=== PATIENT | female | born 1955 | race Caucasian/White ===

== ENCOUNTER 2016-12-16 11:57 | Inpatient (IN) | payer OTHER ==
[~2016-12-16] VITALS: Ht 162.6 cm; Wt 94.8 kg
[~2016-12-16 11:57] MED LIST: ACET-1256 PO; ADVIN50050 INH; ALBU1AER9 INH; ASPI81TA28 PO; Metformin Hcl PO; PRD10 PO; SIMV20TA5 PO; SPRIN INH; TRIA37.5 PO
[2016-12-16] MEDS ORDERED: METHYLPREDNISOLONE 125 MG VIAL IV STA (12:35)
--- NOTE | 2016-12-16 12:39 | EMERGENCY ROOM VISIT NOTE ---
History Report prepared by Nandini: Ray Cleaning Under the Supervision of: Dr. John Nam M.D. First contact with patient: 12:25 Chief Complaint: RESPIRATORY PROBLEMS Stated Complaint: CAN'T BREATHE Nursing Triage Summary: pt presents for eval of SOB, cough...URI symptoms x2 week. History of Present Illness The patient is a 61 year old female with a history of COPD who presents to the Emergency Room with complaints of persistent shortness of breath for the past two weeks. The shortness of breath became much worse today and is exacerbated with exertion. The patient uses a nebulizer at home, which helps briefly. The patient also complains of a cough that produces thick green mucous. She also has a sore throat that started yesterday. The patient and her both caught a cold about two weeks ago. The patient saw an Urgent Care center 10 days ago, where she was started on Zithromax and Prednisone , both of which she finished. The patient was initially feeling better after starting those medications but has since worsened. The patient did not get a flu shot this year. She does not wear oxygen at home for her COPD. She was admitted to the hospital in 2013 for similar symptoms. The patient still smokes. She denies any recent trauma or injury. The patient denies any history of heart disease. The patient denies any fevers, nausea, vomiting, or increased leg pain or swelling. Source of History: patient, spouse/significant other Onset: two weeks ago Position: other (respiratory) Quality: other (short of breath) Timing: other (persistent) Modifying Factors (Relieving): other (nebulizer) Associated Symptoms: + cough, + sorethroat, No fevers, No nausea, No vomiting Review of Systems See HPI for pertinent positives & negatives. A total of 10 systems reviewed and were otherwise negative. Past Medical & Surgical Medical Problems: (1) Asthma (2) COPD (chronic obstructive pulmonary disease) (3) Pneumonia Surgical Problems: (1) History of (2) History of cholecystectomy Old medical records were reviewed. Nurse's notes were reviewed and I agree with. Family History FHx: cancer FHx: heart disease FHx: lung disease Social History Smoking Status: Current Every Day Smoker Alcohol Use: none Marital Status: Occupation Status: unemployed Current/Historical Medications Scheduled Albuterol Hfa (Ventolin Hfa), 2-4 PUFFS INH Q6H Aspirin (Aspirin Ec), 81 MG PO DAILY Fluticasone Prop/Salmeterol (Advair Diskus 500-50 Mcg/Dose), 1 PUFF INH BID Omeprazole (Prilosec), 20 MG PO QAM Allergies Coded Allergies: No Known Allergies (Verified , 08/12/12) Physical Exam Vital Signs Date Time Temp Pulse Resp B/P Pulse Ox O2 Delivery O2 Flow Rate FiO2 12/16/16 14:10 86 20 113/63 94 Nasal Cannula 4.0 12/16/16 13:18 77 22 96/55 97 Nebulizer 12/16/16 13:03 74 20 96 Nasal Cannula 2.0 12/16/16 12:22 94 Nasal Cannula 4.0 12/16/16 12:22 95 Room Air 4.0 12/16/16 12:09 90 12/16/16 11:58 37.0 84 26 105/60 96 Room Air Physical Exam General: Mildly ill appearing older female, wearing supplemental oxygen and coughing on exam. HEENT: Normal cephalic atraumatic. Pupils are equal round and reactive to light. Extraocular movements are intact. Oropharynx is pink with moist mucous membranes. No swelling of the mouth lips or tongue. Neck: Supple with a midline trachea. No meningeal signs or stiffness, no JVD or bruits. No Stridor. Chest: Course breath sounds in the bases bilaterally. No wheezes or rhonchi. No increased work of breathing. Heart: regular rate and rhythm. Abdomen: Soft nontender, nondistended without rebound guarding or rigidity. Extremities: No cyanosis clubbing or edema. No calf tenderness or assymetry Spine/Back. Non tender to palpation. No CVA tenderness Skin: Good turgor without rashes. Neurologic exam: Cranial nerves two through 12 are intact. Motor and sensation are intact and symmetrical throughout. Medical Decision & Procedures ER Provider Diagnostic Interpretation: X-ray results as stated below per interpretation by me and the radiologist: SINGLE VIEW CHEST CLINICAL HISTORY: Atypical chest pain. Dyspnea. FINDINGS: 2 AP, portable, upright chest radiographs are compared to study dated 01/06/2014 and correlated with chest CT dated 01/10/2014. The examination is degraded by portable technique and patient rotation. The heart is enlarged and there is mild atherosclerotic calcification of the thoracic aorta. The pulmonary vasculature is noncongested. Chronic interstitial thickening and emphysema is similar to previous. No airspace consolidation or pleural effusion is identified. No pneumothorax is seen. The skeletal structures are osteopenic. The bony thorax is grossly intact. IMPRESSION: Cardiomegaly and emphysema with no acute cardiopulmonary abnormality. Electronically signed by: Jp Luna M.D. 12/16/2016 1:26 PM Dictated Date/Time: 12/16/2016 1:25 PM Laboratory Results 12/16/16 13:15 Red Blood Count 3.88, Mean Corpuscular Volume 94.1, Mean Corpuscular Hemoglobin 31.7, Mean Corpuscular Hemoglobin Concent 33.7, Mean Platelet Volume 9.8 12/16/16 13:15 Test 12/16/16 12:50 12/16/16 13:15 12/16/16 13:32 Influenza Type A (RT-PCR) Neg for Influ A (NEG) Influenza Type B (RT-PCR) Neg for Influ B (NEG) White Blood Count 17.35 K/uL (4.8-10.8) Red Blood Count 3.88 M/uL (4.2-5.4) Hemoglobin 12.3 g/dL (12.0-16.0) Hematocrit 36.5 % (37-47) Mean Corpuscular Volume 94.1 fL (80-100) Mean Corpuscular Hemoglobin 31.7 pg (25-34) Mean Corpuscular Hemoglobin Concent 33.7 g/dl (32-36) Platelet Count 283 K/uL (130-400) Mean Platelet Volume 9.8 fL (7.4-10.4) RDW Standard Deviation 46.7 fL (36.4-46.3) RDW Coefficient of Variation 13.8 % (11.5-14.5) Neutrophils % (Manual) 70.8 % Lymphocytes % (Manual) 26.5 % Monocytes % (Manual) 2.7 % Neutrophils # (Manual) 12.28 K/uL (1.4-6.5) Total Absolute Neutrophils 12.28 K/uL (1.4-6.5) Lymphocytes # (Manual) 4.60 K/uL (1.2-3.4) Total Absolute Lymphocytes 4.60 K/uL (1.2-3.4) Monocytes # (Manual) 0.47 K/uL (0.11-0.59) Red Blood Cell Morphology Unremarkable Prothrombin Time 10.2 SECONDS (9.0-12.0) Prothromb Time International Ratio 1.0 (0.9-1.1) Activated Partial Thromboplast Time 19.8 SECONDS (21.0-31.0) Partial Thromboplastin Ratio 0.8 Anion Gap 10.0 mmol/L (3-11) Estimated GFR () 56.1 Estimated GFR (Non- 48.4 BUN/Creatinine Ratio 21.3 (10-20) Calcium Level 8.7 mg/dl (8.5-10.1) Total Bilirubin 0.5 mg/dl (0.2-1) Direct Bilirubin 0.1 mg/dl (0-0.2) Aspartate Amino Transf (AST/SGOT) 12 U/L (15-37) Alanine Aminotransferase (ALT/SGPT) 28 U/L (12-78) Alkaline Phosphatase 70 U/L (45-117) Total Creatine Kinase 180 U/L (26-192) Creatine Kinase MB 2.3 ng/ml (0.5-3.6) Creatine Kinase MB Ratio 1.3 (0-3.0) Total Protein 6.9 gm/dl (6.4-8.2) Albumin 3.1 gm/dl (3.4-5.0) Lipase 129 U/L (73-393) Bedside Troponin I 0.000 ng/ml (0-0.045) JX-Amu-Z-Type Natriuretic Peptide 377 pg/ml (0-900) Laboratory studies as stated above per my review. Medications Administered Medications (Trade) Dose Ordered Sig/Karri Route Start Time Stop Time Status Last Admin Dose Admin Methylprednisolone Sodium Succinate (Solu-Medrol IV) 125 mg NOW STAT IV 12/16/16 12:35 12/16/16 12:40 DC 12/16/16 13:17 125 MG Albuterol/ Ipratropium (Duoneb) 12 ml ONE ONCE INH 12/16/16 12:45 12/16/16 12:46 DC 12/16/16 13:03 12 ML ECG Indication: SOB/dyspnea Rate (beats per minute): 75 Rhythm: normal sinus Findings: no acute ischemic change, other (unusual P wave axis, question ectopic atrial rhythm) Change: P wave axis has changed compared to previous EKG dated 06 January 2015 ED Course 1228: Past medical records reviewed. The patient was evaluated in room C11b, and a complete history and physical examination were performed. 1235: Solu-Medrol 125 mg IV, DuoNeb 12 ml INH. 1400: The patient is feeling better but I still recommend that she comes in to the hospital. 1425: Spoke with Dr. Altamirano [facility]. The patient will be evaluated. Medical Decision Differential diagnosis includes COPD exacerbation, bronchitis, pneumonia, CHF, ACS, electrolyte or metabolic abnormality. This patient comes in as described above. She was placed in room C11. She has a history of COPD and has had a cough for a week or so she did get better when she was on antibiotics and steroids but now is worse. She does have some rhonchorous breath sounds is coughing frequently. was sick but recovered. She has no chest pain or pain in her legs. IV access established and she was given albuterol/Atrovent neb over 1 hour she was also given Solu- Medrol 125 mg IV blood work and blood cultures were obtained also order a flu PCR. She was reassessed frequently. He does look and feel better after these measures but I do think at this point she's failed outpatient therapy. Her chest x-ray does not suggest congestive heart failure, pneumonia, or pneumothorax. She's had no acute electrolyte or metabolic abnormalities. I do think she needs to be admitted for exacerbation of her COPD and bronchitis. I have consulted the hospitalist team. Consults Time Called: 1420 Consulting Physician: Dr. Altam[facility]ano [facility] Returned Call: [phone]: Spoke with Dr. Altamirano [facility]. The patient will be evaluated. Impression Primary Impression: COPD exacerbation Additional Impression: Acute bronchitis Scribe Attestation The scribe's documentation has been prepared under my direction and personally reviewed by me in its entirety. I confirm that the note above accurately reflects all work, treatment, procedures, and medical decision making performed by me. Departure Information Dispostion Being Evaluated By Hospitalist Referrals Edwin Valdez M.D. (PCP) Patient Instructions My [facility] Problem Qualifiers
[2016-12-16] MEDS ORDERED: ALBUT/IPRATROP 3MG/0.5MG NEB 3 ML VIAL INH ONE (12:45)
[2016-12-16] MEDS ORDERED: PRLSR20 PO (12:47)
[2016-12-16] MEDS ORDERED: ADVIN50050 INH (12:47)
[2016-12-16] MEDS ORDERED: VNTHFA/IN INH (12:47)
[2016-12-16 13:03] VITALS: PULSE 74; O2SAT 96
--- NOTE | 2016-12-16 13:27 | DIAGNOSTIC IMAGING REPORT ---
SINGLE VIEW CHEST CLINICAL HISTORY: Atypical chest pain. Dyspnea. FINDINGS: 2 AP, portable, upright chest radiographs are compared to study dated 01/06/2014 and correlated with chest CT dated 01/10/2014. The examination is degraded by portable technique and patient rotation. The heart is enlarged and there is mild atherosclerotic calcification of the thoracic aorta. The pulmonary vasculature is noncongested. Chronic interstitial thickening and emphysema is similar to previous. No airspace consolidation or pleural effusion is identified. No pneumothorax is seen. The skeletal structures are osteopenic. The bony thorax is grossly intact. IMPRESSION: Cardiomegaly and emphysema with no acute cardiopulmonary abnormality. Electronically signed by: Jp Luna M.D. 12/16/2016 1:26 PM Dictated Date/Time: 12/16/2016 1:25 PM
[2016-12-16 13:33] LABS: HEMATOCRIT 36.5 % (37-47); MEAN CELL VOLUME 94.1 fL (80-100); MEAN CORPUSCULAR HEMOGLOBIN 31.7 pg (25-34); MEAN CORPUSCULAR HGB CONC 33.7 g/dl (32-36); MEAN PLATELET VOLUME 9.8 fL (7.4-10.4); PLATELET COUNT 283 K/uL (130-400); RED BLOOD COUNT 3.88 M/uL (4.2-5.4); WHITE BLOOD COUNT 17.35 K/uL (4.8-10.8)
[2016-12-16 13:43] LABS: PARTIAL THROMBOPLASTIN RATIO 0.8; PROTHROMBIN TIME (PATIENT) 10.2 SECONDS (9.0-12.0)
[2016-12-16 13:52] LABS: ALT/SGPT 28 U/L (12-78); BLOOD UREA NITROGEN 26 mg/dl (7-18); BUN/CREATININE RATIO 21.3 (10-20); CALCIUM 8.7 mg/dl (8.5-10.1); CARBON DIOXIDE 27 mmol/L (21-32); CHLORIDE 104 mmol/L (98-107); COMPLETE YES; GLUCOSE 117 mg/dl (70-99); LYMPHOCYTE % 26.5 %; NEUTROPHILS % 70.8 %; SODIUM 141 mmol/L (136-145)
[2016-12-16 13:56] LABS: ALKALINE PHOSPHATASE 70 U/L (45-117); AST/SGOT 12 U/L (15-37); CKMB/CK RATIO 1.3 (0-3.0)
[2016-12-16 14:48] LABS: INFLUENZA A PCR Neg for Influ A (NEG); INFLUENZA B PCR Neg for Influ B (NEG)
[2016-12-16] MEDS ORDERED: ALBUT/IPRATROP 3MG/0.5MG NEB 3 ML VIAL INH PRN (15:30)
[2016-12-16] MEDS ORDERED: PNEUMOCOCCAL POLYSACCHARIDES 25 MCG/0.5 ML VIAL/SYR IM. ONE (15:30)
[2016-12-16] MEDS ORDERED: ACETAMINOPHEN 325 MG TAB PO PRN (15:30)
[2016-12-16] MEDS ORDERED: ALUMINUM/MAGNESIUM/SIMETH (MAALOX MAX) 30 ML UDC PO PRN (15:30)
[2016-12-16] MEDS ORDERED: MAGNESIUM HYDROXIDE SUSP 30 ML UDC PO PRN (15:30)
[2016-12-16] MEDS ORDERED: ZOLPIDEM TARTRATE 5 MG TAB PO PRN (15:30)
[2016-12-16] MEDS ORDERED: ONDANSETRON INJ 2 MG/ML 2 ML VIAL IV PRN (15:30)
[2016-12-16] MEDS ORDERED: INFLUENZA VIRUS QUAD VACCINE 0.5 ML SYR IM. ONE (15:30)
[2016-12-16] MEDS ORDERED: POLYETHYLENE (MIRALAX) 17 GM PACK PO PRN (16:00)
[2016-12-16] MEDS: ALBUT/IPRATROP 3MG/0.5MG NEB 3 ML VIAL INH SCH ×2 (16:00→20:03)
[2016-12-16] MEDS ORDERED: PATIENT'S HEIGHT AND/OR WEIGHT NEEDED SCH (16:00)
[2016-12-16 16:15] VITALS: BP 103/71; PULSE 85; TEMP 36.3; O2SAT 94; Ht 162.6 cm; Wt 94.8 kg
[2016-12-16] MEDS ORDERED: INFLUENZA ADMINISTRATION CHARGE ONE (16:45)
[2016-12-16] MEDS ORDERED: PNEUMOCOCCAL ADMINISTRATION CHARGE ONE (16:45)
[2016-12-16 16:55] VITALS: PULSE 83; O2SAT 97
[2016-12-16] MEDS: LEVOFLOXACIN / D5W 750 MG in PREMIXED IN D5W 150 ML IV SCH (17:54)
[2016-12-16] MEDS ORDERED: NURSING VERBAL MED ORDER ONE (19:30)
[2016-12-16 20:03] VITALS: PULSE 88; O2SAT 95
[2016-12-16] MEDS: NICOTINE 21 MG/24 HR TDSY TD SCH (20:23)
[2016-12-16] MEDS: FLUTICASONE/SALMETEROL (ADVAIR) 500/50 INH 14 PUFF INH SCH (20:30)
[2016-12-16] MEDS: ENOXAPARIN 40 MG/0.4 ML SYR SQ SCH (20:30)
[2016-12-16] MEDS: METHYLPREDNISOLONE IV 60 MG in SYRINGE 0 ML IV SCH (21:28)
[2016-12-16 22:58] VITALS: BP 105/66; PULSE 77; TEMP 36.8; O2SAT 97
--- NOTE | 2016-12-16 23:56 | History and Physical ---
History & Physical Date & Time of Service: Dec 16, 2016 at 15:00 Chief Complaint: Copd Exacerbation Primary Care Physician: Edwin Valdez M.D. History of Present Illness Source: patient, spouse Pt is a 61 yo female with a h/o COPD, current tobacco use/smoking, obesity, GERD , and FRANCISCA, who presents to the ER with progressively worsening SOB and productive cough. SHe and her both started having respiratory symptoms about 2 weeks ago. Her got better but she went to Urgent Care and was Rxd Z-pack and a 10 day course of prednisone which she completed 5 days ago. She only felt marginally better in the beginning of that course and then continued to worsen. She could only walk about 10 feet without having to stop to catch her breath. She did continue to smoke cigarettes until the day prior to admission. In the ER she was given continuous 1 hour nebulizer treatment and IV Solu Medrol. She did have a leukocytosis of 17k, CXR showed emphysematous changes but no PNA. She was not significantly hypoxic but because she was wheezing and working hard to breathe requiring continuous nebs, she was admitted for her AECOPD. Past Medical/Surgical History Medical Problems: COPD GERD Carotid artery stenosis Current smoker Obesity Surgical Problems: History of History of cholecystectomy Tonsillectomy Family History FHx: cancer FHx: heart disease FHx: lung disease Mom in her early 70s from [place] Dad from cardiac issues in his early 60s Brother from hepatitis Sister from complications from DMII 2 Sons are healthy Social History Smoking Status: Current Every Day Smoker (1 PPD) Alcohol Use: none Drug Use: marijuana (daily smokes marijuana) Marital Status: Housing status: lives with family Occupational Status: unemployed Immunizations History of Influenza Vaccine: Yes Influenza Vaccine Date: Jul 20, 2009 History of Tetanus Vaccine?: No History of Pneumococcal: Yes Pneumococcal Date: Jan 18, 2005 History of Hepatitis B Vaccine: No Multi-Drug Resistant Organisms History of MDRO: No Allergies Coded Allergies: No Known Allergies (Verified , 08/12/12) Home Medications Scheduled Albuterol Hfa (Ventolin Hfa), 2-4 PUFFS INH Q6H Aspirin (Aspirin Ec), 81 MG PO DAILY Fluticasone Prop/Salmeterol (Advair Diskus 500-50 Mcg/Dose), 1 PUFF INH BID Omeprazole (Prilosec), 20 MG PO QAM Review of Systems Constitutional: No fever Eyes: No problem reported ENT: + sore throat Respiratory: + cough, + dyspnea on exertion, + sputum, + wheezing Cardiovascular: No chest pain, No orthopnea Abdomen: + nausea, + pain, + vomiting Musculoskeletal: No problem reported Genitourinary - Female: No dysuria Neurologic: No problem reported Psychiatric: No problem reported Endocrine: No problem reported Hematologic / Lymphatic: No problem reported Integumentary: No problem reported Allergic / Immunologic: No problem reported Physical Exam Vital Signs Date Time Temp Pulse Resp B/P Pulse Ox O2 Delivery O2 Flow Rate FiO2 12/16/16 22:58 36.8 77 16 105/66 97 Nasal Cannula 2.0 12/16/16 20:03 88 20 95 Nasal Cannula 2.0 12/16/16 18:51 Nasal Cannula 2.0 12/16/16 16:55 83 20 97 Nasal Cannula 2.0 12/16/16 16:15 36.3 85 16 103/71 94 Nasal Cannula 4.0 12/16/16 14:10 86 20 113/63 94 Nasal Cannula 4.0 12/16/16 13:18 77 22 96/55 97 Nebulizer 12/16/16 13:03 74 20 96 Nasal Cannula 2.0 12/16/16 12:22 94 Nasal Cannula 4.0 12/16/16 12:22 95 Room Air 4.0 12/16/16 12:09 90 12/16/16 11:58 37.0 84 26 105/60 96 Room Air General Appearance: WD/WN, no apparent distress, + obese Head: normocephalic, atraumatic Eyes: normal inspection, EOMI, sclerae normal ENT: hearing grossly normal, pharynx normal Neck: supple, no adenopathy, trachea midline Respiratory/Chest: chest non-tender, no accessory muscle use, + decreased breath sounds (throughout with diffuse faint wheezes) Cardiovascular: regular rate, rhythm, no edema, no murmur Abdomen/GI: normal bowel sounds, non tender, soft Back: normal inspection, no CVA tenderness, no muscle spasm Extremities/Musculoskelatal: no calf tenderness, no pedal edema Neurologic/Psych: alert, normal mood/affect, normal reflexes, oriented x 3 Skin: normal color, warm/dry, no rash Diagnostics Laboratory Results Results Past 24 Hours Test 12/16/16 12:35 12/16/16 12:50 12/16/16 13:15 12/16/16 13:32 Range/Units Creatine Kinase MB Ratio 1.3 0-3.0 Influenza Type A (RT-PCR) Neg for Influ A NEG Influenza Type B (RT-PCR) Neg for Influ B NEG White Blood Count 17.35 4.8-10.8 K/uL Red Blood Count 3.88 4.2-5.4 M/uL Hemoglobin 12.3 12.0-16.0 g/dL Hematocrit 36.5 37-47 % Mean Corpuscular Volume 94.1 80-100 fL Mean Corpuscular Hemoglobin 31.7 25-34 pg Mean Corpuscular Hemoglobin Concent 33.7 32-36 g/dl Platelet Count 283 130-400 K/uL Mean Platelet Volume 9.8 7.4-10.4 fL RDW Standard Deviation 46.7 36.4-46.3 fL RDW Coefficient of Variation 13.8 11.5-14.5 % Neutrophils % (Manual) 70.8 % Lymphocytes % (Manual) 26.5 % Monocytes % (Manual) 2.7 % Neutrophils # (Manual) 12.28 1.4-6.5 K/uL Total Absolute Neutrophils 12.28 1.4-6.5 K/uL Lymphocytes # (Manual) 4.60 1.2-3.4 K/uL Total Absolute Lymphocytes 4.60 1.2-3.4 K/uL Monocytes # (Manual) 0.47 0.11-0.59 K/uL Red Blood Cell Morphology Unremarkable Prothrombin Time 10.2 9.0-12.0 SECONDS Prothromb Time International Ratio 1.0 0.9-1.1 Activated Partial Thromboplast Time 19.8 21.0-31.0 SECONDS Partial Thromboplastin Ratio 0.8 Sodium Level 141 136-145 mmol/L Potassium Level 4.0 3.5-5.1 mmol/L Chloride Level 104 98-107 mmol/L Carbon Dioxide Level 27 21-32 mmol/L Anion Gap 10.0 3-11 mmol/L Blood Urea Nitrogen 26 7-18 mg/dl Creatinine 1.20 0.60-1.20 mg/dl Estimated GFR () 56.1 Estimated GFR (Non- 48.4 BUN/Creatinine Ratio 21.3 10-20 Random Glucose 117 70-99 mg/dl Calcium Level 8.7 8.5-10.1 mg/dl Total Bilirubin 0.5 0.2-1 mg/dl Direct Bilirubin 0.1 0-0.2 mg/dl Aspartate Amino Transf (AST/SGOT) 12 15-37 U/L Alanine Aminotransferase (ALT/SGPT) 28 12-78 U/L Alkaline Phosphatase 70 45-117 U/L Total Creatine Kinase 180 26-192 U/L Creatine Kinase MB 2.3 0.5-3.6 ng/ml Total Protein 6.9 6.4-8.2 gm/dl Albumin 3.1 3.4-5.0 gm/dl Lipase 129 73-393 U/L Bedside Troponin I 0.000 0-0.045 ng/ml UC-Vmm-L-Type Natriuretic Peptide 377 0-900 pg/ml Microbiology Results 12/16/16 Blood Culture, Received Pending 12/16/16 Blood Culture, Received Pending 12/16/16 Gram Stain - Final, Resulted 12/16/16 Sputum Culture, Resulted Pending Diagnostic Radiology CXR: Cardiomegaly and emphysema with no acute cardiopulmonary abnormality. EKG NSR, low voltage, short MI, no ischemia Impression Assessment and Plan Pt is a 61 yo female with a h/o COPD, current tobacco use/smoking, obesity, GERD , and FRANCISCA, who presents to the ER with progressively worsening SOB and productive cough, admitted for AECOPD. Tachypneic, with leukocytosis with SIRS. -continue supplemental O2 and wean as able to -nebs for bronchodilators, continue home Advair -give Levaquin 750mg daily x 7 day course -continue IV SOlu Medrol and taper back to po prednisone when improving -collect Sputum cx and follow BCxs -follow CBC, PRP -consult Pulmonology to get established -counseled extensively on smoking cessation from cigarettes as well as marijuana FRANCISCA-on ASA, should be on statin -start statin tomorrow after discussion with her about it GERD-stable -continue PPI Proph-Lovenox, PPI Dispo-FULL CODE Level of Care Med/Surg Advanced Directives Existing Living Will: No Existing Power of [employer] Pol[employer] Operator: No VTE Prophylaxis VTE Risk Assessment Done? Y/N: Yes Risk Level: Low Additional Copies To Edwin Valdez M.D.
[2016-12-17] VITALS (8 sets, daily range): BP systolic 103–150; BP diastolic 64–84; PULSE 85–98; TEMP 36.4–36.7; O2SAT 93–98
[2016-12-17] MEDS: METHYLPREDNISOLONE IV 60 MG in SYRINGE 0 ML IV SCH ×3 (05:43→20:26)
[2016-12-17 06:34] LABS: BASO % 0.1 %; BASO ABS # 0.02 K/uL (0-0.2); COMPLETE YES; HEMATOCRIT 35.5 % (37-47); IG% 0.8 %; LYMPH ABS # 1.25 K/uL (1.2-3.4); MEAN CELL VOLUME 93.4 fL (80-100); MEAN CORPUSCULAR HEMOGLOBIN 31.1 pg (25-34); MEAN CORPUSCULAR HGB CONC 33.2 g/dl (32-36); MEAN PLATELET VOLUME 9.9 fL (7.4-10.4); MONO % 1.2 %; NEUT % 89.9 %; PLATELET COUNT 267 K/uL (130-400); WHITE BLOOD COUNT 15.65 K/uL (4.8-10.8)
[2016-12-17 07:03] LABS: BUN/CREATININE RATIO 26.4 (10-20); CALCIUM 8.9 mg/dl (8.5-10.1); CREATININE 1.1 mg/dl (0.60-1.20); MAGNESIUM 2.2 mg/dl (1.8-2.4); POTASSIUM 4.4 mmol/L (3.5-5.1)
[2016-12-17] MEDS: ALBUT/IPRATROP 3MG/0.5MG NEB 3 ML VIAL INH SCH ×4 (07:48→19:16)
[2016-12-17] MEDS: FLUTICASONE/SALMETEROL (ADVAIR) 500/50 INH 14 PUFF INH SCH ×2 (08:29→20:24)
[2016-12-17] MEDS: ASPIRIN 81 MG ECTAB PO SCH (08:30)
[2016-12-17] MEDS: PANTOprazole SOD 40 MG TAB PO SCH (08:30)
[2016-12-17] MEDS: NICOTINE 21 MG/24 HR TDSY TD SCH (08:31)
--- NOTE | 2016-12-17 10:45 | Hospitalist Progress Note ---
Hospitalist Progress Note Date of Service Dec 17, 2016. Subjective Pt evaluation today including: conversation w/ patient, physical exam, lab review, review of inpatient medication list Voiding: no voiding problems Feeling a bit better, still with dyspnea with ambulating to BR but slightly improved. Still coughing a lot and had trouble sleeping Constitutional: No fever Respiratory: + cough, + dyspnea on exertion Cardiovascular: No chest pain Abdomen: No diarrhea, No nausea, No pain Skin: No rash Objective Vital Signs Date Time Temp Pulse Resp B/P Pulse Ox O2 Delivery O2 Flow Rate FiO2 12/17/16 07:48 90 20 98 Nasal Cannula 2.0 12/17/16 07:45 93 Nasal Cannula 1.0 12/17/16 07:07 36.7 85 20 150/84 94 Nasal Cannula 2.0 12/16/16 23:30 Nasal Cannula 2.0 12/16/16 22:58 36.8 77 16 105/66 97 Nasal Cannula 2.0 12/16/16 20:03 88 20 95 Nasal Cannula 2.0 12/16/16 18:51 Nasal Cannula 2.0 12/16/16 16:55 83 20 97 Nasal Cannula 2.0 12/16/16 16:15 36.3 85 16 103/71 94 Nasal Cannula 4.0 12/16/16 14:10 86 20 113/63 94 Nasal Cannula 4.0 12/16/16 13:18 77 22 96/55 97 Nebulizer 12/16/16 13:03 74 20 96 Nasal Cannula 2.0 12/16/16 12:22 94 Nasal Cannula 4.0 12/16/16 12:22 95 Room Air 4.0 12/16/16 12:09 90 12/16/16 11:58 37.0 84 26 105/60 96 Room Air Physical Exam General Appearance: WD/WN, no apparent distress, + obese Eyes: normal inspection, sclerae normal ENT: pharynx normal (no thrush) Neck: trachea midline Respiratory/Chest: no respiratory distress, no accessory muscle use, + decreased breath sounds (throughout but improved from yesterday, no wheezes) Cardiovascular: regular rate, rhythm, no edema, no gallop, no murmur Abdomen: normal bowel sounds, non tender, soft (and obese) Extremities: non-tender, normal inspection, no pedal edema, no calf tenderness Neurologic/Psychiatric: alert, normal mood/affect, oriented x 3 Skin: normal color, warm/dry, no rash Lymphatic: no adenopathy Laboratory Results Last 24 Hours Test 12/16/16 12:35 12/16/16 12:50 12/16/16 13:15 12/16/16 13:32 Creatine Kinase MB Ratio 1.3 Influenza Type A (RT-PCR) Neg for Influ A Influenza Type B (RT-PCR) Neg for Influ B White Blood Count 17.35 K/uL Red Blood Count 3.88 M/uL Hemoglobin 12.3 g/dL Hematocrit 36.5 % Mean Corpuscular Volume 94.1 fL Mean Corpuscular Hemoglobin 31.7 pg Mean Corpuscular Hemoglobin Concent 33.7 g/dl Platelet Count 283 K/uL Mean Platelet Volume 9.8 fL RDW Standard Deviation 46.7 fL RDW Coefficient of Variation 13.8 % Neutrophils % (Manual) 70.8 % Lymphocytes % (Manual) 26.5 % Monocytes % (Manual) 2.7 % Neutrophils # (Manual) 12.28 K/uL Total Absolute Neutrophils 12.28 K/uL Lymphocytes # (Manual) 4.60 K/uL Total Absolute Lymphocytes 4.60 K/uL Monocytes # (Manual) 0.47 K/uL Red Blood Cell Morphology Unremarkable Prothrombin Time 10.2 SECONDS Prothromb Time International Ratio 1.0 Activated Partial Thromboplast Time 19.8 SECONDS Partial Thromboplastin Ratio 0.8 Sodium Level 141 mmol/L Potassium Level 4.0 mmol/L Chloride Level 104 mmol/L Carbon Dioxide Level 27 mmol/L Anion Gap 10.0 mmol/L Blood Urea Nitrogen 26 mg/dl Creatinine 1.20 mg/dl Estimated GFR () 56.1 Estimated GFR (Non- 48.4 BUN/Creatinine Ratio 21.3 Random Glucose 117 mg/dl Calcium Level 8.7 mg/dl Total Bilirubin 0.5 mg/dl Direct Bilirubin 0.1 mg/dl Aspartate Amino Transf (AST/SGOT) 12 U/L Alanine Aminotransferase (ALT/SGPT) 28 U/L Alkaline Phosphatase 70 U/L Total Creatine Kinase 180 U/L Creatine Kinase MB 2.3 ng/ml Total Protein 6.9 gm/dl Albumin 3.1 gm/dl Lipase 129 U/L Bedside Troponin I 0.000 ng/ml ZC-Qbm-C-Type Natriuretic Peptide 377 pg/ml Test 12/17/16 06:20 White Blood Count 15.65 K/uL Red Blood Count 3.80 M/uL Hemoglobin 11.8 g/dL Hematocrit 35.5 % Mean Corpuscular Volume 93.4 fL Mean Corpuscular Hemoglobin 31.1 pg Mean Corpuscular Hemoglobin Concent 33.2 g/dl Platelet Count 267 K/uL Mean Platelet Volume 9.9 fL Neutrophils (%) (Auto) 89.9 % Lymphocytes (%) (Auto) 8.0 % Monocytes (%) (Auto) 1.2 % Eosinophils (%) (Auto) 0.0 % Basophils (%) (Auto) 0.1 % Neutrophils # (Auto) 14.07 K/uL Lymphocytes # (Auto) 1.25 K/uL Monocytes # (Auto) 0.19 K/uL Eosinophils # (Auto) 0.00 K/uL Basophils # (Auto) 0.02 K/uL RDW Standard Deviation 45.9 fL RDW Coefficient of Variation 13.5 % Immature Granulocyte % (Auto) 0.8 % Immature Granulocyte # (Auto) 0.12 K/uL Sodium Level 139 mmol/L Potassium Level 4.4 mmol/L Chloride Level 104 mmol/L Carbon Dioxide Level 25 mmol/L Anion Gap 10.0 mmol/L Blood Urea Nitrogen 29 mg/dl Creatinine 1.10 mg/dl Est Creatinine Clear Calc Drug Dose 59.2 ml/min Estimated GFR () 62.3 Estimated GFR (Non- 53.8 BUN/Creatinine Ratio 26.4 Random Glucose 192 mg/dl Calcium Level 8.9 mg/dl Magnesium Level 2.2 mg/dl Assessment and Plan Pt is a 61 yo female with a h/o COPD, current tobacco use/smoking, obesity, GERD , and FRANCISCA, who presents to the ER with progressively worsening SOB and productive cough, admitted for AECOPD. Tachypneic, with leukocytosis with SIRS. -continue supplemental O2 and wean as able to -nebs for bronchodilators, continue home Advair -start Mucinex -give Levaquin 750mg daily x 7 day course -continue IV SOlu Medrol and taper back to po prednisone when improving -collect Sputum cx and follow BCxs -follow CBC, PRP -consult Pulmonology to get established-appreciate recommendations -counseled extensively on smoking cessation from cigarettes as well as marijuana -continue Nicotine patch FRANCISCA-on ASA, should be on statin -check fasting lipid panel tomorrow -start statin tomorrow after results of lipid panel return-pt agreeable GERD-stable -continue PPI Proph-Lovenox, PPI Dispo-FULL CODE
--- NOTE | 2016-12-17 10:53 | PULMONARY CONSULTATION ---
DATE OF CONSULTATION: 12/17/2016 DATE OF CONSULTATION: 12/17/2016. HISTORY OF PRESENT ILLNESS: The patient is a very pleasant 61-year-old female followed by Dr. Valdez for mild chronic obstructive lung disease. She has actually been fairly stable, able do her chores at home without difficulty. She is able to go shopping with no significant complaints. She is still smoking a pack of cigarettes on a daily basis and has been smoking for almost 50 years. Nonetheless, her son's girlfriend had a respiratory tract infection about 2 weeks ago characterized by a cough, rhinitis and mild sore throat. Several days after visiting with that individual the patient's became ill with the same symptoms. A week ago last Sunday, which was about 8 days ago the patient developed the same symptoms of cough associated with shortness of breath, rhinitis and mild sore throat. She was seen at urgent care center 11 days ago, was given Zithromax and prednisone taper. She states it really did not help very much. She did feel slightly better but then developed worsening shortness of breath associated with cough producing some thick sputum. She was then seen in the hospital Emergency Room by Dr. John Nam. Oxygen saturation at the time of admission through the ER was 96% on room air with no evidence of hypoxemia. She did have significant cough with no wheezing noted. She had leukocytosis but just finished prednisone. She was admitted to the hospital now and states she feels considerably improved. I have been asked to evaluate the patient from a pulmonary standpoint. The patient is very comfortable now and states she is just about back to baseline already. She continues to have cough producing some thick sputum which is purulent appearing. She denies aspiration. Travel history and environmental history is unremarkable. She does have a dog at home, but it has not been ill. Review of systems is unremarkable. She had a similar illness back in 2013 in December which when she was hospitalized here. She had a CAT scan of the chest done at that time that showed multifocal interstitial infiltrates. Subsequently, a CT scan in 2014 revealed significant bilateral carotid artery stenosis with left external carotid artery stenosis and vertebral artery stenosis. It also showed a 4 mm nodule in the left apex. I do not see that that has been repeated at this point. She had a blood gas at that time that revealed a pH 7.47, pCO2 of 40, pO2 of 151. REVIEW OF SYSTEMS: Otherwise, unremarkable. FAMILY HISTORY: Travel history and environmental histories have been unremarkable. PAST MEDICAL HISTORY: Significant for chronic obstructive lung disease, GERD, carotid artery stenosis, left apical pulmonary nodule, obesity, carotid artery obstruction, Meniere's disease. PAST SURGICAL HISTORY: , cholecystectomy and tonsillectomy. FAMILY HISTORY: Father from coronary artery disease at age 63. Mother at age 72 from an [place]. One brother from hepatitis. She has 2 sons who are healthy although they smoke. Sister is from diabetes mellitus. She does have 1 sister who has had amputations lower extremities and sister's boyfriend is blind. SOCIAL HISTORY: She has been smoking a pack a day since age 16. She smokes marijuana every day. She is , lives with her . 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 She walks just 2 doors down from her home about 1 block and cares for her sisters boyfriend who is blind. ALLERGIES: None. She has not been in the service. She does use Advair 500/50 one inhalation b.i.d. at home twice daily, Prilosec, uses Ventolin 2 puffs 4 times a day just p.r.n. She has been using Ventolin over the last 4 days, almost every hour. PHYSICAL EXAMINATION: VITAL SIGNS: Stable. Blood pressure 150/84, oxygen saturation 94% on 2 liters and she is afebrile. Her weight is 94.8 kilograms. She was 89.2 kilograms on 01/12/2014. HEAD, EYES, EARS, NOSE, AND THROAT: Unremarkable. No thrush is noted. No adenopathy is noted anywhere. Carotid upstroke is decreased. Thyroid not palpable. Expansion of the thorax is actually fairly good with deep inspiration. No axillary or supraclavicular adenopathy noted. HEART: Regular rate and rhythm. No murmurs are heard. LUNGS: Clear with decreased breath sounds bilaterally. No fremitus is noted. There is no dullness to percussion. ABDOMEN: Soft, nontender. She has no cyanosis, clubbing or edema. EKG shows normal sinus rhythm with right atrial enlargement, low voltage. Chest x-ray reveals some thickening of the interstitium with mild cardiomegaly. I do not detect any nodules. She is rotated as well. Changes consistent with hyperinflation are noted. There is osteopenia but no gross lesions in particular of the left apex are noted. White count 15.6, hemoglobin 11.8, hematocrit 35.5% with platelet count 267,000. PRP looks good and glucose 192. BNP was normal. Troponin is unremarkable. Lipase was normal as is the coagulation profile. PCR for influenza A and B is negative. Sputum gram stain from yesterday revealed some epithelial cells, moderate number of inflammatory cells with gram positive coccus and gram negative bacilli, but is probably a contaminated specimen. IMPRESSION: 1. Chronic obstructive pulmonary disease with exacerbation. 2. Pulmonary nodule left upper lobe noted by CT of the carotids in 2015 was about 4 mm in the left apex. 3. Emphysema with continued tobacco use. I believe the chronic obstructive pulmonary disease exacerbation at this point was probably set off from a viral infection. RECOMMENDATION: 1. Continue with her present medications. I would taper the steroids fairly rapidly since she has a nice response to that. 2. Continue on the Advair. I think the Levaquin could be changed to 500 mg p.o. daily, but I would continue on the DuoNeb 4 times a day. I discussed the proper use of inhalers with her at length and she understands. When she is discharged she could be sent home on Combivent Respimat 1 inhalation b.i.d. along with the Advair. 3. In the next 24 to 48 hour I would suggest obtaining a low dose CT of the chest particularly to assess the 4 mm left upper lobe nodule noted in 2015. 4. Good thrombosis prophylaxis, SCDs and continue on the Lovenox. Overall she is stable.
[2016-12-17] MEDS ORDERED: GUAIFENESIN 600 MG TABCR PO ONE (12:00)
[2016-12-17] MEDS: LEVOFLOXACIN / D5W 750 MG in PREMIXED IN D5W 150 ML IV SCH (17:31)
[2016-12-17] MEDS: GUAIFENESIN 600 MG TABCR PO SCH (20:25)
[2016-12-17] MEDS: ENOXAPARIN 40 MG/0.4 ML SYR SQ SCH (20:26)
[2016-12-18] MEDS: METHYLPREDNISOLONE IV 60 MG in SYRINGE 0 ML IV SCH ×2 (05:38→20:50)
[2016-12-18 07:23] LABS: BASO % 0.1 %; BASO ABS # 0.02 K/uL (0-0.2); COMPLETE YES; HEMATOCRIT 35.7 % (37-47); IG% 1.3 %; LYMPH % 6.3 %; LYMPH ABS # 1.36 K/uL (1.2-3.4); MEAN CELL VOLUME 93.7 fL (80-100); MEAN CORPUSCULAR HEMOGLOBIN 31.2 pg (25-34); MEAN CORPUSCULAR HGB CONC 33.3 g/dl (32-36); MEAN PLATELET VOLUME 10.1 fL (7.4-10.4); MONO % 3.5 %; NEUT % 88.8 %; PLATELET COUNT 279 K/uL (130-400); RED BLOOD COUNT 3.81 M/uL (4.2-5.4); WHITE BLOOD COUNT 21.49 K/uL (4.8-10.8)
[2016-12-18 07:47] VITALS: PULSE 93; O2SAT 93
[2016-12-18] MEDS: ALBUT/IPRATROP 3MG/0.5MG NEB 3 ML VIAL INH SCH ×2 (07:47→11:50)
[2016-12-18 07:50] LABS: ALT/SGPT 25 U/L (12-78); AST/SGOT 8 U/L (15-37); BLOOD UREA NITROGEN 31 mg/dl (7-18); BUN/CREATININE RATIO 24.1 (10-20); CALCIUM 8.8 mg/dl (8.5-10.1); CARBON DIOXIDE 24 mmol/L (21-32); CHLORIDE 107 mmol/L (98-107); GLUCOSE 241 mg/dl (70-99); MAGNESIUM 2.5 mg/dl (1.8-2.4); SODIUM 142 mmol/L (136-145)
[2016-12-18 07:54] LABS: ALKALINE PHOSPHATASE 67 U/L (45-117); CHOLESTEROL 208 mg/dl (0-200); CHOLESTEROL/HDL RATIO 3.8; HDL CHOLESTEROL 55 mg/dl; LDL CHOLESTEROL CALCULATED 130 mg/dl; TRIGLYCERIDES 117 mg/dl (0-150); VERY LOW DENSITY LIPOPROT CALC 23 mg/dl
[2016-12-18 08:22] VITALS: BP 103/68; PULSE 65; TEMP 36.8; O2SAT 96
[2016-12-18 08:32] VITALS: O2SAT 96
[2016-12-18] MEDS: PANTOprazole SOD 40 MG TAB PO SCH (08:40)
[2016-12-18] MEDS: GUAIFENESIN 600 MG TABCR PO SCH ×2 (08:40→20:51)
[2016-12-18] MEDS: ASPIRIN 81 MG ECTAB PO SCH (08:40)
[2016-12-18] MEDS: NICOTINE 21 MG/24 HR TDSY TD SCH (08:41)
[2016-12-18] MEDS: FLUTICASONE/SALMETEROL (ADVAIR) 500/50 INH 14 PUFF INH SCH ×2 (08:41→20:50)
[2016-12-18 11:50] VITALS: PULSE 88; O2SAT 97
--- NOTE | 2016-12-18 12:11 | Progress Note ---
Subjective Date of Service: Dec 18, 2016. Subjective Pt evaluation today including: conversation w/ patient, physical exam, chart review, lab review, review of studies, review of inpatient medication list Problem List Medical Problems: (1) Acute bronchitis Status: Acute (2) COPD exacerbation Status: Acute Review of Systems Constitutional: No chills, No fever Respiratory: + dyspnea on exertion, No cough, No shortness of breath, No sputum , No wheezing Cardiac: No chest pain Abdomen: No constipation, No diarrhea, No nausea, No pain, No vomiting Musculoskeletal: No joint pain, No muscle pain Female : No dysuria, No urinary frequency Objective Vital Signs Date Time Temp Pulse Resp B/P Pulse Ox O2 Delivery O2 Flow Rate FiO2 12/18/16 11:50 88 12 97 Room Air 12/18/16 08:32 96 Room Air 12/18/16 08:22 36.8 65 20 103/68 96 Room Air 12/18/16 08:01 Room Air 12/18/16 07:47 93 12 93 Nasal Cannula 0.5 12/17/16 23:20 Room Air 12/17/16 22:52 36.7 85 18 104/64 93 Room Air 12/17/16 19:16 92 16 96 Nasal Cannula 0.5 12/17/16 15:45 Nasal Cannula 1.0 12/17/16 15:40 36.4 98 18 103/71 94 Nasal Cannula 1.0 12/17/16 15:19 86 20 96 Nasal Cannula 1.0 Physical Exam General Appearance: WD/WN, no apparent distress Neck: supple, no adenopathy Respiratory/Chest: chest non-tender, lungs clear, + decreased breath sounds Cardiovascular: no edema, no gallop Abdomen: non tender, soft Neurologic/Psychiatric: alert, oriented x 3 Laboratory Results Last 24 Hours Test 12/18/16 07:03 White Blood Count 21.49 K/uL Red Blood Count 3.81 M/uL Hemoglobin 11.9 g/dL Hematocrit 35.7 % Mean Corpuscular Volume 93.7 fL Mean Corpuscular Hemoglobin 31.2 pg Mean Corpuscular Hemoglobin Concent 33.3 g/dl Platelet Count 279 K/uL Mean Platelet Volume 10.1 fL Neutrophils (%) (Auto) 88.8 % Lymphocytes (%) (Auto) 6.3 % Monocytes (%) (Auto) 3.5 % Eosinophils (%) (Auto) 0.0 % Basophils (%) (Auto) 0.1 % Neutrophils # (Auto) 19.07 K/uL Lymphocytes # (Auto) 1.36 K/uL Monocytes # (Auto) 0.76 K/uL Eosinophils # (Auto) 0.00 K/uL Basophils # (Auto) 0.02 K/uL RDW Standard Deviation 47.2 fL RDW Coefficient of Variation 13.9 % Immature Granulocyte % (Auto) 1.3 % Immature Granulocyte # (Auto) 0.28 K/uL Sodium Level 142 mmol/L Potassium Level 4.0 mmol/L Chloride Level 107 mmol/L Carbon Dioxide Level 24 mmol/L Anion Gap 11.0 mmol/L Blood Urea Nitrogen 31 mg/dl Creatinine 1.30 mg/dl Est Creatinine Clear Calc Drug Dose 50.1 ml/min Estimated GFR () 50.9 Estimated GFR (Non- 43.9 BUN/Creatinine Ratio 24.1 Random Glucose 241 mg/dl Calcium Level 8.8 mg/dl Magnesium Level 2.5 mg/dl Total Bilirubin 0.2 mg/dl Direct Bilirubin < 0.1 mg/dl Aspartate Amino Transf (AST/SGOT) 8 U/L Alanine Aminotransferase (ALT/SGPT) 25 U/L Alkaline Phosphatase 67 U/L Total Protein 6.8 gm/dl Albumin 3.0 gm/dl Triglycerides Level 117 mg/dl Cholesterol Level 208 mg/dl HDL Cholesterol 55 mg/dl LDL Cholesterol, Calculated 130 mg/dl VLDL Cholesterol, Calculated 23 mg/dl Cholesterol/HDL Ratio 3.8 Assessment and Plan Pt is a 61 yo female with a h/o COPD, current tobacco use/smoking, obesity, GERD , and FRANCISCA, who presents to the ER with progressively worsening SOB and productive cough, admitted for AECOPD. Tachypneic, with leukocytosis with SIRS. -continue supplemental O2 and wean as able to -nebs for bronchodilators, continue home Advair -start Mucinex -give Levaquin 750mg daily x 7 day course -continue IV SOlu Medrol and taper back to po prednisone when improving -collect Sputum cx and follow BCxs -follow CBC, PRP -consult Pulmonology to get established-appreciate recommendations -counseled extensively on smoking cessation from cigarettes as well as marijuana -continue Nicotine patch FRANCISCA-on ASA mildly elev total chol GERD-stable -continue PPI Proph-Lovenox, PPI Dispo-FULL CODE
[2016-12-18] MEDS: IPRATROPIUM BROMIDE/ALBUTEROL respimat INH INH SCH ×3 (12:56→20:50)
--- NOTE | 2016-12-18 13:27 | PULMONARY PROGRESS NOTE ---
DATE: 12/18/2016 TIME: 12:55 p.m. SUBJECTIVE: The patient's breathing is generally improved. She is still more short of breath than normal. She is still coughing. Her mucus is still green, but it is not quite as dark as it had been previously. She has been up walking to the bathroom without too much difficulty. In general, she feels much better. OBJECTIVE: GENERAL: The patient appears comfortable at rest. She looks flushed. She states this is from the steroids. It happened to her when she was on steroids a few years ago. Temperature is 36.8. HEENT: Pupils were reactive. ENT was otherwise unremarkable. HEART: Heart rate is 88 per minute. Rhythm is regular. Blood pressure 103/68. LUNGS: The breath sounds were diffusely diminished. There was prolongation to the expiratory phase of respiration. No active wheezing was heard. Respiratory rate was 16 breaths per minute at rest. Saturation was 97% on room air. EXTREMITIES: Showed no cyanosis, clubbing or edema. Multiple tattoos were present. LABORATORY DATA: White count today is 21.49, which is increased. I suspect this is from steroids. Hemoglobin is 11.9. Platelets are 279,000. Electrolytes show sodium 142, potassium 4.0, chloride 107, and bicarbonate 24. The BUN is 31 with a creatinine of 1.3. Magnesium was slightly elevated at 2.5. AST was low at 8. ALT and alkaline phosphatase were normal. Cholesterol was 208. IMPRESSIONS: 1. Chronic obstructive pulmonary disease with exacerbation. 2. A 4-mm nodule, left lung apex, seen in 2014. 3. Nicotine addiction. COMMENTS AND RECOMMENDATIONS: The patient is clinically improved. I spoke with her at length about the need to totally abstain from smoking. I discussed with her and tess some grafts explaining how lung function declines with time in a much faster pace and smokers than nonsmokers. She relates that about 3 years ago she did quit smoking for 1 month or so. Her did quit smoking himself in the past. Her sputum culture is growing Haemophilus influenza, which is beta lactamase positive. I believe it is reasonable to further decrease her methylprednisolone. It appears this was decreased down to b.i.d. rather than q. 8 hours. She is on levofloxacin. She is also now on Combivent Respimat. As recommended by Dr. Forde, the patient should have a followup on the CAT scan of the chest. Ideally, a low dose CT of the chest should be done. The patient indicates she does not drive and ideally, she would prefer to have this while hospitalized, but for insurance issues, it may be necessary to do this after she is discharged. I believe when she is back to baseline, she should have pulmonary function testing to evaluate her lung function. She states Dr. Valdez is her regular doctor. I suggested she discuss that with him when she sees him following discharge. She believes that she had a pulmonary function study done perhaps 19 or 20 years ago.
[2016-12-18 15:00] VITALS: BP 136/78; PULSE 83; TEMP 36.3; O2SAT 95
[2016-12-18] MEDS ORDERED: LEVOFLOXACIN 750 MG TAB PO SCH (19:00)
[2016-12-18] MEDS: ENOXAPARIN 40 MG/0.4 ML SYR SQ SCH (20:52)
[2016-12-18 22:50] VITALS: BP 102/63; PULSE 86; TEMP 36.5; O2SAT 96
[2016-12-19 05:48] LABS: HEMATOCRIT 36.1 % (37-47); MEAN CELL VOLUME 95.3 fL (80-100); MEAN CORPUSCULAR HEMOGLOBIN 31.1 pg (25-34); MEAN CORPUSCULAR HGB CONC 32.7 g/dl (32-36); MEAN PLATELET VOLUME 10.5 fL (7.4-10.4); PLATELET COUNT 255 K/uL (130-400); RED BLOOD COUNT 3.79 M/uL (4.2-5.4); WHITE BLOOD COUNT 17.24 K/uL (4.8-10.8)
[2016-12-19 06:18] LABS: CREATININE 1.2 mg/dl (0.60-1.20)
[2016-12-19 06:55] VITALS: BP 139/73; PULSE 59; TEMP 36.8; O2SAT 97
[2016-12-19] MEDS: IPRATROPIUM BROMIDE/ALBUTEROL respimat INH INH SCH ×2 (08:30→13:30)
[2016-12-19] MEDS: FLUTICASONE/SALMETEROL (ADVAIR) 500/50 INH 14 PUFF INH SCH (08:30)
[2016-12-19] MEDS: METHYLPREDNISOLONE IV 60 MG in SYRINGE 0 ML IV SCH (08:31)
[2016-12-19] MEDS: GUAIFENESIN 600 MG TABCR PO SCH (08:31)
[2016-12-19] MEDS: PANTOprazole SOD 40 MG TAB PO SCH (08:31)
[2016-12-19] MEDS: ASPIRIN 81 MG ECTAB PO SCH (08:31)
[2016-12-19] MEDS: NICOTINE 21 MG/24 HR TDSY TD SCH (08:31)
[2016-12-19] MEDS ORDERED: IPRA1AER2 INH (10:02)
[2016-12-19] MEDS ORDERED: LVQ750 PO (10:02)
[2016-12-19] MEDS ORDERED: METH4PAK PO (10:02)
--- NOTE | 2016-12-19 10:06 | Discharge Instructions ---
Discharge Instructions Date of Service Dec 19, 2016. Admission Reason for Admission: Copd Exacerbation Discharge Discharge Diagnosis / Problem: COPD exacerbation Discharge Goals Goal(s): Decrease discomfort, Improve function, Increase independence, Improve disease control, Learn about illness, Diagnostic testing, Prevent Disease Progression Activity Recommendations Activity Limitations: resume your previous activity Exercise/Sports Limitations: none Shower/Bathe: no limitations . Instructions / Follow-Up Instructions / Follow-Up Patient to be discharged home Please continue to take antibiotic levaquin once a day for 4 more days Please take steroid taper as directed Please continue to use combivent inhaler as instructed in the hospital Will need to follow up with Dr. Valdez in 1-2 weeks Current Hospital Diet Patient's current hospital diet: Regular Diet Discharge Diet Recommended Diet: Regular Diet Pending Studies Studies pending at discharge: no Laboratory Results Lipid Panel Test 12/18/16 07:03 Range/Units Triglycerides Level 117 0-150 mg/dl Cholesterol Level 208 H 0-200 mg/dl HDL Cholesterol 55 mg/dl Cholesterol/HDL Ratio 3.8 LDL Cholesterol, Calculated 130 mg/dl Medical Emergencies . Who to Call and When: Medical Emergencies: If at any time you feel your situation is an emergency, please call 911 immediately. . Non-Emergent Contact Non-Emergency issues call your: Primary Care Provider Call Non-Emergent contact if: you have a fever, your pain is worsening . . "Provider Documentation" section prepared by Flaquito Higgins. VTE Core Measure Inpt VTE Proph given/why not?: Enoxaparin (Lovenox)SQ
[2016-12-19 10:10] VITALS: BP 139/73; PULSE 59; TEMP 36.8; O2SAT 97
--- NOTE | 2016-12-19 10:47 | Pulmonology Progress Note ---
Pulmonary Progress Note Date of Service Dec 19, 2016. Attending Dr. uDron Subjective Feeling markedly improved today. Cough continues less severe in nature - sputum thinner and account resolution expert in nature. Has been ambulating throughout the hallways with mild dyspnea but tolerating well. Appetite in-tact. Eagerly anticipating discharge. Objective 61-yo female admitted 12/16/16 with 2-week h/o dyspnea, pharyngitis and cough productive of green sputum. Symptoms progressed despite outpatient [employer]PUT[employer] course of azithromycin and prednisone. On initial evaluation: WBC: 17.35, ProBNP: 377, Influenza negative. CXR consistent with cardiomegaly and emphysematous changes. She has received IV steroid, levofloxacin (750mg day #2), guaifenesin, Advair 500/50 BID (COMPUT[employer]APH[employer]IST) and new Rx Combivent QID. She has been steadily improving clinically. PMHx includes: COPD (clinically diagnosed), DM, carotid artery stenosis, HTN, HLD, GERD, Meniers disease, obesity, 4mm left apical pulmonary nodule. She is a current smoker: 1-ppd (45-pack year). Today: - O2: 95-97% RA - Afebrile, HD stable - WBC/Hgb/Hct/Plts: 17.24 (sep), 11.8/36.1/255 - Sputum 12/16/16: haemo influenza (sensitive to ceftriaxone, clarithromycin, ciprofloxacin, and Bactrim) - Discharge anticipated today Physical Exam: Constitutional: WDWN obese female lying quietly in bed. No acute distress Head: + facial symmetry Eyes: EOMi, PERRLA, no injection Mouth: moist mucous membranes. Several missing teeth. No lesions or erythema Respiratory: non-labored respirations. Reduced BS throughout with slight extension of expiratory phase. No wheeze, rales or rhonchi. CV: Regular rate. Extra beat every 3rd. Soft I/ systolic murmur. Warm and perfused peripherally. MSk/Extremities: Moving and developed symmetrically. No peripheral edema. Integumentary: No erythema or lesions. Tattoos UE/LEs Neurologic: A&O. Good data recall. Able to follow complex commands. Assessment & Plan 61-yo female admitted 12/16/16 with dyspnea and productive cough. Improved significantly clinically. Sputum: + haemophilus influenza. 1. H/O tobacco with emphysema on imaging - Will need outpatient pulmonary follow-up for full PFTs - Discharge on BID Advair 250/50 and QID Combivent with PRN albuterol HFA - Smoking cessation education 2. 4mm left apical pulmonary nodule in high-risk patient: - CT Chest without contrast as an outpatient 3. Sputum + haemophilus: - Discharge on ciprofloxacin - Wean Steroid: current dose is methylprednisolone 120mg daily: Discharge on tapered Prednisone: 60mg x 2 days then decrease by 10mg Q2 days then off. Data Medications: Current Inpatient Medications Medications (Trade) Dose Ordered Sig/Karri Route Start Time Stop Time Status Last Admin Dose Admin Albuterol/ Ipratropium (Duoneb) 3 ml Q2R PRN INH 12/16/16 15:30 01/15/17 15:29 Enoxaparin Sodium (Lovenox Inj) 40 mg Q24H SQ 12/16/16 21:00 01/15/17 20:59 12/18/16 20:52 40 MG Acetaminophen (Tylenol Tab) 650 mg Q4H PRN PO 12/16/16 15:30 01/15/17 15:29 Al Hydrox/Mg Hydrox/Simethicone (Maalox Max Susp) 15 ml Q4H PRN PO 12/16/16 15:30 01/15/17 15:29 Magnesium Hydroxide (Milk Of Magnesia Susp) 30 ml Q6H PRN PO 12/16/16 15:30 01/15/17 15:29 Polyethylene (Miralax Powder Packet) 17 gm DAILY PRN PO 12/16/16 16:00 01/15/17 15:59 Ondansetron HCl (Zofran Inj) 4 mg Q6H PRN IV 12/16/16 15:30 01/15/17 15:29 Zolpidem Tartrate (Ambien Tab) 5 mg HSZ PRN PO 12/16/16 15:30 01/15/17 15:29 Aspirin (Ecotrin Tab) 81 mg DAILY PO 12/17/16 09:00 01/16/17 08:59 12/19/16 08:31 81 MG Salmeterol Xinafoate/ Fluticasone (Advair Diskus 500/50 Inh) 1 puff BID INH 12/16/16 21:00 01/15/17 20:59 12/19/16 08:30 1 PUFF Pantoprazole Sodium (Protonix Tab) 40 mg QAM PO 12/17/16 09:00 01/16/17 08:59 12/19/16 08:31 40 MG Nicotine (Nicoderm Cq 21MG Patch) 1 patch QAM TD 12/17/16 09:00 01/16/17 08:59 12/19/16 08:31 1 PATCH Miscellaneous (Remove Nicoderm Patch) 1 ea HS N/A 12/17/16 21:00 01/16/17 20:59 12/18/16 20:51 1 EA Guaifenesin (Mucinex Contr Rel Tab) 1,200 mg Q12 PO 12/17/16 21:00 01/16/17 20:59 12/19/16 08:31 1,200 MG Levofloxacin (Levaquin Tab) 750 mg DAILY@1900 PO 12/18/16 19:00 12/22/16 19:01 12/18/16 18:28 750 MG Albuterol/ Ipratropium 1 puffs 1 puffs QID INH 12/18/16 13:00 01/17/17 12:59 12/19/16 08:30 1 PUFFS Methylprednisolone Sodium Succinate/ Syringe (Solu-Medrol IV/ Syringe) 0.96 ml @ 1.5 mls/min BID IV 12/18/16 21:00 01/17/17 20:59 12/19/16 08:31 1.5 MLS/MIN I & O: 24-Hour Column 12/19/16 07:59 Intake Total 1740 ml Balance 1740 ml Vital Signs: Date Time Temp Pulse Resp B/P Pulse Ox O2 Delivery O2 Flow Rate FiO2 12/19/16 10:10 36.8 59 16 97 Room Air 12/19/16 07:55 Room Air 12/19/16 06:55 36.8 59 16 139/73 97 Room Air 12/18/16 23:50 Room Air 12/18/16 22:50 36.5 86 16 102/63 96 Room Air 12/18/16 15:00 36.3 83 18 136/78 95 Room Air 12/18/16 14:49 Room Air 12/18/16 11:50 88 12 97 Room Air Laboratory Results: Last 24 Hours Test 12/19/16 05:27 White Blood Count 17.24 K/uL Red Blood Count 3.79 M/uL Hemoglobin 11.8 g/dL Hematocrit 36.1 % Mean Corpuscular Volume 95.3 fL Mean Corpuscular Hemoglobin 31.1 pg Mean Corpuscular Hemoglobin Concent 32.7 g/dl RDW Standard Deviation 47.7 fL RDW Coefficient of Variation 13.9 % Platelet Count 255 K/uL Mean Platelet Volume 10.5 fL Creatinine 1.20 mg/dl Est Creatinine Clear Calc Drug Dose 54.3 ml/min Estimated GFR () 56.1 Estimated GFR (Non- 48.4
--- NOTE | 2016-12-19 12:32 | Discharge Summary ---
Discharge Summary Date of Service Dec 19, 2016. Discharge Summary Admission Date: Dec 16, 2016 at 15:37 Discharge Date: Dec 19, 2016 Discharge Disposition: Home Principal Diagnosis: COPD exacerbation Immunizations: Have You Had Influenza Vaccine: Yes Influenza Vaccine Date: Jul 20, 2009 History of Tetanus Vaccine?: No History of Pneumococcal: Yes Pneumococcal Date: Jan 18, 2005 History of Hepatitis B Vaccine: No Consultations: Pulmonary Medication Reconciliation New Medications: Methylprednisolone (Medrol Dosepak) 4 Mg David 0 PO DAILY, #1 PKT Ipratropium-Albuterol (Combivent Respimat) 1 Aer Aer 1 PUFFS INH QID, #1 INHALER Levofloxacin (Levofloxacin) 750 Mg Tab 750 MG PO DAILY@1900 for 4 Days, #4 TAB Continued Medications: Albuterol Hfa (Ventolin Hfa) 200 Puffs/16088 Mcg Aers 2-4 PUFFS INH Q6H Aspirin (Aspirin Ec) 81 Mg Tab 81 MG PO DAILY Fluticasone Prop/Salmeterol (Advair Diskus 500-50 Mcg/Dose) 14 Puff/1 Inhaler Aerp 1 PUFF INH BID Omeprazole (Prilosec) 20 Mg Capcr 20 MG PO QAM, CAP Discharge Exam Review of Systems: Constitutional: No chills, No fever Respiratory: No cough, No sputum Cardiovascular: No chest pain, No orthopnea Abdomen: No diarrhea, No nausea, No pain, No vomiting Musculoskeletal: No joint pain, No muscle pain Genitourinary - Female: No dysuria, No urinary frequency Neurologic: No paralysis, No weakness Physical Exam: General Appearance: WD/WN, no apparent distress Neck: supple, no adenopathy Respiratory/Chest: lungs clear, normal breath sounds Cardiovascular: no edema, no gallop Abdomen / GI: non tender, soft Neurologic/Psychiatric: alert, oriented x 3 Hospital Course Pt is a 61 yo female with a h/o COPD, current tobacco use/smoking, obesity, GERD , and FRANCISCA, who presents to the ER with progressively worsening SOB and productive cough, admitted for AECOPD. Tachypneic, with leukocytosis with SIRS. -pt successfully weaned off O2 -nebs for bronchodilators, continue home Advair -started on Mucinex -give Levaquin 750mg daily x 7 day course as sputum cx pos for h influenza -continue IV Solu Medrol and taper back to po prednisone on discharge -consulted Pulmonology - started on combivent, CT chest without contrast to further evaluate 4mm left apical pulmonary nodule in high-risk patient, will also need repeat PFTs -counseled extensively on smoking cessation from cigarettes as well as marijuana -continue Nicotine patch FRANCISCA-on ASA mildly elev total chol GERD-stable -continue PPI Proph-Lovenox, PPI Dispo-FULL CODE Total Time Spent: Greater than 30 minutes This includes examination of the patient, discharge planning, medication reconciliation, and communication with other providers. Discharge Instructions Please refer to the electronic Patient Visit Report (Discharge Instructions) for additional information. Additional Copies To Edwin Valdez M.D.
[2016-12-19] MEDS ORDERED: NCDT21 TD (14:24)
[2016-12-19 15:36] VITALS: BP 121/78; PULSE 83; TEMP 36.7; O2SAT 96
--- NOTE | 2016-12-20 08:37 | EDITING REQUIRED CODING QUERY ---
SEPSIS Dear Dr. Higgins, To promote full compliance with coding requirements relating to patient care, physician participation is requested in all cases of emergency room clinician uncertainty. Please assist us with the question(s) below: In responding to this query, please exercise your independent professional judgement. The fact that a question is asked does not imply that any particular answer is desired or expected. We appreciate your clarification on this issue. Please clarify SIRS below by placing an X in the parentheses that apply. (X) Medical documentation: pt is a 61 yo female with a h/o COPD, current tobacco use/smoking, obesity, GERD, and FRANCISCA, who presents to the ER with progressively worsening SOB and productive cough, admitted for AECOPD. Tachypneic, with leukocytosis with SIRS. ( )Bacteremia (Nonspecific laboratory finding of bacteria in the blood) Specify Organism ( ) Present on Admission () Not present on admission () Unable to clinically determine ( ) Septicemia (Systemic disease associated with the presence of pathogenic microorganisms in the blood): Specify Organism () Present on Admission () Not present on admission () Unable to clinically determine (X ) Sepsis Specify Organism Specify Associated Condition/Diagnosis (X) Present on Admission () Not present on admission () Unable to clinically determine () Severe Sepsis (Sepsis associated with acute organ dysfunction) Specify Organism Specify Associated Condition/Diagnosis () Present on Admission () Not present on admission () Unable to clinically determine ( ) Septic Shock (Severe sepsis with acute circulatory failure, unexplained by other causes) () Present on Admission () Not present on admission () Unable to clinically determine ( ) SIRS - Noninfectious origin (without organ dysfunction) ( ) Other, patient has: ( ) Sepsis was ruled out Thank you for your time, Bella De Guzman, SCREEN MAKING TECHNICIAN
== END 2016-12-19 17:00 | disposition home or self-care (01) | DRG 872 ==
LOC: ENRESERVDT → ENRESERVTM → C.EDB 11:58 → C.MSN 15:37
PROVIDERS: ADMIT Family Medicine; ATTEND Hospitalist
DX: A41.9 Sepsis, unspecified organism (principal); J44.1 Chronic obstructive pulmonary disease with (acute) exacerbation; J44.0 Chronic obstructive pulmonary disease with (acute) lower respiratory infection; K21.9 Gastro-esophageal reflux disease without esophagitis; D72.829 Elevated white blood cell count, unspecified; E66.9 Obesity, unspecified; F17.210 Nicotine dependence, cigarettes, uncomplicated; R91.1 Solitary pulmonary nodule; E11.9 Type 2 diabetes mellitus without complications; E78.5 Hyperlipidemia, unspecified; I10 Essential (primary) hypertension; J20.9 Acute bronchitis, unspecified; R06.82 Tachypnea, not elsewhere classified; I65.29 Occlusion and stenosis of unspecified carotid artery; R09.3 Abnormal sputum; B96.3 Hemophilus influenzae [H. influenzae] as the cause of diseases classified elsewhere; H81.09 Meniere's disease, unspecified ear; F12.90 Cannabis use, unspecified, uncomplicated; B97.89 Other viral agents as the cause of diseases classified elsewhere; Z79.82 Long term (current) use of aspirin; Z68.35 Body mass index [BMI] 35.0-35.9, adult; Z79.51 Long term (current) use of inhaled steroids; Z79.899 Other long term (current) drug therapy

== ENCOUNTER → 2017-01-05 | Outpatient (CLI) | payer OTHER ==
[~2017-01-05] MED LIST changes: -ACET-1256 PO; -ALBU1AER9 INH; +IPRA1AER2 INH; +LVQ750 PO; -Metformin Hcl PO; +NCDT21 TD; -PRD10 PO; +PRLSR20 PO; -SIMV20TA5 PO; -SPRIN INH; -TRIA37.5 PO; +VNTHFA/IN INH
--- NOTE | 2017-01-05 13:37 | DIAGNOSTIC IMAGING REPORT ---
CT OF THE CHEST WITHOUT IV CONTRAST CLINICAL HISTORY: Pulmonary nodule follow-up. COPD. COMPARISON STUDY: 01/10/2014, CT scan of the neck dated November 24, 2014 CT DOSE: 564.17 mGycm TECHNIQUE: CT of the thorax was performed from the thoracic inlet to the lung bases. Images are reviewed in the axial, sagittal, and coronal planes. IV contrast was not administered for this examination. FINDINGS: Thyroid: Imaged portions of the thyroid gland are normal in appearance. Thoracic aorta: The thoracic aorta is normal in course and caliber, noting standard 3 vessel arch anatomy. Heart: The heart is normal in size and configuration, without pericardial effusion. Lungs and pleural spaces: There are no pleural effusions. There is no focal pulmonary consolidation. The previously identified 3.8 mm left apical pulmonary nodule has resolved. There is a very low suspicion 2.5 mm right upper lobe perifissural nodule. This remains unchanged from December 2013. No follow-up is indicated. Mediastinum: There is no mediastinal lymphadenopathy. [place]: Clear. Axilla: Clear. Upper abdomen: The gallbladder surgically absent. Skeletal structures: There are no lytic or blastic osseous lesions. IMPRESSION: No acute intrathoracic findings. The previously described 3.8 mm left apical pulmonary nodule has resolved. Electronically signed by: Zhen Yañez M.D. 01/05/2017 1:35 PM Dictated Date/Time: 01/05/2017 1:28 PM
== END | disposition home or self-care (01) ==
LOC: C.CTS 13:08
PROVIDERS: ATTEND Internal Medicine
DX: J44.9 Chronic obstructive pulmonary disease, unspecified (principal)

== ENCOUNTER → 2017-05-09 | Outpatient (CLI) | payer OTHER ==
[2017-05-09 12:35] LABS: BASO % 0.4 %; BASO ABS # 0.03 K/uL (0-0.2); COMPLETE YES; EOS % 1.6 %; HEMATOCRIT 40.2 % (37-47); IG% 0.4 %; LYMPH % 36.6 %; LYMPH ABS # 3.01 K/uL (1.2-3.4); MEAN CELL VOLUME 95.9 fL (80-100); MEAN CORPUSCULAR HEMOGLOBIN 31.7 pg (25-34); MEAN CORPUSCULAR HGB CONC 33.1 g/dl (32-36); MEAN PLATELET VOLUME 10.6 fL (7.4-10.4); MONO % 7.7 %; NEUT % 53.3 %; PLATELET COUNT 300 K/uL (130-400); RED BLOOD COUNT 4.19 M/uL (4.2-5.4); WHITE BLOOD COUNT 8.22 K/uL (4.8-10.8)
[2017-05-09 12:38] LABS: URINE APPEARANCE CLEAR (CLEAR); URINE BILIRUBIN NEG (NEG); URINE COLOR YELLOW; URINE EPITHELIAL CELL AUTO >30 /lpf (0-5); URINE NITRITE NEG (NEG); URINE SPECIFIC GRAVITY 1.019 (1.000-1.030); UROBILINOGEN NEG (NEG); ZZUR CULT IF INDIC CLEAN CATCH YES
[2017-05-09 12:45] LABS: MANUAL MICROSCOPIC REQUIRED? NO; REVIEW REQ? YES
[2017-05-09 12:55] LABS: ALT/SGPT 26 U/L (12-78); BLOOD UREA NITROGEN 18 mg/dl (7-18); BUN/CREATININE RATIO 16.1 (10-20); CALCIUM 9.5 mg/dl (8.5-10.1); CARBON DIOXIDE 28 mmol/L (21-32); CHLORIDE 110 mmol/L (98-107); CHOLESTEROL 225 mg/dl (0-200); GLUCOSE 110 mg/dl (70-99); POTASSIUM 4.5 mmol/L (3.5-5.1); SODIUM 144 mmol/L (136-145); TRIGLYCERIDES 185 mg/dl (0-150); VERY LOW DENSITY LIPOPROT CALC 37 mg/dl
[2017-05-09 12:57] LABS: ALB/GLOB RATIO 0.9 (0.9-2); ALKALINE PHOSPHATASE 80 U/L (45-117); AST/SGOT 14 U/L (15-37); CHOLESTEROL/HDL RATIO 5.6; HDL CHOLESTEROL 40 mg/dl; LDL CHOLESTEROL CALCULATED 148 mg/dl
[2017-05-09 13:33] LABS: ESTIMATED AVERAGE GLUCOSE 134 mg/dl; HA1C FLAG Normal (Normal)
== END | disposition home or self-care (01) ==
LOC: C.LABBFT 09:41
PROVIDERS: ATTEND Internal Medicine
DX: E11.9 Type 2 diabetes mellitus without complications (principal); I10 Essential (primary) hypertension; E78.5 Hyperlipidemia, unspecified; R73.03 Prediabetes

== ENCOUNTER → 2017-10-03 | Outpatient (CLI) | payer OTHER ==
[2017-10-03 17:56] LABS: CHOLESTEROL/HDL RATIO 3.8
== END | disposition home or self-care (01) ==
LOC: C.LABBFT 11:55
PROVIDERS: ATTEND Internal Medicine
DX: E78.5 Hyperlipidemia, unspecified (principal)

== ENCOUNTER 2020-02-11 16:04 | Inpatient (IN) ==
--- NOTE | 2020-02-11 16:21 | Emergency Department Note ---
Impression & Plan Numbness of right hand, Blurred vision, CVA (cerebral vascular accident), CKD (chronic kidney disease) ED Provider Note NAME: DEEPAK CORTEZ AGE: 64 SEX: F ARRIVES VIA: Walk-In INFORMANT: Patient, ED PROVIDER(S): Kaden Garza MD CHIEF COMPLAINT: Right hand weakness and blurred vision x 3 days PLAN: Disposition: Admit MEDICAL DECISION MAKING: The patient is a pleasant 64-year-old woman with a past medical history of anxiety, depression, COPD, hypertension, hyperlipidemia, carotid artery stenosis, history of MCA aneurysm (seen incidentally on CTA to evaluate the patient's carotid artery stenosis, history of remotely of what the patient describes as a "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 She reports her symptoms began on Sunday and have persisted. She reports associated blurred vision in her right eye. She denies any problems with balance or ambulation. She reports mild intermittent nausea over the past several days. She denies any fevers, chills, cough, congestion, vomiting, diarrhea, urinary symptoms. Denies any travel to high risk areas or contact with individuals known to be diagnosed with COVID-19. Given the patient's symptoms have been ongoing for several days stroke alert or TPA was not indicated. On arrival patient is no acute distress, afebrile with stable vital signs. She exhibits no overt ataxia or dysmetria though she seems to subjectively report difficulty with ibnmld-we-lpyl on the right side. 5/5 strength and SILT x 4 extremities. EOMI. No nystamgus. PEARRL. EKG unremarkable without evidence of acute ischemia. CXR negative. WBC, H/H and platelets within normal limits. Chemistry without acidosis. Running 1.3 approximate 2 prior range of values. Electrolytes and LFTs unremarkable. Troponin negative/undetectable. UA is suspicious for infection with 10-30 WBCs and 4+ bacteria albeit with epithelial cells>30. She denies any urinary symptoms. Previous cultures have grown pansensitive Pseudomonas, E. coli resistant to ampicillin and amp/sulbactam. CTA of the head and neck was performed and demonstrates multiple hypodense foci predominantly within the left cerebral hemisphere measure up to 2.2 cm that favors subacute infarcts that are possibly embolic. There is also evidence of small vessel disease. The patient is agreeable with admission for further stroke evaluation including likely MRI. Case was discussed with Dr. Drew, and [facility] admitting resident with Dr. Johnson [facility] hospitalist, who will evaluate the patient for admission. Triage Nursing notes reviewed and agree them. Prior medical records reviewed Vital Signs: reviewed and remarkable for HTN. Differential diagnosis: Infection, dehydration, metabolic abnormality, hypo/hyperglycemia, electrolyte disturbance, anemia, hypoxia, cardiac sources, intracerebral event, toxicologic, neurologic, as well as other pathologies. ER treatment provided: See below. Diagnostics interpreted by me: ECG: Normal sinus rhythm, 78 bpm occasional PVCs, normal axis, no overt ST elevation or depression, QTC 453, QRS 78. Cardiac Monitoring: An order for continuous cardiac monitoring was placed and demonstrated Normal sinus rhythm, 78 bpm, occasional PVCs. Laboratory studies: See below Imaging studies: See below Consultation(s): Dr. Drew, and [facility] admitting resident with Dr. Johnson [facility] hospitalist HPI: The patient is a pleasant 64-year-old woman with a past medical history of anxiety, depression, COPD, hypertension, hyperlipidemia, carotid artery stenosis, history of MCA aneurysm (seen incidentally on CTA to evaluate the patient's carotid artery stenosis, history of remotely of what the patient describes as a "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 She reports her symptoms began on Sunday and have persisted. She reports associated blurred vision in her right eye. She denies any problems with balance or ambulation. She reports mild intermittent nausea over the past several days. She denies any fevers, chills, cough, congestion, vomiting, diarrhea, urinary symptoms. Denies any travel to high risk areas or contact with individuals known to be diagnosed with COVID-19. ROS: See above HPI for pertinent positives & negatives. A total of 10 systems reviewed and were otherwise negative. PAST MEDICAL HISTORY:See Below PAST SURGICAL HISTORY:See Below FAMILY HISTORY:See Below SOCIAL HISTORY:See Below HOME MEDICATIONS:See Below ALLERGIES:See Below VITALS:See Below PHYSICAL EXAMINATION: GENERAL: Awake, alert, well-appearing, in no distress HENT: Normocephalic, atraumatic. Oropharynx unremarkable. EYES: Normal conjunctiva. Sclera non-icteric. EOMI. No nystamgus. PEARRL. NECK: Supple. No nuchal rigidity. FROM. No JVD. RESPIRATORY: Clear to auscultation. CARDIAC: Regular rate, normal rhythm. Extremities warm and well perfused. Pulses equal. ABDOMEN: Soft, non-distended. No tenderness to palpation. No rebound or guarding. No masses. RECTAL: Deferred. MUSCULOSKELETAL: Chest examination reveals no tenderness. The back is symmetrical on inspection without obvious abnormality. There is no CVA tenderness to palpation. No joint edema. LOWER EXTREMITIES: Calves are equal size bilaterally and non-tender. No edema. No discoloration. NEURO: No overt ataxia or dysmetria though she seems to subjectively report difficulty with ljiwev-fe-nnmi on the right side. 5/5 strength and SILT x 4 extremities. SKIN: No rash or jaundice noted. Kaden Garza MD Past Med/Surg History Medical History Asthma (Chronic) COPD (chronic obstructive pulmonary disease) (Chronic) Pneumonia (Chronic) Surgical History History of brain surgery History of section Family History Other Diabetes Heart disease Social History Preferred Language: Afghan Feels Safe at Home: Yes Smoking Status: Current every day smoker Allergies Allergies Allergy/AdvReac Type Severity Reaction Status Date / Time No Known Allergies Allergy Verified 02/11/20 16:50 Home Meds Home Medications Medication Instructions Recorded Confirmed aspirin [Aspirin Low Dose] 81 mg PO DAILY 11/29/18 02/11/20 ipratropium-albuterol [Combivent 1 puffs INH QID 02/11/20 02/11/20 Respimat] Previous Rx's Medication Instructions Recorded omeprazole 20 mg capsule,delayed 20 mg PO DAILY #30 cap 12/01/19 release albuterol sulfate 90 mcg/actuation 2 puffs INHALATION Q6H PRN #18 gm 01/30/20 aerosol inhaler bupropion HCl 150 mg tablet,12 hr 150 mg PO DAILY #90 ea 01/30/20 sustained-release Results & Data (ED) Vital Signs Vital Signs - 24 hr 02/11/20 16:08 02/11/20 16:25 02/11/20 16:30 Temperature 36.7 C Temperature Source Oral Pulse Rate 41 L 85 80 Pulse Rate from SpO2 Sensor Respiratory Rate 19 19 22 Blood Pressure 132/84 Blood Pressure Mean 100 Blood Pressure Position Sitting Pulse Oximetry 96 Sepsis Recent Fever Within 48 Hours No Sepsis Action Taken by Nursing No Action Required 02/11/20 16:50 02/11/20 17:00 02/11/20 17:11 Temperature Temperature Source Pulse Rate 81 74 71 Pulse Rate from SpO2 Sensor 59 L 70 70 Respiratory Rate 18 22 26 H Blood Pressure 128/100 140/73 Blood Pressure Mean 112 85 Blood Pressure Position Pulse Oximetry 95 96 97 Sepsis Recent Fever Within 48 Hours Sepsis Action Taken by Nursing 02/11/20 17:45 02/11/20 17:50 02/11/20 18:00 Temperature Temperature Source Pulse Rate 86 81 81 Pulse Rate from SpO2 Sensor Respiratory Rate 21 21 21 Blood Pressure 138/70 Blood Pressure Mean 117 Blood Pressure Position Pulse Oximetry Sepsis Recent Fever Within 48 Hours Sepsis Action Taken by Nursing 02/11/20 18:01 Temperature Temperature Source Pulse Rate 74 Pulse Rate from SpO2 Sensor Respiratory Rate 17 Blood Pressure 158/86 H Blood Pressure Mean 109 Blood Pressure Position Pulse Oximetry Sepsis Recent Fever Within 48 Hours Sepsis Action Taken by Nursing Laboratory Data Attestation: I reviewed the patient's lab results. Result diagrams: 02/11/20 16:35 02/11/20 16:35 Lab Results 02/11/20 02/11/20 02/11/20 Range/Units 16:35 16:35 16:35 WBC 8.50 (4.8-10.8) K/uL RBC 4.16 L (4.2-5.4) M/uL Hgb 13.1 (12.0-16.0) g/dL POC Hgb (12.0-16.0) g/dl Hct 39.5 (37-47) % POC Hct (37-47) % MCV 95.0 (80-100) fL MCH 31.5 (25-34) pg MCHC 33.2 (32-36) g/dL RDW Std Deviation 44.7 (36.4-46.3) fL RDW Coeff of Crow 12.9 (11.5-14.5) % Plt Count 248 (130-400) K/uL MPV 11.4 H (7.4-10.4) fL Immature Gran % (Auto) 0.4 % Neut % (Auto) 57.0 % Lymph % (Auto) 32.5 % Frontier % (Auto) 8.7 % Eos % (Auto) 1.2 % Baso % (Auto) 0.2 % Immature Gran # (Auto) 0.03 H (0.00-0.02) K/uL Neut # (Auto) 4.85 (1.4-6.5) K/uL Lymph # (Auto) 2.76 (1.2-3.4) K/uL Frontier # (Auto) 0.74 H (0.11-0.59) K/uL Eos # (Auto) 0.10 (0-0.5) K/uL Baso # (Auto) 0.02 (0-0.2) K/uL PT Cancelled INR Cancelled APTT Cancelled PTT Ratio Cancelled POC Sodium (135-144) mmol/L Sodium 137 (136-145) mmol/L POC Potassium (3.3-5.0) mmol/L Potassium 4.6 (3.5-5.1) mmol/L POC Chloride (101-112) mmol/L Chloride 107 (98-107) mmol/L Carbon Dioxide 23 (21-32) mmol/L POC Total CO2 (24-31) mEq/l Anion Gap 8.0 (3-11) POC Anion Gap (16-25) mmol/L POC BUN (7-18) mg/dl BUN 18 (7-18) mg/dl Creatinine 1.30 H (0.6-1.2) mg/dl POC Creatinine (0.6-1.3) mg/dl Est Cr Clr Drug Dosing Not Reportable Est GFR ( Amer) 49.9 Est GFR (Non-Af Amer) 43.0 BUN/Creatinine Ratio 13.8 (10-20) Glucose 85 (70-99) mg/dl POC Glucose (70-99) mg/dl POC Glucose (other) (70-99) mg/dl Calcium 9.1 (8.5-10.1) mg/dl POC Ioniz Calcium Juan (1.12-1.32) mmol/l Phosphorus 2.7 (2.5-4.9) mg/dl Magnesium 2.1 (1.8-2.4) mg/dl Total Bilirubin 0.4 (0.2-1) mg/dl AST 21 (15-37) U/L ALT 26 (12-78) U/L Alkaline Phosphatase 95 (45-117) U/L Troponin I < 0.015 (0-0.045) ng/ml Total Protein 7.8 (6.4-8.2) gm/dl Albumin 3.8 (3.4-5.0) gm/dl Globulin 4.0 (2.5-4.0) gm/dl Albumin/Globulin Ratio 0.9 (0.9-2) TSH 1.300 (0.300-4.500) uIu/ml Urine Color Urine Appearance (Clear) Urine pH (4.5-7.5) Ur Specific [place] (1.000-1.030) Urine Protein (Negative) Urine Glucose (UA) (Negative) Urine Ketones (Negative) Urine Blood (Negative) Urine Nitrite (Negative) Urine Bilirubin (Negative) Urine Urobilinogen (Negative) Ur Leukocyte Esterase (Negative) Urine WBC (Auto) (0-5) /hpf Urine RBC (Auto) (0-4) /hpf U Hyaline Cast (Auto) (0-5) /lpf U Epithel Cells (Auto) (0-5) /lpf Urine Bacteria (Auto) (Negative) 02/11/20 02/11/20 02/11/20 Range/Units 16:45 16:46 17:46 WBC (4.8-10.8) K/uL RBC (4.2-5.4) M/uL Hgb (12.0-16.0) g/dL POC Hgb 12.9 (12.0-16.0) g/dl Hct (37-47) % POC Hct 38 (37-47) % MCV (80-100) fL MCH (25-34) pg MCHC (32-36) g/dL RDW Std Deviation (36.4-46.3) fL RDW Coeff of Crow (11.5-14.5) % Plt Count (130-400) K/uL MPV (7.4-10.4) fL Immature Gran % (Auto) % Neut % (Auto) % Lymph % (Auto) % Frontier % (Auto) % Eos % (Auto) % Baso % (Auto) % Immature Gran # (Auto) (0.00-0.02) K/uL Neut # (Auto) (1.4-6.5) K/uL Lymph # (Auto) (1.2-3.4) K/uL Frontier # (Auto) (0.11-0.59) K/uL Eos # (Auto) (0-0.5) K/uL Baso # (Auto) (0-0.2) K/uL PT INR APTT PTT Ratio POC Sodium 137 (135-144) mmol/L Sodium (136-145) mmol/L POC Potassium 5.0 (3.3-5.0) mmol/L Potassium (3.5-5.1) mmol/L POC Chloride 107 (101-112) mmol/L Chloride (98-107) mmol/L Carbon Dioxide (21-32) mmol/L POC Total CO2 23 L (24-31) mEq/l Anion Gap (3-11) POC Anion Gap 13.0 L (16-25) mmol/L POC BUN 23 H (7-18) mg/dl BUN (7-18) mg/dl Creatinine (0.6-1.2) mg/dl POC Creatinine 1.3 (0.6-1.3) mg/dl Est Cr Clr Drug Dosing Est GFR ( Amer) Est GFR (Non-Af Amer) BUN/Creatinine Ratio (10-20) Glucose (70-99) mg/dl POC Glucose 89 (70-99) mg/dl POC Glucose (other) 89 (70-99) mg/dl Calcium (8.5-10.1) mg/dl POC Ioniz Calcium Juan 1.07 L (1.12-1.32) mmol/l Phosphorus (2.5-4.9) mg/dl Magnesium (1.8-2.4) mg/dl Total Bilirubin (0.2-1) mg/dl AST (15-37) U/L ALT (12-78) U/L Alkaline Phosphatase (45-117) U/L Troponin I (0-0.045) ng/ml Total Protein (6.4-8.2) gm/dl Albumin (3.4-5.0) gm/dl Globulin (2.5-4.0) gm/dl Albumin/Globulin Ratio (0.9-2) TSH (0.300-4.500) uIu/ml Urine Color Yellow Urine Appearance Cloudy A (Clear) Urine pH 6.5 (4.5-7.5) Ur Specific [place] 1.015 (1.000-1.030) Urine Protein Negative (Negative) Urine Glucose (UA) Negative (Negative) Urine Ketones Negative (Negative) Urine Blood Negative (Negative) Urine Nitrite Positive A (Negative) Urine Bilirubin Negative (Negative) Urine Urobilinogen Negative (Negative) Ur Leukocyte Esterase 2+ H (Negative) Urine WBC (Auto) 10-30 H (0-5) /hpf Urine RBC (Auto) 0-4 (0-4) /hpf U Hyaline Cast (Auto) 1-5 (0-5) /lpf U Epithel Cells (Auto) >30 H (0-5) /lpf Urine Bacteria (Auto) 4+ H (Negative) 02/11/20 Range/Units 17:52 WBC (4.8-10.8) K/uL RBC (4.2-5.4) M/uL Hgb (12.0-16.0) g/dL POC Hgb (12.0-16.0) g/dl Hct (37-47) % POC Hct (37-47) % MCV (80-100) fL MCH (25-34) pg MCHC (32-36) g/dL RDW Std Deviation (36.4-46.3) fL RDW Coeff of Crow (11.5-14.5) % Plt Count (130-400) K/uL MPV (7.4-10.4) fL Immature Gran % (Auto) % Neut % (Auto) % Lymph % (Auto) % Frontier % (Auto) % Eos % (Auto) % Baso % (Auto) % Immature Gran # (Auto) (0.00-0.02) K/uL Neut # (Auto) (1.4-6.5) K/uL Lymph # (Auto) (1.2-3.4) K/uL Frontier # (Auto) (0.11-0.59) K/uL Eos # (Auto) (0-0.5) K/uL Baso # (Auto) (0-0.2) K/uL PT 10.9 INR 1.0 APTT 25.9 PTT Ratio 0.9 POC Sodium (135-144) mmol/L Sodium (136-145) mmol/L POC Potassium (3.3-5.0) mmol/L Potassium (3.5-5.1) mmol/L POC Chloride (101-112) mmol/L Chloride (98-107) mmol/L Carbon Dioxide (21-32) mmol/L POC Total CO2 (24-31) mEq/l Anion Gap (3-11) POC Anion Gap (16-25) mmol/L POC BUN (7-18) mg/dl BUN (7-18) mg/dl Creatinine (0.6-1.2) mg/dl POC Creatinine (0.6-1.3) mg/dl Est Cr Clr Drug Dosing Est GFR ( Amer) Est GFR (Non-Af Amer) BUN/Creatinine Ratio (10-20) Glucose (70-99) mg/dl POC Glucose (70-99) mg/dl POC Glucose (other) (70-99) mg/dl Calcium (8.5-10.1) mg/dl POC Ioniz Calcium Juan (1.12-1.32) mmol/l Phosphorus (2.5-4.9) mg/dl Magnesium (1.8-2.4) mg/dl Total Bilirubin (0.2-1) mg/dl AST (15-37) U/L ALT (12-78) U/L Alkaline Phosphatase (45-117) U/L Troponin I (0-0.045) ng/ml Total Protein (6.4-8.2) gm/dl Albumin (3.4-5.0) gm/dl Globulin (2.5-4.0) gm/dl Albumin/Globulin Ratio (0.9-2) TSH (0.300-4.500) uIu/ml Urine Color Urine Appearance (Clear) Urine pH (4.5-7.5) Ur Specific [place] (1.000-1.030) Urine Protein (Negative) Urine Glucose (UA) (Negative) Urine Ketones (Negative) Urine Blood (Negative) Urine Nitrite (Negative) Urine Bilirubin (Negative) Urine Urobilinogen (Negative) Ur Leukocyte Esterase (Negative) Urine WBC (Auto) (0-5) /hpf Urine RBC (Auto) (0-4) /hpf U Hyaline Cast (Auto) (0-5) /lpf U Epithel Cells (Auto) (0-5) /lpf Urine Bacteria (Auto) (Negative) Administered Medications Ioversol (Optiray 320 125ml) 118 ml IV ONCE PRN PRN Reason: Interaction Checking Stop: 02/15/20 17:20 Last Admin: 02/11/20 17:21 Dose: 118 ml Documented by: [id number] Discontinued Medications Aspirin (Aspirin Chew) 324 mg PO NOW STA Stop: 02/11/20 20:06 Last Admin: 02/11/20 20:17 Dose: 324 mg Documented by: [id number] Sodium Chloride (Nss 1000ml) 1,000 mls @ 999 mls/hr IV .Q1H1M ONE Stop: 02/11/20 17:28 Last Infusion: 02/11/20 18:26 Dose: 0 mls/hr Documented by: [id number] Admin: 02/11/20 17:13 Dose: 999 mls/hr Documented by: [id number] Imaging Data Radiologist's Impression: XR chest 1V portable CLINICAL HISTORY: stroke sx COMPARISON STUDY: Chest radiograph November 29, 2018. FINDINGS: Lung volumes are normal. Lungs are clear. There is no pneumothorax or pleural effusion. Cardiac size is normal. Mediastinal contours are normal. There is no evidence for pulmonary edema. IMPRESSION: No acute cardiopulmonary findings. -- CT OF THE HEAD WITHOUT CONTRAST CLINICAL HISTORY: Stroke evaluation COMPARISON STUDY: No previous studies for comparison. TECHNIQUE: Helical axial images of the head were obtained without IV contrast. Automated exposure control was utilized for the study. A dose lowering technique was utilized adhering to the principles of ALARA. FINDINGS: No acute intracranial hemorrhage, midline shift or mass effect is present. Ventricular system is normal. The basilar cisterns are patent. There are no extra-axial collections. Multiple hypodense foci are noted, including a 1.7 cm left parieto-occipital focus, a 1.9 cm left frontal lobe focus and a 2.2 cm left occipital lobe focus. Smaller foci are also noted. The majority of these involve the cortex and subcortical white matter. A few white matter foci are present. There is no significant mass effect. No significant calvarial abnormalities are present. IMPRESSION: 1. No acute intracranial hemorrhage or mass effect. 2. Multiple hypodense foci, predominantly within the left cerebral hemisphere, measuring up to 2.2 cm. These favor acute to subacute infarcts, possibly embolic. Several white matter foci are also present which favor small vessel disease. Demyelinating disease is within the differential but considered less likely. Infarcts are favored. An MRI of the brain could be obtained for further evaluation. -- CTA ANGIOGRAPHY OF THE HEAD CLINICAL HISTORY: Stroke evaluation - RUE weakness/blurred vision COMPARISON STUDY: CTA of the neck June 24, 2015. TECHNIQUE: Helical axial images of the head were obtained following uneventful intravenous administration of 118 cc of Optiray 320. Sagittal and coronal reconstructions were viewed as well as maximal intensity projections on an independent 3-D workstation. Automated exposure control was utilized for the study. A dose lowering technique was utilized adhering to the principles of ALARA. CT DOSE: 1085.27 mGy.cm FINDINGS: No acute intracranial hemorrhage, midline shift or mass effect is present. Ventricular system is normal. The basilar cisterns are patent. There ar e no extra axial collections. No intracranial aneurysm, abrupt vessel cut off or intraluminal thrombus is noted. There is no mild to moderate plaque within the bilateral cavernous carotids without stenosis. Bilateral M1, M2, A1 and A2 segments are patent. The posterior circulation is intact. There is persistence of the left posterior cerebral artery. IMPRESSION: No intraluminal thrombus, abrupt vessel cut off or severe stenosis within the intracranial vessels. -- CT ANGIOGRAPHY OF THE NECK WITH CONTRAST CLINICAL HISTORY: Stroke evaluation - RUE weakness/blurred vision COMPARISON STUDY: CTA of the neck November 24, 2014. Technique: CT angiography of the carotid and vertebral arteries was obtained using Optiray 320 IV and 3D reconstruction on an independent workstation. NASCET criteria was utilized. Automated exposure control was utilized for the study. A dose lowering technique was utilized adhering to the principles of ALARA. Findings: Moderate plaque of the aortic arch is noted. There is emphysema with lung apices. There is moderate stenosis at the origin of the right vertebral artery. No additional stenoses within the right vertebral artery are present. There is severe stenosis at the origin of the left vertebral artery. There is no dissection within the major vessels of the neck. There is moderate plaque within the proximal right internal carotid artery with 30% stenosis. There is extensive plaque within the proximal left internal carotid artery which results in significant stenosis. The vessel measures 1.3 mm in caliber at level stenosis and 4.4 mm distally. There is mild to moderate stenosis at origin of the left common carotid artery as well as the left subclavian artery which is suboptimally assessed given motion artifact. Chronic occlusion of the left external carotid arteries noted. IMPRESSION: 1. Extensive plaque with 80% stenosis of the proximal left internal carotid artery. Chronic occlusion of the left external carotid artery with distal reconstitution. 2. Less than 50% stenosis of the proximal right internal carotid artery. 3. Mild to moderate stenosis at the origin of the left common carotid and left subclavian arteries, suboptimally assessed on this exam. Severe stenosis at the origin of the left vertebral artery and moderate stenosis at the origin of the right vertebral artery. -- Blood Pressure Blood Pressure Findings: Elevated blood pressure Blood Pressure Disposition: further management by hospitalist Discharge Plan Visit Data Chief Complaint: Stroke/CVA Symptoms Stated Complaint: DR REF - STROKE SYMPTOMS ED Provider: Kaden Garza Discharge Problem: Numbness of right hand, Blurred vision, CVA (cerebral vascular accident), CKD (chronic kidney disease) Forms Stand Alone Forms: [facility] [employer] Prescriptions Prescriptions: No Action omeprazole 20 mg capsule,delayed release(DR/EC) 20 mg PO DAILY Qty: 30 RF: 5 albuterol sulfate 90 mcg/actuation HFA aerosol inhaler 2 puffs INHALATION Q6H PRN (Reason: Wheezing) Qty: 18 RF: 5 bupropion HCl 150 mg tablet sustained-release 12 hr 150 mg PO DAILY Qty: 90 RF: 0 aspirin [Aspirin Low Dose] 81 mg Tablet,Delayed Release (Dr/Ec) 81 mg PO DAILY RF: 0 Combivent Respimat 20-100 mcg/actuation mist 1 puffs INH QID RF: 0 Discharge Problem: CVA (cerebral vascular accident) Qualifiers: CVA mechanism: unspecified Qualified Code(s): I63.9 - Cerebral infarction, unspecified CKD (chronic kidney disease) Qualifiers: Chronic kidney disease stage: unspecified stage Qualified Code(s): N18.9 - Chronic kidney disease, unspecified
[2020-02-11] MEDS ORDERED: SODIUM CHLORIDE 0.9% 1000ML 1,000 ML IV ONE (16:28)
[2020-02-11 16:49] LABS: Basophils # (auto) 0.02 K/uL (0-0.2); Basophils % (auto) 0.2 %; Eosinophils % (auto) 1.2 %; Hematocrit (blood only) 39.5 % (37-47); Hemoglobin 13.1 g/dL (12.0-16.0); Immature Granulocytes # (auto) 0.03 K/uL (0.00-0.02); Immature Granulocytes % (auto) 0.4 %; Lymphocytes # (auto) 2.76 K/uL (1.2-3.4); Lymphocytes % (auto) 32.5 %; Mean Corpuscular Hemoglobin 31.5 pg (25-34); Mean Corpuscular Hgb Conc 33.2 g/dL (32-36); Mean Platelet Volume 11.4 fL (7.4-10.4); Monocytes # (auto) 0.74 K/uL (0.11-0.59); Monocytes % (auto) 8.7 %; Neutrophils # (auto) 4.85 K/uL (1.4-6.5); Platelet Count 248 K/uL (130-400); RDW Coefficient of Variation 12.9 % (11.5-14.5); RDW Standard Deviation 44.7 fL (36.4-46.3); Red Blood Count 4.16 M/uL (4.2-5.4)
[2020-02-11 17:04] LABS: iSTAT Creatinine 1.3 mg/dl (0.6-1.3); iSTAT Hemoglobin 12.9 g/dl (12.0-16.0); iSTAT Ionized Calcium 1.07 mmol/l (1.12-1.32)
--- NOTE | 2020-02-11 17:08 | XRay Report ---
XR chest 1V portable CLINICAL HISTORY: stroke sx COMPARISON STUDY: Chest radiograph November 29, 2018. FINDINGS: Lung volumes are normal. Lungs are clear. There is no pneumothorax or pleural effusion. Car diac size is normal. Mediastinal contours are normal. There is no evidence for pulmonary edema. IMPRESSION: No acute cardiopulmonary findings. ACT 112: Negative or not required by law. Electronically signed by: Marquez Coronel M.D. 02/11/2020 5:07 PM
[2020-02-11 17:12] LABS: Albumin Level 3.8 gm/dl (3.4-5.0); BUN Creatinine Ratio 13.8 (10-20); Blood Urea Nitrogen 18 mg/dl (7-18); Calcium 9.1 mg/dl (8.5-10.1); Carbon Dioxide 23 mmol/L (21-32); Chloride 107 mmol/L (98-107); Est GFR (African American) 49.9; Glucose 85 mg/dl (70-99); Sodium 137 mmol/L (136-145)
[2020-02-11] MEDS ORDERED: OPTIRAY 320 125ml IV PRN (17:21)
[2020-02-11 17:24] LABS: Alanine Aminotransferase 26 U/L (12-78); Albumin Globulin Ratio 0.9 (0.9-2); Alkaline Phosphatase 95 U/L (45-117); Aspartate Aminotransferase 21 U/L (15-37); Bilirubin,Total 0.4 mg/dl (0.2-1); Magnesium 2.1 mg/dl (1.8-2.4); Phosphorus 2.7 mg/dl (2.5-4.9); Potassium 4.6 mmol/L (3.5-5.1); Total Protein 7.8 gm/dl (6.4-8.2); Troponin I < 0.015 ng/ml (0-0.045)
--- NOTE | 2020-02-11 17:45 | CT Scan Report ---
CT OF THE HEAD WITHOUT CONTRAST CLINICAL HISTORY: Stroke evaluation COMPARISON STUDY: No previous studies for comparison. TECHNIQUE: Helical axial images of the head were obtained without IV contrast. Automated exposure con trol was utilized for the study. A dose lowering technique was utilized adhering to the principles o f ALARA. FINDINGS: No acute intracranial hemorrhage, midline shift or mass effect is present. Ventricular syst em is normal. The basilar cisterns are patent. There are no extra-axial collections. Multiple hypoden se foci are noted, including a 1.7 cm left parieto-occipital focus, a 1.9 cm left frontal lobe focus and a 2.2 cm left occipital lobe focus. Smaller foci are also noted. The majority of these involve th e cortex and subcortical white matter. A few white matter foci are present. There is no significant m ass effect. No significant calvarial abnormalities are present. IMPRESSION: 1. No acute intracranial hemorrhage or mass effect. 2. Multiple hypodense foci, predominantly within the left cerebral hemisphere, measuring up to 2.2 cm . These favor acute to subacute infarcts, possibly embolic. Several white matter foci are also presen t which favor small vessel disease. Demyelinating disease is within the differential but considered l ess likely. Infarcts are favored. An MRI of the brain could be obtained for further evaluation. ACT 112: Negative or not required by law. Electronically signed by: Marquez Coronel M.D. 02/11/2020 5:44 PM
--- NOTE | 2020-02-11 17:54 | CT Scan Report ---
CT ANGIOGRAPHY OF THE NECK WITH CONTRAST CLINICAL HISTORY: Stroke evaluation - RUE weakness/blurred vision COMPARISON STUDY: CTA of the neck November 24, 2014. Technique: CT angiography of the carotid and vertebral arteries was obtained using aroundthewayraKaizena 320 IV and 3D reconstruction on an independent workstation. NASCET criteria was utilized. Automated exposure c ontrol was utilized for the study. A dose lowering technique was utilized adhering to the principles of ALARA. Findings: Moderate plaque of the aortic arch is noted. There is emphysema with lung apices. There is moderate stenosis at the origin of the right vertebral artery. No additional stenoses within the righ t vertebral artery are present. There is severe stenosis at the origin of the left vertebral artery. There is no dissection within the major vessels of the neck. There is moderate plaque within the prox imal right internal carotid artery with 30% stenosis. There is extensive plaque within the proximal l eft internal carotid artery which results in significant stenosis. The vessel measures 1.3 mm in francisco deann at level stenosis and 4.4 mm distally. There is mild to moderate stenosis at origin of the left c ommon carotid artery as well as the left subclavian artery which is suboptimally assessed given motio n artifact. Chronic occlusion of the left external carotid arteries noted. IMPRESSION: 1. Extensive plaque with 80% stenosis of the proximal left internal carotid artery. Chronic occlusion of the left external carotid artery with distal reconstitution. 2. Less than 50% stenosis of the proximal right internal carotid artery. 3. Mild to moderate stenosis at the origin of the left common carotid and left subclavian arteries, s uboptimally assessed on this exam. Severe stenosis at the origin of the left vertebral artery and mod erate stenosis at the origin of the right vertebral artery. ACT 112: Negative or not required by law. Electronically signed by: Marquez Coronel M.D. 02/11/2020 5:52 PM
[2020-02-11 17:56] LABS: Appearance Urine Cloudy (Clear); Bacteria Urine Automated 4+ (Negative); Bilirubin Urine Negative (Negative); Blood Urine Negative (Negative); Color Urine Yellow; Epithelial Cell Urine Auto >30 /lpf (0-5); Glucose Urine UA Negative (Negative); Ketones Urine Negative (Negative); Leukocyte Esterase Urine 2+ (Negative); Nitrite Urine Positive (Negative); Protein Urine Negative (Negative); RBC Urine Automated 0-4 /hpf (0-4); Specific Gravity Urine 1.015 (1.000-1.030); Urobilinogen Urine Negative (Negative); pH Urine 6.5 (4.5-7.5)
--- NOTE | 2020-02-11 18:00 | CT Scan Report ---
CTA ANGIOGRAPHY OF THE HEAD CLINICAL HISTORY: Stroke evaluation - RUE weakness/blurred vision COMPARISON STUDY: CTA of the neck June 24, 2015. TECHNIQUE: Helical axial images of the head were obtained following uneventful intravenous administr ation of 118 cc of Optiray 320. Sagittal and coronal reconstructions were viewed as well as maximal i ntensity projections on an independent 3-D workstation. Automated exposure control was utilized for the study. A dose lowering technique was utilized adhering to the principles of ALARA. CT DOSE: 1085.27 mGy.cm FINDINGS: No acute intracranial hemorrhage, midline shift or mass effect is present. Ventricular syst em is normal. The basilar cisterns are patent. There are no extra axial collections. No intracranial aneurysm, abrupt vessel cut off or intraluminal thrombus is noted. There is no mild to moderate plaqu e within the bilateral cavernous carotids without stenosis. Bilateral M1, M2, A1 and A2 segments are patent. The posterior circulation is intact. There is persistence of the left posterior cerebra l artery. IMPRESSION: No intraluminal thrombus, abrupt vessel cut off or severe stenosis within the intracrani al vessels. ACT 112: Negative or not required by law. Electronically signed by: Marquez Coronel M.D. 02/11/2020 5:59 PM
[2020-02-11 18:19] LABS: Partial Thromboplastin Ratio 0.9; Partial Thromboplastin Time 25.9 Seconds (21.0-31.0); Prothrombin Time 10.9 Seconds (9.0-12.0)
[2020-02-11] MEDS ORDERED: ASPIRIN 81 MG CHEW PO STA (20:05)
--- NOTE | 2020-02-11 21:06 | History & Physical Report ---
Date of Service February 11, 2020 Assessment & Plan (1) CVA (cerebral vascular accident): Mrs. 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 Right-sided weakness 2/2 subacute stroke Symptom onset > 72 hours prior to presentation CThead shows left cerebral multiple foci concerning for embolic subacute infarcts with differential including demyelinating disease Patient with known bilateral carotid disease, CTA neck shows 80% proximal left stenosis, 30-50% proximal right stenosis with severe vertebral stenosis MR brain pending No induction of symptoms on neck hyperextension -No history of A. fib or PFO A1c pending Lipid panel pending, recommend initiation of moderate to high-dose statin depending on patient's LDL levels Full dose aspirin given TTE with bubble pending Patient reports a history of blood clots in both her sister and niece, but does not know the details. No prior history of blood clots or strokes inpatient. Increased risk given carotid disease and active smoking. Consider factor V Leiden, homocysteine, protein C testing with follow-up lupus, cardiolipin, B2 glycoprotein, anti-thrombin, factor to follow-up if etiology of above remains unclear If patient develops new symptoms overnight call stroke alert and Plavix load Neurology consulted Bilateral carotid stenosis, vertebral artery stenosis CTA neck shows 80% proximal left stenosis, 30-50% proximal right stenosis with severe vertebral stenosis -Pending statin therapy as above Neurology consulted -No clinical signs of retrograde flow or steal syndrome on exam COPD/asthma Continue Combivent Albuterol PRN No signs of acute exacerbation Chest x-ray with no acute findings on admission History of prediabetes Adequate glycemic control on admission History of prediabetes, no recent A1c A1c pending Glucose checks AC/at bedtime, SSI pending above Anxiety/depression Continue Wellbutrin GERD 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 Surrogate decision maker would be her Lino from whom she is currently . (2) Blurred vision: (3) Numbness of right hand: (4) Vision changes: (5) Aneurysm, cerebral: (6) Carotid artery stenosis: (7) Chronic cerebral ischemia: (8) Hyperlipidemia: (9) GERD (gastroesophageal reflux disease): (10) History of prediabetes: (11) COPD (chronic obstructive pulmonary disease): History of Present Illness Chief Complaint: Right-sided weakness, headache Primary Care Provider: Edwin Valdez MD Mrs. 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 Patient reports her symptoms began on Sunday, 3 days prior to admission, when she noticed sudden numbness/tingling, slight weakness, and poor coordination in her right arm and hand. She notes that the right hand "felt funny, and I could not even hit the ashtray ". She continued to have difficulty throughout that afternoon and found herself frequently dropping things throughout the day. She had a mild headache with mild blurry vision, and some nausea without vomiting. She did not experience any balance problems or weakness in her legs she did not have any chest pain, chest pressure, palpitations, syncope/presyncope, increased shortness of breath, dizziness, or visual field cuts. Her symptoms persisted until the day of admission when her niece convinced her that she needed to go to the emergency department for evaluation. She reports that she takes albuterol, Combivent, Wellbutrin, aspirin, and omeprazole every day and rarely misses her medications. She reports that she has prediabetes and carotid stenosis, but has never been on a cholesterol medicine although she notes she has not had a follow-up for her diabetes or cholesterol in many years. At bedside she feels there is been minimal change in her symptoms, she feels like her arm has approximately 50% of its normal strength although coordination has somewhat improved. She denies any dysarthria or speech deficits. Her headache is currently a 3/10 and mild, does not throb. Family history: She denies family history of stroke, her mother had an WY at age 74 and her father had an WY at age 64. She reports she thinks her sister and niece had blood clots but she does not know the details of this. Medical history: Reviewed, as above Medications: Reviewed, as above Surgical history: History of cranial surgery for Mnire's disease without complication, section Allergies: No known drug allergies Social: She reports she lives alone, and is able to do all of her activities of daily living independently. She reports she does not drink alcohol but smokes about 1 pack of cigarettes per day and smokes marijuana daily when able. No other recreational drug or cocaine use. She reports that her medical decision maker would be her Lino who lives in [facility] but from whom she is currently . CODE STATUS: Full code Allergies Allergy/AdvReac Type Severity Reaction Status Date / Time No Known Allergies Allergy Verified 02/13/20 15:16 Home Medications Home Medications Medication Instructions Recorded Confirmed Type aspirin [Aspirin Low Dose] 81 mg PO QAM 11/29/18 02/13/20 History albuterol sulfate 90 mcg/actuation 2 puffs INHALATION Q6H PRN #18 gm 01/30/20 02/13/20 Rx aerosol inhaler Combivent Respimat 1 puffs INH QID 02/11/20 02/13/20 History atorvastatin 40 mg PO QAM #30 tab 02/12/20 02/13/20 Rx clopidogrel 75 mg PO DAILY #30 tab 02/12/20 02/13/20 Rx nicotine 1 patch TD DAILY #14 ea 02/12/20 02/13/20 Rx bupropion HCl 150 mg PO QAM 02/13/20 02/13/20 History omeprazole 20 mg PO QAM 02/13/20 02/13/20 History Past Med/Surg History Medical History (Updated 02/13/20 @ 16:35 by Shelbie Freeman PA-C) Asthma Carotid stenosis, left CKD (chronic kidney disease) EARLY STAGE III COPD (chronic obstructive pulmonary disease) CVA (cerebral vascular accident) RECENT HOSPITALIZATION- DX'ED WITH CVA ON 02/11/20- STARTED ON PLAVIX GERD (gastroesophageal reflux disease) History of Meniere's disease History of prediabetes HGB A1C 6.3 ON 02/12/20 Hyperlipidemia Osteoarthritis Surgical History (Updated 02/13/20 @ 16:34 by Shelbie Freeman PA-C) History of appendectomy History of bilateral tubal ligation History of brain surgery 5 YEARS AGO ([facility])>TX MENIERE'S/"SUCCESSFUL" History of cataract surgery RT/LEFT History of section History of cholecystectomy History of colonoscopy History of esophagogastroduodenoscopy (EGD) History of tonsillectomy History of tooth extraction Family History Other Diabetes Heart disease Social History Preferred Language: Czech Communication Ability: Effective 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 Required: No Beliefs That Will Affect Care: None Current Living Situation: Alone Feels Safe at Home: Yes Safety Concerns: Feels Safe At This Time Smoking Status: Current every day smoker Tobacco Type: cigarettes ; Cigarettes Per Day: 20 CIG DAILY (WILL START NICOTINE PATCH AND STOP SMOKING WHEN GETS RX) ; Do You Dip or Chew Tobacco: No ; Second Hand Exposure: No ; Tobacco Cessation Education Requested by Patient: No Hx Alcohol Use: No Hx Substance Use: Yes substance use type: marijuana Last Used Substance: Days (ago) Last Used Substance Other:: LAST USED LAST NIGHT (ADVISED BY NURSING) Review of Systems Review of Systems: Constitutional: Denies fever, chills, weight change. Endorses fatigue Eyes: Denies as noted in HPI ENT: Denies ear pain, sore throat, sinus pain Cardiovascular: Denies Chest pain, chest pressure, palpitations, extremity swelling Respiratory: Dorsal is chronic shortness of breath with exertion due to COPD, denies acute change. Denies cough, sputum production, difficulty breathing Gastrointestinal: Denies abdominal pain,vomiting, constipation, diarrhea. Endorses nausea. Genitourinary: Denies pain with urination, urinary urgency, urinary frequency Musculoskeletal: As noted in HPI Integumentary:Denies rash, lesions, bruising Neurological: As noted in HPI Physical Exam Physical Exam: General: A&Ox3. NAD. Cooperative. HEENT: Atraumatic, normocephalic. No facial asymmetry. Pulm: Mild end expiratory wheeze, moderate air movement. Symmetrical chest rise. No increased work of breathing. No respiratory distress. Cardiac: RRR, -mrg. Radial pulses intact and symmetrical. No carotid bruits. Abdominal: Nontender, nondistended, soft. BS present. CN II: Visual nina are full to confrontation. Pupils are equal and react to light and accomidation. Patient endorses mild blurriness in both eyes. CN III, IV, : At primary gaze, there is no eye deviation. EoM intact without nystagmus. No visual field cuts. CN V: Facial sensation is intact to soft touch in all 3 divisions bilaterally. CN VII: No facial asymmetry, full strength to eyebrow raise, smile, eye close, and cheek puff. CN VII: Hearing is grossly intact. CN IX, X: Palate elevates symmetrically. Phonation is normal without dysarthria. CN XI: Head turning and shoulder shrug are intact CN XII: Tongue protrudes midline. No induction of symptoms on sustained neck extension. No loss of radial pulse on arm/shoulder flexion bilaterally. Sensory: Light touch, pinprick intact in upper and low extremities without deficit or asymmetry. Strength: RUE: Shoulder flexion/extension/internal rotation/external rotation, elbow flexion/extension, finger flexion/extension, director of solutions architecture strength, interosseous 5/5 but qualitatively very slightly weaker compared to the left. LUE: Shoulder flexion/extension/internal rotation/external rotation, elbow flexion/extension, finger flexion/extension, director of solutions architecture strength, interosseous 5/5 RLE: Hip flexion, knee flexion/extension, ankle plantar flexion/dorsiflexion 5/5 LLE: Hip flexion, knee flexion/extension, ankle plantar flexion/dorsiflexion 5/5 Coordination: Rapid alternating movements and fine finger movements are intact. There is no dysmetria on [id number] and [id number]. Results & Data Results & Data ([facility]) Vital Signs (Past 12 Hours) Vital Signs Temp Pulse Resp BP Pulse Ox 02/11/20 18:01 74 17 158/86 H 02/11/20 18:00 81 21 02/11/20 17:50 81 21 138/70 02/11/20 17:45 86 21 02/11/20 17:11 71 26 H 140/73 97 02/11/20 17:00 74 22 96 02/11/20 16:50 81 18 128/100 95 02/11/20 16:30 80 22 02/11/20 16:25 85 19 02/11/20 16:08 36.7 C 41 L 19 132/84 96 Supervising Physician Co-Signing Physician Notes Attending addendum: I have physically seen this patient, have supervised the medical residents activities, and agree with the H&P unless as otherwise noted. Assessment and Plan: Subacute CVA/residual right-sided weakness- CT without contrast shows left cerebral embolic subacute infarcts. The patient will be admitted to telemetry for serial cardiac enzymes, serial EKG's, cardiac rhythm monitoring and a 2-D echocardiogram with Dopplers. MRI brain pending. Hypercoagulable work-up Ischemic stroke without TPA protocol order set. Noted LICA stenosis of 80%, 30 to 50% JACY stenosis, and moderate to severe vertebral artery stenosis. Consult PT/OT/elementary school social worker/neuro Aggressive risk factor modification including tobacco cessation and weight loss counseling. Check hemoglobin A1c and fasting lipid panel High-dose statin On aspirin 81 mg daily, give additional 3 baby aspirin now. Neurology to decide on addition of Plavix Remainder of orders and notations as noted. Resident Activity Tracking Resident Involvement: Resident Care Provided Care Provided: Adult Hospital Medicine (1) COPD (chronic obstructive pulmonary disease) COPD type: chronic bronchitis Chronic bronchitis type: unspecified Qualified Code(s): J42 - Unspecified chronic bronchitis (2) CVA (cerebral vascular accident) CVA mechanism: unspecified Qualified Code(s): I63.9 - Cerebral infarction, unspecified
[2020-02-11] MEDS ORDERED: POLYETHYLENE (MIRALAX) 17 GM PACK PO PRN (22:12)
[2020-02-11] MEDS ORDERED: PHARMACIST DISCHARGE MED REC CONSULT PRN (22:12)
[2020-02-11] MEDS ORDERED: ACETAMINOPHEN 325 MG TAB PO PRN (22:12)
[2020-02-11] MEDS ORDERED: GLUCOSE 10 TABS/TUBE PO PRN (22:43)
[2020-02-11] MEDS ORDERED: GLUCAGON FOR INJ 1 MG VIAL SQ PRN (22:43)
[2020-02-11] MEDS ORDERED: GLUCOSE 40% GEL 15 GM TUBE PO PRN (22:43)
[2020-02-11] MEDS ORDERED: CARBOHYDRATES FOR HYPOGLYCEMIA PO PRN (22:43)
[2020-02-11] MEDS ORDERED: DEXTROSE 50% 50 ML SYRINGE IV PRN (22:43)
[2020-02-11] MEDS: IPRATROPIUM BROMIDE/ALBUTEROL respimat INH INH SCH (23:31)
[2020-02-12 05:56] LABS: Estimated Average Glucose 134 mg/dl; Hemoglobin A1C 6.3 % (4.5-5.6)
[2020-02-12 06:03] LABS: Basophils # (auto) 0.04 K/uL (0-0.2); Basophils % (auto) 0.5 %; Eosinophils % (auto) 1.3 %; Hematocrit (blood only) 36.7 % (37-47); Hemoglobin 12.2 g/dL (12.0-16.0); Immature Granulocytes # (auto) 0.03 K/uL (0.00-0.02); Immature Granulocytes % (auto) 0.4 %; Lymphocytes % (auto) 38.9 %; Mean Corpuscular Hemoglobin 31.5 pg (25-34); Mean Corpuscular Hgb Conc 33.2 g/dL (32-36); Mean Corpuscular Volume 94.8 fL (80-100); Mean Platelet Volume 10.9 fL (7.4-10.4); Monocytes % (auto) 11.7 %; Neutrophils # (auto) 3.65 K/uL (1.4-6.5); Neutrophils % (auto) 47.2 %; Platelet Count 235 K/uL (130-400); RDW Coefficient of Variation 13.1 % (11.5-14.5); RDW Standard Deviation 44.6 fL (36.4-46.3); Red Blood Count 3.87 M/uL (4.2-5.4); White Blood Count 7.72 K/uL (4.8-10.8)
[2020-02-12 06:17] LABS: BUN Creatinine Ratio 13.2 (10-20); Calcium 8.7 mg/dl (8.5-10.1); Creatinine Clr Calc Pharmacy 54.6 ml/min; Est GFR (African American) 56.6; Est GFR (Non-African American) 48.9
--- NOTE | 2020-02-12 06:38 | Magnetic Resonance Report ---
MRI OF THE BRAIN WITHOUT CONTRAST CLINICAL HISTORY: Headache, blurred vision, right hand weakness. Possible acute stroke. COMPARISON STUDY: CT scan dated 02/11/2020 FINDINGS: Sagittal T1, axial diffusion, proton density and T2 weighted axial, coronal FLAIR, and axial T1-weigh jeri images were acquired. No intra or extra-axial mass lesions are visualized There are foci of restricted water diffusion involving the left frontal lobe, left parietal lobe, and left occipital lobe. The findings are consistent with acute/subacute infarcts. No right hemispheric infarcts are visualized. There is no evidence of ventricular dilatation. Proton density T2-weighted and FLAIR images reveal scattered foci of increased T2 signal within the w sophy matter, likely on a small vessel basis. In addition there are foci of increased T2 and FLAIR sig nal corresponding to the infarcts described above. There are no abnormal flow voids. IMPRESSION: 1. Multiple scattered foci of restricted water diffusion within the left hemisphere with involvement of the left frontal parietal and occipital lobes. The findings are indicative of acute/subacute infar cts ACT 112: Negative or not required by law. Electronically signed by: Zhen Yañez M.D. 02/12/2020 6:37 AM
[2020-02-12] MEDS: IPRATROPIUM BROMIDE/ALBUTEROL respimat INH INH SCH ×3 (08:36→17:46)
[2020-02-12] MEDS: INSULIN ASPART 100 UNITS/ML 3 ML PEN SC SCH ×3 (08:48→18:08)
[2020-02-12] MEDS ORDERED: PANTOprazole 40 MG TAB PO SCH (09:00)
[2020-02-12] MEDS ORDERED: BuPROPion SR 150 MG TABCR PO SCH (09:00)
[2020-02-12] MEDS ORDERED: ASPIRIN 81 MG ECTAB PO SCH (09:00)
[2020-02-12] MEDS ORDERED: ATORVASTATIN 40 MG TAB PO SCH (09:00)
[2020-02-12] MEDS ORDERED: NICOTINE 7 MG/24 HR TDSY TD SCH (09:00)
--- NOTE | 2020-02-12 10:03 | Neurology Consultation ---
Date of Consultation February 12, 2020 Assessment & Plan (1) CVA (cerebral vascular accident): Multifocal left hemispheric stroke likely related to a symptomatic stenosis of the proximal left internal carotid artery. Fortunately, patient does not have any residual neurological deficits at this time. Tobacco abuse, prediabetes, and a history of hyperlipidemia are risk factors for this patient. Agree with vascular surgery consultation. Patient would be an appropriate candidate for carotid endarterectomy. Follow-up with transthoracic echocardiogram results. Would consider adding clopidogrel 75 mg/day to patient's medication regimen depending on timing of potential carotid endarterectomy to be determined by vascular surgery. Agree with atorvastatin as ordered. Smoking cessation. (2) Carotid artery stenosis: Symptomatic, 80% stenosis of the proximal left internal carotid artery. Agree with vascular surgery consultation as above. Statin and antiplatelet therapy as above. History of Present Illness Reason for Consultation: stroke Requesting Physician: Eric Polo MD Attending Physician: John De Oliveira DO History of Present Illness The patient is a 64-year-old right-handed female with a chief complaint of right hand weakness and associated vision loss to the right side that began acutely 3 days prior to her assessment in the emergency department yesterday. The patient indicates that her symptoms had significantly improved by the time she was evaluated in the emergency department and currently are resolved. She does complain of a mild left frontal headache at this time. She denies experiencing any change in speech or swallowing. She denies any associated weakness of the legs. Past medical history notable for cigarette smoking, carotid stenosis, and COPD. She has been taking a daily baby aspirin and recalls being prescribed a statin in the past but is not on any lipid-lowering medication at this time. Allergies Allergy/AdvReac Type Severity Reaction Status Date / Time No Known Allergies Allergy Verified 02/11/20 16:50 Home Medications Home Medications Medication Instructions Recorded Confirmed Type aspirin [Aspirin Low Dose] 81 mg PO DAILY 11/29/18 02/11/20 History omeprazole 20 mg capsule,delayed 20 mg PO DAILY #30 cap 12/01/19 02/11/20 Rx release albuterol sulfate 90 mcg/actuation 2 puffs INHALATION Q6H PRN #18 gm 01/30/20 02/11/20 Rx aerosol inhaler bupropion HCl 150 mg tablet,12 hr 150 mg PO DAILY #90 ea 01/30/20 02/11/20 Rx sustained-release ipratropium-albuterol [Combivent 1 puffs INH QID 02/11/20 02/11/20 History Respimat] Patient History Medical History Asthma (Chronic) COPD (chronic obstructive pulmonary disease) (Chronic) Pneumonia (Chronic) Surgical History History of brain surgery History of section Family History Other Diabetes Heart disease Social History Preferred Language: Kittitian Communication Ability: Effective Wireless Sales Manager Required: No Beliefs That Will Affect Care: None Current Living Situation: Alone Other Information That Helps Us Care for You: No Feels Safe at Home: Yes Safety Concerns: Feels Safe At This Time Smoking Status: Current every day smoker Second Hand Exposure: No ; Tobacco Cessation Education Requested by Patient: No Hx Alcohol Use: No Hx Substance Use: Yes substance use type: marijuana Last Used Substance: Days (ago) Review of Systems Constitutional: no fever, no chills and no fatigue Eyes: as per Subjective / HPI; no diplopia and no eye pain Ear, Nose, Mouth, Throat: no ear pain and no hearing loss Respiratory: no cough and no dyspnea Cardiovascular: no chest pain and no palpitations Gastrointestinal: no nausea and no vomiting Genitourinary: no dysuria and no urinary incontinence Musculoskeletal: no neck pain and no myalgia Integumentary: no rash and no lesions Neurologic: as per Subjective / HPI, + localized weakness and + headache(s); no syncope, no confusion and no memory loss Psychiatric: no depression and no anxiety Hematologic / Lymphatic: no easy bleeding and no easy bruising Exam (Neuro) Constitutional: well developed and well nourished; no acute distress Eyes: normal visual nina by confrontation, PERRL, normal accommodation and EOM intact bilaterally; no nystagmus Direct ophthalmoscopic examination deferred due to requirement to wear face shield in the context of the COVID-19 pandemic. Cardiovascular: Vessels: normal carotid upstroke; no carotid bruit Neurologic: Oriented to:: Person, Place and Time Memory: Short Term Intact and Remote Intact Attention: Span Intact and Concentration Intact Language: Naming Objects and Repeating Phrases Speech Fluency: negative Dysarthria Speech Aphasia: negative Aphasia Fund of Knowledge: Current Events, Past History and Vocabulary Cranial Nerves: Normal II (Visual nina full to confrontation, visual acuity normal), III, IV, (Pupils equal round reactive to light and accommodation, eye movements normal), V (Facial sensation intact), VII (There is no facial droop or weakness), VIII (Hearing intact), IX, X (Palate elevates to midline), XI (Shoulder shrug intact) and XII (Tongue protrudes to midline) Motor Strength: Normal Lower Extremities and Normal Upper Extremities; negative Pronator Drift Motor Tone: Normal Lower Extremities and Normal Upper Extremities Muscle Bulk/Involuntary Movements: No Involuntary Movements; negative Muscle Atrophy Sensation: Light Touch Intact, Pain/Temperature Intact, Vibration Intact and Proprioception Intact Coordination: Normal; negative Limited Balance, Dysdiadochokinesia, Finger-Nose Abnormal and Heel-Mariscal Abnormal Deep Tendon Reflexes: Rt Triceps: 2+, Lt Triceps: 2+, Rt Biceps: 2+, Lt Biceps: 2+, Rt Brachioradialis: 2+, Lt Brachioradialis: 2+, Rt Patellar: 2+, Lt Patellar: 2+, Rt Ankle: 2+ and Lt Ankle: 2+ Special Tests: negative Babinski Present Gait: Normal Station and Gait Results & Data ([facility]) Vital Signs (Past 12 Hours) Vital Signs Temp Pulse Pulse Resp BP BP Pulse Ox 02/12/20 07:00 36.4 C L 76 16 112/74 97 02/12/20 03:57 36.4 C L 69 20 99/64 L 98 02/11/20 22:59 36.7 C 71 16 147/80 H 96 02/11/20 22:14 36.8 C 82 17 152/83 H 17 L 02/11/20 21:39 36.7 C 18 133/100 93 Laboratory Results WBC 7.72, hemoglobin 12.2, hematocrit 36.7, platelet count 235, sodium 141, potassium 4.0, BUN 16, creatinine 1.17, glucose 86, hemoglobin A1c 6.3, triglycerides 143, cholesterol 186, LDL 124, VLDL 29, HDL [address] of the head was negative for hemorrhage but did suggest multifocal subacute infarcts within the left cerebral hemisphere. I reviewed the images as well as the radiologist's interpretation of this test. A CT angiogram of the head is negative for thrombus, occlusion, or aneurysm. I reviewed the images as well as the radiologist interpretation of this test. A CT angiogram of the neck reveals an 80% stenosis at the proximal left internal carotid artery and chronic occlusion of the left external carotid artery with distal reconstitution. There is a less than 50% stenosis of the proximal right internal carotid artery. There is severe stenosis at the origin of the left vertebral artery and moderate stenosis at the origin of the right vertebral artery. There is mild to moderate stenosis at the origin of the left common carotid and left subclavian arteries. I reviewed the images as well as the radiologist's interpretation of this test. MRI of the brain reveals multifocal, scattered, acute/subacute infarcts within the left cerebral hemisphere involving the left frontal, parietal, and occipital lobes. I reviewed the images as well as the radiologist interpretation of this test. An electrocardiogram reveals a sinus rhythm with occasional PVCs, 78 bpm. Coding Level of Care Code 44267 Initial In Care Lvl 3 Diagnoses CVA (cerebral vascular accident) I63.9 CVA mechanism: unspecified Carotid artery stenosis I65.29 (1) CVA (cerebral vascular accident) CVA mechanism: unspecified Qualified Code(s): I63.9 - Cerebral infarction, unspecified
--- NOTE | 2020-02-12 13:23 | XCELERA ---
[id number]
--- NOTE | 2020-02-12 13:44 | Consultation ---
Date of Consultation February 12, 2020 Assessment & Plan (1) Carotid artery stenosis: Pt with approx 80% stenosis of L ICA and noted L hemispheric CVA. Her sx have resolved. Pt discussed with Dr Orozco, he recommends pt undergo L CEA. Procedure discussed at length with pt, she expresses understanding. Planning on next week in OR. Can be done as outpt, recommend plavix continued til surgery. Present on Admission?: Yes History of Present Illness Reason for Consultation: L ICA stenosis, CVA Attending Physician: John De Oliveira DO History of Present Illness 64 yo f with hx of HTN, hyperlipidemia, Meniere's disease, depression, GERD, COPD, pulmonary nodules, admitted with acute CVA and noted to have L ICA stenosis of 80%, seen in consultation today for same. Pt states she was at home and noted her R fingers were numb approx 3 days ago. States also having difficulty with accuracy when only using her R eye for vision. Denies amaurosis, lower extremity problems, facial droop, speech problems, confusion, prior similar sx, VELEZ, fever, chest pain, SOb, abd pain, N/V, rest pain, claudication, other complaitns. Pt states her R finger numbness has resolved, but still thinks her R eye vision isn't completely resolved. CTA neck demonstrates approx 80% stenosis of L ICA. Allergies Allergy/AdvReac Type Severity Reaction Status Date / Time No Known Allergies Allergy Verified 02/11/20 16:50 Home Medications Home Medications Medication Instructions Recorded Confirmed Type aspirin [Aspirin Low Dose] 81 mg PO DAILY 11/29/18 02/11/20 History omeprazole 20 mg capsule,delayed 20 mg PO DAILY #30 cap 12/01/19 02/11/20 Rx release albuterol sulfate 90 mcg/actuation 2 puffs INHALATION Q6H PRN #18 gm 01/30/20 02/11/20 Rx aerosol inhaler bupropion HCl 150 mg tablet,12 hr 150 mg PO DAILY #90 ea 01/30/20 02/11/20 Rx sustained-release ipratropium-albuterol [Combivent 1 puffs INH QID 02/11/20 02/11/20 History Respimat] Patient History Medical History Asthma (Chronic) COPD (chronic obstructive pulmonary disease) (Chronic) Pneumonia (Chronic) Surgical History History of brain surgery History of section Family History Other Diabetes Heart disease Social History Preferred Language: Georgian Communication Ability: Effective Video Games Mechanic Required: No Beliefs That Will Affect Care: None Current Living Situation: Alone Other Information That Helps Us Care for You: No Feels Safe at Home: Yes Safety Concerns: Feels Safe At This Time Smoking Status: Current every day smoker Second Hand Exposure: No ; Tobacco Cessation Education Requested by Patient: No Hx Alcohol Use: No Hx Substance Use: Yes substance use type: marijuana Last Used Substance: Days (ago) Review of Systems Review of Systems: All systems reviewed & are unremarkable except as noted in HPI & below Physical Exam Constitutional: WD/WN, vitals as above + obese, healthy appearing, cooperative and comfortable; not in distress and not combative Eyes: PERRL, conjunctivae normal, anicteric sclerae ENMT: external ear and nose normal, oropharynx normal Ears: no hearing impairment Neck: trachea midline, no thyromegaly Respiratory: normal respiratory effort; no respiratory distress Auscultation: + diminished lung sounds Cardiovascular: RRR, no murmur, no edema Vessels: posterior tibial pulses present, dorsalis pedis pulses present, brachial pulses present and radial pulses present; + abnormal peripheral pulses Gastrointestinal (Abdomen): normal bowel sounds, soft, nontender, no hepatosplenomegaly Musculoskeletal: no cyanosis or clubbing, extremities motor strength 5/5 Extremities: extremities normal to inspection and strength 5/5 throughout Skin: no rashes, warm and dry Neurologic: moves all extremities and awake; no focal motor deficits and not confused Psychiatric: A+Ox3, euthymic affect Results & Data Vital Signs (Past 12 Hours) Vital Signs Temp Pulse Resp BP Pulse Ox 02/12/20 11:44 36.6 C 89 22 112/75 94 02/12/20 07:00 36.4 C L 76 16 112/74 97 02/12/20 03:57 36.4 C L 69 20 99/64 L 98
--- NOTE | 2020-02-12 13:59 | Electrocardiogram Report ---
Test Reason : Blood Pressure : / mmHG Vent. Rate : 078 BPM Atrial Rate : 078 BPM P-R Int : 142 ms QRS Dur : 078 ms QT Int : 398 ms P-R-T Axes : 013 068 052 degrees QTc Int : 453 ms Sinus rhythm with occasional Premature ventricular complexes Otherwise normal ECG When compared with ECG of 29-NOV-2018 17:31, Premature ventricular complexes are now Present Confirmed by Bassem Jenkins ([id number]) on 02/12/2020 1:58:45 PM Referred By: Jose Elias Valdez Confirmed By:Bassem Jenkins
[2020-02-12] MEDS ORDERED: STROKE PATIENT DISCHARGE STA (15:44)
--- NOTE | 2020-02-12 16:36 | Pharmacy Report ---
Pharmacist Stroke Counseling - Date of Service February 12, 2020 - Scope: Pharmacy has been consulted to provide medication discharge counseling for this patient admitted with [ischemic stroke] [hemorrhagic stroke] [transient ischemic attack] as per the Pharmacist Discharge Counseling for Stroke Patients Protoc . - Medications on Discharge: Home Medications Medication Instructions Recorded Confirmed aspirin [Aspirin Low Dose] 81 mg PO DAILY 11/29/18 02/11/20 ipratropium-albuterol [Combivent 1 puffs INH QID 02/11/20 02/11/20 Respimat] New Rx's Medication Instructions Recorded omeprazole 20 mg capsule,delayed 20 mg PO DAILY #30 cap 12/01/19 release albuterol sulfate 90 mcg/actuation 2 puffs INHALATION Q6H PRN #18 gm 01/30/20 aerosol inhaler bupropion HCl 150 mg tablet,12 hr 150 mg PO DAILY #90 ea 01/30/20 sustained-release atorvastatin 40 mg PO QAM #30 tab 02/12/20 clopidogrel 75 mg PO DAILY #30 tab 02/12/20 nicotine 1 patch TD DAILY #14 ea 02/12/20 - Action: The above medications, specifically ones for stroke treatment/prophylaxis, have been reviewed in detail with the patient and/or patient novelties sales representative(s) prior to discharge. This includes indication, common adverse reactions, drug interactions, and medication administration. Medication counseling has been employed using the teach-back method to ensure understanding. - Outcome: The patient and/or patient novelties sales representative(s) have demonstrated understanding of the medications. Please note, they are aware that the pharmacist will call them within 72 hours post-discharge to confirm that the appropriate medications are being taken and answer any further medication related questions the patient might have at that time. Contact information Individual to be contacted: Radha Phone number: [phone] Best time to call: after 10 AM Additional comments: * Counseled patient on two new medicines: plavix 75 mg PO daily and atorvastatin 40 mg PO daily * Explained to Radha that she will need to take both ASA + plavix daily until directed otherwise - advised her to verify with Dr. Orozco after surgery * Reviewed signs and symptoms of bleeding extensively * During conversation with patient, she expressed that she will be unable to go to a pharmacy tonight. I advised her that she received a dose of atorvastatin this morning at 0900 and will not require another dose for 24 hours from that time. She has not received Plavix this admission. I notified RN who stated they will check with provider to see if dose should be given prior to discharge. Thank you for allowing pharmacy to be involved in the care of this patient. Please call [phone] or [phone] with any additional questions
[2020-02-12] MEDS ORDERED: CLOPIDOGREL BISULFATE 75 MG TAB PO SCH ×2 (17:30→18:00)
--- NOTE | 2020-02-12 18:10 | Discharge Summary ---
Date of Service February 12, 2020 Admission HPI Per Admitting Provider Mrs. 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 Patient reports her symptoms began on Sunday, 3 days prior to admission, when she noticed sudden numbness/tingling, slight weakness, and poor coordination in her right arm and hand. She notes that the right hand "felt funny, and I could not even hit the ashtray ". She continued to have difficulty throughout that afternoon and found herself frequently dropping things throughout the day. She had a mild headache with mild blurry vision, and some nausea without vomiting. She did not experience any balance problems or weakness in her legs she did not have any chest pain, chest pressure, palpitations, syncope/presyncope, increased shortness of breath, dizziness, or visual field cuts. Her symptoms persisted until the day of admission when her niece convinced her that she needed to go to the emergency department for evaluation. She reports that she takes albuterol, Combivent, Wellbutrin, aspirin, and omeprazole every day and rarely misses her medications. She reports that she has prediabetes and carotid stenosis, but has never been on a cholesterol medicine although she notes she has not had a follow-up for her diabetes or cholesterol in many years. At bedside she feels there is been minimal change in her symptoms, she feels like her arm has approximately 50% of its normal strength although coordination has somewhat improved. She denies any dysarthria or speech deficits. Her headache is currently a 3/10 and mild, does not throb. Family history: She denies family history of stroke, her mother had an IA at age 74 and her father had an IA at age 64. She reports she thinks her sister and niece had blood clots but she does not know the details of this. Medical history: Reviewed, as above Medications: Reviewed, as above Surgical history: History of cranial surgery for Mnire's disease without complication, section Allergies: No known drug allergies Social: She reports she lives alone, and is able to do all of her activities of daily living independently. She reports she does not drink alcohol but smokes about 1 pack of cigarettes per day and smokes marijuana daily when able. No other recreational drug or cocaine use. She reports that her medical decision maker would be her Lino who lives in [facility] but from whom she is currently . CODE STATUS: Full code Principal Diagnosis CVA - due to carotid artery stenosis (which was due primarily to cigarette smoking and also hyperlipidemia) Discharge Exam gen aao pleasant nad heent nc at mmm breathing unlabored no accessory muscles good effort skin no rashes no pallor or icterus neuro shows surprisingly no notable deficits mental status good recent and remote recall normal mood and affect good judgement and insight. Discharge Data Allergies Allergy/AdvReac Type Severity Reaction Status Date / Time No Known Allergies Allergy Verified 02/11/20 16:50 Consultations 02/11/20 18:28 ED Decision to Admit Stat 02/11/20 22:12 Consult Case Management - Discharge Planning Routine Consult Neurology Routine 02/12/20 08:27 Consult Vascular Surgery Routine Ordered Studies 02/11/20 16:28 CT angio head w con Stat CT angio neck with con Stat CT head/brain wo con Stat 02/11/20 20:42 MR brain wo con Stat Hospital Course (1) CVA (cerebral vascular accident): -sadly noticed because she was having trouble getting ashes into ashtray when smoking; fortunately deficits appear to have improved -stable for home -secondary risk reduction: -appears to have been carotid stenosis mediated stroke - for CEA -atorvastatin 40mg for plaque stabilization/lipid reduction -dual antiplatelet for now, anticipate over time and follow up reducing from asa/plavix to simply plavix - timeline to be determined based on her clinical progress -smoke cessation critical - discussed in detail and at length (see instructions given to pt for summary of this) -lifestyle change (see instructions as well) -BP surprisingly OK despite CVAs (2) Carotid artery stenosis: vascular evaluated -for CEA in near future (3) COPD (chronic obstructive pulmonary disease): no breathing complaints during her stay -smoke cessation as above (4) History of prediabetes: A1c 6.3 - so doubt this was strong contributor to stroke, but is certainly a burdgeoning risk for future vascular disease - lifestyle change (5) Hyperlipidemia: -atorvastatin 40mg for now - will affect plaque stabilization and should get lipid numbers to framingham type goals -- but if not at those goals in ~12wks would increase to 80mg -lifestyle change (6) CKD (chronic kidney disease): appears probably stage 2 and stable (7) DVT prophylaxis: ambulation Total Time Total Time Spent Total Time Spent (In Minutes): >30 Discharge Plan Discharge Items Patient Disposition: Home - Self-Care Reason For Visit: R WEAKNESS, ? STROKE Discharge Diagnosis: stroke caused by blockage in left carotid artery Activity: Resume your previous activity Non-emergency contact: Primary Care Provider, Surgeon and Neurologist Call non-emergency contact if: you have any medication questions and your symptoms worsen Follow-up/Referrals: Jose Elias Valdez MD [Primary Care Provider] - Diet: Heart Healthy Addtl Attending Provider Instructions: stroke -a stroke is when there is a blockage of blood flow that kills off a section of brain tissue. your MRI actually shows that there were several areas affected. fortunately though, what matters far more than what shows up on the images is that you are not showing much of what we call "neurologic deficits" - meaning that you don't have much of any ongoing numbness/weakness from the strokes. because of this, the main work to be done is in doing everything we can to protect your brain from having another one -your stroke appears to have been caused by a blockage specifically in the left carotid artery - in addition to medications and lifestyle measures to reduce blocking arteries in the future, it's also very much to your benefit to get that blockage cleaned out medications -as is the case with any vascular disease, getting you on a good medical regimen goes a long way to protecting your brain from having another stroke. to that end, we've added plavix (clopidogrel) and lipitor (atorvastatin) to your prior medical regimen -plavix (clopidogrel) - this is an "antiplatelet" blood thinner - kind of a "stronger" cousin to aspirin. it acts to keep the first stage of clots from forming in blood vessels. usually after a stroke like you had, we'll have people on both for a period of time (which does vary from person to person - sometimes as little as a week or so on both, sometimes as much as a few months on both) - but then we'll be able to drop the aspirin and have you on the plavix (clopidogrel) alone. as is the case with aspirin, the main side effects are bleeding related - nosebleeds/if you cut yourself it can be a bigger deal/and (to a lesser degree than aspirin usually) bleeding stomach ulcers/GI bleeding. most people tolerate being on both fine; Dr Orozco, Dr Golden, and Dr Valdez will be able to guide you on how long to be on both, and when to drop the aspirin to just the plavix alone -lipitor (atorvastatin) - "good" statin medicines (basically just lipitor and crestor - and even then usually only at medium to high doses) act as more than just something to lower your cholesterol numbers. they do that, but in addition to lowering your cholesterol numbers they also stabilize the plaque that is already in arteries, making it less likely that they'll break loose. additionally, 40mg of atorvastatin should get your actual cholesterol numbers either at-goal or at least very close (and then depending on how much lifestyle changes have taken place, the lifestyle changes may do the rest, or they may need to bump you up to 80mg). as far as goals - we'd want to see your LDL (currently 124) at less than 70; and we'd want to see your "non-HDL" (subtract your good (HDL) from your total and you essentially get the number of artery clogging particles) to be less than 100 (your total is 186 with a good of 33, giving you a non-HDL of 155). lipitor is usually really well tolerated. the main thing to watch for would be muscle aches (NOTE, THIS IS NOT AN ACCENTUATION OF REGULAR ACHES AND PAINS It would be a totally unique new muscle ache/cramp feeling almost like you have the flu but you don't have the flu -- this is actually pretty rare, and there are even some articles in the medical literature noting that most of the time when a patient thinks the statin is making them ache it probably is something else....but since it does happen, if you were to feel achy all over it would be worth discussions with Dr Valdez). we also follow liver enzymes although serious statin related liver issues are exceedingly rare. lifestyle measures -the single biggest thing you can do to protect yourself from future strokes is to quit smoking. as we discussed, if you keep smoking, then everything else we're doing would be analagous to giving you a towel while you're still in the swimming pool....it just won't do nearly what we need it to for protecting your brain. quitting smoking is tough but now that quitting is a "have to" hopefully that can help a lot -as we discussed, there is a physiologic component to smoking as well as the (usually much bigger) psychological component -physiological --> everyone's brain cells have nicotine receptors. when you smoke the nicotine gets into your brain and stimulates those receptors, creating the pleasure/relax sensation most people get when they smoke. stimulating those receptors over and over leads to more of them, and then more and more receptors leads to the physical side of addiction, as well as withdrawal when you're not filling those receptors with nicotine. when you don't stimulate a receptor at all, the receptors off at about 50% per month -- so usually it takes a few months (about 3 on average) to totally get over the physical addiction IF you're not putting any nicotine in your system. since the patches have helped before they are well worth your while - but remember that eventually you'll want to get rid of them as well, because almost everyone will eventually find their way back to cigarettes if the nicotine addiction is still alive. -psychological --> because of the relaxation feeling that people get when they smoke, people often do smoke as a bit of a "short acting anxiety medicine" -- in fact it hits similar chemicals to what your buproprion hits as well. to try to combat this part of the psychological addiction to smoking, try to come up with other means of stress management (music, taking a walk, prayer, reading, playing a game, etc) -- that way if you have other tools to manage stress and a nxiety, you'll be less likely to find your way back to cigarettes. in addition to the anxiety/psychological, there is also the habit of smoking -- for years if your habits are the same thing, it can be really difficult to be in the same place/situation that is usually "cigarette time" and not smoke -- like we talked - after eating is a frequent hard one for people. so instead of your usual after-meal habits and just trying to get by without a cigarette, leave the dishes and take a walk, or change rooms and listen to some music - do something totally different from what your prior habits were so that you're not sitting there at "cigarette time" with your brain asking where the cigarette is! if you're able to change habits AND combine it with doing something that helps with stress and anxiety management, even better. -exercise is HUGE in protecting people from future vascular events. in a perfect world, work towards a goal of 30 minutes of light cardiovascular exercise a day (something as simple as taking a walk). even if you can't get in a full 30 minutes, more is better than less, and something is better than nothing -eating changes are also huge for vascular disease --> while the "absolutely ideal" diet is likely different from person to person, we know from good research that the overall theme of "lots of fruits and vegetables, not much as far as "bad" (saturated) fats and not much as far as "bad" (simple, starchy, bready, potato-based) carbs, lean sources of protein (chicken without the skin, pork with the fat cut off, fish) does quite well for people. ----> furthering this, while your numbers don't put you into a truly diabetic range, your A1c (a marker of how sugar covered your red blood cells are, that does a nice job in gauging sugar levels for about the last 3 months) suggests that you're heading towards type 2 diabetes. this is something that for most people is almost entirely lifestyle. while quitting smoking is WAY more important, working to back down on simple carbs, starchy carbs, breads, and potatoes should go a long way to preventing you from ever being diabetic carotid surgery -while it sounds scary, carotid "clean out" surgeries are one of the most successful medical interventions we do. 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 Pending Studies at Discharge: No Stand-Alone Forms: Medications to Prevent Stroke, My [facility] [place], Smoking Cessation Medications and DC Order Prescriptions: New atorvastatin 40 mg Tablet 40 mg PO QAM Qty: 30 RF: 0 clopidogrel 75 mg tablet 75 mg PO DAILY Qty: 30 RF: 0 nicotine 21 mg/24 hr patch 24 hour 1 patch TD DAILY Qty: 14 RF: 0 Continued omeprazole 20 mg capsule,delayed release(DR/EC) 20 mg PO DAILY Qty: 30 RF: 5 albuterol sulfate 90 mcg/actuation HFA aerosol inhaler 2 puffs INHALATION Q6H PRN (Reason: Wheezing) Qty: 18 RF: 5 bupropion HCl 150 mg tablet sustained-release 12 hr 150 mg PO DAILY Qty: 90 RF: 0 aspirin [Aspirin Low Dose] 81 mg Tablet,Delayed Release (Dr/Ec) 81 mg PO DAILY RF: 0 Combivent Respimat 20-100 mcg/actuation mist 1 puffs INH QID RF: 0 Discharge Orders: Discharge Order (Routine); Ordered 02/12/20 Ordered By: John Contreras/Other Patient Handouts: A1C Admission Data Admit Date/Time: 02/11/20 20:42 Attending Provider: John De Oliveira Admit Provider: Eric Polo Primary Care Provider: Jose Elias Valdez Other Providers: Konstantin Johnson ; John Golden ; Chad Orozco Other Interventions: Discharge Summary Assessment (RN) Last Done: 02/12/20 16:39 Coding Level of Care Code D/C Day Management >30 mins Diagnoses CVA (cerebral vascular accident) I63.9 CVA mechanism: unspecified Carotid artery stenosis I65.29 COPD (chronic obstructive pulmonary disease) J42 COPD type: chronic bronchitis Chronic bronchitis type: unspecified History of prediabetes Z87.898 Hyperlipidemia E78.5 CKD (chronic kidney disease) N18.9 Chronic kidney disease stage: unspecified stage DVT prophylaxis Z29.9
--- NOTE | 2020-02-14 03:20 | Billing Data ---
Date of Service February 14, 2020 Coding Level of Care Code 35825 Initial Inpt Care Lvl 3
== END 2020-02-12 16:39 | disposition home or self-care (01) | DRG 65 ==
LOC: ED 16:04 → 2S 20:42 → SUATTDRO 20:42 → 2S 21:39

== ENCOUNTER 2020-02-18 05:09 | Inpatient (IN) ==
--- NOTE | 2020-02-13 16:20 | Anesthesiology Consultation ---
Date of Service February 13, 2020 Assessment & Plan (1) Encounter for pre-operative examination: Chart Review Chart Review: Acceptable Risk for Surgery (pending she understands risks AM of surgery ) and Patient NOT seen in Pre Admission Testing Pt admitted to [facility] from 02/11/20-02/12/20= Presented to PCP with right UE numbness/tingling, slight weakness and poor coordination x three days. PCP sent patient to ER- admitted for CVA. Stable for home on 02/12/20. CVA felt secondary to carotid artery disease. Started on statin and dual antiplatelet. Evaluated by vascular - CEA scheduled. COPD- stable- recommended smoking cessation. History of preDM- encouraged lifestyle change. Hyperlipidemia- statin started. CKD- appear probably stage 2 and stable. Seen by neuro while admitted 02/12/20= Multifocal left hemispheric stroke likely related to a symptomatic stenosis of the proximal left internal carotid artery. Fortunately, patient does not have any residual neurological deficits at this time. Agree with vascular surgery consultation. Patient would be an appropriate candidate for carotid endarterectomy. Would consider adding clopidogrel 75 mg/day to patient's medication regimen depending on timing of potential carotid endarterectomy to be determined by vascular surgery. Consults Requested none History Surgery Operation Date: 02/18/20 07:30 Proposed Procedures p Left Carotid Endarterectomy - Chad Orozco MD Height/Weight Height: 5 ft 5 in Weight: 99.79 kg Allergies Allergy/AdvReac Type Severity Reaction Status Date / Time No Known Allergies Allergy Verified 02/18/20 05:40 Medications Home Medications Medication Instructions Recorded Confirmed Last Taken aspirin [Aspirin Low Dose] 81 mg PO QAM 11/29/18 02/18/20 02/18/20 04:30 albuterol sulfate 90 mcg/actuation 2 puffs INHALATION Q6H PRN #18 gm 01/30/20 02/18/20 02/18/20 04:30 aerosol inhaler Combivent Respimat 1 puffs INH QID 02/11/20 02/18/20 02/18/20 04:30 atorvastatin 40 mg PO QAM #30 tab 02/12/20 02/18/20 02/18/20 04:30 clopidogrel 75 mg PO DAILY #30 tab 02/12/20 02/18/20 02/16/20 21:00 nicotine 1 patch TD DAILY #14 ea 0402/18/20 02/17/20 08:00 bupropion HCl 150 mg PO QAM 02/13/20 02/18/20 02/18/20 04:30 omeprazole 20 mg PO QAM 02/13/20 02/18/20 02/18/20 04:30 Active Medications Generic Name Dose Route Start Last Admin Trade Name Dangeloq PRN Reason Stop Dose Admin Lactated Ringer's 1,000 mls @ 15 mls/hr 02/18/20 06:00 02/18/20 06:03 Lr IV 02/19/20 05:59 15 mls/hr .Q24H JOHANNA Administration Past Medical History Medical History Asthma Carotid stenosis, left CKD (chronic kidney disease) EARLY STAGE III COPD (chronic obstructive pulmonary disease) CVA (cerebral vascular accident) RECENT HOSPITALIZATION- 'ED WITH CVA ON 02/11/20- STARTED ON PLAVIX GERD (gastroesophageal reflux disease) History of Meniere's disease History of prediabetes HGB A1C 6.3 ON 02/12/20 Hyperlipidemia Osteoarthritis Past Family History Family History Mother Diabetes Sister Diabetes Other Heart disease Past Surgical History Surgical History History of appendectomy History of bilateral tubal ligation History of brain surgery 5 YEARS AGO ([facility]/"SUCCESSFUL" History of cataract surgery RT/LEFT History of section History of cholecystectomy History of colonoscopy History of esophagogastroduodenoscopy (EGD) History of tonsillectomy History of tooth extraction Social History Smoking Status: Current every day smoker tobacco type: cigarettes Smoking cigarettes per day: 20 CIG DAILY (WILL START NICOTINE PATCH AND STOP SMOKING WHEN GETS RX) Do You Dip or Chew Tobacco: No Hx Alcohol Use: No Hx Substance Use: Yes substance use type: marijuana Last Used Substance: Days (ago) Last Used Substance Other:: LAST USED LAST NIGHT (ADVISED BY NURSING) Physical Exam Vital Signs Last Vital Signs Temp 37 C 02/18/20 05:44 Pulse 82 02/18/20 05:44 Resp 20 02/18/20 05:44 BP 119/80 02/18/20 05:44 Pulse Ox 96 02/18/20 05:44 Testing Laboratory Results Blood Type A Positive 02/18/20 05:50 Antibody Screen NEGATIVE 02/18/20 05:50 Laboratory Tests 02/11/20 02/11/20 02/12/20 16:35 17:52 05:29 WBC Hgb Hct Plt Count PT 10.9 INR 1.0 APTT 25.9 Sodium Potassium Chloride Carbon Dioxide BUN Creatinine Glucose Hemoglobin A1c 6.3 H TSH 1.300 02/12/20 02/12/20 05:29 05:29 WBC 7.72 Hgb 12.2 Hct 36.7 L Plt Count 235 PT INR APTT Sodium 141 Potassium 4.0 Chloride 110 H Carbon Dioxide 25 BUN 16 Creatinine 1.17 Glucose 86 Hemoglobin A1c TSH Electrocardiogram Date: 02/11/20 SR with occ PVCs at 78bpm. Compared to EKG from Nov 29, 2018, PVCs are now present Chest X-Ray Date: 02/11/20 Findings: + NAD Echocardiogram Date: 02/12/20 EF: 60-65% LV Function: normal RWMA: + none Other Findings: + LVH (Borderline/concentric ) Valvular Disease: + no significant valvular disease Other Testing Brain MRI 02/11/20= Multiple scattered foci of restricted water diffusion within the left hemisphere with involvement of the left frontal parietal and occipital lobes. The findings are indicative of acute/subacute infarcts Neck CTA 02/11/20= Extensive plaque with 80% stenosis of the proximal left internal carotid artery. Chronic occlusion of the left external carotid artery with distal reconstitution. Less than 50% stenosis of the proximal right internal carotid artery. Mild to moderate stenosis at the origin of the left common carotid and left subclavian arteries, suboptimally assessed on this exam. Severe stenosis at the origin of the left vertebral artery and moderate stenosis at the origin of the right vertebral artery.
[2020-02-18] MEDS ORDERED: LR 15ML/HR IV SCH (06:00)
--- NOTE | 2020-02-18 06:11 | History & Physical Report ---
Date of Service February 18, 2020 History of Present Illness Primary Care Provider: Edwin Valdez MD Patient: DEEPAK CORTEZ Date: 02/11/20 MR#: [id number] Phy: John De Oliveira D.O. Acct ID:[id number] Phy: Edwin Valdez MD Date: 1955Fam Phy: Age: 64Location: 2S Sex: F Room/Bed: [facility] cc: ~ *NOTICE TO RECEIVING [employer]/AGENCY This information is strictly Confidential and protected under [place] law. [place] law prohibits you from making any further disclosure of this information unless further disclosure is expressly permitted by the written consent of the person to whom it pertains or is authorized by law. A general authorization for the release of medical or other information is not sufficient for this purpose. Hospital accepts no responsibility if the information is made available to any other person, INCLUDING THE PATIENT. Date of Consultation February 12, 2020 Assessment & Plan (1) Carotid artery stenosis: Pt with approx 80% stenosis of L ICA and noted L hemispheric CVA. Her sx have resolved. Pt discussed with Dr Orozco, he recommends pt undergo L CEA. Procedure discussed at length with pt, she expresses understanding. Planning on next week in OR. Can be done as outpt, recommend plavix continued til surgery. Present on Admission?: Yes History of Present Illness Reason for Consultation: L ICA stenosis, CVA Attending Physician: John De Oliveira, DO History of Present Illness 64 yo f with hx of HTN, hyperlipidemia, Meniere's disease, depression, GERD, COPD, pulmonary nodules, admitted with acute CVA and noted to have L ICA stenosis of 80%, seen in consultation today for same. Pt states she was at home and noted her R fingers were numb approx 3 days ago. States also having difficulty with accuracy when only using her R eye for vision. Denies amauros is, lower extremity problems, facial droop, speech problems, confusion, prior similar sx, VELEZ, fever, chest pain, SOb, abd pain, N/V, rest pain, claudication, other complaitns. Pt states her R finger numbness has resolved, but still thinks her R eye vision isn't completely resolved. CTA neck demonstrates approx 80% stenosis of L ICA. Allergies Allergy/AdvReac Type Severity Reaction Status Date / Time No Known Allergies Allergy Verified 02/11/20 16:50 Home Medications Home Medications Medication Instructions Recorded Confirmed Type aspirin [Aspirin Low Dose] 81 mg PO DAILY 11/29/18 02/11/20 History omeprazole 20 mg capsule,delayed 20 mg PO DAILY #30 cap 12/01/19 02/11/20 Rx release albuterol sulfate 90 mcg/actuation 2 puffs INHALATION Q6H PRN #18 gm 01/30/20 02/11/20 Rx aerosol inhaler bupropion HCl 150 mg tablet,12 hr 150 mg PO DAILY #90 ea 01/30/20 02/11/20 Rx sustained-release ipratropium-albuterol [Combivent 1 puffs INH QID 02/11/20 02/11/20 History Respimat] Patient History Medical History Asthma (Chronic) COPD (chronic obstructive pulmonary disease) (Chronic) Pneumonia (Chronic) Surgical History History of brain surgery History of section Family History Other Diabetes Heart disease Social History Preferred Language: Algerian Communication Ability: Effective Production Generalist Required: No Beliefs That Will Affect Care: None Current Living Situation: Alone Other Information That Helps Us Care for You: No Feels Safe at Home: Yes Safety Concerns: Feels Safe At This Time Smoking Status: Current every day smoker Second Hand Exposure: No ; Tobacco Cessation Education Requested by Patient: No Hx Alcohol Use: No Hx Substance Use: Yes substance use type: marijuana Last Used Substance: Days (ago) Review of Systems Review of Systems: All systems reviewed & are unremarkable except as noted in HPI & below Physical Exam Constitutional: WD/WN, vitals as above + obese, healthy appearing, cooperative and comfortable; not in distress and not combative Eyes: PERRL, conjunctivae normal, anicteric sclerae ENMT: external ear and nose normal, oropharynx normal Ears: no hearing impairment Neck: trachea midline, no thyromegaly Respiratory: normal respiratory effort; no respiratory distress Auscultation: + diminished lung sounds Cardiovascular: RRR, no murmur, no edema Vessels: posterior tibial pulses present, dorsalis pedis pulses present, brachial pulses present and radial pulses present; + abnormal peripheral pulses Gastrointestinal (Abdomen): normal bowel sounds, soft, nontender, no hepatosplenomegaly Musculoskeletal: no cyanosis or clubbing, extremities motor strength 5/5 Extremities: extremities normal to inspection and strength 5/5 throughout Skin: no rashes, warm and dry Neurologic: moves all extremities and awake; no focal motor deficits and not confused Psychiatric: A+Ox3, euthymic affect Results & Data Vital Signs (Past 12 Hours) Vital Signs Temp Pulse Resp BP Pulse Ox 02/12/20 11:44 36.6 C 89 22 112/75 94 02/12/20 07:00 36.4 C L 76 16 112/74 97 02/12/20 03:57 36.4 C L 69 20 99/64 L 98 Signed By:<Electronically signed by Neha Kam PA-C>02/12/20 1344 <Electronically signed by Chad Orozco MD>02/16/20 1052 Created: 02/12/20 1332 The status of this report is Signed. Draft = Not yet reviewed or approved by Medical Physician. Signed = Reviewed and approved by Medical Physician. Allergies Allergy/AdvReac Type Severity Reaction Status Date / Time No Known Allergies Allergy Verified 02/18/20 05:40 Home Medications Home Medications Medication Instructions Recorded Confirmed Type aspirin [Aspirin Low Dose] 81 mg PO QAM 11/29/18 02/18/20 History albuterol sulfate 90 mcg/actuation 2 puffs INHALATION Q6H PRN #18 gm 01/30/20 02/18/20 Rx aerosol inhaler Combivent Respimat 1 puffs INH QID 02/11/20 02/18/20 History atorvastatin 40 mg PO QAM #30 tab 02/12/20 02/18/20 Rx clopidogrel 75 mg PO DAILY #30 tab 02/12/20 02/18/20 Rx nicotine 1 patch TD DAILY #14 ea 02/12/20 02/18/20 Rx bupropion HCl 150 mg PO QAM 02/13/20 02/18/20 History omeprazole 20 mg PO QAM 02/13/20 02/18/20 History Past Med/Surg History Family History Mother Diabetes Sister Diabetes Other Heart disease Social History Preferred Language: Algerian Communication Ability: Effective Production Generalist Required: No Beliefs That Will Affect Care: None Current Living Situation: Alone Feels Safe at Home: Yes Safety Concerns: Feels Safe At This Time Smoking Status: Current every day smoker Tobacco Type: cigarettes ; Cigarettes Per Day: 20 CIG DAILY (WILL START NICOTINE PATCH AND STOP SMOKING WHEN GETS RX) ; Do You Dip or Chew Tobacco: No ; Second Hand Exposure: No ; Tobacco Cessation Education Requested by Patient: No Hx Alcohol Use: No Hx Substance Use: Yes substance use type: marijuana Last Used Substance: Days (ago) Last Used Substance Other:: LAST USED LAST NIGHT (ADVISED BY NURSING) Results & Data Vital Signs (Past 12 Hours) Vital Signs Temp Pulse Resp BP Pulse Ox 02/18/20 05:44 37 C 82 20 119/94 96
--- NOTE | 2020-02-18 06:14 | History & Physical Bridge Note ---
Date of Service February 18, 2020 History & Physical Bridge Note Patient with severe stenosis of her left internal carotid artery with right upper extremity weakness which resolved. In view of her symptomatic carotid stenosis, a left carotid endarterectomy is recommended as an urgent procedure. The risk of stroke is higher than the risk of acquiring Covid 19. I have examined the patient, reviewed the History & Physical and in the interval since the performance of the History & Physical I have noted the following changes of clinical significance: no changes noted
[2020-02-18] MEDS ORDERED: CEFAZOLIN 2000MG 2,000 MG/15 ML SYR IV ONE (06:33)
[2020-02-18] MEDS ORDERED: CEFAZOLIN 2,000 MG/15 ML IV PUSH IV ONE (06:35)
[2020-02-18] MEDS ORDERED: fentaNYL citrate 100 MCG/2 ML VIAL ONE ×2 (06:55→08:28)
[2020-02-18] MEDS ORDERED: PROPOFOL IV EMULSION 10 MG/ML 20 ML VIAL IV ONE (06:55)
[2020-02-18] MEDS ORDERED: DEXAMETHASONE SOD INJ 4 MG/ML VIAL ONE (06:55)
[2020-02-18] MEDS ORDERED: NEOSTIGMINE METHYLSULFATE 5 MG/5 ML SYR ONE (06:55)
[2020-02-18] MEDS ORDERED: LIDOCAINE HCL 2% 2 ML VIAL/AMP(20MG/ML) INFIL ONE (06:55)
[2020-02-18] MEDS ORDERED: GLYCOPYRROLATE 0.2 MG/ML VIAL ONE ×2 (06:55→09:17)
[2020-02-18] MEDS ORDERED: ONDANSETRON INJ 2 MG/ML 2 ML VIAL ONE ×2 (06:55→08:50)
[2020-02-18] MEDS ORDERED: ROCURONIUM BROMIDE 10 MG/ML 5 ML VIAL ONE (06:56)
[2020-02-18] MEDS ORDERED: PHENYLEPHRINE HCL 10 MG/ML VIAL ONE (06:56)
[2020-02-18] MEDS ORDERED: NITROGLYCERIN/D5W 100 MCG/ML BTL ONE (06:56)
[2020-02-18] MEDS ORDERED: LARYING-O-JET KIT (LTA) ONE (06:56)
[2020-02-18] MEDS ORDERED: LIDOCAINE HCL 1% 20 ML VIAL ONE (07:00)
[2020-02-18] MEDS ORDERED: HEPARIN (PORCINE) 1000 UNIT/ML 10 ML (CATH LAB USE ONLY) ONE (07:00)
[2020-02-18] MEDS ORDERED: BUPIVACAINE/EPINEPHRINE 0.5% MPF 1:200,000 10 ML VIAL ONE (07:01)
[2020-02-18] MEDS ORDERED: THROMBIN FOR SOLN 20000 UNIT KIT ONE (07:01)
[2020-02-18] MEDS ORDERED: CEFAZOLIN 250 MG/ML 1 GM VIAL ONE (07:01)
[2020-02-18] MEDS ORDERED: GELATIN SPONGE SZ 100 ONE (07:01)
[2020-02-18] MEDS ORDERED: fentaNYL citrate 100 MCG/2 ML VIAL IV PRN (07:07)
[2020-02-18] MEDS ORDERED: ATROPINE SULFATE 0.1 MG/ML 10ML SYR IV PRN (07:07)
[2020-02-18] MEDS ORDERED: METOCLOPRAMIDE HCL INJ 5 MG/ML 2 ML VIAL IV PRN (07:07)
[2020-02-18] MEDS ORDERED: ONDANSETRON INJ 2 MG/ML 2 ML VIAL IV PRN ×2 (07:07→09:49)
[2020-02-18] MEDS ORDERED: HYDROmorphone INJ 2 MG/ML SYR/VIAL IV PRN (07:07)
[2020-02-18] MEDS ORDERED: PROMETHAZINE HCL 12.5 MG in SODIUM CHLORIDE 0.9% 50 ML IV PRN (07:07)
[2020-02-18] MEDS ORDERED: ePHEDrine sulfate 50 MG/ML AMP IV PRN (07:07)
[2020-02-18] MEDS ORDERED: ePHEDrine sulfate 50 MG/ML SYR ONE (08:48)
--- NOTE | 2020-02-18 09:47 | Operative Report ---
Post Operative Report Pre & Post Diagnosis Operation Date: 02/18/20 07:30 Pre-Op Diagnosis: Symptomatic Carotid Stenosis Post-Op Diagnosis: Symptomatic Carotid Stenosis I identified the patient and participated in the time-out.: Yes Procedure Operation Date: 02/18/20 07:30 Actual Procedures p Left Carotid Endarterectomy(Left) - Chad Orozco MD Surgeon Chad Orozco MD Script Writer Ortiz,PAC Estimated Blood Loss 50 Findings Consistent with Post-Op Diagnosis Specimens left carotid plaque Anesthesia Type General Complications none Disposition Accompanied Patient To Recovery: No Disposition: Recovery Room Indications Patient is a 64 year old female who suffered a stroke one week ago with good recovery. She was found to have an 80% left carotid stenosis. Left carotid endarterectomy was recommeneded. I have discussed the risks options and benefits of the procedure with the patient. The patient understands the risks options and benefits and agrees to the procedure. Description of Procedure The patient was taken to the operating room and placed in supine position. After general anesthesia was accomplished the left side of the neck was prepped and draped in a sterile manner. The patient was identified and a timeout performed. A longitudinal neck incision was then made coursing along the medial border of the sternocleidomastoid muscle. The incision was taken down through the platysmal layer. The facial vein was identified, ligated, and divided. The common carotid artery was then seen. It was dissected free down to the omohyoid muscle. The dissection was carried upward until the external carotid artery and superior thyroid artery was seen. The superior thyroid artery was slung with a 2-0 silk suture. The external carotid was slung with a red rubber vessel loop. Next the dissection was carried up along the internal carotid artery. This was carried upward to beyond the area of narrowing. The hypoglossal nerve was seen and preserved. The patient was heparinized. After adequate heparinization was accomplished, the internal, external, and common carotid arteries were clamped. A longitudinal arteriotomy was started on the common carotid artery and extended upward along the internal carotid artery to a point beyond the area of narrowing. There was calcified plaque of the internal carotid artery origin causing approximately 85-90% narrowing. A Doppler shunt was then placed in the internal, followed by the common carotid artery and held in place with Casimiro clamps. There was good back bleeding seen from the internal carotid artery. The endarterectomy was then started in the appropriate plane on the common carotid artery. This was carried upward and the external carotid was everted and endarterectomized. The endarterectomy was then carried up along the internal carotid artery till a nice feathering breakoff point was accomplished beyond the end of the plaque. The endarterectomy was then carried down further on the common carotid artery. At end of the arteriotomy, the plaque was then transected. Under loop magnification, all loose debris and flaps werer removed. There is no distal flap seen at the end of the endarterectomy site. The arteriotomy then closed using an Accuseal patch and a running CV 6 [place] suture. This was done in the usual vascular fashion. Prior to completing the closure, the doppler shunt was removed and the internal and common carotid arteries were reclamped. Backbleeding and forward bleeding was allowed to occur. The flow surface was irrigated with heparinized saline. The final few sutures were then placed and securely tied. Clamps were then removed off the external and common carotid arteries. The clamp was then removed the internal carotid artery. Good distal flow was seen. Adequate hemostasis was seen of the patch. The wound was inspected and adequate hemostasis was obtained. The wound was irrigated with antibiotic solution. It was then closed with a running 3-0 Vicryl suture for the platysmal layer and a 4-0 subcuticular Vicryl suture for the skin edges. Dermabond was used for dressing. The patient left the operation room in satisfactory condition and tolerated the procedure well. All needle and sponge counts were correct at the end of the procedure. Neha Kam Pac assisted due to lack of resident availability and was necessary for prepping, draping, retraction, wound closure defects, subQ and skin closure and was necessary for the case. I attest to the content of the Intraoperative Record and any orders documented therein. Any exceptions are noted below.
[2020-02-18] MEDS ORDERED: OXYCODONE/ACETAMINOPHEN 5mg/325mg TAB PO PRN (09:49)
[2020-02-18] MEDS ORDERED: ALBUTEROL HFA 8 GM INHALER INH PRN ×2 (09:53→12:15)
--- NOTE | 2020-02-18 11:23 | Anesthesiology Progress Note ---
Date of Service February 18, 2020 Anesthesia Post Procedure Vital Signs Vital Signs: Temp Pulse Pulse Resp BP BP BP 02/18/20 11:15 77 16 129/70 125/54 L 02/18/20 11:05 36.2 C L 72 14 127/56 L 120/65 02/18/20 10:55 74 16 120/64 121/54 L 02/18/20 10:45 81 20 125/66 137/73 02/18/20 10:35 36 C L 98 H 20 130/71 140/88 02/18/20 05:44 37 C 82 20 119/80 118/65 Pulse Ox 02/18/20 11:15 97 02/18/20 11:05 96 02/18/20 10:55 97 02/18/20 10:45 98 02/18/20 10:35 98 02/18/20 05:44 96 Transfer of Care Handoff Completed per policy Notes Mental Status: alert / awake / arousable and participated in evaluation Patient Amnestic to Procedure: Yes Nausea / Vomiting: adequately controlled Pain: adequately controlled Airway Patency, RR, SpO2: stable & adequate BP & HR: stable & adequate Hydration State: stable & adequate Anesthetic Complications: no major complications apparent
[2020-02-18] MEDS ORDERED: IPRATROPIUM BROMIDE HFA INHALER INH PRN (12:00)
--- NOTE | 2020-02-18 12:15 | Critical Care Consultation ---
Date of Consultation February 18, 2020 Assessment & Plan (1) CVA (cerebral vascular accident): Impression: 64-year-old female with recent admission for stroke found to have carotid stenosis and taken to the OR for carotid endarterectomy today. She is back in the ICU without sequelae. Recommendation: 1. Post carotid endarterectomy: Continue management per vascular surgery. Blood pressure goals per surgeon. Antiplatelet agents deferred to vascular surgery. 2. Hyperlipidemia: Restarting atorvastatin and aspirin. 3. COPD: Would continue inhalers on an as-needed basis. She does not appear bronchospastic currently and is on room air. 4. Await follow-up laboratory studies. Will make additional interventions to the patient's medical regimen as needed. DVT and GI prophylaxis per surgical service. We will continue to follow this patient during her ICU course. Feel free to contact us if we can be of additional assistance. Will sign off when she leaves the ICU (2) CKD (chronic kidney disease): History of Present Illness Attending Physician: Chad Orozco MD History of Present Illness Asked by vascular surgery to assist with critical care management in this patient status post carotid endarterectomy. History is obtained from discussion with the patient as well as review the electronic medical record. Patient is a 64-year-old female with a history of obstructive lung disease admitted with acute CVA last week noted to have left internal carotid artery stenosis 80%. She initially presented with right finger numbness which is now resolved but still has some changes in her right eye. She was taken to the OR today for a left carotid endarterectomy. Procedure was uneventful and the patient returned to the ICU for monitoring. Her blood pressure is acceptable. She is having no neurological complaints currently. Allergies Allergy/AdvReac Type Severity Reaction Status Date / Time No Known Allergies Allergy Verified 02/18/20 05:40 Home Medications Home Medications Medication Instructions Recorded Confirmed Type aspirin [Aspirin Low Dose] 81 mg PO QAM 11/29/18 02/18/20 History albuterol sulfate 90 mcg/actuation 2 puffs INHALATION Q6H PRN #18 gm 01/30/20 02/18/20 Rx aerosol inhaler Combivent Respimat 1 puffs INH QID 02/11/20 02/18/20 History atorvastatin 40 mg PO QAM #30 tab 02/12/20 02/18/20 Rx clopidogrel 75 mg PO DAILY #30 tab 02/12/20 02/18/20 Rx nicotine 1 patch TD DAILY #14 ea 02/12/20 02/18/20 Rx bupropion HCl 150 mg PO QAM 02/13/20 02/18/20 History omeprazole 20 mg PO QAM 02/13/20 02/18/20 History Patient History Medical History Asthma Carotid stenosis, left CKD (chronic kidney disease) EARLY STAGE III COPD (chronic obstructive pulmonary disease) CVA (cerebral vascular accident) RECENT HOSPITALIZATION- DX'ED WITH CVA ON 02/11/20- STARTED ON PLAVIX GERD (gastroesophageal reflux disease) History of Meniere's disease History of prediabetes HGB A1C 6.3 ON 02/12/20 Hyperlipidemia Osteoarthritis Surgical History History of appendectomy History of bilateral tubal ligation History of brain surgery 5 YEARS AGO ([facility] MENIERE'S/"SUCCESSFUL" History of cataract surgery RT/LEFT History of section History of cholecystectomy History of colonoscopy History of esophagogastroduodenoscopy (EGD) History of tonsillectomy History of tooth extraction Family History Mother Diabetes Sister Diabetes Other Heart disease Social History Preferred Language: Solomon Islander Communication Ability: Effective Pastry Baker Required: No Beliefs That Will Affect Care: None Current Living Situation: Alone Feels Safe at Home: Yes Safety Concerns: Feels Safe At This Time Smoking Status: Current every day smoker Tobacco Type: cigarettes ; Cigarettes Per Day: 20 CIG DAILY (WILL START NICOTINE PATCH AND STOP SMOKING WHEN GETS RX) ; Do You Dip or Chew Tobacco: No ; Second Hand Exposure: No ; Tobacco Cessation Education Requested by Patient: No Hx Alcohol Use: No Hx Substance Use: Yes substance use type: marijuana Last Used Substance: Days (ago) Last Used Substance Other:: LAST USED LAST NIGHT (ADVISED BY NURSING) Review of Systems Review of Systems: Please refer to admission H&P. No changes Physical Exam Constitutional: WD/WN, vitals as above Neck: trachea midline, no thyromegaly Respiratory: normal respiratory effort, lungs clear to auscultation Cardiovascular: RRR, no murmur, no edema Gastrointestinal (Abdomen): normal bowel sounds, soft, nontender, no h epatosplenomegaly Musculoskeletal: Extremities: extremities normal to inspection Skin: no rashes, warm and dry Neurologic: Nonfocal exam Lymphatic: no cervical lymphadenopathy Results & Data Results & Data ([facility]) Vital Signs (Past 12 Hours) Vital Signs Temp Pulse Pulse Resp BP BP BP 02/18/20 11:15 77 16 129/70 125/54 L 02/18/20 11:05 36.2 C L 72 14 127/56 L 120/65 02/18/20 10:55 74 16 120/64 121/54 L 02/18/20 10:45 81 20 125/66 137/73 02/18/20 10:35 36 C L 98 H 20 130/71 140/88 02/18/20 05:44 37 C 82 20 119/80 118/65 Pulse Ox 02/18/20 11:15 97 02/18/20 11:05 96 02/18/20 10:55 97 02/18/20 10:45 98 02/18/20 10:35 98 02/18/20 05:44 96 Laboratory Results Laboratory studies from the last week of January were reviewed. CBC was normal. Chemistry panel unremarkable specifically with a creatinine of 1.17 at that time. Hemoglobin A1c was mildly elevated at 6.3. Diagnostic Findings Imaging studies were independently reviewed. Chest x-ray from 02/11/2020 demonstrated no obvious abnormality. There was some blunting of the bilateral costophrenic angles. Spinal spondylolisthesis was noted as well. ACCOUNTANT SUPERVISOR imaging as noted in Dr. Orozco's note Coding Level of Care Code 86029 Inpt Consult Level 3 Diagnoses CVA (cerebral vascular accident) I63.9 CVA mechanism: unspecified CKD (chronic kidney disease) N18.9 Chronic kidney disease stage: unspecified stage (1) CVA (cerebral vascular accident) CVA mechanism: unspecified Qualified Code(s): I63.9 - Cerebral infarction, unspecified (2) CKD (chronic kidney disease) Chronic kidney disease stage: unspecified stage Qualified Code(s): N18.9 - Chronic kidney disease, unspecified
[2020-02-18] MEDS: LACTATED RINGER'S 1,000 ML IV SCH ×2 (13:19→19:31)
[2020-02-18] MEDS ORDERED: ICU PROTOCOL FOR HYPERGLYCEMIA SCH (16:45)
[2020-02-18] MEDS: IPRATROPIUM BROMIDE HFA INHALER INH SCH ×2 (17:01→19:24)
[2020-02-18] MEDS: ALBUTEROL HFA 8 GM INHALER INH SCH ×2 (17:02→19:23)
[2020-02-18] MEDS ORDERED: PHARMACY GLYCEMIC MGMT CONSULT PRN (17:29)
[2020-02-18] MEDS ORDERED: GLUCAGON FOR INJ 1 MG VIAL IM PRN (17:30)
[2020-02-18] MEDS ORDERED: CARBOHYDRATES FOR HYPOGLYCEMIA PO PRN (17:30)
[2020-02-18] MEDS ORDERED: DEXTROSE 50% 50 ML SYRINGE IV PRN (17:30)
[2020-02-18] MEDS ORDERED: GLUCOSE 40% GEL 15 GM TUBE PO PRN (17:30)
[2020-02-18] MEDS ORDERED: GLUCOSE 10 TABS/TUBE PO PRN (17:30)
[2020-02-18] MEDS: INSULIN ASPART 100 UNITS/ML 3 ML PEN SC SCH ×2 (17:58→20:31)
[2020-02-18] MEDS: MoRPHine SULFATE 4 MG/ML 1 ML CARP\\VIAL IV PRN ×2 (18:05→23:56)
[2020-02-18] MEDS: CEFAZOLIN 2000MG 2,000 MG/15 ML SYR IV SCH (19:02)
--- NOTE | 2020-02-18 20:57 | Pharmacy Report ---
Glycemic Control Consultation - Date of Service February 18, 2020 - Scope Scope: Glycemic Pharmacist consulted for glycemic control and to write orders per [facility] inpatient glycemic control protocol. - Objective Weight: 100.1 kg Accuchecks BSG (last 24hrs): 02/18/20 02/18/20 16:30 20:27 POC Glucose 195 H 171 H - Recent Pertinent Medications Outpatient Anti-diabetic Regimen: * n/a * A1c = 6.3 % 02/11 Risk Factors for Insulin Resistance: diet steroids - Assessment & Plan Assessment & Plan: ASSESSMENT: * 64 year old post carotid endarterectomy. Pharmacy consulted for glycemic management. A1C on previous admission indicating pre-diabetes. * Patient did receive steroids this AM in OR therefore anticipate steroid induced hyperglycemia. BSG 195 mg/dL this evening at time of consult * SSI added and BSGs trending down to 171 mg/dL at HS, will hold basal insulin for now as BSGs trending down PLAN FOR INPATIENT GLYCEMIC CONTROL: * Basal insulin * Lantus - hold * Bolus insulin * NovoLog per scale ACHS or Q6hrs while NPO * Goal Range: Low 110 mg/dL - High 140 mg/dL * Correction Factor: 20 mg/dL/unit * Nutritional / Prandial insulin per carb ratio of 1 unit per 7 grams CHO consumed * Please note that the plan above was derived based on current level of insulin resistance and hospital stress. These recommendations are appropriate for inpatient admission only. Plan of care upon discharge will need to be reassessed to avoid potential outpatient hypo/hyperglycemia. Thank you.
[2020-02-19] MEDS: INSULIN ASPART 100 UNITS/ML 3 ML PEN SC SCH ×5 (00:03→12:03)
[2020-02-19] MEDS: LACTATED RINGER'S 1,000 ML IV SCH ×2 (04:03→11:06)
[2020-02-19] MEDS: CEFAZOLIN 2000MG 2,000 MG/15 ML SYR IV SCH (04:03)
[2020-02-19 04:56] LABS: Hematocrit (blood only) 33.8 % (37-47); Hemoglobin 11.2 g/dL (12.0-16.0); Immature Granulocytes # (auto) 0.03 K/uL (0.00-0.02); Immature Granulocytes % (auto) 0.2 %; Lymphocytes # (auto) 1.37 K/uL (1.2-3.4); Lymphocytes % (auto) 11.1 %; Mean Corpuscular Hemoglobin 31.7 pg (25-34); Mean Corpuscular Hgb Conc 33.1 g/dL (32-36); Mean Corpuscular Volume 95.8 fL (80-100); Mean Platelet Volume 10.4 fL (7.4-10.4); Monocytes # (auto) 0.47 K/uL (0.11-0.59); Monocytes % (auto) 3.8 %; Neutrophils # (auto) 10.45 K/uL (1.4-6.5); Neutrophils % (auto) 84.9 %; Platelet Count 268 K/uL (130-400); RDW Coefficient of Variation 12.9 % (11.5-14.5); RDW Standard Deviation 45.1 fL (36.4-46.3); Red Blood Count 3.53 M/uL (4.2-5.4); White Blood Count 12.32 K/uL (4.8-10.8)
[2020-02-19 05:13] LABS: BUN Creatinine Ratio 16.4 (10-20); Calcium 8.6 mg/dl (8.5-10.1); Creatinine Clr Calc Pharmacy 50.2 ml/min; Est GFR (African American) 49.4; Est GFR (Non-African American) 42.6; Magnesium 2.1 mg/dl (1.8-2.4); Phosphorus 2.9 mg/dl (2.5-4.9); Potassium 4.5 mmol/L (3.5-5.1)
[2020-02-19] MEDS: IPRATROPIUM BROMIDE HFA INHALER INH SCH (07:12)
[2020-02-19] MEDS: ALBUTEROL HFA 8 GM INHALER INH SCH (07:13)
[2020-02-19] MEDS: MoRPHine SULFATE 4 MG/ML 1 ML CARP\\VIAL IV PRN (07:27)
--- NOTE | 2020-02-19 07:39 | Critical Care Progress Note ---
Date of Service February 19, 2020 Assessment & Plan (1) CVA (cerebral vascular accident): Impression: 64-year-old female with recent admission for stroke found to have carotid stenosis and taken to the OR for carotid endarterectomy today. She is back in the ICU without sequelae. Recommendation: 1. Post carotid endarterectomy: Continue management per vascular surgery. Antiplatelets per vascular surgery. Okay to discontinue arterial line, she has been hemodynamically stable. She is out of bed and ambulatory. Tolerating a diet. 2. Hyperlipidemia: Continue atorvastatin and aspirin. 3. COPD: Would continue inhalers on an as-needed basis. She does not appear bronchospastic currently and is on room air. 4. Hyperglycemia: Continue sliding scale insulin. The patient carries a histo ry of prediabetes and will need outpatient follow-up with their primary care provider to determine whether long-term oral hypoglycemics are warranted. 5. Mild leukocytosis this morning, suspect reactive due to surgery. No fevers. Continue to follow clinically. 6. Renal insufficiency: Mild increase in serum creatinine compared to 1 weeks ago. Electrolytes and acid-base status okay. Continue to trend. 7. Headache: Possibly related to nicotine withdrawal. Nicotine patch being started. Would avoid narcotics. As needed acetaminophen Disposition per vascular surgery. Okay to transfer out of ICU from my perspective. (2) CKD (chronic kidney disease): Admission and Anticipated Discharge Date Admission Date: February 18, 2020 Subjective Patient seen and examined. She is doing well. She complains of some mild neck discomfort as well as a headache. She occasionally gets headaches at home. She is not had a cigarette in several days and believes this may be related to nicotine withdrawal. She did require institution of sliding scale insulin for hyperglycemia. She carries a diagnosis of prediabetes Review of Systems Review of Systems: Please refer to admission H&P. No changes Physical Exam Constitutional: WD/WN, vitals as above Neck: trachea midline, no thyromegaly Dressing intact. Some old blood but no fresh bleeding. Respiratory: normal respiratory effort, lungs clear to auscultation Cardiovascular: RRR, no murmur, no edema Gastrointestinal (Abdomen): normal bowel sounds, soft, nontender, no hepatosplenomegaly Musculoskeletal: Extremities: extremities normal to inspection Skin: no rashes, warm and dry Lymphatic: no cervical lymphadenopathy Results & Data Results & Data ([facility]) Vital Signs (Past 12 Hours) Vital Signs Temp Pulse Pulse Pulse Resp BP BP 02/19/20 07:14 75 16 02/19/20 06:03 68 18 153/92 H 02/19/20 05:34 77 14 169/98 H 02/19/20 04:33 70 19 155/87 H 02/19/20 04:03 64 16 129/72 02/19/20 04:00 129/72 02/19/20 03:33 78 19 134/68 02/19/20 03:03 69 12 132/83 02/19/20 02:03 71 12 02/19/20 01:33 75 15 148/90 H 02/19/20 01:03 64 12 149/85 H 02/19/20 01:00 62 22 02/19/20 00:33 67 12 130/96 02/19/20 00:03 74 19 151/88 H 02/19/20 00:00 79 20 101/58 L 02/18/20 23:33 66 13 127/71 02/18/20 23:03 75 20 129/103 H 02/18/20 23:00 73 15 02/18/20 22:00 72 18 02/18/20 21:33 62 14 123/67 02/18/20 21:03 69 12 123/66 02/18/20 21:00 36.9 C 82 17 02/18/20 20:35 71 16 158/85 H 02/18/20 20:04 82 13 208/86 H 02/18/20 20:00 36.9 C 72 71 71 15 129/71 129/71 Pulse Ox 02/19/20 07:14 96 02/19/20 06:03 93 02/19/20 05:34 96 02/19/20 04:33 96 02/19/20 04:03 94 02/19/20 04:00 02/19/20 03:33 90 02/19/20 03:03 93 02/19/20 02:03 92 02/19/20 01:33 95 02/19/20 01:03 92 02/19/20 01:00 94 02/19/20 00:33 92 02/19/20 00:03 95 02/19/20 00:00 95 02/18/20 23:33 94 02/18/20 23:03 95 02/18/20 23:00 93 02/18/20 22:00 96 02/18/20 21:33 95 02/18/20 21:03 94 02/18/20 21:00 93 02/18/20 20:35 94 02/18/20 20:04 97 02/18/20 20:00 96 Laboratory Results 02/19/20 04:27 02/19/20 04:27 Diagnostic Findings No new imaging Coding Level of Care Code 10724 Subseq Hosp Care Lvl 2 Diagnoses CVA (cerebral vascular accident) I63.9 CVA mechanism: unspecified CKD (chronic kidney disease) N18.9 Chronic kidney disease stage: unspecified stage (1) CVA (cerebral vascular accident) CVA mechanism: unspecified Qualified Code(s): I63.9 - Cerebral infarction, unspecified (2) CKD (chronic kidney disease) Chronic kidney disease stage: unspecified stage Qualified Code(s): N18.9 - Chronic kidney disease, unspecified
[2020-02-19] MEDS ORDERED: ACETAMINOPHEN 325 MG TAB PO PRN (07:40)
[2020-02-19] MEDS ORDERED: NICOTINE 21 MG/24 HR TDSY TD SCH (09:00)
[2020-02-19] MEDS ORDERED: CLOPIDOGREL BISULFATE 75 MG TAB PO SCH (09:00)
[2020-02-19] MEDS ORDERED: ATORVASTATIN 40 MG TAB PO SCH (09:00)
[2020-02-19] MEDS ORDERED: PANTOprazole 40 MG TAB PO SCH (09:00)
[2020-02-19] MEDS ORDERED: BuPROPion SR 150 MG TABCR PO SCH (09:00)
[2020-02-19] MEDS ORDERED: ASPIRIN 81 MG ECTAB PO SCH (09:00)
[2020-02-19] MEDS ORDERED: IPRATROPIUM BROMIDE HFA INHALER INH PRN (09:45)
[2020-02-19] MEDS ORDERED: ALBUTEROL HFA 8 GM INHALER INH PRN (09:45)
--- NOTE | 2020-02-19 11:23 | Surgery Progress Note ---
Date of Service February 19, 2020 Assessment & Plan (1) S/P carotid endarterectomy: Doing extremely well post op. D/C today Subjective Patient is awake and alert without complaints. She denies any swallowing difficulty or hoarseness. Physical Exam Constitutional: WD/WN, vitals as above Neck: trachea midline minimal edema Skin: + wound (Incision is dry and clean) Neurologic: CN's II-XI intact bilaterally Motor/Sensory: normal movement and no sensory deficit Results & Data Vital Signs (Past 12 Hours) Vital Signs Temp Pulse Pulse Resp BP Pulse Ox 02/19/20 08:28 37.1 C 68 15 151/80 H 95 02/19/20 08:00 65 02/19/20 07:14 75 16 96 02/19/20 07:00 72 16 143/85 H 92 02/19/20 06:03 68 18 153/92 H 93 02/19/20 05:34 77 14 169/98 H 96 02/19/20 04:33 70 19 155/87 H 96 02/19/20 04:03 64 16 129/72 94 02/19/20 04:00 129/72 02/19/20 03:33 78 19 134/68 90 02/19/20 03:03 69 12 132/83 93 02/19/20 02:03 71 12 92 02/19/20 01:33 75 15 148/90 H 95 02/19/20 01:03 64 12 149/85 H 92 02/19/20 01:00 62 22 94 02/19/20 00:33 67 12 130/96 92 02/19/20 00:03 74 19 151/88 H 95 02/19/20 00:00 79 20 101/58 L 95 02/18/20 23:33 66 13 127/71 94
--- NOTE | 2020-02-20 13:52 | Discharge Summary ---
Date of Service February 20, 2020 Admission HPI Per Admitting Provider Date of Consultation February 12, 2020 Assessment & Plan (1) Carotid artery stenosis: Pt with approx 80% stenosis of L ICA and noted L hemispheric CVA. Her sx have resolved. Pt discussed with Dr Orozco, he recommends pt undergo L CEA. Procedure discussed at length with pt, she expresses understanding. Planning on next week in OR. Can be done as outpt, recommend plavix continued til surgery. Present on Admission?: Yes History of Present Illness Reason for Consultation: L ICA stenosis, CVA Attending Physician: John De Oliveira, History of Present Illness 64 yo f with hx of HTN, hyperlipidemia, Meniere's disease, depression, GERD, COPD, pulmonary nodules, admitted with acute CVA and noted to have L ICA stenosis of 80%, seen in consultation today for same. Pt states she was at home and noted her R fingers were numb approx 3 days ago. States also having difficulty with accuracy when only using her R eye for vision. Denies amaurosis, lower extremity problems, facial droop, speech problems, confusion, prior similar sx, VELEZ, fever, chest pain, SOb, abd pain, N/V, rest pain, claudication, other complaitns. Pt states her R finger numbness has resolved, but still thinks her R eye vision isn't completely resolved. CTA neck demonstrates approx 80% stenosis of L ICA. Admission Exam Per Admitting Provider Physical Exam Constitutional: WD/WN, vitals as above + obese, healthy appearing, cooperative and comfortable; not in distress and not combative Eyes: PERRL, conjunctivae normal, anicteric sclerae ENMT: external ear and nose normal, oropharynx normal Ears: no hearing impairment Neck: trachea midline, no thyromegaly Respiratory: normal respiratory effort; no respiratory distress Auscultation: + diminished lung sounds Cardiovascular: RRR, no murmur, no edema Vessels: posterior tibial pulses present, dorsalis pedis pulses present, brachial pulses present and radial pulses present; + abnormal peripheral pulses Gastrointestinal (Abdomen): normal bowel sounds, soft, nontender, no hepatosplenomegaly Musculoskeletal: no cyanosis or clubbing, extremities motor strength 5/5 Extremities: extremities normal to inspection and strength 5/5 throughout Skin: no rashes, warm and dry Neurologic: moves all extremities and awake; no focal motor deficits and not confused Psychiatric: A+Ox3, euthymic affect Principal Diagnosis 1. s/p Left CEA 2. Severe L ICA stenosis with CVA Discharge Exam Constitutional WD/WN, vitals as above Neck trachea midline Skin + wound (Incision is dry and clean) Neurologic CN's II-XI intact bilaterally Motor/Sensory: normal movement and no sensory deficit Discharge Data Allergies Allergy/AdvReac Type Severity Reaction Status Date / Time No Known Allergies Allergy Verified 02/18/20 05:40 Consultations 02/18/20 09:50 Consult [employer] Routine Procedures Performed Operation Date: 02/18/20 07:30 Actual Procedures p Left Carotid Endarterectomy(Left) - Chad Orozco MD Hospital Course (1) S/P carotid endarterectomy: Doing extremely well post op day 1. D/C home today Total Time Total Time Spent Total Time Spent (In Minutes): 0 Discharge Plan Discharge Items Patient Disposition: Home - Self-Care Reason For Visit: Symptomatic Carotid Stenosis Discharge Diagnosis: Left carotid stenosis with carotid endarterectomy Activity: Per Instructions section Bathing Comment: May shower in 2 days Non-emergency contact: Surgeon Call non-emergency contact if: you have any medication questions, your symptoms worsen, your pain is not controlled, your pain is worsening, your pain is unusual for you, your pain is concerning for you, your temperature is above 101.5, your wound has increased redness, your wound has increased drainage and your wound pain has increased Follow-up/Referrals: Jose Elias Valdez MD [Primary Care Provider] - Diet: Heart Healthy Addtl Attending Provider Instructions: SPECIAL CARE INSTRUCTIONS: Medications: * Continue to take Aspirin as directed. Incision Care: * You may shower, but do not rub incision. You may let the warm soapy water run over it. Be sure to dry the incision well after bathing. * Do not shave directly over the incision until it is healed. * DO NOT IMMERSE THE INCISION IN A TUB/POOL/etc. UNTIL HEALED. Restrictions: * Do not drive for at least one week or if you are still taking any narcotic pain medication. * Do not lift anything heavier than a gallon of milk for one week after going home. Possible Complications: * Numbness - It is normal to have some numbness around the incision. Numbness can extend beyond the incision to areas of the neck, ear and face. The numbness is due to bruising of nerves during the surgery and will gradually improve over a period of months. * Hoarseness/Difficulty Speaking and Swallowing - The bruising of nerves in the neck can also cause a hoarse voice, difficulty speaking or swallowing. This may improve over time, HOWEVER, if it continues for more than a few days please contact our office ([phone]). * Excessive Swelling - There will be some swelling immediately after surgery which usually resolves within one week. If you notice that the swelling is getting worse, notify your surgeon ([phone]). * Drainage/Bleeding - If there is any drainage or bleeding, it should be a very small amount (less than a teaspoon per day). If you have excessive bleeding or drainage from the incision, call your surgeon ([phone]) right away. ACTIVATION OF EMERGENCY MEDICAL SYSTEM: Call 911, immediately, if you experience any of the following: Warning Signs and Symptoms of Stroke: * Sudden numbness or weakness of the face, arm or leg, especially on one side of the body * Sudden confusion, trouble speaking or understanding * Sudden trouble seeing in one or both eyes * Sudden trouble walking, dizziness, loss of balance or coordination * Sudden severe headache with no cause Do not delay calling 911 if you experience any warning signs or symptoms of a stroke. Delay in seeking medical attention may affect what treatments can be given to you. Risk Factors for Stroke: You can reduce your chances of stroke by working with your medical provider to adopt a healthy lifestyle. Some specific ways to lower your chance of stroke are: * If you are a smoker, now is the time to stop smoking cigarettes * If you are diabetic, improve the control of your blood sugars * Avoid excessive amounts of alcohol * Control high blood pressure * Lose weight if you are overweight * Be sure to lead an active lifestyle * Eat a healthy diet low in salt, cholesterol and fat You should know about other risk factors for stroke that you are unable to control. These include: * Age 55 years or older * Male gender * Certain racial groups: , or / * Family History of Stroke, Mini stroke or Heart Attack * Sickle Cell Disease You will be receiving a call from the Vascular Surgery Nurse after you are discharged. FOLLOW UP VISIT: It is important for you to keep your follow up appointments with your medical provider. Keep any scheduled doctor appointments. Pending Studies at Discharge: No Stand-Alone Forms: [facility], Smoking Cessation Medications and DC Order Prescriptions: New hydrocodone-acetaminophen [[place]] 5-325 mg tablet 1 tab PO TID PRN (Reason: pain) Qty: 12 RF: 0 Continued albuterol sulfate 90 mcg/actuation HFA aerosol inhaler 2 puffs INHALATION Q6H PRN (Reason: Wheezing) Qty: 18 RF: 5 aspirin [Aspirin Low Dose] 81 mg Tablet,Delayed Release (Dr/Ec) 81 mg PO QAM RF: 0 Combivent Respimat 20-100 mcg/actuation mist 1 puffs INH QID RF: 0 atorvastatin 40 mg Tablet 40 mg PO QAM Qty: 30 RF: 0 clopidogrel 75 mg tablet 75 mg PO DAILY Qty: 30 RF: 0 nicotine 21 mg/24 hr patch 24 hour 1 patch TD DAILY Qty: 14 RF: 0 bupropion HCl 150 mg tablet sustained-release 12 hr 150 mg PO QAM RF: 0 omeprazole 20 mg capsule,delayed release(DR/EC) 20 mg PO QAM RF: 0 Discharge Orders: Discharge Order (Routine); Ordered 02/19/20 Ordered By: Chad Orozco Admission Data Admit Date/Time: 02/18/20 09:49 Attending Provider: Chad Orozco Admit Provider: Chad Orozco Primary Care Provider: Jose Elias Valdez Other Providers: Jp Lamb ; John Traore ; Ruben Landrum ; Simone Muro Chase B. ; Demetris Ortiz ; Faiza Carranza Other Interventions: Discharge Summary Assessment (RN) Last Done: 02/19/20 11:30 DC Date/Time DO NOT enter until pt leaves facility: 02/19/20 12:34
== END 2020-02-19 12:34 | disposition home or self-care (01) | DRG 38 ==
LOC: ASU 05:09 → 1E 09:49

== ENCOUNTER 2020-12-07 06:26 | Observation (INO) ==
--- NOTE | 2020-12-02 08:43 | Anesthesiology Consultation ---
Date of Service December 02, 2020 Assessment & Plan (1) Encounter for pre-operative examination: Chart Review Chart Review: Acceptable Risk for Surgery and Patient NOT seen in Pre Admission Testing -Will leave to anesthesiologist discretion if repeat coags needed DOS Per nursing assessment 11/16/20, patient denies any recent travel. No known Covid positive contacts or Covid related symptoms. No known Covid infection in the past 90 days. Covid testing 12/01/20= negative Left CEA 02/18/20= Done under [place] with Grade 1 view with head lift with MAC #3. ETT #7.0. DL x 1, atraumatic. History Surgery Operation Date: 12/07/20 11:10 Proposed Procedures p Total Anterior Hip Arthroplasty - John Live DO Height/Weight Height: 5 ft 5 in Weight: 99.79 kg Allergies Allergy/AdvReac Type Severity Reaction Status Date / Time No Known Allergies Allergy Verified 11/16/20 11:40 Medications Home Medications Medication Instructions Recorded Confirmed Last Taken aspirin [Aspirin Low Dose] 81 mg PO QAM 11/29/18 11/16/20 02/18/20 04:30 bupropion HCl 150 mg tablet,12 hr 150 mg PO QAM #90 ea 05/03/20 11/16/20 Unknown sustained-release triamcinolone acetonide 0.1 % 1 applic TOPICAL BID #30 g 06/01/20 11/16/20 Unknown topical cream albuterol sulfate 90 mcg/actuation 2 inh INHALATION Q6H PRN #18 g 08/03/20 11/16/20 Unknown aerosol inhaler albuterol sulfate [Ventolin HFA] 2 puff INHALATION QID 09/20/20 11/16/20 Unknown hydrocodone 5 mg-acetaminophen 325 1 tab PO Q8H PRN #60 tab 09/29/20 11/16/20 Unknown mg tablet hydrocodone 5 mg-acetaminophen 325 1 tab PO Q6H PRN #30 tab 11/11/20 11/16/20 Unknown mg tablet fluticasone 250 mcg-salmeterol 50 1 inh INHALATION BID #60 ea 11/24/20 11/24/20 Unknown mcg/dose blistr powdr for inhalation atorvastatin 40 mg tablet 40 mg PO QAM #30 tab 11/30/20 Unknown ipratropium 20 mcg-albuterol 100 1 puff INH QID #4 g 11/30/20 Unknown mcg/actuation mist for inhalation omeprazole 20 mg capsule,delayed 20 mg PO QAM #30 cap 11/30/20 Unknown release Past Medical History Medical History (Updated 12/02/20 @ 09:07 by Shelbie Freeman PA-C) Asthma stable Carotid stenosis, left S/P L CEA (02/18/20) (Prior to CEA patient had 80% LICA stenosis ) Cerebral aneurysm Per records, pt unaware No significant aneurysm noted with head CTA and brain MRI from 01/2020 CKD (chronic kidney disease) stage III COPD (chronic obstructive pulmonary disease) well controlled per pt CVA (cerebral vascular accident) CVA 02/11/20- no residual effects, follows with [facility] neurology, patient was on plavix until ~1 month after left CEA surgery, now on ASA 81mg Depression with anxiety GERD (gastroesophageal reflux disease) controlled History of Meniere's disease History of prediabetes HGBA1C 6.3% on 02/12/20 Hyperlipidemia Hypertension Osteoarthritis Past Family History Family History Mother Diabetes Sister Diabetes Other Heart disease Denies family history of Ovarian cancer Prostate cancer Myocardial infarction Breast cancer Colorectal cancer Past Surgical History Surgical History H/O carotid endarterectomy Left CEA: 02/18/20: Grade view 1 with head lift, MAC#3, ETT 7.0 at [facility] History of appendectomy History of bilateral tubal ligation History of brain surgery 5 years ago (Meniere's treatment/[facility]) History of cataract surgery R/L History of section x1 History of cholecystectomy History of colonoscopy History of esophagogastroduodenoscopy (EGD) History of tonsillectomy History of tooth extraction Social History Smoking Status: Current every day smoker tobacco type: cigarettes Smoking cigarettes per day: 20 cigs per day Do You Dip or Chew Tobacco: No Hx Alcohol Use: No Hx Substance Use: Yes substance use type: marijuana Substance Use Type Other:: marijuana > smokes BID or less Testing Laboratory Results Laboratory Tests 12/01/20 12/01/20 10:53 10:53 WBC 9.40 Hgb 12.3 Hct 38.0 Plt Count 299 Sodium 144 Potassium 4.4 Chloride 111 H Carbon Dioxide 26 BUN 26 H Creatinine 1.13 Glucose 112 H 10/01/20 (>60 days old)= PT: 10.3 PTT: 25.4 INR: 1.0 TYPE AND SCREEN: A positive, antibody negative Electrocardiogram Date: 02/11/20 Sinus rhythm with occasional PVCs at 78 bpm. Otherwise normal ECG. Chest X-Ray Date: 02/11/20 Findings: + NAD Echocardiogram Date: 02/12/20 LV Function: normal EF 60 to 65%. No regional wall motion abnormalities. Borderline concentric LVH. No significant valvular disease. Other Testing Left carotid duplex 04/20/20= patent left carotid endarterectomy with no evidence of restenosis. Antegrade flow in the left vertebral artery. Normal flow in the left subclavian artery. Brain MRI: 02/11/20: Multiple scattered foci of restricted water diffusion within the left hemisphere with involvement of the left frontal parietal and occipital lobes. The findings are indicative of acute/subacute infarcts Neck CTA: 02/11/20= Extensive plaque with 80% stenosis of the proximal left internal carotid artery. Chronic occlusion of the left external carotid artery with distal reconstitution. Less than 50% stenosis of the proximal right internal carotid artery. Mild to moderate stenosis at the origin of the left common carotid and left subclavian arteries, suboptimally assessed on this exam. Severe stenosis at the origin of the left vertebral artery and moderate stenosis at the origin of the right vertebral artery. Subsequent left CEA 02/2020*
--- NOTE | 2020-12-06 16:44 | History & Physical Report ---
Date of Service December 06, 2020 Assessment & Plan (1) Degenerative joint disease of right hip: We will proceed with a right anterior total of arthroplasty. Postoperatively she will be started on aspirin for DVT prophylaxis and kept overnight in the hospital for postop medical management. She plans to use [facility] upon discharge. History of Present Illness Chief Complaint: Osteoarthritis of the right hip. Primary Care Provider: Edwin Valdez MD Radha is a pleasant six 5-year-old female who is been ill with chronic increasing right hip and groin pain. X-rays and clinical examination have been diagnostic for advanced osteoarthritis of the right hip. She has tried an intra-articular hip injection without much relief. She is using a cane because of her pain. After failing conservative treatment, she elected proceed with a right total hip arthroplasty. Allergies Allergy/AdvReac Type Severity Reaction Status Date / Time No Known Allergies Allergy Verified 11/16/20 11:40 Home Medications Medication Instructions Recorded Confirmed Type aspirin [Aspirin Low Dose] 81 mg PO QAM 11/29/18 11/16/20 History bupropion HCl 150 mg tablet,12 hr 150 mg PO QAM #90 ea 05/03/20 11/16/20 Rx sustained-release triamcinolone acetonide 0.1 % 1 applic TOPICAL BID #30 g 06/01/20 11/16/20 Rx topical cream albuterol sulfate 90 mcg/actuation 2 inh INHALATION Q6H PRN #18 g 08/03/20 11/16/20 Rx aerosol inhaler albuterol sulfate [Ventolin HFA] 2 puff INHALATION QID 09/20/20 11/16/20 History hydrocodone 5 mg-acetaminophen 325 1 tab PO Q8H PRN #60 tab 09/29/20 11/16/20 Rx mg tablet hydrocodone 5 mg-acetaminophen 325 1 tab PO Q6H PRN #30 tab 11/11/20 11/16/20 Rx mg tablet atorvastatin 40 mg tablet 40 mg PO QAM #30 tab 11/30/20 Rx ipratropium 20 mcg-albuterol 100 1 puff INH QID #4 g 11/30/20 Rx mcg/actuation mist for inhalation omeprazole 20 mg capsule,delayed 20 mg PO QAM #30 cap 11/30/20 Rx release Advair Diskus 250 mcg-50 mcg/dose 1 inh INHALATION BID #60 ea NS 12/02/20 Rx powder for inhalation Past Med/Surg History Medical History Asthma stable Carotid stenosis, left S/P L CEA (02/18/20) (Prior to CEA patient had 80% LICA stenosis ) Cerebral aneurysm Per records, pt unaware No significant aneurysm noted with head CTA and brain MRI from 01/2020 CKD (chronic kidney disease) stage III COPD (chronic obstructive pulmonary disease) well controlled per pt CVA (cerebral vascular accident) CVA 02/11/20- no residual effects, follows with [place] neurology, patient was on plavix until ~1 month after left CEA surgery, now on ASA 81mg Depression with anxiety GERD (gastroesophageal reflux disease) controlled History of Meniere's disease History of prediabetes HGBA1C 6.3% on 02/12/20 Hyperlipidemia Hypertension Osteoarthritis Surgical History H/O carotid endarterectomy Left CEA: 02/18/20: Grade view 1 with head lift, MAC#3, ETT 7.0 at [facility] History of appendectomy History of bilateral tubal ligation History of brain surgery 5 years ago (Meniere's treatment/[facility]) History of cataract surgery R/L History of section x1 History of cholecystectomy History of colonoscopy History of esophagogastroduodenoscopy (EGD) History of tonsillectomy History of tooth extraction Family History Mother Diabetes Sister Diabetes Other Heart disease Denies family history of Ovarian cancer Prostate cancer Myocardial infarction Breast cancer Colorectal cancer Social History Smoking Status: Current every day smoker Tobacco Type: Cigarettes Age Started Using Tobacco: 17; Cigarettes Per Day: 20 cigs per day; Second Hand Exposure: Yes; Hx Alcohol Use: No Hx Substance Use: Yes Substance Use Type Other:: marijuana > smokes BID or less Preferred Language: Malay Communication Ability: Effective Visual Impairment: No Limitations Hearing Ability: Normal Marketing Co Op Required: No Beliefs That Will Affect Care: None marital status: Current Living Situation: Alone current occupational status: retired 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 Physical Exam On physical examination of the right hip, she ambulates with a cane. She has severe pain with forced internal and external rotation of her hip. Her leg lengths are equal.. Constitutional WD/WN, vitals as above Eyes PERRL, conjunctivae normal, anicteric sclerae ENMT external ear and nose normal, oropharynx normal Neck trachea midline, no thyromegaly Respiratory normal respiratory effort Cardiovascular RRR, no murmur, no edema Gastrointestinal (Abdomen) normal bowel sounds, soft, nontender, no hepatosplenomegaly Psychiatric A+Ox3, euthymic affect Results & Data Results & Data Laboratory Results . Diagnostic Findings X-rays of the right hip do show advanced osteoarthritis with joint space narrowing osteophyte formation and [id number] reticulation. PG Care Time/CCT Total # of Minutes Spent Total Time Spent with Patient: Total time spent is greater than 50% in coordinat ion of care (as documented) at patient's floor/unit and/or counseling patient: Coding Level of Care Code None Diagnoses Degenerative joint disease of right hip M16.11
[~2020-12-07 06:26] MED LIST changes: +ACETAMINOPHEN 500 MG TAB PO SCH; -ADVIN50050 INH; -ASPI81TA28 PO; +FAMOTIDINE 20 MG TAB PO SCH; +GABAPENTIN 300 MG CAP PO SCH; -IPRA1AER2 INH; +LR 500ML BOLUS, THEN 15ML/HR IV SCH; +LR 60ML/HR IV SCH; -LVQ750 PO; -NCDT21 TD; -PRLSR20 PO; +ROPIVACAINE 0.5% HCL/PF 150 MG, BUPIVACAINE 0.75% MPF 20 ML, EPINEPHrine 30MG/30ML (OR ... INSTIL SCH; +TRANEXAMIC ACID 1,000 MG **IV Intra-op IV SCH; +TRANEXAMIC ACID 1,000 MG **IV Pre-op IV SCH; -VNTHFA/IN INH; +ceFAZolin 2000MG 2,000 MG/15 ML SYR IV SCH; +dexAMETHasone 4 MG TAB PO SCH
[2020-12-07] MEDS ORDERED: BUPIVACAINE 0.5 % 5 MG/1 ML PF 10ML VIAL ONE (06:31)
--- NOTE | 2020-12-07 06:33 | History & Physical Bridge Note ---
Date of Service December 07, 2020 History & Physical Bridge Note I have examined the patient, reviewed the History & Physical and in the interval since the performance of the History & Physical I have noted the following changes of clinical significance: no changes noted
[2020-12-07] MEDS ORDERED: MIDAZOLAM HCL 1 MG/ML 2ML VIAL ONE (08:13)
[2020-12-07] MEDS ORDERED: ePHEDrine sulfate 50 MG/ML AMP IV PRN (08:53)
[2020-12-07] MEDS ORDERED: ONDANSETRON INJ 2 MG/ML 2 ML VIAL IV PRN ×2 (08:53→12:28)
[2020-12-07] MEDS ORDERED: fentaNYL citrate 100 MCG/2 ML VIAL IV PRN (08:53)
[2020-12-07] MEDS ORDERED: ATROPINE SULFATE 0.1 MG/ML 10ML SYR IV PRN (08:53)
[2020-12-07] MEDS ORDERED: ORTHO JOINT ANESTHETIC ONE (08:59)
[2020-12-07] MEDS ORDERED: PHENYLEPHRINE 100MCG/ML 5ML SYR ONE (09:43)
[2020-12-07] MEDS ORDERED: ePHEDrine sulfate 50 MG/ML SYR ONE (09:43)
[2020-12-07] MEDS ORDERED: PROPOFOL IV EMULSION 10 MG/ML 20 ML VIAL IV ONE (09:43)
[2020-12-07] MEDS ORDERED: LIDOCAINE HCL 2% 2 ML VIAL/AMP(20MG/ML) INFIL ONE (09:43)
--- NOTE | 2020-12-07 10:44 | Operative Report ---
PG Post Operative Report Pre & Post Diagnosis Operation Date: 12/07/20 09:05 Pre-Op Diagnosis: Degenerative Joint Disease Right Hip Post-Op Diagnosis: Degenerative Joint Disease Right Hip I identified the patient and participated in the time-out.: Yes Procedure Operation Date: 12/07/20 09:05 Actual Procedures p Right Anterior Total Hip Arthroplasty(Right) - John Live DO Surgeon John Live DO Rotary Pump Operator John Powell PAC Estimated Blood Loss 300 Findings Consistent with Post-Op Diagnosis Specimens Right femoral head Complications none Disposition Disposition: Recovery Room Indications Radha is a pleasant six 5-year-old female who is been doing with chronic increasing right hip pain. X-rays and clinical examination have been diagnostic for advanced osteoarthritis of the right hip. After failing conservative treatment, she has elected to proceed with a right anterior total hip arthroplasty. Description of Procedure Implants used I used a Biomet Taperloc total hip arthroplasty system with a size 10 standard offset Taperloc stem, a 50 mm G7 cup with a 25mm screw, an E1 polyethylene liner, a 36 mm ceramic head with a 0 neck. Radha arrived at the hospital for the above procedure. She was seen in the preoperative holding area and the operative extremity was identified and signed. She was given a spinal anesthetic, a preoperative antibiotic, and TXA. She was then taken back to the operating room and laid on the table in the supine position. She was given basic sedation. The operative leg was secured to a Puristst leg positioner. The hip was then prepped and draped in sterile fashion. A timeout was done and the patient and the operative extremity was properly identified. An anterior approach was used. Dissection was taken down through the fascia and the tensor muscle belly was retracted laterally and the rectus was retracted medially. The circumflex vessels were identified and ligated. The capsule was then incised and tagged for later repair. The femoral neck was then cut and the femoral head was removed. The acetabulum was exposed. Time was spent doing a complete circumferential labral release. Sequential reaming of the acetabulum up to a size 49 reamer was done. Final reamings were done under fluoroscopy to ensure appropriate version. A Biomet 50 mm G7 cup was then impacted into place. A single 25 mm screw was placed. The E1 polyethylene liner was then snapped into place. Surrounding soft tissues were then injected with 100 cc of an orthopedic pain control cocktail. The proximal femur was then exposed. Sequential broaching up to a size 10 standard offset broach was done. Off that broach a size 36 head with a 0 neck was trialed. The hip was reduced and fluoroscopic images showed anatomic alignment of the implants in acceptable length. The broach was removed. The final size 10 standard offset Taperloc stem was then impacted into place. A ceramic 36 mm head with a 0 neck was then impacted onto the stem and the hip was reduced. Final fluoroscopic images showed anatomic alignment of the hip. The capsule was then closed with #1 Vicryl suture. A dilute betadyne lavage was then done for 3 minutes. The joint was then irrigated with normal saline solution. The fascia was closed with #1 PDS suture. Skin was closed with 2-0 Vicryl, melanie, and a Silverlon dressing. She was then transferred to a hospital bed and taken to the post anesthesia care unit in stable condition. She tolerated the procedure well. John Powell PA-C, was present for the entire procedure. He was critical for patient positioning, prepping, draping, retraction exposure, wound closure and application of sterile dressing. I attest to the content of the Intraoperative Record and any orders documented therein. Any exceptions are noted below.
[2020-12-07] MEDS ORDERED: PHENYLEPHRINE HCL 10 MG/ML VIAL ONE (10:49)
--- NOTE | 2020-12-07 11:29 | Fluoroscopy Report ---
FL hip RT 1V CLINICAL HISTORY: RIGHT ANTERIOR HIP COMPARISON STUDY: None. FLUOROSCOPY TIME: 24 seconds. FINDINGS: 2 fluoroscopic spot images of the right hip demonstrate a right total arthroplasty. The shirin dware is intact. No fracture or dislocation. IMPRESSION: Fluoroscopy provided for right total hip arthroplasty. ACT 112: Negative or not required by law. Electronically signed by: Brandon Duggan M.D. 12/07/2020 11:28 AM
--- NOTE | 2020-12-07 11:30 | XRay Report ---
XR hip 1V RT w pelvis HISTORY: 65 years-old Female IN PACU - A/P PELVIS and LATERAL HIP right hip total joint arthroplast y COMPARISON: Pelvis radiograph 08/06/2019 TECHNIQUE: AP view the pelvis with crosstable lateral view of the right hip FINDINGS: Right hip total joint arthroplasty. Expected postoperative soft tissue swelling with deep tissue air. No acute fracture or unexpected opaque foreign body. Moderate left hip osteoarthritis. Demineralized appearance of the bones. No acute fracture, dislocation or avascular necrosis. IMPRESSION: Right hip total joint arthroplasty with expected postoperative changes. ACT 112: Negative or not required by law. The above report was generated using voice recognition software. It may contain grammatical, syntax o r spelling errors. Electronically signed by: Patrick Zapata M.D. 12/07/2020 11:29 AM
[2020-12-07] MEDS ORDERED: METOCLOPRAMIDE HCL INJ 5 MG/ML 2 ML VIAL IV PRN (12:28)
[2020-12-07] MEDS ORDERED: MAGNESIUM HYDROXIDE SUSP 30 ML UDC PO PRN (12:28)
[2020-12-07] MEDS ORDERED: HYDROmorphone INJ 0.5 MG/0.5 ML SYR IV PRN (12:28)
[2020-12-07] MEDS ORDERED: NALOXONE HCL 0.4 MG/1 ML VIAL/CARP IV PRN (12:28)
[2020-12-07] MEDS ORDERED: bisacodyL 10 MG SUPP PR PRN (12:28)
[2020-12-07] MEDS ORDERED: ALBUTEROL HFA 8 GM INHALER INH PRN (12:28)
--- NOTE | 2020-12-07 12:46 | Anesthesiology Progress Note ---
Date of Service December 07, 2020 Anesthesia Post Procedure Vital Signs Vital Signs: Temp Pulse Pulse Pulse Resp BP BP 12/07/20 12:15 36.6 C 79 16 96/63 L 12/07/20 11:55 36.4 C L 76 14 109/69 12/07/20 11:45 81 20 112/64 12/07/20 11:35 84 18 123/65 12/07/20 11:25 79 22 124/67 12/07/20 11:15 62 18 121/60 12/07/20 11:05 36.8 C 75 10 L 164/85 H 12/07/20 07:56 82 20 152/90 H 12/07/20 07:08 36.6 C 91 H 18 142/99 H Pulse Ox 12/07/20 12:15 94 12/07/20 11:55 94 12/07/20 11:45 95 12/07/20 11:35 95 12/07/20 11:25 94 12/07/20 11:15 98 12/07/20 11:05 100 12/07/20 07:56 99 12/07/20 07:08 96 Pain Intensity Right Hip: Pain Intensity: 0 Transfer of Care Handoff Completed per policy Notes Mental Status: alert / awake / arousable and participated in evaluation Patient Amnestic to Procedure: Yes Nausea / Vomiting: adequately controlled Pain: adequately controlled Airway Patency, RR, SpO2: stable & adequate BP & HR: stable & adequate Hydration State: stable & adequate Neuraxial Anesthesia: was administered and sensory block is resolving Anesthetic Complications: no major complications apparent and Pt Satisfied with anesthetic care
[2020-12-07] MEDS ORDERED: IPRATROPIUM BROMIDE/ALBUTEROL respimat INH INH SCH (13:00)
[2020-12-07] MEDS ORDERED: ALBUTEROL HFA 8 GM INHALER INH SCH (13:00)
[2020-12-07] MEDS: SODIUM CHLORIDE 0.9% 1000ML 1,000 ML IV SCH (13:58)
[2020-12-07] MEDS: ACETAMINOPHEN 500 MG TAB PO SCH ×2 (13:58→21:18)
[2020-12-07] MEDS: KETOROLAC TROMETHAMINE 15 MG/ML VIAL IV SCH ×2 (13:59→17:44)
[2020-12-07] MEDS: Ipratropium HFA Inhaler (Combivent Respimat P&T Subs) INH SCH ×3 (15:16→19:34)
[2020-12-07] MEDS: Albuterol HFA 8 GM Inhaler (Combivent Respimat P&T Subs) INH SCH ×3 (15:17→19:35)
[2020-12-07] MEDS: NICOTINE 21 MG/24 HR TDSY TD SCH ×2 (16:12→16:13)
[2020-12-07] MEDS: oxyCODONE HCL IR 5 MG TAB (IMMEDIATE RELEASE) PO PRN (16:17)
[2020-12-07] MEDS: ceFAZolin 2000MG 2,000 MG/15 ML SYR IV SCH (17:44)
[2020-12-07] MEDS ORDERED: COUGH DROP (SUGAR FREE) LOZ 24 LOZ/1 BOX BUCCAL PRN (20:08)
[2020-12-07] MEDS ORDERED: SENNA 8.6 MG TAB PO SCH (21:00)
[2020-12-07] MEDS: ASPIRIN 81 MG ECTAB PO SCH (21:18)
[2020-12-07] MEDS: DOCUSATE SODIUM 100 MG CAP PO SCH (21:18)
[2020-12-08] MEDS: SODIUM CHLORIDE 0.9% 1000ML 1,000 ML IV SCH
[2020-12-08] MEDS: ceFAZolin 2000MG 2,000 MG/15 ML SYR IV SCH (02:30)
[2020-12-08] MEDS: KETOROLAC TROMETHAMINE 15 MG/ML VIAL IV SCH ×3 (05:31→11:09)
[2020-12-08] MEDS: ACETAMINOPHEN 500 MG TAB PO SCH (05:31)
--- NOTE | 2020-12-08 06:50 | Orthopedic Progress Note ---
Date of Service December 08, 2020 Assessment & Plan (1) Status post right hip replacement: Overall she is doing very well. She is having much pain in the right hip. She will be seen by physical therapy today for ambulation and range of motion exercises. She is on aspirin for DVT prophylaxis. She can be discharged home later today. She will follow-up with orthopedics in 2 weeks. Layton Garcia was seen and examined at bedside this morning. Overall she is doing very well. She is not having much pain in her right hip. She has been up and ambulating to the bathroom. She has no complaints.. Review of Systems All systems reviewed & are unremarkable except as noted in HPI & below. Physical Exam On physical examination of the right hip, the dressing is clean and dry. Her leg lengths are equal. She has active dorsiflexion and plantarflexion of her right ankle.. Results & Data Results & Data Laboratory Results . Diagnostic Findings Postoperative x-rays of the right hip show the prosthesis to be in anatomic alignment without any evidence of fracture, dislocation, or loosening.. PG Care Time/CCT Total # of Minutes Spent Total Time Spent with Patient: Total time spent is greater than 50% in coordination of care (as documented) at patient's floor/unit and/or counseling patient: Coding Level of Care Code 85969 Post Operative Follow-Up Diagnoses Status post right hip replacement Z96.641
--- NOTE | 2020-12-08 06:52 | Discharge Summary ---
Date of Service December 08, 2020 Admission HPI (Per Admitting) Radha is a pleasant six 5-year-old female who is been ill with chronic increasing right hip and groin pain. X-rays and clinical examination have been diagnostic for advanced osteoarthritis of the right hip. She has tried an intra-articular hip injection without much relief. She is using a cane because of her pain. After failing conservative treatment, she elected proceed with a right total hip arthroplasty. Admission Exam (Per Admitting) On physical examination of the right hip, she ambulates with a cane. She has severe pain with forced internal and external rotation of her hip. Her leg lengths are equal.. Principal Diagnosis Same as "Discharge Diagnosis" noted below under Discharge Instructions. Discharge Exam On physical examination of the right hip, the dressing is clean and dry. Her leg lengths are equal. She has active dorsiflexion and plantarflexion of her right ankle.. Discharge Data Consultations 12/08/20 08:00 Consult Case Management - Discharge Planning Routine Procedures Performed Operation Date: 12/07/20 09:05 Actual Procedures p Right Anterior Total Hip Arthroplasty(Right) - John Live DO Ordered Studies 12/07/20 09:05 FL fluoroscopy <1hr Routine FL hip RT 1V Routine Hospital Course (1) Status post right hip replacement: On December 07, 2020 Radha arrived at [facility] and underwent a right anterior total hip arthroplasty without complication. She had a spinal anesthetic. Postoperatively she was placed on aspirin for DVT prophylaxis and transferred to the general orthopedic floors. Her hospital course was uneventful. On postop day #1 her vital signs were all stable. She was able to participate well with physical therapy doing ambulation and range of motion exercises. She was then discharged home. She will follow-up with orthopedics in 2 weeks. PG Care Time/CCT Total # of Minutes Spent Total Time Spent with Patient: Total time spent is greater than 50% in coordination of care (as documented) at patient's floor/unit and/or counseling patient: Discharge Plan Discharge Items Patient Disposition: Home - Home Health Services Reason For Visit: Degenerative Joint Disease Right Hip Discharge Diagnosis: Right hip replacement Activity: As commented below Non-emergency contact: Surgeon Call non-emergency contact if: your wound has increased redness and your wound has increased drainage Follow-up/Referrals: Jose Elias Valdez MD [Primary Care Provider] - Diet: Regular Addtl Attending Provider Instructions: Activity and Therapy Recommendations: * If you are using [facility] then therapy will be provided at your home until they feel you have accomplished all of your goals. * If you are using [facility] then Physical Therapy will be provided until they feel you are ready to start Outpatient Physical Therapy. * If you are not using home therapy then Outpatient Physical Therapy should start about 3-5 days from your day of surgery. Therapy will last about 6-10 weeks * You were shown a series of exercises in the hospital. Do these exercises three times each day including the exercises you were shown in physical therapy. * Get up and walk several times each day.~ For the first four weeks, try not to stand or walk for more than one hour at a time. If you do stand or walk for more than one hour, you will not hurt anything, but your leg will likely swell.~~ * As you feel comfortable, you may change from the walker or crutches to a cane and~then to independent walking. Medications: * Narcotic You will likely be sent home from the hospital with a prescription for the narcotic pain medication that worked best throughout your stay. * Aspirin Most patients will be required to take Aspirin 81mg twice a day for 6 weeks after surgery. This is obtained [id number] and a prescription is not necessary. * Other medications may be prescribed for specific circumstances. If you have any questions, please call the office at . * Resume previous home medications unless otherwise instructed TEDs/Elastic Stockings: The white elastic stockings help limit swelling and prevent blood clots from forming in your legs. The more you wear them, the more they work. Wear them for six weeks. Dressing Care: Leave the Silverlon dressing in place for 7 days. After 7 days you may remove the dressing. If the incision is not draining then you may leave the melanie open to air. If there is a little bit of drainage or if the melanie are getting stuck on your clothing then cover the incision with a dry dressing. The melanie will be removed at your 2 week follow-up appointment. Showering: You may shower with the Silverlon dressing in place. Do not let the shower sp ray hit the dressing directly. Pat the Silverlon dressing dry. If the dressing becomes wet underneath, then simply remove the dressing. Keep the incision dry until you are 7 days out from the day of surgery. After 7 days you may remove the Silverlon dressing and shower with the melanie exposed. Let soapy water run over the melanie and pat them dry. Do not scrub or soak the incision. Things To Watch For: * Drainage from the incision site that occurs more than one week after your surgery. * Increased redness at the incision site. * Fever above 102 degrees Fahrenheit. * Unusual chest pain or shortness of breath. * Call [facility] at with any of the above problems Follow-Up Visit: Follow-up with Dr. Live's PA (John Powell) 2-3 weeks after your day of surgery. He will remove your melanie and answer any questions. If you have any additional questions or concerns, Dr Live is usually in the office at the same time and will be available An appointment was probably scheduled when you signed-up for surgery in the office. If you have any questions call Office Instructions: More detailed instructions as well as Frequently Asked Questions were provided in a folder by our office when you signed-up for surgery. Please review these instructions when you get home. If you have any further questions or concerns, please feel free to call the office at [phone] Pending Studies at Discharge: No Stand-Alone Forms: My [facility], Smoking Cessation Medications and DC Order Prescriptions: New hydrocodone-acetaminophen 5-325 mg tablet 1 tab PO Q6H PRN (Reason: pain) Qty: 60 RF: 0 aspirin 81 mg Tablet,Delayed Release (Dr/Ec) 81 mg PO BID 42 Days Qty: 0 RF: 0 Continued bupropion HCl 150 mg tablet sustained-release 12 hr 150 mg PO QAM Qty: 90 RF: 3 albuterol sulfate 90 mcg/actuation HFA aerosol inhaler 2 inh INHALATION Q6H PRN (Reason: Wheezing) Qty: 18 RF: 5 atorvastatin 40 mg tablet 40 mg PO QAM Qty: 30 RF: 5 Combivent Respimat 20-100 mcg/actuation mist 1 puff INH QID Qty: 4 RF: 3 omeprazole 20 mg capsule,delayed release(DR/EC) 20 mg PO QAM Qty: 30 RF: 5 fluticasone propion-salmeterol [Advair Diskus] 250-50 mcg/dose blister with device 1 inh inhalation BID Qty: 60 RF: 3 multivitamin Tablet 1 tab PO DAILY RF: 0 aspirin [Aspirin Low Dose] 81 mg Tablet,Delayed Release (Dr/Ec) 81 mg PO QAM RF: 0 albuterol sulfate [Ventolin HFA] 90 mcg/actuation Hfa Aerosol Inhaler 2 puff INHALATION QID RF: 0 Discharge Orders: Discharge Order (Routine); Ordered 12/08/20 Ordered By: John Live Admission Data Admit Date/Time: 12/07/20 11:09 Attending Provider: John Live Admit Provider: John Live Primary Care Provider: Jose Elias Vladez
[2020-12-08] MEDS: Ipratropium HFA Inhaler (Combivent Respimat P&T Subs) INH SCH ×2 (07:06→10:39)
[2020-12-08] MEDS: Albuterol HFA 8 GM Inhaler (Combivent Respimat P&T Subs) INH SCH ×2 (07:07→10:39)
[2020-12-08 07:14] LABS: Hematocrit (blood only) 29.9 % (37-47); Hemoglobin 10.1 g/dL (12.0-16.0); Immature Granulocytes # (auto) 0.09 K/uL (0.00-0.02); Immature Granulocytes % (auto) 0.4 %; Lymphocytes # (auto) 1.13 K/uL (1.2-3.4); Lymphocytes % (auto) 5.3 %; Mean Corpuscular Hemoglobin 32.8 pg (25-34); Mean Corpuscular Hgb Conc 33.8 g/dL (32-36); Mean Corpuscular Volume 97.1 fL (80-100); Mean Platelet Volume 10.5 fL (7.4-10.4); Neutrophils # (auto) 18.32 K/uL (1.4-6.5); Neutrophils % (auto) 86.3 %; Platelet Count 217 K/uL (130-400); RDW Standard Deviation 45.7 fL (36.4-46.3); Red Blood Count 3.08 M/uL (4.2-5.4); White Blood Count 21.24 K/uL (4.8-10.8)
[2020-12-08] MEDS: ASPIRIN 81 MG ECTAB PO SCH (07:27)
[2020-12-08] MEDS: DOCUSATE SODIUM 100 MG CAP PO SCH (07:28)
[2020-12-08] MEDS: NICOTINE 21 MG/24 HR TDSY TD SCH (07:30)
[2020-12-08] MEDS: oxyCODONE HCL IR 5 MG TAB (IMMEDIATE RELEASE) PO PRN (07:42)
[2020-12-08 07:44] LABS: BUN Creatinine Ratio 18.3 (10-20); Calcium 8.6 mg/dl (8.5-10.1); Creatinine Clr Calc Pharmacy 53.1 ml/min; Est GFR (African American) 52.9; Est GFR (Non-African American) 45.7; Potassium 4.1 mmol/L (3.5-5.1)
[2020-12-08] MEDS ORDERED: dexAMETHasone 4 MG TAB PO SCH (08:00)
[2020-12-08] MEDS ORDERED: PANTOprazole 40 MG TAB PO SCH (09:00)
[2020-12-08] MEDS ORDERED: MULTIVITAMIN TAB PO SCH (09:00)
[2020-12-08] MEDS ORDERED: FLUTICASONE/VILANTEROL 200/25MCG 14 PUFFS/INHALER INH SCH (09:00)
[2020-12-08] MEDS ORDERED: buPROPion SR 150 MG TABCR PO SCH (09:00)
[2020-12-08] MEDS ORDERED: ATORVASTATIN 40 MG TAB PO SCH (09:00)
== END 2020-12-08 12:03 | disposition home health service (06) ==
LOC: 3E 06:26 → ASU 06:26

== ENCOUNTER 2021-01-27 11:25 | Observation (INO) ==
--- NOTE | 2021-01-26 08:34 | Anesthesiology Consultation ---
Date of Service January 26, 2021 Assessment & Plan (1) Encounter for pre-operative examination: COVID Status: As of 01/26 PAT assessment coordinator, patient denies travel to endemic area, known exposure/sick contacts, or symptoms of COVID19. Preoperative COVID19 testing completed on 01/26 via [place], results pending now but should be resulted by OR time. Per Olga Lidia at Dr. Live's office, case was approved by Dr. Vera, as patient will need to be admitted post-op and bed capacity is currently limited due to burden of COVID hospitalizations. Chart Review Chart Review: Acceptable Risk for Surgery and Patient NOT seen in Pre Admission Testing History Surgery Operation Date: 01/27/21 13:30 Proposed Procedures p Right Revision Anterior Total Hip Arthroplasty - John Live DO Height/Weight Height: 5 ft 5 in Weight: 99.79 kg Allergies Allergy/AdvReac Type Severity Reaction Status Date / Time No Known Allergies Allergy Verified 01/26/21 08:27 Medications Home Medications Medication Instructions Recorded Confirmed Last Taken aspirin [Aspirin Low Dose] 81 mg PO QAM 11/29/18 01/26/21 12/06/20 10:00 albuterol sulfate [Ventolin HFA] 2 puff INHALATION QID 09/20/20 01/26/21 12/06/20 04:30 atorvastatin 40 mg tablet 40 mg PO QAM #30 tab 11/30/20 01/26/21 12/06/20 10:00 ipratropium 20 mcg-albuterol 100 1 puff INH QID #4 g 11/30/20 01/26/21 12/06/20 22:00 mcg/actuation mist for inhalation omeprazole 20 mg capsule,delayed 20 mg PO QAM #30 cap 11/30/20 01/26/21 12/06/20 10:00 release Advair Diskus 250 mcg-50 mcg/dose 1 inh INHALATION BID #60 ea NS 12/02/20 01/26/21 12/07/20 04:30 powder for inhalation multivitamin 1 tab PO QAM 12/07/20 01/26/21 12/06/20 10:00 albuterol sulfate 90 mcg/actuation 2 inh INHALATION Q6H PRN #18 g 01/25/21 01/26/21 Unknown aerosol inhaler Past Medical History Medical History Asthma PT STATES TAKES RESCUE INHALER DAILY Carotid stenosis, left S/P L CEA (02/18/20) (Prior to CEA patient had 80% LICA stenosis ) Cerebral aneurysm Per records, pt unaware No significant aneurysm noted with head CTA and brain MRI from 01/2020 CKD (chronic kidney disease) stage III COPD (chronic obstructive pulmonary disease) CVA (cerebral vascular accident) CVA 02/11/20- no residual effects, follows with [place] neurology, patient was on plavix until ~1 month after left CEA surgery, now on ASA 81mg Depression with anxiety GERD (gastroesophageal reflux disease) History of Meniere's disease History of prediabetes HGBA1C 6.3% on 02/12/20 Hyperlipidemia Hypertension Osteoarthritis Past Family History Family History Mother Diabetes Family history of diabetes mellitus Sister Diabetes Family history of diabetes mellitus Other Heart disease No family history of adverse response to anesthesia Denies family history of Ovarian cancer Prostate cancer Myocardial infarction Breast cancer Colorectal cancer Past Surgical History Surgical History H/O carotid endarterectomy Left CEA: 02/18/20: Grade view 1 with head lift, MAC#3, ETT 7.0 at [facility] History of appendectomy History of bilateral tubal ligation History of brain surgery 5 years ago (Meniere's treatment/[facility]) History of cataract surgery R/L History of section x1 History of cholecystectomy History of colonoscopy History of esophagogastroduodenoscopy (EGD) History of tonsillectomy History of tooth extraction History of total hip arthroplasty RT Social History Smoking Status: Current every day smoker tobacco type: cigarettes Smoking cigarettes per day: 20 CIG DAILY (WILL START NICOTINE PATCH AND STOP SMOKING WHEN GETS RX) Hx Alcohol Use: No Hx Substance Use: Yes substance use type: marijuana Substance Use Type Other:: DAILY MARIJUANA Lab Results Anesthesia Preop Results Results Anesthesia Widget: WBC 21.24 K/uL (4.8-10.8) H 12/08/20 Hgb 10.1 g/dL (12.0-16.0) L 12/08/20 Hct 29.9 % (37-47) L 12/08/20 Plt 217 K/uL (130-400) 12/08/20 Na 141 mmol/L (136-145) 12/08/20 K 4.1 mmol/L (3.5-5.1) 12/08/20 Cl 110 mmol/L (98-107) H 12/08/20 CO2 25 mmol/L (21-32) 12/08/20 BUN 23 mg/dl (7-18) H 12/08/20 Creat 1.23 mg/dl (0.6-1.2) H 12/08/20 Glucose Level 143 mg/dl (70-99) H 12/08/20 Blood Type A Positive 12/07/20 Antibody Screen NEGATIVE 12/07/20 Lab Comments: Labs were post-op from [facility]. Will update AM DOS. Testing Electrocardiogram Date: 02/11/20 Sinus rhythm at 78 bpm with occasional PVCs. Otherwise normal EKG. Chest X-Ray Date: 02/11/20 Findings: + NAD Other Testing Echocardiogram Date: 02/12/20 LV Function: normal EF 60 to 65%. No regional wall motion abnormalities. Borderline concentric LVH. No significant valvular disease. Left carotid duplex 04/20/20 Patent left carotid endarterectomy with no evidence of restenosis. Antegrade flow in the left vertebral artery. Normal flow in the left subclavian artery. Brain MRI 02/11/20 Multiple scattered foci of restricted water diffusion within the left hemisphere with involvement of the left frontal parietal and occipital lobes. The findings are indicative of acute/subacute infarcts Neck CTA 02/11/20 Extensive plaque with 80% stenosis of the proximal left internal carotid artery. Chronic occlusion of the left external carotid artery with distal reconstitution. Less than 50% stenosis of the proximal right internal carotid artery. Mild to moderate stenosis at the origin of the left common carotid and left subclavian arteries, suboptimally assessed on this exam. Severe stenosis at the origin of the left vertebral artery and moderate stenosis at the origin of the right vertebral artery. Subsequent left CEA 02/2020*
--- NOTE | 2021-01-27 06:56 | History & Physical Report ---
Date of Service January 27, 2021 Assessment & Plan (1) Periprosthetic hip fracture: We will proceed with a removal of the stent and conversion to a longstem prosthesis with an ORIF of the lesser trochanter. Postoperatively she will be started back on aspirin for DVT prophylaxis and kept overnight in the hospital for postoperative medical management. History of Present Illness Chief Complaint: Right periprosthetic hip fracture . Primary Care Provider: Edwin Valdez MD Radha is a pleasant six 5-year-old female who underwent a standard right anterior total hip arthroplasty 6 weeks ago. She was initially doing well postoperatively. She came to her 6-week follow-up visit 3 days ago. She walked into the clinic at the end of visit and says she was really having no pain in her hip and was very happy with her outcome. I obtained my standard 6-week postop x-rays and it showed a periprosthetic right proximal femur fracture. The patient and I were both surprised by the fracture. She denies any falls or traumas. She says she has been having a nice recovery for her hip and she is happy with her outcome. I had discussions with her at bedside and I really recommended revising this to a long stem prosthesis. After discussions in the office, she elected to proceed with a revision right hip replacement. . Allergies Allergy/AdvReac Type Severity Reaction Status Date / Time No Known Allergies Allergy Verified 01/26/21 08:27 Home Medications Medication Instructions Recorded Confirmed Type aspirin [Aspirin Low Dose] 81 mg PO QAM 11/29/18 01/26/21 History albuterol sulfate [Ventolin HFA] 2 puff INHALATION QID 09/20/20 01/26/21 History atorvastatin 40 mg tablet 40 mg PO QAM #30 tab 11/30/20 01/26/21 Rx ipratropium 20 mcg-albuterol 100 1 puff INH QID #4 g 11/30/20 01/26/21 Rx mcg/actuation mist for inhalation omeprazole 20 mg capsule,delayed 20 mg PO QAM #30 cap 11/30/20 01/26/21 Rx release Advair Diskus 250 mcg-50 mcg/dose 1 inh INHALATION BID #60 ea NS 12/02/20 01/26/21 Rx powder for inhalation multivitamin 1 tab PO QAM 12/07/20 01/26/21 History albuterol sulfate 90 mcg/actuation 2 inh INHALATION Q6H PRN #18 g 01/25/21 01/26/21 Rx aerosol inhaler Past Med/Surg History Medical History Asthma PT STATES TAKES RESCUE INHALER DAILY Carotid stenosis, left S/P L CEA (02/18/20) (Prior to CEA patient had 80% LICA stenosis ) Cerebral aneurysm Per records, pt unaware No significant aneurysm noted with head CTA and brain MRI from 01/2020 CKD (chronic kidney disease) stage III COPD (chronic obstructive pulmonary disease) CVA (cerebral vascular accident) CVA 02/11/20- no residual effects, follows with [place] neurology, patient was on plavix until ~1 month after left CEA surgery, now on ASA 81mg Depression with anxiety GERD (gastroesophageal reflux disease) History of Meniere's disease History of prediabetes HGBA1C 6.3% on 02/12/20 Hyperlipidemia Hypertension Osteoarthritis Surgical History H/O carotid endarterectomy Left CEA: 02/18/20: Grade view 1 with head lift, MAC#3, ETT 7.0 at [facility] History of appendectomy History of bilateral tubal ligation History of brain surgery 5 years ago (Meniere's treatment/[facility]) History of cataract surgery R/L History of section x1 History of cholecystectomy History of colonoscopy History of esophagogastroduodenoscopy (EGD) History of tonsillectomy History of tooth extraction History of total hip arthroplasty RT Family History Mother Diabetes Family history of diabetes mellitus Sister Diabetes Family history of diabetes mellitus Other Heart disease No family history of adverse response to anesthesia Denies family history of Ovarian cancer Prostate cancer Myocardial infarction Breast cancer Colorectal cancer Social History Smoking Status: Current every day smoker Tobacco Type: Cigarettes Age Started Using Tobacco: 17; Cigarettes Per Day: 20 CIG DAILY (WILL START NICOTINE PATCH AND STOP SMOKING WHEN GETS RX); Second Hand Exposure: Yes; Hx Alcohol Use: No Hx Substance Use: Yes Last Used Substance Other:: LAST USED (LAST NIGHT BEFORE BED) ADVISED Substance Use Type Other:: DAILY MARIJUANA Preferred Language: Italian Communication Ability: Effective Visual Impairment: No Limitations Hearing Ability: Normal [employer] Tool Operator Required: No Beliefs That Will Affect Care: None marital status: Current Living Situation: Alone Current Living Situation Comment: DOES NOT LIVE WITH current occupational status: retired 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 Physical Exam On physical examination of the right hip, she walks into the office with a cane. Her right leg is shorter than her left. She is neurovascular intact. She actually has very good range of motion of her hip and no pain with range of motion. . Constitutional WD/WN, vitals as above Eyes PERRL, conjunctivae normal, anicteric sclerae ENMT external ear and nose normal, oropharynx normal Neck trachea midline, no thyromegaly Respiratory normal respiratory effort Cardiovascular RRR, no murmur, no edema Gastrointestinal (Abdomen) normal bowel sounds, soft, nontender, no hepatosplenomegaly Psychiatric A+Ox3, euthymic affect Results & Data Results & Data Laboratory Results . Diagnostic Findings X-rays of the right hip and pelvis do show a displaced periprosthetic fracture of the lesser trochanter of the right femur.. PG Care Time/CCT Total # of Minutes Spent Total Time Spent with Patient: Total time spent is greater than 50% in coordination of care (as documented) at patient's floor/unit and/or counseling patient: Coding Level of Care Code None Diagnoses Periprosthetic hip fracture M97.8XXA; Z96.649
[~2021-01-27 11:25] MED LIST changes: +BUPIVACAINE 0.5 % 5 MG/1 ML PF 10ML VIAL ONE; -TRANEXAMIC ACID 1,000 MG **IV Pre-op IV SCH
[2021-01-27 11:59] LABS: Hematocrit (blood only) 36.8 % (37-47); Hemoglobin 11.9 g/dL (12.0-16.0); Mean Corpuscular Hemoglobin 32.1 pg (25-34); Mean Corpuscular Volume 99.2 fL (80-100); Mean Platelet Volume 10.6 fL (7.4-10.4); Platelet Count 358 K/uL (130-400); RDW Coefficient of Variation 13.8 % (11.5-14.5); RDW Standard Deviation 49.8 fL (36.4-46.3); Red Blood Count 3.71 M/uL (4.2-5.4)
[2021-01-27] MEDS ORDERED: PROPOFOL IV EMULSION 10 MG/ML 20 ML VIAL IV ONE ×2 (12:05→18:31)
[2021-01-27] MEDS ORDERED: fentaNYL citrate 100 MCG/2 ML VIAL ONE ×3 (12:06→18:09)
[2021-01-27] MEDS ORDERED: MIDAZOLAM HCL 1 MG/ML 2ML VIAL ONE ×2 (12:06→16:08)
[2021-01-27 12:14] LABS: Calcium 9.8 mg/dl (8.5-10.1); Creatinine Clr Calc Pharmacy 64.1 ml/min; Est GFR (African American) 67.2; Potassium 3.9 mmol/L (3.5-5.1)
[2021-01-27 12:23] LABS: Mean Corpuscular Hgb Conc 32.3 g/dL (32-36)
--- NOTE | 2021-01-27 13:51 | XRay Report ---
XR chest 1V portable CLINICAL HISTORY: increased cough COMPARISON STUDY: Chest radiograph February 11, 2020. FINDINGS: Lung volumes are normal. Lungs are clear. There is no pneumothorax or pleural effusion. Car diac size is at the upper limits of normal. Mediastinal contours are normal. There is no evidence for pulmonary edema. IMPRESSION: No acute cardiopulmonary findings. ACT 112: Negative or not required by law. Electronically signed by: Marquez Coronel M.D. 01/27/2021 1:50 PM
[2021-01-27] MEDS ORDERED: ALBUT/IPRATROP 3MG/0.5MG NEB 3 ML VIAL NEB STA (14:03)
[2021-01-27] MEDS ORDERED: ALBUT/IPRATROP 3MG/0.5MG NEB 3 ML VIAL ONE (14:05)
[2021-01-27] MEDS ORDERED: BUPIVACAINE 0.5 % 5 MG/1 ML PF 10ML VIAL ONE (14:18)
[2021-01-27] MEDS ORDERED: ATROPINE SULFATE 0.1 MG/ML 10ML SYR IV PRN (14:29)
[2021-01-27] MEDS ORDERED: ONDANSETRON INJ 2 MG/ML 2 ML VIAL IV PRN ×2 (14:29→19:43)
[2021-01-27] MEDS ORDERED: ePHEDrine sulfate 50 MG/ML AMP IV PRN (14:29)
[2021-01-27] MEDS ORDERED: PHENYLEPHRINE 100MCG/ML 5ML SYR ONE ×2 (15:06→15:33)
[2021-01-27] MEDS ORDERED: ceFAZolin 1000MG 1,000 MG/7.5 ML SYR IV ONE (17:36)
--- NOTE | 2021-01-27 18:14 | Fluoroscopy Report ---
[place] hip RT 1V HISTORY: 65 years-old Female RT REVISION ANTERIOR TOTAL right hip total joint arthroplasty COMPARISON: Right hip radiographs 01/25/2021 TECHNIQUE: 2 spot fluoroscopic images of the right hip were obtained utilizing 36.3 seconds fluorosco py time FINDINGS: Revision of the right hip total joint arthroplasty with elongated femoral stem. Satisfactory alignmen t. Acute fracture of the subtrochanteric femur demonstrates improved alignment. No unexpected opaque foreign body. Expected postsurgical soft tissue swelling and deep tissue air. IMPRESSION: Right hip total joint arthroplasty with expected postoperative changes. ACT 112: Negative or not required by law. The above report was generated using voice recognition software. It may contain grammatical, syntax o r spelling errors. Electronically signed by: Patrick Zapata M.D. 01/27/2021 6:13 PM
--- NOTE | 2021-01-27 18:20 | Operative Report ---
PG Post Operative Report Pre & Post Diagnosis Operation Date: 01/27/21 13:30 Pre-Op Diagnosis: Right Hip Periprosthetic Fracture Post-Op Diagnosis: Right Hip Periprosthetic Fracture I identified the patient and participated in the time-out.: Yes Procedure Operation Date: 01/27/21 13:30 Actual Procedures p Right Revision Anterior Total Hip Arthroplasty(Right) with open reduction and internal fixation of the proximal femur- John Live DO Surgeon John Live DO Wireless Development Manager John Powell PAC Estimated Blood Loss 300 Findings Consistent with Post-Op Diagnosis Specimens None Complications none Disposition Disposition: Recovery Room Indications Radha is a pleasant 65-year-old female who presented my office 2 days ago with a periprosthetic hip fracture. She had her hip replaced 6 weeks ago. She denies any trauma. She did not know her hip was fractured. After discussions in the office, we elected to proceed with a revision right hip replacement. Description of Procedure Implants used: I used a [employer]att modular hip revision system with a size 13 STS stem, a size A 70 mm cone, and a 36 mm ceramic head with a -3 neck. On January 27, 2021 Radha arrived at [facility] for the above procedure. She was seen in the preoperative holding area and the operative extremity was identified and signed. She was given a preoperative antibiotic. She was taken back to the operating room and given a spinal anesthetic. She was then given basic sedation. The right hip was brought out through a Purist leg positioner. The right hip was then prepped and draped in sterile fashion. A timeout was done. The patient and the operative extremity was properly identified. An extended anterior approach was used. Dissection was taken down to the fascia. The fascia was incised. Time was spent doing a meticulous dissection down to the proximal femur and to the midshaft of the femur through the IT band. 2 fiber tape cerclage cables were placed distal to the fracture site. The vastus lateralis was retracted anteriorly. A fiber tape cerclage was placed just distal to the fracture and then tightened. An additional fiber tape cerclage was passed distal to that. Attention was then turned to the proximal femur. The hip was then dislocated and the femoral stem was removed. Sequential reaming of the canal was done up to a size 13 reamer. A size 13 STS stem was then impacted into place. The cone for the metaphyseal component was then reamed. Measured to be a size a. A size 70 metaphyseal segment was then trialed. A -3 head was trialed. The hip was then reduced. I was happy with the overall alignment. The hip was then dislocated. The trials were removed. The final size a 70 mm metaphyseal segment was then impacted into place. A set screw was placed. A 36 mm ceramic head with a -3 neck was then impacted into place. The hip was then reduced. Fluoroscopic images showed near anatomic alignment of the right hip. I was happy with the overall length. The lesser trochanteric segment was then repaired back to the proximal femur with 3 fiber tape cerclage sutures. These were each tensioned separately. I was able to get a nice overall reduction of the lesser trochanteric fragment. Final fluoroscopic images were taken. We then did a 3-minute Betadine lavage. Surrounding soft tissues were injected with 100 cc an orthopedic pain control cocktail. The wound was then irrigated. The fascia was closed with #1 PDS suture. Skin was closed with a deep 2-0 Vicryl layer followed by a subcutaneous 2-0 Vicryl layer followed by melanie. A large soft dressing was placed. She was then transferred to a hospital bed and taken to the postanesthesia care unit in stable condition. She tolerated the procedure well. John Powell PA-C, was present for the entire procedure. He was critical for patient positioning, prepping, draping, retraction exposure, wound closure and application of sterile dressing. I attest to the content of the Intraoperative Record and any orders documented therein. Any exceptions are noted below.
[2021-01-27] MEDS ORDERED: ONDANSETRON INJ 2 MG/ML 2 ML VIAL ONE (18:30)
[2021-01-27] MEDS ORDERED: ePHEDrine sulfate 50 MG/ML SYR ONE (18:31)
--- NOTE | 2021-01-27 19:05 | XRay Report ---
XR hip 1V RT w pelvis HISTORY: 65 years-old Female IN PACU - A/P PELVIS and LATERAL HIP right hip total joint arthroplast y COMPARISON: Right hip radiographs 01/25/2021 TECHNIQUE: AP view of the pelvis with crosstable lateral view of the right hip FINDINGS: Revision of the right hip total joint arthroplasty with elongated femoral stem. Improved alignment of the acute subtrochanteric fracture of the right femur. Expected postoperative soft tissue swelling w ith deep tissue air. Lateral overlying skin melanie. Moderate left hip osteoarthritis. No retained fo reign body identified. IMPRESSION: Right hip total joint arthroplasty with expected postoperative changes. ACT 112: Negative or not required by law. The above report was generated using voice recognition software. It may contain grammatical, syntax o r spelling errors. Electronically signed by: Patrick Zapata M.D. 01/27/2021 7:04 PM
[2021-01-27] MEDS: fentaNYL citrate 100 MCG/2 ML VIAL IV PRN ×2 (19:06→19:11)
[2021-01-27] MEDS ORDERED: NALOXONE HCL 0.4 MG/1 ML VIAL/CARP IV PRN (19:43)
[2021-01-27] MEDS ORDERED: MAGNESIUM HYDROXIDE SUSP 30 ML UDC PO PRN (19:43)
[2021-01-27] MEDS ORDERED: bisacodyL 10 MG SUPP PR PRN (19:43)
[2021-01-27] MEDS ORDERED: ALBUTEROL HFA 8 GM INHALER INH PRN (19:43)
[2021-01-27] MEDS ORDERED: HYDROmorphone INJ 0.5 MG/0.5 ML SYR IV PRN (19:43)
[2021-01-27] MEDS ORDERED: METOCLOPRAMIDE HCL INJ 5 MG/ML 2 ML VIAL IV PRN (19:43)
--- NOTE | 2021-01-27 19:47 | Anesthesiology Progress Note ---
Date of Service January 27, 2021 Anesthesia Post Procedure Vital Signs Vital Signs: Temp Pulse Pulse Resp BP Pulse Ox 01/27/21 19:20 36.2 C L 66 14 123/60 100 01/27/21 19:10 56 L 15 114/77 98 01/27/21 19:00 36.2 C L 79 21 115/66 99 01/27/21 18:50 81 17 120/61 99 01/27/21 18:40 84 16 104/75 98 01/27/21 18:30 78 12 112/82 99 01/27/21 18:24 36.0 C L 75 12 89/61 L 96 01/27/21 14:11 88 18 95 01/27/21 12:40 36.8 C 87 18 143/75 H 98 01/27/21 11:30 36.8 C 52 L 18 152/82 H 96 Pain Intensity Right Anterior Hip: Pain Intensity: 3 Transfer of Care Handoff Completed per policy Notes Mental Status: alert / awake / arousable Patient Amnestic to Procedure: Yes Nausea / Vomiting: adequately controlled Pain: adequately controlled Airway Patency, RR, SpO2: stable & adequate BP & HR: stable & adequate Hydration State: stable & adequate Anesthetic Complications: no major complications apparent
[2021-01-27] MEDS: SODIUM CHLORIDE 0.9% 1000ML 1,000 ML IV SCH (20:33)
[2021-01-27] MEDS: oxyCODONE HCL IR 5 MG TAB (IMMEDIATE RELEASE) PO PRN (20:33)
[2021-01-27] MEDS ORDERED: ALBUTEROL HFA 8 GM INHALER INH SCH (21:00)
[2021-01-27] MEDS ORDERED: IPRATROPIUM BROMIDE/ALBUTEROL respimat INH INH SCH (21:00)
[2021-01-27] MEDS ORDERED: CARBOHYDRATES FOR HYPOGLYCEMIA PO PRN (21:26)
[2021-01-27] MEDS ORDERED: GLUCAGON FOR INJ 1 MG VIAL SQ PRN (21:26)
[2021-01-27] MEDS ORDERED: GLUCOSE 10 TABS/TUBE PO PRN (21:26)
[2021-01-27] MEDS ORDERED: DEXTROSE 50% 50 ML SYRINGE IV PRN (21:26)
[2021-01-27] MEDS ORDERED: GLUCOSE 40% GEL 15 GM TUBE PO PRN (21:26)
[2021-01-27] MEDS: KETOROLAC 30 MG/ML VIAL IV SCH (21:47)
[2021-01-27] MEDS: ceFAZolin 2000MG 2,000 MG/15 ML SYR IV SCH (21:54)
[2021-01-27] MEDS: SENNA 8.6 MG TAB PO SCH (21:54)
[2021-01-27] MEDS: ASPIRIN 81 MG ECTAB PO SCH (21:54)
[2021-01-27] MEDS: ACETAMINOPHEN 500 MG TAB PO SCH (21:55)
[2021-01-27] MEDS: DOCUSATE SODIUM 100 MG CAP PO SCH (21:55)
[2021-01-27] MEDS: INSULIN ASPART 100 UNITS/ML 3 ML PEN SC SCH (22:58)
[2021-01-27] MEDS: NICOTINE 14 MG/24 HR PATCH TD SCH (22:59)
[2021-01-28] MEDS: KETOROLAC 30 MG/ML VIAL IV SCH ×4 (03:06→19:41)
[2021-01-28] MEDS: oxyCODONE HCL IR 5 MG TAB (IMMEDIATE RELEASE) PO PRN ×3 (03:28→18:14)
[2021-01-28] MEDS: ceFAZolin 2000MG 2,000 MG/15 ML SYR IV SCH (05:11)
[2021-01-28] MEDS: ACETAMINOPHEN 500 MG TAB PO SCH ×3 (05:11→21:01)
[2021-01-28] MEDS: SODIUM CHLORIDE 0.9% 1000ML 1,000 ML IV SCH (06:05)
--- NOTE | 2021-01-28 06:36 | Electrocardiogram Report ---
Test Reason : Blood Pressure : / mmHG Vent. Rate : 090 BPM Atrial Rate : 090 BPM P-R Int : 140 ms QRS Dur : 084 ms QT Int : 388 ms P-R-T Axes : 057 073 053 degrees QTc Int : 474 ms Sinus rhythm with frequent Premature ventricular complexes Otherwise normal ECG When compared with ECG of 11-FEB-2020 16:28, No significant change was found Confirmed by Homer Sinclair ([id number]) on 01/28/2021 6:35:53 AM Referred By: John Live Confirmed By:Homer Sinclair
[2021-01-28 06:46] LABS: Basophils # (auto) 0.01 K/uL (0-0.2); Basophils % (auto) 0.1 %; Hematocrit (blood only) 25.1 % (37-47); Hemoglobin 8.2 g/dL (12.0-16.0); Immature Granulocytes # (auto) 0.05 K/uL (0.00-0.02); Immature Granulocytes % (auto) 0.3 %; Lymphocytes # (auto) 0.95 K/uL (1.2-3.4); Lymphocytes % (auto) 5.6 %; Mean Corpuscular Hemoglobin 32.3 pg (25-34); Mean Corpuscular Hgb Conc 32.7 g/dL (32-36); Mean Corpuscular Volume 98.8 fL (80-100); Mean Platelet Volume 10.5 fL (7.4-10.4); Monocytes # (auto) 0.61 K/uL (0.11-0.59); Monocytes % (auto) 3.6 %; Neutrophils # (auto) 15.22 K/uL (1.4-6.5); Neutrophils % (auto) 90.4 %; Platelet Count 240 K/uL (130-400); RDW Coefficient of Variation 13.7 % (11.5-14.5); RDW Standard Deviation 49.8 fL (36.4-46.3); Red Blood Count 2.54 M/uL (4.2-5.4); White Blood Count 16.84 K/uL (4.8-10.8)
[2021-01-28] MEDS: Albuterol HFA 8 GM Inhaler (Combivent Respimat P&T Subs) INH SCH ×4 (07:18→19:11)
[2021-01-28] MEDS: Ipratropium HFA Inhaler (Combivent Respimat P&T Subs) INH SCH ×4 (07:18→19:11)
[2021-01-28 07:34] LABS: BUN Creatinine Ratio 25.6 (10-20); Calcium 8.1 mg/dl (8.5-10.1); Creatinine Clr Calc Pharmacy 28.3 ml/min; Est GFR (African American) 58.7; Est GFR (Non-African American) 50.6; Potassium 4.5 mmol/L (3.5-5.1)
[2021-01-28] MEDS ORDERED: dexAMETHasone 4 MG TAB PO SCH (08:00)
[2021-01-28] MEDS: ATORVASTATIN 40 MG TAB PO SCH (08:08)
[2021-01-28] MEDS: ASPIRIN 81 MG ECTAB PO SCH ×2 (08:08→21:00)
[2021-01-28] MEDS: MULTIVITAMIN TAB PO SCH (08:09)
[2021-01-28] MEDS: FLUTICASONE/VILANTEROL 100/25MCG 14 PUFFS/INHALER INH SCH (08:09)
[2021-01-28] MEDS: DOCUSATE SODIUM 100 MG CAP PO SCH ×2 (08:09→21:00)
[2021-01-28 08:42] LABS: Estimated Average Glucose 128 mg/dl; Hemoglobin A1C 6.1 % (4.5-5.6)
--- NOTE | 2021-01-28 08:51 | Hospitalist Consultation ---
Date of Consultation January 28, 2021 Assessment & Plan (1) Periprosthetic hip fracture: Management per primary orthopedic team (2) Postoperative anemia: Repeat H&H every 6 hourly to ensure stable. Monitor for orthostatic hypotension and dizziness when standing. (3) Tobacco use disorder: Nicotine patch 14 mg TD daily (4) Hyperlipidemia: History of CVA 2019. Continue aspirin and atorvastatin (5) GERD (gastroesophageal reflux disease): Switch omeprazole for pantoprazole per hospital formulary (6) COPD (chronic obstructive pulmonary disease): Patient Continue Advair Diskus twice daily or hospital formulary equivalent (7) DVT prophylaxis: Aspirin 81 mg p.o. twice daily per primary orthopedic team History of Present Illness Reason for Consultation: Medical management Attending Physician: John Live DO History of Present Illness Radha Tello is a 65-year-old female who presents for periprosthetic right hip fracture performed yesterday 01/27. Picked up on routine 4 month follow up. XR on Sunday. No complications but with estimated blood loss of 300 mL. No acute complaints at this time. She reports making smokes 1.5 packs/day. Tried wellbutrin in the past - interested in trying this again but for now just wishes the patch. COPD -well-controlled on current Advair Diskus Hx CVA -reports no residual symptoms from this No prior history of myocardial infarction Allergies Allergy/AdvReac Type Severity Reaction Status Date / Time No Known Allergies Allergy Verified 01/27/21 11:51 Home Medications Medication Instructions Recorded Confirmed Type aspirin [Aspirin Low Dose] 81 mg PO QAM 11/29/18 01/27/21 History albuterol sulfate [Ventolin HFA] 2 puff INHALATION QID 09/20/20 01/27/21 History atorvastatin 40 mg tablet 40 mg PO QAM #30 tab 11/30/20 01/27/21 Rx ipratropium 20 mcg-albuterol 100 1 puff INH QID #4 g 11/30/20 01/27/21 Rx mcg/actuation mist for inhalation omeprazole 20 mg capsule,delayed 20 mg PO QAM #30 cap 11/30/20 01/27/21 Rx release Advair Diskus 250 mcg-50 mcg/dose 1 inh INHALATION BID #60 ea NS 12/02/20 01/27/21 Rx powder for inhalation multivitamin 1 tab PO QAM 12/07/20 01/27/21 History albuterol sulfate 90 mcg/actuation 2 inh INHALATION Q6H PRN #18 g 01/25/21 01/27/21 Rx aerosol inhaler oxycodone 5 mg PO Q4H PRN #30 tab 01/29/21 Rx Patient History Medical History Asthma PT STATES TAKES RESCUE INHALER DAILY Carotid stenosis, left S/P L CEA (02/18/20) (Prior to CEA patient had 80% LICA stenosis ) Cerebral aneurysm Per records, pt unaware No significant aneurysm noted with head CTA and brain MRI from 01/2020 CKD (chronic kidney disease) stage III COPD (chronic obstructive pulmonary disease) CVA (cerebral vascular accident) CVA 02/11/20- no residual effects, follows with [facility], patient was on plavix until ~1 month after left CEA surgery, now on ASA 81mg Depression with anxiety GERD (gastroesophageal reflux disease) History of Meniere's disease History of prediabetes HGBA1C 6.3% on 02/12/20 Hyperlipidemia Hypertension Osteoarthritis Surgical History H/O carotid endarterectomy Left CEA: 02/18/20: Grade view 1 with head lift, MAC#3, ETT 7.0 at [facility] History of appendectomy History of bilateral tubal ligation History of brain surgery 5 years ago (Meniere's treatment/[facility]) History of cataract surgery R/L History of section x1 History of cholecystectomy History of colonoscopy History of esophagogastroduodenoscopy (EGD) History of tonsillectomy History of tooth extraction History of total hip arthroplasty RT Family History Mother Diabetes Family history of diabetes mellitus Sister Diabetes Family history of diabetes mellitus Other Heart disease No family history of adverse response to anesthesia Denies family history of Ovarian cancer Prostate cancer Myocardial infarction Breast cancer Colorectal cancer Social History Smoking Status: Current every day smoker Tobacco Type: Cigarettes Age Started Using Tobacco: 17; Cigarettes Per Day: 20 CIG DAILY (WILL START NICOTINE PATCH AND STOP SMOKING WHEN GETS RX); Second Hand Exposure: Yes; Do You Dip or Chew Tobacco: No; Tobacco Cessation Education Requested by Patient: No Hx Alcohol Use: No Hx Substance Use: Yes Last Used Substance: Days (ago) Last Used Substance Other:: LAST USED (LAST NIGHT BEFORE BED) ADVISED Substance Use Type Other:: DAILY MARIJUANA Preferred Language: Citizen Of [place] Communication Ability: Effective Visual Impairment: No Limitations Hearing Ability: Normal 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: No Beliefs That Will Affect Care: None marital status: Current Living Situation: Alone Current Living Situation Comment: DOES NOT LIVE WITH current occupational status: retired 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 Feels Safe at Home: Yes Safety Concerns: Feels Safe At This Time Childhood Exposure to Second-Hand Smoke: Yes Dental Care, Regularly: No Physical Activity Frequency: Does not Exercise Seatbelt Use: always Sunscreen Use: No Assistive Devices: Walker Review of Systems Review of Systems: All systems reviewed & are unremarkable except as noted in HPI & below Physical Exam Respiratory: normal respiratory effort, lungs clear to auscultation Cardiovascular: RRR, no murmur, no edema Gastrointestinal (Abdomen): normal bowel sounds, soft, nontender, no hepatosplenomegaly Musculoskeletal: Neurovascular intact distal to operation site Skin: Dressing on right leg not removed. Is not blood soaked and no hematoma appreciated. Psychiatric: A+Ox3, euthymic affect Results & Data Results & Data ([facility]) Vital Signs (Past 12 Hours) Vital Signs Temp Pulse Resp BP BP Pulse Ox 01/28/21 08:21 36.5 C 80 18 106/70 95 01/28/21 07:19 87 16 94 01/28/21 03:40 114 H 18 93 01/28/21 03:06 36.5 C 80 16 123/78 93 01/27/21 23:08 36.4 C L 75 20 110/66 92 01/27/21 21:40 36.4 C L 80 14 134/76 96 PG Care Time/CCT Total # of Minutes Spent Total Time Spent with Patient: Total time spent is greater than 50% in coordination of care (as documented) at patient's floor/unit and/or counseling patient: Coding Level of Care Code 39347 Inpt Consult Level 4 Diagnoses Periprosthetic hip fracture M97.8XXA; Z96.649 Postoperative anemia D64.9 Tobacco use disorder F17.200 Hyperlipidemia E78.5 GERD (gastroesophageal reflux disease) K21.9 COPD (chronic obstructive pulmonary disease) J42 COPD type: chronic bronchitis Chronic bronchitis type: unspecified DVT prophylaxis Z29.9 (1) COPD (chronic obstructive pulmonary disease) COPD type: chronic bronchitis Chronic bronchitis type: unspecified Qualified Code(s): J42 - Unspecified chronic bronchitis
[2021-01-28] MEDS: INSULIN ASPART 100 UNITS/ML 3 ML PEN SC SCH ×4 (08:58→21:02)
[2021-01-28 12:04] LABS: Hematocrit (blood only) 24.5 % (37-47)
--- NOTE | 2021-01-28 12:38 | Orthopedic Progress Note ---
Date of Service January 28, 2021 Assessment & Plan (1) Status post revision of total hip replacement: Overall she is doing fairly well. Her H&H is little bit low today. She is feeling a little bit fatigued. I think she would do well with 2 units of packed red blood cells. My experience the H&H continues to drop tomorrow. She will stay in the hospital today for the blood transfusion as well as therapy and pain control. I will see her tomorrow. If she is doing well tomorrow she would like to be discharged home. Layton Garcia was seen and examined at bedside this morning. Overall she is doing fairly well. She is a little bit fatigued. She did see therapy this morning and was able to be compliant with touchdown weightbearing restrictions. She has no other complaints. . Review of Systems All systems reviewed & are unremarkable except as noted in HPI & below. Physical Exam On physical examination of the right hip, the dressing has been changed. There is no signs of infection. Her leg lengths are equal. She has active dorsiflexion plantarflexion of her right ankle. . Results & Data Results & Data Laboratory Results . Diagnostic Findings Postoperative x-rays of the right hip show the prosthesis to be in anatomic alignment without any evidence of fracture, dislocation, or loosening . PG Care Time/CCT Total # of Minutes Spent Total Time Spent with Patient: Total time spent is greater than 50% in coordination of care (as documented) at patient's floor/unit and/or counseling patient: Coding Level of Care Code 29720 Post Operative Follow-Up Diagnoses Status post revision of total hip replacement Z96.649
[2021-01-28] MEDS ORDERED: SODIUM CHLORIDE 0.9% 250 ML IV PRN ×2 (12:39)
[2021-01-28] MEDS: SENNA 8.6 MG TAB PO SCH (21:00)
[2021-01-28 21:46] LABS: Hematocrit (blood only) 30.2 % (37-47); Hemoglobin 10.1 g/dL (12.0-16.0)
[2021-01-29] MEDS: KETOROLAC 30 MG/ML VIAL IV SCH ×2 (01:56→08:21)
[2021-01-29] MEDS: oxyCODONE HCL IR 5 MG TAB (IMMEDIATE RELEASE) PO PRN ×2 (04:15→12:29)
[2021-01-29 05:51] LABS: Hematocrit (blood only) 30.3 % (37-47); Hemoglobin 10.1 g/dL (12.0-16.0)
[2021-01-29] MEDS: ACETAMINOPHEN 500 MG TAB PO SCH (06:04)
--- NOTE | 2021-01-29 07:07 | Orthopedic Progress Note ---
Date of Service January 29, 2021 Assessment & Plan (1) Status post revision of total hip replacement: Overall she is doing well. She feels better after the transfusion. She is not having much pain in the right hip. She will be seen by physical therapy again today for ambulation and range of motion exercises. She is to be touch toe weightbearing on her right leg for 6 weeks. She is on aspirin for DVT prophylaxis. She can be discharged home later today. She can follow-up with orthopedics in 2 weeks. Layton Garcia was seen and examined at bedside this morning. Overall she is doing well. She feels better after the transfusion. She was able to participate well yesterday with physical therapy. She is not having too much pain in her hip. She has no complaints.. Review of Systems All systems reviewed & are unremarkable except as noted in HPI & below. Physical Exam On physical examination of her right hip, the dressing is clean and dry. Her leg lengths are equal. She has active dorsiflexion plantarflexion of her right ankle.. Results & Data Results & Data Laboratory Results . Diagnostic Findings . PG Care Time/CCT Total # of Minutes Spent Total Time Spent with Patient: Total time spent is greater than 50% in coordination of care (as documented) at patient's floor/unit and/or counseling patient: Coding Level of Care Code 47053 Post Operative Follow-Up Diagnoses Status post revision of total hip replacement Z96.649
--- NOTE | 2021-01-29 07:09 | Discharge Summary ---
Date of Service January 29, 2021 Admission HPI (Per Admitting) Radha is a pleasant six 5-year-old female who underwent a standard right anterior total hip arthroplasty 6 weeks ago. She was initially doing well postoperatively. She came to her 6-week follow-up visit 3 days ago. She walked into the clinic at the end of visit and says she was really having no pain in her hip and was very happy with her outcome. I obtained my standard 6-week postop x-rays and it showed a periprosthetic right proximal femur fracture. The patient and I were both surprised by the fracture. She denies any falls or traumas. She says she has been having a nice recovery for her hip and she is happy with her outcome. I had discussions with her at bedside and I really recommended revising this to a long stem prosthesis. After discussions in the office, she elected to proceed with a revision right hip replacement. . Admission Exam (Per Admitting) On physical examination of the right hip, she walks into the office with a cane. Her right leg is shorter than her left. She is neurovascular intact. She actually has very good range of motion of her hip and no pain with range of motion. . Principal Diagnosis Same as "Discharge Diagnosis" noted below under Discharge Instructions. Discharge Exam On physical examination of her right hip, the dressing is clean and dry. Her leg lengths are equal. She has active dorsiflexion plantarflexion of her right ankle.. Discharge Data Consultations 01/27/21 21:09 Consult Hospitalist Routine Procedures Performed Operation Date: 01/27/21 13:30 Actual Procedures p Right Revision Anterior Total Hip Arthroplasty with Open Reduction and Internal Fixation of the Right Proximal Femur(Right) - John Live DO Ordered Studies 01/27/21 13:30 FL fluoroscopy <1hr Routine FL hip RT 1V Routine Hospital Course (1) Status post revision of total hip replacement: On January 27, 2021 Radha arrived at [facility] and underwent a revision of her right hip without complication. She had a spinal anesthetic. Postoperatively she was transferred to the general orthopedic floors and started on aspirin for DVT prophylaxis. Her hospital course was relatively uneventful. On postop day #1 her H&H was a little bit low. She was able to participate well with physical therapy doing ambulation and range of motion exercises. She did receive 2 units of packed red blood cells. Her pain was well controlled. On postop day #2 she was feeling a little bit better. She was seen again by physical therapy for ambulation and range of motion exercises. She was not having much pain in her right hip. She was then discharged home. She will follow-up with orthopedics in 2 weeks. PG Care Time/CCT Total # of Minutes Spent Total Time Spent with Patient: Total time spent is greater than 50% in coordination of care (as documented) at patient's floor/unit and/or counseling patient: Discharge Plan Discharge Items Patient Disposition: Home - Home Health Services Reason For Visit: Right Hip Periprosthetic Fracture Discharge Diagnosis: Revision right hip replacement Activity: As commented below Non-emergency contact: Surgeon Call non-emergency contact if: your wound has increased redness and your wound has increased drainage Follow-up/Referrals: Jose Elias Valdez MD [Primary Care Provider] - Diet: Regular Addtl Attending Provider Instructions: ORTHOPEDIC INSTRUCTIONS Activity Recommendations: Touch toe weightbearing to the right leg Medications: Oxycodone as needed for pain Aspirin 81 mg twice a day for DVT prophylaxis Dressing Care: Daily dry dressing changes. Melanie can be open to air as long as the incisions are not draining. If the incisions are draining or if the melanie are getting caught on your clothes then please cover the melanie with dry gauze. Change the dressings as necessary to keep the incision as dry as possible Showering: You may shower 5 days from the day of surgery as long as the incisions are not draining. Do not soak the incision. Let soapy water run over the melanie and pat them dry. Things To Watch For: 1. Drainage from the incision site that occurs more than one week after your surgery. 2. Increased redness at the incision site. 3. Fever above 102 degrees Fahrenheit. 4. Unusual chest pain or shortness of breath. 5. Call [facility] at with any of the above problems Follow-Up Visit: Follow-up with Dr. Live's PA (John Powell) 2-3 weeks after your day of surgery. He will remove your melanie and answer any questions. If you have any additional questions or concerns, Dr Live is usually in the office at the same time and will be available An appointment was probably scheduled when you signed-up for surgery in the office. If you have any questions call Pending Studies at Discharge: No Stand-Alone Forms: [facility], Smoking Cessation Medications and DC Order Prescriptions: New oxycodone 5 mg Tablet 5 mg PO Q4H PRN (Reason: pain) Qty: 30 RF: 0 Continued atorvastatin 40 mg tablet 40 mg PO QAM Qty: 30 RF: 5 Combivent Respimat 20-100 mcg/actuation mist 1 puff INH QID Qty: 4 RF: 3 omeprazole 20 mg capsule,delayed release(DR/EC) 20 mg PO QAM Qty: 30 RF: 5 fluticasone propion-salmeterol [Advair Diskus] 250-50 mcg/dose blister with device 1 inh inhalation BID Qty: 60 RF: 3 albuterol sulfate 90 mcg/actuation HFA aerosol inhaler 2 inh INHALATION Q6H PRN (Reason: Wheezing) Qty: 18 RF: 5 multivitamin Tablet 1 tab PO QAM RF: 0 albuterol sulfate [Ventolin HFA] 90 mcg/actuation Hfa Aerosol Inhaler 2 puff INHALATION QID RF: 0 Changed aspirin [Aspirin Low Dose] 81 mg Tablet,Delayed Release (Dr/Ec) 81 mg PO BID 42 Days Qty: 0 RF: 0 Discharge Orders: Discharge Order (Routine); Ordered 01/29/21 Ordered By: John Contreras/Other Patient Handouts: Prediabetes, 5 Steps for Eating Healthier, A1C Admission Data Admit Date/Time: 01/27/21 18:26 Attending Provider: John Live Admit Provider: John Live Primary Care Provider: Jose Elias Valdez Other Providers: Brandon Donald
[2021-01-29] MEDS: Ipratropium HFA Inhaler (Combivent Respimat P&T Subs) INH SCH ×2 (07:59→11:15)
[2021-01-29] MEDS: Albuterol HFA 8 GM Inhaler (Combivent Respimat P&T Subs) INH SCH ×2 (08:00→11:15)
[2021-01-29] MEDS: FLUTICASONE/VILANTEROL 100/25MCG 14 PUFFS/INHALER INH SCH (08:24)
[2021-01-29] MEDS: ASPIRIN 81 MG ECTAB PO SCH (08:25)
[2021-01-29] MEDS: MULTIVITAMIN TAB PO SCH (08:25)
[2021-01-29] MEDS: DOCUSATE SODIUM 100 MG CAP PO SCH (08:25)
[2021-01-29] MEDS: ATORVASTATIN 40 MG TAB PO SCH (08:25)
[2021-01-29] MEDS: NICOTINE 14 MG/24 HR PATCH TD SCH (08:27)
[2021-01-29] MEDS: INSULIN ASPART 100 UNITS/ML 3 ML PEN SC SCH ×2 (08:57→12:54)
--- NOTE | 2021-01-29 13:32 | Hospitalist Progress Note ---
Date of Service January 29, 2021 Assessment & Plan (1) Periprosthetic hip fracture: Management per primary orthopedic team Planning on discharging today (2) Postoperative anemia: Stable overnight. Recommend patient follows up with PCP if having sympt oms of anemia after 4 weeks. Consider iron supplementation however patient has problems with constipation especially with pain medication therefore deferred this if her anemia is not improving. (3) Tobacco use disorder: Smoking cessation advised (4) Hyperlipidemia: Continue usual home medications. No adjustments needed on discharge. (5) GERD (gastroesophageal reflux disease): Continue usual home medications. No adjustments needed on discharge. (6) COPD (chronic obstructive pulmonary disease): Continue usual home medications. No adjustments needed on discharge. (7) DVT prophylaxis: Aspirin 81 mg p.o. twice daily per primary orthopedic team Admission and Anticipated Discharge Date Admission Date: January 27, 2021 Subjective No acute complaints. Patient feels well. Planning on discharging today. Review of Systems Review of Systems: All systems reviewed & are unremarkable except as noted in HPI & below Physical Exam Constitutional: WD/WN, vitals as above Respiratory: normal respiratory effort, lungs clear to auscultation Cardiovascular: RRR, no murmur, no edema Gastrointestinal (Abdomen): normal bowel sounds, soft, nontender, no hepatosplenomegaly Musculoskeletal: Neurovascular intact distal to operation site Psychiatric: A+Ox3, euthymic affect Results & Data Results & Data ([facility]) Vital Signs (Past 12 Hours) Vital Signs Temp Pulse Pulse Pulse Resp BP BP 01/29/21 11:48 36.5 C 77 72 67 20 97/64 L 107/68 01/29/21 11:15 77 20 01/29/21 09:37 01/29/21 07:23 36.5 C 72 16 107/68 01/29/21 02:06 37.0 C 76 16 97/64 L Pulse Ox 01/29/21 11:48 95 01/29/21 11:15 95 01/29/21 09:37 96 01/29/21 07:23 95 01/29/21 02:06 94 PG Care Time/CCT Total # of Minutes Spent Total Time Spent with Patient: Total time spent is greater than 50% in coordination of care (as documented) at patient's floor/unit and/or counseling patient: Coding Level of Care Code 09022 Inpt Consult Level 2 Diagnoses Periprosthetic hip fracture M97.8XXA; Z96.649 Postoperative anemia D64.9 Tobacco use disorder F17.200 Hyperlipidemia E78.5 GERD (gastroesophageal reflux disease) K21.9 COPD (chronic obstructive pulmonary disease) J42 COPD type: chronic bronchitis Chronic bronchitis type: unspecified DVT prophylaxis Z29.9 (1) COPD (chronic obstructive pulmonary disease) COPD type: chronic bronchitis Chronic bronchitis type: unspecified Qualified Code(s): J42 - Unspecified chronic bronchitis
== END 2021-01-29 14:20 | disposition home health service (06) ==
LOC: 3E 11:25 → ASU 11:25

== ENCOUNTER 2021-03-08 10:42 | Observation (INO) ==
--- NOTE | 2021-03-07 11:45 | Anesthesiology Consultation ---
Date of Service March 07, 2021 Assessment & Plan (1) Encounter for pre-operative examination: Chart Review Chart Review: Acceptable Risk for Surgery (pending anesthesia evaluation DOS and preop Covid testing ) and Patient NOT seen in Pre Admission Testing Pt requiring admission post operatively. COVID [place] AM DOS due to possibility that patient may have a roommate NOT necessary since patient had preop Covid testing done 24 hours prior to surgery. Pt admitted after 01/27/21 hip surgery- postop patient did have anemia- did receive 2 PRBCs. Per nursing assessment 03/07/2021, patient denies any recent travel. No known Covid infection in the past 90 days. No known Covid positive contacts or Covid related symptoms. Covid test 03/07/21= results pending. Right revision anterior MAXIMUS 01/27/2021 = done under SAB at L3/4 with 1 attempt. No anesthesia issues noted per anesthesia record. (Prior to surgery- per Dr. Whittaker on 01/26/21 anesthesia consultation= Pt with cough and wheezing on respiratory exam. "cxr done to rule out pneumonia. this is no change from last year's cxr in appearence. she has had increased cough and HAMPTON over the last few weeks and notes that she has significantly increased her smoking over that time. She is not conversationally dyspneic. She denies any fever or systemic signs of infection. Although the patient is high risk from a pulmonary standpoint, Dr Live feels that the patient is best served operating on her hip as soon as is possible. We will give a duoneb treatment and proceed under spinal with light sedation. If planned conversion to general would be necessary to proceed with surgery, I do not think she is a very good candidate. The patient is understanding of the risks and also wishes to proceed." (Did speak with patient via telephone 03/07/21- she said breathing and cough have improved from January 2021) History Surgery Operation Date: 03/08/21 13:05 Proposed Procedures p Right Hip Irrigation and Debridement Possible Polyethyline Exchange - John Live DO Height/Weight Height: 5 ft 5 in Weight: 90.718 kg Allergies Allergy/AdvReac Type Severity Reaction Status Date / Time No Known Allergies Allergy Verified 03/07/21 11:15 Medications Home Medications Medication Instructions Recorded Confirmed Last Taken albuterol sulfate [Ventolin HFA] 2 puff INHALATION QID 09/20/20 03/07/21 01/27/21 08:30 atorvastatin 40 mg tablet 40 mg PO QAM #30 tab 11/30/20 03/07/21 01/27/21 08:30 ipratropium 20 mcg-albuterol 100 1 puff INH QID #4 g 11/30/20 03/07/21 01/27/21 08:30 mcg/actuation mist for inhalation omeprazole 20 mg capsule,delayed 20 mg PO QAM #30 cap 11/30/20 03/07/21 01/27/21 08:30 release multivitamin 1 tab PO QAM 12/07/20 03/07/21 01/26/21 09:00 albuterol sulfate 90 mcg/actuation 2 inh INHALATION Q6H PRN #18 g 01/25/21 03/07/21 Unknown aerosol inhaler aspirin [Aspirin Low Dose] 81 mg PO BID 42 Days #0 tab 01/29/21 03/07/21 01/26/21 09:00 oxycodone 5 mg PO Q6H PRN #60 tab 01/29/21 03/07/21 Unknown Advair Diskus 250 mcg-50 mcg/dose 1 inh INHALATION BID #180 ea NS 02/02/21 03/07/21 Unknown powder for inhalation cephalexin 500 mg capsule 500 mg PO TID #42 cap 02/09/21 03/07/21 Unknown oxycodone 5 mg tablet 5 mg PO Q6 PRN #60 tab 02/09/21 03/07/21 Unknown oxycodone-acetaminophen 5 mg-325 1 tab PO Q6H PRN #30 tab 03/01/21 03/07/21 Unknown mg tablet ondansetron HCl 4 mg tablet 4 mg PO Q8H PRN #10 tab 03/07/21 03/07/21 Unknown Past Medical History Medical History (Updated 03/07/21 @ 15:10 by Shelbie Freeman PA-C) Asthma PT STATES TAKES RESCUE INHALER DAILY Carotid stenosis, left S/P L CEA (02/18/20) (Prior to CEA patient had 80% LICA stenosis ) Cerebral aneurysm Per records, pt unaware No significant aneurysm noted with head CTA and brain MRI from 01/2020 CKD (chronic kidney disease) stage III COPD (chronic obstructive pulmonary disease) CVA (cerebral vascular accident) CVA 02/11/20- no residual effects, follows with [facility], patient was on plavix until ~1 month after left CEA surgery, now on ASA 81mg Depression with anxiety GERD (gastroesophageal reflux disease) History of Meniere's disease History of prediabetes HGBA1C 6.1% on 01/28/21 Hyperlipidemia Hypertension Osteoarthritis Past Family History Family History Mother Diabetes Family history of diabetes mellitus Sister Diabetes Family history of diabetes mellitus Other Heart disease No family history of adverse response to anesthesia Denies family history of Ovarian cancer Prostate cancer Myocardial infarction Breast cancer Colorectal cancer Past Surgical History Surgical History H/O carotid endarterectomy Left CEA: 02/18/20: Grade view 1 with head lift, MAC#3, ETT 7.0 at [facility] History of appendectomy History of bilateral tubal ligation History of brain surgery 5 years ago (Meniere's treatment/[facility]) History of cataract surgery R/L History of section x1 History of cholecystectomy History of colonoscopy History of esophagogastroduodenoscopy (EGD) History of tonsillectomy History of tooth extraction History of total hip arthroplasty RT> with repair Social History Smoking Status: Current every day smoker tobacco type: cigarettes Smoking cigarettes per day: 10-12 per day Do You Dip or Chew Tobacco: No Hx Alcohol Use: No Hx Substance Use: Yes substance use type: marijuana Substance Use Type Other:: marijuana approx once per day Last Used Substance Other:: LAST USED (LAST NIGHT BEFORE BED) ADVISED Lab Results Anesthesia Preop Results Results Anesthesia Widget: WBC 14.64 K/uL (4.8-10.8) H 03/07/21 Hgb 11.3 g/dL (12.0-16.0) L 03/07/21 Hct 35.4 % (37-47) L 03/07/21 Plt 507 K/uL (130-400) H 03/07/21 Na 136 mmol/L (136-145) 03/07/21 K 3.9 mmol/L (3.5-5.1) 03/07/21 Cl 101 mmol/L (98-107) 03/07/21 CO2 28 mmol/L (21-32) 03/07/21 BUN 15 mg/dl (7-18) 03/07/21 Creat 0.97 mg/dl (0.6-1.2) 03/07/21 Glucose Level 128 mg/dl (70-99) H 03/07/21 PT 10.2 Seconds (9.0-12.0) 03/07/21 PTT 25.8 Seconds (21.0-31.0) 03/07/21 INR 1.0 (0.9-1.1) 03/07/21 HA1c 6.1 % (4.5-5.6) H 01/28/21 Blood Type A Positive 01/27/21 Antibody Screen NEGATIVE 01/27/21 Lab Comments: Anemia stable since Nov 2020 Surgeon's office informed of leukocytosis (pt next day add on for I&D so presumed infection) Testing Electrocardiogram Date: 01/27/21 Sinus rhythm with frequent PVCs at 90 bpm. Otherwise normal EKG per cardio. Chest X-Ray Date: 01/27/21 Findings: + NAD 1 view chest x-ray No acute cardiopulmonary findings. Echocardiogram Date: 02/12/20 LV Function: normal EF 60 to 65%. No regional wall motion abnormalities. Borderline concentric LVH. No significant valvular disease. Other Testing Left carotid duplex 04/20/20 Patent left carotid endarterectomy with no evidence of restenosis. Antegrade flow in the left vertebral artery. Normal flow in the left subclavian artery. Brain MRI 02/11/20 Multiple scattered foci of restricted water diffusion within the left hemisphere with involvement of the left frontal parietal and occipital lobes. The findings are indicative of acute/subacute infarcts Neck CTA 02/11/20 Extensive plaque with 80% stenosis of the proximal left internal carotid artery. Chronic occlusion of the left external carotid artery with distal reconstitution. Less than 50% stenosis of the proximal right internal carotid artery. Mild to moderate stenosis at the origin of the left common carotid and left subclavian arteries, suboptimally assessed on this exam. Severe stenosis at the origin of the left vertebral artery and moderate stenosis at the origin of the right vertebral artery. Subsequent left CEA 02/2020*
--- NOTE | 2021-03-07 17:45 | History & Physical Report ---
Date of Service March 07, 2021 Assessment & Plan (1) Status post revision of total hip replacement: Radha is dealing with some persistent drainage from the wound. She is now 5 weeks out. It is a small amount of drainage but is been persistent. I think it is reasonable to take her to the operating room and do an open I&D and possible poly exchange. I do not want to wait too long on this. I will likely keep her overnight in the hospital for IV antibiotics. We will get complete blood work as well as a sed rate and CRP preoperatively. History of Present Illness Chief Complaint: Incisional drainage right hip. Primary Care Provider: Edwin Valdez MD Radha is a pleasant six 5-year-old female who underwent a standard anterior hip r eplacement on December 07, 2019. She walked into my clinic 6 weeks postop with a periprosthetic fracture. I took her immediately to the operating room on January 27 and did a conversion to a longstem prosthesis. She has been nonweightbearing since. There is a small area of her wound that is continued to drain. It is always been purely clear serous drainage. She goes to half of a small pad a day. It does not drain that much but is been consistent. I tried on some oral antibiotics but it has not gone away completely. After discussions in the office, we elected to go to the operating room for an I&D and possible polyexchange of the right hip.. Allergies Allergy/AdvReac Type Severity Reaction Status Date / Time No Known Allergies Allergy Verified 03/07/21 11:15 Home Medications Medication Instructions Recorded Confirmed Type albuterol sulfate [Ventolin HFA] 2 puff INHALATION QID 09/20/20 03/07/21 History atorvastatin 40 mg tablet 40 mg PO QAM #30 tab 11/30/20 03/07/21 Rx ipratropium 20 mcg-albuterol 100 1 puff INH QID #4 g 11/30/20 03/07/21 Rx mcg/actuation mist for inhalation omeprazole 20 mg capsule,delayed 20 mg PO QAM #30 cap 11/30/20 03/07/21 Rx release multivitamin 1 tab PO QAM 12/07/20 03/07/21 History albuterol sulfate 90 mcg/actuation 2 inh INHALATION Q6H PRN #18 g 01/25/21 03/07/21 Rx aerosol inhaler aspirin [Aspirin Low Dose] 81 mg PO BID 42 Days #0 tab 01/29/21 03/07/21 Rx oxycodone 5 mg PO Q6H PRN #60 tab 01/29/21 03/07/21 Rx Advair Diskus 250 mcg-50 mcg/dose 1 inh INHALATION BID #180 ea NS 02/02/21 03/07/21 Rx powder for inhalation cephalexin 500 mg capsule 500 mg PO TID #42 cap 02/09/21 03/07/21 Rx oxycodone 5 mg tablet 5 mg PO Q6 PRN #60 tab 02/09/21 03/07/21 Rx oxycodone-acetaminophen 5 mg-325 1 tab PO Q6H PRN #30 tab 03/01/21 03/07/21 Rx mg tablet ondansetron HCl 4 mg tablet 4 mg PO Q8H PRN #10 tab 03/07/21 03/07/21 Rx Past Med/Surg History Medical History Asthma PT STATES TAKES RESCUE INHALER DAILY Carotid stenosis, left S/P L CEA (02/18/20) (Prior to CEA patient had 80% LICA stenosis ) Cerebral aneurysm Per records, pt unaware No significant aneurysm noted with head CTA and brain MRI from 01/2020 CKD (chronic kidney disease) stage III COPD (chronic obstructive pulmonary disease) CVA (cerebral vascular accident) CVA 02/11/20- no residual effects, follows with [facility], patient was on plavix until ~1 month after left CEA surgery, now on ASA 81mg Depression with anxiety GERD (gastroesophageal reflux disease) History of Meniere's disease History of prediabetes HGBA1C 6.1% on 01/28/21 Hyperlipidemia Hypertension Osteoarthritis Surgical History H/O carotid endarterectomy Left CEA: 02/18/20: Grade view 1 with head lift, MAC#3, ETT 7.0 at [facility] History of appendectomy History of bilateral tubal ligation History of brain surgery 5 years ago (Meniere's treatment/[facility]) History of cataract surgery R/L History of section x1 History of cholecystectomy History of colonoscopy History of esophagogastroduodenoscopy (EGD) History of tonsillectomy History of tooth extraction History of total hip arthroplasty RT> with repair Family History Mother Diabetes Family history of diabetes mellitus Sister Diabetes Family history of diabetes mellitus Other Heart disease No family history of adverse response to anesthesia Denies family history of Ovarian cancer Prostate cancer Myocardial infarction Breast cancer Colorectal cancer Social History Smoking Status: Current every day smoker Tobacco Type: Cigarettes Age Started Using Tobacco: 17; Cigarettes Per Day: 10-12 per day; Second Hand Exposure: No; Do You Dip or Chew Tobacco: No; Tobacco Cessation Education Requested by Patient: No Hx Alcohol Use: No Hx Substance Use: Yes Last Used Substance Other:: LAST USED (LAST NIGHT BEFORE BED) ADVISED Substance Use Type Other:: marijuana approx once per day Preferred Language: Bulgarian Communication Ability: Effective Visual Impairment: No Limitations Hearing Ability: Normal Fish Conservationist Required: No Beliefs That Will Affect Care: None marital status: Current Living Situation: Spouse Current Living Situation Comment: DOES NOT LIVE WITH current occupational status: retired 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 Physical Exam Examination of right hip, she is in a wheelchair. The incision is completely healed except for a very small aspect in the mid aspect of the incision. There is a little bit of purulent discharge. Is difficult to tell whether it serous or purulent discharge. Some minimal amount. There is no redness or any other signs of infection.. Constitutional WD/WN, vitals as above Eyes PERRL, conjunctivae normal, anicteric sclerae ENMT external ear and nose normal, oropharynx normal Neck trachea midline, no thyromegaly Respiratory normal respiratory effort Cardiovascular RRR, no murmur, no edema Gastrointestinal (Abdomen) normal bowel sounds, soft, nontender, no hepatosplenomegaly Psychiatric A+Ox3, euthymic affect Results & Data Results & Data Laboratory Results . Diagnostic Findings . PG Care Time/CCT Total # of Minutes Spent Total Time Spent with Patient: Total time spent is greater than 50% in coordination of care (as documented) at patient's floor/unit and/or counseling patient: Coding Level of Care Code None Diagnoses Status post revision of total hip replacement Z96.649
[~2021-03-08 10:42] MED LIST changes: -ROPIVACAINE 0.5% HCL/PF 150 MG, BUPIVACAINE 0.75% MPF 20 ML, EPINEPHrine 30MG/30ML (OR ... INSTIL SCH; +TRANEXAMIC ACID 1,000 MG **IV Pre-op IV SCH
--- NOTE | 2021-03-08 11:07 | History & Physical Bridge Note ---
Date of Service March 08, 2021 History & Physical Bridge Note I have examined the patient, reviewed the History & Physical and in the interval since the performance of the History & Physical I have noted the following changes of clinical significance: no changes noted
[2021-03-08] MEDS ORDERED: ePHEDrine sulfate 50 MG/ML AMP IV PRN (12:52)
[2021-03-08] MEDS ORDERED: ONDANSETRON INJ 2 MG/ML 2 ML VIAL IV PRN ×2 (12:52→16:46)
[2021-03-08] MEDS ORDERED: ALBUT/IPRATROP 3MG/0.5MG NEB 3 ML VIAL INH PRN (12:52)
[2021-03-08] MEDS ORDERED: ATROPINE SULFATE 0.1 MG/ML 10ML SYR IV PRN (12:52)
[2021-03-08] MEDS ORDERED: fentaNYL citrate 100 MCG/2 ML VIAL IV PRN (12:52)
[2021-03-08] MEDS ORDERED: ALBUT/IPRATROP 3MG/0.5MG NEB 3 ML VIAL NEB STA (12:54)
[2021-03-08] MEDS ORDERED: PROPOFOL IV EMULSION 10 MG/ML 20 ML VIAL IV ONE (13:23)
[2021-03-08] MEDS ORDERED: LIDOCAINE 2% 2 ML VIAL/AMP(20MG/ML) INFIL ONE (13:23)
[2021-03-08] MEDS ORDERED: fentaNYL citrate 100 MCG/2 ML VIAL ONE (13:23)
[2021-03-08] MEDS ORDERED: ONDANSETRON INJ 2 MG/ML 2 ML VIAL ONE (13:28)
[2021-03-08] MEDS ORDERED: PHENYLEPHRINE 100MCG/ML 5ML SYR ONE (13:56)
[2021-03-08] MEDS ORDERED: PHENYLEPHRINE HCL 10 MG/ML VIAL ONE (14:13)
--- NOTE | 2021-03-08 14:32 | Fluoroscopy Report ---
FL hip RT 1V CLINICAL HISTORY: Right hip incision and drainage. COMPARISON STUDY: Right hip 01/27/2021. FLUOROSCOPY TIME: 7 seconds. FINDINGS: 3 fluoroscopic spot images of the right hip were submitted. There is a right total arthropl asty. The hardware appears intact. IMPRESSION: Fluoroscopy provided for right hip incision and drainage. ACT 112: Negative or not required by law. Electronically signed by: Brandon Duggan M.D. 03/08/2021 2:30 PM
--- NOTE | 2021-03-08 14:55 | Operative Report ---
PG Post Operative Report Pre & Post Diagnosis Operation Date: 03/08/21 13:05 Pre-Op Diagnosis: Superficial surgical site infection of the right hip Post-Op Diagnosis: Superficial surgical site infection of the right hip I identified the patient and participated in the time-out.: Yes Procedure Operation Date: 03/08/21 13:05 Actual Procedures p Right Hip Irrigation and Debridement of superficial surgical site infection (Right) - John Live DO Surgeon John Live DO Computer Training Specialist John Powell PAC Estimated Blood Loss 30 Findings Consistent with Post-Op Diagnosis Specimens Cultures x2 Complications none Disposition Disposition: Recovery Room Indications Radha is a pleasant six 5-year-old female who underwent a revision right hip replacement 5 weeks ago. As she continued to heal her incision looked well except for a very small area of persistent serous drainage. It was not draining a lot but it was persistent for several weeks. We tried to oral antibiotics. There was now a little bit of purulent discharge. After 5 weeks of a draining wound we decided to proceed with open irrigation and debridement of the right hip. Description of Procedure On March 08, 2021 Radha arrived at [facility] for the above procedure. She was seen in the preoperative holding area and the operative extremity was identified and signed. She was taken back to the operating room and laid on the table in supine position. She was put under general anesthesia. The right hip was then prepped and draped in sterile fashion. A timeout was done. The patient and the operative extremity was properly identified. In the distal third of the wound there was a 4 cm area of minor drainage. A knife was used to open this area. Dissection was taken down through the fat layer and there was a small abscess that was released. Cultures were obtained. I inspected the abscess both proximally and distally. We also check to make sure that there was no fistulas or tunnels that went towards the hip joint. I did not see anything that connected with the hip joint. The castro of the abscess were then debrided. Once again I checked for any fistulas or connection to the hip joint. None of that was found. The whole abscess and infection was superficial to the fascia layer. The wound was irrigated with 6 L of normal saline solution by pulse lavage. A single drain was placed. The deep space was closed down with #1 PDS suture. Skin was closed with 3-0 nylon in a mattress fashion. She was then placed in a soft dressing. She was then extubated and transferred to a [facility]. She was taken to the postanesthesia care unit in stable condition. She tolerated the procedure well. John Powell PA-C, was present for the entire procedure. He was critical for patient positioning, prepping, draping, retraction exposure, wound closure and application of sterile dressing. I attest to the content of the Intraoperative Record and any orders documented therein. Any exceptions are noted below.
--- NOTE | 2021-03-08 15:33 | Anesthesiology Progress Note ---
Date of Service March 08, 2021 Anesthesia Post Procedure Vital Signs Vital Signs: Temp Pulse Resp BP Pulse Ox 03/08/21 15:30 36.3 C L 83 17 97/60 L 96 03/08/21 15:20 85 20 111/58 L 97 03/08/21 15:10 84 18 91/56 L 97 03/08/21 15:00 85 17 101/70 100 03/08/21 14:53 36.4 C L 83 14 93/61 L 100 03/08/21 13:05 89 20 98 03/08/21 11:12 37.9 C H 103 H 22 123/70 98 Pain Intensity Right Hip: Pain Intensity: 0 Transfer of Care Handoff Completed per policy Notes Mental Status: alert / awake / arousable Patient Amnestic to Procedure: Yes Nausea / Vomiting: adequately controlled Pain: adequately controlled Airway Patency, RR, SpO2: stable & adequate BP & HR: stable & adequate Hydration State: stable & adequate Anesthetic Complications: no major complications apparent and Pt Satisfied with anesthetic care
[2021-03-08] MEDS ORDERED: HYDROmorphone INJ 0.5 MG/0.5 ML SYR IV PRN (16:46)
[2021-03-08] MEDS ORDERED: ONDANSETRON 4 MG OD TAB PO PRN (16:46)
[2021-03-08] MEDS ORDERED: METOCLOPRAMIDE HCL INJ 5 MG/ML 2 ML VIAL IV PRN (16:46)
[2021-03-08] MEDS ORDERED: MAGNESIUM HYDROXIDE SUSP 30 ML UDC PO PRN (16:46)
[2021-03-08] MEDS ORDERED: NALOXONE HCL 0.4 MG/1 ML VIAL/CARP IV PRN (16:46)
[2021-03-08] MEDS ORDERED: bisacodyL 10 MG SUPP PR PRN (16:46)
[2021-03-08] MEDS ORDERED: ALBUTEROL HFA 8 GM INHALER INH PRN (16:46)
[2021-03-08] MEDS ORDERED: IPRATROPIUM BROMIDE/ALBUTEROL respimat INH INH SCH (17:00)
[2021-03-08] MEDS: SODIUM CHLORIDE 0.9% 1000ML 1,000 ML IV SCH (17:14)
[2021-03-08] MEDS: Ipratropium HFA Inhaler (Combivent Respimat P&T Subs) INH SCH ×2 (17:30→19:15)
[2021-03-08] MEDS: Albuterol HFA 8 GM Inhaler (Combivent Respimat P&T Subs) INH SCH ×2 (17:31→19:15)
[2021-03-08] MEDS: oxyCODONE HCL IR 5 MG TAB (IMMEDIATE RELEASE) PO PRN ×2 (17:52→23:02)
[2021-03-08] MEDS: KETOROLAC TROMETHAMINE 15 MG/ML VIAL IV SCH ×2 (17:54→22:59)
[2021-03-08] MEDS: ASPIRIN 81 MG ECTAB PO SCH (21:24)
[2021-03-08] MEDS: DOCUSATE SODIUM 100 MG CAP PO SCH (21:24)
[2021-03-08] MEDS: SENNA 8.6 MG TAB PO SCH (21:24)
[2021-03-08] MEDS: ceFAZolin 2000MG 2,000 MG/15 ML SYR IV SCH (21:25)
[2021-03-09] MEDS: SODIUM CHLORIDE 0.9% 1000ML 1,000 ML IV SCH (04:41)
[2021-03-09] MEDS: KETOROLAC TROMETHAMINE 15 MG/ML VIAL IV SCH ×4 (05:22→23:12)
[2021-03-09] MEDS: ceFAZolin 2000MG 2,000 MG/15 ML SYR IV SCH ×3 (05:23→22:02)
--- NOTE | 2021-03-09 06:51 | Orthopedic Progress Note ---
Date of Service March 09, 2021 Assessment & Plan (1) Status post hip surgery: Overall she is doing very well. She not having much pain in the right hip. I have her on Ancef 2 g every 8 hours. I will keep her on the IV antibiotics throughout the day today. Must given her some Toradol for pain control. We will keep her in the hospital today waiting for some cultures to come back. I will see her tomorrow morning. I will pull the drain tomorrow and possibly discharge her to home on oral antibiotics. She is to be nonweightbearing on her right leg for now. Layton Garcia was seen and examined at bedside this morning. Overall she is doing well. She is in good spirits. She says her hip already feels much better. She was able to get some sleep last night. She has no complaints.. Review of Systems All systems reviewed & are unremarkable except as noted in HPI & below. Physical Exam On physical examination of the right hip, the leg lengths are equal. The drain is to suction. The incision is clean and dry.. Results & Data Results & Data Laboratory Results . Diagnostic Findings Gram stain from the right hip showed few white blood cells and no organisms seen.. PG Care Time/CCT Total # of Minutes Spent Total Time Spent with Patient: Total time spent is greater than 50% in coordination of care (as documented) at patient's floor/unit and/or counseling patient: Coding Level of Care Code 64681 Post Operative Follow-Up Diagnoses Status post hip surgery Z98.890
[2021-03-09] MEDS: Albuterol HFA 8 GM Inhaler (Combivent Respimat P&T Subs) INH SCH ×4 (07:15→19:32)
[2021-03-09] MEDS: Ipratropium HFA Inhaler (Combivent Respimat P&T Subs) INH SCH ×4 (07:15→19:32)
[2021-03-09] MEDS: NICOTINE 21 MG/24 HR TDSY TD SCH (08:09)
[2021-03-09] MEDS: FLUTICASONE/VILANTEROL 100/25MCG 14 PUFFS/INHALER INH SCH (08:12)
[2021-03-09] MEDS: ASPIRIN 81 MG ECTAB PO SCH ×2 (08:12→20:24)
[2021-03-09] MEDS: PANTOprazole 40 MG TAB PO SCH (08:13)
[2021-03-09] MEDS: ATORVASTATIN 40 MG TAB PO SCH (08:13)
[2021-03-09] MEDS: MULTIVITAMIN TAB PO SCH (08:13)
[2021-03-09] MEDS: DOCUSATE SODIUM 100 MG CAP PO SCH ×2 (08:13→20:23)
[2021-03-09 08:28] LABS: Creatinine Clr Calc Pharmacy 63.8 ml/min; Est GFR (African American) 69.7 ml/min; Est GFR (Non-African American) 60.1 ml/min
[2021-03-09] MEDS ORDERED: MULTIVITAMIN TAB PO SCH (09:00)
--- NOTE | 2021-03-09 09:17 | Anesthesiology Progress Note ---
Date of Service March 09, 2021 Anesthesia Post Procedure Vital Signs Vital Signs: Temp Pulse Pulse Pulse Pulse Resp BP 03/09/21 07:16 85 18 03/09/21 07:11 36.7 C 84 16 03/09/21 05:35 77 18 03/09/21 03:39 36.6 C 64 16 03/09/21 02:46 36.7 C 76 16 111/69 03/08/21 22:49 37.3 C 70 16 03/08/21 19:16 87 16 03/08/21 19:10 37.0 C 70 16 03/08/21 18:15 37 C 72 16 96/58 L 03/08/21 17:31 85 18 03/08/21 17:12 83 16 117/85 03/08/21 16:51 37.1 C 77 16 106/71 03/08/21 16:10 37.3 C 76 18 113/70 03/08/21 16:00 76 20 98/59 L 03/08/21 15:45 82 15 108/57 L 03/08/21 15:30 36.3 C L 83 17 97/60 L 03/08/21 15:20 85 20 111/58 L 03/08/21 15:10 84 18 91/56 L 03/08/21 15:00 85 17 101/70 03/08/21 14:53 36.4 C L 83 14 93/61 L 03/08/21 13:05 89 20 03/08/21 11:12 37.9 C H 103 H 22 123/70 BP Pulse Ox 03/09/21 07:16 95 03/09/21 07:11 102/58 L 93 03/09/21 05:35 95 03/09/21 03:39 95/60 L 98 03/09/21 02:46 98 03/08/21 22:49 106/64 96 03/08/21 19:16 97 03/08/21 19:10 97/60 L 99 03/08/21 18:15 98 03/08/21 17:31 96 03/08/21 17:12 95 03/08/21 16:51 96 03/08/21 16:10 97 03/08/21 16:00 95 03/08/21 15:45 97 03/08/21 15:30 96 03/08/21 15:20 97 03/08/21 15:10 97 03/08/21 15:00 100 03/08/21 14:53 100 03/08/21 13:05 98 03/08/21 11:12 98 Pain Intensity Right Hip: Pain Intensity: 0 Notes Mental Status: alert / awake / arousable and participated in evaluation Patient Amnestic to Procedure: Yes Nausea / Vomiting: adequately controlled Pain: adequately controlled Airway Patency, RR, SpO2: stable & adequate BP & HR: stable & adequate Hydration State: stable & adequate Anesthetic Complications: no major complications apparent
[2021-03-09] MEDS: oxyCODONE HCL IR 5 MG TAB (IMMEDIATE RELEASE) PO PRN (15:47)
[2021-03-09] MEDS: SENNA 8.6 MG TAB PO SCH (20:23)
[2021-03-10] MEDS: oxyCODONE HCL IR 5 MG TAB (IMMEDIATE RELEASE) PO PRN ×2 (03:24→09:21)
[2021-03-10] MEDS: KETOROLAC TROMETHAMINE 15 MG/ML VIAL IV SCH ×2 (05:20→11:39)
[2021-03-10] MEDS: ceFAZolin 2000MG 2,000 MG/15 ML SYR IV SCH (05:20)
[2021-03-10 06:01] LABS: Creatinine Clr Calc Pharmacy 57.9 ml/min; Est GFR (African American) 61.9 ml/min; Est GFR (Non-African American) 53.5 ml/min
--- NOTE | 2021-03-10 06:39 | Orthopedic Progress Note ---
Date of Service March 10, 2021 Assessment & Plan (1) Status post hip surgery: Overall she is doing well. I think she is stable for discharge today on oral Keflex. A third generation cephalosporin should be able to cover gram- negative bacilli. She will do the Keflex 4 times a day for 10 days. I am going to give her some hydrocodone for pain control. I wanted to remain on the aspirin 81 mg twice a day for another 6 weeks. We are going to call [facility] and have them come back to her house starting next week. She can be 50% partial weightbearing when they start to come to her house. I will see her in my office in 2 weeks for suture removal. She is orthopedically stab le for discharge today. Layton Garcia was seen and examined at bedside this morning. Overall she is doing well. She is feeling much better with regards to her hip. She has been getting IV Ancef. She has no complaints.. Review of Systems All systems reviewed & are unremarkable except as noted in HPI & below. Physical Exam On physical examination the right hip, there is no redness or signs of infection. The drain was pulled. The dressing is clean and dry.. Results & Data Results & Data Laboratory Results . Diagnostic Findings Cultures have come back positive for gram negative bacilli. Sensitivities are to follow.. PG Care Time/CCT Total # of Minutes Spent Total Time Spent with Patient: Total time spent is greater than 50% in coordination of care (as documented) at patient's floor/unit and/or counseling patient: Coding Level of Care Code 01905 Post Operative Follow-Up Diagnoses Status post hip surgery Z98.890
--- NOTE | 2021-03-10 06:40 | Discharge Summary ---
Date of Service March 10, 2021 Admission HPI (Per Admitting) Radha is a pleasant six 5-year-old female who underwent a standard anterior hip replacement on December 07, 2019. She walked into my clinic 6 weeks postop with a periprosthetic fracture. I took her immediately to the operating room on January 27 and did a conversion to a longstem prosthesis. She has been nonweightbearing since. There is a small area of her wound that is continued to drain. It is always been purely clear serous drainage. She goes to half of a small pad a day. It does not drain that much but is been consistent. I tried on some oral antibiotics but it has not gone away completely. After discussions in the office, we elected to go to the operating room for an I&D and possible polyexchange of the right hip.. Admission Exam (Per Admitting) Examination of right hip, she is in a wheelchair. The incision is completely healed except for a very small aspect in the mid aspect of the incision. There is a little bit of purulent discharge. Is difficult to tell whether it serous or purulent discharge. Some minimal amount. There is no redness or any other signs of infection.. Principal Diagnosis Same as "Discharge Diagnosis" noted below under Discharge Instructions. Discharge Exam On physical examination the right hip, there is no redness or signs of infection. The drain was pulled. The dressing is clean and dry.. Discharge Data Procedures Performed Operation Date: 03/08/21 13:05 Actual Procedures p Right Hip Irrigation and Debridement (Right) - John Live DO Ordered Studies 03/08/21 13:48 FL hip RT 1V Routine Hospital Course (1) Status post hip surgery: On March 08, 2021 Radha arrived at [facility] and underwent an I&D of a superficial abscess of her right hip wound without complication. She had a general anesthetic. Postoperatively she was started on Ancef for any microbial prophylaxis and transferred to the general orthopedic floors. Her hospital course was uneventful. On postop day #1 her vital signs were stable and her pain was well controlled. We kept her in the hospital to continue the IV Ancef and await initial culture results. I also wanted to leave the drain in place. On postop day #2 she continued to do well. The initial culture results showed gram-negative bacilli. This should have good coverage with a third- generation cephalosporin. She was then started on oral Keflex. The drain was pulled. She was then discharged home. She will have physical therapy started her house next week to progress her weightbearing. We will see her in the office in 2 weeks for suture removal. PG Care Time/CCT Total # of Minutes Spent Total Time Spent with Patient: Total time spent is greater than 50% in coordination of care (as documented) at patient's floor/unit and/or counseling patient: Discharge Plan Discharge Items Patient Disposition: Home - Home Health Services Reason For Visit: Right Hip Infection S/P Right Total Hip Discharge Diagnosis: Irrigation and debridement of a superficial infection of the right hip Activity: As commented below Non-emergency contact: Surgeon Call non-emergency contact if: your wound has increased redness and your wound has increased drainage Follow-up/Referrals: Jose Elias Valdez MD [Primary Care Provider] - Diet: Regular Addtl Attending Provider Instructions: ORTHOPEDIC INSTRUCTIONS Activity Recommendations: Nonweightbearing on the right hip Start physical therapy with energy therapy next week. May be 50% partial weightbearing when you start seeing energy physical therapy next week. Medications: Take Joiner as needed for pain Take aspirin 81 mg twice a day until we are 3 months out from the procedure. Take Keflex 500 mg 4 times a day for 10 days. Dressing Care: Leave the Silverlon dressing in place for 7 days from the day of surgery. At 7 days you may remove the dressing. Sutures can be open to air as long as the incisions are not draining. If the incisions are draining or if the sutures are getting caught on your clothes then please cover the melanie with dry gauze. Change the dressings as necessary to keep the incision as dry as possible Showering: You may shower with the Silverlon dressing in place. After the Silverlon is removed you may shower with the melanie exposed. Do not soak the incision. Let soapy water run over the sutures and pat them dry. Things To Watch For: 1. Drainage from the incision site that occurs more than one week after your surgery. 2. Increased redness at the incision site. 3. Fever above 102 degrees Fahrenheit. 4. Unusual chest pain or shortness of breath. 5. Call [facility] at with any of the above problems Follow-Up Visit: Follow-up with Dr. Live's PA (John Powell) 2 weeks after your day of surgery. He will remove your sutures and answer any questions. If you have any additional questions or concerns, Dr Live is usually in the office at the same time and will be available Please call for an appointment. If you have any questions call Pending Studies at Discharge: No Stand-Alone Forms: My [facility] Medications and DC Order Prescriptions: New hydrocodone-acetaminophen 5-325 mg tablet 1 tab PO Q6H PRN (Reason: pain) Qty: 40 RF: 0 cephalexin 500 mg capsule 500 mg PO Q6H 10 Days Qty: 40 RF: 0 Continued atorvastatin 40 mg tablet 40 mg PO QAM Qty: 30 RF: 5 Combivent Respimat 20-100 mcg/actuation mist 1 puff INH QID Qty: 4 RF: 3 omeprazole 20 mg capsule,delayed release(DR/EC) 20 mg PO QAM Qty: 30 RF: 5 albuterol sulfate 90 mcg/actuation HFA aerosol inhaler 2 inh INHALATION Q6H PRN (Reason: Wheezing) Qty: 18 RF: 5 fluticasone propion-salmeterol [Advair Diskus] 250-50 mcg/dose blister with device 1 inh inhalation BID Qty: 180 RF: 3 ondansetron HCl [Zofran] 4 mg tablet 4 mg PO Q8H PRN (Reason: nausea and vomiting) Qty: 10 RF: 0 multivitamin Tablet 1 tab PO QAM RF: 0 aspirin [Aspirin Low Dose] 81 mg tablet,delayed release (DR/EC) 81 mg PO BID 42 Days Qty: 0 RF: 0 Discontinued oxycodone-acetaminophen [Percocet] 5-325 mg tablet 1 tab PO Q6H PRN (Reason: pain) Qty: 30 RF: 0 oxycodone 5 mg tablet 5 mg PO Q6H PRN (Reason: pain) Qty: 60 RF: 0 Discharge Orders: Discharge Order (Routine); Ordered 03/10/21 Ordered By: John Live Admission Data Admit Date/Time: 03/08/21 15:04 Attending Provider: John Live Admit Provider: John Live Primary Care Provider: Jose Elias Valdez
[2021-03-10] MEDS: Albuterol HFA 8 GM Inhaler (Combivent Respimat P&T Subs) INH SCH ×2 (07:56→11:32)
[2021-03-10] MEDS: Ipratropium HFA Inhaler (Combivent Respimat P&T Subs) INH SCH ×2 (07:58→11:32)
[2021-03-10] MEDS: ASPIRIN 81 MG ECTAB PO SCH (09:08)
[2021-03-10] MEDS: PANTOprazole 40 MG TAB PO SCH (09:09)
[2021-03-10] MEDS: NICOTINE 21 MG/24 HR TDSY TD SCH (09:09)
[2021-03-10] MEDS: MULTIVITAMIN TAB PO SCH (09:09)
[2021-03-10] MEDS: ATORVASTATIN 40 MG TAB PO SCH (09:09)
[2021-03-10] MEDS: DOCUSATE SODIUM 100 MG CAP PO SCH (09:09)
[2021-03-10] MEDS: FLUTICASONE/VILANTEROL 100/25MCG 14 PUFFS/INHALER INH SCH (09:10)
--- NOTE | 2021-03-15 14:25 | Coding Query ---
DEBRIDEMENT DOCUMENTATION To promote full compliance with coding requirements relating to patient care, physician participation is requested in all cases of wool spotter uncertainty. Please assist us with the question(s) below: Further clarification is needed for coding purposes regarding the debridement. Please place an X in the parenthesis (x). If other, please document the finding: Instrument Used: ( ) Scissors ( ) Scalpel ( ) Curette ( ) Other (please specify): Depth of Debridement: ( ) Skin ( ) Skin and Subcutaneous Tissue ( ) Skin, Subcutaneous Tissue and Muscle ( ) Skin, Subcutaneous Tissue, Muscle and Bone ( ) Other (please specify): Please Specify the Size of Debridement in cm2: CM2 Thank you for your assistance, Debora You - [employer] Consultant [employer]
== END 2021-03-10 12:16 | disposition home or self-care (01) ==
LOC: ASU 10:42 → 3E 15:04 → INTOOBSV 15:04
PROC: M.IDHIP (2021-03-08 13:05)

== ENCOUNTER 2021-05-20 10:43 | Inpatient (IN) ==
[2021-05-20] MEDS ORDERED: SODIUM CHLORIDE 0.9% 1000ML 1,000 ML IV SCH (11:43)
[2021-05-20 11:44] LABS: Basophils # (auto) 0.17 K/uL (0-0.2); Basophils % (auto) 1.5 %; Eosinophils # (auto) 0.22 K/uL (0-0.5); Hematocrit (blood only) 23.9 % (37-47); Hemoglobin 7.6 g/dL (12.0-16.0); Immature Granulocytes # (auto) 0.11 K/uL (0.00-0.02); Lymphocytes # (auto) 3.01 K/uL (1.2-3.4); Lymphocytes % (auto) 27.1 %; Mean Corpuscular Hemoglobin 29.6 pg (25-34); Mean Corpuscular Hgb Conc 31.8 g/dL (32-36); Mean Platelet Volume 10.2 fL (7.4-10.4); Monocytes # (auto) 1.51 K/uL (0.11-0.59); Monocytes % (auto) 13.6 %; Neutrophils # (auto) 6.08 K/uL (1.4-6.5); Neutrophils % (auto) 54.8 %; Platelet Count 511 K/uL (130-400); RDW Coefficient of Variation 17.7 % (11.5-14.5); RDW Standard Deviation 60.3 fL (36.4-46.3); Red Blood Count 2.57 M/uL (4.2-5.4)
[2021-05-20 12:04] LABS: Basophilic Stippling 1+; Polychromasia 1+
[2021-05-20 12:10] LABS: Albumin Level 1.7 gm/dl (3.4-5.0); Calcium 8.8 mg/dl (8.5-10.1); Creatinine Clr Calc Pharmacy 16.2 ml/min; Est GFR (Non-African American) 11.2 ml/min; Potassium 5.2 mmol/L (3.5-5.1)
[2021-05-20 12:14] LABS: Albumin Globulin Ratio 0.3 (0.9-2); Bilirubin,Total 0.3 mg/dl (0.2-1); Globulin 5.2 gm/dl (2.5-4.0); Total Protein 6.9 gm/dl (6.4-8.2); Troponin I 0.023 ng/ml (0-0.045)
[2021-05-20] MEDS ORDERED: SODIUM CHLORIDE 0.9% 250 ML IV PRN (12:18)
[2021-05-20 12:51] LABS: INR 1.1 (0.9-1.1); Partial Thromboplastin Ratio 1.1; Partial Thromboplastin Time 29.3 Seconds (21.0-31.0); Prothrombin Time 11.4 Seconds (9.0-12.0)
--- NOTE | 2021-05-20 12:51 | Emergency Department Note ---
History of Present Illness General Chief complaint: Shortness of Breath/Dyspnea Time Seen by Provider: 05/20/21 11:33 History of Present Illness 66-year-old female presents to the ED with a chief complaint of shortness of breath. She states that, " they told me I needed blood". She states that her breathing feels a little worse today than usual. The patient had a recent hip surgery at [facility] for a infection of the right hip. She is currently at [facility]. She had blood work yesterday that showed her hemoglobin was 6.8. Her BUN was 64 and her creatinine was 4.5. Exertion makes her symptoms worse. Home Medications Medication Instructions Recorded Confirmed Type atorvastatin 40 mg tablet 40 mg PO QAM #30 tab 11/30/20 04/28/21 Rx ipratropium 20 mcg-albuterol 100 1 puff INH QID #4 g 11/30/20 04/28/21 Rx mcg/actuation mist for inhalation (Combivent Respimat) omeprazole 20 mg capsule,delayed 20 mg PO QAM #30 cap 11/30/20 04/28/21 Rx release multivitamin 1 tab PO QAM 12/07/20 04/28/21 History albuterol sulfate 90 mcg/actuation 2 inh INHALATION Q6H PRN #18 g 01/25/21 04/28/21 Rx aerosol inhaler Advair Diskus 250 mcg-50 mcg/dose 1 inh INHALATION BID #180 ea NS 02/02/21 04/28/21 Rx powder for inhalation (fluticasone propion-salmeterol) ondansetron HCl 4 mg tablet 4 mg PO Q8H PRN #10 tab 03/07/21 04/28/21 Rx (Zofran) amoxicillin 875 mg-potassium 1 tab PO BID #28 tab 03/10/21 04/28/21 Rx clavulanate 125 mg tablet (Augmentin) aspirin 81 mg tablet,delayed 81 mg PO BID 42 Days #0 tab 03/10/21 04/28/21 Rx release (Aspirin Low Dose) hydrocodone 5 mg-acetaminophen 325 1 tab PO Q6H PRN #40 tab 03/10/21 04/28/21 Rx mg tablet fluconazole 200 mg tablet 200 mg PO DAILY 04/28/21 04/28/21 History midodrine 2.5 mg tablet 2.5 mg PO TID tab 04/28/21 04/28/21 History ondansetron 4 mg disintegrating 4 mg PO Q8H #30 tab 04/28/21 04/28/21 Rx tablet oxycodone 5 mg tablet 5 mg PO Q4H PRN 04/28/21 04/28/21 History Allergies Allergy/AdvReac Type Severity Reaction Status Date / Time No Known Allergies Allergy Verified 03/23/21 08:02 Past Med/Surg History Medical History Asthma PT STATES TAKES RESCUE INHALER DAILY Carotid stenosis, left S/P L CEA (02/18/20) (Prior to CEA patient had 80% LICA stenosis ) Cerebral aneurysm Per records, pt unaware No significant aneurysm noted with head CTA and brain MRI from 01/2020 CKD (chronic kidney disease) stage III COPD (chronic obstructive pulmonary disease) CVA (cerebral vascular accident) CVA 02/11/20- no residual effects, follows with [facility], patient was on plavix until ~1 month after left CEA surgery, now on ASA 81mg Depression with anxiety GERD (gastroesophageal reflux disease) History of Meniere's disease History of prediabetes HGBA1C 6.1% on 01/28/21 Hyperlipidemia Hypertension Osteoarthritis Surgical History H/O carotid endarterectomy Left CEA: 02/18/20: Grade view 1 with head lift, MAC#3, ETT 7.0 at [facility] History of appendectomy History of bilateral tubal ligation History of brain surgery 5 years ago (Meniere's treatment/[facility]) History of cataract surgery R/L History of section x1 History of cholecystectomy History of colonoscopy History of esophagogastroduodenoscopy (EGD) History of tonsillectomy History of tooth extraction History of total hip arthroplasty RT> with repair Family History (Updated 05/20/21 @ 13:38 by Brandon Collins) Mother Diabetes Family history of diabetes mellitus Sister Diabetes Family history of diabetes mellitus Arterial thrombosis Amputation of leg Father Heart disease Lung disease Other No family history of adverse response to anesthesia Denies family history of Ovarian cancer Prostate cancer Myocardial infarction Breast cancer Colorectal cancer Social History (Updated 05/20/21 @ 13:39 by Brandon Gonzalez Smoking Status: Former smoker Tobacco Type: Cigarettes Age Started Using Tobacco: 17; Age Quit Using Tobacco: 65; packs per day: 1; Years Smoked: 55; Second Hand Exposure: No; Hx Alcohol Use: No Hx Substance Use: Yes Last Used Substance: Days (ago) Last Used Substance Other:: LAST USED (LAST NIGHT BEFORE BED) ADVISED Substance Use Type Other:: marijuana approx once per day Preferred Language: Lithuanian Communication Ability: Effective Visual Impairment: No Limitations Hearing Ability: Normal Church Organist Required: No Beliefs That Will Affect Care: None marital status: Current Living Situation: Spouse Current Living Situation Comment: DOES NOT LIVE WITH current occupational status: retired 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 How many Children do You have: 2 How many Children do You have Comment: 1 child from suicide Feels Safe at Home: Yes Childhood Exposure to Second-Hand Smoke: Yes Dental Care, Regularly: No Physical Activity Frequency: Does not Exercise Seatbelt Use: always Sunscreen Use: No Assistive Devices: Walker Review of Systems A total of 10 systems reviewed and were otherwise negative Physical Exam Vital Signs Vital Signs - 24 hr 05/20/21 10:45 05/20/21 11:16 05/20/21 12:27 Temperature 37 C Temperature Source Oral Pulse Rate 98 H 84 Pulse Rate [Left] 84 Respiratory Rate 26 H 16 Respiratory Effort / Characteristics Short of Breath Respiratory Depth Shallow Respiratory Pattern Regular Blood Pressure 133/64 Blood Pressure [Left Arm] 133/64 Blood Pressure Mean 87 Blood Pressure Mean [Left Arm] 87 Blood Pressure Position Lying Pulse Oximetry 99 96 Oxygen Delivery Method Nasal Cannula Nasal Cannula Oxygen Flow Rate 3 2 Sepsis Recent Fever Within 48 Hours No Sepsis New/Unexplained Change in Mental Status N/A Sepsis Action Taken by Nursing No Action Required 05/20/21 13:44 Temperature 36.8 C Temperature Source Oral Pulse Rate 93 H Pulse Rate [Left] Respiratory Rate 24 Respiratory Effort / Characteristics Respiratory Depth Respiratory Pattern Blood Pressure 125/85 Blood Pressure [Left Arm] Blood Pressure Mean 98 Blood Pressure Mean [Left Arm] Blood Pressure Position Pulse Oximetry 97 Oxygen Delivery Method Oxygen Flow Rate Sepsis Recent Fever Within 48 Hours Sepsis New/Unexplained Change in Mental Status Sepsis Action Taken by Nursing CONSTITUTIONAL/VITAL SIGNS: Reviewed / noted above. GENERAL: Non-toxic in appearance. INTEGUMENTARY: Warm, dry, and [place]. HEAD: Normocephalic. EYES: without scleral icterus or trauma. ENT/OROPHARYNX: clear and moist. LYMPHADENOPATHY/NECK: Is supple without lymphadenopathy or meningismus. RESPIRATORY: Clear to auscultation bilaterally. No increased work of breathing. CARDIOVASCULAR: Regular rate and rhythm. GI/ABDOMEN: Soft and nontender. No organomegaly or pulsatile mass. EXTREMITIES: Warm and well perfused. BACK: No CVA tenderness. NEUROLOGICAL: Intact without focal deficits. PSYCHIATRIC: normal affect. MUSCULOSKELETAL: Normally developed with good muscle tone. TRIAGE NURSING DOCUMENTATION REVIEWED. Critical Care Time Critical Care Time: Yes Total Critical Care Time: 30 I have personally spent 30 minutes of critical care time in the direct management of this patient. This includes bedside care, interpretation of diagnostic studies, and testing, discussion with consultants, patient, and family members, and other required patient management activities. This 30 minutes is in excess of all separately billable procedures. Medical Decision Making Medical Records Attestation: I reviewed the patient's medical records. Home Medications Current Medication List: was personally reviewed by me Laboratory Data Attestation: I reviewed the patient's lab results. Result diagrams: 05/20/21 11:25 05/20/21 11:25 Lab Results 05/20/21 05/20/21 05/20/21 Range/Units 11:25 11:25 11:25 WBC 11.10 H (4.8-10.8) K/uL RBC 2.57 L (4.2-5.4) M/uL Hgb 7.6 L (12.0-16.0) g/dL Hct 23.9 L (37-47) % MCV 93.0 (80-100) fL MCH 29.6 (25-34) pg MCHC 31.8 L (32-36) g/dL RDW Std Deviation 60.3 H (36.4-46.3) fL RDW Coeff of Crow 17.7 H (11.5-14.5) % Plt Count 511 H (130-400) K/uL MPV 10.2 (7.4-10.4) fL Immature Gran % (Auto) 1.0 % Neut % (Auto) 54.8 % Lymph % (Auto) 27.1 % [place] % (Auto) 13.6 % Eos % (Auto) 2.0 % Baso % (Auto) 1.5 % Neut # (Auto) 6.08 (1.4-6.5) K/uL Lymph # (Auto) 3.01 (1.2-3.4) K/uL [place] # (Auto) 1.51 H (0.11-0.59) K/uL Eos # (Auto) 0.22 (0-0.5) K/uL Baso # (Auto) 0.17 (0-0.2) K/uL Immature Gran # (Auto) 0.11 H (0.00-0.02) K/uL Polychromasia 1+ Basophilic Stippling 1+ PT Cancelled INR Cancelled APTT Cancelled PTT Ratio Cancelled Sodium 142 (136-145) mmol/L Potassium 5.2 H (3.5-5.1) mmol/L Chloride 113 H (98-107) mmol/L Carbon Dioxide 21 (21-32) mmol/L Anion Gap 8.0 (3-11) BUN 55 H (7-18) mg/dl Creatinine 3.91 H (0.6-1.2) mg/dl Est Cr Clr Drug Dosing 16.2 ml/min Est GFR ( Amer) 13.0 ml/min Est GFR (Non-Af Amer) 11.2 ml/min BUN/Creatinine Ratio 14.0 (10-20) Glucose 82 (70-99) mg/dl Calcium 8.8 (8.5-10.1) mg/dl Total Bilirubin 0.3 (0.2-1) mg/dl AST 30 (15-37) U/L ALT 13 (12-78) U/L Alkaline Phosphatase 84 (45-117) U/L Troponin I 0.023 (0-0.045) ng/ml Total Protein 6.9 (6.4-8.2) gm/dl Albumin 1.7 L (3.4-5.0) gm/dl Globulin 5.2 H (2.5-4.0) gm/dl Albumin/Globulin Ratio 0.3 L (0.9-2) COVID-19 Eval Order Blood Type Antibody Screen Crossmatch 05/20/21 05/20/21 05/20/21 Range/Units 11:46 12:09 13:15 WBC (4.8-10.8) K/uL RBC (4.2-5.4) M/uL Hgb (12.0-16.0) g/dL Hct (37-47) % MCV (80-100) fL MCH (25-34) pg MCHC (32-36) g/dL RDW Std Deviation (36.4-46.3) fL RDW Coeff of Crow (11.5-14.5) % Plt Count (130-400) K/uL MPV (7.4-10.4) fL Immature Gran % (Auto) % Neut % (Auto) % Lymph % (Auto) % [place] % (Auto) % Eos % (Auto) % Baso % (Auto) % Neut # (Auto) (1.4-6.5) K/uL Lymph # (Auto) (1.2-3.4) K/uL [place] # (Auto) (0.11-0.59) K/uL Eos # (Auto) (0-0.5) K/uL Baso # (Auto) (0-0.2) K/uL Immature Gran # (Auto) (0.00-0.02) K/uL Polychromasia Basophilic Stippling PT 11.4 INR 1.1 APTT 29.3 PTT Ratio 1.1 Sodium (136-145) mmol/L Potassium (3.5-5.1) mmol/L Chloride (98-107) mmol/L Carbon Dioxide (21-32) mmol/L Anion Gap (3-11) BUN (7-18) mg/dl Creatinine (0.6-1.2) mg/dl Est Cr Clr Drug Dosing ml/min Est GFR ( Amer) ml/min Est GFR (Non-Af Amer) ml/min BUN/Creatinine Ratio (10-20) Glucose (70-99) mg/dl Calcium (8.5-10.1) mg/dl Total Bilirubin (0.2-1) mg/dl AST (15-37) U/L ALT (12-78) U/L Alkaline Phosphatase (45-117) U/L Troponin I (0-0.045) ng/ml Total Protein (6.4-8.2) gm/dl Albumin (3.4-5.0) gm/dl Globulin (2.5-4.0) gm/dl Albumin/Globulin Ratio (0.9-2) COVID-19 Eval Order Covid19 at [facility] Blood Type A Positive Antibody Screen NEGATIVE Crossmatch See Detail ECG Data Attestation: I personally reviewed and interpreted this ECG as follows: Additional Comments: Twelve-lead EKG: Per my interpretation there is a normal sinus rhythm at a rate of 89. No ST elevation. No ectopy. No PVCs. MDM Narrative Patient presents with some shortness of breath and anemia as well as some acute renal failure. Her hemoglobin today is 7.6. It was 6.8 yesterday. Her potassium is 5.2 today. BUN is 55 and creatinine is 3.9. This is slightly better than 4.5 yesterday. Previous creatinine here was normal. The patient has guaiac negative stools. She was typed and crossed for 1 unit of blood. Transfusion provided. She will require further inpatient evaluation of her symptoms. Impression & Plan Anemia, Acute renal failure Discharge Plan Visit Data Chief Complaint: Shortness of Breath/Dyspnea ED Provider: Scout Soriano Discharge Problem: Anemia, Acute renal failure Patient Disposition: Admitted As Inpatient Forms Stand Alone Forms: My [facility], Virtual Emergency Department, Important Visit Information Prescriptions Prescriptions: No Action atorvastatin 40 mg tablet 40 mg PO QAM Qty: 30 RF: 5 Combivent Respimat 20-100 mcg/actuation mist 1 puff INH QID Qty: 4 RF: 3 omeprazole 20 mg capsule,delayed release(DR/EC) 20 mg PO QAM Qty: 30 RF: 5 albuterol sulfate 90 mcg/actuation HFA aerosol inhaler 2 inh INHALATION Q6H PRN (Reason: Wheezing) Qty: 18 RF: 5 fluticasone propion-salmeterol [Advair Diskus] 250-50 mcg/dose blister with device 1 inh inhalation BID Qty: 180 RF: 3 ondansetron HCl [Zofran] 4 mg tablet 4 mg PO Q8H PRN (Reason: nausea and vomiting) Qty: 10 RF: 0 oxycodone 5 mg tablet 5 mg PO Q4H PRNRF: 0 fluconazole 200 mg tablet 200 mg PO DAILY RF: 0 midodrine 2.5 mg tablet 2.5 mg PO TID RF: 0 ondansetron 4 mg tablet,disintegrating 4 mg PO Q8H Qty: 30 RF: 5 multivitamin Tablet 1 tab PO QAM RF: 0 hydrocodone-acetaminophen 5-325 mg tablet 1 tab PO Q6H PRN (Reason: pain) Qty: 40 RF: 0 aspirin [Aspirin Low Dose] 81 mg tablet,delayed release (DR/EC) 81 mg PO BID 42 Days Qty: 0 RF: 0 amoxicillin-pot clavulanate [Augmentin] 875-125 mg tablet 1 tab PO BID Qty: 28 RF: 0 Referrals Referrals: Jose Elias Valdez MD [Primary Care Provider] -
--- NOTE | 2021-05-20 12:53 | History & Physical Report ---
Date of Service May 20, 2021 Assessment & Plan (1) Shortness of breath: Plan: Differential - volume overload from combination of recent ARF/BEV, acute CHF, hypoalbuminemia (albumin 1.7 today) VS PEs VS asthma (reported history of such) VS severe deconditioning VS anemia VS combo of factors. Plan - * I obtained chest x-ray - appears to show pulmonary edema; bumex 2mg IV x 1 now. Echo ordered for am to check LV function, etc. Suspect she will need additional diuresis. * Dopplers b/l legs - r/o DVT. Unable to obtain CTA chest due to BEV. * bronchodilators * Tx 1 unit PRBCs; again bumex now to avoid additional volume overload. * Could consider V/Q scan to assess probability of PE. * COVID testing negative. (2) Edema: Plan: Check dopplers, r/o DVT. Has had copious IVF over the last 6-8 weeks in the setting of multiple surgeries, septic shock (twice), etc. This, coupled with hypoalbuminemia, likely contributing. Diurese w/ bumex. Check echo. Check TSH in am - r/o hypothyroid state. Needs better nutrition. (3) Anemia: Plan: Tx 1 unit PRBC. Repeat CBC, iron studies, b12, folate 1-2 hours post Transfusion. Suspect, however, that her anemia is likely from anemia of chronic disease. Heme negative stool in ER today. (4) Acute renal failure: Plan: Patient developed ARF/BEV ~05/02/21. At the time of admission to [facility] in mid-April her creatinine was 5-6. Was 4.8 at time of discharge on 05/18/21. Baseline Cr 1. u/a today with granular casts - c/w ATN. Suspect her septic shock, hypotension, etc all played a role in her BEV development in April. Fortunately her Cr is <4 today. Supportive care. Avoid nephrotoxic agents. She has extreme weakness - will place leggett for accurate UOP. Prior CT at [facility] did not show obstruction. BMP in am. (5) Septic arthritis of hip: Plan: RIGHT. s/p multiple surgeries in March & April - [facility]. See HPI. Has finished lengthy course of IV cefepime which was followed by pramod. Abx stop date was today. (Pseudomonas, proteus). Previous cultures also grew oj albicans. Plan - cont once daily diflucan until 09/20/21 per [facility] ID recs. 100% NWB status to RLE. Patient requests a non-[facility] orthopedist group to follow the right hip locally. (6) Status post right hip replacement: Plan: Initial surgery 11/2020. revision 01/2021. explantation of old hardware 03/25/21. additional I & D's for septic hip -- see HPI. (7) Tobacco use disorder: Plan: has effectively quit in the midst of prolonged illness (8) GERD (gastroesophageal reflux disease): Plan: PPI daily (9) Hypertension: Plan: now with midodrine dependent HYPOtension. at risk of adrenal insufficiency given 6+ surgeries since 11/2020. check AM cortisol. cont midodrine in meantime. (10) History of prediabetes: Plan: a1c 6.1% in early January 2021. glucose <100 today. trend. likely can diet control this. (11) COPD (chronic obstructive pulmonary disease): Plan: h/o asthma/COPD. could be adding to dyspnea issues. see #1. (12) Hypotension: Plan: see #9 (13) VRE infection (vancomycin resistant Enterococcus): Plan: VRE UTI at [facility] in late April 2021. treated w/ zosyn. off abx for such. contact precautions. (14) C. difficile enteritis: Plan: question of. patient was sent home from [facility] on 05/18/21 with 9 additional days of QID oral vanco. I can't find mention of cdiff, but her CT scan during that admission showed left-sided colitis. will keep on contact, keep PO vanco going, and should try to obtain c diff testing from [facility] -- if done. she does report having had diarrhea during her most recent stay in [facility]. she also was treated for sigmoid diverticulitis per records. she does not have abd pain today on exam fortunately. (15) Depression with anxiety: Plan: strongly consider starting remeron or similar while here. patient tearful during much of my admission assessment. (16) Hyperkalemia: Plan: 2nd to BEV. if no improvement in K with diuretics then kayexalate 15gm x 1. serial labs. (17) Severe protein-calorie malnutrition: Plan: reported 20+ pounds weight loss of late. albumin <2. nutrition consult. (18) Candidal esophagitis: Plan: dx on 05/03/21 EGD. remains on diflucan which is also being used for oj albicans that grew from right hip in April. (19) Eosinophilic esophagitis: Plan: per the EGD report. no c/o odynophagia/dysphagia today. would try to get path report from [facility] substantiating this diagnosis. (20) DVT prophylaxis: Plan: asa 81mg BID consider heparin 5000 BID in mar of aspirin -- will defer to daytime team dopplers of legs -- r/o DVT Plan: very, very complicated patient requiring complex care coordination total time spent today 120 minutes including reviewing all records from [facility] dating to early March 2021, reviewing [facility] records, bedside visit, labs, etc History of Present Illness Chief Complaint: dyspnea/sob Primary Care Provider: Edwin Valdez MD Ms Tello is a very complicated 66yo female with h/o right hip replacement on 12/07/[address] John Live at [facility]. Despite no trauma the patient developed a periprosthetic femur fracture which required Revision of the Anterior Total Hip Arthroplasty with open reduction and internal fixation. This was performed on 01/27/21 at [facility] by Dr Live. Unfortunately she then developed a superficial abscess of the right hip wound in February 2021 and underwent right Hip Irrigation with Debridement on 03/08/21. This was also performed at [facility]. Cultures grew pseudomonas and proteus. She subsequently had multiple prolonged hospitalizations at [facility] in [place] due to septic right hip. Her first of several [facility] stays was from 03/23 to 03/31. Records indicate she had septic shock 2nd to right prosthetic hip infection. On 03/23 she underwent I & D of the right hip, and on 03/25 she underwent a revision of the right total hip arthroplasty (femur & acetabulum) with open reduction and internal fixation of the greater trochanter fracture and placement of incisional vac. Old hardware was explanted. PICC was placed post- op. She required pressors and was cared for in the ICU during this stay. She was discharged with IV cefepime via PICC line with stop date of 05/05/21 for the antibiotics. Went to rehab following the 03/23 to 03/31 admission at [facility]. Unfortunately required additional hospitalization from 04/15 to 04/24 at [facility] in [place]. Limited records suggest she underwent a repeat I & D of the right hip with wound vac placement on 04/15. Post-op had hypotension and needed pressors once again in the ICU. Cultures from the 04/15 operation grew pseudomonas & oj albicans. Antibiotic plan was changed to IV cefepime until 05/20/21 and dilfucan daily until 09/20/21. On 05/02 she followed up in the outpatient orthopedic clinic in [place]. During that clinic visit she was very weak and lethargic. She was readmitted to [facility] in [place] on 05/02, and stayed there again until 05/18. That stay was due to BEV with creatinine to >5, acute sigmoid diverticulitis, VRE UTI, ?c diff?, and esophagitis. BEV was thought 2nd to ATN from hypotension and/or antibiotics. EGD performed on 05/03 showed candidal esophagitis and possible eosinophilic esophagitis (performed because of patient complaint of chronic nausea, emesis, and abd pain). She was treated with zosyn for much of this stay. When she left [facility] on 05/18 her hemoglobin was 7.2 and her creatinine was 4.8. Upon discharge on 05/18 the antibiotic plan was - * oral vancomycin for 9 additional days (for c diff infection??) * oral once daily fluconazole until 09/20/2021 * cipro until 05/20/21 * no further IV cefepime Upon arrival to [facility] on 05/18/21 she reports feeling short of breath. She doesn't recall having dyspnea while at [facility] during the 05/02 to 05/18 hospitalization. She has had dyspnea at rest but it is much worse with exertion. No cough. Denies fevers. Reports chills, like her "skin is going to come out of her" (?). She has not been vaccinated against COVID-19 but prior COVID tests in [facility] [place] have been negative. Currently denies chest pain, pleuritic chest pain, abd pain, nausea, vomiting, or diarrhea. She does report ongoing anorexia. No obvious BRBPR. She has had poor appetite, depression, weakness, and fatigue. She remains on midodrine for low blood pressure which has been documented on several of the discharge summaries from her multiple stays at [facility]. She gets teary-eyed about her spring/summer and all the complications she has had. She is non-weightbearing status to the E. She is allowed to weight bear on th e LLE, but the leg is so weak that she can't really walk. Never made any progress at [facility] in the last 48 hours. Finally, she states that orthopedics in [place] has told her there is a distinct possibility she may never be able to walk again. Allergies Allergy/AdvReac Type Severity Reaction Status Date / Time No Known Allergies Allergy Verified 03/23/21 08:02 Home Medications Medication Instructions Recorded Confirmed Type ipratropium 20 mcg-albuterol 100 1 puff INH QID #4 g 11/30/20 05/20/21 Rx mcg/actuation mist for inhalation (Combivent Respimat) Advair Diskus 250 mcg-50 mcg/dose 1 inh INHALATION BID #180 ea NS 02/02/21 05/20/21 Rx powder for inhalation (fluticasone propion-salmeterol) fluconazole 200 mg tablet 200 mg PO QAM 04/28/21 05/20/21 History (Diflucan) midodrine 2.5 mg tablet 2.5 mg PO TID tab 04/28/21 05/20/21 History acetaminophen 325 mg tablet 650 mg PO Q4H 05/20/21 05/20/21 History (Tylenol) albuterol sulfate 90 mcg/actuation 2 inh INHALATION DAILY 05/20/21 05/20/21 History aerosol inhaler (ProAir HFA) aspirin 81 mg tablet,delayed 81 mg PO QAM 05/20/21 05/20/21 History release (Aspirin Low Dose) atorvastatin 40 mg tablet (Lipitor) 40 mg PO QDD 05/20/21 05/20/21 History bisacodyl 10 mg rectal suppository 10 mg MO DAILY 05/20/21 05/20/21 History (Dulcolax (bisacodyl)) ciprofloxacin HCl 500 mg tablet 500 mg PO QAM 05/20/21 05/20/21 History (Cipro) docusate sodium 100 mg capsule 100 mg PO BID 05/20/21 05/20/21 History (Colace) famotidine 20 mg tablet (Pepcid) 20 mg PO QAM 05/20/21 05/20/21 History fluticasone furoate 100 1 inh INHALATION QAM 05/20/21 05/20/21 History mcg-vilanterol 25 mcg/dose inhalation powder (Breo Ellipta) heparin (porcine) 5,000 unit/mL 5,000 unit SUBCUT Q8H 05/20/21 05/20/21 History injection syringe magnesium hydroxide 400 mg/5 mL 30 ml PO DAILY 05/20/21 05/20/21 History oral suspension (Milk of Magnesia) ondansetron 4 mg disintegrating 4 mg PO Q6H 05/20/21 05/20/21 History tablet oxycodone 5 mg tablet (Roxicodone) 5 mg PO Q6H 05/20/21 05/20/21 History pantoprazole 40 mg tablet,delayed 40 mg PO DAILYBB 05/20/21 05/20/21 History release (Protonix) polyethylene glycol 3350 17 gram 17 g PO QDL 05/20/21 05/20/21 History oral powder packet (Miralax) sennosides 8.6 mg-docusate sodium 1 tab-cap PO QDL 05/20/21 05/20/21 History 50 mg tablet (Senokot-S) sodium phosphates 19 gram-7 133 ml MO DAILY 05/20/21 05/20/21 History gram/118 mL enema (Fleet Enema) vancomycin 125 mg capsule 125 mg PO Q6H 05/20/21 05/20/21 History (Vancocin) Past Med/Surg History Medical History (Updated 05/21/21 @ 02:45 by Brandon Collins) Asthma PT STATES TAKES RESCUE INHALER DAILY Carotid stenosis, left S/P L CEA (02/18/20) (Prior to CEA patient had 80% LICA stenosis ) Cerebral aneurysm Per records, pt unaware No significant aneurysm noted with head CTA and brain MRI from 01/2020 CKD (chronic kidney disease) stage III COPD (chronic obstructive pulmonary disease) CVA (cerebral vascular accident) CVA 02/11/20- no residual effects, follows with [facility], patient was on plavix until ~1 month after left CEA surgery, now on ASA 81mg Depression with anxiety GERD (gastroesophageal reflux disease) History of Meniere's disease History of prediabetes HGBA1C 6.1% on 01/28/21 History of revision of total replacement of right hip joint 03/25/21 - [facility]; explantation old hardware, wound vac placement. Hyperlipidemia Hypertension Osteoarthritis Surgical History (Updated 05/21/21 @ 02:36 by Brandon Collins) H/O carotid endarterectomy Left CEA: 02/18/20: Grade view 1 with head lift, MAC#3, ETT 7.0 at [facility] History of appendectomy History of bilateral tubal ligation History of brain surgery 5 years ago ([facility]) History of cataract surgery R/L History of section x1 History of cholecystectomy History of colonoscopy History of esophagogastroduodenoscopy (EGD) History of incision and drainage right hip - multiple I/D's, 03/2021-04/2021; [facility]. History of tonsillectomy History of tooth extraction History of total hip arthroplasty RT> with repair Family History (Updated 05/20/21 @ 13:38 by Brandon Collins) Mother Diabetes Family history of diabetes mellitus Sister Diabetes Family history of diabetes mellitus Arterial thrombosis Amputation of leg Father Heart disease Lung disease Other No family history of adverse response to anesthesia Denies family history of Ovarian cancer Prostate cancer Myocardial infarction Breast cancer Colorectal cancer Social History (Updated 05/20/21 @ 13:39 by Brandon Collins) Smoking Status: Current every day smoker Tobacco Type: Cigarettes Age Started Using Tobacco: 17; Age Quit Using Tobacco: 65; packs per day: 1; Years Smoked: 55; Second Hand Exposure: No; Do You Dip or Chew Tobacco: No; Tobacco Cessation Education Requested by Patient: No Hx Alcohol Use: No Hx Substance Use: Yes Last Used Substance: Unknown Last Used Substance Other:: Quit months ago Substance Use Type Other:: marijuana approx once per day Preferred Language: Luxembourgish Communication Ability: Effective Visual Impairment: No Limitations Hearing Ability: Normal Machine Ii Cutter Required: No Beliefs That Will Affect Care: None marital status: Current Living Situation: Rehab Current Living Situation Comment: [facility] (normally with son and his fiance in her appt) current occupational status: retired 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 How many Children do You have: 2 How many Children do You have Comment: 1 child from suicide Other Information That Helps Us Care for You: No Feels Safe at Home: Yes Safety Concerns: Feels Safe At This Time Childhood Exposure to Second-Hand Smoke: Yes Dental Care, Regularly: No Physical Activity Frequency: Does not Exercise Seatbelt Use: always Sunscreen Use: No Assistive Devices: Walker Review of Systems Constitutional: + chills, + fatigue, + weakness, + anorexia and + weight loss (20 pounds last 6 weeks ); no fever Eyes: no worsening vision Ear, Nose, Mouth, Throat: no ear pain, no sore throat and no dysphagia Respiratory: + dyspnea, + dyspnea on exertion and + wheezing; no cough Cardiovascular: + orthopnea; no chest pain Gastrointestinal: no abdominal pain, no nausea, no vomiting, no diarrhea/loose stools and no blood in stools Genitourinary: no dysuria Musculoskeletal: + joint pain (right hip); no back pain Integumentary: no rash Neurologic: + generalized weakness (especially legs ) Psychiatric: + depression (severe) Endocrine: + cold intolerance Hematologic / Lymphatic: + easy bruising Physical Exam Constitutional: + ill appearing and + frail appearing; + not well developed, + not well nourished, no acute distress and no altered mental status Eyes: PERRL, conjunctivae normal, anicteric sclerae ENMT: external ear and nose normal, oropharynx normal Neck: trachea midline, no thyromegaly Respiratory: no respiratory distress Auscultation: + diminished lung sounds (bases), + crackles (bases ) and + wheezes Cardiovascular: Rate/Rhythm: regular rate and regular rhythm Heart Sounds: normal S1 and normal S2; no murmur Vessels: + JVD (mild), posterior tibial pulses present and dorsalis pedis pulses present Extremities: + edema (2-3+ b/l legs ) Gastrointestinal (Abdomen): normal bowel sounds, soft, nontender, no hepatosplenomegaly Musculoskeletal: right hip -- 2 large linear incisions; top-most incision has a small draining wound/ulceration (serous drainage only); no cellulitis; no purulence. Skin: no rashes, warm and dry + pallor Neurologic: deep tendon reflexes 2+ bilaterally and moves all extremities (surprisingly her strength b/l hips is 4-5/5 with flexion; arms 5/5 ) Psychiatric: Orientation: alert and oriented x 3 Mood: + depressed mood Lymphatic: no cervical lymphadenopathy Results & Data Results & Data ([facility]) Vital Signs (Past 12 Hours) Vital Signs Temp Pulse Pulse Resp BP BP Pulse Ox 05/20/21 12:27 84 84 16 133/64 96 05/20/21 10:45 37 C 98 H 26 H 133/64 99 Laboratory Results Laboratory Results - last 24 hr 05/20/21 05/20/21 05/20/21 11:25 11:25 11:25 WBC 11.10 H RBC 2.57 L Hgb 7.6 L Hct 23.9 L MCV 93.0 MCH 29.6 MCHC 31.8 L RDW Std Deviation 60.3 H RDW Coeff of Crow 17.7 H Plt Count 511 H MPV 10.2 Immature Gran % (Auto) 1.0 Neut % (Auto) 54.8 Lymph % (Auto) 27.1 [place] % (Auto) 13.6 Eos % (Auto) 2.0 Baso % (Auto) 1.5 Neut # (Auto) 6.08 Lymph # (Auto) 3.01 [place] # (Auto) 1.51 H Eos # (Auto) 0.22 Baso # (Auto) 0.17 Immature Gran # (Auto) 0.11 H Polychromasia 1+ Basophilic Stippling 1+ PT Cancelled INR Cancelled APTT Cancelled PTT Ratio Cancelled Sodium 142 Potassium 5.2 H Chloride 113 H Carbon Dioxide 21 Anion Gap 8.0 BUN 55 H Creatinine 3.91 H Est Cr Clr Drug Dosing 16.2 Est GFR ( Amer) 13.0 Est GFR (Non-Af Amer) 11.2 BUN/Creatinine Ratio 14.0 Glucose 82 Calcium 8.8 Iron Transferrin Transferrin % Sat Ferritin Total Bilirubin 0.3 AST 30 ALT 13 Alkaline Phosphatase 84 Troponin I 0.023 Total Protein 6.9 Albumin 1.7 L Globulin 5.2 H Albumin/Globulin Ratio 0.3 L Vitamin B12 Folate Urine Color Urine Appearance Urine pH Ur Specific [place] Urine Protein Urine Glucose (UA) Urine Ketones Urine Blood Urine Nitrite Urine Bilirubin Urine Urobilinogen Ur Leukocyte Esterase Urine WBC (Auto) Urine RBC (Auto) U Hyaline Cast (Auto) U Epithel Cells (Auto) Urine Bacteria (Auto) Ur Renal Epithelial Cell Granular Casts Urine Yeast Nasal Screen MRSA (PCR) COVID-19 Eval Order SARS-CoV-2 (PCR) Blood Type Antibody Screen Crossmatch 05/20/21 05/20/21 05/20/21 11:46 12:09 13:15 WBC RBC Hgb Hct MCV MCH MCHC RDW Std Deviation RDW Coeff of Crow Plt Count MPV Immature Gran % (Auto) Neut % (Auto) Lymph % (Auto) [place] % (Auto) Eos % (Auto) Baso % (Auto) Neut # (Auto) Lymph # (Auto) [place] # (Auto) Eos # (Auto) Baso # (Auto) Immature Gran # (Auto) Polychromasia Basophilic Stippling PT 11.4 INR 1.1 APTT 29.3 PTT Ratio 1.1 Sodium Potassium Chloride Carbon Dioxide Anion Gap BUN Creatinine Est Cr Clr Drug Dosing Est GFR ( Amer) Est GFR (Non-Af Amer) BUN/Creatinine Ratio Glucose Calcium Iron Transferrin Transferrin % Sat Ferritin Total Bilirubin AST ALT Alkaline Phosphatase Troponin I Total Protein Albumin Globulin Albumin/Globulin Ratio Vitamin B12 Folate Urine Color Urine Appearance Urine pH Ur Specific [place] Urine Protein Urine Glucose (UA) Urine Ketones Urine Blood Urine Nitrite Urine Bilirubin Urine Urobilinogen Ur Leukocyte Esterase Urine WBC (Auto) Urine RBC (Auto) U Hyaline Cast (Auto) U Epithel Cells (Auto) Urine Bacteria (Auto) Ur Renal Epithelial Cell Granular Casts Urine Yeast Nasal Screen MRSA (PCR) COVID-19 Eval Order Covid19 at [facility] SARS-CoV-2 (PCR) Blood Type A Positive Antibody Screen NEGATIVE Crossmatch See Detail 05/20/21 05/20/21 05/20/21 13:15 17:10 17:10 WBC RBC Hgb Hct MCV MCH MCHC RDW Std Deviation RDW Coeff of Crow Plt Count MPV Immature Gran % (Auto) Neut % (Auto) Lymph % (Auto) [place] % (Auto) Eos % (Auto) Baso % (Auto) Neut # (Auto) Lymph # (Auto) [place] # (Auto) Eos # (Auto) Baso # (Auto) Immature Gran # (Auto) Polychromasia Basophilic Stippling PT INR APTT PTT Ratio Sodium Potassium Chloride Carbon Dioxide Anion Gap BUN Creatinine Est Cr Clr Drug Dosing Est GFR ( Amer) Est GFR (Non-Af Amer) BUN/Creatinine Ratio Glucose Calcium Iron Transferrin Transferrin % Sat Ferritin Total Bilirubin AST ALT Alkaline Phosphatase Troponin I Total Protein Albumin Globulin Albumin/Globulin Ratio Vitamin B12 Folate Urine Color Yellow Urine Appearance Turbid A Urine pH 5.5 Ur Specific [place] 1.010 Urine Protein 1+ H Urine Glucose (UA) Negative Urine Ketones Negative Urine Blood 1+ H Urine Nitrite Negative Urine Bilirubin Negative Urine Urobilinogen Negative Ur Leukocyte Esterase 2+ H Urine WBC (Auto) >30 H Urine RBC (Auto) 0-4 U Hyaline Cast (Auto) 10-30 H U Epithel Cells (Auto) >30 H Urine Bacteria (Auto) Negative Ur Renal Epithelial Cell 0-5 Granular Casts 10-20 H Urine Yeast Not Reportable Nasal Screen MRSA (PCR) Negative COVID-19 Eval Order SARS-CoV-2 (PCR) NEGATIVE Blood Type Antibody Screen Crossmatch 05/20/21 05/20/21 05/20/21 17:57 17:57 17:57 WBC RBC Hgb 8.7 L Hct 27.4 L MCV MCH MCHC RDW Std Deviation RDW Coeff of Crow Plt Count MPV Immature Gran % (Auto) Neut % (Auto) Lymph % (Auto) [place] % (Auto) Eos % (Auto) Baso % (Auto) Neut # (Auto) Lymph # (Auto) [place] # (Auto) Eos # (Auto) Baso # (Auto) Immature Gran # (Auto) Polychromasia Basophilic Stippling PT INR APTT PTT Ratio Sodium 142 Potassium 5.4 H Chloride 114 H Carbon Dioxide 20 L Anion Gap 8.0 BUN 51 H Creatinine 3.71 H Est Cr Clr Drug Dosing 16.6 Est GFR ( Amer) 13.8 Est GFR (Non-Af Amer) 11.9 BUN/Creatinine Ratio 13.8 Glucose 86 Calcium 8.9 Iron 57 Transferrin 153 L Transferrin % Sat 26 Ferritin 278.5 Total Bilirubin AST ALT Alkaline Phosphatase Troponin I Total Protein Albumin Globulin Albumin/Globulin Ratio Vitamin B12 1225 H Folate 13.40 Urine Color Urine Appearance Urine pH Ur Specific [place] Urine Protein Urine Glucose (UA) Urine Ketones Urine Blood Urine Nitrite Urine Bilirubin Urine Urobilinogen Ur Leukocyte Esterase Urine WBC (Auto) Urine RBC (Auto) U Hyaline Cast (Auto) U Epithel Cells (Auto) Urine Bacteria (Auto) Ur Renal Epithelial Cell Granular Casts Urine Yeast Nasal Screen MRSA (PCR) COVID-19 Eval Order SARS-CoV-2 (PCR) Blood Type Antibody Screen Crossmatch Diagnostic Findings Chest X-Ray 05/20/21 11:34 XR chest 1V portable CLINICAL HISTORY: Shortness of breath. COMPARISON STUDY: Chest radiograph January 27, 2021. FINDINGS: Lung volumes are normal. There is no pneumothorax. There may be trace bilateral pleural effusions. Note is made of mild cardiomegaly. There is pulmonary vascular congestion with possible mild pulmonary edema. There is no consolidation. IMPRESSION: 1. Cardiomegaly. Pulmonary vascular congestion with suspected mild pulmonary edema. 2. Probable trace bilateral pleural effusions. ACT 112: Negative or not required by law. Electronically signed by: Marquez Coronel M.D. 05/20/2021 1:53 PM Venous Doppler Study 05/20/21 13:46 ULTRASOUND BILATERAL LOWER EXTREMITY VENOUS CLINICAL HISTORY: Lower extremity edema. COMPARISON STUDY: No priors. TECHNIQUE: Real-time, grayscale, and color Doppler sonography of the deep veins of the right and left lower extremity was performed from the inguinal crease to the calf. Compression and augmentation were utilized. FINDINGS: There is no sonographic evidence of deep venous thrombosis identified in the right or left lower extremity. The common femoral, superficial femoral, and popliteal veins are patent and normally compressible bilaterally. The greater saphenous vein and the profunda femoris vein at the junction with the common femoral vein are clear in both legs. The visualized calf veins are patent bilaterally. IMPRESSION: There is no sonographic evidence of deep venous thrombosis identified in the right or left lower extremity. ACT 112: Negative or not required by law. Electronically signed by: Jp Luna M.D. 05/20/2021 4:15 PM EKG , my reading - NSR, QTc modestly prolonged; relative low voltage; no ST changes Code Status & VTE Plan Code Status DNR/DNI Critical Care Time Prolonged Care Time Prolonged Care Time: Yes Total Prolonged Care Time: 120 PG Care Time/CCT Total # of Minutes Spent Total Time Spent with Patient: Total time spent is greater than 50% in coordination of care (as documented) at patient's floor/unit and/or counseling patient: Prolonged Care Time Prolonged Care Time: Yes Total Prolonged Care Time: 120 120 Coding Level of Care Code 83161 Initial Inpt Care Lvl 3 (25 - SIGNIFICANT, SEPARATELY IDENTIFIABLE ) Diagnoses Anemia D64.9 Anemia type: unspecified type Acute renal failure N17.9 Acute renal failure type: unspecified Septic arthritis of hip M00.9 Tobacco use disorder F17.200 GERD (gastroesophageal reflux disease) K21.9 Status post right hip replacement Z96.641 Hypertension I10 History of prediabetes Z87.898 COPD (chronic obstructive pulmonary disease) J42 COPD type: chronic bronchitis Chronic bronchitis type: unspecified Shortness of breath R06.02 Edema R60.9 Hypotension I95.9 VRE infection (vancomycin resistant Enterococcus) A49.1; Z16.21 C. difficile enteritis A04.72 Depression with anxiety F41.8 Hyperkalemia E87.5 Severe protein-calorie malnutrition E43 Candidal esophagitis B37.81 Eosinophilic esophagitis K20.0 DVT prophylaxis Z29.9 Additional Codes Prolonged Care Time - Prolonged Care Time: Yes ([id number]) Time Spent (min) 120 (1) Acute renal failure Acute renal failure type: unspecified Qualified Code(s): N17.9 - Acute kidney failure, unspecified (2) Anemia Anemia type: unspecified type Qualified Code(s): D64.9 - Anemia, unspecified (3) COPD (chronic obstructive pulmonary disease) COPD type: chronic bronchitis Chronic bronchitis type: unspecified Qualified Code(s): J42 - Unspecified chronic bronchitis
--- NOTE | 2021-05-20 13:54 | XRay Report ---
XR chest 1V portable CLINICAL HISTORY: Shortness of breath. COMPARISON STUDY: Chest radiograph January 27, 2021. FINDINGS: Lung volumes are normal. There is no pneumothorax. There may be trace bilateral pleural eff usions. Note is made of mild cardiomegaly. There is pulmonary vascular congestion with possible mild pulmonary edema. There is no consolidation. IMPRESSION: 1. Cardiomegaly. Pulmonary vascular congestion with suspected mild pulmonary edema. 2. Probable trace bilateral pleural effusions. ACT 112: Negative or not required by law. Electronically signed by: Marquez Coronel M.D. 05/20/2021 1:53 PM
[2021-05-20] MEDS ORDERED: BUMETANIDE 2 MG in SYRINGE 0 ML IV ONE (14:20)
--- NOTE | 2021-05-20 16:17 | Ultrasound Report ---
ULTRASOUND BILATERAL LOWER EXTREMITY VENOUS CLINICAL HISTORY: Lower extremity edema. COMPARISON STUDY: No priors. TECHNIQUE: Real-time, grayscale, and color Doppler sonography of the deep veins of the right and left lower extremity was performed from the inguinal crease to the calf. Compression and augmentation wer e utilized. FINDINGS: There is no sonographic evidence of deep venous thrombosis identified in the right or left lower extremity. The common femoral, superficial femoral, and popliteal veins are patent and normally compressible bilaterally. The greater saphenous vein and the profunda femoris vein at the junction w ith the common femoral vein are clear in both legs. The visualized calf veins are patent bilaterally. IMPRESSION: There is no sonographic evidence of deep venous thrombosis identified in the right or lef t lower extremity. ACT 112: Negative or not required by law. Electronically signed by: Jp Luna M.D. 05/20/2021 4:15 PM
[2021-05-20] MEDS ORDERED: ALBUTEROL HFA 8 GM INHALER INH PRN (16:24)
[2021-05-20] MEDS ORDERED: ONDANSETRON INJ 2 MG/ML 2 ML VIAL IV PRN (16:24)
[2021-05-20] MEDS: FLUTICASONE/VILANTEROL 100/25MCG 14 PUFFS/INHALER INH SCH (16:58)
[2021-05-20] MEDS: MIDODRINE HCL 2.5 MG TAB PO SCH ×2 (16:59→21:08)
[2021-05-20] MEDS ORDERED: IPRATROPIUM BROMIDE/ALBUTEROL respimat INH INH SCH (17:00)
[2021-05-20] MEDS: Albuterol HFA 8 GM Inhaler (Combivent Respimat P&T Subs) INH SCH ×2 (17:12→21:11)
[2021-05-20] MEDS: Ipratropium HFA Inhaler (Combivent Respimat P&T Subs) INH SCH ×2 (17:13→21:11)
[2021-05-20 17:57] LABS: Appearance Urine Turbid (Clear); Bacteria Urine Automated Negative (Negative); Bilirubin Urine Negative (Negative); Blood Urine 1+ (Negative); Color Urine Yellow; Epithelial Cell Urine Auto >30 /lpf (0-5); Glucose Urine UA Negative (Negative); Ketones Urine Negative (Negative); Leukocyte Esterase Urine 2+ (Negative); Nitrite Urine Negative (Negative); Protein Urine 1+ (Negative); Urobilinogen Urine Negative (Negative); WBC Urine Automated >30 /hpf (0-5); pH Urine 5.5 (4.5-7.5)
[2021-05-20 18:29] LABS: Hematocrit (blood only) 27.4 % (37-47); Hemoglobin 8.7 g/dL (12.0-16.0)
[2021-05-20 18:46] LABS: BUN Creatinine Ratio 13.8 (10-20); Calcium 8.9 mg/dl (8.5-10.1); Creatinine Clr Calc Pharmacy 16.6 ml/min; Est GFR (African American) 13.8 ml/min; Est GFR (Non-African American) 11.9 ml/min; Potassium 5.4 mmol/L (3.5-5.1)
[2021-05-20 18:47] LABS: RBC Urine Automated 0-4 /hpf (0-4)
[2021-05-20 18:50] LABS: Renal Epithelial Cells Urine 0-5 /lpf (0-5)
[2021-05-20 18:50] LABS: Ferritin 278.5 ng/ml (8-388)
[2021-05-20] MEDS ORDERED: Albuterol HFA 8 GM Inhaler (Combivent Respimat P&T Subs) INH SCH (19:00)
[2021-05-20] MEDS ORDERED: Ipratropium HFA Inhaler (Combivent Respimat P&T Subs) INH SCH (19:00)
[2021-05-20] MEDS ORDERED: SODIUM POLYSTYRENE SULFONATE 15G/60ML SUSP PO STA (19:54)
[2021-05-20 20:11] LABS: Folate (Folic Acid) 13.4 ng/ml (>5.38)
[2021-05-20] MEDS ORDERED: AMOXICILLIN/CLAVULANATE 875MG HOME PACK PO SCH (21:00)
[2021-05-20] MEDS: ASPIRIN 81 MG ECTAB PO SCH (21:08)
[2021-05-21] MEDS: RASPBERRY SYRUP 5 ML UDP PO SCH ×4 (06:06→23:41)
[2021-05-21] MEDS: VANCOMYCIN HCL 125 MG/2.5ML SOLN PO SCH ×4 (06:06→23:41)
--- NOTE | 2021-05-21 06:58 | Electrocardiogram Report ---
Test Reason : Blood Pressure : / mmHG Vent. Rate : 089 BPM Atrial Rate : 089 BPM P-R Int : 140 ms QRS Dur : 080 ms QT Int : 398 ms P-R-T Axes : 072 053 046 degrees QTc Int : 484 ms Normal sinus rhythm Low voltage QRS Borderline ECG When compared with ECG of 27-JAN-2021 12:40, Premature ventricular complexes are no longer Present Confirmed by Homer Sinclair ([id number]) on 05/21/2021 6:58:36 AM Referred By: [facility] Confirmed By:Homer Sinclair
[2021-05-21] MEDS: Albuterol HFA 8 GM Inhaler (Combivent Respimat P&T Subs) INH SCH ×2 (07:15→11:29)
[2021-05-21] MEDS: Ipratropium HFA Inhaler (Combivent Respimat P&T Subs) INH SCH ×2 (07:15→11:29)
[2021-05-21 07:52] LABS: Hematocrit (blood only) 27.6 % (37-47); Hemoglobin 8.8 g/dL (12.0-16.0); Mean Corpuscular Hemoglobin 29.5 pg (25-34); Mean Corpuscular Hgb Conc 31.9 g/dL (32-36); Mean Corpuscular Volume 92.6 fL (80-100); Mean Platelet Volume 9.9 fL (7.4-10.4); Platelet Count 467 K/uL (130-400); RDW Coefficient of Variation 17.5 % (11.5-14.5); RDW Standard Deviation 59.5 fL (36.4-46.3); Red Blood Count 2.98 M/uL (4.2-5.4); White Blood Count 10.12 K/uL (4.8-10.8)
[2021-05-21 08:21] LABS: BUN Creatinine Ratio 13.8 (10-20); Calcium 8.7 mg/dl (8.5-10.1); Est GFR (African American) 15.3 ml/min; Est GFR (Non-African American) 13.2 ml/min; Magnesium 1.3 mg/dl (1.8-2.4); Potassium 4.7 mmol/L (3.5-5.1)
[2021-05-21 08:31] LABS: Thyroid Stimulating Hormone 3.86 uIu/ml (0.300-4.500)
[2021-05-21] MEDS: PANTOprazole 40 MG TAB PO SCH (10:08)
[2021-05-21] MEDS: ASPIRIN 81 MG ECTAB PO SCH (10:08)
[2021-05-21] MEDS: MULTIVITAMIN TAB PO SCH (10:08)
[2021-05-21] MEDS: FLUCONAZOLE 100 MG TAB PO SCH (10:09)
[2021-05-21] MEDS: FLUTICASONE/VILANTEROL 100/25MCG 14 PUFFS/INHALER INH SCH (10:09)
[2021-05-21] MEDS: ATORVASTATIN 40 MG TAB PO SCH (10:09)
[2021-05-21] MEDS: MIDODRINE HCL 2.5 MG TAB PO SCH ×3 (10:10→20:34)
[2021-05-21] MEDS: HYDROCODONE/ACETAMOPHEN 5/325MG TAB PO PRN ×2 (10:16→20:44)
[2021-05-21] MEDS ORDERED: BUMETANIDE 2 MG in SYRINGE 0 ML IV ONE (12:00)
[2021-05-21] MEDS: MAGNESIUM SULFATE / D5W 1 GM/100 ML BAG IV SCH ×2 (13:04→14:46)
[2021-05-21] MEDS: BUMETANIDE 2 MG in SYRINGE 0 ML IV SCH ×2 (13:05→20:34)
--- NOTE | 2021-05-21 13:23 | XRay Report ---
XR chest 1V portable CLINICAL HISTORY: persistent SOB, wheezing COMPARISON STUDY: May 20, 2021 FINDINGS: No pneumothorax. No pleural effusion. Reticular opacities are again seen within bilateral lower lungs which is unchanged since prior. Cardiomediastinal silhouette is mildly enlarged and stable since prior. Azygos is prominent. Mild pulmonary vascular congestion.. Osseous structures: Degenerative changes of the spine. IMPRESSION: 1. CHF pattern with possible pulmonary edema, not significantly changed since prior. ACT 112: Negative or not required by law. The above report was generated using voice recognition software. It may contain grammatical, syntax o r spelling errors. Electronically signed by: Mellisa Villatoro DO 05/21/2021 1:22 PM
--- NOTE | 2021-05-21 14:12 | XCELERA ---
[id number] \\[id number]
--- NOTE | 2021-05-21 15:01 | Hospitalist Progress Note ---
Date of Service May 21, 2021 Assessment & Plan (1) Shortness of breath: Plan: Differential - volume overload from combination of recent ARF/BEV, acute CHF, hypoalbuminemia (albumin 1.7 today) VS PEs VS asthma (reported history of such) VS severe deconditioning VS anemia VS combo of factors. Persistent SOB this morning. Normal O2 sats on room air. Bilateral wheezes on exam. Plan - * chest x-ray on admission showed pulmonary edema; bumex 2mg IV x 1 dose given. --- chest XR repeated this AM ---> CHF pattern with possible pulmonary edema, not significantly changed since prior. Increased Bumex to 2mg IV BID. * Echo ordered for am to check LV function, etc. ----> Right ventricular systolic pressure is elevated at 40-50mmHg. EF = 55-60% ---> Bumex 2mg IV BID * Dopplers b/l legs - negative for DVT. Unable to obtain CTA chest due to BEV. V/Q scan ordered to r/o PE. * bronchodilators----> will add Duonebs for persistent SOB with wheezing on exam. * Tx 1 unit PRBCs * COVID testing negative. (2) Edema: Plan: Dopplers negative for DVT. Has had copious IVF over the last 6-8 weeks in the setting of multiple surgeries, septic shock (twice), etc. This, coupled with hypoalbuminemia, likely contributing. Diurese w/ bumex 2mg IV BID. ECHO findings consistent with pulmonary hypertension. r/o hypothyroid state - TSH 3.860 Needs better nutrition. Consult nutrition. (3) Anemia: Plan: Tx 1 unit PRBC. H&H stable at 8.8 and 27.6 this AM. Vitamin b12 elevated at 1225. Folate normal at 13.40. Iron normal at 57. Transferrin low at 153. Suspect her anemia is likely from anemia of chronic disease. Heme negative stool in ER. Continue to monitor. (4) Acute renal failure: Plan: Patient developed ARF/BEV ~05/02/21. At the time of admission [place] [facility] [place] mid[place] her creatinine was 5-6. Was 4.8 at time of discharge on 05/18/21. Baseline Cr 1. u/a with granular casts - c/w ATN. Suspect her septic shock, hypotension, etc all played a role in her BEV development in April. Cr improved to 3.42 today. Supportive care. Avoid nephrotoxic agents. She has extreme weakness - leggett placed for accurate UOP. - UC&S pending. Prior CT at [facility] [address] did not show obstruction. Continue to monitor. (5) Septic arthritis of hip: Plan: RIGHT. s/p multiple surgeries in March & April - [facility]. Has finished lengthy course of IV cefepime which was followed by pramod. Abx stop date was yesterday. (Pseudomonas, proteus). Previous cultures also grew oj albicans. Plan - cont once daily diflucan until 09/20/21 per [facility] [address] [facility] ID recs. 100% NWB status to RLE. Patient requests a non-[facility] orthopedist group to follow the right hip locally. (6) Status post right hip replacement: Plan: Initial surgery 11/2020. revision 01/2021. explantation of old hardware 03/25/21. additional I & D's for septic hip -- see above. (7) Tobacco use disorder: Plan: has effectively quit in the midst of prolonged illness (8) GERD (gastroesophageal reflux disease): Plan: PPI daily (9) Hypertension: Plan: Now with midodrine dependent HYPOtension. at risk of adrenal insufficiency given 6+ surgeries since 11/2020. AM cortisol is pending. Cont midodrine in meantime. (10) History of prediabetes: Plan: a1c 6.1% in early January 2021. glucose <100 since admission. trend. likely can diet control this. (11) COPD (chronic obstructive pulmonary disease): Plan: h/o asthma/COPD. could be adding to dyspnea issues. see #1. Will add Duonebs for persistent SOB. (12) Hypotension: Plan: see #9 (13) VRE infection (vancomycin resistant Enterococcus): Plan: VRE UTI at [place] in late April 2021. treated w/ zosyn. off abx for such. contact precautions. (14) C. difficile enteritis: Plan: question of. patient was sent home from [place] on 05/18/21 with 9 additional days of QID oral vanco. I can't find mention of cdiff, but her CT scan during that admission showed left-sided colitis. will keep on contact, keep PO vanco going, and should try to obtain c diff testing from [facility] -- if done. she does report having had diarrhea during her most recent stay in [place]. she also was treated for sigmoid diverticulitis per records. No abdominal pain today, and she reports a formed BM this morning. (15) Depression with anxiety: Plan: Consider starting remeron or similar while here. Patient was tearful during admission assessment. Not tearful this morning. Continue to monitor. (16) Hyperkalemia: Plan: 2nd to BEV. Potassium improved to 4.7 this AM. Continue to monitor. (17) Severe protein-calorie malnutrition: Plan: reported 20+ pounds weight loss of late. albumin <2. nutrition consult. (18) Candidal esophagitis: Plan: dx on 05/03/21 EGD. remains on diflucan which is also being used for oj albicans that grew from right hip in April. (19) Eosinophilic esophagitis: Plan: per the EGD report. no c/o odynophagia/dysphagia. would try to get path report from [facility] [address] substantiating this diagnosis. (20) DVT prophylaxis: Plan: Asa 81mg BID discontinued. Start heparin 5000 BID in mar of aspirin. dopplers of legs negative for DVT. (21) Hypomagnesemia: Plan: Magnesium 1.3 today. Ordered 2gm IV today. - avoid further IVF d/t fluid overload--Bumex 2mg IV BID. Repeat in AM. Plan: Very, very complicated patient requiring complex care coordination on admission. Dispo- PCU Recommend PT/OT eval when medically stable. NWB right leg. Admission and Anticipated Discharge Date Admission Date: May 20, 2021 Supervising Physician Co-Signing Physician Notes Attending Attestation: I did not perform a personal bedside visit, however I reviewed Ms Tello's chart, and care plan d/w MELYSSA Law. I agree w/ the garcia components of her documentation. Pt with ongoing dyspnea. Imaging c/w pulm edema. Echo with dilated IVC c/w volume overload. Cont IV bumex - increase to BID dosing. Hyperkalemia - resolved. BEV - improving. Chronic anemia - improved s/p 1 unit PRBCs. To be complete I agree with plan for VQ scan to assess probability of PE given her dyspnea. Finally, will attempt to find out if patient truly had c diff at [facility]. Brandon Collins MD Subjective Patient continues to c/o SOB this morning. Mild improvement with Albuterol inhaler. Denies chest pain. C/o lower extremity swelling. RN reports she c/o overall pain this morning. Improved after administration of Vicodin as the patient is not c/o pain at this time. Patient reports formed BM this AM. Review of Systems Review of Systems: All systems reviewed & are unremarkable except as noted in Subjective Physical Exam Constitutional: + obese; no acute distress ENMT: Ears: no hearing impairment Neck: normal visual inspection Respiratory: + labored breathing Auscultation: + wheezes (bilateral ) Cardiovascular: Rate/Rhythm: regular rate and regular rhythm Vessels: no JVD Extremities: + edema (+1 pitting ) Gastrointestinal (Abdomen): Inspection/Auscultation: normal bowel sounds Percussion/Palpation: abdomen soft; abdomen nontender Musculoskeletal: Head/Neck/Chest: normocephalic Skin: no rashes, warm and dry Psychiatric: Orientation: alert and oriented x 3 Results & Data Results & Data ([facility]) Vital Signs (Past 12 Hours) Vital Signs Temp Pulse Pulse Resp BP Pulse Ox 05/21/21 13:15 94 H 115/76 05/21/21 11:30 97 H 18 92 05/21/21 11:00 37 C 96 H 19 116/75 93 05/21/21 08:00 96 H 05/21/21 07:45 36.8 C 93 H 18 115/80 95 05/21/21 03:42 37.0 C 99 H 18 130/82 95 PG Care Time/CCT Total # of Minutes Spent Total Time Spent with Patient: Total time spent is greater than 50% in coordination of care (as documented) at patient's floor/unit and/or counseling patient: Coding Level of Care Code 79617 Subseq Hosp Care Lvl 3 Medical Decision Making High Complexity Diagnoses Shortness of breath R06.02 Edema R60.9 Anemia D64.9 Anemia type: unspecified type Acute renal failure N17.9 Acute renal failure type: unspecified Septic arthritis of hip M00.9 Status post right hip replacement Z96.641 Tobacco use disorder F17.200 GERD (gastroesophageal reflux disease) K21.9 Hypertension I10 History of prediabetes Z87.898 COPD (chronic obstructive pulmonary disease) J42 COPD type: chronic bronchitis Chronic bronchitis type: unspecified Hypotension I95.9 VRE infection (vancomycin resistant Enterococcus) A49.1; Z16.21 C. difficile enteritis A04.72 Depression with anxiety F41.8 Hyperkalemia E87.5 Severe protein-calorie malnutrition E43 Candidal esophagitis B37.81 Eosinophilic esophagitis K20.0 DVT prophylaxis Z29.9 Hypomagnesemia E83.42 (1) Acute renal failure Acute renal failure type: unspecified Qualified Code(s): N17.9 - Acute kidney failure, unspecified (2) Anemia Anemia type: unspecified type Qualified Code(s): D64.9 - Anemia, unspecified (3) COPD (chronic obstructive pulmonary disease) COPD type: chronic bronchitis Chronic bronchitis type: unspecified Qualified Code(s): J42 - Unspecified chronic bronchitis
[2021-05-21] MEDS: ALBUT/IPRATROP 3MG/0.5MG NEB 3 ML VIAL NEB SCH ×3 (15:17→22:20)
[2021-05-21] MEDS: HEPARIN SOD 5,000 UNIT/0.5 ML VIAL SQ SCH (20:34)
[2021-05-22] MEDS: ALBUT/IPRATROP 3MG/0.5MG NEB 3 ML VIAL NEB SCH ×6 (03:11→22:08)
[2021-05-22] MEDS: HYDROCODONE/ACETAMOPHEN 5/325MG TAB PO PRN ×2 (04:03→15:39)
[2021-05-22] MEDS: RASPBERRY SYRUP 5 ML UDP PO SCH ×3 (06:06→18:04)
[2021-05-22] MEDS: VANCOMYCIN HCL 125 MG/2.5ML SOLN PO SCH ×3 (06:06→18:04)
[2021-05-22 06:54] LABS: Basophils # (auto) 0.12 K/uL (0-0.2); Basophils % (auto) 1.4 %; Eosinophils # (auto) 0.11 K/uL (0-0.5); Eosinophils % (auto) 1.3 %; Hematocrit (blood only) 25.2 % (37-47); Hemoglobin 8.3 g/dL (12.0-16.0); Immature Granulocytes # (auto) 0.04 K/uL (0.00-0.02); Immature Granulocytes % (auto) 0.5 %; Lymphocytes # (auto) 2.13 K/uL (1.2-3.4); Lymphocytes % (auto) 25.6 %; Mean Corpuscular Hemoglobin 29.7 pg (25-34); Mean Corpuscular Hgb Conc 32.9 g/dL (32-36); Mean Corpuscular Volume 90.3 fL (80-100); Mean Platelet Volume 9.7 fL (7.4-10.4); Monocytes # (auto) 1.43 K/uL (0.11-0.59); Monocytes % (auto) 17.2 %; Neutrophils # (auto) 4.49 K/uL (1.4-6.5); Platelet Count 430 K/uL (130-400); RDW Coefficient of Variation 17.1 % (11.5-14.5); RDW Standard Deviation 56.8 fL (36.4-46.3); Red Blood Count 2.79 M/uL (4.2-5.4); White Blood Count 8.32 K/uL (4.8-10.8)
[2021-05-22 07:33] LABS: Albumin Globulin Ratio 0.3 (0.9-2); Albumin Level 1.6 gm/dl (3.4-5.0); Bilirubin,Total 0.3 mg/dl (0.2-1); Calcium 8.2 mg/dl (8.5-10.1); Creatinine Clr Calc Pharmacy 20.7 ml/min; Est GFR (African American) 18.3 ml/min; Est GFR (Non-African American) 15.8 ml/min; Globulin 4.7 gm/dl (2.5-4.0); Magnesium 2.1 mg/dl (1.8-2.4); Potassium 3.4 mmol/L (3.5-5.1); Total Protein 6.3 gm/dl (6.4-8.2)
[2021-05-22] MEDS: PANTOprazole 40 MG TAB PO SCH (08:53)
[2021-05-22] MEDS: ATORVASTATIN 40 MG TAB PO SCH (08:53)
[2021-05-22] MEDS: FLUTICASONE/VILANTEROL 100/25MCG 14 PUFFS/INHALER INH SCH (08:54)
[2021-05-22] MEDS: FLUCONAZOLE 100 MG TAB PO SCH (08:54)
[2021-05-22] MEDS: HEPARIN SOD 5,000 UNIT/0.5 ML VIAL SQ SCH ×2 (08:54→19:57)
[2021-05-22] MEDS: MULTIVITAMIN TAB PO SCH (08:54)
[2021-05-22] MEDS: MIDODRINE HCL 2.5 MG TAB PO SCH ×3 (08:55→19:57)
[2021-05-22] MEDS: BUMETANIDE 2 MG in SYRINGE 0 ML IV SCH ×2 (09:38→19:57)
[2021-05-22] MEDS: POTASSIUM CHLORIDE CRTAB 20 MEQ TABCR PO SCH (10:47)
--- NOTE | 2021-05-22 13:15 | Hospitalist Progress Note ---
Date of Service May 22, 2021 Assessment & Plan (1) Shortness of breath: Plan: Differential - volume overload from combination of recent ARF/BEV, acute CHF, hypoalbuminemia (albumin 1.7 today) VS PEs VS asthma (reported history of such) VS severe deconditioning VS anemia VS combo of factors. SOB improved with diuresis and Duonebs. Wheezing has resolved. Remains on room air. Plan - * chest x-ray on admission showed pulmonary edema; bumex 2mg IV x 1 dose given. --- chest XR repeated yesterday---> CHF pattern with possible pulmonary edema, not significantly changed since prior. Increased Bumex to 2mg IV BID. * Echo ordered for am to check LV function, etc. ----> Right ventricular systolic pressure is elevated at 40-50mmHg. EF = 55-60% ---> Bumex 2mg IV BID * Dopplers b/l legs - negative for DVT. Unable to obtain CTA chest due to BEV. V/Q scan ordered to r/o PE. This is pending as V/Q scans are not performed on the weekends. PE felt to be less likely at this time though as symptoms are improving. * bronchodilators, continue Duonebs as patient feels treatments are helping with the SOB. * Tx 1 unit PRBCs on admission. * COVID testing negative. ? v-tach run on monitor last evening. Seemed more likely artifact. Troponin checked and was 0.038. EKG ordered. Continue to monitor. (2) Edema: Plan: Dopplers negative for DVT. Has had copious IVF over the last 6-8 weeks in the setting of multiple surgeries, septic shock (twice), etc. This, coupled with hypoalbuminemia, likely contributing. Edema persists on exam today, but is improved. SOB improved. Continue to diurese w/ bumex 2mg IV BID. ECHO findings consistent with pulmonary hypertension. r/o hypothyroid state - TSH 3.860 Needs better nutrition. Consult nutrition. (3) Anemia: Plan: Tx 1 unit PRBC. H&H 8.3 and 25.2 this AM. Vitamin b12 elevated at 1225. Folate normal at 13.40. Iron normal at 57. Transferrin low at 153. Suspect her anemia is likely from anemia of chronic disease. Heme negative stool in ER. Continue to trend H&H. (4) Acute renal failure: Plan: Patient developed ARF/BEV ~05/02/21. At the time of admission to [facility] in mid-April her creatinine was 5-6. Was 4.8 at time of discharge on 05/18/21. Baseline Cr 1. u/a with granular casts - c/w ATN. Suspect her septic shock, hypotension, etc all played a role in her BEV development in April. Cr continues to improve ---> 2.95 today. Supportive care. Avoid nephrotoxic agents. She has extreme weakness - leggett placed for accurate UOP. Prior CT at [facility] did not show obstruction. Continue to monitor. (5) Septic arthritis of hip: Plan: RIGHT. s/p multiple surgeries in March & April - [facility]. Has finished lengthy course of IV cefepime which was followed by pramod. Abx stop date was 2 days ago. (Pseudomonas, proteus). Previous cultures also grew oj albicans. Plan - cont once daily diflucan until 09/20/21 per [facility] ID recs. Will order PT/OT as the patient is improving medically. 100% NWB status to RLE. Patient requests a non-[facility] orthopedist group to follow the right hip locally. (6) Status post right hip replacement: Plan: Initial surgery 11/2020. revision 01/2021. explantation of old hardware 03/25/21. additional I & D's for septic hip -- see above. (7) Tobacco use disorder: Plan: has effectively quit in the midst of prolonged illness (8) GERD (gastroesophageal reflux disease): Plan: PPI daily (9) Hypertension: Plan: Now with midodrine dependent HYPOtension. at risk of adrenal insufficiency given 6+ surgeries since 11/2020. AM cortisol is pending. Cont midodrine in meantime. BP has been stable. (10) History of prediabetes: Plan: a1c 6.1% in early January 2021. glucose <100 since admission. trend. likely can diet control this. (11) COPD (chronic obstructive pulmonary disease): Plan: h/o asthma/COPD. could be adding to dyspnea issues. see #1. SOB improving with Duonebs and diuresis. (12) Hypotension: Plan: see #9 (13) VRE infection (vancomycin resistant Enterococcus): Plan: VRE UTI at [place] in late April 2021. treated w/ zosyn. off abx for such. contact precautions. UC&S pending ---- preliminarily growing gram positive cocci----hesitant for further abx as she has recently finished a lengthy course recently for her right and consequently developed c-diff and candidal esophagitis. (14) C. difficile enteritis: Plan: + sample 05/17 at [facility]. Continue Vancomycin 125mg daily. Patient denies any BM today, had formed BM yesterday. (15) Depression with anxiety: Plan: Consider starting remeron or similar while here. Patient was tearful during admission assessment. Mood seems to be improved today. Continue to monitor. (16) Hyperkalemia: Plan: 2nd to BEV. Now with hypokalemia today at 3.4. Potassium chloride 20meq daily initiated. Repeat in AM. (17) Severe protein-calorie malnutrition: Plan: reported 20+ pounds weight loss of late. albumin <2. nutrition consult. (18) Candidal esophagitis: Plan: dx on 05/03/21 EGD. remains on diflucan which is also being used for oj albicans that grew from right hip in April. (19) Eosinophilic esophagitis: Plan: per the EGD report. no c/o odynophagia/dysphagia. would try to get path report from [facility] substantiating this diagnosis. (20) DVT prophylaxis: Plan: Asa 81mg BID discontinued. Heparin 5000 BID started yesterday in mar of aspirin. dopplers of legs negative for DVT. (21) Hypomagnesemia: Plan: Magnesium 1.3 yesterday. Repleted, and improved to 2.1 this morning. Repeat in AM. (22) UTI (urinary tract infection): Plan: UC&S preliminarily growing gram positive cocci. Would await sensitivities to treat. Caution with abx use d/t c-diff and candidal esophagitis. Urine is clear, yellow in leggett bag. Patient is asymptomatic. Plan: Dispo- Continue PCU Admission and Anticipated Discharge Date Admission Date: May 20, 2021 Subjective Patient reports she is feeling better this morning. SOB has improved. Feels the Duonebs are helping with the SOB. Denies any BM this morning. Review of Systems Review of Systems: All systems reviewed & are unremarkable except as noted in Subjective Physical Exam Constitutional: + obese; no acute distress Eyes: + anicteric sclerae ENMT: Ears: no hearing impairment Neck: trachea midline, no thyromegaly Respiratory: normal respiratory effort, lungs clear to auscultation Cardiovascular: Rate/Rhythm: + irregularly irregular Vessels: no JVD Extremities: + edema (+1 pitting BLE ) Gastrointestinal (Abdomen): Inspection/Auscultation: normal bowel sounds Percussion/Palpation: abdomen soft; abdomen nontender Skin: no rashes, warm and dry Psychiatric: A+Ox3, euthymic affect Lymphatic: no cervical or axillary lymphadenopathy Results & Data Results & Data ([facility]) Vital Signs (Past 12 Hours) Vital Signs Temp Pulse Pulse Resp BP Pulse Ox 05/22/21 12:12 36.7 C 92 H 19 111/72 91 05/22/21 10:55 89 17 93 05/22/21 08:00 84 05/22/21 07:20 37.2 C 84 19 131/76 93 05/22/21 07:18 89 18 93 05/22/21 03:55 36.7 C 101 H 19 127/81 92 05/22/21 03:12 47 L 16 94 PG Care Time/CCT Total # of Minutes Spent Total Time Spent with Patient: Total time spent is greater than 50% in coordination of care (as documented) at patient's floor/unit and/or counseling patient: Coding Level of Care Code 36942 Subseq Hosp Care Lvl 3 History Detailed Exam Detailed Medical Decision Making Moderate Complexity Diagnoses Shortness of breath R06.02 Edema R60.9 Anemia D64.9 Anemia type: unspecified type Acute renal failure N17.9 Acute renal failure type: unspecified Septic arthritis of hip M00.9 Status post right hip replacement Z96.641 Tobacco use disorder F17.200 GERD (gastroesophageal reflux disease) K21.9 Hypertension I10 History of prediabetes Z87.898 COPD (chronic obstructive pulmonary disease) J42 COPD type: chronic bronchitis Chronic bronchitis type: unspecified Hypotension I95.9 VRE infection (vancomycin resistant Enterococcus) A49.1; Z16.21 C. difficile enteritis A04.72 Depression with anxiety F41.8 Hyperkalemia E87.5 Severe protein-calorie malnutrition E43 Candidal esophagitis B37.81 Eosinophilic esophagitis K20.0 DVT prophylaxis Z29.9 Hypomagnesemia E83.42 UTI (urinary tract infection) N39.0 (1) Acute renal failure Acute renal failure type: unspecified Qualified Code(s): N17.9 - Acute kidney failure, unspecified (2) Anemia Anemia type: unspecified type Qualified Code(s): D64.9 - Anemia, unspecified (3) COPD (chronic obstructive pulmonary disease) COPD type: chronic bronchitis Chronic bronchitis type: unspecified Qualified Code(s): J42 - Unspecified chronic bronchitis
[2021-05-22] MEDS ORDERED: ACETAMINOPHEN 325 MG TAB PO PRN (15:56)
[2021-05-22] MEDS: oxyCODONE HCL SOLN 5 MG/5 ML UDC PO PRN (19:56)
[2021-05-23] MEDS: VANCOMYCIN HCL 125 MG/2.5ML SOLN PO SCH ×5 (00:18→23:42)
[2021-05-23] MEDS: RASPBERRY SYRUP 5 ML UDP PO SCH ×5 (00:18→23:43)
[2021-05-23] MEDS: ALBUT/IPRATROP 3MG/0.5MG NEB 3 ML VIAL NEB SCH ×2 (03:19→07:24)
[2021-05-23] MEDS: oxyCODONE HCL SOLN 5 MG/5 ML UDC PO PRN ×2 (04:42→20:39)
[2021-05-23 07:44] LABS: Basophils # (auto) 0.12 K/uL (0-0.2); Basophils % (auto) 1.6 %; Eosinophils # (auto) 0.26 K/uL (0-0.5); Eosinophils % (auto) 3.5 %; Hematocrit (blood only) 27.9 % (37-47); Hemoglobin 8.9 g/dL (12.0-16.0); Immature Granulocytes # (auto) 0.03 K/uL (0.00-0.02); Immature Granulocytes % (auto) 0.4 %; Lymphocytes % (auto) 30.6 %; Mean Corpuscular Hemoglobin 29.2 pg (25-34); Mean Corpuscular Hgb Conc 31.9 g/dL (32-36); Mean Corpuscular Volume 91.5 fL (80-100); Mean Platelet Volume 9.9 fL (7.4-10.4); Monocytes # (auto) 1.43 K/uL (0.11-0.59); Neutrophils # (auto) 3.38 K/uL (1.4-6.5); Neutrophils % (auto) 44.9 %; Platelet Count 469 K/uL (130-400); RDW Coefficient of Variation 16.9 % (11.5-14.5); RDW Standard Deviation 56.3 fL (36.4-46.3); Red Blood Count 3.05 M/uL (4.2-5.4); White Blood Count 7.52 K/uL (4.8-10.8)
[2021-05-23] MEDS: HEPARIN SOD 5,000 UNIT/0.5 ML VIAL SQ SCH (07:50)
[2021-05-23] MEDS: MIDODRINE HCL 2.5 MG TAB PO SCH ×3 (07:51→22:00)
[2021-05-23] MEDS: FLUTICASONE/VILANTEROL 100/25MCG 14 PUFFS/INHALER INH SCH (07:51)
[2021-05-23] MEDS: PANTOprazole 40 MG TAB PO SCH (07:52)
[2021-05-23] MEDS: ATORVASTATIN 40 MG TAB PO SCH (07:52)
[2021-05-23] MEDS: MULTIVITAMIN TAB PO SCH (07:53)
[2021-05-23] MEDS: FLUCONAZOLE 100 MG TAB PO SCH (07:53)
[2021-05-23] MEDS: POTASSIUM CHLORIDE CRTAB 20 MEQ TABCR PO SCH ×2 (07:54→20:39)
[2021-05-23 08:03] LABS: Albumin Level 1.6 gm/dl (3.4-5.0); BUN Creatinine Ratio 12.7 (10-20); Calcium 8.7 mg/dl (8.5-10.1); Creatinine Clr Calc Pharmacy 24.4 ml/min; Est GFR (African American) 23.1 ml/min; Est GFR (Non-African American) 19.9 ml/min; Magnesium 1.2 mg/dl (1.8-2.4); Potassium 3.4 mmol/L (3.5-5.1)
[2021-05-23 08:05] LABS: Albumin Globulin Ratio 0.3 (0.9-2); Bilirubin,Total 0.3 mg/dl (0.2-1); Globulin 5.3 gm/dl (2.5-4.0); Total Protein 6.9 gm/dl (6.4-8.2)
[2021-05-23] MEDS ORDERED: ALBUT/IPRATROP 3MG/0.5MG NEB 3 ML VIAL NEB PRN (08:16)
[2021-05-23] MEDS ORDERED: POTASSIUM CHLORIDE CRTAB 20 MEQ TABCR PO STA (09:05)
[2021-05-23] MEDS: BUMETANIDE 2 MG in SYRINGE 0 ML IV SCH ×3 (09:14→20:39)
--- NOTE | 2021-05-23 11:14 | Nuclear Medicine Report ---
NUCLEAR PULMONARY PERFUSION SCAN CLINICAL HISTORY: Dyspnea and wheezing. COMPARISON STUDY: Chest x-ray dated 05/21/2021. Chest CT dated 01/05/2017. TECHNIQUE: Nuclear pulmonary perfusion scan is performed following the IV administration of 5.7 mCi o f technetium 99m MAA. Images were acquired in the anterior, posterior, and oblique projections. FINDINGS: A chest x-ray performed 05/21/2021 shows top normal cardiac silhouette. There is no airspace consolidat ion or pleural effusion There is a large segmental perfusion defect in the right lower lung. Additional smaller perfusion def ects identified within both lungs. IMPRESSION: Findings are considered high probability for pulmonary embolus. ACT 112: Negative or not required by law. Electronically signed by: Jp Luna M.D. 05/23/2021 11:13 AM
[2021-05-23] MEDS: MAGNESIUM SULFATE / D5W 1 GM/100 ML BAG IV SCH ×4 (11:55→19:02)
[2021-05-23] MEDS ORDERED: Heparin IV Adult Wt-Based Standard *NO* Bolus Protocol ONE (14:20)
[2021-05-23] MEDS: HEPARIN SODIUM/DEXTROSE 25,000 UNITS/500 ML BAG IV SCH (16:31)
--- NOTE | 2021-05-23 18:17 | Electrocardiogram Report ---
Test Reason : Blood Pressure : / mmHG Vent. Rate : 093 BPM Atrial Rate : 087 BPM P-R Int : 132 ms QRS Dur : 084 ms QT Int : 368 ms P-R-T Axes : 047 049 045 degrees QTc Int : 457 ms Sinus rhythm with PACs, some conducted aberrantly Nonspecific ST abnormality Abnormal ECG When compared with ECG of 22-MAY-2021 16:23, QT has shortened Confirmed by Edwin Miranda ([id number]) on 05/23/2021 6:16:48 PM Referred By: [facility] Confirmed By:Mickey Miranda
--- NOTE | 2021-05-23 18:28 | Hospitalist Progress Note ---
Date of Service May 23, 2021 Assessment & Plan (1) Acute diastolic CHF (congestive heart failure): Plan: much improved. significant UOP with weight loss. cont bumex 2mg IV BID. recent echo reviewed - preserved EF. (2) Shortness of breath: Plan: Likely combination of acute diastolic CHF with PEs. Treating both. symptoms improved. (3) Pulmonary emboli: Plan: high prob on VQ scan today. start heparin drip, standard dosing. recent dopplers neg. these PEs are provoked - numerous surgeries over the last 6 months, immobility, etc. once Cr gets closer to baseline consider DOAC. (4) Edema: Plan: 2nd to severe hypoalbuminemia and #1. improve her nutrition. cont diuresis. (5) Anemia: Plan: Tx 1 unit PRBC hospital day #1. heme neg stool. H/H stable since. Vitamin b12 elevated at 1225. Folate normal at 13.40. Iron normal at 57. Transferrin low at 153. Suspect her anemia is likely from anemia of chronic disease. Hb in am for stability purposes. (6) Acute renal failure: Plan: Patient developed ARF/BEV ~05/02/21. At the time of admission to [facility] in mid-April her creatinine was 5-6. Was 4.8 at time of discharge on 05/18/21. Baseline Cr 1. u/a with granular casts - c/w ATN. Suspect her septic shock, hypotension, etc all played a role in her BEV development in April. Cr improved to <3 today c/w diuretic phase of ATN. Supportive care. Avoid nephrotoxic agents. Continue to monitor with daily BMP. (7) Septic arthritis of hip: Plan: RIGHT. s/p multiple surgeries in March & April - [facility]. Has finished lengthy course of IV cefepime which was followed by pramod. Abx stop date was 05/20/21. (Pseudomonas, proteus). Previous cultures also grew oj albicans. Plan - cont once daily diflucan until 09/20/21 per [facility] ID recs. 100% NWB status to RLE. Patient requests a non-[facility] orthopedist group to follow the right hip locally. (8) Status post right hip replacement: Plan: Initial surgery 11/2020. revision 01/2021. explantation of old hardware 6/11/21. additional I & D's for septic hip -- see above. (9) Tobacco use disorder: Plan: has effectively quit in the midst of prolonged illness (10) GERD (gastroesophageal reflux disease): Plan: PPI daily (11) Hypertension: Plan: Now with midodrine dependent HYPOtension. at risk of adrenal insufficiency given 6+ surgeries since 11/2020. cortisol checked - 18, thus no adrenal insufficiency. cont midodrine in meantime and wean as tolerated. (12) History of prediabetes: Plan: a1c 6.1% in early January 2021. glucose <100 since admission. trend. (13) COPD (chronic obstructive pulmonary disease): Plan: h/o asthma/COPD. could be adding to dyspnea issues. see #1. wheezing now resolved. (14) Hypotension: Plan: see above (15) VRE infection (vancomycin resistant Enterococcus): Plan: VRE UTI at [place] in late April 2021. treated w/ zosyn. off abx for such. contact precautions. urine cx now growing GPC again - follow off abx for now. (16) C. difficile enteritis: Plan: received documentation from [place] she was indeed + for c. diff. cont vanco qid. (17) Depression with anxiety: Plan: consider SSRI or remeron (18) Hyperkalemia: Plan: 2nd to BEV. resolved (19) Severe protein-calorie malnutrition: Plan: reported 20+ pounds weight loss of late. albumin <2. nutrition consult. (20) Candidal esophagitis: Plan: dx on 05/03/21 EGD. remains on diflucan which is also being used for oj albicans that grew from right hip in April. (21) Eosinophilic esophagitis: Plan: path report obtained from recent EGD w/ biopsies path report from [facility] for this entity (22) Hypomagnesemia: Plan: 2nd diuresis replace IV mag and PO mag repeat mag in am replace low k (23) DVT prophylaxis: Plan: stop heparin SC IV heparin for PEs dopplers of legs negative for DVT. Plan: updated EXTENSIVELY by phone today (20 min phone call) he would like for her to return to [facility] at d/c I agred w/ rehab Admission and Anticipated Discharge Date Admission Date: May 20, 2021 Subjective patient feeling "much better" than when she got admitted. dyspnea much improved. wheezing resolved. no cough. appetite still fair-poor. no right hip pain. no chest pain. no abd pain. no diarrhea. tele stable overnight although did have 12-beat VT run (no symptoms). Review of Systems Constitutional: + fatigue and + anorexia; no fever and no chills Respiratory: no cough and no dyspnea Cardiovascular: + edema (but improving ); no chest pain Gastrointestinal: no abdominal pain, no nausea, no vomiting and no diarrhea/loose stools Physical Exam Physical Exam: gen - NAD, looks much better than previous visit mouth - MM dry, no thrush neck - mild JVD present heart - RRR, s1 s2 lungs - mild rales bases, no wheezing, no distress abd - soft NT ND BS+ ext - edema much improved, now about 1+ b/l; pulses 2+ b/l skin - mild pallor psych - mood improved, not as restricted; a/o x 3 Results & Data Results & Data ([facility]) Vital Signs (Past 12 Hours) Vital Signs Temp Pulse Resp BP BP Pulse Ox 05/23/21 16:27 37.3 C 81 18 100/60 93 05/23/21 11:02 36.6 C 91 H 19 117/73 94 05/23/21 07:56 36.7 C 101 H 20 123/79 94 05/23/21 07:24 91 H 18 96 Laboratory Results Laboratory Results - last 24 hr 05/21/21 05/21/21 05/23/21 07:24 07:24 07:26 WBC 7.52 RBC 3.05 L Hgb 8.9 L Hct 27.9 L MCV 91.5 MCH 29.2 MCHC 31.9 L RDW Std Deviation 56.3 H RDW Coeff of Crow 16.9 H Plt Count 469 H MPV 9.9 Immature Gran % (Auto) 0.4 Neut % (Auto) 44.9 Lymph % (Auto) 30.6 Towner % (Auto) 19.0 Eos % (Auto) 3.5 Baso % (Auto) 1.6 Neut # (Auto) 3.38 Lymph # (Auto) 2.30 Towner # (Auto) 1.43 H Eos # (Auto) 0.26 Baso # (Auto) 0.12 Immature Gran # (Auto) 0.03 H Sodium Potassium Chloride Carbon Dioxide Anion Gap BUN Creatinine Est Cr Clr Drug Dosing Est GFR ( Amer) Est GFR (Non-Af Amer) BUN/Creatinine Ratio Glucose Calcium Magnesium Total Bilirubin AST ALT Alkaline Phosphatase Total Protein Albumin Globulin Albumin/Globulin Ratio Cortisol AM Sample 18.57 Hepatitis C Ab Screen Neg 05/23/21 07:26 WBC RBC Hgb Hct MCV MCH MCHC RDW Std Deviation RDW Coeff of Crow Plt Count MPV Immature Gran % (Auto) Neut % (Auto) Lymph % (Auto) Towner % (Auto) Eos % (Auto) Baso % (Auto) Neut # (Auto) Lymph # (Auto) Towner # (Auto) Eos # (Auto) Baso # (Auto) Immature Gran # (Auto) Sodium 144 Potassium 3.4 L Chloride 110 H Carbon Dioxide 25 Anion Gap 9.0 BUN 31 H Creatinine 2.43 H D Est Cr Clr Drug Dosing 24.4 Est GFR ( Amer) 23.1 Est GFR (Non-Af Amer) 19.9 BUN/Creatinine Ratio 12.7 Glucose 96 Calcium 8.7 Magnesium 1.2 L Total Bilirubin 0.3 AST 47 H ALT 13 Alkaline Phosphatase 87 Total Protein 6.9 Albumin 1.6 L Globulin 5.3 H Albumin/Globulin Ratio 0.3 L Cortisol AM Sample Hepatitis C Ab Screen Diagnostic Findings Pulmonary Perfusion Imaging 05/23/21 10:15 NUCLEAR PULMONARY PERFUSION SCAN CLINICAL HISTORY: Dyspnea and wheezing. COMPARISON STUDY: Chest x-ray dated 05/21/2021. Chest CT dated 01/05/2017. TECHNIQUE: Nuclear pulmonary perfusion scan is performed following the IV administration of 5.7 mCi of technetium 99m MAA. Images were acquired in the anterior, posterior, and oblique projections. FINDINGS: A chest x-ray performed 05/21/2021 shows top normal cardiac silhouette. There is no airspace consolidation or pleural effusion There is a large segmental perfusion defect in the right lower lung. Additional smaller perfusion defects identified within both lungs. IMPRESSION: Findings are considered high probability for pulmonary embolus. ACT 112: Negative or not required by law. Electronically signed by: Jp Luna M.D. 05/23/2021 11:13 AM PG Care Time/CCT Total # of Minutes Spent Total Time Spent with Patient: Total time spent is greater than 50% in coordination of care (as documented) at patient's floor/unit and/or counseling patient: Coding Level of Care Code 64160 Subseq Hosp Care Lvl 3 Diagnoses Shortness of breath R06.02 Edema R60.9 Anemia D64.9 Anemia type: unspecified type Acute renal failure N17.9 Acute renal failure type: unspecified Septic arthritis of hip M00.9 Status post right hip replacement Z96.641 Tobacco use disorder F17.200 GERD (gastroesophageal reflux disease) K21.9 Hypertension I10 History of prediabetes Z87.898 COPD (chronic obstructive pulmonary disease) J42 COPD type: chronic bronchitis Chronic bronchitis type: unspecified Hypotension I95.9 VRE infection (vancomycin resistant Enterococcus) A49.1; Z16.21 C. difficile enteritis A04.72 Depression with anxiety F41.8 Hyperkalemia E87.5 Severe protein-calorie malnutrition E43 Candidal esophagitis B37.81 Eosinophilic esophagitis K20.0 DVT prophylaxis Z29.9 Hypomagnesemia E83.42 Pulmonary emboli I26.99 Acute diastolic CHF (congestive heart failure) I50.31 (1) Acute renal failure Acute renal failure type: unspecified Qualified Code(s): N17.9 - Acute kidney failure, unspecified (2) Anemia Anemia type: unspecified type Qualified Code(s): D64.9 - Anemia, unspecified (3) COPD (chronic obstructive pulmonary disease) COPD type: chronic bronchitis Chronic bronchitis type: unspecified Qualified Code(s): J42 - Unspecified chronic bronchitis
[2021-05-23] MEDS: MAGNESIUM OXIDE 400 MG TAB PO SCH (22:00)
[2021-05-23 22:59] LABS: Partial Thromboplastin Ratio 2.2
[2021-05-24] MEDS: VANCOMYCIN HCL 125 MG/2.5ML SOLN PO SCH ×3 (05:55→17:35)
[2021-05-24] MEDS: RASPBERRY SYRUP 5 ML UDP PO SCH ×3 (05:55→17:34)
[2021-05-24 06:22] LABS: Partial Thromboplastin Ratio 2.5
[2021-05-24 06:29] LABS: BUN Creatinine Ratio 10.6 (10-20); Calcium 8.4 mg/dl (8.5-10.1); Creatinine Clr Calc Pharmacy 30.8 ml/min; Est GFR (African American) 31.1 ml/min; Est GFR (Non-African American) 26.8 ml/min; Magnesium 2.3 mg/dl (1.8-2.4); Partial Thromboplastin Time 66.9 Seconds (21.0-31.0); Potassium 3.4 mmol/L (3.5-5.1)
[2021-05-24] MEDS: MIDODRINE HCL 2.5 MG TAB PO SCH ×3 (07:57→20:42)
[2021-05-24] MEDS: MAGNESIUM OXIDE 400 MG TAB PO SCH ×2 (07:57→20:41)
[2021-05-24] MEDS: oxyCODONE HCL SOLN 5 MG/5 ML UDC PO PRN ×2 (07:57→20:41)
[2021-05-24] MEDS: FLUTICASONE/VILANTEROL 100/25MCG 14 PUFFS/INHALER INH SCH (07:58)
[2021-05-24] MEDS: BUMETANIDE 2 MG in SYRINGE 0 ML IV SCH ×2 (08:06→20:41)
[2021-05-24] MEDS: ATORVASTATIN 40 MG TAB PO SCH (08:53)
[2021-05-24] MEDS: MULTIVITAMIN TAB PO SCH (08:53)
[2021-05-24] MEDS: POTASSIUM CHLORIDE CRTAB 20 MEQ TABCR PO SCH ×2 (08:54→20:42)
[2021-05-24] MEDS: PANTOprazole 40 MG TAB PO SCH (08:54)
[2021-05-24] MEDS: FLUCONAZOLE 100 MG TAB PO SCH (08:54)
[2021-05-24] MEDS: HEPARIN SODIUM/DEXTROSE 25,000 UNITS/500 ML BAG IV SCH (12:27)
[2021-05-24 13:01] LABS: Partial Thromboplastin Ratio 2.5
[2021-05-24 13:04] LABS: Partial Thromboplastin Time 64.9 Seconds (21.0-31.0)
[2021-05-24] MEDS: NYSTATIN SUSP 500,000 U/5 ML UDC PO SCH ×2 (17:34→20:42)
[2021-05-24] MEDS: buPROPion SR 100 MG TABCR PO SCH (20:43)
--- NOTE | 2021-05-24 21:45 | Hospitalist Progress Note ---
Date of Service May 24, 2021 Assessment & Plan (1) Acute diastolic CHF (congestive heart failure): Plan: cont to improve. significant UOP with daily weight loss. cont bumex 2mg IV BID. recent echo reviewed - preserved EF. (2) Shortness of breath: Plan: Likely combination of acute diastolic CHF with PEs. Treating both. Still orthopneic from decompensated CHF. (3) Pulmonary emboli: Plan: high prob on VQ scan. cont heparin drip. recent dopplers neg. these PEs are provoked - numerous surgeries over the last 6 months, immobility, etc. if Cr is improved tomorrow transition to Eliquis 10mg BID. (4) Edema: Plan: 2nd to severe hypoalbuminemia and #1. improve her nutrition. cont diuresis. improving nicely. (5) Anemia: Plan: Tx 1 unit PRBC hospital day #1. heme neg stool. H/H stable since. Vitamin b12 elevated at 1225. Folate normal at 13.40. Iron normal at 57. Transferrin low at 153. Suspect her anemia is likely from anemia of chronic disease. H/H's have been stable. (6) Acute renal failure: Plan: Patient developed ARF/BEV ~05/02/21. At the time of admission to [facility] in mid-April her creatinine was 5-6. Was 4.8 at time of discharge on 05/18/21. Baseline Cr 1. u/a with granular casts - c/w ATN. Suspect her septic shock, hypotension, etc all played a role in her BEV development in April. Creatinine continues to improve. Supportive care. Daily BMP. (7) Septic arthritis of hip: Plan: RIGHT. s/p multiple surgeries in March & April - [facility]. Has finished lengthy course of IV cefepime which was followed by pramod. Abx stop date was 05/20/21. (Pseudomonas, proteus). Previous cultures also grew oj albicans. Plan - cont once daily diflucan until 09/20/21 per [facility] ID recs. 100% NWB status to RLE. Patient requests a non-[facility] orthopedist group to follow the right hip locally. (8) Status post right hip replacement: Plan: Initial surgery 11/2020. revision 01/2021. explantation of old hardware 03/25/21. additional I & D's for septic hip -- see my admission H/P. (9) Tobacco use disorder: Plan: has effectively quit in the midst of prolonged illness (10) GERD (gastroesophageal reflux disease): Plan: PPI daily (11) Hypertension: Plan: Now with midodrine dependent HYPOtension. at risk of adrenal insufficiency given 6+ surgeries since 11/2020. cortisol checked - 18, thus no adrenal insufficiency. cont midodrine in meantime and wean as tolerated. (12) History of prediabetes: Plan: a1c 6.1% in early January 2021. glucose <100 since admission. trend. (13) COPD (chronic obstructive pulmonary disease): Plan: no exacerbation at this time. (14) Hypotension: Plan: resolved (15) VRE infection (vancomycin resistant Enterococcus): Plan: VRE UTI at [place] in late April 2021. treated w/ zosyn. off abx for such. contact precautions. urine cx again here with VRE. suspect she is colonized. no symptoms of UTI at this time thus no Rx. (16) C. difficile enteritis: Plan: received documentation from [place] she was indeed + for c. diff. cont vanco qid. day #04/23 vanco. stools have normalized. (17) Depression with anxiety: Plan: willing to start meds. start wellbutrin 100mg BID. start buspar 5mg tid prn anxiety. since she will be on diflucan until 09/2021 unfortunately an SSRI will interact with the diflucan thus going w/ wellbutrin. (18) Hyperkalemia: Plan: 2nd to BEV. resolved (19) Severe protein-calorie malnutrition: Plan: reported 20+ pounds weight loss of late. albumin <2. nutrition consult. (20) Candidal esophagitis: Plan: dx on 05/03/21 EGD. remains on diflucan which is also being used for oj albicans that grew from right hip in April. added nystatin solution today - pt complained of sore mouth/gums. could have yeast in mouth/thrush. (21) Eosinophilic esophagitis: Plan: path report obtained from recent EGD w/ biopsies path report from [facility] for this entity (22) Hypomagnesemia: Plan: repleted/resolved (23) DVT prophylaxis: Plan: IV heparin updated pt's extensively yesterday by phone cont [facility] post[facility] is pt's choice Admission and Anticipated Discharge Date Admission Date: May 20, 2021 Subjective normal tele overnight. upon my arrival patient was sleeping. easily awoken. c/o feeling dyspneic. she was lying flat so I raised the head of the bed. dyspnea improved. no wheezing or cough. admits to feeling depressed for 2 months. also very anxious. willing to take meds for both issues. she has had thoughts of dying but no suicidal ideation. eating a little better today. Review of Systems Review of Systems: gen - no fevers, no chills. fatigue ongoing. cv - no chest pain. abd/gi - no nausea, no diarrhea. pulm - no wheezing or hemoptysis. Physical Exam Constitutional: + ill appearing and + frail appearing; + not well developed, + not well nourished, no acute distress and no altered mental status ENMT: Mouth: + dry oral mucous membranes Neck: trachea midline, no thyromegaly Respiratory: no respiratory distress Auscultation: + diminished lung sounds (bases) and + crackles (bases ) Cardiovascular: Rate/Rhythm: regular rate and regular rhythm Heart Sounds: normal S1 and normal S2; no murmur Vessels: + JVD (mild), posterior tibial pulses present and dorsalis pedis pulses present Extremities: + edema (1+ b/l legs ) Gastrointestinal (Abdomen): normal bowel sounds, soft, nontender, no hepatosplenomegaly Skin: no rashes, warm and dry + pallor Psychiatric: Orientation: alert and oriented x 3 Mood: + depressed mood Results & Data Results & Data ([facility]) Vital Signs (Past 12 Hours) Vital Signs Temp Pulse Resp BP Pulse Ox 05/24/21 19:08 37.1 C 92 H 18 118/80 95 05/24/21 16:18 37.4 C 81 19 126/79 96 05/24/21 12:38 36.7 C 87 20 103/70 99 Laboratory Results Laboratory Results - last 24 hr 05/23/21 05/24/21 05/24/21 22:26 05:43 05:43 Hgb 9.4 L APTT 58.0 H* PTT Ratio 2.2 Sodium 141 Potassium 3.4 L Chloride 110 H Carbon Dioxide 25 Anion Gap 6.0 BUN 20 H Creatinine 1.90 H D Est Cr Clr Drug Dosing 30.8 Est GFR ( Amer) 31.1 Est GFR (Non-Af Amer) 26.8 BUN/Creatinine Ratio 10.6 Glucose 103 H Calcium 8.4 L Magnesium 2.3 05/24/21 05/24/21 05:43 12:17 Hgb APTT 66.9 H* 64.9 H* PTT Ratio 2.5 2.5 Sodium Potassium Chloride Carbon Dioxide Anion Gap BUN Creatinine Est Cr Clr Drug Dosing Est GFR ( Amer) Est GFR (Non-Af Amer) BUN/Creatinine Ratio Glucose Calcium Magnesium PG Care Time/CCT Total # of Minutes Spent Total Time Spent with Patient: Total time spent is greater than 50% in coordination of care (as documented) at patient's floor/unit and/or counseling patient: Coding Level of Care Code 83638 Subseq Hosp Care Lvl 3 Diagnoses Acute diastolic CHF (congestive heart failure) I50.31 Shortness of breath R06.02 Pulmonary emboli I26.99 Edema R60.9 Anemia D64.9 Anemia type: unspecified type Acute renal failure N17.9 Acute renal failure type: unspecified Septic arthritis of hip M00.9 Status post right hip replacement Z96.641 Tobacco use disorder F17.200 GERD (gastroesophageal reflux disease) K21.9 Hypertension I10 History of prediabetes Z87.898 COPD (chronic obstructive pulmonary disease) J42 COPD type: chronic bronchitis Chronic bronchitis type: unspecified Hypotension I95.9 VRE infection (vancomycin resistant Enterococcus) A49.1; Z16.21 C. difficile enteritis A04.72 Depression with anxiety F41.8 Hyperkalemia E87.5 Severe protein-calorie malnutrition E43 Candidal esophagitis B37.81 Eosinophilic esophagitis K20.0 Hypomagnesemia E83.42 DVT prophylaxis Z29.9 (1) Acute renal failure Acute renal failure type: unspecified Qualified Code(s): N17.9 - Acute kidney failure, unspecified (2) Anemia Anemia type: unspecified type Qualified Code(s): D64.9 - Anemia, unspecified (3) COPD (chronic obstructive pulmonary disease) COPD type: chronic bronchitis Chronic bronchitis type: unspecified Qualified Code(s): J42 - Unspecified chronic bronchitis
[2021-05-25] MEDS: RASPBERRY SYRUP 5 ML UDP PO SCH ×4 (00:15→17:05)
[2021-05-25] MEDS: VANCOMYCIN HCL 125 MG/2.5ML SOLN PO SCH ×4 (00:15→17:05)
[2021-05-25] MEDS: oxyCODONE HCL SOLN 5 MG/5 ML UDC PO PRN (05:32)
[2021-05-25] MEDS: FLUCONAZOLE 100 MG TAB PO SCH (07:44)
[2021-05-25] MEDS: buPROPion SR 100 MG TABCR PO SCH ×2 (07:44→19:57)
[2021-05-25] MEDS: PANTOprazole 40 MG TAB PO SCH (07:44)
[2021-05-25] MEDS: ATORVASTATIN 40 MG TAB PO SCH (07:45)
[2021-05-25] MEDS: MULTIVITAMIN TAB PO SCH (07:45)
[2021-05-25] MEDS: POTASSIUM CHLORIDE CRTAB 20 MEQ TABCR PO SCH ×2 (07:45→19:56)
[2021-05-25] MEDS: MIDODRINE HCL 2.5 MG TAB PO SCH ×3 (07:46→19:54)
[2021-05-25] MEDS: FLUTICASONE/VILANTEROL 100/25MCG 14 PUFFS/INHALER INH SCH (07:46)
[2021-05-25] MEDS: MAGNESIUM OXIDE 400 MG TAB PO SCH ×2 (07:46→19:57)
[2021-05-25] MEDS: NYSTATIN SUSP 500,000 U/5 ML UDC PO SCH ×4 (07:47→19:53)
[2021-05-25] MEDS: BUMETANIDE 2 MG in SYRINGE 0 ML IV SCH ×2 (08:28→19:58)
[2021-05-25] MEDS: HEPARIN SODIUM/DEXTROSE 25,000 UNITS/500 ML BAG IV SCH (08:51)
[2021-05-25 09:11] LABS: Partial Thromboplastin Ratio 1.9
[2021-05-25 09:14] LABS: Partial Thromboplastin Time 48.7 Seconds (21.0-31.0)
[2021-05-25 09:21] LABS: BUN Creatinine Ratio 8.9 (10-20); Calcium 8.7 mg/dl (8.5-10.1); Creatinine Clr Calc Pharmacy 35.4 ml/min; Est GFR (African American) 36.3 ml/min; Est GFR (Non-African American) 31.3 ml/min; Potassium 3.9 mmol/L (3.5-5.1)
[2021-05-25] MEDS: APIXABAN 5 MG TABLET PO SCH ×2 (10:33→19:55)
[2021-05-25] MEDS ORDERED: ONDANSETRON INJ 2 MG/ML 2 ML VIAL IV PRN (13:36)
--- NOTE | 2021-05-25 13:43 | Hospitalist Progress Note ---
Date of Service May 25, 2021 Assessment & Plan (1) Acute diastolic CHF (congestive heart failure): Plan: approaching euvolemia. stop BUMEX after tonight's dose. re-eval tomorrow with weight, BMP, etc. recent echo reviewed - preserved EF. (2) Shortness of breath: Plan: Likely combination of acute diastolic CHF with PEs. Treating both. MUCH improved. (3) Pulmonary emboli: Plan: high prob on VQ scan. start Eliquis 10mg BID. d/c heparin drip. plan 6 months of Rx. provoked - NUMEROUS surgeries since Nov 2020. (4) Edema: Plan: 2nd to severe hypoalbuminemia and #1. IMPROVED/nearly resolved. (5) Anemia: Plan: Tx 1 unit PRBC hospital day #1. heme neg stool. H/H stable since. Vitamin b12 elevated at 1225. Folate normal at 13.40. Iron normal at 57. Transferrin low at 153. Suspect her anemia is likely from anemia of chronic disease. H/H's have been stable. (6) Acute renal failure: Plan: Patient developed ARF/BEV ~05/02/21. At the time of admission to [facility] in mid-April her creatinine was 5-6. Was 4.8 at time of discharge on 05/18/21. Baseline Cr 1. u/a with granular casts - c/w ATN. Suspect her septic shock, hypotension, etc all played a role in her BEV development in April. Creatinine continues to improve. Now 1.6 today. STOP Bumex. good UOP. Daily BMP. (7) Septic arthritis of hip: Plan: RIGHT. s/p multiple surgeries in March & April - [facility]. Has finished lengthy course of IV cefepime which was followed by cipro. Hakan holman op date was 05/20/21. (Pseudomonas, proteus). Previous cultures also grew oj albicans. Plan - cont once daily diflucan until 09/20/21 per [facility] ID recs. 100% NWB status to RLE. Patient requests a non-[facility] orthopedist group to follow the right hip locally. (8) Status post right hip replacement: Plan: Initial surgery 11/2020. revision 01/2021. explantation of old hardware 03/25/21. additional I & D's for septic hip -- see my admission H/P. (9) Tobacco use disorder: Plan: has effectively quit in the midst of prolonged illness (10) GERD (gastroesophageal reflux disease): Plan: PPI daily N/V may be GERD - pepcid x 1 now add carafate (11) Hypertension: Plan: Now with midodrine dependent HYPOtension. no adrenal insufficiency however- cortisol level 18. cont midodrine in meantime and wean as tolerated. (12) History of prediabetes: Plan: a1c 6.1% in early January 2021. glucose <100 since admission. trend. (13) COPD (chronic obstructive pulmonary disease): Plan: no exacerbation at this time. (14) Hypotension: Plan: resolved (15) VRE infection (vancomycin resistant Enterococcus): Plan: VRE UTI at [place] in late April 2021. treated w/ zosyn. off abx for such. contact precautions. urine cx again here with VRE. suspect she is colonized. no symptoms of UTI at this time thus no Rx. (16) C. difficile enteritis: Plan: received documentation from [place] she was indeed + for c. diff. cont vanco qid. day #05/24 vanco. stools have normalized. (17) Depression with anxiety: Plan: willing to start meds. started wellbutrin 100mg BID 05/24. start buspar 5mg tid prn anxiety. since she will be on diflucan until 09/2021 unfortunately an SSRI will interact with the diflucan thus going w/ wellbutrin. (18) Hyperkalemia: Plan: 2nd to BEV. resolved (19) Severe protein-calorie malnutrition: Plan: reported 20+ pounds weight loss of late. albumin <2. nutrition consult appreciated. supplements, etc. (20) Candidal esophagitis: Plan: dx on 05/03/21 EGD. remains on diflucan which is also being used for oj albicans that grew from right hip in April. nystatin solution for any oral thrush. (21) Eosinophilic esophagitis: Plan: path report obtained from recent EGD w/ biopsies path report from [facility] renetta for this entity (22) Hypomagnesemia: Plan: repleted/resolved recheck mag in am for stability (23) DVT prophylaxis: Plan: eliquis BID updated pt's extensively 05/23 also gave update tonight 05/25 cont PT/OT [facility] post-discharge is pt's choice social work aware Plan: if creatinine settles out at 1.6/1.7 -- then CKD stage 3 Admission and Anticipated Discharge Date Admission Date: May 20, 2021 Subjective tele overnight wnl pt stated she had good breakfast then took all am pills since then she has had significant nausea and dry heaves able to eat a little lunch despite above, however no abd pain no bloating passing flatus last BM? no dyspnea or orthopnea otherwise feeling ok Review of Systems Review of Systems: gen - no fever, no chills CV - no chest pain pulm - no wheeze or cough GI - nausea with emesis; no diarrhea; last BM was formed Physical Exam Physical Exam: gen - dry heaving during the visit mouth - MMM, thrush looks better neck - JVD resolved heart - RRR, s1 s2 lungs - mild soft rales bases, no wheezing, no distress abd - soft NT ND BS+ ext - edema < 1+ b/l; pulses 2+ b/l skin - mild pallor psych - a/o x 3 Results & Data Results & Data ([facility]) Vital Signs (Past 12 Hours) Vital Signs Temp Pulse Resp BP Pulse Ox 05/25/21 11:36 36.8 C 81 18 108/70 94 05/25/21 08:02 36.8 C 81 18 119/81 91 05/25/21 04:00 37.1 C 86 18 132/78 91 Laboratory Results BMP today - Cr 1.6 PG Care Time/CCT Total # of Minutes Spent Total Time Spent with Patient: Total time spent is greater than 50% in coordination of care (as documented) at patient's floor/unit and/or counseling patient: Coding Level of Care Code 92841 Subseq Hosp Care Lvl 3 Diagnoses Acute diastolic CHF (congestive heart failure) I50.31 Shortness of breath R06.02 Pulmonary emboli I26.99 Edema R60.9 Anemia D64.9 Anemia type: unspecified type Acute renal failure N17.9 Acute renal failure type: unspecified Septic arthritis of hip M00.9 Status post right hip replacement Z96.641 Tobacco use disorder F17.200 GERD (gastroesophageal reflux disease) K21.9 Hypertension I10 History of prediabetes Z87.898 COPD (chronic obstructive pulmonary disease) J42 COPD type: chronic bronchitis Chronic bronchitis type: unspecified Hypotension I95.9 VRE infection (vancomycin resistant Enterococcus) A49.1; Z16.21 C. difficile enteritis A04.72 Depression with anxiety F41.8 Hyperkalemia E87.5 Severe protein-calorie malnutrition E43 Candidal esophagitis B37.81 Eosinophilic esophagitis K20.0 Hypomagnesemia E83.42 DVT prophylaxis Z29.9 (1) Acute renal failure Acute renal failure type: unspecified Qualified Code(s): N17.9 - Acute kidney failure, unspecified (2) Anemia Anemia type: unspecified type Qualified Code(s): D64.9 - Anemia, unspecified (3) COPD (chronic obstructive pulmonary disease) COPD type: chronic bronchitis Chronic bronchitis type: unspecified Qualified Code(s): J42 - Unspecified chronic bronchitis
[2021-05-25] MEDS ORDERED: FAMOTIDINE 20MG IV PUSH 20 MG/5 ML SYR IV ONE (13:45)
[2021-05-25] MEDS: SUCRALFATE 1 GM/10 ML UDC PO SCH ×2 (17:03→19:58)
[2021-05-26] MEDS: RASPBERRY SYRUP 5 ML UDP PO SCH ×5 (00:24→23:38)
[2021-05-26] MEDS: VANCOMYCIN HCL 125 MG/2.5ML SOLN PO SCH ×5 (00:25→23:38)
[2021-05-26] MEDS: oxyCODONE HCL SOLN 5 MG/5 ML UDC PO PRN ×2 (05:32→13:24)
[2021-05-26 07:59] LABS: Calcium 8.8 mg/dl (8.5-10.1); Creatinine Clr Calc Pharmacy 34.7 ml/min; Est GFR (African American) 35.3 ml/min; Est GFR (Non-African American) 30.5 ml/min; Magnesium 1.5 mg/dl (1.8-2.4); Potassium 4.2 mmol/L (3.5-5.1)
[2021-05-26] MEDS: MAGNESIUM OXIDE 400 MG TAB PO SCH ×2 (09:14→20:37)
[2021-05-26] MEDS: MULTIVITAMIN TAB PO SCH (09:14)
[2021-05-26] MEDS: buPROPion SR 100 MG TABCR PO SCH ×2 (09:14→20:37)
[2021-05-26] MEDS: POTASSIUM CHLORIDE CRTAB 20 MEQ TABCR PO SCH ×2 (09:15→20:38)
[2021-05-26] MEDS: busPIRone 5 MG TAB PO PRN (09:15)
[2021-05-26] MEDS: FLUCONAZOLE 100 MG TAB PO SCH (09:15)
[2021-05-26] MEDS: APIXABAN 5 MG TABLET PO SCH ×2 (09:16→20:36)
[2021-05-26] MEDS: ATORVASTATIN 40 MG TAB PO SCH (09:16)
[2021-05-26] MEDS: FLUTICASONE/VILANTEROL 100/25MCG 14 PUFFS/INHALER INH SCH (09:16)
[2021-05-26] MEDS: MIDODRINE HCL 2.5 MG TAB PO SCH ×3 (09:17→20:38)
[2021-05-26] MEDS: PANTOprazole 40 MG TAB PO SCH (09:18)
[2021-05-26] MEDS: SUCRALFATE 1 GM/10 ML UDC PO SCH ×4 (09:18→20:39)
[2021-05-26] MEDS: NYSTATIN SUSP 500,000 U/5 ML UDC PO SCH ×4 (09:18→20:38)
[2021-05-26] MEDS: MAGNESIUM SULFATE / D5W 1 GM/100 ML BAG IV SCH ×3 (11:12→15:17)
[2021-05-26] MEDS: NYSTATIN POWDER 15GM BTL EXT SCH ×2 (17:34→21:17)
--- NOTE | 2021-05-26 22:49 | Hospitalist Progress Note ---
Date of Service May 26, 2021 Assessment & Plan (1) Acute diastolic CHF (congestive heart failure): Plan: resolved. looks euvolemic. bumex IV stopped. follow BMPs. may need low-dose lasix or bumex orally on daily basis or prn. echo this admission with preserved EF. (2) Shortness of breath: Plan: Likely combination of acute diastolic CHF with PEs. Treating both. MUCH improved/resolved. (3) Pulmonary emboli: Plan: high prob on VQ scan. was not candidate for CTA chest due to high Creatinine. started Eliquis 10mg BID on 05/25/21. plan 10mg BID x 7 days, then 5mg BID thereafter. plan 6 months of Rx. provoked - NUMEROUS surgeries since Nov 2020 along with ICU stays, severe immobility, etc. (4) Edema: Plan: 2nd to severe hypoalbuminemia and #1. nearly resolved. (5) Anemia: Plan: Tx 1 unit PRBC on hospital day #1. heme neg stool. H/H stable since. Vitamin b12 elevated at 1225. Folate normal at 13.40. Iron normal at 57. Transferrin low at 153. Transferrin sat 26%. Suspect her anemia is mostly from anemia of chronic disease. (6) Acute renal failure: Plan: Patient developed ARF/BEV ~05/02/21. At the time of admission to [facility] in mid-April her creatinine was 6+. Was 4.8 at time of discharge from [facility] on 05/18/21. Baseline Cr 1 per our records. u/a with granular casts - c/w ATN. Suspect her septic shock, hypotension, etc all played a role in her BEV development in April. Creatinine improved very nicely during this stay here. Cr seems to have settled out at 1.6/1.7. diuretics stopped. good UOP. Daily BMP. (7) Septic arthritis of hip: Plan: RIGHT. s/p multiple surgeries in March & April - [facility]. Has finished lengthy course of IV cefepime which was followed by PO pramod. All Abx stopped on 05/20/21. (Pseudomonas, proteus were culprit pathogens). Previous cultures also grew oj albicans. Plan - cont once daily diflucan until 09/20/21 per [facility] ID recs. Before discharge would get an EKG to check QTc for stability. 100% NWB status to RLE. Patient requests a non-[facility] orthopedist group to follow the right hip locally following her discharge from [facility]. (8) Status post right hip replacement: Plan: Initial surgery 11/2020. revision 01/2021. explantation of old hardware 03/25/21. additional I & D's for septic hip -- see my admission H/P. (9) Tobacco use disorder: Plan: has effectively quit in the midst of prolonged illness (10) GERD (gastroesophageal reflux disease): Plan: PPI daily carafate added this admission as well (11) Hypertension: Plan: Now with midodrine dependent HYPOtension. no adrenal insufficiency however- cortisol level 18. cont midodrine in meantime. (12) History of prediabetes: Plan: a1c 6.1% in early January 2021. glucose <100 since admission. controlled. (13) COPD (chronic obstructive pulmonary disease): Plan: no exacerbation at this time. (14) Hypotension: Plan: resolved see #11 (15) VRE infection (vancomycin resistant Enterococcus): Plan: VRE UTI at [place] in late April 2021. treated w/ 7+ days of IV zosyn. off abx for such. contact precautions. urine cx again here with VRE. it is now resistant to zosyn; ONLY SENSITIVE to DAPTOMYCIN. suspect she is colonized. no symptoms of UTI at this time thus WOUND NOT TREAT (no fever, normal wbc count, no UTI symptoms). (16) C. difficile enteritis: Plan: received documentation from [place] she was indeed + for c. diff just prior to early May discharge. cont vanco qid. day #06/24 vanco. stools have normalized. contact precautions. (17) Depression with anxiety: Plan: willing to start meds. started wellbutrin 100mg BID 05/24. started buspar 5mg tid prn anxiety. since she will be on diflucan until 09/2021 unfortunately an SSRI will interact with the diflucan thus going w/ wellbutrin. (18) Hyperkalemia: Plan: 2nd to BEV. resolved (19) Severe protein-calorie malnutrition: Plan: reported 20+ pounds weight loss of late. albumin <2. nutrition consult appreciated. supplements, etc. I liberalized her diet from AHA to regular to entice appetite. (20) Candidal esophagitis: Plan: dx on 05/03/21 EGD. remains on diflucan which is also being used for oj albicans that grew from right hip in April. nystatin solution for any oral thrush. (21) Hypomagnesemia: Plan: repleted/resolved, then developed low level again in midst of IV bumex. mag sulfate IV x [address] on mag oxide BID. recheck mag in am for stability (22) DVT prophylaxis: Plan: eliquis BID updated pt's extensively 05/23 also gave update tonight 05/25 cont PT/OT [facility] post-discharge is pt's choice social work aware should be ready by 05/28 to d/c back to [facility] d/c tele move to med/surg (23) Chronic renal failure, stage 3b: Plan: if creatinine settles out at 1.6/1.7 -- then CKD stage 3 Admission and Anticipated Discharge Date Admission Date: May 20, 2021 Subjective "I feel very good today" she had nausea w/ dry heaves yesterday - this is all resolved no dyspepsia or stomach upset breathing is normal - no further dyspnea or orthopnea does mention she has a "sore spot" on her buttock area staff report a small sacral decub they also mention a groin rash tele overnight wnl Review of Systems Review of Systems: gen - no fevers or chills CV - no chest pain pulm - no cough or wheeze psych - feeling a bit better w/ mood today GI - no abd pain - no dysuria Physical Exam Physical Exam: gen - looks much better today, affect full, pleasant mouth - MMM, thrush resolved neck - JVD resolved heart - RRR, s1 s2, 1/6 SABRINA LSB lungs - scant basilar rales; no wheeze; good airation b/l abd - soft NT ND BS+ ext - edema trace; pulses 2+ b/l skin - mild pallor; mild candidal rash groin; stage 1 (maybe early 2) vertical linear ulceration in gluteal cleft; surgical scars x 2 right lateral thigh; tiny ulceration at one of the corners of 1 scar with no drainage psych - a/o x 3; affect more full today Results & Data Results & Data ([facility]) Vital Signs (Past 12 Hours) Vital Signs Temp Pulse Pulse Resp BP BP Pulse Ox 05/26/21 18:15 37.0 C 84 17 121/76 92 05/26/21 15:44 92 H 05/26/21 15:43 83 05/26/21 15:11 36.8 C 87 19 103/54 L 94 Laboratory Results Laboratory Results - last 24 hr 05/26/21 07:15 Sodium 141 Potassium 4.2 Chloride 107 Carbon Dioxide 26 Anion Gap 8.0 BUN 12 Creatinine 1.71 H Est Cr Clr Drug Dosing 34.7 Est GFR ( Amer) 35.3 Est GFR (Non-Af Amer) 30.5 BUN/Creatinine Ratio 7.0 L Glucose 99 Calcium 8.8 Magnesium 1.5 L PG Care Time/CCT Total # of Minutes Spent Total Time Spent with Patient: Total time spent is greater than 50% in coordination of care (as documented) at patient's floor/unit and/or counseling patient: Coding Level of Care Code 56827 Subseq Hosp Care Lvl 3 Diagnoses Acute diastolic CHF (congestive heart failure) I50.31 Shortness of breath R06.02 Pulmonary emboli I26.99 Edema R60.9 Anemia D64.9 Anemia type: unspecified type Acute renal failure N17.9 Acute renal failure type: unspecified Septic arthritis of hip M00.9 Status post right hip replacement Z96.641 Tobacco use disorder F17.200 GERD (gastroesophageal reflux disease) K21.9 Hypertension I10 History of prediabetes Z87.898 COPD (chronic obstructive pulmonary disease) J42 COPD type: chronic bronchitis Chronic bronchitis type: unspecified Hypotension I95.9 VRE infection (vancomycin resistant Enterococcus) A49.1; Z16.21 C. difficile enteritis A04.72 Depression with anxiety F41.8 Hyperkalemia E87.5 Severe protein-calorie malnutrition E43 Candidal esophagitis B37.81 Hypomagnesemia E83.42 DVT prophylaxis Z29.9 Chronic renal failure, stage 3b N18.32 (1) Acute renal failure Acute renal failure type: unspecified Qualified Code(s): N17.9 - Acute kidney failure, unspecified (2) Anemia Anemia type: unspecified type Qualified Code(s): D64.9 - Anemia, unspecified (3) COPD (chronic obstructive pulmonary disease) COPD type: chronic bronchitis Chronic bronchitis type: unspecified Qualified Code(s): J42 - Unspecified chronic bronchitis
[2021-05-27] MEDS: RASPBERRY SYRUP 5 ML UDP PO SCH ×4 (05:57→23:49)
[2021-05-27] MEDS: VANCOMYCIN HCL 125 MG/2.5ML SOLN PO SCH ×4 (05:57→23:49)
[2021-05-27 08:21] LABS: Calcium 8.9 mg/dl (8.5-10.1); Creatinine Clr Calc Pharmacy 35.7 ml/min; Est GFR (African American) 36.6 ml/min; Est GFR (Non-African American) 31.6 ml/min; Magnesium 2.5 mg/dl (1.8-2.4); Potassium 4.6 mmol/L (3.5-5.1)
[2021-05-27] MEDS: MAGNESIUM OXIDE 400 MG TAB PO SCH ×2 (09:18→20:54)
[2021-05-27] MEDS: PANTOprazole 40 MG TAB PO SCH (09:18)
[2021-05-27] MEDS: FLUCONAZOLE 100 MG TAB PO SCH (09:18)
[2021-05-27] MEDS: MIDODRINE HCL 2.5 MG TAB PO SCH ×3 (09:19→20:55)
[2021-05-27] MEDS: busPIRone 5 MG TAB PO PRN (09:19)
[2021-05-27] MEDS: ATORVASTATIN 40 MG TAB PO SCH (09:19)
[2021-05-27] MEDS: MULTIVITAMIN TAB PO SCH (09:20)
[2021-05-27] MEDS: FLUTICASONE/VILANTEROL 100/25MCG 14 PUFFS/INHALER INH SCH (09:20)
[2021-05-27] MEDS: SUCRALFATE 1 GM/10 ML UDC PO SCH ×4 (09:21→21:07)
[2021-05-27] MEDS: POTASSIUM CHLORIDE CRTAB 20 MEQ TABCR PO SCH ×2 (09:21→21:07)
[2021-05-27] MEDS: APIXABAN 5 MG TABLET PO SCH ×2 (09:21→20:53)
[2021-05-27] MEDS: NYSTATIN SUSP 500,000 U/5 ML UDC PO SCH ×4 (09:21→20:55)
[2021-05-27] MEDS: NYSTATIN POWDER 15GM BTL EXT SCH ×3 (09:22→20:55)
[2021-05-27] MEDS: buPROPion SR 100 MG TABCR PO SCH ×2 (09:23→20:54)
--- NOTE | 2021-05-27 17:44 | Electrocardiogram Report ---
Test Reason : Blood Pressure : / mmHG Vent. Rate : 082 BPM Atrial Rate : 082 BPM P-R Int : 146 ms QRS Dur : 068 ms QT Int : 410 ms P-R-T Axes : 034 055 042 degrees QTc Int : 479 ms Normal sinus rhythm Prolonged QT Abnormal ECG Confirmed by Edwin Miranda [id number] on 05/27/2021 5:43:30 PM Referred By: [facility] Confirmed By:Mickey Miranda
--- NOTE | 2021-05-27 20:28 | Hospitalist Progress Note ---
Date of Service May 27, 2021 Assessment & Plan (1) Acute diastolic CHF (congestive heart failure): Plan: Improved, continues to appear euvolemic BMP daily Reassess daily TTE: (2) Shortness of breath: Plan: -Likely combination of acute diastolic CHF with PEs. Treatment as noted in CHF/pulmonary emboli sections Patient improved with no symptoms today (3) Pulmonary emboli: Plan: High prob on VQ scan. -was not candidate for CTA chest due to high Creatinine. - started Eliquis 10mg BID on 05/25/21. Plan 10mg BID x 7 days, then 5mg BID thereafter. -plan 6 months of anticoagulation 2/2 provoked w/ NUMEROUS surgeries since Nov 2020 along with ICU stays, severe immobility, etc. (4) Edema: Plan: 2nd to severe hypoalbuminemia and #1. nearly resolved. (5) Anemia: Plan: -Tx 1 unit PRBC on hospital day #1. -heme neg stool. -H/H stable since. -Vitamin b12 elevated at 1225. Folate normal at 13.40. Iron normal at 57. Transferrin low at 153. -Transferrin sat 26%. -Suspect her anemia is mostly from anemia of chronic disease. -Benefit from some iron supplementation at discharge despite normal saturation/iron (6) Acute renal failure: Plan: -Patient developed ARF/BEV ~05/02/21. -At the time of admission to [facility] in mid-April her creatinine was 6+. -Was 4.8 at time of discharge from [facility] on 05/18/21. -Baseline Cr 1 per our records. -u/a with granular casts - c/w ATN. Suspect her septic shock, hypotension, etc all played a role in her BEV development in April. -Cr downtrended to ~ 1.6-1.7. - diuretics stopped. - good UOP. - Daily BMP. (7) Septic arthritis of hip: Plan: - RIGHT HIP - s/p multiple surgeries in March & April - [facility]. - Has finished lengthy course of IV cefepime which was followed by PO jerriro. All Abx stopped on 05/20/21. (Pseudomonas, proteus were culprit pathogens). - Previous cultures also grew oj albicans. Plan - cont once daily diflucan until 09/20/21 per [facility] ID recs. qTP variable, increased today. Repeat EKG prior to d/c. - 100% NWB status to RLE. - Patient requests a non-[facility] orthopedist group to follow the right hip locally following her discharge from [facility]. (8) Status post right hip replacement: Plan: -Initial surgery 11/2020. -revision 01/2021. -explantation of old hardware 03/25/21. -additional I & D's for septic hip -- see admission H/P. (9) Tobacco use disorder: Plan: - in remission while in prolonged illness (10) GERD (gastroesophageal reflux disease): Plan: -PPI daily -carafate added this admission as well (11) Hypertension: Plan: -Now with midodrine dependent HYPOtension. - cortisol level 18. -cont midodrine (12) History of prediabetes: Plan: -a1c 6.1% in early January 2021. -glucose <100 since admission. -controlled. (13) COPD (chronic obstructive pulmonary disease): Plan: -no exacerbation at this time. (14) Hypotension: Plan: resolved see #11 (15) VRE infection (vancomycin resistant Enterococcus): Plan: -VRE UTI at [place] in late April 2021. -treated w/ 7+ days of IV zosyn. -contact precautions. - urine cx again here with VRE. it is now resistant to zosyn; ONLY SENSITIVE to DAPTOMYCIN - LIkely colonized. - no symptoms of UTI at this time thus WOUND NOT TREAT (no fever, normal wbc count, no UTI symptoms). (16) C. difficile enteritis: Plan: -received documentation from [place] she was indeed + for c. diff just prior to early May discharge. -completing vanco QID today -stools have normalized. -contact precautions. (17) Depression with anxiety: Plan: Continue wellbutrin 100mg BID 05/24. Continue buspar 5mg tid prn anxiety. - Defer SSRI due to QT interaction with diflucan (18) Hyperkalemia: Plan: -2nd to BEV. -resolved (19) Severe protein-calorie malnutrition: Plan: -reported 20+ pounds weight loss of late. -albumin <2. -nutrition consult appreciated. - liberalized diet to encourage nutrition (20) Candidal esophagitis: Plan: -dx on 7/20/21 EGD. -remains on diflucan which is also being used for oj albicans that grew from right hip in April. -nystatin solution for any oral thrush. (21) Hypomagnesemia: Plan: repleted/resolved repeat MG check in AM (22) DVT prophylaxis: Plan: - eliquis BID - cont PT/OT - anticipate d/c to [facility] tomorrow (23) Chronic renal failure, stage 3b: Admission and Anticipated Discharge Date Admission Date: May 20, 2021 Subjective Rate is seen at bedside today. She reports she feels "great "and expresses appreciation of morning visit. Denies shortness of breath, chest pain, chest pressure. She does not have any palpitations today. She reports that her leg is not painful today, and is not having any pain at her knee. No questions and concerns, other than when the plan is moving forward to get out of the hospital. Review of Systems Review of Systems: Constitutional: Denies fever, chills, malaise Eyes: Denies vision change ENT: Denies ear pain, sore throat, sinus pain Cardiovascular: Denies Chest pain, chest pressure, palpitations, extremity swelling Respiratory: Denies shortness of breath, cough, sputum production, difficulty breathing Gastrointestinal: Denies abdominal pain, nausea, vomiting, constipation, diarrhea Genitourinary: Denies dysuria, urinary frequency Musculoskeletal: Denies muscle aches today Physical Exam Physical Exam: General: A&Ox3. NAD. Cooperative. Skin: Gluteal cleft pressure ulcer present, dressing in place. Candidal groin rash present. HEENT: Atraumatic, normocephalic. Pulm: CTAB A&P. -wheezes, -rales, -rhonchi. Symmetrical chest rise. No increase work of breathing. No respiratory distress. Cardiac: RRR, -mrg. Radial pulses intact and symmetrical. Abdominal: Nontender, nondistended, soft. BS present. Extremities: No edema appreciated on exam, PG Care Time/CCT Total # of Minutes Spent Total Time Spent with Patient: Total time spent is greater than 50% in coordination of care (as documented) at patient's floor/unit and/or counseling patient: Coding Level of Care Code 40668 Subseq Hosp Care Lvl 2 Diagnoses Acute diastolic CHF (congestive heart failure) I50.31 Shortness of breath R06.02 Pulmonary emboli I26.99 Edema R60.9 Anemia D64.9 Anemia type: unspecified type Acute renal failure N17.9 Acute renal failure type: unspecified Septic arthritis of hip M00.9 Status post right hip replacement Z96.641 Tobacco use disorder F17.200 GERD (gastroesophageal reflux disease) K21.9 Hypertension I10 History of prediabetes Z87.898 COPD (chronic obstructive pulmonary disease) J42 COPD type: chronic bronchitis Chronic bronchitis type: unspecified Hypotension I95.9 VRE infection (vancomycin resistant Enterococcus) A49.1; Z16.21 C. difficile enteritis A04.72 Depression with anxiety F41.8 Hyperkalemia E87.5 Severe protein-calorie malnutrition E43 Candidal esophagitis B37.81 Hypomagnesemia E83.42 DVT prophylaxis Z29.9 Chronic renal failure, stage 3b N18.32 (1) Anemia Anemia type: unspecified type Qualified Code(s): D64.9 - Anemia, unspecified (2) Acute renal failure Acute renal failure type: unspecified Qualified Code(s): N17.9 - Acute kidney failure, unspecified (3) COPD (chronic obstructive pulmonary disease) COPD type: chronic bronchitis Chronic bronchitis type: unspecified Qualified Code(s): J42 - Unspecified chronic bronchitis
[2021-05-27] MEDS: oxyCODONE HCL SOLN 5 MG/5 ML UDC PO PRN (23:54)
[2021-05-28] MEDS: VANCOMYCIN HCL 125 MG/2.5ML SOLN PO SCH ×3 (06:00→17:13)
[2021-05-28] MEDS: RASPBERRY SYRUP 5 ML UDP PO SCH ×3 (06:00→17:13)
[2021-05-28 06:26] LABS: BUN Creatinine Ratio 5.5 (10-20); Calcium 9.1 mg/dl (8.5-10.1); Creatinine Clr Calc Pharmacy 41.7 ml/min; Est GFR (African American) 44.2 ml/min; Est GFR (Non-African American) 38.1 ml/min; Phosphorus 3.6 mg/dl (2.5-4.9)
[2021-05-28 07:35] LABS: Basophils # (auto) 0.08 K/uL (0-0.2); Basophils % (auto) 1.3 %; Eosinophils # (auto) 0.42 K/uL (0-0.5); Eosinophils % (auto) 6.8 %; Hematocrit (blood only) 30.8 % (37-47); Hemoglobin 9.5 g/dL (12.0-16.0); Immature Granulocytes # (auto) 0.04 K/uL (0.00-0.02); Immature Granulocytes % (auto) 0.6 %; Lymphocytes # (auto) 2.54 K/uL (1.2-3.4); Lymphocytes % (auto) 41.1 %; Mean Corpuscular Hemoglobin 28.9 pg (25-34); Mean Corpuscular Hgb Conc 30.8 g/dL (32-36); Mean Corpuscular Volume 93.6 fL (80-100); Mean Platelet Volume 9.9 fL (7.4-10.4); Monocytes # (auto) 1.09 K/uL (0.11-0.59); Monocytes % (auto) 17.6 %; Neutrophils # (auto) 2.01 K/uL (1.4-6.5); Neutrophils % (auto) 32.6 %; Platelet Count 426 K/uL (130-400); RDW Coefficient of Variation 16.3 % (11.5-14.5); Red Blood Count 3.29 M/uL (4.2-5.4); White Blood Count 6.18 K/uL (4.8-10.8)
[2021-05-28 07:53] LABS: Potassium 4.3 mmol/L (3.5-5.1)
[2021-05-28 07:54] LABS: Magnesium 2.1 mg/dl (1.8-2.4)
[2021-05-28] MEDS: MULTIVITAMIN TAB PO SCH (09:24)
[2021-05-28] MEDS: MIDODRINE HCL 2.5 MG TAB PO SCH ×3 (09:24→21:48)
[2021-05-28] MEDS: FLUCONAZOLE 100 MG TAB PO SCH (09:24)
[2021-05-28] MEDS: MAGNESIUM OXIDE 400 MG TAB PO SCH ×2 (09:24→21:50)
[2021-05-28] MEDS: ATORVASTATIN 40 MG TAB PO SCH (09:24)
[2021-05-28] MEDS: PANTOprazole 40 MG TAB PO SCH (09:24)
[2021-05-28] MEDS: APIXABAN 5 MG TABLET PO SCH ×2 (09:24→21:49)
[2021-05-28] MEDS: buPROPion SR 100 MG TABCR PO SCH ×2 (09:24→21:49)
[2021-05-28] MEDS: NYSTATIN POWDER 15GM BTL EXT SCH ×3 (09:25→21:50)
[2021-05-28] MEDS: FLUTICASONE/VILANTEROL 100/25MCG 14 PUFFS/INHALER INH SCH (09:25)
[2021-05-28] MEDS: SUCRALFATE 1 GM/10 ML UDC PO SCH ×4 (09:25→21:51)
[2021-05-28] MEDS: NYSTATIN SUSP 500,000 U/5 ML UDC PO SCH ×4 (09:25→21:50)
[2021-05-28] MEDS: POTASSIUM CHLORIDE CRTAB 20 MEQ TABCR PO SCH ×2 (09:32→21:51)
--- NOTE | 2021-05-28 12:18 | Electrocardiogram Report ---
Test Reason : Blood Pressure : / mmHG Vent. Rate : 087 BPM Atrial Rate : 087 BPM P-R Int : 138 ms QRS Dur : 080 ms QT Int : 402 ms P-R-T Axes : 047 060 039 degrees QTc Int : 483 ms Normal sinus rhythm Low voltage QRS Incomplete right bundle branch block Borderline ECG When compared with ECG of 27-MAY-2021 10:44, No significant change was found Confirmed by Tyler Pearl ([id number]) on 05/28/2021 12:17:47 PM Referred By: [facility] Confirmed By:Tyler Pearl
--- NOTE | 2021-05-28 14:40 | Hospitalist Progress Note ---
Date of Service May 28, 2021 Assessment & Plan (1) Septic arthritis of hip: Plan: - RIGHT HIP - s/p multiple surgeries in March & April - [facility]. - Has finished lengthy course of IV cefepime which was followed by [facility] benavidez. All Abx stopped on 05/20/21. (Pseudomonas, proteus were culprit pathogens). - Previous cultures also grew oj albicans. Plan - cont once daily diflucan until 09/20/21 per [facility] ID recs. qTP variable, increased today. Repeat EKG prior to d/c. - 100% NWB status to RLE. - Patient requests a non-[facility] orth[place]ist group to follow the right hip locally following her discharge from [facility]. (2) QT prolongation: Plan: Repeat EKG for stability shows QTc of 483, patient with borderline prolonged QT on admission with a low in 450s Zofran previously stopped, hold QT prolonging medications Suspect QT prolongation from her Diflucan treatment which was anticipated to be continued until September 20 per [facility] ID. Given variable and borderline increased QT consult placed to [facility] infectious disease who is familiar with her case on whether consideration/switch to another antifungal agent would be appropriate. Patient moved to medical telemetry for monitoring (3) Acute diastolic CHF (congestive heart failure): Plan: Improved, continues to appear euvolemic BMP daily Reassess daily TTE: EF 55-60%, normal LV function, mild increased pulmonary pressure (4) Shortness of breath: Plan: -Likely combination of acute diastolic CHF with PEs. Treatment as noted in CHF/pulmonary emboli sections Patient improved with no symptoms today (5) Pulmonary emboli: Plan: High prob on VQ scan. -was not candidate for CTA chest due to high Creatinine. - started Eliquis 10mg BID on 05/25/21. Plan 10mg BID x 7 days, then 5mg BID thereafter. -plan 6 months of anticoagulation 2/2 provoked w/ NUMEROUS surgeries since Nov 2020 along with ICU stays, severe immobility, etc. (6) Edema: Plan: 2nd to severe hypoalbuminemia and #1. nearly resolved. (7) Anemia: Plan: -Tx 1 unit PRBC on hospital day #1. -heme neg stool. -H/H stable since. -Vitamin b12 elevated at 1225. Folate normal at 13.40. Iron normal at 57. Transferrin low at 153. -Transferrin sat 26%. -Suspect her anemia is mostly from anemia of chronic disease. -Benefit from some iron supplementation at discharge despite normal saturation/iron (8) Acute renal failure: Plan: -Patient developed ARF/BEV ~05/02/21. -At the time of admission to [facility] in mid-April her creatinine was 6+. -Was 4.8 at time of discharge from [facility] on 05/18/21. -Baseline Cr 1 per our records. -u/a with granular casts - c/w ATN. Suspect her septic shock, hypotension, etc all played a role in her BEV development in April. -Cr continues to downtrend, 05/28 1.42 from 1.66 05/27 - diuretics stopped. - good UOP. - Daily BMP. (9) Status post right hip replacement: Plan: -Initial surgery 11/2020. -revision 01/2021. -explantation of old hardware 03/25/21. -additional I & D's for septic hip -- see admission H/P. (10) Tobacco use disorder: Plan: - in remission while in prolonged illness (11) GERD (gastroesophageal reflux disease): Plan: -PPI daily -carafate added this admission as well (12) Hypertension: Plan: -Now with midodrine dependent HYPOtension. - cortisol level 18. -cont midodrine (13) History of prediabetes: Plan: -a1c 6.1% in early January 2021. -glucose <100 since admission. -controlled. (14) COPD (chronic obstructive pulmonary disease): Plan: -no exacerbation at this time. (15) Hypotension: Plan: resolved see #11 (16) VRE infection (vancomycin resistant Enterococcus): Plan: -VRE UTI at [place] in late April 2021. -treated w/ 7+ days of IV zosyn. -contact precautions. - urine cx again here with VRE. it is now resistant to zosyn; ONLY SENSITIVE to DAPTOMYCIN - LIkely colonized. - no symptoms of UTI at this time thus WOUND NOT TREAT (no fever, normal wbc co unt, no UTI symptoms). (17) C. difficile enteritis: Plan: -received documentation from [place] she was indeed + for c. diff just prior to early May discharge. -10 day course of vanco QID complete 05/31 -stools have normalized. -contact precautions. (18) Depression with anxiety: Plan: Continue wellbutrin 100mg BID 05/24. Continue buspar 5mg tid prn anxiety. - Defer SSRI due to QT interaction with diflucan (19) Hyperkalemia: Plan: -2nd to BEV. -resolved (20) Severe protein-calorie malnutrition: Plan: -reported 20+ pounds weight loss of late. -albumin <2. -nutrition consult appreciated. - liberalized diet to encourage nutrition (21) Candidal esophagitis: Plan: -dx on 05/03/21 EGD. -remains on diflucan which is also being used for oj albicans that grew from right hip in April. -nystatin solution for any oral thrush. (22) Hypomagnesemia: Plan: repleted/resolved repeat MG check in AM (23) DVT prophylaxis: Plan: - eliquis BID - cont PT/OT - anticipate d/c to [facility] for rehab (24) Chronic renal failure, stage 3b: Admission and Anticipated Discharge Date Admission Date: May 20, 2021 Subjective Patient is seen at the bedside today. She feels about the same as yesterday, no pain in her right hip at rest but tearfully expresses concern about her overall course and fear of rehab and doing poorly. She expresses an understanding that her recovery will be a long process and that rehab will be the next step in getting stronger. She reports she agrees with this plan is excited to get better, but "has been through so much "that she worries about the change from the hospital to rehab. Support provided. Patient otherwise reports she feels okay, and is not having chest pain/chest pressure/fever/chills/difficulty breathing at time of assessment. Review of Systems Review of Systems: Constitutional: Denies fever, chills, malaise Eyes: Denies vision change ENT: Denies ear pain, sore throat, sinus pain Cardiovascular: Denies Chest pain, chest pressure, palpitations, extremity swelling Respiratory: Denies shortness of breath, cough, sputum production, difficulty breathing Gastrointestinal: Denies abdominal pain, nausea, vomiting, constipation, diarrhea Genitourinary: Denies dysuria, urinary frequency Musculoskeletal: Endorses intermittent right hip pain with movement but none at rest or at time of assessment. Physical Exam Physical Exam: General: A&Ox3. NAD. Cooperative. Skin: Gluteal cleft pressure ulcer present, dressing in place. Candidal groin rash present. HEENT: Atraumatic, normocephalic. Pulm: CTAB A&P. -wheezes, -rales, -rhonchi. Symmetrical chest rise. No increase work of breathing. No respiratory distress. Cardiac: RRR, -mrg. Radial pulses intact and symmetrical. Abdominal: Nontender, nondistended, soft. BS present. Extremities: No edema appreciated on exam, right hip with surgical incision intact without dehiscence or purulence. Overlying skin fold with some erythema, no plaques, nystatin powder present. Results & Data Results & Data ([facility]) Vital Signs (Past 12 Hours) Vital Signs Temp Pulse Resp BP BP Pulse Ox 05/28/21 14:09 37.1 C 85 18 121/76 94 05/28/21 09:19 82 93/65 L 05/28/21 06:16 36.7 C 81 18 113/71 95 PG Care Time/CCT Total # of Minutes Spent Total Time Spent with Patient: Total time spent is greater than 50% in coordination of care (as documented) at patient's floor/unit and/or counseling patient: Coding Level of Care Code 98062 Subseq Hosp Care Lvl 3 Diagnoses Acute diastolic CHF (congestive heart failure) I50.31 Shortness of breath R06.02 Pulmonary emboli I26.99 Edema R60.9 Anemia D64.9 Anemia type: unspecified type Acute renal failure N17.9 Acute renal failure type: unspecified Septic arthritis of hip M00.9 Status post right hip replacement Z96.641 Tobacco use disorder F17.200 GERD (gastroesophageal reflux disease) K21.9 Hypertension I10 History of prediabetes Z87.898 COPD (chronic obstructive pulmonary disease) J42 COPD type: chronic bronchitis Chronic bronchitis type: unspecified Hypotension I95.9 VRE infection (vancomycin resistant Enterococcus) A49.1; Z16.21 C. difficile enteritis A04.72 Depression with anxiety F41.8 Hyperkalemia E87.5 Severe protein-calorie malnutrition E43 Candidal esophagitis B37.81 Hypomagnesemia E83.42 DVT prophylaxis Z29.9 Chronic renal failure, stage 3b N18.32 QT prolongation R94.31 (1) Anemia Anemia type: unspecified type Qualified Code(s): D64.9 - Anemia, unspecified (2) Acute renal failure Acute renal failure type: unspecified Qualified Code(s): N17.9 - Acute kidney failure, unspecified (3) COPD (chronic obstructive pulmonary disease) COPD type: chronic bronchitis Chronic bronchitis type: unspecified Qualified Code(s): J42 - Unspecified chronic bronchitis
[2021-05-28] MEDS: oxyCODONE HCL SOLN 5 MG/5 ML UDC PO PRN (17:20)
[2021-05-29] MEDS: RASPBERRY SYRUP 5 ML UDP PO SCH ×3 (00:49→12:29)
[2021-05-29] MEDS: VANCOMYCIN HCL 125 MG/2.5ML SOLN PO SCH ×3 (00:49→12:29)
[2021-05-29] MEDS: oxyCODONE HCL SOLN 5 MG/5 ML UDC PO PRN (06:18)
[2021-05-29 07:09] LABS: Hematocrit (blood only) 32.8 % (37-47); Mean Corpuscular Hemoglobin 29.3 pg (25-34); Mean Corpuscular Hgb Conc 30.5 g/dL (32-36); Mean Corpuscular Volume 96.2 fL (80-100); Mean Platelet Volume 10.2 fL (7.4-10.4); Platelet Count 498 K/uL (130-400); RDW Coefficient of Variation 16.3 % (11.5-14.5); RDW Standard Deviation 57.7 fL (36.4-46.3); Red Blood Count 3.41 M/uL (4.2-5.4); White Blood Count 7.51 K/uL (4.8-10.8)
--- NOTE | 2021-05-29 07:10 | Hospitalist Progress Note ---
Date of Service May 29, 2021 Assessment & Plan (1) Septic arthritis of hip: Plan: - RIGHT HIP - s/p multiple surgeries in March & April - [facility]. - Has finished lengthy course of IV cefepime which was followed by [facility]. All Abx stopped on 05/20/21. (Pseudomonas, proteus were culprit pathogens). - Previous cultures also grew oj albicans. Plan - cont once daily diflucan until 09/20/21 per [facility] ID recs. qTP variable, increased today. Repeat EKG prior to d/c. - 100% NWB status to RLE. - Patient requests a non-[facility] orthopedist group to follow the right hip locally following her discharge from [facility]. (2) QT prolongation: Plan: Repeat EKG for stability shows QTc of 483, patient with borderline prolonged QT on admission with a low in 450s Zofran previously stopped, hold QT prolonging medications Suspect QT prolongation from her Diflucan treatment which was anticipated to be continued until September 20 per [facility] ID. Given variable and borderline increased QT consult placed to [facility] infectious disease who is familiar with her case on whether consideration/switch to another antifungal agent would be appropriate. Patient moved to medical telemetry for monitoring (3) Acute diastolic CHF (congestive heart failure): Plan: Improved, continues to appear euvolemic BMP daily Reassess daily TTE: EF 55-60%, normal LV function, mild increased pulmonary pressure (4) Shortness of breath: Plan: -Likely combination of acute diastolic CHF with PEs. Treatment as noted in CHF/pulmonary emboli sections Patient improved with no symptoms today (5) Pulmonary emboli: Plan: High prob on VQ scan. -was not candidate for CTA chest due to high Creatinine. - started Eliquis 10mg BID on 05/25/21. Plan 10mg BID x 7 days, then 5mg BID thereafter. -plan 6 months of anticoagulation 2/2 provoked w/ NUMEROUS surgeries since Nov 2020 along with ICU stays, severe immobility, etc. (6) Edema: Plan: 2nd to severe hypoalbuminemia and #1. nearly resolved. (7) Anemia: Plan: -Tx 1 unit PRBC on hospital day #1. -heme neg stool. -H/H stable since. -Vitamin b12 elevated at 1225. Folate normal at 13.40. Iron normal at 57. Transferrin low at 153. -Transferrin sat 26%. -Suspect her anemia is mostly from anemia of chronic disease. -Benefit from some iron supplementation at discharge despite normal saturation/iron (8) Acute renal failure: Plan: -Patient developed ARF/BEV ~05/02/21. -At the time of admission to [facility] in mid-April her creatinine was 6+. -Was 4.8 at time of discharge from [facility] on 05/18/21. -Baseline Cr 1 per our records. -u/a with granular casts - c/w ATN. Suspect her septic shock, hypotension, etc all played a role in her BEV development in April. -Cr continues to downtrend, 05/28 1.42 from 1.66 05/27 - diuretics stopped. - good UOP. - Daily BMP. (9) Status post right hip replacement: Plan: -Initial surgery 11/2020. -revision 01/2021. -explantation of old hardware 03/25/21. -additional I & D's for septic hip -- see admission H/P. (10) Tobacco use disorder: Plan: - in remission while in prolonged illness (11) GERD (gastroesophageal reflux disease): Plan: -PPI daily -carafate added this admission as well (12) Hypertension: Plan: -Now with midodrine dependent HYPOtension. - cortisol level 18. -cont midodrine (13) History of prediabetes: Plan: -a1c 6.1% in early January 2021. -glucose <100 since admission. -controlled. (14) COPD (chronic obstructive pulmonary disease): Plan: -no exacerbation at this time. (15) Hypotension: Plan: resolved see #11 (16) VRE infection (vancomycin resistant Enterococcus): Plan: -VRE UTI at [place] in late April 2021. -treated w/ 7+ days of IV zosyn. -contact precautions. - urine cx again here with VRE. it is now resistant to zosyn; ONLY SENSITIVE to DAPTOMYCIN - LIkely colonized. - no symptoms of UTI at this time thus WOUND NOT TREAT (no fever, normal wbc co unt, no UTI symptoms). (17) C. difficile enteritis: Plan: -received documentation from [place] she was indeed + for c. diff just prior to early May discharge. -10 day course of vanco QID complete 05/31 -stools have normalized. -contact precautions. (18) Depression with anxiety: Plan: Continue wellbutrin 100mg BID 05/24. Continue buspar 5mg tid prn anxiety. - Defer SSRI due to QT interaction with diflucan (19) Hyperkalemia: Plan: -2nd to BEV. -resolved (20) Severe protein-calorie malnutrition: Plan: -reported 20+ pounds weight loss of late. -albumin <2. -nutrition consult appreciated. - liberalized diet to encourage nutrition (21) Candidal esophagitis: Plan: -dx on 05/03/21 EGD. -remains on diflucan which is also being used for oj albicans that grew from right hip in April. -nystatin solution for any oral thrush. (22) Hypomagnesemia: Plan: repleted/resolved repeat MG check in AM (23) DVT prophylaxis: Plan: - eliquis BID - cont PT/OT - anticipate d/c to [facility] for rehab (24) Chronic renal failure, stage 3b: Admission and Anticipated Discharge Date Admission Date: May 20, 2021 Results & Data Results & Data ([facility]) Vital Signs (Past 12 Hours) Vital Signs Temp Pulse Resp BP Pulse Ox 05/29/21 03:11 36.7 C 85 18 107/69 95 05/28/21 22:40 36.7 C 88 18 90/52 L 94 05/28/21 19:16 36.7 C 75 18 108/69 94 PG Care Time/CCT Total # of Minutes Spent Total Time Spent with Patient: Total time spent is greater than 50% in coordination of care (as documented) at patient's floor/unit and/or counseling patient: Coding Diagnoses Septic arthritis of hip M00.9 QT prolongation R94.31 Acute diastolic CHF (congestive heart failure) I50.31 Shortness of breath R06.02 Pulmonary emboli I26.99 Edema R60.9 Anemia D64.9 Anemia type: unspecified type Acute renal failure N17.9 Acute renal failure type: unspecified Status post right hip replacement Z96.641 Tobacco use disorder F17.200 GERD (gastroesophageal reflux disease) K21.9 Hypertension I10 History of prediabetes Z87.898 COPD (chronic obstructive pulmonary disease) J42 COPD type: chronic bronchitis Chronic bronchitis type: unspecified Hypotension I95.9 VRE infection (vancomycin resistant Enterococcus) A49.1; Z16.21 C. difficile enteritis A04.72 Depression with anxiety F41.8 Hyperkalemia E87.5 Severe protein-calorie malnutrition E43 Candidal esophagitis B37.81 Hypomagnesemia E83.42 DVT prophylaxis Z29.9 Chronic renal failure, stage 3b N18.32 (1) Anemia Anemia type: unspecified type Qualified Code(s): D64.9 - Anemia, unspecified (2) Acute renal failure Acute renal failure type: unspecified Qualified Code(s): N17.9 - Acute kidney failure, unspecified (3) COPD (chronic obstructive pulmonary disease) COPD type: chronic bronchitis Chronic bronchitis type: unspecified Qualified Code(s): J42 - Unspecified chronic bronchitis
[2021-05-29 07:37] LABS: BUN Creatinine Ratio 4.2 (10-20); Calcium 9.5 mg/dl (8.5-10.1); Creatinine Clr Calc Pharmacy 43.3 ml/min; Est GFR (African American) 46.1 ml/min; Est GFR (Non-African American) 39.8 ml/min; Potassium 4.5 mmol/L (3.5-5.1)
[2021-05-29 07:38] LABS: Basophils # (auto) 0.08 K/uL (0-0.2); Basophils % (auto) 1.1 %; Eosinophils # (auto) 0.53 K/uL (0-0.5); Eosinophils % (auto) 7.1 %; Immature Granulocytes # (auto) 0.05 K/uL (0.00-0.02); Immature Granulocytes % (auto) 0.7 %; Lymphocytes # (auto) 3.48 K/uL (1.2-3.4); Lymphocytes % (auto) 46.3 %; Monocytes # (auto) 1.04 K/uL (0.11-0.59); Monocytes % (auto) 13.8 %; Neutrophils # (auto) 2.33 K/uL (1.4-6.5)
[2021-05-29] MEDS ORDERED: LORazepam 0.5 MG TAB PO STA (08:51)
[2021-05-29] MEDS: APIXABAN 5 MG TABLET PO SCH (08:52)
[2021-05-29] MEDS: FLUCONAZOLE 100 MG TAB PO SCH (08:53)
[2021-05-29] MEDS: ATORVASTATIN 40 MG TAB PO SCH (08:53)
[2021-05-29] MEDS: busPIRone 5 MG TAB PO PRN (08:53)
[2021-05-29] MEDS: MIDODRINE HCL 2.5 MG TAB PO SCH ×2 (08:54→12:29)
[2021-05-29] MEDS: MULTIVITAMIN TAB PO SCH (08:54)
[2021-05-29] MEDS: MAGNESIUM OXIDE 400 MG TAB PO SCH (08:54)
[2021-05-29] MEDS: FLUTICASONE/VILANTEROL 100/25MCG 14 PUFFS/INHALER INH SCH (08:54)
[2021-05-29] MEDS: NYSTATIN SUSP 500,000 U/5 ML UDC PO SCH ×2 (08:55→12:29)
[2021-05-29] MEDS: PANTOprazole 40 MG TAB PO SCH (08:55)
[2021-05-29] MEDS: NYSTATIN POWDER 15GM BTL EXT SCH (08:55)
[2021-05-29] MEDS: SUCRALFATE 1 GM/10 ML UDC PO SCH ×2 (08:56→12:29)
[2021-05-29] MEDS: buPROPion SR 100 MG TABCR PO SCH (08:57)
[2021-05-29] MEDS ORDERED: PYRIDOXINE HCL 50 MG TAB PO SCH (09:00)
[2021-05-29] MEDS: POTASSIUM CHLORIDE CRTAB 20 MEQ TABCR PO SCH (11:05)
--- NOTE | 2021-05-29 21:39 | Discharge Summary ---
Date of Service May 29, 2021 Admission HPI Per Admitting Provider Ms Tello is a very complicated 66yo female with h/o right hip replacement on 12/07/[address] John Live at [facility]. Despite no trauma the patient developed a periprosthetic femur fracture which required Revision of the Anterior Total Hip Arthroplasty with open reduction and internal fixation. This was performed on 01/27/21 at [facility] by Dr Live. Unfortunately she then developed a superficial abscess of the right hip wound in February 2021 and underwent right Hip Irrigation with Debridement on 03/08/21. This was also performed at [facility]. Cultures grew pseudomonas and proteus. She sub sequently had multiple prolonged hospitalizations at [facility] in [place] due to septic right hip. Her first of several [facility] stays was from 03/23 to 03/31. Records indicate she had septic shock 2nd to right prosthetic hip infection. On 03/23 she underwent I & D of the right hip, and on 03/25 she underwent a revision of the right total hip arthroplasty (femur & acetabulum) with open reduction and internal fixation of the greater trochanter fracture and placement of incisional vac. Old hardware was explanted. PICC was placed post- op. She required pressors and was cared for in the ICU during this stay. She was discharged with IV cefepime via PICC line with stop date of 05/05/21 for the antibiotics. Went to rehab following the 03/23 to 03/31 admission at [facility]. Unfortunately required additional hospitalization from 04/15 to 04/24 at [facility] in [place]. Limited records suggest she underwent a repeat I & D of the right hip with wound vac placement on 04/15. Post-op had hypotension and needed pressors once again in the ICU. Cultures from the 04/15 operation grew pseudomonas & oj albicans. Antibiotic plan was changed to IV cefepime until 05/20/21 and dilfucan daily until 09/20/21. On 05/02 she followed up in the outpatient orthopedic clinic in [place]. During that clinic visit she was very weak and lethargic. She was readmitted to [facility] in [place] on 05/02, and stayed there again until 05/18. That stay was due to BEV with creatinine to >5, acute sigmoid diverticulitis, VRE UTI, ?c diff?, and esophagitis. BEV was thought 2nd to ATN from hypotension and/or antibiotics. EGD performed on 05/03 showed candidal esophagitis and possible eosinophilic esophagitis (performed because of patient complaint of chronic nausea, emesis, and abd pain). She was treated with zosyn for much of this stay. When she left [facility] on 05/18 her hemoglobin was 7.2 and her creatinine was 4.8. Upon discharge on 05/18 the antibiotic plan was - * oral vancomycin for 9 additional days (for c diff infection??) * oral once daily fluconazole until 09/20/2021 * cipro until 05/20/21 * no further IV cefepime Upon arrival to [facility] on 05/18/21 she reports feeling short of breath. She doesn't recall having dyspnea while at [facility] during the 05/02 to 05/18 hospitalization. She has had dyspnea at rest but it is much worse with exertion. No cough. Denies fevers. Reports chills, like her "skin is going to come out of her" (?). She has not been vaccinated against COVID-19 but prior COVID tests in [place] have been negative. Currently denies chest pain, pleuritic chest pain, abd pain, nausea, vomiting, or diarrhea. She does report ongoing anorexia. No obvious BRBPR. She has had poor appetite, depression, weakness, and fatigue. She remains on midodrine for low blood pressure which has been documented on several of the discharge summaries from her multiple stays at [facility]. She gets teary-eyed about her spring/summer and all the complications she has had. She is non-weightbearing status to the E. She is allowed to weight bear on the LLE, but the leg is so weak that she can't really walk. Never made any progress at [facility] in the last 48 hours. Finally, she states that orthopedics in [place] has told her there is a distinct possibility she may never be able to walk again. Admission Exam Per Admitting Provider Constitutional: + ill appearing and + frail appearing; + not well developed, + not well nourished, no acute distress and no altered mental status Eyes: PERRL, conjunctivae normal, anicteric sclerae ENMT: external ear and nose normal, oropharynx normal Neck: trachea midline, no thyromegaly Respiratory: no respiratory distress Auscultation: + diminished lung sounds (bases), + crackles (bases ) and + wheezes Cardiovascular: Rate/Rhythm: regular rate and regular rhythm Heart Sounds: normal S1 and normal S2; no murmur Vessels: + JVD (mild), posterior tibial pulses present and dorsalis pedis pulses present Extremities: + edema (2-3+ b/l legs ) Gastrointestinal (Abdomen): normal bowel sounds, soft, nontender, no hepatosplenomegaly Musculoskeletal: right hip -- 2 large linear incisions; top-most incision has a small draining wound/ulceration (serous drainage only); no cellulitis; no purulence. Skin: no rashes, warm and dry + pallor Neurologic: deep tendon reflexes 2+ bilaterally and moves all extremities (surprisingly her strength b/l hips is 4-5/5 with flexion; arms 5/5 ) Psychiatric: Orientation: alert and oriented x 3 Mood: + depressed mood Lymphatic: no cervical lymphadenopathy Principal Diagnosis Pulmonary Emboli R Hip Septic Arthritis Discharge Exam General: A&Ox3. NAD. Cooperative. Skin: Gluteal cleft pressure ulcer present, dressing in place. Candidal groin rash present. HEENT: Atraumatic, normocephalic. Visual acuity intact. Hearing intact. Pulm: CTAB A&P. -wheezes, -rales, -rhonchi. Symmetrical chest rise. No increase work of breathing. No respiratory distress. Cardiac: RRR, -mrg. Radial pulses intact and symmetrical. Abdominal: Nontender, nondistended, soft. BS present. Extremities: No edema appreciated on exam, right hip with surgical incision intact without dehiscence or purulence, small amount of serous drainage from superior aspect. Overlying skin fold with mild erythema, no discharge. Discharge Data Allergies Allergy/AdvReac Type Severity Reaction Status Date / Time No Known Allergies Allergy Verified 03/23/21 08:02 Consultations 05/20/21 12:27 ED Decision to Admit Stat 05/21/21 15:07 Consult Nutrition Routine 05/28/21 10:58 Consult Infectious Diseases Routine Ordered Studies 05/20/21 13:46 US venous doppler [facility] Stat Hospital Course (1) Pulmonary emboli: Radha Tello is a 66-year-old female with a past medical history of chronic renal failure, acute diastolic CHF, right hip replacement placated by bacterial and fungal septic arthritis status post explantation with completed antibacterial treatment and ongoing antifungal treatment, COPD, GERD, and hyperlipidemia who presented to [facility] on 05/20 for the evaluation of dyspnea and who is been treated for pulmonary emboli. She is being discharged to rehab. To do as outpatient: 1. Continue treatment for pulmonary embolism with Eliquis anticoagulation. Decrease dose from Eliquis 10 mg twice daily to 5 mg twice daily on 06/02, anticipate 6 months of anticoagulation 2. Follow prolonged QT. Recommend weekly BMP plus magnesium serum checks, maintain potassium ~>=4.0 and magnesium of 2.0 and interval EKGs to ensure stability 3. Follow-up with [facility] infectious disease and orthopedic specialists 4. Continue to follow volume status, diuresis as clinically indicated 5. Complete 10-day treatment course with vancomycin 125 mg p.o. 4 times daily for C. difficile, clinically improved at discharge, 10-day treatment course complete 06/01/2021 Pulmonary embolism Admission patient admitted with shortness of breath/dyspnea and appeared clinically volume overloaded on admission. Initial chest x-ray showed pulmonary edema, she was treated with Bumex with steady clinical improvement. Echo showed elevated right ventricular systolic pressure. Lower extremity Dopplers were negative for DVT, CTA chest was not able to be obtained due to BEV. A VQ scan was ordered for pulmonary embolism. VQ scan returned high probability for pulmonary embolism and patient was subsequently treated with anticoagulation with Eliquis. Continue Eliquis twice daily until 06/01/2021, then decrease to 5 mg twice daily Patient with multiple provoking risk factors including ICU stays, immobility, and surgical procedures. Recommend 6 months of anticoagulation at this time. (2) Septic arthritis of hip: Patient has a history of septic arthritis of the right hip. She had multiple surgeries at [facility] in March and April, and ultimately had right hip explantation. Cultures showed Pseudomonas and Proteus infection, she was treated with IV cefepime and ciprofloxacin which was discontinued on 05/20/2021 prior to admission. Cultures also returned Oj albicans and per [facility] infectious disease this should be continued on Diflucan until 09/20/2021. EKG during admission showed QT prolongation to approximately 480, repeat EKG initially improved and then persisted at approximately 480. This was discussed as noted in QT prolongation suction, patient continued on Diflucan. Patient is 100% nonweightbearing to right lower extremity, and will continue to follow with [facility] orthopedics after discharge. (3) QT prolongation: Patient was noted to have QT prolongation with QTc of 483 during admission. Repeat EKG decreased to 450, and then returned to approximately 480. QT prolonging meds were avoided, this is likely due to her treatment with Diflucan. This was discussed with [facility] infectious disease, given the pat ient's stability for several weeks on Diflucan she was thought to be relatively low risk and that there was no reasonable alternative antifungal which did not affect QT. Furthermore her kidney function showed steady improvement, likely to further improve tolerance to the medication. She is continued on Diflucan, weekly BMP measurements to maintain magnesium of at least 2 and potassium of 4 and EKG checks to ensure QT stability are recommended. (4) Acute diastolic CHF (congestive heart failure): Patient was admitted with imaging and clinical picture consistent with volume overload and a chest x-ray which showed pulmonary edema. She was treated with diuresis, and had progressive clinical improvement. She was found to have comorbid pulmonary emboli which were treated as noted above. Her TTE showed an EF of 55 to 60%, normal LV function, increased pulmonary pressure. She continued to diurese adequately during admission and was clinically euvolemic at time of discharge. She was discharged to continue her [employer] medication regimen (5) Anemia: Patient was found to be anemic with a hemoglobin of 7.6 on admission. She received 1 unit of packed red blood cells with appropriate rise to 8.7. Her hemoglobin remained stable and gradually up trended to 10.0-day of discharge. She did not have clinical signs of bleeding during admission. Her anemia was most likely felt to be due to chronic disease. Vitamin B12 1225, folate 13.4 Iron normal at 57, transferrin low at 153, transferrin saturation 26% Stool was heme-negative during admission (6) Acute renal failure: -Patient developed ARF/BEV ~05/02/21. -At the time of admission to [facility] in mid-April her creatinine was 6+. -Was 4.8 at time of discharge from [facility] on 05/18/21. -Baseline Cr 1 per our records. -u/a with granular casts - c/w ATN. Suspected 2/2 her septic shock, hypotension, etc all played a role in her BEV development in April. -Creatinine continues to downtrend during admission, she tolerated diuresis for fluid overload well, creatinine was 1.37-day of discharge. - She maintained good urine output throughout admission. (7) Status post right hip replacement: -Initial surgery 11/2020. -revision 01/2021. -explantation of old hardware 03/25/21. -additional I & D's for septic hip -- see admission H/P. (8) Tobacco use disorder: - in remission while in prolonged illness (9) GERD (gastroesophageal reflux disease): -PPI daily -carafate added this admission as well (10) Hypertension: -Now with midodrine dependent HYPOtension. - cortisol level 18. -Per tensive with midodrine, continue 2.5 mg p.o. 3 times daily (11) History of prediabetes: -a1c 6.1% in early January 2021. -glucose <100 since admission. -To maintain adequate glycemic control throughout admission (12) COPD (chronic obstructive pulmonary disease): -no exacerbation at this time. (13) VRE infection (vancomycin resistant Enterococcus): -VRE UTI at [place] in late April 2021. -treated w/ 7+ days of IV zosyn. -contact precautions. - urine cx again here with VRE. it is now resistant to zosyn; ONLY SENSITIVE to DAPTOMYCIN - LIkely colonized. - no symptoms of UTI at this time thus was not treated (no fever, normal wbc count, no UTI symptoms) and would not treat unless clinical symptoms develop (14) C. difficile enteritis: -received documentation from [place] she was indeed + for c. diff just prior to early May discharge. -10 day course of vanco QID started, continue Vanco 125 mg p.o. 4 times daily with 10-day course complete 05/31 -stools normalized during admission -contact precautions. (15) Depression with anxiety: Continue wellbutrin 100mg BID 05/24. Continue buspar 5mg tid prn anxiety. - Defer SSRI due to QT interaction with diflucan (16) Hyperkalemia: -2nd to BEV. -resolved during admission (17) Severe protein-calorie malnutrition: -reported 20+ pounds weight loss with poor appetite and albumin less than 2 -nutrition consult appreciated. - liberalized diet to encourage nutrition (18) Candidal esophagitis: -dx on 05/03/21 EGD. -remains on diflucan which is also being used for oj albicans that grew from right hip in April. -nystatin solution for any oral thrush. (19) Hypomagnesemia: Repleted during admission, improved with repletion (20) DVT prophylaxis: Patient on Eliquis for pulmonary embolism as noted above Total Time Total Time Spent Total Time Spent (In Minutes): Total time spent preparing discharge approximately 60 minutes including patient discussion, facilitation of resources, lab review, and documentation Discharge Plan Discharge Items Patient Disposition: Transfer Inpatient Rehab Fac Reason For Visit: ACUTE/CHRONIC ANEMIA, BEV, DYSPNEA Discharge Diagnosis: Pulmonary embolism Activity: Per Instructions section Non-emergency contact: Primary Care Provider and Specialist Call non-emergency contact if: you have any medication questions, your symptoms worsen, your pain is worsening, you have a fever and your rectal temperature is above 100.4 Follow-up/Referrals: Jose Elias Valdez MD [Primary Care Provider] - Salvador Sylvester MD [Physician] - Diet: Regular Addtl Attending Provider Instructions: Your admit to the hospital for shortness of breath. You are found to have pulmonary emboli likely contributing to a CHF exacerbation. You have been treated with blood thinners and done well during your admission. You are being discharged to acute rehab and have had medications added as below. You have been started on a blood thinner, Eliquis. Please take Eliquis (apixaban) 10 mg twice daily. At this time anticipate 6 months of anticoagulation treatment, however this may change and will be reevaluated on follow-up with your outpatient providers. This medication is a blood thinner which will make you bleed easier. You experience any small cuts or nosebleeds apply direct firm pressure for 10 minutes without checking. If you experience any larger bleeds, bleeding that is unable to be stopped with 10 minutes of pres sure, concerning bleeds, lightheadedness, dizziness, or other new/concerning symptoms please contact your primary care physician or call 911 for evaluation in the emergency department. Please continue taking Wellbutrin 100 mg twice daily and BuSpar 5 mg 3 times daily as needed for anxiety. SSRI medications (another type of anxiety/depression medicine) should not be used due to a prolonged QT interval which was noted during your admission. If you experience any lightheadedness, chest pain, shortness of breath, dizziness, mood changes, thoughts of hurting yourself or others, or worsening anxiety/depression please contact your primary care provider or call 911 for evaluation in the emergency department. You are noted to have a prolonged QT interval during your admission. This is a measurement of a certain part of your heart rhythm, and various medications can cause this interval to be increased. Your fluconazole for your hip infection can cause an increased QT interval, this was rechecked during admission and remained stable. Your case was discussed with [facility] infectious disease, it is not recommended to change this medication at the time but you should avoid other QT prolonging meds including Zofran, Reglan, Phenergan, and certain other medications. Your electrolytes should be checked while this remains increased, you should have an electrolyte check within 1 week and repeat EKGs to make sure this interval does not continue to increase. You were diagnosed with C. difficile colitis. Your bowel movements normalized, you should complete a 10-day course of vancomycin antibiotics. Please take vancomycin 125 mg by mouth 4 times daily until 05/31. If your symptoms return, worsen, or you have concerns please discuss this with your follow-up physician. If you develop any new or worsening symptoms including fever, chills, sweats, chest pain, chest pressure, difficulty breathing, uncontrolled nausea/vomiting, rash, wheezing, passing out or nearly passing out, bleeding, black/bloody bowel movements, or other new or concerning symptoms please call your primary care physician at [phone], or call 911 for re-evaluation in the emergency department if you are very concerned. A followup appointment is being scheduled for you with [facility] in [place]. [facility] is assisting in setting up this appointment for you, if you do not recieve confirmation of the appointment from them within 1 week please have them call the [facility] office at . Addtl [employer] Provider Instructions: Please maintain 100% NWB (nonweight bearing) to RIGHT hip until advised otherwise by orthopaedics. Pending Studies at Discharge: No Stand-Alone Forms: My [employer] Skilled Items Patient informed of condition?: Yes DNR: Yes Discharge Level of Care: Acute rehab Communicable Disease: No Discharge Prognosis: Stable Lines: None Urinary Catheter: No Medications and DC Order Prescriptions: New bupropion HCl 100 mg Tablet Sustained-Release 12 Hr 100 mg PO BID 30 Days Qty: 60 RF: 0 buspirone 5 mg Tablet 5 mg PO TID PRN (Reason: anxiety) Qty: 90 RF: 0 Eliquis 5 mg Tablet 10 mg PO BID 30 Days Qty: 120 RF: 2 nystatin [Nystop] 100,000 unit/gram Powder 1 applic EXT TID PRN (Reason: oj) 30 Days Qty: 15 RF: 0 vancomycin 125 mg capsule 125 mg PO Q6H 3 Days Qty: 12 RF: 0 Continued Combivent Respimat 20-100 mcg/actuation mist 1 puff INH QID Qty: 4 RF: 3 fluticasone propion-salmeterol [Advair Diskus] 250-50 mcg/dose blister with device 1 inh inhalation BID Qty: 180 RF: 3 fluconazole [Diflucan] 200 mg tablet 200 mg PO QAM RF: 0 midodrine 2.5 mg tablet 2.5 mg PO TID RF: 0 acetaminophen [Tylenol] 325 mg Tablet 650 mg PO Q4H RF: 0 polyethylene glycol 3350 [Miralax] 17 gram Powder In Packet 17 g PO QDL RF: 0 sennosides-docusate sodium [Senokot-S] 8.6-50 mg Tablet 1 tab-cap PO QDL RF: 0 famotidine [Pepcid] 20 mg Tablet 20 mg PO QAM RF: 0 magnesium hydroxide [Milk of Magnesia] 400 mg/5 mL Suspension 30 ml PO DAILY RF: 0 bisacodyl [Dulcolax (bisacodyl)] 10 mg Suppository 10 mg AZ DAILY RF: 0 pantoprazole [Protonix] 40 mg Tablet,Delayed Release (Dr/Ec) 40 mg PO DAILYBB RF: 0 Fleet Enema 19-7 gram/118 mL Enema 133 ml AZ DAILY RF: 0 docusate sodium [Colace] 100 mg Capsule 100 mg PO BID RF: 0 ondansetron 4 mg Tablet,Disintegrating 4 mg PO Q6H RF: 0 oxycodone [Roxicodone] 5 mg tablet 5 mg PO Q6H RF: 0 Breo Ellipta 100-25 mcg/dose Blister With Device 1 inh INHALATION QAM RF: 0 atorvastatin [Lipitor] 40 mg tablet 40 mg PO QDD RF: 0 aspirin [Aspirin Low Dose] 81 mg tablet,delayed release (DR/EC) 81 mg PO QAM RF: 0 albuterol sulfate [ProAir HFA] 90 mcg/actuation HFA aerosol inhaler 2 inh INHALATION DAILY RF: 0 Discontinued ciprofloxacin HCl [Cipro] 500 mg Tablet 500 mg PO QAM RF: 0 vancomycin [Vancocin] 125 mg Capsule 125 mg PO Q6H RF: 0 heparin (porcine) 5,000 unit/mL Syringe 5,000 unit SUBCUT Q8H RF: 0 Discharge Orders: Discharge Order (Routine); Ordered 05/29/21 Ordered By: Eric Polo Admission Data Admit Date/Time: 05/20/21 13:30 Attending Provider: Eric Polo Admit Provider: Brandon Collins Primary Care Provider: Jose Elias Valdez Other [facility]iders: [facility] ; Brandon Collins ; [id number],CAPPT ; Salvador Sylvester ; Breann Velasco ; Nicko Duran I. ; Raj James II ; Yarelis Burk ; Tyler Graham Other Interventions: Discharge Summary Assessment (RN) Last Done: 05/29/21 11:27 Coding Level of Care Code D/C DAY MANAGEMENT >30 MINS Diagnoses Septic arthritis of hip M00.9 QT prolongation R94.31 Acute diastolic CHF (congestive heart failure) I50.31 Pulmonary emboli I26.99 Anemia D64.9 Anemia type: unspecified type Acute renal failure N17.9 Acute renal failure type: unspecified Status post right hip replacement Z96.641 Tobacco use disorder F17.200 GERD (gastroesophageal reflux disease) K21.9 Hypertension I10 History of prediabetes Z87.898 COPD (chronic obstructive pulmonary disease) J42 COPD type: chronic bronchitis Chronic bronchitis type: unspecified VRE infection (vancomycin resistant Enterococcus) A49.1; Z16.21 C. difficile enteritis A04.72 Depression with anxiety F41.8 Hyperkalemia E87.5 Severe protein-calorie malnutrition E43 Candidal esophagitis B37.81 Hypomagnesemia E83.42 DVT prophylaxis Z29.9
== END 2021-05-29 13:46 | DRG 175 ==
LOC: ED 10:43 → SUATTDRO 13:30 → 2S 13:30 → 3E 05-26 17:56 → 2W 05-28 15:34

== ENCOUNTER 2021-09-02 16:14 | Observation (INO) ==
[2021-09-02] MEDS ORDERED: ONDANSETRON INJ 2 MG/ML 2 ML VIAL IV STA (16:26)
[2021-09-02 16:59] LABS: Hematocrit (blood only) 43.3 % (37-47); Hemoglobin 13.9 g/dL (12.0-16.0); Mean Corpuscular Hemoglobin 30.3 pg (25-34); Mean Corpuscular Hgb Conc 32.1 g/dL (32-36); Mean Corpuscular Volume 94.3 fL (80-100); Mean Platelet Volume 10.7 fL (7.4-10.4); Platelet Count 559 K/uL (130-400); RDW Coefficient of Variation 18.5 % (11.5-14.5); RDW Standard Deviation 64.4 fL (36.4-46.3); Red Blood Count 4.59 M/uL (4.2-5.4); White Blood Count 11.23 K/uL (4.8-10.8)
[2021-09-02 17:17] LABS: Alanine Aminotransferase 24 U/L (12-78); Albumin Level 2.5 gm/dl (3.4-5.0); Aspartate Aminotransferase 48 U/L (15-37); BUN Creatinine Ratio 7.7 (10-20); Blood Urea Nitrogen 11 mg/dl (7-18); Calcium 9.8 mg/dl (8.5-10.1); Carbon Dioxide 20 mmol/L (21-32); Chloride 104 mmol/L (98-107); Est GFR (Non-African American) 36.3 ml/min; Glucose 208 mg/dl (70-99); Lipase 69 U/L (73-393); Potassium 4.1 mmol/L (3.5-5.1); Sodium 137 mmol/L (136-145)
[2021-09-02 17:20] LABS: Albumin Globulin Ratio 0.6 (0.9-2); Alkaline Phosphatase 94 U/L (45-117); Bilirubin,Total 0.3 mg/dl (0.2-1); Globulin 4.5 gm/dl (2.5-4.0)
[2021-09-02] MEDS ORDERED: PROMETHAZINE 12.5 MG/50.5 ML BAG IV STA ×2 (18:44→21:06)
--- NOTE | 2021-09-02 18:50 | Emergency Department Note ---
History of Present Illness General Chief complaint: GI Assessment Stated complaint: NAUSEA,DEHYDRATED,DIVERTICULITIS,KIDNEY PAIN,REF Time Seen by Provider: 09/02/21 18:36 Source: patient and family (Niece who is caregiver) History of Present Illness Provider complaint: Diarrhea Onset (ago): day(s) Location: abdomen Pain Consistency: + intermittent Maximum Pain Intensity: 10 Quality: + other (Loose and watery) Relieved By: + none Associated symptoms: + nausea/vomiting and + weakness; no chest pain, no cough, no fever/chills or no shortness of breath This is a 66-year-old female who presents with diarrhea for the past 10 days. The diarrhea is loose and watery. She was placed on Cipro and Flagyl for 10 days by her doctor for presumed diverticulitis as she has had diverticulitis in the past. She has been on no recent antibiotics prior to this. She does not drink alcohol. Her diarrhea improved for 2 days but then came back today. She denies any blood in her diarrhea. She has not had any abdominal pain other than in the emergency department she complained of some pain in the right lower abdomen. She has had no fevers but states that she started vomiting yesterday. She is unable to keep down her pills. She has not been urinating as much and so her niece was concerned that she might have some kidney problems or dehydration. She denies any cough or cold symptoms, chest pain or shortness of breath. She did have a history of diverticulitis earlier this year and was admitted to [facility]. She did develop C. difficile colitis after that. Home Medications Medication Instructions Recorded Confirmed Type fluconazole 200 mg tablet 400 mg PO QAM 04/28/21 09/02/21 History (Diflucan) albuterol sulfate 90 mcg/actuation 2 inh INHALATION DAILY 05/20/21 09/02/21 History aerosol inhaler (ProAir HFA) aspirin 81 mg tablet,delayed 81 mg PO QAM 05/20/21 09/02/21 History release (Aspirin Low Dose) atorvastatin 40 mg tablet (Lipitor) 40 mg PO QDD 05/20/21 09/02/21 History docusate sodium 100 mg capsule 100 mg PO BID PRN 05/20/21 09/02/21 History (Colace) fluticasone furoate 100 1 inh INHALATION QAM 05/20/21 09/02/21 History mcg-vilanterol 25 mcg/dose inhalation powder (Breo Ellipta) naloxone 4 mg/actuation nasal 4 mg INTRANASAL DIRECTED PRN ea 06/13/21 09/02/21 History spray (Narcan) apixaban 5 mg tablet (Eliquis) 5 mg PO BID 30 Days #60 tab 06/14/21 09/02/21 Rx clotrimazole-betamethasone 1 1 applic TOPICAL BID 14 Days #45 g 06/14/21 09/02/21 Rx %-0.05 % topical cream midodrine 2.5 mg tablet 2.5 mg PO BID #60 tab 06/14/21 09/02/21 Rx ipratropium 20 mcg-albuterol 100 1 puff INH QID #4 g 07/18/21 09/02/21 Rx mcg/actuation mist for inhalation (Combivent Respimat) pantoprazole 40 mg tablet,delayed 40 mg PO DAILYBB #90 tab 08/11/21 09/02/21 Rx release (Protonix) ciprofloxacin HCl 500 mg tablet 500 mg PO BID 10 Days #20 tab 08/23/21 09/02/21 Rx metronidazole 500 mg tablet 500 mg PO TID 10 Days #30 tab 08/23/21 09/02/21 Rx oxycodone 5 mg tablet (Roxicodone) See Rx Instructions PO .COMPLEX 09/01/21 09/02/21 Rx #210 tab ondansetron 4 mg disintegrating 4 mg PO Q6H PRN 09/02/21 09/02/21 History tablet Allergies Allergy/AdvReac Type Severity Reaction Status Date / Time No Known Allergies Allergy Verified 09/02/21 19:21 Past Med/Surg History Medical History Acute renal failure Asthma PT STATES TAKES RESCUE INHALER DAILY Carotid stenosis, left S/P L CEA (02/18/20) (Prior to CEA patient had 80% LICA stenosis ) Cerebral aneurysm Per records, pt unaware No significant aneurysm noted with head CTA and brain MRI from 01/2020 CKD (chronic kidney disease) stage III COPD (chronic obstructive pulmonary disease) CVA (cerebral vascular accident) CVA 02/11/20- no residual effects, follows with [facility], patient was on plavix until ~1 month after left CEA surgery, now on ASA 81mg Depression with anxiety GERD (gastroesophageal reflux disease) History of Meniere's disease History of prediabetes HGBA1C 6.1% on 01/28/21 History of revision of total replacement of right hip joint 03/25/21 - [facility]; explantation old hardware, wound vac placement. History of septic shock 03/2021 - due to septic R hip; 04/2021 - again due to septic R hip - hospitalized [facility] each admission. Pseudomonas, proteus, oj albicans. Hyperlipidemia Hypertension Osteoarthritis Surgical History H/O carotid endarterectomy Left CEA: 02/18/20: Grade view 1 with head lift, MAC#3, ETT 7.0 at [facility] History of appendectomy History of bilateral tubal ligation History of brain surgery 5 years ago (Meniere's treatment/[facility]) History of History of cataract surgery R/L History of section x1 History of cholecystectomy History of cholecystectomy History of colonoscopy History of esophagogastroduodenoscopy (EGD) History of incision and drainage right hip - multiple I/D's, 03/2021-04/2021; [facility]. History of tonsillectomy History of tooth extraction History of total hip arthroplasty RT> with repair S/P carotid endarterectomy Status post revision of total hip replacement (~01/2021) Family History Mother Diabetes Family history of diabetes mellitus Sister Diabetes Family history of diabetes mellitus Arterial thrombosis Amputation of leg Father Heart disease Lung disease Other No family history of adverse response to anesthesia Denies family history of Ovarian cancer Prostate cancer Myocardial infarction Breast cancer Colorectal cancer Social History Smoking Status: Current every day smoker Tobacco Type: Cigarettes Age Started Using Tobacco: 17; Age Quit Using Tobacco: 65; packs per day: 1; Years Smoked: 55; Second Hand Exposure: Yes; Do You Dip or Chew Tobacco: No; Tobacco Cessation Education Requested by Patient: No Hx Alcohol Use: No Hx Substance Use: Yes Last Used Substance: Days (ago) Last Used Substance Other:: 08/31/2021 Substance Use Type Other:: daily use Preferred Language: Mongolian Communication Ability: Effective Visual Impairment: No Limitations Hearing Ability: Normal Butt Presser Required: No Beliefs That Will Affect Care: None marital status: Current Living Situation: Family Current Living Situation Comment: [facility] (normally with son and his fiance in her appt) current occupational status: retired 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 and A total of 10 systems reviewed and were otherwise negative Physical Exam Vital Signs Vital Signs - 24 hr 09/02/21 16:21 09/02/21 18:52 09/02/21 19:00 Temperature 36.5 C Temperature Source Temporal Artery Scan Pulse Rate 138 H 118 H 110 H Pulse Rate from SpO2 Sensor 110 H Respiratory Rate 20 22 20 Respiratory Effort / Characteristics Non-Labored Spontaneous Respiratory Depth Normal Respiratory Pattern Regular Blood Pressure 138/96 122/70 Blood Pressure Mean 110 87 Blood Pressure Position Sitting Pulse Oximetry 96 96 Oxygen Delivery Method Room Air Room Air Sepsis Recent Fever Within 48 Hours No Sepsis New/Unexplained Change in Mental Status N/A Sepsis Action Taken by Nursing No Action Required 09/02/21 20:00 09/02/21 21:00 09/02/21 22:00 Temperature Temperature Source Pulse Rate 105 H 98 H 96 H Pulse Rate from SpO2 Sensor 109 H 100 H 97 H Respiratory Rate 23 24 21 Respiratory Effort / Characteristics Respiratory Depth Respiratory Pattern Blood Pressure Blood Pressure Mean Blood Pressure Position Pulse Oximetry 97 96 96 Oxygen Delivery Method Sepsis Recent Fever Within 48 Hours Sepsis New/Unexplained Change in Mental Status Sepsis Action Taken by Nursing Constitutional: Vital signs reviewed. Eyes: Pupils are equal round reactive to light. Conjunctiva are noninjected. ENT: Pharynx is clear without erythema or exudate. Mucous membranes are dry. Neck supple without meningeal signs. Respiratory: Clear to auscultation bilaterally. Breath sounds are equal bilat erally. Cardiovascular: Tachycardic. Regular rhythm. GI: Soft, nondistended with mild right lower quadrant tenderness. No guarding. Bowel sounds are present. Musculoskeletal: No lower extremity tenderness. Integumentary: No cyanosis. or jaundice. Neurological: The patient is awake and alert. No focal deficits. Psychiatric: Normal affect. Not anxious appearing. Course Administered Medications Sodium Chloride (Nss) 500 mls @ 125 mls/hr IV .Q4H JOHANNA Stop: 10/02/21 18:44 Last Admin: 09/03/21 00:38 Dose: 125 mls/hr Documented by: [id number] Infusion: 09/02/21 23:05 Dose: 0 mls/hr Documented by: [id number] Admin: 09/02/21 19:06 Dose: 125 mls/hr Documented by: [id number] Discontinued Medications Promethazine HCl (Phenergan) 12.5 mg in 50.5 mls @ 202 mls/hr IV NOW STA Stop: 09/02/21 18:58 Last Infusion: 09/02/21 19:25 Dose: 0 mls/hr Documented by: [id number] Admin: 09/02/21 19:06 Dose: 202 mls/hr Documented by: [id number] Promethazine HCl (Phenergan) 12.5 mg in 50.5 mls @ 202 mls/hr IV NOW STA Stop: 09/02/21 21:20 Last Infusion: 09/02/21 23:05 Dose: 0 mls/hr Documented by: [id number] Admin: 09/02/21 21:31 Dose: 202 mls/hr Documented by: [id number] Potassium Chloride (K Marco / Wtr) 10 meq in 100 mls @ 100 mls/hr IV Q1H STA Stop: 09/02/21 22:38 Last Admin: 09/02/21 21:44 Dose: Not Given Documented by: [id number] Ondansetron HCl (Ondansetron Inj 2 Mg/Ml 2 Ml Vial) 4 mg IV NOW STA Stop: 09/02/21 16:27 Last Admin: 09/02/21 16:48 Dose: 4 mg Documented by: [id number] Medical Decision Making Differential Diagnosis C. difficile infection, colitis, diverticulitis, dehydration, BEV, enteritis Medical Records Attestation: I reviewed the patient's medical records. I did perform a limited focused review of portions of the patient's old chart on the electronic medical record. The patient was evaluated by her primary care provider via telehealth August 23 for diarrhea. She was placed on a 10-day prescription for Cipro and Flagyl at that time for presumed diverticulitis. Of note she does have a prior history of C. difficile. She was not assessed for C. difficile infection as the patient did not want to go to the hospital. Home Medications Current Medication List: was personally reviewed by me Laboratory Data Attestation: I reviewed the patient's lab results. Result diagrams: 09/02/21 16:45 09/02/21 16:45 Lab Results 09/02/21 09/02/21 09/02/21 Range/Units 16:45 16:45 19:08 WBC 11.23 H (4.8-10.8) K/uL RBC 4.59 (4.2-5.4) M/uL Hgb 13.9 (12.0-16.0) g/dL Hct 43.3 (37-47) % MCV 94.3 (80-100) fL MCH 30.3 (25-34) pg MCHC 32.1 (32-36) g/dL RDW Std Deviation 64.4 H (36.4-46.3) fL RDW Coeff of Crow 18.5 H (11.5-14.5) % Plt Count 559 H (130-400) K/uL MPV 10.7 H (7.4-10.4) fL Neutrophils % (Manual) 33.0 % Lymphocytes % (Manual) 26.1 % Monocytes % (Manual) 6.1 % Neutrophils # (Manual) 3.71 (1.4-6.5) K/uL Total Absolute Neuts 3.71 (1.4-6.5) K/uL Lymphocytes # (Manual) 2.93 (1.2-3.4) K/uL Total Abs Lymphocytes 6.84 H (1.2-3.4) K/uL Monocytes # (Manual) 0.69 H (0.11-0.59) K/uL Large Granular Lymphs 34.8 % # Lrg Granular Lymphs 3.91 K/uL Echinocytes 1+ Sodium 137 (136-145) mmol/L Potassium 4.1 (3.5-5.1) mmol/L Chloride 104 (98-107) mmol/L Carbon Dioxide 20 L (21-32) mmol/L Anion Gap 12.0 H (3-11) BUN 11 (7-18) mg/dl Creatinine 1.48 H (0.6-1.2) mg/dl Est Cr Clr Drug Dosing Not Reportable Est GFR ( Amer) 42.0 ml/min Est GFR (Non-Af Amer) 36.3 ml/min BUN/Creatinine Ratio 7.7 L (10-20) Glucose 208 H (70-99) mg/dl Calcium 9.8 (8.5-10.1) mg/dl Total Bilirubin 0.3 (0.2-1) mg/dl AST 48 H (15-37) U/L ALT 24 (12-78) U/L Alkaline Phosphatase 94 (45-117) U/L Total Protein 7.0 (6.4-8.2) gm/dl Albumin 2.5 L (3.4-5.0) gm/dl Globulin 4.5 H (2.5-4.0) gm/dl Albumin/Globulin Ratio 0.6 L (0.9-2) Lipase 69 L (73-393) U/L SARS-CoV-2, RNA, NAAT NEGATIVE (NEGATIVE) Imaging Data Radiologist's Impression: Abdomen/Pelvis CT 09/02/21 18:[address] WITHOUT CONTRAST CT DOSE: 862.70 mGycm HISTORY: Acute generalized abdominal pain abd pain eval for divertic TECHNIQUE: Multiaxial CT images of the abdomen and pelvis were performed without contrast. A dose lowering technique was utilized adhering to the principles of ALARA. COMPARISON STUDY: Chest radiograph 05/21/2021 FINDINGS: Cardiac chambers are unremarkable. Clear lung bases. Emphysema. No pneumatosis or pneumoperitoneum. Unremarkable spleen with moderate to marked pancreatic atrophy. Degenerative glands are within normal limits. Cholecystect luis. Unremarkable liver. 2 mm nonobstructing calculus of the inferior pole right kidney with punctate calculus of the superior pole. No ureteral calculi or hydronephrosis. Unremarkable urinary bladder with unremarkable uterus and adnexa. The pelvic structures are suboptimally visualized secondary to streak artifact from right hip total joint arthroplasty. Atherosclerosis of the aorta without aneurysm. No adenopathy. Tiny hiatal hernia. Small to moderate duodenal diverticulum. Mild to moderate fecal retention. Colonic diverticulosis. No CT evidence of acute diverticulitis. Appendectomy. Unremarkable soft tissues. No acute fracture. Degenerative changes of the spine, pelvis and left hip. Demineralized appearance of the bones. Avascular necrosis of the left hip. No articular collapse. IMPRESSION: 1. No bowel obstruction or bowel wall thickening. 2. Colonic diverticulosis without acute diverticulitis. 3. Mild to moderate fecal retention. 4. Tiny hiatal hernia. 5. Small nonobstructing right renal calculi. 6. Avascular necrosis of the left femoral head. ACT 112: Negative or not required by law. The above report was generated using voice recognition software. It may contain grammatical, syntax or spelling errors. Electronically signed by: Mani Zapata M.D. 09/02/2021 8:57 PM ECG Data Attestation: I personally reviewed and interpreted this ECG as follows: Indication: + tachycardia Rate (beats per minute): 126 Rhythm: + sinus tachycardia ECG Intervals/blocks: + Prolonged QT ECG [place]: + Normal ECG Findings: no PVCs MDM Narrative I did evaluate the patient as noted above. IV access was established. I did place an order for continuous cardiac monitoring. The monitor showed sinus tachycardia at a rate of 112 bpm. I did order and personally review the patient's 12-lead EKG as described above. She has a prolonged QT interval and no acute ischemic changes. I did treat the patient with Phenergan IV and normal saline IV. I did order and personally reviewed the images of the patient's chest x-ray as described above. I did order a urine analysis. I did order and review the patient's blood work as noted in the electronic medical record. White blood cell count slightly elevated 11.23. Platelets are 559. She is not anemic with a hemoglobin of 13.9. Electrolytes demonstrate a CO2 of 20. Her creatinine is elevated at 1.48. Glucose is elevated 208. Lipase is negative. AST slightly elevated at 48. I did order a CT of the abdomen and pelvis. I did review the images myself as well as the radiology report as described above. There is no evidence of bowel obstruction or diverticulitis. She does have some mild to moderate fecal retention. I did reassess the patient. She still feels very nauseated and is dry heaving. She still feels very weak. She was unable to give us a stool sample for testing for C. difficile. I did discuss the test results with the patient and her niece. She will be hospitalized for further care and evaluation. I did discuss the case with the hospitalist and case hardener. She was given an additional dose of Phenergan IV. Impression & Plan Acute dehydration, Elevated serum creatinine, Intractable vomiting, Diarrhea Discharge Plan Visit Data Chief Complaint: GI Assessment Stated Complaint: NAUSEA,DEHYDRATED,DIVERTICULITIS,KIDNEY PAIN,REF ED Provider: Cole Bello Discharge Problem: Acute dehydration, Elevated serum creatinine, Intractable vomiting, Diarrhea Patient Disposition: Admitted As Inpatient Discharge Instructions Interventions: ED Discharge Assessment Last Done: 09/02/21 23:46
[2021-09-02 19:05] LABS: ALC (manual) 6.84 K/uL (1.2-3.4); ANC (manual) 3.71 K/uL (1.4-6.5); Echinocytes 1+; Large Granular Lymph # (manua 3.91 K/uL; Large Granular Lymph % (manual) 34.8 %; Lymphocytes # (manual) 2.93 K/uL (1.2-3.4); Lymphocytes % (manual) 26.1 %; Monocytes # (manual) 0.69 K/uL (0.11-0.59); Monocytes % (manual) 6.1 %; Neutrophils # (manual) 3.71 K/uL (1.4-6.5)
[2021-09-02] MEDS: SODIUM CHLORIDE 0.9% 500 ML IV SCH (19:06)
--- NOTE | 2021-09-02 20:59 | CT Scan Report ---
ABDOMEN AND PELVIS CT WITHOUT CONTRAST CT DOSE: 862.70 mGycm HISTORY: Acute generalized abdominal pain abd pain eval for divertic TECHNIQUE: Multiaxial CT images of the abdomen and pelvis were performed without contrast. A dose lo wering technique was utilized adhering to the principles of ALARA. COMPARISON STUDY: Chest radiograph 05/21/2021 FINDINGS: Cardiac chambers are unremarkable. Clear lung bases. Emphysema. No pneumatosis or pneumoper itoneum. Unremarkable spleen with moderate to marked pancreatic atrophy. Degenerative glands are with in normal limits. Cholecystectomy. Unremarkable liver. 2 mm nonobstructing calculus of the inferior p ole right kidney with punctate calculus of the superior pole. No ureteral calculi or hydronephrosis. Unremarkable urinary bladder with unremarkable uterus and adnexa. The pelvic structures are suboptima lly visualized secondary to streak artifact from right hip total joint arthroplasty. Atherosclerosis of the aorta without aneurysm. No adenopathy. Tiny hiatal hernia. Small to moderate duodenal diverticulum. Mild to moderate fecal retention. Coloni c diverticulosis. No CT evidence of acute diverticulitis. Appendectomy. Unremarkable soft tissues. No acute fracture. Degenerative changes of the spine, pelvis and left hip. Demineralized appearance of the bones. Avascular necrosis of the left hip. No articular collapse. IMPRESSION: 1. No bowel obstruction or bowel wall thickening. 2. Colonic diverticulosis without acute diverticulitis. 3. Mild to moderate fecal retention. 4. Tiny hiatal hernia. 5. Small nonobstructing right renal calculi. 6. Avascular necrosis of the left femoral head. ACT 112: Negative or not required by law. The above report was generated using voice recognition software. It may contain grammatical, syntax o r spelling errors. Electronically signed by: Mani Zapata M.D. 09/02/2021 8:57 PM
[2021-09-02] MEDS ORDERED: POTASSIUM CHLORIDE / WTR 10 MEQ/100 ML PLCT IV STA (21:39)
--- NOTE | 2021-09-02 22:37 | History & Physical Report ---
Date of Service September 02, 2021 Assessment & Plan (1) Intractable nausea and vomiting: Plan: Intractable nausea and vomiting/history of diverticulitis/history of C. difficile colitis- N.p.o. except essential medications NSS@125 mils per hour x1 L Stool studies pending No antibiotics needed Famotidine 20 mg IV every 12 hours Zofran 4 mg IV every 6 hours as needed Phenergan 12.5 mg IV every 6 hours as needed Suspect her symptoms are more likely related to taking high-dose metronidazole 5 mg p.o. 3 times daily, due to normal work-up, including normal CT scan other than for fecal retention (2) GERD (gastroesophageal reflux disease): Plan: Placed on famotidine 20 mg IV every 12 hours (3) Hyperlipidemia: Plan: Hold atorvastatin while n.p.o. (4) Depression with anxiety: Plan: On no specific treatment (5) COPD (chronic obstructive pulmonary disease): Plan: Continue Combivent 1 puff 4 times daily. DuoNebs every 2 hours as needed (6) Pulmonary emboli: Plan: Continue apixaban 5 mg p.o. twice daily (7) Acute kidney injury superimposed on chronic kidney disease: Plan: BEV on CKD stage III- Creatinine 1.48 upon admission, with baseline 0.93 IV fluids as noted above, repeat laboratories in a.m. (8) Chronic renal failure, stage 3b: Plan: See above (9) Acute dehydration: Plan: IV fluids as noted above Likely secondary to nausea and vomiting which is likely secondary to reaction to high-dose metronidazole History of Present Illness Chief Complaint: The patient presents to the emergency department with complaint of nausea, vomiting, abdominal discomfort, intermittent diarrhea and generalized weakness over the past 10 days Primary Care Provider: Edwin Valdez MD The patient is a 66-year-old female with a past medical history including prediabetes, CKD stage IIIb, diastolic CHF, pulmonary emboli, candidal esophagitis, severe protein calorie malnutrition, tobacco use disorder, Mnire's disease, hyperlipidemia, GERD, chronic cerebral ischemia, carotid artery stenosis, cerebral aneurysm, hypertension, depression with anxiety, and asthma/COPD. She had had a recent admission earlier in the year to [facility] for a case of severe diverticulitis, and secondary C. difficile colitis following the diverticulitis treatment. The C. difficile colitis did respond to oral vancomycin. She had not been having any issues until about 10 days ago when she started develop some abdominal discomfort and occasional loose stools, was concerned that this was recurrent diverticulitis, and was placed on Cipro 500 mg twice daily and Flagyl 500 mg p.o. 3 times daily. Over the past 48 hours she has developed worsening nausea and vomiting, and presents to the ED for assessment Allergies Allergy/AdvReac Type Severity Reaction Status Date / Time No Known Allergies Allergy Verified 09/02/21 19:21 Home Medications Medication Instructions Recorded Confirmed Type fluconazole 200 mg tablet 400 mg PO QAM 04/28/21 09/02/21 History (Diflucan) albuterol sulfate 90 mcg/actuation 2 inh INHALATION DAILY 05/20/21 09/02/21 History aerosol inhaler (ProAir HFA) aspirin 81 mg tablet,delayed 81 mg PO QAM 05/20/21 09/02/21 History release (Aspirin Low Dose) atorvastatin 40 mg tablet (Lipitor) 40 mg PO QDD 05/20/21 09/02/21 History docusate sodium 100 mg capsule 100 mg PO BID PRN 05/20/21 09/02/21 History (Colace) fluticasone furoate 100 1 inh INHALATION QAM 05/20/21 09/02/21 History mcg-vilanterol 25 mcg/dose inhalation powder (Breo Ellipta) naloxone 4 mg/actuation nasal 4 mg INTRANASAL DIRECTED PRN ea 06/13/21 09/02/21 History spray (Narcan) apixaban 5 mg tablet (Eliquis) 5 mg PO BID 30 Days #60 tab 06/14/21 09/02/21 Rx clotrimazole-betamethasone 1 1 applic TOPICAL BID 14 Days #45 g 06/14/21 09/02/21 Rx %-0.05 % topical cream midodrine 2.5 mg tablet 2.5 mg PO BID #60 tab 06/14/21 09/02/21 Rx ipratropium 20 mcg-albuterol 100 1 puff INH QID #4 g 07/18/21 09/02/21 Rx mcg/actuation mist for inhalation (Combivent Respimat) pantoprazole 40 mg tablet,delayed 40 mg PO DAILYBB #90 tab 08/11/21 09/02/21 Rx release (Protonix) ciprofloxacin HCl 500 mg tablet 500 mg PO BID 10 Days #20 tab 08/23/21 09/02/21 Rx metronidazole 500 mg tablet 500 mg PO TID 10 Days #30 tab 08/23/21 09/02/21 Rx oxycodone 5 mg tablet (Roxicodone) See Rx Instructions PO .COMPLEX 09/01/21 09/02/21 Rx #210 tab ondansetron 4 mg disintegrating 4 mg PO Q6H PRN 09/02/21 09/02/21 History tablet Past Med/Surg History Medical History Acute renal failure Asthma PT STATES TAKES RESCUE INHALER DAILY Carotid stenosis, left S/P L CEA (02/18/20) (Prior to CEA patient had 80% LICA stenosis ) Cerebral aneurysm Per records, pt unaware No significant aneurysm noted with head CTA and brain MRI from 01/2020 CKD (chronic kidney disease) stage III COPD (chronic obstructive pulmonary disease) CVA (cerebral vascular accident) CVA 02/11/20- no residual effects, follows with [place] [facility]y, patient was on plavix until ~1 month after left CEA surgery, now on ASA 81mg Depression with anxiety GERD (gastroesophageal reflux disease) History of Meniere's disease History of prediabetes HGBA1C 6.1% on 01/28/21 History of revision of total replacement of right hip joint 03/25/21 - [facility]; explantation old hardware, wound vac placement. History of septic shock 03/2021 - due to septic R hip; 04/2021 - again due to septic R hip - hospitalized [facility] each admission. Pseudomonas, proteus, oj albicans. Hyperlipidemia Hypertension Osteoarthritis Surgical History H/O carotid endarterectomy Left CEA: 02/18/20: Grade view 1 with head lift, MAC#3, ETT 7.0 at [facility] History of appendectomy History of bilateral tubal ligation History of brain surgery 5 years ago (Meniere's treatment/[facility]) History of History of cataract surgery R/L History of section x1 History of cholecystectomy History of cholecystectomy History of colonoscopy History of esophagogastroduodenoscopy (EGD) History of incision and drainage right hip - multiple I/D's, 03/2021-04/2021; [facility]. History of tonsillectomy History of tooth extraction History of total hip arthroplasty RT> with repair S/P carotid endarterectomy Status post revision of total hip replacement (~01/2021) Family History Mother Diabetes Family history of diabetes mellitus Sister Diabetes Family history of diabetes mellitus Arterial thrombosis Amputation of leg Father Heart disease Lung disease Other No family history of adverse response to anesthesia Denies family history of Ovarian cancer Prostate cancer Myocardial infarction Breast cancer Colorectal cancer Social History Smoking Status: Current every day smoker Tobacco Type: Cigarettes Age Started Using Tobacco: 17; Age Quit Using Tobacco: 65; packs per day: 1; Years Smoked: 55; Second Hand Exposure: Yes; Do You Dip or Chew Tobacco: No; Tobacco Cessation Education Requested by Patient: No Hx Alcohol Use: No Hx Substance Use: Yes Last Used Substance: Days (ago) Last Used Substance Other:: 08/31/2021 Substance Use Type Other:: daily use Preferred Language: Cook Islander Communication Ability: Effective Visual Impairment: No Limitations Hearing Ability: Normal Resident Intern Required: No Beliefs That Will Affect Care: None marital status: Current Living Situation: Family Current Living Situation Comment: [facility] (normally with son and his fiance in her appt) current occupational status: retired 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 How many Children do You have: 2 How many Children do You have Comment: 1 child from suicide Feels Safe at Home: Yes Safety Concerns: Feels Safe At This Time Childhood Exposure to Second-Hand Smoke: Yes Dental Care, Regularly: No Physical Activity Frequency: Does not Exercise Seatbelt Use: always Sunscreen Use: No Assistive Devices: None Review of Systems Review of Systems: The patient denies chest pain, palpitations, shortness of breath, dyspnea on exertion, cough, lower extremity swelling, sore throat, fevers, chills, sweats, blood in urine or stool, dysuria, urinary frequency or urgency, lightheadedness, dizziness, headache, memory loss, loss of consciousness, rash, abnormal bruising or bleeding, imbalance, focal weakness, numbness or tingling in arms or legs, generalized arthralgias or myalgias, back or neck pain, or night sweats. The review of systems is otherwise negative other than for that already noted above, and at least 10 systems have been reviewed. Physical Exam Physical Exam: The patient is awake, alert and oriented 3, well developed and well nourished, normocephalic and atraumatic, lying in bed and in no acute distress. HEENT--PERRL, EOMI, mucous membranes and oropharynx dry. Neck--supple. No JVD. No bruits. Thyroid normal, trachea midline, no adenopathy. Heart--normal S1 and S2. No murmurs, rubs or gallops. Lungs--clear bilaterally, no respiratory distress, no accessory muscle use. Abdomen--normal bowel sounds and soft. Mild generalized abdominal discomfort. Extremities--no cyanosis or clubbing. No edema. Dermatologic--normal skin turgor, normal color, no abnormal lymph nodes, no rash. Neurologic--cranial nerves II through XII grossly intact. Rheumatologic--normal range of motion. Psychiatric--normal affect. Results & Data Results & Data ([facility]) Vital Signs (Past 12 Hours) Vital Signs Temp Pulse Resp BP Pulse Ox 09/02/21 16:21 97.7 F 138 H 20 138/96 96 Laboratory Results Laboratory Results WBC 11.23 K/uL (4.8-10.8) H 09/02/21 16:45 RBC 4.59 M/uL (4.2-5.4) 09/02/21 16:45 Hgb 13.9 g/dL (12.0-16.0) 09/02/21 16:45 Hct 43.3 % (37-47) 09/02/21 16:45 MCV 94.3 fL (80-100) 09/02/21 16:45 MCH 30.3 pg (25-34) 09/02/21 16:45 MCHC 32.1 g/dL (32-36) 09/02/21 16:45 RDW Std Deviation 64.4 fL (36.4-46.3) H 09/02/21 16:45 RDW Coeff of Crow 18.5 % (11.5-14.5) H 09/02/21 16:45 Plt Count 559 K/uL (130-400) H 09/02/21 16:45 MPV 10.7 fL (7.4-10.4) H 09/02/21 16:45 Neutrophils % (Manual) 33.0 % 09/02/21 16:45 Lymphocytes % (Manual) 26.1 % 09/02/21 16:45 Monocytes % (Manual) 6.1 % 09/02/21 16:45 Neutrophils # (Manual) 3.71 K/uL (1.4-6.5) 09/02/21 16:45 Total Absolute Neuts 3.71 K/uL (1.4-6.5) 09/02/21 16:45 Lymphocytes # (Manual) 2.93 K/uL (1.2-3.4) 09/02/21 16:45 Total Abs Lymphocytes 6.84 K/uL (1.2-3.4) H 09/02/21 16:45 Monocytes # (Manual) 0.69 K/uL (0.11-0.59) H 09/02/21 16:45 Large Granular Lymphs 34.8 % 09/02/21 16:45 # Lrg Granular Lymphs 3.91 K/uL 09/02/21 16:45 Echinocytes 1+ 09/02/21 16:45 Sodium 137 mmol/L (136-145) 09/02/21 16:45 Potassium 4.1 mmol/L (3.5-5.1) 09/02/21 16:45 Chloride 104 mmol/L (98-107) 09/02/21 16:45 Carbon Dioxide 20 mmol/L (21-32) L 09/02/21 16:45 Anion Gap 12.0 (3-11) H 09/02/21 16:45 BUN 11 mg/dl (7-18) 09/02/21 16:45 Creatinine 1.48 mg/dl (0.6-1.2) H 09/02/21 16:45 Est Cr Clr Drug Dosing Not Reportable 09/02/21 16:45 Est GFR ( Amer) 42.0 ml/min 09/02/21 16:45 Est GFR (Non-Af Amer) 36.3 ml/min 09/02/21 16:45 BUN/Creatinine Ratio 7.7 (10-20) L 09/02/21 16:45 Glucose 208 mg/dl (70-99) H 09/02/21 16:45 Calcium 9.8 mg/dl (8.5-10.1) 09/02/21 16:45 Total Bilirubin 0.3 mg/dl (0.2-1) 09/02/21 16:45 AST 48 U/L (15-37) H 09/02/21 16:45 ALT 24 U/L (12-78) 09/02/21 16:45 Alkaline Phosphatase 94 U/L (45-117) 09/02/21 16:45 Total Protein 7.0 gm/dl (6.4-8.2) 09/02/21 16:45 Albumin 2.5 gm/dl (3.4-5.0) L 09/02/21 16:45 Globulin 4.5 gm/dl (2.5-4.0) H 09/02/21 16:45 Albumin/Globulin Ratio 0.6 (0.9-2) L 09/02/21 16:45 Lipase 69 U/L (73-393) L 09/02/21 16:45 SARS-CoV-2, RNA, NAAT NEGATIVE (NEGATIVE) 09/02/21 19:08 Impressions Abdomen/Pelvis CT 09/02/21 18:[address] WITHOUT CONTRAST CT DOSE: 862.70 mGycm HISTORY: Acute generalized abdominal pain abd pain eval for divertic TECHNIQUE: Multiaxial CT images of the abdomen and pelvis were performed without contrast. A dose lowering technique was utilized adhering to the principles of ALARA. COMPARISON STUDY: Chest radiograph 05/21/2021 FINDINGS: Cardiac chambers are unremarkable. Clear lung bases. Emphysema. No pneumatosis or pneumoperitoneum. Unremarkable spleen with moderate to marked pancreatic atrophy. Degenerative glands are within normal limits. Cholecystectomy. Unremarkable liver. 2 mm nonobstructing calculus of the inferior pole right kidney with punctate calculus of the superior pole. No ureteral calculi or hydronephrosis. Unremarkable urinary bladder with unremarkable uterus and adnexa. The pelvic structures are suboptimally visualized secondary to streak artifact from right hip total joint arthroplasty. Atherosclerosis of the aorta without aneurysm. No adenopathy. Tiny hiatal hernia. Small to moderate duodenal diverticulum. Mild to moderate fecal retention. Colonic diverticulosis. No CT evidence of acute diverticulitis. Appendectomy. Unremarkable soft tissues. No acute fracture. Degenerative changes of the spine, pelvis and left hip. Demineralized appearance of the bones. Avascular necrosis of the left hip. No articular collapse. IMPRESSION: 1. No bowel obstruction or bowel wall thickening. 2. Colonic diverticulosis without acute diverticulitis. 3. Mild to moderate fecal retention. 4. Tiny hiatal hernia. 5. Small nonobstructing right renal calculi. 6. Avascular necrosis of the left femoral head. ACT 112: Negative or not required by law. The above report was generated using voice recognition software. It may contain grammatical, syntax or spelling errors. Electronically signed by: Mani Zapata M.D. 09/02/2021 8:57 PM Code Status & VTE Plan Code Status Full code VTE Prophylaxis Plan VTE Prophylaxis will be ordered: Yes PG Care Time/CCT Total # of Minutes Spent Total Time Spent with Patient: Total time spent is greater than 50% in coordination of care (as documented) at patient's floor/unit and/or counseling patient: Coding Level of Care Code INT OBSERVATION CARE 70M LVL 3 Diagnoses Intractable nausea and vomiting R11.2 GERD (gastroesophageal reflux disease) K21.9 Hyperlipidemia E78.5 Depression with anxiety F41.8 COPD (chronic obstructive pulmonary disease) J42 COPD type: chronic bronchitis Chronic bronchitis type: unspecified Pulmonary emboli I26.99 Chronic renal failure, stage 3b N18.32 Acute dehydration E86.0 Acute kidney injury superimposed on chronic kidney disease N17.9; N18.9 (1) COPD (chronic obstructive pulmonary disease) COPD type: chronic bronchitis Chronic bronchitis type: unspecified Qualified Code(s): J42 - Unspecified chronic bronchitis
[2021-09-03] MEDS ORDERED: PROMETHAZINE HCL 12.5 MG in SODIUM CHLORIDE 0.9% 50 ML IV PRN (00:13)
[2021-09-03] MEDS ORDERED: ONDANSETRON INJ 2 MG/ML 2 ML VIAL IV PRN (00:13)
[2021-09-03] MEDS ORDERED: ACETAMINOPHEN 325 MG TAB PO PRN (00:13)
[2021-09-03] MEDS: SODIUM CHLORIDE 0.9% 500 ML IV SCH (00:38)
[2021-09-03 06:35] LABS: Basophils # (auto) 0.03 K/uL (0-0.2); Basophils % (auto) 0.4 %; Eosinophils # (auto) 0.04 K/uL (0-0.5); Eosinophils % (auto) 0.5 %; Hematocrit (blood only) 36.2 % (37-47); Hemoglobin 11.6 g/dL (12.0-16.0); Immature Granulocytes # (auto) 0.06 K/uL (0.00-0.02); Immature Granulocytes % (auto) 0.8 %; Lymphocytes # (auto) 3.56 K/uL (1.2-3.4); Lymphocytes % (auto) 47.5 %; Mean Corpuscular Hemoglobin 30.1 pg (25-34); Mean Corpuscular Volume 93.8 fL (80-100); Mean Platelet Volume 10.6 fL (7.4-10.4); Monocytes # (auto) 0.96 K/uL (0.11-0.59); Monocytes % (auto) 12.8 %; Neutrophils # (auto) 2.85 K/uL (1.4-6.5); Platelet Count 453 K/uL (130-400); RDW Coefficient of Variation 18.7 % (11.5-14.5); RDW Standard Deviation 63.5 fL (36.4-46.3); Red Blood Count 3.86 M/uL (4.2-5.4)
[2021-09-03 07:14] LABS: Albumin Level 1.9 gm/dl (3.4-5.0); BUN Creatinine Ratio 11.8 (10-20); Calcium 8.8 mg/dl (8.5-10.1); Creatinine Clr Calc Pharmacy 46.1 ml/min; Est GFR (African American) 55.8 ml/min; Est GFR (Non-African American) 48.2 ml/min; Potassium 4.1 mmol/L (3.5-5.1)
[2021-09-03 07:28] LABS: Albumin Globulin Ratio 0.5 (0.9-2); Bilirubin,Total 0.4 mg/dl (0.2-1); Globulin 3.9 gm/dl (2.5-4.0); Total Protein 5.8 gm/dl (6.4-8.2)
[2021-09-03] MEDS: SODIUM CHLORIDE 0.9% 1000ML 1,000 ML IV SCH ×2 (09:00→17:45)
[2021-09-03] MEDS ORDERED: IPRATROPIUM BROMIDE/ALBUTEROL respimat INH INH SCH (09:00)
[2021-09-03] MEDS: FLUTICASONE/VILANTEROL 100/25MCG 14 PUFFS/INHALER INH SCH (09:04)
[2021-09-03] MEDS: FAMOTIDINE 20 MG in SYRINGE 3 ML IV SCH ×2 (09:04→22:05)
[2021-09-03] MEDS: NICOTINE 14 MG/24 HR PATCH TD SCH (09:04)
[2021-09-03] MEDS: APIXABAN 5 MG TABLET PO SCH ×3 (09:04→21:58)
[2021-09-03] MEDS: Albuterol HFA 8 GM Inhaler (Combivent Respimat P&T Subs) INH SCH ×4 (10:48→18:44)
[2021-09-03] MEDS: Ipratropium HFA Inhaler (Combivent Respimat P&T Subs) INH SCH ×4 (10:48→18:44)
--- NOTE | 2021-09-03 17:23 | Hospitalist Progress Note ---
Date of Service September 03, 2021 Assessment & Plan (1) Intractable nausea and vomiting: Plan: Intractable nausea and vomiting/history of diverticulitis/history of C. d ifficile colitis--resolved - Possibly secondary to high dose Flagyl - Continue Pepcid, Zofran alternating with Phenergan as needed - Advanced diet to clear liquids, pt tolerated, thus will advance to low fiber (d/t recent diverticular flare) - D/C IVF (2) GERD (gastroesophageal reflux disease): Plan: Placed on famotidine 20 mg IV every 12 hours (3) Hyperlipidemia: Plan: Can resume Atorvastatin (4) Depression with anxiety: Plan: On no specific treatment (5) COPD (chronic obstructive pulmonary disease): Plan: Continue Combivent 1 puff 4 times daily. DuoNebs every 2 hours as needed (6) Pulmonary emboli: Plan: Continue apixaban 5 mg p.o. twice daily (7) Acute kidney injury superimposed on chronic kidney disease: Plan: BEV on CKD stage III- Creatinine 1.48 upon admission, with baseline 0.93 IVF given, creat this AM 1.17 (8) Chronic renal failure, stage 3b: Plan: See above (9) Acute dehydration: Plan: IV fluids as noted above Likely secondary to nausea and vomiting which is likely secondary to reaction to high-dose metronidazole Pt appears adequately hydrated at this time, IVF capped Plan: DVT ppx covered w/ Eliquis F/U labs in AM D/C planning -- anticipate home tomorrow Admission and Anticipated Discharge Date Admission Date: September 02, 2021 Supervising Physician Co-Signing Physician Notes Attending Attestation - Chart reviewed in detail, care plan d/w JIM Ye. I agree with the garcia components of her documentation. N/V at presentation - 2nd to flagyl side effects? other? CT abd/pelvis at admission negative for acute findings - including recent clinical dx of diverticulitis - but no contrast given. N/V resolved. Advance diet. Monitor overnight. Brandon Tello was seen on rounds this morning. Pt was placed in observation for intractable n/v which was presumed secondary to high dose Flagyl. Pt was being treated for diverticulitis by her PCP's office x 10 days. She just completed the course when symptoms of n/v started. Imaging in ED unremarkable except for fecal retention. Currently, pt is resting comfortably in bed and offers no new complaints. She has been kept NPO overnight and hydrated. She reports no n/v since admission. She denies abd pain, f/c, headache, or gu symptoms. Review of Systems Review of Systems: CONSTITUTIONAL: Denies weight loss/gain, fever and chills, fatigue, malaise, generalized weakness. HEENT: Denies changes in vision and hearing. RESPIRATORY: Denies SOB, cough, wheezing. CV: Denies palpitations, CP, lower extremity edema, orthopnea, PND. GI: Denies abdominal pain, nausea, vomiting and diarrhea. : Denies dysuria and urinary frequency, urgency, hesitancy. MUSCULOSKELETAL: Denies myalgia and joint pain. SKIN: Denies rash and pruritus. NEUROLOGICAL: Denies headache, syncope, focal weakness, numbness, tingling. PSYCHIATRIC: Denies recent changes in mood. Denies anxiety and depression. Physical Exam Physical Exam: GENERAL: 66 yo WF. Well-developed, well-nourished. NAD. LUNGS: Diminished but CTA. No W/R/R. CARDIOVASCULAR: Regular rate and rhythm. No M/G/R. No JVD. ABDOMEN: Soft, non-tender and non-distended. No palpable masses. Bowel sounds normoactive x 4 quad. EXTREMITIES: No edema. Non-tender. Peripheral pulses +2/4. PSYCHIATRIC: Cooperative. Appropriate mood and affect. SKIN: Warm, dry, intact. No rashes or lesions. Results & Data Results & Data ([facility]) Vital Signs (Past 12 Hours) Vital Signs Temp Pulse Resp BP Pulse Ox 09/03/21 15:24 81 16 98 09/03/21 14:40 36.8 C 84 16 100/69 98 09/03/21 10:57 81 14 98 09/03/21 07:28 36.6 C 85 16 121/80 97 Laboratory Results 09/03/21 06:09 09/03/21 06:09 PG Care Time/CCT Total # of Minutes Spent Total Time Spent with Patient: Total time spent is greater than 50% in coordination of care (as documented) at patient's floor/unit and/or counseling patient: Coding Level of Care Code 72399 Subseq Obs Care Lvl 2 Diagnoses Intractable nausea and vomiting R11.2 GERD (gastroesophageal reflux disease) K21.9 Hyperlipidemia E78.5 Depression with anxiety F41.8 COPD (chronic obstructive pulmonary disease) J42 COPD type: chronic bronchitis Chronic bronchitis type: unspecified Pulmonary emboli I26.99 Acute kidney injury superimposed on chronic kidney disease N17.9; N18.9 Chronic renal failure, stage 3b N18.32 Acute dehydration E86.0 (1) COPD (chronic obstructive pulmonary disease) COPD type: chronic bronchitis Chronic bronchitis type: unspecified Qualified Code(s): J42 - Unspecified chronic bronchitis
[2021-09-03 18:25] LABS: Cdiff Antigen Negative; Cdiff Toxin A+B Negative Cdiff Toxin (Negative)
[2021-09-03] MEDS: oxyCODONE HCL IR 5 MG TAB (IMMEDIATE RELEASE) PO PRN (21:57)
[2021-09-04 03:13] LABS: Appearance Urine Turbid (Clear); Bacteria Urine Automated Negative (Negative); Blood Urine 3+ (Negative); Color Urine Orange; Epithelial Cell Urine Auto >30 /lpf (0-5); Glucose Urine UA Negative (Negative); Ketones Urine Negative (Negative); Leukocyte Esterase Urine 2+ (Negative); Nitrite Urine Positive (Negative); Protein Urine 1+ (Negative); Specific Gravity Urine 1.022 (1.000-1.030); Urobilinogen Urine Negative (Negative); WBC Urine Automated >30 /hpf (0-5)
[2021-09-04 03:17] LABS: Bilirubin Urine 1+ (Negative)
[2021-09-04 03:31] LABS: RBC Urine Automated >30 /hpf (0-4)
[2021-09-04 03:34] LABS: Calcium Oxalate Crystals Urine Present (None Prsent)
[2021-09-04] MEDS: Ipratropium HFA Inhaler (Combivent Respimat P&T Subs) INH SCH ×3 (07:30→14:46)
[2021-09-04] MEDS: Albuterol HFA 8 GM Inhaler (Combivent Respimat P&T Subs) INH SCH ×3 (07:31→14:45)
[2021-09-04 07:51] VITALS: BP 106/69; TEMP 97.5
[2021-09-04 08:03] LABS: Hematocrit (blood only) 37.7 % (37-47); Mean Corpuscular Hemoglobin 29.8 pg (25-34); Mean Corpuscular Hgb Conc 31.8 g/dL (32-36); Mean Corpuscular Volume 93.5 fL (80-100); Mean Platelet Volume 11.1 fL (7.4-10.4); Platelet Count 476 K/uL (130-400); RDW Standard Deviation 65.1 fL (36.4-46.3); Red Blood Count 4.03 M/uL (4.2-5.4); White Blood Count 7.08 K/uL (4.8-10.8)
[2021-09-04] MEDS: NICOTINE 14 MG/24 HR PATCH TD SCH (08:08)
[2021-09-04] MEDS: MIDODRINE HCL 2.5 MG TAB PO SCH ×2 (08:08→11:55)
[2021-09-04] MEDS: FLUTICASONE/VILANTEROL 100/25MCG 14 PUFFS/INHALER INH SCH (08:09)
[2021-09-04 08:24] LABS: Albumin Level 2.1 gm/dl (3.4-5.0); BUN Creatinine Ratio 11.9 (10-20); Calcium 8.5 mg/dl (8.5-10.1); Est GFR (African American) 69.2 ml/min; Est GFR (Non-African American) 59.7 ml/min; Potassium 3.5 mmol/L (3.5-5.1)
[2021-09-04 08:27] LABS: Albumin Globulin Ratio 0.5 (0.9-2); Bilirubin,Total 0.4 mg/dl (0.2-1); Total Protein 6.1 gm/dl (6.4-8.2)
[2021-09-04 08:40] LABS: Basophils # (auto) 0.03 K/uL (0-0.2); Basophils % (auto) 0.4 %; Echinocytes 1+; Eosinophils # (auto) 0.13 K/uL (0-0.5); Eosinophils % (auto) 1.8 %; Immature Granulocytes # (auto) 0.06 K/uL (0.00-0.02); Immature Granulocytes % (auto) 0.8 %; Lymphocytes # (auto) 3.69 K/uL (1.2-3.4); Lymphocytes % (auto) 52.1 %; Monocytes # (auto) 0.66 K/uL (0.11-0.59); Monocytes % (auto) 9.3 %; Neutrophils # (auto) 2.51 K/uL (1.4-6.5); Neutrophils % (auto) 35.6 %
[2021-09-04] MEDS ORDERED: ASPIRIN 81 MG ECTAB PO SCH (09:00)
[2021-09-04] MEDS ORDERED: NICOTINE 14 MG/24 HR PATCH TD SCH (09:00)
--- NOTE | 2021-09-04 09:38 | Electrocardiogram Report ---
Test Reason : Blood Pressure : / mmHG Vent. Rate : 126 BPM Atrial Rate : 126 BPM P-R Int : 120 ms QRS Dur : 076 ms QT Int : 400 ms P-R-T Axes : 000 072 051 degrees QTc Int : 579 ms Sinus tachycardia with Premature atrial complexes and Premature ventricular complexes or Fusion compl exes Nonspecific ST abnormality Abnormal ECG When compared with ECG of 28-MAY-2021 10:38, Fusion complexes are now Present Premature ventricular complexes are now Present Premature atrial complexes are now Present Confirmed by Abbe Gauthier ([id number]) on 09/04/2021 9:37:56 AM Referred By: REFERRED SELF Confirmed By:Abbe Gauthier
[2021-09-04] MEDS: oxyCODONE HCL IR 5 MG TAB (IMMEDIATE RELEASE) PO PRN ×2 (09:55→14:55)
[2021-09-04] MEDS: FAMOTIDINE 20 MG in SYRINGE 3 ML IV SCH (09:56)
[2021-09-04] MEDS: APIXABAN 5 MG TABLET PO SCH (09:56)
[2021-09-04] MEDS ORDERED: cefTRIAXone SODIUM 1,000 MG in DEXTROSE 5% 50 ML IV STA (11:34)
--- NOTE | 2021-09-04 11:48 | Discharge Summary ---
Date of Service September 04, 2021 Admission HPI Per Admitting Provider The patient is a 66-year-old female with a past medical history including prediabetes, CKD stage IIIb, diastolic CHF, pulmonary emboli, candidal esophagitis, severe protein calorie malnutrition, tobacco use disorder, Mnire's disease, hyperlipidemia, GERD, chronic cerebral ischemia, carotid artery stenosis, cerebral aneurysm, hypertension, depression with anxiety, and asthma/COPD. She had had a recent admission earlier in the year to [facility] for a case of severe diverticulitis, and secondary C. difficile colitis following the diverticulitis treatment. The C. difficile colitis did respond to oral vancomycin. She had not been having any issues until about 10 days ago when she started develop some abdominal discomfort and occasional loose stools, was concerned that this was recurrent diverticulitis, and was placed on Cipro 500 mg twice daily and Flagyl 500 mg p.o. 3 times daily. Over the past 48 hours she has developed worsening nausea and vomiting, and presents to the ED for assessment Admission Exam Per Admitting Provider The patient is awake, alert and oriented 3, well developed and well nourished, normocephalic and atraumatic, lying in bed and in no acute distress. HEENT--PERRL, EOMI, mucous membranes and oropharynx dry. Neck--supple. No JVD. No bruits. Thyroid normal, trachea midline, no adenopathy. Heart--normal S1 and S2. No murmurs, rubs or gallops. Lungs--clear bilaterally, no respiratory distress, no accessory muscle use. Abdomen--normal bowel sounds and soft. Mild generalized abdominal discomfort. Extremities--no cyanosis or clubbing. No edema. Dermatologic--normal skin turgor, normal color, no abnormal lymph nodes, no rash. Neurologic--cranial nerves II through XII grossly intact. Rheumatologic--normal range of motion. Psychiatric--normal affect. Principal Diagnosis 1. Intractable N/V -- ?due to meds (Flagyl) 2. UTI Discharge Exam GENERAL: 66 yo WF. Well-developed, well-nourished. NAD. LUNGS: Diminished but CTA. No W/R/R. CARDIOVASCULAR: Regular rate and rhythm. No M/G/R. No JVD. ABDOMEN: Soft, non-tender and non-distended. No palpable masses. Bowel sounds normoactive x 4 quad. EXTREMITIES: No edema. Non-tender. Peripheral pulses +2/4. PSYCHIATRIC: Cooperative. Appropriate mood and affect. SKIN: Warm, dry, intact. No rashes or lesions. Discharge Data Allergies Allergy/AdvReac Type Severity Reaction Status Date / Time No Known Allergies Allergy Verified 09/02/21 19:21 Consultations None Procedures Performed Abdomen/Pelvis CT 09/02/21 18:[address] WITHOUT CONTRAST CT DOSE: 862.70 mGycm HISTORY: Acute generalized abdominal pain abd pain eval for divertic TECHNIQUE: Multiaxial CT images of the abdomen and pelvis were performed without contrast. A dose lowering technique was utilized adhering to the principles of ALARA. COMPARISON STUDY: Chest radiograph 05/21/2021 FINDINGS: Cardiac chambers are unremarkable. Clear lung bases. Emphysema. No pneumatosis or pneumoperitoneum. Unremarkable spleen with moderate to marked p ancreatic atrophy. Degenerative glands are within normal limits. Cholecystectomy. Unremarkable liver. 2 mm nonobstructing calculus of the inferior pole right kidney with punctate calculus of the superior pole. No ureteral calculi or hydronephrosis. Unremarkable urinary bladder with unremarkable uterus and adnexa. The pelvic structures are suboptimally visualized secondary to streak artifact from right hip total joint arthroplasty. Atherosclerosis of the aorta without aneurysm. No adenopathy. Tiny hiatal hernia. Small to moderate duodenal diverticulum. Mild to moderate fecal retention. Colonic diverticulosis. No CT evidence of acute diverticulitis. Appendectomy. Unremarkable soft tissues. No acute fracture. Degenerative changes of the spine, pelvis and left hip. Demineralized appearance of the bones. Avascular necrosis of the left hip. No articular collapse. IMPRESSION: 1. No bowel obstruction or bowel wall thickening. 2. Colonic diverticulosis without acute diverticulitis. 3. Mild to moderate fecal retention. 4. Tiny hiatal hernia. 5. Small nonobstructing right renal calculi. 6. Avascular necrosis of the left femoral head. ACT 112: Negative or not required by law. The above report was generated using voice recognition software. It may contain grammatical, syntax or spelling errors. Electronically signed by: Mani Zapata M.D. 09/02/2021 8:57 PM Ordered Studies Laboratory Results - last 24 hr 09/03/21 09/04/21 09/04/21 15:50 03:00 07:05 WBC 7.08 RBC 4.03 L Hgb 12.0 Hct 37.7 MCV 93.5 MCH 29.8 MCHC 31.8 L RDW Std Deviation 65.1 H RDW Coeff of Crow 19.0 H Plt Count 476 H MPV 11.1 H Immature Gran % (Auto) 0.8 Neut % (Auto) 35.6 Lymph % (Auto) 52.1 [place] % (Auto) 9.3 Eos % (Auto) 1.8 Baso % (Auto) 0.4 Neut # (Auto) 2.51 Lymph # (Auto) 3.69 H [place] # (Auto) 0.66 H Eos # (Auto) 0.13 Baso # (Auto) 0.03 Immature Gran # (Auto) 0.06 H Echinocytes 1+ Sodium Potassium Chloride Carbon Dioxide Anion Gap BUN Creatinine Est Cr Clr Drug Dosing Est GFR ( Amer) Est GFR (Non-Af Amer) BUN/Creatinine Ratio Glucose Calcium Total Bilirubin AST ALT Alkaline Phosphatase Total Protein Albumin Globulin Albumin/Globulin Ratio Urine Color Sunflower Urine Appearance Turbid A Urine pH 5.0 Ur Specific [place] 1.022 Urine Protein 1+ H Urine Glucose (UA) Negative Urine Ketones Negative Urine Blood 3+ H Urine Nitrite Positive A Urine Bilirubin 1+ H Urine Urobilinogen Negative Ur Leukocyte Esterase 2+ H Urine WBC (Auto) >30 H Urine RBC (Auto) >30 H U Hyaline Cast (Auto) 1-5 U Epithel Cells (Auto) >30 H Urine Bacteria (Auto) Negative Urine Crystals Not Reportable Calcium Oxalate Crystal Present A Stl C. diff Tox B Gene Positive Cdiff Gene H Stl C.difficile Tox A&B Negative Cdiff Toxin 09/04/21 07:05 WBC RBC Hgb Hct MCV MCH MCHC RDW Std Deviation RDW Coeff of [place] Plt Count MPV Immature Gran % (Auto) Neut % (Auto) Lymph % (Auto) [place] % (Auto) Eos % (Auto) Baso % (Auto) Neut # (Auto) Lymph # (Auto) [place] # (Auto) Eos # (Auto) Baso # (Auto) Immature Gran # (Auto) Echinocytes Sodium 141 Potassium 3.5 Chloride 113 H Carbon Dioxide 20 L Anion Gap 8.0 BUN 12 Creatinine 0.98 Est Cr Clr Drug Dosing 55.0 Est GFR ( Amer) 69.2 Est GFR (Non-Af Amer) 59.7 BUN/Creatinine Ratio 11.9 Glucose 76 Calcium 8.5 Total Bilirubin 0.4 AST 25 ALT 18 Alkaline Phosphatase 72 Total Protein 6.1 L Albumin 2.1 L Globulin 4.0 Albumin/Globulin Ratio 0.5 L Urine Color Urine Appearance Urine pH Ur Specific [place] Urine Protein Urine Glucose (UA) Urine Ketones Urine Blood Urine Nitrite Urine Bilirubin Urine Urobilinogen Ur Leukocyte Esterase Urine WBC (Auto) Urine RBC (Auto) U Hyaline Cast (Auto) U Epithel Cells (Auto) Urine Bacteria (Auto) Urine Crystals Calcium Oxalate Crystal Stl C. diff Tox B Gene positive Stl C.difficile Tox A&B negative Diabetes Follow up NA Hospital Course (1) Intractable nausea and vomiting: Intractable nausea and vomiting/history of diverticulitis/history of C. difficile colitis--resolved - Possibly secondary to high dose Flagyl - Ordered Pepcid, Zofran alternating with Phenergan as needed - Inititally made NPO and provided IVF hydration - Diet advanced on rounds on 09/03 to clears and fluids capped - Tolerating clears and diet advanced to low fiber (d/t recent clinical suspicion of acute diverticular flare) - Pt tolerating diet (2) Diarrhea: Presented to ED with diarrhea - H/o C. diff colitis, no evidence of colitis or acute diverticulitis noted on CT - stool studies sent - C. diff toxin a/b negative, c diff gene H positive c/w being a carrier - Diarrhea still not quite resolved, stools loose but not watery, no blood or mucus - Could still be residual from just completing course of abx - Supportive care (3) Urinary tract infection: UA collected around 0300 this AM and appears grossly infected - Nitrite and leukocyte esterase positive - Pt has a h/o recurrent UTIs, most recent was VRE treated w/ IV Zosyn in April 2021 - Suspect given + nitrites that this may be d/t E. coli - had an E. coli UTI in 01/2020 which was resistant to fluoroquinolones but sensitive to 2/3rd gen cep - Will give a dose of IV Rocephin 1g now prior to d/c and transition to oral Ceftin to complete as an outpatient - (4) Acute kidney injury superimposed on chronic kidney disease: BEV on CKD stage III- Creatinine 1.48 upon admission, with baseline 0.93 IVF given, creat this AM 0.98 (back to baseline) (5) Acute dehydration: IV fluids given as noted above Likely secondary to nausea and vomiting which is likely secondary to reaction to high-dose metronidazole Pt appears adequately hydrated at this time, IVF capped yesterday (09/03) (6) GERD (gastroesophageal reflux disease): Placed on famotidine 20 mg IV every 12 hours while in house - takes Protonix daily at home, this can be resumed (7) Hyperlipidemia: Continue Atorvastatin (8) Depression with anxiety: On no specific treatment (9) COPD (chronic obstructive pulmonary disease): Continue Combivent 1 puff 4 times daily. DuoNebs every 2 hours as needed (10) Pulmonary emboli: Continue apixaban 5 mg p.o. twice daily (11) Chronic renal failure, stage 3b: See above Patient is doing well at this time. Tolerating diet. Initiate treatment for UTI. She is medically stable for discharge home. Follow up with PCP as outpatient. Total Time Total Time Spent Total Time Spent (In Minutes): <30 minutes Discharge Plan Discharge Items Patient Disposition: Home - Self-Care Reason For Visit: INTRACTABLE NAUSEA/VOMITING, DEHYDRATION Discharge Diagnosis: Nausea and vomiting, likely due to medication UTI Activity: Resume your previous activity Non-emergency contact: Primary Care Provider Call non-emergency contact if: you have any medication questions and your symptoms worsen Follow-up/Referrals: Edwin Valdez MD [Primary Care Provider] - Diet: Low Fiber Addtl Attending Provider Instructions: 1. Take all medications as directed. 2. Complete course of antibiotics for urinary tract infection (start them tomorrow, 09/05/21). Primary care provider should repeat urine testing to be sure infection has resolved. 3. Follow up with PCP within 1 week of discharge. Pending Studies at Discharge: Yes Studies:: Urine culture to identify specific bacteria is pending Additional stool studies are currently pending, but your C. diff came back negative Stand-Alone Forms: My [facility] [employer], Smoking Cessation Medications and DC Order Prescriptions: New cefuroxime axetil 250 mg tablet 250 mg PO BID 6 Days Qty: 12 RF: 0 Continued Combivent Respimat 20-100 mcg/actuation mist 1 puff INH QID Qty: 4 RF: 3 oxycodone [Roxicodone] 5 mg tablet See Rx Instructions PO .COMPLEX Qty: 210 RF: 0 pantoprazole [Protonix] 40 mg tablet,delayed release (DR/EC) 40 mg PO DAILYBB Qty: 90 RF: 3 fluconazole [Diflucan] 200 mg tablet 400 mg PO QAM RF: 0 Narcan 4 mg/actuation spray,non-aerosol 4 mg intranasal DIRECTED PRN (Reason: OVERSEDATION) RF: 0 midodrine 2.5 mg tablet 2.5 mg PO BID Qty: 60 RF: 3 Eliquis 5 mg tablet 5 mg PO BID 30 Days Qty: 60 RF: 5 clotrimazole-betamethasone 1-0.05 % cream 1 applic topical BID 14 Days Qty: 45 RF: 1 Breo Ellipta 100-25 mcg/dose Blister With Device 1 inh INHALATION QAM RF: 0 atorvastatin [Lipitor] 40 mg tablet 40 mg PO QDD RF: 0 aspirin [Aspirin Low Dose] 81 mg tablet,delayed release (DR/EC) 81 mg PO QAM RF: 0 albuterol sulfate [ProAir HFA] 90 mcg/actuation HFA aerosol inhaler 2 inh INHALATION DAILY RF: 0 Discontinued metronidazole 500 mg tablet 500 mg PO TID 10 Days Qty: 30 RF: 0 ciprofloxacin HCl 500 mg tablet 500 mg PO BID 10 Days Qty: 20 RF: 0 docusate sodium [Colace] 100 mg Capsule 100 mg PO BID PRN (Reason: Constipation) RF: 0 ondansetron 4 mg tablet,disintegrating 4 mg PO Q6H PRN (Reason: NAUSEA/VOMITING) RF: 0 No Action ondansetron 4 mg tablet,disintegrating 4 mg PO Q6H PRN (Reason: NAUSEA/VOMITING) Qty: 20 RF: 0 Discharge Orders: Discharge Order (Routine); Ordered 09/04/21 Ordered By: Carline Contreras/Other Patient Handouts: Urinary Tract Infections in Women Admission Data Admit Date/Time: 09/02/21 22:36 Attending Provider: Brandon Collins Admit Provider: Konstantin Johnson Primary Care Provider: Edwin Valdez Other Providers: Konstantin Johnson Other Interventions: Discharge Summary Assessment (RN) Last Done: 09/04/21 13:43 Supervising Physician Co-Signing Physician Notes Attending Attestation and Discharge Note - Pt seen/examined, chart reviewed in detail, care plan d/w JIM Ye. I agree with the garcia components of her documentation. 66yo female - well known to me from an admission earlier in 2020 - presented with nausea/vomiting/abd upset in the setting of being treated for a clinical dx of diverticulitis. Her 10-day course of cipro/flagyl had just completed (started a 10-day course on 08/23/21). Prior to these recent GI issues she has had no difficulties with upper GI symptoms over the last few months. Of note - during her May 2021 hospitalization she had had significant N/V during that stay - presumed to be GERD, treated as such. She also had had an EGD 04/2021 at [facility] in [place] - dx with candidal esophagitis at that time. Pt now feeling better with resolved upper GI symptoms. Tolerating diet. There is a question of UTI, now back on antibiotics. CT abd/pelvis from this admission without acute pathology however no IV contrast given. Discharge exam - gen - NAD, pleasant mouth - MMM neck - no JVD heart - RRR, s1 s2 lungs - CTA b/l abd - soft, NT, ND, BS+, no HSM ext - no edema Cont PPI at discharge. d/c home on cephalosporin for possible UTI while awaiting final culture. Given her abnormal EGD in 04/2021 and GI intolerances (May, and now) - recommend GI referral to [facility]. Brandon Collins MD Coding Level of Care Code 27702 OBS Care - Discharge Diagnoses Intractable nausea and vomiting R11.2 GERD (gastroesophageal reflux disease) K21.9 Hyperlipidemia E78.5 Depression with anxiety F41.8 COPD (chronic obstructive pulmonary disease) J42 COPD type: chronic bronchitis Chronic bronchitis type: unspecified Pulmonary emboli I26.99 Acute kidney injury superimposed on chronic kidney disease N17.9; N18.9 Chronic renal failure, stage 3b N18.32 Acute dehydration E86.0 Urinary tract infection N39.0 Diarrhea R19.7 Diarrhea type: unspecified type
[2021-09-04 14:47] VITALS: PULSE 75; O2SAT 95
[2021-09-04] MEDS ORDERED: ATORVASTATIN 40 MG TAB PO SCH (16:30)
== END 2021-09-04 15:50 | disposition home or self-care (01) ==
LOC: ED 16:14 → 3E 16:14 → SUATTDRO 22:36 → 3E 23:46

== ENCOUNTER 2021-11-03 17:40 | Inpatient (IN) ==
[2021-11-03] MEDS ORDERED: SODIUM CHLORIDE 0.9% 1000ML 1,000 ML IV ONE (18:58)
--- NOTE | 2021-11-03 19:03 | Emergency Department Note ---
Impression & Plan Vomiting, Weakness, Pressure ulcer, Acute hyponatremia ED Provider Note NAME: DEEPAK CORTEZ AGE: 66 SEX: F : 1955 ARRIVES VIA: Ambulance INFORMANT: Patient ED PROVIDER(S): John Jamison DO CHIEF COMPLAINT: Weakness HPI: Patient is a 66-year-old female who presents to the ER for weakness. She was referred in by her PCP. She has been present for the past several months vomiting 2 to 3 hours after eating. She denies any belly pain. No dysuria, urgency, or frequency. Normal bowel movements. She has not been drinking as much. PCP referred her in for concern for dehydration. No headaches or change in vision. No other exacerbating remitting factors. Family wants to keep her at home. She has not been walking for over a year. She no longer transfer herself and can barely sit up anymore. Family is having a difficult time to care for her. ROS: See above HPI for pertinent positives & negatives. A total of 10 systems reviewed and were otherwise negative. PAST MEDICAL HISTORY:See Below PAST SURGICAL HISTORY:See Below FAMILY HISTORY:See Below SOCIAL HISTORY:See Below HOME MEDICATIONS:See Below ALLERGIES:See Below VITALS:See Below PHYSICAL EXAMINATION: GENERAL: Sitting up in bed, alert, well appearing, well nourished, no distress, non-toxic EYE EXAM: normal conjunctiva. OROPHARYNX: no exudate, no erythema, lips, buccal mucosa, and tongue normal and mucous membranes are moist NECK: supple, no nuchal rigidity, no adenopathy, non-tender LUNGS: Clear to auscultation. Normal chest wall mechanics HEART: no murmurs, S1 normal and S2 normal ABDOMEN: abdomen soft, non-tender, normo-active bowel sounds, no masses, no rebound or guarding. RECTAL: Skin breakdown on bilateral gluteus fold/sacrum UPPER EXTREMITIES: upper extremities are grossly normal. LOWER EXTREMITIES: No pitting edema. NEURO EXAM: Normal sensorium, cranial nerves II-XII grossly intact, normal speech MEDICAL DECISION MAKING: Patient is a 66-year-old female who presents to the ER for weakness brought in by family as they are having difficulty can care for her anymore. IV was established photos obtained. She is slightly tachycardic. She is given IV fluids. She does have worsening pressure ulcers. CBC with mild anemia 10. BMP with mild hyponatremia at 133. T bili slightly up at 1.1. LFTs bilirubin and lipase is unremarkable. She was straight cathed but no urine was obtained. CT abdomen pelvis with 8mm nodule with satellite nodules in the right lower lobe which was not seen on chest CT performed 01/05/2017. With additional groundglass and tree in bud nodularity in the left lung, this may represent infectious/in flammatory process. 3 month follow-up CT of the chest is recommended to exclude malignancy. Patient was updated bedside discussed with Dr. Davies admitted for further work-up Triage Nursing notes reviewed. Limited review of prior medical records performed Vital Signs: reviewed and remarkable for tachy and htn Differential diagnosis: Infection, dehydration, metabolic abnormality, hypo/hyperglycemia, electrolyte disturbance, anemia, hypoxia, cardiac sources, intracerebral event, toxicologic, neurologic, as well as other pathologies. ER treatment provided: See below Diagnostics interpreted by me: ECG: Sinus tachycardia rate of 101 Normal axis PVC present ST depressions in V3 through V6 as well as the inferior leads no significant change from previous Cardiac Monitoring: An order was placed for continuous cardiac monitoring. The monitor shows a rate of 95 with sinus rhythm. Laboratory studies: As stated above and show below. Imaging studies: CT abdomen pelvis as discussed above Consultation(s): Discussed with Konstantin Johnson for further evaluation Procedures: none Critical Care: None Past Med/Surg History Medical History Acute renal failure Asthma PT STATES TAKES RESCUE INHALER DAILY Carotid stenosis, left S/P L CEA (02/18/20) (Prior to CEA patient had 80% LICA stenosis ) Cerebral aneurysm Per records, pt unaware No significant aneurysm noted with head CTA and brain MRI from 01/2020 CKD (chronic kidney disease) stage III COPD (chronic obstructive pulmonary disease) CVA (cerebral vascular accident) CVA 02/11/20- no residual effects, follows with [facility], patient was on plavix until ~1 month after left CEA surgery, now on ASA 81mg Depression with anxiety GERD (gastroesophageal reflux disease) History of Meniere's disease History of prediabetes HGBA1C 6.1% on 01/28/21 History of revision of total replacement of right hip joint 03/25/21 - [facility]; explantation old hardware, wound vac placement. History of septic shock 03/2021 - due to septic R hip; 04/2021 - again due to septic R hip - hospitalized [facility] each admission. Pseudomonas, proteus, oj albicans. Hyperlipidemia Hypertension Osteoarthritis Surgical History H/O carotid endarterectomy Left CEA: 02/18/20: Grade view 1 with head lift, MAC#3, ETT 7.0 at [facility] History of appendectomy History of bilateral tubal ligation History of brain surgery 5 years ago ([facility]) History of History of cataract surgery R/L History of section x1 History of cholecystectomy History of cholecystectomy History of colonoscopy History of esophagogastroduodenoscopy (EGD) History of incision and drainage right hip - multiple I/D's, 03/2021-04/2021; [facility]. History of tonsillectomy History of tooth extraction History of total hip arthroplasty RT> with repair S/P carotid endarterectomy Status post revision of total hip replacement (~01/2021) Family History Mother Diabetes Family history of diabetes mellitus Sister Diabetes Family history of diabetes mellitus Arterial thrombosis Amputation of leg Father Heart disease Lung disease Other No family history of adverse response to anesthesia Denies family history of Ovarian cancer Prostate cancer Myocardial infarction Breast cancer Colorectal cancer Social History Smoking Status: Current every day smoker Tobacco Type: Cigarettes Age Started Using Tobacco: 17; Age Quit Using Tobacco: 65; packs per day: 1; Years Smoked: 55; Second Hand Exposure: Yes; Hx Alcohol Use: No Hx Substance Use: Yes Last Used Substance: Days (ago) Last Used Substance Other:: 08/31/2021 Substance Use Type Other:: daily use Preferred Language: Samoan Communication Ability: Effective Visual Impairment: No Limitations Hearing Ability: Normal Biological Plant Operator Required: No Beliefs That Will Affect Care: None marital status: Current Living Situation: Family Current Living Situation Comment: [facility] (normally with son and his fiance in her appt) current occupational status: retired 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 How many Children do You have: 2 How many Children do You have Comment: 1 child from suicide Feels Safe at Home: Yes Childhood Exposure to Second-Hand Smoke: Yes Dental Care, Regularly: No Physical Activity Frequency: Does not Exercise Seatbelt Use: always Sunscreen Use: No Assistive Devices: Denture - Upper and Wheelchair Allergies Allergies Allergy/AdvReac Type Severity Reaction Status Date / Time No Known Allergies Allergy Verified 11/03/21 18:24 Home Meds Home Medications Medication Instructions Recorded Confirmed albuterol sulfate 90 mcg/actuation 2 inh INHALATION DAILY 05/20/21 11/03/21 aerosol inhaler (ProAir HFA) aspirin 81 mg tablet,delayed 81 mg PO QAM 05/20/21 11/03/21 release (Aspirin Low Dose) atorvastatin 40 mg tablet (Lipitor) 40 mg PO QDD 05/20/21 11/03/21 naloxone 4 mg/actuation nasal 4 mg INTRANASAL DIRECTED PRN ea 06/13/21 11/03/21 spray (Narcan) Previous Rx's Medication Instructions Recorded apixaban 5 mg tablet (Eliquis) 5 mg PO BID 30 Days #60 tab 06/14/21 pantoprazole 40 mg tablet,delayed 40 mg PO DAILYBB #90 tab 08/11/21 release (Protonix) ondansetron 4 mg disintegrating 4 mg PO Q6H PRN #20 tab 10/17/21 tablet oxycodone 5 mg tablet (Roxicodone) See Rx Instructions PO .COMPLEX 10/26/21 #180 tab Results & Data (ED) Vital Signs Vital Signs - 24 hr 11/03/21 18:24 11/03/21 18:46 11/03/21 19:20 Temperature 37.1 C Temperature Source Oral Pulse Rate 108 H 105 H Pulse Rate [Right Radial] 117 H Pulse Rhythm Regular Regular Pulse Rhythm [Right Radial] Regular Pulse Strength Normal Pulse Strength [Right Radial] Normal Respiratory Rate 14 14 14 Respiratory Effort / Characteristics Non-Labored Non-Labored Respiratory Depth Normal Normal Respiratory Pattern Regular Regular Blood Pressure 139/101 H Blood Pressure [Left Arm] 139/101 H Blood Pressure Mean 113 Blood Pressure Mean [Left Arm] 113 Blood Pressure Position Lying Blood Pressure Position [Left Arm] Lying Pulse Oximetry 96 97 98 Oxygen Delivery Method Room Air Room Air Room Air Sepsis Recent Fever Within 48 Hours No Sepsis New/Unexplained Change in Mental Status No Sepsis Action Taken by Nursing No Action Required 11/03/21 20:00 11/03/21 22:00 Temperature Temperature Source Pulse Rate Pulse Rate [Right Radial] 99 H 103 H Pulse Rhythm Pulse Rhythm [Right Radial] Regular Regular Pulse Strength Pulse Strength [Right Radial] Normal Normal Respiratory Rate 14 14 Respiratory Effort / Characteristics Non-Labored Non-Labored Respiratory Depth Normal Normal Respiratory Pattern Regular Regular Blood Pressure Blood Pressure [Left Arm] 138/97 101/63 Blood Pressure Mean Blood Pressure Mean [Left Arm] 110 75 Blood Pressure Position Blood Pressure Position [Left Arm] Lying Lying Pulse Oximetry 95 95 Oxygen Delivery Method Room Air Room Air Sepsis Recent Fever Within 48 Hours Sepsis New/Unexplained Change in Mental Status Sepsis Action Taken by Nursing Laboratory Data Result diagrams: 11/03/21 20:40 11/03/21 20:40 Lab Results 11/03/21 11/03/21 11/03/21 Range/Units 20:40 20:40 21:23 WBC 10.28 (4.8-10.8) K/uL RBC 2.95 L (4.2-5.4) M/uL Hgb 10.0 L (12.0-16.0) g/dL Hct 27.7 L (37-47) % MCV 93.9 (80-100) fL MCH 33.9 (25-34) pg MCHC 36.1 H (32-36) g/dL RDW Std Deviation 49.6 H (36.4-46.3) fL RDW Coeff of Crow 14.9 H (11.5-14.5) % Plt Count 346 (130-400) K/uL MPV 10.7 H (7.4-10.4) fL Immature Gran % (Auto) 0.9 % Neut % (Auto) 69.9 % Lymph % (Auto) 19.5 % Gibson % (Auto) 9.5 % Eos % (Auto) 0.0 % Baso % (Auto) 0.2 % Neut # (Auto) 7.19 H (1.4-6.5) K/uL Lymph # (Auto) 2.00 (1.2-3.4) K/uL Gibson # (Auto) 0.98 H (0.11-0.59) K/uL Eos # (Auto) 0.00 (0-0.5) K/uL Baso # (Auto) 0.02 (0-0.2) K/uL Immature Gran # (Auto) 0.09 H (0.00-0.02) K/uL Sodium 133 L (136-145) mmol/L Potassium 3.9 (3.5-5.1) mmol/L Chloride 99 (98-107) mmol/L Carbon Dioxide 30 (21-32) mmol/L Anion Gap 4 (3-11) BUN 17 (6-23) mg/dl Creatinine 0.82 (0.6-1.2) mg/dl Est Cr Clr Drug Dosing 63.2 ml/min Est GFR ( Amer) 85.8 ml/min Est GFR (Non-Af Amer) 74.0 ml/min BUN/Creatinine Ratio 20.7 H (10-20) Glucose 81 (70-99(Fasting)) mg/dl Calcium 6.7 L (8.5-10.1) mg/dl Total Bilirubin 1.1 H (0.2-1.0) mg/dl AST 63 H (13-39) U/L ALT 40 (7-52) U/L Alkaline Phosphatase 146 H (34-104) U/L Total Protein 5.1 L (6.0-8.3) gm/dl Albumin 1.8 L (3.4-5.0) gm/dl Globulin 3.3 (2.5-4.0) gm/dl Albumin/Globulin Ratio 0.5 L (0.9-2) Lipase 7 L (11-82) U/L Urine Color Cancelled Urine Appearance Cancelled Urine pH Cancelled Ur Specific [place] Cancelled Urine Protein Cancelled Urine Glucose (UA) Cancelled Urine Ketones Cancelled Urine Blood Cancelled Urine Nitrite Cancelled Urine Bilirubin Cancelled Urine Urobilinogen Cancelled Ur Leukocyte Esterase Cancelled Urine WBC (Auto) Cancelled Urine RBC (Auto) Cancelled U Hyaline Cast (Auto) Cancelled U Epithel Cells (Auto) Cancelled Urine Bacteria (Auto) Cancelled Ur Renal Epithelial Cell Cancelled Urine Crystals Cancelled Calcium Oxalate Crystal Cancelled Uric Acid Crystals Cancelled Triple Phos Crystals Cancelled Other Crystals Cancelled Amorphous Sediment Cancelled Granular Casts Cancelled Waxy Casts Cancelled RBC Casts Cancelled WBC Casts Cancelled Other Casts Cancelled Urine Mucus Cancelled Urine Other Cancelled Urine Trichomonas Cancelled Urine Yeast Cancelled Urine Sperm Cancelled Ur Oval Fat Bodies Cancelled Administered Medications Discontinued Medications Sodium Chloride (Nss 1000ml) 1,000 mls @ 999 mls/hr IV .Q1H1M ONE Stop: 11/03/21 19:58 Last Infusion: 11/03/21 20:15 Dose: 0 mls/hr Documented by: [id number] Admin: 11/03/21 19:19 Dose: 999 mls/hr Documented by: [id number] Sodium Chloride (Nss) 500 mls @ 999 mls/hr IV .Q31M ONE Stop: 11/03/21 23:35 Last Admin: 11/03/21 23:05 Dose: 999 mls/hr Documented by: [id number] Ioversol (Optiray 320 100ml) 93 ml IV ONCE ONE Stop: 11/03/21 21:43 Last Admin: 11/03/21 21:43 Dose: 93 ml Documented by: [id number] Imaging Data Radiologist's Impression: Abdomen/Pelvis CT 11/03/21 18:58 CT abd pelvis IV con only CLINICAL HISTORY: vomiting after eating TECHNIQUE: Helical axial images of the abdomen and pelvis were obtained and displayed. Automated dose lowering techniques and/or adjustment according to patient size were utilized for this exam. This exam was performed with intravenous contrast. COMPARISON: Comparison is made to CT abdomen pelvis 09/02/2021 FINDINGS: Lower chest: Multiple wall thickening is seen which may be secondary to chronic inflammation. There is a 31 mm groundglass opacity in the lingula and an 8 mm nodule in the right lower lobe (series 3 image 19). Liver: Hepatic steatosis is noted. Gallbladder and biliary tree: Patient is status post cholecystectomy. Physiologic prominence of the biliary ducts is noted. Pancreas: Fatty replacement of the pancreas is seen. Spleen: Unremarkable. Adrenals: Unremarkable. Kidneys and ureters: A right nonobstructive stone is seen. Bladder: Limited evaluation due to underdistention. A tiny focus of air seen in the bladder. Reproductive organs: Patient is status post hysterectomy. Bowel: Diverticulosis is seen without evidence of diverticulitis. A hiatal hernia is seen. Lymph nodes Retroperitoneal: Subcentimeter lymph nodes are noted. Mesenteric: Unremarkable. Pelvic: Unremarkable. Peritoneum: Normal. Vessels: Atherosclerotic calcifications are seen. Abdominal wall: Unremarkable. Bones: Degenerative changes in the visualized spine. A right hip arthroplasty is seen. IMPRESSION: 1. No acute abnormalities. 2. 8mm nodule with satellite nodules in the right lower lobe which was not seen on chest CT performed 01/05/2017. With additional groundglass and tree in bud nodularity in the left lung, this may represent infectious/inflammatory process. 3 month follow-up CT of the chest is recommended to exclude malignancy. 3. Hepatic steatosis. 4. Additional findings as above. ACT 112: Negative or not required by law. Electronically signed by: Simba Mcclain M.D. 11/03/2021 9:57 PM Discharge Plan Visit Data Chief Complaint: Illness Stated Complaint: ILLNESS ED Provider: John Jamison Discharge Problem: Vomiting, Weakness, Pressure ulcer, Acute hyponatremia Forms Stand Alone Forms: [employer] Prescriptions Prescriptions: No Action ondansetron 4 mg tablet,disintegrating 4 mg PO Q6H PRN (Reason: NAUSEA/VOMITING) Qty: 20 RF: 0 oxycodone [Roxicodone] 5 mg tablet See Rx Instructions PO .COMPLEX Qty: 180 RF: 0 pantoprazole [Protonix] 40 mg tablet,delayed release (DR/EC) 40 mg PO DAILYBB Qty: 90 RF: 3 Narcan 4 mg/actuation spray,non-aerosol 4 mg intranasal DIRECTED PRN (Reason: OVERSEDATION) RF: 0 Eliquis 5 mg tablet 5 mg PO BID 30 Days Qty: 60 RF: 5 atorvastatin [Lipitor] 40 mg tablet 40 mg PO QDD RF: 0 aspirin [Aspirin Low Dose] 81 mg tablet,delayed release (DR/EC) 81 mg PO QAM RF: 0 albuterol sulfate [ProAir HFA] 90 mcg/actuation HFA aerosol inhaler 2 inh INHALATION DAILY RF: 0 Referrals Referrals: Edwin Valdez MD [Primary Care Provider] - Discharge Problem: Vomiting Qualifiers: Vomiting type: unspecified Nausea presence: unspecified Qualified Code(s): R11.10 - Vomiting, unspecified Pressure ulcer Qualifiers: Pressure injury location: unspecified location Pressure injury stage: unspecified pressure injury stage Qualified Code(s): L89.90 - Pressure ulcer of unspecified site, unspecified stage
[2021-11-03 20:55] LABS: Basophils # (auto) 0.02 K/uL (0-0.2); Basophils % (auto) 0.2 %; Hematocrit (blood only) 27.7 % (37-47); Immature Granulocytes # (auto) 0.09 K/uL (0.00-0.02); Immature Granulocytes % (auto) 0.9 %; Lymphocytes % (auto) 19.5 %; Mean Corpuscular Hemoglobin 33.9 pg (25-34); Mean Corpuscular Hgb Conc 36.1 g/dL (32-36); Mean Corpuscular Volume 93.9 fL (80-100); Mean Platelet Volume 10.7 fL (7.4-10.4); Monocytes # (auto) 0.98 K/uL (0.11-0.59); Monocytes % (auto) 9.5 %; Neutrophils # (auto) 7.19 K/uL (1.4-6.5); Neutrophils % (auto) 69.9 %; Platelet Count 346 K/uL (130-400); RDW Coefficient of Variation 14.9 % (11.5-14.5); RDW Standard Deviation 49.6 fL (36.4-46.3); Red Blood Count 2.95 M/uL (4.2-5.4); White Blood Count 10.28 K/uL (4.8-10.8)
[2021-11-03 21:14] LABS: Albumin Globulin Ratio 0.5 (0.9-2); Albumin Level 1.8 gm/dl (3.4-5.0); BUN Creatinine Ratio 20.7 (10-20); Bilirubin,Total 1.1 mg/dl (0.2-1.0); Calcium 6.7 mg/dl (8.5-10.1); Creatinine Clr Calc Pharmacy 63.2 ml/min; Est GFR (African American) 85.8 ml/min; Globulin 3.3 gm/dl (2.5-4.0); Potassium 3.9 mmol/L (3.5-5.1); Total Protein 5.1 gm/dl (6.0-8.3)
[2021-11-03] MEDS ORDERED: OPTIRAY 320 100ml IV ONE (21:42)
--- NOTE | 2021-11-03 21:58 | CT Scan Report ---
CT abd pelvis IV con only CLINICAL HISTORY: vomiting after eating TECHNIQUE: Helical axial images of the abdomen and pelvis were obtained and displayed. Automated dose lowering techniques and/or adjustment according to patient size were utilized for this exam. This e xam was performed with intravenous contrast. COMPARISON: Comparison is made to CT abdomen pelvis 09/02/2021 FINDINGS: Lower chest: Multiple wall thickening is seen which may be secondary to chronic inflammation. There is a 31 mm groundglass opacity in the lingula and an 8 mm nodule in the right lower lobe (series 3 im age 18). Liver: Hepatic steatosis is noted. Gallbladder and biliary tree: Patient is status post cholecystectomy. Physiologic prominence of the b iliary ducts is noted. Pancreas: Fatty replacement of the pancreas is seen. Spleen: Unremarkable. Adrenals: Unremarkable. Kidneys and ureters: A right nonobstructive stone is seen. Bladder: Limited evaluation due to underdistention. A tiny focus of air seen in the bladder. Reproductive organs: Patient is status post hysterectomy. Bowel: Diverticulosis is seen without evidence of diverticulitis. A hiatal hernia is seen. Lymph nodes Retroperitoneal: Subcentimeter lymph nodes are noted. Mesenteric: Unremarkable. Pelvic: Unremarkable. Peritoneum: Normal. Vessels: Atherosclerotic calcifications are seen. Abdominal wall: Unremarkable. Bones: Degenerative changes in the visualized spine. A right hip arthroplasty is seen. IMPRESSION: 1. No acute abnormalities. 2. 8mm nodule with satellite nodules in the right lower lobe which was not seen on chest CT performe d 01/05/2017. With additional groundglass and tree in bud nodularity in the left lung, this may repres ent infectious/inflammatory process. 3 month follow-up CT of the chest is recommended to exclude nanette gnancy. 3. Hepatic steatosis. 4. Additional findings as above. ACT 112: Negative or not required by law. Electronically signed by: Simba Mcclain M.D. 11/03/2021 9:57 PM
[2021-11-03] MEDS ORDERED: SODIUM CHLORIDE 0.9% 500 ML IV ONE (23:05)
[2021-11-04 01:08] LABS: Appearance Urine Cloudy (Clear); Bacteria Urine Automated 4+ (Negative); Blood Urine 3+ (Negative); Color Urine Dark Yellow; Epithelial Cell Urine Auto >30 /lpf (0-5); Glucose Urine UA Negative (Negative); Ketones Urine Trace (Negative); Leukocyte Esterase Urine Negative (Negative); Nitrite Urine Negative (Negative); Protein Urine Negative (Negative); Specific Gravity Urine > 1.045 (1.000-1.030); Urobilinogen Urine Negative (Negative)
--- NOTE | 2021-11-04 01:10 | History & Physical Report ---
Date of Service November 04, 2021 Assessment & Plan (1) Failure to thrive in adult: Plan: Would likely benefit from assessment for long-term facility (2) Weakness: Plan: Secondary to multiple medical issues Will need PT/OT assessment prior to discharge (3) Sacral decubitus ulcer: Plan: Consult wound care (4) Severe protein-calorie malnutrition: Plan: Albumin 1.8 upon admission Will be difficult for decubitus ulcers to heal without improving nutrition (5) Hyperlipidemia: Plan: Continue to lovastatin (6) GERD (gastroesophageal reflux disease): Plan: Continue pantoprazole (7) Chronic cerebral ischemia: Plan: Continue aspirin and apixaban (8) COPD (chronic obstructive pulmonary disease): Plan: Continue albuterol HFA History of Present Illness Chief Complaint: The patient is brought to the emergency department via ambulance due to progressive weakness, vomiting 2 to 3 hours after eating for the past several months, as referred by her PCP Primary Care Provider: Edwin Valdez MD The patient is a 66-year-old female with a past medical history including COPD, tobacco use disorder, hypertension, hyperlipidemia, GERD, depression with anxiety, chronic cerebral ischemia, carotid artery stenosis, history of brain surgery, anemia, septic arthritis of hip, history of revision of right MAXIMUS, pulm emboli, acute diastolic CHF, CKD stage IIIb, nausea and vomiting, and pressure ulcer. The patient was most recently admitted to [facility] from 09/02- 09/04/2021 for similar symptoms. At that time, symptoms were thought related to high-dose of Flagyl being used. Since that time, the patient has had persistent daily worsening generalized weakness and ability to ambulate Allergies Allergy/AdvReac Type Severity Reaction Status Date / Time No Known Allergies Allergy Verified 11/03/21 18:24 Home Medications Medication Instructions Recorded Confirmed Type albuterol sulfate 90 mcg/actuation 2 inh INHALATION DAILY 05/20/21 11/03/21 History aerosol inhaler (ProAir HFA) aspirin 81 mg tablet,delayed 81 mg PO QAM 05/20/21 11/03/21 History release (Aspirin Low Dose) atorvastatin 40 mg tablet (Lipitor) 40 mg PO QDD 05/20/21 11/03/21 History naloxone 4 mg/actuation nasal 4 mg INTRANASAL DIRECTED PRN ea 06/13/21 11/03/21 History spray (Narcan) apixaban 5 mg tablet (Eliquis) 5 mg PO BID 30 Days #60 tab 06/14/21 11/03/21 Rx pantoprazole 40 mg tablet,delayed 40 mg PO DAILYBB #90 tab 08/11/21 11/03/21 Rx release (Protonix) ondansetron 4 mg disintegrating 4 mg PO Q6H PRN #20 tab 10/17/21 11/03/21 Rx tablet oxycodone 5 mg tablet (Roxicodone) See Rx Instructions PO .COMPLEX 10/26/21 11/03/21 Rx #180 tab Past Med/Surg History Medical History Acute renal failure Asthma PT STATES TAKES RESCUE INHALER DAILY Carotid stenosis, left S/P L CEA (02/18/20) (Prior to CEA patient had 80% LICA stenosis ) Cerebral aneurysm Per records, pt unaware No significant aneurysm noted with head CTA and brain MRI from 01/2020 CKD (chronic kidney disease) stage III COPD (chronic obstructive pulmonary disease) CVA (cerebral vascular accident) CVA 02/11/20- no residual effects, follows with [facility], patient was on plavix until ~1 month after left CEA surgery, now on ASA 81mg Depression with anxiety GERD (gastroesophageal reflux disease) History of Meniere's disease History of prediabetes HGBA1C 6.1% on 01/28/21 History of revision of total replacement of right hip joint 03/25/[address] - [facility]; explantation old hardware, wound vac placement. History of septic shock 03/2021 - due to septic R hip; 04/2021 - again due to septic R hip - hospitalized [facility] each admission. Pseudomonas, proteus, oj albicans. Hyperlipidemia Hypertension Osteoarthritis Surgical History H/O carotid endarterectomy Left CEA: 02/18/20: Grade view 1 with head lift, MAC#3, ETT 7.0 at [facility] History of appendectomy History of bilateral tubal ligation History of brain surgery 5 years ago (Meniere's treatment/[facility]) History of History of cataract surgery R/L History of section x1 History of cholecystectomy History of cholecystectomy History of colonoscopy History of esophagogastroduodenoscopy (EGD) History of incision and drainage right hip - multiple I/D's, 03/2021-04/2021; [facility]. History of tonsillectomy History of tooth extraction History of total hip arthroplasty RT> with repair S/P carotid endarterectomy Status post revision of total hip replacement (~01/2021) Family History Mother Diabetes Family history of diabetes mellitus Sister Diabetes Family history of diabetes mellitus Arterial thrombosis Amputation of leg Father Heart disease Lung disease Other No family history of adverse response to anesthesia Denies family history of Ovarian cancer Prostate cancer Myocardial infarction Breast cancer Colorectal cancer Social History Smoking Status: Current every day smoker Tobacco Type: Cigarettes Age Started Using Tobacco: 17; Age Quit Using Tobacco: 65; packs per day: 1; Years Smoked: 55; Second Hand Exposure: Yes; Hx Alcohol Use: No Hx Substance Use: Yes Last Used Substance: Days (ago) Last Used Substance Other:: 08/31/2021 Substance Use Type Other:: daily use Preferred Language: Nicaraguan Communication Ability: Effective Visual Impairment: No Limitations Hearing Ability: Normal [employer] Required: No Beliefs That Will Affect Care: None marital status: Current Living Situation: Family Current Living Situation Comment: [facility] (normally with son and his fiance in her appt) current occupational status: retired 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 How many Children do You have: 2 How many Children do You have Comment: 1 child from suicide Feels Safe at Home: Yes Childhood Exposure to Second-Hand Smoke: Yes Dental Care, Regularly: No Physical Activity Frequency: Does not Exercise Seatbelt Use: always Sunscreen Use: No Assistive Devices: Denture - Upper and Wheelchair Review of Systems Review of Systems: The patient denies chest pain, palpitations, cough, lower extremity swelling, sore throat, fevers, chills, sweats, abdominal pain, pelvic pain, blood in urine or stool, dysuria, urinary frequency or urgency, lightheadedness, dizziness, headache, loss of consciousness, rash, abnormal bruising or bleeding, focal weakness, numbness or tingling in arms or legs, neck pain, or night sweats. The review of systems is otherwise negative other than for that already noted above, and at least 10 systems have been reviewed. Physical Exam Physical Exam: The patient is awake, alert and oriented 3, mildly lethargic, normocephalic and atraumatic, lying in bed and in no acute distress. HEENT--PERRL, EOMI, mucous membranes and oropharynx dry. Neck--supple. No JVD. No bruits. Thyroid normal, trachea midline, no adenopathy. Heart--normal S1 and S2. No murmurs, rubs or gallops. Lungs--clear bilaterally, no respiratory distress, no accessory muscle use. Abdomen--normal bowel sounds and soft. Nontender. Nondistended, no hernias or masses, no organomegaly. Extremities--no cyanosis or clubbing. No edema. Dermatologic--yeast in groin. Sacral decubiti stage I and stage II Neurologic--cranial nerves II through XII grossly intact. Rheumatologic--limited exam Psychiatric--normal affect. Results & Data Results & Data ([facility]) Vital Signs (Past 12 Hours) Vital Signs Temp Pulse Pulse Resp BP BP Pulse Ox 11/03/21 22:00 103 H 14 101/63 95 11/03/21 20:00 99 H 14 138/97 95 11/03/21 19:20 105 H 14 98 11/03/21 18:46 117 H 14 139/101 H 97 11/03/21 18:24 37.1 C 108 H 14 139/101 H 96 Laboratory Results Laboratory Results WBC 10.28 K/uL (4.8-10.8) 11/03/21 20:40 RBC 2.95 M/uL (4.2-5.4) L 11/03/21 20:40 Hgb 10.0 g/dL (12.0-16.0) L 11/03/21 20:40 Hct 27.7 % (37-47) L 11/03/21 20:40 MCV 93.9 fL (80-100) 11/03/21 20:40 MCH 33.9 pg (25-34) 11/03/21 20:40 MCHC 36.1 g/dL (32-36) H 11/03/21 20:40 RDW Std Deviation 49.6 fL (36.4-46.3) H 11/03/21 20:40 RDW Coeff of Crow 14.9 % (11.5-14.5) H 11/03/21 20:40 Plt Count 346 K/uL (130-400) 11/03/21 20:40 MPV 10.7 fL (7.4-10.4) H 11/03/21 20:40 Immature Gran % (Auto) 0.9 % 11/03/21 20:40 Neut % (Auto) 69.9 % 11/03/21 20:40 Lymph % (Auto) 19.5 % 11/03/21 20:40 [place] % (Auto) 9.5 % 11/03/21 20:40 Eos % (Auto) 0.0 % 11/03/21 20:40 Baso % (Auto) 0.2 % 11/03/21 20:40 Neut # (Auto) 7.19 K/uL (1.4-6.5) H 11/03/21 20:40 Lymph # (Auto) 2.00 K/uL (1.2-3.4) 11/03/21 20:40 [place] # (Auto) 0.98 K/uL (0.11-0.59) H 11/03/21 20:40 Eos # (Auto) 0.00 K/uL (0-0.5) 11/03/21 20:40 Baso # (Auto) 0.02 K/uL (0-0.2) 11/03/21 20:40 Immature Gran # (Auto) 0.09 K/uL (0.00-0.02) H 11/03/21 20:40 Sodium 133 mmol/L (136-145) L 11/03/21 20:40 Potassium 3.9 mmol/L (3.5-5.1) 11/03/21 20:40 Chloride 99 mmol/L (98-107) 11/03/21 20:40 Carbon Dioxide 30 mmol/L (21-32) 11/03/21 20:40 Anion Gap 4 (3-11) 11/03/21 20:40 BUN 17 mg/dl (6-23) 11/03/21 20:40 Creatinine 0.82 mg/dl (0.6-1.2) 11/03/21 20:40 Est Cr Clr Drug Dosing 63.2 ml/min 11/03/21 20:40 Est GFR ( Amer) 85.8 ml/min 11/03/21 20:40 Est GFR (Non-Af Amer) 74.0 ml/min 11/03/21 20:40 BUN/Creatinine Ratio 20.7 (10-20) H 11/03/21 20:40 Glucose 81 mg/dl (70-99(Fasting)) 11/03/21 20:40 Calcium 6.7 mg/dl (8.5-10.1) L 11/03/21 20:40 Total Bilirubin 1.1 mg/dl (0.2-1.0) H 11/03/21 20:40 AST 63 U/L (13-39) H 11/03/21 20:40 ALT 40 U/L (7-52) 11/03/21 20:40 Alkaline Phosphatase 146 U/L (34-104) H 11/03/21 20:40 Total Protein 5.1 gm/dl (6.0-8.3) L 11/03/21 20:40 Albumin 1.8 gm/dl (3.4-5.0) L 11/03/21 20:40 Globulin 3.3 gm/dl (2.5-4.0) 11/03/21 20:40 Albumin/Globulin Ratio 0.5 (0.9-2) L 11/03/21 20:40 Lipase 7 U/L (11-82) L 11/03/21 20:40 Urine Color Dark Yellow 11/04/21 00:56 Urine Appearance Cloudy (Clear) A 11/04/21 00:56 Urine pH 7.0 (4.5-7.5) 11/04/21 00:56 Ur Specific Kramer > 1.045 (1.000-1.030) H 11/04/21 00:56 Urine Protein Negative (Negative) 11/04/21 00:56 Urine Glucose (UA) Negative (Negative) 11/04/21 00:56 Urine Ketones Trace (Negative) H 11/04/21 00:56 Urine Blood 3+ (Negative) H 11/04/21 00:56 Urine Nitrite Negative (Negative) 11/04/21 00:56 Urine Bilirubin 1+ (Negative) H 11/04/21 00:56 Urine Urobilinogen Negative (Negative) 11/04/21 00:56 Ur Leukocyte Esterase Negative (Negative) 11/04/21 00:56 Urine WBC (Auto) 10-30 /hpf (0-5) H 11/04/21 00:56 Urine RBC (Auto) 10-30 /hpf (0-4) H 11/04/21 00:56 U Hyaline Cast (Auto) 1-5 /lpf (0-5) 11/04/21 00:56 U Epithel Cells (Auto) >30 /lpf (0-5) H 11/04/21 00:56 Urine Bacteria (Auto) 4+ (Negative) H 11/04/21 00:56 Ur Renal Epithelial Cell 5-10 /lpf (0-5) H 11/04/21 00:56 Urine Crystals Cancelled 11/03/21 21:23 Calcium Oxalate Crystal Present (None Prsent) A 11/04/21 00:56 Uric Acid Crystals Cancelled 11/03/21 21:23 Triple Phos Crystals Cancelled 11/03/21 21:23 Other Crystals Cancelled 11/03/21 21:23 Amorphous Sediment Cancelled 11/03/21 21:23 Granular Casts 5-10 /lpf (0) H 11/04/21 00:56 Waxy Casts Cancelled 11/03/21 21:23 RBC Casts Cancelled 11/03/21 21:23 WBC Casts Cancelled 11/03/21 21:23 Other Casts Cancelled 11/03/21 21:23 Urine Mucus Cancelled 11/03/21 21:23 Urine Other Cancelled 11/03/21 21:23 Urine Trichomonas Cancelled 11/03/21 21:23 Urine Yeast Cancelled 11/03/21 21:23 Urine Sperm Cancelled 11/03/21 21:23 Ur Oval Fat Bodies Cancelled 11/03/21 21:23 SARS-CoV-2, RNA, NAAT POSITIVE (NEGATIVE) A* 11/04/21 01:22 Impressions Abdomen/Pelvis CT 11/03/21 18:58 CT abd pelvis IV con only CLINICAL HISTORY: vomiting after eating TECHNIQUE: Helical axial images of the abdomen and pelvis were obtained and displayed. Automated dose lowering techniques and/or adjustment according to patient size were utilized for this exam. This exam was performed with intravenous contrast. COMPARISON: Comparison is made to CT abdomen pelvis 09/02/2021 FINDINGS: Lower chest: Multiple wall thickening is seen which may be secondary to chronic inflammation. There is a 31 mm groundglass opacity in the lingula and an 8 mm nodule in the right lower lobe (series 3 image 19). Liver: Hepatic steatosis is noted. Gallbladder and biliary tree: Patient is status post cholecystectomy. Physiologic prominence of the biliary ducts is noted. Pancreas: Fatty replacement of the pancreas is seen. Spleen: Unremarkable. Adrenals: Unremarkable. Kidneys and ureters: A right nonobstructive stone is seen. Bladder: Limited evaluation due to underdistention. A tiny focus of air seen in the bladder. Reproductive organs: Patient is status post hysterectomy. Bowel: Diverticulosis is seen without evidence of diverticulitis. A hiatal hernia is seen. Lymph nodes Retroperitoneal: Subcentimeter lymph nodes are noted. Mesenteric: Unremarkable. Pelvic: Unremarkable. Peritoneum: Normal. Vessels: Atherosclerotic calcifications are seen. Abdominal wall: Unremarkable. Bones: Degenerative changes in the visualized spine. A right hip arthroplasty is seen. IMPRESSION: 1. No acute abnormalities. 2. 8mm nodule with satellite nodules in the right lower lobe which was not seen on chest CT performed 01/05/2017. With additional groundglass and tree in bud nodularity in the left lung, this may represent infectious/inflammatory process. 3 month follow-up CT of the chest is recommended to exclude malignancy. 3. Hepatic steatosis. 4. Additional findings as above. ACT 112: Negative or not required by law. Electronically signed by: Simba Mcclain M.D. 11/03/2021 9:57 PM Code Status & VTE Plan Code Status Full code VTE Prophylaxis Plan VTE Prophylaxis will be ordered: Yes PG Care Time/CCT Total # of Minutes Spent Total Time Spent with Patient: Total time spent is greater than 50% in coordination of care (as documented) at patient's floor/unit and/or counseling patient: Coding Level of Care Code 74793 Initial Inpt Care Lvl 3 Diagnoses COPD (chronic obstructive pulmonary disease) J42 COPD type: chronic bronchitis Chronic bronchitis type: unspecified Hyperlipidemia E78.5 GERD (gastroesophageal reflux disease) K21.9 Chronic cerebral ischemia I67.82 Severe protein-calorie malnutrition E43 Sacral decubitus ulcer L89.159 Weakness R53.1 Failure to thrive in adult R62.7 (1) COPD (chronic obstructive pulmonary disease) COPD type: chronic bronchitis Chronic bronchitis type: unspecified Qualified Code(s): J42 - Unspecified chronic bronchitis
[2021-11-04 01:35] LABS: Bilirubin Urine 1+ (Negative)
[2021-11-04 01:37] LABS: Calcium Oxalate Crystals Urine Present (None Prsent)
[2021-11-04] MEDS ORDERED: ONDANSETRON INJ 2 MG/ML 2 ML VIAL IV PRN (03:45)
[2021-11-04] MEDS: LACTATED RINGER'S 1,000 ML IV SCH ×2 (05:20→19:53)
[2021-11-04 05:23] LABS: Hematocrit (blood only) 26.6 % (37-47); Mean Corpuscular Hemoglobin 35.7 pg (25-34); Mean Corpuscular Hgb Conc 37.6 g/dL (32-36); Mean Platelet Volume 11.1 fL (7.4-10.4); Platelet Count 362 K/uL (130-400); RDW Coefficient of Variation 14.9 % (11.5-14.5); RDW Standard Deviation 49.2 fL (36.4-46.3); White Blood Count 9.81 K/uL (4.8-10.8)
[2021-11-04 05:31] LABS: INR 1.5 (0.9-1.1); Prothrombin Time 15.1 Seconds (9.0-12.0)
[2021-11-04 06:01] LABS: Albumin Globulin Ratio 0.5 (0.9-2); Albumin Level 1.7 gm/dl (3.4-5.0); BUN Creatinine Ratio 21.3 (10-20); Calcium 6.4 mg/dl (8.5-10.1); Creatinine Clr Calc Pharmacy 69.1 ml/min; Est GFR (African American) 95.6 ml/min; Est GFR (Non-African American) 82.5 ml/min; Globulin 3.2 gm/dl (2.5-4.0); Potassium 3.2 mmol/L (3.5-5.1); Total Protein 4.9 gm/dl (6.0-8.3)
[2021-11-04 06:52] LABS: ALC (manual) 2.69 K/uL (1.2-3.4); ANC (manual) 5.91 K/uL (1.4-6.5); Agglutinated RBC 1+; Basophils # (manual) 0.09 K/uL (0-0.2); Basophils % (manual) 0.9 %; Lymphocytes # (manual) 2.69 K/uL (1.2-3.4); Lymphocytes % (manual) 27.4 %; Metamyelocytes # (manual) 0.09 K/uL (0-0); Metamyelocytes % (manual) 0.9 %; Monocytes # (manual) 0.86 K/uL (0.11-0.59); Monocytes % (manual) 8.8 %; Myelocytes # (manual) 0.18 K/uL (0-0); Myelocytes % (manual) 1.8 %; Neutrophils # (manual) 5.91 K/uL (1.4-6.5); Neutrophils % (manual) 60.2 %
[2021-11-04] MEDS: FAMOTIDINE 20 MG in SYRINGE 3 ML IV SCH ×2 (07:49→18:08)
--- NOTE | 2021-11-04 16:58 | History & Physical Bridge Note ---
Date of Service November 04, 2021 History & Physical Bridge Note I have examined the patient, reviewed the History & Physical and in the interval since the performance of the History & Physical I have noted the following changes of clinical significance: no changes noted Stable today. No nausea and actually has an appetite, so will advance diet. No indication of volume overload, so will continue IV fluids for now. Incidentally positive for Covid which might explain nausea, vomiting, fatigue, as well as mild transaminitis. Will replete K+. PT/OT; likely placement.
[2021-11-04] MEDS: POTASSIUM CHLORIDE 10 MEQ TABCR PO SCH ×2 (18:09→20:46)
--- NOTE | 2021-11-04 21:15 | Electrocardiogram Report ---
Test Reason : Blood Pressure : / mmHG Vent. Rate : 101 BPM Atrial Rate : 101 BPM P-R Int : 132 ms QRS Dur : 078 ms QT Int : 308 ms P-R-T Axes : 080 065 021 degrees QTc Int : 399 ms Poor data quality, interpretation may be adversely affected Sinus tachycardia with Premature ventricular complexes Low voltage QRS Nonspecific ST and T wave abnormality Abnormal ECG When compared with ECG of 02-SEP-2021 16:39, No significant change Confirmed by Homer Sinclair ([id number]) on 11/04/2021 9:14:38 PM Referred By: REFERRED SELF Confirmed By:Homer Sinclair
[2021-11-05] MEDS: FAMOTIDINE 20 MG in SYRINGE 3 ML IV SCH ×2 (05:49→19:30)
[2021-11-05] MEDS: LACTATED RINGER'S 1,000 ML IV SCH (05:49)
[2021-11-05 06:40] LABS: Hematocrit (blood only) 26.5 % (37-47); Hemoglobin 9.3 g/dL (12.0-16.0); Mean Corpuscular Hemoglobin 32.7 pg (25-34); Mean Corpuscular Hgb Conc 35.1 g/dL (32-36); Mean Corpuscular Volume 93.3 fL (80-100); Mean Platelet Volume 10.6 fL (7.4-10.4); Platelet Count 331 K/uL (130-400); RDW Standard Deviation 49.4 fL (36.4-46.3); Red Blood Count 2.84 M/uL (4.2-5.4); White Blood Count 10.53 K/uL (4.8-10.8)
[2021-11-05 07:25] LABS: INR 1.4 (0.9-1.1); Partial Thromboplastin Ratio 1.1; Partial Thromboplastin Time 28.3 Seconds (21.0-31.0); Prothrombin Time 13.6 Seconds (9.0-12.0)
[2021-11-05 07:32] LABS: Albumin Globulin Ratio 0.5 (0.9-2); Albumin Level 1.7 gm/dl (3.4-5.0); BUN Creatinine Ratio 21.8 (10-20); Calcium 6.6 mg/dl (8.5-10.1); Creatinine Clr Calc Pharmacy 94.2 ml/min; Est GFR (African American) 112.5 ml/min; Est GFR (Non-African American) 97.1 ml/min; Globulin 3.2 gm/dl (2.5-4.0); Potassium 4.6 mmol/L (3.5-5.1); Total Protein 4.9 gm/dl (6.0-8.3)
[2021-11-05 07:44] LABS: Basophils # (auto) 0.02 K/uL (0-0.2); Basophils % (auto) 0.2 %; Eosinophils # (auto) 0.02 K/uL (0-0.5); Eosinophils % (auto) 0.2 %; Immature Granulocytes # (auto) 0.06 K/uL (0.00-0.02); Immature Granulocytes % (auto) 0.6 %; Lymphocytes # (auto) 2.38 K/uL (1.2-3.4); Lymphocytes % (auto) 22.6 %; Monocytes # (auto) 1.14 K/uL (0.11-0.59); Monocytes % (auto) 10.8 %; Neutrophils # (auto) 6.91 K/uL (1.4-6.5); Neutrophils % (auto) 65.6 %; Rouleaux 1+
[2021-11-05] MEDS ORDERED: oxyCODONE HCL IR 5 MG TAB (IMMEDIATE RELEASE) PO PRN (08:12)
[2021-11-05] MEDS: D5W AND NSS 1,000 ML IV SCH ×2 (09:14→17:46)
[2021-11-05] MEDS: MIDODRINE HCL 2.5 MG TAB PO SCH ×3 (09:36→17:46)
--- NOTE | 2021-11-05 10:24 | XRay Report ---
SINGLE VIEW CHEST CLINICAL HISTORY: Covid. FINDINGS: An AP, portable, semierect chest radiograph is compared to study dated 05/21/2021. Correlatio n is made with chest CT dated 01/05/2017. The examination is degraded by portable technique and apical lordotic positioning. The cardiomediastinal silhouette is unremarkable. Chronic interstitial thicke raghu is similar to previous. There is bibasilar scarring/atelectasis. No airspace consolidation or la rge pleural effusion is identified. No pneumothorax is seen. The skeletal structures are osteopenic. The bony thorax is grossly intact. Arthritic change is noted in the shoulders. IMPRESSION: No acute cardiopulmonary abnormality. ACT 112: Negative or not required by law. Electronically signed by: Jp Luna M.D. 11/05/2021 10:22 AM
[2021-11-05] MEDS: DAPTOmycin 225 MG in SYRINGE 0 ML IV SCH (10:34)
--- NOTE | 2021-11-05 10:54 | XRay Report ---
KUB CLINICAL HISTORY: Postprandial vomiting. FINDINGS: 2 AP supine abdominal radiographs are correlated with abdominal CT dated 11/03/2021. Cholecy stectomy clips are seen in the right upper quadrant. There is no bowel obstruction. No evidence of in traperitoneal free air is seen on these supine images. There are no abnormal abdominal calcifications . Phleboliths are noted in the pelvis. The skeletal structures are osteopenic and appear intact. Ther e is lumbosacral spondylosis. A right hip arthroplasty is in place. IMPRESSION: Nonobstructed abdominal bowel gas pattern. Electronically signed by: Jp Luna M.D. 11/05/2021 10:53 AM
--- NOTE | 2021-11-05 21:09 | Hospitalist Progress Note ---
Date of Service November 05, 2021 Assessment & Plan (1) Lab test positive for detection of COVID-19 virus: (2) Urinary tract infection: (3) Depression: (4) Hypotension: (5) Failure to thrive in adult: Plan: Would likely benefit from assessment for group home facility (6) Weakness: Plan: Secondary to multiple medical issues Will need PT/OT assessment prior to discharge (7) Sacral decubitus ulcer: Plan: Consult wound care (8) Severe protein-calorie malnutrition: Plan: Albumin 1.8 upon admission Will be difficult for decubitus ulcers to heal without improving nutrition (9) Hyperlipidemia: Plan: Continue to lovastatin (10) GERD (gastroesophageal reflux disease): Plan: Continue pantoprazole (11) Chronic cerebral ischemia: Plan: Continue aspirin and apixaban (12) COPD (chronic obstructive pulmonary disease): Plan: Continue albuterol HFA (13) Anemia: (14) History of septic arthritis: (15) DVT prophylaxis: Plan: 1. hypotension - check cortisol level, resume midodrine - start 5mg TID. Suspect some volume depletion; can't rule out early sepsis. 2. hypoglycemia - poor appetite, poor reserve (low albumin, <2) - add glucose to fluids. 3. COVID positive test - thus far only symptom is fatigue/weakness? monitor for other symptoms. Thus far no evidence of pneumonia. Check cxr. 4. enterococcal UTI - has h/o VRE - start daptomycin IV daily. 5. depression - in light of FTT, low albumin, etc - start remeron 7.5mg HS. 6. post-prandial emesis - KUB xray to start. PPI, H2 idalia. Ideally she has EGD, but with #3 uncertain of timing of such. She had emesis during her hospital stay this past summer when I cared for her. Suspected to be severe GERD. 7. Resume asa, eliquis. 8. sacral decub - add MVI, add zinc, add vit C. Wound care consult. Need for advanced imaging to r/o deeper infection? she has declined considerably since my last visit with her in summer 2020 extensive weight loss, now bedbound, decubs, etc left message for family on voicemail this evening Admission and Anticipated Discharge Date Admission Date: November 04, 2021 Subjective patient with multiple complaints - dysphagia - points to throat/neck as location of the issue; was to have EGD this past fall - never went to get it post-prandial vomiting - chronic, intermittent depression - states only present for 1 week (?) - stopped her wellbutrin, was blaming her nausea/ emesis on the wellbutrin weakness - bedbound essentially for several months buttock pain - due to large sacral decubitus ulcer urinary incontinence - chronic, but recently worse extreme fatigue - present for several days COVID - uncertain how she was exposed, but she lives with her son who works outside the home; son's girlfriend helps with her care; there is another family member that comes into the home to help as well review of records - previously was on midodrine for relative hypotension but was not taking at time of this admission Review of Systems Review of Systems: gen - no fevers or chills HENT - no sore throat; no loss of taste or smell CV - no chest pain, no orthopnea pulm - no cough or dyspnea GI - no abd pain Physical Exam Physical Exam: gen - looks weak, laying flat in bed comfortably mouth - MM dry heart - RRR, s1 s2 lungs - decreased BS bases, CTA b/l otherwise abd - soft NT ND BS+ ext - pulses 2+ b/l psych - tearful, depressed skin - pallor; I did NOT examine his buttock wounds but staff report very large decubitus ulcer Results & Data Results & Data ([facility]) Vital Signs (Past 12 Hours) Vital Signs Temp Pulse Resp BP Pulse Ox 11/05/21 17:35 36.9 C 107 H 16 95/53 L 100 Laboratory Results cbc, bmp, lfts noted urine cx - enterococcus, >100,000 CFU hypoglycemia noted on AM bmp PG Care Time/CCT Total # of Minutes Spent Total Time Spent with Patient: Total time spent is greater than 50% in coordination of care (as documented) at patient's floor/unit and/or counseling patient: Coding Level of Care Code 80488 Subseq Hosp Care Lvl 3 Diagnoses Failure to thrive in adult R62.7 Weakness R53.1 Sacral decubitus ulcer L89.159 Severe protein-calorie malnutrition E43 Hyperlipidemia E78.5 GERD (gastroesophageal reflux disease) K21.9 Chronic cerebral ischemia I67.82 COPD (chronic obstructive pulmonary disease) J42 COPD type: chronic bronchitis Chronic bronchitis type: unspecified Lab test positive for detection of COVID-19 virus U07.1 Hypotension I95.9 Anemia D64.9 Anemia type: unspecified type Urinary tract infection N39.0 History of septic arthritis Z87.39 Depression F32.A DVT prophylaxis Z29.9 (1) COPD (chronic obstructive pulmonary disease) COPD type: chronic bronchitis Chronic bronchitis type: unspecified Qualified Code(s): J42 - Unspecified chronic bronchitis (2) Anemia Anemia type: unspecified type Qualified Code(s): D64.9 - Anemia, unspecified
[2021-11-05] MEDS: MIRTAZAPINE SOLTAB 15 MG PO SCH (21:36)
[2021-11-05] MEDS: oxyCODONE HCL IR 5 MG TAB (IMMEDIATE RELEASE) PO PRN (21:36)
[2021-11-06] MEDS: FAMOTIDINE 20 MG in SYRINGE 3 ML IV SCH ×2 (06:14→17:41)
[2021-11-06] MEDS: D5W AND NSS 1,000 ML IV SCH ×3 (07:49→21:27)
[2021-11-06 07:50] LABS: Hematocrit (blood only) 27.4 % (37-47); Hemoglobin 9.3 g/dL (12.0-16.0); Mean Corpuscular Hemoglobin 31.2 pg (25-34); Mean Corpuscular Hgb Conc 33.9 g/dL (32-36); Mean Corpuscular Volume 91.9 fL (80-100); Mean Platelet Volume 10.3 fL (7.4-10.4); Platelet Count 298 K/uL (130-400); RDW Coefficient of Variation 15.3 % (11.5-14.5); RDW Standard Deviation 49.9 fL (36.4-46.3); Red Blood Count 2.98 M/uL (4.2-5.4); White Blood Count 9.37 K/uL (4.8-10.8)
[2021-11-06] MEDS: MIDODRINE HCL 2.5 MG TAB PO SCH ×3 (07:55→17:40)
[2021-11-06 08:09] LABS: Albumin Globulin Ratio 0.6 (0.9-2); Albumin Level 1.6 gm/dl (3.4-5.0); BUN Creatinine Ratio 16.4 (10-20); Bilirubin,Total 0.8 mg/dl (0.2-1.0); Calcium 6.7 mg/dl (8.5-10.1); Creatinine Clr Calc Pharmacy 94.2 ml/min; Est GFR (African American) 112.5 ml/min; Est GFR (Non-African American) 97.1 ml/min; Globulin 2.9 gm/dl (2.5-4.0); Magnesium 1.3 mg/dl (1.7-2.4); Total Protein 4.5 gm/dl (6.0-8.3)
[2021-11-06 08:46] LABS: Basophils # (auto) 0.03 K/uL (0-0.2); Basophils % (auto) 0.3 %; Eosinophils # (auto) 0.04 K/uL (0-0.5); Eosinophils % (auto) 0.4 %; Immature Granulocytes # (auto) 0.07 K/uL (0.00-0.02); Immature Granulocytes % (auto) 0.7 %; Lymphocytes # (auto) 2.62 K/uL (1.2-3.4); Monocytes # (auto) 1.15 K/uL (0.11-0.59); Monocytes % (auto) 12.3 %; Neutrophils # (auto) 5.46 K/uL (1.4-6.5); Neutrophils % (auto) 58.3 %
[2021-11-06] MEDS: MAGNESIUM SULFATE / D5W 1 GM/100 ML BAG IV SCH ×3 (10:52→15:20)
[2021-11-06] MEDS: DAPTOmycin 225 MG in SYRINGE 0 ML IV SCH (10:55)
[2021-11-06] MEDS: ZINC SULFATE 220 MG CAPSULE PO SCH (11:05)
[2021-11-06] MEDS: ASCORBIC ACID 500 MG TAB PO SCH (11:05)
[2021-11-06] MEDS: ASPIRIN 81 MG ECTAB PO SCH (11:06)
[2021-11-06] MEDS: APIXABAN 5 MG TABLET PO SCH ×2 (11:06→21:28)
[2021-11-06] MEDS: CEROVITE ADV FORMULA TAB PO SCH (11:06)
[2021-11-06] MEDS: PANTOprazole 40 MG TAB PO SCH (11:06)
[2021-11-06] MEDS: oxyCODONE HCL IR 5 MG TAB (IMMEDIATE RELEASE) PO PRN (11:11)
[2021-11-06] MEDS ORDERED: DAPTOmycin 225 MG in SYRINGE 0 ML IV SCH (12:30)
[2021-11-06] MEDS: MIRTAZAPINE SOLTAB 15 MG PO SCH (21:28)
--- NOTE | 2021-11-06 22:18 | Hospitalist Progress Note ---
Date of Service November 06, 2021 Assessment & Plan (1) Lab test positive for detection of COVID-19 virus: Plan: Repeat COVID test - at her request - again positive. Keep in airborne isolation. She got very weak several days prior to admission - suspect COVID started then. Will recommend to family & caregivers that they get tested. Thus far o2 sats and pulmonary status are very stable. (2) Urinary tract infection: Plan: 2nd VRE - daptomycin x 7 days (3) Depression: Plan: remeron 7.5mg HS tolerated first dose last pm (4) Hypotension: (5) Failure to thrive in adult: Plan: Would likely benefit from assessment for retirement facility (6) Weakness: Plan: Secondary to multiple medical issues Will need PT/OT assessment prior to discharge (7) Sacral decubitus ulcer: Plan: Consult wound care (8) Severe protein-calorie malnutrition: Plan: Albumin 1.8 upon admission Will be difficult for decubitus ulcers to heal without improving nutrition thus far, however, her appetite has improved here and she is keeping food down (9) Hyperlipidemia: Plan: Continue lovastatin (10) GERD (gastroesophageal reflux disease): Plan: Continue pantoprazole (11) Chronic cerebral ischemia: Plan: Continue aspirin and apixaban (12) COPD (chronic obstructive pulmonary disease): Plan: Continue albuterol HFA (13) Anemia: (14) History of septic arthritis: Plan: RIGHT Hip - with resulting septic shock prolonged [place] [address] [facility] [place] 2nd to such finished abx and antifungals in late 2020 (15) DVT prophylaxis: Plan: eliquis (16) Hypomagnesemia: Plan: replace IV repeat level am Plan: 1. hypotension - cortisol level 16; resumed midodrine at 5mg TID. Can likely stop fluids in am tomorrow. Creatinine has been stable. 2. hypoglycemia - poor appetite, poor reserve (low albumin, <2) - added glucose to fluids with resolution. 3. COVID positive test - thus far only symptom is fatigue/weakness? monitor f or other symptoms. Thus far no evidence of pneumonia. CXR w/o obvious pneumonia. Repeat test also +. 4. VRE - daptomycin IV daily x 1 week. 5. depression - in light of FTT, low albumin, etc - started remeron 7.5mg HS. 6. post-prandial emesis - KUB xray unremarkable. PPI, H2 idalia. Ideally she has EGD, but with #3 uncertain of timing of such. She had emesis during her hospital stay this past summer when I cared for her. Suspected to be severe GERD. This is improved. 7. Resumed asa, eliquis. 8. sacral decub - added MVI, added zinc, added vit C. Wound care consult. Need for advanced imaging to r/o deeper infection? will await the consult she has declined considerably since my last visit with her in summer 2020 extensive weight loss, now bedbound, decubs, etc left message for family on voicemail yesterday evening Admission and Anticipated Discharge Date Admission Date: November 04, 2021 Subjective patient slept "really good" last night eating fine without any intolerance/vomiting doesn't mention any dysphagia no cp, no abd pain, no dyspnea patient had told nursing staff this am that she thought that perhaps her COVID test was falsely positive she requested a 2nd test -- this returned positive today I explained to her that her caregivers/family should get tested Review of Systems Review of Systems: gen - no fevers or chills; still VERY tired/fatigued CV - no orthopnea pulm - no cough/congestion HENT - no sore throat, sinus congestion, no loss of taste or smell GI - no diarrhea musculo - no myalgias Physical Exam Physical Exam: gen - looks modestly better today but still weak mouth - MMM heart - RRR, s1 s2 lungs - decreased BS bases, CTA b/l otherwise abd - soft NT ND BS+ ext - pulses 2+ b/l skin - pallor Results & Data Results & Data ([facility]) Vital Signs (Past 12 Hours) Vital Signs Temp Pulse Resp Pulse Ox 11/06/21 16:29 36.8 C 85 18 94 Laboratory Results Laboratory Results - last 24 hr 11/06/21 11/06/21 11/06/21 07:21 07:21 15:34 WBC 9.37 RBC 2.98 L Hgb 9.3 L Hct 27.4 L MCV 91.9 MCH 31.2 MCHC 33.9 RDW Std Deviation 49.9 H RDW Coeff of Crow 15.3 H Plt Count 298 MPV 10.3 Immature Gran % (Auto) 0.7 Neut % (Auto) 58.3 Lymph % (Auto) 28.0 [place] % (Auto) 12.3 Eos % (Auto) 0.4 Baso % (Auto) 0.3 Neut # (Auto) 5.46 Lymph # (Auto) 2.62 [place] # (Auto) 1.15 H Eos # (Auto) 0.04 Baso # (Auto) 0.03 Immature Gran # (Auto) 0.07 H Sodium 140 Potassium 4.0 Chloride 110 H Carbon Dioxide 27 Anion Gap 3 BUN 9 Creatinine 0.55 L Est Cr Clr Drug Dosing 94.2 Est GFR ( Amer) 112.5 Est GFR (Non-Af Amer) 97.1 BUN/Creatinine Ratio 16.4 Glucose 78 Calcium 6.7 L Magnesium 1.3 L Total Bilirubin 0.8 AST 53 H ALT 33 Alkaline Phosphatase 117 H Total Protein 4.5 L Albumin 1.6 L Globulin 2.9 Albumin/Globulin Ratio 0.6 L SARS-CoV-2, RNA, NAAT POSITIVE A* PG Care Time/CCT Total # of Minutes Spent Total Time Spent with Patient: Total time spent is greater than 50% in coordination of care (as documented) at patient's floor/unit and/or counseling patient: Coding Level of Care Code 73354 Subseq Hosp Care Lvl 3 Diagnoses Lab test positive for detection of COVID-19 virus U07.1 Urinary tract infection N39.0 Depression F32.A Hypotension I95.9 Failure to thrive in adult R62.7 Weakness R53.1 Sacral decubitus ulcer L89.159 Severe protein-calorie malnutrition E43 Hyperlipidemia E78.5 GERD (gastroesophageal reflux disease) K21.9 Chronic cerebral ischemia I67.82 COPD (chronic obstructive pulmonary disease) J42 COPD type: chronic bronchitis Chronic bronchitis type: unspecified Anemia D64.9 Anemia type: unspecified type History of septic arthritis Z87.39 DVT prophylaxis Z29.9 Hypomagnesemia E83.42 (1) Anemia Anemia type: unspecified type Qualified Code(s): D64.9 - Anemia, unspecified (2) COPD (chronic obstructive pulmonary disease) COPD type: chronic bronchitis Chronic bronchitis type: unspecified Qualified Code(s): J42 - Unspecified chronic bronchitis
[2021-11-07] MEDS: D5W AND NSS 1,000 ML IV SCH ×2 (05:44→10:52)
[2021-11-07] MEDS: FAMOTIDINE 20 MG in SYRINGE 3 ML IV SCH (05:45)
[2021-11-07] MEDS: PANTOprazole 40 MG TAB PO SCH (05:45)
[2021-11-07 07:07] LABS: Calcium 6.6 mg/dl (8.5-10.1); Creatinine Clr Calc Pharmacy 110.3 ml/min; Est GFR (African American) 118.5 ml/min; Est GFR (Non-African American) 102.2 ml/min; Potassium 3.6 mmol/L (3.5-5.1)
[2021-11-07] MEDS: ZINC SULFATE 220 MG CAPSULE PO SCH (08:26)
[2021-11-07] MEDS: APIXABAN 5 MG TABLET PO SCH ×2 (08:26→19:53)
[2021-11-07] MEDS: CEROVITE ADV FORMULA TAB PO SCH (08:26)
[2021-11-07] MEDS: ASCORBIC ACID 500 MG TAB PO SCH (08:27)
[2021-11-07] MEDS: MIDODRINE HCL 2.5 MG TAB PO SCH ×3 (08:27→17:39)
[2021-11-07] MEDS: ASPIRIN 81 MG ECTAB PO SCH (08:27)
[2021-11-07] MEDS ORDERED: ERGOCALCIFEROL 50,000 UNITS 1250 MCG CAP PO ONE (09:40)
[2021-11-07] MEDS: DAPTOmycin 450 MG in SYRINGE 0 ML IV SCH (10:52)
[2021-11-07] MEDS: oxyCODONE HCL IR 5 MG TAB (IMMEDIATE RELEASE) PO PRN ×2 (10:58→19:59)
[2021-11-07] MEDS: MIRTAZAPINE SOLTAB 15 MG PO SCH (19:53)
[2021-11-07] MEDS: FAMOTIDINE 20 MG TAB PO SCH (19:53)
--- NOTE | 2021-11-07 21:16 | Hospitalist Progress Note ---
Date of Service November 07, 2021 Assessment & Plan (1) Lab test positive for detection of COVID-19 virus: Plan: COVID test x 2 positive. Still is having severe fatigue, weakness, and myalgias but fortunately no significant pulmonary symptoms. She got very weak several days prior to admission - suspect COVID started then. Recommended to pt's daughter that any exposed family & caregivers get tested. Cont supportive care. (2) Urinary tract infection: Plan: 2nd VRE - daptomycin x 7 days day #2 today (3) Depression: Plan: remeron 7.5mg HS in 1-2 weeks increase to 15mg HS (4) Hypotension: Plan: consider cosyntropin stim test (cortisol level was 16 - would have expected more robust level given her COVID, VRE UTI, sacral decub, etc) (5) Failure to thrive in adult: Plan: Would likely benefit from assessment for [facility] facility (6) Weakness: Plan: Secondary to multiple medical issues PT, OT (7) Sacral decubitus ulcer: Plan: Consulted wound care and recs appreciated Consider appetite stimulant due to significant anorexia MVI, vit C, zinc (8) Severe protein-calorie malnutrition: Plan: Albumin 1.8 upon admission Will be difficult for decubitus ulcers to heal without improving nutrition see above (9) Hyperlipidemia: Plan: Continue lovastatin (10) GERD (gastroesophageal reflux disease): Plan: Continue pantoprazole (11) Chronic cerebral ischemia: Plan: Continue aspirin and apixaban (12) COPD (chronic obstructive pulmonary disease): Plan: Continue albuterol HFA (13) Anemia: Plan: check Fe studies and folate in am prior B12 level was wnl (14) History of septic arthritis: Plan: RIGHT Hip - with resulting septic shock prolonged hospitalization in [place] at [facility] [place]nd to such finished abx and antifungals in late 2020 (15) DVT prophylaxis: Plan: eliquis (16) Hypomagnesemia: Plan: replaced and resolved (17) Vitamin D deficiency: Plan: vit D level = 15 ergocalciferol 50,000 weekly x 8 weeks Plan: she has declined considerably since my last visit with her in summer 2020 extensive weight loss, now bedbound, decubs, etc daughter extensively updated by phone today; lengthy conversation, questions answered Admission and Anticipated Discharge Date Admission Date: November 04, 2021 Subjective updated pt's daughter extensively by phone this am discussed all current issues - UTI, COVID, sacral decub, immobility, etc during bedside rounds pt states she has nasal congestion no cough or dyspnea however no chest pain sleeping well appetite fair at best still no loss of taste/smell Review of Systems Review of Systems: gen - no fevers, no chills; fatigue, weak, "I just want to sleep" musculo - diffuse myalgias cv - no chest pain or orthopnea pulm - no wheezing Physical Exam Physical Exam: gen - NAD, mouth - MMM heart - RRR, s1 s2, no murmur lungs - decreased BS bases, CTA b/l otherwise abd - soft NT ND BS+ ext - pulses 2+ b/l, no edema musculo - right leg internally rotated skin - pallor, scars over lateral R leg/thigh psych - restricted affect Results & Data Results & Data ([facility]) Vital Signs (Past 12 Hours) Vital Signs Temp Pulse Resp BP Pulse Ox 11/07/21 15:31 36.7 C 88 16 96/61 L 97 Laboratory Results Laboratory Results - last 24 hr 11/07/21 11/07/21 11/07/21 06:29 06:29 12:18 Sodium 139 Potassium 3.6 Chloride 112 H Carbon Dioxide 24 Anion Gap 3 BUN 8 Creatinine 0.47 L Est Cr Clr Drug Dosing 110.3 Est GFR ( Amer) 118.5 Est GFR (Non-Af Amer) 102.2 BUN/Creatinine Ratio 17.0 Glucose 85 POC Glucose 121 H Calcium 6.6 L Magnesium 2.0 25-OH Vitamin D Total 15.5 L 11/07/21 17:32 Sodium Potassium Chloride Carbon Dioxide Anion Gap BUN Creatinine Est Cr Clr Drug Dosing Est GFR ( Amer) Est GFR (Non-Af Amer) BUN/Creatinine Ratio Glucose POC Glucose 108 H Calcium Magnesium 25-OH Vitamin D Total PG Care Time/CCT Total # of Minutes Spent Total Time Spent with Patient: Total time spent is greater than 50% in coordination of care (as documented) at patient's floor/unit and/or counseling patient: Coding Level of Care Code 48237 Subseq Hosp Care Lvl 3 Diagnoses Lab test positive for detection of COVID-19 virus U07.1 Urinary tract infection N39.0 Depression F32.A Hypotension I95.9 Failure to thrive in adult R62.7 Weakness R53.1 Sacral decubitus ulcer L89.159 Severe protein-calorie malnutrition E43 Hyperlipidemia E78.5 GERD (gastroesophageal reflux disease) K21.9 Chronic cerebral ischemia I67.82 COPD (chronic obstructive pulmonary disease) J42 COPD type: chronic bronchitis Chronic bronchitis type: unspecified Anemia D64.9 Anemia type: unspecified type History of septic arthritis Z87.39 DVT prophylaxis Z29.9 Hypomagnesemia E83.42 Vitamin D deficiency E55.9 (1) Anemia Anemia type: unspecified type Qualified Code(s): D64.9 - Anemia, unspecified (2) COPD (chronic obstructive pulmonary disease) COPD type: chronic bronchitis Chronic bronchitis type: unspecified Qualified Code(s): J42 - Unspecified chronic bronchitis
[2021-11-08] MEDS: PANTOprazole 40 MG TAB PO SCH (05:38)
[2021-11-08] MEDS: MIDODRINE HCL 2.5 MG TAB PO SCH ×3 (08:53→17:30)
[2021-11-08 08:54] LABS: Hematocrit (blood only) 26.5 % (37-47); Mean Corpuscular Hemoglobin 31.4 pg (25-34); Mean Corpuscular Volume 92.3 fL (80-100); Mean Platelet Volume 10.4 fL (7.4-10.4); Platelet Count 257 K/uL (130-400); RDW Coefficient of Variation 15.4 % (11.5-14.5); RDW Standard Deviation 51.2 fL (36.4-46.3); Red Blood Count 2.87 M/uL (4.2-5.4); White Blood Count 8.76 K/uL (4.8-10.8)
[2021-11-08] MEDS: APIXABAN 5 MG TABLET PO SCH ×2 (08:54→20:35)
[2021-11-08] MEDS: ASPIRIN 81 MG ECTAB PO SCH (08:54)
[2021-11-08] MEDS: ASCORBIC ACID 500 MG TAB PO SCH (08:54)
[2021-11-08] MEDS: CEROVITE ADV FORMULA TAB PO SCH (08:55)
[2021-11-08] MEDS: FAMOTIDINE 20 MG TAB PO SCH ×2 (08:55→20:35)
[2021-11-08] MEDS: ZINC SULFATE 220 MG CAPSULE PO SCH (08:55)
[2021-11-08] MEDS: DAPTOmycin 450 MG in SYRINGE 0 ML IV SCH (08:56)
[2021-11-08 09:35] LABS: Anion Gap 2 (3-11); BUN Creatinine Ratio 13.8 (10-20); Blood Urea Nitrogen 8 mg/dl (6-23); C Reactive Protein 3.17 mg/dl (0-0.5); Calcium 7.1 mg/dl (8.5-10.1); Carbon Dioxide 24 mmol/L (21-32); Chloride 115 mmol/L (98-107); Creatinine Clr Calc Pharmacy 89.4 ml/min; Est GFR (African American) 110.5 ml/min; Est GFR (Non-African American) 95.4 ml/min; Glucose 73 mg/dl (70-99(Fasting)); Potassium 4.2 mmol/L (3.5-5.1); Sodium 141 mmol/L (136-145)
[2021-11-08 09:45] LABS: Iron 60 mcg/dl (35-150)
[2021-11-08 09:46] LABS: Unsaturated Iron Binding Cap < 55 mcg/dl (155-355)
[2021-11-08] MEDS ORDERED: FOLIC ACID 1 MG in SYRINGE 9.8 ML IV STA (10:15)
[2021-11-08] MEDS: oxyCODONE HCL IR 5 MG TAB (IMMEDIATE RELEASE) PO PRN ×2 (10:41→21:13)
[2021-11-08] MEDS: MIRTAZAPINE SOLTAB 15 MG PO SCH (20:34)
--- NOTE | 2021-11-08 23:44 | Hospitalist Progress Note ---
Date of Service November 08, 2021 Assessment & Plan (1) Lab test positive for detection of COVID-19 virus: Plan: COVID test x 2 positive. Still is having fatigue, weakness, and myalgias but fortunately no pulmonary symptoms. She got very weak several days prior to admission - suspect COVID started then. Recommended to pt's daughter that any exposed family & caregivers get tested. Cont supportive care. Monitor for developing pulmonary symptoms. (2) Urinary tract infection: Plan: 2nd VRE - daptomycin x 7 days day #3 today (3) Depression: Plan: remeron 7.5mg HS in 1-2 weeks increase to 15mg HS (4) Hypotension: Plan: will obtain cosyntropin stim test (cortisol level was 16 - would have expected more robust level given her COVID, VRE UTI, sacral decub, etc) in AM NPO after MN tonight for such tomorrow am if she has adrenal insufficiency this might explain chronic weakness, fatigue, nausea, poor appetite, failure to thrive, etc. (5) Failure to thrive in adult: Plan: multifactorial - depression, inability to walk because of previous septic R hip, etc. (6) Weakness: Plan: Secondary to multiple medical issues PT, OT needs rehab post-discharge (7) Sacral decubitus ulcer: Plan: Consulted wound care and recs appreciated Consider appetite stimulant due to significant anorexia MVI, vit C, zinc supplementation (8) Severe protein-calorie malnutrition: Plan: Albumin 1.8 upon admission Will be difficult for decubitus ulcers to heal without improving nutrition see above (9) Hyperlipidemia: Plan: Continue lovastatin (10) GERD (gastroesophageal reflux disease): Plan: Continue pantoprazole (11) Chronic cerebral ischemia: Plan: Continue aspirin and apixaban (12) COPD (chronic obstructive pulmonary disease): Plan: Continue albuterol HFA Lungs clear at this time (13) Anemia: Plan: Fe studies c/w ACD folate level low-normal - replace folic acid 1mg IV daily prior B12 level was wnl (14) History of septic arthritis: Plan: RIGHT Hip - with resulting septic shock prolonged [place] [facility] [place] such finished abx and antifungals in late 2020 recent sed rate/crp largely wnl (15) DVT prophylaxis: Plan: eliquis (16) Hypomagnesemia: Plan: replaced and resolved (17) Vitamin D deficiency: Plan: vit D level = 15 ergocalciferol 50,000 weekly x 8 weeks first dose - 11/07/21 Plan: right knee pain - voltaren gel 4gm QID she has declined considerably since my last visit with her in summer 2020 extensive weight loss, now bedbound, decubs, etc daughter extensively updated by phone yesterday Admission and Anticipated Discharge Date Admission Date: November 04, 2021 Subjective patient without any new complaints sinus congestion is better still no cough/dyspnea/chest symptoms no abd pain eating is fair - largely unchanged no vomiting we talked about getting her from the bed to chair -- she got excited about that prospect Review of Systems Review of Systems: gen - fatigue, weakness, anorexia; no fevers HENT - no loss of taste or smell pulm - no cough/congestion cv - no orthopnea GI - no N/V/pain musculo - c/o chronic right knee pain Physical Exam Physical Exam: gen - NAD, looks good today, comfortable mouth - MMM heart - RRR, s1 s2, no murmur lungs - decreased BS bases, CTA b/l otherwise abd - soft NT ND BS+ ext - pulses 2+ b/l, no edema musculo - right leg internally rotated; right knee not warm, no effusion, any passive ROM leads to pain psych - restricted affect Results & Data Results & Data ([facility]) Vital Signs (Past 12 Hours) Vital Signs Temp Pulse Resp BP Pulse Ox 11/08/21 21:16 36.6 C 74 18 96/62 L 94 11/08/21 14:47 36.4 C L 84 16 122/77 95 Laboratory Results Laboratory Results - last 24 hr 11/08/21 11/08/21 11/08/21 08:17 08:17 08:17 WBC 8.76 RBC 2.87 L Hgb 9.0 L Hct 26.5 L MCV 92.3 MCH 31.4 MCHC 34.0 RDW Std Deviation 51.2 H RDW Coeff of Crow 15.4 H Plt Count 257 MPV 10.4 ESR 11 Sodium 141 Potassium 4.2 Chloride 115 H Carbon Dioxide 24 Anion Gap 2 L BUN 8 Creatinine 0.58 L Est Cr Clr Drug Dosing 89.4 Est GFR ( Amer) 110.5 Est GFR (Non-Af Amer) 95.4 BUN/Creatinine Ratio 13.8 Glucose 73 Calcium 7.1 L Iron 60 TIBC TNP Unsaturated IBC < 55 L Transferrin % Sat TNP C-Reactive Protein 3.17 H Folate 11/08/21 08:17 WBC RBC Hgb Hct MCV MCH MCHC RDW Std Deviation RDW Coeff of Crow Plt Count MPV ESR Sodium Potassium Chloride Carbon Dioxide Anion Gap BUN Creatinine Est Cr Clr Drug Dosing Est GFR ( Amer) Est GFR (Non-Af Amer) BUN/Creatinine Ratio Glucose Calcium Iron TIBC Unsaturated IBC Transferrin % Sat C-Reactive Protein Folate 6.34 PG Care Time/CCT Total # of Minutes Spent Total Time Spent with Patient: Total time spent is greater than 50% in coordination of care (as documented) at patient's floor/unit and/or counseling patient: Coding Level of Care Code 80478 Subseq Hosp Care Lvl 2 Diagnoses Lab test positive for detection of COVID-19 virus U07.1 Urinary tract infection N39.0 Depression F32.A Hypotension I95.9 Failure to thrive in adult R62.7 Weakness R53.1 Sacral decubitus ulcer L89.159 Severe protein-calorie malnutrition E43 Hyperlipidemia E78.5 GERD (gastroesophageal reflux disease) K21.9 Chronic cerebral ischemia I67.82 COPD (chronic obstructive pulmonary disease) J42 COPD type: chronic bronchitis Chronic bronchitis type: unspecified Anemia D64.9 Anemia type: unspecified type History of septic arthritis Z87.39 DVT prophylaxis Z29.9 Hypomagnesemia E83.42 Vitamin D deficiency E55.9 (1) Anemia Anemia type: unspecified type Qualified Code(s): D64.9 - Anemia, unspecified (2) COPD (chronic obstructive pulmonary disease) COPD type: chronic bronchitis Chronic bronchitis type: unspecified Qualified Code(s): J42 - Unspecified chronic bronchitis
[2021-11-09] MEDS: PANTOprazole 40 MG TAB PO SCH (05:16)
[2021-11-09] MEDS ORDERED: COSYNTROPIN 1 MCG in SYRINGE 0 ML IV SCH (08:00)
[2021-11-09] MEDS: DICLOFENAC SOD 1% GEL 100 GM TUBE EXT SCH ×4 (08:11→19:59)
[2021-11-09] MEDS: ZINC SULFATE 220 MG CAPSULE PO SCH (10:35)
[2021-11-09] MEDS: FOLIC ACID 1 MG in SYRINGE 9.8 ML IV SCH (10:35)
[2021-11-09] MEDS: ASPIRIN 81 MG ECTAB PO SCH (10:35)
[2021-11-09] MEDS: ASCORBIC ACID 500 MG TAB PO SCH (10:35)
[2021-11-09] MEDS: MIDODRINE HCL 2.5 MG TAB PO SCH ×3 (10:36→17:44)
[2021-11-09] MEDS: CEROVITE ADV FORMULA TAB PO SCH (10:36)
[2021-11-09] MEDS: DAPTOmycin 450 MG in SYRINGE 0 ML IV SCH (10:36)
[2021-11-09] MEDS: APIXABAN 5 MG TABLET PO SCH ×2 (10:36→20:07)
[2021-11-09] MEDS: FAMOTIDINE 20 MG TAB PO SCH ×2 (10:36→20:07)
[2021-11-09] MEDS: THIAMINE HCL 100 MG TAB PO SCH ×2 (10:37→20:09)
[2021-11-09] MEDS: dexAMETHasone 6 MG in SYRINGE 0 ML IV SCH (12:12)
[2021-11-09] MEDS: oxyCODONE HCL IR 5 MG TAB (IMMEDIATE RELEASE) PO PRN (19:58)
[2021-11-09] MEDS: MIRTAZAPINE SOLTAB 15 MG PO SCH (20:08)
--- NOTE | 2021-11-09 21:58 | Hospitalist Progress Note ---
Date of Service November 09, 2021 Assessment & Plan (1) Lab test positive for detection of COVID-19 virus: Plan: COVID test x 2 positive earlier this stay. Pt has had severe fatigue, weakness, and myalgias but fortunately no pulmonary symptoms and no hypoxia. She got very weak several days prior to admission - suspect COVID started then. Cont supportive care. Monitor for developing pulmonary symptoms. (2) Urinary tract infection: Plan: 2nd VRE - daptomycin x 7 days day #4 today (3) Depression: Plan: remeron 7.5mg HS in 1-2 weeks increase to 15mg HS pt sleeping well with this (4) Adrenal insufficiency: Plan: patient's cosyntropin stimulation test today was abnormal - she did not stim to >18; baseline was 6, and it peaked at 13 her chronic narcotic usage could have led to the secondary adrenal insufficiency, or chronic/recurrent illness, vs other send ACTH level in am I reviewed the pt's pharmacy record - she has NOT had steroids in the last few months will start dexamethasone 6mg daily IV (will use such due to COVID) wean every 2 days ultimately will switch to hydrocortisone - 15mg qam, 5mg qafternoon I am hopeful that her failure to thrive, anorexia, chronic nausea, hypotension, salt cravings, and other symptoms may be due to adrenal insufficiency as this condition is easily treatable re-eval tomorrow (5) Failure to thrive in adult: Plan: multifactorial - depression, inability to walk because of previous septic R hip, etc. adrenal insufficiency also likely contributing (6) Weakness: Plan: Secondary to multiple medical issues including #4, depression, etc PT, OT needs rehab post-discharge (7) Sacral decubitus ulcer: Plan: Consulted wound care and recs appreciated Treating #4 should help appetite MVI, vit C, zinc supplementation (8) Severe protein-calorie malnutrition: Plan: Albumin 1.8 upon admission Will be difficult for decubitus ulcers to heal without improving nutrition see above hopefully this will improve (9) Hyperlipidemia: Plan: Continue lovastatin (10) GERD (gastroesophageal reflux disease): Plan: Continue pantoprazole (11) Chronic cerebral ischemia: Plan: Continue aspirin and apixaban (12) COPD (chronic obstructive pulmonary disease): Plan: lungs clear, o2 sats wnl (13) Anemia: Plan: Fe studies c/w ACD folate level low-normal - replace folic acid 1mg IV daily prior B12 level was wnl (14) History of septic arthritis: Plan: RIGHT Hip - with resulting septic shock prolonged hospitalization in 2020 at [facility] [place] 2nd to such finished abx and antifungals in late 2020 recent sed rate/crp largely wnl (15) DVT prophylaxis: Plan: eliquis (16) Hypomagnesemia: Plan: replaced and resolved (17) Vitamin D deficiency: Plan: vit D level = 15 ergocalciferol 50,000 weekly x 8 weeks first dose - 11/07/21 Plan: right knee pain - voltaren gel 4gm QID she has declined considerably since my last visit with her in summer 2020 extensive weight loss, now bedbound, decubs, etc niece updated by phone this evening we are all hopeful that she will be agreeable to rehab post-d/c Admission and Anticipated Discharge Date Admission Date: November 04, 2021 Subjective patient had her cosyntropin stim test this am - did not stim to >18 we discussed the test results and what it means for her discussed that we will initiate steroids for such she has no new complaints states that the voltaren gel is helping right knee pain denies any new dyspnea or cough eating is improving; had a good lunch today Review of Systems Review of Systems: gen - no fevers/chills; still with fatigue cv - no cp, no orthopnea pulm - no cough, no dyspnea GI - no nausea or emesis, no abd pain Physical Exam Physical Exam: gen - NAD, gain looks good today, comfortable and in good spirits mouth - MMM heart - RRR, s1 s2, no murmur lungs - decreased BS bases, CTA b/l otherwise abd - soft NT ND BS+ ext - pulses 2+ b/l, no edema musculo - right leg internally rotated psych - affect modestly more full Results & Data Results & Data ([facility]) Vital Signs (Past 12 Hours) Vital Signs Temp Pulse Pulse Resp BP Pulse Ox 11/09/21 21:26 36.4 C L 100 H 16 129/83 98 11/09/21 15:04 36.6 C 85 16 115/80 97 11/09/21 10:40 36.6 C 95 H 20 122/76 93 PG Care Time/CCT Total # of Minutes Spent Total Time Spent with Patient: Total time spent is greater than 50% in coordination of care (as documented) at patient's floor/unit and/or counseling patient: Coding Level of Care Code 86179 Subseq Hosp Care Lvl 3 Diagnoses Lab test positive for detection of COVID-19 virus U07.1 Urinary tract infection N39.0 Depression F32.A Failure to thrive in adult R62.7 Weakness R53.1 Sacral decubitus ulcer L89.159 Severe protein-calorie malnutrition E43 Hyperlipidemia E78.5 GERD (gastroesophageal reflux disease) K21.9 Chronic cerebral ischemia I67.82 COPD (chronic obstructive pulmonary disease) J42 COPD type: chronic bronchitis Chronic bronchitis type: unspecified Anemia D64.9 Anemia type: unspecified type History of septic arthritis Z87.39 DVT prophylaxis Z29.9 Hypomagnesemia E83.42 Vitamin D deficiency E55.9 Adrenal insufficiency E27.40 (1) Anemia Anemia type: unspecified type Qualified Code(s): D64.9 - Anemia, unspecified (2) COPD (chronic obstructive pulmonary disease) COPD type: chronic bronchitis Chronic bronchitis type: unspecified Qualified Code(s): J42 - Unspecified chronic bronchitis
[2021-11-10] MEDS: PANTOprazole 40 MG TAB PO SCH (06:14)
[2021-11-10 08:03] LABS: Hematocrit (blood only) 24.9 % (37-47); Hemoglobin 8.3 g/dL (12.0-16.0); Mean Corpuscular Hemoglobin 30.7 pg (25-34); Mean Corpuscular Hgb Conc 33.3 g/dL (32-36); Mean Corpuscular Volume 92.2 fL (80-100); Mean Platelet Volume 10.9 fL (7.4-10.4); Nucleated RBC # (auto) 0.02 K/uL (0-0); Nucleated RBC % (auto) 0.4 %; Platelet Count 308 K/uL (130-400); RDW Coefficient of Variation 15.7 % (11.5-14.5); RDW Standard Deviation 50.5 fL (36.4-46.3)
[2021-11-10 08:32] LABS: BUN Creatinine Ratio 20.8 (10-20); Calcium 7.6 mg/dl (8.5-10.1); Creatinine Clr Calc Pharmacy 97.8 ml/min; Est GFR (African American) 113.9 ml/min; Est GFR (Non-African American) 98.2 ml/min; Potassium 4.8 mmol/L (3.5-5.1)
[2021-11-10] MEDS: APIXABAN 5 MG TABLET PO SCH ×2 (09:50→21:55)
[2021-11-10] MEDS: FAMOTIDINE 20 MG TAB PO SCH ×2 (09:51→21:55)
[2021-11-10] MEDS: ASPIRIN 81 MG ECTAB PO SCH (09:52)
[2021-11-10] MEDS: ASCORBIC ACID 500 MG TAB PO SCH (09:52)
[2021-11-10] MEDS: MIDODRINE HCL 2.5 MG TAB PO SCH ×3 (09:53→17:39)
[2021-11-10] MEDS: DICLOFENAC SOD 1% GEL 100 GM TUBE EXT SCH ×4 (09:54→21:55)
[2021-11-10] MEDS: dexAMETHasone 6 MG in SYRINGE 0 ML IV SCH (09:55)
[2021-11-10] MEDS: FOLIC ACID 1 MG in SYRINGE 9.8 ML IV SCH (09:56)
[2021-11-10] MEDS: DAPTOmycin 450 MG in SYRINGE 0 ML IV SCH (11:54)
[2021-11-10] MEDS: THIAMINE HCL 100 MG TAB PO SCH ×2 (11:56→21:55)
[2021-11-10] MEDS: ZINC SULFATE 220 MG CAPSULE PO SCH (11:56)
[2021-11-10] MEDS: CEROVITE ADV FORMULA TAB PO SCH (11:56)
--- NOTE | 2021-11-10 20:24 | Hospitalist Progress Note ---
Date of Service November 10, 2021 Assessment & Plan (1) Lab test positive for detection of COVID-19 virus: Plan: COVID test x 2 positive earlier this stay. Pt had had severe fatigue, weakness, and myalgias but fortunately no pulmonary symptoms and no hypoxia. She got very weak several days prior to admission - suspect COVID started then. I believe she is improving from her illness and has overall done very well from the COVID standpoint. Cont supportive care. Monitor for developing pulmonary symptoms. (2) Urinary tract infection: Plan: 2nd VRE - daptomycin x 7 days day #5 today (3) Depression: Plan: remeron 7.5mg HS in 1-2 weeks increase to 15mg HS pt sleeping well with this (4) Adrenal insufficiency: Plan: cosyntropin stimulation test results - she did not stim to >18; baseline was 6, and it peaked at 13 her chronic narcotic usage could have led to the secondary adrenal insufficiency, or chronic/recurrent illness, vs other ACTH level pending I reviewed the pt's pharmacy record - she has NOT had steroids in the last few months started dexamethasone 6mg daily IV on 11/09 wean every 2 days ultimately will switch to hydrocortisone - 15mg qam, 5mg qafternoon I am hopeful that her failure to thrive, anorexia, chronic nausea, hypotension, salt cravings, and other symptoms may be due to adrenal insufficiency as this condition is easily treatable clearly has had rapid and robust response to steroids (5) Failure to thrive in adult: Plan: multifactorial - depression, inability to walk because of previous septic R hip, etc. adrenal insufficiency also likely contributing (6) Weakness: Plan: Secondary to multiple medical issues including #4, depression, etc PT, OT needs rehab post-discharge patient agreeable to go (7) Sacral decubitus ulcer: Plan: Consulted wound care and recs appreciated Treating #4 should help appetite MVI, vit C, zinc supplementation (8) Severe protein-calorie malnutrition: Plan: Albumin 1.8 upon admission Will be difficult for decubitus ulcers to heal without improving nutrition see above hopefully this will improve with Rx of adrenal insufficiency (9) Hyperlipidemia: Plan: lovastatin on hold due to daptomycin recent CPK wnl (10) GERD (gastroesophageal reflux disease): Plan: Continue pantoprazole (11) Chronic cerebral ischemia: Plan: Continue aspirin and apixaban (12) COPD (chronic obstructive pulmonary disease): Plan: lungs clear, o2 sats wnl (13) Anemia: Plan: Fe studies c/w ACD folate level low-normal - replace folic acid 1mg IV daily prior B12 level was wnl (14) History of septic arthritis: Plan: RIGHT Hip - with resulting septic shock prolonged hospitalization in 2020 at [facility] [place] such finished abx and antifungals in late 2020 recent sed rate/crp largely wnl will obtain x-rays of right hip, pelvis, and right knee in am tomorrow (15) DVT prophylaxis: Plan: eliquis (16) Hypomagnesemia: Plan: replaced and resolved (17) Vitamin D deficiency: Plan: vit D level = 15 ergocalciferol 50,000 weekly x 8 weeks first dose - 11/07/21 Plan: for right knee pain cont voltaren gel 4gm QID niece updated by phone last evening referral to [facility] Admission and Anticipated Discharge Date Admission Date: November 04, 2021 Subjective pt very animated today - sprightly, talkative, smiling, stating "I feel really good today" eating well slept well last pm scant cough only no dyspnea c/o right knee pain for "months"; voltaren helping initially declined rehab, but her brother spoke with her along w/ other family encouraging her to go - she is willing Review of Systems Review of Systems: gen - no fevers/chills cv - no orthopnea pulm - no sputum or dyspnea Gi - no N/V/abd pain; nausea particularly is much better psych - spirits are better Physical Exam Physical Exam: gen - NAD, looks great today, smiling mouth - MMM heart - RRR, s1 s2, no murmur lungs - decreased BS bases, CTA b/l otherwise abd - soft NT ND BS+ ext - pulses 2+ b/l, no edema musculo - right leg internally rotated; right knee unchanged - no warmth, scant effusion?, mildly tender to palpation over medial joint line psych - affect quite full today Results & Data Results & Data ([facility]) Vital Signs (Past 12 Hours) Vital Signs Temp Pulse Resp BP Pulse Ox 11/10/21 17:37 135/76 11/10/21 14:36 36.7 C 93 H 16 117/75 99 11/10/21 12:58 125/76 01/27/22 09:48 117/74 Laboratory Results cbc, bmp wnl PG Care Time/CCT Total # of Minutes Spent Total Time Spent with Patient: Total time spent is greater than 50% in coordination of care (as documented) at patient's floor/unit and/or counseling patient: Coding Level of Care Code 80589 Subseq Hosp Care Lvl 2 Diagnoses Lab test positive for detection of COVID-19 virus U07.1 Urinary tract infection N39.0 Depression F32.A Adrenal insufficiency E27.40 Failure to thrive in adult R62.7 Weakness R53.1 Sacral decubitus ulcer L89.159 Severe protein-calorie malnutrition E43 Hyperlipidemia E78.5 GERD (gastroesophageal reflux disease) K21.9 Chronic cerebral ischemia I67.82 COPD (chronic obstructive pulmonary disease) J42 COPD type: chronic bronchitis Chronic bronchitis type: unspecified Anemia D64.9 Anemia type: unspecified type History of septic arthritis Z87.39 DVT prophylaxis Z29.9 Hypomagnesemia E83.42 Vitamin D deficiency E55.9 (1) Anemia Anemia type: unspecified type Qualified Code(s): D64.9 - Anemia, unspecified (2) COPD (chronic obstructive pulmonary disease) COPD type: chronic bronchitis Chronic bronchitis type: unspecified Qualified Code(s): J42 - Unspecified chronic bronchitis
[2021-11-10] MEDS: MIRTAZAPINE SOLTAB 15 MG PO SCH (21:53)
[2021-11-10] MEDS: oxyCODONE HCL IR 5 MG TAB (IMMEDIATE RELEASE) PO PRN (22:08)
[2021-11-11] MEDS: PANTOprazole 40 MG TAB PO SCH (06:27)
--- NOTE | 2021-11-11 07:43 | XRay Report ---
XR knee RT 1 or 2V routine HISTORY: 66 years-old Female right knee pain acute right-sided knee pain COMPARISON: None TECHNIQUE: 2 views of the right knee FINDINGS: Demineralized appearance of the bones. There is diffuse soft tissue swelling. Limited lateral view se condary to positioning. There is a suggested joint effusion. No acute fracture or dislocation. Modera te tricompartmental osteoarthritis. Mild cortical indistinctness involves the lateral aspect of the m edial femoral condyle and articular cortex of the mid patella. IMPRESSION: 1. Limited exam secondary to positioning. No acute fracture or dislocation. 2. Soft tissue swelling with suggested joint effusion. 3. Moderate tricompartmental osteoarthritis. 4. Cortical indistinctness of the patella and medial femoral condyle is likely projectional and relat ed to the patient's bone demineralization. Subtle osseous erosions considered less likely. ACT 112: Negative or not required by law. The above report was generated using voice recognition software. It may contain grammatical, syntax o r spelling errors. Electronically signed by: Mani Zapata M.D. 11/11/2021 7:42 AM
--- NOTE | 2021-11-11 07:50 | XRay Report ---
XR hip RT 2V w pelvis CLINICAL HISTORY: prior R MAXIMUS with subsequent septic hip COMPARISON: Right hip radiographs January 27, 2021. Fluoroscopic images of the right hip March 08, 2021. CT of the abdomen and pelvis November 03, 2021. FINDINGS: Right hip arthroplasty is noted with cerclage wires. Healing intertrochanteric fracture is noted with callus formation. No acute fracture is identified within the right hip. Acetabular cup bacon s been removed with probable placement of a polyethylene spacer. Appearance is unchanged since CT of November 03, 2021. No acute fracture within the pelvis or proximal left femur is noted. IMPRESSION: 1. Right hip arthroplasty with removal of acetabular cup and placement of a polyethylene spacer. No c hange in appearance since CT of November 03, 2021. 2. Healing intertrochanteric fracture with callus formation with [address] 3. No acute fracture within the right hip. ACT 112: Negative or not required by law. Electronically signed by: Marquez Coronel M.D. 11/11/2021 7:49 AM
[2021-11-11] MEDS: FAMOTIDINE 20 MG TAB PO SCH ×2 (08:27→20:56)
[2021-11-11] MEDS: ASPIRIN 81 MG ECTAB PO SCH (08:27)
[2021-11-11] MEDS: ASCORBIC ACID 500 MG TAB PO SCH (08:28)
[2021-11-11] MEDS: APIXABAN 5 MG TABLET PO SCH ×2 (08:28→20:58)
[2021-11-11] MEDS: ZINC SULFATE 220 MG CAPSULE PO SCH (08:29)
[2021-11-11] MEDS: THIAMINE HCL 100 MG TAB PO SCH ×2 (08:29→20:57)
[2021-11-11] MEDS: CEROVITE ADV FORMULA TAB PO SCH (08:29)
[2021-11-11] MEDS: dexAMETHasone 6 MG in SYRINGE 0 ML IV SCH (08:29)
[2021-11-11] MEDS: FOLIC ACID 1 MG in SYRINGE 9.8 ML IV SCH (08:30)
[2021-11-11] MEDS: DICLOFENAC SOD 1% GEL 100 GM TUBE EXT SCH ×4 (08:30→20:58)
[2021-11-11] MEDS: oxyCODONE HCL IR 5 MG TAB (IMMEDIATE RELEASE) PO PRN ×3 (08:45→22:19)
[2021-11-11] MEDS: DAPTOmycin 450 MG in SYRINGE 0 ML IV SCH (10:16)
[2021-11-11] MEDS: MIRTAZAPINE SOLTAB 15 MG PO SCH (20:56)
--- NOTE | 2021-11-11 20:56 | Hospitalist Progress Note ---
Date of Service November 11, 2021 Assessment & Plan (1) Lab test positive for detection of COVID-19 virus: Plan: COVID test x 2 positive earlier this stay. Pt had had severe fatigue, weakness, and myalgias but fortunately no pulmonary symptoms and no hypoxia. She got very weak several days prior to admission - suspect COVID started then. I believe she is improving from her illness and has overall done very well from the COVID standpoint. Symptoms seem fully resolved at this point. Cont supportive care. Monitor for developing pulmonary symptoms but suspect she will not have any. (2) Urinary tract infection: Plan: 2nd VRE - daptomycin x 7 days day #6 today stop after tomorrow's dose (3) Depression: Plan: remeron 7.5mg HS in 1-2 weeks increase to 15mg HS pt sleeping well with this (4) Adrenal insufficiency: Plan: cosyntropin stimulation test results - she did not stim to >18; baseline was 6, and it peaked at 13 her chronic narcotic usage could have led to the secondary adrenal insufficiency, or chronic/recurrent illness, vs other ACTH level pending I reviewed the pt's pharmacy record - she has NOT had steroids in the last few months started dexamethasone 6mg daily IV on 11/09 wean to 4mg daily starting tomorrow, then ultimately switch to hydrocortisone - 15mg qam, 5mg qafternoon clearly has had rapid and robust response to steroids c/w this diagnosis (5) Failure to thrive in adult: Plan: multifactorial - depression, inability to walk because of previous septic R hip, adrenal insufficiency, etc improving (6) Weakness: Plan: Secondary to multiple medical issues improving cont PT, OT needs rehab post-discharge - [facility] (7) Sacral decubitus ulcer: Plan: Consulted wound care and recs appreciated MVI, vit C, zinc supplementation cont to improve #8 below (8) Severe protein-calorie malnutrition: Plan: Albumin 1.8 upon admission Will be difficult for decubitus ulcers to heal without improving nutrition but fortunately she is turning the corner with this (9) Hyperlipidemia: Plan: lovastatin on hold due to daptomycin recent CPK wnl can resume lovastatin once off dapto (10) GERD (gastroesophageal reflux disease): Plan: Continue pantoprazole Continue pepcid (11) Chronic cerebral ischemia: Plan: Continue aspirin and apixaban (12) COPD (chronic obstructive pulmonary disease): Plan: lungs clear, o2 sats wnl (13) Anemia: Plan: Fe studies c/w ACD folate level low-normal - replace folic acid 1mg IV daily prior B12 level was wnl (14) History of septic arthritis: Plan: RIGHT Hip - with resulting septic shock prolonged hospitalization in 2020 at [facility] [place] to such finished abx and antifungals in late 2020 recent sed rate/crp largely wnl will obtain x-rays of right hip, pelvis, and right knee in am tomorrow will consult ortho this weekend to clarify weight-bearing status (15) DVT prophylaxis: Plan: eliquis (16) Hypomagnesemia: Plan: replaced and resolved (17) Vitamin D deficiency: Plan: vit D level = 15 ergocalciferol 50,000 weekly x 8 weeks first dose - 11/07/21 Plan: for right knee pain cont voltaren gel 4gm QID niece updated earlier this week very pleased w/ her progress Admission and Anticipated Discharge Date Admission Date: November 04, 2021 Subjective with exception of ongoing, mild dysphagia she "feels great" smiling, animated, good energy, "great" appetite no cough no dyspnea no loss of taste/smell still has not gotten to the chair but desires such no new complaints still agreeable for [facility] rehab Review of Systems Review of Systems: gen - no fevers/chills CV - no cp, no orthopnea GI - no abd pain, no N/V - completely resolved - leggett remains pulm - no dyspnea Physical Exam Physical Exam: gen - NAD, looks great once again, great spirits mouth - MMM heart - RRR, s1 s2, no murmur lungs - decreased BS bases, CTA b/l otherwise abd - soft NT ND BS+ ext - pulses 2+ b/l, no edema musculo - right leg internally rotated psych - a/o x 3, affect full Results & Data Results & Data ([facility]) Vital Signs (Past 12 Hours) Vital Signs Temp Pulse Resp BP Pulse Ox 11/11/21 15:23 36.6 C 88 16 124/74 97 PG Care Time/CCT Total # of Minutes Spent Total Time Spent with Patient: Total time spent is greater than 50% in coordination of care (as documented) at patient's floor/unit and/or counseling patient: Coding Level of Care Code 01681 Subseq Hosp Care Lvl 2 Diagnoses Lab test positive for detection of COVID-19 virus U07.1 Urinary tract infection N39.0 Depression F32.A Adrenal insufficiency E27.40 Failure to thrive in adult R62.7 Weakness R53.1 Sacral decubitus ulcer L89.159 Severe protein-calorie malnutrition E43 Hyperlipidemia E78.5 GERD (gastroesophageal reflux disease) K21.9 Chronic cerebral ischemia I67.82 COPD (chronic obstructive pulmonary disease) J42 COPD type: chronic bronchitis Chronic bronchitis type: unspecified Anemia D64.9 Anemia type: unspecified type History of septic arthritis Z87.39 DVT prophylaxis Z29.9 Hypomagnesemia E83.42 Vitamin D deficiency E55.9 (1) Anemia Anemia type: unspecified type Qualified Code(s): D64.9 - Anemia, unspecified (2) COPD (chronic obstructive pulmonary disease) COPD type: chronic bronchitis Chronic bronchitis type: unspecified Qualified Code(s): J42 - Unspecified chronic bronchitis
[2021-11-11] MEDS: NICOTINE 14 MG/24 HR PATCH TD SCH (22:15)
[2021-11-12] MEDS: PANTOprazole 40 MG TAB PO SCH (06:35)
[2021-11-12 08:24] LABS: Hematocrit (blood only) 22.6 % (37-47); Hemoglobin 7.6 g/dL (12.0-16.0); Mean Corpuscular Hemoglobin 31.1 pg (25-34); Mean Corpuscular Hgb Conc 33.6 g/dL (32-36); Mean Corpuscular Volume 92.6 fL (80-100); Mean Platelet Volume 10.6 fL (7.4-10.4); Platelet Count 385 K/uL (130-400); RDW Coefficient of Variation 16.3 % (11.5-14.5); RDW Standard Deviation 51.5 fL (36.4-46.3); Red Blood Count 2.44 M/uL (4.2-5.4); White Blood Count 9.01 K/uL (4.8-10.8)
[2021-11-12 08:52] LABS: BUN Creatinine Ratio 34.5 (10-20); Calcium 7.6 mg/dl (8.5-10.1); Creatinine Clr Calc Pharmacy 94.2 ml/min; Est GFR (African American) 112.5 ml/min; Est GFR (Non-African American) 97.1 ml/min; Magnesium 1.9 mg/dl (1.7-2.4); Potassium 3.9 mmol/L (3.5-5.1)
[2021-11-12] MEDS: ASPIRIN 81 MG ECTAB PO SCH (09:05)
[2021-11-12] MEDS: APIXABAN 5 MG TABLET PO SCH (09:05)
[2021-11-12] MEDS: FAMOTIDINE 20 MG TAB PO SCH ×2 (09:05→20:42)
[2021-11-12] MEDS: THIAMINE HCL 100 MG TAB PO SCH ×2 (09:05→20:42)
[2021-11-12] MEDS: CEROVITE ADV FORMULA TAB PO SCH (09:05)
[2021-11-12] MEDS: ZINC SULFATE 220 MG CAPSULE PO SCH (09:05)
[2021-11-12] MEDS: ASCORBIC ACID 500 MG TAB PO SCH (09:05)
[2021-11-12] MEDS: NICOTINE 14 MG/24 HR PATCH TD SCH (09:09)
[2021-11-12] MEDS: dexAMETHasone 4 MG in SYRINGE 0 ML IV SCH (09:11)
[2021-11-12] MEDS: FOLIC ACID 1 MG in SYRINGE 9.8 ML IV SCH (09:14)
[2021-11-12] MEDS: DICLOFENAC SOD 1% GEL 100 GM TUBE EXT SCH ×4 (09:16→20:41)
[2021-11-12] MEDS: PANTOprazole 40 MG in SYRINGE 0 ML IV SCH ×2 (11:24→20:42)
[2021-11-12] MEDS: SUCRALFATE 1 GM/10 ML UDC PO SCH ×3 (12:56→20:41)
[2021-11-12 14:59] LABS: Hematocrit (blood only) 25.2 % (37-47); Hemoglobin 8.3 g/dL (12.0-16.0)
--- NOTE | 2021-11-12 19:05 | Consultation Report ---
GASTROENTEROLOGY CONSULTATION DATE OF SERVICE: 11/12/2021. AGE: 66. SEX: Female. RACE: . ATTENDING PHYSICIAN: Brandon Collins MD. CONSULTING PHYSICIAN: Loy Bain DO. REASON FOR CONSULTATION: Dysphagia, suspected GI bleed. HISTORY OF PRESENT ILLNESS: The patient is a 66-year-old female with an extensive past med ical history that includes chronic kidney disease, COPD, history of CVA and a history of septic arthr itis in the right hip, who had a prolonged hospitalization at [facility] in 2020. She presented to the ER on 11/03/2021 with complaints of weakness due to adult failure to thrive. She wa s noted to have worsening pressure ulcers and her family was unable to care for her at home. She was subsequently admitted. At the time of her admission, her H and H was noted to be 10 and 27.7. Duri ng the course of her hospitalization, her blood count has progressively fallen to today's level of 7. 6 and 22.6. During the course of her hospitalization as well on 11/06/2021, she did test positive fo r the novel coronavirus. Overall, she has not had any overt GI bleeding documented and has had brown stools throughout her hospitalization. Dr. Collins her hospitalist did contact me as the family state s that she has had progressive dysphagia for solids greater than liquids during the course of her [facility] care. At the time that I saw the patient today, she remained in COVID isolation, though she states she is feeling much better. She states that currently she is having a bowel movement every 1-2 days . She denies any hematemesis or hematochezia. She does admit to intermittent solid food dysphagia, stating that it feels like it has gotten worse recently. She did have a single episode of choking du ring a meal during this hospitalization as well, prompting evaluation by speech and language patholog y, which occurred on 11/05/2021. At that time, Earlene Christy performed a bedside swallowing assessme nt and there was no evidence of any aspiration on a bedside swallow evaluation. The patient herself reports that she has not had any upper endoscopy in many years and states that she did use to take a PPI therapy at home, but is unsure if she had taken this in some time. She denied any odynophagia, m kellen, chronic NSAID use or history of esophageal dilation in the past. She had no further complaint s. PAST MEDICAL HISTORY: Extensive and includes acute renal failure, asthma, left carotid stenosis, cer ebral aneurysm, chronic kidney disease, COPD, history of CVA, depression, anxiety, GERD, Meniere's di sease, prediabetes, history of septic shock, hyperlipidemia, hypertension, osteoarthritis. PAST SURGICAL HISTORY: Includes a right hip replacement with revision, carotid endarterectomy, appen dectomy, bilateral tubal ligation, , cataract surgery, cholecystectomy, tonsillectomy, third molar extraction. ALLERGIES: None. MEDICATIONS: At present, vitamin C 500 mg p.o. q.a.m., Decadron 4 mg IV daily, famotidine 20 mg p.o. b.i.d., folic acid 1 mg IV q.a.m., Remeron 7.5 mg p.o. at bedtime, multivitamin 1 tablet p.o. q.a.m. , Nicoderm CQ 14 mg transdermally each morning, Zofran 4 mg IV q. 6 p.r.n., Protonix 40 mg IV b.i.d., Carafate 1 gram p.o. q.i.d. suspension meals and at bedtime, thiamine 200 mg p.o. b.i.d., zinc sulfa te 220 mg p.o. q.a.m. SOCIAL HISTORY: She was living at home with family, though they are unable to provide sufficient car e for her at present. She is . She smokes daily up to a pack a day, [id number] history of s moking. FAMILY HISTORY: Negative for GI malignancy or inflammatory bowel disease. REVIEW OF SYSTEMS: Negative x12 systems review other than pertinent positives as listed in HPI. PHYSICAL EXAMINATION: VITAL SIGNS: Temperature 36.5, pulse 87, respirations 16, blood pressure 108/73, pulse ox 96% on eddie m air. GENERAL: She is awake and cooperative, in no acute distress, though chronic ill-appearing. HEAD: Normocephalic, atraumatic. EYES: Pupils equal, and round. Extraocular muscles are intact. ENT: External evaluation of ears and nose are normal. Oropharynx is clear. NECK: Soft, supple. CHEST: Decreased breath sounds bilateral bases. CARDIOVASCULAR: Regular rate and rhythm. ABDOMEN: Soft, nontender, nondistended, positive bowel sounds. There is no hepatosplenomegaly or st igmata of chronic liver disease. EXTREMITIES: No clubbing, cyanosis or edema. Laboratory studies and radiographic studies are reviewed in the HPI. IMPRESSION: A 66-year-old female with COVID, adult failure to thrive and dysphagia with an emia of unknown etiology. PLAN: I would recommend the patient be continued on twice daily PPI and H2 receptor antagonist thera py at present. She will need an upper endoscopy, though I would like to wait until she clears isolati on protocols from [facility] as there is no urgent need for this as she has not had any overt GI bleeding and her dysphagia is intermittent. I would recommend that it be performed during this hospitalizatio n, however, and we are happy to do that in the near future. I would recommend continuing supportive care. I will make further recommendations following the above-noted testing. Once again, thank you for allowing me to participate in the care of this patient. If you have any fu rther questions, please do not hesitate in contacting me. Job ID: [id number]
[2021-11-12] MEDS: MIRTAZAPINE SOLTAB 15 MG PO SCH (20:42)
[2021-11-12] MEDS: oxyCODONE HCL IR 5 MG TAB (IMMEDIATE RELEASE) PO PRN (21:01)
--- NOTE | 2021-11-12 23:04 | Hospitalist Progress Note ---
Date of Service November 12, 2021 Assessment & Plan (1) Lab test positive for detection of COVID-19 virus: Plan: COVID test x 2 positive earlier this stay. First test was positive on 11/04/21 - thus, day #9 since then. She had been feeling unwell for a few days prior to presentation - probably had COVID at home for a few days. Pt had had severe fatigue, weakness, and myalgias early in her stay but fortunately no pulmonary symptoms and no hypoxia. At this point she is asymptomatic and feeling great. Cont supportive care. Monitor for developing pulmonary symptoms but suspect she will not have any. (2) Urinary tract infection: Plan: 2nd VRE - daptomycin x 7 days course complete leggett remains due to large sacral/buttocks decubitus (3) Depression: Plan: remeron 7.5mg HS started 11/05/21 tolerating such consider increasing to 15mg soon (4) Adrenal insufficiency: Plan: cosyntropin stimulation test results - she did not stim to >18; baseline was 6, and it peaked at 13 her chronic narcotic usage could have led to the secondary adrenal insufficiency, or chronic/recurrent illness, vs other ACTH level pending I reviewed the pt's pharmacy record - she has NOT had steroids in the last few months started dexamethasone 6mg daily IV on 11/09, then weaned to 4mg daily starting today ultimately switch to hydrocortisone - 15mg qam, 5mg qafternoon clearly has had rapid and robust response to steroids c/w this diagnosis adrenal insufficiency may explain her chronic nausea of several months duration and probably contributed to failure to thrive/anorexia (5) Failure to thrive in adult: Plan: multifactorial - depression, inability to walk because of previous septic R hip, adrenal insufficiency, etc improving nicely (6) Weakness: Plan: Secondary to multiple medical issues improving cont PT, OT needs rehab post-discharge - [facility] (7) Sacral decubitus ulcer: Plan: Consulted wound care and recs appreciated MVI, vit C, zinc supplementation cont to improve #8 below (8) Severe protein-calorie malnutrition: Plan: Albumin 1.8 upon admission This should improve now that adrenal insufficiency is being treated and appetite is improved (9) Hyperlipidemia: Plan: lovastatin on hold due to daptomycin recent CPK wnl can resume lovastatin once off dapto (10) GERD (gastroesophageal reflux disease): Plan: Continue pantoprazole Continue pepcid (11) Chronic cerebral ischemia: Plan: HOLD aspirin and apixaban - see below (12) COPD (chronic obstructive pulmonary disease): Plan: lungs clear, o2 sats wnl (13) Anemia: Plan: H/H worse this am repeat the H/H this afternoon was improved [id number] - her overall trend is that of decreasing hemoglobin concerning for GI bleeding GI consult placed to Dr Bain for consideration of EGD hold asa hold eliquis place on IV ppi twice daily place on carafate qid is also on pepcid most recent b12 level was wnl most recent folate was low-normal recent Fe studies were more c/w ACD check fecal occult blood (14) History of septic arthritis: Plan: RIGHT Hip - with resulting septic shock prolonged hospitalization in 2020 at [facility] [place] 2nd to such finished abx and antifungals in late 2020 recent sed rate/crp largely wnl obtained x-rays of right hip, pelvis, and right knee spoke with on-call orthopedics, [facility] - based on current films and healing likely can weigh-bear as tolerated for transfers/pivoting, etc (15) DVT prophylaxis: Plan: eliquis - but place on hold due to concern for occult GI bleeding (16) Hypomagnesemia: Plan: replaced and resolved (17) Vitamin D deficiency: Plan: vit D level = 15 ergocalciferol 50,000 weekly x 8 weeks first dose - 11/07/21 Plan: for right knee pain cont voltaren gel 4gm QID niece updated by phone this evening post-discharge -- hopefully [facility] Admission and Anticipated Discharge Date Admission Date: November 04, 2021 Subjective no issues overnight again she had a good night/good day today no overt GI bleeding - no melena or dark stool; no rectal bleeding slept fair overnight - awoke early then could not fall back to sleep no abd pain, N/V eating "too good!" continues with mild dysphagia - points to her throat consistently as the site of her issue Review of Systems Review of Systems: gen - still no fevers/chills HENT - still no loss of taste/smell pulm - no cough, congestion or dysphea CV - no orthopnea or chest pain Physical Exam Physical Exam: gen - NAD, looks good, sprightly mouth - MMM heart - RRR, s1 s2, no murmur lungs - decreased BS bases, CTA b/l otherwise abd - soft NT ND BS+ ext - pulses 2+ b/l, no edema musculo - right leg internally rotated - unchanged psych - a/o x 3, affect full, smiling Results & Data Results & [facility] ([facility]) Vital Signs (Past 12 Hours) Vital Signs Temp Pulse Pulse Resp BP Pulse Ox 11/12/21 21:00 36.8 C 81 18 143/82 H 97 11/12/21 14:40 36.6 C 94 H 16 112/71 98 Laboratory Results Laboratory Results - last 24 hr 11/12/21 11/12/21 11/12/21 07:53 07:53 14:52 WBC 9.01 RBC 2.44 L Hgb 7.6 L 8.3 L Hct 22.6 L 25.2 L MCV 92.6 MCH 31.1 MCHC 33.6 RDW Std Deviation 51.5 H RDW Coeff of Crow 16.3 H Plt Count 385 MPV 10.6 H Sodium 139 Potassium 3.9 Chloride 109 H Carbon Dioxide 27 Anion Gap 3 BUN 19 Creatinine 0.55 L Est Cr Clr Drug Dosing 94.2 Est GFR ( Amer) 112.5 Est GFR (Non-Af Amer) 97.1 BUN/Creatinine Ratio 34.5 H Glucose 74 Calcium 7.6 L Magnesium 1.9 PG Care Time/CCT Total # of Minutes Spent Total Time Spent with Patient: Total time spent is greater than 50% in coordination of care (as documented) at patient's floor/unit and/or counseling patient: Coding Level of Care Code 64252 Subseq Hosp Care Lvl 3 Diagnoses Lab test positive for detection of COVID-19 virus U07.1 Urinary tract infection N39.0 Depression F32.A Adrenal insufficiency E27.40 Failure to thrive in adult R62.7 Weakness R53.1 Sacral decubitus ulcer L89.159 Severe protein-calorie malnutrition E43 Hyperlipidemia E78.5 GERD (gastroesophageal reflux disease) K21.9 Chronic cerebral ischemia I67.82 COPD (chronic obstructive pulmonary disease) J42 COPD type: chronic bronchitis Chronic bronchitis type: unspecified Anemia D64.9 Anemia type: unspecified type History of septic arthritis Z87.39 DVT prophylaxis Z29.9 Hypomagnesemia E83.42 Vitamin D deficiency E55.9 (1) Anemia Anemia type: unspecified type Qualified Code(s): D64.9 - Anemia, unspecified (2) COPD (chronic obstructive pulmonary disease) COPD type: chronic bronchitis Chronic bronchitis type: unspecified Qualified Code(s): J42 - Unspecified chronic bronchitis
[2021-11-13 05:46] LABS: Hematocrit (blood only) 23.9 % (37-47); Hemoglobin 7.9 g/dL (12.0-16.0); Mean Corpuscular Hemoglobin 30.6 pg (25-34); Mean Corpuscular Hgb Conc 33.1 g/dL (32-36); Mean Corpuscular Volume 92.6 fL (80-100); Mean Platelet Volume 10.4 fL (7.4-10.4); Platelet Count 431 K/uL (130-400); RDW Coefficient of Variation 16.6 % (11.5-14.5); RDW Standard Deviation 51.2 fL (36.4-46.3); Red Blood Count 2.58 M/uL (4.2-5.4); White Blood Count 10.13 K/uL (4.8-10.8)
[2021-11-13 06:21] LABS: BUN Creatinine Ratio 27.7 (10-20); Calcium 7.6 mg/dl (8.5-10.1); Creatinine Clr Calc Pharmacy 79.7 ml/min; Est GFR (African American) 106.5 ml/min; Est GFR (Non-African American) 91.9 ml/min; Potassium 4.1 mmol/L (3.5-5.1)
[2021-11-13 06:35] LABS: Ferritin 244.6 ng/ml (8-388)
[2021-11-13] MEDS: FAMOTIDINE 20 MG TAB PO SCH ×2 (08:32→21:06)
[2021-11-13] MEDS: CEROVITE ADV FORMULA TAB PO SCH (08:32)
[2021-11-13] MEDS: THIAMINE HCL 100 MG TAB PO SCH ×2 (08:32→21:07)
[2021-11-13] MEDS: ASCORBIC ACID 500 MG TAB PO SCH (08:32)
[2021-11-13] MEDS: NICOTINE 14 MG/24 HR PATCH TD SCH (08:33)
[2021-11-13] MEDS: PANTOprazole 40 MG in SYRINGE 0 ML IV SCH (08:33)
[2021-11-13] MEDS: ZINC SULFATE 220 MG CAPSULE PO SCH (08:33)
[2021-11-13] MEDS: dexAMETHasone 4 MG in SYRINGE 0 ML IV SCH (08:33)
[2021-11-13] MEDS: FOLIC ACID 1 MG in SYRINGE 9.8 ML IV SCH (08:33)
[2021-11-13] MEDS: SUCRALFATE 1 GM/10 ML UDC PO SCH ×4 (08:33→21:05)
[2021-11-13] MEDS: DICLOFENAC SOD 1% GEL 100 GM TUBE EXT SCH ×4 (08:34→21:06)
--- NOTE | 2021-11-13 10:48 | Discharge Summary ---
Date of Service November 13, 2021 Admission HPI Per Admitting Provider The patient is a 66-year-old female with a past medical history including COPD, tobacco use disorder, hypertension, hyperlipidemia, GERD, depression with anxiety, chronic cerebral ischemia, carotid artery stenosis, history of brain surgery, anemia, septic arthritis of hip, history of revision of right MAXIMUS, pulm emboli, acute diastolic CHF, CKD stage IIIb, nausea and vomiting, and pressure ulcer. The patient was most recently admitted to [facility] from 09/02- 09/04/2021 for similar symptoms. At that time, symptoms were thought related to high-dose of Flagyl being used. Since that time, the patient has had persistent daily worsening generalized weakness and ability to ambulate Discharge Data Allergies Allergy/AdvReac Type Severity Reaction Status Date / Time No Known Allergies Allergy Verified 11/03/21 18:24 Consultations 11/04/21 00:12 ED Decision to Admit Stat 11/12/21 11:30 Consult Gastroenterology Routine Ordered Studies 11/03/21 18:58 CT abd pelvis IV con only Stat Hospital Course (1) Lab test positive for detection of COVID-19 virus: Radha Tello is a 66F who presented from home 11/03 with failure to thrive (progressive weakness, dysphagia/vomiting/malnutrition, inability to ambulate) found to be COVID positive on admission. Her past medical history is notable for COPD, tobacco use disorder, hype rtension, hyperlipidemia, GERD, depression with anxiety, chronic cerebral ischemia, carotid artery stenosis s/p CEA, history of brain surgery, anemia, septic arthritis of hip s/p R MAXIMUS revision, pulm emboli, acute diastolic CHF, CKD stage IIIb, nausea and vomiting, and pressure ulcer. [Unvaccinated] Symptom onset a few days prior to admission 11/03 COVID+ 11/04/21 Symptoms included severe fatigue, weakness, and myalgias early in her stay. No pulmonary symptoms and no hypoxia. CXR w/o pneumonia. Symptoms resolved with supportive care and dexamethasone (no antivirals) Asymptomatic. Continue supportive care (2) Urinary tract infection: VREfaecium 11/04/21 Completed 7d daptomycin (11/05-) leggett remains due to large sacral/buttocks decubitus (3) Depression: remeron 7.5mg HS started 11/05/21 tolerating such consider increasing to 15mg soon (4) Adrenal insufficiency: cosyntropin stimulation test results - she did not stim to >18; baseline was 6, and it peaked at 13 her chronic narcotic usage could have led to the secondary adrenal insufficiency, or chronic/recurrent illness, vs other ACTH level pending I reviewed the pt's pharmacy record - she has NOT had steroids in the last few months started dexamethasone 6mg daily IV on 11/09, then weaned to 4mg daily starting today ultimately switch to hydrocortisone - 15mg qam, 5mg qafternoon clearly has had rapid and robust response to steroids c/w this diagnosis adrenal insufficiency may explain her chronic nausea of several months duration and probably contributed to failure to thrive/anorexia (5) Failure to thrive in adult: multifactorial - depression, inability to walk because of previous septic R hip, adrenal insufficiency, etc improving nicely (6) Weakness: Secondary to multiple medical issues improving cont PT, OT needs rehab post-discharge - [facility] (7) Sacral decubitus ulcer: Consulted wound care and recs appreciated MVI, vit C, zinc supplementation cont to improve #8 below (8) Severe protein-calorie malnutrition: Albumin 1.8 upon admission This should improve now that adrenal insufficiency is being treated and appetite is improved (9) Hyperlipidemia: lovastatin on hold due to daptomycin recent CPK wnl can resume lovastatin once off dapto (10) GERD (gastroesophageal reflux disease): Continue pantoprazole Continue pepcid (11) Chronic cerebral ischemia: HOLD aspirin and apixaban - see below (12) COPD (chronic obstructive pulmonary disease): lungs clear, o2 sats wnl (13) Anemia: H/H worse this am repeat the H/H this afternoon was improved [id number] - her overall trend is that of decreasing hemoglobin concerning for GI bleeding GI consult placed to Dr Bain for consideration of EGD hold asa hold eliquis place on IV ppi twice daily place on carafate qid is also on pepcid most recent b12 level was wnl most recent folate was low-normal recent Fe studies were more c/w ACD check fecal occult blood (14) History of septic arthritis: RIGHT Hip - with resulting septic shock prolonged [place] [facility] [place] such finished abx and antifungals in late 2020 recent sed rate/crp largely wnl obtained x-rays of right hip, pelvis, and right knee spoke with on-call orthopedics, [facility] - based on current films and healing likely can weigh-bear as tolerated for transfers/pivoting, etc (15) DVT prophylaxis: eliquis - but place on hold due to concern for occult GI bleeding (16) Hypomagnesemia: replaced and resolved (17) Vitamin D deficiency: vit D level = 15 ergocalciferol 50,000 weekly x 8 weeks first dose - 11/07/21 for right knee pain cont voltaren gel 4gm QID Diet: DVT ppx: Dispo: Discharge Plan Discharge Items Reason For Visit: NAUSEA, VOMITING, DEHYDRATION, SACRAL DECUBITUS Follow-up/Referrals: Edwin Valdez MD [Primary Care Provider] - Medications and DC Order Prescriptions: No Action ondansetron 4 mg tablet,disintegrating 4 mg PO Q6H PRN (Reason: NAUSEA/VOMITING) Qty: 20 RF: 0 oxycodone [Roxicodone] 5 mg tablet See Rx Instructions PO .COMPLEX Qty: 180 RF: 0 pantoprazole [Protonix] 40 mg tablet,delayed release (DR/EC) 40 mg PO DAILYBB Qty: 90 RF: 3 Narcan 4 mg/actuation spray,non-aerosol 4 mg intranasal DIRECTED PRN (Reason: OVERSEDATION) RF: 0 Eliquis 5 mg tablet 5 mg PO BID 30 Days Qty: 60 RF: 5 atorvastatin [Lipitor] 40 mg tablet 40 mg PO QDD RF: 0 aspirin [Aspirin Low Dose] 81 mg tablet,delayed release (DR/EC) 81 mg PO QAM RF: 0 albuterol sulfate [ProAir HFA] 90 mcg/actuation HFA aerosol inhaler 2 inh INHALATION DAILY RF: 0 Admission Data Admit Date/Time: 11/04/21 01:09 Attending Provider: Heidy Kaeting Admit Provider: Konstantin Johnson Primary Care Provider: Edwin Valdez Other Providers: Dileep Pink ; [facility] ; Loy Bain ; Brandon Collins Coding Diagnoses Lab test positive for detection of COVID-19 virus U07.1 Urinary tract infection N39.0 Depression F32.A Adrenal insufficiency E27.40 Failure to thrive in adult R62.7 Weakness R53.1 Sacral decubitus ulcer L89.159 Severe protein-calorie malnutrition E43 Hyperlipidemia E78.5 GERD (gastroesophageal reflux disease) K21.9 Chronic cerebral ischemia I67.82 COPD (chronic obstructive pulmonary disease) J42 COPD type: chronic bronchitis Chronic bronchitis type: unspecified Anemia D64.9 Anemia type: unspecified type History of septic arthritis Z87.39 DVT prophylaxis Z29.9 Hypomagnesemia E83.42 Vitamin D deficiency E55.9
--- NOTE | 2021-11-13 11:08 | Hospitalist Progress Note ---
Date of Service November 13, 2021 Assessment & Plan (1) Lab test positive for detection of COVID-19 virus: (2) Urinary tract infection: (3) Depression: (4) Adrenal insufficiency: (5) Failure to thrive in adult: (6) Weakness: (7) Sacral decubitus ulcer: (8) Severe protein-calorie malnutrition: (9) Hyperlipidemia: (10) GERD (gastroesophageal reflux disease): (11) Chronic cerebral ischemia: (12) COPD (chronic obstructive pulmonary disease): (13) Anemia: (14) History of septic arthritis: (15) Vitamin D deficiency: Plan: Radha Tello is a 66F who presented from home 11/03 with failure to thrive (progressive weakness, dysphagia/vomiting/malnutrition, inability to ambulate) found to be COVID positive on admission. Her past medical history is notable for COPD, tobacco use disorder, HLD, GERD, anxiety/depression, chronic cerebral ischemia, carotid artery stenosis s/p CEA, septic arthritis of hip s/p R MAXIMUS revision, PE, nausea and vomiting, and pressure ulcer. Failure to Thrive, Weakness Multifactorial - depression, R hip problems/immobility, adrenal insufficiency, N/V Improving Management of underlying conditions as below PT/OT. [facility] on DC Severe Protein-Calorie Malnutrition Due to poor appetite & dysphagia/vomiting Albumin 1.8 upon admission Appetite improving now that adrenal insufficiency is being treated Adrenal Insufficiency Assessed for AI given hypotension & chronic nausea/FTT/anorexia Possibly secondary AI due to chronic narcotic usage or chronic/recurrent illness. No chronic/frequent outpatient steroids. Rapid and robust response to steroids AM cortisol 11/05 normal at 16 ACTH Stim 11/10: Baseline cortisol 6. Peak 13. Did not stim to >18 ACTH level pending - Dexamethasone 4mg daily (started 11/12) Previously 6mg daily 11/09- - Ultimately switch to hydrocortisone - 15mg qam, 5mg qafternoon - Will need ongoing PPI & VitD/Ca outpatient in s/o ongoing steroids. No PJP ppx required at hydrocort dose noted above. Normocytic anemia Baseline Hgb 10-12. 10 on admission 11/03. Downtrending gradually since. Oral 7.6 11/12/21. Up to 7.9 now (11/13) Suspect iatrogenic in s/o frequent blood draws as well as anemia of chronic disase/chronic inflammation Normal iron & tsat & ferritin. Low TIBC. Prior concerning for GI bleed, so GI consult placed - EGD planned for this admission. Low suspicion for significant bleed given lack of BM when blood is typically cathartic & no rising BUN. FOBT likely to be positive but not necessarily indicative that this is etiology of anemia. - Hold asa/eliquis until EGD - Await EGD planning (possibly 11/15 after out of isolation) - Switch PPI back to PO given low suspicion for acute UGIB Sacral Decubitus Ulcer Consulted wound care and recs appreciated MVI, vit C, zinc supplementation optimize nutrition GERD/Dysphagia Swallow study this admission w/o aspiration EGD this admission as above Continue pantoprazole 40mg PO BID Continue pepcid PO 20mg BID Carafate QID Aspiration precautions COVID-19 Infection Unvaccinated Symptom onset a few days prior to admission 11/03 COVID+ 11/04/21 Symptoms included severe fatigue, weakness, and myalgias early in her stay. No pulmonary symptoms and no hypoxia. CXR w/o pneumonia. Symptoms resolved with supportive care and dexamethasone (no antivirals) PLAN - Asymptomatic. Continue supportive care VREFaecium UTI- RESOLVED UA/Cx VREfaecium 11/04/10 Completed 7d daptomycin (11/05-) Depression Pt notes she was very depressed [employer]. Mood improved. No SI/HI. - Continue remeron 7.5mg HS (started 11/05/21) HLD, H/o carotid stenosis s/p CEA 2019, Chronic cerebral ischemia - Resume home statin - aspirin held given concern for occult GI bleed OA R Hip s/p MAXIMUS c/b septic arthritis s/p revision - [place] [facility] [place]ished abx and antifungals in late 2020 - Recent sed rate/crp largely wnl - XR R hip/pelvis/R knee obtained - Dr Collins previously spoke with on-call orthopedics, [facility] - based on current films and healing likely can weigh-bear as tolerated for transfers/pivoting, etc Chronic pain Home regimen: OxyIR 5mg two tabs TID PRN - Continue OxyIR 10mg q6h PRN - bowel regimen as below Opioid induced constipation Constipation, likely due to opioids & inactivity - Start senna BID + miralax qD PRN H/o PE Provoked postop hip surgery 05/2021. Home apixaban 5mg BID until at least 11/2021 - Apixaban held at present due to GI bleed concerns COPD/Tobacco smoking No active COPD symptoms Current smoker. - NRT patch inpatient. - Encouraged cessation R Knee pain 2/2 OA & strain from compensating for R hip - Voltaren gel 4gm QID VitD Deficiency VitD 15 - Ergocalciferol 50,000 weekly x 8 weeks (start 11/07/21) Diet: Regular (minced & moist) DVT ppx: Therapeutic AC (eliquis) - on hold currently d/t c/f occult GI bleed Dispo: [facility] when medically ready (awaiting inpatient EGD to r/o GI bleed) Admission and Anticipated Discharge Date Admission Date: November 04, 2021 Subjective vitals unremarkable feeling well eating ok no recent bm. some abdominal discomfort which she attributes to constipation R knee pain well controlled mood positive Review of Systems Review of Systems: No chest pain SOB No VELEZ dizziness/LH Some intermittent nausea, eating ok, +constipation No LE edema R knee pain well controlled Physical Exam Physical Exam: General: Well appearing, lying in bed comfortably CV: Normal rate, regular rhythm. No murmurs. Resp: Breathing comfortably on room air. Lungs clear to auscultation bilaterally. No wheezes, crackles, or rhonchi Abd: Soft, nontender, nondistended Ext: Warm, well perfused. No edema. Mild swelling of R knee w/o erythema. R leg internally rotated Neuro: Alert pleasant conversan Results & Data Results & Data ([facility]) Vital Signs (Past 12 Hours) Vital Signs Temp Pulse Resp BP Pulse Ox 11/13/21 07:46 98.1 F 71 16 117/75 97 PG Care Time/CCT Total # of Minutes Spent Total Time Spent with Patient: Total time spent is greater than 50% in coordination of care (as documented) at patient's floor/unit and/or counseling patient: Coding Level of Care Code 11580 Subseq Hosp Care Lvl 3 Diagnoses Lab test positive for detection of COVID-19 virus U07.1 Urinary tract infection N39.0 Depression F32.A Adrenal insufficiency E27.40 Failure to thrive in adult R62.7 Weakness R53.1 Sacral decubitus ulcer L89.159 Severe protein-calorie malnutrition E43 Hyperlipidemia E78.5 GERD (gastroesophageal reflux disease) K21.9 Chronic cerebral ischemia I67.82 COPD (chronic obstructive pulmonary disease) J42 COPD type: chronic bronchitis Chronic bronchitis type: unspecified Anemia D64.9 Anemia type: unspecified type History of septic arthritis Z87.39 Vitamin D deficiency E55.9 (1) Anemia Anemia type: unspecified type Qualified Code(s): D64.9 - Anemia, unspecified (2) COPD (chronic obstructive pulmonary disease) COPD type: chronic bronchitis Chronic bronchitis type: unspecified Qualified Code(s): J42 - Unspecified chronic bronchitis
[2021-11-13] MEDS ORDERED: POLYETHYLENE (MIRALAX) 17 GM PACK PO PRN (11:34)
[2021-11-13] MEDS ORDERED: POLYETHYLENE (MIRALAX) 17 GM PACK PO ONE (11:35)
[2021-11-13] MEDS: oxyCODONE HCL IR 5 MG TAB (IMMEDIATE RELEASE) PO PRN ×2 (13:00→21:27)
[2021-11-13] MEDS: SENNA 8.6 MG TAB PO SCH ×2 (14:17→21:07)
[2021-11-13] MEDS: PANTOprazole 40 MG TAB PO SCH (21:06)
[2021-11-13] MEDS: MIRTAZAPINE SOLTAB 15 MG PO SCH (21:27)
[2021-11-14 07:59] LABS: Hematocrit (blood only) 25.4 % (37-47); Hemoglobin 8.5 g/dL (12.0-16.0); Mean Corpuscular Hgb Conc 33.5 g/dL (32-36); Mean Corpuscular Volume 92.7 fL (80-100); Platelet Count 484 K/uL (130-400); RDW Coefficient of Variation 16.9 % (11.5-14.5); RDW Standard Deviation 52.8 fL (36.4-46.3); Red Blood Count 2.74 M/uL (4.2-5.4); White Blood Count 11.67 K/uL (4.8-10.8)
[2021-11-14 08:24] LABS: Albumin Level 2.2 gm/dl (3.4-5.0); Calcium 7.7 mg/dl (8.5-10.1); Est GFR (African American) 100.4 ml/min; Est GFR (Non-African American) 86.7 ml/min; Phosphorus 2.8 mg/dl (2.5-4.9); Potassium 4.3 mmol/L (3.5-5.1)
[2021-11-14] MEDS: SENNA 8.6 MG TAB PO SCH ×2 (08:42→20:55)
[2021-11-14] MEDS: ASCORBIC ACID 500 MG TAB PO SCH (08:42)
[2021-11-14] MEDS: FAMOTIDINE 20 MG TAB PO SCH ×2 (08:42→20:59)
[2021-11-14] MEDS: ZINC SULFATE 220 MG CAPSULE PO SCH (08:42)
[2021-11-14] MEDS: ATORVASTATIN 40 MG TAB PO SCH (08:42)
[2021-11-14] MEDS: CEROVITE ADV FORMULA TAB PO SCH (08:43)
[2021-11-14] MEDS: SUCRALFATE 1 GM/10 ML UDC PO SCH ×4 (08:43→20:56)
[2021-11-14] MEDS: THIAMINE HCL 100 MG TAB PO SCH ×2 (08:43→21:00)
[2021-11-14] MEDS: DICLOFENAC SOD 1% GEL 100 GM TUBE EXT SCH ×4 (08:43→21:00)
[2021-11-14] MEDS: NICOTINE 14 MG/24 HR PATCH TD SCH (08:43)
[2021-11-14] MEDS: dexAMETHasone 4 MG in SYRINGE 0 ML IV SCH (08:44)
[2021-11-14] MEDS: PANTOprazole 40 MG TAB PO SCH ×2 (09:39→20:58)
[2021-11-14] MEDS: FOLIC ACID 400 MCG TAB PO SCH (09:39)
--- NOTE | 2021-11-14 10:20 | Communication Note ---
Date of Service: November 14, 2021 66 yr old female admitted with COVID. GI consulted for dysphagia. Had recent EGD in [place] with white plaques suggestive of EOE or oj but path with non specific: parakeratotic changes. Has not been seen in the OP GI department. Currently maintained on Omeprazole 20BID. Please maintain on a soft/slippery diet. Will plan for OP EGD in 2-4 wks. Continue Omeprazole at time of discharge as previous. OP order entered in [facility]. Our office will call her to arrange. GI will sign off. Please let us know if new/worsening GI issues.
[2021-11-14] MEDS ORDERED: MINERAL OIL ENEMA 133 ML BTL PR ONE (15:16)
--- NOTE | 2021-11-14 19:22 | Hospitalist Progress Note ---
Date of Service November 14, 2021 Assessment & Plan (1) Lab test positive for detection of COVID-19 virus: (2) Urinary tract infection: (3) Depression: (4) Adrenal insufficiency: (5) Failure to thrive in adult: (6) Weakness: (7) Sacral decubitus ulcer: (8) Severe protein-calorie malnutrition: (9) Hyperlipidemia: (10) GERD (gastroesophageal reflux disease): (11) Chronic cerebral ischemia: (12) COPD (chronic obstructive pulmonary disease): (13) Anemia: (14) History of septic arthritis: (15) Vitamin D deficiency: Plan: Radha Tello is a 66F who presented from home 11/03 with failure to thrive (progressive weakness, dysphagia/vomiting/malnutrition, inability to ambulate) found to be COVID positive on admission. Her past medical history is notable for COPD, tobacco use disorder, HLD, GERD, anxiety/depression, chronic cerebral ischemia, carotid artery stenosis s/p CEA, septic arthritis of hip s/p R MAXIMUS revision, PE, nausea and vomiting, and pressure ulcer. Failure to Thrive, Weakness Multifactorial - depression, R hip problems/immobility, adrenal insufficiency, N/V Improving Management of underlying conditions as below PT/OT. [facility] on DC Severe Protein-Calorie Malnutrition Due to poor appetite & dysphagia/vomiting Albumin 1.8 upon admission Appetite improving now that adrenal insufficiency is being treated Adrenal Insufficiency Assessed for AI given hypotension & chronic nausea/FTT/anorexia Possibly secondary AI due to chronic narcotic usage or chronic/recurrent illness. No chronic/frequent outpatient steroids. Rapid and robust response to steroids AM cortisol 11/05 normal at 16 ACTH Stim 11/10: Baseline cortisol 6. Peak 13. Did not stim to >18 ACTH level pending - Dexamethasone 4mg daily (started 11/12) Previously 6mg daily 11/09- - switch to hydrocortisone - 15mg qam, 5mg qafternoon tomorrow - Will need ongoing PPI & VitD/Ca outpatient in s/o ongoing steroids. No PJP ppx required at hydrocort dose noted above. Normocytic anemia Baseline Hgb 10-12. 10 on admission 11/03. Downtrending gradually since. Oral 7.6 11/12/21. Up to 8.5 Suspect iatrogenic in s/o frequent blood draws as well as anemia of chronic disease/chronic inflammation Normal iron & tsat & ferritin. Low TIBC. Prior concerning for GI bleed, so GI consult placed - EGD planned for this admission. Low suspicion for significant bleed given lack of BM when blood is typically cathartic & no rising BUN. FOBT likely to be positive but not necessarily indicative that this is etiology of anemia. - Hold asa/eliquis until EGD - Await EGD planning (possibly 11/15 after out of isolation) - Switch PPI back to PO given low suspicion for acute UGIB Sacral Decubitus Ulcer Consulted wound care and recs appreciated MVI, vit C, zinc supplementation optimize nutrition GERD/Dysphagia Swallow study this admission w/o aspiration EGD this admission as above Continue pantoprazole 40mg PO BID Continue pepcid PO 20mg BID Carafate QID Aspiration precautions COVID-19 Infection Unvaccinated Symptom onset a few days prior to admission 11/03 COVID+ 11/04/21 Symptoms included severe fatigue, weakness, and myalgias early in her stay. No pulmonary symptoms and no hypoxia. CXR w/o pneumonia. Symptoms resolved with supportive care and dexamethasone (no antivirals) Can come off isolation VREFaecium UTI- RESOLVED UA/Cx VREfaecium 11/04/10 Completed 7d daptomycin (11/05-) Depression Pt notes she was very depressed [employer]. Mood improved. No SI/HI. - Continue remeron 7.5mg HS (started 11/05/21) HLD, H/o carotid stenosis s/p CEA 2019, Chronic cerebral ischemia - Resume home statin - aspirin held given concern for occult GI bleed OA R Hip s/p MAXIMUS c/b septic arthritis s/p revision - Required prolonged hospitalization in 2020 at [facility] [place]. Finished abx and antifungals in late 2020 - Recent sed rate/crp largely wnl - XR R hip/pelvis/R knee obtained - Dr Collins previously spoke with on-call orthopedics, [facility] - based on current films and healing likely can weigh-bear as tolerated for transfers/pivoting, etc Chronic pain Home regimen: OxyIR 5mg two tabs TID PRN - Continue OxyIR 10mg q6h PRN - bowel regimen as below Opioid induced constipation Constipation, likely due to opioids & inactivity - Start senna BID + miralax qD TID - mineral oil enema H/o PE Provoked postop hip surgery 05/2021. Home apixaban 5mg BID until at least 11/2021 - Apixaban held at present due to GI bleed concerns COPD/Tobacco smoking No active COPD symptoms Current smoker. - NRT patch inpatient. - Encouraged cessation R Knee pain 2/2 OA & strain from compensating for R hip - Voltaren gel 4gm QID VitD Deficiency VitD 15 - Ergocalciferol 50,000 weekly x 8 weeks (start 11/07/21) Diet: Regular (minced & moist) DVT ppx: Therapeutic AC (eliquis) - on hold currently d/t c/f occult GI bleed Dispo: [facility] when medically ready (awaiting inpatient EGD to r/o GI bleed) Admission and Anticipated Discharge Date Admission Date: November 04, 2021 Subjective Still no BM despite senna use. Only had one MiraLAX. She feels hard stool but not able to pass it. Passing gas. [place] catheter in place. Eating well without dysphagia. No shortness of breath or chest pain. Review of Systems Review of Systems: All systems reviewed & are unremarkable except as noted in Subjective Physical Exam Constitutional: well developed; + not well nourished and no acute distress Eyes: + anicteric sclerae; normal pupil size Respiratory: normal respiratory effort, lungs clear to auscultation Cardiovascular: Rate/Rhythm: regular rate and regular rhythm Extremities: normal capillary refill Gastrointestinal (Abdomen): Percussion/Palpation: + abdomen tender (generalized) and abdomen soft; no guarding and abdomen not rigid Neurologic: moves all extremities and awake; not confused Psychiatric: A+Ox3, euthymic affect Results & Data Results & Data ([facility]) Vital Signs (Past 12 Hours) Vital Signs Temp Pulse Resp BP Pulse Ox 11/14/21 16:37 36.6 C 94 H 16 127/83 98 11/14/21 07:57 36.7 C 81 16 124/80 96 PG Care Time/CCT Total # of Minutes Spent Total Time Spent with Patient: Total time spent is greater than 50% in coordination of care (as documented) at patient's floor/unit and/or counseling patient: Coding Level of Care Code 27006 Subseq Hosp Care Lvl 2 Diagnoses Lab test positive for detection of COVID-19 virus U07.1 Urinary tract infection N39.0 Depression F32.A Adrenal insufficiency E27.40 Failure to thrive in adult R62.7 Weakness R53.1 Sacral decubitus ulcer L89.159 Severe protein-calorie malnutrition E43 Hyperlipidemia E78.5 GERD (gastroesophageal reflux disease) K21.9 Chronic cerebral ischemia I67.82 COPD (chronic obstructive pulmonary disease) J42 COPD type: chronic bronchitis Chronic bronchitis type: unspecified Anemia D64.9 Anemia type: unspecified type History of septic arthritis Z87.39 Vitamin D deficiency E55.9 (1) Anemia Anemia type: unspecified type Qualified Code(s): D64.9 - Anemia, unspecified (2) COPD (chronic obstructive pulmonary disease) COPD type: chronic bronchitis Chronic bronchitis type: unspecified Qualified Code(s): J42 - Unspecified chronic bronchitis
[2021-11-14] MEDS ORDERED: GLYCERIN ADULT 12 SUPP/BOX SUPP PR ONE (20:50)
[2021-11-14] MEDS: POLYETHYLENE (MIRALAX) 17 GM PACK PO SCH (20:55)
[2021-11-14] MEDS: MIRTAZAPINE SOLTAB 15 MG PO SCH (20:57)
[2021-11-15] MEDS ORDERED: MINERAL OIL ENEMA 133 ML BTL PR STA (02:05)
[2021-11-15] MEDS: ZINC SULFATE 220 MG CAPSULE PO SCH (09:35)
[2021-11-15] MEDS: SUCRALFATE 1 GM/10 ML UDC PO SCH ×4 (09:35→20:20)
[2021-11-15] MEDS: HYDROCORTISONE 10 MG TAB PO SCH ×2 (09:36→13:59)
[2021-11-15] MEDS: PANTOprazole 40 MG TAB PO SCH ×2 (09:36→20:17)
[2021-11-15] MEDS: ATORVASTATIN 40 MG TAB PO SCH (09:37)
[2021-11-15] MEDS: FAMOTIDINE 20 MG TAB PO SCH ×2 (09:37→20:18)
[2021-11-15] MEDS: FOLIC ACID 400 MCG TAB PO SCH (09:37)
[2021-11-15] MEDS: NICOTINE 14 MG/24 HR PATCH TD SCH (09:38)
[2021-11-15] MEDS: DICLOFENAC SOD 1% GEL 100 GM TUBE EXT SCH ×4 (09:38→20:17)
[2021-11-15] MEDS: POLYETHYLENE (MIRALAX) 17 GM PACK PO SCH ×3 (09:38→20:21)
[2021-11-15] MEDS: SENNA 8.6 MG TAB PO SCH ×2 (09:38→20:22)
[2021-11-15] MEDS: ASCORBIC ACID 500 MG TAB PO SCH (09:41)
[2021-11-15] MEDS: THIAMINE HCL 100 MG TAB PO SCH ×2 (09:42→20:20)
[2021-11-15] MEDS: CEROVITE ADV FORMULA TAB PO SCH (09:42)
[2021-11-15 12:34] LABS: Hematocrit (blood only) 27.8 % (37-47); Hemoglobin 9.3 g/dL (12.0-16.0); Mean Corpuscular Hemoglobin 31.2 pg (25-34); Mean Corpuscular Hgb Conc 33.5 g/dL (32-36); Mean Corpuscular Volume 93.3 fL (80-100); Mean Platelet Volume 10.1 fL (7.4-10.4); Platelet Count 541 K/uL (130-400); RDW Coefficient of Variation 17.6 % (11.5-14.5); RDW Standard Deviation 53.8 fL (36.4-46.3); Red Blood Count 2.98 M/uL (4.2-5.4); White Blood Count 37.48 K/uL (4.8-10.8)
[2021-11-15 12:35] LABS: Basophils # (auto) 0.02 K/uL (0-0.2); Basophils % (auto) 0.1 %; Immature Granulocytes # (auto) 0.22 K/uL (0.00-0.02); Immature Granulocytes % (auto) 0.6 %; Lymphocytes # (auto) 2.26 K/uL (1.2-3.4); Monocytes # (auto) 2.05 K/uL (0.11-0.59); Monocytes % (auto) 5.5 %; Neutrophils # (auto) 32.93 K/uL (1.4-6.5); Neutrophils % (auto) 87.8 %
[2021-11-15 12:36] LABS: BUN Creatinine Ratio 33.3 (10-20); Calcium 7.9 mg/dl (8.5-10.1); Est GFR (African American) 87.1 ml/min; Est GFR (Non-African American) 75.2 ml/min
[2021-11-15] MEDS: MIDODRINE HCL 2.5 MG TAB PO SCH ×2 (12:36→16:51)
[2021-11-15] MEDS ORDERED: LACTATED RINGER'S 500 ML IV ONE (12:37)
[2021-11-15] MEDS ORDERED: ONDANSETRON INJ 2 MG/ML 2 ML VIAL IV PRN (12:39)
[2021-11-15] MEDS ORDERED: MEROPENEM CONSULT ACTIVE PRN (12:42)
[2021-11-15] MEDS ORDERED: MEROPENEM 1,000 MG in SYRINGE 0 ML IV SCH (12:45)
--- NOTE | 2021-11-15 12:49 | Hospitalist Progress Note ---
Date of Service November 15, 2021 Assessment & Plan (1) Lab test positive for detection of COVID-19 virus: (2) Urinary tract infection: (3) Depression: (4) Adrenal insufficiency: (5) Failure to thrive in adult: (6) Weakness: (7) Sacral decubitus ulcer: (8) Severe protein-calorie malnutrition: (9) Hyperlipidemia: (10) GERD (gastroesophageal reflux disease): (11) Chronic cerebral ischemia: (12) COPD (chronic obstructive pulmonary disease): (13) Anemia: (14) History of septic arthritis: (15) Vitamin D deficiency: (16) Sepsis: Plan: Radha Tello is a 66F who presented from home 11/03 with failure to thrive (progressive weakness, dysphagia/vomiting/malnutrition, inability to ambulate) found to be COVID positive on admission. Her past medical history is notable for COPD, tobacco use disorder, HLD, GERD, anxiety/depression, chronic cerebral ischemia, carotid artery stenosis s/p CEA, septic arthritis of hip s/p R MAXIMUS revision, PE, nausea and vomiting, and pressure ulcer. Possible Sepsis Concerning drop in BP this morning prior to dexamethasone changed to hydrocortisone. Improved spontaneously as I was informed of this only when rounding around 11:30am. Patient was on midodrine earlier in the week and will restart this. LR 500ml bolus now. Labs taken stat and WBC increased to 37 with neutrophilia. Restarted on daptomycin to cover VRE and meropenem. UA +culture. Blood cultures taken. Despite hypotension this morning lactate 1.2 therefore aggressive rehydration not done and will use occasional boluses to keep up BP. Given improvement in BP will defer repeating stress dose steroids at the current time as mentation has been normal despite hypotension. Despite FOB positive hemoglobin appears stable. Failure to Thrive, Weakness Multifactorial - depression, R hip problems/immobility, adrenal insufficiency, N/V Improving Management of underlying conditions as below PT/OT. [facility] on DC Severe Protein-Calorie Malnutrition Due to poor appetite & dysphagia/vomiting/constipation Albumin 1.8 upon admission Appetite improving now that adrenal insufficiency is being treated Adrenal Insufficiency Assessed for AI given hypotension & chronic nausea/FTT/anorexia Possibly secondary AI due to chronic narcotic usage or chronic/recurrent illness. No chronic/frequent outpatient steroids. Rapid and robust response to steroids AM cortisol 11/05 normal at 16 ACTH Stim 11/10: Baseline cortisol 6. Peak 13. Did not stim to >18 ACTH level pending - Dexamethasone 4mg daily (started 11/12) Previously 6mg daily 11/09- - switched to hydrocortisone - 15mg qam, 5mg qafternoon today - Will need ongoing PPI & VitD/Ca outpatient in s/o ongoing steroids. No PJP ppx required at hydrocort dose noted above. Normocytic anemia Baseline Hgb 10-12. 10 on admission 11/03. Downtrending gradually since. Oral 7.6 11/12/21. Up to 8.5 Suspect iatrogenic in s/o frequent blood draws as well as anemia of chronic disease/chronic inflammation Normal iron & tsat & ferritin. Low TIBC. Prior concerning for GI bleed, so GI consult placed - EGD planned for this admission. Low suspicion for significant bleed given lack of BM when blood is typically cathartic & no rising BUN. FOBT likely to be positive but not necessarily indicative that this is etiology of anemia. - Hold asa/eliquis until EGD - Await EGD planning (possibly 11/15 after out of isolation) - Switch PPI back to PO given low suspicion for acute UGIB Sacral Decubitus Ulcer Consulted wound care and recs appreciated MVI, vit C, zinc supplementation optimize nutrition GERD/Dysphagia Swallow study this admission w/o aspiration EGD this admission as above Continue pantoprazole 40mg PO BID Continue pepcid PO 20mg BID Carafate QID Aspiration precautions COVID-19 Infection Unvaccinated Symptom onset a few days prior to admission 11/03 COVID+ 11/04/21 Symptoms included severe fatigue, weakness, and myalgias early in her stay. No pulmonary symptoms and no hypoxia. CXR w/o pneumonia. Symptoms resolved with supportive care and dexamethasone (no antivirals) Can come off isolation VREFaecium UTI UA/Cx VREfaecium 11/04/10 Completed 7d daptomycin (11/05-) Depression Pt notes she was very depressed [employer]. Mood improved. No SI/HI. - Continue remeron 7.5mg HS (started 11/05/21) HLD, H/o carotid stenosis s/p CEA 2020, Chronic cerebral ischemia - Resume home statin - aspirin held given concern for occult GI bleed OA R Hip s/p MAXIMUS c/b septic arthritis s/p revision - [place] [facility] [place] Finished abx and antifungals in late 2020 - Recent sed rate/crp largely wnl - XR R hip/pelvis/R knee obtained - Dr Collins previously spoke with on-call orthopedics, [facility] - based on current films and healing likely can weigh-bear as tolerated for transfers/pivoting, etc Chronic pain Home regimen: OxyIR 5mg two tabs TID PRN - Continue OxyIR 10mg q6h PRN - bowel regimen as below Opioid induced constipation Constipation, likely due to opioids & inactivity - Continue senna BID + miralax qD TID - mineral oil enema H/o PE Provoked postop hip surgery 05/2021. Home apixaban 5mg BID until at least 11/2021 - Apixaban held at present due to GI bleed concerns COPD/Tobacco smoking No active COPD symptoms Current smoker. - NRT patch inpatient. - Encouraged cessation R Knee pain 2/2 OA & strain from compensating for R hip - Voltaren gel 4gm QID VitD Deficiency VitD 15 - Ergocalciferol 50,000 weekly x 8 weeks (start 11/07/21) Diet: Regular (minced & moist) DVT ppx: Therapeutic AC (eliquis) - on hold currently d/t c/f occult GI bleed Dispo: Transfer to PCU due to hypotension and possible sepsis. Admission and Anticipated Discharge Date Admission Date: November 04, 2021 Subjective Blood pressure decreased this morning however patient asymptomatic with this. No chest pain, abdominal pain, urinary catheter in place, no CVA tenderness, shortness of breath, cough. Had a large BM overnight. Did not eat breakfast this morning with mild nausea relieved by ondansetron but no dysphagia or odynophagia. Updated her niece over the phone. Review of Systems Review of Systems: All systems reviewed & are unremarkable except as noted in Subjective Physical Exam Constitutional: well developed; + not well nourished and no acute distress Eyes: + anicteric sclerae; normal pupil size Respiratory: normal respiratory effort, lungs clear to auscultation Cardiovascular: Rate/Rhythm: regular rate and regular rhythm Heart Sounds: no murmur Extremities: normal capillary refill Gastrointestinal (Abdomen): Percussion/Palpation: + abdomen tender (generalized) and abdomen soft; no guarding and abdomen not rigid Neurologic: moves all extremities and awake; not confused Psychiatric: A+Ox3, euthymic affect Results & Data Results & Data ([facility]) Vital Signs (Past 12 Hours) Vital Signs Temp Pulse Pulse Resp BP BP Pulse Ox 11/15/21 11:38 112 H 86/56 L 11/15/21 07:43 36.8 C 102 H 16 79/50 L 97 11/15/21 05:13 108 H 18 108/73 96 11/15/21 01:15 98 H 18 122/74 97 PG Care Time/CCT Total # of Minutes Spent Total Time Spent with Patient: Total time spent is greater than 50% in coordination of care (as documented) at patient's floor/unit and/or counseling patient: Coding Level of Care Code 79297 Subseq Hosp Care Lvl 3 Diagnoses Lab test positive for detection of COVID-19 virus U07.1 Urinary tract infection N39.0 Depression F32.A Adrenal insufficiency E27.40 Failure to thrive in adult R62.7 Weakness R53.1 Sacral decubitus ulcer L89.159 Severe protein-calorie malnutrition E43 Hyperlipidemia E78.5 GERD (gastroesophageal reflux disease) K21.9 Chronic cerebral ischemia I67.82 COPD (chronic obstructive pulmonary disease) J42 COPD type: chronic bronchitis Chronic bronchitis type: unspecified Anemia D64.9 Anemia type: unspecified type History of septic arthritis Z87.39 Vitamin D deficiency E55.9 Sepsis A41.9 (1) Anemia Anemia type: unspecified type Qualified Code(s): D64.9 - Anemia, unspecified (2) COPD (chronic obstructive pulmonary disease) COPD type: chronic bronchitis Chronic bronchitis type: unspecified Qualified Code(s): J42 - Unspecified chronic bronchitis
[2021-11-15] MEDS ORDERED: MEROPENEM 500 MG in SYRINGE 0 ML IV ONE (13:30)
[2021-11-15] MEDS ORDERED: DAPTOmycin 325 MG in SYRINGE 0 ML IV ONE (13:30)
[2021-11-15 13:31] LABS: Albumin Level 2.3 gm/dl (3.4-5.0); Bilirubin Direct 0.2 mg/dl (0-0.2); Bilirubin,Total 0.7 mg/dl (0.2-1.0); Total Protein 5.1 gm/dl (6.0-8.3)
--- NOTE | 2021-11-15 13:36 | XRay Report ---
SINGLE VIEW CHEST CLINICAL HISTORY: Sepsis. FINDINGS: 2 AP, portable, upright chest radiographs are compared to study dated 11/05/2021. Correlatio n is made with chest CT dated 01/05/2017. The examination is degraded by portable technique and apical lordotic positioning. The cardiomediastinal silhouette is unremarkable. Emphysema and chronic inters titial thickening is similar to previous. There is bibasilar scarring/atelectasis. No airspace consol idation or large pleural effusion is identified. No pneumothorax is seen. The skeletal structures are osteopenic. The bony thorax is grossly intact. Cholecystectomy clips are noted in the right upper qu adrant. IMPRESSION: Emphysematous change with no active disease in the chest. ACT 112: Negative or not required by law. Electronically signed by: Jp Luna M.D. 11/15/2021 1:35 PM
[2021-11-15] MEDS ORDERED: DAPTOmycin 125 MG in SYRINGE 0 ML IV ONE (14:45)
[2021-11-15 17:53] LABS: Hematocrit (blood only) 24.6 % (37-47); Hemoglobin 8.2 g/dL (12.0-16.0); Mean Corpuscular Hemoglobin 31.3 pg (25-34); Mean Corpuscular Hgb Conc 33.3 g/dL (32-36); Mean Corpuscular Volume 93.9 fL (80-100); Mean Platelet Volume 9.9 fL (7.4-10.4); Platelet Count 477 K/uL (130-400); RDW Standard Deviation 54.4 fL (36.4-46.3); Red Blood Count 2.62 M/uL (4.2-5.4); White Blood Count 27.74 K/uL (4.8-10.8)
[2021-11-15 17:54] LABS: Appearance Urine Turbid (Clear); Bacteria Urine Automated 1+ (Negative); Bilirubin Urine Negative (Negative); Blood Urine Negative (Negative); Color Urine Orange; Epithelial Cell Urine Auto >30 /lpf (0-5); Glucose Urine UA Negative (Negative); Ketones Urine Trace (Negative); Leukocyte Esterase Urine 3+ (Negative); Nitrite Urine Positive (Negative); RBC Urine Automated 0-4 /hpf (0-4); Specific Gravity Urine 1.031 (1.000-1.030); Urobilinogen Urine Negative (Negative); WBC Urine Automated >30 /hpf (0-5); pH Urine >= 9.0 (4.5-7.5)
[2021-11-15 18:22] LABS: Basophilic Stippling 1+; Basophils # (auto) 0.01 K/uL (0-0.2); Hypochromasia Present; Immature Granulocytes # (auto) 0.11 K/uL (0.00-0.02); Immature Granulocytes % (auto) 0.4 %; Lymphocytes % (auto) 7.2 %; Monocytes # (auto) 1.13 K/uL (0.11-0.59); Monocytes % (auto) 4.1 %; Neutrophils # (auto) 24.49 K/uL (1.4-6.5); Neutrophils % (auto) 88.3 %; Polychromasia 1+
[2021-11-15 18:28] LABS: Protein Urine 2+ (Negative)
[2021-11-15 18:36] LABS: Calcium Oxalate Crystals Urine Present (None Prsent)
[2021-11-15 18:37] LABS: Cast Urine Automated 0 /lpf (0-5)
[2021-11-15] MEDS: MEROPENEM 500 MG in SYRINGE 0 ML IV SCH (20:16)
[2021-11-15] MEDS: MIRTAZAPINE SOLTAB 15 MG PO SCH (20:18)
[2021-11-15] MEDS ORDERED: SODIUM CHLORIDE 0.9% 1000ML 500 ML IV ONE (23:40)
[2021-11-16] MEDS: SODIUM CHLORIDE 0.9% 500 ML IV SCH ×2 (00:29→08:00)
[2021-11-16] MEDS: MEROPENEM 500 MG in SYRINGE 0 ML IV SCH ×4 (01:39→19:54)
[2021-11-16 07:04] LABS: Anisocytosis Present; Basophils # (auto) 0.01 K/uL (0-0.2); Basophils % (auto) 0.1 %; Eosinophils # (auto) 0.01 K/uL (0-0.5); Eosinophils % (auto) 0.1 %; Hematocrit (blood only) 22.7 % (37-47); Hemoglobin 7.5 g/dL (12.0-16.0); Immature Granulocytes # (auto) 0.06 K/uL (0.00-0.02); Immature Granulocytes % (auto) 0.4 %; Lymphocytes # (auto) 2.96 K/uL (1.2-3.4); Lymphocytes % (auto) 17.5 %; Mean Corpuscular Hemoglobin 31.4 pg (25-34); Mean Platelet Volume 10.2 fL (7.4-10.4); Monocytes # (auto) 0.88 K/uL (0.11-0.59); Monocytes % (auto) 5.2 %; Neutrophils # (auto) 13.03 K/uL (1.4-6.5); Neutrophils % (auto) 76.7 %; Platelet Count 477 K/uL (130-400); Poikilocytosis Present; Polychromasia 1+; RDW Standard Deviation 55.3 fL (36.4-46.3); Red Blood Count 2.39 M/uL (4.2-5.4); Toxic Granulation 1+; White Blood Count 16.95 K/uL (4.8-10.8)
[2021-11-16 07:20] LABS: Albumin Globulin Ratio 0.8 (0.9-2); BUN Creatinine Ratio 37.3 (10-20); Bilirubin,Total 0.5 mg/dl (0.2-1.0); Calcium 7.1 mg/dl (8.5-10.1); Creatinine Clr Calc Pharmacy 77.4 ml/min; Est GFR (African American) 105.4 ml/min; Globulin 2.4 gm/dl (2.5-4.0); Potassium 3.1 mmol/L (3.5-5.1); Total Protein 4.4 gm/dl (6.0-8.3)
[2021-11-16] MEDS: MIDODRINE HCL 2.5 MG TAB PO SCH ×3 (08:12→17:18)
[2021-11-16] MEDS: FAMOTIDINE 20 MG TAB PO SCH ×2 (08:14→20:02)
[2021-11-16] MEDS: ASCORBIC ACID 500 MG TAB PO SCH (08:15)
[2021-11-16] MEDS: FOLIC ACID 400 MCG TAB PO SCH (08:16)
[2021-11-16] MEDS: HYDROCORTISONE 10 MG TAB PO SCH ×2 (08:18→13:39)
[2021-11-16] MEDS: CEROVITE ADV FORMULA TAB PO SCH (08:19)
[2021-11-16] MEDS: SENNA 8.6 MG TAB PO SCH ×2 (08:19→19:56)
[2021-11-16] MEDS: POLYETHYLENE (MIRALAX) 17 GM PACK PO SCH ×3 (08:19→19:59)
[2021-11-16] MEDS: PANTOprazole 40 MG TAB PO SCH ×2 (08:19→20:02)
[2021-11-16] MEDS: THIAMINE HCL 100 MG TAB PO SCH ×2 (08:19→20:04)
[2021-11-16] MEDS: ZINC SULFATE 220 MG CAPSULE PO SCH (08:20)
[2021-11-16] MEDS: NICOTINE 14 MG/24 HR PATCH TD SCH (08:22)
[2021-11-16] MEDS: DICLOFENAC SOD 1% GEL 100 GM TUBE EXT SCH ×5 (08:22→20:01)
[2021-11-16] MEDS: POTASSIUM CHLORIDE 40 MEQ in SODIUM CHLORIDE 0.9% 1000ML 1,000 ML IV SCH ×2 (08:42→21:37)
[2021-11-16 11:12] LABS: Poikilocytosis Present; Polychromasia 1+
--- NOTE | 2021-11-16 11:12 | Electrocardiogram Report ---
Test Reason : Blood Pressure : / mmHG Vent. Rate : 107 BPM Atrial Rate : 107 BPM P-R Int : 120 ms QRS Dur : 076 ms QT Int : 370 ms P-R-T Axes : -46 071 017 degrees QTc Int : 493 ms Unusual P axis, possible ectopic atrial tachycardia Nonspecific ST and T wave abnormality Abnormal ECG When compared with ECG of 03-NOV-2021 19:33, Ectopic atrial rhythm has replaced Sinus rhythm QT has lengthened Confirmed by Bassem Jenkins ([id number]) on 11/16/2021 11:11:42 AM Referred By: REFERRED SELF Confirmed By:Bassem Jenkins
[2021-11-16 11:13] LABS: Toxic Granulation 1+; Toxic Vacuolation 1+
[2021-11-16] MEDS ORDERED: DAPTOmycin 450 MG in SYRINGE 0 ML IV SCH (14:00)
[2021-11-16] MEDS: MIRTAZAPINE SOLTAB 15 MG PO SCH (20:03)
--- NOTE | 2021-11-16 20:04 | Hospitalist Progress Note ---
Date of Service November 16, 2021 Assessment & Plan (1) Lab test positive for detection of COVID-19 virus: (2) Urinary tract infection: (3) Depression: (4) Adrenal insufficiency: (5) Failure to thrive in adult: (6) Weakness: (7) Sacral decubitus ulcer: (8) Severe protein-calorie malnutrition: (9) Hyperlipidemia: (10) GERD (gastroesophageal reflux disease): (11) Chronic cerebral ischemia: (12) COPD (chronic obstructive pulmonary disease): (13) Anemia: (14) History of septic arthritis: (15) Vitamin D deficiency: (16) Sepsis: Plan: Radha Tello is a 66F who presented from home 11/03 with failure to thrive (progressive weakness, dysphagia/vomiting/malnutrition, inability to ambulate) found to be COVID positive on admission. Her past medical history is notable for COPD, tobacco use disorder, HLD, GERD, anxiety/depression, chronic cerebral ischemia, carotid artery stenosis s/p CEA, septic arthritis of hip s/p R MAXIMUS revision, PE, nausea and vomiting, and pressure ulcer. Possible Sepsis Concerning drop in BP 2/1 with increase in WBC. Lactate 1.2. This occurred prior to dexamethasone switch back to hydrocortisone but after having a large bowel movement the previous night. Continue daptomycin and meropenem empirically. Blood cultures negative 24 hours Urine culture growing GNB - presumably VRE - will need catheter change or more preferably will pass trial without catheter if this is the case Despite FOB positive hemoglobin appears stable. Started on NSS +40 meq KCL due to hypokalemia ?from loose stools and reduced urine output Failure to Thrive, Weakness Multifactorial - depression, R hip problems/immobility, adrenal insufficiency, N/V Improving Management of underlying conditions as below PT/OT. [facility] DC Severe Protein-Calorie Malnutrition Due to poor appetite & dysphagia/vomiting/constipation Albumin 1.8 upon admission Appetite improving now that adrenal insufficiency is being treated Adrenal Insufficiency Assessed for AI given hypotension & chronic nausea/FTT/anorexia Possibly secondary AI due to chronic narcotic usage or chronic/recurrent illness. No chronic/frequent outpatient steroids. Rapid and robust response to steroids AM cortisol 11/05 normal at 16 ACTH Stim 11/10: Baseline cortisol 6. Peak 13. Did not stim to >18 ACTH level pending - Dexamethasone 4mg daily (started 11/12) Previously 6mg daily 11/09- - switched to hydrocortisone - 15mg qam, 5mg qafternoon 11/16 - Will need ongoing PPI & VitD/Ca outpatient in s/o ongoing steroids. No PJP ppx required at hydrocort dose noted above. Normocytic anemia Baseline Hgb 10-12. 10 on admission 11/03. Downtrending gradually since. Oral 7.6 11/12/21. Up to 8.5 Suspect iatrogenic in s/o frequent blood draws as well as anemia of chronic disease/chronic inflammation Normal iron & tsat & ferritin. Low TIBC. Prior concerning for GI bleed, so GI consult placed - EGD planned for this admission. Low suspicion for significant bleed given lack of BM when blood is typically cathartic & no rising BUN. FOBT likely to be positive but not necessarily indicative that this is etiology of anemia. - Hold asa/eliquis until EGD - Await EGD (?outpatient however given we are holding her Eliquis ideally we would do this as an inpatient after sepsis ruled out above). - FOB positive - Switch PPI back to PO given low suspicion for acute UGIB Sacral Decubitus Ulcer Consulted wound care and recs appreciated MVI, vit C, zinc supplementation optimize nutrition GERD/Dysphagia Swallow study this admission w/o aspiration EGD this admission as above Continue pantoprazole 40mg PO BID Continue pepcid PO 20mg BID Carafate QID Aspiration precautions COVID-19 Infection Unvaccinated Symptom onset a few days prior to admission 11/03 COVID+ 11/04/21 Symptoms included severe fatigue, weakness, and myalgias early in her stay. No pulmonary symptoms and no hypoxia. CXR w/o pneumonia. Symptoms resolved with supportive care and dexamethasone (no antivirals) Can come off isolation VREFaecium UTI UA/Cx VREfaecium 11/04/10 Completed 7d daptomycin (11/05-) I am unclear whether catheter was exchanged or trial without catheter was performed at that time Depression Pt notes she was very depressed [employer] SAL[employer]. Mood improved. No SI/HI. - Continue remeron 7.5mg HS (started 11/05/21) HLD, H/o carotid stenosis s/p CEA 2020, Chronic cerebral ischemia - Resume home statin - aspirin held given concern for occult GI bleed OA R Hip s/p MAXIMUS c/b septic arthritis s/p revision - [place] [facility] [place] abx and antifungal s in late 2020 - Recent sed rate/crp largely wnl - XR R hip/pelvis/R knee obtained - Dr Collins previously spoke with on-call orthopedics, [facility] - based on current films and healing likely can weigh-bear as tolerated for transfers/pivoting, etc Chronic pain Home regimen: OxyIR 5mg two tabs TID PRN - Continue OxyIR 10mg q6h PRN - bowel regimen as below Opioid induced constipation Constipation, likely due to opioids & inactivity - large bowel movement 11/14 at night - Senna and Miralax continued if not having BM H/o PE Provoked postop hip surgery 05/2021. Home apixaban 5mg BID - Apixaban held at present due to GI bleed concerns COPD/Tobacco smoking No active COPD symptoms Current smoker. - NRT patch inpatient. - Encouraged cessation R Knee pain 2/2 OA & strain from compensating for R hip - Voltaren gel 4gm QID VitD Deficiency VitD 15 - Ergocalciferol 50,000 weekly x 8 weeks (start 11/07/21) Diet: Regular (minced & moist) DVT ppx: Therapeutic AC (eliquis) - on hold currently d/t c/f occult GI bleed Dispo: Continued management in PCU Admission and Anticipated Discharge Date Admission Date: November 04, 2021 Subjective Having loose stools. No chest pain, abdominal pain, respiratory symptoms, urinary symptoms (leggett catheter still in place). Reduced appetite yesterday (she reports due to moving her bowels she didn't want them to run any more). Hypotension overnight but patient reports she was not aware of this but on NSS this morning. Review of Systems Review of Systems: All systems reviewed & are unremarkable except as noted in Subjective Physical Exam Constitutional: well developed; + not well nourished and no acute distress Eyes: + anicteric sclerae; normal pupil size Respiratory: normal respiratory effort, lungs clear to auscultation Cardiovascular: Rate/Rhythm: regular rate and regular rhythm Heart Sounds: no murmur Extremities: normal capillary refill Gastrointestinal (Abdomen): Percussion/Palpation: abdomen soft; abdomen nontender, no guarding and abdomen not rigid Neurologic: moves all extremities and awake; not confused Psychiatric: A+Ox3, euthymic affect Results & Data Results & Data ([facility]) Vital Signs (Past 12 Hours) Vital Signs Temp Pulse Pulse Resp BP Pulse Ox 11/16/21 19:50 37 C 81 16 91/53 L 97 11/16/21 14:49 37 C 82 18 81/54 L 96 PG Care Time/CCT Total # of Minutes Spent Total Time Spent with Patient: Total time spent is greater than 50% in coordination of care (as documented) at patient's floor/unit and/or counseling patient: Coding Level of Care Code 97562 Subseq Hosp Care Lvl 2 Diagnoses Lab test positive for detection of COVID-19 virus U07.1 Urinary tract infection N39.0 Depression F32.A Adrenal insufficiency E27.40 Failure to thrive in adult R62.7 Weakness R53.1 Sacral decubitus ulcer L89.159 Severe protein-calorie malnutrition E43 Hyperlipidemia E78.5 GERD (gastroesophageal reflux disease) K21.9 Chronic cerebral ischemia I67.82 COPD (chronic obstructive pulmonary disease) J42 COPD type: chronic bronchitis Chronic bronchitis type: unspecified Anemia D64.9 Anemia type: unspecified type History of septic arthritis Z87.39 Vitamin D deficiency E55.9 Sepsis A41.9 (1) Anemia Anemia type: unspecified type Qualified Code(s): D64.9 - Anemia, unspecified (2) COPD (chronic obstructive pulmonary disease) COPD type: chronic bronchitis Chronic bronchitis type: unspecified Qualified Code(s): J42 - Unspecified chronic bronchitis
[2021-11-16] MEDS: oxyCODONE HCL IR 5 MG TAB (IMMEDIATE RELEASE) PO PRN (21:38)
[2021-11-17] MEDS: MEROPENEM 500 MG in SYRINGE 0 ML IV SCH ×4 (02:22→20:29)
[2021-11-17 07:16] LABS: Hematocrit (blood only) 21.5 % (37-47); Hemoglobin 7.2 g/dL (12.0-16.0); Mean Corpuscular Hemoglobin 31.9 pg (25-34); Mean Corpuscular Hgb Conc 33.5 g/dL (32-36); Mean Corpuscular Volume 95.1 fL (80-100); Mean Platelet Volume 9.8 fL (7.4-10.4); Platelet Count 415 K/uL (130-400); RDW Coefficient of Variation 18.8 % (11.5-14.5); RDW Standard Deviation 60.5 fL (36.4-46.3); Red Blood Count 2.26 M/uL (4.2-5.4); White Blood Count 9.66 K/uL (4.8-10.8)
[2021-11-17] MEDS: POLYETHYLENE (MIRALAX) 17 GM PACK PO SCH ×3 (07:16→20:31)
[2021-11-17] MEDS: SENNA 8.6 MG TAB PO SCH ×2 (07:16→20:31)
[2021-11-17 07:37] LABS: ALC (manual) 2.15 K/uL (1.2-3.4); ANC (manual) 7.33 K/uL (1.4-6.5); Acanthocytes 1+; Lymphocytes # (manual) 2.15 K/uL (1.2-3.4); Lymphocytes % (manual) 22.3 %; Monocytes # (manual) 0.17 K/uL (0.11-0.59); Monocytes % (manual) 1.8 %; Neutrophils # (manual) 7.33 K/uL (1.4-6.5); Neutrophils % (manual) 75.9 %
[2021-11-17 07:45] LABS: Albumin Globulin Ratio 0.8 (0.9-2); BUN Creatinine Ratio 34.5 (10-20); Bilirubin,Total 0.4 mg/dl (0.2-1.0); Creatinine Clr Calc Pharmacy 94.2 ml/min; Est GFR (African American) 112.5 ml/min; Est GFR (Non-African American) 97.1 ml/min; Globulin 2.5 gm/dl (2.5-4.0); Magnesium 1.7 mg/dl (1.7-2.4); Phosphorus 1.8 mg/dl (2.5-4.9); Total Protein 4.5 gm/dl (6.0-8.3)
[2021-11-17] MEDS: MIDODRINE HCL 2.5 MG TAB PO SCH ×3 (07:50→17:34)
[2021-11-17] MEDS: NICOTINE 14 MG/24 HR PATCH TD SCH (07:51)
[2021-11-17] MEDS: CEROVITE ADV FORMULA TAB PO SCH (07:52)
[2021-11-17] MEDS: FOLIC ACID 400 MCG TAB PO SCH (07:53)
[2021-11-17] MEDS: HYDROCORTISONE 10 MG TAB PO SCH ×2 (07:53→14:14)
[2021-11-17] MEDS: DICLOFENAC SOD 1% GEL 100 GM TUBE EXT SCH ×4 (07:54→20:30)
[2021-11-17] MEDS: ASCORBIC ACID 500 MG TAB PO SCH (07:54)
[2021-11-17] MEDS: FAMOTIDINE 20 MG TAB PO SCH ×2 (07:55→20:30)
[2021-11-17] MEDS: PANTOprazole 40 MG TAB PO SCH ×2 (07:55→20:31)
[2021-11-17] MEDS: ZINC SULFATE 220 MG CAPSULE PO SCH (07:56)
[2021-11-17] MEDS: THIAMINE HCL 100 MG TAB PO SCH ×2 (07:56→20:31)
[2021-11-17] MEDS: POTASSIUM CHLORIDE 40 MEQ in SODIUM CHLORIDE 0.9% 1000ML 1,000 ML IV SCH ×2 (10:42→23:44)
[2021-11-17] MEDS: oxyCODONE HCL IR 5 MG TAB (IMMEDIATE RELEASE) PO PRN ×2 (12:01→20:31)
[2021-11-17] MEDS: DAPTOmycin 450 MG in SYRINGE 0 ML IV SCH (14:14)
--- NOTE | 2021-11-17 16:39 | Hospitalist Progress Note ---
Date of Service November 17, 2021 Assessment & Plan (1) Lab test positive for detection of COVID-19 virus: Plan: Mrs. Garcia is a 66 year old female with a history of COPD, Cerebral Aneurysm, Anemia, Carotid Artery Stenosis, Chronic Cerebral Ischemia, Pulmonary Emboli, Prediabetes, QT Prolongation, Depression, Anxiety, and Adrenal Insufficiency who was admitted with possible sepsis on 11/04/21 and her symptoms included generalized weakness. failure to thrive, and diarrhea. Her urine culture grew out VRE and Proteus Mirabilis. Her initial WBC# was quite high, but has since normalized. Blood cultures are negative x 2. Additionally she tested positive for SARS CoV 2. Patient is feeling reasonably well today, and continues to improve. No respiratory symptoms or X-ray evidence suggestive of SARS CoV 2 pneumonia. She continues to have loose BM's but these are gradually improving. -- Continue supportive measures. (2) Urinary tract infection: Plan: Initial urine culture grew out Enterococcus faecalis (VRE) on 11/04/21, follow-up urine culture grew out Proteus Mirabilis. -- Continue IV Daptomycin. -- Continue IV Meropenem. (3) Hyperlipidemia: Plan: -- Continue Atorvastatin 40 mg daily. (4) Chronic cerebral ischemia: Plan: -- Continue Atorvastatin 40 mg daily. -- Continue Aspirin 81 mg daily. (5) Carotid artery stenosis: Plan: -- Continue Atorvastatin 40 mg daily. -- Continue Aspirin 81 mg daily. -- Surveillance with Carotid Dopplers. Admission and Anticipated Discharge Date Admission Date: November 04, 2021 Supervising Physician Co-Signing Physician Notes chart reviewed agree braeden gleason pa-c Subjective Mrs. Garcia is a 66 year old female with a history of COPD, Cerebral Aneurysm, Anemia, Carotid Artery Stenosis, Chronic Cerebral Ischemia, Pulmonary Emboli, Prediabetes, QT Prolongation, Depression, Anxiety, and Adrenal Insufficiency who was admitted with possible sepsis on 11/04/21 and her symptoms included generalized weakness. failure to thrive, and diarrhea. Her urine culture grew out VRE and Proteus Mirabilis. Her initial WBC# was quite high, but has since normalized. Blood cultures are negative x 2. Additionally she tested positive for SARS CoV 2. Patient is feeling reasonably well today, and continues to improve. She continues to have loose BM's but these are gradually improving. She specifically denies any fever, chills, abdominal pain, or dysuria. She denies any chest pain or heaviness. She denies any shortness of or significant cough. Appetite is good. Review of Systems Review of Systems: 10 point ROS completed and is negative with the exception of what is mentioned in the HPI. Physical Exam Physical Exam: GENERAL: Patient in no acute distress. HEENT: Head is atraumatic, normocephalic. EOM's intact. Facies symmetric. No perioral cyanosis. NECK: No JVD. JVP is at the level of the clavicle sitting upright. Carotid upstrokes are + 2 bilaterally. No bruits are noted. CHEST/LUNGS: Clear to auscultation throughout all lung nina. No wheezes, rales, or crackles. CVS: S1 and S2 are regular without murmurs, gallops, or rubs. PMI is nondisplaced. No lifts, heaves, or thrills. No abdominal aortic or renal bruits. ABDOMINAL EXAM: Bowel sounds are present. No masses, organomegaly, or tenderness. EXTREMITIES: No clubbing or cyanosis. No edema. Intact radial pulses bilaterally. NEUROLOGIC EXAM: Patient is awake, alert, and oriented. Pleasant and cooperative. Answers questions appropriately. Speech is clear. Normal movement in all 4 extremities. Gait pattern is not assessed. Results & Data Results & Data ([facility]) Vital Signs (Past 12 Hours) Vital Signs Temp Pulse Pulse Resp BP Pulse Ox 11/17/21 16:00 83 11/17/21 15:57 36.9 C 91 H 20 100/73 97 11/17/21 11:23 36.9 C 94 H 16 109/73 99 11/17/21 08:00 79 11/17/21 07:28 36.8 C 79 114/75 100 Laboratory Results Laboratory Results - last 24 hr 11/17/21 11/17/21 11/17/21 06:52 06:52 07:17 WBC 9.66 RBC 2.26 L Hgb 7.2 L Hct 21.5 L MCV 95.1 MCH 31.9 MCHC 33.5 RDW Std Deviation 60.5 H RDW Coeff of Crow 18.8 H Plt Count 415 H MPV 9.8 Neutrophils % (Manual) 75.9 Lymphocytes % (Manual) 22.3 Monocytes % (Manual) 1.8 Neutrophils # (Manual) 7.33 H Total Absolute Neuts 7.33 H Lymphocytes # (Manual) 2.15 Total Abs Lymphocytes 2.15 Monocytes # (Manual) 0.17 Acanthocytes (Spur) 1+ Sodium 138 Potassium 4.0 D Chloride 114 H Carbon Dioxide 21 Anion Gap 3 BUN 19 Creatinine 0.55 L Est Cr Clr Drug Dosing 94.2 Est GFR ( Amer) 112.5 Est GFR (Non-Af Amer) 97.1 BUN/Creatinine Ratio 34.5 H Glucose 75 POC Glucose 78 Calcium 7.0 L Phosphorus 1.8 L Magnesium 1.7 Total Bilirubin 0.4 AST 20 ALT 28 Alkaline Phosphatase 65 Total Protein 4.5 L Albumin 2.0 L Globulin 2.5 Albumin/Globulin Ratio 0.8 L Diagnostic Findings CTAP 11/03/21: 1. No acute abnormalities. 2. 8mm nodule with satellite nodules in the right lower lobe which was not seen on chest CT performed 01/05/2017. With additional groundglass and tree in bud nodularity in the left lung, this may represent infectious/inflammatory process. 3 month follow-up CT of the chest is recommended to exclude malignancy. 3. Hepatic steatosis. 4. Additional findings as above. CXR 11/15/21: 2 AP, portable, upright chest radiographs are compared to study dated 11/05/2021. Correlation is made with chest CT dated 01/05/2017. The examination is degraded by portable technique and apical lordotic positioning. The cardiomediastinal silhouette is unremarkable. Emphysema and chronic interstitial thickening is similar to previous. There is bibasilar scarring/atelectasis. No airspace consolidation or large pleural effusion is identified. No pneumothorax is seen. The skeletal structures are osteopenic. The bony thorax is grossly intact. Cholecystectomy clips are noted in the right upper quadrant. IMPRESSION: -- Emphysematous change with no active disease in the chest. Medications Administered Medications albuterol sulfate 90 mcg/actuation aerosol inhaler (ProAir HFA) 2 inh INHALATION DAILY 05/20/21 [History Confirmed 11/03/21] aspirin 81 mg tablet,delayed release (Aspirin Low Dose) 81 mg PO QAM 05/20/21 [History Confirmed 11/03/21] atorvastatin 40 mg tablet (Lipitor) 40 mg PO QDD 05/20/21 [History Confirmed 11/03/21] naloxone 4 mg/actuation nasal spray (Narcan) 4 mg INTRANASAL DIRECTED PRN ea 06/13/21 [History Confirmed 11/03/21] apixaban 5 mg tablet (Eliquis) 5 mg PO BID 30 Days #60 tab 06/14/21 [Rx Confirmed 11/03/21] pantoprazole 40 mg tablet,delayed release (Protonix) 40 mg PO DAILYBB #90 tab 08/11/21 [Rx Confirmed 11/03/21] ondansetron 4 mg disintegrating tablet 4 mg PO Q6H PRN #20 tab 10/17/21 [Rx Confirmed 11/03/21] oxycodone 5 mg tablet (Roxicodone) See Rx Instructions PO .COMPLEX #180 tab 10/26/21 [Rx Confirmed 11/03/21] Home Medications Apixaban (Apixaban 5 Mg Tablet) 5 mg PO BID [facility] Stop: 12/06/21 09:14 Last Admin: 11/12/21 09:05 Dose: 5 mg Documented by: Ascorbic Acid (Ascorbic Acid 500 Mg Tab) 500 mg PO [facility] Stop: 12/06/21 09:29 Last Admin: 11/17/21 07:54 Dose: Not Given Documented by: Aspirin (Aspirin 81 Mg Ectab) 81 mg PO [facility] Stop: 12/06/21 09:14 Last Admin: 11/12/21 09:05 Dose: 81 mg Documented by: Atorvastatin Calcium (Atorvastatin 40 Mg Tab) 40 mg PO QAM [facility] Stop: 12/14/21 08:59 Last Admin: 11/15/21 09:37 Dose: 40 mg Documented by: Diclofenac Sodium (Diclofenac Sod 1% Gel 100 Gm Tube) 4 gm EXT QID [facility] Stop: 12/09/21 08:59 Last Admin: 11/17/21 12:00 Dose: 4 gm Documented by: Famotidine (Famotidine 20 Mg Tab) 20 mg PO BID [facility] Stop: 12/07/21 20:59 Last Admin: 11/17/21 07:55 Dose: 20 mg Documented by: Folic Acid (Folic Acid 400 Mcg Tab) 400 mcg PO QAM [facility] Stop: 12/14/21 08:59 Last Admin: 11/17/21 07:53 Dose: 400 mcg Documented by: Hydrocortisone (Hydrocortisone 10 Mg Tab) 15 mg PO [facility] Stop: 12/15/21 08:59 Last Admin: 11/17/21 07:53 Dose: 15 mg Documented by: Hydrocortisone (Hydrocortisone 10 Mg Tab) 5 mg PO Q24H [facility] Stop: 12/15/21 13:59 Last Admin: 11/17/21 14:14 Dose: 5 mg Documented by: Meropenem 500 mg/ Syringe 10 mls @ 2 mls/min IV Q6H [facility]; Protocol Stop: 11/19/21 19:59 Last Admin: 11/17/21 14:15 Dose: 2 mls/min Documented by: Potassium Chloride 40 meq/ (Sodium Chloride) 1,020 mls @ 80 mls/hr IV .[id number] [facility] Stop: 12/16/21 07:59 Last Admin: 11/17/21 10:42 Dose: 80 mls/hr Documented by: Daptomycin 450 mg/ Syringe 9 mls @ 4.5 mls/min IV Q24H [facility]; Protocol Stop: 11/19/21 14:01 Last Admin: 11/17/21 14:14 Dose: 4.5 mls/min Documented by: Midodrine (Midodrine Hcl 2.5 Mg Tab) 5 mg PO TID@0800,1200,1700 [facility] Stop: 12/15/21 11:59 Last Admin: 11/17/21 12:00 Dose: 5 mg Documented by: Mirtazapine (Mirtazapine Soltab 15 Mg) 7.5 mg PO HS [facility] Stop: 12/05/21 21:29 Last Admin: 11/16/21 20:03 Dose: 7.5 mg Documented by: Miscellaneous (Remove Nicoderm Patch) 1 ea N/A DAILY@0859 [facility] Stop: 12/11/21 19:28 Last Admin: 11/17/21 07:58 Dose: 1 ea Documented by: Miscellaneous Information (Daptomycin Consult Active) 1 ea N/A UD PRN PRN Reason: Consult Stop: 12/15/21 12:39 Miscellaneous Information (Meropenem Consult Active) 1 ea N/A UD PRN PRN Reason: Consult Stop: 12/15/21 12:41 Multivitamins/Minerals (Cerovite Adv Formula Tab) 1 tab PO QAM [facility] Stop: 12/06/21 09:29 Last Admin: 11/17/21 07:52 Dose: Not Given Documented by: Nicotine (Nicotine 14 Mg/24 Hr Patch) 14 mg TD QAM [facility] Stop: 12/11/21 19:29 Last Admin: 11/17/21 07:51 Dose: 14 mg Documented by: Ondansetron HCl (Ondansetron Inj 2 Mg/Ml 2 Ml Vial) 4 mg IV Q4H PRN PRN Reason: Nausea Stop: 12/15/21 12:38 Last Admin: 11/15/21 12:49 Dose: 4 mg Documented by: Oxycodone HCl (Oxycodone Hcl Ir 5 Mg Tab (Immediate Release)) 10 mg PO Q6H PRN PRN Reason: Pain Stop: 11/19/21 08:11 Last Admin: 11/17/21 12:01 Dose: 10 mg Documented by: Pantoprazole Sodium (Pantoprazole 40 Mg Tab) 40 mg PO BID [facility] Stop: 12/13/21 20:59 Last Admin: 11/17/21 07:55 Dose: 40 mg Documented by: Polyethylene Glycol (Polyethylene (Miralax) 17 Gm Pack) 17 gm PO DAILY PRN PRN Reason: Constipation Stop: 12/13/21 11:33 Last Admin: 11/14/21 15:01 Dose: 17 gm Documented by: Polyethylene Glycol (Polyethylene (Miralax) 17 Gm Pack) 17 gm PO TID [facility] Stop: 12/14/21 20:59 Last Admin: 11/17/21 13:59 Dose: Not Given Documented by: Sennosides (Senna 8.6 Mg Tab) 17.2 mg PO BID [facility] Stop: 12/13/21 11:44 Last Admin: 11/17/21 07:16 Dose: Not Given Documented by: Sucralfate (Sucralfate 1 Gm/10 Ml Udc) 1 gm PO QID [facility] Stop: 12/12/21 12:59 Last Admin: 11/15/21 20:20 Dose: 1 gm Documented by: Thiamine HCl (Thiamine Hcl 100 Mg Tab) 200 mg PO BID [facility] Stop: 12/09/21 08:59 Last Admin: 11/17/21 07:56 Dose: Not Given Documented by: Zinc Sulfate (Zinc Sulfate 220 Mg Capsule) 220 mg PO QAM [facility] Stop: 12/06/21 09:29 Last Admin: 11/17/21 07:56 Dose: Not Given Documented by: PG Care Time/CCT Total # of Minutes Spent Total Time Spent with Patient: Total time spent is greater than 50% in coordination of care (as documented) at patient's floor/unit and/or counseling patient:42 Coding Level of Care Code 53206 Subseq Hosp Care Lvl 3 Diagnoses Lab test positive for detection of COVID-19 virus U07.1 Urinary tract infection N39.0 Hyperlipidemia E78.5 Chronic cerebral ischemia I67.82 Carotid artery stenosis I65.29 Time Spent (min) 62
[2021-11-17] MEDS: MIRTAZAPINE SOLTAB 15 MG PO SCH (20:31)
[2021-11-18] MEDS: MEROPENEM 500 MG in SYRINGE 0 ML IV SCH ×3 (03:41→13:59)
[2021-11-18] MEDS: MIDODRINE HCL 2.5 MG TAB PO SCH ×2 (08:18→12:42)
[2021-11-18] MEDS: ZINC SULFATE 220 MG CAPSULE PO SCH (08:18)
[2021-11-18] MEDS: PANTOprazole 40 MG TAB PO SCH (08:18)
[2021-11-18] MEDS: NICOTINE 14 MG/24 HR PATCH TD SCH (08:18)
[2021-11-18] MEDS: THIAMINE HCL 100 MG TAB PO SCH (08:19)
[2021-11-18] MEDS: ASCORBIC ACID 500 MG TAB PO SCH (08:20)
[2021-11-18] MEDS: HYDROCORTISONE 10 MG TAB PO SCH ×2 (08:20→13:58)
[2021-11-18] MEDS: FOLIC ACID 400 MCG TAB PO SCH (08:22)
[2021-11-18] MEDS: SENNA 8.6 MG TAB PO SCH (08:22)
[2021-11-18] MEDS: POLYETHYLENE (MIRALAX) 17 GM PACK PO SCH ×2 (08:22→13:59)
[2021-11-18] MEDS: FAMOTIDINE 20 MG TAB PO SCH (08:23)
[2021-11-18] MEDS: CEROVITE ADV FORMULA TAB PO SCH (08:23)
[2021-11-18] MEDS: DICLOFENAC SOD 1% GEL 100 GM TUBE EXT SCH ×2 (08:24→12:42)
[2021-11-18] MEDS: POTASSIUM CHLORIDE 40 MEQ in SODIUM CHLORIDE 0.9% 1000ML 1,000 ML IV SCH (12:41)
[2021-11-18] MEDS: oxyCODONE HCL IR 5 MG TAB (IMMEDIATE RELEASE) PO PRN (13:57)
[2021-11-18] MEDS: DAPTOmycin 450 MG in SYRINGE 0 ML IV SCH (13:58)
--- NOTE | 2021-11-18 15:02 | Discharge Summary ---
Date of Service November 18, 2021 Admission HPI Per Admitting Provider The patient is a 66-year-old female with a past medical history including COPD, tobacco use disorder, hypertension, hyperlipidemia, GERD, depression with anxiety, chronic cerebral ischemia, carotid artery stenosis, history of brain surgery, anemia, septic arthritis of hip, history of revision of right MAXIMUS, pulm emboli, acute diastolic CHF, CKD stage IIIb, nausea and vomiting, and pressure ulcer. The patient was most recently admitted to [facility] from 09/02- 09/04/2021 for similar symptoms. At that time, symptoms were thought related to high-dose of Flagyl being used. Since that time, the patient has had persistent daily worsening generalized weakness and ability to ambulate Admission Exam Per Admitting Provider The patient is awake, alert and oriented 3, mildly lethargic, normocephalic and atraumatic, lying in bed and in no acute distress. HEENT--PERRL, EOMI, mucous membranes and oropharynx dry. Neck--supple. No JVD. No bruits. Thyroid normal, trachea midline, no adenopathy. Heart--normal S1 and S2. No murmurs, rubs or gallops. Lungs--clear bilaterally, no respiratory distress, no accessory muscle use. Abdomen--normal bowel sounds and soft. Nontender. Nondistended, no hernias or masses, no organomegaly. Extremities--no cyanosis or clubbing. No edema. Dermatologic--yeast in groin. Sacral decubiti stage I and stage II Neurologic--cranial nerves II through XII grossly intact. Rheumatologic--limited exam Psychiatric--normal affect. Principal Diagnosis 1. Catheter associated UTI, urine culture grew out VRE and later specimen grew out Proteus Mirabilis. 2. COVID + as of 11/04/21, no evidence of pneumonia. Discharge Exam GENERAL: Patient in no acute distress. HEENT: Head is atraumatic, normocephalic. EOM's intact. Facies symmetric. No perioral cyanosis. NECK: No JVD. JVP is at the level of the clavicle sitting upright. Carotid upstrokes are + 2 bilaterally. No bruits are noted. CHEST/LUNGS: Clear to auscultation throughout all lung nina. No wheezes, rales, or crackles. CVS: S1 and S2 are regular without murmurs, gallops, or rubs. PMI is nondisplaced. No lifts, heaves, or thrills. No abdominal aortic or renal bruits. ABDOMINAL EXAM: Bowel sounds are present. No masses, organomegaly, or tenderness. EXTREMITIES: No clubbing or cyanosis. No edema. Intact radial pulses bilaterally. NEUROLOGIC EXAM: Patient is awake, alert, and oriented. Pleasant and cooperative. Answers questions appropriately. Speech is clear. Normal movement in all 4 extremities. Gait pattern is not assessed. Discharge Data Allergies Allergy/AdvReac Type Severity Reaction Status Date / Time No Known Allergies Allergy Verified 11/03/21 18:24 Consultations 11/04/21 00:12 ED Decision to Admit Stat 11/12/21 11:30 Consult Gastroenterology Routine Ordered Studies CXR 11/15/21: 2 AP, portable, upright chest radiographs are compared to study dated 11/05/2021. Correlation is made with chest CT dated 01/05/2017. The examination is degraded by portable technique and apical lordotic positioning. The cardiomediastinal silhouette is unremarkable. Emphysema and chronic interstitial thickening is similar to previous. There is bibasilar scarring/atelectasis. No airspace consolidation or large pleural effusion is identified. No pneumothorax is seen. The skeletal structures are osteopenic. The bony thorax is grossly intact. Cholecystectomy clips are noted in the right upper quadrant. IMPRESSION: -- Emphysematous change with no active disease in the chest. 11/03/21 18:58 CT abd pelvis IV con only Stat Lower chest: Multiple wall thickening is seen which may be secondary to chronic inflammation. There is a 31 mm groundglass opacity in the lingula and an 8 mm nodule in the right lower lobe (series 3 image 19). Liver: Hepatic steatosis is noted. Gallbladder and biliary tree: Patient is status post cholecystectomy. Physiologic prominence of the biliary ducts is noted. Pancreas: Fatty replacement of the pancreas is seen. Spleen: Unremarkable. Adrenals: Unremarkable. Kidneys and ureters: A right nonobstructive stone is seen. Bladder: Limited evaluation due to underdistention. A tiny focus of air seen in the bladder. Reproductive organs: Patient is status post hysterectomy. Bowel: Diverticulosis is seen without evidence of diverticulitis. A hiatal hernia is seen. Lymph nodes Retroperitoneal: Subcentimeter lymph nodes are noted. Mesenteric: Unremarkable. Pelvic: Unremarkable. Peritoneum: Normal. Vessels: Atherosclerotic calcifications are seen. Abdominal wall: Unremarkable. Bones: Degenerative changes in the visualized spine. A right hip arthroplasty is seen. IMPRESSION: 1. No acute abnormalities. 2. 8mm nodule with satellite nodules in the right lower lobe which was not seen on chest CT performed 01/05/2017. With additional ground glass and tree in bud nodularity in the left lung, this may represent infectious/inflammatory process. 3 month follow-up CT of the chest is recommended to exclude malignancy. 3. Hepatic steatosis. 4. Additional findings as above. Hospital Course (1) Lab test positive for detection of COVID-19 virus: Mrs. Garcia is a 66 year old female with a history of COPD, Cerebral Aneurysm, Anemia, Carotid Artery Stenosis, Chronic Cerebral Ischemia, Pulmonary Emboli, Prediabetes, QT Prolongation, Depression, Anxiety, and Adrenal Insufficiency who was admitted with possible sepsis on 11/04/21 and her symptoms included generalized weakness. failure to thrive, and diarrhea. Her urine culture grew out VRE and Proteus Mirabilis. Her initial WBC# was quite high, but has since normalized. Blood cultures are negative x 2. Additionally she tested positive for SARS CoV 2. Patient is feeling well today, and continues to improve. No respiratory symptoms or X-ray evidence suggestive of SARS CoV 2 pneumonia. -- Continue supportive measures. -- Continue inhalers. (2) Urinary tract infection: Initial urine culture grew out Enterococcus faecalis (VRE) on 11/04/21, follow-up urine culture grew out Proteus Mirabilis. -- D/C IV Daptomycin. -- D/C IV Meropenem. -- Convert to oral antibiotics on transfer. (3) Hyperlipidemia: -- Continue Atorvastatin 40 mg daily. (4) Chronic cerebral ischemia: -- Continue Atorvastatin 40 mg daily. -- Continue Aspirin 81 mg daily. (5) Carotid artery stenosis: -- Continue Atorvastatin 40 mg daily. -- Continue Aspirin 81 mg daily. -- Surveillance with Carotid Dopplers. 1. Transfer to [facility]. Total Time Total Time Spent Total Time Spent (In Minutes): 25 Discharge Plan Discharge Items Patient Disposition: Transfer Inpatient Rehab Fac Reason For Visit: NAUSEA, VOMITING, DEHYDRATION, SACRAL DECUBITUS Discharge Diagnosis: UTI, weakness Activity: Resume your previous activity Lifting: Gradually increase as tolerated Bathing: No limitations Sexual Activity: When tolerated Exercise/Sports: Gradually increase as tolerated Driving/Machine Use: No limitations Weightbearing: Full weightbearing Non-emergency contact: Primary Care Provider Call non-emergency contact if: you have any medication questions, your symptoms worsen and you have a fever Follow-up/Referrals: Edwin Valdez MD [Primary Care Provider] - Diet: Heart Healthy Addtl Attending Provider Instructions: please see discharge summary; otherwise per rehab anticipate another 5 days PO abx for UTI w cefdinir - but can extend if clinically warranted Pending Studies at Discharge: No Stand-Alone Forms: My [facility] [place] Skilled Items Patient informed of condition?: No DNR: No Discharge Level of Care: Acute rehab Communicable Disease: No Discharge Prognosis: Improving Lines: None Urinary Catheter: No Medications and DC Order Prescriptions: New midodrine 2.5 mg Tablet 5 mg PO TID@0800,1200,1700 Qty: 30 RF: 0 diclofenac sodium [Voltaren Arthritis Pain] 1 % Gel 4 g EXT QID Qty: 100 RF: 0 sennosides [Senokot] 8.6 mg Tablet 17.2 mg PO BID Qty: 30 RF: 0 polyethylene glycol 3350 [Miralax] 17 gram Powder In Packet 17 g PO TID Qty: 30 RF: 0 polyethylene glycol 3350 [Miralax] 17 gram Powder In Packet 17 g PO DAILY PRN (Reason: constipation) Qty: 10 RF: 0 famotidine 20 mg Tablet 20 mg PO BID Qty: 20 RF: 0 ascorbic acid (vitamin C) [Vitamin C] 500 mg Tablet 500 mg PO QAM Qty: 30 RF: 0 pantoprazole 40 mg Tablet,Delayed Release (Dr/Ec) 40 mg PO BID Qty: 30 RF: 0 hydrocortisone [Cortef] 10 mg Tablet 5 mg PO Q24H Qty: 30 RF: 0 hydrocortisone [Cortef] 10 mg Tablet 15 mg PO QAM Qty: 30 RF: 0 mirtazapine 15 mg Tablet,Disintegrating 7.5 mg PO HS Qty: 10 RF: 0 oxycodone 5 mg Tablet 10 mg PO Q6H PRN (Reason: delvis) Qty: 10 RF: 0 zinc sulfate [Orazinc] 50 mg zinc (220 mg) Capsule 220 mg PO QAM Qty: 30 RF: 0 thiamine HCl (vitamin B1) 100 mg Tablet 200 mg PO BID Qty: 60 RF: 0 folic acid 400 mcg Tablet 400 mcg PO QAM Qty: 30 RF: 0 nicotine 7 mg/24 hr Patch 24 Hour 14 mg transdermal QAM Qty: 30 RF: 0 Cerovite Senior Tablet 1 tab PO QAM Qty: 30 RF: 0 cefdinir 300 mg capsule 300 mg PO BID 5 Days Qty: 10 RF: 0 Continued ondansetron 4 mg tablet,disintegrating 4 mg PO Q6H PRN (Reason: NAUSEA/VOMITING) Qty: 20 RF: 0 Narcan 4 mg/actuation spray,non-aerosol 4 mg intranasal DIRECTED PRN (Reason: OVERSEDATION) RF: 0 Eliquis 5 mg tablet 5 mg PO BID 30 Days Qty: 60 RF: 5 atorvastatin [Lipitor] 40 mg tablet 40 mg PO QDD RF: 0 aspirin [Aspirin Low Dose] 81 mg tablet,delayed release (DR/EC) 81 mg PO QAM RF: 0 albuterol sulfate [ProAir HFA] 90 mcg/actuation HFA aerosol inhaler 2 inh INHALATION DAILY RF: 0 Discontinued oxycodone [Roxicodone] 5 mg tablet See Rx Instructions PO .COMPLEX Qty: 180 RF: 0 pantoprazole [Protonix] 40 mg tablet,delayed release (DR/EC) 40 mg PO DAILYBB Qty: 90 RF: 3 Discharge Orders: Discharge Order (Routine); Ordered 11/18/21 Ordered By: John De Oliveira Admission Data Admit Date/Time: 11/04/21 01:09 Attending Provider: John De Oliveira Admit Provider: Konstantin Johnson Primary Care Provider: Edwin Valdez Other Providers: Dileep Pink ; [facility] ; Brandon Collins ; Konstantin Johnson ; Loy Bain ; Brandon Donald Supervising Physician Co-Signing Physician Notes I personally examined the patient and verified all garcia points of history and exam, discussed case, and agree with decision making with Ten Krishnan PAC Going to rehab. No new complaints. Motivated. Vitals noted, in general she is awake and alert pleasant no distress. HEENT normocephalic atraumatic mucous membranes moist. Breathing unlabored no accessory muscle use good effort. Skin shows no rashes no pallor or icterus. Sepsis/UTIimproved. Stable for rehab. Finish course of antibiotics. Medications for adrenal insufficiency, etc. PT/OT eval and treat. Otherwise as above Coding Level of Care Code D/C DAY MANAGEMENT >30 MINS Diagnoses Lab test positive for detection of COVID-19 virus U07.1 Urinary tract infection N39.0 Hyperlipidemia E78.5 Chronic cerebral ischemia I67.82 Carotid artery stenosis I65.29 Time Spent (min) 38
== END 2021-11-18 15:40 | DRG 698 ==
LOC: ED 17:40 → SUATTDRO 11-04 01:09 → EDINP 11-04 01:09 → 3E 11-04 03:54 → 2S 11-15 12:47

== ENCOUNTER 2022-08-19 09:41 | Inpatient (IN) ==
[2022-08-19] MEDS ORDERED: HYDROCORTISONE SOD SUCCINATE 100 MG/2 ML VIAL IV STA (10:00)
[2022-08-19] MEDS ORDERED: ALBUT/IPRATROP 3MG/0.5MG NEB 3 ML VIAL NEB STA (10:00)
[2022-08-19 10:13] LABS: Basophils # (auto) 0.01 K/uL (0-0.2); Basophils % (auto) 0.1 %; Hematocrit (blood only) 35.8 % (34.1-44.9); Hemoglobin 11.7 g/dl (12.0-16.0); Immature Granulocytes # (auto) 0.08 K/uL (0.00-0.02); Immature Granulocytes % (auto) 0.7 %; Lymphocytes # (auto) 1.45 K/uL (1.2-3.4); Mean Corpuscular Hemoglobin 32.5 pg (25.0-34.0); Mean Corpuscular Hgb Conc 32.7 g/dL (32.0-36.0); Mean Corpuscular Volume 99.4 fL (80.0-100.0); Mean Platelet Volume 10.3 fL (9.4-12.3); Monocytes # (auto) 0.83 K/uL (0.24-0.82); Monocytes % (auto) 7.4 %; Neutrophils # (auto) 8.81 K/uL (1.4-6.5); Neutrophils % (auto) 78.8 %; Platelet Count 214 K/uL (130-400); RDW Coefficient of Variation 14.9 % (11.5-14.5); RDW Standard Deviation 54.6 fL (36.4-46.3); White Blood Count 11.18 K/ul (4.8-10.8)
--- NOTE | 2022-08-19 10:23 | XRay Report ---
XR chest 1V portable CLINICAL HISTORY: Sepsis TECHNIQUE: Single frontal radiograph of the chest was obtained. Comparison: Comparison is made to chest radiograph 11/15/2021 FINDINGS: No lines and tubes are seen. Cardiomegaly is noted. There is prominence and cephalization of the vasc ulature with Frantz B lines seen. No evidence of pleural effusion or pneumothorax. IMPRESSION: Moderate pulmonary edema. Stable cardiomegaly. ACT 112: Negative or not required by law. Electronically signed by: Simba Mcclain M.D. 08/19/2022 10:22 AM
[2022-08-19 10:46] LABS: Albumin Level 3.7 gm/dl (3.4-5.0); BUN Creatinine Ratio 23.5 (10-20); Bilirubin Direct 0.2 mg/dl (0-0.2); Bilirubin,Total 0.7 mg/dl (0.2-1.0); Calcium 9.1 mg/dl (8.5-10.1); Creatinine Clr Calc Pharmacy 45.3 ml/min; Est GFR (African American) 56.6 ml/min; Est GFR (Non-African American) 48.9 ml/min; Potassium 3.9 mmol/L (3.5-5.1)
[2022-08-19 10:57] LABS: Troponin I High Sensitivity 118.5 pg/ml (0-14)
[2022-08-19 11:02] LABS: Adenovirus PCR Not Detected (NotDetected); Bordetella parapertussis PCR Not Detected (NotDetected); Bordetella pertussis PCR Not Detected (NotDetected); Chlamydia pneumoniae PCR Not Detected (NotDetected); Coronavirus 229E PCR Not Detected (NotDetected); Coronavirus CoV-2 (COVID19)PCR Not Detected (NotDetected); Coronavirus HKU1 PCR Not Detected (NotDetected); Coronavirus NL63 PCR Not Detected (NotDetected); Coronavirus OC43PCR Not Detected (NotDetected); Human Metapneumovirus PCR Not Detected (NotDetected); Influenza A PCR Not Detected (NotDetected); Influenza B PCR Not Detected (NotDetected); Mycoplasma pneumoniae PCR Not Detected (NotDetected); Parainfluenza Virus 1 PCR Not Detected (NotDetected); Parainfluenza Virus 2 PCR Not Detected (NotDetected); Parainfluenza Virus 3 PCR Not Detected (NotDetected); Parainfluenza Virus 4 PCR Not Detected (NotDetected); Respiratory Syncytial VirusPCR Not Detected (NotDetected); Rhinovirus/Enterovirus PCR Not Detected (NotDetected)
--- NOTE | 2022-08-19 11:03 | Emergency Department Note ---
History of Present Illness General Chief complaint: Shortness of Breath/Dyspnea Time Seen by Provider: 08/19/22 09:54 Source: patient Mode of arrival: ambulatory Limitations: no limitations History of Present Illness This patient is a 67-year-old female who comes in after having shortness of breath. She has been sick for about 2 weeks she has had a cough. She does have a history of COPD and does continue to smoke. She also history of adrenal insufficiency and they have increased her steroids for stress dose. She was started on antibiotic and finished a week ago. No chest pain or palpitations although the nurse was concerned because her EKG showed what appeared to be atrial fibrillation. The patient denies nausea or vomiting. No definite fever. Her coughs are mostly dry. She did receive 2 albuterol Atrovent nebs on route and had to buy her inhaler prior to arrival. She has chronic lower extremity edema which is unchanged Home Medications Medication Instructions Recorded Confirmed Type naloxone 4 mg/actuation nasal 4 mg intranasal DIRECTED PRN 06/13/21 08/19/22 History spray (Narcan) OVERSEDATION diclofenac sodium 1 % topical gel 4 g EXT QID #100 grams 11/18/21 08/19/22 Rx (Voltaren Arthritis Pain) aspirin 81 mg tablet,delayed 81 mg PO QAM #90 tabs 02/06/22 08/19/22 Rx release (Rocio Low Dose Aspirin) ondansetron 4 mg disintegrating 4 mg PO Q6H PRN NAUSEA/VOMITING 02/06/22 08/19/22 Rx tablet #20 tabs furosemide 20 mg tablet 20 mg PO DAILY PRN edema #30 tabs 05/15/22 08/19/22 Rx albuterol sulfate 90 mcg/actuation 2 inh inhalation DAILY #18 grams 05/24/22 08/19/22 Rx aerosol inhaler (ProAir HFA) hydrocortisone 20 mg tablet 40 mg PO BID PRN see specific 05/24/22 08/19/22 Rx directions #90 tabs ipratropium 20 mcg-albuterol 100 1 puff inhalation QID #4 grams 05/24/22 08/19/22 Rx mcg/actuation mist for inhalation (Combivent Respimat) Advair Diskus 250 mcg-50 mcg/dose 1 inh inhalation BID #60 ea 05/25/22 08/19/22 Rx powder for inhalation (fluticasone propion-salmeterol) famotidine 20 mg tablet 20 mg PO BID #90 tabs 07/13/22 08/19/22 Rx oxycodone 10 mg tablet 10 mg PO Q6H PRN pain #180 tabs 07/13/22 08/19/22 Rx albuterol sulfate 2.5 mg/3 mL 2.5 mg (3 mL) inhalation Q6H #90 mL 08/02/22 08/19/22 Rx (0.083 %) solution for nebulization ipratropium 0.5 mg-albuterol 3 mg 3 ml inhalation Q6H PRN wheezing 08/02/22 08/19/22 Rx (2.5 mg base)/3 mL nebulization #90 mL soln pantoprazole 40 mg tablet,delayed 40 mg PO BID #90 tabs 08/10/22 08/19/22 Rx release hydrocortisone 20 mg tablet 20 mg PO DAILY 08/19/22 08/19/22 History sennosides 8.6 mg tablet (Senokot) 8.6 mg PO BID 08/19/22 08/19/22 History Allergies Allergy/AdvReac Type Severity Reaction Status Date / Time No Known Allergies Allergy Verified 08/02/22 13:08 Past Med/Surg History Medical History Acute renal failure Asthma PT STATES TAKES RESCUE INHALER DAILY Carotid stenosis, left S/P L CEA (02/18/20) (Prior to CEA patient had 80% LICA stenosis ) Cerebral aneurysm Per records, pt unaware No significant aneurysm noted with head CTA and brain MRI from 01/2020 CKD (chronic kidney disease) stage III COPD (chronic obstructive pulmonary disease) CVA (cerebral vascular accident) CVA 02/11/20- no residual effects, follows with [facility], patient was on plavix until ~1 month after left CEA surgery, now on ASA 81mg Depression with anxiety GERD (gastroesophageal reflux disease) History of Meniere's disease History of prediabetes HGBA1C 6.1% on 01/28/21 History of revision of total replacement of right hip joint 03/25/21 - [facility]; explantation old hardware, wound vac placement. History of septic shock 03/2021 - due to septic R hip; 04/2021 - again due to septic R hip - hospit alized [facility] each admission. Pseudomonas, proteus, oj albicans. Hyperlipidemia Hypertension Osteoarthritis Pulmonary emboli Surgical History H/O carotid endarterectomy Left CEA: 02/18/20: Grade view 1 with head lift, MAC#3, ETT 7.0 at [facility] History of appendectomy History of bilateral tubal ligation History of brain surgery 5 years ago ([facility]) History of History of cataract surgery R/L History of section x1 History of cholecystectomy History of cholecystectomy History of colonoscopy History of esophagogastroduodenoscopy (EGD) History of incision and drainage right hip - multiple I/D's, 03/2021-04/2021; [facility]. History of tonsillectomy History of tooth extraction History of total hip arthroplasty RT> with repair S/P carotid endarterectomy Status post revision of total hip replacement (~01/2021) Family History Mother Diabetes Family history of diabetes mellitus Sister Diabetes Family history of diabetes mellitus Arterial thrombosis Amputation of leg Father Heart disease Lung disease Other No family history of adverse response to anesthesia Denies family history of Ovarian cancer Prostate cancer Myocardial infarction Breast cancer Colorectal cancer Social History Smoking Status: Current some day smoker Tobacco Type: Cigarettes Age Started Using Tobacco: 17; Age Quit Using Tobacco: 65; packs per day: 1; Years Smoked: 55; Second Hand Exposure: Yes; Do You Dip or Chew Tobacco: No; Hx Alcohol Use: No Hx Substance Use: Yes Last Used Substance: Days (ago) Last Used Substance Other:: 08/31/2021 Substance Use Type Other:: daily use Preferred Language: Ugandan Communication Ability: Effective Visual Impairment: No Limitations Hearing Ability: Normal Meat Cooler Required: No Beliefs That Will Affect Care: None marital status: Current Living Situation: Alone Current Living Situation Comment: Son staying with mother current occupational status: retired 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 How many Children do You have: 2 How many Children do You have Comment: 1 child from suicide Other Information That Helps Us Care for You: No Feels Safe at Home: Yes Safety Concerns: Feels Safe At This Time Childhood Exposure to Second-Hand Smoke: Yes Dental Care, Regularly: No Physical Activity Frequency: Does not Exercise Seatbelt Use: always Sunscreen Use: No Assistive Devices: Glasses, Nebulizer, Walker and Wheelchair Review of Systems A total of 10 systems reviewed and were otherwise negative Physical Exam Vital Signs Vital Signs - 24 hr 08/19/22 09:45 08/19/22 09:45 08/19/22 09:45 Temperature 36.8 C Temperature Source Oral Pulse Rate 114 H 114 H Pulse Rate from SpO2 Sensor Pulse Rhythm Irregular Respiratory Rate 20 20 Respiratory Effort / Characteristics Spontaneous Labored Short of Breath SOB on Exertion Spontaneous Labored Short of Breath SOB on Exertion Respiratory Depth Shallow Shallow Respiratory Pattern Tachypnea Tachypnea Blood Pressure 120/104 H Blood Pressure Mean 109 Blood Pressure Position Semi-fowlers Pulse Oximetry 98 98 Oxygen Delivery Method Room Air Room Air Room Air Sepsis Recent Fever Within 48 Hours No Sepsis New/Unexplained Change in Mental Status N/A Sepsis Action Taken by Nursing No Action Required 08/19/22 09:45 08/19/22 09:52 08/19/22 09:52 Temperature Temperature Source Pulse Rate 109 H Pulse Rate from SpO2 Sensor Pulse Rhythm Respiratory Rate 18 Respiratory Effort / Characteristics Respiratory Depth Respiratory Pattern Blood Pressure 120/104 H Blood Pressure Mean 109 Blood Pressure Position Pulse Oximetry Oxygen Delivery Method Room Air Sepsis Recent Fever Within 48 Hours Sepsis New/Unexplained Change in Mental Status Sepsis Action Taken by Nursing 08/19/22 10:00 08/19/22 10:01 08/19/22 10:01 Temperature Temperature Source Pulse Rate 136 H 117 H Pulse Rate from SpO2 Sensor 109 H 109 H Pulse Rhythm Respiratory Rate 29 H 22 Respiratory Effort / Characteristics Respiratory Depth Respiratory Pattern Blood Pressure 163/106 H Blood Pressure Mean 125 Blood Pressure Position Pulse Oximetry 96 96 Oxygen Delivery Method Room Air Room Air Sepsis Recent Fever Within 48 Hours Sepsis New/Unexplained Change in Mental Status Sepsis Action Taken by Nursing 08/19/22 10:30 08/19/22 10:30 08/19/22 11:00 Temperature Temperature Source Pulse Rate 102 H Pulse Rate from SpO2 Sensor 108 H Pulse Rhythm Respiratory Rate 20 Respiratory Effort / Characteristics Respiratory Depth Respiratory Pattern Blood Pressure 160/102 H 143/87 H Blood Pressure Mean 121 105 Blood Pressure Position Pulse Oximetry 96 Oxygen Delivery Method Room Air Sepsis Recent Fever Within 48 Hours Sepsis New/Unexplained Change in Mental Status Sepsis Action Taken by Nursing 08/19/22 11:00 Temperature Temperature Source Pulse Rate 114 H Pulse Rate from SpO2 Sensor 113 H Pulse Rhythm Respiratory Rate 15 Respiratory Effort / Characteristics Respiratory Depth Respiratory Pattern Blood Pressure Blood Pressure Mean Blood Pressure Position Pulse Oximetry 100 Oxygen Delivery Method Room Air Sepsis Recent Fever Within 48 Hours Sepsis New/Unexplained Change in Mental Status Sepsis Action Taken by Nursing General: Well developed well nourished older female who has a dry hacking cough but in no acute distress, breathing comfortably on room air. Normal speech HEENT: Normal cephalic atraumatic. Pupils are equal round and reactive to light. Extraocular movements are intact. Oropharynx is pink with moist mucous membranes. No swelling of the mouth lips or tongue. Neck: Supple with a midline trachea. No meningeal signs or stiffness, no JVD or bruits. No Stridor. Chest: Clear to auscultation bilaterally. No wheezes or rhonchi. No increased work of breathing. Heart: Regular rate and rhythm without murmurs or gallops. Abdomen: Soft nontender, nondistended without rebound guarding or rigidity. Extremities: No cyanosis clubbing. Chronic bilateral lower extremity edema. No redness or warmth no calf tenderness or assymetry Spine/Back. Non tender to palpation. No CVA tenderness Skin: Good turgor without rashes. Neurologic exam: Cranial nerves two through 12 are intact. Motor and sensation are intact and symmetrical throughout. Course Administered Medications Furosemide (Furosemide Inj 20 Mg/2 Ml Vial) 20 mg IV [id number] [facility] Stop: 09/18/22 12:44 Last Admin: 08/19/22 14:30 Dose: 20 mg Documented By: LIZY Nicotine (Nicotine 21 Mg/24 Hr Tdsy) 21 mg TD QAM [facility] Stop: 09/18/22 13:14 Last Admin: 08/19/22 14:29 Dose: 21 mg Documented By: LIZY Discontinued Medications Albuterol (Albut/Ipratrop 3mg/0.5mg Neb 3 Ml Vial) 3 ml NEB NOW STA; Protocol Stop: 08/19/22 10:01 Last Admin: 08/19/22 10:43 Dose: 3 ml Documented By: NMS Heparin Sodium (Porcine) (Heparin Sod (Porcine) 1000 Unit/Ml) 5,000 units IV NOW ONE Stop: 08/19/22 14:16 Last Admin: 08/19/22 14:46 Dose: Not Given Documented By: LIZY Hydrocortisone Sodium Succinate (Hydrocortisone Sod Succinate 100 Mg/2 Ml Vial) 100 mg IV NOW STA Stop: 08/19/22 10:01 Last Admin: 08/19/22 10:43 Dose: 100 mg Documented By: MAYTE Heparin Sodium/Dextrose (Heparin Sodium/Dextrose) 25,000 units in 500 mls @ 22 mls/hr IV .[id number] [facility]; Protocol Stop: 09/18/22 13:14 Last Admin: 08/19/22 14:36 Dose: Not Given Documented By: LIZY Influenza Virus Vaccine (Influenza Vaccine High Dose Pf 65+ 0.7 Ml Syr) 0.7 ml IM .ONCE ONE Stop: 08/19/22 14:10 Last Admin: 08/19/22 14:36 Dose: Not Given Documented By: LIZY Medical Decision Making Differential Diagnosis COPD, pneumonia, sepsis, arrhythmia, acute coronary syndrome, CHF, PE Medical Records Attestation: I reviewed the patient's medical records. Home Medications Current Medication List: was personally reviewed by me Laboratory Data Attestation: I reviewed the patient's lab results. Result diagrams: 08/19/22 13:16 08/19/22 10:00 Lab Results 08/19/22 08/19/22 08/19/22 Range/Units 10:00 10:00 10:00 WBC 11.18 H (4.8-10.8) K/ul RBC 3.60 L (3.93-5.22) M/uL Hgb 11.7 L (12.0-16.0) g/dl Hct 35.8 (34.1-44.9) % MCV 99.4 (80.0-100.0) fL MCH 32.5 (25.0-34.0) pg MCHC 32.7 (32.0-36.0) g/dL RDW Std Deviation 54.6 H (36.4-46.3) fL RDW Coeff of Crow 14.9 H (11.5-14.5) % Plt Count 214 (130-400) K/uL MPV 10.3 (9.4-12.3) fL Immature Gran % (Auto) 0.7 % Neut % (Auto) 78.8 % Lymph % (Auto) 13.0 % Whitman % (Auto) 7.4 % Eos % (Auto) 0.0 % Baso % (Auto) 0.1 % Neut # (Auto) 8.81 H (1.4-6.5) K/uL Lymph # (Auto) 1.45 (1.2-3.4) K/uL Whitman # (Auto) 0.83 H (0.24-0.82) K/uL Eos # (Auto) 0.00 (0-0.50) K/uL Baso # (Auto) 0.01 (0-0.2) K/uL Immature Gran # (Auto) 0.08 H (0.00-0.02) K/uL Sodium 146 H (136-145) mmol/L Potassium 3.9 (3.5-5.1) mmol/L Chloride 107 (98-107) mmol/L Carbon Dioxide 32 (21-32) mmol/L Anion Gap 7 (3-11) BUN 27 H (6-23) mg/dl Creatinine 1.15 (0.6-1.2) mg/dl Est Cr Clr Drug Dosing 45.3 ml/min Est GFR ( Amer) 56.6 ml/min Est GFR (Non-Af Amer) 48.9 ml/min BUN/Creatinine Ratio 23.5 H (10-20) Glucose 151 H (70-99(Fasting)) mg/dl Lactate (0.4-2.0) mmol/L Calcium 9.1 (8.5-10.1) mg/dl Magnesium 2.0 (1.7-2.4) mg/dl Total Bilirubin 0.7 (0.2-1.0) mg/dl Direct Bilirubin 0.2 (0-0.2) mg/dl AST 24 (13-39) U/L ALT 51 (7-52) U/L Alkaline Phosphatase 71 (34-104) U/L Troponin I High Sens 118.5 H* (0-14) pg/ml B-Natriuretic Peptide (0-100) pg/ml Total Protein 6.0 (6.0-8.3) gm/dl Albumin 3.7 (3.4-5.0) gm/dl Procalcitonin 0.17 (0-0.5) ng/ml Adenovirus (PCR) (NotDetected) B. pertussis DNA (PCR) (NotDetected) B.parapertussis DNA PCR (NotDetected) C. pneumoniae DNA (PCR) (NotDetected) Coronavirus OC43 (PCR) (NotDetected) Coronavirus HKU1 (PCR) (NotDetected) Coronavirus 229E (PCR) (NotDetected) SARS-CoV-2 (PCR) (NotDetected) Coronavirus NL63 (PCR) (NotDetected) Human Metapneumovir PCR (NotDetected) Influenza Type A (PCR) (NotDetected) Influenza Type B (PCR) (NotDetected) M. pneumoniae (PCR) (NotDetected) Parainfluenza 1 (PCR) (NotDetected) Parainfluenza 2 (PCR) (NotDetected) Parainfluenza 3 (PCR) (NotDetected) Parainfluenza 4 (PCR) (NotDetected) RSV (PCR) (NotDetected) Entero/Rhino (PCR) (NotDetected) 08/19/22 08/19/22 08/19/22 Range/Units 10:00 10:24 10:29 WBC (4.8-10.8) K/ul RBC (3.93-5.22) M/uL Hgb (12.0-16.0) g/dl Hct (34.1-44.9) % MCV (80.0-100.0) fL MCH (25.0-34.0) pg MCHC (32.0-36.0) g/dL RDW Std Deviation (36.4-46.3) fL RDW Coeff of Crow (11.5-14.5) % Plt Count (130-400) K/uL MPV (9.4-12.3) fL Immature Gran % (Auto) % Neut % (Auto) % Lymph % (Auto) % Whitman % (Auto) % Eos % (Auto) % Baso % (Auto) % Neut # (Auto) (1.4-6.5) K/uL Lymph # (Auto) (1.2-3.4) K/uL Whitman # (Auto) (0.24-0.82) K/uL Eos # (Auto) (0-0.50) K/uL Baso # (Auto) (0-0.2) K/uL Immature Gran # (Auto) (0.00-0.02) K/uL Sodium (136-145) mmol/L Potassium (3.5-5.1) mmol/L Chloride (98-107) mmol/L Carbon Dioxide (21-32) mmol/L Anion Gap (3-11) BUN (6-23) mg/dl Creatinine (0.6-1.2) mg/dl Est Cr Clr Drug Dosing ml/min Est GFR ( Amer) ml/min Est GFR (Non-Af Amer) ml/min BUN/Creatinine Ratio (10-20) Glucose (70-99(Fasting)) mg/dl Lactate 1.7 (0.4-2.0) mmol/L Calcium (8.5-10.1) mg/dl Magnesium (1.7-2.4) mg/dl Total Bilirubin (0.2-1.0) mg/dl Direct Bilirubin (0-0.2) mg/dl AST (13-39) U/L ALT (7-52) U/L Alkaline Phosphatase (34-104) U/L Troponin I High Sens (0-14) pg/ml B-Natriuretic Peptide 2100 H (0-100) pg/ml Total Protein (6.0-8.3) gm/dl Albumin (3.4-5.0) gm/dl Procalcitonin (0-0.5) ng/ml Adenovirus (PCR) Not Detected (NotDetected) B. pertussis DNA (PCR) Not Detected (NotDetected) B.parapertussis DNA PCR Not Detected (NotDetected) C. pneumoniae DNA (PCR) Not Detected (NotDetected) Coronavirus OC43 (PCR) Not Detected (NotDetected) Coronavirus HKU1 (PCR) Not Detected (NotDetected) Coronavirus 229E (PCR) Not Detected (NotDetected) SARS-CoV-2 (PCR) Not Detected (NotDetected) Coronavirus NL63 (PCR) Not Detected (NotDetected) Human Metapneumovir PCR Not Detected (NotDetected) Influenza Type A (PCR) Not Detected (NotDetected) Influenza Type B (PCR) Not Detected (NotDetected) M. pneumoniae (PCR) Not Detected (NotDetected) Parainfluenza 1 (PCR) Not Detected (NotDetected) Parainfluenza 2 (PCR) Not Detected (NotDetected) Parainfluenza 3 (PCR) Not Detected (NotDetected) Parainfluenza 4 (PCR) Not Detected (NotDetected) RSV (PCR) Not Detected (NotDetected) Entero/Rhino (PCR) Not Detected (NotDetected) Imaging Data Attestation: I personally reviewed and interpreted this imaging study as follows: My Impression: Chest x-raythere is some increased interstitial markings and may have some pulmonary edema Radiologist's Impression: Chest X-Ray 08/19/22 10:00 XR chest 1V portable CLINICAL HISTORY: Sepsis TECHNIQUE: Single frontal radiograph of the chest was obtained. Comparison: Comparison is made to chest radiograph 11/15/2021 FINDINGS: No lines and tubes are seen. Cardiomegaly is noted. There is prominence and cephalization of the vasculature with Frantz B lines seen. No evidence of pleural effusion or pneumothorax. IMPRESSION: Moderate pulmonary edema. Stable cardiomegaly. ACT 112: Negative or not required by law. Electronically signed by: Sibma Mcclain M.D. 08/19/2022 10:22 AM ECG Data Attestation: I personally reviewed and interpreted this ECG as follows: Indication: + SOB/dyspnea Rate (beats per minute): 109 Rhythm: + atrial fibrillation ECG Intervals/blocks: + Right Bundle branch block and + Normal QT ECG [place]: + Normal ECG ST segments: + Nonspecific ST abnormalities ECG Findings: no PVCs Comparison ECG Date: from (11/15/2001) Change: the following changes noted (A. fib has replaced ectopic atrial rhythm) MDM Narrative This patient comes in with a chief complaint of shortness of breath. she has multiple medical problem. she has COPD she seem to getting better with nebs. she was little bit tachycardic and may have some A. fib some of this may be related to her inhaler use. She is adrenal insufficient as well. In light of this, I did give her Solu-Cortef 100 mg IV. Her lungs have scattered wheezes but mostly distant breath sounds. She was given additional albuterol Atrovent neb. Multiple blood testing was obtained. She was reassessed frequently. Her troponin is elevated at over 100. She has no chest pain. Chest x-ray suggests potentially some CHF. She was feeling much better after single albuterol neb. I do think she has a degree of fluid overload potentially as well. BNP is elevated. Her troponin was elevated. Her EKG does not show any ischemic changes but she does have A. fib. I do think she needs to be admitted for further cardiac work-up and evaluation. COVID testing was negative. I did consult the [facility] hospitalist to see in ER for these measures. Continuous cardiac monitoring: An order was placed in EMR for continuous cardiac monitoring. Upon my interpretation, the patient noted to be in rapid A. fib with a rate of 105. Impression & Plan SOB (shortness of breath), Elevated troponin, COPD exacerbation, Lab test negative for COVID-19 virus, Atrial fibrillation, CHF (congestive heart failure) Discharge Plan Visit Data Chief Complaint: Shortness of Breath/Dyspnea ED Provider: John Nam Discharge Problem: SOB (shortness of breath), Elevated troponin, COPD exacerbation, Lab test negative for COVID-19 virus, Atrial fibrillation, CHF (congestive heart failure) Patient Disposition: Admitted As Inpatient Discharge Instructions Interventions: ED Discharge Assessment Last Done: 08/19/22 14:16 : Atrial fibrillation Qualifiers: Atrial fibrillation type: unspecified Qualified Code(s): I48.91 - Unspecified atrial fibrillation CHF (congestive heart failure) Qualifiers: Heart failure type: unspecified Heart failure chronicity: acute on chronic Qualified Code(s): I50.9 - Heart failure, unspecified
--- NOTE | 2022-08-19 11:25 | History & Physical Report ---
Date of Service August 19, 2022 Assessment & Plan (1) Atrial fibrillation with RVR: Plan: -Admit to med/tele -Patient is currently afebrile, hemodynamically stable, stable on RA, and asymptomatic -Patient does not appear to have a previous history or afib per chart review, at this time it appears that she is volume overloaded and in heart failure exacerbation with elevated JVD, pulmonary edema, BL LE swelling, and BNP of 2100. -Has noticed increased LE swelling over the last week but was not using her prescribed lasix -Patient is still tachy in the 110's but is hemodynamically stable and stable on RA -First troponin elevated at 118, BNP elevated at 2100, repeat troponin in process -Spoke to Cardiology, appreciate their help, they will see her shortly and consult is placed -For now will start IV diuresis with 20 mg IV lasix BID with first dose now -TTE and TSH ordered for continued workup -Patient is currently hemodynamically stable and stable on RA, has a history of PE and is higher risk for another. Will hold of on CTA of the chest at this time due to current BEV -Patient is high risk for stroke without history of previous major bleed, patient would like to restart anticoagulation -Will start with heparin drip and can likely transition to eliquis as she tolerated it well before -Will order PRN IV Lopressor for HR sustaining above 120 -Repeat trop in process, will continue to trend until she reaches a peak (2) CHF exacerbation: Plan: -Starting diuresis with 20 mg IV lasix BID for now -Monitor intake and output closely -Will repeat BMP and mag tonight at 6 pm to monitor renal function and electrolytes (3) Elevated troponin: Plan: -See afib RVR (4) RBBB: Plan: -See afib RVR (5) Adrenal insufficiency: Plan: -Received 100 mg IV Hydrocortisone in the ED -Continue daily stress dose steroids while admitted, will double her PO dose for now (Baseline is 20 mg PO daily) with 40 mg PO daily starting tomorrow -Currently hemodynamically stable (6) BEV (acute kidney injury): Plan: -Cr today is 1.15, baseline appears to be around 0.8 -Looks more like cardiorenal syndrome at this time as she is volume overloaded -Continue to monitor renal function while getting diuresis -Avoid nephrotoxic agents (7) COPD (chronic obstructive pulmonary disease): Plan: -Stable on RA -Will continue home breathing treatments -Will order incentive spirometry, flutter therapy and PRN antitussive -Does not appear to be in COPD exacerbation but stress dose steroids will also cover -Prn O2 ordered for SpO2 less than 88% (8) Tobacco use disorder: Plan: -Continue to stress cessation -Will order nicotine patch (9) Hypertension: Plan: -Hemodynamically stable -Not on antihypertensives -Continue to monitor (10) Hyperlipidemia: Plan: -Continue statin (11) GERD (gastroesophageal reflux disease): Plan: -Continue famotidine and protonix (12) Carotid artery stenosis: Plan: -Continue aspirin (13) Chronic cerebral ischemia: Plan: -Continue aspirin Plan The patient was discussed with Dr. Steele at the time of the admission History of Present Illness Chief Complaint: SOB Primary Care Provider: Edwin Valdez MD Radha is a 67 year old female with a PMH significant for COPD, adrenal insufficiency on daily hydrocortisone, tobacco use disorder, hypertension, hyperlipidemia, GERD, depression with anxiety, chronic cerebral ischemia due to left internal carotid stenosis, carotid artery stenosis S/P left carotid endarterectomy in February of 2020, history of brain surgery, anemia, septic arthritis of hip, history of revision of right MAXIMUS, pulm emboli, acute diastolic CHF, CKD stage IIIb, nausea and vomiting, and pressure ulcer who presented to the [facility] ED on 08/19/22 with a chief complaint of SOB. In the ED the patient was found to be afebrile. hemodynamically stable, stable on RA, but tachycardic in the 110's. ECG was showing "Atrial fibrillation with rapid ventricular response Right bundle branch block Abnormal ECG When compared with ECG of 15-NOV-2021 13:02, Atrial fibrillation has replaced Ectopic atrial rhythm Right bundle branch block is now Present". Labs were significant for a leukocytosis of 11.18 with left shift of 8.81, stable Hgb, sodium of 146, potassium of 3.9, mag of 2.0, cr of 1.15 (baseline appears to be closer to 0.8), normal liver function, high sensitivity troponin of 118.5, BNP of 2100, procal of 0.17, and negative viral biofire. Chest xray was showing stable cardiomegaly with pulmonary edema. Prior to admission the patient was given DuoNebs and 100 mg IV hydrocortisone. At the time of the exam the patient was resting comfortably in bed in no acute distress. She states that she has experienced worsening chronic cough for the past 2-3 weeks. Per chart review, she was seen at her PCP's office on 08/02/22 for this complaint. At that time she was treated with a 10 day course of doxycycline, duonebs, and advised to use her stress dose of Hydrocortisone. She completed the doxycycline as prescribed but states that her cough has not improved. She states that the cough is non-productive with increased coughing frequency compared to her baseline smoker's cough. She is still smoking daily but has been unable to the past 2-3 days because her cough has been so bad. She states that this morning she woke up and felt more SOB due to her cough. She used her Nebulizer with DuoNebs and her rescue inhalers without relief. She called her Niece who then called 911. She denies recent fevers, chills, headache, changes in vision, hearing, taste, and smell, chest pain, abdominal pain, lightheadedness, dizziness, nausea, vomiting, dysuria, hematuria, diarrhea, and recent falls. She has noted increased swelling in her lower extremities over the past week. She currently has her CORINE stockings on to help with the swelling. She is wheelchair bound due to her previous septic arthritis of the right hip. She again denies chest pain or discomfort of any kind and states that her breathing and cough are improved after receiving the DuoNeb earlier in the ED. When asked if she has been using her lasix prescription for swelling she states she has not been. She states that she was told to only use it a few times a week if she has swelling but she had not taken it this week yet. I explained that she was found to be in afib RVR and it does not appear that she has a history of Afib. She confirmed that she has never been told she has afib. She confirmed that she was treated with eliquis last year for PE but was taken off of it after successful treatment. I reviewed prior PCP clinic notes over the past year. From the note on 02/13/22 it was explained that she was to co ntinue her Eliquis despite completing 6 months of therapy for PE as she has decreased mobility with her previous right hip issues. It was noted at that time that she has a family history of MTHFR mutation but she is unsure if she has it herself. It was also noted that she has a history of anemia and guiac + stool, was recommended to get a colonoscopy but it does not appear that she ever had one. As of her PCP visit on 05/15/22 it was noted that she was still on Eliquis. As of her PCP visit on 08/02/22 it was noted that she was no longer taking Eliquis, unfortunately it does not give a reason why she stopped. I spoke to her regarding the increased risk of stroke with afib, I explained that her [id number] VASc score was high at 7, giving her an 11.3% risk of stroke per year. I also explained that her HAS-BLED score is 4, giving her a high risk of major bleeding. She confirmed that she has never had major bleeding in the past such as hemorrhagic stroke or large GI bleed. We discussed the risks and benefits of holding and starting anticoagulation, the patient elected to start anticoagulation at this time. I discussed code status with the patient, at this time she is a conditional code. She does NOT want CPR but would want a trial of intubation and defibrillation if needed. Her son, Sekou Moon ([phone]) would make decisions for her if she could not make them herself. PLease refer to Dr. Steele's attestation for any changes to the treatment plan Allergies Allergy/AdvReac Type Severity Reaction Status Date / Time No Known Allergies Allergy Verified 08/02/22 13:08 Home Medications Medication Instructions Recorded Confirmed Type naloxone 4 mg/actuation nasal 4 mg intranasal DIRECTED PRN 06/13/21 08/22/22 History spray (Narcan) OVERSEDATION diclofenac sodium 1 % topical gel 4 g EXT QID #100 grams 11/18/21 08/22/22 Rx (Voltaren Arthritis Pain) aspirin 81 mg tablet,delayed 81 mg PO QAM #90 tabs 02/06/22 08/22/22 Rx release (Rocio Low Dose Aspirin) ondansetron 4 mg disintegrating 4 mg PO Q6H PRN NAUSEA/VOMITING 02/06/22 08/22/22 Rx tablet #20 tabs furosemide 20 mg tablet 20 mg PO DAILY PRN edema #30 tabs 05/15/22 08/22/22 Rx albuterol sulfate 90 mcg/actuation 2 inh inhalation DAILY #18 grams 05/24/22 08/22/22 Rx aerosol inhaler (ProAir HFA) hydrocortisone 20 mg tablet 40 mg PO BID PRN see specific 05/24/22 08/22/22 Rx directions #90 tabs ipratropium 20 mcg-albuterol 100 1 puff inhalation QID #4 grams 05/24/22 08/22/22 Rx mcg/actuation mist for inhalation (Combivent Respimat) Advair Diskus 250 mcg-50 mcg/dose 1 inh inhalation BID #60 ea 05/25/22 08/22/22 Rx powder for inhalation (fluticasone propion-salmeterol) famotidine 20 mg tablet 20 mg PO BID #90 tabs 07/13/22 08/22/22 Rx albuterol sulfate 2.5 mg/3 mL 2.5 mg (3 mL) inhalation Q6H #90 mL 08/02/22 08/22/22 Rx (0.083 %) solution for nebulization ipratropium 0.5 mg-albuterol 3 mg 3 ml inhalation Q6H PRN wheezing 08/02/22 08/22/22 Rx (2.5 mg base)/3 mL nebulization #90 mL soln pantoprazole 40 mg tablet,delayed 40 mg PO BID #90 tabs 08/10/22 08/22/22 Rx release hydrocortisone 20 mg tablet 20 mg PO DAILY 08/19/22 08/22/22 History sennosides 8.6 mg tablet (Senokot) 8.6 mg PO BID 08/19/22 08/22/22 History apixaban 5 mg tablet (Eliquis) 5 mg PO BID 30 days #60 tabs 08/21/22 08/22/22 Rx metoprolol succinate 25 mg 25 mg PO DAILY 30 days #30 tabs 08/21/22 08/22/22 Rx tablet,extended release 24 hr (Toprol XL) oxycodone 10 mg tablet 10 mg PO Q6H PRN pain #180 tabs 08/23/22 Rx Past Med/Surg History Medical History Acute renal failure Asthma PT STATES TAKES RESCUE INHALER DAILY Carotid stenosis, left S/P L CEA (02/18/20) (Prior to CEA patient had 80% LICA stenosis ) Cerebral aneurysm Per records, pt unaware No significant aneurysm noted with head CTA and brain MRI from 01/2020 CKD (chronic kidney disease) stage III COPD (chronic obstructive pulmonary disease) CVA (cerebral vascular accident) CVA 02/11/20- no residual effects, follows with [place] neurology, patient was on plavix until ~1 month after left CEA surgery, now on ASA 81mg Depression with anxiety GERD (gastroesophageal reflux disease) History of Meniere's disease History of prediabetes HGBA1C 6.1% on 01/28/21 History of revision of total replacement of right hip joint 03/25/21 - [facility]; explantation old hardware, wound vac placement. History of septic shock 03/2021 - due to septic R hip; 04/2021 - again due to septic R hip - hospitalized [facility] each admission. Pseudomonas, proteus, oj albicans. Hyperlipidemia Hypertension Osteoarthritis Pulmonary emboli Surgical History H/O carotid endarterectomy Left CEA: 02/18/20: Grade view 1 with head lift, MAC#3, ETT 7.0 at [facility] History of appendectomy History of bilateral tubal ligation History of brain surgery 5 years ago (Meniere's treatment/[facility]) History of History of cataract surgery R/L History of section x1 History of cholecystectomy History of cholecystectomy History of colonoscopy History of esophagogastroduodenoscopy (EGD) History of incision and drainage right hip - multiple I/D's, 03/2021-04/2021; [facility]. History of tonsillectomy History of tooth extraction History of total hip arthroplasty RT> with repair S/P carotid endarterectomy Status post revision of total hip replacement (~01/2021) Family History Mother Diabetes Family history of diabetes mellitus Sister Diabetes Family history of diabetes mellitus Arterial thrombosis Amputation of leg Father Heart disease Lung disease Other No family history of adverse response to anesthesia Denies family history of Ovarian cancer Prostate cancer Myocardial infarction Breast cancer Colorectal cancer Social History Smoking Status: Current some day smoker Tobacco Type: Cigarettes Age Started Using Tobacco: 17; Age Quit Using Tobacco: 65; packs per day: 1; Second Hand Exposure: Yes; Hx Alcohol Use: No Hx Substance Use: Yes Last Used Substance: Days (ago) Last Used Substance Other :: 08/31/2021 Substance Use Type Other:: daily use Preferred Language: Serbian Communication Ability: Effective Visual Impairment: No Limitations Hearing Ability: Normal Fitness Services Manager Required: No Beliefs That Will Affect Care: None marital status: Unknown Current Living Situation: Alone Current Living Situation Comment: Son staying with mother current occupational status: retired 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 All systems have been reviewed and are otherwise negative. Physical Exam Physical Exam: Physical Exam: General: In no acute distress, stated age, chronically ill-appearing, non- toxic appearing HEENT: Normocephalic, atraumatic, no scleral icterus, pupils around round, symmetrical, and reactive to light, dry mucus membranes, + JVD, trachea midline, no thyromegaly Chest/Pulm: No respiratory distress, symmetrical chest expansion, decreased breath sounds throughout Cardiac: Irregular rate and rhythm, no murmurs noted Abdomen: Negative for ascites and bruising, normoactive bowel sounds, soft, non-tender to palpation throughout Musculoskeletal: Symmetrical and without signs of acute trauma, upper and lower extremities with full ROM, no atrophy, spasticity, or flaccidity Extremities: Radial, dorsalis pedis, and posterior tibial pulses are intact and symmetrical, +1-2 edema noted in the BL LE's after inspecting with her CORINE's removed Skin: Warm, dry, no rashes , signs of old bruises noted on the BL UE's Neuro: Alert and oriented to person, place, month, year, and president, no focal defects, CN II-XII tested and intact, finger to nose test negative, no tremors noted Psych: No acute distress, calm and cooperative during the exam Results & Data Results & Data ([facility]) Vital Signs (Past 12 Hours) Vital Signs Temp Pulse Resp BP Pulse Ox O2 Del Method 08/19/22 09:45 Room Air 08/19/22 09:45 36.8 C 114 H 20 120/104 H 98 Room Air 08/19/22 09:45 Room Air 08/19/22 09:45 114 H 20 98 Room Air Laboratory Results Abnormal lab results 08/19/22 08/19/22 08/19/22 Range/Units 10:00 10:00 10:29 WBC 11.18 H (4.8-10.8) K/ul RBC 3.60 L (3.93-5.22) M/uL Hgb 11.7 L (12.0-16.0) g/dl RDW Std Deviation 54.6 H (36.4-46.3) fL RDW Coeff of Crow 14.9 H (11.5-14.5) % Neut # (Auto) 8.81 H (1.4-6.5) K/uL [place] # (Auto) 0.83 H (0.24-0.82) K/uL Immature Gran # (Auto) 0.08 H (0.00-0.02) K/uL Sodium 146 H (136-145) mmol/L BUN 27 H (6-23) mg/dl BUN/Creatinine Ratio 23.5 H (10-20) Glucose 151 H (70-99(Fasting)) mg/dl Troponin I High Sens 118.5 H* (0-14) pg/ml B-Natriuretic Peptide 2100 H (0-100) pg/ml Diagnostic Findings Chest X-Ray 08/19/22 10:00 XR chest 1V portable CLINICAL HISTORY: Sepsis TECHNIQUE: Single frontal radiograph of the chest was obtained. Comparison: Comparison is made to chest radiograph 11/15/2021 FINDINGS: No lines and tubes are seen. Cardiomegaly is noted. There is prominence and cephalization of the vasculature with Frantz B lines seen. No evidence of pleural effusion or pneumothorax. IMPRESSION: Moderate pulmonary edema. Stable cardiomegaly. ACT 112: Negative or not required by law. Electronically signed by: Simba Mcclain M.D. 08/19/2022 10:22 AM ECG Additional Comments: Atrial fibrillation with rapid ventricular response Right bundle branch block Abnormal ECG When compared with ECG of 15-NOV-2021 13:02, Atrial fibrillation bacon s replaced Ectopic atrial rhythm Right bundle branch block is now Present Code Status & VTE Plan Code Status Conditional code; would want all ACLS EXCEPT CARDIAC COMPRESSIONS. WOULD WANT A TRIAL OF CPR VTE Prophylaxis Plan VTE Prophylaxis will be ordered: Yes Supervising Physician Co-Signing Physician Notes Patient seen and examined at bedside. During face to face encounter, I obtained a history and physical examination. I reviewed above note and agree with it. I discussed plan of care with patient and APC Peno. Patient admitted for A. fib and RVR. will be on heparin drip and IV lopressor. PG Care Time/CCT Total # of Minutes Spent Total Time Spent with Patient: Total time spent is greater than 50% in coordination of care (as documented) at patient's floor/unit and/or counseling patient: Coding [place] [address] Initial Inpt Care Lvl 3 Patient Type Established Medical Decision Making High Complexity Diagnoses Atrial fibrillation with RVR I48.91 CHF exacerbation I50.9 Elevated troponin R77.8 RBBB I45.10 Adrenal insufficiency E27.40 BEV (acute kidney injury) N17.9 COPD (chronic obstructive pulmonary disease) J42 COPD type: chronic bronchitis Chronic bronchitis type: unspecified Tobacco use disorder F17.200 Hypertension I10 Hyperlipidemia E78.5 GERD (gastroesophageal reflux disease) K21.9 Carotid artery stenosis I65.29 Chronic cerebral ischemia I67.82 (1) COPD (chronic obstructive pulmonary disease) COPD type: chronic bronchitis Chronic bronchitis type: unspecified Qualified Code(s): J42 - Unspecified chronic bronchitis
[2022-08-19] MEDS ORDERED: Heparin IV Adult Wt-Based Standard WITH Bolus Protocol IV SCH (12:48)
[2022-08-19] MEDS ORDERED: METOPROLOL TARTRATE 1 MG/ML VIAL IV PRN (12:51)
[2022-08-19] MEDS ORDERED: guaiFENesin SUGAR FREE 200 MG/10 ML UDC PO PRN (13:07)
[2022-08-19] MEDS ORDERED: HEPARIN SODIUM/DEXTROSE 25,000 UNITS/500 ML BAG IV SCH (13:15)
[2022-08-19 13:28] LABS: Basophils # (auto) 0.01 K/uL (0-0.2); Basophils % (auto) 0.1 %; Hematocrit (blood only) 36.8 % (34.1-44.9); Hemoglobin 11.7 g/dl (12.0-16.0); Immature Granulocytes # (auto) 0.07 K/uL (0.00-0.02); Immature Granulocytes % (auto) 0.5 %; Lymphocytes # (auto) 0.94 K/uL (1.2-3.4); Lymphocytes % (auto) 6.8 %; Mean Corpuscular Hemoglobin 32.1 pg (25.0-34.0); Mean Corpuscular Hgb Conc 31.8 g/dL (32.0-36.0); Mean Corpuscular Volume 100.8 fL (80.0-100.0); Mean Platelet Volume 10.1 fL (9.4-12.3); Monocytes # (auto) 0.88 K/uL (0.24-0.82); Monocytes % (auto) 6.3 %; Neutrophils % (auto) 86.3 %; Platelet Count 210 K/uL (130-400); RDW Coefficient of Variation 14.9 % (11.5-14.5); RDW Standard Deviation 55.2 fL (36.4-46.3); Red Blood Count 3.65 M/uL (3.93-5.22)
--- NOTE | 2022-08-19 13:32 | Electrocardiogram Report ---
Test Reason : Blood Pressure : / mmHG Vent. Rate : 109 BPM Atrial Rate : 111 BPM P-R Int : 000 ms QRS Dur : 108 ms QT Int : 358 ms P-R-T Axes : 000 -09 035 degrees QTc Int : 482 ms Sinus Tachycardia with PAC's Right bundle branch block Abnormal ECG When compared with ECG of 15-NOV-2021 13:02, Sinus tachycardia has replaced Ectopic atrial rhythm Right bundle branch block is now Present Nonspecific ST and T wave abnormality has improved Confirmed by Connor Cartwright ([id number]) on 08/19/2022 1:32:09 PM Referred By: Confirmed By:Connor Cartwright
--- NOTE | 2022-08-19 13:34 | Electrocardiogram Report ---
Test Reason : Blood Pressure : / mmHG Vent. Rate : 121 BPM Atrial Rate : 121 BPM P-R Int : 000 ms QRS Dur : 106 ms QT Int : 354 ms P-R-T Axes : 000 000 032 degrees QTc Int : 502 ms Sinus Tach with PAC's vs MAT PVC's Incomplete right bundle branch block Abnormal ECG When compared with ECG of 19-AUG-2022 09:51, (unconfirmed) No significant change was found Confirmed by Connor Cartwright ([id number] on 08/19/2022 1:34:33 PM Referred By: REFERRED SELF Confirmed By:Connor Cartwright
[2022-08-19 13:57] LABS: INR 1.1 (0.9-1.1); Partial Thromboplastin Ratio 0.8; Partial Thromboplastin Time 21.8 Seconds (21.0-31.0); Prothrombin Time 11.2 Seconds (9.0-12.0)
[2022-08-19] MEDS ORDERED: INFLUENZA VACCINE HIGH DOSE PF 65+ 0.7 ML SYR IM ONE (14:09)
[2022-08-19] MEDS ORDERED: HEPARIN SOD (PORCINE) 1000 UNIT/ML IV ONE (14:15)
[2022-08-19] MEDS ORDERED: IPRATROPIUM BROMIDE/ALBUTEROL respimat INH INH SCH (14:28)
[2022-08-19] MEDS: NICOTINE 21 MG/24 HR TDSY TD SCH (14:29)
[2022-08-19] MEDS: FUROSEMIDE INJ 20 MG/2 ML VIAL IV SCH ×2 (14:30→17:21)
[2022-08-19] MEDS ORDERED: Albuterol HFA 8 GM Inhaler (Combivent Respimat P&T Subs) INH SCH (15:00)
[2022-08-19] MEDS ORDERED: Ipratropium HFA Inhaler (Combivent Respimat P&T Subs) INH SCH (15:00)
[2022-08-19 15:11] LABS: Appearance Urine Clear (Clear); Bacteria Urine Automated Negative (Negative); Bilirubin Urine Negative (Negative); Blood Urine Negative (Negative); Cast Urine Automated 0 /lpf (0-5); Color Urine Yellow; Epithelial Cell Urine Auto >30 /lpf (0-5); Glucose Urine UA Negative (Negative); Ketones Urine Negative (Negative); Leukocyte Esterase Urine Negative (Negative); Nitrite Urine Negative (Negative); Protein Urine 1+ (Negative); RBC Urine Automated 0-4 /hpf (0-4); Specific Gravity Urine 1.023 (1.000-1.030); Urobilinogen Urine Negative (Negative)
[2022-08-19 16:30] LABS: BUN Creatinine Ratio 21.7 (10-20); Calcium 9.4 mg/dl (8.5-10.1); Creatinine Clr Calc Pharmacy 49.7 ml/min; Est GFR (African American) 56.6 ml/min; Est GFR (Non-African American) 48.9 ml/min; Potassium 3.7 mmol/L (3.5-5.1)
[2022-08-19] MEDS: ALBUTEROL 0.083% NEBU SOLN 3 ML VIAL INH SCH ×2 (19:23→23:56)
[2022-08-19] MEDS: PANTOprazole 40 MG TAB PO SCH (20:37)
[2022-08-19] MEDS: FAMOTIDINE 20 MG TAB PO SCH (20:37)
[2022-08-19] MEDS: METOPROLOL TARTRATE 25 MG TAB PO SCH (20:37)
[2022-08-19] MEDS: ACETAMINOPHEN 325 MG TAB PO PRN (20:43)
[2022-08-20] MEDS: ALBUT/IPRATROP 3MG/0.5MG NEB 3 ML VIAL INH PRN ×2 (02:16→02:43)
[2022-08-20] MEDS ORDERED: ALBUT/IPRATROP 3MG/0.5MG NEB 3 ML VIAL NEB STA (02:40)
[2022-08-20] MEDS: ACETAMINOPHEN 325 MG TAB PO PRN (03:53)
[2022-08-20] MEDS: ALBUTEROL 0.083% NEBU SOLN 3 ML VIAL INH SCH ×4 (07:25→19:48)
[2022-08-20] MEDS: HYDROCORTISONE 10 MG TAB PO SCH (07:45)
[2022-08-20] MEDS: ASPIRIN 81 MG ECTAB PO SCH (07:45)
[2022-08-20] MEDS: NICOTINE 21 MG/24 HR TDSY TD SCH (07:46)
[2022-08-20] MEDS: FUROSEMIDE INJ 20 MG/2 ML VIAL IV SCH ×2 (07:46→16:55)
[2022-08-20] MEDS: DICLOFENAC SOD 1% GEL 100 GM TUBE EXT SCH ×4 (07:46→20:01)
[2022-08-20] MEDS: FLUTICASONE/VILANTEROL 100/25MCG 14 PUFFS/INHALER INH SCH (07:47)
[2022-08-20] MEDS: METOPROLOL TARTRATE 25 MG TAB PO SCH ×2 (07:48→20:00)
[2022-08-20] MEDS: PANTOprazole 40 MG TAB PO SCH ×2 (07:48→20:01)
[2022-08-20] MEDS: FAMOTIDINE 20 MG TAB PO SCH ×2 (07:48→20:00)
--- NOTE | 2022-08-20 07:50 | Hospitalist Progress Note ---
Date of Service August 20, 2022 Assessment & Plan (1) Atrial fibrillation with RVR: (2) CHF exacerbation: (3) Elevated troponin: (4) RBBB: (5) Adrenal insufficiency: (6) BEV (acute kidney injury): (7) COPD (chronic obstructive pulmonary disease): (8) Tobacco use disorder: (9) Hypertension: (10) Hyperlipidemia: (11) GERD (gastroesophageal reflux disease): (12) Carotid artery stenosis: (13) Chronic cerebral ischemia: Plan Radha is a 67 year old female with history of COPD, diastolic CHF, prior PE, depression, tobacco use, HTN, HLD, GERD, chronic cerebral ischemia/cerebral aneurysm, carotid artery stenosis, anemia, CKD3, and pre-diabetes who presented to the emergency department for shortness of breath. ED Course: ECG w/ AFib RVR, RBBB. CXR was showing stable cardiomegaly with pulmonary edema. DuoNeb and 100 mg IV hydrocortisone. COPD Exacerbation - Acute on chronic - Patient receiving Ventolin, Combivent, and Advair at home - Patient started on incentive spirometry and flutter valve - Continue supplemental O2 PRN - Added Albuterol q2h PRN DuoNeb PRN and QID scheduled inh - Continue Fluticasone-Vilanterol daily - Added Prednisone 40 mg daily - Added Azithromycin 500 mg PO daily - Continue to encourage smoking cessation, nicotine patch ordered CHF Exacerbation - Acute on Chronic - Volume overloaded on presentation w/ dyspnea, elevated JVD, pulmonary edema, LE edema, and BNP 2100 - Not using home Lasix prior to arrival, received 20 mg IV Lasix on admission, scheduled BID - Follow I/O, currently -2885 mL - Echo: EF 40-45%, global hypokinesis of left ventricle, LV systolic function mildly reduced, elevated R atrial pressure, mod mitral regurg - Continue diuresis A Fib with RVR (paroxysmal?) - Currently hemodynamically stable w/o CP, rate controlled - No known AFib history - Tele: Patient noted to transition between NSR and AFib, last noted at 0730 - Echo ordered: Result above - Transitioned to Eliquis 5 mg PO BID from Heparin on admission ([id number] = 3, high risk of stroke) - Started Metoprolol 25 mg PO BID Elevated Troponin - Peaked at 173.6, trending down - Considered likely a/w demand ischemia Adrenal insufficiency: - Chronic, daily Hydrocortisone 20 mg PO - Received 100 mg IV Hydrocortisone in the ED - Scheduled Hydrocortisone 40 mg PO on admission BEV +/- CKD - Patient is CKD3b - Cr on presentation 1.15, baseline ~ 0.8 in January - Will continue to monitor and avoid nephrotoxins Chronic Conditions: * Hypertension - no home antihypertensive * HLD - continue home statin * GERD - continue home famotidine and protonix * Carotid artery stenosis - continue Aspirin 81 * Cerebral ischemia (chronic) - continue Aspirin 81 * Hx of Pulmonary embolism - low threshold for CTA, provoked by hip surgery 05/2021 FEN: Diet/Electrolytes Code status: Full Code DVT ppx: Eliquis (therapeutic) Isolation: COVID -, None Dispo:Med/tele CM: Admission and Anticipated Discharge Date Admission Date: August 19, 2022 Supervising Physician Co-Signing Physician Notes Patient seen and examined independently of PGY-1 Dr. Portillo. Agree with history, exam findings, assessment and plan as outlined: In brief, Ms Tello is a 67 year old female with history of COPD, tobacco use, adrenal insufficiency, HFpEF, CKD, HTN, HLD and provoked PE (May 2021) admitted with shortness of breath. Found to have pulmonary edema and afib with RVR in the emergency room. Today, reports breathing is improved compared to last night. Also notes that the swelling in her legs that was previously there is improved. VS and nursing notes reviewed. Non-toxic appearing. Heart with regular rate and rhythm. Monitor is showing NSR. Trace edema to the knee in the bilateral lower extremities. Lungs with diminished breath sounds throughout. End expiratory wheezing best heard with force exhalation. No crackles appreciated this afternoon. Labs and imaging reviewed. 1. COPD exacerbation. Wean O2. Start prednisone 40mg (previous stress dose of hydrocortisone was inadequate for COPD exacerbation). Start azithromycin. Flutter valve and incentive spirometer. Duonebs QID + q2-4hr PRN. Mucinex. Continue Breo. Of note, tobacco use listed in the chart. 2. afib with RVR. Now NSR. Perhaps will be paroxysmal or merely because of CHF and COPD exacerbation. Continue metoprolol 25mg BID. AC with Eliquis. Can consider stopping Eliquis if she is not going back and forth between afib and NSR. 3. HFrEF (previously EF was normal). New. In exacerbation. Pulmonary edema, lower extremity edema on admission. Improved with IV Lasix diuresis. -3L. Continue with diuresis. Repeat Echo here showed decreased EF to 40-45%, mild global hypokinesis. 4. elevated troponin. Secondary to demand ischemia. Troponin has peaked. 5. adrenal insufficiency. Stress dosing hydrocortisone to 40mg (s/p 100mg hydrocortisone in the ED). 6. history of HTN. No on anti-hypertensives at home. Might benefit from ARB in the future. Dispo: pending clinical improvement. Layton Garcia is a 67 year old female with history of COPD, diastolic CHF, prior PE, depression, tobacco use, HTN, HLD, GERD, chronic cerebral ischemia/cerebral aneurysm, carotid artery stenosis, anemia, CKD3, and pre-diabetes who presented to the emergency department for shortness of breath. 08/20: Patient notes this morning that she continues to experience dyspnea, but it is improved since arrival. She notes that 1 month ago she went to her PCP for similar shortness of breath, she was given and received an antibiotic and nebulizers q6h. She notes that this helped for a short period of time but her symptoms ultimately returned. Since last Sunday she has been noticing an increased amount of lower extremity swelling bilaterally. She denies any chest pain or pleuritic pain. She is not experiencing any headaches or lightheadedness. She does not that her episodes of dyspnea are causing diaphoresis. Nursing notes that overnight patient was having increased difficulty breathing w/ associated desaturations, attempts were made to provide BiPAP w/o any benefit. Review of Systems Review of Systems: As per HPI Physical Exam Physical Exam: Gen: NAD, alert, pleasant, dyspnea with short sentences HEENT: Supple, no LAD, no JVD Resp:Labored, significant expiratory wheeze, coarse-tight lung sounds CV:irregular (0800), normal S1/S2, no M/R/G Abd: Soft, non-distended, no TTP, normoactive bowels, no masses Extr: 2+ dp bilaterally, 1+ lower extremity edema (to knee) bilaterally Skin: No rashes lesions or erythema Results & Data Results & Data ([facility]) Vital Signs (Past 12 Hours) Vital Signs Temp Pulse Pulse Resp BP Pulse Ox O2 Del Method 08/20/22 07:25 108 H 20 92 Room Air 08/20/22 07:16 98 H 08/20/22 06:29 36.5 C 88 18 180/96 H 92 Room Air 08/20/22 04:05 Room Air 08/20/22 03:14 105 H 22 97 08/20/22 02:44 101 H 26 H 94 Room Air 08/20/22 02:16 93 H 22 95 Room Air 08/20/22 02:12 36.8 C 96 H 20 164/105 H 93 08/19/22 23:56 94 H 16 95 Room Air 08/19/22 23:22 36.8 C 95 H 20 149/94 H 94 Room Air 08/19/22 22:43 93 H 08/19/22 21:41 Room Air 08/19/22 21:06 39.3 C H FiO2 08/20/22 07:25 08/20/22 07:16 08/20/22 06:29 08/20/22 04:05 08/20/22 03:14 21 08/20/22 02:44 08/20/22 02:16 08/20/22 02:12 08/19/22 23:56 08/19/22 23:22 08/19/22 22:43 08/19/22 21:41 08/19/22 21:06 Resident Activity Tracking Resident Involvement: Resident Care Provided Care Provided: Adult Hospital Medicine (1) COPD (chronic obstructive pulmonary disease) COPD type: chronic bronchitis Chronic bronchitis type: unspecified Qualified Code(s): J42 - Unspecified chronic bronchitis
[2022-08-20 08:24] LABS: Hemoglobin 11.8 g/dl (12.0-16.0); Mean Corpuscular Hemoglobin 31.7 pg (25.0-34.0); Mean Corpuscular Hgb Conc 32.8 g/dL (32.0-36.0); Mean Corpuscular Volume 96.8 fL (80.0-100.0); Mean Platelet Volume 10.6 fL (9.4-12.3); Platelet Count 201 K/uL (130-400); RDW Coefficient of Variation 14.9 % (11.5-14.5); RDW Standard Deviation 52.8 fL (36.4-46.3); Red Blood Count 3.72 M/uL (3.93-5.22)
[2022-08-20 08:45] LABS: Partial Thromboplastin Ratio 0.8; Partial Thromboplastin Time 22.8 Seconds (21.0-31.0)
[2022-08-20 08:49] LABS: Calcium 8.8 mg/dl (8.5-10.1); Creatinine Clr Calc Pharmacy 50.5 ml/min; Est GFR (African American) 57.8 ml/min; Est GFR (Non-African American) 49.9 ml/min; Potassium 3.1 mmol/L (3.5-5.1)
[2022-08-20] MEDS ORDERED: ALBUT/IPRATROP 3MG/0.5MG NEB 3 ML VIAL INH PRN (10:32)
[2022-08-20] MEDS: APIXABAN 5 MG TABLET PO SCH ×2 (11:08→20:00)
[2022-08-20] MEDS: predniSONE 20 MG TAB PO SCH (11:08)
[2022-08-20] MEDS: AZITHROMYCIN 250 MG TAB PO SCH (11:08)
[2022-08-20] MEDS: LOSARTAN POTASSIUM 25 MG TAB PO SCH (11:46)
[2022-08-20] MEDS: POTASSIUM CHLORIDE CRTAB 20 MEQ TABCR PO SCH ×2 (11:46→20:00)
--- NOTE | 2022-08-20 13:49 | Electrocardiogram Report ---
Test Reason : Blood Pressure : / mmHG Vent. Rate : 115 BPM Atrial Rate : 115 BPM P-R Int : 144 ms QRS Dur : 110 ms QT Int : 360 ms P-R-T Axes : 000 000 048 degrees QTc Int : 498 ms Sinus tachycardia with occasional Premature ventricular complexes Frequent PAC's Incomplete right bundle branch block Left anterior fascicular block Abnormal ECG When compared with ECG of 19-AUG-2022 12:11, No significant change was found Confirmed by Connor Cartwright ([id number]) on 08/20/2022 1:49:13 PM Referred By: REFERRED SELF Confirmed By:Connor Cartwright
[2022-08-21] MEDS: ALBUTEROL 0.083% NEBU SOLN 3 ML VIAL INH SCH ×3 (07:04→15:38)
--- NOTE | 2022-08-21 07:18 | Hospitalist Progress Note ---
Date of Service August 21, 2022 Assessment & Plan (1) Atrial fibrillation with RVR: (2) CHF exacerbation: (3) Elevated troponin: (4) RBBB: (5) Adrenal insufficiency: (6) BEV (acute kidney injury): (7) COPD (chronic obstructive pulmonary disease): (8) Tobacco use disorder: (9) Hypertension: (10) Hyperlipidemia: (11) GERD (gastroesophageal reflux disease): (12) Carotid artery stenosis: (13) Chronic cerebral ischemia: Plan Radha is a 67 year old female with history of COPD, diastolic CHF, prior PE, depression, tobacco use, HTN, HLD, GERD, chronic cerebral ischemia/cerebral aneurysm, carotid artery stenosis, anemia, CKD3, and pre-diabetes who presented to the emergency department for shortness of breath. ED Course: ECG w/ AFib RVR, RBBB. CXR was showing stable cardiomegaly with pulmonary edema. DuoNeb and 100 mg IV hydrocortisone. COPD Exacerbation - Acute on chronic - Patient receiving Ventolin, Combivent, and Advair at home - Patient started on incentive spirometry and flutter valve - Continue supplemental O2 PRN - Added Albuterol q2h PRN DuoNeb PRN and QID scheduled inh - Continue Fluticasone-Vilanterol daily - Added Prednisone 40 mg daily - Added Azithromycin 500 mg PO daily - Continue to encourage smoking cessation, nicotine patch ordered --- Continue incentive spirometry, flutter valve, DuoNeb, and supplemental O2 PRN --- Continue Breo, Prednisone 40 daily, and Azithromycin 500 mg --- Patient notes today that she 'will never smoke again', discussed support system in place and methods of assistance if needed, encouraged patient CHF Exacerbation/HFrEF - Acute on Chronic - Volume overloaded on presentation w/ dyspnea, elevated JVD, pulmonary edema, LE edema, and BNP 2100 - Not using home Lasix prior to arrival, received 20 mg IV Lasix on admission, scheduled BID - Follow I/O, currently -2885 mL - Echo: EF 40-45% (newly reduced), global hypokinesis of left ventricle, LV systolic function mildly reduced, elevated R atrial pressure, mod mitral regurg --- Continue diuresis, - 815 mL in last 24 hours --- Plan outpatient ischemic workup (stress testing, evaluate for ischemic causes) A Fib with RVR (paroxysmal?) - Currently hemodynamically stable w/o CP, rate controlled - No known AFib history - Tele: Patient noted to transition between NSR and AFib, last noted at 07 - Echo ordered: Result above - Transitioned to Eliquis 5 mg PO BID from Heparin on admission ([id number] = 3, high risk of stroke) --- Continue Metoprolol 25 mg PO BID and Eliquis 5 mg PO BID --- Patient has not been in AFib Elevated Troponin - Peaked at 173.6, trending down - Considered likely a/w demand ischemia Adrenal insufficiency: - Chronic, daily Hydrocortisone 20 mg PO - Received 100 mg IV Hydrocortisone in the ED - Scheduled Hydrocortisone 40 mg PO on admission BEV +/- CKD - Patient is CKD3b - Cr on presentation 1.15, baseline ~ 0.8 in January - Will continue to monitor and avoid nephrotoxins Chronic Conditions: * Hypertension - no home antihypertensive * HLD - continue home statin * GERD - continue home famotidine and protonix * Carotid artery stenosis - continue Aspirin 81 * Cerebral ischemia (chronic) - continue Aspirin 81 * Hx of Pulmonary embolism - low threshold for CTA, provoked by hip surgery 05/2021 FEN: Diet/Electrolytes Code status: Full Code DVT ppx: Eliquis (therapeutic) PT/OT: PT Consult placed d/t inactivity a/w hip surgery in 2020 Isolation: COVID -, None Dispo:Med/tele CM: Admission and Anticipated Discharge Date Admission Date: August 19, 2022 Layton Garcia is a 67 year old female with history of COPD, diastolic CHF, prior PE, depression, tobacco use, HTN, HLD, GERD, chronic cerebral ischemia/cerebral aneurysm, carotid artery stenosis, anemia, CKD3, and pre-diabetes who presented to the emergency department for shortness of breath. 08/21: Patient is feeling significantly improved today, she notes that she is breathing more easily and not having any chest pain. She had no additional medication or oxygenation requirements overnight and notes that she slept well. Amount of urination has diminished since starting diuresis, but is still ongoin g. Patient feels that her leg swelling is much improved. She denies any fevers or chills. No abdominal pain or dysuria, noting constipation. She currently feels well on room air. 08/20: Patient notes this morning that she continues to experience dyspnea, but it is improved since arrival. She notes that 1 month ago she went to her PCP for similar shortness of breath, she was given and received an antibiotic and nebulizers q6h. She notes that this helped for a short period of time but her symptoms ultimately returned. Since last Sunday she has been noticing an increased amount of lower extremity swelling bilaterally. She denies any chest pain or pleuritic pain. She is not experiencing any headaches or lightheadedness. She does not that her episodes of dyspnea are causing diaphoresis. Nursing notes that overnight patient was having increased difficulty breathing w/ associated desaturations, attempts were made to provide BiPAP w/o any benefit. Review of Systems Review of Systems: As per HPI Physical Exam Physical Exam: Gen: NAD, alert, pleasant, dyspnea with short sentences HEENT: Supple, no LAD, no JVD Resp:Non-labored, improved, expiratory wheeze scattered throughout (primarily bases), mildly diminished lung sounds CV:regular w/ ectopy, normal S1/S2, no M/R/G Abd: Soft, non-distended, no TTP, normoactive bowels, no masses Extr: 2+ dp bilaterally, trace lower extremity edema (to mid-calf) bilaterally Skin: No rashes lesions or erythema Results & Data Results & Data ([facility]) Vital Signs (Past 12 Hours) Vital Signs Temp Pulse Pulse Resp BP Pulse Ox O2 Del Method 08/21/22 07:04 80 18 98 Nasal Cannula 08/21/22 03:58 36.5 C 86 19 142/86 H 96 Nasal Cannula 08/20/22 23:00 36.9 C 88 18 160/101 H 96 Nasal Cannula 08/20/22 23:01 85 08/20/22 20:54 Nasal Cannula 08/20/22 19:48 92 H 18 98 Nasal Cannula O2 Flow Rate 08/21/22 07:04 1 08/21/22 03:58 1 08/20/22 23:00 1 08/20/22 23:01 08/20/22 20:54 1 08/20/22 19:48 1 Resident Activity Tracking Resident Involvement: Resident Care Provided Care Provided: Adult Hospital Medicine (1) COPD (chronic obstructive pulmonary disease) COPD type: chronic bronchitis Chronic bronchitis type: unspecified Qualified Code(s): J42 - Unspecified chronic bronchitis
--- NOTE | 2022-08-21 08:00 | Electrocardiogram Report ---
Test Reason : Blood Pressure : / mmHG Vent. Rate : 092 BPM Atrial Rate : 092 BPM P-R Int : 128 ms QRS Dur : 114 ms QT Int : 412 ms P-R-T Axes : 000 -06 058 degrees QTc Int : 509 ms Sinus rhythm with occasional Premature ventricular complexes Incomplete right bundle branch block Nondiagnostic inferior Q waves Abnormal ECG When compared with ECG of 19-AUG-2022 16:06, No significant change was found Confirmed by Tyler Pearl ([id number]) on 08/21/2022 7:59:51 AM Referred By: REFERRED SELF Confirmed By:Tyler Pearl
[2022-08-21 08:09] LABS: Hematocrit (blood only) 38.2 % (34.1-44.9); Hemoglobin 12.3 g/dl (12.0-16.0); Mean Corpuscular Hemoglobin 32.3 pg (25.0-34.0); Mean Corpuscular Hgb Conc 32.2 g/dL (32.0-36.0); Mean Corpuscular Volume 100.3 fL (80.0-100.0); Mean Platelet Volume 10.4 fL (9.4-12.3); Platelet Count 199 K/uL (130-400); RDW Coefficient of Variation 14.7 % (11.5-14.5); Red Blood Count 3.81 M/uL (3.93-5.22)
[2022-08-21] MEDS: NICOTINE 21 MG/24 HR TDSY TD SCH (08:23)
[2022-08-21] MEDS: ASPIRIN 81 MG ECTAB PO SCH (08:23)
[2022-08-21] MEDS: PANTOprazole 40 MG TAB PO SCH (08:23)
[2022-08-21] MEDS: DICLOFENAC SOD 1% GEL 100 GM TUBE EXT SCH ×3 (08:24→16:34)
[2022-08-21] MEDS: FUROSEMIDE INJ 20 MG/2 ML VIAL IV SCH (08:24)
[2022-08-21] MEDS: HYDROCORTISONE 10 MG TAB PO SCH (08:24)
[2022-08-21] MEDS: predniSONE 20 MG TAB PO SCH (08:25)
[2022-08-21] MEDS: FLUTICASONE/VILANTEROL 100/25MCG 14 PUFFS/INHALER INH SCH (08:25)
[2022-08-21] MEDS: METOPROLOL TARTRATE 25 MG TAB PO SCH (08:25)
[2022-08-21] MEDS: FAMOTIDINE 20 MG TAB PO SCH (08:25)
[2022-08-21] MEDS: AZITHROMYCIN 250 MG TAB PO SCH (08:25)
[2022-08-21] MEDS: POTASSIUM CHLORIDE CRTAB 20 MEQ TABCR PO SCH (08:25)
[2022-08-21] MEDS: APIXABAN 5 MG TABLET PO SCH (08:26)
[2022-08-21] MEDS: LOSARTAN POTASSIUM 25 MG TAB PO SCH (08:26)
[2022-08-21] MEDS ORDERED: POLYETHYLENE (MIRALAX) 17 GM PACK PO PRN ×2 (08:27→12:42)
[2022-08-21 08:37] LABS: Albumin Globulin Ratio 1.5 (0.9-2); Albumin Level 3.6 gm/dl (3.4-5.0); BUN Creatinine Ratio 24.4 (10-20); Calcium 9.1 mg/dl (8.5-10.1); Creatinine Clr Calc Pharmacy 46.4 ml/min; Est GFR (African American) 52.2 ml/min; Globulin 2.4 gm/dl (2.5-4.0); Potassium 3.5 mmol/L (3.5-5.1)
--- NOTE | 2022-08-21 18:29 | Discharge Summary ---
Date of Service August 21, 2022 Admission HPI Per Admitting Provider Radha is a 67 year old female with a PMH significant for COPD, adrenal insufficiency on daily hydrocortisone, tobacco use disorder, hypertension, hyperlipidemia, GERD, depression with anxiety, chronic cerebral ischemia due to left internal carotid stenosis, carotid artery stenosis S/P left carotid endarterectomy in February of 2020, history of brain surgery, anemia, septic arthritis of hip, history of revision of right MAXIMUS, pulm emboli, acute diastolic CHF, CKD stage IIIb, nausea and vomiting, and pressure ulcer who presented to the [facility] ED on 08/19/22 with a chief complaint of SOB. In the ED the patient was found to be afebrile. hemodynamically stable, stable on RA, but tachycardic in the 's. ECG was showing "Atrial fibrillation with rapid ventricular response Right bundle branch block Abnormal ECG When co mpared with ECG of 15-NOV-2021 13:02, Atrial fibrillation has replaced Ectopic atrial rhythm Right bundle branch block is now Present". Labs were significant for a leukocytosis of 11.18 with left shift of 8.81, stable Hgb, sodium of 146, potassium of 3.9, mag of 2.0, cr of 1.15 (baseline appears to be closer to 0.8), normal liver function, high sensitivity troponin of 118.5, BNP of 2100, procal of 0.17, and negative viral biofire. Chest xray was showing stable cardiomegaly with pulmonary edema. Prior to admission the patient was given DuoNebs and 100 mg IV hydrocortisone. At the time of the exam the patient was resting comfortably in bed in no acute distress. She states that she has experienced worsening chronic cough for the past 2-3 weeks. Per chart review, she was seen at her PCP's office on 08/02/22 for this complaint. At that time she was treated with a 10 day course of doxycycline, duonebs, and advised to use her stress dose of Hydrocortisone. She completed the doxycycline as prescribed but states that her cough has not improved. She states that the cough is non-productive with increased coughing frequency compared to her baseline smoker's cough. She is still smoking daily but has been unable to the past 2-3 days because her cough has been so bad. She states that this morning she woke up and felt more SOB due to her cough. She used her Nebulizer with DuoNebs and her rescue inhalers without relief. She called her Niece who then called 911. She denies recent fevers, chills, headache, changes in vision, hearing, taste, and smell, chest pain, abdominal pain, lightheadedness, dizziness, nausea, vomiting, dysuria, hematuria, diarrhea, and recent falls. She has noted increased swelling in her lower extremities over the past week. She currently has her CORINE stockings on to help with the swelling. She is wheelchair bound due to her previous septic arthritis of the right hip. She again denies chest pain or discomfort of any kind and states that her breathing and cough are improved after receiving the DuoNeb earlier in the ED. When asked if she has been using her lasix prescription for swelling she states she has not been. She states that she was told to only use it a few times a week if she has swelling but she had not taken it this week yet. I explained that she was found to be in afib RVR and it does not appear that she has a history of Afib. She confirmed that she has never been told she has afib. She confirmed that she was treated with eliquis last year for PE but was taken off of it after successful treatment. I reviewed prior PCP clinic notes over the past year. From the note on 02/13/22 it was explained that she was to continue her Eliquis despite completing 6 months of therapy for PE as she has decreased mobility with her previous right hip issues. It was noted at that time that she has a family history of MTHFR mutation but she is unsure if she has it herself. It was also noted that she has a history of anemia and guiac + stool, was recommended to get a colonoscopy but it does not appear that she ever had one. As of her PCP visit on 05/15/22 it was noted that she was still on Eliquis. As of her PCP visit on 08/02/22 it was noted that she was no longer taking Eliquis, unfortunately it does not give a reason why she stopped. I spoke to her regarding the increased risk of stroke with afib, I explained that her [id number] VASc score was high at 7, giving her an 11.3% risk of stroke per year. I also explained that her HAS-BLED score is 4, giving her a high risk of major bleeding. She confirmed that she has never had major bleeding in the past such as hemorrhagic stroke or large GI bleed. We discussed the risks and benefits of holding and starting anticoagulation, the patient elected to start anticoagulation at this time. I discussed code status with the patient, at this time she is a conditional code. She does NOT want CPR but would want a trial of intubation and defibrillation if needed. Her son, Sekou Moon ([phone]) would make decisions for her if she could not make them herself. PLease refer to Dr. Steele's attestation for any changes to the treatment plan Principal Diagnosis COPD exacerbation Discharge Exam In general she is awake and alert pleasant no distress. HEENT normocephalic atraumatic mucous membranes moist. Breathing unlabored no accessory muscle use lungs are clear but quiet no rales rhonchi or wheezes no conversational dyspnea no accessory muscle use good effort. Discharge Data Allergies Allergy/AdvReac Type Severity Reaction Status Date / Time No Known Allergies Allergy Verified 08/02/22 13:08 Consultations 08/19/22 11:15 ED Decision to Admit Stat Hospital Course (1) COPD exacerbation: COPD exacerbation -Now on room air, feels like she is back to her baseline, no conversational dyspnea, no exertional dyspneawould like to go home, this seems quite reaso nable -Home on home inhalers, finish out azithromycin and prednisone -Outpatient follow-up CHF Exacerbation - Acute on Chronic HFrEF - Volume overloaded on presentation w/ dyspnea, elevated JVD, pulmonary edema, LE edema, and BNP 2100 - Not using home Lasix prior to arrival, diuresed here, breathing improvedno clear need for ongoing outpatient Lasix, close outpatient follow-up and can resume/titrate if needed. Can also titrate afterload reduction as an outpatient A Fib with RVR (paroxysmal?) -Rate controlled, anticoagulated Elevated Troponin - Peaked at 173.6, trending down - Considered likely a/w demand ischemia related predominantly to COPD exacerbation, as well as RVR previously Adrenal insufficiency: -Prednisone taperback down to home hydrocortisone dosing BEV +/- CKD - Patient is CKD3b -Outpatient follow-up Chronic Conditions: * Hypertension-BP reasonableoutpatient follow-up * HLD- continue home statin * GERD- continue home famotidine and protonix * Carotid artery stenosis- continue Aspirin 81 * Cerebral ischemia (chronic)- continue Aspirin 81 * Hx of Pulmonary embolism-anticoagulation for A. fib safe/stable for home Total Time Total Time Spent Total Time Spent (In Minutes): <30 Discharge Plan Discharge Items Patient Disposition: Home - Self-Care Reason For Visit: SOB Discharge Diagnosis: COPD Exacerbation HF Exacerbation Activity: Resume your previous activity Non-emergency contact: Primary Care Provider Call non-emergency contact if: you have any medication questions and your symptoms worsen Follow-up/Referrals: Edwin Valdez MD [Primary Care Provider] - 08/30/22 11:00 am Diet: Heart Healthy Addtl Attending Provider Instructions: You were admitted to the hospital for a COPD Exacerbation and a HF exacerbation. You were given DuoNeb, Azithromycin, and steroids to help with your shortness of breath. You were given Lasix (a diuretic) to help remove the excess fluid from your lungs and legs. . A discharge summary will be sent to your primary care physician to ensure continuity of care. Please bring this discharge summary with you to your next office appointment so that your provider can review it at that time. Follow-up appointments: - Make a follow-up appointment with your PCP within the next week. It is very important that you follow up with them shortly after discharge from the hospital. We have requested a follow-up appointment with your primary care physician within one week of discharge. Please call their office if you do not hear from them. - We recommend making an appointment to establish with a Dietary Director, please discuss this with your primary care physician. Medications: - Your medication list has been reviewed and reconciled upon discharge to ensure accuracy and continuity of care. An updated list of all your medications is included with your hospital discharge paperwork. Please review this list closely, and make note of any changes. - We sent a new medication Prednisone. Please take 40 mg by mouth daily for the next 3 days (for a total of 5 days). - We sent a new medication Azithromycin. Please take 500 mg by mouth for an additional 1 day (for a total of 3 days) - Continue home diuretic as needed for lower extremity edema (swelling) - Continue Metoprolol succinate 25 mg PO daily - We sent a new medication Eliquis. Please take 500 mg by mouth twice daily. - If you have any issues filling these prescriptions, please call [phone] and ask to leave a message for Dr. Portillo. - Take your medications as instructed; do not skip a dose of your medicines. Make sure all of your doctors know every medicine you are taking (including [id number] medicines, vitamins, and supplements). - Call your primary care provider before taking any new medicines (including over- the-counter medicines, vitamins, and supplements), because some of these may interact with your current medications, or may make your symptoms worse. - Tell your primary care provider if you cannot afford your medications. Contact your Primary Care Provider if you experience: - Mild shortness of breath - Lower extremity swelling - Difficulty following your treatment plan or taking medications Call 911 or go to the emergency department if you experience: - Sudden, severe abdominal pain or nausea/vomiting - Severe chest pain, or chest pain that radiates (moves) to your jaw or arm - Sudden, severe shortness of breath or difficulty breathing It was a pleasure to be a part of your care, Dr. Justen Portillo Pending Studies at Discharge: No Stand-Alone Forms: My [facility] [employer], Smoking Cessation Medications and DC Order Prescriptions: New azithromycin 250 mg Tablet 500 mg PO QAM 1 Days Qty: 2 0RF Eliquis 5 mg Tablet 5 mg PO BID 30 Days Qty: 60 0RF metoprolol succinate [Toprol XL] 25 mg tablet extended release 24 hr 25 mg PO DAILY 30 Days Qty: 30 0RF prednisone 20 mg Tablet 40 mg PO DAILY 3 Days Qty: 6 0RF Continued aspirin [Rocio Low Dose Aspirin] 81 mg tablet,delayed release (DR/EC) 81 mg PO QAM Qty: 90 3RF ondansetron 4 mg tablet,disintegrating 4 mg PO Q6H PRN (Reason: NAUSEA/VOMITING) Qty: 20 1RF Combivent Respimat 20-100 mcg/actuation mist 1 puff inhalation QID Qty: 4 5RF Rx Instructions: space evenly during waking hours hydrocortisone 20 mg tablet 40 mg PO BID PRN (Reason: see specific directions) Qty: 90 2RF Rx Instructions: During times of stress only, take 40mg in the morning and then 20mg 8 hours later. albuterol sulfate [ProAir HFA] 90 mcg/actuation HFA aerosol inhaler 2 inh INHALATION DAILY Qty: 18 5RF fluticasone propion-salmeterol [Advair Diskus] 250-50 mcg/dose blister with device 1 inh inhalation BID Qty: 60 11RF oxycodone 10 mg tablet 10 mg PO Q6H PRN (Reason: pain) Qty: 180 0RF famotidine 20 mg tablet 20 mg PO BID Qty: 90 3RF pantoprazole 40 mg tablet,delayed release (DR/EC) 40 mg PO BID Qty: 90 3RF Narcan 4 mg/actuation spray,non-aerosol 4 mg intranasal DIRECTED PRN (Reason: OVERSEDATION) Rx Instructions: spray 1 dose into ONE nostril; alternate nostrils w each dose until help arrives furosemide 20 mg tablet 20 mg PO DAILY PRN (Reason: edema) Qty: 30 2RF ipratropium-albuterol 0.5 mg-3 mg(2.5 mg base)/3 mL solution for nebulization 3 ml inhalation Q6H PRN (Reason: wheezing) Qty: 90 3RF albuterol sulfate 2.5 mg /3 mL (0.083 %) solution for nebulization 2.5 mg inhalation Q6H Qty: 90 2RF sennosides [Senokot] 8.6 mg tablet 8.6 mg PO BID hydrocortisone 20 mg tablet 20 mg PO DAILY Rx Instructions: 20 mg PO see specfific directions; take 20mg tablet in am and then 8 hours later take 10mg (1/2 20mg tablet) diclofenac sodium [Voltaren Arthritis Pain] 1 % Gel 4 g EXT QID Qty: 100 0RF Discharge Orders: Discharge Order (Routine); Ordered 08/21/22 Ordered By: Justen Portillo Admission Data Admit Date/Time: 08/19/22 11:21 Attending Provider: John De Oliveira Admit Provider: Alfredo Steele Primary Care Provider: Edwin Valdez Other Providers: Alfredo Steele Other Interventions: Discharge Summary Assessment (RN) Last Done: 08/21/22 17:02 Coding Level of Care Code D/C DAY MANAGEMENT <30 MINS Diagnoses COPD exacerbation J44.1
--- NOTE | 2022-08-21 18:35 | Discharge Summary ---
Date of Service August 21, 2022 Admission HPI Per Admitting Provider Radha is a 67 year old female with a PMH significant for COPD, adrenal insufficiency on daily hydrocortisone, tobacco use disorder, hypertension, hyperlipidemia, GERD, depression with anxiety, chronic cerebral ischemia due to left internal carotid stenosis, carotid artery stenosis S/P left carotid endarterectomy in February of 2020, history of brain surgery, anemia, septic arthritis of hip, history of revision of right MAXIMUS, pulm emboli, acute diastolic CHF, CKD stage IIIb, nausea and vomiting, and pressure ulcer who presented to the [facility] ED on 08/19/22 with a chief complaint of SOB. In the ED the patient was found to be afebrile. hemodynamically stable, stable on RA, but tachycardic in the 's. ECG was showing "Atrial fibrillation with rapid ventricular response Right bundle branch block Abnormal ECG When co mpared with ECG of 15-NOV-2021 13:02, Atrial fibrillation has replaced Ectopic atrial rhythm Right bundle branch block is now Present". Labs were significant for a leukocytosis of 11.18 with left shift of 8.81, stable Hgb, sodium of 146, potassium of 3.9, mag of 2.0, cr of 1.15 (baseline appears to be closer to 0.8), normal liver function, high sensitivity troponin of 118.5, BNP of 2100, procal of 0.17, and negative viral biofire. Chest xray was showing stable cardiomegaly with pulmonary edema. Prior to admission the patient was given DuoNebs and 100 mg IV hydrocortisone. At the time of the exam the patient was resting comfortably in bed in no acute distress. She states that she has experienced worsening chronic cough for the past 2-3 weeks. Per chart review, she was seen at her PCP's office on 08/02/22 for this complaint. At that time she was treated with a 10 day course of doxycycline, duonebs, and advised to use her stress dose of Hydrocortisone. She completed the doxycycline as prescribed but states that her cough has not improved. She states that the cough is non-productive with increased coughing frequency compared to her baseline smoker's cough. She is still smoking daily but has been unable to the past 2-3 days because her cough has been so bad. She states that this morning she woke up and felt more SOB due to her cough. She used her Nebulizer with DuoNebs and her rescue inhalers without relief. She called her Niece who then called 911. She denies recent fevers, chills, headache, changes in vision, hearing, taste, and smell, chest pain, abdominal pain, lightheadedness, dizziness, nausea, vomiting, dysuria, hematuria, diarrhea, and recent falls. She has noted increased swelling in her lower extremities over the past week. She currently has her CORINE stockings on to help with the swelling. She is wheelchair bound due to her previous septic arthritis of the right hip. She again denies chest pain or discomfort of any kind and states that her breathing and cough are improved after receiving the DuoNeb earlier in the ED. When asked if she has been using her lasix prescription for swelling she states she has not been. She states that she was told to only use it a few times a week if she has swelling but she had not taken it this week yet. I explained that she was found to be in afib RVR and it does not appear that she has a history of Afib. She confirmed that she has never been told she has afib. She confirmed that she was treated with eliquis last year for PE but was taken off of it after successful treatment. I reviewed prior PCP clinic notes over the past year. From the note on 02/13/22 it was explained that she was to continue her Eliquis despite completing 6 months of therapy for PE as she has decreased mobility with her previous right hip issues. It was noted at that time that she has a family history of MTHFR mutation but she is unsure if she has it herself. It was also noted that she has a history of anemia and guiac + stool, was recommended to get a colonoscopy but it does not appear that she ever had one. As of her PCP visit on 05/15/22 it was noted that she was still on Eliquis. As of her PCP visit on 08/02/22 it was noted that she was no longer taking Eliquis, unfortunately it does not give a reason why she stopped. I spoke to her regarding the increased risk of stroke with afib, I explained that her [id number] VASc score was high at 7, giving her an 11.3% risk of stroke per year. I also explained that her HAS-BLED score is 4, giving her a high risk of major bleeding. She confirmed that she has never had major bleeding in the past such as hemorrhagic stroke or large GI bleed. We discussed the risks and benefits of holding and starting anticoagulation, the patient elected to start anticoagulation at this time. I discussed code status with the patient, at this time she is a conditional code. She does NOT want CPR but would want a trial of intubation and defibrillation if needed. Her son, Sekou Moon ([phone]) would make decisions for her if she could not make them herself. PLease refer to Dr. Steele's attestation for any changes to the treatment plan Admission Exam Per Admitting Provider Physical Exam: General:In no acute distress, stated age, chronically ill-appearing, non- toxic appearing HEENT:Normocephalic, atraumatic, no scleral icterus, pupils around round, symmetrical, and reactive to light, dry mucus membranes,+ JVD,trachea midline, no thyromegaly Chest/Pulm:No respiratory distress, symmetrical chest expansion, decreased breath sounds throughout Cardiac: Irregular rate and rhythm, no murmurs noted Abdomen:Negative for ascites and bruising, normoactive bowel sounds, soft, non-tender to palpation throughout Musculoskeletal:Symmetrical and without signs of acute trauma, upper and lower extremities with full ROM, no atrophy, spasticity, or flaccidity Extremities:Radial, dorsalis pedis, and posterior tibial pulses are intact and symmetrical, +1-2 edema noted in the BL LE's after inspecting with her CORINE's removed Skin:Warm, dry, no rashes , signs of old bruises noted on the BL UE's Neuro:Alert and oriented to person, place, month, year, and president, no focal defects, CN II-XII tested and intact, finger to nose test negative, no tremors noted Psych:No acute distress, calm and cooperative during the exam Principal Diagnosis CHF Exacerbation HF Exacerbation Discharge Exam Gen: NAD, alert, pleasant, no dyspnea in conversation HEENT: Supple, no LAD, no JVD Resp:Non-labored, improved, expiratory wheeze scattered throughout (primarily bases), mildly diminished lung sounds CV:regular w/ ectopy, normal S1/S2, no M/R/G Abd: Soft, non-distended, no TTP, normoactive bowels, no masses Extr: 2+ dp bilaterally, trace lower extremity edema (to mid-calf) bilaterally Skin: No rashes lesions or erythema Discharge Data Allergies Allergy/AdvReac Type Severity Reaction Status Date / Time No Known Allergies Allergy Verified 08/02/22 13:08 Consultations 08/19/22 11:15 ED Decision to Admit Stat Ordered Studies Laboratory Results WBC 10.00 K/ul (4.8-10.8) 08/21/22 07:46 RBC 3.81 M/uL (3.93-5.22) L 08/21/22 07:46 Hgb 12.3 g/dl (12.0-16.0) 08/21/22 07:46 Hct 38.2 % (34.1-44.9) 08/21/22 07:46 MCV 100.3 fL (80.0-100.0) H 08/21/22 07:46 MCH 32.3 pg (25.0-34.0) 08/21/22 07:46 MCHC 32.2 g/dL (32.0-36.0) 08/21/22 07:46 RDW Std Deviation 54.0 fL (36.4-46.3) H 08/21/22 07:46 RDW Coeff of Crow 14.7 % (11.5-14.5) H 08/21/22 07:46 Plt Count 199 K/uL (130-400) 08/21/22 07:46 MPV 10.4 fL (9.4-12.3) 08/21/22 07:46 Immature Gran % (Auto) 0.5 % 08/19/22 13:16 Neut % (Auto) 86.3 % 08/19/22 13:16 Lymph % (Auto) 6.8 % 08/19/22 13:16 [place] % (Auto) 6.3 % 08/19/22 13:16 Eos % (Auto) 0.0 % 08/19/22 13:16 Baso % (Auto) 0.1 % 08/19/22 13:16 Neut # (Auto) 12.00 K/uL (1.4-6.5) H 08/19/22 13:16 Lymph # (Auto) 0.94 K/uL (1.2-3.4) L 08/19/22 13:16 [place] # (Auto) 0.88 K/uL (0.24-0.82) H 08/19/22 13:16 Eos # (Auto) 0.00 K/uL (0-0.50) 08/19/22 13:16 Baso # (Auto) 0.01 K/uL (0-0.2) 08/19/22 13:16 Immature Gran # (Auto) 0.07 K/uL (0.00-0.02) H 08/19/22 13:16 PT 11.2 Seconds (9.0-12.0) 08/19/22 13:16 INR 1.1 (0.9-1.1) 08/19/22 13:16 APTT 22.8 Seconds (21.0-31.0) 08/20/22 07:27 PTT Ratio 0.8 08/20/22 07:27 Sodium 145 mmol/L (136-145) 08/21/22 07:46 Potassium 3.5 mmol/L (3.5-5.1) 08/21/22 07:46 Chloride 102 mmol/L (98-107) 08/21/22 07:46 Carbon Dioxide 38 mmol/L (21-32) H 08/21/22 07:46 Anion Gap 5 (3-11) 08/21/22 07:46 BUN 30 mg/dl (6-23) H 08/21/22 07:46 Creatinine 1.23 mg/dl (0.6-1.2) H 08/21/22 07:46 Est Cr Clr Drug Dosing 46.4 ml/min 08/21/22 07:46 Est GFR ( Amer) 52.2 ml/min 08/21/22 07:46 Est GFR (Non-Af Amer) 45.0 ml/min 08/21/22 07:46 BUN/Creatinine Ratio 24.4 (10-20) H 08/21/22 07:46 Glucose 109 mg/dl (70-99(Fasting)) H 08/21/22 07:46 Lactate 1.7 mmol/L (0.4-2.0) 08/19/22 10:24 Calcium 9.1 mg/dl (8.5-10.1) 08/21/22 07:46 Magnesium 2.0 mg/dl (1.7-2.4) 08/19/22 15:53 Total Bilirubin 1.0 mg/dl (0.2-1.0) 08/21/22 07:46 Direct Bilirubin 0.2 mg/dl (0-0.2) 08/19/22 10:00 AST 13 U/L (13-39) 08/21/22 07:46 ALT 32 U/L (7-52) 08/21/22 07:46 Alkaline Phosphatase 61 U/L (34-104) 08/21/22 07:46 Troponin I High Sens 169.3 pg/ml (0-14) H* 08/20/22 11:14 B-Natriuretic Peptide 2100 pg/ml (0-100) H 08/19/22 10:29 Total Protein 6.0 gm/dl (6.0-8.3) 08/21/22 07:46 Albumin 3.6 gm/dl (3.4-5.0) 08/21/22 07:46 Globulin 2.4 gm/dl (2.5-4.0) L 08/21/22 07:46 Albumin/Globulin Ratio 1.5 (0.9-2) 08/21/22 07:46 Procalcitonin 0.17 ng/ml (0-0.5) 08/19/22 10:00 TSH 0.493 uIu/ml (0.300-4.500) 08/19/22 12:14 Urine Color Yellow 08/19/22 14:43 Urine Appearance Clear (Clear) 08/19/22 14:43 Urine pH 7.0 (4.5-7.5) 08/19/22 14:43 Ur Specific [place] 1.023 (1.000-1.030) 08/19/22 14:43 Urine Protein 1+ (Negative) H 08/19/22 14:43 Urine Glucose (UA) Negative (Negative) 08/19/22 14:43 Urine Ketones Negative (Negative) 08/19/22 14:43 Urine Blood Negative (Negative) 08/19/22 14:43 Urine Nitrite Negative (Negative) 08/19/22 14:43 Urine Bilirubin Negative (Negative) 08/19/22 14:43 Urine Urobilinogen Negative (Negative) 08/19/22 14:43 Ur Leukocyte Esterase Negative (Negative) 08/19/22 14:43 Urine WBC (Auto) 1-5 /hpf (0-5) 08/19/22 14:43 Urine RBC (Auto) 0-4 /hpf (0-4) 08/19/22 14:43 U Hyaline Cast (Auto) 0 /lpf (0-5) 08/19/22 14:43 U Epithel Cells (Auto) >30 /lpf (0-5) H 08/19/22 14:43 Urine Bacteria (Auto) Negative (Negative) 08/19/22 14:43 Adenovirus (PCR) Not Detected (NotDetected) 08/19/22 10:00 B. pertussis DNA (PCR) Not Detected (NotDetected) 08/19/22 10:00 B.parapertussis DNA PCR Not Detected (NotDetected) 08/19/22 10:00 C. pneumoniae DNA (PCR) Not Detected (NotDetected) 08/19/22 10:00 Coronavirus OC43 (PCR) Not Detected (NotDetected) 08/19/22 10:00 Coronavirus HKU1 (PCR) Not Detected (NotDetected) 08/19/22 10:00 Coronavirus 229E (PCR) Not Detected (NotDetected) 08/19/22 10:00 SARS-CoV-2 (PCR) Not Detected (NotDetected) 08/19/22 10:00 Coronavirus NL63 (PCR) Not Detected (NotDetected) 08/19/22 10:00 Human Metapneumovir PCR Not Detected (NotDetected) 08/19/22 10:00 Influenza Type A (PCR) Not Detected (NotDetected) 08/19/22 10:00 Influenza Type B (PCR) Not Detected (NotDetected) 08/19/22 10:00 M. pneumoniae (PCR) Not Detected (NotDetected) 08/19/22 10:00 Parainfluenza 1 (PCR) Not Detected (NotDetected) 08/19/22 10:00 Parainfluenza 2 (PCR) Not Detected (NotDetected) 08/19/22 10:00 Parainfluenza 3 (PCR) Not Detected (NotDetected) 08/19/22 10:00 Parainfluenza 4 (PCR) Not Detected (NotDetected) 08/19/22 10:00 RSV (PCR) Not Detected (NotDetected) 08/19/22 10:00 Entero/Rhino (PCR) Not Detected (NotDetected) 08/19/22 10:00 Impressions Chest X-Ray 08/19/22 10:00 XR chest 1V portable CLINICAL HISTORY: Sepsis TECHNIQUE: Single frontal radiograph of the chest was obtained. Comparison: Comparison is made to chest radiograph 11/15/2021 FINDINGS: No lines and tubes are seen. Cardiomegaly is noted. There is prominence and cephalization of the vasculature with Frantz B lines seen. No evidence of pleural effusion or pneumothorax. IMPRESSION: Moderate pulmonary edema. Stable cardiomegaly. ACT 112: Negative or not required by law. Electronically signed by: Simba Mcclain M.D. 08/19/2022 10:22 AM Hospital Course (1) Atrial fibrillation with RVR: (2) CHF exacerbation: (3) Elevated troponin: (4) RBBB: (5) Adrenal insufficiency: (6) BEV (acute kidney injury): (7) COPD (chronic obstructive pulmonary disease): (8) Tobacco use disorder: (9) Hypertension: (10) Hyperlipidemia: (11) GERD (gastroesophageal reflux disease): (12) Carotid artery stenosis: (13) Chronic cerebral ischemia: Marco Garcia is a 67 year old female with history of COPD, diastolic CHF, prior PE, depression, tobacco use, HTN, HLD, GERD, chronic cerebral ischemia/cerebral aneurysm, carotid artery stenosis, anemia, CKD3, and pre-diabetes who presented to the emergency department for shortness of breath. ED Course: ECG w/ AFib RVR, RBBB. CXR was showing stable cardiomegaly with pulmonary edema. DuoNeb and 100 mg IV hydrocortisone. COPD Exacerbation - Acute on chronic - Patient receiving Ventolin, Combivent, and Advair at home - Patient started on incentive spirometry and flutter valve - Continue supplemental O2 PRN - Added Albuterol q2h PRN DuoNeb PRN and QID scheduled inh - Continue Fluticasone-Vilanterol daily - Added Prednisone 40 mg daily - Added Azithromycin 500 mg PO daily - Continue to encourage smoking cessation, nicotine patch ordered - Patient notes today that she 'will never smoke again', discussed support system in place and methods of assistance if needed, encouraged patient Discharged with Azithromycin 500 mg (x1 day) and Prednisone 40 mg (x3 days). Patient was advised to continue home COPD regimen with Ventolin and Combivent when she returns home. CHF Exacerbation/HFrEF - Acute on Chronic - Volume overloaded on presentation w/ dyspnea, elevated JVD, pulmonary edema, LE edema, and BNP 2100 - Not using home Lasix prior to arrival, received 20 mg IV Lasix on admission, scheduled BID - Follow I/O, currently -2885 mL - Echo: EF 40-45% (newly reduced), global hypokinesis of left ventricle, LV systolic function mildly reduced, elevated R atrial pressure, mod mitral regurg - 08/21 Continue diuresis, - 815 mL in last 24 hours Patient discharged on Metoprolol succinate 25 mg daily. Patient advised to take home furosemide 20 mg PRN for edema. Recommending outpatient ischemia workup (stress testing, etc.) Recommending patient follow with Cardiology as outpatient d/t newly reduced EF 40-45% A Fib with RVR - Currently hemodynamically stable w/o CP, rate controlled - No known AFib history - Tele: Patient noted to transition between NSR and AFib, last noted at 0730 - Echo ordered: Result above - Transitioned to Eliquis 5 mg PO BID from Heparin on admission ([id number] = 3, high risk of stroke) - 08/21 Continue Metoprolol 25 mg PO BID and Eliquis 5 mg PO BID Patient in normal sinus rhythm at discharge. Discharged with Metoprolol succinate 25 mg daily and Eliquis 5 mg PO BID. Elevated Troponin - Peaked at 173.6, trending down - Considered likely a/w demand ischemia Adrenal insufficiency: - Chronic, daily Hydrocortisone 20 mg PO - Received 100 mg IV Hydrocortisone in the ED - Scheduled Hydrocortisone 40 mg PO on admission Return to home dose of Hydrocortisone. BEV +/- CKD - Patient is CKD3b - Cr on presentation 1.15, baseline ~ 0.8 in January - Will continue to monitor and avoid nephrotoxins Chronic Conditions: * Hypertension- no home antihypertensive * HLD- continue home statin * GERD- continue home famotidine and protonix * Carotid artery stenosis- continue Aspirin 81 * Cerebral ischemia (chronic)- continue Aspirin 81 * Hx of Pulmonary embolism- low threshold for CTA, provoked by hip surgery 05/2021 FEN: Diet/Electrolytes Code status: Full Code DVT ppx: Magalie (therapeutic) PT/OT: PT Consult placed d/t inactivity a/w hip surgery in 2020 Isolation: COVID -, None Dispo:Med/tele Total Time Total Time Spent Total Time Spent (In Minutes): See attending attestation. Discharge Plan Discharge Items Patient Disposition: Home - Self-Care Reason For Visit: SOB Discharge Diagnosis: COPD Exacerbation HF Exacerbation Activity: Resume your previous activity Non-emergency contact: Primary Care Provider Call non-emergency contact if: you have any medication questions and your symptoms worsen Follow-up/Referrals: Edwin Valdez MD [Primary Care Provider] - 08/30/22 11:00 am Diet: Heart Healthy Addtl Attending Provider Instructions: You were admitted to the hospital for a COPD Exacerbation and a HF exacerbation. You were given DuoNeb, Azithromycin, and steroids to help with your shortness of breath. You were given Lasix (a diuretic) to help remove the excess fluid from your lungs and legs. . A discharge summary will be sent to your primary care physician to ensure continuity of care. Please bring this discharge summary with you to your next office appointment so that your provider can review it at that time. Follow-up appointments: - Make a follow-up appointment with your PCP within the next week. It is very important that you follow up with them shortly after discharge from the hospital. We have requested a follow-up appointment with your primary care physician within one week of discharge. Please call their office if you do not hear from them. - We recommend making an appointment to establish with a Licensed Loan Officer, please discuss this with your primary care physician. Medications: - Your medication list has been reviewed and reconciled upon discharge to ensure accuracy and continuity of care. An updated list of all your medications is included with your hospital discharge paperwork. Please review this list closely, and make note of any changes. - We sent a new medication Prednisone. Please take 40 mg by mouth daily for the next 3 days (for a total of 5 days). - We sent a new medication Azithromycin. Please take 500 mg by mouth for an additional 1 day (for a total of 3 days) - Continue home diuretic as needed for lower extremity edema (swelling) - Continue Metoprolol succinate 25 mg PO daily - We sent a new medication Eliquis. Please take 500 mg by mouth twice daily. - If you have any issues filling these prescriptions, please call [phone] and ask to leave a message for Dr. Portillo. - Take your medications as instructed; do not skip a dose of your medicines. Make sure all of your doctors know every medicine you are taking (including [id number] medicines, vitamins, and supplements). - Call your primary care provider before taking any new medicines (including over- the-counter medicines, vitamins, and supplements), because some of these may interact with your current medications, or may make your symptoms worse. - Tell your primary care provider if you cannot afford your medications. Contact your Primary Care Provider if you experience: - Mild shortness of breath - Lower extremity swelling - Difficulty following your treatment plan or taking medications Call 911 or go to the emergency department if you experience: - Sudden, severe abdominal pain or nausea/vomiting - Severe chest pain, or chest pain that radiates (moves) to your jaw or arm - Sudden, severe shortness of breath or difficulty breathing It was a pleasure to be a part of your care, Dr. Justen Portillo Pending Studies at Discharge: No Stand-Alone Forms: My [facility], Smoking Cessation Medications and DC Order Prescriptions: New azithromycin 250 mg Tablet 500 mg PO QAM 1 Days Qty: 2 0RF Eliquis 5 mg Tablet 5 mg PO BID 30 Days Qty: 60 0RF metoprolol succinate [Toprol XL] 25 mg tablet extended release 24 hr 25 mg PO DAILY 30 Days Qty: 30 0RF prednisone 20 mg Tablet 40 mg PO DAILY 3 Days Qty: 6 0RF Continued aspirin [Rocio Low Dose Aspirin] 81 mg tablet,delayed release (DR/EC) 81 mg PO QAM Qty: 90 3RF ondansetron 4 mg tablet,disintegrating 4 mg PO Q6H PRN (Reason: NAUSEA/VOMITING) Qty: 20 1RF Combivent Respimat 20-100 mcg/actuation mist 1 puff inhalation QID Qty: 4 5RF Rx Instructions: space evenly during waking hours hydrocortisone 20 mg tablet 40 mg PO BID PRN (Reason: see specific directions) Qty: 90 2RF Rx Instructions: During times of stress only, take 40mg in the morning and then 20mg 8 hours later. albuterol sulfate [ProAir HFA] 90 mcg/actuation HFA aerosol inhaler 2 inh INHALATION DAILY Qty: 18 5RF fluticasone propion-salmeterol [Advair Diskus] 250-50 mcg/dose blister with device 1 inh inhalation BID Qty: 60 11RF oxycodone 10 mg tablet 10 mg PO Q6H PRN (Reason: pain) Qty: 180 0RF famotidine 20 mg tablet 20 mg PO BID Qty: 90 3RF pantoprazole 40 mg tablet,delayed release (DR/EC) 40 mg PO BID Qty: 90 3RF Narcan 4 mg/actuation spray,non-aerosol 4 mg intranasal DIRECTED PRN (Reason: OVERSEDATION) Rx Instructions: spray 1 dose into ONE nostril; alternate nostrils w each dose until help arrives furosemide 20 mg tablet 20 mg PO DAILY PRN (Reason: edema) Qty: 30 2RF ipratropium-albuterol 0.5 mg-3 mg(2.5 mg base)/3 mL solution for nebulization 3 ml inhalation Q6H PRN (Reason: wheezing) Qty: 90 3RF albuterol sulfate 2.5 mg /3 mL (0.083 %) solution for nebulization 2.5 mg inhalation Q6H Qty: 90 2RF sennosides [Senokot] 8.6 mg tablet 8.6 mg PO BID hydrocortisone 20 mg tablet 20 mg PO DAILY Rx Instructions: 20 mg PO see specfific directions; take 20mg tablet in am and then 8 hours later take 10mg (1/2 20mg tablet) diclofenac sodium [Voltaren Arthritis Pain] 1 % Gel 4 g EXT QID Qty: 100 0RF Discharge Orders: Discharge Order (Routine); Ordered 08/21/22 Ordered By: Justen Portillo Admission Data Admit Date/Time: 08/19/22 11:21 Attending Provider: John De Oliveira Admit Provider: Alfredo Steele Primary Care Provider: Edwin Valdez Other Providers: Alfredo Steele Other Interventions: Discharge Summary Assessment (RN) Last Done: 08/21/22 17:02 Resident Activity Tracking Resident Involvement: Resident Care Provided Care Provided: Adult Hospital Medicine
== END 2022-08-21 18:05 | disposition home or self-care (01) | DRG 291 ==
LOC: ED 09:41 → SUATTDRO 11:21 → 2W 11:21

== ENCOUNTER 2022-09-03 13:32 | Inpatient (IN) ==
[2022-09-03] MEDS ORDERED: STAT IV Infusion **Titration per Protocol STA (13:39)
[2022-09-03] MEDS ORDERED: dilTIAZem HCL 125 MG in DEXTROSE 5% 100 ML IV SCH (13:45)
[2022-09-03] MEDS ORDERED: methylPREDNISolone 125 MG/2 ML VIAL IV STA (13:53)
--- NOTE | 2022-09-03 13:57 | XRay Report ---
SINGLE VIEW CHEST CLINICAL HISTORY: Atypical chest pain. FINDINGS: 2 AP, portable, upright chest radiographs are compared to study dated 08/19/2022. Correlatio n is made with chest CT dated 02/27/2022. The heart is enlarged noting atherosclerotic calcification o f the thoracic aorta. There is prominence of the pulmonary vasculature. Emphysema and chronic interst itial thickening is similar to previous. The lungs and pleural spaces are clear noting bibasilar scar ring/atelectasis. No pneumothorax is seen. The skeletal structures are osteopenic. The bony thorax is grossly intact. IMPRESSION: 1. Cardiomegaly and emphysema with prominence of the pulmonary vasculature. Correlate clinically for evidence of congestive failure. 2. No airspace consolidation or large pleural effusion is identified. ACT 112: Negative or not required by law. Electronically signed by: Jp Luna M.D. 09/03/2022 1:55 PM
--- NOTE | 2022-09-03 14:28 | Emergency Department Note ---
History of Present Illness General Chief Complaint: Shortness of Breath/Dyspnea Time Seen by Provider: 09/03/22 13:34 History of Present Illness Provider Complaint: shortness of breath Onset (ago): day(s) (1) Severity: severe Consistency/Duration: + progressively worsening Relieved By: + oxygen, + upright position and + other (Nitroglycerin and CPAP by EMS) Exacerbated By: + lying flat, + exertion and + coughing Context: no trauma/injury Known history of: COPD, asthma and congestive heart failure Associated symptoms: + cough, + orthopnea and + chest congestion; no chest pain, no fever, no polyuria or no palpitations Treatment prior to arrival: NIPPV (CPAP by EMS), nitroglycerin (0.4 mg of sublingual nitroglycerin x3) and other (Cardizem 15 mg IV push for A. fib RVR) HPI Narrative: Patient presents via EMS. Patient was hypertensive and hypoxic initially. There were rales bilaterally per EMS. EMS gave nitroglycerin sublingual nitro 0 .4 mg x 3. Patient's heart rate was between 140-170 in atrial fibrillation was given Cardizem 15 mg IV push ordered by me. Patient started on CPAP ordered by me. EMS reports that the patient's heart rate did improve with the Cardizem and her breathing did improve with the sublingual nitroglycerin and CPAP. Patient last took her metoprolol last night. Home Medications Medication Instructions Recorded Confirmed Type naloxone 4 mg/actuation nasal 4 mg intranasal DIRECTED PRN 06/13/21 09/03/22 History spray (Narcan) OVERSEDATION diclofenac sodium 1 % topical gel 4 g EXT QID #100 grams 11/18/21 09/03/22 Rx (Voltaren Arthritis Pain) aspirin 81 mg tablet,delayed 81 mg PO QAM #90 tabs 02/06/22 09/03/22 Rx release (Rocio Low Dose Aspirin) ondansetron 4 mg disintegrating 4 mg PO Q6H PRN NAUSEA/VOMITING 02/06/22 09/03/22 Rx tablet #20 tabs furosemide 20 mg tablet 20 mg PO DAILY PRN edema #30 tabs 05/15/22 09/03/22 Rx albuterol sulfate 90 mcg/actuation 2 inh inhalation DAILY #18 grams 05/24/22 09/03/22 Rx aerosol inhaler (ProAir HFA) hydrocortisone 20 mg tablet 40 mg PO BID PRN see specific 05/24/22 09/03/22 Rx directions #90 tabs Advair Diskus 250 mcg-50 mcg/dose 1 inh inhalation BID #60 ea 05/25/22 09/03/22 Rx powder for inhalation (fluticasone propion-salmeterol) famotidine 20 mg tablet 20 mg PO BID #90 tabs 07/13/22 09/03/22 Rx albuterol sulfate 2.5 mg/3 mL 2.5 mg (3 mL) inhalation Q6H #90 mL 08/02/22 09/03/22 Rx (0.083 %) solution for nebulization ipratropium 0.5 mg-albuterol 3 mg 3 ml inhalation Q6H PRN wheezing 08/02/22 09/03/22 Rx (2.5 mg base)/3 mL nebulization #90 mL soln pantoprazole 40 mg tablet,delayed 40 mg PO BID #90 tabs 08/10/22 09/03/22 Rx release hydrocortisone 20 mg tablet 20 mg PO DAILY 08/19/22 09/03/22 History sennosides 8.6 mg tablet (Senokot) 8.6 mg PO BID 08/19/22 09/03/22 History apixaban 5 mg tablet (Eliquis) 5 mg PO BID 30 days #60 tabs 08/21/22 09/03/22 Rx metoprolol succinate 25 mg 25 mg PO DAILY 30 days #30 tabs 08/21/22 09/03/22 Rx tablet,extended release 24 hr (Toprol XL) oxycodone 10 mg tablet 10 mg PO Q6H PRN pain #180 tabs 08/23/22 09/03/22 Rx atorvastatin 40 mg tablet 40 mg PO DAILY 08/29/22 09/03/22 History fludrocortisone 0.1 mg tablet 0.1 mg PO DAILY 08/29/22 09/03/22 History nicotine 14 mg/24 hr daily 1 patch transdermal Q24H 2 weeks 08/29/22 09/03/22 Rx transdermal patch (Nicoderm CQ) #14 ea sacubitril 24 mg-valsartan 26 mg 1 tab PO BID 30 days #60 tabs 08/29/22 09/03/22 Rx tablet (Entresto) Allergies Allergy/AdvReac Type Severity Reaction Status Date / Time No Known Allergies Allergy Verified 09/03/22 13:53 Past Med/Surg History Medical History Acute renal failure BEV (acute kidney injury) Asthma PT STATES TAKES RESCUE INHALER DAILY Carotid stenosis, left S/P L CEA (02/18/20) (Prior to CEA patient had 80% LICA stenosis ) Cerebral aneurysm Per records, pt unaware No significant aneurysm noted with head CTA and brain MRI from 01/2020 CKD (chronic kidney disease) stage III COPD (chronic obstructive pulmonary disease) CVA (cerebral vascular accident) CVA 02/11/20- no residual effects, follows with [place] neurology, patient was on plavix until ~1 month after left CEA surgery, now on ASA 81mg Depression with anxiety Elevated troponin Elevated troponin GERD (gastroesophageal reflux disease) History of Meniere's disease History of prediabetes HGBA1C 6.1% on 01/28/21 History of revision of total replacement of right hip joint 03/25/21 - [facility]; explantation old hardware, wound vac placement. History of septic shock 03/2021 - due to septic R hip; 04/2021 - again due to septic R hip - hospitalized [facility] each admission. Pseudomonas, proteus, oj albicans. Hyperlipidemia Hypertension Osteoarthritis Pulmonary emboli RBBB SOB (shortness of breath) Tobacco use disorder Surgical History H/O carotid endarterectomy Left CEA: 02/18/20: Grade view 1 with head lift, MAC#3, ETT 7.0 at [facility] History of appendectomy History of bilateral tubal ligation History of brain surgery 5 years ago (Meniere's treatment/[facility]) History of History of cataract surgery R/L History of section x1 History of cholecystectomy History of cholecystectomy History of colonoscopy History of esophagogastroduodenoscopy (EGD) History of incision and drainage right hip - multiple I/D's, 03/2021-04/2021; [facility]. History of tonsillectomy History of tooth extraction History of total hip arthroplasty RT> with repair S/P carotid endarterectomy Status post revision of total hip replacement (~01/2021) Family History Mother Diabetes Family history of diabetes mellitus Sister Diabetes Family history of diabetes mellitus Arterial thrombosis Amputation of leg Father Heart disease Lung disease Other No family history of adverse response to anesthesia Denies family history of Ovarian cancer Prostate cancer Myocardial infarction Breast cancer Colorectal cancer Social History Smoking Status: Former smoker Tobacco Type: Cigarettes Age Started Using Tobacco: 17; Age Quit Using Tobacco: 65; packs per day: 1; Second Hand Exposure: Yes; Hx Alcohol Use: No Hx Substance Use: Yes Last Used Substance: Days (ago) Last Used Substance Other:: 08/31/2021 Substance Use Type Other:: daily use Preferred Language: Mozambican Communication Ability: Effective Visual Impairment: No Limitations Hearing Ability: Normal Route [employer] Required: No Beliefs That Will Affect Care: None marital status: Unknown Current Living Situation: Alone Current Living Situation Comment: Son staying with mother current occupational status: retired 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 How many Children do You have: 2 How many Children do You have Comment: 1 child from suicide Feels Safe at Home: Yes Childhood Exposure to Second-Hand Smoke: Yes Dental Care, Regularly: No Physical Activity Frequency: Does not Exercise Seatbelt Use: always Sunscreen Use: No Assistive Devices: Hospital Bed, Nebulizer, Walker and Wheelchair Review of Systems A total of 10 systems reviewed and were otherwise negative Physical Exam Vital Signs: Vital Signs - 24 hr 09/03/22 13:57 09/03/22 14:11 09/03/22 14:11 Temperature Temperature Source Pulse Rate 150 H Pulse Rate [Right Finger] Pulse Rhythm Pulse Strength Respiratory Rate 27 H Respiratory Effort / Characteristics Spontaneous Labore d Spontaneous Short of Breath SOB on E xertion Respiratory Depth Normal Respiratory Patter n Rapid/Shallow Blood Pressure Blood Pressure [Ri ght Arm] Blood Pressure Maggi n Blood Pressure Maggi n [Right Arm] Blood Pressure Pos ition Pulse Oximetry 100 Oxygen Delivery Me thod CPAP BiPAP Fraction of Inspir ed Oxygen 35 60 Sepsis Recent Feve r Within 48 Hours Sepsis New/Unexpla ined Change in Men tracey Status Sepsis Action Take n by Nursing 09/03/22 14:11 09/03/22 13:30 09/03/22 15:04 Temperature 36.8 C Temperature Source Oral Pulse Rate 132 H 122 H Pulse Rate [Right Finger] 127 H Pulse Rhythm Irregular Regular Pulse Strength Normal Respiratory Rate 22 28 H 29 H Respiratory Effort / Characteristics Spontaneous Respiratory Depth Shallow Respiratory Patter n Blood Pressure 138/79 Blood Pressure [Ri ght Arm] 123/85 Blood Pressure Maggi n 98 Blood Pressure Maggi n [Right Arm] 97 Blood Pressure Pos ition Lying Pulse Oximetry 98 97 Oxygen Delivery Me thod BiPAP CPAP BiPAP Fraction of Inspir ed Oxygen Sepsis Recent Feve r Within 48 Hours No Sepsis New/Unexpla ined Change in Men tracey Status N/A Sepsis Action Take n by Nursing No Action Required Physical Exam: Physical Exam HENT: Exam performed. -Head: Normocephalic and atraumatic. -Right Ear: External ear normal. No mastoid tenderness. -Left Ear: External ear normal. No mastoid tenderness. -Mouth/Throat: The oropharynx is clear and moist. No trismus in the jaw. No dental abscesses or uvula swelling. No oropharyngeal exudate or tonsillar abscesses. EYES: Conjunctivae and EOM are normal. Pupils are equal, round, and reactive to light. Right eye exhibits no discharge. Left eye exhibits no discharge. No scleral icterus. NECK: Normal range of motion. Neck supple. No JVD present. CV: Tachycardic rate, irregular rhythm, normal heart sounds and intact distal pulses. Palpable radial pulses bue. PULM/CHEST: Rales bilaterally. ABD: The abdomen is soft. MUSC/SKEL: 2+ pitting edema of the bilateral lower extremities. NEURO: Motor and sensation grossly intact. Course Course 1334: The patient was evaluated in room A4. A complete history and physical exam was performed Cardiac monitoring: An order was placed for continuous cardiac monitoring. The monitor shows a rate of 120-130 with afib rhythm Patient transition from CPAP to BiPAP. Patient will be placed on Cardizem drip. 1628: Vital signs stable on Cardizem drip and BiPAP. Labs show a white blood cell count of 14. Potassium 2.8. Magnesium 1.6. BNP elevated at 4362. COVID test negative. Chest x-ray shows fluid overload. [facility] held at this time given the patient's hypokalemia. Discussed the case with [facility] hospitalist Dr. Mao who is aware of the patient. Administered Medications Diltiazem HCl 125 mg/ Dextrose 125 mls @ 5 mls/hr IV .Q24H COUNTS INCLUDE 234 BEDS AT THE [facility]; Protocol Stop: 10/03/22 13:44 Last Admin: 09/03/22 14:30 Dose: 5 mg/hr, 5 mls/hr Documented By: TRESSA Co-signed By: OAM Discontinued Medications Methylprednisolone (Methylprednisolone 125 Mg/2 Ml Vial) 125 mg IV NOW STA Stop: 09/03/22 13:54 Last Admin: 09/03/22 14:30 Dose: 125 mg Documented By: TRESSA Medical Decision Making Laboratory Data Result diagrams: 09/03/22 15:18 09/03/22 15:18 Lab Results 09/03/22 09/03/22 09/03/22 Range/Units 15:02 15:18 15:18 WBC 14.01 H (4.8-10.8) K/ul RBC 3.55 L (3.93-5.22) M/uL Hgb 11.4 L (12.0-16.0) g/dl Hct 35.5 (34.1-44.9) % MCV 100.0 (80.0-100.0) fL MCH 32.1 (25.0-34.0) pg MCHC 32.1 (32.0-36.0) g/dL RDW Std Deviation 56.1 H (36.4-46.3) fL RDW Coeff of Crow 15.2 H (11.5-14.5) % Plt Count 182 (130-400) K/uL MPV 10.4 (9.4-12.3) fL Immature Gran % (Auto) 0.9 % Neut % (Auto) 76.0 % Lymph % (Auto) 14.5 % [place] % (Auto) 8.2 % Eos % (Auto) 0.1 % Baso % (Auto) 0.3 % Neut # (Auto) 10.65 H (1.4-6.5) K/uL Lymph # (Auto) 2.03 (1.2-3.4) K/uL [place] # (Auto) 1.15 H (0.24-0.82) K/uL Eos # (Auto) 0.01 (0-0.50) K/uL Baso # (Auto) 0.04 (0-0.2) K/uL Immature Gran # (Auto) 0.13 H (0.00-0.02) K/uL PT (9.0-12.0) Seconds INR (0.9-1.1) APTT (21.0-31.0) Seconds PTT Ratio ABG pH (7.35-7.45) ABG pCO2 (35-46) mmHg ABG pO2 (80-95) mmHg ABG HCO3 (19-24) mmol/L ABG O2 Saturation (90-95) % ABG Base Excess (-9-1.8) mEq/L Theo Test (Pos) Oxygen Given Sodium (136-145) mmol/L Potassium (3.5-5.1) mmol/L Chloride (98-107) mmol/L Carbon Dioxide (21-32) mmol/L Anion Gap (3-11) BUN (6-23) mg/dl Creatinine (0.6-1.2) mg/dl Est Cr Clr Drug Dosing ml/min Est GFR ( Amer) ml/min Est GFR (Non-Af Amer) ml/min BUN/Creatinine Ratio (10-20) Glucose (70-99(Fasting)) mg/dl Calcium (8.5-10.1) mg/dl Magnesium (1.7-2.4) mg/dl B-Natriuretic Peptide 4362 H (0-100) pg/ml Lipase (11-82) U/L SARS-CoV-2, RNA, NAAT NEGATIVE (NEGATIVE) 09/03/22 09/03/22 09/03/22 Range/Units 15:18 15:18 15:18 WBC (4.8-10.8) K/ul RBC (3.93-5.22) M/uL Hgb (12.0-16.0) g/dl Hct (34.1-44.9) % MCV (80.0-100.0) fL MCH (25.0-34.0) pg MCHC (32.0-36.0) g/dL RDW Std Deviation (36.4-46.3) fL RDW Coeff of Crow (11.5-14.5) % Plt Count (130-400) K/uL MPV (9.4-12.3) fL Immature Gran % (Auto) % Neut % (Auto) % Lymph % (Auto) % [place] % (Auto) % Eos % (Auto) % Baso % (Auto) % Neut # (Auto) (1.4-6.5) K/uL Lymph # (Auto) (1.2-3.4) K/uL [place] # (Auto) (0.24-0.82) K/uL Eos # (Auto) (0-0.50) K/uL Baso # (Auto) (0-0.2) K/uL Immature Gran # (Auto) (0.00-0.02) K/uL PT 11.6 (9.0-12.0) Seconds INR 1.1 (0.9-1.1) APTT 28.2 (21.0-31.0) Seconds PTT Ratio 1.0 ABG pH (7.35-7.45) ABG pCO2 (35-46) mmHg ABG pO2 (80-95) mmHg ABG HCO3 (19-24) mmol/L ABG O2 Saturation (90-95) % ABG Base Excess (-9-1.8) mEq/L Theo Test (Pos) Oxygen Given Sodium 143 (136-145) mmol/L Potassium 2.8 L (3.5-5.1) mmol/L Chloride 101 (98-107) mmol/L Carbon Dioxide 35 H (21-32) mmol/L Anion Gap 7 (3-11) BUN 18 (6-23) mg/dl Creatinine 0.81 (0.6-1.2) mg/dl Est Cr Clr Drug Dosing 71.0 ml/min Est GFR ( Amer) 86.5 ml/min Est GFR (Non-Af Amer) 74.6 ml/min BUN/Creatinine Ratio 22.2 H (10-20) Glucose 160 H (70-99(Fasting)) mg/dl Calcium 7.9 L (8.5-10.1) mg/dl Magnesium 1.6 L Cancelled (1.7-2.4) mg/dl B-Natriuretic Peptide (0-100) pg/ml Lipase 6 L (11-82) U/L SARS-CoV-2, RNA, NAAT (NEGATIVE) 09/03/22 Range/Units 15:42 WBC (4.8-10.8) K/ul RBC (3.93-5.22) M/uL Hgb (12.0-16.0) g/dl Hct (34.1-44.9) % MCV (80.0-100.0) fL MCH (25.0-34.0) pg MCHC (32.0-36.0) g/dL RDW Std Deviation (36.4-46.3) fL RDW Coeff of Crow (11.5-14.5) % Plt Count (130-400) K/uL MPV (9.4-12.3) fL Immature Gran % (Auto) % Neut % (Auto) % Lymph % (Auto) % [place] % (Auto) % Eos % (Auto) % Baso % (Auto) % Neut # (Auto) (1.4-6.5) K/uL Lymph # (Auto) (1.2-3.4) K/uL [place] # (Auto) (0.24-0.82) K/uL Eos # (Auto) (0-0.50) K/uL Baso # (Auto) (0-0.2) K/uL Immature Gran # (Auto) (0.00-0.02) K/uL PT (9.0-12.0) Seconds INR (0.9-1.1) APTT (21.0-31.0) Seconds PTT Ratio ABG pH 7.51 H* (7.35-7.45) ABG pCO2 46 (35-46) mmHg ABG pO2 98 H (80-95) mmHg ABG HCO3 37 H (19-24) mmol/L ABG O2 Saturation 98.9 H (90-95) % ABG Base Excess 12.1 H (-9-1.8) mEq/L Theo Test Pos (Pos) Oxygen Given BIPAP FIO2 35 Sodium (136-145) mmol/L Potassium (3.5-5.1) mmol/L Chloride (98-107) mmol/L Carbon Dioxide (21-32) mmol/L Anion Gap (3-11) BUN (6-23) mg/dl Creatinine (0.6-1.2) mg/dl Est Cr Clr Drug Dosing ml/min Est GFR ( Amer) ml/min Est GFR (Non-Af Amer) ml/min BUN/Creatinine Ratio (10-20) Glucose (70-99(Fasting)) mg/dl Calcium (8.5-10.1) mg/dl Magnesium (1.7-2.4) mg/dl B-Natriuretic Peptide (0-100) pg/ml Lipase (11-82) U/L SARS-CoV-2, RNA, NAAT (NEGATIVE) Imaging Data Radiologist's Impression: Chest X-Ray 09/03/22 13:35 SINGLE VIEW CHEST CLINICAL HISTORY: Atypical chest pain. FINDINGS: 2 AP, portable, upright chest radiographs are compared to study dated 08/19/2022. Correlation is made with chest CT dated 02/27/2022. The heart is enlarged noting atherosclerotic calcification of the thoracic aorta. There is prominence of the pulmonary vasculature. Emphysema and chronic interstitial thickening is similar to previous. The lungs and pleural spaces are clear noting bibasilar scarring/atelectasis. No pneumothorax is seen. The skeletal structures are osteopenic. The bony thorax is grossly intact. IMPRESSION: 1. Cardiomegaly and emphysema with prominence of the pulmonary vasculature. Correlate clinically for evidence of congestive failure. 2. No airspace consolidation or large pleural effusion is identified. ACT 112: Negative or not required by law. Electronically signed by: Jp Luna M.D. 09/03/2022 1:55 PM ECG Data Interpretation: Atrial fibrillation with a rate of 120. QRS [address] elevation or ST depression. PVCs present. MDM Narrative Vital signs stable on Cardizem drip and BiPAP. Labs show a white blood cell count of 14. Potassium 2.8. Magnesium 1.6. BNP elevated at 4362. COVID test negative. Chest x-ray shows fluid overload. [facility] Las[facility] held at this time given the patient's hypokalemia. [facility] who is aware of the patient. Impression & Plan CHF (congestive heart failure), Atrial fibrillation with RVR, Hypokalemia Critical Care Time Critical Care Time: Yes Total Critical Care Time: 63 I have personally spent greater than 63 minutes of critical care time in the direct management of this patient. This includes bedside care, interpretation of diagnostic studies, and testing, discussion with consultants, patient, and family members, and other required patient management activities. This 63 minutes is in excess of all separately billable procedures. Discharge Plan Visit Data Chief Complaint: Shortness of Breath/Dyspnea ED Provider: Nomi Stroud Discharge Problem: CHF (congestive heart failure), Atrial fibrillation with RVR, Hypokalemia Patient Disposition: Admitted As Inpatient Forms Stand Alone Forms: [facility] Prescriptions Prescriptions: No Action aspirin [Rocio Low Dose Aspirin] 81 mg tablet,delayed release (DR/EC) 81 mg PO QAM Qty: 90 3RF ondansetron 4 mg tablet,disintegrating 4 mg PO Q6H PRN (Reason: NAUSEA/VOMITING) Qty: 20 1RF hydrocortisone 20 mg tablet 40 mg PO BID PRN (Reason: see specific directions) Qty: 90 2RF Rx Instructions: During times of stress only, take 40mg in the morning and then 20mg 8 hours later. albuterol sulfate [ProAir HFA] 90 mcg/actuation HFA aerosol inhaler 2 inh INHALATION DAILY Qty: 18 5RF fluticasone propion-salmeterol [Advair Diskus] 250-50 mcg/dose blister with device 1 inh inhalation BID Qty: 60 11RF famotidine 20 mg tablet 20 mg PO BID Qty: 90 3RF pantoprazole 40 mg tablet,delayed release (DR/EC) 40 mg PO BID Qty: 90 3RF oxycodone 10 mg tablet 10 mg PO Q6H PRN (Reason: pain) Qty: 180 0RF Narcan 4 mg/actuation spray,non-aerosol 4 mg intranasal DIRECTED PRN (Reason: OVERSEDATION) Rx Instructions: spray 1 dose into ONE nostril; alternate nostrils w each dose until help arrives furosemide 20 mg tablet 20 mg PO DAILY PRN (Reason: edema) Qty: 30 2RF ipratropium-albuterol 0.5 mg-3 mg(2.5 mg base)/3 mL solution for nebulization 3 ml inhalation Q6H PRN (Reason: wheezing) Qty: 90 3RF albuterol sulfate 2.5 mg /3 mL (0.083 %) solution for nebulization 2.5 mg inhalation Q6H Qty: 90 2RF atorvastatin 40 mg tablet 40 mg PO DAILY fludrocortisone 0.1 mg tablet 0.1 mg PO DAILY Entresto 24-26 mg tablet 1 tab PO BID 30 Days Qty: 60 2RF nicotine [Nicoderm CQ] 14 mg/24 hr patch 24 hour 1 patch transdermal Q24H 14 Days Qty: 14 0RF sennosides [Senokot] 8.6 mg tablet 8.6 mg PO BID hydrocortisone 20 mg tablet 20 mg PO DAILY Rx Instructions: 20 mg PO see specfific directions; take 20mg tablet in am and then 8 hours later take 10mg (1/2 20mg tablet) Eliquis 5 mg Tablet 5 mg PO BID 30 Days Qty: 60 0RF metoprolol succinate [Toprol XL] 25 mg tablet extended release 24 hr 25 mg PO DAILY 30 Days Qty: 30 0RF diclofenac sodium [Voltaren Arthritis Pain] 1 % Gel 4 g EXT QID Qty: 100 0RF Referrals Referrals: Edwin Valdez MD [Primary Care Provider] -
[2022-09-03 15:45] LABS: Basophils # (auto) 0.04 K/uL (0-0.2); Basophils % (auto) 0.3 %; Eosinophils # (auto) 0.01 K/uL (0-0.50); Eosinophils % (auto) 0.1 %; Hematocrit (blood only) 35.5 % (34.1-44.9); Hemoglobin 11.4 g/dl (12.0-16.0); Immature Granulocytes # (auto) 0.13 K/uL (0.00-0.02); Immature Granulocytes % (auto) 0.9 %; Lymphocytes # (auto) 2.03 K/uL (1.2-3.4); Lymphocytes % (auto) 14.5 %; Mean Corpuscular Hemoglobin 32.1 pg (25.0-34.0); Mean Corpuscular Hgb Conc 32.1 g/dL (32.0-36.0); Mean Platelet Volume 10.4 fL (9.4-12.3); Monocytes # (auto) 1.15 K/uL (0.24-0.82); Monocytes % (auto) 8.2 %; Neutrophils # (auto) 10.65 K/uL (1.4-6.5); Platelet Count 182 K/uL (130-400); RDW Coefficient of Variation 15.2 % (11.5-14.5); RDW Standard Deviation 56.1 fL (36.4-46.3); Red Blood Count 3.55 M/uL (3.93-5.22); White Blood Count 14.01 K/ul (4.8-10.8)
[2022-09-03 15:56] LABS: INR 1.1 (0.9-1.1); Partial Thromboplastin Time 28.2 Seconds (21.0-31.0); Prothrombin Time 11.6 Seconds (9.0-12.0)
--- NOTE | 2022-09-03 16:04 | History & Physical Report ---
Date of Service September 03, 2022 Assessment & Plan (1) Multifocal atrial tachycardia: Plan: MAT Initially reported as Franki rodriges with RVR, patient with history reported of Abelardo. zahira reviewed with cardiology. P waves are present but with variable morphology consistent with MAT. - Patient is clinically improved on Cardizem drip, however given reduced EF would prefer cardioselective BB. Patient has not taken her home metoprolol which he tolerates well today. We will give 2.5 metoprolol IV and attempt to down titrate diltiazem drip while treating acute on chronic CHF as noted Patient started on heparin drip then converted to Eliquis on discharge 08/19. Has only been anticoagulated for 15 days Rate was normal 08/29/2022 at transitional care follow-up EKG: Franki rodriges rate 130s on admission, decreased to 117 with Cardizem drip. Similar QRS morphology compared to 08/20/2022 -Would prefer metoprolol, given stability and other issues as noted will continue drip, once stable will give Lasix, and attempt to switch to metoprolol and down titrate Cardizem drip ABG: As below Metabolic alkalosis, secondary respiratory alkalosis Primary metabolic alkalosis with secondary underlying respiratory alkalosis. Suspect hypervent with BiPAP, underlying metabolic alkalosis 2/2 florinef treatment with concurrent hypokalemia. No prior bicarbonate treatment, patient is on low-dose loop diuretic without thiazide. Florinef held, patient switched to CPAP and following SPO2 greater than 90%. We will replete potassium prior to aggressive Lasix therapy Trend every 6 hours Acute on chronic CHF TTE 08/20/2022: EF 40-45%. Mild global hypokinesis of left ventricle. LV SF mildly reduced. LV normal in size. Grade 2 diastolic dysfunction. Adrenal insufficiency Patient on baseline 20 mg, doubled for stress dosing while admitted Started on Entresto as outpatient On Lasix 20 mg as needed for edema as outpatient, dose increase was deferred due to also starting Entresto are on the same side and relatively dry status 08/29/2022 Was pending dobutamine stress echo scheduling and cardiology follow-up as outpatient Troponin elevated to [address] without chest pain or ST segment changes. Suspect demand. Trended ABG obtained bedside. pH 7.51, patient pulling around 440 cc/breath at a rate of 24. [place] body weight approximately 55 kg 6 cc per = ~330ccs. suspect primary metabolic alkalosis due to Florinef treatment with prior respiratory compensation, acutely alkalotic in the setting of BiPAP use. Switch to CPAP. Trend ABG Baseline creatinine less than 1. Patient is hypokalemic, Florinef held, repletion ordered. Will repeat BMP in 2 hours, defer Lasix therapy until above 3.5. Optimize magnesium. Lasix 40 mg daily once potassium >3.5. Continue CPAP at this time COPD Completed a azithromycin/steroid taper this month COPD intensification deferred at transitional care due to suspicion for incompletely controlled underlying heart failure Continue Advair, nebs as needed With sputum change including switch to green/yellow sputum, increased sputum, leukocytosis, and shortness of breath in the last month consistent with COPD exacerbation although patient also recently quit smoking 2 weeks ago and? Increased cough due to ciliary regrowth and clearance. Given ill appearance and QT prolongation on admit will treat conservatively with doxycycline twice daily. Patient was loaded with Methylpred on admission, will stress dose hydrocortisone. Treat fluid exacerbation as above and continue to follow No PFTs available for review Adrenal insufficiency Received methylprednisolone 125 load in ER Previously on hydrocortisone 20 mg Was on fludrocortisone which was discontinued at a follow-up visit 08/02, then resumed at follow-up 08/29 visit but unclear if patient required this. BP was 1 30/80, although Entresto was started at the time. We will hold for now and if not clarify with PCP/endocrine. Patient reports she is pending a follow-up with endocrinology as outpatient. Does have concurrent hypokalemia and alkalosis, this is been held and hydrocortisone has been continued Tobacco use Emphasized cessation Nicotine patch Hypertension Continue Entresto Hyperlipidemia Continue statin GERD Continue PPI, H2 Carotid artery stenosis, chronic cerebral ischemia Continue aspirin DVT prophylaxis: Anticoagulated Diet: Heart healthy, low-sodium. Disposition: PCU CODE STATUS: Full code (2) Hypokalemia: (3) CHF exacerbation: (4) Peripheral edema: (5) History of pulmonary embolism: (6) Hypomagnesemia: (7) Asthma: (8) COPD (chronic obstructive pulmonary disease): (9) History of brain surgery: (10) Hypertension: (11) Hyperlipidemia: (12) GERD (gastroesophageal reflux disease): (13) Carotid artery stenosis: (14) Chronic cerebral ischemia: (15) History of revision of total replacement of right hip joint: (16) Chronic renal failure, stage 3b: History of Present Illness Primary Care Provider: Edwin Valdez MD Radha Tello is a 67-year-old female with a past medical history of CHF with EF 40- 45% at baseline, A. fib on anticoagulation with Eliquis, adrenal insufficiency, depression, asthma, COPD, pulmonary nodules, GERD, carotid stenosis, chronic cerebral ischemia, CKD 3B, impaired fasting glucose recently admitted 08/19- 08/21 for A. fib with RVR and CHF who read presents with A. fib RVR, acute on chronic CHF with clinical fluid overload and acute respiratory failure. Seen the bedside. She reports that about 4 days ago she began having progressively worsening shortness of breath with some wheezing. She also notes a increase in sputum production which has changed to a yellowish-greenish color which is unusual for her. She reports she still has leg swelling, but her leg swelling is actually better than baseline and has gradually improved with outpatient Lasix and treatment. She reports she is not sure if she has shortness of breath laying flat because she has not tried since getting out of the hospital, previously this made her very short of breath. She notes that she tries to have a low-salt diet and generally cooks without salt, but did have some deli meat and tomato soup yesterday. She denies chest pain at any point, and denies chest pressure at any point. Does not feel palpitations or heart racing. Denies syncope and presyncope. She endorses a past history of tobacco use which she stopped this month, last cigarette was 08/18. She denies fever, chills, sweats, abdominal pain, nausea, vomiting, diarrhea, constipation, bright red blood per rectum, and melena. Her surrogate decision maker would be her niece Natalia, and confirms full code. Would like it nicotine patch while here. Denies recent alcohol use. Medical History: Reviewed Medications: Reviewed Surgical History: Reviewed Allergies: Reviewed Social History: Recently quit smoking, no etoh Code Status: Full Allergies Allergy/AdvReac Type Severity Reaction Status Date / Time No Known Allergies Allergy Verified 09/03/22 13:53 Home Medications Medication Instructions Recorded Confirmed Type naloxone 4 mg/actuation nasal 4 mg intranasal DIRECTED PRN 06/13/21 09/03/22 History spray (Narcan) OVERSEDATION diclofenac sodium 1 % topical gel 4 g EXT QID #100 grams 11/18/21 09/03/22 Rx (Voltaren Arthritis Pain) aspirin 81 mg tablet,delayed 81 mg PO QAM #90 tabs 02/06/22 09/03/22 Rx release (Rocio Low Dose Aspirin) ondansetron 4 mg disintegrating 4 mg PO Q6H PRN NAUSEA/VOMITING 02/06/22 09/03/22 Rx tablet #20 tabs furosemide 20 mg tablet 20 mg PO DAILY PRN edema #30 tabs 05/15/22 09/03/22 Rx albuterol sulfate 90 mcg/actuation 2 inh inhalation DAILY #18 grams 05/24/22 09/03/22 Rx aerosol inhaler (ProAir HFA) hydrocortisone 20 mg tablet 40 mg PO BID PRN see specific 05/24/22 09/03/22 Rx directions #90 tabs Advair Diskus 250 mcg-50 mcg/dose 1 inh inhalation BID #60 ea 05/25/22 09/03/22 Rx powder for inhalation (fluticasone propion-salmeterol) famotidine 20 mg tablet 20 mg PO BID #90 tabs 07/13/22 09/03/22 Rx albuterol sulfate 2.5 mg/3 mL 2.5 mg (3 mL) inhalation Q6H #90 mL 08/02/22 09/03/22 Rx (0.083 %) solution for nebulization ipratropium 0.5 mg-albuterol 3 mg 3 ml inhalation Q6H PRN wheezing 08/02/22 09/03/22 Rx (2.5 mg base)/3 mL nebulization #90 mL soln pantoprazole 40 mg tablet,delayed 40 mg PO BID #90 tabs 08/10/22 09/03/22 Rx release hydrocortisone 20 mg tablet 20 mg PO DAILY 08/19/22 09/03/22 History sennosides 8.6 mg tablet (Senokot) 8.6 mg PO BID 08/19/22 09/03/22 History apixaban 5 mg tablet (Eliquis) 5 mg PO BID 30 days #60 tabs 08/21/22 09/03/22 Rx metoprolol succinate 25 mg 25 mg PO DAILY 30 days #30 tabs 08/21/22 09/03/22 Rx tablet,extended release 24 hr (Toprol XL) oxycodone 10 mg tablet 10 mg PO Q6H PRN pain #180 tabs 08/23/22 09/03/22 Rx atorvastatin 40 mg tablet 40 mg PO DAILY 08/29/22 09/03/22 History fludrocortisone 0.1 mg tablet 0.1 mg PO DAILY 08/29/22 09/03/22 History nicotine 14 mg/24 hr daily 1 patch transdermal Q24H 2 weeks 08/29/22 09/03/22 Rx transdermal patch (Nicoderm CQ) #14 ea sacubitril 24 mg-valsartan 26 mg 1 tab PO BID 30 days #60 tabs 08/29/22 09/03/22 Rx tablet (Entresto) Past Med/Surg History Medical History Acute renal failure BEV (acute kidney injury) Asthma PT STATES TAKES RESCUE INHALER DAILY Carotid stenosis, left S/P L CEA (02/18/20) (Prior to CEA patient had 80% LICA stenosis ) Cerebral aneurysm Per records, pt unaware No significant aneurysm noted with head CTA and brain MRI from 01/2020 CKD (chronic kidney disease) stage III COPD (chronic obstructive pulmonary disease) CVA (cerebral vascular accident) CVA 02/11/20- no residual effects, follows with [place] neurology, patient was on plavix until ~1 month after left CEA surgery, now on ASA 81mg Depression with anxiety Elevated troponin Elevated troponin GERD (gastroesophageal reflux disease) History of Meniere's disease History of prediabetes HGBA1C 6.1% on 01/28/21 History of revision of total replacement of right hip joint 03/25/21 - [facility]; explantation old hardware, wound vac placement. History of septic shock 03/2021 - due to septic R hip; 04/2021 - again due to septic R hip - hospitalized [facility] each admission. Pseudomonas, proteus, oj albicans. Hyperlipidemia Hypertension Osteoarthritis Pulmonary emboli RBBB SOB (shortness of breath) Tobacco use disorder Surgical History H/O carotid endarterectomy Left CEA: 02/18/20: Grade view 1 with head lift, MAC#3, ETT 7.0 at [facility] History of appendectomy History of bilateral tubal ligation History of brain surgery 5 years ago (Meniere's treatment/[facility]) History of History of cataract surgery R/L History of section x1 History of cholecystectomy History of cholecystectomy History of colonoscopy History of esophagogastroduodenoscopy (EGD) History of incision and drainage right hip - multiple I/D's, 03/2021-04/2021; [facility]. History of tonsillectomy History of tooth extraction History of total hip arthroplasty RT> with repair S/P carotid endarterectomy Status post revision of total hip replacement (~01/2021) Family History Mother Diabetes Family history of diabetes mellitus Sister Diabetes Family history of diabetes mellitus Arterial thrombosis Amputation of leg Father Heart disease Lung disease Other No family history of adverse response to anesthesia Denies family history of Ovarian cancer Prostate cancer Myocardial infarction Breast cancer Colorectal cancer Social History Smoking Status: Former smoker Tobacco Type: Cigarettes Age Started Using Tobacco: 17; Age Quit Using Tobacco: 65; packs per day: 1; Second Hand Exposure: Yes; Hx Alcohol Use: No Hx Substance Use: Yes Last Used Substance: Days (ago) Last Used Substance Other:: 08/31/2021 Substance Use Type Other:: daily use Preferred Language: Vietnamese Communication Ability: Effective Visual Impairment: No Limitations Hearing Ability: Normal Certified Pathology Assistant Required: No Beliefs That Will Affect Care: None marital status: Unknown Current Living Situation: Alone Current Living Situation Comment: Son staying with mother current occupational status: retired 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 NAD. Cooperative. HEENT: Atraumatic, normocephalic. Vision/hearing grossly intact. EOM intact. Pulm: Diffuse crackles greatest in the right middle lobe and right lower lobe, scattered wheezes without rales. No rhonchi. Symmetrical chest rise. No increased work of breathing. On BiPAP Cardiac: Irregularly irregular, [place] [address] at bedside. Radial pulses intact and symmetrical. Abdominal: Nontender, nondistended, soft. BS present. Extremities: Pitting edema to the knees bilaterally. Sensation intact in hands and feet without asymmetry. Results & Data Results & Data ([facility]) Vital Signs (Past 12 Hours) Vital Signs Temp Pulse Pulse Resp BP BP Pulse Ox 09/03/22 15:04 127 H 29 H 123/85 09/03/22 13:30 36.8 C 122 H 28 H 138/79 97 09/03/22 14:11 132 H 22 98 09/03/22 14:11 09/03/22 14:11 09/03/22 13:57 150 H 27 H 100 O2 Del Method FiO2 09/03/22 15:04 BiPAP 09/03/22 13:30 CPAP 09/03/22 14:11 BiPAP 09/03/22 14:11 BiPAP 60 09/03/22 14:11 CPAP 09/03/22 13:57 35 PG Care Time/CCT Total # of Minutes Spent Total Time Spent with Patient: Total time spent is greater than 50% in coordination of care (as documented) at patient's floor/unit and/or counseling patient: Coding Level of Care Code 03876 Initial Inpt Care Lvl 3 Diagnoses Multifocal atrial tachycardia I47.1 Hypokalemia E87.6 CHF exacerbation I50.9 Peripheral edema R60.9 History of pulmonary embolism Z86.711 Hypomagnesemia E83.42 Asthma J45.909 COPD (chronic obstructive pulmonary disease) J42 COPD type: chronic bronchitis Chronic bronchitis type: unspecified History of brain surgery Z98.890 Hypertension I10 Hyperlipidemia E78.5 GERD (gastroesophageal reflux disease) K21.9 Carotid artery stenosis I65.29 Chronic cerebral ischemia I67.82 History of revision of total replacement of right hip joint Z96.641 Chronic renal failure, stage 3b N18.32 (1) COPD (chronic obstructive pulmonary disease) COPD type: chronic bronchitis Chronic bronchitis type: unspecified Qualified Code(s): J42 - Unspecified chronic bronchitis
[2022-09-03 16:09] LABS: Base Excess ABG 12.1 mEq/L (-9-1.8); HCO3 ABG 37 mmol/L (19-24); Oxygen Saturation ABG 98.9 % (90-95); PCO2 ABG 46 mmHg (35-46); PO2 ABG 98 mmHg (80-95)
[2022-09-03 16:12] LABS: Allen Test Pos (Pos); pH ABG 7.51 (7.35-7.45)
[2022-09-03 16:22] LABS: BUN Creatinine Ratio 22.2 (10-20); Calcium 7.9 mg/dl (8.5-10.1); Est GFR (African American) 86.5 ml/min; Est GFR (Non-African American) 74.6 ml/min; Magnesium 1.6 mg/dl (1.7-2.4); Potassium 2.8 mmol/L (3.5-5.1)
[2022-09-03] MEDS ORDERED: POTASSIUM CHLORIDE 10 MEQ TABCR PO STA (16:25)
[2022-09-03 16:29] LABS: Troponin I High Sensitivity 498.2 pg/ml (0-14)
[2022-09-03] MEDS ORDERED: MAGNESIUM SULFATE / D5W 1 GM/100 ML BAG IV STA (16:29)
[2022-09-03] MEDS ORDERED: MAGNESIUM OXIDE 400 MG TAB PO STA (16:41)
[2022-09-03 17:13] LABS: Adenovirus PCR Not Detected (NotDetected); Bordetella parapertussis PCR Not Detected (NotDetected); Bordetella pertussis PCR Not Detected (NotDetected); Chlamydia pneumoniae PCR Not Detected (NotDetected); Coronavirus 229E PCR Not Detected (NotDetected); Coronavirus CoV-2 (COVID19)PCR Not Detected (NotDetected); Coronavirus HKU1 PCR Not Detected (NotDetected); Coronavirus NL63 PCR Not Detected (NotDetected); Coronavirus OC43PCR Not Detected (NotDetected); Human Metapneumovirus PCR Not Detected (NotDetected); Influenza A PCR Not Detected (NotDetected); Influenza B PCR Not Detected (NotDetected); Mycoplasma pneumoniae PCR Not Detected (NotDetected); Parainfluenza Virus 1 PCR Not Detected (NotDetected); Parainfluenza Virus 2 PCR Not Detected (NotDetected); Parainfluenza Virus 3 PCR Not Detected (NotDetected); Parainfluenza Virus 4 PCR Not Detected (NotDetected); Respiratory Syncytial VirusPCR Not Detected (NotDetected); Rhinovirus/Enterovirus PCR Not Detected (NotDetected)
[2022-09-03 18:31] LABS: BUN Creatinine Ratio 20.4 (10-20); Calcium 8.3 mg/dl (8.5-10.1); Creatinine Clr Calc Pharmacy 61.8 ml/min; Est GFR (African American) 73.2 ml/min; Est GFR (Non-African American) 63.1 ml/min; Potassium 3.2 mmol/L (3.5-5.1)
[2022-09-03] MEDS ORDERED: POLYETHYLENE (MIRALAX) 17 GM PACK PO PRN (19:33)
[2022-09-03] MEDS ORDERED: oxyCODONE HCL IR 5 MG TAB (IMMEDIATE RELEASE) PO PRN (19:33)
[2022-09-03] MEDS ORDERED: ONDANSETRON 4 MG OD TAB PO PRN (19:33)
[2022-09-03] MEDS ORDERED: ALBUT/IPRATROP 3MG/0.5MG NEB 3 ML VIAL INH PRN (19:33)
[2022-09-03] MEDS ORDERED: ACETAMINOPHEN 325 MG TAB PO PRN (19:33)
[2022-09-03] MEDS ORDERED: POTASSIUM CHLORIDE CRTAB 20 MEQ TABCR PO STA (19:38)
[2022-09-03] MEDS ORDERED: METOPROLOL TARTRATE 25 MG TAB PO STA (19:39)
[2022-09-03] MEDS ORDERED: FUROSEMIDE 40 MG/4 ML VIAL IV ONE (19:40)
[2022-09-03 20:09] LABS: Base Excess VBG 10.1 mEq/L; HCO3 VBG 34 mmol/L; PCO2 VBG 43 mmHg (38-50); PO2 VBG 57 mmHg; pH VBG 7.51 (7.36-7.41)
[2022-09-03] MEDS: NICOTINE 14 MG/24 HR PATCH TD SCH (20:13)
[2022-09-03] MEDS: ALBUTEROL 0.083% NEBU SOLN 3 ML VIAL INH SCH ×2 (20:31→23:55)
[2022-09-03] MEDS: FAMOTIDINE 20 MG TAB PO SCH (20:49)
[2022-09-03] MEDS: MAGNESIUM OXIDE 400 MG TAB PO SCH (20:49)
[2022-09-03] MEDS: APIXABAN 5 MG TABLET PO SCH (20:49)
[2022-09-03] MEDS: PANTOprazole 40 MG TAB PO SCH (20:49)
[2022-09-03] MEDS: HYDROCORTISONE 10 MG TAB PO SCH (20:49)
[2022-09-03] MEDS: VALSARTAN/SACUBITRIL 26/24MG TAB PO SCH (20:49)
[2022-09-03] MEDS: SENNA 8.6 MG TAB PO SCH (20:49)
[2022-09-03] MEDS: DOXYCYCLINE HYCLATE 100 MG in DEXTROSE 5% 100 ML IV SCH (20:50)
[2022-09-03] MEDS ORDERED: FUROSEMIDE 40 MG TAB PO PRN (21:00)
[2022-09-03] MEDS ORDERED: POTASSIUM CHLORIDE CRTAB 20 MEQ TABCR PO SCH (21:00)
[2022-09-03 22:45] LABS: Base Excess VBG 10.8 mEq/L; HCO3 VBG 37 mmol/L; Oxygen Saturation VBG 74.6 %; PCO2 VBG 53 mmHg (38-50); PO2 VBG 43 mmHg; pH VBG 7.45 (7.36-7.41)
[2022-09-03 23:09] LABS: BUN Creatinine Ratio 21.7 (10-20); Calcium 7.9 mg/dl (8.5-10.1); Creatinine Clr Calc Pharmacy 60.2 ml/min; Est GFR (African American) 74.2 ml/min; Potassium 3.5 mmol/L (3.5-5.1)
[2022-09-04 03:00] LABS: Basophils # (auto) 0.01 K/uL (0-0.2); Basophils % (auto) 0.1 %; Hematocrit (blood only) 33.7 % (34.1-44.9); Hemoglobin 11.1 g/dl (12.0-16.0); Immature Granulocytes # (auto) 0.06 K/uL (0.00-0.02); Immature Granulocytes % (auto) 0.7 %; Lymphocytes # (auto) 0.82 K/uL (1.2-3.4); Lymphocytes % (auto) 9.5 %; Mean Corpuscular Hemoglobin 32.5 pg (25.0-34.0); Mean Corpuscular Hgb Conc 32.9 g/dL (32.0-36.0); Mean Corpuscular Volume 98.5 fL (80.0-100.0); Mean Platelet Volume 10.6 fL (9.4-12.3); Monocytes % (auto) 2.3 %; Neutrophils # (auto) 7.55 K/uL (1.4-6.5); Neutrophils % (auto) 87.4 %; Platelet Count 183 K/uL (130-400); RDW Coefficient of Variation 14.7 % (11.5-14.5); RDW Standard Deviation 53.3 fL (36.4-46.3); Red Blood Count 3.42 M/uL (3.93-5.22); White Blood Count 8.64 K/ul (4.8-10.8)
[2022-09-04 03:05] LABS: Base Excess VBG 12.1 mEq/L; HCO3 VBG 37 mmol/L; Oxygen Saturation VBG 79.2 %; PCO2 VBG 49 mmHg (38-50); PO2 VBG 47 mmHg; pH VBG 7.49 (7.36-7.41)
[2022-09-04 03:22] LABS: Albumin Globulin Ratio 1.4 (0.9-2); Albumin Level 3.1 gm/dl (3.4-5.0); BUN Creatinine Ratio 24.2 (10-20); Bilirubin,Total 1.5 mg/dl (0.2-1.0); Creatinine Clr Calc Pharmacy 60.9 ml/min; Est GFR (African American) 75.1 ml/min; Est GFR (Non-African American) 64.8 ml/min; Globulin 2.2 gm/dl (2.5-4.0); Potassium 3.8 mmol/L (3.5-5.1); Total Protein 5.3 gm/dl (6.0-8.3)
[2022-09-04] MEDS: ALBUTEROL 0.083% NEBU SOLN 3 ML VIAL INH SCH ×3 (07:09→19:47)
[2022-09-04 07:17] LABS: Base Excess VBG 12.7 mEq/L; HCO3 VBG 38 mmol/L; Oxygen Saturation VBG 89.6 %; PCO2 VBG 50 mmHg (38-50); PO2 VBG 57 mmHg; pH VBG 7.49 (7.36-7.41)
[2022-09-04] MEDS: ASPIRIN 81 MG ECTAB PO SCH (08:39)
[2022-09-04] MEDS: PANTOprazole 40 MG TAB PO SCH ×2 (08:39→20:03)
[2022-09-04] MEDS: VALSARTAN/SACUBITRIL 26/24MG TAB PO SCH ×2 (08:39→20:03)
[2022-09-04] MEDS: MAGNESIUM OXIDE 400 MG TAB PO SCH (08:39)
[2022-09-04] MEDS: HYDROCORTISONE 10 MG TAB PO SCH ×2 (08:39→20:04)
[2022-09-04] MEDS: FUROSEMIDE 40 MG TAB PO SCH (08:39)
[2022-09-04] MEDS: POTASSIUM CHLORIDE CRTAB 20 MEQ TABCR PO SCH ×3 (08:40→20:04)
[2022-09-04] MEDS: ATORVASTATIN 40 MG TAB PO SCH (08:40)
[2022-09-04] MEDS: FAMOTIDINE 20 MG TAB PO SCH ×2 (08:40→20:04)
[2022-09-04] MEDS: APIXABAN 5 MG TABLET PO SCH (08:40)
[2022-09-04] MEDS: SENNA 8.6 MG TAB PO SCH ×2 (08:41→20:04)
[2022-09-04] MEDS: FLUTICASONE/VILANTEROL 100/25MCG 14 PUFFS/INHALER INH SCH (08:42)
[2022-09-04] MEDS: NICOTINE 14 MG/24 HR PATCH TD SCH (08:42)
[2022-09-04] MEDS: DOXYCYCLINE HYCLATE 100 MG in DEXTROSE 5% 100 ML IV SCH (08:51)
[2022-09-04] MEDS ORDERED: METOPROLOL SUCC 25MG EXT REL TAB PO SCH (09:00)
[2022-09-04] MEDS ORDERED: INFLUENZA VACCINE HIGH DOSE PF 65+ 0.7 ML SYR IM ONE (09:00)
[2022-09-04] MEDS ORDERED: PNEUMOCOCCAL POLYSACCHARIDES 25 MCG/0.5 ML VIAL/SYR IM ONE (09:00)
--- NOTE | 2022-09-04 11:30 | Cardiology Consultation ---
Date of Consultation September 04, 2022 Assessment & Plan (1) Multifocal atrial tachycardia: (2) Heart failure with mid-range ejection fraction: (3) Acute on chronic HFrEF (heart failure with reduced ejection fraction): (4) Pulmonary hypertension: (5) Cardiomyopathy: (6) Elevated troponin: Plan ASSESSMENT/PLAN: 1. Multifocal atrial tachycardia: We discussed the diagnosis. When reviewing rhythm strips from telemetry during last hospitalization and ECGs, there was no evidence of atrial fibrillation. She does not require anticoagulation therapy from a cardiology standpoint. Recommend increasing metoprolol succinate to 50 mg daily. 2. Acute on chronic heart failure with midrange EF: She appears hypervolemic. Give another dose of Lasix 40 mg IV x1 now. Increase metoprolol succinate as above. Continue Entresto, which can be titrated as an outpatient as necessary. If recurrent issues with hypokalemia, would recommend spironolactone. We discussed the importance of a low-sodium diet, less than 2000 mg daily and the importance of reading labels. Recommend daily weights. Recommend heart failure program. 3. Cardiomyopathy: May be tachycardia induced. Addressing heart rate and can repeat echo as an outpatient. Does not qualify for ICD for primary prevention. 4. Pulmonary hypertension: Likely multifactorial. She has known COPD after extensive smoking history. She has history of pulmonary embolism, and CHF. This can be reevaluated in the future when felt to be euvolemic, as an outpatient. 5. Elevated troponin: Peak troponin 498, which was on presentation. Likely due to demand ischemia in the setting of tachycardia, CHF, COPD. No angina. T reatment as above. 6. Disposition: Patient care discussed with Dr. Donald of the primary hospitalist service. Can discontinue Eliquis from a cardiology standpoint and if so, will defer DVT prophylaxis to primary hospitalist service. Cardiology will continue to follow. Thank you for allowing me to participate in the care of your patient. Please call for any other questions or concerns. Sincerely, Dwain Sinclair M.D. History of Present Illness Reason for Consultation: Multifocal atrial tachycardia Requesting Physician: Brandon Donald MD Attending Physician: Brandon Donald MD History of Present Illness Ms. Tello is a very pleasant 67-year-old female with a history significant for cardiomyopathy, COPD, adrenal insufficiency, carotid artery stenosis s/p left CEA (03/09/20), CVA (02/11/20), hypertension, dyslipidemia, pulmonary embolus (provoked postop hip surgery 05/2021), CKD, and CHF. She was recently hospitalized on 08/19/2022 and discharged on 08/21/2022 after presenting with shortness of breath. She was diagnosed with atrial fibrillation based on ECG per records, however ECGs demonstrated multifocal atrial tachycardia and at times sinus tachycardia with PACs. During that hospital stay, she was treated for COPD exacerbation and apparently had not been using Lasix prior to her arrival and therefore underwent diuresis. On discharge, she was placed on Eliquis for the concern of atrial fibrillation. She has had the following studies/procedures: 1. Echo 08/19/2022: Technically difficult study as patient was sitting in chair. Estimated EF 40 to 45%. Global hypokinesis. Severe pulmonary hypertension, with RVSP 62 moderate mitral regurgitation. She presented again on 09/03/2022 with shortness of breath and was once again found to be in multifocal atrial tachycardia. She had increasing shortness of breath and edema over the past few days. She states that her Lasix was reduced from 20 mg daily to 5 mg daily however when reviewing records, it appears as though she was then taking it on an as-needed basis. With the reduction in diuretic, she noted increased edema and shortness of breath. She has a scale at home but had not been weighing herself. She also admits that she had been consuming foods high in sodium content, including adding salt to food. She has had a cough and developed green sputum with a cough. She denies chest pain, syncope, near syncope, palpitations, orthopnea, or bleeding. Her breathing is better now after some diuresis, but not yet back to normal. Review of systems: As above. Review of systems otherwise negative/unremarkable. Family history: Mother and father had CAD. Social history: She quit smoking on 08/19/2022 after 1 to 2 packs/day for 55+ years. No alcohol. Lives alone. She is and refers to her spouse as her best friend. They do not live together. She has children. She was unaccompanied in her hospital room. She identifies her niece (Natalia) as her contact and would like her to be called. Allergies Allergy/AdvReac Type Severity Reaction Status Date / Time No Known Allergies Allergy Verified 09/03/22 13:53 Home Medications Medication Instructions Recorded Confirmed Type naloxone 4 mg/actuation nasal 4 mg intranasal DIRECTED PRN 06/13/21 09/03/22 History spray (Narcan) OVERSEDATION diclofenac sodium 1 % topical gel 4 g EXT QID #100 grams 11/18/21 09/03/22 Rx ([facility]) aspirin 81 mg tablet,delayed 81 mg PO QAM #90 tabs 02/06/22 09/03/22 Rx release ([facility] Low Dose Aspirin) ondansetron 4 mg disintegrating 4 mg PO Q6H PRN NAUSEA/VOMITING 02/06/22 09/03/22 Rx tablet #20 tabs furosemide 20 mg tablet 20 mg PO DAILY PRN edema #30 tabs 05/15/22 09/03/22 Rx albuterol sulfate 90 mcg/actuation 2 inh inhalation DAILY #18 grams 05/24/22 09/03/22 Rx aerosol inhaler (ProAir HFA) hydrocortisone 20 mg tablet 40 mg PO BID PRN see specific 05/24/22 09/03/22 Rx directions #90 tabs Advair Diskus 250 mcg-50 mcg/dose 1 inh inhalation BID #60 ea 05/25/22 09/03/22 Rx powder for inhalation (fluticasone propion-salmeterol) famotidine 20 mg tablet 20 mg PO BID #90 tabs 07/13/22 09/03/22 Rx albuterol sulfate 2.5 mg/3 mL 2.5 mg (3 mL) inhalation Q6H #90 mL 08/02/22 09/03/22 Rx (0.083 %) solution for nebulization ipratropium 0.5 mg-albuterol 3 mg 3 ml inhalation Q6H PRN wheezing 08/02/22 09/03/22 Rx (2.5 mg base)/3 mL nebulization #90 mL soln pantoprazole 40 mg tablet,delayed 40 mg PO BID #90 tabs 08/10/22 09/03/22 Rx release hydrocortisone 20 mg tablet 20 mg PO DAILY 08/19/22 09/03/22 History sennosides 8.6 mg tablet (Senokot) 8.6 mg PO BID 08/19/22 09/03/22 History apixaban 5 mg tablet (Eliquis) 5 mg PO BID 30 days #60 tabs 08/21/22 09/03/22 Rx metoprolol succinate 25 mg 25 mg PO DAILY 30 days #30 tabs 08/21/22 09/03/22 Rx tablet,extended release 24 hr (Toprol XL) oxycodone 10 mg tablet 10 mg PO Q6H PRN pain #180 tabs 08/23/22 09/03/22 Rx atorvastatin 40 mg tablet 40 mg PO DAILY 08/29/22 09/03/22 History fludrocortisone 0.1 mg tablet 0.1 mg PO DAILY 08/29/22 09/03/22 History nicotine 14 mg/24 hr daily 1 patch transdermal Q24H 2 weeks 08/29/22 09/03/22 Rx transdermal patch (Nicoderm CQ) #14 ea sacubitril 24 mg-valsartan 26 mg 1 tab PO BID 30 days #60 tabs 08/29/22 09/03/22 Rx tablet (Entresto) Patient History Medical History (Updated 09/04/22 @ 11:38 by Homer Sinclair MD) Acute renal failure BEV (acute kidney injury) Asthma PT STATES TAKES RESCUE INHALER DAILY Cardiomyopathy Carotid stenosis, left S/P L CEA (02/18/20) (Prior to CEA patient had 80% LICA stenosis ) Cerebral aneurysm Per records, pt unaware No significant aneurysm noted with head CTA and brain MRI from 01/2020 CKD (chronic kidney disease) stage III COPD (chronic obstructive pulmonary disease) CVA (cerebral vascular accident) CVA 02/11/20- no residual effects, follows with [facility], patient was on plavix until ~1 month after left CEA surgery, now on ASA 81mg Depression with anxiety GERD (gastroesophageal reflux disease) Heart failure with mid-range ejection fraction History of Meniere's disease History of prediabetes HGBA1C 6.1% on 01/28/21 History of revision of total replacement of right hip joint 03/25/21 - [facility]; explantation old hardware, wound vac placement. History of septic shock 03/2021 - due to septic R hip; 04/2021 - again due to septic R hip - hospitalized [facility] each admission. Pseudomonas, proteus, oj a lbicans. Hyperlipidemia Hypertension Multifocal atrial tachycardia Osteoarthritis Pulmonary emboli Pulmonary hypertension RBBB SOB (shortness of breath) Tobacco use disorder Surgical History H/O carotid endarterectomy Left CEA: 02/18/20: Grade view 1 with head lift, MAC#3, ETT 7.0 at [facility] History of appendectomy History of bilateral tubal ligation History of brain surgery 5 years ago ([facility]) History of History of cataract surgery R/L History of section x1 History of cholecystectomy History of cholecystectomy History of colonoscopy History of esophagogastroduodenoscopy (EGD) History of incision and drainage right hip - multiple I/D's, 03/2021-04/2021; [facility]. History of tonsillectomy History of tooth extraction History of total hip arthroplasty RT> with repair S/P carotid endarterectomy Status post revision of total hip replacement (~01/2021) Family History Mother Diabetes Family history of diabetes mellitus Sister Diabetes Family history of diabetes mellitus Arterial thrombosis Amputation of leg Father Heart disease Lung disease Other No family history of adverse response to anesthesia Denies family history of Ovarian cancer Prostate cancer Myocardial infarction Breast cancer Colorectal cancer Social History Smoking Status: Former smoker Tobacco Type: Cigarettes Age Started Using Tobacco: 17; Age Quit Using Tobacco: 65; packs per day: 1; Smoking End Date: 08-18-22; Second Hand Exposure: No; Do You Dip or Chew Tobacco: No; Tobacco Cessation Education Requested by Patient: No Hx Alcohol Use: No Hx Substance Use: Yes Last Used Substance: Unknown Last Used Substance Other:: 08/31/2021 Substance Use Type Other:: daily use Preferred Language: Yoruba Communication Ability: Effective Visual Impairment: No Limitations Hearing Ability: Normal Club Attendant Required: No Beliefs That Will Affect Care: None marital status: Unknown Current Living Situation: Alone Current Living Situation Comment: Son staying with mother current occupational status: retired 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 Alert and oriented. HEENT: Anicteric sclera. Neck: Mild JVD and hepatojugular reflux. No bruits. Normal carotid upstrokes bilaterally. Cardiac: PMI was nonpalpable. No ventricular heave. Regular with occasional irregularity. Normal S1-S2. No murmurs, rubs, or gallops. Pulmonary: Decreased breath sounds bilaterally with bibasilar crackles. Abdomen: Soft, nontender, nondistended, with normoactive bowel sounds. No bruits noted. Extremities: 2+ radial pulses bilaterally. 2+ posterior tibialis pulses bilaterally. 1+ bilateral lower extremity edema. No cyanosis. Psychiatric: Affect appears appropriate. Results & Data ([facility]) Vital Signs (Past 12 Hours) Vital Signs Temp Pulse Pulse Resp BP Pulse Ox O2 Del Method 09/04/22 10:05 88 09/04/22 08:00 Room Air 09/04/22 07:59 36.6 C 90 22 133/85 98 Room Air 09/04/22 07:54 85 20 99 CPAP 09/04/22 03:40 15 09/04/22 03:13 36.6 C 68 20 128/82 98 CPAP 09/03/22 23:26 36.5 C 74 20 123/84 100 CPAP 09/03/22 23:56 69 13 93 09/03/22 23:55 69 13 93 CPAP O2 Flow Rate 09/04/22 10:05 09/04/22 08:00 09/04/22 07:59 09/04/22 07:54 2 09/04/22 03:40 2 09/04/22 03:13 09/03/22 23:26 09/03/22 23:56 2 09/03/22 23:55 2 Intake & Output 09/02/22 09/03/22 09/04/22 09/05/22 06:59 06:59 06:59 06:59 Intake Total 487.083 / 487.083 310 / 310 Output Total 1974 150 / 150 Balance -1487.917 / -1487.917 160 / 160 Weight 178 lb 5.663 oz Laboratory Results Laboratory Results - last 24 hr 09/03/22 09/03/22 09/03/22 15:02 15:18 15:18 WBC 14.01 H RBC 3.55 L Hgb 11.4 L Hct 35.5 MCV 100.0 MCH 32.1 MCHC 32.1 RDW Std Deviation 56.1 H RDW Coeff of Crow 15.2 H Plt Count 182 MPV 10.4 Immature Gran % (Auto) 0.9 Neut % (Auto) 76.0 Lymph % (Auto) 14.5 Hendricks % (Auto) 8.2 Eos % (Auto) 0.1 Baso % (Auto) 0.3 Neut # (Auto) 10.65 H Lymph # (Auto) 2.03 Hendricks # (Auto) 1.15 H Eos # (Auto) 0.01 Baso # (Auto) 0.04 Immature Gran # (Auto) 0.13 H PT INR APTT PTT Ratio ABG pH ABG pCO2 ABG pO2 ABG HCO3 ABG O2 Saturation ABG Base Excess Theo Test VBG pH VBG pCO2 VBG pO2 VBG HCO3 VBG O2 Saturation VBG Base Excess Oxygen Given Sodium Potassium Chloride Carbon Dioxide Anion Gap BUN Creatinine Est Cr Clr Drug Dosing Est GFR ( Amer) Est GFR (Non-Af Amer) BUN/Creatinine Ratio Glucose Calcium Magnesium Total Bilirubin AST ALT Alkaline Phosphatase Troponin I High Sens B-Natriuretic Peptide 4362 H Total Protein Albumin Globulin Albumin/Globulin Ratio Lipase Adenovirus (PCR) B. pertussis DNA (PCR) B.parapertussis DNA PCR C. pneumoniae DNA (PCR) Coronavirus OC43 (PCR) Coronavirus HKU1 (PCR) Coronavirus 229E (PCR) SARS-CoV-2 (PCR) Coronavirus NL63 (PCR) Human Metapneumovir PCR Influenza Type A (PCR) Influenza Type B (PCR) M. pneumoniae (PCR) Parainfluenza 1 (PCR) Parainfluenza 2 (PCR) Parainfluenza 3 (PCR) Parainfluenza 4 (PCR) RSV (PCR) Entero/Rhino (PCR) SARS-CoV-2, RNA, NAAT NEGATIVE 09/03/22 09/03/22 09/03/22 15:18 15:18 15:18 WBC RBC Hgb Hct MCV MCH MCHC RDW Std Deviation RDW Coeff of Crow Plt Count MPV Immature Gran % (Auto) Neut % (Auto) Lymph % (Auto) Hendricks % (Auto) Eos % (Auto) Baso % (Auto) Neut # (Auto) Lymph # (Auto) Hendricks # (Auto) Eos # (Auto) Baso # (Auto) Immature Gran # (Auto) PT 11.6 INR 1.1 APTT 28.2 PTT Ratio 1.0 ABG pH ABG pCO2 ABG pO2 ABG HCO3 ABG O2 Saturation ABG Base Excess Theo Test VBG pH VBG pCO2 VBG pO2 VBG HCO3 VBG O2 Saturation VBG Base Excess Oxygen Given Sodium 143 Potassium 2.8 L Chloride 101 Carbon Dioxide 35 H Anion Gap 7 BUN 18 Creatinine 0.81 Est Cr Clr Drug Dosing 71.0 Est GFR ( Amer) 86.5 Est GFR (Non-Af Amer) 74.6 BUN/Creatinine Ratio 22.2 H Glucose 160 H Calcium 7.9 L Magnesium 1.6 L Cancelled Total Bilirubin AST ALT Alkaline Phosphatase Troponin I High Sens 498.2 H* D B-Natriuretic Peptide Total Protein Albumin Globulin Albumin/Globulin Ratio Lipase 6 L Adenovirus (PCR) B. pertussis DNA (PCR) B.parapertussis DNA PCR C. pneumoniae DNA (PCR) Coronavirus OC43 (PCR) Coronavirus HKU1 (PCR) Coronavirus 229E (PCR) SARS-CoV-2 (PCR) Coronavirus NL63 (PCR) Human Metapneumovir PCR Influenza Type A (PCR) Influenza Type B (PCR) M. pneumoniae (PCR) Parainfluenza 1 (PCR) Parainfluenza 2 (PCR) Parainfluenza 3 (PCR) Parainfluenza 4 (PCR) RSV (PCR) Entero/Rhino (PCR) SARS-CoV-2, RNA, NAAT 09/03/22 09/03/22 09/03/22 15:42 15:45 17:59 WBC RBC Hgb Hct MCV MCH MCHC RDW Std Deviation RDW Coeff of Crow Plt Count MPV Immature Gran % (Auto) Neut % (Auto) Lymph % (Auto) Hendricks % (Auto) Eos % (Auto) Baso % (Auto) Neut # (Auto) Lymph # (Auto) Hendricks # (Auto) Eos # (Auto) Baso # (Auto) Immature Gran # (Auto) PT INR APTT PTT Ratio ABG pH 7.51 H* ABG pCO2 46 ABG pO2 98 H ABG HCO3 37 H ABG O2 Saturation 98.9 H ABG Base Excess 12.1 H Theo Test Pos VBG pH VBG pCO2 VBG pO2 VBG HCO3 VBG O2 Saturation VBG Base Excess Oxygen Given BIPAP FIO2 35 Sodium 142 Potassium 3.2 L Chloride 99 Carbon Dioxide 34 H Anion Gap 9 BUN 19 Creatinine 0.93 Est Cr Clr Drug Dosing 61.8 Est GFR ( Amer) 73.2 Est GFR (Non-Af Amer) 63.1 BUN/Creatinine Ratio 20.4 H Glucose 231 H Calcium 8.3 L Magnesium Total Bilirubin AST ALT Alkaline Phosphatase Troponin I High Sens B-Natriuretic Peptide Total Protein Albumin Globulin Albumin/Globulin Ratio Lipase Adenovirus (PCR) Not Detected B. pertussis DNA (PCR) Not Detected B.parapertussis DNA PCR Not Detected C. pneumoniae DNA (PCR) Not Detected Coronavirus OC43 (PCR) Not Detected Coronavirus HKU1 (PCR) Not Detected Coronavirus 229E (PCR) Not Detected SARS-CoV-2 (PCR) Not Detected Coronavirus NL63 (PCR) Not Detected Human Metapneumovir PCR Not Detected Influenza Type A (PCR) Not Detected Influenza Type B (PCR) Not Detected M. pneumoniae (PCR) Not Detected Parainfluenza 1 (PCR) Not Detected Parainfluenza 2 (PCR) Not Detected Parainfluenza 3 (PCR) Not Detected Parainfluenza 4 (PCR) Not Detected RSV (PCR) Not Detected Entero/Rhino (PCR) Not Detected SARS-CoV-2, RNA, NAAT 09/03/22 09/03/22 09/03/22 19:49 22:30 22:30 WBC RBC Hgb Hct MCV MCH MCHC RDW Std Deviation RDW Coeff of Crow Plt Count MPV Immature Gran % (Auto) Neut % (Auto) Lymph % (Auto) Hendricks % (Auto) Eos % (Auto) Baso % (Auto) Neut # (Auto) Lymph # (Auto) Hendricks # (Auto) Eos # (Auto) Baso # (Auto) Immature Gran # (Auto) PT INR APTT PTT Ratio ABG pH ABG pCO2 ABG pO2 ABG HCO3 ABG O2 Saturation ABG Base Excess Theo Test VBG pH 7.51 H 7.45 H VBG pCO2 43 53 H VBG pO2 57 43 VBG HCO3 34 37 VBG O2 Saturation 92.0 74.6 VBG Base Excess 10.1 10.8 Oxygen Given Sodium 140 Potassium 3.5 Chloride 98 Carbon Dioxide 36 H Anion Gap 6 BUN 20 Creatinine 0.92 Est Cr Clr Drug Dosing 60.2 Est GFR ( Amer) 74.2 Est GFR (Non-Af Amer) 64.0 BUN/Creatinine Ratio 21.7 H Glucose 291 H Calcium 7.9 L Magnesium Total Bilirubin AST ALT Alkaline Phosphatase Troponin I High Sens B-Natriuretic Peptide Total Protein Albumin Globulin Albumin/Globulin Ratio Lipase Adenovirus (PCR) B. pertussis DNA (PCR) B.parapertussis DNA PCR C. pneumoniae DNA (PCR) Coronavirus OC43 (PCR) Coronavirus HKU1 (PCR) Coronavirus 229E (PCR) SARS-CoV-2 (PCR) Coronavirus NL63 (PCR) Human Metapneumovir PCR Influenza Type A (PCR) Influenza Type B (PCR) M. pneumoniae (PCR) Parainfluenza 1 (PCR) Parainfluenza 2 (PCR) Parainfluenza 3 (PCR) Parainfluenza 4 (PCR) RSV (PCR) Entero/Rhino (PCR) SARS-CoV-2, RNA, NAAT 09/04/22 09/04/22 09/04/22 00:14 02:42 02:42 WBC 8.64 RBC 3.42 L Hgb 11.1 L Hct 33.7 L MCV 98.5 MCH 32.5 MCHC 32.9 RDW Std Deviation 53.3 H RDW Coeff of Crow 14.7 H Plt Count 183 MPV 10.6 Immature Gran % (Auto) 0.7 Neut % (Auto) 87.4 Lymph % (Auto) 9.5 Hendricks % (Auto) 2.3 Eos % (Auto) 0.0 Baso % (Auto) 0.1 Neut # (Auto) 7.55 H Lymph # (Auto) 0.82 L Hendricks # (Auto) 0.20 L Eos # (Auto) 0.00 Baso # (Auto) 0.01 Immature Gran # (Auto) 0.06 H PT INR APTT PTT Ratio ABG pH ABG pCO2 ABG pO2 ABG HCO3 ABG O2 Saturation ABG Base Excess Theo Test VBG pH VBG pCO2 VBG pO2 VBG HCO3 VBG O2 Saturation VBG Base Excess Oxygen Given Sodium 142 Potassium 3.8 Chloride 100 Carbon Dioxide 36 H Anion Gap 6 BUN 22 Creatinine 0.91 Est Cr Clr Drug Dosing 60.9 Est GFR ( Amer) 75.1 Est GFR (Non-Af Amer) 64.8 BUN/Creatinine Ratio 24.2 H Glucose 279 H Calcium 8.0 L Magnesium 2.0 Total Bilirubin 1.5 H AST 15 ALT 15 Alkaline Phosphatase 58 Troponin I High Sens 273.9 H* D B-Natriuretic Peptide Total Protein 5.3 L Albumin 3.1 L Globulin 2.2 L Albumin/Globulin Ratio 1.4 Lipase Adenovirus (PCR) B. pertussis DNA (PCR) B.parapertussis DNA PCR C. pneumoniae DNA (PCR) Coronavirus OC43 (PCR) Coronavirus HKU1 (PCR) Coronavirus 229E (PCR) SARS-CoV-2 (PCR) Coronavirus NL63 (PCR) Human Metapneumovir PCR Influenza Type A (PCR) Influenza Type B (PCR) M. pneumoniae (PCR) Parainfluenza 1 (PCR) Parainfluenza 2 (PCR) Parainfluenza 3 (PCR) Parainfluenza 4 (PCR) RSV (PCR) Entero/Rhino (PCR) SARS-CoV-2, RNA, NAAT 09/04/22 09/04/22 09/04/22 02:42 06:56 06:56 WBC RBC Hgb Hct MCV MCH MCHC RDW Std Deviation RDW Coeff of Crow Plt Count MPV Immature Gran % (Auto) Neut % (Auto) Lymph % (Auto) Hendricks % (Auto) Eos % (Auto) Baso % (Auto) Neut # (Auto) Lymph # (Auto) Hendricks # (Auto) Eos # (Auto) Baso # (Auto) Immature Gran # (Auto) PT INR APTT PTT Ratio ABG pH ABG pCO2 ABG pO2 ABG HCO3 ABG O2 Saturation ABG Base Excess Theo Test VBG pH 7.49 H 7.49 H VBG pCO2 49 50 VBG pO2 47 57 VBG HCO3 37 38 VBG O2 Saturation 79.2 89.6 VBG Base Excess 12.1 12.7 Oxygen Given Sodium Potassium Chloride Carbon Dioxide Anion Gap BUN Creatinine Est Cr Clr Drug Dosing Est GFR ( Amer) Est GFR (Non-Af Amer) BUN/Creatinine Ratio Glucose Calcium Magnesium Total Bilirubin AST ALT Alkaline Phosphatase Troponin I High Sens 136.4 H* D B-Natriuretic Peptide Total Protein Albumin Globulin Albumin/Globulin Ratio Lipase Adenovirus (PCR) B. pertussis DNA (PCR) B.parapertussis DNA PCR C. pneumoniae DNA (PCR) Coronavirus OC43 (PCR) Coronavirus HKU1 (PCR) Coronavirus 229E (PCR) SARS-CoV-2 (PCR) Coronavirus NL63 (PCR) Human Metapneumovir PCR Influenza Type A (PCR) Influenza Type B (PCR) M. pneumoniae (PCR) Parainfluenza 1 (PCR) Parainfluenza 2 (PCR) Parainfluenza 3 (PCR) Parainfluenza 4 (PCR) RSV (PCR) Entero/Rhino (PCR) SARS-CoV-2, RNA, NAAT Diagnostic Findings ECGs personally reviewed: ECG 08/19/2022 at 9:51 AM: Sinus tachycardia with PACs versus multifocal atrial tachycardia 109 bpm. RBBB. ECG 08/19/2022 at 1211: Multifocal atrial tachycardia 121 bpm. In complete RBBB. PVC versus aberrantly conducted complex. ECG 08/19/2022 at 1606: Sinus tachycardia with PACs and PVC 115 bpm. Incomplete RBBB. ECG 08/20/2022 at 1114: Sinus rhythm with PACs versus wandering atrial pacemaker and PVCs 92 bpm. Incomplete RBBB. ECG 09/03/2022 at 1402: Sinus tachycardia with PACs versus multifocal atrial tachycardia 117 bpm. RBBB. ECG 09/03/2022 at 1535: Multifocal atrial tachycardia 125 bpm. Incomplete RBBB. Telemetry strips from last hospital stay on 08/19/2022 to 08/21/2022 personally reviewed: No atrial fibrillation noted. There was noted multifocal atrial tachycardia versus sinus tachycardia with PACs, otherwise sinus rhythm and 8 beat run of ventricular tachycardia on 08/19/2022. Chest x-ray 09/03/2022: Emphysema with prominence of pulmonary vasculature. Medications Administered Current Inpatient Medications Acetaminophen (Acetaminophen 325 Mg Tab) 650 mg PO Q4H PRN PRN Reason: Mild Pain or Fever Stop: 10/03/22 19:32 Albuterol (Albuterol 0.083% Nebu Soln 3 Ml Vial) 2.5 mg INH Q6H JOHANNA; Protocol Stop: 10/03/22 19:32 Last Admin: 09/04/22 07:09 Dose: 2.5 mg Albuterol (Albut/Ipratrop 3mg/0.5mg Neb 3 Ml Vial) 3 ml INH QIDR PRN; Protocol PRN Reason: wheezing Stop: 10/03/22 19:32 Apixaban (Apixaban 5 Mg Tablet) 5 mg PO BID JOHANNA Stop: 10/03/22 20:59 Last Admin: 09/04/22 08:40 Dose: 5 mg Aspirin (Aspirin 81 Mg Ectab) 81 mg PO QAM JOHANNA Stop: 10/04/22 08:59 Last Admin: 09/04/22 08:39 Dose: 81 mg Atorvastatin Calcium (Atorvastatin 40 Mg Tab) 40 mg PO DAILY JOHANNA Stop: 10/04/22 08:59 Last Admin: 09/04/22 08:40 Dose: 40 mg Famotidine (Famotidine 20 Mg Tab) 20 mg PO BID JOHANNA Stop: 10/03/22 20:59 Last Admin: 09/04/22 08:40 Dose: 20 mg Fluticasone/Vilanterol (Fluticasone/Vilanterol 100/25mcg 14 Puffs/Inhaler) 1 puffs INH DAILY JOHANNA Stop: 10/04/22 08:59 Last Admin: 09/04/22 08:42 Dose: 1 puffs Furosemide (Furosemide 40 Mg Tab) 40 mg PO DAILY JOHANNA Stop: 10/04/22 08:59 Last Admin: 09/04/22 08:39 Dose: 40 mg Hydrocortisone (Hydrocortisone 10 Mg Tab) 20 mg PO BID JOHANNA Stop: 10/03/22 20:59 Last Admin: 09/04/22 08:39 Dose: 20 mg Diltiazem HCl 125 mg/ Dextrose 125 mls @ 2.5 mls/hr IV .Q24H JOHANNA; Protocol Stop: 10/03/22 13:44 Last Titration: 09/03/22 22:15 Dose: Infused Doxycycline Hyclate 100 mg/ (Dextrose) 110 mls @ 50 mls/hr IV Q12H JOHANNA Stop: 09/10/22 19:59 Last Infusion: 09/04/22 10:43 Dose: Infused Magnesium Oxide (Magnesium Oxide 400 Mg Tab) 400 mg PO QAM JOHANNA Stop: 10/03/22 19:32 Last Admin: 09/04/22 08:39 Dose: 400 mg Metoprolol Succinate (Metoprolol Succ 25mg Ext Rel Tab) 25 mg PO DAILY ON LICENSE OF [facility] Stop: 10/04/22 08:59 Last Admin: 09/04/22 08:40 Dose: 25 mg Miscellaneous (Remove Nicoderm Patch) 1 each N/A DAILY@0859 ON LICENSE OF [facility] Stop: 10/04/22 08:58 Last Admin: 09/04/22 08:42 Dose: Not Given Nicotine (Nicotine 14 Mg/24 Hr Patch) 14 mg TD QAM ON LICENSE OF [facility] Stop: 10/03/22 19:32 Last Admin: 09/04/22 08:42 Dose: Not Given Ondansetron HCl (Ondansetron 4 Mg Od Tab) 4 mg PO Q6H PRN PRN Reason: NAUSEA/VOMITING Stop: 10/03/22 19:32 Oxycodone HCl (Oxycodone Hcl Ir 5 Mg Tab (Immediate Release)) 10 mg PO Q6H PRN PRN Reason: Moderate-Severe Pain Stop: 09/17/22 19:32 Pantoprazole Sodium (Pantoprazole 40 Mg Tab) 40 mg PO BID ON LICENSE OF [facility] Stop: 10/03/22 20:59 Last Admin: 09/04/22 08:39 Dose: 40 mg Polyethylene Glycol (Polyethylene (Miralax) 17 Gm Pack) 17 gm PO DAILY PRN PRN Reason: Constipation Stop: 10/03/22 19:32 Potassium Chloride (Potassium Chloride Crtab 20 Meq Tabcr) 20 meq PO TID ON LICENSE OF [facility] Stop: 09/04/22 21:01 Last Admin: 09/04/22 08:40 Dose: 20 meq Sacubitril/Valsartan (Valsartan/Sacubitril 26/24mg Tab) 1 tab PO BID ON LICENSE OF [facility] Stop: 10/03/22 20:59 Last Admin: 09/04/22 08:39 Dose: 1 tab Sennosides (Senna 8.6 Mg Tab) 8.6 mg PO BID ON LICENSE OF [facility] Stop: 10/03/22 20:59 Last Admin: 09/04/22 08:41 Dose: 8.6 mg PG Care Time/CCT Total # of Minutes Spent Total Time Spent with Patient: Total time spent is greater than 50% in coordination of care (as documented) at patient's floor/unit and/or counseling patient: Coding Level of Care Code 68892 Initial Inpt Care Lvl 3 Diagnoses Multifocal atrial tachycardia I47.1 Heart failure with mid-range ejection fraction I50.22 Acute on chronic HFrEF (heart failure with reduced ejection fraction) I50.23 Pulmonary hypertension I27.20 Cardiomyopathy I42.9 Elevated troponin R77.8
[2022-09-04] MEDS ORDERED: FUROSEMIDE 40 MG/4 ML VIAL IV ONE (17:01)
--- NOTE | 2022-09-04 18:08 | Hospitalist Progress Note ---
Date of Service September 04, 2022 Assessment & Plan (1) Multifocal atrial tachycardia: Plan: Previously diagnosed as atrial fibrillation but on review by admitting physician, myself and cardiology agree no evidence of atrial fibrillation and suspect this was a multifocal atrial tachycardia during last admission as well Discussed with cardiology and will discontinue Eliquis - she has no other reason to be on this. Discontinue diltiazem IV drip Increase metoprolol per cardiology recommendations -> 50mg PO daily, discussed care with Dr Sinclair at bedside (2) Metabolic alkalosis: Plan: suspect secondary to loop diuretics + apparent mineralocorticoid excess with fludrocortisone/hydrocortisone (3) Heart failure with mid-range ejection fraction: Plan: TTE 08/20/2022: EF 40-45%. Mild global hypokinesis of left ventricle. LV SF mildly reduced. LV normal in size. Grade 2 diastolic dysfunction. Started on Entresto as outpatient for cardiomyopathy Pending dobutamine stress echo scheduling and cardiology follow-up as outpatient High-sensitivity troponin peaked 498 on admission. Trending down. Suspect demand ischemia. Additional Lasix dose by cardiology prescribed for today. (4) COPD (chronic obstructive pulmonary disease): Plan: Completed a azithromycin/steroid taper this month COPD intensification deferred at transitional care due to suspicion for incompletely controlled underlying heart failure Continue Advair, nebs as needed No PFTs available for review Given rapid improvement and no wheezing on exam I have a low suspicion for COPD. No need for routine duonebs or steroids. (5) Adrenal insufficiency: Plan: Appears to be a relatively questionable diagnosis per last endocrinology note. Mainly continued this because she felt better on them. Received methylprednisolone 125 load in ER I'm unclear what she should be taking but I suspect her steroids are causing her metabolic alkalosis and contributing towards hypokalemia. Will transition back to last endocrinology note with hydrocortisone 15 + 5 tomorrow. (6) Hypokalemia: Plan: Resolved with supplementation Agree with holding Florinef (7) Peripheral edema: (8) Hypomagnesemia: Plan: Mg level back to 2.0 today Continue oral supplementation (9) Asthma: (10) Hypertension: Plan: Continue Entresto (11) Hyperlipidemia: Plan: Continue statin (12) GERD (gastroesophageal reflux disease): Plan: Continue PPI, H2 (13) Carotid artery stenosis: Plan: Continue aspirin and statin (14) Chronic cerebral ischemia: (15) History of revision of total replacement of right hip joint: (16) Chronic renal failure, stage 3b: (17) History of brain surgery: (18) Steroid-induced hyperglycemia: Plan: Novolog: correction factor 45, aim 110-140 (19) History of pulmonary embolism: Plan: Provoked in the setting of hip fracture Lovenox 40mg SQ daily starting tomorrow Plan DVT prophylaxis: We will switch to Lovenox in a.m. Diet: Heart healthy, low-sodium. Disposition: PCU CODE STATUS: Full code Admission and Anticipated Discharge Date Admission Date: September 03, 2022 Subjective Reports feeling much improved since admission. Not yet back to baseline. No chest pain, palpitations, orthopnea, PND, claudication. Extensive bruising on bilateral arms since starting on Eliquis last admission. Leg swelling improved since admission. Clear sputum cough improving. Review of Systems Review of Systems: All systems reviewed & are unremarkable except as noted in Subjective Physical Exam Constitutional: WD/WN, vitals as above Respiratory: normal respiratory effort; no respiratory distress Auscultation: + crackles (bibasal) Cardiovascular: Rate/Rhythm: regular rate and + irregularly irregular Heart Sounds: no murmur Extremities: + pedal edema (1+ b/l pretibial pitting) Gastrointestinal (Abdomen): normal bowel sounds, soft, nontender, no hepatosplenomegaly Musculoskeletal: no cyanosis or clubbing, extremities motor strength 5/5 Neurologic: moves all extremities and awake; not confused Psychiatric: A+Ox3, euthymic affect Results & Data Results & Data ([facility]) Vital Signs (Past 12 Hours) Vital Signs Temp Pulse Pulse Resp BP Pulse Ox Pulse Ox 09/04/22 15:55 36.8 C 90 19 110/67 94 09/04/22 13:06 90 18 93 09/04/22 11:42 36.9 C 89 19 111/76 97 09/04/22 11:30 94 09/04/22 10:05 88 09/04/22 08:00 09/04/22 07:59 36.6 C 90 22 133/85 98 09/04/22 07:54 85 20 99 Pulse Ox O2 Del Method O2 Flow Rate O2 Flow Rate O2 Flow Rate 09/04/22 15:55 Room Air 09/04/22 13:06 Room Air 09/04/22 11:42 Room Air 09/04/22 11:30 95 0 0 09/04/22 10:05 09/04/22 08:00 Room Air 09/04/22 07:59 Room Air 09/04/22 07:54 CPAP 2 PG Care Time/CCT Total # of Minutes Spent Total Time Spent with Patient: Total time spent is greater than 50% in coordination of care (as documented) at patient's floor/unit and/or counseling patient: Coding Level of Care Code 06690 Subseq Hosp Care Lvl 3 Diagnoses Multifocal atrial tachycardia I47.1 Metabolic alkalosis E87.3 Heart failure with mid-range ejection fraction I50.22 COPD (chronic obstructive pulmonary disease) J42 COPD type: chronic bronchitis Chronic bronchitis type: unspecified Adrenal insufficiency E27.40 Hypokalemia E87.6 Peripheral edema R60.9 Hypomagnesemia E83.42 Asthma J45.909 Hypertension I10 Hyperlipidemia E78.5 GERD (gastroesophageal reflux disease) K21.9 Carotid artery stenosis I65.29 Chronic cerebral ischemia I67.82 History of revision of total replacement of right hip joint Z96.641 Chronic renal failure, stage 3b N18.32 History of brain surgery Z98.890 Steroid-induced hyperglycemia R73.9; T38.0X5A History of pulmonary embolism Z86.711 (1) COPD (chronic obstructive pulmonary disease) COPD type: chronic bronchitis Chronic bronchitis type: unspecified Qualified Code(s): J42 - Unspecified chronic bronchitis
[2022-09-04] MEDS ORDERED: CARBOHYDRATES FOR HYPOGLYCEMIA PO PRN (22:22)
[2022-09-04] MEDS ORDERED: DEXTROSE 50% 50 ML SYRINGE IV PRN (22:22)
[2022-09-04] MEDS ORDERED: GLUCAGON FOR INJ 1 MG VIAL SQ PRN (22:22)
[2022-09-04] MEDS ORDERED: GLUCOSE 10 TAB/TUBE PO PRN (22:22)
[2022-09-04] MEDS ORDERED: GLUCOSE 40% GEL 15 GM TUBE PO PRN (22:22)
[2022-09-04] MEDS: INSULIN ASPART PER UNIT SC SCH (23:32)
[2022-09-05] MEDS: ALBUTEROL 0.083% NEBU SOLN 3 ML VIAL INH SCH ×4 (00:11→13:21)
[2022-09-05] MEDS ORDERED: MELATONIN 3 MG TAB PO PRN (02:08)
[2022-09-05 04:10] LABS: Basophils # (auto) 0.01 K/uL (0-0.2); Basophils % (auto) 0.1 %; Hematocrit (blood only) 33.1 % (34.1-44.9); Hemoglobin 10.8 g/dl (12.0-16.0); Immature Granulocytes # (auto) 0.05 K/uL (0.00-0.02); Immature Granulocytes % (auto) 0.4 %; Lymphocytes # (auto) 1.13 K/uL (1.2-3.4); Lymphocytes % (auto) 9.2 %; Mean Corpuscular Hemoglobin 32.1 pg (25.0-34.0); Mean Corpuscular Hgb Conc 32.6 g/dL (32.0-36.0); Mean Corpuscular Volume 98.5 fL (80.0-100.0); Mean Platelet Volume 10.8 fL (9.4-12.3); Monocytes % (auto) 6.5 %; Neutrophils # (auto) 10.28 K/uL (1.4-6.5); Neutrophils % (auto) 83.8 %; Platelet Count 188 K/uL (130-400); RDW Coefficient of Variation 15.2 % (11.5-14.5); RDW Standard Deviation 54.8 fL (36.4-46.3); Red Blood Count 3.36 M/uL (3.93-5.22); White Blood Count 12.27 K/ul (4.8-10.8)
[2022-09-05 04:33] LABS: BUN Creatinine Ratio 26.7 (10-20); Calcium 8.3 mg/dl (8.5-10.1); Creatinine Clr Calc Pharmacy 46.2 ml/min; Est GFR (African American) 53.8 ml/min; Est GFR (Non-African American) 46.4 ml/min; Magnesium 2.1 mg/dl (1.7-2.4); Potassium 3.7 mmol/L (3.5-5.1)
--- NOTE | 2022-09-05 06:08 | Electrocardiogram Report ---
Test Reason : Blood Pressure : / mmHG Vent. Rate : 117 BPM Atrial Rate : 117 BPM P-R Int : 112 ms QRS Dur : 110 ms QT Int : 340 ms P-R-T Axes : 000 -32 036 degrees QTc Int : 474 ms Poor data quality, interpretation may be adversely affected Sinus tachycardia with Premature atrial complexes Premature ventricular complexes Left axis deviation Incomplete right bundle branch block Abnormal ECG When compared with ECG of 20-AUG-2022 11:14, No significant change Confirmed by Homer Sinclair ([id number]) on 09/05/2022 6:08:02 AM Referred By: REFERRED SELF Confirmed By:Homer Sinclair
--- NOTE | 2022-09-05 06:15 | Electrocardiogram Report ---
Test Reason : Blood Pressure : / mmHG Vent. Rate : 125 BPM Atrial Rate : 100 BPM P-R Int : 000 ms QRS Dur : 112 ms QT Int : 362 ms P-R-T Axes : 000 026 028 degrees QTc Int : 522 ms Multifocal atrial tachycardia Indeterminate axis Incomplete right bundle branch block Abnormal ECG When compared with ECG of 03-SEP-2022 14:02, Premature ventricular complexes are no longer Present Confirmed by Homer Sinclair ([id number]) on 09/05/2022 6:15:38 AM Referred By: REFERRED SELF Confirmed By:Homer Sinclair
[2022-09-05 07:20] LABS: Estimated Average Glucose 163 mg/dl; Hemoglobin A1C 7.3 % (4.5-5.6)
[2022-09-05] MEDS: INSULIN ASPART PER UNIT SC SCH ×2 (08:03→11:36)
[2022-09-05] MEDS: SENNA 8.6 MG TAB PO SCH (08:10)
[2022-09-05] MEDS: NICOTINE 14 MG/24 HR PATCH TD SCH (08:10)
[2022-09-05] MEDS: ATORVASTATIN 40 MG TAB PO SCH (08:10)
[2022-09-05] MEDS: VALSARTAN/SACUBITRIL 26/24MG TAB PO SCH (08:11)
[2022-09-05] MEDS: FLUTICASONE/VILANTEROL 100/25MCG 14 PUFFS/INHALER INH SCH (08:11)
[2022-09-05] MEDS: ASPIRIN 81 MG ECTAB PO SCH (08:11)
[2022-09-05] MEDS: PANTOprazole 40 MG TAB PO SCH (08:11)
[2022-09-05] MEDS: FAMOTIDINE 20 MG TAB PO SCH (08:11)
[2022-09-05] MEDS: MAGNESIUM OXIDE 400 MG TAB PO SCH (08:12)
[2022-09-05] MEDS: FUROSEMIDE 40 MG TAB PO SCH (08:12)
[2022-09-05] MEDS ORDERED: HYDROCORTISONE 10 MG TAB PO SCH ×2 (09:00→17:00)
[2022-09-05] MEDS ORDERED: METOPROLOL SUCC 50MG EXT REL TAB PO SCH (09:00)
[2022-09-05] MEDS ORDERED: ENOXAPARIN INJ 40 MG/0.4 ML SYR SQ SCH (09:45)
--- NOTE | 2022-09-05 14:12 | Cardiology Progress Note ---
Date of Service September 05, 2022 Assessment & Plan (1) Multifocal atrial tachycardia: (2) Heart failure with mid-range ejection fraction: (3) Acute on chronic HFrEF (heart failure with reduced ejection fraction): (4) Pulmonary hypertension: (5) Cardiomyopathy: (6) Elevated troponin: Plan ASSESSMENT/PLAN: 1. Multifocal atrial tachycardia: Heart rate better controlled with increased beta-idalia. When reviewing rhythm strips from telemetry during last hospitalization and ECGs, there was no evidence of atrial fibrillation. She does not require anticoagulation therapy from a cardiology standpoint. First dose of metoprolol succinate 50 mg was today, increased from 25 mg. 2. Acute on chronic heart failure with midrange EF: Volume status improved. Metoprolol succinate has been titrated. Continue Entresto, which can be titrated as an outpatient as necessary. If recurrent issues with hypokalemia, would recommend spironolactone. We discussed the importance of a low-sodium diet, less than 2000 mg daily and the importance of reading labels. Recommend daily weights. Recommend heart failure program. Recommend daily Lasix on discharge at home. Close follow-up in the Heart failure program. 3. Cardiomyopathy: May be tachycardia induced. Heart rate improved. Repeat echo as an outpatient. Does not qualify for ICD for primary prevention. 4. Pulmonary hypertension: Likely multifactorial. She has known COPD after extensive smoking history. She has history of pulmonary embolism, and CHF. This can be reevaluated in the future when felt to be euvolemic, as an outpatient. 5. Elevated troponin: Peak troponin 498, which was on presentation. Likely due to demand ischemia in the setting of tachycardia, CHF, COPD. No angina. Treatment as above. 6. Disposition: Patient care discussed with Dr. Donald of the primary hospitalist service. Okay for discharge from a Cardiology perspective. Follow- up with Debora Saenz in the Heart failure program within 1 week. Admission and Anticipated Discharge Date Admission Date: September 03, 2022 Subjective She was seen earlier this afternoon, prior to discharge. She felt back to baseline. She denies shortness of breath, orthopnea, syncope, near-syncope, palpitations, or it bleeding. Edema has improved. She would like to be discharged. She was alone in her hospital room. Physical Exam Physical Exam: Gen.: No acute distress. Alert and oriented. HEENT: Anicteric sclera. Neck: No significant JVD. Cardiac: PMI was nonpalpable. No ventricular heave. Regular. Normal S1-S2. No murmurs, rubs, or gallops. Pulmonary: Decreased breath sounds bilaterally. Otherwise, clear to au scultation. Abdomen: Soft, nontender, nondistended, with normoactive bowel sounds. No bruits noted. Extremities: 2+ radial pulses bilaterally. 2+ posterior tibialis pulses bilaterally. 1+ bilateral lower extremity edema (improved). No cyanosis. Psychiatric: Affect appears appropriate. Results & Data ([facility]) Vital Signs (Past 12 Hours) Vital Signs Temp Pulse Pulse Resp BP Pulse Ox Pulse Ox 09/05/22 13:21 80 16 99 09/05/22 12:20 36.9 C 90 18 162/88 H 98 09/05/22 08:00 89 09/05/22 08:00 09/05/22 08:00 36.7 C 20 153/90 H 97 09/05/22 08:00 97 09/05/22 07:17 96 H 16 96 09/05/22 03:13 36.6 C 93 H 20 136/81 95 O2 Del Method O2 Del Method 09/05/22 13:21 Room Air 09/05/22 12:20 Room Air 09/05/22 08:00 09/05/22 08:00 Room Air 09/05/22 08:00 Room Air 09/05/22 08:00 Room Air 09/05/22 07:17 Room Air 09/05/22 03:13 Room Air Intake & Output 09/03/22 09/04/22 09/05/22 09/06/22 06:59 06:59 06:59 06:59 Intake Total 487.083 / 487.083 650 / 650 Output Total 1974 850 / 850 Balance -1487.917 / -1487.917 -200 / -200 Weight 178 lb 5.663 oz 178 lb 9.191 oz Laboratory Results Laboratory Results - last 24 hr 09/04/22 09/05/22 09/05/22 22:50 03:59 03:59 WBC 12.27 H RBC 3.36 L Hgb 10.8 L Hct 33.1 L MCV 98.5 MCH 32.1 MCHC 32.6 RDW Std Deviation 54.8 H RDW Coeff of Crow 15.2 H Plt Count 188 MPV 10.8 Immature Gran % (Auto) 0.4 Neut % (Auto) 83.8 Lymph % (Auto) 9.2 [place] % (Auto) 6.5 Eos % (Auto) 0.0 Baso % (Auto) 0.1 Neut # (Auto) 10.28 H Lymph # (Auto) 1.13 L [place] # (Auto) 0.80 Eos # (Auto) 0.00 Baso # (Auto) 0.01 Immature Gran # (Auto) 0.05 H Sodium 140 Potassium 3.7 Chloride 101 Carbon Dioxide 33 H Anion Gap 6 BUN 32 H Creatinine 1.20 Est Cr Clr Drug Dosing 46.2 Est GFR ( Amer) 53.8 Est GFR (Non-Af Amer) 46.4 BUN/Creatinine Ratio 26.7 H Glucose 207 H POC Glucose 290 H Estimat Average Glucose Hemoglobin A1c Calcium 8.3 L Magnesium 2.1 09/05/22 09/05/22 09/05/22 03:59 07:28 11:15 WBC RBC Hgb Hct MCV MCH MCHC RDW Std Deviation RDW Coeff of Crow Plt Count MPV Immature Gran % (Auto) Neut % (Auto) Lymph % (Auto) [place] % (Auto) Eos % (Auto) Baso % (Auto) Neut # (Auto) Lymph # (Auto) [place] # (Auto) Eos # (Auto) Baso # (Auto) Immature Gran # (Auto) Sodium Potassium Chloride Carbon Dioxide Anion Gap BUN Creatinine Est Cr Clr Drug Dosing Est GFR ( Amer) Est GFR (Non-Af Amer) BUN/Creatinine Ratio Glucose POC Glucose 207 H 153 H Estimat Average Glucose 163 Hemoglobin A1c 7.3 H Calcium Magnesium Diagnostic Findings Telemetry personally reviewed: Sinus rhythm with PACs and PVCs. Medications Administered Current Inpatient Medications Acetaminophen (Acetaminophen 325 Mg Tab) 650 mg PO Q4H PRN PRN Reason: Mild Pain or Fever Stop: 10/03/22 19:32 Albuterol (Albuterol 0.083% Nebu Soln 3 Ml Vial) 2.5 mg INH Q6H JOHANNA; Protocol Stop: 10/03/22 19:32 Last Admin: 09/05/22 13:21 Dose: 2.5 mg Albuterol (Albut/Ipratrop 3mg/0.5mg Neb 3 Ml Vial) 3 ml INH QIDR PRN; Protocol PRN Reason: wheezing Stop: 10/03/22 19:32 Aspirin (Aspirin 81 Mg Ectab) 81 mg PO QAM JOHANNA Stop: 10/04/22 08:59 Last Admin: 09/05/22 08:11 Dose: 81 mg Atorvastatin Calcium (Atorvastatin 40 Mg Tab) 40 mg PO DAILY JOHANNA Stop: 10/04/22 08:59 Last Admin: 09/05/22 08:10 Dose: 40 mg Dextrose (Dextrose 50% 50 Ml Syringe) 25 - 50 ml IV UD PRN; Protocol PRN Reason: Hypoglycemia Protocol Stop: 10/04/22 22:21 Enoxaparin Sodium (Enoxaparin Inj 40 Mg/0.4 Ml Syr) 40 mg SQ QAM JOHANNA Stop: 10/05/22 09:44 Last Admin: 09/05/22 09:57 Dose: 40 mg Famotidine (Famotidine 20 Mg Tab) 20 mg PO BID JOHANNA Stop: 10/03/22 20:59 Last Admin: 09/05/22 08:11 Dose: 20 mg Fluticasone/Vilanterol (Fluticasone/Vilanterol 100/25mcg 14 Puffs/Inhaler) 1 puffs INH DAILY JOHANNA Stop: 10/04/22 08:59 Last Admin: 09/05/22 08:11 Dose: 1 puffs Furosemide (Furosemide 40 Mg Tab) 40 mg PO DAILY JOHANNA Stop: 10/04/22 08:59 Last Admin: 09/05/22 08:12 Dose: 40 mg Glucagon (Glucagon For Inj 1 Mg Vial) 1 mg SQ UD PRN; Protocol PRN Reason: Hypoglycemia Protocol Stop: 10/04/22 22:21 Glucose (Glucose 40% Gel 15 Gm Tube) 15 - 30 gm PO UD PRN; Protocol PRN Reason: Hypoglycemia Protocol Stop: 10/04/22 22:21 Glucose (Glucose 10 Tab/Tube) 4 - 8 tab PO UD PRN; Protocol PRN Reason: Hypoglycemia Treatment Stop: 10/04/22 22:21 Hydrocortisone (Hydrocortisone 10 Mg Tab) 15 mg PO QAM JOHANNA Stop: 10/05/22 08:59 Last Admin: 09/05/22 09:57 Dose: 15 mg Hydrocortisone (Hydrocortisone 10 Mg Tab) 5 mg PO Q24H JOHANNA Stop: 10/05/22 16:59 Insulin Aspart (Insulin Aspart Per Unit) 0 units SC ACHS JOHANNA Stop: 10/04/22 22:44 Last Admin: 09/05/22 11:36 Dose: Not Given Magnesium Oxide (Magnesium Oxide 400 Mg Tab) 400 mg PO QAM [facility] Stop: 10/03/22 19:32 Last Admin: 09/05/22 08:12 Dose: 400 mg Melatonin (Melatonin 3 Mg Tab) 3 mg PO HS PRN PRN Reason: Sleep Stop: 10/05/22 02:07 Last Admin: 09/05/22 02:34 Dose: 3 mg Metoprolol Succinate (Metoprolol Succ 50mg Ext Rel Tab) 50 mg PO DAILY [facility] Stop: 10/05/22 08:59 Last Admin: 09/05/22 08:10 Dose: 50 mg Miscellaneous (Remove Nicoderm Patch) 1 each N/A DAILY@0859 [facility] Stop: 10/04/22 08:58 Last Admin: 09/05/22 08:09 Dose: Not Given Miscellaneous (Carbohydrates For Hypoglycemia ) 15 - 30 gm PO UD PRN PRN Reason: Hypoglycemia Protocol Stop: 10/04/22 22:21 Nicotine (Nicotine 14 Mg/24 Hr Patch) 14 mg TD QAM [facility] Stop: 10/03/22 19:32 Last Admin: 09/05/22 08:10 Dose: Not Given Ondansetron HCl (Ondansetron 4 Mg Od Tab) 4 mg PO Q6H PRN PRN Reason: NAUSEA/VOMITING Stop: 10/03/22 19:32 Oxycodone HCl (Oxycodone Hcl Ir 5 Mg Tab (Immediate Release)) 10 mg PO Q6H PRN PRN Reason: Moderate-Severe Pain Stop: 09/17/22 19:32 Last Admin: 09/05/22 05:27 Dose: 10 mg Pantoprazole Sodium (Pantoprazole 40 Mg Tab) 40 mg PO BID [facility] Stop: 10/03/22 20:59 Last Admin: 09/05/22 08:11 Dose: 40 mg Polyethylene Glycol (Polyethylene (Miralax) 17 Gm Pack) 17 gm PO DAILY PRN PRN Reason: Constipation Stop: 10/03/22 19:32 Sacubitril/Valsartan (Valsartan/Sacubitril 26/24mg Tab) 1 tab PO BID [facility] Stop: 10/03/22 20:59 Last Admin: 09/05/22 08:11 Dose: 1 tab Sennosides (Senna 8.6 Mg Tab) 8.6 mg PO BID JOHANNA Stop: 10/03/22 20:59 Last Admin: 09/05/22 08:10 Dose: Not Given PG Care Time/CCT Total # of Minutes Spent Total Time Spent with Patient: Total time spent is greater than 50% in coordination of care (as documented) at patient's floor/unit and/or counseling patient: Coding Level of Care Code 31144 Subseq Hosp Care Lvl 3 Diagnoses Multifocal atrial tachycardia I47.1 Heart failure with mid-range ejection fraction I50.22 Acute on chronic HFrEF (heart failure with reduced ejection fraction) I50.23 Pulmonary hypertension I27.20 Cardiomyopathy I42.9 Elevated troponin R77.8
--- NOTE | 2022-09-05 14:13 | Discharge Summary ---
Date of Service September 05, 2022 Admission HPI Per Admitting Provider Radha Tello is a 67-year-old female with a past medical history of CHF with EF 40- 45% at baseline, A. fib on anticoagulation with Eliquis, adrenal insufficiency, depression, asthma, COPD, pulmonary nodules, GERD, carotid stenosis, chronic cerebral ischemia, CKD 3B, impaired fasting glucose recently admitted 08/19- 08/21 for A. fib with RVR and CHF who read presents with A. fib RVR, acute on chronic CHF with clinical fluid overload and acute respiratory failure. Seen the bedside. She reports that about 4 days ago she began having progressively worsening shortness of breath with some wheezing. She also notes a increase in sputum production which has changed to a yellowish-greenish color which is unusual for her. She reports she still has leg swelling, but her leg swelling is actually better than baseline and has gradually improved with outpatient Lasix and treatment. She reports she is not sure if she has shortness of breath laying flat because she has not tried since getting out of the hospital, previously this made her very short of breath. She notes that she tries to have a low-salt diet and generally cooks without salt, but did have some deli meat and tomato soup yesterday. She denies chest pain at any point, and denies chest pressure at any point. Does not feel palpitations or heart racing. Denies syncope and presyncope. She endorses a past history of tobacco use which she stopped this month, last cigarette was 08/18. She denies fever, chills, sweats, abdominal pain, nausea, vomiting, diarrhea, constipation, bright red blood per rectum, and melena. Her surrogate decision maker would be her niece Natalia, and confirms full code. Would like it nicotine patch while here. Denies recent alcohol use. Medical History: Reviewed Medications: Reviewed Surgical History: Reviewed Allergies: Reviewed Social History: Recently quit smoking, no etoh Code Status: Full Discharge Data Allergies Allergy/AdvReac Type Severity Reaction Status Date / Time No Known Allergies Allergy Verified 09/03/22 13:53 Consultations 09/03/22 16:31 ED Decision to Admit Stat 09/04/22 08:26 Consult Cardiology Routine 09/04/22 17:01 [facility] [place] CHF Program Referral Routine Hospital Course (1) Multifocal atrial tachycardia: Previously diagnosed as atrial fibrillation but on review by admitting physician, myself and cardiology agree no evidence of atrial fibrillation and suspect this was a multifocal atrial tachycardia during last admission as well Discussed with cardiology and will discontinue Eliquis - she has no other reason to be on this. Discontinue diltiazem IV drip Increase metoprolol per cardiology recommendations -> 50mg PO daily, discussed care with Dr Sinclair at bedside (2) Metabolic alkalosis: suspect secondary to loop diuretics + apparent mineralocorticoid excess with fludrocortisone/hydrocortisone (3) Heart failure with mid-range ejection fraction: TTE 08/20/2022: EF 40-45%. Mild global hypokinesis of left ventricle. LV SF mildly reduced. LV normal in size. Grade 2 diastolic dysfunction. Started on Entresto as outpatient for cardiomyopathy Pending dobutamine stress echo scheduling and cardiology follow-up as outpatient High-sensitivity troponin peaked 498 on admission. Trending down. Suspect demand ischemia. Additional Lasix dose by cardiology prescribed for today. (4) COPD (chronic obstructive pulmonary disease): Completed a azithromycin/steroid taper this month COPD intensification deferred at transitional care due to suspicion for incompletely controlled underlying heart failure Continue Advair, nebs as needed No PFTs available for review Given rapid improvement and no wheezing on exam I have a low suspicion for COPD. No need for routine duonebs or steroids. (5) Adrenal insufficiency: Appears to be a relatively questionable diagnosis per last endocrinology note. Mainly continued this because she felt better on them. Received methylprednisolone 125 load in ER I'm unclear what she should be taking but I suspect her steroids are causing her metabolic alkalosis and contributing towards hypokalemia. Will transition back to last endocrinology note with hydrocortisone 15 + 5 tomorrow. (6) Hypokalemia: Resolved with supplementation Agree with holding Florinef (7) Peripheral edema: (8) Hypomagnesemia: Mg level back to 2.0 today Continue oral supplementation (9) Asthma: (10) Hypertension: Continue Entresto (11) Hyperlipidemia: Continue statin (12) GERD (gastroesophageal reflux disease): Continue PPI, H2 (13) Carotid artery stenosis: Continue aspirin and statin (14) Chronic cerebral ischemia: (15) History of revision of total replacement of right hip joint: (16) Chronic renal failure, stage 3b: (17) History of brain surgery: (18) Steroid-induced hyperglycemia: Novolog: correction factor 45, aim 110-140 (19) History of pulmonary embolism: Provoked in the setting of hip fracture Lovenox 40mg SQ daily starting tomorrow Plan DVT prophylaxis: We will switch to Lovenox in a.m. Diet: Heart healthy, low-sodium. Disposition: PCU CODE STATUS: Full code Discharge Plan Discharge Items Patient Disposition: Home - Self-Care Reason For Visit: AHRF, AOC CHF ?COPD Discharge Diagnosis: Acute congestive heart failure Multifocal atrial tachycardia Activity: Resume your previous activity Non-emergency contact: Primary Care Provider Call non-emergency contact if: your symptoms worsen Follow-up/Referrals: Edwin Valdez MD [Primary Care Provider] - Homer Sinclair MD [Physician] - (Follow up multifocal tachycardia, heart failure 4-6 weeks) Debora Saenz PA-C [Physician Pre K Lead Teacher] - 09/14/22 10:30 am (Follow up heart failure 1-2 weeks) Diet: Carb Consistent or DM2 and Low Sodium (2gm) Addtl Attending Provider Instructions: You were admitted to [facility] from September 03 - 2021 due to shortness of breath. You were diagnosed with acute congestive heart failure with multifocal atrial tachycardia. On review by cardiology of your previous admission found no evidence of atrial fibrillation therefore Eliquis was discontinued. You were treated with Lasix and fludrocortisone discontinued. Please continue on Lasix as prescribed below and follow up with the heart failure clinic. Please see separate heart failure instructions below. Regarding your diabetes your HbA1C was 7.3 therefore Jardiance was prescribed to help with this and reduce risk of hospitalization from heart failure. If this medication is expensive please discuss alternatives with your primary care provider. Addtl Commercial Truck Driver Provider Instructions: Call your Primary Care doctor if any of the following symptoms or problems start or get worse: * Shortness of breath or difficulty breathing * Wake up at night short of breath * Chest pain * Cough * Swelling of your hands, feet, or legs * More fatigued or tired with your normal activity * Palpitations - sudden fast heart beats WEIGHT * Weigh yourself every morning after using the bathroom. * Use the same scale. * Wear the same amount of clothing. * Write your weight down on a chart. * Call your Primary Care doctor if you gain more than 2-3 pounds in 1-2 days. MEDICATIONS * Use this discharge instruction sheet for medication instructions. * Take your medications at the time your doctor ordered. * Do not skip a dose of your medicines. * If you miss a dose of medicine, take it as soon as possible, but DO NOT DOUBLE A DOSE. * Read your medicine information when you get home. * Know all of the side effects of your medicine. If in doubt, ask your pharmacist * Call your Primary Care doctor's office if you have any side effects. * Be sure all of your doctors know what medicine and herbs you take (including cold, flu, and herbal medicine). Take the following with you to your follow-up doctor appointments: * Weight Chart * Medication List * List of questions Do not drink excessive alcohol, beer or wine. Pending Studies at Discharge: No Stand-Alone Forms: My [employer], Smoking Cessation Medications and DC Order Prescriptions: New hydrocortisone 10 mg tablet See Rx Instructions .ROUTE .COMPLEX Qty: 45 0RF Rx Instructions: 10 mg in the morning, 5mg 8 hours later Jardiance 10 mg tablet 10 mg PO DAILY Qty: 30 0RF Continued aspirin [Rocio Low Dose Aspirin] 81 mg tablet,delayed release (DR/EC) 81 mg PO QAM Qty: 90 3RF ondansetron 4 mg tablet,disintegrating 4 mg PO Q6H PRN (Reason: NAUSEA/VOMITING) Qty: 20 1RF hydrocortisone 20 mg tablet 40 mg PO BID PRN (Reason: see specific directions) Qty: 90 2RF Rx Instructions: During times of stress only, take 40mg in the morning and then 20mg 8 hours later. albuterol sulfate [ProAir HFA] 90 mcg/actuation HFA aerosol inhaler 2 inh INHALATION DAILY Qty: 18 5RF fluticasone propion-salmeterol [Advair Diskus] 250-50 mcg/dose blister with device 1 inh inhalation BID Qty: 60 11RF famotidine 20 mg tablet 20 mg PO BID Qty: 90 3RF pantoprazole 40 mg tablet,delayed release (DR/EC) 40 mg PO BID Qty: 90 3RF oxycodone 10 mg tablet 10 mg PO Q6H PRN (Reason: pain) Qty: 180 0RF Narcan 4 mg/actuation spray,non-aerosol 4 mg intranasal DIRECTED PRN (Reason: OVERSEDATION) Rx Instructions: spray 1 dose into ONE nostril; alternate nostrils w each dose until help arrives ipratropium-albuterol 0.5 mg-3 mg(2.5 mg base)/3 mL solution for nebulization 3 ml inhalation Q6H PRN (Reason: wheezing) Qty: 90 3RF albuterol sulfate 2.5 mg /3 mL (0.083 %) solution for nebulization 2.5 mg inhalation Q6H Qty: 90 2RF atorvastatin 40 mg tablet 40 mg PO DAILY Entresto 24-26 mg tablet 1 tab PO BID 30 Days Qty: 60 2RF nicotine [Nicoderm CQ] 14 mg/24 hr patch 24 hour 1 patch transdermal Q24H 14 Days Qty: 14 0RF sennosides [Senokot] 8.6 mg tablet 8.6 mg PO BID diclofenac sodium [Voltaren Arthritis Pain] 1 % Gel 4 g EXT QID Qty: 100 0RF Changed furosemide 20 mg tablet 20 mg PO DAILY Qty: 30 2RF metoprolol succinate [Toprol XL] 25 mg tablet extended release 24 hr 50 mg PO DAILY 30 Days Qty: 30 0RF Discontinued fludrocortisone 0.1 mg tablet 0.1 mg PO DAILY hydrocortisone 20 mg tablet 20 mg PO DAILY Rx Instructions: 20 mg PO see specfific directions; take 20mg tablet in am and then 8 hours l ater take 10mg (1/2 20mg tablet) Eliquis 5 mg Tablet 5 mg PO BID 30 Days Qty: 60 0RF Discharge Orders: Discharge Order (Routine); Ordered 09/05/22 Ordered By: Brandon Donald Admission Data Admit Date/Time: 09/03/22 16:40 Attending Provider: Brandon Donald Admit Provider: Eric Polo Primary Care Provider: Edwin Valdez Other Providers: Eric Polo ; Homer Sinclair ; Debora Saenz Coding Diagnoses Multifocal atrial tachycardia I47.1 Metabolic alkalosis E87.3 Heart failure with mid-range ejection fraction I50.22 COPD (chronic obstructive pulmonary disease) J42 COPD type: chronic bronchitis Chronic bronchitis type: unspecified Adrenal insufficiency E27.40 Hypokalemia E87.6 Peripheral edema R60.9 Hypomagnesemia E83.42 Asthma J45.909 Hypertension I10 Hyperlipidemia E78.5 GERD (gastroesophageal reflux disease) K21.9 Carotid artery stenosis I65.29 Chronic cerebral ischemia I67.82 History of revision of total replacement of right hip joint Z96.641 Chronic renal failure, stage 3b N18.32 History of brain surgery Z98.890 Steroid-induced hyperglycemia R73.9; T38.0X5A History of pulmonary embolism Z86.711
== END 2022-09-05 17:04 | disposition home or self-care (01) | DRG 291 ==
LOC: ED 13:32 → SUATTDRO 16:40 → 2S 16:40

== ENCOUNTER 2022-09-15 16:00 | Inpatient (IN) ==
[2022-09-15] MEDS ORDERED: ALBUT/IPRATROP 3MG/0.5MG NEB 3 ML VIAL NEB STA (16:36)
--- NOTE | 2022-09-15 16:39 | Emergency Department Note ---
Impression & Plan Acute alteration in mental status, Acute hypotension, Acute exacerbation of chronic obstructive pulmonary disease, Hypoxia ED Provider Note NAME: DEEPAK CORTEZ AGE: 67 SEX: F : 1955 ARRIVES VIA: Walk-In INFORMANT: Patient, the patient's niece who is her caregiver ED PROVIDER(S): Bassem Baker DO CHIEF COMPLAINT: Altered mental status HPI: The patient is a 67-year-old female who is a history of COPD as well as CHF who presented to the emergency department for an evaluation of difficulty breathing and altered mental status. The patient has a history of pulmonary embolism but currently does not take blood thinners. There is no reported trauma. The history was obtained from the patient's niece who is also her healthcare consultant. She states that throughout the day she has been very difficult to arouse. She has had lethargy. There is been no reported fever. She has had a productive cough. She denies having any orthopnea. She does have swelling in her legs but she states it is no worse than usual. She has had no hemoptysis. The patient is been compliant with her outpatient medications. ROS: See above HPI for pertinent positives & negatives. A total of 10 systems reviewed and were otherwise negative. PAST MEDICAL HISTORY: See Below PAST SURGICAL HISTORY: See Below FAMILY HISTORY: See Below SOCIAL HISTORY: See Below HOME MEDICATIONS: See Below ALLERGIES: See Below VITALS: See Below PHYSICAL EXAMINATION: GENERAL: The patient is awake to verbal commands. She does follow commands slowly but appropriately. EYES: The conjunctivae are clear. The pupils are round and reactive. EARS, NOSE, MOUTH AND THROAT: The nose is without any evidence of any deformity. Mucous membranes are dry. NECK: The neck is nontender and supple. RESPIRATORY: Diminished breath sounds are noted throughout. There is tachypnea with mild conversational dyspnea. CARDIOVASCULAR: Regular rate and rhythm noted there no murmurs rubs or gallops normal S1 normal S2. GASTROINTESTINAL: The abdomen is soft. Abdomen is nontender. MUSCULOSKELETAL/EXTREMITIES: There is no evidence of gross deformity full range of motion is noted in the hips and shoulders. SKIN: The skin was warm and dry. Pedal edema was noted bilaterally. NEUROLOGIC: Patient is awake to verbal commands. She is oriented to person and place. She does recognize her family member. Strength was symmetric but diminished bilaterally. MEDICAL DECISION MAKING: The patient is a 67-year-old female who presented to the emergency department with her niece who is her primary caregiver for an evaluation of altered mental status. The patient was found to have difficulty breathing as well as hypoxia. She was placed on supple oxygen. She was treated with DuoNeb IV fluids as well as IV steroids. She was also treated with IV antibiotics. I discussed the patient's laboratory and radiographic studies with her and her family member. Because of her ongoing symptoms I discussed her case also with the on-call [facility] hospitalist. They have agreed to evaluate the patient in the emergency department for further management and disposition. Triage Nursing notes reviewed. Prior medical records reviewed Vital Signs: reviewed and remarkable for hypotension. Differential diagnosis: Infection, hypoglycemia, electrolyte abnormalities, overdose, toxicologic, cardiac sources, intracerebral event, neurologic, trauma, as well as other pathologies. ER treatment provided: See below Diagnostics interpreted by me: ECG: EKG was obtained in the emergency department. My interpretation is sinus rhythm at 87 bpm. PVCs were noted. Right bundle branch block pattern was noted. This was compared to a tracing from September 06, 2022. The right bundle branch block pattern is not new compared to the previous tracing. Sinus rhythm has replaced atrial fibrillation compared to the previous rhythm. Cardiac Monitoring: An order was placed for continuous cardiac monitoring. The monitor shows a rate of 67 bpm with sinus rhythm. Laboratory studies: As stated above and show below. Imaging studies: See below Consultation(s): Discussed this case with Dr. Duran who is on-call for the [facility]ist group. Past Med/Surg History Medical History Acute renal failure BEV (acute kidney injury) Asthma PT STATES TAKES RESCUE INHALER DAILY Cardiomyopathy Carotid stenosis, left S/P L CEA (02/18/20) (Prior to CEA patient had 80% LICA stenosis ) Cerebral aneurysm Per records, pt unaware No significant aneurysm noted with head CTA and brain MRI from 01/2020 CKD (chronic kidney disease) stage III CVA (cerebral vascular accident) CVA 02/11/20- no residual effects, follows with [facility], patient was on plavix until ~1 month after left CEA surgery, now on ASA 81mg Depression with anxiety GERD (gastroesophageal reflux disease) Heart failure with mid-range ejection fraction History of Meniere's disease History of prediabetes HGBA1C 6.1% on 01/28/21 History of revision of total replacement of right hip joint 03/25/21 - [facility]; explantation old hardware, wound vac placement. History of septic shock 03/2021 - due to septic R hip; 04/2021 - again due to septic R hip - hospitalized [facility] each admission. Pseudomonas, proteus, oj albicans. Hyperlipidemia Hypertension Multifocal atrial tachycardia Osteoarthritis Pulmonary emboli Pulmonary hypertension RBBB SOB (shortness of breath) Tobacco use disorder Surgical History H/O carotid endarterectomy Left CEA: 02/18/20: Grade view 1 with head lift, MAC#3, ETT 7.0 at [facility] History of appendectomy History of bilateral tubal ligation History of brain surgery 5 years ago ([facility]) History of History of cataract surgery R/L History of section x1 History of cholecystectomy History of cholecystectomy History of colonoscopy History of esophagogastroduodenoscopy (EGD) History of incision and drainage right hip - multiple I/D's, 03/2021-04/2021; [facility]. History of tonsillectomy History of tooth extraction History of total hip arthroplasty RT> with repair S/P carotid endarterectomy Status post revision of total hip replacement (~01/2021) Family History Mother Diabetes Family history of diabetes mellitus Sister Diabetes Family history of diabetes mellitus Arterial thrombosis Amputation of leg Father Heart disease Lung disease Other No family history of adverse response to anesthesia Denies family history of Ovarian cancer Prostate cancer Myocardial infarction Breast cancer Colorectal cancer Social History Smoking Status: Never smoker Tobacco Type: Cigarettes Age Started Using Tobacco: 17; Age Quit Using Tobacco: 65; packs per day: 1; Second Hand Exposure: No; Hx Alcohol Use: No Hx Substance Use: Yes Last Used Substance: Unknown Last Used Substance Other:: 08/31/2021 Substance Use Type Other:: daily use Preferred Language: Czech Communication Ability: Effective Visual Impairment: No Limitations Hearing Ability: Normal Machine Sorter Required: No Beliefs That Will Affect Care: None marital status: Unknown Current Living Situation: Alone Current Living Situation Comment: Son staying with mother current occupational status: retired 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 How many Children do You have: 2 How many Children do You have Comment: 1 child from suicide Feels Safe at Home: Yes Childhood Exposure to Second-Hand Smoke: Yes Dental Care, Regularly: No Physical Activity Frequency: Does not Exercise Seatbelt Use: always Sunscreen Use: No Assistive Devices: Hospital Bed, Walker and Wheelchair Allergies Allergies Allergy/AdvReac Type Severity Reaction Status Date / Time No Known Allergies Allergy Verified 09/14/22 13:08 Home Meds Home Medications Medication Instructions Recorded Confirmed naloxone 4 mg/actuation nasal 4 mg intranasal DIRECTED PRN 06/13/21 09/15/22 spray (Narcan) OVERSEDATION sennosides 8.6 mg tablet (Senokot) 8.6 mg PO BID 08/19/22 09/15/22 atorvastatin 40 mg tablet 40 mg PO DAILY 08/29/22 09/15/22 diclofenac sodium 1 % topical gel 4 g EXT QID PRN Pain 09/14/22 09/15/22 (Voltaren Arthritis Pain) nicotine 21 mg/24 hr daily 1 patch transdermal Q24H 09/14/22 09/15/22 transdermal patch empagliflozin 10 mg tablet 10 mg PO .HAS NOT STARTED 09/15/22 09/15/22 (Jardiance) metoprolol succinate 25 mg 25 mg PO BID 09/15/22 09/15/22 tablet,extended release 24 hr Previous Rx's Medication Instructions Recorded aspirin 81 mg tablet,delayed 81 mg PO QAM #90 tabs 02/06/22 release (Rocio Low Dose Aspirin) ondansetron 4 mg disintegrating 4 mg PO Q6H PRN NAUSEA/VOMITING 02/06/22 tablet #20 tabs albuterol sulfate 90 mcg/actuation 2 inh inhalation DAILY #18 grams 05/24/22 aerosol inhaler (ProAir HFA) hydrocortisone 20 mg tablet 40 mg PO BID PRN see specific 05/24/22 directions #90 tabs Advair Diskus 250 mcg-50 mcg/dose 1 inh inhalation BID #60 ea 05/25/22 powder for inhalation (fluticasone propion-salmeterol) famotidine 20 mg tablet 20 mg PO BID #90 tabs 07/13/22 albuterol sulfate 2.5 mg/3 mL 2.5 mg (3 mL) inhalation Q6H #90 mL 08/02/22 (0.083 %) solution for nebulization ipratropium 0.5 mg-albuterol 3 mg 3 ml inhalation Q6H PRN wheezing 08/02/22 (2.5 mg base)/3 mL nebulization #90 mL soln pantoprazole 40 mg tablet,delayed 40 mg PO BID #90 tabs 08/10/22 release oxycodone 10 mg tablet 10 mg PO Q6H PRN pain #180 tabs 08/23/22 nicotine 14 mg/24 hr daily 1 patch transdermal Q24H 2 weeks 08/29/22 transdermal patch (Nicoderm CQ) #14 ea sacubitril 24 mg-valsartan 26 mg 1 tab PO BID 30 days #60 tabs 08/29/22 tablet (Entresto) hydrocortisone 10 mg tablet See Rx Instructions .Route 09/05/22 .COMPLEX #45 tabs furosemide 40 mg tablet 40 mg PO QAM #90 tabs 09/15/22 metoprolol succinate 50 mg 50 mg PO DAILY #90 tabs 09/15/22 tablet,extended release 24 hr Results & Data (ED) Vital Signs Vital Signs - 24 hr 09/15/22 16:03 09/15/22 16:50 09/15/22 16:50 Temperature 37 C Temperature Source Temporal Artery Scan Pulse Rate 99 H 87 Pulse Rate [Apical] Pulse Rate from SpO2 Sensor 93 H Respiratory Rate 18 30 H Respiratory Effort / Characteristics Non-Labored Respiratory Depth Normal Blood Pressure 103/60 Blood Pressure [Right Arm] Blood Pressure Mean 74 Blood Pressure Mean [Right Arm] Pulse Oximetry 94 88 L 89 L Oxygen Delivery Method Room Air Room Air Room Air Oxygen Flow Rate Sepsis Recent Fever Within 48 Hours No Sepsis New/Unexplained Change in Mental Status No Sepsis Action Taken by Nursing No Action Required Oxygen Flow Rate - Titration 2 Pulse Oximetry Post Tiitration 95 09/15/22 17:00 09/15/22 17:00 09/15/22 17:11 Temperature Temperature Source Pulse Rate 80 93 H Pulse Rate [Apical] Pulse Rate from SpO2 Sensor 80 84 Respiratory Rate 24 25 H Respiratory Effort / Characteristics Respiratory Depth Blood Pressure 85/51 L 85/51 L 82/46 L Blood Pressure [Right Arm] Blood Pressure Mean 62 62 58 Blood Pressure Mean [Right Arm] Pulse Oximetry 92 92 Oxygen Delivery Method Nasal Cannula Nasal Cannula Oxygen Flow Rate 2 2 Sepsis Recent Fever Within 48 Hours Sepsis New/Unexplained Change in Mental Status Sepsis Action Taken by Nursing Oxygen Flow Rate - Titration Pulse Oximetry Post Tiitration 09/15/22 17:16 09/15/22 17:20 09/15/22 16:50 Temperature Temperature Source Pulse Rate 79 78 Pulse Rate [Apical] Pulse Rate from SpO2 Sensor 82 78 Respiratory Rate 24 21 Respiratory Effort / Characteristics Respiratory Depth Blood Pressure 95/57 L Blood Pressure [Right Arm] Blood Pressure Mean 69 Blood Pressure Mean [Right Arm] Pulse Oximetry 100 94 94 Oxygen Delivery Method Nebulizer Nasal Cannula Nasal Cannula Oxygen Flow Rate 2 2 Sepsis Recent Fever Within 48 Hours Sepsis New/Unexplained Change in Mental Status Sepsis Action Taken by Nursing Oxygen Flow Rate - Titration Pulse Oximetry Post Tiitration 09/15/22 17:30 09/15/22 18:01 09/15/22 18:04 Temperature Temperature Source Pulse Rate 77 77 75 Pulse Rate [Apical] Pulse Rate from SpO2 Sensor 77 69 Respiratory Rate 23 20 22 Respiratory Effort / Characteristics Respiratory Depth Blood Pressure 82/46 L 82/46 L 90/57 L Blood Pressure [Right Arm] Blood Pressure Mean 58 58 68 Blood Pressure Mean [Right Arm] Pulse Oximetry 99 97 99 Oxygen Delivery Method Nasal Cannula Nasal Cannula Nasal Cannula Oxygen Flow Rate 2 2 2 Sepsis Recent Fever Within 48 Hours Sepsis New/Unexplained Change in Mental Status Sepsis Action Taken by Nursing Oxygen Flow Rate - Titration Pulse Oximetry Post Tiitration 09/15/22 18:28 09/15/22 18:30 09/15/22 19:00 Temperature Temperature Source Pulse Rate Pulse Rate [Apical] 72 Pulse Rate from SpO2 Sensor 97 H 82 Respiratory Rate 16 Respiratory Effort / Characteristics Respiratory Depth Blood Pressure 115/85 114/67 Blood Pressure [Right Arm] 83/45 L Blood Pressure Mean 95 82 Blood Pressure Mean [Right Arm] 57 Pulse Oximetry 100 100 100 Oxygen Delivery Method Nasal Cannula Nasal Cannula Nasal Cannula Oxygen Flow Rate 2 2 1 Sepsis Recent Fever Within 48 Hours Sepsis New/Unexplained Change in Mental Status Sepsis Action Taken by Nursing Oxygen Flow Rate - Titration Pulse Oximetry Post Tiitration 09/15/22 21:00 Temperature Temperature Source Pulse Rate Pulse Rate [Apical] 67 Pulse Rate from SpO2 Sensor Respiratory Rate 18 Respiratory Effort / Characteristics Respiratory Depth Blood Pressure Blood Pressure [Right Arm] 94/59 L Blood Pressure Mean Blood Pressure Mean [Right Arm] 70 Pulse Oximetry 93 Oxygen Delivery Method Nasal Cannula Oxygen Flow Rate 2 Sepsis Recent Fever Within 48 Hours Sepsis New/Unexplained Change in Mental Status Sepsis Action Taken by Nursing Oxygen Flow Rate - Titration Pulse Oximetry Post Tiitration Home Medications Current Medication List: was personally reviewed by me Laboratory Data Attestation: I reviewed the patient's lab results. Result diagrams: 09/15/22 16:30 09/15/22 16:30 Lab Results 09/15/22 09/15/22 09/15/22 Range/Units 16:09 16:30 16:30 WBC 11.71 H (4.8-10.8) K/ul RBC 3.77 L (3.93-5.22) M/uL Hgb 12.1 (12.0-16.0) g/dl Hct 38.4 (34.1-44.9) % MCV 101.9 H (80.0-100.0) fL MCH 32.1 (25.0-34.0) pg MCHC 31.5 L (32.0-36.0) g/dL RDW Std Deviation 55.8 H (36.4-46.3) fL RDW Coeff of Crow 14.7 H (11.5-14.5) % Plt Count 377 (130-400) K/uL MPV 9.7 (9.4-12.3) fL Immature Gran % (Auto) 1.6 % Neut % (Auto) 73.5 % Lymph % (Auto) 16.7 % [place] % (Auto) 7.6 % Eos % (Auto) 0.3 % Baso % (Auto) 0.3 % Neut # (Auto) 8.61 H (1.4-6.5) K/uL Lymph # (Auto) 1.95 (1.2-3.4) K/uL [place] # (Auto) 0.89 H (0.24-0.82) K/uL Eos # (Auto) 0.03 (0-0.50) K/uL Baso # (Auto) 0.04 (0-0.2) K/uL Immature Gran # (Auto) 0.19 H (0.00-0.02) K/uL ESR (0-30) mm/hr PT 10.5 (9.0-12.0) Seconds INR 1.0 (0.9-1.1) APTT 28.9 (21.0-31.0) Seconds PTT Ratio 1.1 VBG pH (7.36-7.41) VBG pCO2 (38-50) mmHg VBG pO2 mmHg VBG HCO3 mmol/L VBG O2 Saturation % VBG Base Excess mEq/L Sodium (136-145) mmol/L Potassium (3.5-5.1) mmol/L Chloride (98-107) mmol/L Carbon Dioxide (21-32) mmol/L Anion Gap (3-11) BUN (6-23) mg/dl Creatinine (0.6-1.2) mg/dl Est Cr Clr Drug Dosing Est GFR ( Amer) ml/min Est GFR (Non-Af Amer) ml/min BUN/Creatinine Ratio (10-20) Glucose (70-99(Fasting)) mg/dl POC Glucose 109 H (70-99) mg/dl Calcium (8.5-10.1) mg/dl Magnesium (1.7-2.4) mg/dl Total Bilirubin (0.2-1.0) mg/dl AST (13-39) U/L ALT (7-52) U/L Alkaline Phosphatase (34-104) U/L C-Reactive Protein (0-0.5) mg/dl Total Protein (6.0-8.3) gm/dl Albumin (3.4-5.0) gm/dl Globulin (2.5-4.0) gm/dl Albumin/Globulin Ratio (0.9-2) TSH (0.300-4.500) uIu/ml SARS-CoV-2 (PCR) (Negative) Influenza Type A (PCR) (Neg) Influenza Type B (PCR) (Neg) RSV (RT-PCR) (Neg) 09/15/22 09/15/22 09/15/22 Range/Units 16:30 16:30 16:30 WBC (4.8-10.8) K/ul RBC (3.93-5.22) M/uL Hgb (12.0-16.0) g/dl Hct (34.1-44.9) % MCV (80.0-100.0) fL MCH (25.0-34.0) pg MCHC (32.0-36.0) g/dL RDW Std Deviation (36.4-46.3) fL RDW Coeff of Crow (11.5-14.5) % Plt Count (130-400) K/uL MPV (9.4-12.3) fL Immature Gran % (Auto) % Neut % (Auto) % Lymph % (Auto) % [place] % (Auto) % Eos % (Auto) % Baso % (Auto) % Neut # (Auto) (1.4-6.5) K/uL Lymph # (Auto) (1.2-3.4) K/uL [place] # (Auto) (0.24-0.82) K/uL Eos # (Auto) (0-0.50) K/uL Baso # (Auto) (0-0.2) K/uL Immature Gran # (Auto) (0.00-0.02) K/uL ESR 46 H (0-30) mm/hr PT (9.0-12.0) Seconds INR (0.9-1.1) APTT (21.0-31.0) Seconds PTT Ratio VBG pH (7.36-7.41) VBG pCO2 (38-50) mmHg VBG pO2 mmHg VBG HCO3 mmol/L VBG O2 Saturation % VBG Base Excess mEq/L Sodium 144 (136-145) mmol/L Potassium 4.6 (3.5-5.1) mmol/L Chloride 109 H (98-107) mmol/L Carbon Dioxide 29 (21-32) mmol/L Anion Gap 6 (3-11) BUN 23 (6-23) mg/dl Creatinine 1.32 H (0.6-1.2) mg/dl Est Cr Clr Drug Dosing Not Reportable Est GFR ( Amer) 47.9 ml/min Est GFR (Non-Af Amer) 41.3 ml/min BUN/Creatinine Ratio 17.4 (10-20) Glucose 130 H (70-99(Fasting)) mg/dl POC Glucose (70-99) mg/dl Calcium 9.3 (8.5-10.1) mg/dl Magnesium 2.0 (1.7-2.4) mg/dl Total Bilirubin 0.7 (0.2-1.0) mg/dl AST 14 (13-39) U/L ALT 14 (7-52) U/L Alkaline Phosphatase 84 (34-104) U/L C-Reactive Protein (0-0.5) mg/dl Total Protein 6.9 (6.0-8.3) gm/dl Albumin 3.4 (3.4-5.0) gm/dl Globulin 3.5 (2.5-4.0) gm/dl Albumin/Globulin Ratio 1.0 (0.9-2) TSH 0.346 (0.300-4.500) uIu/ml SARS-CoV-2 (PCR) (Negative) Influenza Type A (PCR) (Neg) Influenza Type B (PCR) (Neg) RSV (RT-PCR) (Neg) 09/15/22 09/15/22 09/15/22 Range/Units 16:30 16:36 16:55 WBC (4.8-10.8) K/ul RBC (3.93-5.22) M/uL Hgb (12.0-16.0) g/dl Hct (34.1-44.9) % MCV (80.0-100.0) fL MCH (25.0-34.0) pg MCHC (32.0-36.0) g/dL RDW Std Deviation (36.4-46.3) fL RDW Coeff of Crow (11.5-14.5) % Plt Count (130-400) K/uL MPV (9.4-12.3) fL Immature Gran % (Auto) % Neut % (Auto) % Lymph % (Auto) % [place] % (Auto) % Eos % (Auto) % Baso % (Auto) % Neut # (Auto) (1.4-6.5) K/uL Lymph # (Auto) (1.2-3.4) K/uL [place] # (Auto) (0.24-0.82) K/uL Eos # (Auto) (0-0.50) K/uL Baso # (Auto) (0-0.2) K/uL Immature Gran # (Auto) (0.00-0.02) K/uL ESR (0-30) mm/hr PT (9.0-12.0) Seconds INR (0.9-1.1) APTT (21.0-31.0) Seconds PTT Ratio VBG pH 7.39 (7.36-7.41) VBG pCO2 54 H (38-50) mmHg VBG pO2 20 mmHg VBG HCO3 33 mmol/L VBG O2 Saturation < 60.0 % VBG Base Excess 6.2 mEq/L Sodium (136-145) mmol/L Potassium (3.5-5.1) mmol/L Chloride (98-107) mmol/L Carbon Dioxide (21-32) mmol/L Anion Gap (3-11) BUN (6-23) mg/dl Creatinine (0.6-1.2) mg/dl Est Cr Clr Drug Dosing Est GFR ( Amer) ml/min Est GFR (Non-Af Amer) ml/min BUN/Creatinine Ratio (10-20) Glucose (70-99(Fasting)) mg/dl POC Glucose (70-99) mg/dl Calcium (8.5-10.1) mg/dl Magnesium (1.7-2.4) mg/dl Total Bilirubin (0.2-1.0) mg/dl AST (13-39) U/L ALT (7-52) U/L Alkaline Phosphatase (34-104) U/L C-Reactive Protein 15.43 H (0-0.5) mg/dl Total Protein (6.0-8.3) gm/dl Albumin (3.4-5.0) gm/dl Globulin (2.5-4.0) gm/dl Albumin/Globulin Ratio (0.9-2) TSH (0.300-4.500) uIu/ml SARS-CoV-2 (PCR) NEGATIVE (Negative) Influenza Type A (PCR) Negative (Neg) Influenza Type B (PCR) Negative (Neg) RSV (RT-PCR) Negative (Neg) Administered Medications Albuterol (Albuterol 0.083% Nebu Soln 3 Ml Vial) 2.5 mg INH Q6R JOHANNA; Protocol Stop: 10/15/22 22:42 Last Admin: 09/15/22 23:24 Dose: 2.5 mg Documented By: EML Enoxaparin Sodium (Enoxaparin Inj 40 Mg/0.4 Ml Syr) 40 mg SQ Q12H JOHANNA Stop: 10/15/22 22:59 Last Admin: 12/02/22 23:37 Dose: 40 mg Documented By: GEORGE Famotidine (Famotidine 20 Mg Tab) 20 mg PO BID JOHANNA Stop: 10/15/22 22:42 Last Admin: 09/15/22 23:36 Dose: 20 mg Documented By: GEORGE Fluticasone/Vilanterol (Fluticasone/Vilanterol 200/25mcg 14 Puffs/Inhaler) 1 puffs INH DAILY JOHANNA Stop: 10/15/22 22:59 Last Admin: 09/15/22 23:37 Dose: 1 puffs Documented By: GEORGE Sodium Chloride (Nss 1000ml) 1,000 mls @ 125 mls/hr IV .Q8H JOHANNA Stop: 09/16/22 06:42 Last Admin: 09/15/22 23:18 Dose: 125 mls/hr Documented By: GEORGE Pantoprazole Sodium (Pantoprazole 40 Mg Tab) 40 mg PO BID JOHANNA Stop: 10/15/22 22:42 Last Admin: 09/15/22 23:36 Dose: 40 mg Documented By: GEORGE Discontinued Medications Albuterol (Albut/Ipratrop 3mg/0.5mg Neb 3 Ml Vial) 3 ml NEB NOW STA; Protocol Stop: 09/15/22 16:37 Last Admin: 09/15/22 17:14 Dose: 3 ml Documented By: MURIEL Hydrocortisone Sodium Succinate (Hydrocortisone Sod Succinate 100 Mg/2 Ml Vial) 100 mg IV NOW STA Stop: 09/15/22 19:56 Last Admin: 09/15/22 20:49 Dose: 100 mg Documented By: CANELO Sodium Chloride (Nss 1000ml) 500 mls @ 999 mls/hr IV .Q31M ONE Stop: 09/15/22 18:34 Last Infusion: 09/15/22 18:44 Dose: 0 mls/hr Documented By: Admin: 09/15/22 18:11 Dose: 999 mls/hr Documented By: MURIEL Piperacillin Sod/Tazobactam Sod (Zosyn) 4.5 gm in 120 mls @ 240 mls/hr IV NOW ONE Stop: 09/15/22 18:33 Last Infusion: 09/15/22 21:17 Dose: 0 mls/hr Documented By: Admin: 09/15/22 18:44 Dose: 240 mls/hr Documented By: MURIEL Sodium Chloride (Nss 1000ml) 500 mls @ 999 mls/hr IV .Q31M ONE Stop: 09/15/22 20:02 Last Infusion: 09/15/22 21:49 Dose: 0 mls/hr Documented By: Admin: 09/15/22 20:49 Dose: 999 mls/hr Documented By: CANELO Sodium Chloride (Nss 1000ml) 1,000 mls @ 999 mls/hr IV .Q1H1M ONE Stop: 09/15/22 20:57 Last Admin: 09/15/22 21:53 Dose: Not Given Documented By: CANELO Ioversol (Optiray 320 500ml) 116 ml IV ONCE ONE Stop: 09/15/22 18:25 Last Admin: 09/15/22 18:24 Dose: 116 ml Documented By: JEREMIAH Methylprednisolone (Methylprednisolone 125 Mg/2 Ml Vial) 125 mg IV NOW STA Stop: 09/15/22 19:33 Last Admin: 09/15/22 21:18 Dose: Not Given Documented By: CANELO Imaging Data Radiologist's Impression: Chest X-Ray 09/15/22 16:09 XR chest 1V portable CLINICAL HISTORY: confusion TECHNIQUE: Single frontal radiograph of the chest was obtained. Comparison: Comparison is made to chest radiograph 09/03/2022 FINDINGS: No lines and tubes are seen. Cardiomegaly is noted. The lungs are clear. No evidence of pleural effusion or pneumothorax. IMPRESSION: No acute chest disease. Cardiomegaly is noted. ACT 112: Negative or not required by law. Electronically signed by: Simba Mcclain M.D. 09/15/2022 5:10 PM Chest CTA 09/15/22 17:22 CT angio chest PE protocol CLINICAL HISTORY: PE TECHNIQUE: Multidetector row helical CT of the chest was performed with angiographic protocol. Coronal and sagittal reformations were obtained. Coronal and sagittal MIPS were obtained from the axial data set and were submitted for review. Automated dose lowering techniques and/or adjustment according to patient size were utilized for this exam. CT DOSE: 1058.11 mGy.cm Comparison: Comparison is made to chest 02/27/2022 FINDINGS: Lungs and pleura: Bronchial wall thickening is seen. Heart and pericardium: Heart size is normal. No pericardial effusion. Vessels: Evaluation for pulmonary embolism is limited due to patient motion. No evidence of central, lobar, or segmental embolus. Moderate atherosclerotic disease is seen. Mediastinum and lu: Unremarkable. Chest wall and lower neck: Unremarkable. Abdomen: Unremarkable. Bones: Degenerative changes in the thoracic spine. IMPRESSION: No evidence of pulmonary embolism. Additional findings as above. ACT 112: Negative or not required by law. Electronically signed by: Simba Mcclain M.D. 09/15/2022 7:[address] 09/15/22 17:22 CT head/brain wo con CLINICAL HISTORY: ams Technique: Contiguous axial CT images of the head were acquired from the base of the skull to the vertex without intravenous contrast administration. Images were viewed in brain, subdural and bone windows. Automated dose lowering techniques and/or adjustment according to patient size were utilized for this exam. Comparison: Comparison is made to CT head 02/11/2020 Findings: Areas of decreased attenuation are present in the periventricular and subcortical white matter bilaterally consistent with small vessel ischemic disease. Generalized cerebral atrophy with commensurate enlargement of the ventricles, sulci, and cisterns is also present. There is no acute intracranial hemorrhage or evidence of acute territorial infarction. No shift of the midline structures, mass effect, or extra-axial abnormalities are shown. Atherosclerot ic calcifications are present in the intracranial segments of the internal carotid arteries. Old encephalomalacia in the left occipital lobe is unchanged. Imaged portions of the paranasal sinuses and mastoid air cells are clear. The orbits appear normal. There are no acute fractures of the calvaria or scalp swelling. Impression: No acute intracranial hemorrhage, no evidence of acute territorial infarction or other acute intracranial disease process. ACT 112: Negative or not required by law. Electronically signed by: Simba Mcclain M.D. 09/15/2022 6:53 PM Discharge Plan Visit Data Chief Complaint: Confusion Stated Complaint: CONFUSION, CARDIAC ASSESSMENT ED Provider: Bassem Baker Discharge Problem: Acute alteration in mental status, Acute hypotension, Acute exacerbation of chronic obstructive pulmonary disease, Hypoxia Patient Disposition: Admitted As Inpatient Discharge Instructions Interventions: ED Discharge Assessment Last Done: 09/15/22 22:04
[2022-09-15 16:41] LABS: Basophils # (auto) 0.04 K/uL (0-0.2); Basophils % (auto) 0.3 %; Eosinophils # (auto) 0.03 K/uL (0-0.50); Eosinophils % (auto) 0.3 %; Hematocrit (blood only) 38.4 % (34.1-44.9); Hemoglobin 12.1 g/dl (12.0-16.0); Immature Granulocytes # (auto) 0.19 K/uL (0.00-0.02); Immature Granulocytes % (auto) 1.6 %; Lymphocytes # (auto) 1.95 K/uL (1.2-3.4); Lymphocytes % (auto) 16.7 %; Mean Corpuscular Hemoglobin 32.1 pg (25.0-34.0); Mean Corpuscular Hgb Conc 31.5 g/dL (32.0-36.0); Mean Corpuscular Volume 101.9 fL (80.0-100.0); Mean Platelet Volume 9.7 fL (9.4-12.3); Monocytes # (auto) 0.89 K/uL (0.24-0.82); Monocytes % (auto) 7.6 %; Neutrophils # (auto) 8.61 K/uL (1.4-6.5); Neutrophils % (auto) 73.5 %; Platelet Count 377 K/uL (130-400); RDW Coefficient of Variation 14.7 % (11.5-14.5); RDW Standard Deviation 55.8 fL (36.4-46.3); Red Blood Count 3.77 M/uL (3.93-5.22); White Blood Count 11.71 K/ul (4.8-10.8)
[2022-09-15 16:58] LABS: Partial Thromboplastin Ratio 1.1; Partial Thromboplastin Time 28.9 Seconds (21.0-31.0); Prothrombin Time 10.5 Seconds (9.0-12.0)
[2022-09-15 17:04] LABS: Base Excess VBG 6.2 mEq/L; HCO3 VBG 33 mmol/L; Oxygen Saturation VBG < 60.0 %; PCO2 VBG 54 mmHg (38-50); PO2 VBG 20 mmHg; pH VBG 7.39 (7.36-7.41)
[2022-09-15 17:09] LABS: Alanine Aminotransferase 14 U/L (7-52); Albumin Level 3.4 gm/dl (3.4-5.0); Alkaline Phosphatase 84 U/L (34-104); Anion Gap 6 (3-11); Aspartate Aminotransferase 14 U/L (13-39); BUN Creatinine Ratio 17.4 (10-20); Bilirubin,Total 0.7 mg/dl (0.2-1.0); Blood Urea Nitrogen 23 mg/dl (6-23); Calcium 9.3 mg/dl (8.5-10.1); Carbon Dioxide 29 mmol/L (21-32); Chloride 109 mmol/L (98-107); Est GFR (African American) 47.9 ml/min; Est GFR (Non-African American) 41.3 ml/min; Globulin 3.5 gm/dl (2.5-4.0); Glucose 130 mg/dl (70-99(Fasting)); Potassium 4.6 mmol/L (3.5-5.1); Sodium 144 mmol/L (136-145); Total Protein 6.9 gm/dl (6.0-8.3)
--- NOTE | 2022-09-15 17:11 | XRay Report ---
XR chest 1V portable CLINICAL HISTORY: confusion TECHNIQUE: Single frontal radiograph of the chest was obtained. Comparison: Comparison is made to chest radiograph 09/03/2022 FINDINGS: No lines and tubes are seen. Cardiomegaly is noted. The lungs are clear. No evidence of pleural effus ion or pneumothorax. IMPRESSION: No acute chest disease. Cardiomegaly is noted. ACT 112: Negative or not required by law. Electronically signed by: Simba Mcclain M.D. 09/15/2022 5:10 PM
[2022-09-15 17:17] LABS: Influenza A virus by PCR Negative (Neg); Influenza B virus by PCR Negative (Neg); RSV by PCR Negative (Neg); SARS CoV2 RNA(COVID-19) Ceph NEGATIVE (Negative)
[2022-09-15] MEDS ORDERED: SODIUM CHLORIDE 0.9% 1000ML 500 ML IV ONE ×2 (18:04→19:32)
[2022-09-15] MEDS ORDERED: PIPERACILLIN/TAZOBACTAM 4.5 GM/120 ML BAG IV ONE (18:04)
[2022-09-15] MEDS ORDERED: OPTIRAY 320 500ml IV ONE (18:24)
--- NOTE | 2022-09-15 18:55 | CT Scan Report ---
CT head/brain wo con CLINICAL HISTORY: ams Technique: Contiguous axial CT images of the head were acquired from the base of the skull to the die[place] without intravenous contrast administration. Images were viewed in brain, subdural and bone [facility]. Automated dose lowering techniques and/or adjustment according to patient size were utilized for this exam. Comparison: Comparison is made to CT head 02/11/2020 Findings: Areas of decreased attenuation are present in the periventricular and subcortical white matter bilate rally consistent with small vessel ischemic disease. Generalized cerebral atrophy with commensurate e nlargement of the ventricles, sulci, and cisterns is also present. There is no acute intracranial hem orrhage or evidence of acute territorial infarction. No shift of the midline structures, mass effect, or extra-axial abnormalities are shown. Atherosclerotic calcifications are present in the intracran ial segments of the internal carotid arteries. Old encephalomalacia in the left occipital lobe is unc hanged. Imaged portions of the paranasal sinuses and mastoid air cells are clear. The orbits appear normal. There are no acute fractures of the calvaria or scalp swelling. Impression: No acute intracranial hemorrhage, no evidence of acute territorial infarction or other acute intracra nial disease process. ACT 112: Negative or not required by law. Electronically signed by: Simba Mcclain M.D. 09/15/2022 6:53 PM
--- NOTE | 2022-09-15 19:05 | CT Scan Report ---
CT angio chest PE protocol CLINICAL HISTORY: PE TECHNIQUE: Multidetector row helical CT of the chest was performed with angiographic protocol. Mederos l and sagittal reformations were obtained. Coronal and sagittal MIPS were obtained from the axial lisa a set and were submitted for review. Automated dose lowering techniques and/or adjustment according to patient size were utilized for this exam. CT DOSE: 1058.11 mGy.cm Comparison: Comparison is made to chest 02/27/2022 FINDINGS: Lungs and pleura: Bronchial wall thickening is seen. Heart and pericardium: Heart size is normal. No pericardial effusion. Vessels: Evaluation for pulmonary embolism is limited due to patient motion. No evidence of central, lobar, or segmental embolus. Moderate atherosclerotic disease is seen. Mediastinum and lu: Unremarkable. Chest wall and lower neck: Unremarkable. Abdomen: Unremarkable. Bones: Degenerative changes in the thoracic spine. IMPRESSION: No evidence of pulmonary embolism. Additional findings as above. ACT 112: Negative or not required by law. Electronically signed by: Simba Mcclain M.D. 09/15/2022 7:03 PM
[2022-09-15] MEDS ORDERED: methylPREDNISolone 125 MG/2 ML VIAL IV STA (19:32)
[2022-09-15] MEDS ORDERED: HYDROCORTISONE SOD SUCCINATE 100 MG/2 ML VIAL IV STA (19:55)
[2022-09-15] MEDS ORDERED: SODIUM CHLORIDE 0.9% 1000ML 1,000 ML IV ONE (19:57)
--- NOTE | 2022-09-15 21:18 | History & Physical Report ---
Date of Service September 15, 2022 Assessment & Plan (1) Altered mental status: Plan: Patient is a 67-year-old female with past medical history of DM 2, COPD, heart failure with midrange ejection fraction, cardiomyopathy, pulmonary hypertension, history of pulmonary embolism, possible adrenal insufficiency, hypertension, hyperlipidemia, GERD, and CKD 3 who presents to the hospital for evaluation for confusion. Patient became hypotensive in the emergency department requiring administration of IV fluids as well as stress dosing of hydrocortisone, patient had appropriate response and is currently hemodynamically stable and is alert and oriented x3. Because of this, patient has been admitted to [facility] with telemetry under observation. -Unknown etiology of altered mental status at this time, no infectious causes noted as of yet suspect combination of dehydration with low pressures secondary to possible adrenal insufficiency -Based off of endocrinology's notes, they do not seem 100% convinced that she truly has adrenal insufficiency based off of lab results, but she reacts very well to doses of hydrocortisone, so has been continued -With a history of right hip pain and previous septic arthritis in that joint, ESR and CRP ordered to evaluate for septic arthritis, pending -We will hold off antibiotics for now, as no infectious source has been identified -Continue stress dosing of hydrocortisone, status post 100 mg given at 9 PM on 09/15, continue 50 mg every 6 hours for first 24 hours, then return back to home dosing which is 40 mg twice daily -Status post 1 L of normal saline, continue maintenance IV fluid 125 cc/h -PT and OT consulted, appreciate recommendations -Fall precautions ordered (2) Heart failure with mid-range ejection fraction: Plan: - Last echocardiogram done on 08/20/2022 showed ejection fraction of 40 to 45% with mildly reduced left ventricular systolic function and mild global hypokinesis of the left ventricle, moderate mitral regurg -Holding Entresto, beta-blockade in the setting of hypotension -Jardiance recently discontinued by PCP given confusion -Hold Lasix again in the setting of hypotension and dehydration -Continue ASA -Continue statin (3) Cardiomyopathy: Plan: See plan above (4) Pulmonary hypertension: Plan: -Noted on previous echocardiogram, hold antihypertensives as above (5) Adrenal insufficiency: Plan: -As mentioned previously, endocrinology does not feel that this is true adrenal insufficiency (see endocrinology note on 09/14/2022) -However, patient response so well to steroid therapy and previous admissions to the hospital that endocrinology feels that it is reasonable to continue. -Otherwise see plan above for administration of hydrocortisone. (6) History of septic arthritis: Plan: - Right hip pain for the past few months with a history of septic arthritis in that hip -ESR and CRP ordered, pending at time of writing this note, if really elevated, consider imaging of right hip -For now, patient is not showing any infectious etiology, no significant white count, no fever, good clinical presentation. -Hypotension is present, however, in the setting of dehydration and possible adrenal insufficiency, this makes clinical sense (7) Right hip pain: Plan: See plan above (8) Hypertension: Plan: - Withhold antihypertensives at this time given hypotension (9) Hyperlipidemia: Plan: - Continue atorvastatin (10) Chronic renal failure, stage 3b: Plan: - Stable, avoid nephrotoxic agents (11) Type 2 diabetes mellitus: Plan: - Recently stopped off of Jardiance by PCP -A1c 09/13 was 7.3. -Small basal bolus insulin with sliding scale -Hypoglycemia protocol (12) COPD (chronic obstructive pulmonary disease): Plan: - Stable, not on oxygen at home -Continue home inhalers Disposition: Admit to [facility] with telemetry given hypotension Diet: Carb consistent DVT prophylaxis: Lovenox CODE STATUS: Full code History of Present Illness Chief Complaint: Confusion Primary Care Provider: Edwin Valdez MD Patient is a 67-year-old female with past medical history of DM 2, COPD, heart failure with midrange ejection fraction, cardiomyopathy, pulmonary hypertension, history of pulmonary embolism, possible adrenal insufficiency, hypertension, hyperlipidemia, GERD, and CKD 3 who presents to the hospital for evaluation for confusion. Patient was seen and interviewed in her room but no family was present. Discussed with the patient why she is here, however, her knowledge is limited as to why she is here. She knows where she is, what year it is, as well as who the president is. Reports that she was confused today or at least that is what people are telling her. She does not remember the majority of the day. Reports that she has been able to eat and drink without difficulty. Not having any chest pain or shortness of breath. States that she does have swelling her lower extremities that is at baseline for her. Denies any new medication changes or increased opioid usage. Patient currently takes oxycodone up to 3 times a day for right hip pain. Of note, in terms of her right hip, she did have to have a revision of her prosthetic hip 9 months ago per her history. Since then she has had pain and ambulates via wheelchair at home. Denies any urinary symptoms such as pain with urination, increased frequency, or abdominal tenderness. No fevers, chills, nausea, vomiting, or headache. No other complaints at this time. ED course: Patient was brought to the emergency department via private vehicle with family. She was evaluated by one of her ED providers who ordered lab work and imaging. CT scan of head was unchanged and she had no new intracranial abnormalities. Lab work was significant for mildly elevated white count 11.7, elevated VBG PCO2 of 54, and creatinine 1.32. Patient unfortunately had a decrease in her blood pressure down into the 80s over 40s requiring a fluid bolus and due to her history of possible adrenal insufficiency, she was started on stress dosing of hydrocortisone with 100 mg injection. This did cause an increase in her pressures to a MAP of greater than 65. For this reason the hospitalist service was consulted for admission to the hospital. Allergies Allergy/AdvReac Type Severity Reaction Status Date / Time No Known Allergies Allergy Verified 09/14/22 13:08 Home Medications Medication Instructions Recorded Confirmed Type naloxone 4 mg/actuation nasal 4 mg intranasal DIRECTED PRN 06/13/21 09/15/22 History spray (Narcan) OVERSEDATION aspirin 81 mg tablet,delayed 81 mg PO QAM #90 tabs 02/06/22 09/15/22 Rx release (Rocio Low Dose Aspirin) ondansetron 4 mg disintegrating 4 mg PO Q6H PRN NAUSEA/VOMITING 02/06/22 09/15/22 Rx tablet #20 tabs albuterol sulfate 90 mcg/actuation 2 inh inhalation DAILY #18 grams 05/24/22 09/15/22 Rx aerosol inhaler (ProAir HFA) hydrocortisone 20 mg tablet 40 mg PO BID PRN see specific 05/24/22 09/15/22 Rx directions #90 tabs Advair Diskus 250 mcg-50 mcg/dose 1 inh inhalation BID #60 ea 05/25/22 09/15/22 Rx powder for inhalation (fluticasone propion-salmeterol) famotidine 20 mg tablet 20 mg PO BID #90 tabs 07/13/22 09/15/22 Rx albuterol sulfate 2.5 mg/3 mL 2.5 mg (3 mL) inhalation Q6H #90 mL 08/02/22 09/15/22 Rx (0.083 %) solution for nebulization ipratropium 0.5 mg-albuterol 3 mg 3 ml inhalation Q6H PRN wheezing 08/02/22 09/15/22 Rx (2.5 mg base)/3 mL nebulization #90 mL soln pantoprazole 40 mg tablet,delayed 40 mg PO BID #90 tabs 08/10/22 09/15/22 Rx release sennosides 8.6 mg tablet (Senokot) 8.6 mg PO BID 08/19/22 09/15/22 History oxycodone 10 mg tablet 10 mg PO Q6H PRN pain #180 tabs 08/23/22 09/15/22 Rx atorvastatin 40 mg tablet 40 mg PO DAILY 08/29/22 09/15/22 History nicotine 14 mg/24 hr daily 1 patch transdermal Q24H 2 weeks 08/29/22 09/15/22 Rx transdermal patch (Nicoderm CQ) #14 ea sacubitril 24 mg-valsartan 26 mg 1 tab PO BID 30 days #60 tabs 08/29/22 09/15/22 Rx tablet (Entresto) hydrocortisone 10 mg tablet See Rx Instructions .Route 09/05/22 09/15/22 Rx .COMPLEX #45 tabs diclofenac sodium 1 % topical gel 4 g EXT QID PRN Pain 09/14/22 09/15/22 History (Voltaren Arthritis Pain) nicotine 21 mg/24 hr daily 1 patch transdermal Q24H 09/14/22 09/15/22 History transdermal patch empagliflozin 10 mg tablet 10 mg PO .HAS NOT STARTED 09/15/22 09/15/22 History (Jardiance) furosemide 40 mg tablet 40 mg PO QAM #90 tabs 09/15/22 09/15/22 Rx metoprolol succinate 25 mg 25 mg PO BID 09/15/22 09/15/22 History tablet,extended release 24 hr metoprolol succinate 50 mg 50 mg PO DAILY #90 tabs 09/15/22 09/15/22 Rx tablet,extended release 24 hr Past Med/Surg History Medical History Acute renal failure BEV (acute kidney injury) Asthma PT STATES TAKES RESCUE INHALER DAILY Cardiomyopathy Carotid stenosis, left S/P L CEA (02/18/20) (Prior to CEA patient had 80% LICA stenosis ) Cerebral aneurysm Per records, pt unaware No significant aneurysm noted with head CTA and brain MRI from 01/2020 CKD (chronic kidney disease) stage III CVA (cerebral vascular accident) CVA 02/11/20- no residual effects, follows with [place] neurology, patient was on plavix until ~1 month after left CEA surgery, now on ASA 81mg Depression with anxiety GERD (gastroesophageal reflux disease) Heart failure with mid-range ejection fraction History of Meniere's disease History of prediabetes HGBA1C 6.1% on 01/28/21 History of revision of total replacement of right hip joint 03/25/21 - [facility]; explantation old hardware, wound vac placement. History of septic shock 03/2021 - due to septic R hip; 04/2021 - again due to septic R hip - hospitalized [facility] each admission. Pseudomonas, proteus, oj albicans. Hyperlipidemia Hypertension Multifocal atrial tachycardia Osteoarthritis Pulmonary emboli Pulmonary hypertension RBBB SOB (shortness of breath) Tobacco use disorder Surgical History H/O carotid endarterectomy Left CEA: 02/18/20: Grade view 1 with head lift, MAC#3, ETT 7.0 at [facility] History of appendectomy History of bilateral tubal ligation History of brain surgery 5 years ago (Meniere's treatment/[facility]) History of History of cataract surgery R/L History of section x1 History of cholecystectomy History of cholecystectomy History of colonoscopy History of esophagogastroduodenoscopy (EGD) History of incision and drainage right hip - multiple I/D's, 03/2021-04/2021; [facility]. History of tonsillectomy History of tooth extraction History of total hip arthroplasty RT> with repair S/P carotid endarterectomy Status post revision of total hip replacement (~01/2021) Family History Mother Diabetes Family history of diabetes mellitus Sister Diabetes Family history of diabetes mellitus Arterial thrombosis Amputation of leg Father Heart disease Lung disease Other No family history of adverse response to anesthesia Denies family history of Ovarian cancer Prostate cancer Myocardial infarction Breast cancer Colorectal cancer Social History Smoking Status: Current every day smoker Tobacco Type: Cigarettes Age Started Using Tobacco: 17; Age Quit Using Tobacco: 65; packs per day: 1; Second Hand Exposure: No; Hx Alcohol Use: No Hx Substance Use: Yes Last Used Substance: Unknown Last Used Substance Other:: 08/31/2021 Substance Use Type Other:: daily use Preferred Language: Croatian Communication Ability: Effective Visual Impairment: No Limitations Hearing Ability: Normal Electron Beam Operator Required: No Beliefs That Will Affect Care: None marital status: Unknown Current Living Situation: Alone Current Living Situation Comment: Pt. 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 How many Children do You have: 2 How many Children do You have Comment: 1 child from suicide Other Information That Helps Us Care for You: No Feels Safe at Home: Yes Safety Concerns: Feels Safe At This Time Childhood Exposure to Second-Hand Smoke: Yes Dental Care, Regularly: No Physical Activity Frequency: Does not Exercise Seatbelt Use: always Sunscreen Use: No Assistive Devices: Walker and Wheelchair Review of Systems Review of Systems: All systems reviewed & are unremarkable except as noted in HPI & below Physical Exam Constitutional: well developed, well nourished and + lethargic; no acute distress Eyes: + anicteric sclerae Neck: trachea midline, no thyromegaly Respiratory: normal respiratory effort, lungs clear to auscultation Cardiovascular: Rate/Rhythm: regular rate and regular rhythm Heart Sounds: no murmur Vessels: no JVD Extremities: + edema (1+ pitting edema bilaterally) Gastrointestinal (Abdomen): normal bowel sounds, soft, nontender, no hepatosplenomegaly Musculoskeletal: Head/Neck/Chest: normocephalic and head atraumatic Skin: no rashes, warm and dry Neurologic: moves all extremities Psychiatric: Orientation: oriented to person, oriented to place, oriented to time and cooperative Lymphatic: no cervical lymphadenopathy Results & Data Results & Data ([facility]) Vital Signs (Past 12 Hours) Vital Signs Temp Pulse Pulse Resp BP BP Pulse Ox 09/15/22 19:00 72 16 83/45 L 100 09/15/22 18:30 114/67 100 09/15/22 18:28 115/85 100 09/15/22 18:04 75 22 90/57 L 99 09/15/22 18:01 77 20 82/46 L 97 09/15/22 17:30 77 23 82/46 L 99 09/15/22 16:50 94 09/15/22 17:20 78 21 94 09/15/22 17:16 79 24 95/57 L 100 09/15/22 17:11 93 H 25 H 82/46 L 92 09/15/22 17:00 80 24 85/51 L 92 09/15/22 17:00 85/51 L 09/15/22 16:50 87 30 H 89 L 09/15/22 16:50 88 L 09/15/22 16:03 37 C 99 H 18 103/60 94 O2 Del Method O2 Flow Rate 09/15/22 19:00 Nasal Cannula 1 09/15/22 18:30 Nasal Cannula 2 09/15/22 18:28 Nasal Cannula 2 09/15/22 18:04 Nasal Cannula 2 09/15/22 18:01 Nasal Cannula 2 09/15/22 17:30 Nasal Cannula 2 09/15/22 16:50 Nasal Cannula 2 09/15/22 17:20 Nasal Cannula 2 09/15/22 17:16 Nebulizer 09/15/22 17:11 Nasal Cannula 2 09/15/22 17:00 Nasal Cannula 2 09/15/22 17:00 09/15/22 16:50 Room Air 09/15/22 16:50 Room Air 09/15/22 16:03 Room Air Code Status & VTE Plan VTE Prophylaxis Plan VTE Prophylaxis will be ordered: Yes Supervising Physician Co-Signing Physician Notes Patient seen and examined, chart reviewed, case discussed with Dr. Dooley and I agree with the assessment and plan as above. In brief, patient is a 67yo female with multiple medical comorbidities to include DM, Cardiomyopathy, COPD, CHF, HTN, HLP and possible adrenal insufficiency presenting with altered mental status - somnolence and confusion. Patient hypotensive in the ER which responded to IVF and Hydrocortisone 100mg IV x 1. On exam she is somnolent, arousable. Answering questions appropriately but falling back to sleep Skin - intact HEENT - NC/AT, PERRL, MMM, Neck supple, No JVD Heart - +S1/S2, regular Lungs - CTA anteriorly Abd - soft, NT/ND Ext - warm, well perfused, 1+ pitting edema of bilateral LE. No ecchymosis, redness or fluctuance of right hip, tender with palpation Labs and images reviewed Assessment/Plan -Continue steroids -Follow cultures -Monitor blood pressure - hold antihypertensives for now -Remainder as above
[2022-09-15] MEDS ORDERED: DEXTROSE 50% 50 ML SYRINGE IV PRN (22:43)
[2022-09-15] MEDS ORDERED: SODIUM CHLORIDE 0.9% 1000ML 1,000 ML IV SCH (22:43)
[2022-09-15] MEDS ORDERED: GLUCOSE 10 TAB/TUBE PO PRN (22:43)
[2022-09-15] MEDS ORDERED: GLUCOSE 40% GEL 15 GM TUBE PO PRN (22:43)
[2022-09-15] MEDS ORDERED: CARBOHYDRATES FOR HYPOGLYCEMIA PO PRN (22:43)
[2022-09-15] MEDS ORDERED: ONDANSETRON 4 MG OD TAB PO PRN (22:43)
[2022-09-15] MEDS ORDERED: NALOXONE NASAL SPRAY 4 MG ER HOMEPACK PRN (22:43)
[2022-09-15] MEDS ORDERED: ACETAMINOPHEN 325 MG TAB PO PRN (22:43)
[2022-09-15] MEDS ORDERED: FLUTICASONE/SALMETEROL 250/50 (ADVAIR) 14 PUFF/1 INHALER INH SCH (22:43)
[2022-09-15] MEDS ORDERED: POLYETHYLENE (MIRALAX) 17 GM PACK PO PRN (22:43)
[2022-09-15] MEDS ORDERED: GLUCAGON FOR INJ 1 MG VIAL SQ PRN (22:43)
[2022-09-15] MEDS: ALBUTEROL 0.083% NEBU SOLN 3 ML VIAL INH SCH (23:24)
[2022-09-15] MEDS ORDERED: NALOXONE HCL 0.4 MG/1 ML VIAL/CARP IV PRN (23:25)
[2022-09-15] MEDS: PANTOprazole 40 MG TAB PO SCH (23:36)
[2022-09-15] MEDS: FAMOTIDINE 20 MG TAB PO SCH (23:36)
[2022-09-15] MEDS: FLUTICASONE/VILANTEROL 200/25MCG 14 PUFFS/INHALER INH SCH (23:37)
[2022-09-15] MEDS: ENOXAPARIN INJ 40 MG/0.4 ML SYR SQ SCH (23:37)
[2022-09-16] MEDS: ALBUTEROL 0.083% NEBU SOLN 3 ML VIAL INH SCH ×4 (01:15→18:58)
[2022-09-16] MEDS: HYDROCORTISONE SOD 50 MG in SYRINGE 0 ML IV SCH ×4 (02:02→23:50)
[2022-09-16] MEDS ORDERED: HYDROCORTISONE SOD SUCCINATE 100 MG/2 ML VIAL IV SCH (03:00)
--- NOTE | 2022-09-16 03:23 | Billing Data ---
Date of Service September 15, 2022 Coding Level of Care Code INT OBSERVATION CARE 70M LVL 3
[2022-09-16 07:40] LABS: A calco-baum cmplx NotReported Not Detected (NotDetected); Bact fragilis Not Reported Not Detected (NotDetected); C auris Not Reported Not Detected (NotDetected); Calbicans Not Reported Not Detected (NotDetected); Candida glabrata Not Reported Not Detected (NotDetected); Candida krusei Not Reported Not Detected (NotDetected); Cneoformans/gatti Not Reported Not Detected (NotDetected); Cparapsilosis Not Reported Not Detected (NotDetected); Ctropicalis Not Reported Not Detected (NotDetected); E cloacae compx Not Reported Not Detected (NotDetected); Efaecalis Not Reported DETECTED (NotDetected); Efaecium Not Reported Not Detected (NotDetected); Enterobacterales Not Reported Not Detected (NotDetected); Escherichia coli Not Reported Not Detected (NotDetected); H influenzae Not Reported Not Detected (NotDetected); K aerogenes Not Reported Not Detected (NotDetected); Koxytoca Not Reported Not Detected (NotDetected); Kpneumoniae grp Not Reported Not Detected (NotDetected); Lmonocyt Not Reported Not Detected (NotDetected); N meningitidis Not Reported Not Detected (NotDetected); P aeruginosa Not Reported Not Detected (NotDetected); Proteus spp Not Reported Not Detected (NotDetected); Salmonella spp Not Reported Not Detected (NotDetected); Smarcescens Not Reported Not Detected (NotDetected); Staph lugdunensis Not Reported Not Detected (NotDetected); Staph spp. Not Reported Not Detected (NotDetected); Staphaureus Not Reported Not Detected (NotDetected); Staphepi Not Reported Not Detected (NotDetected); Stenmaltophilia Not Reported Not Detected (NotDetected); Strep agal(GrpB) Not Reported Not Detected (NotDetected); Strep pneum Not Reported Not Detected (NotDetected); Strep pyog (GrpA) Not Reported Not Detected (NotDetected); Strep spp Not Reported Not Detected (NotDetected); VanAB Resistant Gene VRE Not Detected (NotDetected)
[2022-09-16 07:40] LABS: Amphetamines+Metham, Urine Neg (Neg); Barbiturates, Urine Neg (Neg); Benzodiazepine, Urine Neg (Neg); Cocaine, Urine Neg (Neg); MDMA (Ecstacy), Urine Neg (Neg); Methadone, Urine Neg (Neg); Opiate, Urine Neg (Neg); Phencyclidine, Urine Neg (Neg)
[2022-09-16 07:45] LABS: Enterococcus faecalis DETECTED (NotDetected)
[2022-09-16] MEDS: ASPIRIN 81 MG ECTAB PO SCH (08:18)
[2022-09-16] MEDS: FAMOTIDINE 20 MG TAB PO SCH ×2 (08:18→20:03)
[2022-09-16] MEDS: ATORVASTATIN 40 MG TAB PO SCH (08:18)
[2022-09-16] MEDS: NICOTINE 7 MG/24 HR TDSY TD SCH (08:18)
[2022-09-16] MEDS: FLUTICASONE/VILANTEROL 200/25MCG 14 PUFFS/INHALER INH SCH (08:19)
[2022-09-16] MEDS: PANTOprazole 40 MG TAB PO SCH ×2 (08:19→20:03)
[2022-09-16] MEDS: FUROSEMIDE 40 MG TAB PO SCH (08:19)
[2022-09-16] MEDS: INSULIN ASPART PER UNIT SC SCH ×4 (08:27→20:37)
[2022-09-16] MEDS: LANTUS PER UNIT CHARGE SQ SCH ×2 (08:27→20:38)
[2022-09-16 08:44] LABS: Basophils # (auto) 0.03 K/uL (0-0.2); Basophils % (auto) 0.4 %; Hematocrit (blood only) 35.1 % (34.1-44.9); Hemoglobin 10.9 g/dl (12.0-16.0); Immature Granulocytes # (auto) 0.09 K/uL (0.00-0.02); Immature Granulocytes % (auto) 1.1 %; Lymphocytes # (auto) 1.37 K/uL (1.2-3.4); Lymphocytes % (auto) 16.3 %; Mean Corpuscular Hemoglobin 31.9 pg (25.0-34.0); Mean Corpuscular Hgb Conc 31.1 g/dL (32.0-36.0); Mean Corpuscular Volume 102.6 fL (80.0-100.0); Mean Platelet Volume 9.2 fL (9.4-12.3); Monocytes % (auto) 1.2 %; Platelet Count 340 K/uL (130-400); RDW Coefficient of Variation 14.6 % (11.5-14.5); RDW Standard Deviation 54.7 fL (36.4-46.3); Red Blood Count 3.42 M/uL (3.93-5.22); White Blood Count 8.39 K/ul (4.8-10.8)
[2022-09-16] MEDS ORDERED: ALBUTEROL HFA 8 GM INHALER INH SCH (09:00)
[2022-09-16 09:11] LABS: BUN Creatinine Ratio 23.1 (10-20); Calcium 8.5 mg/dl (8.5-10.1); Creatinine Clr Calc Pharmacy 50.4 ml/min; Est GFR (African American) 61.1 ml/min; Est GFR (Non-African American) 52.7 ml/min; Potassium 4.3 mmol/L (3.5-5.1)
[2022-09-16] MEDS: PIPERACILLIN/TAZOBACTAM 3.375 GM in DEXTROSE 5% 100 ML IV SCH ×2 (09:58→17:34)
[2022-09-16] MEDS: SODIUM CHLORIDE 0.9% 1000ML 1,000 ML IV SCH ×2 (09:58→22:02)
[2022-09-16] MEDS: ENOXAPARIN INJ 40 MG/0.4 ML SYR SQ SCH ×2 (12:18→22:02)
--- NOTE | 2022-09-16 14:30 | XCELERA ---
[id number] \\[id number]
--- NOTE | 2022-09-16 14:32 | Electrocardiogram Report ---
Test Reason : Blood Pressure : / mmHG Vent. Rate : 087 BPM Atrial Rate : 087 BPM P-R Int : 142 ms QRS Dur : 108 ms QT Int : 380 ms P-R-T Axes : 000 042 039 degrees QTc Int : 457 ms Poor data quality, interpretation may be adversely affected Sinus rhythm with occasional Premature ventricular complexes Right bundle branch block Abnormal ECG When compared with ECG of 03-SEP-2022 15:35, Previous ECG has undetermined rhythm, needs review Confirmed by Bassem Jenkins ([id number]) on 09/16/2022 2:31:48 PM Referred By: REFERRED SELF Confirmed By:Bassem Jenkins
--- NOTE | 2022-09-16 15:23 | Hospitalist Progress Note ---
Date of Service September 16, 2022 Assessment & Plan (1) Altered mental status: Plan: Appears to be due to metabolic encephalopathy. Now resolved. Supportive care. Treat underlying infectious process. (2) Heart failure with mid-range ejection fraction: Plan: Last echocardiogram done on 08/20/2022 showed ejection fraction of 40 to 45% with mildly reduced left ventricular systolic function and mild global hypokinesis of the left ventricle, moderate mitral regurg. Treated with Entresto and beta-blockers. Will monitor intake and output. Lasix held on admission. -Continue ASA -Continue statin (3) Cardiomyopathy: Plan: Known ejection fraction of 40%. Monitor intake and output. Continue current medication therapy (4) Pulmonary hypertension: Plan: Noted on previous echocardiogram. (5) Adrenal insufficiency: Plan: Chronic with steroid dependence. Currently on intravenous hydrocortisone. Will eventually switch back to oral prednisone dosing. (6) History of septic arthritis: Plan: Right hip pain for the past few months with a history of septic arthritis in that hip. May require further imaging. (7) Right hip pain: Plan: History of septic arthritis in the past. Hopefully this is not recurrent. Right hip may need repeat imaging studies. Will follow (8) Hypertension: Plan: Withhold antihypertensives at this time given hypotension present on admission (9) Hyperlipidemia: Plan: Treated with atorvastatin (10) Chronic renal failure, stage 3b: Plan: Stable. Monitor intake and output. Serial lab studies (11) Type 2 diabetes mellitus: Plan: Recently stopped Jardiance by PCP. A1c 09/13 was 7.3. ADA diet. Sliding scale coverage as needed. Hypoglycemia protocol if needed (12) COPD (chronic obstructive pulmonary disease): Plan: Stable, not on oxygen at home. Continue home inhalers (13) Bacteremia: Plan: Gram-positive cocci in chains seen on 4 out of 4 blood cultures. Probable strep pneumonia. Await urine culture results. May need further imaging of the right hip since she has a history of septic arthritis of the right hip. ID consult requested (14) Steroid dependence: Plan: Currently on intravenous hydrocortisone. Eventual switch back to oral prednisone Plan To be determined Admission and Anticipated Discharge Date Admission Date: September 15, 2022 Subjective Alert and oriented. No acute distress. Borderline blood pressure this morning responded to IV fluid bolus and continuous IV drip. Blood cultures are pending. She has evidence of pneumonia on chest x-ray and is currently on Rocephin and azithromycin. Potassium has been replaced. Heart rate controlled with diltiazem drip on admission. Review of Systems Review of Systems: Constitutional-no fever or chills ENT-no blurred vision, no double vision, no epistaxis, no sore throat Respiratory-occasionally productive cough. No hemoptysis. No wheezing, no shortness of breath Cardiac-no palpitations, no chest pain, no syncope GI-no nausea, vomiting, diarrhea, melena, hematochezia -no urinary retention, no urinary incontinence, no dysuria, no hematuria Musculoskeletal-no joint pain, no muscle tenderness Skin-no bruising, no rashes, no pruritus Neuro-no isolated weakness, no paresthesia, no weakness Psych-no depression, no anxiety Physical Exam Physical Exam: General-alert and oriented x3, no fevers, no chills HEENT-head atraumatic and normocephalic, pupils equal and reactive to light, extraocular muscles intact Neck-no lymphadenopathy or thyromegaly, trachea midline Chest-scattered bilateral rhonchi. No wheezing. No wheezing Cardiac-regular rate and rhythm, normal S1 and S2, Abdomen-normal bowel sounds, nontender, no hepatosplenomegaly Extremities-no cyanosis, clubbing, or edema Neuro-cranial nerves II through XII intact, motor and sensory function within normal limits, strength symmetrical , no focal deficits Psych-normal affect, normal mood Results & Data Results & Data ([facility]) Vital Signs (Past 12 Hours) Vital Signs Temp Pulse Pulse Resp BP BP Pulse Ox 09/16/22 12:44 83 16 92 09/16/22 12:00 36.9 C 76 18 125/75 96 09/16/22 10:53 09/16/22 09:13 09/16/22 07:00 70 09/16/22 08:00 36.6 C 74 20 145/76 H 96 09/16/22 07:20 65 16 98 09/16/22 03:51 36.5 C 69 16 133/84 100 Pulse Ox O2 Del Method O2 Del Method 09/16/22 12:44 Room Air 09/16/22 12:00 Room Air 09/16/22 10:53 Room Air 09/16/22 09:13 98 Room Air 09/16/22 07:00 09/16/22 08:00 Room Air 09/16/22 07:20 Room Air 09/16/22 03:51 Room Air Laboratory Results 09/16/22 08:35 09/16/22 08:35 PG Care Time/CCT Total # of Minutes Spent Total Time Spent with Patient: Total time spent is greater than 50% in coordination of care (as documented) at patient's floor/unit and/or counseling patient: Coding Level of Care Code 32785 Subseq Hosp Care Lvl 3 Diagnoses Altered mental status R41.82 Heart failure with mid-range ejection fraction I50.22 Cardiomyopathy I42.9 Pulmonary hypertension I27.20 Adrenal insufficiency E27.40 History of septic arthritis Z87.39 Right hip pain M25.551 Hypertension I10 Hyperlipidemia E78.5 Chronic renal failure, stage 3b N18.32 Type 2 diabetes mellitus E11.9 COPD (chronic obstructive pulmonary disease) J44.9 Bacteremia R78.81 Steroid dependence F19.20
[2022-09-16] MEDS: oxyCODONE/ACETAMINOPHEN 5mg/325mg TAB PO PRN (18:40)
[2022-09-16] MEDS: VALSARTAN/SACUBITRIL 26/24MG TAB PO SCH (20:03)
[2022-09-17] MEDS: PIPERACILLIN/TAZOBACTAM 3.375 GM in DEXTROSE 5% 100 ML IV SCH ×3 (00:40→17:00)
[2022-09-17] MEDS: ALBUTEROL 0.083% NEBU SOLN 3 ML VIAL INH SCH ×6 (01:43→19:14)
[2022-09-17] MEDS: ALBUT/IPRATROP 3MG/0.5MG NEB 3 ML VIAL INH PRN ×2 (01:43→13:05)
[2022-09-17] MEDS: HYDROCORTISONE SOD 50 MG in SYRINGE 0 ML IV SCH (08:15)
[2022-09-17] MEDS: ASPIRIN 81 MG ECTAB PO SCH (08:15)
[2022-09-17] MEDS: PANTOprazole 40 MG TAB PO SCH ×2 (08:15→21:16)
[2022-09-17] MEDS: INSULIN ASPART PER UNIT SC SCH ×4 (08:15→21:16)
[2022-09-17] MEDS: FAMOTIDINE 20 MG TAB PO SCH ×2 (08:16→21:16)
[2022-09-17] MEDS: VALSARTAN/SACUBITRIL 26/24MG TAB PO SCH ×2 (08:16→21:16)
[2022-09-17] MEDS: NICOTINE 7 MG/24 HR TDSY TD SCH (08:16)
[2022-09-17] MEDS: FUROSEMIDE 40 MG TAB PO SCH (08:16)
[2022-09-17] MEDS: FLUTICASONE/VILANTEROL 200/25MCG 14 PUFFS/INHALER INH SCH (08:16)
[2022-09-17] MEDS: ATORVASTATIN 40 MG TAB PO SCH (08:16)
[2022-09-17] MEDS: LANTUS PER UNIT CHARGE SQ SCH ×2 (08:20→21:16)
[2022-09-17] MEDS: SODIUM CHLORIDE 0.9% 1000ML 1,000 ML IV SCH (09:50)
[2022-09-17] MEDS: ENOXAPARIN INJ 40 MG/0.4 ML SYR SQ SCH ×2 (12:25→22:09)
--- NOTE | 2022-09-17 13:13 | CT Scan Report ---
RIGHT HIP CT CT DOSE: 722.98 mGy.cm HISTORY: Right hip pain. possible recurrent septic joint TECHNIQUE: Multiaxial CT images of the right hip were performed and reformatted in the sagittal and c oronal plane without the use of contrast. A dose lowering technique was utilized adhering to the ghada ncicurt of MARY LOU. COMPARISON: Abdomen and pelvis CT 11/03/2021. FINDINGS: There is a right total hip arthroplasty with multiple cerclage wires within the proximal ri ght femur. This results in significant metallic artifact and suboptimal evaluation of the right hip. However, there is no definite acute fracture or dislocation within the right hip. Some of the old pro ximal femoral fractures do not demonstrate complete union. This is likely chronic. No destructive karine nges to suggest an osteomyelitis. No significant hip effusion. Skin thickening and subcutaneous edema /fat stranding within the right lateral hip. This favors a cellulitis. No loculated fluid collections to suggest an abscess. More focal area of linear soft tissue thickening within the right lateral hip subcutaneous soft tissues favors prior incision site. No significant hip effusion. Subcutaneous gas within the right lower quadrant abdominal wall favors a medication injection. IMPRESSION: 1. Right total arthroplasty again noted. 2. No acute fracture or dislocation. 3. No significant hip effusion. 4. Skin thickening and subcutaneous edema/fat stranding within the lateral aspect of the right hip. T his favors a cellulitis. No definite loculated fluid collections to suggest an abscess ACT 112: Negative or not required by law. Electronically signed by: Brandon Duggan M.D. 09/17/2022 1:11 PM
[2022-09-17] MEDS: predniSONE 5 MG TAB PO SCH (13:53)
--- NOTE | 2022-09-17 14:07 | Hospitalist Progress Note ---
Date of Service September 17, 2022 Assessment & Plan (1) Altered mental status: Plan: Appeared to be due to metabolic encephalopathy. Now resolved. Supportive care. Treat underlying infectious process. (2) Heart failure with mid-range ejection fraction: Plan: Last echocardiogram done on 08/20/2022 showed ejection fraction of 40 to 45% with mildly reduced left ventricular systolic function and mild global hypokinesis of the left ventricle, moderate mitral regurg. Treated with Entresto and beta-blockers. Will monitor intake and output. Lasix held on admission. Continue ASA. Continue statin (3) Cardiomyopathy: Plan: Known ejection fraction of 40%. Monitor intake and output. Continue current medication therapy (4) Pulmonary hypertension: Plan: Noted on previous echocardiogram. (5) Adrenal insufficiency: Plan: Chronic with steroid dependence. Initially treated with intravenous hydrocortisone and subsequently switched back to her usual oral prednisone dosage today, September 17. (6) History of septic arthritis: Plan: Right hip pain for the past few months with a history of septic arthritis in that hip. She now has a spacer in place as they [employer] hardware has previously been removed. Will obtain CT scan today, September 17 . (7) Right hip pain: Plan: History of septic arthritis in the past. Hopefully this is not recurrent. Right hip CT scan pending. (8) Hypertension: Plan: BP meds on hold considering she was hypotensive on admission. Will follow and restart if needed (9) Hyperlipidemia: Plan: Treated with atorvastatin (10) Chronic renal failure, stage 3b: Plan: Stable. Monitor intake and output. Serial lab studies (11) Type 2 diabetes mellitus: Plan: Jardiance recently discontinued by PCP. A1c 09/13 was 7.3. ADA diet. Sliding scale coverage as needed. Hypoglycemia protocol if needed (12) COPD (chronic obstructive pulmonary disease): Plan: Stable, not on oxygen at home. Continue home inhalers (13) Bacteremia: Plan: Gram-positive cocci in chains seen on 4 out of 4 blood cultures. Probable Enter ococcus. ID consult requested. Currently on Zosyn, day 2 (14) Steroid dependence: Plan: Initially treated with intravenous hydrocortisone. Switched back to her usual oral prednisone dosage today, September 17. Plan To be determined Admission and Anticipated Discharge Date Admission Date: Anticipate eventual discharge back to her home possibly with intravenous antibiotic therapy Subjective Alert and oriented. No new complaints. She states she has a spacer in the right hip since the previous hemiarthroplasty instrumentation has been removed. All of this occurred 2 years ago due to infection. Will repeat right hip CT scan to reevaluate the possibility of infectious process involving the right hip. Repeat blood cultures again today. We will repeat every 2 days until negative. Oral intake is adequate, IV fluids discontinued. Intravenous h ydrocortisone switched back to her usual prednisone 5 mg daily Review of Systems Review of Systems: Constitutional-no fever or chills ENT-no blurred vision, no double vision, no epistaxis, no sore throat Respiratory-occasionally productive cough. No hemoptysis. No wheezing, no shortness of breath Cardiac-no palpitations, no chest pain, no syncope GI-no nausea, vomiting, diarrhea, melena, hematochezia -no urinary retention, no urinary incontinence, no dysuria, no hematuria Musculoskeletal-no joint pain, no muscle tenderness Skin-no bruising, no rashes, no pruritus Neuro-no isolated weakness, no paresthesia, no weakness Psych-no depression, no anxiety Physical Exam Physical Exam: General-alert and oriented x3, no fevers, no chills HEENT-head atraumatic and normocephalic, pupils equal and reactive to light, extraocular muscles intact Neck-no lymphadenopathy or thyromegaly, trachea midline Chest-scattered bilateral rhonchi. No wheezing. No wheezing Cardiac-regular rate and rhythm, normal S1 and S2, Abdomen-normal bowel sounds, nontender, no hepatosplenomegaly Extremities-no cyanosis, clubbing, or edema Neuro-cranial nerves II through XII intact, motor and sensory function within normal limits, strength symmetrical , no focal deficits Psych-normal affect, normal mood Results & Data Results & Data ([facility]) Vital Signs (Past 12 Hours) Vital Signs Temp Pulse Pulse Resp BP Pulse Ox Pulse Ox 09/17/22 13:05 74 20 97 09/17/22 12:46 94 09/17/22 12:12 37.1 C 80 16 149/83 H 96 09/17/22 11:06 09/17/22 09:13 97 09/17/22 10:38 09/17/22 07:42 36.6 C 94 H 16 163/88 H 97 09/17/22 07:34 94 H 16 97 09/17/22 07:24 81 09/17/22 03:16 36.6 C 64 16 129/72 100 Pulse Ox O2 Del Method O2 Del Method O2 Flow Rate 09/17/22 13:05 Room Air 09/17/22 12:46 09/17/22 12:12 Room Air 09/17/22 11:06 Room Air 09/17/22 09:13 Room Air 09/17/22 10:38 94 0 09/17/22 07:42 Room Air 09/17/22 07:34 Room Air 09/17/22 07:24 09/17/22 03:16 Room Air Laboratory Results 09/16/22 08:35 09/16/22 08:35 PG Care Time/CCT Total # of Minutes Spent Total Time Spent with Patient: Total time spent is greater than 50% in coordination of care (as documented) at patient's floor/unit and/or counseling patient: Coding Level of Care Code 86055 Subseq Hosp Care Lvl 3 Diagnoses Altered mental status R41.82 Heart failure with mid-range ejection fraction I50.22 Cardiomyopathy I42.9 Pulmonary hypertension I27.20 Adrenal insufficiency E27.40 History of septic arthritis Z87.39 Right hip pain M25.551 Hypertension I10 Hyperlipidemia E78.5 Chronic renal failure, stage 3b N18.32 Type 2 diabetes mellitus E11.9 COPD (chronic obstructive pulmonary disease) J44.9 Bacteremia R78.81 Steroid dependence F19.20
[2022-09-17] MEDS: oxyCODONE/ACETAMINOPHEN 5mg/325mg TAB PO PRN ×2 (16:59→23:11)
[2022-09-18] MEDS: ALBUTEROL 0.083% NEBU SOLN 3 ML VIAL INH SCH ×3 (00:27→12:37)
[2022-09-18] MEDS: PIPERACILLIN/TAZOBACTAM 3.375 GM in DEXTROSE 5% 100 ML IV SCH (00:47)
[2022-09-18 06:22] LABS: Marijuana Quant, GCMS Urine 1174 ng/mL (<5)
[2022-09-18 08:41] LABS: Basophils # (auto) 0.06 K/uL (0-0.2); Basophils % (auto) 0.6 %; Hematocrit (blood only) 34.6 % (34.1-44.9); Hemoglobin 11.1 g/dl (12.0-16.0); Immature Granulocytes # (auto) 0.42 K/uL (0.00-0.02); Immature Granulocytes % (auto) 4.1 %; Lymphocytes # (auto) 3.62 K/uL (1.2-3.4); Lymphocytes % (auto) 35.7 %; Mean Corpuscular Hemoglobin 31.9 pg (25.0-34.0); Mean Corpuscular Hgb Conc 32.1 g/dL (32.0-36.0); Mean Corpuscular Volume 99.4 fL (80.0-100.0); Monocytes # (auto) 0.83 K/uL (0.24-0.82); Monocytes % (auto) 8.2 %; Neutrophils % (auto) 51.4 %; Nucleated RBC # (auto) 0.02 K/uL (0-0); Nucleated RBC % (auto) 0.2 %; Platelet Count 381 K/uL (130-400); RDW Coefficient of Variation 14.3 % (11.5-14.5); RDW Standard Deviation 52.2 fL (36.4-46.3); Red Blood Count 3.48 M/uL (3.93-5.22); White Blood Count 10.13 K/ul (4.8-10.8)
[2022-09-18] MEDS: PANTOprazole 40 MG TAB PO SCH (08:46)
[2022-09-18] MEDS: FUROSEMIDE 40 MG TAB PO SCH (08:46)
[2022-09-18] MEDS: AMPICILLIN 2,000 MG in SODIUM CHLOR 0.9% AD-VAN 100 ML IV SCH ×3 (08:46→16:06)
[2022-09-18] MEDS: VALSARTAN/SACUBITRIL 26/24MG TAB PO SCH (08:46)
[2022-09-18] MEDS: predniSONE 5 MG TAB PO SCH (08:46)
[2022-09-18] MEDS: FAMOTIDINE 20 MG TAB PO SCH (08:46)
[2022-09-18] MEDS: ASPIRIN 81 MG ECTAB PO SCH (08:46)
[2022-09-18] MEDS: ATORVASTATIN 40 MG TAB PO SCH (08:47)
[2022-09-18] MEDS: INSULIN ASPART PER UNIT SC SCH ×3 (08:47→16:36)
[2022-09-18] MEDS: NICOTINE 7 MG/24 HR TDSY TD SCH (08:47)
[2022-09-18] MEDS: FLUTICASONE/VILANTEROL 200/25MCG 14 PUFFS/INHALER INH SCH (08:48)
[2022-09-18] MEDS: oxyCODONE/ACETAMINOPHEN 5mg/325mg TAB PO PRN (08:54)
[2022-09-18] MEDS: LANTUS PER UNIT CHARGE SQ SCH (08:55)
[2022-09-18 09:13] LABS: Anion Gap 7 (3-11); BUN Creatinine Ratio 20.4 (10-20); Blood Urea Nitrogen 20 mg/dl (6-23); Calcium 8.5 mg/dl (8.5-10.1); Carbon Dioxide 29 mmol/L (21-32); Chloride 108 mmol/L (98-107); Creatinine Clr Calc Pharmacy 57.1 ml/min; Est GFR (African American) 68.7 ml/min; Est GFR (Non-African American) 59.3 ml/min; Glucose 85 mg/dl (70-99(Fasting)); Sodium 144 mmol/L (136-145)
--- NOTE | 2022-09-18 11:57 | Infectious Disease Consult ---
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 Infectious diseases has been consulted for bacteremia (Ampicillin sensitive Enterococcus See HPI For further details. Patients presenting symptoms of dysuria and AMS. She also carries a history of R hip spacer (w/retained wire). Imaging showed cellulitis. Patient, exam and discussion with hospitalist, no overlying erythema or pain. Hip pain has been unchanged over several months. Therefore clinical picture not c/w imaging. She also grew multiple species in her urine not speciated. She also quickly improved on Zosyn.Repeat cultures from 09/17 are in lab. She has been on coverage for ASE since 09/15, currently day 4). Recommend narrowing to Ampicillin. I would plan to complete therapy x [address] A/P in 10/2020 did not show any structural disease or nephrolithiasis but has not had repeat imaging. Patient quickly improved on IV Zosyn. While this is likely from UTI cannot rule out entirely R hip given her CT imaging. Clinically and on exam there is no active sign of infection of R hip or overlying cellulitis. I discussed case in depth with Dr. Mckeon. Will plan to treat with IV Ampicillin while in patient and transition to Amoxicillin 1000mg po TID to complete 14 day therapy through 09/29. I am extending to 14 days given treatment with Beta lactam and documented failures in shorter courses with Beta lactams. I would recommend repeat blood cultures in 5-7 days, in addition to repeat CRP/ESR at that time. to ensure no recurrence of infection or alternate untreated source. Recommend -treat with IV Ampicillin while in patient and transition to Amoxicillin 1000mg po TID to complete 14 day therapy through 09/29. -repeat blood cultures in 5-7 days, in addition to repeat CRP/ESR at that time after completion of antibiotics -Close monitoring of R hip/leg/overlying skin -F/U 09/17 blood cultures likely to result tomorrow Discussed with Dr. Mckeon and patient. Thank you for allowing me to participate in the care of your patient. ID will follow with you. Ana Maria Webb MD [facility], [facility] Consultation Information Consultation was provided via telemedicine using two-way real-time interactive telecommunication between the patient and the telemedicine provider. For the duration of the visit, the provider was performing the assessment from a different facility than the patient. This includesuse of bluetooth stethoscope forauscultationperformed by the telepresenter that the telemedicine provider can hear if described in the physical exam. [employer] contact information: Please call [facility] Call Center . (Phone Number For Physician Use Only) After establishing a telemedicine visit, patient was: Patient was verified with two unique identifiers, Patient/authorized rep acknowledged consent and understanding and Gave permission to continue telehealth session History of Present Illness Reason for Consultation: Bacteremia, Gram positive Requesting Physician: Dr. 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 Infectious diseases has been consulted for bacteremia. Patient has a h/o multiple hospital admission. She was seen by [facility] in 2020 for R hip PJI. R MAXIMUS 12/05 complicated by PJI with multiple I+Ds, she was treated with Cefepime and fluconazole. THen changed to po Cipro through 05/20/2021 and continued on Fluconazole until 09/20/2021. Review of cultures shows she grew Pseudomonas and C. albicans. She currently has a spacer in place and there are possible future plans for hip prosthesis. Patient has not recently been on antibiotics. 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 The day of admission she became altered and brought to ED. She recalls having urinary burning and frequency the day before but doesnt recall any information on day of admit. Patient was brought to ED by family. CT scan of head was unchanged and she had no new intracranial abnormalities. Lab work was significant for mildly elevated white count 11.7 and creatinine 1.32.BP decreased to 80s/40s but responded to fluids due to her history of possible adrenal insufficiency, she was started on stress dosing of hydrocortisone with 100 mg injection. Patient was davis cultured, IV Zosyn, Vancomycin started. ID consulted when admission blood cultures grew Ampicillin sensitive enterococcus. CT R hip shows "1. Right total arthroplasty again noted. 2. No acute fracture or dislocation. 3. No significant hip effusion. 4. Skin thickening and subcutaneous edema/fat stranding within the lateral aspect of the right hip. This favors a cellulitis. No definite loculated fluid collections to suggest an abscess" On my interview today, patient denies any change to hip pain (chronic for past 2 years) No change in pain or movement. No overlying cellulitis or TTP noted. No CP/SOB. See ROS for further details. Patient on IV Zosyn. Allergies Allergy/AdvReac Type Severity Reaction Status Date / Time No Known Allergies Allergy Verified 09/14/22 13:08 Home Medications Medication Instructions Recorded Confirmed Type naloxone 4 mg/actuation nasal 4 mg intranasal DIRECTED PRN 06/13/21 09/15/22 History spray (Narcan) OVERSEDATION aspirin 81 mg tablet,delayed 81 mg PO QAM #90 tabs 02/06/22 09/15/22 Rx release (Rocio Low Dose Aspirin) ondansetron 4 mg disintegrating 4 mg PO Q6H PRN NAUSEA/VOMITING 02/06/22 09/15/22 Rx tablet #20 tabs albuterol sulfate 90 mcg/actuation 2 inh inhalation DAILY #18 grams 05/24/22 09/15/22 Rx aerosol inhaler (ProAir HFA) hydrocortisone 20 mg tablet 40 mg PO BID PRN see specific 05/24/22 09/15/22 Rx directions #90 tabs Advair Diskus 250 mcg-50 mcg/dose 1 inh inhalation BID #60 ea 05/25/22 09/15/22 Rx powder for inhalation (fluticasone propion-salmeterol) famotidine 20 mg tablet 20 mg PO BID #90 tabs 07/13/22 09/15/22 Rx albuterol sulfate 2.5 mg/3 mL 2.5 mg (3 mL) inhalation Q6H #90 mL 08/02/22 09/15/22 Rx (0.083 %) solution for nebulization ipratropium 0.5 mg-albuterol 3 mg 3 ml inhalation Q6H PRN wheezing 08/02/22 09/15/22 Rx (2.5 mg base)/3 mL nebulization #90 mL soln pantoprazole 40 mg tablet,delayed 40 mg PO BID #90 tabs 08/10/22 09/15/22 Rx release sennosides 8.6 mg tablet (Senokot) 8.6 mg PO BID 08/19/22 09/15/22 History oxycodone 10 mg tablet 10 mg PO Q6H PRN pain #180 tabs 08/23/22 09/15/22 Rx atorvastatin 40 mg tablet 40 mg PO DAILY 08/29/22 09/15/22 History nicotine 14 mg/24 hr daily 1 patch transdermal Q24H 2 weeks 08/29/22 09/15/22 Rx transdermal patch (Nicoderm CQ) #14 ea sacubitril 24 mg-valsartan 26 mg 1 tab PO BID 30 days #60 tabs 08/29/22 09/15/22 Rx tablet (Entresto) hydrocortisone 10 mg tablet See Rx Instructions .Route 09/05/22 09/15/22 Rx .COMPLEX #45 tabs diclofenac sodium 1 % topical gel 4 g EXT QID PRN Pain 09/14/22 09/15/22 History (Voltaren Arthritis Pain) nicotine 21 mg/24 hr daily 1 patch transdermal Q24H 09/14/22 09/15/22 History transdermal patch empagliflozin 10 mg tablet 10 mg PO .HAS NOT STARTED 09/15/22 09/15/22 History (Jardiance) furosemide 40 mg tablet 40 mg PO QAM #90 tabs 09/15/22 09/15/22 Rx metoprolol succinate 25 mg 25 mg PO BID 09/15/22 09/15/22 History tablet,extended release 24 hr metoprolol succinate 50 mg 50 mg PO DAILY #90 tabs 09/15/22 09/15/22 Rx tablet,extended release 24 hr amoxicillin 875 mg tablet 875 mg PO BID 14 days #28 tabs 09/18/22 Rx Patient History Medical History Acute renal failure BEV (acute kidney injury) Asthma PT STATES TAKES RESCUE INHALER DAILY Cardiomyopathy Carotid stenosis, left S/P L CEA (02/18/20) (Prior to CEA patient had 80% LICA stenosis ) Cerebral aneurysm Per records, pt unaware No significant aneurysm noted with head CTA and brain MRI from 01/2020 CKD (chronic kidney disease) stage III CVA (cerebral vascular accident) CVA 02/11/20- no residual effects, follows with [facility], patient was on plavix until ~1 month after left CEA surgery, now on ASA 81mg Depression with anxiety GERD (gastroesophageal reflux disease) Heart failure with mid-range ejection fraction History of Meniere's disease History of prediabetes HGBA1C 6.1% on 01/28/21 History of revision of total replacement of right hip joint 03/25/21 - [facility]; explantation old hardware, wound vac placement. History of septic shock 03/2021 - due to septic R hip; 04/2021 - again due to septic R hip - hospitalized [facility] each admission. Pseudomonas, proteus, oj albicans. Hyperlipidemia Hypertension Multifocal atrial tachycardia Osteoarthritis Pulmonary emboli Pulmonary hypertension RBBB SOB (shortness of breath) Tobacco use disorder Surgical History H/O carotid endarterectomy Left CEA: 02/18/20: Grade view 1 with head lift, MAC#3, ETT 7.0 at [facility] History of appendectomy History of bilateral tubal ligation History of brain surgery 5 years ago (Meniere's treatment/[facility]) History of History of cataract surgery R/L History of section x1 History of cholecystectomy History of cholecystectomy History of colonoscopy History of esophagogastroduodenoscopy (EGD) History of incision and drainage right hip - multiple I/D's, 03/2021-04/2021; [facility]. History of tonsillectomy History of tooth extraction History of total hip arthroplasty RT> with repair S/P carotid endarterectomy Status post revision of total hip replacement (~01/2021) Family History Mother Diabetes Family history of diabetes mellitus Sister Diabetes Family history of diabetes mellitus Arterial thrombosis Amputation of leg Father Heart disease Lung disease Other No family history of adverse response to anesthesia Denies family history of Ovarian cancer Prostate cancer Myocardial infarction Breast cancer Colorectal cancer Social History Smoking Status: Current every day smoker Tobacco Type: Cigarettes Age Started Using Tobacco: 17; Age Quit Using Tobacco: 65; packs per day: 1; Second Hand Exposure: No; Hx Alcohol Use: No Hx Substance Use: Yes Last Used Substance: Unknown Last Used Substance Other:: 08/31/2021 Substance Use Type Other:: daily use Preferred Language: Chinese Communication Ability: Effective Visual Impairment: No Limitations Hearing Ability: Normal Wildlife Conservation Officer Required: No Beliefs That Will Affect Care: None marital status: Unknown Current Living Situation: Alone Current Living Situation Comment: Pt. 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 How many Children do You have: 2 How many Children do You have Comment: 1 child from suicide Feels Safe at Home: Yes Childhood Exposure to Second-Hand Smoke: Yes Dental Care, Regularly: No Physical Activity Frequency: Does not Exercise Seatbelt Use: always Sunscreen Use: No Assistive Devices: Hospital Bed, Walker and Wheelchair Review of System Constitutional: as per Subjective / HPI Respiratory: as per Subjective / HPI; no cough, no chest congestion and no dyspnea Gastrointestinal: no bloating, no nausea, no vomiting, no cramping, no change in stools, no constipation and no fecal incontinence Genitourinary (Female): + dysuria, + urinary frequency, + urinary urgency and + vaginal itching Integumentary: no boil, no rash, no lesions, no non-healing lesions, no skin ulcer, no sores and no erythema Physical Exam Constitutional: WD/WN, vitals as above Respiratory: normal respiratory effort, lungs clear to auscultation Gastrointestinal (Abdomen): normal bowel sounds, soft, nontender, no hepatosplenomegaly Musculoskeletal: no cyanosis or clubbing, extremities motor strength 5/5 Skin: no rashes, warm and dry Results & Data ([facility]) Vital Signs (Past 12 Hours) Vital Signs Temp Pulse Pulse Resp BP Pulse Ox Pulse Ox 09/18/22 10:16 09/18/22 09:00 98 09/18/22 08:45 162/80 H 09/18/22 07:42 88 16 95 09/18/22 07:39 36.6 C 102 H 18 166/104 H 95 09/18/22 07:09 80 09/18/22 04:09 36.5 C 79 18 167/77 H 98 09/17/22 23:40 36.7 C 69 20 156/73 H 96 09/18/22 00:30 87 16 97 O2 Del Method O2 Del Method 09/18/22 10:16 Room Air 09/18/22 09:00 Room Air 09/18/22 08:45 09/18/22 07:42 Room Air 09/18/22 07:39 Room Air 09/18/22 07:09 09/18/22 04:09 Room Air 09/17/22 23:40 Room Air 09/18/22 00:30 Room Air Laboratory Results Laboratory Results - last 48 hr 09/16/22 09/16/22 09/16/22 06:10 16:59 20:11 WBC RBC Hgb Hct MCV MCH MCHC RDW Std Deviation RDW Coeff of Crow Plt Count MPV Immature Gran % (Auto) Neut % (Auto) Lymph % (Auto) Stafford % (Auto) Eos % (Auto) Baso % (Auto) Neut # (Auto) Lymph # (Auto) Stafford # (Auto) Eos # (Auto) Baso # (Auto) Immature Gran # (Auto) Absolute Nucleated RBC Nucleated RBC % (auto) Sodium Potassium Chloride Carbon Dioxide Anion Gap BUN Creatinine Est Cr Clr Drug Dosing Est GFR ( Amer) Est GFR (Non-Af Amer) BUN/Creatinine Ratio Glucose POC Glucose 173 H 202 H Calcium U Marijuana THC Carboxy 1174 H Drug Screen Comment SEE NOTE 09/17/22 09/17/22 09/17/22 07:55 11:53 16:24 WBC RBC Hgb Hct MCV MCH MCHC RDW Std Deviation RDW Coeff of Crow Plt Count MPV Immature Gran % (Auto) Neut % (Auto) Lymph % (Auto) Stafford % (Auto) Eos % (Auto) Baso % (Auto) Neut # (Auto) Lymph # (Auto) Stafford # (Auto) Eos # (Auto) Baso # (Auto) Immature Gran # (Auto) Absolute Nucleated RBC Nucleated RBC % (auto) Sodium Potassium Chloride Carbon Dioxide Anion Gap BUN Creatinine Est Cr Clr Drug Dosing Est GFR ( Amer) Est GFR (Non-Af Amer) BUN/Creatinine Ratio Glucose POC Glucose 152 H 165 H 193 H Calcium U Marijuana THC Carboxy Drug Screen Comment 09/17/22 09/18/22 09/18/22 20:50 07:26 07:57 WBC RBC Hgb Hct MCV MCH MCHC RDW Std Deviation RDW Coeff of Crow Plt Count MPV Immature Gran % (Auto) Neut % (Auto) Lymph % (Auto) Stafford % (Auto) Eos % (Auto) Baso % (Auto) Neut # (Auto) Lymph # (Auto) Stafford # (Auto) Eos # (Auto) Baso # (Auto) Immature Gran # (Auto) Absolute Nucleated RBC Nucleated RBC % (auto) Sodium 144 Potassium TNP Chloride 108 H Carbon Dioxide 29 Anion Gap 7 BUN 20 Creatinine 0.98 Est Cr Clr Drug Dosing 57.1 Est GFR ( Amer) 68.7 Est GFR (Non-Af Amer) 59.3 BUN/Creatinine Ratio 20.4 H Glucose 85 POC Glucose 209 H 77 Calcium 8.5 U Marijuana THC Carboxy Drug Screen Comment 09/18/22 09/18/22 09/18/22 07:57 09:59 11:12 WBC 10.13 RBC 3.48 L Hgb 11.1 L Hct 34.6 MCV 99.4 MCH 31.9 MCHC 32.1 RDW Std Deviation 52.2 H RDW Coeff of Crow 14.3 Plt Count 381 MPV 10.0 Immature Gran % (Auto) 4.1 Neut % (Auto) 51.4 Lymph % (Auto) 35.7 Stafford % (Auto) 8.2 Eos % (Auto) 0.0 Baso % (Auto) 0.6 Neut # (Auto) 5.20 Lymph # (Auto) 3.62 H Stafford # (Auto) 0.83 H Eos # (Auto) 0.00 Baso # (Auto) 0.06 Immature Gran # (Auto) 0.42 H Absolute Nucleated RBC 0.02 H Nucleated RBC % (auto) 0.2 Sodium Potassium 2.7 L Chloride Carbon Dioxide Anion Gap BUN Creatinine Est Cr Clr Drug Dosing Est GFR ( Amer) Est GFR (Non-Af Amer) BUN/Creatinine Ratio Glucose POC Glucose 151 H Calcium U Marijuana THC Carboxy Drug Screen Comment Microbiology 09/15/22 16:55 Blood Aerobic Blood Culture - Final Enterococcus faecalis 09/15/22 16:55 Blood Anaerobic Blood Culture - Final Enterococcus faecalis 09/15/22 16:30 Blood Aerobic Blood Culture - Final Enterococcus faecalis 09/15/22 16:30 Blood Anaerobic Blood Culture - Final Enterococcus faecalis 09/16/22 Unknown Urine,Straight Cath Urine Culture - Final Three types of organisms present, all high counts. Repeat collection recommended. No further identifications or sensitivities to follow. Diagnostic Findings Chest X-Ray 09/15/22 16:09 XR chest 1V portable CLINICAL HISTORY: confusion TECHNIQUE: Single frontal radiograph of the chest was obtained. Comparison: Comparison is made to chest radiograph 09/03/2022 FINDINGS: No lines and tubes are seen. Cardiomegaly is noted. The lungs are clear. No evidence of pleural effusion or pneumothorax. IMPRESSION: No acute chest disease. Cardiomegaly is noted. ACT 112: Negative or not required by law. Electronically signed by: Simba Mcclain M.D. 09/15/2022 5:10 PM Chest CTA 09/15/22 17:22 CT angio chest PE protocol CLINICAL HISTORY: PE TECHNIQUE: Multidetector row helical CT of the chest was performed with angiographic protocol. Coronal and sagittal reformations were obtained. Coronal and sagittal MIPS were obtained from the axial data set and were submitted for review. Automated dose lowering techniques and/or adjustment according to patient size were utilized for this exam. CT DOSE: 1058.11 mGy.cm Comparison: Comparison is made to chest 02/27/2022 FINDINGS: Lungs and pleura: Bronchial wall thickening is seen. Heart and pericardium: Heart size is normal. No pericardial effusion. Vessels: Evaluation for pulmonary embolism is limited due to patient motion. No evidence of central, lobar, or segmental embolus. Moderate atherosclerotic disease is seen. Mediastinum and lu: Unremarkable. Chest wall and lower neck: Unremarkable. Abdomen: Unremarkable. Bones: Degenerative changes in the thoracic spine. IMPRESSION: No evidence of pulmonary embolism. Additional findings as above. ACT 112: Negative or not required by law. Electronically signed by: Simba Mcclain M.D. 09/15/2022 7:[address] 09/15/22 17:22 CT head/brain wo con CLINICAL HISTORY: ams Technique: Contiguous axial CT images of the head were acquired from the base of the skull to the vertex without intravenous contrast administration. Images were viewed in brain, subdural and bone windows. Automated dose lowering techniques and/or adjustment according to patient size were utilized for this exam. Comparison: Comparison is made to CT head 02/11/2020 Findings: Areas of decreased attenuation are present in the periventricular and subcortical white matter bilaterally consistent with small vessel ischemic disease. Generalized cerebral atrophy with commensurate enlargement of the ventricles, sulci, and cisterns is also present. There is no acute intracranial hemorrhage or evidence of acute territorial infarction. No shift of the midline structures, mass effect, or extra-axial abnormalities are shown. Atheros clerotic calcifications are present in the intracranial segments of the internal carotid arteries. Old encephalomalacia in the left occipital lobe is unchanged. Imaged portions of the paranasal sinuses and mastoid air cells are clear. The orbits appear normal. There are no acute fractures of the calvaria or scalp swelling. Impression: No acute intracranial hemorrhage, no evidence of acute territorial infarction or other acute intracranial disease process. ACT 112: Negative or not required by law. Electronically signed by: Simba Mcclain M.D. 09/15/2022 6:[address] 09/17/22 12:[address] DOSE: 722.98 mGy.cm HISTORY: Right hip pain. possible recurrent septic joint TECHNIQUE: Multiaxial CT images of the right hip were performed and reformatted in the sagittal and coronal plane without the use of contrast. A dose lowering technique was utilized adhering to the principles of ALARA. COMPARISON: Abdomen and pelvis CT 11/03/2021. FINDINGS: There is a right total hip arthroplasty with multiple cerclage wires within the proximal right femur. This results in significant metallic artifact and suboptimal evaluation of the right hip. However, there is no definite acute fracture or dislocation within the right hip. Some of the old proximal femoral fractures do not demonstrate complete union. This is likely chronic. No destru ctive changes to suggest an osteomyelitis. No significant hip effusion. Skin thickening and subcutaneous edema/fat stranding within the right lateral hip. This favors a cellulitis. No loculated fluid collections to suggest an abscess. More focal area of linear soft tissue thickening within the right lateral hip subcutaneous soft tissues favors prior incision site. No significant hip effusion. Subcutaneous gas within the right lower quadrant abdominal wall favors a medication injection. IMPRESSION: 1. Right total arthroplasty again noted. 2. No acute fracture or dislocation. 3. No significant hip effusion. 4. Skin thickening and subcutaneous edema/fat stranding within the lateral aspect of the right hip. This favors a cellulitis. No definite loculated fluid collections to suggest an abscess ACT 112: Negative or not required by law. Electronically signed by: Brandon Duggan M.D. 09/17/2022 1:11 PM
[2022-09-18] MEDS: ENOXAPARIN INJ 40 MG/0.4 ML SYR SQ SCH (12:13)
--- NOTE | 2022-09-18 16:12 | Discharge Summary ---
Date of Service September 18, 2022 Admission HPI Per Admitting Provider Patient is a 67-year-old female with past medical history of DM 2, COPD, heart failure with midrange ejection fraction, cardiomyopathy, pulmonary hypertension, history of pulmonary embolism, possible adrenal insufficiency, hypertension, hyperlipidemia, GERD, and CKD 3 who presents to the hospital for evaluation for confusion. Patient was seen and interviewed in her room but no family was present. Discussed with the patient why she is here, however, her knowledge is limited as to why she is here. She knows where she is, what year it is, as well as who the president is. Reports that she was confused today or at least that is what people are telling her. She does not remember the majority of the day. Reports that she has been able to eat and drink without difficulty. Not having any chest pain or shortness of breath. States that she does have swelling her lower extremities that is at baseline for her. Denies any new medication changes or increased opioid usage. Patient currently takes oxycodone up to 3 times a day for right hip pain. Of note, in terms of her right hip, she did have to have a revision of her prosthetic hip 9 months ago per her history. Since then she has had pain and ambulates via wheelchair at home. Denies any urinary symptoms such as pain with urination, increased frequency, or abdominal tenderness. No fevers, chills, nausea, vomiting, or headache. No other complaints at this time. ED course: Patient was brought to the emergency department via private vehicle with family. She was evaluated by one of her ED providers who ordered lab work and imaging. CT scan of head was unchanged and she had no new intracranial abnormalities. Lab work was significant for mildly elevated white count 11.7, elevated VBG PCO2 of 54, and creatinine 1.32. Patient unfortunately had a decrease in her blood pressure down into the 80s over 40s requiring a fluid bolus and due to her history of possible adrenal insufficiency, she was started on stress dosing of hydrocortisone with 100 mg injection. This did cause an increase in her pressures to a MAP of greater than 65. For this reason the hospitalist service was consulted for admission to the hospital. Principal Diagnosis Bacteremia Discharge Exam The patient is awake, alert and oriented 3, well developed and well nourished, normocephalic and atraumatic, lying in bed and in no acute distress. HEENT--PERRL, EOMI, mucous membranes and oropharynx mildly dry Neck--supple. No JVD. No bruits. Thyroid normal, trachea midline, no adenopathy. Heart--normal S1 and S2. No murmurs, rubs or gallops. Lungs--clear bilaterally, no respiratory distress, no accessory muscle use. Abdomen--normal bowel sounds and soft. Mild epigastric and left sided abdominal pain Extremities--no cyanosis or clubbing. No edema. Dermatologic--normal skin turgor, normal color, no abnormal lymph nodes, no rash. Neurologic--cranial nerves II through XII grossly intact. Rheumatologic--normal range of motion. Psychiatric--normal affect. Discharge Data Allergies Allergy/AdvReac Type Severity Reaction Status Date / Time No Known Allergies Allergy Verified 09/14/22 13:08 Consultations 09/15/22 19:55 ED Decision to Admit Stat 09/16/22 09:09 Consult Infectious Diseases Routine Ordered Studies 09/15/22 17:22 CT angio chest PE protocol Stat CT head/brain wo con Stat 09/17/22 12:26 CT hip RT wo con Routine Hospital Course (1) Bacteremia: Gram-positive cocci in chains seen on 4 out of 4 blood cultures. Probable Enterococcus. ID consult requested. Currently on Zosyn, day 3 Source is unkwon, could be from her hip given previous history according to the daughter CT shows evidence of a spacer and hardware The daughter made an appointment with her ortho surgeon at [facility] for 09/19 and would like her discharged so she can make the appointmet'The daughter be lives the hip could be the source of the bacreremia, given previous history of same shw will be discharged on PO Amoxiccillin for a total of 14 days as suggested by ID (2) Altered mental status: Appeared to be due to metabolic encephalopathy. Now resolved. Supportive care. Treat underlying infectious process. (3) Heart failure with mid-range ejection fraction: Last echocardiogram done on 08/20/2022 showed ejection fraction of 40 to 45% with mildly reduced left ventricular systolic function and mild global hypokinesis of the left ventricle, moderate mitral regurg. Treated with Entresto and beta-blockers. Will monitor intake and output. Lasix held on admission. Continue ASA. Continue statin (4) Cardiomyopathy: Known ejection fraction of 40%. Monitor intake and output. Continue current medication therapy (5) Pulmonary hypertension: Noted on previous echocardiogram. (6) Adrenal insufficiency: Chronic with steroid dependence. Initially treated with intravenous hydrocortisone and subsequently switched back to her usual oral prednisone dosage today, September 17. (7) History of septic arthritis: Right hip pain for the past few months with a history of septic arthritis in that hip. She now has a spacer in place as they [employer] hardware has previously been removed. Will obtain CT scan today, September 17 . (8) Right hip pain: History of septic arthritis in the past. Hopefully this is not recurrent. Right hip CT scan pending. (9) Hypertension: BP meds on hold considering she was hypotensive on admission. Will follow and restart if needed (10) Hyperlipidemia: Treated with atorvastatin (11) Chronic renal failure, stage 3b: Stable. Monitor intake and output. Serial lab studies (12) Type 2 diabetes mellitus: Jardiance recently discontinued by PCP. A1c 09/13 was 7.3. ADA diet. Sliding scale coverage as needed. Hypoglycemia protocol if needed (13) COPD (chronic obstructive pulmonary disease): Stable, not on oxygen at home. Continue home inhalers (14) Steroid dependence: Initially treated with intravenous hydrocortisone. Switched back to her usual oral prednisone dosage todaySeptember 17. Plan To be determined Total Time Total Time Spent Total Time Spent (In Minutes): 35 Discharge Plan Discharge Items Patient Disposition: Home - Self-Care Reason For Visit: CONFUSION Discharge Diagnosis: bacteremia Activity: Resume your previous activity Non-emergency contact: Primary Care Provider Call non-emergency contact if: you have any medication questions Follow-up/Referrals: Edwin Valdez MD [Primary Care Provider] - Diet: Regular Addtl Attending Provider Instructions: Please keep your appointment with your Ortho surgeon tomorrow at [facility] Pending Studies at Discharge: No Stand-Alone Forms: My Shutl, Smoking Cessation Medications and DC Order Prescriptions: New amoxicillin 875 mg tablet 875 mg PO BID 14 Days Qty: 28 0RF Continued aspirin [Rocio Low Dose Aspirin] 81 mg tablet,delayed release (DR/EC) 81 mg PO QAM Qty: 90 3RF ondansetron 4 mg tablet,disintegrating 4 mg PO Q6H PRN (Reason: NAUSEA/VOMITING) Qty: 20 1RF hydrocortisone 20 mg tablet 40 mg PO BID PRN (Reason: see specific directions) Qty: 90 2RF Rx Instructions: During times of stress only, take 40mg in the morning and then 20mg 8 hours later. albuterol sulfate [ProAir HFA] 90 mcg/actuation HFA aerosol inhaler 2 inh INHALATION DAILY Qty: 18 5RF fluticasone propion-salmeterol [Advair Diskus] 250-50 mcg/dose blister with device 1 inh inhalation BID Qty: 60 11RF famotidine 20 mg tablet 20 mg PO BID Qty: 90 3RF pantoprazole 40 mg tablet,delayed release (DR/EC) 40 mg PO BID Qty: 90 3RF oxycodone 10 mg tablet 10 mg PO Q6H PRN (Reason: pain) Qty: 180 0RF metoprolol succinate 50 mg tablet extended release 24 hr 50 mg PO DAILY Qty: 90 3RF Narcan 4 mg/actuation spray,non-aerosol 4 mg intranasal DIRECTED PRN (Reason: OVERSEDATION) Rx Instructions: spray 1 dose into ONE nostril; alternate nostrils w each dose until help arrives diclofenac sodium [Voltaren Arthritis Pain] 1 % gel 4 g EXT QID PRN (Reason: Pain) nicotine 21 mg/24 hr patch 24 hour 1 patch transdermal Q24H ipratropium-albuterol 0.5 mg-3 mg(2.5 mg base)/3 mL solution for nebulization 3 ml inhalation Q6H PRN (Reason: wheezing) Qty: 90 3RF albuterol sulfate 2.5 mg /3 mL (0.083 %) solution for nebulization 2.5 mg inhalation Q6H Qty: 90 2RF furosemide 40 mg tablet 40 mg PO QAM Qty: 90 3RF atorvastatin 40 mg tablet 40 mg PO DAILY Entresto 24-26 mg tablet 1 tab PO BID 30 Days Qty: 60 2RF nicotine [Nicoderm CQ] 14 mg/24 hr patch 24 hour 1 patch transdermal Q24H 14 Days Qty: 14 0RF sennosides [Senokot] 8.6 mg tablet 8.6 mg PO BID hydrocortisone 10 mg tablet See Rx Instructions .ROUTE .COMPLEX Qty: 45 0RF Rx Instructions: 10 mg in the morning, 5mg 8 hours later metoprolol succinate 25 mg tablet extended release 24 hr 25 mg PO BID Jardiance 10 mg tablet 10 mg PO .HAS NOT STARTED Discharge Orders: Discharge Order (Routine); Ordered 09/18/22 Ordered By: Devante Mckeon Admission Data Admit Date/Time: 09/17/22 16:26 Attending Provider: Devante Mckeon Admit Provider: Theodore Dooley Primary Care Provider: Edwin Valdez Other Providers: Aleta Duran ; Jennifer Stratton ; Dwain Monsivais ; Elaine Schuster ; Ivelisse Cerrato ; Becky Andrews ; Ana Maria Webb ; Janis Valero ; Kaykay Best ; Jessica Bethea Coding Level of Care Code D/C DAY MANAGEMENT >30 MINS Diagnoses Bacteremia R78.81 Altered mental status R41.82 Heart failure with mid-range ejection fraction I50.22 Cardiomyopathy I42.9 Pulmonary hypertension I27.20 Adrenal insufficiency E27.40 History of septic arthritis Z87.39 Right hip pain M25.551 Hypertension I10 Hyperlipidemia E78.5 Chronic renal failure, stage 3b N18.32 Type 2 diabetes mellitus E11.9 COPD (chronic obstructive pulmonary disease) J44.9 Steroid dependence F19.20 Time Spent (min) 35
== END 2022-09-18 17:25 | disposition home or self-care (01) | DRG 871 ==
LOC: 2W 16:00 → ED 16:00 → SUATTDRO 21:10 → 2W 22:04 → SUATTDRO 09-17 16:26

== ENCOUNTER 2022-10-08 11:07 | Inpatient (IN) ==
[2022-10-08] MEDS ORDERED: methylPREDNISolone 125 MG/2 ML VIAL IV STA (11:18)
--- NOTE | 2022-10-08 11:38 | Emergency Department Note ---
Impression & Plan COVID-19, Multifocal atrial tachycardia, CHF (congestive heart failure), Respiratory failure ED Provider Note Provider: Servando Batista MD DATE OF SERVICE: 10/08/2022 CHIEF COMPLAINT: Shortness of breath HISTORY OF PRESENT ILLNESS: Patient is a 67-year-old female complex past medical history including COPD, CHF, type 2 diabetes, MAT with cardiomyopathy, CKD, as well as recent right hip infection status post explantation of repair on current chronic ampicillin infusion presenting via ambulance from her home. Onset when she woke at night and this morning of significant shortness of breath. Denies falls. Denies significant new pain. States it feels like she is very short of breath and EMS report she is in the 80% range on room air. Transitioned to CPAP with improvement of her oxygenation but still with some work of breathing. Significantly tachycardic in the 140s and 150s for EMS and received 10 milligrams of IV diltiazem prior to arrival. Febrile 103F for EMS by the report . Patient does report she is had some sick family members with cold symptoms recently. Denies significant abdominal pain or abdominal symptoms. Denies significant leg swelling. REVIEW OF SYSTEMS: A total of 10 review of systems was obtained and negative except as stated above in the HPI. PAST MEDICAL HISTORY: As noted above MEDICATIONS: Reviewed home medication list includes Eliquis SOCIAL HISTORY: Lives at home PHYSICAL EXAM: GENERAL: alert and oriented in no acute distress on stretcher with CPAP mask in place Head: normocephalic and atraumatic EYES: No injection, discharge or icterus. NECK: Trachea midline. Supple. ENT: Mucous membranes pink and moist. LUNGS: Airway patent. No retractions. Breath sounds diminished but no significant wheezing appreciated HEART: Regular rate and rhythm. No chest wall tenderness ABDOMEN: Soft and non-tender, without guarding or rebound. SKIN: Acyanotic, warm, dry, some scattered healing bruising of the upper extremities. EXTREMITIES: Without swelling, tenderness or deformity of the lower extremities with some tenderness and healing bandaging to the right hip region. The left upper extremity has a PICC versus midline present. Again scattered bruising on the upper extremities. NEUROLOGICAL: No aphasia. No facial droop or slurred speech. Moving the upper extremities freely. No significant movement of the right lower extremity not m oving left lower extremity much either. Feels gross sensation however. EK bpm atrial fibrillation with RVR versus MAT without clear acute ST segment elevation. QTc approximately 453. No significant PVCs noted. CONTINUOUS CARDIAC MONITORING: was ordered and showed a heart rate of 80s-140s b pm in multifocal atrial tachycardia versus atrial fibrillation related to what appears to be a normal sinus rhythm. Patient's laboratory studies and imaging reviewed. Differential includes Reactive airway disease, pneumonia, pneumothorax, COPD, CHF, infections, cardiac ischemia, pulmonary embolism, musculoskeletal, gastrointestinal, as well as other pathologies. IMPRESSION/MEDICAL DECISION MAKIN mg of IV diltiazem prior to arrival with minimal effect but heart rate trending down here. Question A. fib versus MAT based on history. Hypertensive here. Has been on ampicillin infusion for recent hip infection. Chest x-ray to be completed. Question COPD versus CHF versus possible viral infection provoking her respiratory symptoms. Blood cultures will be sent. Denies significant chest pain to me. Lower suspicion for VTE with her Eliquis usage. Blood work here with mild anemia. Slight leukocytosis of 14. Chest x-ray report questions asymmetric pulmonary edema. Heart rate is improving with respiratory support again seems likely more MAT given history. Will give additional dose of diuretic. Renal function. Mild hypokalemia. BNP significantly elevated again consistent with fluid overload. Troponin elevated but less than previous actually. Lower suspicion for ACS. Did empirically give a dose of Solu-Medrol in case there was a COPD component upon arrival. Bio fire returns with COVID-positive likely contributing to her illness. Patient will require admission but not requiring significant oxygen support more respiratory support and can consistent more with a CHF exacerbation at this time. Heart rate improves with symptomatic treatment and therapy without further rate control medications again seems much more like an MAT picture. Is anticoagulated in any event. DIAGNOSIS: Acute respiratory failure, CHF exacerbation, COVID-19 DISPOSITION: Hospitalist will evaluate Patient was agreeable with this plan. Critical Care I have personally spent 37 minutes of critical care time in the direct management of this patient. This includes bedside care, interpretation of diagnostic studies, and testing, discussion with consultants, patient, and family members, and other required patient management activities. These 37 minutes is in excess of all separately billable procedures. Past Med/Surg History Medical History Acute renal failure BEV (acute kidney injury) Asthma PT STATES TAKES RESCUE INHALER DAILY Cardiomyopathy Carotid stenosis, left S/P L CEA (02/18/20) (Prior to CEA patient had 80% LICA stenosis ) Cerebral aneurysm Per records, pt unaware No significant aneurysm noted with head CTA and brain MRI from 01/2020 CKD (chronic kidney disease) stage III CVA (cerebral vascular accident) CVA 02/11/20- no residual effects, follows with [facility], patient was on plavix until ~1 month after left CEA surgery, now on ASA 81mg Depression with anxiety GERD (gastroesophageal reflux disease) Heart failure with mid-range ejection fraction History of Meniere's disease History of prediabetes HGBA1C 6.1% on 01/28/21 History of revision of total replacement of right hip joint 03/25/21 - [facility]; explantation old hardware, wound vac placement. History of septic shock 03/2021 - due to septic R hip; 04/2021 - again due to septic R hip - hospitalized [facility] each admission. Pseudomonas, proteus, oj albicans. Hyperlipidemia Hypertension Multifocal atrial tachycardia Osteoarthritis Pulmonary emboli Pulmonary hypertension RBBB SOB (shortness of breath) Tobacco use disorder Surgical History H/O carotid endarterectomy Left CEA: 02/18/20: Grade view 1 with head lift, MAC#3, ETT 7.0 at [facility] History of appendectomy History of bilateral tubal ligation History of brain surgery 5 years ago (Meniere's treatment/[facility]) History of History of cataract surgery R/L History of section x1 History of cholecystectomy History of cholecystectomy History of colonoscopy History of esophagogastroduodenoscopy (EGD) History of incision and drainage right hip - multiple I/D's, 03/2021-04/2021; [facility]. History of tonsillectomy History of tooth extraction History of total hip arthroplasty RT> with repair S/P carotid endarterectomy Status post revision of total hip replacement (~01/2021) Family History Mother Diabetes Family history of diabetes mellitus Sister Diabetes Family history of diabetes mellitus Arterial thrombosis Amputation of leg Father Heart disease Lung disease Other No family history of adverse response to anesthesia Denies family history of Ovarian cancer Prostate cancer Myocardial infarction Breast cancer Colorectal cancer Social History Smoking Status: Former smoker Tobacco Type: Cigarettes Age Started Using Tobacco: 17; Age Quit Using Tobacco: 65; packs per day: 1; Second Hand Exposure: No; Hx Alcohol Use: No Hx Substance Use: Yes Last Used Substance: Unknown Last Used Substance Other:: 08/31/2021 Substance Use Type Other:: daily use Preferred Language: Ecuadorean Communication Ability: Effective Visual Impairment: No Limitations Hearing Ability: Normal Manager Highway Required: No Beliefs That Will Affect Care: None marital status: Unknown Current Living Situation: Alone Current Living Situation Comment: Pt. 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 How many Children do You have: 2 How many Children do You have Comment: 1 child from suicide Feels Safe at Home: Yes Childhood Exposure to Second-Hand Smoke: Yes Dental Care, Regularly: No Physical Activity Frequency: Does not Exercise Seatbelt Use: always Sunscreen Use: No Assistive Devices: Hospital Bed, Walker and Wheelchair Allergies Allergies Allergy/AdvReac Type Severity Reaction Status Date / Time No Known Allergies Allergy Verified 09/14/22 13:08 Home Meds Home Medications Medication Instructions Recorded Confirmed naloxone 4 mg/actuation nasal 4 mg intranasal DIRECTED PRN 06/13/21 10/08/22 spray (Narcan) OVERSEDATION atorvastatin 40 mg tablet 40 mg PO DAILY 08/29/22 10/08/22 nicotine 21 mg/24 hr daily 1 patch transdermal Q24H 09/14/22 10/08/22 transdermal patch empagliflozin 10 mg tablet 10 mg PO .HAS NOT STARTED 09/15/22 10/08/22 (Jardiance) Previous Rx's Medication Instructions Recorded aspirin 81 mg tablet,delayed 81 mg PO QAM #90 tabs 02/06/22 release (Rocio Low Dose Aspirin) albuterol sulfate 90 mcg/actuation 2 inh inhalation DAILY #18 grams 05/24/22 aerosol inhaler (ProAir HFA) Advair Diskus 250 mcg-50 mcg/dose 1 inh inhalation BID #60 ea 05/25/22 powder for inhalation (fluticasone propion-salmeterol) famotidine 20 mg tablet 20 mg PO BID #90 tabs 07/13/22 pantoprazole 40 mg tablet,delayed 40 mg PO BID #90 tabs 08/10/22 release oxycodone 10 mg tablet 10 mg PO Q6H PRN pain #180 tabs 08/23/22 nicotine 14 mg/24 hr daily 1 patch transdermal Q24H 2 weeks 08/29/22 transdermal patch (Nicoderm CQ) #14 ea hydrocortisone 10 mg tablet See Rx Instructions .Route 09/05/22 .COMPLEX #45 tabs furosemide 40 mg tablet 40 mg PO QAM #90 tabs 09/15/22 metoprolol succinate 50 mg 50 mg PO DAILY #90 tabs 09/15/22 tablet,extended release 24 hr Bed Rondon #1 ea 10/03/22 Bed Side Commode #1 ea 10/03/22 acetaminophen 325 mg tablet 650 mg PO Q6H PRN pain #30 tabs 10/04/22 ampicillin sodium 2 gram 2 g IV Q4H #10 ea 10/04/22 intravenous solution apixaban 5 mg tablet 5 mg PO BID #60 tabs 10/04/22 docusate sodium 100 mg capsule 100 mg PO BID #60 caps 10/04/22 fludrocortisone 0.1 mg tablet 0.1 mg PO DAILY #30 tabs 10/04/22 diaper,brief,adult,disposable #150 ea 10/05/22 incontinence pad, liner, disp #156 ea 10/05/22 Results & Data (ED) Vital Signs Vital Signs - 24 hr 10/08/22 11:17 10/08/22 11:17 10/08/22 11:40 Temperature 37.0 C Temperature Source Oral Pulse Rate 127 H Pulse Rate from SpO2 Sensor Pulse Rhythm Irregular Pulse Strength Normal Respiratory Rate 41 H Respiratory Effort / Characteristics Accessory Muscle Use Short of Breath Accessory Muscle Use Respiratory Depth Normal Respiratory Pattern Tachypnea Tachypnea Blood Pressure 182/111 H Blood Pressure Mean 134 Blood Pressure Position Lying Pulse Oximetry 93 Oxygen Delivery Method CPAP Room Air Fraction of Inspired Oxygen 30 SaO2/FiO2 Ratio 310 Sepsis Recent Fever Within 48 Hours No Sepsis New/Unexplained Change in Mental Status No Sepsis Action Taken by Nursing MD Previously Notified 10/08/22 11:40 10/08/22 11:16 10/08/22 11:30 Temperature Temperature Source Pulse Rate 121 H 144 H 129 H Pulse Rate from SpO2 Sensor 146 H 126 H Pulse Rhythm Irregular Pulse Strength Respiratory Rate 37 H 38 H 39 H Respiratory Effort / Characteristics Respiratory Depth Respiratory Pattern Blood Pressure Blood Pressure Mean Blood Pressure Position Pulse Oximetry 94 93 93 Oxygen Delivery Method CPAP CPAP CPAP Fraction of Inspired Oxygen 30 30 30 SaO2/FiO2 Ratio 313 Sepsis Recent Fever Within 48 Hours Sepsis New/Unexplained Change in Mental Status Sepsis Action Taken by Nursing 10/08/22 11:45 10/08/22 11:45 10/08/22 11:15 Temperature Temperature Source Pulse Rate 118 H 150 H Pulse Rate from SpO2 Sensor Pulse Rhythm Pulse Strength Respiratory Rate 40 H 37 H Respiratory Effort / Characteristics Spontaneous Accessory Muscle Use Labored Short of Breath Respiratory Depth Respiratory Pattern Tachypnea Blood Pressure 143/83 H Blood Pressure Mean 103 Blood Pressure Position Pulse Oximetry 93 Oxygen Delivery Method Fraction of Inspired Oxygen 30 SaO2/FiO2 Ratio Sepsis Recent Fever Within 48 Hours Sepsis New/Unexplained Change in Mental Status Sepsis Action Taken by Nursing 10/08/22 12:00 10/08/22 12:00 10/08/22 12:15 Temperature Temperature Source Pulse Rate 112 H Pulse Rate from SpO2 Sensor 117 H Pulse Rhythm Pulse Strength Respiratory Rate 36 H Respiratory Effort / Characteristics Respiratory Depth Respiratory Pattern Blood Pressure 138/77 118/75 Blood Pressure Mean 97 89 Blood Pressure Position Pulse Oximetry 95 Oxygen Delivery Method CPAP Fraction of Inspired Oxygen 30 SaO2/FiO2 Ratio Sepsis Recent Fever Within 48 Hours Sepsis New/Unexplained Change in Mental Status Sepsis Action Taken by Nursing 10/08/22 12:15 10/08/22 12:30 10/08/22 12:30 Temperature Temperature Source Pulse Rate 110 H 109 H Pulse Rate from SpO2 Sensor 105 H 108 H Pulse Rhythm Pulse Strength Respiratory Rate 34 H 28 H Respiratory Effort / Characteristics Respiratory Depth Respiratory Pattern Blood Pressure 112/65 Blood Pressure Mean 80 Blood Pressure Position Pulse Oximetry 94 95 Oxygen Delivery Method CPAP CPAP Fraction of Inspired Oxygen 30 30 SaO2/FiO2 Ratio Sepsis Recent Fever Within 48 Hours Sepsis New/Unexplained Change in Mental Status Sepsis Action Taken by Nursing 10/08/22 12:45 10/08/22 12:46 10/08/22 12:46 Temperature Temperature Source Pulse Rate 106 H 107 H Pulse Rate from SpO2 Sensor 97 H 98 H Pulse Rhythm Pulse Strength Respiratory Rate 22 27 H Respiratory Effort / Characteristics Respiratory Depth Respiratory Pattern Blood Pressure 111/57 L Blood Pressure Mean 75 Blood Pressure Position Pulse Oximetry 96 94 Oxygen Delivery Method CPAP Fraction of Inspired Oxygen 30 SaO2/FiO2 Ratio Sepsis Recent Fever Within 48 Hours Sepsis New/Unexplained Change in Mental Status Sepsis Action Taken by Nursing 10/08/22 13:00 10/08/22 13:00 10/08/22 13:15 Temperature Temperature Source Pulse Rate 106 H Pulse Rate from SpO2 Sensor 107 H Pulse Rhythm Pulse Strength Respiratory Rate 22 Respiratory Effort / Characteristics Respiratory Depth Respiratory Pattern Blood Pressure 130/66 95/63 L Blood Pressure Mean 87 73 Blood Pressure Position Pulse Oximetry 97 Oxygen Delivery Method Fraction of Inspired Oxygen SaO2/FiO2 Ratio Sepsis Recent Fever Within 48 Hours Sepsis New/Unexplained Change in Mental Status Sepsis Action Taken by Nursing 10/08/22 13:15 10/08/22 13:20 10/08/22 13:20 Temperature Temperature Source Pulse Rate 99 H 100 H Pulse Rate from SpO2 Sensor 95 H 103 H Pulse Rhythm Pulse Strength Respiratory Rate 24 26 H Respiratory Effort / Characteristics Respiratory Depth Respiratory Pattern Blood Pressure 101/58 L Blood Pressure Mean 72 Blood Pressure Position Pulse Oximetry 95 95 Oxygen Delivery Method Fraction of Inspired Oxygen SaO2/FiO2 Ratio Sepsis Recent Fever Within 48 Hours Sepsis New/Unexplained Change in Mental Status Sepsis Action Taken by Nursing 10/08/22 13:30 10/08/22 13:30 10/08/22 13:45 Temperature Temperature Source Pulse Rate 94 H Pulse Rate from SpO2 Sensor 95 H Pulse Rhythm Pulse Strength Respiratory Rate 22 Respiratory Effort / Characteristics Respiratory Depth Respiratory Pattern Blood Pressure 117/64 103/60 Blood Pressure Mean 81 74 Blood Pressure Position Pulse Oximetry 97 Oxygen Delivery Method Fraction of Inspired Oxygen SaO2/FiO2 Ratio Sepsis Recent Fever Within 48 Hours Sepsis New/Unexplained Change in Mental Status Sepsis Action Taken by Nursing 10/08/22 13:45 10/08/22 14:00 10/08/22 14:00 Temperature Temperature Source Pulse Rate 89 87 Pulse Rate from SpO2 Sensor 91 H 85 Pulse Rhythm Pulse Strength Respiratory Rate 22 20 Respiratory Effort / Characteristics Respiratory Depth Respiratory Pattern Blood Pressure 104/64 Blood Pressure Mean 77 Blood Pressure Position Pulse Oximetry 94 93 Oxygen Delivery Method CPAP Fraction of Inspired Oxygen 30 SaO2/FiO2 Ratio Sepsis Recent Fever Within 48 Hours Sepsis New/Unexplained Change in Mental Status Sepsis Action Taken by Nursing 10/08/22 14:18 Temperature 37.0 C Temperature Source Oral Pulse Rate 82 Pulse Rate from SpO2 Sensor Pulse Rhythm Pulse Strength Respiratory Rate 22 Respiratory Effort / Characteristics Respiratory Depth Respiratory Pattern Blood Pressure 107/61 Blood Pressure Mean Blood Pressure Position Pulse Oximetry 96 Oxygen Delivery Method CPAP Fraction of Inspired Oxygen 30 SaO2/FiO2 Ratio Sepsis Recent Fever Within 48 Hours Sepsis New/Unexplained Change in Mental Status Sepsis Action Taken by Nursing Laboratory Data Result diagrams: 10/08/22 11:30 10/08/22 11:30 Lab Results 10/08/22 10/08/22 10/08/22 Range/Units 11:30 11:30 11:30 WBC 14.25 H (4.8-10.8) K/ul RBC 2.93 L (3.93-5.22) M/uL Hgb 9.5 L (12.0-16.0) g/dl POC Hgb (12.0-16.0) g/dl Hct 30.3 L (34.1-44.9) % POC Hct (37-47) % MCV 103.4 H (80.0-100.0) fL MCH 32.4 (25.0-34.0) pg MCHC 31.4 L (32.0-36.0) g/dL RDW Std Deviation 61.1 H (36.4-46.3) fL RDW Coeff of Crow 16.1 H (11.5-14.5) % Plt Count 338 (130-400) K/uL MPV 9.9 (9.4-12.3) fL Immature Gran % (Auto) 0.8 % Neut % (Auto) 68.3 % Lymph % (Auto) 24.2 % Early % (Auto) 6.0 % Eos % (Auto) 0.4 % Baso % (Auto) 0.3 % Neut # (Auto) 9.72 H (1.4-6.5) K/uL Lymph # (Auto) 3.45 H (1.2-3.4) K/uL Early # (Auto) 0.86 H (0.24-0.82) K/uL Eos # (Auto) 0.06 (0-0.50) K/uL Baso # (Auto) 0.04 (0-0.2) K/uL Immature Gran # (Auto) 0.12 H (0.00-0.02) K/uL Absolute Nucleated RBC 0.03 H (0-0) K/uL Nucleated RBC % (auto) 0.2 % PT 10.9 (9.0-12.0) Seconds INR 1.0 (0.9-1.1) APTT 25.4 (21.0-31.0) Seconds PTT Ratio 0.9 VBG pH (7.36-7.41) VBG pCO2 (38-50) mmHg VBG pO2 mmHg VBG HCO3 mmol/L VBG O2 Saturation % VBG Base Excess mEq/L POC Sodium (135-144) mmol/L Sodium 144 (136-145) mmol/L POC Potassium (3.3-5.0) mmol/L Potassium 3.1 L (3.5-5.1) mmol/L POC Chloride (101-112) mmol/L Chloride 106 (98-107) mmol/L Carbon Dioxide 27 (21-32) mmol/L POC Total CO2 (24-31) mmol/L Anion Gap 11 (3-11) POC Anion Gap (16-25) mmol/L POC BUN (7-18) mg/dl BUN 19 (6-23) mg/dl Creatinine 1.08 (0.6-1.2) mg/dl POC Creatinine (0.6-1.3) mg/dl Est Cr Clr Drug Dosing 52.2 ml/min Est GFR ( Amer) 61.1 ml/min Est GFR (Non-Af Amer) 52.7 ml/min BUN/Creatinine Ratio 17.6 (10-20) Glucose 244 H (70-99(Fasting)) mg/dl POC Glucose (other) (70-99) mg/dl Calcium 8.1 L (8.5-10.1) mg/dl POC Ioniz Calcium Juan (1.12-1.32) mmol/l Magnesium 2.0 (1.7-2.4) mg/dl Total Bilirubin 0.4 (0.2-1.0) mg/dl AST 15 (13-39) U/L ALT 7 (7-52) U/L Alkaline Phosphatase 78 (34-104) U/L Troponin I High Sens 96.1 H* (0-14) pg/ml B-Natriuretic Peptide (0-100) pg/ml Total Protein 6.4 (6.0-8.3) gm/dl Albumin 3.4 (3.4-5.0) gm/dl Globulin 3.0 (2.5-4.0) gm/dl Albumin/Globulin Ratio 1.1 (0.9-2) Procalcitonin (0-0.5) ng/ml Urine Color Urine Appearance (Clear) Urine pH (4.5-7.5) Ur Specific [place] (1.000-1.030) Urine Protein (Negative) Urine Glucose (UA) (Negative) Urine Ketones (Negative) Urine Blood (Negative) Urine Nitrite (Negative) Urine Bilirubin (Negative) Urine Urobilinogen (Negative) Ur Leukocyte Esterase (Negative) Urine WBC (Auto) (0-5) /hpf Urine RBC (Auto) (0-4) /hpf U Hyaline Cast (Auto) (0-5) /lpf U Epithel Cells (Auto) (0-5) /lpf Urine Bacteria (Auto) (Negative) Ur Renal Epithelial Cell Urine Yeast (None Prsent) Adenovirus (PCR) (NotDetected) B. pertussis DNA (PCR) (NotDetected) B.parapertussis DNA PCR (NotDetected) C. pneumoniae DNA (PCR) (NotDetected) Coronavirus OC43 (PCR) (NotDetected) Coronavirus HKU1 (PCR) (NotDetected) Coronavirus 229E (PCR) (NotDetected) SARS-CoV-2 (PCR) (NotDetected) Coronavirus NL63 (PCR) (NotDetected) Human Metapneumovir PCR (NotDetected) Influenza Type A (PCR) (NotDetected) Influenza Type B (PCR) (NotDetected) M. pneumoniae (PCR) (NotDetected) Parainfluenza 1 (PCR) (NotDetected) Parainfluenza 2 (PCR) (NotDetected) Parainfluenza 3 (PCR) (NotDetected) Parainfluenza 4 (PCR) (NotDetected) RSV (PCR) (NotDetected) Entero/Rhino (PCR) (NotDetected) 10/08/22 10/08/22 10/08/22 Range/Units 11:30 11:30 11:30 WBC (4.8-10.8) K/ul RBC (3.93-5.22) M/uL Hgb (12.0-16.0) g/dl POC Hgb (12.0-16.0) g/dl Hct (34.1-44.9) % POC Hct (37-47) % MCV (80.0-100.0) fL MCH (25.0-34.0) pg MCHC (32.0-36.0) g/dL RDW Std Deviation (36.4-46.3) fL RDW Coeff of Crow (11.5-14.5) % Plt Count (130-400) K/uL MPV (9.4-12.3) fL Immature Gran % (Auto) % Neut % (Auto) % Lymph % (Auto) % Early % (Auto) % Eos % (Auto) % Baso % (Auto) % Neut # (Auto) (1.4-6.5) K/uL Lymph # (Auto) (1.2-3.4) K/uL Early # (Auto) (0.24-0.82) K/uL Eos # (Auto) (0-0.50) K/uL Baso # (Auto) (0-0.2) K/uL Immature Gran # (Auto) (0.00-0.02) K/uL Absolute Nucleated RBC (0-0) K/uL Nucleated RBC % (auto) % PT (9.0-12.0) Seconds INR (0.9-1.1) APTT (21.0-31.0) Seconds PTT Ratio VBG pH (7.36-7.41) VBG pCO2 (38-50) mmHg VBG pO2 mmHg VBG HCO3 mmol/L VBG O2 Saturation % VBG Base Excess mEq/L POC Sodium (135-144) mmol/L Sodium (136-145) mmol/L POC Potassium (3.3-5.0) mmol/L Potassium (3.5-5.1) mmol/L POC Chloride (101-112) mmol/L Chloride (98-107) mmol/L Carbon Dioxide (21-32) mmol/L POC Total CO2 (24-31) mmol/L Anion Gap (3-11) POC Anion Gap (16-25) mmol/L POC BUN (7-18) mg/dl BUN (6-23) mg/dl Creatinine (0.6-1.2) mg/dl POC Creatinine (0.6-1.3) mg/dl Est Cr Clr Drug Dosing ml/min Est GFR ( Amer) ml/min Est GFR (Non-Af Amer) ml/min BUN/Creatinine Ratio (10-20) Glucose (70-99(Fasting)) mg/dl POC Glucose (other) (70-99) mg/dl Calcium (8.5-10.1) mg/dl POC Ioniz Calcium Juan (1.12-1.32) mmol/l Magnesium (1.7-2.4) mg/dl Total Bilirubin (0.2-1.0) mg/dl AST (13-39) U/L ALT (7-52) U/L Alkaline Phosphatase (34-104) U/L Troponin I High Sens (0-14) pg/ml B-Natriuretic Peptide 2199 H (0-100) pg/ml Total Protein (6.0-8.3) gm/dl Albumin (3.4-5.0) gm/dl Globulin (2.5-4.0) gm/dl Albumin/Globulin Ratio (0.9-2) Procalcitonin 0.22 (0-0.5) ng/ml Urine Color Urine Appearance (Clear) Urine pH (4.5-7.5) Ur Specific [place] (1.000-1.030) Urine Protein (Negative) Urine Glucose (UA) (Negative) Urine Ketones (Negative) Urine Blood (Negative) Urine Nitrite (Negative) Urine Bilirubin (Negative) Urine Urobilinogen (Negative) Ur Leukocyte Esterase (Negative) Urine WBC (Auto) (0-5) /hpf Urine RBC (Auto) (0-4) /hpf U Hyaline Cast (Auto) (0-5) /lpf U Epithel Cells (Auto) (0-5) /lpf Urine Bacteria (Auto) (Negative) Ur Renal Epithelial Cell Urine Yeast (None Prsent) Adenovirus (PCR) Not Detected (NotDetected) B. pertussis DNA (PCR) Not Detected (NotDetected) B.parapertussis DNA PCR Not Detected (NotDetected) C. pneumoniae DNA (PCR) Not Detected (NotDetected) Coronavirus OC43 (PCR) Not Detected (NotDetected) Coronavirus HKU1 (PCR) Not Detected (NotDetected) Coronavirus 229E (PCR) Not Detected (NotDetected) SARS-CoV-2 (PCR) DETECTED A* (NotDetected) Coronavirus NL63 (PCR) Not Detected (NotDetected) Human Metapneumovir PCR Not Detected (NotDetected) Influenza Type A (PCR) Not Detected (NotDetected) Influenza Type B (PCR) Not Detected (NotDetected) M. pneumoniae (PCR) Not Detected (NotDetected) Parainfluenza 1 (PCR) Not Detected (NotDetected) Parainfluenza 2 (PCR) Not Detected (NotDetected) Parainfluenza 3 (PCR) Not Detected (NotDetected) Parainfluenza 4 (PCR) Not Detected (NotDetected) RSV (PCR) Not Detected (NotDetected) Entero/Rhino (PCR) Not Detected (NotDetected) 10/08/22 10/08/22 10/08/22 Range/Units 11:35 12:01 Unknown WBC (4.8-10.8) K/ul RBC (3.93-5.22) M/uL Hgb (12.0-16.0) g/dl POC Hgb 9.9 L (12.0-16.0) g/dl Hct (34.1-44.9) % POC Hct 29 L (37-47) % MCV (80.0-100.0) fL MCH (25.0-34.0) pg MCHC (32.0-36.0) g/dL RDW Std Deviation (36.4-46.3) fL RDW Coeff of Crow (11.5-14.5) % Plt Count (130-400) K/uL MPV (9.4-12.3) fL Immature Gran % (Auto) % Neut % (Auto) % Lymph % (Auto) % Early % (Auto) % Eos % (Auto) % Baso % (Auto) % Neut # (Auto) (1.4-6.5) K/uL Lymph # (Auto) (1.2-3.4) K/uL Early # (Auto) (0.24-0.82) K/uL Eos # (Auto) (0-0.50) K/uL Baso # (Auto) (0-0.2) K/uL Immature Gran # (Auto) (0.00-0.02) K/uL Absolute Nucleated RBC (0-0) K/uL Nucleated RBC % (auto) % PT (9.0-12.0) Seconds INR (0.9-1.1) APTT (21.0-31.0) Seconds PTT Ratio VBG pH 7.40 (7.36-7.41) VBG pCO2 47 (38-50) mmHg VBG pO2 50 mmHg VBG HCO3 29 mmol/L VBG O2 Saturation 80.7 % VBG Base Excess 3.5 mEq/L POC Sodium 143 (135-144) mmol/L Sodium (136-145) mmol/L POC Potassium 3.0 L (3.3-5.0) mmol/L Potassium (3.5-5.1) mmol/L POC Chloride 106 (101-112) mmol/L Chloride (98-107) mmol/L Carbon Dioxide (21-32) mmol/L POC Total CO2 28 (24-31) mmol/L Anion Gap (3-11) POC Anion Gap 13.0 L (16-25) mmol/L POC BUN 18 (7-18) mg/dl BUN (6-23) mg/dl Creatinine (0.6-1.2) mg/dl POC Creatinine 1.2 (0.6-1.3) mg/dl Est Cr Clr Drug Dosing ml/min Est GFR ( Amer) ml/min Est GFR (Non-Af Amer) ml/min BUN/Creatinine Ratio (10-20) Glucose (70-99(Fasting)) mg/dl POC Glucose (other) 237 H (70-99) mg/dl Calcium (8.5-10.1) mg/dl POC Ioniz Calcium Juan 1.03 L (1.12-1.32) mmol/l Magnesium (1.7-2.4) mg/dl Total Bilirubin (0.2-1.0) mg/dl AST (13-39) U/L ALT (7-52) U/L Alkaline Phosphatase (34-104) U/L Troponin I High Sens (0-14) pg/ml B-Natriuretic Peptide (0-100) pg/ml Total Protein (6.0-8.3) gm/dl Albumin (3.4-5.0) gm/dl Globulin (2.5-4.0) gm/dl Albumin/Globulin Ratio (0.9-2) Procalcitonin (0-0.5) ng/ml Urine Color Yellow Urine Appearance Cloudy A (Clear) Urine pH 6.0 (4.5-7.5) Ur Specific [place] 1.024 (1.000-1.030) Urine Protein 1+ H (Negative) Urine Glucose (UA) 3+ H (Negative) Urine Ketones Negative (Negative) Urine Blood Negative (Negative) Urine Nitrite Negative (Negative) Urine Bilirubin Negative (Negative) Urine Urobilinogen Negative (Negative) Ur Leukocyte Esterase Negative (Negative) Urine WBC (Auto) 10-30 H (0-5) /hpf Urine RBC (Auto) 5-10 H (0-4) /hpf U Hyaline Cast (Auto) 1-5 (0-5) /lpf U Epithel Cells (Auto) 5-10 H (0-5) /lpf Urine Bacteria (Auto) Negative (Negative) Ur Renal Epithelial Cell Not Reportable Urine Yeast Budding A (None Prsent) Adenovirus (PCR) (NotDetected) B. pertussis DNA (PCR) (NotDetected) B.parapertussis DNA PCR (NotDetected) C. pneumoniae DNA (PCR) (NotDetected) Coronavirus OC43 (PCR) (NotDetected) Coronavirus HKU1 (PCR) (NotDetected) Coronavirus 229E (PCR) (NotDetected) SARS-CoV-2 (PCR) (NotDetected) Coronavirus NL63 (PCR) (NotDetected) Human Metapneumovir PCR (NotDetected) Influenza Type A (PCR) (NotDetected) Influenza Type B (PCR) (NotDetected) M. pneumoniae (PCR) (NotDetected) Parainfluenza 1 (PCR) (NotDetected) Parainfluenza 2 (PCR) (NotDetected) Parainfluenza 3 (PCR) (NotDetected) Parainfluenza 4 (PCR) (NotDetected) RSV (PCR) (NotDetected) Entero/Rhino (PCR) (NotDetected) Administered Medications Insulin Aspart (Insulin Aspart Per Unit) 0 units SC ACHS JOHANNA Stop: 11/07/22 13:29 Last Admin: 10/08/22 14:29 Dose: 5 units Documented By: AP Co-signed By: KK Discontinued Medications Furosemide (Furosemide 40 Mg/4 Ml Vial) 80 mg IV ONE ONE Stop: 10/08/22 12:20 Last Admin: 10/08/22 13:15 Dose: 80 mg Documented By: AP Methylprednisolone (Methylprednisolone 125 Mg/2 Ml Vial) 60 mg IV NOW STA Stop: 10/08/22 11:19 Last Admin: 10/08/22 11:54 Dose: 60 mg Documented By: AP Potassium Chloride (Potassium Chloride Crtab 20 Meq Tabcr) 40 meq PO NOW STA Stop: 10/08/22 13:05 Last Admin: 10/08/22 13:20 Dose: 40 meq Documented By: AP Imaging Data Radiologist's Impression: Chest X-Ray 10/08/22 11:15 XR chest 1V portable CLINICAL HISTORY: Shortness of breath. COMPARISON STUDY: Chest radiograph and chest CT September 15, 2022. FINDINGS: There is no pneumothorax. Trace bilateral pleural effusions are present. Cardiomegaly is unchanged. A left PICC is in place. Tip of the PICC slightly extends into the azygos vein. Interstitial thickening is greater within the left lung. Frantz B-lines are present. IMPRESSION: 1. Findings suggestive of asymmetric pulmonary edema, greater within the left lung. Trace bilateral pleural effusions. 2. Tip of left PICC slightly extends into the azygos vein. ACT 112: Negative or not required by law. Electronically signed by: Marquez Coronel M.D. 10/08/2022 11:48 AM Discharge Plan Visit Data Chief Complaint: Shortness of Breath/Dyspnea Stated Complaint: SOB ED Provider: Servando Batista Discharge Problem: COVID-19, Multifocal atrial tachycardia, CHF (congestive heart failure), Respiratory failure Patient Disposition: Being Evaluated by Hospitalist Discharge Instructions Interventions: ED Discharge Assessment Last Done: 10/08/22 14:18 Forms Stand Alone Forms: My [employer] Prescriptions Prescriptions: No Action aspirin [Rocio Low Dose Aspirin] 81 mg tablet,delayed release (DR/EC) 81 mg PO QAM Qty: 90 3RF albuterol sulfate [ProAir HFA] 90 mcg/actuation HFA aerosol inhaler 2 inh INHALATION DAILY Qty: 18 5RF fluticasone propion-salmeterol [Advair Diskus] 250-50 mcg/dose blister with device 1 inh inhalation BID Qty: 60 11RF famotidine 20 mg tablet 20 mg PO BID Qty: 90 3RF pantoprazole 40 mg tablet,delayed release (DR/EC) 40 mg PO BID Qty: 90 3RF oxycodone 10 mg tablet 10 mg PO Q6H PRN (Reason: pain) Qty: 180 0RF metoprolol succinate 50 mg tablet extended release 24 hr 50 mg PO DAILY Qty: 90 3RF (DME) Bed Side Commode [facility] See Rx Instructions .Route Qty: 1 0RF Rx Instructions: As directed (DME) Bed Rondon See Rx Instructions .Route .MEDSUPPLY Qty: 1 0RF Rx Instructions: Use As directed docusate sodium 100 mg capsule 100 mg PO BID Qty: 60 0RF ampicillin sodium 2 gram recon soln 2 g IV Q4H Qty: 10 0RF Rx Instructions: Per [facility] discharge until 11/07/2022 acetaminophen 325 mg tablet 650 mg PO Q6H PRN (Reason: pain) Qty: 30 0RF fludrocortisone 0.1 mg tablet 0.1 mg PO DAILY Qty: 30 2RF apixaban 5 mg tablet 5 mg PO BID Qty: 60 0RF (DME) diaper,brief,adult,disposable [facility] See Rx Instructions .Route Qty: 150 6RF Rx Instructions: Adult size large diapers for stress incontinence , use up to 5 daily (DME) incontinence pad, liner, disp Pad See Rx Instructions .Route Qty: 156 6RF Rx Instructions: Blue cora pads for stress incontinence, use up to 5 daily Narcan 4 mg/actuation spray,non-aerosol 4 mg intranasal DIRECTED PRN (Reason: OVERSEDATION) Rx Instructions: spray 1 dose into ONE nostril; alternate nostrils w each dose until help arrives nicotine 21 mg/24 hr patch 24 hour 1 patch transdermal Q24H furosemide 40 mg tablet 40 mg PO QAM Qty: 90 3RF Hold Instructions: not on [facility] d/c list atorvastatin 40 mg tablet 40 mg PO DAILY nicotine [Nicoderm CQ] 14 mg/24 hr patch 24 hour 1 patch transdermal Q24H 14 Days Qty: 14 0RF hydrocortisone 10 mg tablet See Rx Instructions .ROUTE .COMPLEX Qty: 45 0RF Rx Instructions: 10 mg in the morning, 5mg 8 hours later Jardiance 10 mg tablet 10 mg PO .HAS NOT STARTED Referrals Referrals: Edwin Valdez MD [Primary Care Provider] -
[2022-10-08 11:46] LABS: Basophils # (auto) 0.04 K/uL (0-0.2); Basophils % (auto) 0.3 %; Eosinophils # (auto) 0.06 K/uL (0-0.50); Eosinophils % (auto) 0.4 %; Hematocrit (blood only) 30.3 % (34.1-44.9); Hemoglobin 9.5 g/dl (12.0-16.0); Immature Granulocytes # (auto) 0.12 K/uL (0.00-0.02); Immature Granulocytes % (auto) 0.8 %; Lymphocytes # (auto) 3.45 K/uL (1.2-3.4); Lymphocytes % (auto) 24.2 %; Mean Corpuscular Hemoglobin 32.4 pg (25.0-34.0); Mean Corpuscular Hgb Conc 31.4 g/dL (32.0-36.0); Mean Corpuscular Volume 103.4 fL (80.0-100.0); Mean Platelet Volume 9.9 fL (9.4-12.3); Monocytes # (auto) 0.86 K/uL (0.24-0.82); Neutrophils # (auto) 9.72 K/uL (1.4-6.5); Neutrophils % (auto) 68.3 %; Nucleated RBC # (auto) 0.03 K/uL (0-0); Nucleated RBC % (auto) 0.2 %; Platelet Count 338 K/uL (130-400); RDW Coefficient of Variation 16.1 % (11.5-14.5); RDW Standard Deviation 61.1 fL (36.4-46.3); Red Blood Count 2.93 M/uL (3.93-5.22); White Blood Count 14.25 K/ul (4.8-10.8)
[2022-10-08 11:46] LABS: iSTAT Creatinine 1.2 mg/dl (0.6-1.3); iSTAT Hemoglobin 9.9 g/dl (12.0-16.0); iSTAT Ionized Calcium 1.03 mmol/l (1.12-1.32)
--- NOTE | 2022-10-08 11:49 | XRay Report ---
XR chest 1V portable CLINICAL HISTORY: Shortness of breath. COMPARISON STUDY: Chest radiograph and chest CT September 15, 2022. FINDINGS: There is no pneumothorax. Trace bilateral pleural effusions are present. Cardiomegaly is un changed. A left PICC is in place. Tip of the PICC slightly extends into the azygos vein. Interstitial thickening is greater within the left lung. Frantz B-lines are present. IMPRESSION: 1. Findings suggestive of asymmetric pulmonary edema, greater within the left lung. Trace bilateral pleural effusions. 2. Tip of left PICC slightly extends into the azygos vein. ACT 112: Negative or not required by law. Electronically signed by: Marquez Coronel M.D. 10/08/2022 11:48 AM
[2022-10-08 11:59] LABS: Partial Thromboplastin Ratio 0.9; Partial Thromboplastin Time 25.4 Seconds (21.0-31.0); Prothrombin Time 10.9 Seconds (9.0-12.0)
[2022-10-08 12:07] LABS: Base Excess VBG 3.5 mEq/L; HCO3 VBG 29 mmol/L; Oxygen Saturation VBG 80.7 %; PCO2 VBG 47 mmHg (38-50); PO2 VBG 50 mmHg
[2022-10-08 12:18] LABS: Albumin Globulin Ratio 1.1 (0.9-2); Albumin Level 3.4 gm/dl (3.4-5.0); BUN Creatinine Ratio 17.6 (10-20); Bilirubin,Total 0.4 mg/dl (0.2-1.0); Calcium 8.1 mg/dl (8.5-10.1); Creatinine Clr Calc Pharmacy 52.2 ml/min; Est GFR (African American) 61.1 ml/min; Est GFR (Non-African American) 52.7 ml/min; Potassium 3.1 mmol/L (3.5-5.1); Total Protein 6.4 gm/dl (6.0-8.3)
[2022-10-08] MEDS ORDERED: FUROSEMIDE 40 MG/4 ML VIAL IV ONE (12:19)
[2022-10-08 12:21] LABS: Troponin I High Sensitivity 96.1 pg/ml (0-14)
[2022-10-08] MEDS ORDERED: AMPICILLIN 2,000 MG in SODIUM CHLOR 0.9% AD-VAN 100 ML IV ONE (12:30)
--- NOTE | 2022-10-08 12:34 | History & Physical Report ---
Date of Service October 08, 2022 Assessment & Plan (1) Acute respiratory failure with hypoxia: Plan: AHRF suspect 2/2 acute COBID, +/- acute on chronic CHF now with preserved ejection fraction - CXR: Asymmetric pulm edema L>R, trace bilateral effusions suggestive of volume overload - BNP 2199, last 1231 Procalcitonin normal - CR 1.08, baseline <1.2 - K 3.1, no diarrhea/vomiting. 40 M EQ repletion ordered on admit, 20 M EQ twice daily ordered while diuresing - VB.4/47/50/29 - WBC 14 - hgb 9.5 patient with blood loss anemia uptrending after hip explantation per [place] record review - Recieved lasix 80mg IV and methylpred 60mg IV x1 in ER, home dose 40 p.o., continue 40 IV daily - trop 96, prior 126 09/04/22. EKG A. fib versus MAT, no ST segment changes CPAP as needed/at bedtime COVID-positive on admission, last was COVID-negative. We will continue dexamethasone and increase to twice daily given history of underlying COPD and comorbidities. Hx COPD - No PFTS available for review Continue inhalers Incentive spirometry Respiratory failure management as above COVID management as above, on dexamethasone increased to twice daily MAT - No hx of Afib on record/EKG review, completed 6mo anticoagulation for PEs in the setting of immobility - Continue metoprolol 50mg daily - ? AFib, restarted on Elquis @ [facility] dc, will continue for now Rate improved after admission, currently 901 100s IV Lopressor as needed for heart rate greater than 130 Hx Cardiomyopathy, HF rEF improved on last ECHO - Prior echo with EF 40%, Last echo EF 55--60% 09/15/22 without regional wall motion abnormalities - Follows with heart failure clinic - [employer] on metop, entresto, jardiance. @g sodium restriction. 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 Likely to be hyperglycemic with acute illness and steroids Glucose checks AC/at bedtime GERD - PPI, H2 Prior Septic Arthritis s/p explantation -S/p explantation at [facility] repeat BC, CRP/ESR after abx complete ~5-7 days. - 09/17 surveillance/clearance cultures negative - Repeat cx drawn 10/08 pending Wound care consulted Continue IV ampicillin DVT prophylaxis: Anticoagulated on DOAC Diet: Heart healthy, low-sodium Disposition: PCU CODE STATUS: Full code (2) CHF exacerbation: (3) Type 2 diabetes mellitus: (4) COPD (chronic obstructive pulmonary disease): (5) Multifocal atrial tachycardia: (6) History of pulmonary embolism: (7) Asthma: (8) GERD (gastroesophageal reflux disease): (9) Depression with anxiety: (10) History of revision of total replacement of right hip joint: (11) Hypertension: (12) Hyperlipidemia: History of Present Illness Primary Care Provider: Edwin Valdez MD Radha Tello is a 67yo F w/ PMHx of CHF with EF 40-45% at baseline, A. fib on anticoagulation with Eliquis, adrenal insufficiency, depression, asthma, COPD, pulmonary nodules, GERD, carotid stenosis, chronic cerebral ischemia, CKD 3B, impaired fasting glucose recently admitted, 01/16 enterococcus faecalis amp sensitive bactermia initially suspected septic arthritis vs UTI ultimately tx & discharged from [facility] 10/02 on apixaban 5 BID and ampicillin 2g Q4h. 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 Anemia 2/2 blood loss at that time. Ampicillin to be continued until 11/07/22. Presents with shortness of breath after waking up AM of presentation. NO pain. Per EMS pt hypoxic to 80s in the field, improved with CPAP. Recieved 10mg IV diltiazem for HR 140s in field. CXR showing asymmetric pulmonary edema. Patient reports she thinks she is coming down with the flu, notes she has had fever for 1 day and feeling generally tired. She reports that she has had a deep wet cough, but has not been able to produce sputum and coughing vigorously makes her little bit nauseous. She thinks she was wheezing previously, at time of ER assessment she feels better on CPAP and after treatments and is no longer wheezing. She reports she has not had any leg swelling and that her legs "actually look really good ". She reports since her last discharge she has been diligent with a low-salt diet, and has not had any salt load or dietary indiscretion including [place] dinner/ham/meals. She has not had any chest pain or chest pressure. She reports that she has had chronic right hip pain after her hardware explantation, but her surrounding site has not had any drainage/leakage or problems. She notes that she is strict nonweightbearing per her surgeon, and was not supposed to change the dressing herself until follow-up with her surgeon which was scheduled for Sunday of this coming week (in approximately 2 days). Denies dysuria or change in urinary symptoms. Denies abdominal pain. Is on a DOAC since discharge from [place], reportedly A. fib was appreciated at that time. PICC is present in her left arm, she has had no problems with infusions. Has not taken her medications this morning Medical History: Reviewed Medications: Reviewed Surgical History: Reviewed Allergies: Reviewed Social History: Reviewed Code Status: Full code Allergies Allergy/AdvReac Type Severity Reaction Status Date / Time No Known Allergies Allergy Verified 09/14/22 13:08 Home Medications Medication Instructions Recorded Confirmed Type naloxone 4 mg/actuation nasal 4 mg intranasal DIRECTED PRN 06/13/21 10/08/22 History spray (Narcan) OVERSEDATION aspirin 81 mg tablet,delayed 81 mg PO QAM #90 tabs 02/06/22 10/08/22 Rx release (Rocio Low Dose Aspirin) albuterol sulfate 90 mcg/actuation 2 inh inhalation DAILY #18 grams 05/24/22 10/08/22 Rx aerosol inhaler (ProAir HFA) Advair Diskus 250 mcg-50 mcg/dose 1 inh inhalation BID #60 ea 05/25/22 10/08/22 Rx powder for inhalation (fluticasone propion-salmeterol) famotidine 20 mg tablet 20 mg PO BID #90 tabs 07/13/22 10/08/22 Rx pantoprazole 40 mg tablet,delayed 40 mg PO BID #90 tabs 08/10/22 10/08/22 Rx release oxycodone 10 mg tablet 10 mg PO Q6H PRN pain #180 tabs 08/23/22 10/08/22 Rx atorvastatin 40 mg tablet 40 mg PO DAILY 08/29/22 10/08/22 History nicotine 14 mg/24 hr daily 1 patch transdermal Q24H 2 weeks 08/29/22 10/08/22 Rx transdermal patch (Nicoderm CQ) #14 ea hydrocortisone 10 mg tablet See Rx Instructions .Route 09/05/22 10/08/22 Rx .COMPLEX #45 tabs nicotine 21 mg/24 hr daily 1 patch transdermal Q24H 09/14/22 10/08/22 History transdermal patch empagliflozin 10 mg tablet 10 mg PO .HAS NOT STARTED 09/15/22 10/08/22 History (Jardiance) furosemide 40 mg tablet 40 mg PO QAM #90 tabs 09/15/22 10/08/22 Rx metoprolol succinate 50 mg 50 mg PO DAILY #90 tabs 09/15/22 10/08/22 Rx tablet,extended release 24 hr Bed Rondon #1 ea 10/03/22 Rx Bed Side Commode #1 ea 10/03/22 Rx acetaminophen 325 mg tablet 650 mg PO Q6H PRN pain #30 tabs 10/04/22 10/08/22 Rx ampicillin sodium 2 gram 2 g IV Q4H #10 ea 10/04/22 10/08/22 Rx intravenous solution apixaban 5 mg tablet 5 mg PO BID #60 tabs 10/04/22 10/08/22 Rx docusate sodium 100 mg capsule 100 mg PO BID #60 caps 10/04/22 10/08/22 Rx fludrocortisone 0.1 mg tablet 0.1 mg PO DAILY #30 tabs 10/04/22 10/08/22 Rx diaper,brief,adult,disposable #150 ea 10/05/22 Rx incontinence pad, liner, disp #156 ea 10/05/22 Rx Past Med/Surg History Medical History Acute renal failure BEV (acute kidney injury) Asthma PT STATES TAKES RESCUE INHALER DAILY Cardiomyopathy Carotid stenosis, left S/P L CEA (02/18/20) (Prior to CEA patient had 80% LICA stenosis ) Cerebral aneurysm Per records, pt unaware No significant aneurysm noted with head CTA and brain MRI from 01/2020 CKD (chronic kidney disease) stage III CVA (cerebral vascular accident) CVA 02/11/20- no residual effects, follows with [facility] neurology, patient was on plavix until ~1 month after left CEA surgery, now on ASA 81mg Depression with anxiety GERD (gastroesophageal reflux disease) Heart failure with mid-range ejection fraction History of Meniere's disease History of prediabetes HGBA1C 6.1% on 01/28/21 History of revision of total replacement of right hip joint 03/25/21 - [facility]; explantation old hardware, wound vac placement. History of septic shock 03/2021 - due to septic R hip; 04/2021 - again due to septic R hip - hosp italized [facility] each admission. Pseudomonas, proteus, oj albicans. Hyperlipidemia Hypertension Multifocal atrial tachycardia Osteoarthritis Pulmonary emboli Pulmonary hypertension RBBB SOB (shortness of breath) Tobacco use disorder Surgical History H/O carotid endarterectomy Left CEA: 02/18/20: Grade view 1 with head lift, MAC#3, ETT 7.0 at [facility] History of appendectomy History of bilateral tubal ligation History of brain surgery 5 years ago (Meniere's treatment/[facility]) History of History of cataract surgery R/L History of section x1 History of cholecystectomy History of cholecystectomy History of colonoscopy History of esophagogastroduodenoscopy (EGD) History of incision and drainage right hip - multiple I/D's, 03/2021-04/2021; [facility]. History of tonsillectomy History of tooth extraction History of total hip arthroplasty RT> with repair S/P carotid endarterectomy Status post revision of total hip replacement (~01/2021) Family History Mother Diabetes Family history of diabetes mellitus Sister Diabetes Family history of diabetes mellitus Arterial thrombosis Amputation of leg Father Heart disease Lung disease Other No family history of adverse response to anesthesia Denies family history of Ovarian cancer Prostate cancer Myocardial infarction Breast cancer Colorectal cancer Social History Smoking Status: Former smoker Tobacco Type: Cigarettes Age Started Using Tobacco: 17; Age Quit Using Tobacco: 65; packs per day: 1; Second Hand Exposure: No; Hx Alcohol Use: No Hx Substance Use: Yes Last Used Substance: Unknown Last Used Substance Other:: 08/31/2021 Substance Use Type Other:: daily use Preferred Language: Egyptian Communication Ability: Effective Visual Impairment: No Limitations Hearing Ability: Normal Tray Service Worker Required: No Beliefs That Will Affect Care: None marital status: Unknown Current Living Situation: Alone Current Living Situation Comment: Pt. 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 NAD. Cooperative. On CPAP, comfortable HEENT: Atraumatic, normocephalic. Vision/hearing grossly intact Pulm: Moderate air movement, no rales/wheezes are appreciated at time of assessment, somewhat diminished in the bases. On CPAP with symmetrical chest rise. No increased work of breathing. No respiratory distress. Cardiac: Tachycardic, irregular.-mrg. Radial pulses intact and symmetrical. Abdominal: Nontender, nondistended, soft. BS present. Extremities: Left upper arm with PICC line in place, no surrounding tenderness/crepitus/erythema. Legs are without pitting edema. Right hip is with postsurgical dressing intact, no surrounding erythema/warmth/tenderness able to wiggle toes bilaterally without deficit, sensation to soft touch intact in hands and feet bilaterally. Senior Mobile Application Developer strength intact 5/5 bilaterally Results & Data Results & Data ([facility]) Vital Signs (Past 12 Hours) Vital Signs Temp Pulse Resp BP Pulse Ox O2 Del Method FiO2 10/08/22 11:15 150 H 37 H 93 30 10/08/22 11:45 118 H 40 H 10/08/22 11:45 143/83 H 10/08/22 11:30 129 H 39 H 93 CPAP 30 10/08/22 11:16 144 H 38 H 93 CPAP 30 10/08/22 11:40 121 H 37 H 94 CPAP 30 10/08/22 11:40 Room Air 10/08/22 11:17 37.0 C 127 H 41 H 182/111 H 93 CPAP 30 PG Care Time/CCT Total # of Minutes Spent Total Time Spent with Patient: Total time spent is greater than 50% in coordination of care (as documented) at patient's floor/unit and/or counseling patient: Coding Level of Care Code 49443 Initial Inpt Care Lvl 3 Diagnoses Acute respiratory failure with hypoxia J96.01 CHF exacerbation I50.9 Type 2 diabetes mellitus E11.9 COPD (chronic obstructive pulmonary disease) J44.9 Multifocal atrial tachycardia I47.1 History of pulmonary embolism Z86.711 Asthma J45.909 GERD (gastroesophageal reflux disease) K21.9 Depression with anxiety F41.8 History of revision of total replacement of right hip joint Z96.641 Hypertension I10 Hyperlipidemia E78.5
[2022-10-08 12:41] LABS: Adenovirus PCR Not Detected (NotDetected); Bordetella parapertussis PCR Not Detected (NotDetected); Bordetella pertussis PCR Not Detected (NotDetected); Chlamydia pneumoniae PCR Not Detected (NotDetected); Coronavirus 229E PCR Not Detected (NotDetected); Coronavirus HKU1 PCR Not Detected (NotDetected); Coronavirus NL63 PCR Not Detected (NotDetected); Coronavirus OC43PCR Not Detected (NotDetected); Human Metapneumovirus PCR Not Detected (NotDetected); Influenza A PCR Not Detected (NotDetected); Influenza B PCR Not Detected (NotDetected); Mycoplasma pneumoniae PCR Not Detected (NotDetected); Parainfluenza Virus 1 PCR Not Detected (NotDetected); Parainfluenza Virus 2 PCR Not Detected (NotDetected); Parainfluenza Virus 3 PCR Not Detected (NotDetected); Parainfluenza Virus 4 PCR Not Detected (NotDetected); Respiratory Syncytial VirusPCR Not Detected (NotDetected); Rhinovirus/Enterovirus PCR Not Detected (NotDetected)
[2022-10-08] MEDS ORDERED: POTASSIUM CHLORIDE CRTAB 20 MEQ TABCR PO STA (13:04)
[2022-10-08 13:05] LABS: Coronavirus CoV-2 (COVID19)PCR DETECTED (NotDetected)
[2022-10-08] MEDS ORDERED: PHARMACY GLYCEMIC MGMT CONSULT PRN (13:06)
[2022-10-08] MEDS ORDERED: DEXTROSE 50% 50 ML SYRINGE IV PRN (13:30)
[2022-10-08] MEDS ORDERED: GLUCOSE 10 TAB/TUBE PO PRN (13:30)
[2022-10-08] MEDS ORDERED: GLUCAGON FOR INJ 1 MG VIAL IM PRN (13:30)
[2022-10-08] MEDS ORDERED: GLUCOSE 40% GEL 15 GM TUBE PO PRN (13:30)
[2022-10-08] MEDS ORDERED: CARBOHYDRATES FOR HYPOGLYCEMIA PO PRN (13:30)
[2022-10-08] MEDS ORDERED: LANTUS PER UNIT CHARGE SQ ONE (13:30)
[2022-10-08 13:37] LABS: Appearance Urine Cloudy (Clear); Bacteria Urine Automated Negative (Negative); Bilirubin Urine Negative (Negative); Blood Urine Negative (Negative); Color Urine Yellow; Glucose Urine UA 3+ (Negative); Ketones Urine Negative (Negative); Leukocyte Esterase Urine Negative (Negative); Nitrite Urine Negative (Negative); Protein Urine 1+ (Negative); Specific Gravity Urine 1.024 (1.000-1.030); Urobilinogen Urine Negative (Negative)
--- NOTE | 2022-10-08 13:41 | Pharmacy Report ---
Pharmacy Glycemic Short Note 2 - Date of Service October 08, 2022 - Glycemic Short BSG Results (Last 24 hours): 10/08/22 10/08/22 11:30 11:35 Glucose 244 H POC Glucose (other) 237 H OUTPATIENT ANTIDIABETIC REGIMEN: * Jardiance 10 mg PO daily HbA1c 7.3% (09/13/22) ASSESSMENT: * RH is a 67 year old female who presents to ED with shortness of breath upon waking up this morning * Pertinent PMH includes COPD, asthma, CHF, and T2DM * Ordered IV steroids at this time, methylprednisolone 60 mg IV x 1 this morning and dexamethasone 6 mg IV BID starting this evening * Hyperglycemic on admission (BSG of 237 mg/dL) and likely to worsen in light of steroids * Will be slightly conservative with first dose of basal and allow for increased dose at HS based on BSG for dose up to ~weight-based stress of 3 dosing PLAN FOR INPATIENT GLYCEMIC CONTROL: * Hold outpatient oral diabetes medications * Basal insulin * Lantus 20 units SC x 1 now at time of consult * Lantus 0-20 units SC HS (see EHR for details) * Bolus insulin * NovoLog per scale ACHS or Q6hrs while NPO * Goal Range: Low 110 mg/dL - High 140 mg/dL * Correction Factor: 25 mg/dL/unit * Nutritional / Prandial insulin per carb ratio of 1 unit per 8 grams CHO consumed
[2022-10-08] MEDS: INSULIN ASPART PER UNIT SC SCH ×3 (14:29→21:31)
[2022-10-08] MEDS ORDERED: ACETAMINOPHEN 325 MG TAB PO PRN (14:47)
[2022-10-08] MEDS ORDERED: NICOTINE 21 MG/24 HR TDSY TD PRN (14:47)
[2022-10-08] MEDS: oxyCODONE HCL IR 5 MG TAB (IMMEDIATE RELEASE) PO PRN (15:36)
[2022-10-08] MEDS: APIXABAN 5 MG TABLET PO SCH ×2 (15:37→21:19)
[2022-10-08] MEDS: METOPROLOL SUCC 50MG EXT REL TAB PO SCH (15:37)
[2022-10-08] MEDS ORDERED: PNEUMOCOCCAL POLYSACCHARIDES 25 MCG/0.5 ML VIAL/SYR IM ONE (18:00)
[2022-10-08] MEDS: HYDROCORTISONE 10 MG TAB PO SCH (18:33)
[2022-10-08] MEDS: AMPICILLIN 2,000 MG in SODIUM CHLOR 0.9% AD-VAN 100 ML IV SCH ×2 (18:35→21:20)
[2022-10-08] MEDS ORDERED: LANTUS PER UNIT CHARGE SQ SCH (21:00)
[2022-10-08] MEDS ORDERED: APIXABAN 5 MG TABLET PO SCH (21:00)
[2022-10-08] MEDS: FAMOTIDINE 20 MG TAB PO SCH (21:19)
[2022-10-08] MEDS: PANTOprazole 40 MG TAB PO SCH (21:19)
[2022-10-08] MEDS: dexAMETHasone 6 MG in SYRINGE 0 ML IV SCH (21:19)
[2022-10-09] MEDS ORDERED: INSULIN ASPART PER UNIT SC SCH (02:00)
[2022-10-09] MEDS: AMPICILLIN 2,000 MG in SODIUM CHLOR 0.9% AD-VAN 100 ML IV SCH ×6 (02:12→20:54)
[2022-10-09 03:58] LABS: Basophils # (auto) 0.01 K/uL (0-0.2); Basophils % (auto) 0.1 %; Hematocrit (blood only) 27.6 % (34.1-44.9); Hemoglobin 8.4 g/dl (12.0-16.0); Immature Granulocytes # (auto) 0.08 K/uL (0.00-0.02); Immature Granulocytes % (auto) 0.8 %; Lymphocytes # (auto) 1.12 K/uL (1.2-3.4); Lymphocytes % (auto) 10.6 %; Mean Corpuscular Hemoglobin 31.9 pg (25.0-34.0); Mean Corpuscular Hgb Conc 30.4 g/dL (32.0-36.0); Mean Corpuscular Volume 104.9 fL (80.0-100.0); Monocytes # (auto) 0.23 K/uL (0.24-0.82); Monocytes % (auto) 2.2 %; Neutrophils # (auto) 9.12 K/uL (1.4-6.5); Neutrophils % (auto) 86.3 %; Platelet Count 269 K/uL (130-400); RDW Standard Deviation 61.9 fL (36.4-46.3); Red Blood Count 2.63 M/uL (3.93-5.22); White Blood Count 10.56 K/ul (4.8-10.8)
[2022-10-09 05:16] LABS: BUN Creatinine Ratio 17.1 (10-20); Calcium 8.2 mg/dl (8.5-10.1); Est GFR (African American) 55.4 ml/min; Est GFR (Non-African American) 47.8 ml/min; Potassium 4.2 mmol/L (3.5-5.1)
[2022-10-09] MEDS: INSULIN ASPART PER UNIT SC SCH ×4 (09:04→20:41)
[2022-10-09] MEDS: FAMOTIDINE 20 MG TAB PO SCH ×2 (09:30→20:54)
[2022-10-09] MEDS: FUROSEMIDE 40 MG/4 ML VIAL IV SCH ×2 (09:30→17:53)
[2022-10-09] MEDS: dexAMETHasone 6 MG in SYRINGE 0 ML IV SCH ×2 (09:30→20:54)
[2022-10-09] MEDS: METOPROLOL SUCC 50MG EXT REL TAB PO SCH (09:31)
[2022-10-09] MEDS: PANTOprazole 40 MG TAB PO SCH ×2 (09:31→20:54)
[2022-10-09] MEDS: HYDROCORTISONE 10 MG TAB PO SCH ×2 (09:31→17:52)
[2022-10-09] MEDS: ASPIRIN 81 MG ECTAB PO SCH (09:31)
[2022-10-09] MEDS: POTASSIUM CHLORIDE CRTAB 20 MEQ TABCR PO SCH ×2 (09:31→20:53)
[2022-10-09] MEDS: FLUDROCORTISONE ACETATE 0.1 MG TAB PO SCH (09:31)
[2022-10-09] MEDS: FLUTICASONE/VILANTEROL 200/25MCG 14 PUFFS/INHALER INH SCH (09:32)
[2022-10-09] MEDS: APIXABAN 5 MG TABLET PO SCH ×2 (09:32→20:54)
[2022-10-09] MEDS: LANTUS PER UNIT CHARGE SQ SCH (09:45)
[2022-10-09] MEDS: oxyCODONE HCL IR 5 MG TAB (IMMEDIATE RELEASE) PO PRN ×3 (09:52→20:54)
--- NOTE | 2022-10-09 11:18 | Pharmacy Report ---
Pharmacy Glycemic Short Note 2 - Date of Service October 09, 2022 - Glycemic Short BSG Results (Last 24 hours): 10/08/22 10/08/22 10/08/22 11:30 11:35 15:29 Glucose 244 H POC Glucose 174 H POC Glucose (other) 237 H 10/08/22 10/09/22 10/09/22 21:12 02:10 03:06 Glucose 121 H POC Glucose 190 H 125 H POC Glucose (other) 10/09/22 08:33 Glucose POC Glucose 118 H POC Glucose (other) OUTPATIENT ANTIDIABETIC REGIMEN: * Jardiance 10 mg PO daily HbA1c 7.3% (09/13/22) ASSESSMENT: 10/09/22 * Patient received 45 units of insulin yesterday, 30 units basal, fasting BSG 118mg/dl, will continue with 30 units daily at this time * Continue CF/CR, pt continues on Dexamethasone 6mg IV BID * Taper insulin doses down as steroids tapered down 10/08/22 * RH is a 67 year old female who presents to ED with shortness of breath upon waking up this morning * Pertinent PMH includes COPD, asthma, CHF, and T2DM * Ordered IV steroids at this time, methylprednisolone 60 mg IV x 1 this morning and dexamethasone 6 mg IV BID starting this evening * Hyperglycemic on admission (BSG of 237 mg/dL) and likely to worsen in light of steroids * Will be slightly conservative with first dose of basal and allow for increased dose at HS based on BSG for dose up to ~weight-based stress of 3 dosing PLAN FOR INPATIENT GLYCEMIC CONTROL: * Hold outpatient oral diabetes medications * Basal insulin * Lantus 30 units SQ daily * Bolus insulin * NovoLog per scale ACHS or Q6hrs while NPO * Goal Range: Low 110 mg/dL - High 140 mg/dL * Correction Factor: 25 mg/dL/unit * Nutritional / Prandial insulin per carb ratio of 1 unit per 8 grams CHO consumed
--- NOTE | 2022-10-09 12:10 | Electrocardiogram Report ---
Test Reason : Blood Pressure : / mmHG Vent. Rate : 145 BPM Atrial Rate : 141 BPM P-R Int : 000 ms QRS Dur : 110 ms QT Int : 292 ms P-R-T Axes : 000 030 045 degrees QTc Int : 453 ms Poor data quality, interpretation may be adversely affected Atrial fibrillation with rapid ventricular response with premature ventricular or aberrantly conducte d complexes Abnormal ECG When compared with ECG of 15-SEP-2022 16:28, Atrial fibrillation has replaced Sinus rhythm Vent. rate has increased BY 58 BPM Right bundle branch block is no longer Present Confirmed by Bassem Jenkins ([id number]) on 10/09/2022 12:10:00 PM Referred By: REFERRED SELF Confirmed By:Bassem Jenkins
--- NOTE | 2022-10-09 22:01 | Hospitalist Progress Note ---
Date of Service October 09, 2022 Assessment & Plan (1) Acute respiratory failure with hypoxia: Plan: AHRF suspect 2/2 acute COVID, +/- acute on chronic CHF now with preserved ejection fraction - CXR: Asymmetric pulm edema L>R, trace bilateral effusions suggestive of volume overload - BNP 2199, last 1231 Procalcitonin normal - CR 1.08, baseline <1.2 - K 3.1, no diarrhea/vomiting. 40 M EQ repletion ordered on admit, 20 M EQ twice daily ordered while diuresing - VB.4/47/50/29 - WBC 14 - hgb 9.5 patient with blood loss anemia uptrending after hip explantation per [place] record review - Recieved lasix 80mg IV and methylpred 60mg IV x1 in ER, home dose 40 p.o., continue 40 IV daily - trop 96, prior 126 09/04/22. EKG A. fib versus MAT, no ST segment changes CPAP as needed/at bedtime COVID-positive on admission, last was COVID-negative. We will continue dexamethasone and increase to twice daily given history of underlying COPD and comorbidities. will continue above treatment, may consider decreasing dexamethasone to once daily on 10.10. Hx COPD - No PFTS available for review Continue inhalers Incentive spirometry Respiratory failure management as above COVID management as above, on dexamethasone increased to twice daily MAT - No hx of Afib on record/EKG review, completed 6mo anticoagulation for PEs in the setting of immobility - Continue metoprolol 50mg daily - ? AFib, restarted on Elquis @ [facility] [place], will continue for now Rate improved after admission, currently 901 100s IV Lopressor as needed for heart rate greater than 130 Hx Cardiomyopathy, HF rEF improved on last ECHO - Prior echo with EF 40%, Last echo EF 55--60% 09/15/22 without regional wall motion abnormalities - Follows with heart failure clinic - IRON ERECTOR on metop, entresto, jardiance. @g sodium restriction. 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 Likely to be hyperglycemic with acute illness and steroids Glucose checks AC/at bedtime GERD - PPI, H2 Prior Septic Arthritis s/p explantation -S/p explantation at [facility] [place] [facility] repeat BC, CRP/ESR after abx complete ~5-7 days. 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 She is not back to her baseline, still SOB. Normally on room air. Review of Systems Review of Systems: All systems reviewed & are unremarkable except as noted in HPI & below Physical Exam Physical Exam: General: A&Ox3. NAD. Cooperative. comfortable HEENT: Atraumatic, normocephalic. Vision/hearing grossly intact Pulm: Moderate air movement, no rales/wheezes are appreciated at time of assessment, somewhat diminished in the bases.No increased work of breathing. No respiratory distress. Cardiac: Tachycardic, irregular.-mrg. Radial pulses intact and symmetrical. Abdominal: Nontender, nondistended, soft. BS present. Extremities: Left upper arm with PICC line in place, no surrounding tenderness/crepitus/erythema. Legs are without pitting edema. Right hip is with postsurgical dressing intact, no surrounding erythema/warmth/tenderness able to wiggle toes bilaterally without deficit, sensation to soft touch intact in hands and feet bilaterally. Surgical Oncologist strength intact 5/5 bilaterally Results & Data Results & Data ([facility]) Vital Signs (Past 12 Hours) Vital Signs Temp Pulse Pulse Resp BP Pulse Ox O2 Del Method 10/09/22 21:00 Nasal Cannula 10/09/22 20:53 36.8 C 68 20 123/72 99 Nasal Cannula 10/09/22 19:40 36.7 C 59 L 18 144/70 H 95 Room Air 10/09/22 17:34 37 C 77 18 127/70 96 Nasal Cannula 10/09/22 16:09 79 10/09/22 15:37 Nasal Cannula 10/09/22 12:21 37 C 77 18 122/78 98 Nasal Cannula 10/09/22 10:07 Nasal Cannula, Oxymask O2 Flow Rate 10/09/22 21:00 2 10/09/22 20:53 10/09/22 19:40 10/09/22 17:34 10/09/22 16:09 10/09/22 15:37 2 10/09/22 12:21 10/09/22 10:07 2 PG Care Time/CCT Total # of Minutes Spent Total Time Spent with Patient: Total time spent is greater than 50% in coordination of care (as documented) at patient's floor/unit and/or counseling patient: Coding Level of Care Code 15351 Subseq Hosp Care Lvl 2 Diagnoses Acute respiratory failure with hypoxia J96.01 CHF exacerbation I50.9 Type 2 diabetes mellitus E11.9 COPD (chronic obstructive pulmonary disease) J44.9 Multifocal atrial tachycardia I47.1 History of pulmonary embolism Z86.711 Asthma J45.909 GERD (gastroesophageal reflux disease) K21.9 Depression with anxiety F41.8 History of revision of total replacement of right hip joint Z96.641 Hypertension I10 Hyperlipidemia E78.5
[2022-10-10] MEDS: AMPICILLIN 2,000 MG in SODIUM CHLOR 0.9% AD-VAN 100 ML IV SCH ×6 (02:46→21:37)
[2022-10-10 08:44] LABS: Hematocrit (blood only) 27.1 % (34.1-44.9); Hemoglobin 8.3 g/dl (12.0-16.0); Mean Corpuscular Hemoglobin 31.7 pg (25.0-34.0); Mean Corpuscular Hgb Conc 30.6 g/dL (32.0-36.0); Mean Corpuscular Volume 103.4 fL (80.0-100.0); Mean Platelet Volume 10.1 fL (9.4-12.3); Platelet Count 276 K/uL (130-400); RDW Coefficient of Variation 15.4 % (11.5-14.5); RDW Standard Deviation 58.2 fL (36.4-46.3); Red Blood Count 2.62 M/uL (3.93-5.22); White Blood Count 10.05 K/ul (4.8-10.8)
--- NOTE | 2022-10-10 08:49 | XRay Report ---
XR chest 1V portable HISTORY: 67 years-old Female hypoxia acute hypoxia COMPARISON: Chest radiograph 10/08/2022 TECHNIQUE: AP view of the chest FINDINGS: Left-sided PICC distal tip is noted within the expected location of the mid SVC. The cardiac silhouet te is enlarged. No pneumothorax. Trace pleural effusions. Mildly improved pulmonary edema. Degenerati ve changes of the shoulders and spine. IMPRESSION: 1. Cardiomegaly with mildly improved pulmonary edema. 2. Trace pleural effusions. 3. Left-sided PICC distal tip terminates within the expected location of the mid SVC. ACT 112: Negative or not required by law. The above report was generated using voice recognition software. It may contain grammatical, syntax o r spelling errors. Electronically signed by: Mani Zapata M.D. 10/10/2022 8:48 AM
[2022-10-10 09:03] LABS: BUN Creatinine Ratio 31.9 (10-20); C Reactive Protein 2.69 mg/dl (0-0.5); Calcium 7.9 mg/dl (8.5-10.1); Est GFR (African American) 75.1 ml/min; Est GFR (Non-African American) 64.8 ml/min
[2022-10-10] MEDS ORDERED: LANTUS PER UNIT CHARGE SQ ONE (09:15)
[2022-10-10] MEDS: INSULIN ASPART PER UNIT SC SCH ×4 (09:59→21:14)
[2022-10-10] MEDS: FAMOTIDINE 20 MG TAB PO SCH ×2 (10:06→21:36)
[2022-10-10] MEDS: HYDROCORTISONE 10 MG TAB PO SCH ×2 (10:06→18:19)
[2022-10-10] MEDS: PANTOprazole 40 MG TAB PO SCH ×2 (10:06→21:37)
[2022-10-10] MEDS: APIXABAN 5 MG TABLET PO SCH ×2 (10:06→21:37)
[2022-10-10] MEDS: METOPROLOL SUCC 50MG EXT REL TAB PO SCH (10:06)
[2022-10-10] MEDS: ASPIRIN 81 MG ECTAB PO SCH (10:06)
[2022-10-10] MEDS: dexAMETHasone 6 MG in SYRINGE 0 ML IV SCH ×2 (10:06→21:36)
[2022-10-10] MEDS: FLUTICASONE/VILANTEROL 200/25MCG 14 PUFFS/INHALER INH SCH (10:07)
[2022-10-10] MEDS: FLUDROCORTISONE ACETATE 0.1 MG TAB PO SCH (10:07)
[2022-10-10] MEDS: FUROSEMIDE 40 MG/4 ML VIAL IV SCH ×2 (10:07→18:18)
[2022-10-10] MEDS ORDERED: REMDESIVIR 200 MG in SODIUM CHLORIDE 0.9% 210 ML IV STA (10:22)
[2022-10-10] MEDS: POTASSIUM CHLORIDE CRTAB 20 MEQ TABCR PO SCH ×2 (10:37→22:12)
[2022-10-10] MEDS: oxyCODONE HCL IR 5 MG TAB (IMMEDIATE RELEASE) PO PRN ×2 (10:40→17:36)
[2022-10-10] MEDS: NICOTINE 21 MG/24 HR TDSY TD SCH (11:04)
[2022-10-10] MEDS: ALBUT/IPRATROP 3MG/0.5MG NEB 3 ML VIAL NEB SCH ×3 (11:23→18:21)
--- NOTE | 2022-10-10 14:41 | XCELERA ---
[id number]
[2022-10-10] MEDS: guaiFENesin 600 MG TABCR PO SCH (21:36)
--- NOTE | 2022-10-10 22:12 | Hospitalist Progress Note ---
Date of Service October 10, 2022 Assessment & Plan (1) Acute respiratory failure with hypoxia: Plan: 2nd to acute/chronic diastolic CHF +/- COVID-19 pneumonia in setting of COPD. Continue IV lasix. Add Remdesivir - start 200mg x 1 today, then 100mg IV daily thereafter; total course up to 5 days. Is on chronic hydrocortisone for adrenal insufficiency - continue to hold. Is on dexamethasone 6mg BID; continue as is. (2) Acute on chronic diastolic CHF (congestive heart failure): Plan: Prior echo with EF 40%, Last echo EF 55--60% 09/15/22 without regional wall motion abnormalities. Cont diuresis with lasix 40mg BID Cont metoprolol succ Dry weight 168 pounds? (3) Adrenal insufficiency: Plan: Typically on hydrocortisone 15mg qam, 5mg pm and florinef 0.1mg daily. Hydrocortisone on hold while on dexamethasone. Cont florinef. (4) Type 2 diabetes mellitus: Plan: Cont lantus Cont novolog HbA1c 7.3% in August (5) COPD (chronic obstructive pulmonary disease): Plan: with exacerbation flare is due to COVID infection cont steroids, nebs, mucinex, etc. (6) Multifocal atrial tachycardia: Plan: h/o EKG at time of admission showed a.fib since then has been NSR even if she had PAF she is already on metoprolol succinate 50mg daily + Eliquis 5mg BID (7) History of pulmonary embolism: Plan: 09/2022 CT chest w/o PEs. (8) GERD (gastroesophageal reflux disease): Plan: Continue PPI twice daily (9) Depression with anxiety: (10) History of revision of total replacement of right hip joint: Plan: see #13 below (11) Hypertension: Plan: Controlled (12) Hyperlipidemia: (13) Septic arthritis of hip: Plan: 08/2022 - s/[place]ant[place] [facility] Continues on IV ampicillin 2000mg q4h via PICC line. Review records to get stop date, etc. Plan PT, OT lori appreciated Admission and Anticipated Discharge Date Admission Date: October 08, 2022 Subjective patient felt short of breath this am she had requested neb treatments at that time those were started this am she feels better since the nebs were begun continues with cough; only mild sputum "I think the cough is my COPD" has had fatigue but it is improved eating improved was requiring NC o2 up until this morning telemetry wnl Review of Systems Review of Systems: gen - no fevers or chills cv - no orthopnea pulm - mild cough, wheezing, congestion, dyspnea GI - no abd pain, nausea or emesis Physical Exam Physical Exam: gen - NAD, pleasant mouth - MMM neck - no JVD heart - RRR, s1 s2, 1/6 SABRINA LLSB lungs - mild end-exp wheezes with occasional rales in the bases abd - soft NT ND BS+ ext - trace edema b/l, pulses 2+ b/l musculo - right leg is shorter than left leg psych - a/o x 3 Results & Data Results & Data ([facility]) Vital Signs (Past 12 Hours) Vital Signs Temp Pulse Resp BP Pulse Ox O2 Del Method 10/10/22 18:22 78 18 93 Room Air 10/10/22 15:20 69 17 96 Room Air 10/10/22 12:50 36.8 C 81 20 147/82 H 96 Room Air 10/10/22 10:58 66 17 95 Room Air Laboratory Results Laboratory Results - last 24 hr 10/08/22 10/10/22 10/10/22 17:50 08:25 08:25 WBC 10.05 RBC 2.62 L Hgb 8.3 L Hct 27.1 L MCV 103.4 H MCH 31.7 MCHC 30.6 L RDW Std Deviation 58.2 H RDW Coeff of Crow 15.4 H Plt Count 276 MPV 10.1 Sodium 142 Potassium 4.0 Chloride 104 Carbon Dioxide 32 Anion Gap 6 BUN 29 H Creatinine 0.91 Est Cr Clr Drug Dosing 58.0 Est GFR ( Amer) 75.1 Est GFR (Non-Af Amer) 64.8 BUN/Creatinine Ratio 31.9 H Glucose 131 H POC Glucose 109 H Calcium 7.9 L C-Reactive Protein 2.69 H Procalcitonin 10/10/22 10/10/22 10/10/22 08:25 12:43 17:38 WBC RBC Hgb Hct MCV MCH MCHC RDW Std Deviation RDW Coeff of Crow Plt Count MPV Sodium Potassium Chloride Carbon Dioxide Anion Gap BUN Creatinine Est Cr Clr Drug Dosing Est GFR ( Amer) Est GFR (Non-Af Amer) BUN/Creatinine Ratio Glucose POC Glucose 165 H 155 H Calcium C-Reactive Protein Procalcitonin 4.97 H 10/10/22 20:41 WBC RBC Hgb Hct MCV MCH MCHC RDW Std Deviation RDW Coeff of Crow Plt Count MPV Sodium Potassium Chloride Carbon Dioxide Anion Gap BUN Creatinine Est Cr Clr Drug Dosing Est GFR ( Amer) Est GFR (Non-Af Amer) BUN/Creatinine Ratio Glucose POC Glucose 158 H Calcium C-Reactive Protein Procalcitonin PG Care Time/CCT Total # of Minutes Spent Total Time Spent with Patient: Total time spent is greater than 50% in coordination of care (as documented) at patient's floor/unit and/or counseling patient: Coding Level of Care Code 48354 Subseq Hosp Care Lvl 3 Diagnoses Acute respiratory failure with hypoxia J96.01 Acute on chronic diastolic CHF (congestive heart failure) I50.33 Adrenal insufficiency E27.40 Type 2 diabetes mellitus E11.9 COPD (chronic obstructive pulmonary disease) J44.9 Multifocal atrial tachycardia I47.1 History of pulmonary embolism Z86.711 GERD (gastroesophageal reflux disease) K21.9 Depression with anxiety F41.8 History of revision of total replacement of right hip joint Z96.641 Hypertension I10 Hyperlipidemia E78.5 Septic arthritis of hip M00.9
[2022-10-11] MEDS: oxyCODONE HCL IR 5 MG TAB (IMMEDIATE RELEASE) PO PRN ×4 (01:19→21:52)
[2022-10-11] MEDS: AMPICILLIN 2,000 MG in SODIUM CHLOR 0.9% AD-VAN 100 ML IV SCH ×6 (01:23→22:03)
[2022-10-11 06:11] LABS: Basophils # (auto) 0.01 K/uL (0-0.2); Basophils % (auto) 0.1 %; Hematocrit (blood only) 26.8 % (34.1-44.9); Hemoglobin 8.4 g/dl (12.0-16.0); Immature Granulocytes # (auto) 0.08 K/uL (0.00-0.02); Immature Granulocytes % (auto) 0.7 %; Lymphocytes # (auto) 0.86 K/uL (1.2-3.4); Lymphocytes % (auto) 7.7 %; Mean Corpuscular Hemoglobin 31.3 pg (25.0-34.0); Mean Corpuscular Hgb Conc 31.3 g/dL (32.0-36.0); Mean Platelet Volume 10.4 fL (9.4-12.3); Monocytes # (auto) 0.49 K/uL (0.24-0.82); Monocytes % (auto) 4.4 %; Neutrophils % (auto) 87.1 %; Platelet Count 296 K/uL (130-400); RDW Coefficient of Variation 15.4 % (11.5-14.5); RDW Standard Deviation 56.7 fL (36.4-46.3); Red Blood Count 2.68 M/uL (3.93-5.22); White Blood Count 11.14 K/ul (4.8-10.8)
[2022-10-11 06:41] LABS: BUN Creatinine Ratio 32.3 (10-20); Calcium 7.8 mg/dl (8.5-10.1); Creatinine Clr Calc Pharmacy 57.1 ml/min; Est GFR (African American) 73.2 ml/min; Est GFR (Non-African American) 63.1 ml/min; Potassium 3.7 mmol/L (3.5-5.1)
[2022-10-11] MEDS: ALBUT/IPRATROP 3MG/0.5MG NEB 3 ML VIAL NEB SCH ×4 (06:56→20:13)
[2022-10-11] MEDS: ASPIRIN 81 MG ECTAB PO SCH (08:39)
[2022-10-11] MEDS: METOPROLOL SUCC 50MG EXT REL TAB PO SCH (08:39)
[2022-10-11] MEDS: FUROSEMIDE 40 MG/4 ML VIAL IV SCH ×2 (08:39→17:50)
[2022-10-11] MEDS: APIXABAN 5 MG TABLET PO SCH ×2 (08:39→21:49)
[2022-10-11] MEDS: guaiFENesin 600 MG TABCR PO SCH ×2 (08:39→21:49)
[2022-10-11] MEDS: FLUDROCORTISONE ACETATE 0.1 MG TAB PO SCH (08:39)
[2022-10-11] MEDS: FAMOTIDINE 20 MG TAB PO SCH ×2 (08:39→21:49)
[2022-10-11] MEDS: PANTOprazole 40 MG TAB PO SCH ×2 (08:39→21:48)
[2022-10-11] MEDS: FLUTICASONE/VILANTEROL 200/25MCG 14 PUFFS/INHALER INH SCH (08:40)
[2022-10-11] MEDS: INSULIN ASPART PER UNIT SC SCH ×4 (09:05→21:49)
[2022-10-11] MEDS: LANTUS PER UNIT CHARGE SQ SCH (09:06)
[2022-10-11] MEDS: dexAMETHasone 6 MG in SYRINGE 0 ML IV SCH (09:33)
[2022-10-11] MEDS: NICOTINE 21 MG/24 HR TDSY TD SCH (09:33)
[2022-10-11] MEDS: POTASSIUM CHLORIDE CRTAB 20 MEQ TABCR PO SCH ×2 (09:35→21:49)
[2022-10-11] MEDS: REMDESIVIR 100 MG in SODIUM CHLORIDE 0.9% 230 ML IV SCH (13:07)
--- NOTE | 2022-10-11 14:13 | Pharmacy Report ---
Pharmacy Glycemic Short Note 2 - Date of Service October 11, 2022 - Glycemic Short BSG Results (Last 24 hours): 10/10/22 10/10/22 10/11/22 17:38 20:41 05:51 Glucose 89 POC Glucose 155 H 158 H 10/11/22 10/11/22 08:17 12:36 Glucose POC Glucose 108 H 101 H OUTPATIENT ANTIDIABETIC REGIMEN: * Jardiance 10 mg PO daily HbA1c 7.3% (09/13/22) ASSESSMENT: 10/11/22 * Patient received 46 units of insulin yesterday, 30 units basal, fasting BSG 89mg/dl * Blood sugar 101mg/dl prior to lunch, although patient's blood sugars at goal, will empirically decrease basal and loosen CF/CR to prevent hypoglycemia * Patient continues on Dexamethasone 6mg IV BID 10/09/22 * Patient received 45 units of insulin yesterday, 30 units basal, fasting BSG 118mg/dl, will continue with 30 units daily at this time * Continue CF/CR, pt continues on Dexamethasone 6mg IV BID * Taper insulin doses down as steroids tapered down 10/08/22 * RH is a 67 year old female who presents to ED with shortness of breath upon wa nelli up this morning * Pertinent PMH includes COPD, asthma, CHF, and T2DM * Ordered IV steroids at this time, methylprednisolone 60 mg IV x 1 this morning and dexamethasone 6 mg IV BID starting this evening * Hyperglycemic on admission (BSG of 237 mg/dL) and likely to worsen in light of steroids * Will be slightly conservative with first dose of basal and allow for increased dose at HS based on BSG for dose up to ~weight-based stress of 3 dosing PLAN FOR INPATIENT GLYCEMIC CONTROL: * Hold outpatient oral diabetes medications * Basal insulin -decrease * Lantus 22 units SQ daily * Bolus insulin -loosen CF/CR * NovoLog per scale ACHS or Q6hrs while NPO * Goal Range: Low 110 mg/dL - High 140 mg/dL * Correction Factor: 30 mg/dL/unit * Nutritional / Prandial insulin per carb ratio of 1 unit per 12 grams CHO consumed
[2022-10-11] MEDS ORDERED: dexAMETHasone 4 MG TAB PO ONE (17:45)
--- NOTE | 2022-10-11 22:06 | Hospitalist Progress Note ---
Date of Service October 11, 2022 Assessment & Plan (1) Acute respiratory failure with hypoxia: Plan: 2nd to acute/chronic diastolic CHF +/- COVID-19 pneumonia in setting of COPD. Improved/resolved. NC O2 has been weaned off. Day #2 of Remdesivir. Is on chronic hydrocortisone for adrenal insufficiency - continue to hold. Is on dexamethasone 6mg BID; this can be weaned -- stop the IV dex, change to 4mg daily in the AM. Patient appears euvolemic today - stop IV lasix after tonight's dose; change to PO lasix tomorrow. (2) COVID-19: Plan: possible pneumonia from such has had o2 requirement but fortunately weaned off yesterday remains on dexamethasone remains on Remdesivir - day #2 today overall improving nicely cont airborne isolation (3) Acute on chronic diastolic CHF (congestive heart failure): Plan: Prior echo with EF 40%, Last echo EF 55--60% 09/15/22 without regional wall motion abnormalities. Cont diuresis with lasix 40mg BID today then stop IV lasix after the 5pm dose. Cont metoprolol succ Was taking 40mg of lasix daily at home. Perhaps because of IV fluids from her IV abx she became fluid overloaded? A.fib? (was in a.fib upon ER presentation; since then has been back in NSR). Other factors? Will increase lasix to 60mg once daily qam starting tomorrow. Potentially d/c her home on this higher dose of 60mg daily. (4) Adrenal insufficiency: Plan: Typically on hydrocortisone 15mg qam, 5mg pm and florinef 0.1mg daily. Hydrocortisone on hold while on dexamethasone. Cont florinef. Wean dexamethasone as above. (5) Type 2 diabetes mellitus: Plan: Cont lantus Cont novolog HbA1c 7.3% in August BSGs well controlled Is typically not on insulin at home - will need to start cutting this back or stopping as we wean steroids (6) COPD (chronic obstructive pulmonary disease): Plan: with exacerbation flare is due to COVID infection cont steroids, nebs, mucinex, etc. (7) Multifocal atrial tachycardia: Plan: h/o EKG at time of admission showed a.fib since then has been NSR even if she had PAF she is already on metoprolol succinate 50mg daily + Eliquis 5mg BID tele overnight with NSR again (8) History of pulmonary embolism: Plan: 09/2022 CT chest w/o PEs. (9) GERD (gastroesophageal reflux disease): Plan: Continue PPI twice daily (10) Depression with anxiety: (11) History of revision of total replacement of right hip joint: Plan: see #13 below (12) Hypertension: Plan: Controlled (13) Hyperlipidemia: (14) Septic arthritis of hip: Plan: Early September 2022 admitted to [facility] and had enterococcus bacteremia - either urine source or right hip source (h/o multiple surgeries of right hip in the last few years). discharged from [facility] on 09/18/22. Followed up in [place] at [facility] Ortho clinic on 09/19/22 - directly admitted to [facility] for aspiration of right hip. 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 Anemia 2/2 blood loss at that time. Discharged from [facility] 10/02 on apixaban 5 BID (due to a.fib?) and ampicillin 2g Q4h. Ampicillin to be continued until 11/07/22. Remains on IV ampicillin 2000mg q4h via PICC line. Ampicillin to be continued until 11/07/22. (15) Candiduria: Plan: oj glabrata grew from urine cx would be in favor of NOT treating at this time simply pull leggett after d/c of leggett consider recheck of u/a and urine cx most cases of candiduria resolve w/ discontinuation of the leggett catheter Plan PT, OT lorals appreciated ok to return home at d/c d/c leggett in am home tomorrow on 10/12?? Admission and Anticipated Discharge Date Admission Date: October 08, 2022 Subjective "I feel good" minimal amount of dyspnea cough improved no cp no chest tightness eating well no fevers/chills/body aches leggett remains in place hoping to go home soon Review of Systems Review of Systems: gen - no fevers or chills GI - no abd pain, nausea or emesis pulm - mild cough but no sputum CV - no orthopnea, no PND Physical Exam Physical Exam: gen - NAD, pleasant; looks good today mouth - MMM neck - no JVD heart - RRR, s1 s2, 10/20 SABRINA LLSB lungs - essentially CTA b/l; scant scattered rales abd - soft NT ND BS+ ext - no edema b/l, pulses 2+ b/l musculo - right leg is shorter than left leg psych - a/o x 3 Results & Data Results & Data ([facility]) Vital Signs (Past 12 Hours) Vital Signs Temp Pulse Pulse Pulse Pulse Resp BP 10/11/22 19:50 36.8 C 76 18 124/74 10/11/22 20:15 80 16 10/11/22 15:00 76 10/11/22 17:33 37 C 70 18 147/84 H 10/11/22 14:22 76 18 10/11/22 12:39 36.7 C 75 18 113/73 10/11/22 11:40 83 16 10/11/22 10:16 Pulse Ox O2 Del Method 10/11/22 19:50 95 Room Air 10/11/22 20:15 93 Room Air 10/11/22 15:00 10/11/22 17:33 99 Room Air 10/11/22 14:22 94 Room Air 10/11/22 12:39 96 Nasal Cannula 10/11/22 11:40 94 Room Air 10/11/22 10:16 Room Air Laboratory Results Laboratory Results - last 24 hr 10/11/22 10/11/22 10/11/22 05:51 05:51 05:51 WBC 11.14 H RBC 2.68 L Hgb 8.4 L Hct 26.8 L MCV 100.0 MCH 31.3 MCHC 31.3 L RDW Std Deviation 56.7 H RDW Coeff of Crow 15.4 H Plt Count 296 MPV 10.4 Immature Gran % (Auto) 0.7 Neut % (Auto) 87.1 Lymph % (Auto) 7.7 Butler % (Auto) 4.4 Eos % (Auto) 0.0 Baso % (Auto) 0.1 Neut # (Auto) 9.70 H Lymph # (Auto) 0.86 L Butler # (Auto) 0.49 Eos # (Auto) 0.00 Baso # (Auto) 0.01 Immature Gran # (Auto) 0.08 H Sodium 142 Potassium 3.7 Chloride 103 Carbon Dioxide 30 Anion Gap 9 BUN 30 H Creatinine 0.93 Est Cr Clr Drug Dosing 57.1 Est GFR ( Amer) 73.2 Est GFR (Non-Af Amer) 63.1 BUN/Creatinine Ratio 32.3 H Glucose 89 POC Glucose Calcium 7.8 L AST 14 ALT 11 Folate 6.90 10/11/22 10/11/22 10/11/22 08:17 12:36 17:27 WBC RBC Hgb Hct MCV MCH MCHC RDW Std Deviation RDW Coeff of Crow Plt Count MPV Immature Gran % (Auto) Neut % (Auto) Lymph % (Auto) Butler % (Auto) Eos % (Auto) Baso % (Auto) Neut # (Auto) Lymph # (Auto) Butler # (Auto) Eos # (Auto) Baso # (Auto) Immature Gran # (Auto) Sodium Potassium Chloride Carbon Dioxide Anion Gap BUN Creatinine Est Cr Clr Drug Dosing Est GFR ( Amer) Est GFR (Non-Af Amer) BUN/Creatinine Ratio Glucose POC Glucose 108 H 101 H 79 Calcium AST ALT Folate 10/11/22 20:50 WBC RBC Hgb Hct MCV MCH MCHC RDW Std Deviation RDW Coeff of Crow Plt Count MPV Immature Gran % (Auto) Neut % (Auto) Lymph % (Auto) Butler % (Auto) Eos % (Auto) Baso % (Auto) Neut # (Auto) Lymph # (Auto) Butler # (Auto) Eos # (Auto) Baso # (Auto) Immature Gran # (Auto) Sodium Potassium Chloride Carbon Dioxide Anion Gap BUN Creatinine Est Cr Clr Drug Dosing Est GFR ( Amer) Est GFR (Non-Af Amer) BUN/Creatinine Ratio Glucose POC Glucose 91 Calcium AST ALT Folate PG Care Time/CCT Total # of Minutes Spent Total Time Spent with Patient: Total time spent is greater than 50% in coordination of care (as documented) at patient's floor/unit and/or counseling patient: Coding Level of Care Code 57730 Subseq Hosp Care Lvl 3 Diagnoses Acute respiratory failure with hypoxia J96.01 COVID-19 U07.1 Acute on chronic diastolic CHF (congestive heart failure) I50.33 Adrenal insufficiency E27.40 Type 2 diabetes mellitus E11.9 COPD (chronic obstructive pulmonary disease) J44.9 Multifocal atrial tachycardia I47.1 History of pulmonary embolism Z86.711 GERD (gastroesophageal reflux disease) K21.9 Depression with anxiety F41.8 History of revision of total replacement of right hip joint Z96.641 Hypertension I10 Hyperlipidemia E78.5 Septic arthritis of hip M00.9 Candiduria B37.49
[2022-10-12] MEDS: AMPICILLIN 2,000 MG in SODIUM CHLOR 0.9% AD-VAN 100 ML IV SCH ×6 (01:42→21:12)
[2022-10-12] MEDS: ALBUT/IPRATROP 3MG/0.5MG NEB 3 ML VIAL NEB SCH ×4 (05:59→19:10)
[2022-10-12 06:23] LABS: Hematocrit (blood only) 26.8 % (34.1-44.9); Hemoglobin 8.5 g/dl (12.0-16.0); Mean Corpuscular Hgb Conc 31.7 g/dL (32.0-36.0); Mean Corpuscular Volume 100.8 fL (80.0-100.0); Mean Platelet Volume 10.5 fL (9.4-12.3); Platelet Count 272 K/uL (130-400); RDW Coefficient of Variation 15.2 % (11.5-14.5); RDW Standard Deviation 56.5 fL (36.4-46.3); Red Blood Count 2.66 M/uL (3.93-5.22); White Blood Count 8.98 K/ul (4.8-10.8)
[2022-10-12 06:55] LABS: BUN Creatinine Ratio 35.7 (10-20); Calcium 7.9 mg/dl (8.5-10.1); Creatinine Clr Calc Pharmacy 63.2 ml/min; Est GFR (African American) 82.8 ml/min; Est GFR (Non-African American) 71.4 ml/min; Potassium 3.7 mmol/L (3.5-5.1)
[2022-10-12] MEDS ORDERED: FUROSEMIDE 40 MG TAB PO SCH (09:00)
[2022-10-12] MEDS ORDERED: LANTUS PER UNIT CHARGE SQ SCH (09:00)
[2022-10-12] MEDS: INSULIN ASPART PER UNIT SC SCH ×4 (09:15→21:12)
[2022-10-12] MEDS: FLUTICASONE/VILANTEROL 200/25MCG 14 PUFFS/INHALER INH SCH (09:39)
[2022-10-12] MEDS: FLUDROCORTISONE ACETATE 0.1 MG TAB PO SCH (09:39)
[2022-10-12] MEDS: METOPROLOL SUCC 50MG EXT REL TAB PO SCH (09:40)
[2022-10-12] MEDS: FUROSEMIDE 20 MG TAB PO SCH (09:40)
[2022-10-12] MEDS: FAMOTIDINE 20 MG TAB PO SCH ×2 (09:41→21:11)
[2022-10-12] MEDS: guaiFENesin 600 MG TABCR PO SCH ×2 (09:41→21:11)
[2022-10-12] MEDS: dexAMETHasone 4 MG TAB PO SCH (09:41)
[2022-10-12] MEDS: APIXABAN 5 MG TABLET PO SCH ×2 (09:41→21:12)
[2022-10-12] MEDS: PANTOprazole 40 MG TAB PO SCH ×2 (09:41→21:11)
[2022-10-12] MEDS: ASPIRIN 81 MG ECTAB PO SCH (09:42)
[2022-10-12] MEDS: NICOTINE 21 MG/24 HR TDSY TD SCH (09:42)
[2022-10-12] MEDS: oxyCODONE HCL IR 5 MG TAB (IMMEDIATE RELEASE) PO PRN ×2 (09:49→18:27)
[2022-10-12] MEDS: POTASSIUM CHLORIDE CRTAB 20 MEQ TABCR PO SCH ×2 (09:49→21:11)
[2022-10-12] MEDS: REMDESIVIR 100 MG in SODIUM CHLORIDE 0.9% 230 ML IV SCH (12:41)
--- NOTE | 2022-10-12 12:52 | Pharmacy Report ---
Pharmacy Glycemic Short Note 2 - Date of Service October 12, 2022 - Glycemic Short BSG Results (Last 24 hours): 10/11/22 10/11/22 10/12/22 17:27 20:50 05:53 Glucose 59 L POC Glucose 79 91 10/12/22 12:29 Glucose POC Glucose 116 H OUTPATIENT ANTIDIABETIC REGIMEN: * Jardiance 10 mg PO daily HbA1c 7.3% (09/13/22) ASSESSMENT: 10/12/22 * Patient received total of 38 units of insulin yesterday, of which 30 units were basal insulin * BSG on AM labs low at 59 mg/dL - steroids changing around from Dxm 6 mg bid IV to Dxm 4 mg po daily, anticipate insulin needs to decrease with steroids changing * Will hold further basal this morning and utilize novolog for now 10/11/22 * Patient received 46 units of insulin yesterday, 30 units basal, fasting BSG 89mg/dl * Blood sugar 101mg/dl prior to lunch, although patient's blood sugars at goal, will empirically decrease basal and loosen CF/CR to prevent hypoglycemia * Patient continues on Dexamethasone 6mg IV BID 10/09/22 * Patient received 45 units of insulin yesterday, 30 units basal, fasting BSG 118mg/dl, will continue with 30 units daily at this time * Continue CF/CR, pt continues on Dexamethasone 6mg IV BID * Taper insulin doses down as steroids tapered down 10/08/22 * RH is a 67 year old female who presents to ED with shortness of breath upon waking up this morning * Pertinent PMH includes COPD, asthma, CHF, and T2DM * Ordered IV steroids at this time, methylprednisolone 60 mg IV x 1 this morning and dexamethasone 6 mg IV BID starting this evening * Hyperglycemic on admission (BSG of 237 mg/dL) and likely to worsen in light of steroids * Will be slightly conservative with first dose of basal and allow for increased dose at HS based on BSG for dose up to ~weight-based stress of 3 dosing PLAN FOR INPATIENT GLYCEMIC CONTROL: * Hold outpatient oral diabetes medications * Basal insulin - hold * Bolus insulin * NovoLog per scale ACHS or Q6hrs while NPO * Goal Range: Low 110 mg/dL - High 140 mg/dL * Correction Factor: 30 mg/dL/unit * Nutritional / Prandial insulin per carb ratio of 1 unit per 12 grams CHO consumed
--- NOTE | 2022-10-12 22:29 | Hospitalist Progress Note ---
Date of Service October 12, 2022 Assessment & Plan (1) Acute respiratory failure with hypoxia: Plan: 2nd to acute/chronic diastolic CHF +/- COVID-19 pneumonia in setting of COPD. Improved/resolved. NC O2 has been weaned off. Day #3 of Remdesivir. Is on chronic hydrocortisone for adrenal insufficiency - continue to hold. Is on dexamethasone 6mg BID; this can be weaned -- stop the IV dex, change to 4mg daily in the AM. Patient appears euvolemic today - PO lasix (2) COVID-19: Plan: possible pneumonia from such has had o2 requirement but fortunately weaned off yesterday remains on dexamethasone remains on Remdesivir - day #3 overall improving nicely cont airborne isolation (3) Acute on chronic diastolic CHF (congestive heart failure): Plan: Prior echo with EF 40%, Last echo EF 55--60% 09/15/22 without regional wall motion abnormalities. Cont diuresis with lasix 40mg BID today then stop IV lasix after the 5pm dose. Cont metoprolol succ Was taking 40mg of lasix daily at home. Perhaps because of IV fluids from her IV abx she became fluid overloaded? A.fib? (was in a.fib upon ER presentation; since then has been back in NSR). Other factors? Will increase lasix to 60mg once daily qam starting tomorrow. Potentially d/c her home on this higher dose of 60mg daily. (4) Adrenal insufficiency: Plan: Typically on hydrocortisone 15mg qam, 5mg pm and florinef 0.1mg daily. Hydrocortisone on hold while on dexamethasone. Cont florinef. Wean dexamethasone as above. (5) Type 2 diabetes mellitus: Plan: Cont lantus Cont novolog HbA1c 7.3% in August BSGs well controlled Is typically not on insulin at home - will need to start cutting this back or stopping as we wean steroids (6) COPD (chronic obstructive pulmonary disease): Plan: with exacerbation flare is due to COVID infection cont steroids, nebs, mucinex, etc. (7) Multifocal atrial tachycardia: Plan: h/o EKG at time of admission showed a.fib since then has been NSR even if she had PAF she is already on metoprolol succinate 50mg daily + Eliquis 5mg BID tele overnight with NSR again (8) History of pulmonary embolism: Plan: 09/2022 CT chest w/o PEs. (9) GERD (gastroesophageal reflux disease): Plan: Continue PPI twice daily (10) Depression with anxiety: (11) History of revision of total replacement of right hip joint: Plan: see #13 below (12) Hypertension: Plan: Controlled (13) Hyperlipidemia: (14) Septic arthritis of hip: Plan: Early September 2022 admitted to [facility] and had enterococcus bacteremia - either urine source or right hip source (h/o multiple surgeries of right hip in the last few years). discharged from [facility] on 09/18/22. Follow[place] [facility] [place] - directly admitted [place] [facility] for aspiration of right hip. 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 Anemia 2/2 blood loss at that time. [place] [facility] [place] on apixaban 5 BID (due to a.fib?) and ampicillin 2g Q4h. Ampicillin to be continued until 11/07/22. Remains on IV ampicillin 2000mg q4h via PICC line. Ampicillin to be continued until 11/07/22. settijng up home antibiotics. discharge on 10/13 (15) Candiduria: Plan: oj glabrata grew from urine cx would be in favor of NOT treating at this time simply pull leggett after d/c of leggett consider recheck of u/a and urine cx most cases of candiduria resolve w/ discontinuation of the leggett catheter Plan PT, OT lori appreciated ok to return home at d/c d/c leggett in am home tomorrow on 10/13 Admission and Anticipated Discharge Date Admission Date: October 08, 2022 Subjective 67 yo female reports feeling well. She is excited to be discharged tomorrow. Review of Systems Review of Systems: All systems reviewed & are unremarkable except as noted in HPI & below Physical Exam Physical Exam: General: A&Ox3. NAD. Cooperative. comfortable HEENT: Atraumatic, normocephalic. Vision/hearing grossly intact Pulm: Moderate air movement, no rales/wheezes are appreciated at time of assessment, somewhat diminished in the bases.No increased work of breathing. No respiratory distress. Cardiac: Tachycardic, irregular.-mrg. Radial pulses intact and symmetrical. Abdominal: Nontender, nondistended, soft. BS present. Extremities: Left upper arm with PICC line in place, no surrounding tenderness/crepitus/erythema. Legs are without pitting edema. Right hip is with postsurgical dressing intact, no surrounding erythema/warmth/tenderness able to wiggle toes bilaterally without deficit, sensation to soft touch intact in hands and feet bilaterally. Earth Burner strength intact 5/5 bilaterally Results & Data Results & Data ([facility]) Vital Signs (Past 12 Hours) Vital Signs Temp Pulse Resp BP BP Pulse Ox O2 Del Method 10/12/22 20:45 Room Air 10/12/22 19:11 67 16 97 Room Air 10/12/22 19:02 36.6 C 74 19 146/86 H 97 Room Air 10/12/22 15:22 36.7 C 75 20 132/77 99 Room Air 10/12/22 14:52 78 18 97 Room Air 10/12/22 12:33 36.7 C 78 19 130/74 97 Room Air 10/12/22 11:06 71 16 97 Room Air PG Care Time/CCT Total # of Minutes Spent Total Time Spent with Patient: Total time spent is greater than 50% in coordination of care (as documented) at patient's floor/unit and/or counseling patient: Coding Level of Care Code 42814 Subseq Hosp Care Lvl 3 Diagnoses Acute respiratory failure with hypoxia J96.01 COVID-19 U07.1 Acute on chronic diastolic CHF (congestive heart failure) I50.33 Adrenal insufficiency E27.40 Type 2 diabetes mellitus E11.9 COPD (chronic obstructive pulmonary disease) J44.9 Multifocal atrial tachycardia I47.1 History of pulmonary embolism Z86.711 GERD (gastroesophageal reflux disease) K21.9 Depression with anxiety F41.8 History of revision of total replacement of right hip joint Z96.641 Hypertension I10 Hyperlipidemia E78.5 Septic arthritis of hip M00.9 Candiduria B37.49 Time Spent (min) 35
[2022-10-13] MEDS: AMPICILLIN 2,000 MG in SODIUM CHLOR 0.9% AD-VAN 100 ML IV SCH ×3 (02:15→09:11)
[2022-10-13] MEDS: oxyCODONE HCL IR 5 MG TAB (IMMEDIATE RELEASE) PO PRN ×2 (03:24→09:53)
[2022-10-13] MEDS: ALBUT/IPRATROP 3MG/0.5MG NEB 3 ML VIAL NEB SCH ×2 (07:39→11:20)
[2022-10-13] MEDS: dexAMETHasone 4 MG TAB PO SCH (08:08)
[2022-10-13] MEDS: FUROSEMIDE 20 MG TAB PO SCH (08:08)
[2022-10-13] MEDS: APIXABAN 5 MG TABLET PO SCH (08:08)
[2022-10-13] MEDS: FAMOTIDINE 20 MG TAB PO SCH (08:08)
[2022-10-13] MEDS: METOPROLOL SUCC 50MG EXT REL TAB PO SCH (08:08)
[2022-10-13] MEDS: FLUDROCORTISONE ACETATE 0.1 MG TAB PO SCH (08:08)
[2022-10-13] MEDS: PANTOprazole 40 MG TAB PO SCH (08:08)
[2022-10-13] MEDS: FLUTICASONE/VILANTEROL 200/25MCG 14 PUFFS/INHALER INH SCH (08:08)
[2022-10-13] MEDS: guaiFENesin 600 MG TABCR PO SCH (08:08)
[2022-10-13] MEDS: ASPIRIN 81 MG ECTAB PO SCH (08:08)
[2022-10-13] MEDS: NICOTINE 21 MG/24 HR TDSY TD SCH (08:09)
[2022-10-13] MEDS: INSULIN ASPART PER UNIT SC SCH (09:06)
[2022-10-13] MEDS: POTASSIUM CHLORIDE CRTAB 20 MEQ TABCR PO SCH (09:11)
--- NOTE | 2022-10-13 11:08 | Pharmacy Report ---
Pharmacy Glycemic Short Note 2 - Date of Service October 13, 2022 - Glycemic Short BSG Results (Last 24 hours): 10/12/22 10/12/22 10/12/22 08:26 12:29 17:31 POC Glucose 83 116 H 90 10/12/22 10/13/22 20:52 07:19 POC Glucose 84 107 H OUTPATIENT ANTIDIABETIC REGIMEN: * Jardiance 10 mg PO daily HbA1c 7.3% (09/13/22) ASSESSMENT: 10/13/22 * Patient received total of 9 units of insulin yesterday, all correctional * Fasting BSG 107 mg/dL - basal insulin not currently warranted * Loosened CR this morning as BSGs trending down yesterday 10/12/22 * Patient received total of 38 units of insulin yesterday, of which 30 units were basal insulin * BSG on AM labs low at 59 mg/dL - steroids changing around from Dxm 6 mg bid IV to Dxm 4 mg po daily, anticipate insulin needs to decrease with steroids ramirez ing * Will hold further basal this morning and utilize novolog for now 10/11/22 * Patient received 46 units of insulin yesterday, 30 units basal, fasting BSG 89mg/dl * Blood sugar 101mg/dl prior to lunch, although patient's blood sugars at goal, will empirically decrease basal and loosen CF/CR to prevent hypoglycemia * Patient continues on Dexamethasone 6mg IV BID 10/09/22 * Patient received 45 units of insulin yesterday, 30 units basal, fasting BSG 118mg/dl, will continue with 30 units daily at this time * Continue CF/CR, pt continues on Dexamethasone 6mg IV BID * Taper insulin doses down as steroids tapered down 10/08/22 * RH is a 67 year old female who presents to ED with shortness of breath upon waking up this morning * Pertinent PMH includes COPD, asthma, CHF, and T2DM * Ordered IV steroids at this time, methylprednisolone 60 mg IV x 1 this morning and dexamethasone 6 mg IV BID starting this evening * Hyperglycemic on admission (BSG of 237 mg/dL) and likely to worsen in light of steroids * Will be slightly conservative with first dose of basal and allow for increased dose at HS based on BSG for dose up to ~weight-based stress of 3 dosing PLAN FOR INPATIENT GLYCEMIC CONTROL: * Hold outpatient oral diabetes medications * Basal insulin - hold * Bolus insulin * NovoLog per scale ACHS or Q6hrs while NPO * Goal Range: Low 110 mg/dL - High 140 mg/dL * Correction Factor: 30 mg/dL/unit * Nutritional / Prandial insulin per carb ratio of 1 unit per 20 grams CHO consumed
--- NOTE | 2022-10-13 16:53 | Discharge Summary ---
Date of Service October 13, 2022 Admission HPI Per Admitting Provider Radha Tello is a 67yo F w/ PMHx of CHF with EF 40-45% at baseline, A. fib on anticoagulation with Eliquis, adrenal insufficiency, depression, asthma, COPD, pulmonary nodules, GERD, carotid stenosis, chronic cerebral ischemia, CKD 3B, impaired fasting glucose recently admitted, 4/ enterococcus faecalis amp sensitive bactermia initially suspected septic arthritis vs UTI ultimately tx & discharged from [facility] [place] 10/02 on apixaban 5 BID and ampicillin 2g Q4h. 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 Anemia 2/2 blood loss at that time. Ampicillin to be continued until 11/07/22. Presents with shortness of breath after waking up AM of presentation. NO pain. Per EMS pt hypoxic to 80s in the field, improved with CPAP. Recieved 10mg IV diltiazem for HR 140s in field. CXR showing asymmetric pulmonary edema. Patient reports she thinks she is coming down with the flu, notes she has had fever for 1 day and feeling generally tired. She reports that she has had a deep wet cough, but has not been able to produce sputum and coughing vigorously makes her little bit nauseous. She thinks she was wheezing previously, at time of ER assessment she feels better on CPAP and after treatments and is no longer wheezing. She reports she has not had any leg swelling and that her legs "actually look really good ". She reports since her last discharge she has been diligent with a low-salt diet, and has not had any salt load or dietary indiscretion including [place] dinner/ham/meals. She has not had any chest pain or chest pressure. She reports that she has had chronic right hip pain after her hardware explantation, but her surrounding site has not had any drainage/leakage or problems. She notes that she is strict nonweightbearing per her surgeon, and was not supposed to change the dressing herself until follow-up with her surgeon which was scheduled for Sunday of this coming week (in appro ximately 2 days). Denies dysuria or change in urinary symptoms. Denies abdominal pain. Is on a DOAC since discharge from [place], reportedly A. fib was appreciated at that time. PICC is present in her left arm, she has had no problems with infusions. Has not taken her medications this morning Medical History: Reviewed Medications: Reviewed Surgical History: Reviewed Allergies: Reviewed Social History: Reviewed Code Status: Full code Principal Diagnosis COVID 19 Discharge Exam General: A&Ox3. NAD. Cooperative. comfortable HEENT: Atraumatic, normocephalic. Vision/hearing grossly intact Pulm: Moderate air movement, no rales/wheezes are appreciated at time of assessment, somewhat diminished in the bases.No increased work of breathing. No respiratory distress. Cardiac: regular rate. irregular.-mrg. Radial pulses intact and symmetrical. Abdominal: Nontender, nondistended, soft. BS present. Extremities: Left upper arm with PICC line in place, no surrounding tenderness/crepitus/erythema. Legs are without pitting edema. Right hip is with postsurgical dressing intact, no surrounding erythema/warmth/tenderness able to wiggle toes bilaterally without deficit, sensation to soft touch intact in hands and feet bilaterally. Presser Cotton Ginning strength intact 5/5 bilaterally Discharge Data Allergies Allergy/AdvReac Type Severity Reaction Status Date / Time No Known Allergies Allergy Verified 09/14/22 13:08 Consultations 10/08/22 12:43 ED Decision to Admit Stat Hospital Course (1) Acute respiratory failure with hypoxia: 2nd to acute/chronic diastolic CHF +/- COVID-19 pneumonia in setting of COPD. Improved/resolved. NC O2 has been weaned off. Day #4 of Remdesivir. Is on chronic hydrocortisone for adrenal insufficiency - continue to hold. Is on dexamethasone 6mg BID; this can be weaned -- stop the IV dex, change to 4mg daily. This will be weaned down as per discharge instructions below, and patient will then restart her regular steroids. Patient appears euvolemic today - PO lasix (2) COVID-19: possible pneumonia from such has had o2 requirement but fortunately weaned off yesterday remains on dexamethasone remains on Remdesivir - day #3 overall improving nicely cont airborne isolation (3) Acute on chronic diastolic CHF (congestive heart failure): Prior echo with EF 40%, Last echo EF 55--60% 09/15/22 without regional wall motion abnormalities. Cont diuresis with lasix 40mg BID today then stop IV lasix after the 5pm dose. Cont metoprolol succ Was taking 40mg of lasix daily at home. Perhaps because of IV fluids from her IV abx she became fluid overloaded? A.fib? (was in a.fib upon ER presentation; since then has been back in NSR). Other factors? Will increase lasix to 60mg once daily qam starting tomorrow. d/c her home on this higher dose of 60mg daily. recommend followup with PCP. (4) Adrenal insufficiency: Typically on hydrocortisone 15mg qam, 5mg pm and florinef 0.1mg daily. Hydrocortisone on hold while on dexamethasone. Cont florinef. Wean dexamethasone as above. (5) Type 2 diabetes mellitus: Cont lantus Cont novolog HbA1c 7.3% in AugustGs well controlled Is typically not on insulin at home - will need to start cutting this back or stopping as we wean steroids (6) COPD (chronic obstructive pulmonary disease): with exacerbation flare is due to COVID infection cont steroids, nebs, mucinex, etc. (7) Multifocal atrial tachycardia: h/o EKG at time of admission showed a.zahira since then has been NSR even if she had PAF she is already on metoprolol succinate 50mg daily + Eliquis 5mg BID tele overnight with NSR again (8) History of pulmonary embolism: 09/2022 CT chest w/o PEs. (9) GERD (gastroesophageal reflux disease): Continue PPI twice daily (10) Depression with anxiety: (11) History of revision of total replacement of right hip joint: see #13 below (12) Hypertension: Controlled (13) Hyperlipidemia: (14) Septic arthritis of hip: Early September 2022 admitted to [facility] and had enterococcus bacteremia - either urine source or right hip source (h/o multiple surgeries of right hip in the last few years). discharged from [facility] on 09/18/22. Followed up in [place] at [facility] Ortho clinic on 09/19/22 - directly admitted to [facility] for aspiration of right hip. 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 Anemia 2/2 blood loss at that time. Discharged from [facility] 10/02 on apixaban 5 BID (due to a.fib?) and ampicillin 2g Q4h. Ampicillin to be continued until 1/24/23. Remains on IV ampicillin 2000mg q4h via PICC line. Ampicillin to be continued until 11/07/22. settijng up home antibiotics. discharge on 10/13 (15) Candiduria: oj glabrata grew from urine cx would be in favor of NOT treating at this time simply pull leggett after d/c of leggett consider recheck of u/a and urine cx most cases of candiduria resolve w/ discontinuation of the leggett catheter Plan PT, OT lori appreciated ok to return home at d/c d/c leggett in am Total Time Total Time Spent Total Time Spent (In Minutes): 32 Discharge Plan Discharge Items Patient Disposition: Home - Home Health Services Reason For Visit: AHRF Discharge Diagnosis: AHRF Activity: Resume your previous activity Non-emergency contact: Primary Care Provider Call non-emergency contact if: you have any medication questions Follow-up/Referrals: Edwin Valdez MD [Primary Care Provider] - 10/19/22 2:00 pm Diet: Carb Consistent or DM2 Addtl Attending Provider Instructions: Recommend followup with PCP in 1-2 weeks and for PCP to recheck BMP. Resume hydrocortisone 15 in the AM and 5 mg in the PM once you complete the dexaemtheasone. Last dose of dexamethasone should be Sunday. First dose of hydrocortisone should be Sunday. Ampicillin to be continued until 11/07/22. Pending Studies at Discharge: No Stand-Alone Forms: My [facility], Smoking Cessation Medications and DC Order Prescriptions: New furosemide 20 mg Tablet 60 mg PO QAM Qty: 90 0RF potassium chloride 20 mEq Tablet,Er Particles/Crystals 20 meq PO BID Qty: 60 0RF dexamethasone 1 mg tablet See Rx Instructions .ROUTE .COMPLEX Qty: 10 0RF Rx Instructions: Take 4 tabs for 1 day then 3 tabs for 1 day then 2 tabs for 1 day then 1 tab for 1 day guaifenesin [Mucinex] 600 mg Tablet Extended Release 12hr 1,200 mg PO Q12 Qty: 60 0RF Continued aspirin [Rocio Low Dose Aspirin] 81 mg tablet,delayed release (DR/EC) 81 mg PO QAM Qty: 90 3RF albuterol sulfate [ProAir HFA] 90 mcg/actuation HFA aerosol inhaler 2 inh INHALATION DAILY Qty: 18 5RF fluticasone propion-salmeterol [Advair Diskus] 250-50 mcg/dose blister with device 1 inh inhalation BID Qty: 60 11RF famotidine 20 mg tablet 20 mg PO BID Qty: 90 3RF pantoprazole 40 mg tablet,delayed release (DR/EC) 40 mg PO BID Qty: 90 3RF oxycodone 10 mg tablet 10 mg PO Q6H PRN (Reason: pain) Qty: 180 0RF metoprolol succinate 50 mg tablet extended release 24 hr 50 mg PO DAILY Qty: 90 3RF (DME) Bed Side Commode Misc See Rx Instructions .Route Qty: 1 0RF Rx Instructions: As directed (DME) Bed Rondon See Rx Instructions .Route .MEDSUPPLY Qty: 1 0RF Rx Instructions: Use As directed docusate sodium 100 mg capsule 100 mg PO BID Qty: 60 0RF ampicillin sodium 2 gram recon soln 2 g IV Q4H Qty: 10 0RF Rx Instructions: Per [facility] discharge until 11/07/2022 acetaminophen 325 mg tablet 650 mg PO Q6H PRN (Reason: pain) Qty: 30 0RF fludrocortisone 0.1 mg tablet 0.1 mg PO DAILY Qty: 30 2RF apixaban 5 mg tablet 5 mg PO BID Qty: 60 0RF (DME) incontinence pad, liner, disp Pad See Rx Instructions .Route Qty: 156 6RF Rx Instructions: Blue cora pads for stress incontinence, use up to 5 daily (DME) diaper,brief,adult,dis[facility] See Rx Instructions .Route Qty: 150 11RF Rx Instructions: Adult size large diapers for stress incontinence , use up to 5 daily Narcan 4 mg/actuation spray,non-aerosol 4 mg intranasal DIRECTED PRN (Reason: OVERSEDATION) Rx Instructions: spray 1 dose into ONE nostril; alternate nostrils w each dose until help arrives nicotine 21 mg/24 hr patch 24 hour 1 patch transdermal Q24H atorvastatin 40 mg tablet 40 mg PO DAILY nicotine [Nicoderm CQ] 14 mg/24 hr patch 24 hour 1 patch transdermal Q24H 14 Days Qty: 14 0RF hydrocortisone 10 mg tablet See Rx Instructions .ROUTE .COMPLEX Qty: 45 0RF Rx Instructions: 10 mg in the morning, 5mg 8 hours later Jardiance 10 mg tablet 10 mg PO .HAS NOT STARTED Discontinued furosemide 40 mg tablet 40 mg PO QAM Qty: 90 3RF Hold Instructions: not on [facility] d/c list Discharge Orders: Discharge Order (Routine); Ordered 10/13/22 Ordered By: Alfredo Steele Admission Data Admit Date/Time: 10/08/22 13:00 Attending Provider: Alfredo Steele Admit Provider: Eric Polo Primary Care Provider: Edwin Valdez Other Providers: Eric Polo Other Interventions: Discharge Summary Assessment (RN) Last Done: 10/13/22 11:16 Coding Level of Care Code D/C DAY MANAGEMENT >30 MINS Diagnoses Acute respiratory failure with hypoxia J96.01 COVID-19 U07.1 Acute on chronic diastolic CHF (congestive heart failure) I50.33 Adrenal insufficiency E27.40 Type 2 diabetes mellitus E11.9 COPD (chronic obstructive pulmonary disease) J44.9 Multifocal atrial tachycardia I47.1 History of pulmonary embolism Z86.711 GERD (gastroesophageal reflux disease) K21.9 Depression with anxiety F41.8 History of revision of total replacement of right hip joint Z96.641 Hypertension I10 Hyperlipidemia E78.5 Septic arthritis of hip M00.9 Candiduria B37.49
== END 2022-10-13 12:27 | disposition home health service (06) | DRG 177 ==
LOC: ED 11:07 → 4W 13:00 → SUATTDRO 13:00 → 4W 14:18

== ENCOUNTER 2022-11-09 08:16 | Observation (INO) ==
--- NOTE | 2022-11-09 08:23 | Emergency Department Note ---
Impression & Plan Acute hypoxemic respiratory failure, Acute exacerbation of chronic obstructive pulmonary disease, Continuous tobacco abuse ED Provider Note NAME: DEEPAK CORTEZ AGE: 67 SEX: F : 1955 ARRIVES VIA: Ambulance INFORMANT: Patient, ED PROVIDER(S): Kavin Ordonez MD CHIEF COMPLAINT: Shortness of breath MEDICAL DECISION MAKING: Patient did present due to concern for shortness of breath and had been placed on CPAP and was placed on BiPAP upon presentation to the emergency department. The patient does state that she feels significantly improved. The patient was ordered duo nebs and magnesium. Patient did have bladder completed which showed white count 12.8 hemoglobin 8.7. This appears chronic and stable. Patient's kidney function is unremarkable. Troponin is elevated but has been significantly more elevated in the past notably in September. Patient also did have a respiratory viral panel completed. The patient does feel improved. Patient did have a VBG ordered and had a repeat troponin. The patient is on minimal BiPAP settings 10/5 on room air. Patient was taken off the BiPAP. The patient was noted to be hypoxemic at 8788% was placed on 2 L nasal cannula supplemental oxygen. Given the patient's signi ficant work of breathing earlier today and new oxygen requirement I did speak the on-call hospitalist Dr. Donald and the patient was admitted to the medicine service. Critical Care: I have personally spent 35 minutes of critical care time in direct management of this patient. This includes bedside care, interpretation of diagnostic studies, and testing, discussion with consultants, patient, and family members, and other require inpatient management activities. This 35 minutes is in excess of all separately billable procedures. Prior /Outside records reviewed: None Differential diagnosis: Reactive airway disease, pneumonia, pneumothorax, COPD, CHF, infections, cardiac ischemia, pulmonary embolism, musculoskeletal, gastrointestinal, as well as other pathologies. Diagnostics, as interpreted by me: ECG: Sinus with PVCs, rate of 99, normal NV and QRS normal axis. Cardiac monitoring: An order was placed for continuous cardiac monitoring. The monitor shows a rate of 92 with sinus rhythm. Patient was placed on pulse oximetry Medical decision rules: None Imaging studies: See below HPI: Patient presents due to concern for shortness of breath. The patient states that she began feeling very short of breath around 5 AM this morning and tried her typical inhalers without improvement in symptoms. EMS arrived and had noted her respiratory rate to be in the 40s was immediately placed on CPAP and was given 2 albuterol treatments and a DuoNeb treatment. Patient also did r eceive 125 of Solu-Medrol. The patient states that she does feel improved. The patient has had occasional productive cough but states its not any different from before. The patient does have a known history of COPD and is a smoker smoking about half pack yesterday. Patient denies any current chest pains or leg swelling. PAST MEDICAL HISTORY: See Below PAST SURGICAL HISTORY: See Below SOCIAL HISTORY: See Below HOME MEDICATIONS: See Below ALLERGIES: See Below VITALS: See Below PHYSICAL EXAMINATION: GENERAL: BiPAP mask in place. EYE EXAM: Normal conjunctiva. PERRL, no anisocoria and EOM's grossly intact w/o pain. NECK: Supple, no nuchal rigidity, no adenopathy, non-tender. No signs of meningismus. FROM of the neck with good chin to chest and neck extension. No stridor. LUNGS: Clear to auscultation. Normal chest wall mechanics. HEART: NSR, no MRG. ABDOMEN: Abdomen soft, non-tender, normo-active bowel sounds, no masses, no rebound or guarding. BACK: No CVA TTP. SKIN: No rashes and no bruising. UPPER EXTREMITIES: Upper extremities are grossly normal. LOWER EXTREMITIES: Extremity shorter than left lower extremity, well-healed incisional site over the right hip NEURO EXAM: A&O x3, cranial nerves II-XII grossly intact, normal speech, moves all 4 extremities. Past Med/Surg History Medical History Acute renal failure BEV (acute kidney injury) Asthma PT STATES TAKES RESCUE INHALER DAILY Cardiomyopathy Carotid stenosis, left S/P L CEA (02/18/20) (Prior to CEA patient had 80% LICA stenosis ) Cerebral aneurysm Per records, pt unaware No significant aneurysm noted with head CTA and brain MRI from 01/2020 Chronic heart failure with preserved ejection fraction CKD (chronic kidney disease) stage III CVA (cerebral vascular accident) CVA 02/11/20- no residual effects, follows with [place] neurology, patient was on plavix until ~1 month after left CEA surgery, now on ASA 81mg Depression with anxiety GERD (gastroesophageal reflux disease) Heart failure with mid-range ejection fraction History of Meniere's disease History of prediabetes HGBA1C 6.1% on 01/28/21 History of revision of total replacement of right hip joint 03/25/21 - [facility]; explantation old hardware, wound vac placement. History of septic shock 03/2021 - due to septic R hip; 04/2021 - again due to septic R hip - hospitalized [facility] each admission. Pseudomonas, proteus, oj albicans. Hyperlipidemia Hypertension Multifocal atrial tachycardia Osteoarthritis Paroxysmal atrial fibrillation Pulmonary emboli Pulmonary hypertension RBBB SOB (shortness of breath) Tobacco abuse Tobacco use disorder Surgical History H/O carotid endarterectomy Left CEA: 02/18/20: Grade view 1 with head lift, MAC#3, ETT 7.0 at [facility] History of appendectomy History of bilateral tubal ligation History of brain surgery 5 years ago (Meniere's treatment/[facility]) History of History of cataract surgery R/L History of section x1 History of cholecystectomy History of cholecystectomy History of colonoscopy History of esophagogastroduodenoscopy (EGD) History of incision and drainage right hip - multiple I/D's, 03/2021-04/2021; [facility]. History of tonsillectomy History of tooth extraction History of total hip arthroplasty RT> with repair S/P carotid endarterectomy Status post revision of total hip replacement (~01/2021) Family History Mother Diabetes Family history of diabetes mellitus Sister Diabetes Family history of diabetes mellitus Arterial thrombosis Amputation of leg Father Heart disease Lung disease Other No family history of adverse response to anesthesia Denies family history of Ovarian cancer Prostate cancer Myocardial infarction Breast cancer Colorectal cancer Social History Smoking Status: Current every day smoker Tobacco Type: Cigarettes Age Started Using Tobacco: 17; Age Quit Using Tobacco: 65; packs per day: 1; Cigarettes Per Day: 10; Second Hand Exposure: No; Hx Alcohol Use: No Hx Substance Use: Yes Last Used Substance: Unknown Last Used Substance Other:: 08/31/2021 Substance Use Type Other:: daily use Preferred Language: Chinese Communication Ability: Effective Visual Impairment: No Limitations Hearing Ability: Normal Hedis Analyst Required: No Beliefs That Will Affect Care: None marital status: Unknown Current Living Situation: Alone Current Living Situation Comment: handicap appartment with caregivers current occupational status: retired 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 How many Children do You have: 2 How many Children do You have Comment: 1 child from suicide Other Information That Helps Us Care for You: No Feels Safe at Home: Yes Safety Concerns: Feels Safe At This Time Childhood Exposure to Second-Hand Smoke: Yes Dental Care, Regularly: No Physical Activity Frequency: Does not Exercise Seatbelt Use: always Sunscreen Use: No Assistive Devices: Denture - Upper, Denture - Lower, Glasses and Wheelchair Allergies Allergies Allergy/AdvReac Type Severity Reaction Status Date / Time No Known Allergies Allergy Verified 11/01/22 13:03 Home Meds Home Medications Medication Instructions Recorded Confirmed naloxone 4 mg/actuation nasal 4 mg intranasal DIRECTED PRN 06/13/21 11/09/22 spray (Narcan) OVERSEDATION atorvastatin 40 mg tablet 40 mg PO DAILY 08/29/22 11/09/22 nicotine 21 mg/24 hr daily 1 patch transdermal Q24H 09/14/22 11/09/22 transdermal patch Previous Rx's Medication Instructions Recorded albuterol sulfate 90 mcg/actuation 2 inh inhalation DAILY #18 grams 05/24/22 aerosol inhaler (ProAir HFA) Advair Diskus 250 mcg-50 mcg/dose 1 inh inhalation BID #60 ea 05/25/22 powder for inhalation (fluticasone propion-salmeterol) famotidine 20 mg tablet 20 mg PO BID #90 tabs 07/13/22 pantoprazole 40 mg tablet,delayed 40 mg PO BID #90 tabs 08/10/22 release nicotine 14 mg/24 hr daily 1 patch transdermal Q24H 2 weeks 08/29/22 transdermal patch (Nicoderm CQ) #14 ea hydrocortisone 10 mg tablet See Rx Instructions .Route 09/05/22 .COMPLEX #45 tabs acetaminophen 325 mg tablet 650 mg PO Q6H PRN pain #30 tabs 10/04/22 apixaban 5 mg tablet 5 mg PO BID #60 tabs 10/04/22 docusate sodium 100 mg capsule 100 mg PO BID #60 caps 10/04/22 fludrocortisone 0.1 mg tablet 0.1 mg PO DAILY #30 tabs 10/04/22 guaifenesin 600 mg tablet, 1,200 mg PO Q12 #60 tabs 10/13/22 extended release 12 hr (Mucinex) furosemide 40 mg tablet 40 mg PO BID #60 tabs 10/23/22 metoprolol succinate 100 mg 100 mg PO DAILY #30 tabs 10/23/22 tablet,extended release 24 hr potassium chloride 20 mEq 40 meq PO BID #60 tabs 10/25/22 tablet,extended release(part/cryst) oxycodone 10 mg tablet 10 mg PO Q6H PRN pain #139 tabs 11/01/22 Results & Data (ED) Vital Signs Vital Signs - 24 hr 11/09/22 08:31 11/09/22 08:31 11/09/22 08:31 Temperature 36.8 C Temperature Source Oral Pulse Rate 99 H Pulse Rate [Apical] Pulse Rhythm Regular Pulse Rhythm [Apical] Pulse Strength Normal Pulse Strength [Apical] Respiratory Rate 18 Respiratory Effort / Characteristics Spontaneous Accessory Muscle Use Spontaneous Accessory Muscle Use Respiratory Depth Normal Normal Respiratory Pattern Regular Regular Blood Pressure 129/72 Blood Pressure [Right Arm] Blood Pressure Mean 91 Blood Pressure Mean [Right Arm] Blood Pressure Position Lying Pulse Oximetry 94 96 Oxygen Delivery Method BiPAP BiPAP Oxygen Flow Rate Fraction of Inspired Oxygen 21 30 SaO2/FiO2 Ratio 447 Sepsis Recent Fever Within 48 Hours No Sepsis New/Unexplained Change in Mental Status No Sepsis Action Taken by Nursing No Action Required Fraction of Inspired Oxygen - Titration 21 Pulse Oximetry Post Tiitration 93 11/09/22 08:38 11/09/22 09:17 11/09/22 11:00 Temperature Temperature Source Pulse Rate Pulse Rate [Apical] 94 H 88 Pulse Rhythm Pulse Rhythm [Apical] Regular Pulse Strength Pulse Strength [Apical] Normal Respiratory Rate 28 H 18 Respiratory Effort / Characteristics Spontaneous Respiratory Depth Normal Respiratory Pattern Regular Blood Pressure Blood Pressure [Right Arm] 153/83 H Blood Pressure Mean Blood Pressure Mean [Right Arm] 106 Blood Pressure Position Pulse Oximetry 93 93 96 Oxygen Delivery Method BiPAP BiPAP Nasal Cannula Oxygen Flow Rate 2 Fraction of Inspired Oxygen 21 21 SaO2/FiO2 Ratio 442 Sepsis Recent Fever Within 48 Hours Sepsis New/Unexplained Change in Mental Status Sepsis Action Taken by Nursing Fraction of Inspired Oxygen - Titration Pulse Oximetry Post Tiitration 11/09/22 11:00 Temperature Temperature Source Pulse Rate Pulse Rate [Apical] Pulse Rhythm Pulse Rhythm [Apical] Pulse Strength Pulse Strength [Apical] Respiratory Rate Respiratory Effort / Characteristics Respiratory Depth Respiratory Pattern Blood Pressure Blood Pressure [Right Arm] Blood Pressure Mean Blood Pressure Mean [Right Arm] Blood Pressure Position Pulse Oximetry 88 L Oxygen Delivery Method Room Air Oxygen Flow Rate 0 Fraction of Inspired Oxygen SaO2/FiO2 Ratio Sepsis Recent Fever Within 48 Hours Sepsis New/Unexplained Change in Mental Status Sepsis Action Taken by Nursing Fraction of Inspired Oxygen - Titration Pulse Oximetry Post Tiitration 98 Home Medications Current Medication List: was personally reviewed by me Laboratory Data Attestation: I reviewed the patient's lab results. 11/09/22 08:30 11/09/22 08:30 Lab Results 11/09/22 11/09/22 11/09/22 Range/Units 08:30 08:30 08:30 WBC 12.86 H (4.8-10.8) K/ul RBC 2.93 L (4.20-5.40) M/uL Hgb 8.7 L (12.0-16.0) g/dl Hct 29.0 L (37.0-47.0) % MCV 99.0 (80.0-100.0) fL MCH 29.7 (25.0-34.0) pg MCHC 30.0 L (32.0-36.0) g/dL RDW Std Deviation 52.5 H (36.4-46.3) fL RDW Coeff of Crow 14.4 (11.5-14.5) % Plt Count 420 H (130-400) K/uL MPV 10.2 (9.4-12.4) fL Immature Gran % (Auto) 0.7 % Neut % (Auto) 52.6 % Lymph % (Auto) 35.9 % [place] % (Auto) 10.0 % Eos % (Auto) 0.3 % Baso % (Auto) 0.5 % Neut # (Auto) 6.77 H (1.40-6.50) K/uL Lymph # (Auto) 4.62 H (1.2-3.4) K/uL [place] # (Auto) 1.28 H (0.11-0.59) K/uL Eos # (Auto) 0.04 (0-0.50) K/uL Baso # (Auto) 0.06 (0-0.2) K/uL Immature Gran # (Auto) 0.09 (0.01-0.20) K/uL PT 10.8 (9.0-12.0) Seconds INR 1.0 (0.9-1.1) APTT 23.6 (21.0-31.0) Seconds PTT Ratio 0.9 Sodium 144 (136-145) mmol/L Potassium 3.8 (3.5-5.1) mmol/L Chloride 108 H (98-107) mmol/L Carbon Dioxide 31 (21-32) mmol/L Anion Gap 5 (3-11) BUN 17 (6-23) mg/dl Creatinine 0.84 (0.6-1.2) mg/dl Est Cr Clr Drug Dosing 65.3 ml/min Est GFR ( Amer) 82.8 ml/min Est GFR (Non-Af Amer) 71.4 ml/min BUN/Creatinine Ratio 20.2 H (10-20) Glucose 154 H (70-99(Fasting)) mg/dl Calcium 8.7 (8.5-10.1) mg/dl Magnesium 2.1 (1.7-2.4) mg/dl Total Bilirubin 0.4 (0.2-1.0) mg/dl AST 12 L (13-39) U/L ALT 7 (7-52) U/L Alkaline Phosphatase 72 (34-104) U/L Troponin I High Sens 28.6 H (0-14) pg/ml Total Protein 6.0 (6.0-8.3) gm/dl Albumin 3.2 L (3.4-5.0) gm/dl Globulin 2.8 (2.5-4.0) gm/dl Albumin/Globulin Ratio 1.1 (0.9-2) Adenovirus (PCR) (NotDetected) B. pertussis DNA (PCR) (NotDetected) B.parapertussis DNA PCR (NotDetected) C. pneumoniae DNA (PCR) (NotDetected) Coronavirus OC43 (PCR) (NotDetected) Coronavirus HKU1 (PCR) (NotDetected) Coronavirus 229E (PCR) (NotDetected) SARS-CoV-2 (PCR) (NotDetected) Coronavirus NL63 (PCR) (NotDetected) Human Metapneumovir PCR (NotDetected) Influenza Type A (PCR) (NotDetected) Influenza Type B (PCR) (NotDetected) M. pneumoniae (PCR) (NotDetected) Parainfluenza 1 (PCR) (NotDetected) Parainfluenza 2 (PCR) (NotDetected) Parainfluenza 3 (PCR) (NotDetected) Parainfluenza 4 (PCR) (NotDetected) RSV (PCR) (NotDetected) Entero/Rhino (PCR) (NotDetected) 11/09/22 11/09/22 Range/Units 09:46 11:45 WBC (4.8-10.8) K/ul RBC (4.20-5.40) M/uL Hgb (12.0-16.0) g/dl Hct (37.0-47.0) % MCV (80.0-100.0) fL MCH (25.0-34.0) pg MCHC (32.0-36.0) g/dL RDW Std Deviation (36.4-46.3) fL RDW Coeff of Crow (11.5-14.5) % Plt Count (130-400) K/uL MPV (9.4-12.4) fL Immature Gran % (Auto) % Neut % (Auto) % Lymph % (Auto) % [place] % (Auto) % Eos % (Auto) % Baso % (Auto) % Neut # (Auto) (1.40-6.50) K/uL Lymph # (Auto) (1.2-3.4) K/uL [place] # (Auto) (0.11-0.59) K/uL Eos # (Auto) (0-0.50) K/uL Baso # (Auto) (0-0.2) K/uL Immature Gran # (Auto) (0.01-0.20) K/uL PT (9.0-12.0) Seconds INR (0.9-1.1) APTT (21.0-31.0) Seconds PTT Ratio Sodium (136-145) mmol/L Potassium (3.5-5.1) mmol/L Chloride (98-107) mmol/L Carbon Dioxide (21-32) mmol/L Anion Gap (3-11) BUN (6-23) mg/dl Creatinine (0.6-1.2) mg/dl Est Cr Clr Drug Dosing ml/min Est GFR ( Amer) ml/min Est GFR (Non-Af Amer) ml/min BUN/Creatinine Ratio (10-20) Glucose (70-99(Fasting)) mg/dl Calcium (8.5-10.1) mg/dl Magnesium (1.7-2.4) mg/dl Total Bilirubin (0.2-1.0) mg/dl AST (13-39) U/L ALT (7-52) U/L Alkaline Phosphatase (34-104) U/L Troponin I High Sens 28.5 H (0-14) pg/ml Total Protein (6.0-8.3) gm/dl Albumin (3.4-5.0) gm/dl Globulin (2.5-4.0) gm/dl Albumin/Globulin Ratio (0.9-2) Adenovirus (PCR) Not Detected (NotDetected) B. pertussis DNA (PCR) Not Detected (NotDetected) B.parapertussis DNA PCR Not Detected (NotDetected) C. pneumoniae DNA (PCR) Not Detected (NotDetected) Coronavirus OC43 (PCR) Not Detected (NotDetected) Coronavirus HKU1 (PCR) Not Detected (NotDetected) Coronavirus 229E (PCR) Not Detected (NotDetected) SARS-CoV-2 (PCR) DETECTED A* (NotDetected) Coronavirus NL63 (PCR) Not Detected (NotDetected) Human Metapneumovir PCR Not Detected (NotDetected) Influenza Type A (PCR) Not Detected (NotDetected) Influenza Type B (PCR) Not Detected (NotDetected) M. pneumoniae (PCR) Not Detected (NotDetected) Parainfluenza 1 (PCR) Not Detected (NotDetected) Parainfluenza 2 (PCR) Not Detected (NotDetected) Parainfluenza 3 (PCR) Not Detected (NotDetected) Parainfluenza 4 (PCR) Not Detected (NotDetected) RSV (PCR) Not Detected (NotDetected) Entero/Rhino (PCR) Not Detected (NotDetected) Administered Medications Albuterol (Albut/Ipratrop 3mg/0.5mg Neb 3 Ml Vial) 3 ml NEB QIDR [facility]; Protocol Stop: 12/09/22 15:24 Last Admin: 11/10/22 07:01 Dose: 3 ml Documented By: Admin: 11/09/22 19:19 Dose: 3 ml Documented By: Admin: 11/09/22 15:39 Dose: 3 ml Documented By: CHRISTIN Apixaban (Apixaban 5 Mg Tablet) 5 mg PO BID [facility] Stop: 12/09/22 20:59 Last Admin: 11/09/22 20:56 Dose: 5 mg Documented By: ELDON Atorvastatin Calcium (Atorvastatin 40 Mg Tab) 40 mg PO DAILY [facility] Stop: 12/10/22 08:59 Last Admin: 11/10/22 08:20 Dose: 40 mg Documented By: RA Docusate Sodium (Docusate Sodium 100 Mg Cap) 100 mg PO BID [facility] Stop: 12/09/22 20:59 Last Admin: 11/10/22 08:20 Dose: 100 mg Documented By: Admin: 11/09/22 20:56 Dose: 100 mg Documented By: ELDON Doxycycline Hyclate (Doxycycline Hyclate 100 Mg Cap) 100 mg PO BID [facility] Stop: 11/16/22 20:59 Last Admin: 11/10/22 08:21 Dose: 100 mg Documented By: Admin: 11/09/22 20:56 Dose: 100 mg Documented By: ELDNO Famotidine (Famotidine 20 Mg Tab) 20 mg PO BID [facility] Stop: 12/09/22 20:59 Last Admin: 11/09/22 20:56 Dose: 20 mg Documented By: ELDON Fludrocortisone Acetate (Fludrocortisone Acetate 0.1 Mg Tab) 0.1 mg PO DAILY [facility] Stop: 12/10/22 08:59 Last Admin: 11/10/22 08:20 Dose: 0.1 mg Documented By: BRII Fluticasone/Vilanterol (Fluticasone/Vilanterol 200/25mcg 14 Puffs/Inhaler) 1 puffs INH DAILY [facility] Stop: 12/10/22 08:59 Last Admin: 11/10/22 08:22 Dose: 1 puffs Documented By: RA Furosemide (Furosemide 40 Mg Tab) 40 mg PO BID17 [facility] Stop: 12/09/22 16:59 Last Admin: 11/10/22 08:21 Dose: 40 mg Documented By: Admin: 11/09/22 16:47 Dose: 40 mg Documented By: ELDON Guaifenesin (Guaifenesin 600 Mg Tabcr) 1,200 mg PO Q12 JOHANNA Stop: 12/09/22 20:59 Last Admin: 11/09/22 20:57 Dose: 1,200 mg Documented By: ELDON Methylprednisolone 60 mg/ (Syringe) 0.96 mls @ 1.5 mls/min IV DAILY [facility] Stop: 12/10/22 08:59 Last Admin: 11/10/22 08:19 Dose: 1.5 mls/min Documented By: RA Insulin Aspart (Insulin Aspart Per Unit) 0 units SC ACHS [facility] Stop: 12/09/22 20:59 Last Admin: 11/09/22 21:28 Dose: Not Given Documented By: ELDON Co-signed By: DONALD Insulin Glargine (Lantus Per Unit Charge) 5 units SQ BID [facility] Stop: 12/09/22 20:59 Last Admin: 11/09/22 21:29 Dose: Not Given Documented By: ELDON Metoprolol Succinate (Metoprolol Succ 50mg Ext Rel Tab) 100 mg PO DAILY [facility] Stop: 12/10/22 08:59 Last Admin: 11/10/22 08:20 Dose: 100 mg Documented By: RA Miscellaneous (Remove Nicoderm Patch) 1 each N/A DAILY@4079 [facility] Stop: 12/09/22 15:58 Last Admin: 11/09/22 18:09 Dose: Not Given Documented By: ELDON Nicotine (Nicotine 21 Mg/24 Hr Tdsy) 21 mg TD Q24H [facility] Stop: 12/09/22 15:59 Last Admin: 11/09/22 16:47 Dose: 21 mg Documented By: ELDON Oxycodone HCl (Oxycodone Hcl Ir 5 Mg Tab (Immediate Release)) 10 mg PO Q6H PRN PRN Reason: pain Stop: 11/23/22 15:24 Last Admin: 11/09/22 16:52 Dose: 10 mg Documented By: ELDON Pantoprazole Sodium (Pantoprazole 40 Mg Tab) 40 mg PO BID [facility] Stop: 12/09/22 20:59 Last Admin: 11/10/22 08:20 Dose: 40 mg Documented By: Admin: 11/09/22 20:57 Dose: 40 mg Documented By: ELDON Potassium Chloride (Potassium Chloride Crtab 20 Meq Tabcr) 40 meq PO BID [facility] Stop: 12/09/22 20:59 Last Admin: 11/09/22 20:57 Dose: 40 meq Documented By: ELDON Discontinued Medications Albuterol (Albut/Ipratrop 3mg/0.5mg Neb 3 Ml Vial) 3 ml INH NOW STA Stop: 11/09/22 08:39 Last Admin: 11/09/22 09:17 Dose: 3 ml Documented By: LUCRECIA Magnesium Sulfate/Dextrose (Magnesium Sulfate / D5w) 1 gm in 100 mls @ 100 mls/hr IV NOW STA Stop: 11/09/22 09:38 Last Infusion: 11/09/22 10:31 Dose: 0 mls/hr Documented By: Admin: 11/09/22 09:19 Dose: 100 mls/hr Documented By: JOSIE Metoprolol Succinate (Metoprolol Succ 50mg Ext Rel Tab) 100 mg PO NOW STA Stop: 11/09/22 13:17 Last Admin: 11/09/22 13:54 Dose: 100 mg Documented By: JOSIE Imaging Data Radiologist's Impression: Chest X-Ray 11/09/22 08:38 XR chest 1V portable CLINICAL HISTORY: Dyspnea TECHNIQUE: Single frontal radiograph of the chest was obtained. Comparison: Comparison is made to chest radiograph 11/10/2021 FINDINGS: Interval removal of left PICC. The cardiomediastinal silhouette is stable. The lungs are clear. No evidence of pleural effusion or pneumothorax. IMPRESSION: No acute chest disease. ACT 112: Negative or not required by law. Electronically signed by: Simba Mcclain M.D. 11/09/2022 8:57 AM Discharge Plan Visit Data Chief Complaint: Shortness of Breath/Dyspnea Stated Complaint: RESP. DIFF. ED Provider: Kavin Ordonez Discharge Problem: Acute hypoxemic respiratory failure, Acute exacerbation of chronic obstructive pulmonary disease, Continuous tobacco abuse Patient Disposition: Admitted As Inpatient Discharge Instructions Interventions: ED Discharge Assessment Last Done: 11/09/22 15:26
[2022-11-09] MEDS ORDERED: ALBUT/IPRATROP 3MG/0.5MG NEB 3 ML VIAL INH STA (08:38)
[2022-11-09] MEDS ORDERED: MAGNESIUM SULFATE / D5W 1 GM/100 ML BAG IV STA (08:39)
[2022-11-09 09:16] LABS: BUN Creatinine Ratio 20.2 (10-20); Calcium 8.7 mg/dl (8.5-10.1); Creatinine Clr Calc Pharmacy 65.3 ml/min; Est GFR (African American) 82.8 ml/min; Est GFR (Non-African American) 71.4 ml/min; Potassium 3.8 mmol/L (3.5-5.1)
--- NOTE | 2022-11-09 09:16 | Electrocardiogram Report ---
Test Reason : Blood Pressure : / mmHG Vent. Rate : 099 BPM Atrial Rate : 099 BPM P-R Int : 132 ms QRS Dur : 108 ms QT Int : 400 ms P-R-T Axes : -09 064 005 degrees QTc Int : 513 ms Sinus rhythm with frequent Premature ventricular complexes Right bundle branch block Abnormal ECG When compared with ECG of 08-OCT-2022 11:11, Sinus rhythm has replaced Atrial fibrillation Right bundle branch block is now Present Criteria for Inferior-posterior infarct are no longer Present Confirmed by Edwin Miranda ([id number]) on 11/09/2022 9:15:16 AM Referred By: Confirmed By:Mickey Miranda
[2022-11-09 09:22] LABS: Troponin I High Sensitivity 28.6 pg/ml (0-14)
[2022-11-09 09:29] LABS: Hemoglobin 8.7 g/dl (12.0-16.0); Mean Corpuscular Hemoglobin 29.7 pg (25.0-34.0); Mean Platelet Volume 10.2 fL (9.4-12.4); Platelet Count 420 K/uL (130-400); RDW Coefficient of Variation 14.4 % (11.5-14.5); RDW Standard Deviation 52.5 fL (36.4-46.3); Red Blood Count 2.93 M/uL (4.20-5.40); White Blood Count 12.86 K/ul (4.8-10.8)
[2022-11-09 09:32] LABS: Partial Thromboplastin Ratio 0.9; Partial Thromboplastin Time 23.6 Seconds (21.0-31.0); Prothrombin Time 10.8 Seconds (9.0-12.0)
--- NOTE | 2022-11-09 10:00 | XRay Report ---
XR chest 1V portable CLINICAL HISTORY: Dyspnea TECHNIQUE: Single frontal radiograph of the chest was obtained. Comparison: Comparison is made to chest radiograph 11/10/2021 FINDINGS: Interval removal of left PICC. The cardiomediastinal silhouette is stable. The lungs are clear. No ev idence of pleural effusion or pneumothorax. IMPRESSION: No acute chest disease. ACT 112: Negative or not required by law. Electronically signed by: Simba Mcclain M.D. 11/09/2022 8:57 AM
[2022-11-09 11:26] LABS: Adenovirus PCR Not Detected (NotDetected); Bordetella parapertussis PCR Not Detected (NotDetected); Bordetella pertussis PCR Not Detected (NotDetected); Chlamydia pneumoniae PCR Not Detected (NotDetected); Coronavirus 229E PCR Not Detected (NotDetected); Coronavirus HKU1 PCR Not Detected (NotDetected); Coronavirus NL63 PCR Not Detected (NotDetected); Coronavirus OC43PCR Not Detected (NotDetected); Human Metapneumovirus PCR Not Detected (NotDetected); Influenza A PCR Not Detected (NotDetected); Influenza B PCR Not Detected (NotDetected); Mycoplasma pneumoniae PCR Not Detected (NotDetected); Parainfluenza Virus 1 PCR Not Detected (NotDetected); Parainfluenza Virus 2 PCR Not Detected (NotDetected); Parainfluenza Virus 3 PCR Not Detected (NotDetected); Parainfluenza Virus 4 PCR Not Detected (NotDetected); Respiratory Syncytial VirusPCR Not Detected (NotDetected); Rhinovirus/Enterovirus PCR Not Detected (NotDetected)
[2022-11-09 11:36] LABS: Albumin Globulin Ratio 1.1 (0.9-2); Albumin Level 3.2 gm/dl (3.4-5.0); Bilirubin,Total 0.4 mg/dl (0.2-1.0); Globulin 2.8 gm/dl (2.5-4.0); Magnesium 2.1 mg/dl (1.7-2.4)
[2022-11-09 11:41] LABS: Coronavirus CoV-2 (COVID19)PCR DETECTED (NotDetected)
--- NOTE | 2022-11-09 12:38 | History & Physical Report ---
Date of Service November 09, 2022 Assessment & Plan (1) COPD exacerbation: Plan: -Admit to med/tele -The patient is currently afebrile, hemodynamically stable, and now stable on RA -Patient experienced increased SOB with respiratory distress noted by EMS on arrival, initially placed on Bipap in the ED -The patient tested positive for covid but this is likely due to her previously known infection and admission in September -The rest of her Biofire was negative -Was given 125 mg Solu-Medrol by EMS, will continue with 60 mg IV tomorrow then can transition back to PO if she is stable. Will hold her home Hydrocortisone for now -Will start Doxy 100 mg PO BID instead of Azithromycin due to her QTc being 513 -Continue home breathing treatments -Incentive spirometry, flutter therapy, PRN DuoNebs, prn Robitussin -Monitor on tele and pulse oximetry -Continue to stress the importance of smoking cessation in order to avoid recurrent exacerbations -AM CBC, BMP, and Mag (2) Paroxysmal atrial fibrillation: Plan: -Continue Eliquis and metoprolol -Patient has a temporary loop recorder in place, for further evaluation to see if her known arrhythmias are related to afib vs multifocal atrial tachycardia (3) Elevated troponin: Plan: -Initial trop elevated at 28, repeat is a 24.6, patient is asymptomatic after receiving initial treatments and her ECG is without acute ST segment or T-wave changes -Likely due to demand from her respiratory dsitress this am -Monitor on tele (4) Tobacco abuse: Plan: -Nicotine patch ordered -Continue to stress smoking cessation (5) (HFpEF) heart failure with preserved ejection fraction: Plan: -Patient now with normal LVEF as of 10/08/22 -Recently had her dose of lasix increased to 40 mg PO BID by cardiology, examines euvolemic at this time -Continue lasix (6) Adrenal insufficiency: Plan: -Stable -Hold home hydrocortisone while receiving steroids for COPD exacerbation (7) COVID-19: Plan: -Found to be positive again today, likely due to recent infection in September, no isolation precautions needed at this time (8) Type 2 diabetes mellitus: Plan: -Last A1c in August was 7.3 -Monitor BSG ACHS, goal is 110-160 while on steroids -Will start with 5 units lantus BID, correction factor of 50 and carb ratio of 15 -DM II diet -Adjust regimen as needed (9) Hyperlipidemia: Plan: -Continue (10) GERD (gastroesophageal reflux disease): Plan: -Continue pantoprazole and famotidine Plan The patient was discussed with Dr. Donald at the time of the admission History of Present Illness Chief Complaint: SOB Primary Care Provider: Edwin Valdez MD Radha is a 67-year-old female with a history significant for cardiomyopathy, HFpEF (LVEF of 55-60% as of 10/08/22), multi focal atrial tachycardia vs atrial fibrillation (currently on Eliquis), COPD, adrenal insufficiency (on chronic steroid therapy), carotid artery stenosis s/p left CEA (03/09/20), CVA (02/11/20), hypertension, dyslipidemia, pulmonary embolus (provoked postop hip surgery 05/2021), and CKD who presented to the [facility] Ed on 11/09/22 with a chief complaint of SOB. Per chart review, the patient was recently [place] [facility] [place]16 enterococcus faecalis amp sensitive bacteremia initially suspected septic arthritis vs UTI ultimately tx & [place] [facility] [place]02 on apixaban 5 BID and ampicillin 2g Q4h. 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 Anemia 2/2 blood loss at that time. Ampicillin to be continued until 11/07/22. She was recently admitted to [facility] from 10/08-10-13 for Acute respiratory failure with hypoxia due to Covid 19 pneumonia and COPD exacerbation. She was initially requiring CPAP and supplemental oxygen on admission. She was treated with Dexamethasone and Remdesivir and was successfully weaned off supplemental O2 prior to discharge. Of note, the patient was started on dexamethasone 6 mg IV BID while holding her home hydrocortisone. She was given discharge instructions for weaning herself off of the dexamethasone and restarting her hydrocortisone. Her dose of Lasix was increased from 40 mg PO daily to 60 mg PO daily due to being volume overloaded on presentation. Her LVEF was found to be stable compared to her previous showing a LVEF of 40%. She was recently seen in [place] [facility] [place] by Dr. Sinclair on 10/23/22. Per his clinic note, he increased her dose of lasix to 40 mg PO BID and increased her dose of metoprolol succinate to 100 mg PO daily. Per the ED report today, the patient called EMS around 5 am due to worsening SOB. When EMS arrived they noted her to be tachypneic with respirations in the 40s. She was placed on CPAP, given 2 DuoNeb treatments, and also given 125 mg of Solu-Medrol. In the ED today the patient was found to be afebrile, hemodynamically stable, and stable on Bipap placed upon ED arrival. Labs were remarkable for a leukocytosis of 12.86, stable Hgb at 8.7 (was 8.5 on 10/12/22), platelet count of 420, stable cr of 0.84, stable electrolytes besides a chloride of 108, initial high sensitivity trop of 28.6, LFTs WNl, Covid 19 positive otherwise she was found to have a negative full respiratory biofire. Chest xray was read as Interval removal of left PICC. The cardio mediastinal silhouette is stable. The lungs are clear. No evidence of pleural effusion or pneumothorax.. Prior to admission the patient was given a DuoNeb treatment and 1gm IV magnesium and was successfully wean down to 2L NC. At the time of the exam the patient was resting comfortably in bed in no acute distress with her sitting bedside. They state that the patient developed significant SOB and increased cough this am. The patient used her nebulizer treatments without resolution of her symptoms so they called EMS. The patient states that her symptoms are much improved compared to arrival to the ED, she remained stable on RA during my exam. She denies recent fevers or chills, chest pain, changes in sputum production or color, abdominal pain, nausea, vomiting, diarrhea, dysuria, hematuria, and recent trauma. When asked, the patient admits that she started to smoke again and has been smoking appro ximately 1/2 PPD for the past week. I stressed the importance of cessation as it will continue to make her COPD and respiratory status worse. She did not take any of her am meds prior to arrival to the ED. The patient is a full code and wishes for her to make medical decisions if she cannot herself. Please refer to Dr. Donald's attetsation for any changes to the treatment plan Allergies Allergy/AdvReac Type Severity Reaction Status Date / Time No Known Allergies Allergy Verified 11/01/22 13:03 Home Medications Medication Instructions Recorded Confirmed Type naloxone 4 mg/actuation nasal 4 mg intranasal DIRECTED PRN 06/13/21 11/09/22 History spray (Narcan) OVERSEDATION albuterol sulfate 90 mcg/actuation 2 inh inhalation DAILY #18 grams 05/24/22 11/09/22 Rx aerosol inhaler (ProAir HFA) Advair Diskus 250 mcg-50 mcg/dose 1 inh inhalation BID #60 ea 05/25/22 11/09/22 Rx powder for inhalation (fluticasone propion-salmeterol) famotidine 20 mg tablet 20 mg PO BID #90 tabs 07/13/22 11/09/22 Rx pantoprazole 40 mg tablet,delayed 40 mg PO BID #90 tabs 08/10/22 11/09/22 Rx release atorvastatin 40 mg tablet 40 mg PO DAILY 08/29/22 11/09/22 History nicotine 14 mg/24 hr daily 1 patch transdermal Q24H 2 weeks 08/29/22 11/09/22 Rx transdermal patch (Nicoderm CQ) #14 ea hydrocortisone 10 mg tablet See Rx Instructions .Route 09/05/22 11/09/22 Rx .COMPLEX #45 tabs nicotine 21 mg/24 hr daily 1 patch transdermal Q24H 09/14/22 11/09/22 History transdermal patch acetaminophen 325 mg tablet 650 mg PO Q6H PRN pain #30 tabs 10/04/22 11/09/22 Rx apixaban 5 mg tablet 5 mg PO BID #60 tabs 10/04/22 11/09/22 Rx docusate sodium 100 mg capsule 100 mg PO BID #60 caps 10/04/22 11/09/22 Rx fludrocortisone 0.1 mg tablet 0.1 mg PO DAILY #30 tabs 10/04/22 11/09/22 Rx guaifenesin 600 mg tablet, 1,200 mg PO Q12 #60 tabs 10/13/22 11/09/22 Rx extended release 12 hr (Mucinex) furosemide 40 mg tablet 40 mg PO BID #60 tabs 10/23/22 11/09/22 Rx metoprolol succinate 100 mg 100 mg PO DAILY #30 tabs 10/23/22 11/09/22 Rx tablet,extended release 24 hr potassium chloride 20 mEq 40 meq PO BID #60 tabs 10/25/22 11/09/22 Rx tablet,extended release(part/cryst) oxycodone 10 mg tablet 10 mg PO Q6H PRN pain #139 tabs 11/01/22 11/09/22 Rx Past Med/Surg History Medical History Acute renal failure BEV (acute kidney injury) Asthma PT STATES TAKES RESCUE INHALER DAILY Cardiomyopathy Carotid stenosis, left S/P L CEA (02/18/20) (Prior to CEA patient had 80% LICA stenosis ) Cerebral aneurysm Per records, pt unaware No significant aneurysm noted with head CTA and brain MRI from 01/2020 Chronic heart failure with preserved ejection fraction CKD (chronic kidney disease) stage III CVA (cerebral vascular accident) CVA 02/11/20- no residual effects, follows with [facility], patient was on plavix until ~1 month after left CEA surgery, now on ASA 81mg Depression with anxiety GERD (gastroesophageal reflux disease) Heart failure with mid-range ejection fraction History of Meniere's disease History of prediabetes HGBA1C 6.1% on 01/28/21 History of revision of total replacement of right hip joint 03/25/21 - [facility]; explantation old hardware, wound vac placement. History of septic shock 03/2021 - due to septic R hip; 04/2021 - again due to septic R hip - hospitalized [facility] each admission. Pseudomonas, proteus, oj albicans. Hyperlipidemia Hypertension Multifocal atrial tachycardia Osteoarthritis Paroxysmal atrial fibrillation Pulmonary emboli Pulmonary hypertension RBBB SOB (shortness of breath) Tobacco abuse Tobacco use disorder Surgical History H/O carotid endarterectomy Left CEA: 02/18/20: Grade view 1 with head lift, MAC#3, ETT 7.0 at [facility] History of appendectomy History of bilateral tubal ligation History of brain surgery 5 years ago (Meniere's treatment/[facility]) History of History of cataract surgery R/L History of section x1 History of cholecystectomy History of cholecystectomy History of colonoscopy History of esophagogastroduodenoscopy (EGD) History of incision and drainage right hip - multiple I/D's, 03/2021-04/2021; [facility]. History of tonsillectomy History of tooth extraction History of total hip arthroplasty RT> with repair S/P carotid endarterectomy Status post revision of total hip replacement (~01/2021) Family History Mother Diabetes Family history of diabetes mellitus Sister Diabetes Family history of diabetes mellitus Arterial thrombosis Amputation of leg Father Heart disease Lung disease Other No family history of adverse response to anesthesia Denies family history of Ovarian cancer Prostate cancer Myocardial infarction Breast cancer Colorectal cancer Social History Smoking Status: Current every day smoker Tobacco Type: Cigarettes Age Started Using Tobacco: 17; Age Quit Using Tobacco: 65; packs per day: 1; Cigarettes Per Day: 10; Second Hand Exposure: No; Hx Alcohol Use: No Hx Substance Use: Yes Last Used Substance: Unknown Last Used Substance Other:: 08/31/2021 Substance Use Type Other:: daily use Preferred Language: [place] Communication Ability: Effective Visual Impairment: No Limitations Hearing Ability: Normal Cardiothoracic Icu Rn Required: No Beliefs That Will Affect Care: None marital status: Unknown Current Living Situation: Alone Current Living Situation Comment: handicap appartment with caregivers current occupational status: retired 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 How many Children do You have: 2 How many Children do You have Comment: 1 child from suicide Other Information That Helps Us Care for You: No Feels Safe at Home: Yes Safety Concerns: Feels Safe At This Time Childhood Exposure to Second-Hand Smoke: Yes Dental Care, Regularly: No Physical Activity Frequency: Does not Exercise Seatbelt Use: always Sunscreen Use: No Assistive Devices: Denture - Upper, Denture - Lower, Glasses and Wheelchair Review of Systems Review of Systems: Denies current fever, chills, headache, changes in vision, hearing, taste, and smell, chest pain, abdominal pain, nausea, vomiting, diarrhe a, hematemesis, melena, dysuria, hematuria, and recent falls. All systems have been reviewed and are otherwise negative. Physical Exam Physical Exam: Physical Exam: General: In no acute distress, stated age, chronically ill-appearing but non- toxic appearing HEENT: Normocephalic, atraumatic, no scleral icterus, pupils around round, symmetrical, and reactive to light, moist mucus membranes, trachea midline, no thyromegaly Chest/Pulm: patient with temporary loop recorder in place, No respiratory distress, symmetrical chest expansion, expiratory wheezing noted throughout Cardiac: irregular rate and rhythm, no murmurs noted Abdomen: Negative for ascites and bruising, normoactive bowel sounds, soft, non-tender to palpation throughout Musculoskeletal: Patient with intact ROM of the BL UE's, patient is S/P right hip replacement hardware removal with a shortened and externally rotated RLE, LLE with intact ROM Extremities: Radial, dorsalis pedis, and posterior tibial pulses are intact and symmetrical, no edema noted in the BL LE's Skin: Patient with old skin abrasions on the BL shins that are without signs of infection Neuro: Alert and oriented to person, place, month, year, and president, no focal defects, CN II-XII tested and intact, finger to nose test negative, no tremors noted Psych: No acute distress, calm and cooperative during the exam Results & Data Results & Data ([facility]) Vital Signs (Past 12 Hours) Vital Signs Temp Pulse Pulse Resp BP BP Pulse Ox 11/09/22 11:00 88 L 11/09/22 11:00 88 18 153/83 H 96 11/09/22 09:17 94 H 28 H 93 11/09/22 08:38 93 11/09/22 08:31 96 11/09/22 08:31 36.8 C 99 H 18 129/72 94 11/09/22 08:24 98 H 28 H 98 O2 Del Method O2 Flow Rate FiO2 11/09/22 11:00 Room Air 0 11/09/22 11:00 Nasal Cannula 2 11/09/22 09:17 BiPAP 21 11/09/22 08:38 BiPAP 21 11/09/22 08:31 BiPAP 30 11/09/22 08:31 BiPAP 21 11/09/22 08:24 30 Laboratory Results Abnormal lab results 11/09/22 11/09/22 11/09/22 Range/Units 08:30 08:30 09:46 WBC 12.86 H (4.8-10.8) K/ul RBC 2.93 L (4.20-5.40) M/uL Hgb 8.7 L (12.0-16.0) g/dl Hct 29.0 L (37.0-47.0) % MCHC 30.0 L (32.0-36.0) g/dL RDW Std Deviation 52.5 H (36.4-46.3) fL Plt Count 420 H (130-400) K/uL Neut # (Auto) 6.77 H (1.40-6.50) K/uL Lymph # (Auto) 4.62 H (1.2-3.4) K/uL Trigg # (Auto) 1.28 H (0.11-0.59) K/uL ABG pO2 (80-95) mmHg ABG HCO3 (19-24) mmol/L ABG O2 Saturation (90-95) % ABG Base Excess (-9-1.8) mEq/L Chloride 108 H (98-107) mmol/L BUN/Creatinine Ratio 20.2 H (10-20) Glucose 154 H (70-99(Fasting)) mg/dl AST 12 L (13-39) U/L Troponin I High Sens 28.6 H (0-14) pg/ml Albumin 3.2 L (3.4-5.0) gm/dl SARS-CoV-2 (PCR) DETECTED A* (NotDetected) 11/09/22 11/09/22 11/09/22 Range/Units 11:45 13:37 14:09 WBC (4.8-10.8) K/ul RBC (4.20-5.40) M/uL Hgb (12.0-16.0) g/dl Hct (37.0-47.0) % MCHC (32.0-36.0) g/dL RDW Std Deviation (36.4-46.3) fL Plt Count (130-400) K/uL Neut # (Auto) (1.40-6.50) K/uL Lymph # (Auto) (1.2-3.4) K/uL Trigg # (Auto) (0.11-0.59) K/uL ABG pO2 104 H (80-95) mmHg ABG HCO3 26 H (19-24) mmol/L ABG O2 Saturation 99.2 H (90-95) % ABG Base Excess 2.4 H (-9-1.8) mEq/L Chloride (98-107) mmol/L BUN/Creatinine Ratio (10-20) Glucose (70-99(Fasting)) mg/dl AST (13-39) U/L Troponin I High Sens 28.5 H 24.6 H (0-14) pg/ml Albumin (3.4-5.0) gm/dl SARS-CoV-2 (PCR) (NotDetected) Diagnostic Findings Chest X-Ray 11/09/22 08:38 XR chest 1V portable CLINICAL HISTORY: Dyspnea TECHNIQUE: Single frontal radiograph of the chest was obtained. Comparison: Comparison is made to chest radiograph 11/10/2021 FINDINGS: Interval removal of left PICC. The cardiomediastinal silhouette is stable. The lungs are clear. No evidence of pleural effusion or pneumothorax. IMPRESSION: No acute chest disease. ACT 112: Negative or not required by law. Electronically signed by: Simba Mcclain M.D. 11/09/2022 8:57 AM ECG Additional Comments: Sinus rhythm with frequent Premature ventricular complexes Right bundle branch block Abnormal ECG When compared with ECG of 08-OCT-2022 11:11, Sinus rhythm has replaced Atrial fibrillation Right bundle branch block is now Present Criteria for Inferior-posterior infarct are no longer Present Confirmed by Edwin Miranda ([id number]) on 11/09/2022 9:15:16 AM Code Status & VTE Plan Code Status Full code VTE Prophylaxis Plan VTE Prophylaxis will be ordered: Yes Supervising Physician Co-Signing Physician Notes I personally saw and examined the patient. I verified all garcia points and agree with Scout Mina PA-C with the following exceptions and/or additions: 67 year old female with COPD presents with 2 day history of worsening shortness of breath and cough. She managed 8 days without smoking after her last COPD exac erbation in September. Smoking cessation discussed in detail and she is much more determined to quit this time. Significant improvement from admission when seen with steroids and duonebs. Now off BiPAP. No CO2 retention on ABG. O/E HS RRR, no murmurs, Chest with mild expiratory wheeze, no crackles A/P COPD exacerbation - duonebs, solu-medrol 60mg IV daily, can be switched to prednisone on discharge, doxycycline, flu/RSV/COVID negative Hypoxia - aim O2 sats > 88% PG Care Time/CCT Total # of Minutes Spent Total Time Spent with Patient: Total time spent is greater than 50% in coordination of care (as documented) at patient's floor/unit and/or counseling patient: Coding [place] [address] INT INP/OBS CARE 2/55MIN Patient Type Established Medical Decision Making High Complexity Diagnoses COPD exacerbation J44.1 Paroxysmal atrial fibrillation I48.0 Elevated troponin R77.8 Tobacco abuse Z72.0 (HFpEF) heart failure with preserved ejection fraction I50.30 Adrenal insufficiency E27.40 COVID-19 U07.1 Type 2 diabetes mellitus E11.9 Hyperlipidemia E78.5 GERD (gastroesophageal reflux disease) K21.9
[2022-11-09 12:47] LABS: Basophils # (auto) 0.06 K/uL (0-0.2); Basophils % (auto) 0.5 %; Eosinophils # (auto) 0.04 K/uL (0-0.50); Eosinophils % (auto) 0.3 %; Immature Granulocytes # (auto) 0.09 K/uL (0.01-0.20); Immature Granulocytes % (auto) 0.7 %; Lymphocytes # (auto) 4.62 K/uL (1.2-3.4); Lymphocytes % (auto) 35.9 %; Monocytes # (auto) 1.28 K/uL (0.11-0.59); Neutrophils # (auto) 6.77 K/uL (1.40-6.50); Neutrophils % (auto) 52.6 %
[2022-11-09] MEDS ORDERED: METOPROLOL SUCC 50MG EXT REL TAB PO STA (13:16)
[2022-11-09 14:26] LABS: Base Excess ABG 2.4 mEq/L (-9-1.8); HCO3 ABG 26 mmol/L (19-24); Oxygen Saturation ABG 99.2 % (90-95); PCO2 ABG 38 mmHg (35-46); PO2 ABG 104 mmHg (80-95); pH ABG 7.45 (7.35-7.45)
[2022-11-09 14:27] LABS: Allen Test Pos (Pos)
[2022-11-09] MEDS ORDERED: guaiFENesin SUGAR FREE 200 MG/10 ML UDC PO PRN (15:25)
[2022-11-09] MEDS: ALBUT/IPRATROP 3MG/0.5MG NEB 3 ML VIAL NEB SCH ×2 (15:39→19:19)
[2022-11-09] MEDS: NICOTINE 21 MG/24 HR TDSY TD SCH (16:47)
[2022-11-09] MEDS: FUROSEMIDE 40 MG TAB PO SCH (16:47)
[2022-11-09] MEDS: oxyCODONE HCL IR 5 MG TAB (IMMEDIATE RELEASE) PO PRN (16:52)
[2022-11-09] MEDS: DOXYCYCLINE HYCLATE 100 MG CAP PO SCH (20:56)
[2022-11-09] MEDS: APIXABAN 5 MG TABLET PO SCH (20:56)
[2022-11-09] MEDS: FAMOTIDINE 20 MG TAB PO SCH (20:56)
[2022-11-09] MEDS: DOCUSATE SODIUM 100 MG CAP PO SCH (20:56)
[2022-11-09] MEDS ORDERED: GLUCOSE 40% GEL 15 GM TUBE PO PRN (20:57)
[2022-11-09] MEDS ORDERED: CARBOHYDRATES FOR HYPOGLYCEMIA PO PRN (20:57)
[2022-11-09] MEDS ORDERED: GLUCAGON FOR INJ 1 MG VIAL SQ PRN (20:57)
[2022-11-09] MEDS ORDERED: GLUCOSE 10 TAB/TUBE PO PRN (20:57)
[2022-11-09] MEDS ORDERED: DEXTROSE 50% 50 ML SYRINGE IV PRN (20:57)
[2022-11-09] MEDS: PANTOprazole 40 MG TAB PO SCH (20:57)
[2022-11-09] MEDS: guaiFENesin 600 MG TABCR PO SCH (20:57)
[2022-11-09] MEDS: POTASSIUM CHLORIDE CRTAB 20 MEQ TABCR PO SCH (20:57)
[2022-11-09] MEDS: INSULIN ASPART PER UNIT SC SCH (21:28)
[2022-11-09] MEDS: LANTUS PER UNIT CHARGE SQ SCH (21:29)
[2022-11-09 23:10] LABS: Appearance Urine Cloudy (Clear); Bacteria Urine Automated Negative (Negative); Bilirubin Urine Negative (Negative); Blood Urine Negative (Negative); Cast Urine Automated 0 /lpf (0-5); Color Urine Yellow; Glucose Urine UA Negative (Negative); Ketones Urine Negative (Negative); Leukocyte Esterase Urine Negative (Negative); Nitrite Urine Negative (Negative); Protein Urine Negative (Negative); Specific Gravity Urine 1.011 (1.000-1.030); Urobilinogen Urine Negative (Negative); pH Urine 8.5 (4.5-7.5)
[2022-11-10] MEDS: ALBUT/IPRATROP 3MG/0.5MG NEB 3 ML VIAL NEB SCH ×4 (07:01→19:34)
[2022-11-10 08:12] LABS: Hematocrit (blood only) 29.1 % (37.0-47.0); Hemoglobin 8.8 g/dl (12.0-16.0); Mean Corpuscular Hemoglobin 29.2 pg (25.0-34.0); Mean Corpuscular Hgb Conc 30.2 g/dL (32.0-36.0); Mean Corpuscular Volume 96.7 fL (80.0-100.0); Mean Platelet Volume 10.1 fL (9.4-12.4); Platelet Count 406 K/uL (130-400); RDW Coefficient of Variation 14.2 % (11.5-14.5); RDW Standard Deviation 50.7 fL (36.4-46.3); Red Blood Count 3.01 M/uL (4.20-5.40); White Blood Count 10.86 K/ul (4.8-10.8)
[2022-11-10] MEDS: methylPREDNISolone 60 MG in SYRINGE 0 ML IV SCH (08:19)
[2022-11-10] MEDS: DOCUSATE SODIUM 100 MG CAP PO SCH ×2 (08:20→22:11)
[2022-11-10] MEDS: FLUDROCORTISONE ACETATE 0.1 MG TAB PO SCH (08:20)
[2022-11-10] MEDS: PANTOprazole 40 MG TAB PO SCH ×2 (08:20→22:14)
[2022-11-10] MEDS: METOPROLOL SUCC 50MG EXT REL TAB PO SCH (08:20)
[2022-11-10] MEDS: ATORVASTATIN 40 MG TAB PO SCH (08:20)
[2022-11-10] MEDS: FUROSEMIDE 40 MG TAB PO SCH ×2 (08:21→17:16)
[2022-11-10] MEDS: DOXYCYCLINE HYCLATE 100 MG CAP PO SCH ×2 (08:21→22:12)
[2022-11-10] MEDS: FLUTICASONE/VILANTEROL 200/25MCG 14 PUFFS/INHALER INH SCH (08:22)
[2022-11-10 08:31] LABS: Calcium 8.9 mg/dl (8.5-10.1); Magnesium 2.3 mg/dl (1.7-2.4)
[2022-11-10 08:37] LABS: BUN Creatinine Ratio 22.4 (10-20); Creatinine Clr Calc Pharmacy 70.3 ml/min; Est GFR (African American) 93.4 ml/min; Est GFR (Non-African American) 80.6 ml/min
[2022-11-10] MEDS: oxyCODONE HCL IR 5 MG TAB (IMMEDIATE RELEASE) PO PRN ×2 (08:54→17:19)
[2022-11-10] MEDS: INSULIN ASPART PER UNIT SC SCH ×4 (08:58→22:25)
[2022-11-10] MEDS ORDERED: methylPREDNISolone 125 MG/2 ML VIAL IV SCH (09:00)
[2022-11-10] MEDS: LANTUS PER UNIT CHARGE SQ SCH ×2 (09:02→22:24)
[2022-11-10] MEDS: POTASSIUM CHLORIDE CRTAB 20 MEQ TABCR PO SCH ×2 (09:13→22:24)
[2022-11-10] MEDS: FAMOTIDINE 20 MG TAB PO SCH ×2 (11:07→22:13)
[2022-11-10] MEDS: APIXABAN 5 MG TABLET PO SCH ×2 (11:08→22:11)
[2022-11-10] MEDS: guaiFENesin 600 MG TABCR PO SCH ×2 (11:08→22:13)
[2022-11-10] MEDS: NICOTINE 21 MG/24 HR TDSY TD SCH (17:16)
--- NOTE | 2022-11-10 22:49 | Hospitalist Progress Note ---
Date of Service November 10, 2022 Assessment & Plan (1) COPD exacerbation: Plan: -Admit to med/tele -The patient is currently afebrile, hemodynamically stable, and now stable on RA -Patient experienced increased SOB with respiratory distress noted by EMS on arrival, initially placed on Bipap in the ED -The patient tested positive for covid but this is likely due to her previously known infection and admission in September -The rest of her Biofire was negative -Was given 125 mg Solu-Medrol by EMS, will continue with 60 mg IV tomorrow then can transition back to PO if she is stable. Will hold her home Hydrocortisone for now -Will start Doxy 100 mg PO BID instead of Azithromycin due to her QTc being 513 -Continue home breathing treatments -Incentive spirometry, flutter therapy, PRN DuoNebs, prn Robitussin -Monitor on tele and pulse oximetry Smoking cessation plan discussed with patient 11/10-patient reports improvement respiratory efforts Continue IV steroids and nebulizer treatments as needed We will check venous Doppler bilateral lower extremities patient has a prior history of PAF but is anticoagulated Eliquis at this time (2) Paroxysmal atrial fibrillation: Plan: -Continue Eliquis and metoprolol -Patient has a temporary loop recorder in place, for further evaluation to see if her known arrhythmias are related to afib vs multifocal atrial tachycardia (3) Elevated troponin: Plan: -Initial trop elevated at 28, repeat is a 24.6, patient is asymptomatic after receiving initial treatments and her ECG is without acute ST segment or T-wave changes -Likely due to demand from her respiratory dsitress this am -Monitor on tele (4) Tobacco abuse: Plan: -Nicotine patch ordered -Continue to stress smoking cessation (5) (HFpEF) heart failure with preserved ejection fraction: Plan: -Patient now with normal LVEF as of 10/08/22 -Recently had her dose of lasix increased to 40 mg PO BID by cardiology, examines euvolemic at this time -Continue lasix (6) Adrenal insufficiency: Plan: -Stable -Hold home hydrocortisone while receiving steroids for COPD exacerbation (7) COVID-19: Plan: -Found to be positive again today, likely due to recent infection in September, no isolation precautions needed at this time (8) Type 2 diabetes mellitus: Plan: -Last A1c in August was 7.3 -Monitor BSG ACHS, goal is 110-160 while on steroids -Will start with 5 units lantus BID, correction factor of 50 and carb ratio of 15 -DM II diet -Adjust regimen as needed (9) Hyperlipidemia: Plan: -Continue (10) GERD (gastroesophageal reflux disease): Plan: -Continue pantoprazole and famotidine Plan The patient was discussed with Dr. Donald at the time of the admission Admission and Anticipated Discharge Date Admission Date: November 09, 2022 Subjective Patient reports slight improvement in her breathing No fevers reported Patient examined with RN and concerned about swelling and erythema on the lower extremity noted Patient anticoagulated with Eliquis but has history of PE in the past Physical Exam Physical Exam: Head and ENT no thyroid enlargement trachea midline Cardiovascular S1-S2 are normal no S3 Lungs bilateral air entry slightly decreased at bases few scattered rhonchi Abdomen soft nondistended positive bowel sounds no rebound tenderness Extremity shows trace edema Neurologically no focal deficits Skin shows no rash no cyanosis Results & Data Results & Data ([facility]) Vital Signs (Past 12 Hours) Vital Signs Temp Pulse Pulse Resp BP Pulse Ox O2 Del Method 11/10/22 22:37 Room Air 11/10/22 16:00 Room Air 11/10/22 19:40 36.7 C 101 H 20 119/78 94 Room Air 11/10/22 19:34 82 16 94 Room Air 11/10/22 16:00 86 11/10/22 15:00 36.7 C 78 18 125/73 97 Room Air 11/10/22 15:13 74 18 95 Room Air 11/10/22 11:39 36.7 C 84 18 133/85 97 Room Air FiO2 11/10/22 22:37 11/10/22 16:00 11/10/22 19:40 11/10/22 19:34 21 11/10/22 16:00 11/10/22 15:00 11/10/22 15:13 11/10/22 11:39 Laboratory Results Short CBC 11/10/22 Range/Units 07:46 WBC 10.86 H (4.8-10.8) K/ul Hgb 8.8 L (12.0-16.0) g/dl Hct 29.1 L (37.0-47.0) % Plt Count 406 H (130-400) K/uL BMP 11/10/22 07:46 Sodium 143 Potassium 4.0 Chloride 108 H Carbon Dioxide 29 BUN 17 Creatinine 0.76 Glucose 83 Calcium 8.9 Urine 11/09/22 Range/Units 21:43 Urine Color Yellow Urine Appearance Cloudy A (Clear) Urine pH 8.5 H (4.5-7.5) Ur Specific [place] 1.011 (1.000-1.030) Urine Protein Negative (Negative) Urine Glucose (UA) Negative (Negative) PG Care Time/CCT Total # of Minutes Spent Total Time Spent with Patient: Total time spent is greater than 50% in coordination of care (as documented) at patient's floor/unit and/or counseling patient: Coding Level of Care Code 35112 SUB INP/OBS CARE 2/35MIN Diagnoses COPD exacerbation J44.1 Paroxysmal atrial fibrillation I48.0 Elevated troponin R77.8 Tobacco abuse Z72.0 (HFpEF) heart failure with preserved ejection fraction I50.30 Adrenal insufficiency E27.40 COVID-19 U07.1 Type 2 diabetes mellitus E11.9 Hyperlipidemia E78.5 GERD (gastroesophageal reflux disease) K21.9
[2022-11-11 05:51] LABS: Hematocrit (blood only) 29.7 % (37.0-47.0); Mean Corpuscular Hemoglobin 29.4 pg (25.0-34.0); Mean Corpuscular Hgb Conc 30.3 g/dL (32.0-36.0); Mean Corpuscular Volume 97.1 fL (80.0-100.0); Mean Platelet Volume 10.3 fL (9.4-12.4); Platelet Count 403 K/uL (130-400); RDW Coefficient of Variation 14.3 % (11.5-14.5); RDW Standard Deviation 50.6 fL (36.4-46.3); Red Blood Count 3.06 M/uL (4.20-5.40)
[2022-11-11 06:19] LABS: Calcium 8.8 mg/dl (8.5-10.1); Potassium 4.2 mmol/L (3.5-5.1)
[2022-11-11 06:26] LABS: BUN Creatinine Ratio 21.9 (10-20); Creatinine Clr Calc Pharmacy 46.3 ml/min; Est GFR (African American) 57.2 ml/min; Est GFR (Non-African American) 49.4 ml/min
[2022-11-11] MEDS: ALBUT/IPRATROP 3MG/0.5MG NEB 3 ML VIAL NEB SCH ×4 (07:00→17:56)
[2022-11-11] MEDS: INSULIN ASPART PER UNIT SC SCH ×4 (08:45→22:33)
[2022-11-11] MEDS: LANTUS PER UNIT CHARGE SQ SCH ×2 (08:45→22:30)
[2022-11-11] MEDS: methylPREDNISolone 60 MG in SYRINGE 0 ML IV SCH (08:58)
[2022-11-11] MEDS: POTASSIUM CHLORIDE CRTAB 20 MEQ TABCR PO SCH ×2 (08:58→22:37)
[2022-11-11] MEDS: FUROSEMIDE 40 MG TAB PO SCH ×2 (08:59→16:10)
[2022-11-11] MEDS: FLUDROCORTISONE ACETATE 0.1 MG TAB PO SCH (08:59)
[2022-11-11] MEDS: DOXYCYCLINE HYCLATE 100 MG CAP PO SCH ×2 (09:00→22:27)
[2022-11-11] MEDS: FLUTICASONE/VILANTEROL 200/25MCG 14 PUFFS/INHALER INH SCH (09:00)
[2022-11-11] MEDS: guaiFENesin 600 MG TABCR PO SCH ×2 (09:00→22:28)
[2022-11-11] MEDS: FAMOTIDINE 20 MG TAB PO SCH ×2 (09:00→22:27)
[2022-11-11] MEDS: APIXABAN 5 MG TABLET PO SCH ×2 (09:00→22:26)
[2022-11-11] MEDS: DOCUSATE SODIUM 100 MG CAP PO SCH ×2 (09:00→22:25)
[2022-11-11] MEDS: METOPROLOL SUCC 50MG EXT REL TAB PO SCH (09:00)
[2022-11-11] MEDS: PANTOprazole 40 MG TAB PO SCH ×2 (09:00→22:29)
[2022-11-11] MEDS: ATORVASTATIN 40 MG TAB PO SCH (09:00)
[2022-11-11] MEDS: oxyCODONE HCL IR 5 MG TAB (IMMEDIATE RELEASE) PO PRN (12:17)
--- NOTE | 2022-11-11 13:36 | Ultrasound Report ---
BILATERAL LOWER EXTREMITY VENOUS DOPPLER HISTORY: Lower extremity swelling and history of PE COMPARISON STUDY: None. FINDINGS: There is normal compressibility, flow, and augmentation within the bilateral lower extremit y deep venous systems. A 5.8 x 1.6 x 1.6 cm right popliteal cyst. IMPRESSION: No DVT within the right or left lower extremity. ACT 112: Negative or not required by law. Electronically signed by: Brandon Duggan M.D. 11/11/2022 1:34 PM
[2022-11-11] MEDS: NICOTINE 21 MG/24 HR TDSY TD SCH (16:10)
--- NOTE | 2022-11-11 23:52 | Hospitalist Progress Note ---
Date of Service November 11, 2022 Assessment & Plan (1) COPD exacerbation: Plan: -Admit to med/tele -The patient is currently afebrile, hemodynamically stable, and now stable on RA -Patient experienced increased SOB with respiratory distress noted by EMS on arrival, initially placed on Bipap in the ED -The patient tested positive for covid but this is likely due to her previously known infection and admission in September -The rest of her Biofire was negative -Was given 125 mg Solu-Medrol by EMS, will continue with 60 mg IV tomorrow then can transition back to PO if she is stable. Will hold her home Hydrocortisone for now -Will start Doxy 100 mg PO BID instead of Azithromycin due to her QTc being 513 -Continue home breathing treatments -Incentive spirometry, flutter therapy, PRN DuoNebs, prn Robitussin -Monitor on tele and pulse oximetry Smoking cessation plan discussed with patient 11/10-patient reports improvement respiratory efforts Continue IV steroids and nebulizer treatments as needed We will check venous Doppler bilateral lower extremities patient has a prior history of PAF but is anticoagulated Eliquis at this time 11/11 improving with steroids (2) Paroxysmal atrial fibrillation: Plan: -Continue Eliquis and metoprolol -Patient has a temporary loop recorder in place, for further evaluation to see if her known arrhythmias are related to afib vs multifocal atrial tachycardia (3) Elevated troponin: Plan: -Initial trop elevated at 28, repeat is a 24.6, patient is asymptomatic after receiving initial treatments and her ECG is without acute ST segment or T-wave changes -Likely due to demand from her respiratory dsitress this am -Monitor on tele (4) Tobacco abuse: Plan: -Nicotine patch ordered -Continue to stress smoking cessation (5) (HFpEF) heart failure with preserved ejection fraction: Plan: -Patient now with normal LVEF as of 10/08/22 -Recently had her dose of lasix increased to 40 mg PO BID by cardiology, examines euvolemic at this time -Continue lasix (6) Adrenal insufficiency: Plan: -Stable -Hold home hydrocortisone while receiving steroids for COPD exacerbation (7) COVID-19: Plan: -Found to be positive again today, likely due to recent infection in September, no isolation precautions needed at this time (8) Type 2 diabetes mellitus: Plan: -Last A1c in August was 7.3 -Monitor BSG ACHS, goal is 110-160 while on steroids -Will start with 5 units lantus BID, correction factor of 50 and carb ratio of 15 -DM II diet -Adjust regimen as needed (9) Hyperlipidemia: Plan: -Continue (10) GERD (gastroesophageal reflux disease): Plan: -Continue pantoprazole and famotidine Plan Admission and Anticipated Discharge Date Admission Date: November 09, 2022 Subjective Patient reports slight improvement in her breathing No fevers reported Patient examined with RN Physical Exam Physical Exam: Head and ENT no thyroid enlargement trachea midline Cardiovascular S1-S2 are normal no S3 Lungs bilateral air entry slightly decreased at bases few scattered rhonchi Abdomen soft nondistended positive bowel sounds no rebound tenderness Extremity shows trace edema Neurologically no focal deficits Skin shows no rash no cyanosis Results & Data Results & Data ([facility]) Vital Signs (Past 12 Hours) Vital Signs Temp Pulse Pulse Resp BP BP Pulse Ox 11/11/22 22:45 36.5 C 70 20 152/80 H 98 11/11/22 22:53 11/11/22 19:29 36.7 C 75 20 130/76 96 11/11/22 17:57 73 16 96 11/11/22 16:45 78 11/11/22 15:56 36.7 C 80 18 118/82 97 11/11/22 14:30 85 16 96 O2 Del Method 11/11/22 22:45 Room Air 11/11/22 22:53 Room Air 11/11/22 19:29 Room Air 11/11/22 17:57 Room Air 11/11/22 16:45 11/11/22 15:56 Room Air 11/11/22 14:30 Room Air PG Care Time/CCT Total # of Minutes Spent Total Time Spent with Patient: Total time spent is greater than 50% in coordination of care (as documented) at patient's floor/unit and/or counseling patient: Coding Level of Care Code 73469 SUB INP/OBS CARE 2/35MIN Diagnoses COPD exacerbation J44.1 Paroxysmal atrial fibrillation I48.0 Elevated troponin R77.8 Tobacco abuse Z72.0 (HFpEF) heart failure with preserved ejection fraction I50.30 Adrenal insufficiency E27.40 COVID-19 U07.1 Type 2 diabetes mellitus E11.9 Hyperlipidemia E78.5 GERD (gastroesophageal reflux disease) K21.9
[2022-11-12 07:01] LABS: Hemoglobin 9.5 g/dl (12.0-16.0); Mean Corpuscular Hgb Conc 30.6 g/dL (32.0-36.0); Mean Corpuscular Volume 94.5 fL (80.0-100.0); Mean Platelet Volume 10.4 fL (9.4-12.4); Platelet Count 408 K/uL (130-400); RDW Standard Deviation 48.5 fL (36.4-46.3); Red Blood Count 3.28 M/uL (4.20-5.40); White Blood Count 9.79 K/ul (4.8-10.8)
[2022-11-12] MEDS: ALBUT/IPRATROP 3MG/0.5MG NEB 3 ML VIAL NEB SCH ×3 (07:13→15:45)
[2022-11-12 07:31] LABS: Calcium 9.1 mg/dl (8.5-10.1); Potassium 3.9 mmol/L (3.5-5.1)
[2022-11-12 07:37] LABS: BUN Creatinine Ratio 27.2 (10-20); Creatinine Clr Calc Pharmacy 50.8 ml/min; Est GFR (African American) 64.7 ml/min; Est GFR (Non-African American) 55.8 ml/min
[2022-11-12] MEDS: methylPREDNISolone 60 MG in SYRINGE 0 ML IV SCH (08:12)
[2022-11-12] MEDS: FLUTICASONE/VILANTEROL 200/25MCG 14 PUFFS/INHALER INH SCH (08:13)
[2022-11-12] MEDS: DOXYCYCLINE HYCLATE 100 MG CAP PO SCH (08:13)
[2022-11-12] MEDS: FAMOTIDINE 20 MG TAB PO SCH (08:13)
[2022-11-12] MEDS: guaiFENesin 600 MG TABCR PO SCH (08:13)
[2022-11-12] MEDS: PANTOprazole 40 MG TAB PO SCH (08:13)
[2022-11-12] MEDS: METOPROLOL SUCC 50MG EXT REL TAB PO SCH (08:13)
[2022-11-12] MEDS: ATORVASTATIN 40 MG TAB PO SCH (08:13)
[2022-11-12] MEDS: FUROSEMIDE 40 MG TAB PO SCH ×2 (08:14→16:53)
[2022-11-12] MEDS: FLUDROCORTISONE ACETATE 0.1 MG TAB PO SCH (08:14)
[2022-11-12] MEDS: APIXABAN 5 MG TABLET PO SCH (08:14)
[2022-11-12] MEDS: INSULIN ASPART PER UNIT SC SCH ×3 (08:22→17:00)
[2022-11-12] MEDS: LANTUS PER UNIT CHARGE SQ SCH (08:22)
[2022-11-12] MEDS: POTASSIUM CHLORIDE CRTAB 20 MEQ TABCR PO SCH (08:22)
[2022-11-12] MEDS: DOCUSATE SODIUM 100 MG CAP PO SCH (08:22)
[2022-11-12] MEDS: oxyCODONE HCL IR 5 MG TAB (IMMEDIATE RELEASE) PO PRN (08:29)
[2022-11-12] MEDS: NICOTINE 21 MG/24 HR TDSY TD SCH ×2 (16:55→16:58)
--- NOTE | 2022-11-12 18:36 | Discharge Summary ---
Date of Service November 12, 2022 Admission HPI Per Admitting Provider Radha is a 67-year-old female with a history significant for cardiomyopathy, HFpEF (LVEF of 55-60% as of 10/08/22), multi focal atrial tachycardia vs atrial fibrillation (currently on Eliquis), COPD, adrenal insufficiency (on chronic steroid therapy), carotid artery stenosis s/p left CEA (03/09/20), CVA (02/11/20), hypertension, dyslipidemia, pulmonary embolus (provoked postop hip surgery 05/2021), and CKD who presented to the [facility] Ed on 11/09/22 with a chief complaint of SOB. Per chart review, the patient was recently admitted to [facility] for 01/16 enterococcus faecalis amp sensitive bacteremia initially suspected septic arthritis vs UTI ultimately tx & discharged from [facility] 10/02 on apixaban 5 BID and ampicillin 2g Q4h. 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 Anemia 2/2 blood loss at that time. Ampicillin to be continued until 11/07/22. She was recently admitted to [facility] from 10/08-10-13 for Acute respiratory failure with hypoxia due to Covid 19 pneumonia and COPD exacerbation. She was initially requiring CPAP and supplemental oxygen on admission. She was treated with Dexamethasone and Remdesivir and was successfully weaned off supplemental O2 prior to discharge. Of note, the patient was started on dexamethasone 6 mg IV BID while holding her home hydrocortisone. She was given discharge instructions for weaning herself off of the dexamethasone and restarting her hydrocortisone. Her dose of Lasix was increased from 40 mg PO daily to 60 mg PO daily due to being volume overloaded on presentation. Her LVEF was found to be stable compared to her previous showing a LVEF of 40%. She was recently seen in the [facility] Cardiology clinnic by Dr. Sinclair on 10/23/22. Per his clinic note, he increased her dose of lasix to 40 mg PO BID and increased her dose of metoprolol succinate to 100 mg PO daily. Per the ED report today, the patient called EMS around 5 am due to worsening SOB. When EMS arrived they noted her to be tachypneic with respirations in the 40s. She was placed on CPAP, given 2 DuoNeb treatments, and also given 125 mg of Solu-Medrol. In the ED today the patient was found to be afebrile, hemodynamically stable, and stable on Bipap placed upon ED arrival. Labs were remarkable for a leukocytosis of 12.86, stable Hgb at 8.7 (was 8.5 on 10/12/22), platelet count of 420, stable cr of 0.84, stable electrolytes besides a chloride of 108, initial high sensitivity trop of 28.6, LFTs WNl, Covid 19 positive otherwise she was found to have a negative full respiratory biofire. Chest xray was read as Interval removal of left PICC. The cardio mediastinal silhouette is stable. The lungs are clear. No evidence of pleural effusion or pneumothorax.. Prior to admission the patient was given a DuoNeb treatment and 1gm IV magnesium and was successfully wean down to 2L NC. At the time of the exam the patient was resting comfortably in bed in no acute distress with her sitting bedside. They state that the patient developed significant SOB and increased cough this am. The patient used her nebulizer treatments without resolution of her symptoms so they called EMS. The patient states that her symptoms are much improved compared to arrival to the ED, she remained stable on RA during my exam. She denies recent fevers or chills, chest pain, changes in sputum production or color, abdominal pain, nausea, vomiting, diarrhea, dysuria, hematuria, and recent trauma. When asked, the patient admits that she started to smoke again and has been smoking approxim ately 1/2 PPD for the past week. I stressed the importance of cessation as it will continue to make her COPD and respiratory status worse. She did not take any of her am meds prior to arrival to the ED. The patient is a full code and wishes for her to make medical decisions if she cannot herself. Please refer to Dr. Donald's attetsation for any changes to the treatment plan Principal Diagnosis Acute COPD exacerbation Discharge Data Allergies Allergy/AdvReac Type Severity Reaction Status Date / Time No Known Allergies Allergy Verified 11/01/22 13:03 Consultations 11/09/22 11:55 ED Decision to Admit Stat Ordered Studies 11/11/22 22:43 US venous doppler LE RAY Routine Hospital Course (1) COPD exacerbation: -Admit to med/tele -The patient is currently afebrile, hemodynamically stable, and now stable on RA -Patient experienced increased SOB with respiratory distress noted by EMS on arrival, initially placed on Bipap in the ED -The patient tested positive for covid but this is likely due to her previously known infection and admission in September -The rest of her Biofire was negative -Was given 125 mg Solu-Medrol by EMS, will continue with 60 mg IV tomorrow then can transition back to PO if she is stable. Will hold her home Hydrocortisone for now -Will start Doxy 100 mg PO BID instead of Azithromycin due to her QTc being 513 -Continue home breathing treatments -Incentive spirometry, flutter therapy, PRN DuoNebs, prn Robitussin -Monitor on tele and pulse oximetry Smoking cessation plan discussed with patient 11/10-patient reports improvement respiratory efforts Continue IV steroids and nebulizer treatments as needed We will check venous Doppler bilateral lower extremities patient has a prior history of PAF but is anticoagulated Eliquis at this time 11/11 improving with steroids no dvt noted 11/12-patient anxious to get discharged Smoking cessation discussed with patient Patient will be DC'd on steroid taper instructions given to the patient (2) Paroxysmal atrial fibrillation: -Continue Eliquis and metoprolol -Patient has a temporary loop recorder in place, for further evaluation to see if her known arrhythmias are related to afib vs multifocal atrial tachycardia (3) Elevated troponin: -Initial trop elevated at 28, repeat is a 24.6, patient is asymptomatic after receiving initial treatments and her ECG is without acute ST segment or T-wave changes -Likely due to demand from her respiratory dsitress this am -Monitor on tele (4) Tobacco abuse: -Nicotine patch ordered -Continue to stress smoking cessation (5) (HFpEF) heart failure with preserved ejection fraction: -Patient now with normal LVEF as of 10/08/22 -Recently had her dose of lasix increased to 40 mg PO BID by cardiology, examines euvolemic at this time -Continue lasix (6) Adrenal insufficiency: -Stable -Hold home hydrocortisone while receiving steroids for COPD exacerbation (7) COVID-19: -Found to be positive again today, likely due to recent infection in September, no isolation precautions needed at this time (8) Type 2 diabetes mellitus: -Last A1c in August was 7.3 -Monitor BSG ACHS, goal is 110-160 while on steroids -Will start with 5 units lantus BID, correction factor of 50 and carb ratio of 15 -DM II diet -Adjust regimen as needed (9) Hyperlipidemia: -Continue (10) GERD (gastroesophageal reflux disease): -Continue pantoprazole and famotidine Plan Total Time Total Time Spent Total Time Spent (In Minutes): 45 Discharge Plan Discharge Items Patient Disposition: Home - Self-Care Reason For Visit: SOB Discharge Diagnosis: acute copd exacerbation Activity: Per Instructions section Lifting: Gradually increase as tolerated and Wait until after follow-up appointment Non-emergency contact: Primary Care Provider and Supervisor Heading Call non-emergency contact if: your symptoms worsen Follow-up/Referrals: Edwin Valdez MD [Primary Care Provider] - 11/22/22 11:00 am (Appointment with Giovanna Weinstein PA-C) Diet: Heart Healthy Addtl Attending Provider Instructions: f/u pcp - 3 days pulmonary -1 week Addtl [facility] Provider Instructions: STOP SMOKING Pending Studies at Discharge: No Stand-Alone Forms: My [facility] [employer], Smoking Cessation Medications and DC Order Prescriptions: Continued albuterol sulfate [ProAir HFA] 90 mcg/actuation HFA aerosol inhaler 2 inh INHALATION DAILY Qty: 18 5RF fluticasone propion-salmeterol [Advair Diskus] 250-50 mcg/dose blister with device 1 inh inhalation BID Qty: 60 11RF famotidine 20 mg tablet 20 mg PO BID Qty: 90 3RF pantoprazole 40 mg tablet,delayed release (DR/EC) 40 mg PO BID Qty: 90 3RF docusate sodium 100 mg capsule 100 mg PO BID Qty: 60 0RF acetaminophen 325 mg tablet 650 mg PO Q6H PRN (Reason: pain) Qty: 30 0RF fludrocortisone 0.1 mg tablet 0.1 mg PO DAILY Qty: 30 2RF apixaban 5 mg tablet 5 mg PO BID Qty: 60 0RF potassium chloride 20 mEq tablet,ER particles/crystals 40 meq PO BID Qty: 60 0RF Narcan 4 mg/actuation spray,non-aerosol 4 mg intranasal DIRECTED PRN (Reason: OVERSEDATION) Rx Instructions: spray 1 dose into ONE nostril; alternate nostrils w each dose until help arrives nicotine 21 mg/24 hr patch 24 hour 1 patch transdermal Q24H oxycodone 10 mg tablet 10 mg PO Q6H PRN (Reason: pain) Qty: 139 0RF atorvastatin 40 mg tablet 40 mg PO DAILY nicotine [Nicoderm CQ] 14 mg/24 hr patch 24 hour 1 patch transdermal Q24H 14 Days Qty: 14 0RF metoprolol succinate 100 mg tablet extended release 24 hr 100 mg PO DAILY Qty: 30 5RF furosemide 40 mg tablet 40 mg PO BID Qty: 60 5RF hydrocortisone 10 mg tablet See Rx Instructions .ROUTE .COMPLEX Qty: 45 0RF Rx Instructions: 10 mg in the morning, 5mg 8 hours later guaifenesin [Mucinex] 600 mg Tablet Extended Release 12hr 1,200 mg PO Q12 Qty: 60 0RF Discharge Orders: Discharge Order (Routine); Ordered 11/12/22 Ordered By: Omer Contreras/Other Patient Handouts: Discharge Instructions: COPD Admission Data Admit Date/Time: 11/09/22 12:46 Attending Provider: Omer Almaraz Admit Provider: Brandon Donald Primary Care Provider: Edwin Valdez Other Providers: Brandon Donald Other Interventions: Discharge Summary Assessment (RN) Last Done: 11/12/22 17:25 Coding Level of Care Code HOSP INP/OBS DISCH >30 MIN Diagnoses COPD exacerbation J44.1 Paroxysmal atrial fibrillation I48.0 Elevated troponin R77.8 Tobacco abuse Z72.0 (HFpEF) heart failure with preserved ejection fraction I50.30 Adrenal insufficiency E27.40 COVID-19 U07.1 Type 2 diabetes mellitus E11.9 Hyperlipidemia E78.5 GERD (gastroesophageal reflux disease) K21.9
== END 2022-11-12 18:01 | disposition home or self-care (01) ==
LOC: ED 08:16 → EDINP 08:16 → SUATTDRO 12:46 → EDINP 15:26 → 2W 22:35

== ENCOUNTER 2023-07-19 03:01 | Inpatient (IN) ==
[2023-07-19] MEDS ORDERED: ALBUT/IPRATROP 3MG/0.5MG NEB 3 ML VIAL NEB STA (03:16)
--- NOTE | 2023-07-19 03:17 | Emergency Department Note ---
Impression & Plan SOB (shortness of breath), Leukocytosis, Pneumonia, COPD exacerbation, Elevated troponin, Hypocalcemia ED Provider Note NAME: DEEPAK CORTEZ AGE: 68 SEX: F : 1955 ARRIVES VIA: Ambulance INFORMANT: [Patient][ems] ED PROVIDER(S): [Jp Richardson MD] CHIEF COMPLAINT: Short of breath HISTORY OF PRESENT ILLNESS: The patient is a 68-year-old female who states that she has had increasing shortness of breath for about a week but it worsened tonight. She received a DuoNeb in route with minimal improvement. The patient does have COPD as well as a history of CHF. There has been no fever, her cough may be slightly more wet. She does not a stuffy nose or sore throat. No vomiting or diarrhea. No urinary complaints. PMHx/PSHx: See Below SOCIAL HISTORY: See Below. PHYSICAL EXAM: GENERAL: Patient is in no acute distress. HEENT: No acute trauma, normocephalic atraumatic, mucous membranes moist, no nasal congestion. NECK: No stridor, no adenopathy, no meningismus, trachea is midline. LUNGS: Crackles at both lung bases especially on the right. Decreased breath sounds on the right. No real respiratory distress. Moist cough noted. HEART: Distant heart tones, irregular rhythm, no obvious murmur. Rate seems regular. ABDOMEN: Soft, nontender, bowel sounds positive, no peritonitis. EXTREMITIES: No cyanosis. Mild bilateral pedal edema. NEUROLOGIC: Oriented x 3, she does have decreased movement of the right lower extremity but this is chronic. SKIN: No rash, no jaundice, no diaphoresis. DIFFERENTIAL DIAGNOSIS: Bronchitis or pneumonia, CHF, exacerbation of COPD, anemia, electrolyte imbalance, viral illness, cardiac ischemia, among others. EMERGENCY DEPARTMENT COURSE/PROCEDURES: Prior/Outside records reviewed: Previous pulmonology note, previous cardiology note. ECG per my interpretation: Indication was shortness of breath. The ECG shows a sinus rhythm with some PACs. There is a right bundle branch block. There is some baseline artifact. There is no ST elevation. No PVCs. The QTc is 442. Compared to an ECG from 09 November 2022, PVCs and her longer present. Continuous Cardiac Monitoring per my interpretation: An order was placed for continuous cardiac monitoring. The monitor shows a rate of 94 with normal sinus rhythm. MEDICAL DECISION MAKING: There is a mild leukocytosis, this could be consistent with infection. The patient is anemic however, this appears baseline looking back at previous testing. There is a normal platelet count. No coagulopathy. VBG does not show significant acidosis or CO2 retention. No renal failure. Calcium is low at 7.1. Lactic acid level was not elevated making severe sepsis less likely. No concerning liver enzyme elevation. BNP was elevated at over 600 however, this value is less than her previous testing results. ECG shows a sinus rhythm with PACs, no obvious acute ischemia. Cardiac enzyme testing x1 was slightly elevated however, today's troponin is less than previous testing. Chest x-ray per my review shows some congestion at the left base consistent with a potential early infiltrate. There was no pneumonia or CHF. On exam, the patient did have some crackles in her lower lung nina. She was not febrile. She was not hypoxic. COVID, influenza and RSV test returned negative. The patient was given a 500 cc saline bolus, IV Solu-Medrol, IV ceftriaxone, IV calcium and a DuoNeb. Patient likely has an early pneumonia or a bronchitis flaring up her COPD. This has led to her dyspnea and I think explains the white count elevation. She has worsened in the last week to the point where tonight, she presents to the ED. Given her underlying health issues, given her presentation, I do think a hospital stay is warranted. I spoke with the patient and case management, the on-call hospitalist was consulted. Patient is currently resting fairly comfortably. She appears to be in improved condition from when she arrived. DISPOSITION: Patient's presentation and findings warrant a hospital stay. Past Med/Surg History Medical History (HFpEF) heart failure with preserved ejection fraction Acute renal failure Adrenal insufficiency [facility] with [facility] Endocrinology Asthma PT STATES TAKES RESCUE INHALER DAILY C. difficile enteritis hx - no recent episodes Cardiomyopathy Carotid stenosis, left S/P L CEA (02/18/20) (Prior to CEA patient had 80% LICA stenosis ) Cerebral aneurysm Per records, pt unaware No significant aneurysm noted with head CTA and brain MRI from 01/2020 Chronic heart failure with preserved ejection fraction CKD (chronic kidney disease) stage III Continuous tobacco abuse CVA (cerebral vascular accident) CVA 4/29/20- no residual effects, follows with [facility], patient was on plavix until ~1 month after left CEA surgery, now on ASA 81mg Depression with anxiety Edema hx - doing well currently Eosinophilic esophagitis GERD (gastroesophageal reflux disease) History of COVID-19 tested positive 10/2022 at [facility] -- fatigue, weakness, lethargy, chills/fever History of Meniere's disease History of MTHFR mutation per medical records -- pt unaware History of prediabetes HGBA1C 6.1% on 01/28/21 History of revision of total replacement of right hip joint 03/25/21 - [facility]; explantation old hardware, wound vac placement. History of septic shock 03/2021 - due to septic R hip; 04/2021 - again due to septic R hip - hospitalized [facility] each admission. Pseudomonas, proteus, oj albicans. 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 uses wheelchair, able to stand and pivot Osteoarthritis Paroxysmal atrial fibrillation hx -> follows with Dr. Sinclair Pulmonary emboli ~2020. pt unsure why she had the blood clot. treated with medication Pulmonary hypertension hx -- pt unaware RBBB SOB (shortness of breath) Type 2 diabetes mellitus pt denies UTI (urinary tract infection) hx VRE infection (vancomycin resistant Enterococcus) pt unaware -- per medical record dx 2021 at [facility] (urine) Weight loss, unintentional for the last 2 years -> has lost about 70lbs. Surgical History H/O carotid endarterectomy History of appendectomy History of bilateral tubal ligation History of brain surgery History of History of cataract surgery History of section History of cholecystectomy History of colonoscopy History of esophagogastroduodenoscopy (EGD) History of hip surgery History of incision and drainage History of tonsillectomy History of tooth extraction History of total hip arthroplasty S/P carotid endarterectomy Status post revision of total hip replacement (~01/2021) Family History Mother Diabetes Family history of diabetes mellitus Sister Diabetes Family history of diabetes mellitus Arterial thrombosis Amputation of leg Father Heart disease Lung disease Other No family history of adverse response to anesthesia Denies family history of Ovarian cancer Prostate cancer Myocardial infarction Breast cancer Colorectal cancer Social History Smoking Status: Current every day smoker Tobacco Type: Cigarettes Age Started Using Tobacco: 17; Age Quit Using Tobacco: 65; packs per day: 1; Cigarettes Per Day: 10 to 15 a day. Sometimes a pack a day. 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 How many Children do You have: 2 How many Children do You have Comment: 1 child from suicide Feels Safe at Home: Yes Childhood Exposure to Second-Hand Smoke: Yes Diet: regular Dental Care, Regularly: No Physical Activity Frequency: Does not Exercise Seatbelt Use: always Sunscreen Use: No Assistive Devices: Denture - Upper, Hospital Bed, Lift Chair, Nebulizer, Raised Toilet Seat and Wheelchair Allergies Allergies Allergy/AdvReac Type Severity Reaction Status Date / Time No Known Allergies Allergy Verified 05/08/23 13:40 Home Meds Home Medications Medication Instructions Recorded Confirmed naloxone 4 mg/actuation nasal 4 mg intranasal DIRECTED PRN 06/13/21 05/15/23 spray (Narcan) OVERSEDATION Medical Thc 1 dose inhalation DAILY 03/28/23 05/15/23 fludrocortisone 0.1 mg tablet 0.1 mg PO QAM adrenal insufficiency 03/28/23 05/15/23 metoprolol succinate 100 mg 100 mg PO QAM 03/28/23 05/15/23 tablet,extended release 24 hr potassium chloride 20 mEq 20 meq PO QAM 03/28/23 05/15/23 tablet,extended release Previous Rx's Medication Instructions Recorded acetaminophen 325 mg tablet 650 mg PO Q6H PRN pain #30 tabs 10/04/22 furosemide 40 mg tablet 40 mg PO BID #60 tabs 10/23/22 incontinence pad, liner, disp #156 ea 02/13/23 hydrocortisone 10 mg tablet See Rx Instructions .Route 03/21/23 .COMPLEX #45 tabs famotidine 20 mg tablet 20 mg PO BID #90 tabs 04/10/23 pantoprazole 40 mg tablet,delayed 40 mg PO BID #90 tabs 05/14/23 release albuterol sulfate 90 mcg/actuation 2 inh inhalation Q4H PRN shortness 05/22/23 aerosol inhaler (ProAir HFA) of breath or wheezing #18 grams albuterol sulfate 2.5 mg/3 mL 2.5 mg (3 mL) inhalation QID PRN 05/24/23 (0.083 %) solution for nebulization shortness of breath or wheezing #180 mL azithromycin 250 mg tablet See Rx Instructions PO .COMPLEX #6 05/24/23 tabs fluticasone fur. 200 mcg-umeclid 1 inh inhalation DAILY #60 ea 05/24/23 62.5 mcg-vilant 25 mcg inhalat.powder (Trelegy Ellipta) prednisone 20 mg tablet 20 mg PO BID 5 days #10 tabs 05/24/23 hydrocortisone 20 mg tablet 40 mg PO BID PRN see specific 06/07/23 directions #90 tabs sacubitril 24 mg-valsartan 26 mg 1 tab PO BID 30 days #60 tabs 06/21/23 tablet (Entresto) ondansetron 4 mg disintegrating 4 mg PO Q6H PRN NAUSEA/VOMITING 07/06/23 tablet #20 tabs oxycodone 10 mg tablet 10 mg PO Q6H PRN pain #139 tabs 07/06/23 atorvastatin 40 mg tablet 40 mg PO QAM #90 tabs 07/12/23 apixaban 5 mg tablet 5 mg PO BID #60 tabs 07/16/23 empagliflozin 10 mg tablet 10 mg PO QAM #90 tabs 07/16/23 (Jardiance) Results & Data (ED) Vital Signs Vital Signs - 24 hr 07/19/23 03:17 07/19/23 03:23 07/19/23 03:48 Temperature 36.7 C Temperature Source Oral Pulse Rate 93 H Pulse Rate [Apical] 85 Respiratory Rate 18 18 Blood Pressure 102/65 Blood Pressure [Right Arm] 99/62 L Blood Pressure Mean 77 Blood Pressure Mean [Right Arm] 74 Pulse Oximetry 96 96 94 Oxygen Delivery Method Room Air Room Air Room Air Sepsis Recent Fever Within 48 Hours No Sepsis New/Unexplained Change in Mental Status No Sepsis Action Taken by Nursing No Action Required 07/19/23 03:12 07/19/23 05:08 Temperature Temperature Source Pulse Rate 93 H Pulse Rate [Apical] 83 Respiratory Rate 20 Blood Pressure Blood Pressure [Right Arm] 115/63 Blood Pressure Mean Blood Pressure Mean [Right Arm] 80 Pulse Oximetry 94 Oxygen Delivery Method Room Air Sepsis Recent Fever Within 48 Hours Sepsis New/Unexplained Change in Mental Status Sepsis Action Taken by Prison Medications Current Medication List: was personally reviewed by me Laboratory Data Attestation: I reviewed the patient's lab results. 07/19/23 03:22 07/19/23 03:22 Lab Results 07/19/23 07/19/23 07/19/23 Range/Units 03:15 03:22 03:22 WBC 12.84 H (4.8-10.8) K/ul RBC 3.59 L (4.20-5.40) M/uL Hgb 9.4 L (12.0-16.0) g/dl Hct 32.6 L (37.0-47.0) % MCV 90.8 (80.0-100.0) fL MCH 26.2 (25.0-34.0) pg MCHC 28.8 L (32.0-36.0) g/dL RDW Std Deviation 56.8 H (36.4-46.3) fL RDW Coeff of Crow 17.2 H (11.5-14.5) % Plt Count 299 (130-400) K/uL MPV 10.6 (9.4-12.4) fL Immature Gran % (Auto) 0.9 % Neut % (Auto) 77.2 % Lymph % (Auto) 16.3 % [place] % (Auto) 5.5 % Eos % (Auto) 0.0 % Baso % (Auto) 0.1 % Neut # (Auto) 9.92 H (1.40-6.50) K/uL Lymph # (Auto) 2.09 (1.20-3.40) K/uL [place] # (Auto) 0.70 H (0.11-0.59) K/uL Eos # (Auto) 0.00 (0.00-0.50) K/uL Baso # (Auto) 0.01 (0.00-0.20) K/uL Immature Gran # (Auto) 0.12 (0.01-0.20) K/uL Absolute Nucleated RBC 0.02 (0.00-0.12) K/uL Nucleated RBC % (auto) 0.2 % Polychromasia 1+ Hypochromasia Present Basophilic Stippling 1+ Echinocytes 2+ Acanthocytes (Spur) 2+ PT 10.3 (9.0-12.0) Seconds INR 0.9 (0.9-1.1) APTT 25.0 (21.0-31.0) Seconds PTT Ratio 0.9 VBG pH (7.36-7.41) VBG pCO2 (38-50) mmHg VBG pO2 mmHg VBG HCO3 mmol/L VBG O2 Saturation % VBG Base Excess mEq/L Sodium (136-145) mmol/L Potassium (3.5-5.1) mmol/L Chloride (98-107) mmol/L Carbon Dioxide (21-32) mmol/L Anion Gap (3-11) BUN (6-23) mg/dl Creatinine (0.6-1.2) mg/dl Est Cr Clr Drug Dosing ml/min Est GFR ( Amer) ml/min Est GFR (Non-Af Amer) ml/min BUN/Creatinine Ratio (10-20) Glucose (70-99(Fasting)) mg/dl Lactate (0.4-2.0) mmol/L Calcium (8.6-10.3) mg/dl Magnesium (1.7-2.4) mg/dl Total Bilirubin (0.2-1.0) mg/dl AST (13-39) U/L ALT (7-52) U/L Alkaline Phosphatase (34-104) U/L Troponin I High Sens (0-14) pg/ml B-Natriuretic Peptide (0-100) pg/ml Total Protein (6.0-8.3) gm/dl Albumin (3.4-5.0) gm/dl Globulin (2.5-4.0) gm/dl Albumin/Globulin Ratio (0.9-2) SARS-CoV-2 (PCR) NEGATIVE (Negative) Influenza Type A (PCR) Negative (Neg) Influenza Type B (PCR) Negative (Neg) RSV (RT-PCR) Negative (Neg) 07/19/23 07/19/23 07/19/23 Range/Units 03:22 03:22 03:22 WBC (4.8-10.8) K/ul RBC (4.20-5.40) M/uL Hgb (12.0-16.0) g/dl Hct (37.0-47.0) % MCV (80.0-100.0) fL MCH (25.0-34.0) pg MCHC (32.0-36.0) g/dL RDW Std Deviation (36.4-46.3) fL RDW Coeff of Crow (11.5-14.5) % Plt Count (130-400) K/uL MPV (9.4-12.4) fL Immature Gran % (Auto) % Neut % (Auto) % Lymph % (Auto) % [place] % (Auto) % Eos % (Auto) % Baso % (Auto) % Neut # (Auto) (1.40-6.50) K/uL Lymph # (Auto) (1.20-3.40) K/uL [place] # (Auto) (0.11-0.59) K/uL Eos # (Auto) (0.00-0.50) K/uL Baso # (Auto) (0.00-0.20) K/uL Immature Gran # (Auto) (0.01-0.20) K/uL Absolute Nucleated RBC (0.00-0.12) K/uL Nucleated RBC % (auto) % Polychromasia Hypochromasia Basophilic Stippling Echinocytes Acanthocytes (Spur) PT (9.0-12.0) Seconds INR (0.9-1.1) APTT (21.0-31.0) Seconds PTT Ratio VBG pH 7.35 L (7.36-7.41) VBG pCO2 44 (38-50) mmHg VBG pO2 26 mmHg VBG HCO3 24 mmol/L VBG O2 Saturation < 60.0 % VBG Base Excess -1.5 mEq/L Sodium 142 (136-145) mmol/L Potassium 4.0 (3.5-5.1) mmol/L Chloride 113 H (98-107) mmol/L Carbon Dioxide 25 (21-32) mmol/L Anion Gap 4 (3-11) BUN 21 (6-23) mg/dl Creatinine 0.90 (0.6-1.2) mg/dl Est Cr Clr Drug Dosing 61.3 ml/min Est GFR ( Amer) 75.6 ml/min Est GFR (Non-Af Amer) 65.2 ml/min BUN/Creatinine Ratio 23.3 H (10-20) Glucose 133 H (70-99(Fasting)) mg/dl Lactate (0.4-2.0) mmol/L Calcium 7.1 L (8.6-10.3) mg/dl Magnesium 2.0 (1.7-2.4) mg/dl Total Bilirubin 0.4 (0.2-1.0) mg/dl AST 10 L (13-39) U/L ALT 12 (7-52) U/L Alkaline Phosphatase 56 (34-104) U/L Troponin I High Sens 19.2 H (0-14) pg/ml B-Natriuretic Peptide 677 H (0-100) pg/ml Total Protein 4.3 L (6.0-8.3) gm/dl Albumin 2.3 L (3.4-5.0) gm/dl Globulin 2.0 L (2.5-4.0) gm/dl Albumin/Globulin Ratio 1.1 (0.9-2) SARS-CoV-2 (PCR) (Negative) Influenza Type A (PCR) (Neg) Influenza Type B (PCR) (Neg) RSV (RT-PCR) (Neg) 07/19/23 Range/Units 04:35 WBC (4.8-10.8) K/ul RBC (4.20-5.40) M/uL Hgb (12.0-16.0) g/dl Hct (37.0-47.0) % MCV (80.0-100.0) fL MCH (25.0-34.0) pg MCHC (32.0-36.0) g/dL RDW Std Deviation (36.4-46.3) fL RDW Coeff of Crow (11.5-14.5) % Plt Count (130-400) K/uL MPV (9.4-12.4) fL Immature Gran % (Auto) % Neut % (Auto) % Lymph % (Auto) % [place] % (Auto) % Eos % (Auto) % Baso % (Auto) % Neut # (Auto) (1.40-6.50) K/uL Lymph # (Auto) (1.20-3.40) K/uL [place] # (Auto) (0.11-0.59) K/uL Eos # (Auto) (0.00-0.50) K/uL Baso # (Auto) (0.00-0.20) K/uL Immature Gran # (Auto) (0.01-0.20) K/uL Absolute Nucleated RBC (0.00-0.12) K/uL Nucleated RBC % (auto) % Polychromasia Hypochromasia Basophilic Stippling Echinocytes Acanthocytes (Spur) PT (9.0-12.0) Seconds INR (0.9-1.1) APTT (21.0-31.0) Seconds PTT Ratio VBG pH (7.36-7.41) VBG pCO2 (38-50) mmHg VBG pO2 mmHg VBG HCO3 mmol/L VBG O2 Saturation % VBG Base Excess mEq/L Sodium (136-145) mmol/L Potassium (3.5-5.1) mmol/L Chloride (98-107) mmol/L Carbon Dioxide (21-32) mmol/L Anion Gap (3-11) BUN (6-23) mg/dl Creatinine (0.6-1.2) mg/dl Est Cr Clr Drug Dosing ml/min Est GFR ( Amer) ml/min Est GFR (Non-Af Amer) ml/min BUN/Creatinine Ratio (10-20) Glucose (70-99(Fasting)) mg/dl Lactate 1.2 (0.4-2.0) mmol/L Calcium (8.6-10.3) mg/dl Magnesium (1.7-2.4) mg/dl Total Bilirubin (0.2-1.0) mg/dl AST (13-39) U/L ALT (7-52) U/L Alkaline Phosphatase (34-104) U/L Troponin I High Sens (0-14) pg/ml B-Natriuretic Peptide (0-100) pg/ml Total Protein (6.0-8.3) gm/dl Albumin (3.4-5.0) gm/dl Globulin (2.5-4.0) gm/dl Albumin/Globulin Ratio (0.9-2) SARS-CoV-2 (PCR) (Negative) Influenza Type A (PCR) (Neg) Influenza Type B (PCR) (Neg) RSV (RT-PCR) (Neg) Administered Medications Discontinued Medications Albuterol (Albut/Ipratrop 3mg/0.5mg Neb 3 Ml Vial) 3 ml NEB NOW STA; Protocol Stop: 07/19/23 03:17 Last Admin: 07/19/23 03:26 Dose: 3 ml Documented By: LA Sodium Chloride (Nss) 500 mls @ 999 mls/hr IV .Q31M ONE Stop: 07/19/23 04:48 Last Admin: 07/19/23 04:59 Dose: 999 mls/hr Documented By: LA Calcium Gluconate () 1,000 mg in 60 mls @ 240 mls/hr IV NOW STA Stop: 07/19/23 04:32 Last Admin: 07/19/23 04:59 Dose: 240 mls/hr Documented By: LA Methylprednisolone (Methylprednisolone 125 Mg/2 Ml Vial) 60 mg IV NOW STA Stop: 07/19/23 04:11 Last Admin: 07/19/23 04:58 Dose: 60 mg Documented By: LA Imaging Data Attestation: I personally reviewed and interpreted this imaging study as follows: My Impression: Chest x-ray per my review: Patient has some congestion in the left lower lung, this could be consistent with early pneumonia. There is no pneumothorax or CHF. Discharge Plan Visit Data Chief Complaint: Shortness of Breath/Dyspnea Stated Complaint: SHORTNESS OF BREATH ED Provider: Jp Richardson Discharge Problem: SOB (shortness of breath), Leukocytosis, Pneumonia, COPD exacerbation, Elevated troponin, Hypocalcemia Patient Disposition: Admitted As Inpatient Condition: Fair Forms Stand Alone Forms: My [facility] Prescriptions Prescriptions: No Action acetaminophen 325 mg tablet 650 mg PO Q6H PRN (Reason: pain) Qty: 30 0RF (DME) incontinence pad, liner, disp Pad See Rx Instructions .Route Qty: 156 6RF Rx Instructions: Blue cora pads for stress incontinence, use up to 5 daily hydrocortisone 10 mg tablet See Rx Instructions .ROUTE .COMPLEX Qty: 45 0RF Rx Instructions: 10 mg in the morning, 5mg 8 hours later famotidine 20 mg tablet 20 mg PO BID Qty: 90 3RF pantoprazole 40 mg tablet,delayed release (DR/EC) 40 mg PO BID Qty: 90 3RF albuterol sulfate [ProAir HFA] 90 mcg/actuation HFA aerosol inhaler 2 inh INHALATION Q4H PRN (Reason: shortness of breath or wheezing) Qty: 18 5RF hydrocortisone 20 mg tablet 40 mg PO BID PRN (Reason: see specific directions) Qty: 90 2RF Rx Instructions: During times of stress only, take 40mg in the morning and then 20mg 8 hours later. Entresto 24-26 mg tablet 1 tab PO BID 30 Days Qty: 60 2RF ondansetron 4 mg tablet,disintegrating 4 mg PO Q6H PRN (Reason: NAUSEA/VOMITING) Qty: 20 1RF oxycodone 10 mg tablet 10 mg PO Q6H PRN (Reason: pain) Qty: 139 0RF Rx Instructions: Dr. Valdez DEVON# [id number], Lic# [id number] atorvastatin 40 mg tablet 40 mg PO QAM Qty: 90 3RF apixaban 5 mg tablet 5 mg PO BID Qty: 60 5RF Jardiance 10 mg tablet 10 mg PO QAM Qty: 90 3RF albuterol sulfate 2.5 mg /3 mL (0.083 %) solution for nebulization 2.5 mg inhalation QID PRN (Reason: shortness of breath or wheezing) Qty: 180 3RF Trelegy Ellipta 200-62.5-25 mcg blister with device 1 inh inhalation DAILY Qty: 60 3RF azithromycin 250 mg tablet See Rx Instructions PO .COMPLEX Qty: 6 0RF Rx Instructions: For 250 mg dose pack: take 500 mg today (day 1), then 250 mg for 4 days (days 2-5) PO prednisone 20 mg tablet 20 mg PO BID 5 Days Qty: 10 0RF Narcan 4 mg/actuation spray,non-aerosol 4 mg intranasal DIRECTED PRN (Reason: OVERSEDATION) Rx Instructions: spray 1 dose into ONE nostril; alternate nostrils w each dose until help arrives furosemide 40 mg tablet 40 mg PO BID Qty: 60 5RF metoprolol succinate 100 mg tablet extended release 24 hr 100 mg PO QAM fludrocortisone 0.1 mg tablet 0.1 mg PO QAM potassium chloride 20 mEq tablet extended release 20 meq PO QAM Medical Thc 1 dose inhalation DAILY Referrals Referrals: Edwin Valdez MD [Primary Care Provider] - Leukocytosis Qualifiers: Leukocytosis type: unspecified Qualified Code(s): D72.829 - Elevated white blood cell count, unspecified Pneumonia Qualifiers: Pneumonia type: due to unspecified organism Laterality: left Lung location: lower lobe of lung Qualified Code(s): J18.9 - Pneumonia, unspecified organism
[2023-07-19 03:33] LABS: Base Excess VBG -1.5 mEq/L; HCO3 VBG 24 mmol/L; Oxygen Saturation VBG < 60.0 %; PCO2 VBG 44 mmHg (38-50); PO2 VBG 26 mmHg; pH VBG 7.35 (7.36-7.41)
[2023-07-19 03:58] LABS: Albumin Globulin Ratio 1.1 (0.9-2); Albumin Level 2.3 gm/dl (3.4-5.0); BUN Creatinine Ratio 23.3 (10-20); Bilirubin,Total 0.4 mg/dl (0.2-1.0); Calcium 7.1 mg/dl (8.6-10.3); Creatinine Clr Calc Pharmacy 61.3 ml/min; Est GFR (African American) 75.6 ml/min; Est GFR (Non-African American) 65.2 ml/min; Total Protein 4.3 gm/dl (6.0-8.3)
[2023-07-19 04:01] LABS: Acanthocytes 2+; Basophilic Stippling 1+; Basophils # (auto) 0.01 K/uL (0.00-0.20); Basophils % (auto) 0.1 %; Echinocytes 2+; Hematocrit (blood only) 32.6 % (37.0-47.0); Hemoglobin 9.4 g/dl (12.0-16.0); Hypochromasia Present; Immature Granulocytes # (auto) 0.12 K/uL (0.01-0.20); Immature Granulocytes % (auto) 0.9 %; Lymphocytes # (auto) 2.09 K/uL (1.20-3.40); Lymphocytes % (auto) 16.3 %; Mean Corpuscular Hemoglobin 26.2 pg (25.0-34.0); Mean Corpuscular Hgb Conc 28.8 g/dL (32.0-36.0); Mean Corpuscular Volume 90.8 fL (80.0-100.0); Mean Platelet Volume 10.6 fL (9.4-12.4); Monocytes % (auto) 5.5 %; Neutrophils # (auto) 9.92 K/uL (1.40-6.50); Neutrophils % (auto) 77.2 %; Nucleated RBC # (auto) 0.02 K/uL (0.00-0.12); Nucleated RBC % (auto) 0.2 %; Platelet Count 299 K/uL (130-400); Polychromasia 1+; RDW Coefficient of Variation 17.2 % (11.5-14.5); RDW Standard Deviation 56.8 fL (36.4-46.3); Red Blood Count 3.59 M/uL (4.20-5.40); White Blood Count 12.84 K/ul (4.8-10.8)
[2023-07-19 04:04] LABS: Troponin I High Sensitivity 19.2 pg/ml (0-14)
[2023-07-19 04:10] LABS: INR 0.9 (0.9-1.1); Partial Thromboplastin Ratio 0.9; Prothrombin Time 10.3 Seconds (9.0-12.0)
[2023-07-19] MEDS ORDERED: cefTRIAXone SODIUM 2,000 MG/70 ML BAG IV STA (04:10)
[2023-07-19] MEDS ORDERED: methylPREDNISolone 125 MG/2 ML VIAL IV STA (04:10)
[2023-07-19] MEDS ORDERED: CALCIUM GLUCONATE 1,000 MG/60 ML BAG IV STA (04:18)
[2023-07-19] MEDS ORDERED: SODIUM CHLORIDE 0.9% 500 ML IV ONE (04:18)
[2023-07-19 05:06] LABS: Influenza A virus by PCR Negative (Neg); Influenza B virus by PCR Negative (Neg); RSV by PCR Negative (Neg); SARS CoV2 RNA(COVID-19) Ceph NEGATIVE (Negative)
--- NOTE | 2023-07-19 06:05 | History & Physical Report ---
Date of Service July 19, 2023 Assessment & Plan (1) SOB (shortness of breath): Plan: Suspect COPD exacerbation, possible PNA. No respiratory distress. No hypoxia -Duoneb q 4 hours -Albuterol q 2 hours PRN -Flutter valve -Continue Trelegy -Azithromycin + Ceftriaxone (2) GERD (gastroesophageal reflux disease): Plan: -Famotidine 20mg po BID -Protonix 40mg po BID (3) Adrenal insufficiency: Plan: -Continue Florinef -Stress dose Hydrocortisone - 40mg po qAM and 20mg po qPM (4) History of pulmonary embolism: Plan: -Continue Apixaban (5) Hypertension: Plan: -Continue Metoprolol (6) Cardiomyopathy: Plan: -Continue metoprolol -Continue Entresto History of Present Illness Chief Complaint: shortness of breath Primary Care Provider: Edwin Valdez MD Radha Tello is a 68yo female presenting with progressive shortness of breath for the last week as well as cough and wheeze. Patient had severe shortness of breath tonight which prompted her to come to the ER. She denies fever, chills, sweats, purulent sputum, edema, orthopnea. Denies abdominal pain, nausea, vomiting, diarrhea. She reports some improvement with her home breathing treatments and nebulizers. In the ER she is afebrile, HD stable, NAD Allergies Allergy/AdvReac Type Severity Reaction Status Date / Time No Known Allergies Allergy Verified 05/08/23 13:40 Home Medications Medication Instructions Recorded Confirmed Type naloxone 4 mg/actuation nasal 4 mg intranasal DIRECTED PRN 06/13/21 05/15/23 History spray (Narcan) OVERSEDATION acetaminophen 325 mg tablet 650 mg PO Q6H PRN pain #30 tabs 10/04/22 05/08/23 Rx furosemide 40 mg tablet 40 mg PO BID #60 tabs 10/23/22 05/15/23 Rx incontinence pad, liner, disp #156 ea 02/13/23 05/15/23 Rx hydrocortisone 10 mg tablet See Rx Instructions .Route 03/21/23 05/15/23 Rx .COMPLEX #45 tabs Medical Thc 1 dose inhalation DAILY 03/28/23 05/15/23 History fludrocortisone 0.1 mg tablet 0.1 mg PO QAM adrenal insufficiency 03/28/23 05/15/23 History metoprolol succinate 100 mg 100 mg PO QAM 03/28/23 05/15/23 History tablet,extended release 24 hr potassium chloride 20 mEq 20 meq PO QAM 03/28/23 05/15/23 History tablet,extended release famotidine 20 mg tablet 20 mg PO BID #90 tabs 04/10/23 05/15/23 Rx pantoprazole 40 mg tablet,delayed 40 mg PO BID #90 tabs 05/14/23 05/15/23 Rx release albuterol sulfate 90 mcg/actuation 2 inh inhalation Q4H PRN shortness 05/22/23 Rx aerosol inhaler (ProAir HFA) of breath or wheezing #18 grams albuterol sulfate 2.5 mg/3 mL 2.5 mg (3 mL) inhalation QID PRN 05/24/23 05/24/23 Rx (0.083 %) solution for nebulization shortness of breath or wheezing #180 mL azithromycin 250 mg tablet See Rx Instructions PO .COMPLEX #6 05/24/23 05/24/23 Rx tabs fluticasone fur. 200 mcg-umeclid 1 inh inhalation DAILY #60 ea 05/24/23 05/24/23 Rx 62.5 mcg-vilant 25 mcg inhalat.powder (Trelegy Ellipta) prednisone 20 mg tablet 20 mg PO BID 5 days #10 tabs 05/24/23 05/24/23 Rx hydrocortisone 20 mg tablet 40 mg PO BID PRN see specific 06/07/23 Rx directions #90 tabs sacubitril 24 mg-valsartan 26 mg 1 tab PO BID 30 days #60 tabs 06/21/23 Rx tablet (Entresto) ondansetron 4 mg disintegrating 4 mg PO Q6H PRN NAUSEA/VOMITING 07/06/23 Rx tablet #20 tabs oxycodone 10 mg tablet 10 mg PO Q6H PRN pain #139 tabs 07/06/23 Rx atorvastatin 40 mg tablet 40 mg PO QAM #90 tabs 07/12/23 Rx apixaban 5 mg tablet 5 mg PO BID #60 tabs 07/16/23 Rx empagliflozin 10 mg tablet 10 mg PO QAM #90 tabs 07/16/23 Rx (Jardiance) Past Med/Surg History Medical History (HFpEF) heart failure with preserved ejection fraction Acute renal failure Adrenal insufficiency follows with [facility] Endocrinology Asthma PT STATES TAKES RESCUE INHALER DAILY C. difficile enteritis hx - no recent episodes Cardiomyopathy Carotid stenosis, left S/P L CEA (02/18/20) (Prior to CEA patient had 80% LICA stenosis ) Cerebral aneurysm Per records, pt unaware No significant aneurysm noted with head CTA and brain MRI from 01/2020 Chronic heart failure with preserved ejection fraction CKD (chronic kidney disease) stage III Continuous tobacco abuse CVA (cerebral vascular accident) CVA 02/11/20- no residual effects, follows with [facility], patient was on plavix until ~1 month after left CEA surgery, now on ASA 81mg Depression with anxiety Edema hx - doing well currently Eosinophilic esophagitis GERD (gastroesophageal reflux disease) History of COVID-19 tested positive 10/2022 at [facility] -- fatigue, weakness, lethargy, chills/fever History of Meniere's disease History of MTHFR mutation per medical records -- pt unaware History of prediabetes HGBA1C 6.1% on 01/28/21 History of revision of total replacement of right hip joint 03/25/[address] - [facility]; explantation old hardware, wound vac placement. History of septic shock 03/2021 - due to septic R hip; 04/2021 - again due to septic R hip - hospitalized [facility] each admission. Pseudomonas, proteus, oj albicans. 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 uses wheelchair, able to stand and pivot Osteoarthritis Paroxysmal atrial fibrillation hx -> follows with Dr. Sinclair Pulmonary emboli ~2020. pt unsure why she had the blood clot. treated with medication Pulmonary hypertension hx -- pt unaware RBBB SOB (shortness of breath) Type 2 diabetes mellitus pt denies UTI (urinary tract infection) hx VRE infection (vancomycin resistant Enterococcus) pt unaware -- per medical record dx 2021 at [facility] (urine) Weight loss, unintentional for the last 2 years -> has lost about 70lbs. Surgical History H/O carotid endarterectomy Left CEA: 02/18/20: Grade view 1 with head lift, MAC#3, ETT 7.0 at [facility] History of appendectomy History of bilateral tubal ligation History of brain surgery ~2014 (Meniere's treatment/[facility]) History of History of cataract surgery R/L History of section x1 History of cholecystectomy History of colonoscopy History of esophagogastroduodenoscopy (EGD) History of hip surgery removal of the right hip joint replacement 01/2023 d/t chronic infection. History of incision and drainage right hip - multiple I/D's, 03/2021-04/2021; [facility]. History of tonsillectomy History of tooth extraction History of total hip arthroplasty RT> with repair S/P carotid endarterectomy Status post revision of total hip replacement (~01/2021) Family History Mother Diabetes Family history of diabetes mellitus Sister Diabetes Family history of diabetes mellitus Arterial thrombosis Amputation of leg Father Heart disease Lung disease Other No family history of adverse response to anesthesia Denies family history of Ovarian cancer Prostate cancer Myocardial infarction Breast cancer Colorectal cancer Social History Smoking Status: Current every day smoker Tobacco Type: Cigarettes Age Started Using Tobacco: 17; Age Quit Using Tobacco: 65; packs per day: 1; Cigarettes Per Day: 10 to 15 a day. Sometimes a pack a day. Educated Pt on 1-800-Quit Now.; Second Hand Exposure: Yes; Do You Dip or Chew Tobacco: No; Hx Alcohol Use: No Hx Substance Use: Yes (medical THC) Last Used Substance: Unknown Last Used Substance Other:: 03/27/23 Substance Use Type Other:: daily use Preferred Language: Icelandic Communication Ability: Effective Visual Impairment: No Limitations Hearing Ability: Normal Harness And Bag Inspector Required: No Beliefs That Will Affect Care: None marital status: Unknown Current Living Situation: Alone Current Living Situation Comment: handicap appartment with caregivers current occupational status: retired 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 How many Children do You have: 2 How many Children do You have Comment: 1 child from suicide Feels Safe at Home: Yes Childhood Exposure to Second-Hand Smoke: Yes Diet: regular Dental Care, Regularly: No Physical Activity Frequency: Does not Exercise Seatbelt Use: always Sunscreen Use: No Assistive Devices: Denture - Upper, Hospital Bed, Lift Chair, Nebulizer, Raised Toilet Seat and Wheelchair Review of Systems Review of Systems: All systems reviewed & are unremarkable except as noted in HPI & below Physical Exam Physical Exam: General: patient resting comfortably, NAD, non-toxic in appearance, AA&O x 4 Skin: warm, dry, intact, no rashes or lesions HEENT: NC/AT, PERRL, EOMI, anicteric sclera, conjunctiva without injection, external ear normal to inspection and nontender, nares patent, moist mucus membranes, dentition intact, no oropharyngeal lesions, neck supple, trachea midline, no LAD, no thyromegaly, no JVD Heart: +S1/S2, regular, no m/r/g Lungs: equal air entry bilaterally, no rales/rhonchi, +end expiratory wheezing greater in right lung Abd: +BS, soft, NT/ND, no masses/organomegaly/ascites Ext: warm, 2+ pulses in UE/LE bilaterally, no clubbing/cyanosis or edema Neuro: nonfocal, patient AA&O x 4, speech intact, no facial droop, moving all extremities on command with equal strength 5/5 Results & Data Results & Data Vital Signs (Past 12 Hours) Vital Signs Temp Pulse Pulse Resp BP BP Pulse Ox 07/19/23 05:08 83 20 115/63 94 07/19/23 03:12 93 H 07/19/23 03:48 85 18 99/62 L 94 07/19/23 03:23 96 07/19/23 03:17 36.7 C 93 H 18 102/65 96 O2 Del Method 07/19/23 05:08 Room Air 07/19/23 03:12 07/19/23 03:48 Room Air 07/19/23 03:23 Room Air 07/19/23 03:17 Room Air Laboratory Results Laboratory Results WBC 12.84 K/ul (4.8-10.8) H 07/19/23 03:22 RBC 3.59 M/uL (4.20-5.40) L 07/19/23 03:22 Hgb 9.4 g/dl (12.0-16.0) L 07/19/23 03:22 Hct 32.6 % (37.0-47.0) L 07/19/23 03:22 MCV 90.8 fL (80.0-100.0) 07/19/23 03:22 MCH 26.2 pg (25.0-34.0) 07/19/23 03:22 MCHC 28.8 g/dL (32.0-36.0) L 07/19/23 03: RDW Std Deviation 56.8 fL (36.4-46.3) H 07/19/23 03: RDW Coeff of Crow 17.2 % (11.5-14.5) H 07/19/23 03:22 Plt Count 299 K/uL (130-400) 07/19/23 03:22 MPV 10.6 fL (9.4-12.4) 07/19/23 03: Immature Gran % (Auto) 0.9 % 07/19/23 03: Neut % (Auto) 77.2 % 07/19/23 03:22 Lymph % (Auto) 16.3 % 07/19/23 03:22 Coos % (Auto) 5.5 % 07/19/23 03:22 Eos % (Auto) 0.0 % 07/19/23 03:22 Baso % (Auto) 0.1 % 07/19/23 03:22 Neut # (Auto) 9.92 K/uL (1.40-6.50) H 07/19/23 03:22 Lymph # (Auto) 2.09 K/uL (1.20-3.40) 07/19/23 03:22 Coos # (Auto) 0.70 K/uL (0.11-0.59) H 07/19/23 03:22 Eos # (Auto) 0.00 K/uL (0.00-0.50) 07/19/23 03:22 Baso # (Auto) 0.01 K/uL (0.00-0.20) 07/19/23 03:22 Immature Gran # (Auto) 0.12 K/uL (0.01-0.20) 07/19/23 03:22 Absolute Nucleated RBC 0.02 K/uL (0.00-0.12) 07/19/23 03:22 Nucleated RBC % (auto) 0.2 % 07/19/23 03:22 Polychromasia 1+ 07/19/23 03:22 Hypochromasia Present 07/19/23 03:22 Basophilic Stippling 1+ 07/19/23 03:22 Echinocytes 2+ 07/19/23 03:22 Acanthocytes (Spur) 2+ 07/19/23 03:22 PT 10.3 Seconds (9.0-12.0) 07/19/23 03:22 INR 0.9 (0.9-1.1) 07/19/23 03:22 APTT 25.0 Seconds (21.0-31.0) 07/19/23 03:22 PTT Ratio 0.9 07/19/23 03:22 VBG pH 7.35 (7.36-7.41) L 07/19/23 03:22 VBG pCO2 44 mmHg (38-50) 07/19/23 03:22 VBG pO2 26 mmHg 07/19/23 03:22 VBG HCO3 24 mmol/L 07/19/23 03:22 VBG O2 Saturation < 60.0 % 07/19/23 03:22 VBG Base Excess -1.5 mEq/L 07/19/23 03:22 Sodium 142 mmol/L (136-145) 07/19/23 03:22 Potassium 4.0 mmol/L (3.5-5.1) 07/19/23 03:22 Chloride 113 mmol/L (98-107) H 07/19/23 03:22 Carbon Dioxide 25 mmol/L (21-32) 07/19/23 03:22 Anion Gap 4 (3-11) 07/19/23 03:22 BUN 21 mg/dl (6-23) 07/19/23 03:22 Creatinine 0.90 mg/dl (0.6-1.2) 07/19/23 03:22 Est Cr Clr Drug Dosing 61.3 ml/min 07/19/23 03:22 Est GFR ( Amer) 75.6 ml/min 07/19/23 03:22 Est GFR (Non-Af Amer) 65.2 ml/min 07/19/23 03:22 BUN/Creatinine Ratio 23.3 (10-20) H 07/19/23 03:22 Glucose 133 mg/dl (70-99(Fasting)) H 07/19/23 03:22 Lactate 1.2 mmol/L (0.4-2.0) 07/19/23 04:35 Calcium 7.1 mg/dl (8.6-10.3) L 07/19/23 03:22 Magnesium 2.0 mg/dl (1.7-2.4) 07/19/23 03:22 Total Bilirubin 0.4 mg/dl (0.2-1.0) 07/19/23 03:22 AST 10 U/L (13-39) L 07/19/23 03:22 ALT 12 U/L (7-52) 07/19/23 03:22 Alkaline Phosphatase 56 U/L (34-104) 07/19/23 03:22 Troponin I High Sens 19.2 pg/ml (0-14) H 07/19/23 03:22 B-Natriuretic Peptide 677 pg/ml (0-100) H 07/19/23 03:22 Total Protein 4.3 gm/dl (6.0-8.3) L 07/19/23 03:22 Albumin 2.3 gm/dl (3.4-5.0) L 07/19/23 03:22 Globulin 2.0 gm/dl (2.5-4.0) L 07/19/23 03:22 Albumin/Globulin Ratio 1.1 (0.9-2) 07/19/23 03:22 SARS-CoV-2 (PCR) NEGATIVE (Negative) 07/19/23 03:15 Influenza Type A (PCR) Negative (Neg) 07/19/23 03:15 Influenza Type B (PCR) Negative (Neg) 07/19/23 03:15 RSV (RT-PCR) Negative (Neg) 07/19/23 03:15 PG Care Time/CCT Total # of Minutes Spent Total Time Spent with Patient: Total time spent is greater than 50% in coordination of care (as documented) at patient's floor/unit and/or counseling patient: Coding Level of Care Code 26817 INT INP/OBS CARE 2/55MIN Diagnoses SOB (shortness of breath) R06.02 GERD (gastroesophageal reflux disease) K21.9 Adrenal insufficiency E27.40 History of pulmonary embolism Z86.711 Hypertension I10 Cardiomyopathy I42.9
--- NOTE | 2023-07-19 08:49 | XRay Report ---
XR chest 1V portable CLINICAL HISTORY: Dyspnea TECHNIQUE: Single frontal radiograph of the chest was obtained. Comparison: Comparison is made to chest radiograph 11/09/2022 FINDINGS: No lines and tubes are seen. The cardiomediastinal silhouette is normal. The lungs are clear. No evid ence of pleural effusion or pneumothorax. IMPRESSION: No acute abnormalities and in particular no radiographic evidence of pneumonia. ACT 112: Negative or not required by law. Electronically signed by: Simba Mcclain M.D. 07/19/2023 8:47 AM
[2023-07-19] MEDS ORDERED: HYDROCORTISONE 10 MG TAB PO PRN (09:23)
[2023-07-19] MEDS ORDERED: bisacodyL 10 MG SUPP PR PRN (09:23)
[2023-07-19] MEDS ORDERED: ALBUTEROL 0.5% NEB SOLN 2.5 MG/0.5 ML VIAL NEB PRN (09:23)
[2023-07-19] MEDS ORDERED: INFLUENZA VACCINE HIGH-DOSE (HD-IIV4) PF 65+ 0.7mL SYR IM ONE (10:32)
[2023-07-19] MEDS: APIXABAN 5 MG TABLET PO SCH ×2 (10:38→20:45)
[2023-07-19] MEDS: ATORVASTATIN 40 MG TAB PO SCH (10:39)
[2023-07-19] MEDS: FAMOTIDINE 20 MG TAB PO SCH ×2 (10:39→20:45)
[2023-07-19] MEDS: FLUDROCORTISONE ACETATE 0.1 MG TAB PO SCH (10:39)
[2023-07-19] MEDS: UMECLIDINIUM/VILANTEROL 62.5/25MCG 7 PUFFS/INHALER INH SCH (10:39)
[2023-07-19] MEDS: FLUTICASONE FUROATE 200MCG 14 PUFFS/INHALER INH SCH (10:39)
[2023-07-19] MEDS: PANTOprazole 40 MG TAB PO SCH ×2 (10:41→20:45)
[2023-07-19] MEDS: VALSARTAN/SACUBITRIL 26/24MG TAB PO SCH ×2 (10:41→20:45)
[2023-07-19] MEDS: NICOTINE 21 MG/24 HR TDSY TD SCH (10:41)
[2023-07-19] MEDS: METOPROLOL SUCC 50MG EXT REL TAB PO SCH (10:41)
[2023-07-19] MEDS: FUROSEMIDE 40 MG TAB PO SCH ×2 (10:41→20:45)
[2023-07-19] MEDS: POLYETHYLENE (MIRALAX) 17 GM PACK PO SCH (10:42)
[2023-07-19] MEDS: POTASSIUM CHLORIDE CRTAB 20 MEQ TABCR PO SCH (10:42)
[2023-07-19] MEDS: AZITHROMYCIN 500 MG in DEXTROSE 5% 250 ML IV SCH (10:43)
[2023-07-19] MEDS: ALBUT/IPRATROP 3MG/0.5MG NEB 3 ML VIAL NEB SCH ×5 (10:51→23:58)
--- NOTE | 2023-07-19 14:58 | Electrocardiogram Report ---
Test Reason : Blood Pressure : / mmHG Vent. Rate : 090 BPM Atrial Rate : 090 BPM P-R Int : 128 ms QRS Dur : 094 ms QT Int : 362 ms P-R-T Axes : 069 077 035 degrees QTc Int : 442 ms Sinus rhythm with Premature atrial complexes Low voltage QRS Incomplete right bundle branch block Abnormal ECG When compared with ECG of 09-NOV-2022 08:24, Premature ventricular complexes are no longer Present Premature atrial complexes are now Present QT has shortened Confirmed by Edwin Miranda ([id number]) on 07/19/2023 2:58:10 PM Referred By: REFERRED SELF Confirmed By:Mickey Miranda
[2023-07-19] MEDS ORDERED: MINERAL OIL ENEMA 133 ML BTL PR ONE (17:34)
--- NOTE | 2023-07-19 19:59 | XRay Report ---
KUB CLINICAL HISTORY: Constipation. FINDINGS: 2 AP, portable, supine abdominal radiographs are compared to study dated 11/05/2021. Correla tion is made with abdominal CT dated 11/03/2021. Cholecystectomy clips are seen in the right upper georgiana drant. There is moderate constipation. There is mild gaseous distention of the small bowel loops with out radiographic evidence of high-grade obstruction. No evidence of intraperitoneal free air is ident ified on these supine images. There are no abnormal abdominal calcifications. Phleboliths are seen in the pelvis. The skeletal structures are osteopenic. A right hip arthroplasty has been removed and th ere is dislocation of the right proximal femur. The lung bases are clear as imaged. IMPRESSION: 1. Gaseous distention of the small bowel loops without radiographic evidence of high-grade obstructio n. 2. Moderate constipation. 3. A right hip arthroplasty has been removed and there is dislocation of the right proximal femur. Electronically signed by: Jp Luna M.D. 07/19/2023 7:56 PM
[2023-07-20] MEDS: ALBUT/IPRATROP 3MG/0.5MG NEB 3 ML VIAL NEB SCH ×6 (03:04→23:43)
[2023-07-20] MEDS: cefTRIAXone SODIUM 2,000 MG in DEXTROSE 5% 50 ML IV SCH (05:50)
[2023-07-20] MEDS: oxyCODONE HCL IR 5 MG TAB (IMMEDIATE RELEASE) PO PRN ×2 (08:57→22:32)
[2023-07-20] MEDS: FAMOTIDINE 20 MG TAB PO SCH ×2 (08:57→22:03)
[2023-07-20] MEDS: ATORVASTATIN 40 MG TAB PO SCH (08:58)
[2023-07-20] MEDS: POLYETHYLENE (MIRALAX) 17 GM PACK PO SCH (08:58)
[2023-07-20] MEDS: FUROSEMIDE 40 MG TAB PO SCH (08:58)
[2023-07-20] MEDS: PANTOprazole 40 MG TAB PO SCH ×2 (08:58→22:34)
[2023-07-20] MEDS: POTASSIUM CHLORIDE CRTAB 20 MEQ TABCR PO SCH (08:58)
[2023-07-20] MEDS: VALSARTAN/SACUBITRIL 26/24MG TAB PO SCH ×2 (08:58→22:34)
[2023-07-20] MEDS: APIXABAN 5 MG TABLET PO SCH ×2 (08:59→22:34)
[2023-07-20] MEDS: METOPROLOL SUCC 50MG EXT REL TAB PO SCH (08:59)
[2023-07-20] MEDS: FLUDROCORTISONE ACETATE 0.1 MG TAB PO SCH (08:59)
[2023-07-20] MEDS: UMECLIDINIUM/VILANTEROL 62.5/25MCG 7 PUFFS/INHALER INH SCH (09:01)
[2023-07-20] MEDS: NICOTINE 21 MG/24 HR TDSY TD SCH (09:02)
[2023-07-20] MEDS: FLUTICASONE FUROATE 200MCG 14 PUFFS/INHALER INH SCH (09:04)
[2023-07-20] MEDS: AZITHROMYCIN 500 MG in DEXTROSE 5% 250 ML IV SCH (10:37)
[2023-07-20 13:26] LABS: Hematocrit (blood only) 32.2 % (37.0-47.0); Hemoglobin 9.3 g/dl (12.0-16.0); Mean Corpuscular Hgb Conc 28.9 g/dL (32.0-36.0); Mean Corpuscular Volume 89.9 fL (80.0-100.0); Mean Platelet Volume 10.8 fL (9.4-12.4); Nucleated RBC # (auto) 0.04 K/uL (0.00-0.12); Nucleated RBC % (auto) 0.3 %; Platelet Count 287 K/uL (130-400); RDW Coefficient of Variation 17.3 % (11.5-14.5); Red Blood Count 3.58 M/uL (4.20-5.40); White Blood Count 13.12 K/ul (4.8-10.8)
[2023-07-20 13:58] LABS: BUN Creatinine Ratio 18.4 (10-20); Calcium 6.9 mg/dl (8.6-10.3); Creatinine Clr Calc Pharmacy 53.6 ml/min; Est GFR (African American) 64.2 ml/min; Est GFR (Non-African American) 55.4 ml/min; Potassium 3.1 mmol/L (3.5-5.1)
[2023-07-20] MEDS ORDERED: POTASSIUM CHLORIDE CRTAB 20 MEQ TABCR PO STA (14:14)
[2023-07-20 18:24] LABS: Hematocrit (blood only) 32.5 % (37.0-47.0); Hemoglobin 9.6 g/dl (12.0-16.0)
--- NOTE | 2023-07-20 23:21 | Hospitalist Progress Note ---
Date of Service July 20, 2023 Assessment & Plan (1) SOB (shortness of breath): Plan: Suspect COPD exacerbation, possible PNA. No respiratory distress. No hypoxia -Duoneb q 4 hours -Albuterol q 2 hours PRN -Flutter valve -Continue Trelegy -Azithromycin + Ceftriaxone Patient's blood pressure if low. WIll hold off discharge and transfer to [facility]. will resume steroids in AM. Likely will consider holding entresto and metoprolol if needed. (2) GERD (gastroesophageal reflux disease): Plan: -Famotidine 20mg po BID -Protonix 40mg po BID (3) Adrenal insufficiency: Plan: -Continue Florinef -Stress dose Hydrocortisone - 40mg po qAM and 20mg po qPM (4) History of pulmonary embolism: Plan: -Continue Apixaban (5) Hypertension: Plan: -Continue Metoprolol (6) Cardiomyopathy: Plan: -Continue metoprolol -Continue Entresto Admission and Anticipated Discharge Date Admission Date: July 20, 2023 Subjective Patient reports feeling well. Review of Systems Review of Systems: All systems reviewed & are unremarkable except as noted in HPI & below Physical Exam Physical Exam: General: patient resting comfortably, NAD, non-toxic in appearance, AA&O x 4 Skin: warm, dry, intact, no rashes or lesions HEENT: NC/AT, PERRL, EOMI, anicteric sclera, conjunctiva without injection, external ear normal to inspection and nontender, nares patent, moist mucus membranes, dentition intact, no oropharyngeal lesions, neck supple, trachea midline, no LAD, no thyromegaly, no JVD Heart: +S1/S2, regular, no m/r/g Lungs: equal air entry bilaterally, no rales/rhonchi, +end expiratory wheezing greater in right lung Abd: +BS, soft, NT/ND, no masses/organomegaly/ascites Ext: warm, 2+ pulses in UE/LE bilaterally, no clubbing/cyanosis or edema Neuro: nonfocal, patient AA&O x 4, speech intact, no facial droop, moving all extremities on command with equal strength 5/5 Results & Data Results & Data Vital Signs (Past 12 Hours) Vital Signs Temp Pulse Pulse Resp BP Pulse Ox O2 Del Method 07/20/23 20:53 84 18 94 Room Air 07/20/23 18:07 108 H 15 84/59 L 94 Room Air 07/20/23 17:28 37.1 C 113 H 17 89/57 L 95 Room Air 07/20/23 15:09 87 16 94 Room Air 07/20/23 14:16 36.9 C 85 14 95/57 L 97 Room Air 07/20/23 11:41 92 H 15 95 Room Air FiO2 07/20/23 20:53 07/20/23 18:07 07/20/23 17:28 07/20/23 15:09 07/20/23 14:16 07/20/23 11:41 21 PG Care Time/CCT Total # of Minutes Spent Total Time Spent with Patient: Total time spent is greater than 50% in coordination of care (as documented) at patient's floor/unit and/or counseling patient: Coding Level of Care Code 99575 SUB INP/OBS CARE 2/35MIN Diagnoses SOB (shortness of breath) R06.02 GERD (gastroesophageal reflux disease) K21.9 Adrenal insufficiency E27.40 History of pulmonary embolism Z86.711 Hypertension I10 Cardiomyopathy I42.9
[2023-07-21] MEDS: HYDROCORTISONE 10 MG TAB PO SCH ×3 (02:28→16:24)
[2023-07-21] MEDS: ALBUT/IPRATROP 3MG/0.5MG NEB 3 ML VIAL NEB SCH ×6 (03:09→23:18)
[2023-07-21 07:32] LABS: Hematocrit (blood only) 31.6 % (37.0-47.0); Hemoglobin 8.9 g/dl (12.0-16.0); Mean Corpuscular Hgb Conc 28.2 g/dL (32.0-36.0); Mean Corpuscular Volume 92.4 fL (80.0-100.0); Mean Platelet Volume 10.3 fL (9.4-12.4); Platelet Count 244 K/uL (130-400); RDW Coefficient of Variation 17.3 % (11.5-14.5); RDW Standard Deviation 58.3 fL (36.4-46.3); Red Blood Count 3.42 M/uL (4.20-5.40); White Blood Count 9.16 K/ul (4.8-10.8)
[2023-07-21] MEDS: cefTRIAXone SODIUM 2,000 MG in DEXTROSE 5% 50 ML IV SCH (07:33)
[2023-07-21] MEDS: ATORVASTATIN 40 MG TAB PO SCH (07:37)
[2023-07-21] MEDS: VALSARTAN/SACUBITRIL 26/24MG TAB PO SCH ×2 (07:37→09:00)
[2023-07-21] MEDS: NICOTINE 21 MG/24 HR TDSY TD SCH (07:37)
[2023-07-21] MEDS: APIXABAN 5 MG TABLET PO SCH ×2 (07:37→22:01)
[2023-07-21] MEDS: UMECLIDINIUM/VILANTEROL 62.5/25MCG 7 PUFFS/INHALER INH SCH (07:38)
[2023-07-21] MEDS: PANTOprazole 40 MG TAB PO SCH ×2 (07:38→22:32)
[2023-07-21] MEDS: POLYETHYLENE (MIRALAX) 17 GM PACK PO SCH (07:38)
[2023-07-21] MEDS: FLUTICASONE FUROATE 200MCG 14 PUFFS/INHALER INH SCH (07:38)
[2023-07-21 07:49] LABS: Calcium 6.7 mg/dl (8.6-10.3); Potassium 3.3 mmol/L (3.5-5.1)
[2023-07-21 07:55] LABS: BUN Creatinine Ratio 17.9 (10-20); Creatinine Clr Calc Pharmacy 65.7 ml/min; Est GFR (African American) 82.2 ml/min; Est GFR (Non-African American) 70.9 ml/min
[2023-07-21] MEDS: METOPROLOL SUCC 50MG EXT REL TAB PO SCH ×3 (09:00→12:54)
[2023-07-21] MEDS: FAMOTIDINE 20 MG TAB PO SCH ×2 (09:07→22:01)
[2023-07-21] MEDS: POTASSIUM CHLORIDE CRTAB 20 MEQ TABCR PO SCH (09:19)
[2023-07-21] MEDS: FLUDROCORTISONE ACETATE 0.1 MG TAB PO SCH (10:37)
[2023-07-21] MEDS: AZITHROMYCIN 500 MG in DEXTROSE 5% 250 ML IV SCH (10:46)
[2023-07-21] MEDS: oxyCODONE HCL IR 5 MG TAB (IMMEDIATE RELEASE) PO PRN (16:23)
--- NOTE | 2023-07-21 23:33 | Hospitalist Progress Note ---
Date of Service July 21, 2023 Assessment & Plan (1) SOB (shortness of breath): Plan: Suspect COPD exacerbation, possible PNA. No respiratory distress. No hypoxia -Duoneb q 4 hours -Albuterol q 2 hours PRN -Flutter valve -Continue Trelegy -Azithromycin + Ceftriaxone Patient's blood pressure remains low. WIll monitor response to steroids. will remain on med tele. will hold entresto as discussed with cardiology. (2) GERD (gastroesophageal reflux disease): Plan: -Famotidine 20mg po BID -Protonix 40mg po BID (3) Adrenal insufficiency: Plan: -Continue Florinef -Stress dose Hydrocortisone - 40mg po qAM and 20mg po qPM (4) History of pulmonary embolism: Plan: -Continue Apixaban (5) Hypertension: Plan: -Continue Metoprolol (6) Cardiomyopathy: Plan: -Continue metoprolol -Continue Entresto Admission and Anticipated Discharge Date Admission Date: July 20, 2023 Subjective Patient reports no new symptoms. Review of Systems Review of Systems: All systems reviewed & are unremarkable except as noted in HPI & below Physical Exam Physical Exam: General: patient resting comfortably, NAD, non-toxic in appearance, AA&O x 4 Skin: warm, dry, intact, no rashes or lesions HEENT: NC/AT, PERRL, EOMI, anicteric sclera, conjunctiva without injection, external ear normal to inspection and nontender, nares patent, moist mucus membranes, dentition intact, no oropharyngeal lesions, neck supple, trachea midline, no LAD, no thyromegaly, no JVD Heart: +S1/S2, regular, no m/r/g Lungs: equal air entry bilaterally, no rales/rhonchi, +end expiratory wheezing greater in right lung Abd: +BS, soft, NT/ND, no masses/organomegaly/ascites Ext: warm, 2+ pulses in UE/LE bilaterally, no clubbing/cyanosis or edema Neuro: nonfocal, patient AA&O x 4, speech intact, no facial droop, moving all extremities on command with equal strength 5/5 Results & Data Results & Data Vital Signs (Past 12 Hours) Vital Signs Temp Pulse Pulse Pulse Pulse Resp BP 07/21/23 23:25 37.7 C H 91 H 20 80/52 L 07/21/23 23:18 92 H 18 07/21/23 21:58 90 07/21/23 19:53 37.1 C 81 20 79/53 L 07/21/23 19:33 89 15 07/21/23 15:36 98 H 84/52 L 07/21/23 15:34 94 H 14 07/21/23 15:28 37.1 C 98 H 20 74/52 L 07/21/23 14:58 109 H BP Pulse Ox O2 Del Method FiO2 07/21/23 23:25 97 Room Air 07/21/23 23:18 96 Room Air 07/21/23 21:58 07/21/23 19:53 95 Room Air 07/21/23 19:33 95 Room Air 07/21/23 15:36 07/21/23 15:34 99 Room Air 21 07/21/23 15:28 71/50 L 95 Room Air 07/21/23 14:58 PG Care Time/CCT Total # of Minutes Spent Total Time Spent with Patient: Total time spent is greater than 50% in coordination of care (as documented) at patient's floor/unit and/or counseling patient: Coding Level of Care Code 74474 SUB INP/OBS CARE 2/35MIN Diagnoses SOB (shortness of breath) R06.02 GERD (gastroesophageal reflux disease) K21.9 Adrenal insufficiency E27.40 History of pulmonary embolism Z86.711 Hypertension I10 Cardiomyopathy I42.9
[2023-07-22] MEDS: oxyCODONE HCL IR 5 MG TAB (IMMEDIATE RELEASE) PO PRN ×2 (00:40→16:14)
[2023-07-22] MEDS: ALBUT/IPRATROP 3MG/0.5MG NEB 3 ML VIAL NEB SCH ×6 (02:46→23:08)
[2023-07-22 05:03] LABS: Hematocrit (blood only) 25.2 % (37.0-47.0); Hemoglobin 7.3 g/dl (12.0-16.0); Mean Corpuscular Hemoglobin 25.7 pg (25.0-34.0); Mean Corpuscular Volume 88.7 fL (80.0-100.0); Mean Platelet Volume 10.2 fL (9.4-12.4); Nucleated RBC # (auto) 0.02 K/uL (0.00-0.12); Nucleated RBC % (auto) 0.3 %; Platelet Count 216 K/uL (130-400); RDW Coefficient of Variation 17.1 % (11.5-14.5); RDW Standard Deviation 54.8 fL (36.4-46.3); Red Blood Count 2.84 M/uL (4.20-5.40); White Blood Count 7.87 K/ul (4.8-10.8)
[2023-07-22 05:20] LABS: Albumin Level 2.1 gm/dl (3.4-5.0); BUN Creatinine Ratio 16.5 (10-20); Bilirubin Direct 0.1 mg/dl (0-0.2); Bilirubin,Total 0.2 mg/dl (0.2-1.0); C Reactive Protein 1.68 mg/dl (0-0.5); Calcium 7.1 mg/dl (8.6-10.3); Creatinine Clr Calc Pharmacy 60.6 ml/min; Est GFR (African American) 74.6 ml/min; Est GFR (Non-African American) 64.4 ml/min; Potassium 3.6 mmol/L (3.5-5.1); Total Protein 3.9 gm/dl (6.0-8.3)
[2023-07-22] MEDS: cefTRIAXone SODIUM 2,000 MG in DEXTROSE 5% 50 ML IV SCH (05:30)
[2023-07-22] MEDS: FAMOTIDINE 20 MG TAB PO SCH ×2 (08:29→21:50)
[2023-07-22] MEDS: APIXABAN 5 MG TABLET PO SCH (08:29)
[2023-07-22] MEDS: METOPROLOL SUCC 50MG EXT REL TAB PO SCH (08:29)
[2023-07-22] MEDS: PANTOprazole 40 MG TAB PO SCH ×2 (08:29→21:51)
[2023-07-22] MEDS: HYDROCORTISONE 10 MG TAB PO SCH ×2 (08:30→16:13)
[2023-07-22] MEDS: FLUDROCORTISONE ACETATE 0.1 MG TAB PO SCH (08:30)
[2023-07-22] MEDS: ATORVASTATIN 40 MG TAB PO SCH (08:30)
[2023-07-22] MEDS: POTASSIUM CHLORIDE CRTAB 20 MEQ TABCR PO SCH (08:30)
[2023-07-22] MEDS: NICOTINE 21 MG/24 HR TDSY TD SCH (08:31)
[2023-07-22] MEDS: FLUTICASONE FUROATE 200MCG 14 PUFFS/INHALER INH SCH (08:31)
[2023-07-22] MEDS: UMECLIDINIUM/VILANTEROL 62.5/25MCG 7 PUFFS/INHALER INH SCH (08:31)
[2023-07-22] MEDS: POLYETHYLENE (MIRALAX) 17 GM PACK PO SCH (08:32)
[2023-07-22] MEDS: AZITHROMYCIN 500 MG in DEXTROSE 5% 250 ML IV SCH (10:40)
[2023-07-22 11:07] LABS: Hematocrit (blood only) 24.7 % (37.0-47.0); Hemoglobin 7.4 g/dl (12.0-16.0)
[2023-07-22 11:27] LABS: Ferritin 23.4 ng/ml (8-388)
[2023-07-22] MEDS ORDERED: IRON SUCROSE 300 MG in SODIUM CHLORIDE 0.9% 250 ML IV ONE (17:30)
[2023-07-22 17:41] LABS: Hematocrit (blood only) 25.8 % (37.0-47.0); Hemoglobin 7.7 g/dl (12.0-16.0)
--- NOTE | 2023-07-22 17:51 | Hospitalist Progress Note ---
Date of Service July 22, 2023 Assessment & Plan (1) SOB (shortness of breath): Plan: Suspect COPD exacerbation, possible PNA. No respiratory distress. No hypoxia -Duoneb q 4 hours -Albuterol q 2 hours PRN -Flutter valve -Continue Trelegy -Azithromycin + Ceftriaxone Patient's blood pressure remains low. Hemoglibin is downtrending, will hold steroids, hold eliquis. obtained iron studies which suggest iron def. anemia. will remain on med tele. will hold entresto as discussed with cardiology. Obtain ct chest and ct abd/pelvis: no hematoma noted per radiology. (2) GERD (gastroesophageal reflux disease): Plan: -Famotidine 20mg po BID -Protonix 40mg po BID (3) Adrenal insufficiency: Plan: -Continue Florinef -Stress dose Hydrocortisone - 40mg po qAM and 20mg po qPM (held) (4) History of pulmonary embolism: Plan: -hold Apixaban (5) Hypertension: Plan: -Continue Metoprolol (6) Cardiomyopathy: Plan: -Continue metoprolol -Continue Entresto Admission and Anticipated Discharge Date Admission Date: July 20, 2023 Subjective Patient reports feeling well. SHe denies any dark or bloody stools. NO hematemesis. No SOB. Review of Systems Review of Systems: All systems reviewed & are unremarkable except as noted in HPI & below Physical Exam Physical Exam: General: patient resting comfortably, NAD, non-toxic in appearance, AA&O x 4 Skin: warm, dry, intact, no rashes or lesions HEENT: NC/AT, PERRL, EOMI, anicteric sclera, conjunctiva without injection, external ear normal to inspection and nontender, nares patent, moist mucus membranes, dentition intact, no oropharyngeal lesions, neck supple, trachea midline, no LAD, no thyromegaly, no JVD Heart: +S1/S2, regular, no m/r/g Lungs: equal air entry bilaterally, no rales/rhonchi, +end expiratory wheezing greater in right lung Abd: +BS, soft, NT/ND, no masses/organomegaly/ascites Ext: warm, 2+ pulses in UE/LE bilaterally, no clubbing/cyanosis or edema Neuro: nonfocal, patient AA&O x 4, speech intact, no facial droop, moving all extremities on command with equal strength 5/5 Results & Data Results & Data Vital Signs (Past 12 Hours) Vital Signs Temp Pulse Pulse Pulse Resp BP BP 07/22/23 15:59 18 07/22/23 15:38 37.3 C 83 18 91/59 L 07/22/23 15:15 101 H 07/22/23 12:05 36.7 C 90 94/63 L 07/22/23 07:30 07/22/23 11:17 88 16 07/22/23 08:11 36.6 C 91 H 12 108/69 07/22/23 07:23 16 07/22/23 07:16 81 Pulse Ox O2 Del Method 07/22/23 15:59 95 Room Air 07/22/23 15:38 97 Room Air 07/22/23 15:15 07/22/23 12:05 97 Room Air 07/22/23 07:30 Room Air 07/22/23 11:17 94 Room Air 07/22/23 08:11 98 Room Air 07/22/23 07:23 98 Room Air 07/22/23 07:16 PG Care Time/CCT Total # of Minutes Spent Total Time Spent with Patient: Total time spent is greater than 50% in coordination of care (as documented) at patient's floor/unit and/or counseling patient: Coding Level of Care Code 97217 SUB INP/OBS CARE 3/50MIN Diagnoses SOB (shortness of breath) R06.02 GERD (gastroesophageal reflux disease) K21.9 Adrenal insufficiency E27.40 History of pulmonary embolism Z86.711 Hypertension I10 Cardiomyopathy I42.9 Time Spent (min) 50
--- NOTE | 2023-07-22 19:24 | CT Scan Report ---
CT SCAN OF THE CHEST, ABDOMEN, AND PELVIS WITHOUT IV CONTRAST CLINICAL HISTORY: Anemia. COMPARISON STUDY: Chest CT dated 09/15/2022. Chest x-ray dated 07/19/2023. Abdominal CT dated 2. CT scan of the right hip dated 09/17/2022. TECHNIQUE: Unenhanced CT scan of the chest, abdomen, and pelvis was performed from the thoracic inlet to the proximal femora. Images are reviewed in the axial, sagittal, and coronal planes. IV contrast was not administered as per the referring clinician. Note that the examinations are significantly sub optimal without oral and IV contrast. A dose lowering technique was utilized adhering to the princip les of MARY LOU. CT DOSE: 1751.02 mGy.cm FINDINGS: CHEST: Thyroid: Imaged portions of the thyroid gland are normal in size and attenuation. Thoracic aorta: There is atherosclerotic calcification of the thoracic aorta, which is normal in francisco deann and demonstrates standard 3-vessel arch anatomy. Heart: The heart is normal in size and without pericardial effusion. The coronary arteries density ca lcified. There is diminished attenuation of the cardiac blood pool as compared to the myocardium sugg esting anemia. There is lipomatous hypertrophy of the interatrial septum. Lungs and pleural spaces: There is mild emphysema. There is trace right pleural effusion and dependen t atelectasis. No airspace consolidation is seen typical for pneumonia. There are scattered calcified granulomas. Secretions are noted in the distal trachea and the right mainstem bronchus. The 3 mm lef t lower lobe nodule seen on image #128 is unchanged. Mediastinum: There is no mediastinal lymphadenopathy. Yuliet: Not well assessed without contrast. Axillae: There is no axillary lymphadenopathy. Bony thorax: The skeletal structures are osteopenic. Degenerative change and hyperkyphosis is noted i n the thoracic spine. No lytic or blastic lesions are identified. Arthritic change is seen in the leola ulders. ABDOMEN AND PELVIS: Liver: The unenhanced liver is normal in size, contour, and attenuation. There is minimal intrahepati c biliary ductal dilatation. Gallbladder: Surgically absent noting clips in the gallbladder fossa. Choledocholithiasis is noted wi th a 10 mm calcified gallstone in the common bile duct seen on axial image #101. Spleen: Normal in size and attenuation. Pancreas: The unenhanced pancreas is atrophic and grossly unremarkable. Adrenal glands: Unremarkable. Kidneys: The unenhanced kidneys demonstrate mild cortical atrophy and are without hydronephrosis. The re is a punctate nonobstructing left renal calculi. No right renal calculi are identified and no uret eral stone is seen. There is no evidence of contour deforming mass lesion. Abdominal vasculature: The abdominal aorta is normal in course and caliber nothing moderate to advanc ed atherosclerotic calcification. Stomach and bowel: There is a small hiatal hernia. There is advanced colonic diverticulosis without C T evidence of acute diverticulitis. No bowel obstruction is seen. There is moderate colonic fecal ret ention. No bowel obstruction is seen. The appendix is not identified and reported surgically absent. Peritoneum/retroperitoneum: There is no retroperitoneal hematoma. There is no intraperitoneal free ai r or abdominal ascites. Lymphadenopathy: None. Pelvic viscera: The bladder is distended but otherwise normal in appearance. The uterus and adnexa ar e normal as visualized. Skeletal structures: The skeletal structures are heterogeneously osteopenic. There is [id number] e lumbosacral spondylosis. The right femoral arthroplasty has been removed and there is chronic defor mity of the right proximal femoral shaft and acetabulum. Soft tissue infiltration in the right upper thigh and around the right hip joint is No lytic or blastic lesions are seen. 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 Sclerotic changes noted in the sacroiliac joints . Soft tissues: No soft tissue hematomas identified. Soft tissue edema is present in the flank bilatera lly. IMPRESSION: 1. Emphysema. 2. Trace right pleural effusion. 3. There is no airspace consolidation typical for pneumonia. 4. No acute infectious or inflammatory findings are identified in the abdomen or pelvis. 5. The patient is status post cholecystectomy. Choledocholithiasis is noted. 6. The right hip arthroplasty has been removed and there is soft tissue infiltration throughout the r ight upper thigh. Correlate clinically. 7. Advanced colonic diverticulosis without CT evidence of acute diverticulitis. 8. No hematoma is identified. 9. Additional findings as above. ACT 112: Negative or not required by law. Electronically signed by: Jp Luna M.D. 07/22/2023 7:22 PM
[2023-07-23] MEDS: ALBUT/IPRATROP 3MG/0.5MG NEB 3 ML VIAL NEB SCH ×6 (02:19→23:17)
[2023-07-23 05:19] LABS: Hematocrit (blood only) 24.2 % (37.0-47.0); Hemoglobin 7.2 g/dl (12.0-16.0); Mean Corpuscular Hemoglobin 26.6 pg (25.0-34.0); Mean Corpuscular Hgb Conc 29.8 g/dL (32.0-36.0); Mean Corpuscular Volume 89.3 fL (80.0-100.0); Mean Platelet Volume 10.4 fL (9.4-12.4); Platelet Count 208 K/uL (130-400); RDW Coefficient of Variation 17.1 % (11.5-14.5); Red Blood Count 2.71 M/uL (4.20-5.40); White Blood Count 10.54 K/ul (4.8-10.8)
[2023-07-23 05:39] LABS: BUN Creatinine Ratio 18.8 (10-20); Calcium 7.1 mg/dl (8.6-10.3); Est GFR (African American) 87.2 ml/min; Est GFR (Non-African American) 75.2 ml/min; Potassium 3.7 mmol/L (3.5-5.1)
[2023-07-23] MEDS: cefTRIAXone SODIUM 2,000 MG in DEXTROSE 5% 50 ML IV SCH (05:59)
[2023-07-23] MEDS: FLUTICASONE FUROATE 200MCG 14 PUFFS/INHALER INH SCH (09:18)
[2023-07-23] MEDS: FAMOTIDINE 20 MG TAB PO SCH ×2 (09:18→21:22)
[2023-07-23] MEDS: NICOTINE 21 MG/24 HR TDSY TD SCH (09:18)
[2023-07-23] MEDS: UMECLIDINIUM/VILANTEROL 62.5/25MCG 7 PUFFS/INHALER INH SCH (09:18)
[2023-07-23] MEDS: PANTOprazole 40 MG TAB PO SCH ×2 (09:18→21:22)
[2023-07-23] MEDS: FLUDROCORTISONE ACETATE 0.1 MG TAB PO SCH (09:19)
[2023-07-23] MEDS: METOPROLOL SUCC 50MG EXT REL TAB PO SCH (09:19)
[2023-07-23] MEDS: ATORVASTATIN 40 MG TAB PO SCH (09:19)
[2023-07-23] MEDS: POLYETHYLENE (MIRALAX) 17 GM PACK PO SCH (09:20)
[2023-07-23] MEDS: oxyCODONE HCL IR 5 MG TAB (IMMEDIATE RELEASE) PO PRN ×2 (09:25→15:37)
[2023-07-23] MEDS: POTASSIUM CHLORIDE CRTAB 20 MEQ TABCR PO SCH (09:25)
--- NOTE | 2023-07-23 10:14 | Gastrointestinal Consultation ---
Date of Consultation July 23, 2023 Assessment & Plan (1) Gastric ulcer: (2) Nausea and vomiting: (3) Anemia: Plan Patient is a 68 y.o. female with a known history of gastric ulcer admitted with n/v, shortness of breath and worsened anemia. 1. NPO after midnight. 2. EGD tomorrow with Dr. Bain for further evaluation. 3. Continue Pantoprazole 40 mg BID. 4. Further recommendations pending results of testing. Thank you for allowing us to participating in the care of this patient. If you have any questions or concerns, please do not hesitate to contact us. Supervising Physician Co-Signing Physician Notes Agree with MELYSSA Humphries as above Abd: Soft, tender, ND, +BS Eating dinner tray without difficulty Continue current therapy and supportive care Proceed with EGD in the AM History of Present Illness Reason for Consultation: Worsening anemia Requesting Physician: Dr. Steele Attending Physician: Alfredo Steele History of Present Illness Patient is a 68 y.o. female with a history of COPD, GERD, Menieres disease, carotid artery stenosis, CHF, and PUD diagnosed with gastric ulcers via EGD by [facility] on 04/05. She was recommended to remain on BID PPI at her follow up visit with Jacinta Izaguirre PA-C on 04/12 although she states she stopped the medication and has been off Pantoprazole for several months. Sine that time, she endorses intermittent bilateral upper quadrant abdominal pain "that just comes in waves". Reports associated nausea with vomiting but denies any overt GIB symptoms such as melena, hematochezia or hematemesis. No aspirin or NSAID use. Hemoglobin on 07/19 was noted to be 9.4 and has dropped to 7.2 today. She has been tolerating her diet since admission. Resumed on Pantoprazole 40 mg BID. Allergies Allergy/AdvReac Type Severity Reaction Status Date / Time No Known Allergies Allergy Verified 05/08/23 13:40 Home Medications Medication Instructions Recorded Confirmed Type naloxone 4 mg/actuation nasal 4 mg intranasal DIRECTED PRN 06/13/21 07/19/23 History spray (Narcan) OVERSEDATION acetaminophen 325 mg tablet 650 mg PO Q6H PRN pain #30 tabs 10/04/22 07/19/23 Rx furosemide 40 mg tablet 40 mg PO BID #60 tabs 10/23/22 07/19/23 Rx incontinence pad, liner, disp #156 ea 02/13/23 07/19/23 Rx hydrocortisone 10 mg tablet See Rx Instructions .Route 03/21/23 07/19/23 Rx .COMPLEX #45 tabs Medical Thc 1 dose inhalation DAILY 03/28/23 07/19/23 History fludrocortisone 0.1 mg tablet 0.1 mg PO QAM adrenal insufficiency 03/28/23 05/15/23 History metoprolol succinate 100 mg 100 mg PO QAM 03/28/23 07/19/23 History tablet,extended release 24 hr potassium chloride 20 mEq 20 meq PO QAM 03/28/23 07/19/23 History tablet,extended release famotidine 20 mg tablet 20 mg PO BID #90 tabs 04/10/23 07/19/23 Rx pantoprazole 40 mg tablet,delayed 40 mg PO BID #90 tabs 05/14/23 07/19/23 Rx release albuterol sulfate 90 mcg/actuation 2 inh inhalation Q4H PRN shortness 05/22/23 07/19/23 Rx aerosol inhaler (ProAir HFA) of breath or wheezing #18 grams albuterol sulfate 2.5 mg/3 mL 2.5 mg (3 mL) inhalation QID PRN 05/24/23 07/19/23 Rx (0.083 %) solution for nebulization shortness of breath or wheezing #180 mL fluticasone fur. 200 mcg-umeclid 1 inh inhalation DAILY #60 ea 05/24/23 07/19/23 Rx 62.5 mcg-vilant 25 mcg inhalat.powder (Trelegy Ellipta) prednisone 20 mg tablet 20 mg PO BID 5 days #10 tabs 05/24/23 07/19/23 Rx hydrocortisone 20 mg tablet 40 mg PO BID PRN see specific 06/07/23 07/19/23 Rx directions #90 tabs ondansetron 4 mg disintegrating 4 mg PO Q6H PRN NAUSEA/VOMITING 07/06/23 07/19/23 Rx tablet #20 tabs oxycodone 10 mg tablet 10 mg PO Q6H PRN pain #139 tabs 07/06/23 07/19/23 Rx atorvastatin 40 mg tablet 40 mg PO QAM #90 tabs 07/12/23 07/19/23 Rx apixaban 5 mg tablet 5 mg PO BID #60 tabs 07/16/23 07/19/23 Rx empagliflozin 10 mg tablet 10 mg PO QAM #90 tabs 07/16/23 07/19/23 Rx (Jardiance) azithromycin 500 mg tablet 500 mg PO DAILY #1 tab 07/20/23 Rx sacubitril 24 mg-valsartan 26 mg 1 tab PO BID #180 tabs 07/23/23 Rx tablet (Entresto) Patient History Medical History (HFpEF) heart failure with preserved ejection fraction Acute renal failure Adrenal insufficiency follows with [facility] Endocrinology Asthma PT STATES TAKES RESCUE INHALER DAILY C. difficile enteritis hx - no recent episodes Cardiomyopathy Carotid stenosis, left S/P L CEA (02/18/20) (Prior to CEA patient had 80% LICA stenosis ) Cerebral aneurysm Per records, pt unaware No significant aneurysm noted with head CTA and brain MRI from 01/2020 Chronic heart failure with preserved ejection fraction CKD (chronic kidney disease) stage III Continuous tobacco abuse CVA (cerebral vascular accident) CVA 02/11/20- no residual effects, follows with [facility], patient was on plavix until ~1 month after left CEA surgery, now on ASA 81mg Depression with anxiety Edema hx - doing well currently Eosinophilic esophagitis GERD (gastroesophageal reflux disease) History of COVID-19 tested positive 10/2022 at [facility] -- fatigue, weakness, lethargy, chills/fever History of Meniere's disease History of MTHFR mutation per medical records -- pt unaware History of prediabetes HGBA1C 6.1% on 01/28/21 History of revision of total replacement of right hip joint 03/25/21 - [facility]; explantation old hardware, wound vac placement. History of septic shock 03/2021 - due to septic R hip; 04/2021 - again due to septic R hip - hospitalized [facility] each admission. Pseudomonas, proteus, oj alb icans. 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 uses wheelchair, able to stand and pivot Osteoarthritis Paroxysmal atrial fibrillation hx -> follows with Dr. Dottie Pulmonary emboli ~2020. pt unsure why she had the blood clot. treated with medication Pulmonary hypertension hx -- pt unaware RBBB SOB (shortness of breath) Type 2 diabetes mellitus pt denies UTI (urinary tract infection) hx VRE infection (vancomycin resistant Enterococcus) pt unaware -- per medical record dx 2021 at [facility] (urine) Weight loss, unintentional for the last 2 years -> has lost about 70lbs. Surgical History H/O carotid endarterectomy Left CEA: 02/18/20: Grade view 1 with head lift, MAC#3, ETT 7.0 at [facility] History of appendectomy History of bilateral tubal ligation History of brain surgery ~2014 ([facility]) History of History of cataract surgery R/L History of section x1 History of cholecystectomy History of colonoscopy History of esophagogastroduodenoscopy (EGD) History of hip surgery removal of the right hip joint replacement 01/2023 d/t chronic infection. History of incision and drainage right hip - multiple I/D's, 03/2021-04/2021; [facility]. History of tonsillectomy History of tooth extraction History of total hip arthroplasty RT> with repair S/P carotid endarterectomy Status post revision of total hip replacement (~01/2021) Family History Mother Diabetes Family history of diabetes mellitus Sister Diabetes Family history of diabetes mellitus Arterial thrombosis Amputation of leg Father Heart disease Lung disease Other No family history of adverse response to anesthesia Denies family history of Ovarian cancer Prostate cancer Myocardial infarction Breast cancer Colorectal cancer Social History Smoking Status: Current every day smoker Tobacco Type: Cigarettes Age Started Using Tobacco: 17; Age Quit Using Tobacco: 65; packs per day: 1; Cigarettes Per Day: 10 to 15 a day. Sometimes a pack a day. 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 How many Children do You have: 2 How many Children do You have Comment: 1 child from suicide Feels Safe at Home: Yes Childhood Exposure to Second-Hand Smoke: Yes Diet: regular Dental Care, Regularly: No Physical Activity Frequency: Does not Exercise Seatbelt Use: always Sunscreen Use: No Assistive Devices: Wheelchair Review of Systems Constitutional: no problem reported Respiratory: no cough and no dyspnea Cardiovascular: no chest pain and no palpitations Gastrointestinal: as per Subjective / HPI Physical Exam Constitutional: WD/WN, vitals as above Eyes: EOM intact bilaterally Neck: normal visual inspection Respiratory: normal respiratory effort, lungs clear to auscultation Cardiovascular: Rate/Rhythm: regular rate and regular rhythm Gastrointestinal (Abdomen): Inspection/Auscultation: normal bowel sounds and + significant pannus Percussion/Palpation: abdomen soft; abdomen nontender, no guarding and abdomen not rigid Skin: no rashes, warm and dry Psychiatric: A+Ox3, euthymic affect Results & Data Vital Signs (Past 12 Hours) Vital Signs Temp Pulse Pulse Resp BP Pulse Ox O2 Del Method 07/23/23 07:52 77 18 97 Room Air 07/23/23 07:47 37 C 68 18 112/73 97 Room Air 07/23/23 02:43 36.8 C 68 18 119/77 97 Room Air 07/22/23 22:36 82 07/22/23 22:31 36.4 C L 84 18 142/78 H 97 Room Air 07/22/23 23:11 82 18 96 Room Air Laboratory Results Laboratory Results WBC 10.54 K/ul (4.8-10.8) 07/23/23 04:56 RBC 2.71 M/uL (4.20-5.40) L 07/23/23 04:56 Hgb 7.2 g/dl (12.0-16.0) L 07/23/23 04:56 Hct 24.2 % (37.0-47.0) L 07/23/23 04:56 MCV 89.3 fL (80.0-100.0) 07/23/23 04:56 MCH 26.6 pg (25.0-34.0) 07/23/23 04:56 MCHC 29.8 g/dL (32.0-36.0) L 07/23/23 04:56 RDW Std Deviation 55.0 fL (36.4-46.3) H 07/23/23 04:56 RDW Coeff of Crow 17.1 % (11.5-14.5) H 07/23/23 04:56 Plt Count 208 K/uL (130-400) 07/23/23 04:56 MPV 10.4 fL (9.4-12.4) 07/23/23 04:56 Immature Gran % (Auto) 0.9 % 07/19/23 03:22 Neut % (Auto) 77.2 % 07/19/23 03:22 Lymph % (Auto) 16.3 % 07/19/23 03:22 Jackson % (Auto) 5.5 % 07/19/23 03:22 Eos % (Auto) 0.0 % 07/19/23 03:22 Baso % (Auto) 0.1 % 07/19/23 03:22 Neut # (Auto) 9.92 K/uL (1.40-6.50) H 07/19/23 03:22 Lymph # (Auto) 2.09 K/uL (1.20-3.40) 07/19/23 03:22 Jackson # (Auto) 0.70 K/uL (0.11-0.59) H 07/19/23 03:22 Eos # (Auto) 0.00 K/uL (0.00-0.50) 07/19/23 03:22 Baso # (Auto) 0.01 K/uL (0.00-0.20) 07/19/23 03:22 Immature Gran # (Auto) 0.12 K/uL (0.01-0.20) 07/19/23 03:22 Absolute Nucleated RBC 0.02 K/uL (0.00-0.12) 07/22/23 04:45 Nucleated RBC % (auto) 0.3 % 07/22/23 04:45 Polychromasia 1+ 07/19/23 03:22 Hypochromasia Present 07/19/23 03:22 Basophilic Stippling 1+ 07/19/23 03:22 Echinocytes 2+ 07/19/23 03:22 Acanthocytes (Spur) 2+ 07/19/23 03:22 PT 10.3 Seconds (9.0-12.0) 07/19/23 03:22 INR 0.9 (0.9-1.1) 07/19/23 03:22 APTT 25.0 Seconds (21.0-31.0) 07/19/23 03: PTT Ratio 0.9 07/19/23 03:22 VBG pH 7.35 (7.36-7.41) L 07/19/23 03:22 VBG pCO2 44 mmHg (38-50) 07/19/23 03:22 VBG pO2 26 mmHg 07/19/23 03:22 VBG HCO3 24 mmol/L 07/19/23 03:22 VBG O2 Saturation < 60.0 % 07/19/23 03:22 VBG Base Excess -1.5 mEq/L 07/19/23 03:22 Sodium 141 mmol/L (136-145) 07/23/23 04:56 Potassium 3.7 mmol/L (3.5-5.1) 07/23/23 04:56 Chloride 111 mmol/L (98-107) H 07/23/23 04:56 Carbon Dioxide 28 mmol/L (21-32) 07/23/23 04:56 Anion Gap 2 (3-11) L 07/23/23 04:56 BUN 15 mg/dl (6-23) 07/23/23 04:56 Creatinine 0.80 mg/dl (0.6-1.2) 07/23/23 04:56 Est Cr Clr Drug Dosing 69.0 ml/min 07/23/23 04:56 Est GFR ( Amer) 87.2 ml/min 07/23/23 04:56 Est GFR (Non-Af Amer) 75.2 ml/min 07/23/23 04:56 BUN/Creatinine Ratio 18.8 (10-20) 07/23/23 04:56 Glucose 131 mg/dl (70-99(Fasting)) H 07/23/23 04:56 POC Glucose 102 mg/dl (70-99) H 07/23/23 08:45 Lactate 1.2 mmol/L (0.4-2.0) 07/19/23 04:35 Calcium 7.1 mg/dl (8.6-10.3) L 07/23/23 04:56 Magnesium 2.0 mg/dl (1.7-2.4) 07/19/23 03:22 Iron 14 mcg/dl (35-150) L 07/22/23 04:45 Iron Cancelled 07/22/23 04:45 TIBC 173 mcg/dl (250-450) L 07/22/23 04:45 TIBC Cancelled 07/22/23 04:45 Unsaturated IBC 159 mcg/dl (155-355) 07/22/23 04:45 Unsaturated IBC Cancelled 07/22/23 04:45 Transferrin % Sat 8 % (15-50) L 07/22/23 04:45 Transferrin % Sat Cancelled 07/22/23 04:45 Ferritin 23.4 ng/ml (8-388) 07/22/23 04:45 Ferritin Cancelled 07/22/23 04:45 Total Bilirubin 0.2 mg/dl (0.2-1.0) 07/22/23 04:45 Direct Bilirubin 0.1 mg/dl (0-0.2) 07/22/23 04:45 AST 10 U/L (13-39) L 07/22/23 04:45 ALT 11 U/L (7-52) 07/22/23 04:45 Alkaline Phosphatase 48 U/L (34-104) 07/22/23 04:45 Troponin I High Sens 19.2 pg/ml (0-14) H 07/19/23 03:22 C-Reactive Protein 1.68 mg/dl (0-0.5) H 07/22/23 04:45 B-Natriuretic Peptide 677 pg/ml (0-100) H 07/19/23 03:22 Total Protein 3.9 gm/dl (6.0-8.3) L 07/22/23 04:45 Albumin 2.1 gm/dl (3.4-5.0) L 07/22/23 04:45 Globulin 2.0 gm/dl (2.5-4.0) L 07/19/23 03:22 Albumin/Globulin Ratio 1.1 (0.9-2) 07/19/23 03:22 Procalcitonin < 0.05 ng/ml (0-0.5) 07/22/23 04:45 Cortisol AM Sample 5.54 mcg/dl (6.2-22.6) L 07/21/23 07:19 SARS-CoV-2 (PCR) NEGATIVE (Negative) 07/19/23 03:15 Influenza Type A (PCR) Negative (Neg) 07/19/23 03:15 Influenza Type B (PCR) Negative (Neg) 07/19/23 03:15 RSV (RT-PCR) Negative (Neg) 07/19/23 03:15 Impressions Chest X-Ray 07/19/23 03:04 XR chest 1V portable CLINICAL HISTORY: Dyspnea TECHNIQUE: Single frontal radiograph of the chest was obtained. Comparison: Comparison is made to chest radiograph 11/09/2022 FINDINGS: No lines and tubes are seen. The cardiomediastinal silhouette is normal. The lungs are clear. No evidence of pleural effusion or pneumothorax. IMPRESSION: No acute abnormalities and in particular no radiographic evidence of pneumonia. ACT 112: Negative or not required by law. Electronically signed by: Simba Mcclain M.D. 07/19/2023 8:47 AM KUB X-Ray 07/19/23 16:17 KUB CLINICAL HISTORY: Constipation. FINDINGS: 2 AP, portable, supine abdominal radiographs are compared to study dated 11/05/2021. Correlation is made with abdominal CT dated 11/03/2021. Cholecystectomy clips are seen in the right upper quadrant. There is moderate constipation. There is mild gaseous distention of the small bowel loops without radiographic evidence of high-grade obstruction. No evidence of intraperitoneal free air is identified on these supine images. There are no abnormal abdominal calcifications. Phleboliths are seen in the pelvis. The skeletal structures are osteopenic. A right hip arthroplasty has been removed and there is dislocation of the right proximal femur. The lung bases are clear as imaged. IMPRESSION: 1. Gaseous distention of the small bowel loops without radiographic evidence of high-grade obstruction. 2. Moderate constipation. 3. A right hip arthroplasty has been removed and there is dislocation of the right proximal femur. Electronically signed by: Jp Luna M.D. 07/19/2023 7:56 PM Abdomen/Pelvis CT 07/22/23 16:59 CT SCAN OF THE CHEST, ABDOMEN, AND PELVIS WITHOUT IV CONTRAST CLINICAL HISTORY: Anemia. COMPARISON STUDY: Chest CT dated 09/15/2022. Chest x-ray dated 07/19/2023. Abdominal CT dated 11/03/2021. CT scan of the right hip dated 09/17/2022. TECHNIQUE: Unenhanced CT scan of the chest, abdomen, and pelvis was performed from the thoracic inlet to the proximal femora. Images are reviewed in the axial, sagittal, and coronal planes. IV contrast was not administered as per the referring clinician. Note that the examinations are significantly suboptimal without oral and IV contrast. A dose lowering technique was utilized adhering to the principles of ALARA. CT DOSE: 1751.02 mGy.cm FINDINGS: CHEST: Thyroid: Imaged portions of the thyroid gland are normal in size and attenuation. Thoracic aorta: There is atherosclerotic calcification of the thoracic aorta, which is normal in caliber and demonstrates standard 3-vessel arch anatomy. Heart: The heart is normal in size and without pericardial effusion. The coronary arteries density calcified. There is diminished attenuation of the cardiac blood pool as compared to the myocardium suggesting anemia. There is lipomatous hypertrophy of the interatrial septum. Lungs and pleural spaces: There is mild emphysema. There is trace right pleural effusion and dependent atelectasis. No airspace consolidation is seen typical for pneumonia. There are scattered calcified granulomas. Secretions are noted in the distal trachea and the right mainstem bronchus. The 3 mm left lower lobe nodule seen on image #128 is unchanged. Mediastinum: There is no mediastinal lymphadenopathy. Yuliet: Not well assessed without contrast. Axillae: There is no axillary lymphadenopathy. Bony thorax: The skeletal structures are osteopenic. Degenerative change and hyperkyphosis is noted in the thoracic spine. No lytic or blastic lesions are identified. Arthritic change is seen in the shoulders. ABDOMEN AND PELVIS: Liver: The unenhanced liver is normal in size, contour, and attenuation. There is minimal intrahepatic biliary ductal dilatation. Gallbladder: Surgically absent noting clips in the gallbladder fossa. Choledocholithiasis is noted with a 10 mm calcified gallstone in the common bile duct seen on axial image #101. Spleen: Normal in size and attenuation. Pancreas: The unenhanced pancreas is atrophic and grossly unremarkable. Adrenal glands: Unremarkable. Kidneys: The unenhanced kidneys demonstrate mild cortical atrophy and are without hydronephrosis. There is a punctate nonobstructing left renal calculi. No right renal calculi are identified and no ureteral stone is seen. There is no evidence of contour deforming mass lesion. Abdominal vasculature: The abdominal aorta is normal in course and caliber nothing moderate to advanced atherosclerotic calcification. Stomach and bowel: There is a small hiatal hernia. There is advanced colonic diverticulosis without CT evidence of acute diverticulitis. No bowel obstruction is seen. There is moderate colonic fecal retention. No bowel obstruction is seen. The appendix is not identified and reported surgically absent. Peritoneum/retroperitoneum: There is no retroperitoneal hematoma. There is no intraperitoneal free air or abdominal ascites. Lymphadenopathy: None. Pelvic viscera: The bladder is distended but otherwise normal in appearance. The uterus and adnexa are normal as visualized. Skeletal structures: The skeletal structures are heterogeneously osteopenic. There is [id number] lumbosacral spondylosis. The right femoral arthroplasty has been removed and there is chronic deformity of the right pr oximal femoral shaft and acetabulum. Soft tissue infiltration in the right upper thigh and around the right hip joint is No lytic or blastic lesions are seen. 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 Sclerotic changes noted in the sacroiliac joints. Soft tissues: No soft tissue hematomas identified. Soft tissue edema is present in the flank bilaterally. IMPRESSION: 1. Emphysema. 2. Trace right pleural effusion. 3. There is no airspace consolidation typical for pneumonia. 4. No acute infectious or inflammatory findings are identified in the abdomen or pelvis. 5. The patient is status post cholecystectomy. Choledocholithiasis is noted. 6. The right hip arthroplasty has been removed and there is soft tissue infiltration throughout the right upper thigh. Correlate clinically. 7. Advanced colonic diverticulosis without CT evidence of acute diverticulitis. 8. No hematoma is identified. 9. Additional findings as above. ACT 112: Negative or not required by law. Electronically signed by: Jp Luna M.D. 07/22/2023 7:[address] 07/22/23 16:59 CT SCAN OF THE CHEST, ABDOMEN, AND PELVIS WITHOUT IV CONTRAST CLINICAL HISTORY: Anemia. COMPARISON STUDY: Chest CT dated 09/15/2022. Chest x-ray dated 07/19/2023. Abdominal CT dated 11/03/2021. CT scan of the right hip dated 09/17/2022. TECHNIQUE: Unenhanced CT scan of the chest, abdomen, and pelvis was performed from the thoracic inlet to the proximal femora. Images are reviewed in the axial, sagittal, and coronal planes. IV contrast was not administered as per the referring clinician. Note that the examinations are significantly suboptimal without oral and IV contrast. A dose lowering technique was utilized adhering to the principles of ALARA. CT DOSE: 1751.02 mGy.cm FINDINGS: CHEST: Thyroid: Imaged portions of the thyroid gland are normal in size and attenuation. Thoracic aorta: There is atherosclerotic calcification of the thoracic aorta, which is normal in caliber and demonstrates standard 3-vessel arch anatomy. Heart: The heart is normal in size and without pericardial effusion. The coronary arteries density calcified. There is diminished attenuation of the cardiac blood pool as compared to the myocardium suggesting anemia. There is lipomatous hypertrophy of the interatrial septum. Lungs and pleural spaces: There is mild emphysema. There is trace right pleural effusion and dependent atelectasis. No airspace consolidation is seen typical for pneumonia. There are scattered calcified granulomas. Secretions are noted in the distal trachea and the right mainstem bronchus. The 3 mm left lower lobe nodule seen on image #128 is unchanged. Mediastinum: There is no mediastinal lymphadenopathy. Yuliet: Not well assessed without contrast. Axillae: There is no axillary lymphadenopathy. Bony thorax: The skeletal structures are osteopenic. Degenerative change and hyperkyphosis is noted in the thoracic spine. No lytic or blastic lesions are identified. Arthritic change is seen in the shoulders. ABDOMEN AND PELVIS: Liver: The unenhanced liver is normal in size, contour, and attenuation. There is minimal intrahepatic biliary ductal dilatation. Gallbladder: Surgically absent noting clips in the gallbladder fossa. Choledocholithiasis is noted with a 10 mm calcified gallstone in the common bile duct seen on axial image #101. Spleen: Normal in size and attenuation. Pancreas: The unenhanced pancreas is atrophic and grossly unremarkable. Adrenal glands: Unremarkable. Kidneys: The unenhanced kidneys demonstrate mild cortical atrophy and are without hydronephrosis. There is a punctate nonobstructing left renal calculi. No right renal calculi are identified and no ureteral stone is seen. There is no evidence of contour deforming mass lesion. Abdominal vasculature: The abdominal aorta is normal in course and caliber nothing moderate to advanced atherosclerotic calcification. Stomach and bowel: There is a small hiatal hernia. There is advanced colonic diverticulosis without CT evidence of acute diverticulitis. No bowel obstruction is seen. There is moderate colonic fecal retention. No bowel obstruction is seen. The appendix is not identified and reported surgically absent. Peritoneum/retroperitoneum: There is no retroperitoneal hematoma. There is no intraperitoneal free air or abdominal ascites. Lymphadenopathy: None. Pelvic viscera: The bladder is distended but otherwise normal in appearance. The uterus and adnexa are normal as visualized. Skeletal structures: The skeletal structures are heterogeneously osteopenic. There is [id number] lumbosacral spondylosis. The right femoral arthroplasty has been removed and there is chronic deformity of the right proximal femoral shaft and acetabulum. Soft tissue infiltration in the right upper thigh and around the right hip joint is No lytic or blastic lesions are seen. 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 Sclerotic changes noted in the sacroiliac joints. Soft tissues: No soft tissue hematomas identified. Soft tissue edema is present in the flank bilaterally. IMPRESSION: 1. Emphysema. 2. Trace right pleural effusion. 3. There is no airspace consolidation typical for pneumonia. 4. No acute infectious or inflammatory findings are identified in the abdomen or pelvis. 5. The patient is status post cholecystectomy. Choledocholithiasis is noted. 6. The right hip arthroplasty has been removed and there is soft tissue infiltration throughout the right upper thigh. Correlate clinically. 7. Advanced colonic diverticulosis without CT evidence of acute diverticulitis. 8. No hematoma is identified. 9. Additional findings as above. ACT 112: Negative or not required by law. Electronically signed by: Jp Luna M.D. 07/22/2023 7:22 PM PG Care Time/CCT Total # of Minutes Spent Total Time Spent with Patient: Total time spent is greater than 50% in coordination of care (as documented) at patient's floor/unit and/or counseling patient: Coding Level of Care Code 48069 INT INP/OBS CARE 3/75MIN Diagnoses Gastric ulcer K25.9 Nausea and vomiting R11.2 Anemia D64.9 Anemia type: unspecified type (3) Anemia Anemia type: unspecified type Qualified Code(s): D64.9 - Anemia, unspecified
[2023-07-23] MEDS: AZITHROMYCIN 500 MG in DEXTROSE 5% 250 ML IV SCH (10:15)
[2023-07-23 19:27] LABS: Hematocrit (blood only) 26.8 % (37.0-47.0); Hemoglobin 7.9 g/dl (12.0-16.0)
[2023-07-23] MEDS: ACETAMINOPHEN 325 MG TAB PO PRN (21:27)
[2023-07-24] MEDS: ALBUT/IPRATROP 3MG/0.5MG NEB 3 ML VIAL NEB SCH ×4 (03:15→20:07)
--- NOTE | 2023-07-24 07:36 | Hospitalist Progress Note ---
Date of Service July 23, 2023 Assessment & Plan (1) SOB (shortness of breath): Plan: Suspect COPD exacerbation, possible PNA. No respiratory distress. No hypoxia -Duoneb q 4 hours -Albuterol q 2 hours PRN -Flutter valve -Continue Trelegy -Azithromycin + Ceftriaxone (completed 5 days) -Patient initially treated for COPD exacerbation however, given her worsening anemia, perhaps this was main contributing factor for her SOB. Patient's blood pressure remains low. Hemoglibin is downtrending, will hold steroids, hold eliquis. obtained iron studies which suggest iron def. anemia. will remain on med tele. will hold entresto as discussed with cardiology. Obtain ct chest and ct abd/pelvis: no hematoma noted per radiology. Hemoglbin remained over 7 on 07/23. Obtained consent for blood transfusion, will hold transfusion until hemoglobin is below 7. consulted GI: plan for scope on 07/24 (2) GERD (gastroesophageal reflux disease): Plan: -Famotidine 20mg po BID -Protonix 40mg po BID (3) Adrenal insufficiency: Plan: -Continue Florinef -Stress dose Hydrocortisone - 40mg po qAM and 20mg po qPM (held) due to anemia (4) History of pulmonary embolism: Plan: -hold Apixaban (5) Hypertension: Plan: -Continue Metoprolol (6) Cardiomyopathy: Plan: -Continue metoprolol -Continue Entresto Admission and Anticipated Discharge Date Admission Date: July 20, 2023 Subjective Patient reports no new symptoms. Review of Systems Review of Systems: All systems reviewed & are unremarkable except as noted in HPI & below Physical Exam Physical Exam: General: patient resting comfortably, NAD, non-toxic in appearance, AA&O x 4 Skin: warm, dry, intact, no rashes or lesions HEENT: NC/AT, PERRL, EOMI Heart: +S1/S2, regular, no m/r/g Lungs: equal air entry bilaterally, no rales/rhonchi, decreased wheezing Abd: +BS, soft, NT/ND, no masses/organomegaly/ascites Ext: warm, 2+ pulses in UE/LE bilaterally, no clubbing/cyanosis or edema Neuro: nonfocal, patient AA&O x 4, speech intact, no facial droop, moving all extremities on command with equal strength 5/5 Results & Data Results & Data Vital Signs (Past 12 Hours) Vital Signs Temp Pulse Pulse Resp BP Pulse Ox O2 Del Method 07/24/23 07:00 69 07/24/23 07:11 83 18 95 Room Air 07/24/23 03:10 37 C 87 18 104/68 97 Room Air 07/23/23 22:32 86 07/23/23 23:20 37.3 C 89 16 90/58 L 96 Room Air 07/23/23 20:00 Room Air 07/23/23 20:11 90 18 93 Room Air 07/23/23 20:11 37 C 94 H 16 90/55 L 94 Room Air PG Care Time/CCT Total # of Minutes Spent Total Time Spent with Patient: Total time spent is greater than 50% in coordination of care (as documented) at patient's floor/unit and/or counseling patient: Coding Level of Care Code 83068 SUB INP/OBS CARE 3/50MIN Diagnoses SOB (shortness of breath) R06.02 GERD (gastroesophageal reflux disease) K21.9 Adrenal insufficiency E27.40 History of pulmonary embolism Z86.711 Hypertension I10 Cardiomyopathy I42.9
[2023-07-24] MEDS: METOPROLOL SUCC 50MG EXT REL TAB PO SCH (09:30)
[2023-07-24] MEDS: FLUTICASONE FUROATE 200MCG 14 PUFFS/INHALER INH SCH (09:30)
[2023-07-24] MEDS: UMECLIDINIUM/VILANTEROL 62.5/25MCG 7 PUFFS/INHALER INH SCH (09:30)
[2023-07-24] MEDS: PANTOprazole 40 MG TAB PO SCH ×2 (09:30→20:13)
[2023-07-24] MEDS: ATORVASTATIN 40 MG TAB PO SCH (09:31)
[2023-07-24] MEDS: NICOTINE 21 MG/24 HR TDSY TD SCH (09:31)
[2023-07-24] MEDS: FLUDROCORTISONE ACETATE 0.1 MG TAB PO SCH (09:31)
[2023-07-24] MEDS: FAMOTIDINE 20 MG TAB PO SCH ×2 (09:31→20:13)
[2023-07-24] MEDS: POLYETHYLENE (MIRALAX) 17 GM PACK PO SCH (09:32)
[2023-07-24] MEDS: POTASSIUM CHLORIDE CRTAB 20 MEQ TABCR PO SCH (09:37)
[2023-07-24] MEDS: oxyCODONE HCL IR 5 MG TAB (IMMEDIATE RELEASE) PO PRN ×2 (09:37→20:12)
[2023-07-24 10:04] LABS: Hematocrit (blood only) 30.6 % (37.0-47.0); Hemoglobin 8.9 g/dl (12.0-16.0); Mean Corpuscular Hemoglobin 26.6 pg (25.0-34.0); Mean Corpuscular Hgb Conc 29.1 g/dL (32.0-36.0); Mean Corpuscular Volume 91.3 fL (80.0-100.0); Mean Platelet Volume 10.8 fL (9.4-12.4); Nucleated RBC # (auto) 0.03 K/uL (0.00-0.12); Nucleated RBC % (auto) 0.2 %; Platelet Count 210 K/uL (130-400); RDW Coefficient of Variation 17.5 % (11.5-14.5); RDW Standard Deviation 58.4 fL (36.4-46.3); Red Blood Count 3.35 M/uL (4.20-5.40); White Blood Count 12.64 K/ul (4.8-10.8)
--- NOTE | 2023-07-24 10:15 | History & Physical Bridge Note ---
Date of Service July 24, 2023 History & Physical Bridge Note I have examined the patient, reviewed the History & Physical and in the interval since the performance of the History & Physical I have noted the following changes of clinical significance: H&H is stable. Patient remains NPO. No overt GIB overnight. PE: A&Ox3. +cough. Lungs CTA. RRR. Abdomen soft, nontender. Normal bowel sounds. A/P: Acute blood loss anemia, n/v and bilateral upper quadrant abdominal pain. -NPO. -Proceed with EGD today with Dr. Bain. -Continue BID PPI. -Further recommendations pending results of testing. Supervising Physician Co-Signing Physician Notes Agree with MELYSSA Humphries as above Abd: Soft, NT, ND, +BS Continue current therapy and supportive care Proceed with EGD now.
[2023-07-24 10:29] LABS: BUN Creatinine Ratio 16.3 (10-20); Calcium 7.5 mg/dl (8.6-10.3); Est GFR (African American) 87.2 ml/min; Est GFR (Non-African American) 75.2 ml/min
[2023-07-24] MEDS ORDERED: DEXTROSE 50% 50 ML SYRINGE IV STA (10:38)
[2023-07-24] MEDS ORDERED: DEXTROSE 50% 50 ML SYRINGE IV ONE (10:42)
[2023-07-24] MEDS ORDERED: D5W AND NSS 1,000 ML IV SCH (10:45)
--- NOTE | 2023-07-24 10:51 | Anesthesiology Consultation ---
Date of Service July 24, 2023 Assessment & Plan Chart Review Chart Review: Acceptable Risk for Surgery, Patient NOT seen in Pre Admission Testing and medical coding auditor initiated Consults Requested none Proposed Anesthesia Anesthesia Type: MAC History Surgery Operation Date: 07/24/23 16:30 Proposed Procedures p Esophagogastroduodenoscopy Dr Bain - Loy Cordero Case, DO Height/Weight Height: 5 ft 4 in Weight: 82.5 kg Allergies Allergy/AdvReac Type Severity Reaction Status Date / Time No Known Allergies Allergy Verified 05/08/23 13:40 Medications Home Medications Medication Instructions Recorded Confirmed Last Taken naloxone 4 mg/actuation nasal 4 mg intranasal DIRECTED PRN 06/13/21 07/19/23 11/08/22 spray (Narcan) OVERSEDATION acetaminophen 325 mg tablet 650 mg PO Q6H PRN pain #30 tabs 10/04/22 07/19/23 07/18/23 furosemide 40 mg tablet 40 mg PO BID #60 tabs 10/23/22 07/19/23 07/18/23 incontinence pad, liner, disp #156 ea 02/13/23 07/19/23 Unknown hydrocortisone 10 mg tablet See Rx Instructions .Route 03/21/23 07/19/23 07/18/23 .COMPLEX #45 tabs Medical Thc 1 dose inhalation DAILY 03/28/23 07/19/23 07/18/23 fludrocortisone 0.1 mg tablet 0.1 mg PO QAM adrenal insufficiency 03/28/23 05/15/23 07/18/23 metoprolol succinate 100 mg 100 mg PO QAM 03/28/23 07/19/23 07/18/23 tablet,extended release 24 hr potassium chloride 20 mEq 20 meq PO QAM 03/28/23 07/19/23 07/18/23 tablet,extended release famotidine 20 mg tablet 20 mg PO BID #90 tabs 04/10/23 07/19/23 07/18/23 pantoprazole 40 mg tablet,delayed 40 mg PO BID #90 tabs 05/14/23 07/19/23 1 release albuterol sulfate 90 mcg/actuation 2 inh inhalation Q4H PRN shortness 05/22/23 07/19/23 07/18/23 aerosol inhaler (ProAir HFA) of breath or wheezing #18 grams albuterol sulfate 2.5 mg/3 mL 2.5 mg (3 mL) inhalation QID PRN 05/24/23 07/19/23 07/18/23 (0.083 %) solution for nebulization shortness of breath or wheezing #180 mL fluticasone fur. 200 mcg-umeclid 1 inh inhalation DAILY #60 ea 05/24/23 07/19/23 07/18/23 62.5 mcg-vilant 25 mcg inhalat.powder (Trelegy Ellipta) prednisone 20 mg tablet 20 mg PO BID 5 days #10 tabs 05/24/23 07/19/23 Unknown hydrocortisone 20 mg tablet 40 mg PO BID PRN see specific 06/07/23 07/19/23 07/18/23 directions #90 tabs ondansetron 4 mg disintegrating 4 mg PO Q6H PRN NAUSEA/VOMITING 07/06/23 07/19/23 07/18/23 tablet #20 tabs oxycodone 10 mg tablet 10 mg PO Q6H PRN pain #139 tabs 07/06/23 07/19/23 07/18/23 atorvastatin 40 mg tablet 40 mg PO QAM #90 tabs 07/12/23 07/19/23 07/18/23 apixaban 5 mg tablet 5 mg PO BID #60 tabs 07/16/23 07/19/23 07/18/23 empagliflozin 10 mg tablet 10 mg PO QAM #90 tabs 07/16/23 07/19/23 07/18/23 (Jardiance) azithromycin 500 mg tablet 500 mg PO DAILY #1 tab 07/20/23 Unknown sacubitril 24 mg-valsartan 26 mg 1 tab PO BID #180 tabs 07/23/23 Unknown tablet (Entresto) Active Medications Generic Name Dose Route Start Last Admin Trade Name Freq PRN Reason Stop Dose Admin Acetaminophen 650 mg 07/19/23 09:23 07/23/23 21:27 Acetaminophen 325 Mg Tab PO 08/18/23 09:22 650 mg Q6H PRN Administration pain Albuterol 3 ml 07/19/23 09:23 07/24/23 07:10 Albut/Ipratrop 3mg/0.5mg Neb 3 Ml Vial NEB 08/18/23 09:22 3 ml Q4R JOHANNA Administration Protocol Apixaban 5 mg 07/19/23 09:23 07/22/23 08:29 Apixaban 5 Mg Tablet PO 08/18/23 09:22 5 mg BID JOHANNA Administration Atorvastatin Calcium 40 mg 07/19/23 09:23 07/24/23 09:31 Atorvastatin 40 Mg Tab PO 08/18/23 09:22 40 mg QAM JOHANNA Administration Dextrose 25 ml 07/24/23 10:38 07/24/23 10:46 Dextrose 50% 50 Ml Syringe IV 07/24/23 10:39 25 ml NOW STA Administration Famotidine 20 mg 07/19/23 09:23 07/24/23 09:31 Famotidine 20 Mg Tab PO 08/18/23 09:22 20 mg BID JOHANNA Administration Fludrocortisone Acetate 0.1 mg 07/19/23 09:23 07/24/23 09:31 Fludrocortisone Acetate 0.1 Mg Tab PO 08/18/23 09:22 0.1 mg QAM JOHANNA Administration Fluticasone Furoate 1 puffs 07/19/23 10:00 07/24/23 09:30 Fluticasone Furoate 200mcg 14 Puffs/Inhaler INH 08/18/23 09:59 1 puffs DAILY JOHANNA Administration Hydrocortisone 20 mg 07/21/23 15:45 07/22/23 16:13 Hydrocortisone 10 Mg Tab PO 08/20/23 15:44 20 mg Q24H JOHANNA Administration Hydrocortisone 40 mg 07/22/23 09:00 07/22/23 08:30 Hydrocortisone 10 Mg Tab PO 08/21/23 08:59 40 mg QAM JOHANNA Administration Dextrose/Sodium Chloride 1,000 mls @ 80 mls/hr 07/24/23 10:45 07/24/23 10:48 D5w And Nss IV 08/23/23 10:44 80 mls/hr .[id number] JOHANNA Administration Metoprolol Succinate 50 mg 07/21/23 10:00 07/24/23 09:30 Metoprolol Succ 50mg Ext Rel Tab PO 08/20/23 09:59 50 mg QAM JOHANNA Administration Miscellaneous 1 each 07/19/23 09:23 07/24/23 09:32 Remove Nicoderm Patch N/A 08/18/23 09:22 1 each DAILY@0859 JOAHNNA Administration Nicotine 21 mg 07/19/23 09:23 07/24/23 09:31 Nicotine 21 Mg/24 Hr Tdsy TD 08/18/23 09:22 21 mg QAM JOHANNA Administration Oxycodone HCl 10 mg 07/19/23 09:23 07/24/23 09:37 Oxycodone Hcl Ir 5 Mg Tab (Immediate Release) PO 08/02/23 09:22 10 mg Q6H PRN Administration pain Pantoprazole Sodium 40 mg 07/19/23 09:23 07/24/23 09:30 Pantoprazole 40 Mg Tab PO 08/18/23 09:22 40 mg BID JOHANNA Administration Polyethylene Glycol 17 gm 07/19/23 09:23 07/24/23 09:32 Polyethylene (Miralax) 17 Gm Pack PO 08/18/23 09:22 Not Given DAILY JOHANNA Potassium Chloride 20 meq 07/19/23 09:23 07/24/23 09:37 Potassium Chloride Crtab 20 Meq Tabcr PO 08/18/23 09:22 20 meq QAM JOHANNA Administration Umeclidinium/Vilanterol 1 puffs 07/19/23 10:00 07/24/23 09:30 Umeclidinium/Vilanterol 62.5/25mcg 7 Puffs/Inhaler INH 08/18/23 09:59 1 puffs DAILY JOHANNA Administration NPO Date Last Intake of Fluids: 07/23/23 Time Last Intake of Fluids: 22:00 Date Last Intake of Solids: 07/23/23 Time Last Intake of Solids: 17:30 Past Medical History Medical History (HFpEF) heart failure with preserved ejection fraction Acute renal failure Adrenal insufficiency follows with [facility] End[facility]ology Asthma PT STATES TAKES RESCUE INHALER DAILY C. difficile enteritis hx - no recent episodes Cardiomyopathy Carotid stenosis, left S/P L CEA (02/18/20) (Prior to CEA patient had 80% LICA stenosis ) Cerebral aneurysm Per records, pt unaware No significant aneurysm noted with head CTA and brain MRI from 01/2020 Chronic heart failure with preserved ejection fraction CKD (chronic kidney disease) stage III Continuous tobacco abuse CVA (cerebral vascular accident) CVA 02/11/20- no residual effects, follows with [facility], patient was on plavix until ~1 month after left CEA surgery, now on ASA 81mg Depression with anxiety Edema hx - doing well currently Eosinophilic esophagitis GERD (gastroesophageal reflux disease) History of COVID-19 tested positive 10/2022 at [facility] -- fatigue, weakness, lethargy, chills/fever History of Meniere's disease History of MTHFR mutation per medical records -- pt unaware History of prediabetes HGBA1C 6.1% on 01/28/21 History of revision of total replacement of right hip joint 03/25/21 - [facility]; explantation old hardware, wound vac placement. History of septic shock 03/2021 - due to septic R hip; 04/2021 - again due to septic R hip - hospitalized [facility] each admission. Pseudomonas, proteus, oj albicans. 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 uses wheelchair, able to stand and pivot Osteoarthritis Paroxysmal atrial fibrillation hx -> follows with Dr. Sinclair Pulmonary emboli ~2020. pt unsure why she had the blood clot. treated with medication Pulmonary hypertension hx -- pt unaware RBBB SOB (shortness of breath) Type 2 diabetes mellitus pt denies UTI (urinary tract infection) hx VRE infection (vancomycin resistant Enterococcus) pt unaware -- per medical record dx 2021 at [facility] (urine) Weight loss, unintentional for the last 2 years -> has lost about 70lbs. Past Family History Family History Mother Diabetes Family history of diabetes mellitus Sister Diabetes Family history of diabetes mellitus Arterial thrombosis Amputation of leg Father Heart disease Lung disease Other No family history of adverse response to anesthesia Denies family history of Ovarian cancer Prostate cancer Myocardial infarction Breast cancer Colorectal cancer Past Surgical History Surgical History H/O carotid endarterectomy Left CEA: 02/18/20: Grade view 1 with head lift, MAC#3, ETT 7.0 at [facility] History of appendectomy History of bilateral tubal ligation History of brain surgery ~2014 ([facility]) History of History of cataract surgery R/L History of section x1 History of cholecystectomy History of colonoscopy History of esophagogastroduodenoscopy (EGD) History of hip surgery removal of the right hip joint replacement 01/2023 d/t chronic infection. History of incision and drainage right hip - multiple I/D's, 03/2021-04/2021; [facility]. History of tonsillectomy History of tooth extraction History of total hip arthroplasty RT> with repair S/P carotid endarterectomy Status post revision of total hip replacement (~01/2021) Social History Smoking Status: Current every day smoker tobacco type: cigarettes Smoking cigarettes per day: 10 to 15 a day. Sometimes a pack a day. Educated Pt on -Quit Now. Do You Dip or Chew Tobacco: No Hx Alcohol Use: No Hx Substance Use: No substance use type: marijuana Substance Use Type Other:: daily use Last Used Substance: Unknown Last Used Substance Other:: 03/27/23 Physical Exam Vital Signs Last Vital Signs Temp 36.9 C 07/24/23 08:10 Pulse 70 07/24/23 08:10 Resp 20 07/24/23 08:10 BP 138/82 07/24/23 08:10 Pulse Ox 100 07/24/23 08:10 O2 Del Method Room Air 07/24/23 08:10 FiO2 21 07/21/23 15:34 Testing Laboratory Results 07/24/23 09:34 07/24/23 09:34 PT 10.3 Seconds (9.0-12.0) 07/19/23 03:22 INR 0.9 (0.9-1.1) 07/19/23 03:22 APTT 25.0 Seconds (21.0-31.0) 07/19/23 03:22 07/19/23 05:23 Aerobic Blood Culture - Final Blood No growth in Aerobic bottle after 5 days. Anaerobic Blood Culture - Final No growth in Anaerobic bottle after 5 days. 07/19/23 04:35 Aerobic Blood Culture - Final Blood No growth in Aerobic bottle after 5 days. Anaerobic Blood Culture - Final No growth in Anaerobic bottle after 5 days. 07/24/23 10:46 POC Glucose 76 Electrocardiogram Date: 07/19/23 Test Reason : Blood Pressure : / mmHG Vent. Rate : 090 BPM Atrial Rate : 090 BPM P-R Int : 128 ms QRS Dur : 094 ms QT Int : 362 ms P-R-T Axes : 069 077 035 degrees QTc Int : 442 ms Sinus rhythm with Premature atrial complexes Low voltage QRS Incomplete right bundle branch block Abnormal ECG When compared with ECG of 09-NOV-2022 08:24, Premature ventricular complexes are no longer Present Premature atrial complexes are now Present QT has shortened Confirmed by Edwin Miranda ([id number]) on 07/19/2023 2:58:10 PM Chest X-Ray Date: 07/19/23 XR chest 1V portable CLINICAL HISTORY: Dyspnea TECHNIQUE: Single frontal radiograph of the chest was obtained. Comparison: Comparison is made to chest radiograph 11/09/2022 FINDINGS: No lines and tubes are seen. The cardiomediastinal silhouette is normal. The lungs are clear. No evidence of pleural effusion or pneumothorax. IMPRESSION: No acute abnormalities and in particular no radiographic evidence of pneumonia. Echocardiogram Date: 05/10/23 EF: 60-65 LV Function: normal RWMA: + none mild pulmonary HTN
[2023-07-24] MEDS: HYDROCORTISONE SOD 50 MG in SYRINGE 0 ML IV SCH ×2 (11:32→20:13)
[2023-07-24] MEDS ORDERED: PROPOFOL IV EMULSION 10 MG/ML 20 ML VIAL IV ONE (12:52)
[2023-07-24] MEDS ORDERED: LIDOCAINE 2% 2 ML VIAL/AMP(20MG/ML) INFIL ONE (12:52)
--- NOTE | 2023-07-24 13:56 | GI REPORT ---
Patient Name: Radha Tello Procedure Date: 07/24/2023 1:24 PM Date of : 1955 Admit Type: Inpatient Age: 68 Gender: Female Attending MD: Loy Bain DO, Procedure: Upper GI endoscopy Providers: Loy Bain DO Referring MD: Brandon Collins Indications: Acute post hemorrhagic anemia, Follow-up of acute gastric ulcer Medicines: Monitored Anesthesia Care Complications: No immediate complications. Estimated Blood Loss: Estimated blood loss: none. Procedure: Pre-Anesthesia Assessment: - Prior to the procedure, a History and Physical was performed, and patient medications and allergies were reviewed. The patient's tolerance of previous anesthesia was also reviewed. The risks and benefits of the procedure and the sedation options and risks were discussed with the patient. All questions were answered, and informed consent was obtained. Prior Anticoagulants: The patient has taken Eliquis (apixaban), last dose was 6 days prior to procedure. ASA Grade Assessment: IV - A patient with severe systemic disease that is a constant threat to life. After reviewing the risks and benefits, the patient was deemed in satisfactory condition to undergo the procedure. After obtaining informed consent, the endoscope was passed under direct vision. Throughout the procedure, the patient's blood pressure, pulse, and oxygen saturations were monitored continuously. The Endoscope was introduced through the mouth, and advanced to the second part of duodenum. The upper GI endoscopy was accomplished without difficulty. The patient tolerated the procedure well. Findings: The esophagus was normal. Localized moderate inflammation characterized by erythema was found in the gastric antrum. Biopsies were taken with a cold forceps for histology. The examined duodenum was normal. Impression: - Normal esophagus. - Gastritis. Biopsied. - Normal examined duodenum. Recommendation: - Return patient to [facility] for ongoing care. - Advance diet as tolerated. - Continue present medications. - Return to GI office in 2 weeks. Loy Bain DO 07/24/2023 1:55:37 PM This report has been signed electronically. Note Initiated On: 07/24/2023 1:24 PM Number of Addenda: 0 I attest to the content of the Intraoperative Record and orders documented therein, exceptions below {[id number]}
--- NOTE | 2023-07-24 15:08 | Anesthesiology Progress Note ---
Date of Service July 24, 2023 Anesthesia Post Procedure Vital Signs Vital Signs: Temp Pulse Pulse Resp BP BP Pulse Ox 07/24/23 14:25 85 16 104/79 99 07/24/23 14:10 76 16 91/66 L 97 07/24/23 13:55 75 16 165/89 H 100 07/24/23 13:31 36.9 C 83 18 127/68 96 07/24/23 08:00 07/24/23 12:06 37.2 C 75 20 104/70 100 07/24/23 11:14 83 18 95 07/24/23 08:10 36.9 C 70 20 138/82 100 07/24/23 07:00 69 07/24/23 07:11 83 18 95 07/24/23 03:10 37 C 87 18 104/68 97 07/23/23 22:32 86 07/23/23 23:20 37.3 C 89 16 90/58 L 96 07/23/23 20:00 07/23/23 20:11 90 18 93 07/23/23 20:11 37 C 94 H 16 90/55 L 94 07/23/23 15:48 94 H 18 94 07/23/23 15:31 37 C 96 H 18 113/73 95 07/23/23 15:26 87 O2 Del Method 07/24/23 14:25 Room Air 07/24/23 14:10 Room Air 07/24/23 13:55 Room Air 07/24/23 13:31 Room Air 07/24/23 08:00 Room Air 07/24/23 12:06 Room Air 07/24/23 11:14 Room Air 07/24/23 08:10 Room Air 07/24/23 07:00 07/24/23 07:11 Room Air 07/24/23 03:10 Room Air 07/23/23 22:32 07/23/23 23:20 Room Air 07/23/23 20:00 Room Air 07/23/23 20:11 Room Air 07/23/23 20:11 Room Air 07/23/23 15:48 Room Air 07/23/23 15:31 Room Air 07/23/23 15:26 Pain Intensity Right Hip: Pain Intensity: 7 Transfer of Care Handoff Completed per policy Notes Mental Status: alert / awake / arousable and participated in evaluation Patient Amnestic to Procedure: Yes Nausea / Vomiting: adequately controlled Pain: adequately controlled Airway Patency, RR, SpO2: stable & adequate BP & HR: stable & adequate Hydration State: stable & adequate Anesthetic Complications: no major complications apparent
--- NOTE | 2023-07-24 15:46 | Hospitalist Progress Note ---
Date of Service July 24, 2023 Assessment & Plan (1) Choledocholithiasis: Plan: admission CT a/p with concerns for such LFTs remarkably normal her symptoms may be c/w choledocholithiasis / biliary colic I do not think the amount of gastritis seen on EGD today explains the severity of her symptoms plan - * urgent MRCP * if + for choledocholithiasis then consult [facility] for ERCP * repeat LFTs and lipase in am * if MRCP is positive for CBD stone make NPO after MN * thus far no symptoms of cholangitis but LOW threshold to start antibiotics (2) Gastritis: Plan: as seen on EGD today appreciate Dr Bain's assistance cont PPI await bx results (3) Gastric ulcer: Plan: 03/2023 resolved - no PUD today on EGD (4) Elevated troponin: Plan: peak HS trop 19 very minimal elevation likely due to #5 below no obvious ischemic symptoms (5) COPD exacerbation: Plan: present on admission improved did receive IV steroids earlier in the admission remains on nebs (6) GERD (gastroesophageal reflux disease): Plan: cont PPI (7) Prediabetes: Plan: a1c 7.3% in 2021 no a1c since; thus, recheck a1c tomorrow prior a1c more c/w T2DM not pre-DM (8) History of septic arthritis: Plan: right hip s/p removal of all hardware at [facility] [place] in spring 2022 (9) Adrenal insufficiency: Plan: follows with [facility] typically on hydrocortisone BID + florinef stress-dose steroids due to EGD today (hydrocortisone 50mg IV TID) cont florinef (10) History of pulmonary embolism: Plan: noted typically on Eliquis BID on hold due to concerns for GI bleeding s/p EGD today cont to hold Eliquis due to #1 and potential for needing ERCP (11) History of brain surgery: (12) Chronic heart failure with preserved ejection fraction: Plan: compensated cont metoprolol succinate 50mg daily lasix currently on hold (13) Paroxysmal atrial fibrillation: Plan: remains in NSR cont metoprolol resume Eliquis after any procedures have been completed (14) Iron deficiency anemia: Plan: ferritin 23 transferrin sat 8% s/p EGD today - mild-mod gastritis only but no PUD and no signs of recent bleeding cont PPI in ideal world would have colonoscopy in future to be complete consider IV venofer while here cbc am Magalie is on hold (15) Hypoglycemia: Plan: 2nd to fasting state in the setting of adrenal insufficiency had not received her PO steroids for 24 + hours s/p D50 s/p basal fluids with dextrose s/p stress dose IV steroids hypoglycemia now resolved Plan tobacco dependence - nicoderm patch family updated at bedside Admission and Anticipated Discharge Date Admission Date: July 20, 2023 Subjective saw patient post-EGD she was eating a light meal family at bedside (niece) pt in good spirits we discussed EGD results (mild gastritis only; no PUD) we had lengthy conversation about her GI symptoms present for 2-3 weeks or longer evening hours tend to be the worst time of the day seem to be following meals pain is upper abdomen (RUQ and LUQ, high epigastric region as well) nausea with vomiting no radiation of pain pain ultimately just resolves does not have a gall bladder - had it out 20+ years ago we discussed that the CT a/p at admission showed ? choledocholithiasis ? ; expla ined significance of such Review of Systems Review of Systems: gen - no fevers or chills cv - no chest pain, no orthopnea pulm - no dyspnea today - this is MUCH better than early in admission; cough improved GI - no diarrhea; no lower abdominal pain Physical Exam Physical Exam: gen - NAD, good spirits, lying in bed comfortably mouth - MMM, no thrush neck - no JVD heart - RRR, s1 s2 lungs - CTA b/l abd - tenderness at junction of RUQ with high-epigastric region, BS+, no HSM, nondistended ext - edema - LLE worse than RLE; pulses 2+ b/l musculo - right leg is several inches shorter than left leg skin - no jaundice Results & Data Results & Data Vital Signs (Past 12 Hours) Vital Signs Temp Pulse Pulse Resp BP BP Pulse Ox 07/24/23 15:17 85 07/24/23 15:14 37.0 C 95 H 20 158/81 H 95 07/24/23 14:25 85 16 104/79 99 07/24/23 14:10 76 16 91/66 L 97 07/24/23 13:55 75 16 165/89 H 100 07/24/23 13:31 36.9 C 83 18 127/68 96 07/24/23 08:00 07/24/23 12:06 37.2 C 75 20 104/70 100 07/24/23 11:14 83 18 95 07/24/23 08:10 36.9 C 70 20 138/82 100 07/24/23 07:00 69 07/24/23 07:11 83 18 95 O2 Del Method 07/24/23 15:17 07/24/23 15:14 Room Air 07/24/23 14:25 Room Air 07/24/23 14:10 Room Air 07/24/23 13:55 Room Air 07/24/23 13:31 Room Air 07/24/23 08:00 Room Air 07/24/23 12:06 Room Air 07/24/23 11:14 Room Air 07/24/23 08:10 Room Air 07/24/23 07:00 07/24/23 07:11 Room Air Laboratory Results Laboratory Results - last 24 hr 07/24/23 07/24/23 07/24/23 09:34 09:34 09:34 WBC 12.64 H RBC 3.35 L Hgb 8.9 L Hct 30.6 L MCV 91.3 MCH 26.6 MCHC 29.1 L RDW Std Deviation 58.4 H RDW Coeff of Crow 17.5 H Plt Count 210 MPV 10.8 Absolute Nucleated RBC 0.03 Nucleated RBC % (auto) 0.2 Sodium 142 Potassium 5.0 D Chloride 115 H Carbon Dioxide 24 Anion Gap 3 BUN 13 Creatinine 0.80 Est Cr Clr Drug Dosing 69.0 Est GFR ( Amer) 87.2 Est GFR (Non-Af Amer) 75.2 BUN/Creatinine Ratio 16.3 Glucose 68 L POC Glucose Calcium 7.5 L Folate 7.57 07/24/23 07/24/23 07/24/23 10:46 15:03 17:13 WBC RBC Hgb Hct MCV MCH MCHC RDW Std Deviation RDW Coeff of Crow Plt Count MPV Absolute Nucleated RBC Nucleated RBC % (auto) Sodium Potassium Chloride Carbon Dioxide Anion Gap BUN Creatinine Est Cr Clr Drug Dosing Est GFR ( Amer) Est GFR (Non-Af Amer) BUN/Creatinine Ratio Glucose POC Glucose 76 87 128 H Calcium Folate PG Care Time/CCT Total # of Minutes Spent Total Time Spent with Patient: Total time spent is greater than 50% in coordination of care (as documented) at patient's floor/unit and/or counseling patient: Coding Level of Care Code 67336 SUB INP/OBS CARE MIN Diagnoses Choledocholithiasis K80.50 Gastritis K29.70 Gastric ulcer K25.9 Elevated troponin R79.89 COPD exacerbation J44.1 GERD (gastroesophageal reflux disease) K21.9 Prediabetes R73.03 History of septic arthritis Z87.39 Adrenal insufficiency E27.40 History of pulmonary embolism Z86.711 History of brain surgery Z98.890 Chronic heart failure with preserved ejection fraction I50.32 Paroxysmal atrial fibrillation I48.0 Iron deficiency anemia D50.9 Hypoglycemia E16.2
--- NOTE | 2023-07-25 01:44 | Magnetic Resonance Report ---
Exam(s): MRI MRCP EXAM: MR Abdomen Without Intravenous Contrast, MRCP Protocol CLINICAL HISTORY: Reason for exam: ?choledocholithiasis; post-prandial RUQ pain. TECHNIQUE: Multiplanar magnetic resonance images of the abdomen without intravenous contrast using MRCP protocol. COMPARISON: CT abdomen and pelvis of 07/22/2023 FINDINGS: Lower thorax: Tiny bilateral pleural effusions. Bile ducts: 1.2 cm filling defect in the common bile duct consistent with choledocholithiasis. Gallbladder: Gallbladder has been removed. Liver: Unremarkable. Pancreas: Unremarkable. No ductal dilation. Spleen: Unremarkable. No splenomegaly. Adrenals: Unremarkable. No mass. Kidneys and ureters: Unremarkable. No hydronephrosis. Stomach and bowel: Unremarkable. No obstruction. IMPRESSION: 1.2 cm filling defect in the common bile duct consistent with choledocholithiasis. Electronically signed by: Marcelo Hirsch M.D. 07/25/23 01:43 AM
[2023-07-25] MEDS: HYDROCORTISONE SOD 50 MG in SYRINGE 0 ML IV SCH ×2 (02:52→11:03)
[2023-07-25 06:38] LABS: Albumin Globulin Ratio 1.3 (0.9-2); Albumin Level 2.3 gm/dl (3.4-5.0); BUN Creatinine Ratio 22.7 (10-20); Bilirubin,Total 0.3 mg/dl (0.2-1.0); Calcium 7.2 mg/dl (8.6-10.3); Creatinine Clr Calc Pharmacy 80.3 ml/min; Est GFR (African American) 104.5 ml/min; Est GFR (Non-African American) 90.1 ml/min; Globulin 1.8 gm/dl (2.5-4.0); Potassium 3.9 mmol/L (3.5-5.1); Total Protein 4.1 gm/dl (6.0-8.3)
[2023-07-25 07:01] LABS: Estimated Average Glucose 123 mg/dl; Hemoglobin A1C 5.9 % (4.5-5.6)
[2023-07-25] MEDS: ALBUT/IPRATROP 3MG/0.5MG NEB 3 ML VIAL NEB SCH (07:23)
[2023-07-25] MEDS: NICOTINE 21 MG/24 HR TDSY TD SCH (07:39)
[2023-07-25] MEDS: FLUTICASONE FUROATE 200MCG 14 PUFFS/INHALER INH SCH (07:40)
[2023-07-25] MEDS: UMECLIDINIUM/VILANTEROL 62.5/25MCG 7 PUFFS/INHALER INH SCH (07:40)
[2023-07-25] MEDS: METOPROLOL SUCC 50MG EXT REL TAB PO SCH (07:41)
[2023-07-25] MEDS: FLUDROCORTISONE ACETATE 0.1 MG TAB PO SCH (07:41)
[2023-07-25] MEDS: PANTOprazole 40 MG TAB PO SCH ×2 (07:42→19:56)
[2023-07-25] MEDS: ATORVASTATIN 40 MG TAB PO SCH (07:42)
[2023-07-25] MEDS: FAMOTIDINE 20 MG TAB PO SCH ×2 (07:42→19:56)
[2023-07-25] MEDS: POLYETHYLENE (MIRALAX) 17 GM PACK PO SCH (07:43)
[2023-07-25 07:47] LABS: Hematocrit (blood only) 25.5 % (37.0-47.0); Hemoglobin 7.5 g/dl (12.0-16.0); Mean Corpuscular Hemoglobin 26.3 pg (25.0-34.0); Mean Corpuscular Hgb Conc 29.4 g/dL (32.0-36.0); Mean Corpuscular Volume 89.5 fL (80.0-100.0); Mean Platelet Volume 11.3 fL (9.4-12.4); Nucleated RBC # (auto) 0.02 K/uL (0.00-0.12); Nucleated RBC % (auto) 0.2 %; Platelet Count 211 K/uL (130-400); RDW Coefficient of Variation 17.3 % (11.5-14.5); RDW Standard Deviation 55.9 fL (36.4-46.3); Red Blood Count 2.85 M/uL (4.20-5.40); White Blood Count 10.41 K/ul (4.8-10.8)
[2023-07-25] MEDS ORDERED: IRON SUCROSE 300 MG in SODIUM CHLORIDE 0.9% 250 ML IV ONE (08:01)
[2023-07-25] MEDS: oxyCODONE HCL IR 5 MG TAB (IMMEDIATE RELEASE) PO PRN ×2 (11:06→19:55)
--- NOTE | 2023-07-25 11:29 | Gastroenterology Progress Note ---
Date of Service July 25, 2023 Assessment & Plan (1) Choledocholithiasis: Plan: Post distant cholecystectomy, w/o evidence of cholangitis. Plan 1. IV fluids. 2. Clear liquids po today, NPO after midnight. 3. Plan for ERCP tomorrow afternoon by Dr. Serrano. Admission and Anticipated Discharge Date Admission Date: July 20, 2023 Subjective 68 yr old female admitted for COPD, anemia. She is S/P distant cholecystectomy. EGD yesterday by Dr. Bain w gastritis. Pt reports intermittent episodes of moderately severe upper abdomen pain for a few weeks. CTAP on 07/20 w choledocholithiasis. MRCP this morning w a 1.2 cm stone in the CBD. Pt seen and examined. Currently mild upper abd pain, free of N/V. Denies fevers/chills/sweats, yellow eyes/skin. Has leukocytosis at 10 (down from 12.8 earlier this admission) but is on steroids for COPD. LFTs and Lipase are normal. 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 No worsening. No fevers or weight loss. Eyes: No eye redness or yellow eyes, or pain, no recent vision changes Resp: + mild cough and SOB related to COPD. Tells me she is improved and back to her best baseline breathing today. Cardio: + mild bilat lower leg edema; No palpitations/irregular beats, no chest pain GI: As per HPI, otherwise (-). Tells me she is passing gas today. : Denies pain on urination Skin: No jaundice, itching or new rashes Physical Exam Constitutional: well developed, well nourished, + ill appearing (chronically), + well hydrated, + obese, well groomed and cooperative Eyes: PERRL, conjunctivae normal, anicteric sclerae ENMT: external ear and nose normal, oropharynx normal Neck: trachea midline, no thyromegaly Respiratory: normal respiratory effort, lungs clear to auscultation Cardiovascular: Rate/Rhythm: regular rate and regular rhythm Heart Sounds: normal S1 and normal S2; no murmur trace bilat lower leg edema Gastrointestinal (Abdomen): mild abd bloating, BS present all 4 quadrants. Musculoskeletal: no cyanosis or clubbing, extremities motor strength 5/5 Skin: no rashes, warm and dry Neurologic: PERRL, EOMI, accommodation nl, no face palsy, no dysarthria Psychiatric: A+Ox3, euthymic affect Lymphatic: no cervical or axillary lymphadenopathy Results & Data Vital Signs (Past 12 Hours) Vital Signs Temp Pulse Pulse Resp BP Pulse Ox O2 Del Method 07/25/23 07:34 36.7 C 76 18 141/83 H 100 Room Air 07/25/23 07:25 87 16 98 Room Air 07/25/23 07:00 72 07/25/23 04:00 36.6 C 75 18 125/80 97 Room Air 07/24/23 23:30 37.0 C 83 18 117/75 96 Room Air FiO2 07/25/23 07:34 07/25/23 07:25 21 07/25/23 07:00 07/25/23 04:00 07/24/23 23:30 Laboratory Results WBC 10, Hb 7.5, Hct 25.5, plts 211, Na 141, K 3.9, Cl 112, CO2 27, BUN 15, Cr 0.66, glucose 144. T Bili 0.3, AST 12, ALT 13, Alk Phos 48, Lipase 8. Diagnostic Findings CTAP w IV on 07/20/23: 1. Emphysema. 2. Trace right pleural effusion. 3. There is no airspace consolidation typical for pneumonia. 4. No acute infectious or inflammatory findings are identified in the abdomen or pelvis. 5. The patient is status post cholecystectomy. Choledocholithiasis is noted. 6. The right hip arthroplasty has been removed and there is soft tissue infiltration throughout the right upper thigh. Correlate clinically. 7. Advanced colonic diverticulosis without CT evidence of acute diverticulitis. 8. No hematoma is identified. 9. Additional findings as above. MRCP 07/25/23: Bile ducts: 1.2 cm filling defect in the common bile duct consistent with choledocholithiasis. Gallbladder: Gallbladder has been removed. Liver: Unremarkable. Pancreas: Unremarkable. No ductal dilation.
[2023-07-25] MEDS ORDERED: SODIUM CHLORIDE 0.9% 250 ML IV PRN (13:02)
--- NOTE | 2023-07-25 13:04 | Hospitalist Progress Note ---
Date of Service July 25, 2023 Assessment & Plan (1) Iron deficiency anemia: Plan: ferritin 23 transferrin sat 8% s/p EGD 07/24/23 - mild-mod gastritis only but no PUD and no signs of recent bleeding cont PPI bid in ideal world would have colonoscopy in future to be complete and, if negative, capsule endoscopy Hb 7.5 today - Tx 1 unit PRBCs also give venofer x 3 doses while here - 300mg each cbc am Eliquis is on hold (2) Choledocholithiasis: Plan: admission CT a/p with concerns for such LFTs remarkably normal I do not think the amount of gastritis seen on EGD today explains the severity of her GI symptoms MRCP shows probable 1.2cm CBD stone [facility] has seen - plan for ERCP tomorrow on 07/26 clear liquids until MN tonight, then NPO after that repeat LFTs today wnl repeat them again in am fortunately abd pain has stopped no signs of cholangitis (3) Gastritis: Plan: as seen on EGD appreciate Dr Bain's assistance cont PPI await bx results (4) Gastric ulcer: Plan: 03/2023 resolved - no PUD on EGD yesterday (5) Elevated troponin: Plan: peak HS trop 19 very minimal elevation likely due to #5 below no obvious ischemic symptoms (6) COPD exacerbation: Plan: present on admission improved did receive IV steroids earlier in the admission remains on nebs (7) GERD (gastroesophageal reflux disease): Plan: cont PPI (8) Prediabetes: Plan: a1c 7.3% in 2021 no a1c since; thus, recheck a1c tomorrow prior a1c more c/w T2DM not pre-DM (9) History of septic arthritis: Plan: right hip s/p removal of all hardware at [facility] [place] in spring 2022 cont pain meds prn (10) Adrenal insufficiency: Plan: follows with [facility] typically on hydrocortisone BID + florinef stress-dose steroids due to EGD yesterday and ERCP tomorrow cont hydrocortisone IV TID; can utilize 25mg TID for now cont florinef (11) History of pulmonary embolism: Plan: noted typically on Eliquis BID on hold due to concerns for GI bleeding and for ERCP tomorrow (12) History of brain surgery: (13) Chronic heart failure with preserved ejection fraction: Plan: compensated cont metoprolol succinate 50mg daily will give lasix following PRBCs today (14) Paroxysmal atrial fibrillation: Plan: remains in NSR cont metoprolol resume Eliquis after any procedures have been completed (15) Hypoglycemia: Plan: 2nd to fasting state in the setting of adrenal insufficiency resolved s/p stress dose steroids Plan tobacco dependence - nicoderm patch updated at bedside care d/w Lucila MCCOY Admission and Anticipated Discharge Date Admission Date: July 20, 2023 Subjective patient had good night no episodes of abdominal pain, nausea or emesis no dyspnea at rest "my breathing feels pretty good" we discussed blood transfusion - consent obtained, questions answered updated at bedside tele overnight wnl no new complaints Lucila MCCOY saw her in consult and plans ERCP tomorrow Review of Systems Review of Systems: gen - no fevers or chills cv - no chest pain pulm - no cough musculo - having pain over lateral R hip region - this pain is similar to past pain she gets at home from previous hip operations Physical Exam Physical Exam: gen - NAD, looks good today mouth - MMM, no thrush neck - no JVD heart - RRR, s1 s2, no murmur lungs - CTA b/l, fair airation, no wheezes or rales abd - soft, NT, ND, BS+, no HSM ext - edema - LLE worse than RLE - 1-2+ on left, 1+ on right; pulses 2+ b/l musculo - right leg is several inches shorter than left leg; scar R lateral hip region - tender to palpation over this area skin - no jaundice Results & Data Results & Data Vital Signs (Past 12 Hours) Vital Signs Temp Pulse Pulse Resp BP Pulse Ox O2 Del Method 07/25/23 11:22 36.8 C 88 18 114/56 L 94 Room Air 07/25/23 07:34 36.7 C 76 18 141/83 H 100 Room Air 07/25/23 07:25 87 16 98 Room Air 07/25/23 07:00 72 07/25/23 04:00 36.6 C 75 18 125/80 97 Room Air FiO2 07/25/23 11:22 07/25/23 07:34 07/25/23 07:25 21 07/25/23 07:00 07/25/23 04:00 Laboratory Results Laboratory Results - last 48 hr 07/24/23 07/24/23 07/24/23 09:34 09:34 09:34 WBC 12.64 H RBC 3.35 L Hgb 8.9 L Hct 30.6 L MCV 91.3 MCH 26.6 MCHC 29.1 L RDW Std Deviation 58.4 H RDW Coeff of Crow 17.5 H Plt Count 210 MPV 10.8 Absolute Nucleated RBC 0.03 Nucleated RBC % (auto) 0.2 Sodium 142 Potassium 5.0 D Chloride 115 H Carbon Dioxide 24 Anion Gap 3 BUN 13 Creatinine 0.80 Est Cr Clr Drug Dosing 69.0 Est GFR ( Amer) 87.2 Est GFR (Non-Af Amer) 75.2 BUN/Creatinine Ratio 16.3 Glucose 68 L POC Glucose Estimat Average Glucose Hemoglobin A1c Calcium 7.5 L Total Bilirubin AST ALT Alkaline Phosphatase Total Protein Albumin Globulin Albumin/Globulin Ratio Lipase Folate 7.57 Blood Type Antibody Screen Crossmatch 07/24/23 07/24/23 07/24/23 10:46 15:03 17:13 WBC RBC Hgb Hct MCV MCH MCHC RDW Std Deviation RDW Coeff of Crow Plt Count MPV Absolute Nucleated RBC Nucleated RBC % (auto) Sodium Potassium Chloride Carbon Dioxide Anion Gap BUN Creatinine Est Cr Clr Drug Dosing Est GFR ( Amer) Est GFR (Non-Af Amer) BUN/Creatinine Ratio Glucose POC Glucose 76 87 128 H Estimat Average Glucose Hemoglobin A1c Calcium Total Bilirubin AST ALT Alkaline Phosphatase Total Protein Albumin Globulin Albumin/Globulin Ratio Lipase Folate Blood Type Antibody Screen Crossmatch 07/25/23 07/25/23 07/25/23 05:44 05:44 05:44 WBC 10.41 RBC 2.85 L Hgb 7.5 L Hct 25.5 L MCV 89.5 MCH 26.3 MCHC 29.4 L RDW Std Deviation 55.9 H RDW Coeff of Crow 17.3 H Plt Count 211 MPV 11.3 Absolute Nucleated RBC 0.02 Nucleated RBC % (auto) 0.2 Sodium 141 Potassium 3.9 D Chloride 112 H Carbon Dioxide 27 Anion Gap 2 L BUN 15 Creatinine 0.66 Est Cr Clr Drug Dosing 80.3 Est GFR ( Amer) 104.5 Est GFR (Non-Af Amer) 90.1 BUN/Creatinine Ratio 22.7 H Glucose 144 H POC Glucose Estimat Average Glucose 123 Hemoglobin A1c 5.9 H Calcium 7.2 L Total Bilirubin 0.3 AST 13 ALT 12 Alkaline Phosphatase 48 Total Protein 4.1 L Albumin 2.3 L Globulin 1.8 L Albumin/Globulin Ratio 1.3 Lipase 8 L Folate Blood Type Antibody Screen Crossmatch 07/25/23 07/25/23 07:27 13:18 WBC RBC Hgb Hct MCV MCH MCHC RDW Std Deviation RDW Coeff of Crow Plt Count MPV Absolute Nucleated RBC Nucleated RBC % (auto) Sodium Potassium Chloride Carbon Dioxide Anion Gap BUN Creatinine Est Cr Clr Drug Dosing Est GFR ( Amer) Est GFR (Non-Af Amer) BUN/Creatinine Ratio Glucose POC Glucose 145 H Estimat Average Glucose Hemoglobin A1c Calcium Total Bilirubin AST ALT Alkaline Phosphatase Total Protein Albumin Globulin Albumin/Globulin Ratio Lipase Folate Blood Type A Positive Antibody Screen NEGATIVE Crossmatch See Detail PG Care Time/CCT Total # of Minutes Spent Total Time Spent with Patient: Total time spent is greater than 50% in coordination of care (as documented) at patient's floor/unit and/or counseling patient: Coding Level of Care Code 12696 SUB INP/OBS CARE 3/50MIN Diagnoses Iron deficiency anemia D50.9 Choledocholithiasis K80.50 Gastritis K29.70 Gastric ulcer K25.9 Elevated troponin R79.89 COPD exacerbation J44.1 GERD (gastroesophageal reflux disease) K21.9 Prediabetes R73.03 History of septic arthritis Z87.39 Adrenal insufficiency E27.40 History of pulmonary embolism Z86.711 History of brain surgery Z98.890 Chronic heart failure with preserved ejection fraction I50.32 Paroxysmal atrial fibrillation I48.0 Hypoglycemia E16.2
[2023-07-25] MEDS ORDERED: ACETAMINOPHEN 500 MG TAB PO SCH (13:15)
[2023-07-25] MEDS ORDERED: FUROSEMIDE 20 MG TAB PO SCH (13:15)
[2023-07-25] MEDS: HYDROCORTISONE SOD 25 MG in SYRINGE 0 ML IV SCH (19:56)
[2023-07-26] MEDS: HYDROCORTISONE SOD 25 MG in SYRINGE 0 ML IV SCH ×3 (04:36→19:29)
[2023-07-26 06:26] LABS: Hemoglobin 9.5 g/dl (12.0-16.0); Mean Corpuscular Hemoglobin 26.8 pg (25.0-34.0); Mean Corpuscular Hgb Conc 30.6 g/dL (32.0-36.0); Mean Corpuscular Volume 87.3 fL (80.0-100.0); Mean Platelet Volume 10.8 fL (9.4-12.4); Nucleated RBC # (auto) 0.02 K/uL (0.00-0.12); Nucleated RBC % (auto) 0.2 %; Platelet Count 210 K/uL (130-400); RDW Standard Deviation 52.4 fL (36.4-46.3); Red Blood Count 3.55 M/uL (4.20-5.40); White Blood Count 10.79 K/ul (4.8-10.8)
[2023-07-26 06:58] LABS: Albumin Globulin Ratio 1.3 (0.9-2); Albumin Level 2.3 gm/dl (3.4-5.0); Bilirubin,Total 0.4 mg/dl (0.2-1.0); Calcium 7.5 mg/dl (8.6-10.3); Creatinine Clr Calc Pharmacy 70.7 ml/min; Est GFR (African American) 94.3 ml/min; Est GFR (Non-African American) 81.3 ml/min; Globulin 1.8 gm/dl (2.5-4.0); Potassium 3.2 mmol/L (3.5-5.1); Total Protein 4.1 gm/dl (6.0-8.3)
[2023-07-26] MEDS: METOPROLOL SUCC 50MG EXT REL TAB PO SCH (08:24)
[2023-07-26] MEDS: ATORVASTATIN 40 MG TAB PO SCH (08:25)
[2023-07-26] MEDS: PANTOprazole 40 MG TAB PO SCH ×2 (08:25→19:26)
[2023-07-26] MEDS: FAMOTIDINE 20 MG TAB PO SCH ×2 (08:25→19:29)
[2023-07-26] MEDS: FLUDROCORTISONE ACETATE 0.1 MG TAB PO SCH (08:26)
[2023-07-26] MEDS: oxyCODONE HCL IR 5 MG TAB (IMMEDIATE RELEASE) PO PRN ×2 (08:30→18:38)
[2023-07-26] MEDS: UMECLIDINIUM/VILANTEROL 62.5/25MCG 7 PUFFS/INHALER INH SCH (08:30)
[2023-07-26] MEDS: FLUTICASONE FUROATE 200MCG 14 PUFFS/INHALER INH SCH (08:31)
[2023-07-26] MEDS: NICOTINE 21 MG/24 HR TDSY TD SCH (08:31)
[2023-07-26] MEDS: POLYETHYLENE (MIRALAX) 17 GM PACK PO SCH (08:31)
[2023-07-26] MEDS ORDERED: POTASSIUM CHLORIDE CRTAB 20 MEQ TABCR PO STA (08:45)
[2023-07-26] MEDS ORDERED: IRON SUCROSE 300 MG in SODIUM CHLORIDE 0.9% 250 ML IV ONE (09:00)
[2023-07-26] MEDS ORDERED: FUROSEMIDE 40 MG TAB PO ONE (18:18)
[2023-07-26] MEDS: ACETAMINOPHEN 325 MG TAB PO PRN (22:39)
[2023-07-27] MEDS: oxyCODONE HCL IR 5 MG TAB (IMMEDIATE RELEASE) PO PRN (00:52)
[2023-07-27] MEDS: HYDROCORTISONE SOD 25 MG in SYRINGE 0 ML IV SCH ×3 (05:58→21:55)
[2023-07-27 06:32] LABS: Hemoglobin 9.2 g/dl (12.0-16.0); Mean Corpuscular Hemoglobin 26.8 pg (25.0-34.0); Mean Corpuscular Hgb Conc 30.7 g/dL (32.0-36.0); Mean Corpuscular Volume 87.5 fL (80.0-100.0); Mean Platelet Volume 10.9 fL (9.4-12.4); Platelet Count 203 K/uL (130-400); RDW Standard Deviation 52.5 fL (36.4-46.3); Red Blood Count 3.43 M/uL (4.20-5.40); White Blood Count 9.85 K/ul (4.8-10.8)
[2023-07-27 06:49] LABS: BUN Creatinine Ratio 17.9 (10-20); Calcium 7.4 mg/dl (8.6-10.3); Creatinine Clr Calc Pharmacy 55.8 ml/min; Est GFR (African American) 70.8 ml/min; Est GFR (Non-African American) 61.1 ml/min; Magnesium 1.9 mg/dl (1.7-2.4); Potassium 3.1 mmol/L (3.5-5.1)
[2023-07-27] MEDS ORDERED: POTASSIUM CHLORIDE / WTR 10 MEQ/100 ML PLCT IV ONE (07:44)
[2023-07-27] MEDS ORDERED: POTASSIUM CHLORIDE CRTAB 20 MEQ TABCR PO STA (07:44)
--- NOTE | 2023-07-27 07:45 | Hospitalist Progress Note ---
Date of Service July 26, 2023 Assessment & Plan (1) Iron deficiency anemia: Plan: ferritin 23 transferrin sat 8% s/p EGD 07/24/23 - mild-mod gastritis only but no PUD and no signs of recent bleeding cont PPI bid in ideal world would have colonoscopy in future to be complete and, if negative, capsule endoscopy s/p 1 unit PRBCs 07/25/23 for Hb 7.5 Hb today 9.5 also giving venofer x 3 doses while here - 300mg each today is dose #2 - tolerating such cbc am for stability Eliquis is on hold for ERCP (2) Choledocholithiasis: Plan: admission CT a/p with concerns for such LFTs remarkably normal day to day had abd pain/nausea/emesis pre-hospital -- resolved, has not recurred I do not think the amount of gastritis seen on EGD explains the severity of her GI symptoms MRCP shows probable 1.2cm CBD stone [facility] has seen - ERCP planned was supposed to be today but canceled to do emergency cases; now on for 07/27/23 ok for diet today, then NPO after MN tonight repeat LFTs today wnl no symptoms/signs of cholangitis at this time (3) Gastritis: Plan: as seen on EGD appreciate Dr Bain's assistance cont PPI bx with fungal organisms seen - start fluconazole 200mg daily x 10-14 days (4) Gastric ulcer: Plan: 03/2023 resolved - no PUD on EGD this admission (5) Elevated troponin: Plan: peak HS trop 19 very minimal elevation no obvious ischemic symptoms likely myocardial demand ischemia (6) COPD exacerbation: Plan: present on admission improved / resolved did receive IV steroids earlier in the admission and again the last few days stable in room air remains on nebs (7) GERD (gastroesophageal reflux disease): Plan: cont PPI (8) Prediabetes: Plan: a1c 7.3% in 2021 a1c this admission 5.9% - may not be reliable due to anemia either way glucoses are stable (9) History of septic arthritis: Plan: right hip s/p removal of all hardware at [facility] [place] in spring 2022 cont pain meds prn she has been on 10mg doses of oxycodone for years likely tolerance incomplete pain relief would really benefit from long-acting pain meds - defer to PCP who manages pain in meantime - increase oxy to 15mg q6h prn (10) Adrenal insufficiency: Plan: follows with [facility] typically on hydrocortisone BID + florinef stress-dose steroids due to EGD and ERCP this week cont hydrocortisone IV TID; can utilize 25mg TID for now cont florinef (11) History of pulmonary embolism: Plan: noted typically on Eliquis BID on hold due to concerns for GI bleeding and for ERCP tomorrow (12) History of brain surgery: (13) Chronic heart failure with preserved ejection fraction: Plan: compensated cont metoprolol succinate 50mg daily resume lasix today (typically 40mg BID at home) LE edema likely from recent volume expansion w/ fluids, increased steroids, PRBCs, etc (14) Paroxysmal atrial fibrillation: Plan: remains in NSR cont metoprolol resume Eliquis after ERCP and ok with GI (15) Hypoglycemia: Plan: 2nd to fasting state in the setting of adrenal insufficiency resolved s/p stress dose steroids (16) Hypokalemia: Plan: PO replacement now repeat BMP and mag in am Plan tobacco dependence - nicoderm patch updated at bedside once again care d/w [facility] GI Admission and Anticipated Discharge Date Admission Date: July 20, 2023 Subjective a little bit more cough today than yesterday but no dyspnea NO abd pain/nausea/emesis tolerated her meals today after ERCP was canceled no fevers/chills she is concerned about her LE edema - typically has some, but this is worse than usual continues with right hip pain oxy 10's help but doesn't relieve the pain completely has been on oxy's "for years"; PCP prescribes them for R hip, etc Review of Systems Review of Systems: cv - no cp, no orthopnea pulm - no sputum GI - no N/V; no melena stool - it was brown today psych - good spirits musculo - ongoing R hip pain; no back pain Physical Exam Physical Exam: gen - NAD, looks good although winces at times from R hip pain; coughing mouth - MMM, no thrush neck - no JVD heart - RRR, s1 s2, no murmur lungs - CTA b/l, restricted air movement (no change), no wheezes or rales abd - soft, NT, ND, BS+, no HSM ext - edema - LLE worse than RLE - 2+ on left, 1-2+ on right; pulses 2+ b/l musculo - right leg is several inches shorter than left leg skin - no jaundice; not as pale today Results & Data Results & Data Vital Signs (Past 12 Hours) Vital Signs Temp Pulse Pulse Resp BP BP Pulse Ox 07/26/23 16:45 51 L 07/26/23 15:13 36.7 C 59 L 20 148/82 H 96 07/26/23 08:00 07/26/23 11:36 36.8 C 64 20 144/79 H 96 O2 Del Method 07/27/23 04:20 Room Air 07/27/23 03:38 Room Air 07/26/23 23:22 Room Air 07/26/23 19:50 Room Air 07/26/23 16:45 07/26/23 15:13 Room Air 07/26/23 08:00 Room Air 07/26/23 11:36 Room Air Laboratory Results Laboratory Results - last 48 hr 07/25/23 07/25/23 07/26/23 05:44 13:18 05:46 WBC 10.41 10.79 RBC 2.85 L 3.55 L Hgb 7.5 L 9.5 L Hct 25.5 L 31.0 L MCV 89.5 87.3 MCH 26.3 26.8 MCHC 29.4 L 30.6 L RDW Std Deviation 55.9 H 52.4 H RDW Coeff of Crow 17.3 H 17.0 H Plt Count 211 210 MPV 11.3 10.8 Absolute Nucleated RBC 0.02 0.02 Nucleated RBC % (auto) 0.2 0.2 Sodium Potassium Chloride Carbon Dioxide Anion Gap BUN Creatinine Est Cr Clr Drug Dosing Est GFR ( Amer) Est GFR (Non-Af Amer) BUN/Creatinine Ratio Glucose Calcium Magnesium Total Bilirubin AST ALT Alkaline Phosphatase Total Protein Albumin Globulin Albumin/Globulin Ratio Blood Type A Positive Antibody Screen NEGATIVE Crossmatch See Detail 07/26/23 05:46 WBC RBC Hgb Hct MCV MCH MCHC RDW Std Deviation RDW Coeff of Crow Plt Count MPV Absolute Nucleated RBC Nucleated RBC % (auto) Sodium 142 Potassium 3.2 L Chloride 113 H Carbon Dioxide 28 Anion Gap 1 L BUN 15 Creatinine 0.75 Est Cr Clr Drug Dosing 70.7 Est GFR ( Amer) 94.3 Est GFR (Non-Af Amer) 81.3 BUN/Creatinine Ratio 20.0 Glucose 115 H Calcium 7.5 L Magnesium Total Bilirubin 0.4 AST 11 L ALT 11 Alkaline Phosphatase 49 Total Protein 4.1 L Albumin 2.3 L Globulin 1.8 L Albumin/Globulin Ratio 1.3 Blood Type Antibody Screen Crossmatch PG Care Time/CCT Total # of Minutes Spent Total Time Spent with Patient: Total time spent is greater than 50% in coordination of care (as documented) at patient's floor/unit and/or counseling patient: Coding Level of Care Code 58682 SUB INP/OBS CARE 3/50MIN Diagnoses Iron deficiency anemia D50.9 Choledocholithiasis K80.50 Gastritis K29.70 Gastric ulcer K25.9 Elevated troponin R79.89 COPD exacerbation J44.1 GERD (gastroesophageal reflux disease) K21.9 Prediabetes R73.03 History of septic arthritis Z87.39 Adrenal insufficiency E27.40 History of pulmonary embolism Z86.711 History of brain surgery Z98.890 Chronic heart failure with preserved ejection fraction I50.32 Paroxysmal atrial fibrillation I48.0 Hypoglycemia E16.2 Hypokalemia E87.6
[2023-07-27] MEDS: FAMOTIDINE 20 MG TAB PO SCH ×2 (09:33→22:50)
[2023-07-27] MEDS: PANTOprazole 40 MG TAB PO SCH ×2 (09:33→21:56)
[2023-07-27] MEDS: FLUDROCORTISONE ACETATE 0.1 MG TAB PO SCH (09:33)
[2023-07-27] MEDS: METOPROLOL SUCC 50MG EXT REL TAB PO SCH (09:33)
[2023-07-27] MEDS: ATORVASTATIN 40 MG TAB PO SCH (09:33)
[2023-07-27] MEDS: NICOTINE 21 MG/24 HR TDSY TD SCH (09:34)
[2023-07-27] MEDS: FLUTICASONE FUROATE 200MCG 14 PUFFS/INHALER INH SCH (09:36)
[2023-07-27] MEDS: POLYETHYLENE (MIRALAX) 17 GM PACK PO SCH (09:37)
[2023-07-27] MEDS: UMECLIDINIUM/VILANTEROL 62.5/25MCG 7 PUFFS/INHALER INH SCH (09:38)
[2023-07-27] MEDS: HYDROcodone/ACETAMINOPHEN 10/325 TAB PO PRN ×2 (09:42→17:39)
[2023-07-27] MEDS: FLUCONAZOLE 100 MG TAB PO SCH (09:54)
[2023-07-27] MEDS ORDERED: ePHEDrine sulfate 50 MG/ML AMP IV PRN (10:26)
[2023-07-27] MEDS ORDERED: ATROPINE SULFATE 0.1 MG/ML 10ML SYR IV PRN (10:26)
[2023-07-27] MEDS ORDERED: fentaNYL citrate PF 100 MCG/2 ML VIAL IV PRN (10:26)
--- NOTE | 2023-07-27 10:26 | Anesthesiology Consultation ---
Date of Service July 27, 2023 Assessment & Plan ASA ASA4 Proposed Anesthesia Anesthesia Type: MAC Risk / Benefits Reviewed With: PT / POA / Parent / Guardian, Accepts Plan and Informed Consent Obtained History Surgery Operation Date: 07/24/23 16:30 Proposed Procedures p Esophagogastroduodenoscopy Dr Odell Bain, DO Operation Date: 07/27/23 10:50 Proposed Procedures p Endoscopic Retrograde Cholangiopancreato - Maame Serrano MD Height/Weight Height: 5 ft 4 in Weight: 76 kg Allergies Allergy/AdvReac Type Severity Reaction Status Date / Time No Known Allergies Allergy Verified 07/24/23 13:30 Medications Home Medications Medication Instructions Recorded Confirmed Last Taken naloxone 4 mg/actuation nasal 4 mg intranasal DIRECTED PRN 06/13/21 07/19/23 11/08/22 spray (Narcan) OVERSEDATION acetaminophen 325 mg tablet 650 mg PO Q6H PRN pain #30 tabs 10/04/22 07/19/23 07/18/23 furosemide 40 mg tablet 40 mg PO BID #60 tabs 10/23/22 07/19/23 07/18/23 incontinence pad, liner, disp #156 ea 02/13/23 07/19/23 Unknown hydrocortisone 10 mg tablet See Rx Instructions .Route 03/21/23 07/19/23 07/18/23 .COMPLEX #45 tabs Medical Thc 1 dose inhalation DAILY 03/28/23 07/19/23 07/18/23 fludrocortisone 0.1 mg tablet 0.1 mg PO QAM adrenal insufficiency 03/28/23 05/15/23 07/18/23 metoprolol succinate 100 mg 100 mg PO QAM 03/28/23 07/19/23 07/18/23 tablet,extended release 24 hr potassium chloride 20 mEq 20 meq PO QAM 03/28/23 07/19/23 07/18/23 tablet,extended release famotidine 20 mg tablet 20 mg PO BID #90 tabs 04/10/23 07/19/23 07/18/23 pantoprazole 40 mg tablet,delayed 40 mg PO BID #90 tabs 05/14/23 07/19/23 07/18/23 release albuterol sulfate 90 mcg/actuation 2 inh inhalation Q4H PRN shortness 05/22/23 07/19/23 07/18/23 aerosol inhaler (ProAir HFA) of breath or wheezing #18 grams albuterol sulfate 2.5 mg/3 mL 2.5 mg (3 mL) inhalation QID PRN 05/24/23 07/19/23 07/18/23 (0.083 %) solution for nebulization shortness of breath or wheezing #180 mL fluticasone fur. 200 mcg-umeclid 1 inh inhalation DAILY #60 ea 05/24/23 07/19/23 07/18/23 62.5 mcg-vilant 25 mcg inhalat.powder (Trelegy Ellipta) prednisone 20 mg tablet 20 mg PO BID 5 days #10 tabs 05/24/23 07/19/23 Unknown hydrocortisone 20 mg tablet 40 mg PO BID PRN see specific 06/07/23 07/19/23 07/18/23 directions #90 tabs ondansetron 4 mg disintegrating 4 mg PO Q6H PRN NAUSEA/VOMITING 07/06/23 07/19/23 07/18/23 tablet #20 tabs oxycodone 10 mg tablet 10 mg PO Q6H PRN pain #139 tabs 07/06/23 07/19/2307/18 atorvastatin 40 mg tablet 40 mg PO QAM #90 tabs 07/12/23 07/19/23 07/18/23 apixaban 5 mg tablet 5 mg PO BID #60 tabs 07/16/23 07/19/23 07/18/23 empagliflozin 10 mg tablet 10 mg PO QAM #90 tabs 07/16/23 07/19/23 07/18/23 (Jardiance) azithromycin 500 mg tablet 500 mg PO DAILY #1 tab 07/20/23 Unknown sacubitril 24 mg-valsartan 26 mg 1 tab PO BID #180 tabs 07/23/23 Unknown tablet (Entresto) Active Medications Generic Name Dose Route Start Last Admin Trade Name Freq PRN Reason Stop Dose Admin Acetaminophen 650 mg 07/19/23 09:23 07/26/23 22:39 Acetaminophen 325 Mg Tab PO 08/18/23 09:22 650 mg Q6H PRN Administration pain Hydrocodone Bitart/Acetaminophen 1 tab 07/27/23 08:23 07/27/23 09:42 Hydrocodone/Acetaminophen 10/325 Tab PO 08/10/23 08:22 1 tab Q6H PRN Administration Pain Apixaban 5 mg 07/19/23 09:23 07/22/23 08:29 Apixaban 5 Mg Tablet PO 08/18/23 09:22 5 mg BID JOHANNA Administration Atorvastatin Calcium 40 mg 07/19/23 09:23 07/27/23 09:33 Atorvastatin 40 Mg Tab PO 08/18/23 09:22 40 mg QAM JOHANNA Administration Famotidine 20 mg 07/19/23 09:23 07/27/23 09:33 Famotidine 20 Mg Tab PO 08/18/23 09:22 20 mg BID JOHANNA Administration Fluconazole 200 mg 07/27/23 09:00 07/27/23 09:54 Fluconazole 100 Mg Tab PO 08/06/23 08:59 200 mg QAM JOHANNA Administration Fludrocortisone Acetate 0.1 mg 07/19/23 09:23 07/27/23 09:33 Fludrocortisone Acetate 0.1 Mg Tab PO 08/18/23 09:22 0.1 mg QAM JOHANNA Administration Fluticasone Furoate 1 puffs 07/19/23 10:00 07/27/23 09:36 Fluticasone Furoate 200mcg 14 Puffs/Inhaler INH 08/18/23 09:59 1 puffs DAILY JOHANNA Administration Hydrocortisone 20 mg 07/21/23 15:45 07/22/23 16:13 Hydrocortisone 10 Mg Tab PO 08/20/23 15:44 20 mg Q24H JOHANNA Administration Hydrocortisone 40 mg 07/22/23 09:00 07/22/23 08:30 Hydrocortisone 10 Mg Tab PO 08/21/23 08:59 40 mg QAM JOHANNA Administration Hydrocortisone Sodium 0.5 mls @ 4 mls/min 07/25/23 21:00 07/27/23 05:58 Succinate 25 mg/ Syringe IV 08/24/23 20:59 4 mls/min Q8H JOHANNA Administration Metoprolol Succinate 50 mg 07/21/23 10:00 07/27/23 09:33 Metoprolol Succ 50mg Ext Rel Tab PO 08/20/23 09:59 50 mg QAM JOHANNA Administration Miscellaneous 1 each 07/19/23 09:23 07/27/23 09:32 Remove Nicoderm Patch N/A 08/18/23 09:22 1 each DAILY@0859 JOHANNA Administration Nicotine 21 mg 07/19/23 09:23 07/27/23 09:34 Nicotine 21 Mg/24 Hr Tdsy TD 08/18/23 09:22 21 mg QAM JOHANNA Administration Pantoprazole Sodium 40 mg 07/19/23 09:23 07/27/23 09:33 Pantoprazole 40 Mg Tab PO 08/18/23 09:22 40 mg BID JOHANNA Administration Polyethylene Glycol 17 gm 07/19/23 09:23 07/27/23 09:37 Polyethylene (Miralax) 17 Gm Pack PO 08/18/23 09:22 Not Given DAILY JOHANNA Potassium Chloride 20 meq 07/19/23 09:23 07/24/23 09:37 Potassium Chloride Crtab 20 Meq Tabcr PO 08/18/23 09:22 20 meq QAM JOHANNA Administration Umeclidinium/Vilanterol 1 puffs 07/19/23 10:00 07/27/23 09:38 Umeclidinium/Vilanterol 62.5/25mcg 7 Puffs/Inhaler INH 08/18/23 09:59 1 puffs DAILY JOHANNA Administration NPO Date Last Intake of Fluids: 07/26/23 Time Last Intake of Fluids: 17:30 Date Last Intake of Solids: 07/26/23 Time Last Intake of Solids: 17:30 Past Medical History Medical History (HFpEF) heart failure with preserved ejection fraction Acute renal failure Adrenal insufficiency follows with [facility] Endocrinology Asthma PT STATES TAKES RESCUE INHALER DAILY C. difficile enteritis hx - no recent episodes Cardiomyopathy Carotid stenosis, left S/P L CEA (02/18/20) (Prior to CEA patient had 80% LICA stenosis ) Cerebral aneurysm Per records, pt unaware No significant aneurysm noted with head CTA and brain MRI from 01/2020 Chronic heart failure with preserved ejection fraction CKD (chronic kidney disease) stage III Continuous tobacco abuse CVA (cerebral vascular accident) CVA 02/11/20- no residual effects, follows with [facility], patient was on plavix until ~1 month after left CEA surgery, now on ASA 81mg Depression with anxiety Edema hx - doing well currently Eosinophilic esophagitis GERD (gastroesophageal reflux disease) History of COVID-19 tested positive 10/2022 at [facility] -- fatigue, weakness, lethargy, chills/fever History of Meniere's disease History of MTHFR mutation per medical records -- pt unaware History of prediabetes HGBA1C 6.1% on 01/28/21 History of revision of total replacement of right hip joint 03/25/21 - [facility]; explantation old hardware, wound vac placement. History of septic shock 03/2021 - due to septic R hip; 04/2021 - again due to septic R hip - hospitalized [facility] each admission. Pseudomonas, proteus, oj albicans. 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 uses wheelchair, able to stand and pivot Osteoarthritis Paroxysmal atrial fibrillation hx -> follows with Dr. Sinclair Pulmonary emboli ~2020. pt unsure why she had the blood clot. treated with medication Pulmonary hypertension hx -- pt unaware RBBB SOB (shortness of breath) Type 2 diabetes mellitus pt denies UTI (urinary tract infection) hx VRE infection (vancomycin resistant Enterococcus) pt unaware -- per medical record dx 2021 at [facility] (urine) Weight loss, unintentional for the last 2 years -> has lost about 70lbs. Exercise / Class Metabolic Activity II 4-5 Yardwork/Stairs/Walk up hill Past Family History Family History Mother Diabetes Family history of diabetes mellitus Sister Diabetes Family history of diabetes mellitus Arterial thrombosis Amputation of leg Father Heart disease Lung disease Other No family history of adverse response to anesthesia Denies family history of Ovarian cancer Prostate cancer Myocardial infarction Breast cancer Colorectal cancer Past Surgical History Surgical History H/O carotid endarterectomy Left CEA: 02/18/20: Grade view 1 with head lift, MAC#3, ETT 7.0 at [facility] History of appendectomy History of bilateral tubal ligation History of brain surgery ~2014 (Meniere's treatment/[facility]) History of History of cataract surgery R/L History of section x1 History of cholecystectomy History of colonoscopy History of esophagogastroduodenoscopy (EGD) History of hip surgery removal of the right hip joint replacement 01/2023 d/t chronic infection. History of incision and drainage right hip - multiple I/D's, 03/2021-04/2021; [facility]. History of tonsillectomy History of tooth extraction History of total hip arthroplasty RT> with repair S/P carotid endarterectomy Status post revision of total hip replacement (~01/2021) Past Anesthesia History No Hx of Anesthesia Complications and No Family Hx of Anesthesia Complications History of PONV No Hx of PONV and No Hx of Motion Sickness Social History Smoking Status: Current every day smoker tobacco type: cigarettes Smoking cigarettes per day: 10 to 15 a day. Sometimes a pack a day. Educated Pt on -Quit Now. Do You Dip or Chew Tobacco: No Hx Alcohol Use: No Hx Substance Use: No substance use type: marijuana Substance Use Type Other:: daily use Last Used Substance: Unknown Last Used Substance Other:: 03/27/23 Review of Systems denies fever/cough/ colds/ chest pain/ SOB/ ERIC denies ERIC Physical Exam Vital Signs Last Vital Signs Temp 36.7 C 07/27/23 10:07 Pulse 56 L 07/27/23 10:07 Resp 20 07/27/23 10:07 BP 185/105 H 07/27/23 10:07 Pulse Ox 99 07/27/23 10:07 O2 Del Method Room Air 07/27/23 10:07 FiO2 21 07/25/23 07:25 ENMT Mouth: + edentulous; no TMJ abnormality and no dentition abnormality Thyromental Distance: > or= 3.5 Finger Breadths Mallampati Class: II Neck neck extension not limited Respiratory normal respiratory effort; no respiratory distress Auscultation: lungs clear to auscultation bilaterally Cardiovascular Rate/Rhythm: regular rate and regular rhythm Neurologic moves all extremities Psychiatric Orientation: alert and oriented x 3 Testing Laboratory Results 07/27/23 05:57 07/27/23 05:57 PT 10.3 Seconds (9.0-12.0) 07/19/23 03:22 INR 0.9 (0.9-1.1) 07/19/23 03:22 APTT 25.0 Seconds (21.0-31.0) 07/19/23 03:22 Hemoglobin A1c 5.9 % (4.5-5.6) H 07/25/23 05:44 Blood Type A Positive 07/25/23 13:18 Antibody Screen NEGATIVE 07/25/23 13:18 07/19/23 05:23 Aerobic Blood Culture - Final Blood No growth in Aerobic bottle after 5 days. Anaerobic Blood Culture - Final No growth in Anaerobic bottle after 5 days. 07/19/23 04:35 Aerobic Blood Culture - Final Blood No growth in Aerobic bottle after 5 days. Anaerobic Blood Culture - Final No growth in Anaerobic bottle after 5 days. Electrocardiogram Date: 07/19/23 Test Reason : Blood Pressure : / mmHG Vent. Rate : 090 BPM Atrial Rate : 090 BPM P-R Int : 128 ms QRS Dur : 094 ms QT Int : 362 ms P-R-T Axes : 069 077 035 degrees QTc Int : 442 ms Sinus rhythm with Premature atrial complexes Low voltage QRS Incomplete right bundle branch block Abnormal ECG When compared with ECG of 09-NOV-2022 08:24, Premature ventricular complexes are no longer Present Premature atrial complexes are now Present QT has shortened Confirmed by Edwin Miranda ([id number]) on 07/19/2023 2:58:10 PM Chest X-Ray Date: 07/19/23 XR chest 1V portable CLINICAL HISTORY: Dyspnea TECHNIQUE: Single frontal radiograph of the chest was obtained. Comparison: Comparison is made to chest radiograph 11/09/2022 FINDINGS: No lines and tubes are seen. The cardiomediastinal silhouette is normal. The lungs are clear. No evidence of pleural effusion or pneumothorax. IMPRESSION: No acute abnormalities and in particular no radiographic evidence of pneumonia. Echocardiogram Date: 05/10/23 EF: 60-65 LV Function: normal RWMA: + none mild pulmonary HTN
[2023-07-27] MEDS: ALBUT/IPRATROP 3MG/0.5MG NEB 3 ML VIAL NEB PRN (10:36)
[2023-07-27] MEDS ORDERED: LIDOCAINE 2% 2 ML VIAL/AMP(20MG/ML) INFIL ONE (10:53)
[2023-07-27] MEDS ORDERED: PROPOFOL IV EMULSION 10 MG/ML 20 ML VIAL IV ONE (10:53)
[2023-07-27] MEDS ORDERED: GLYCOPYRROLATE 0.2 MG/ML VIAL ONE (10:53)
[2023-07-27] MEDS ORDERED: ONDANSETRON INJ 2 MG/ML 2 ML VIAL ONE (10:53)
[2023-07-27] MEDS ORDERED: fentaNYL citrate PF 100 MCG/2 ML VIAL ONE (10:53)
--- NOTE | 2023-07-27 11:00 | History & Physical Bridge Note ---
Date of Service July 27, 2023 History & Physical Bridge Note I have examined the patient, reviewed the History & Physical and in the interval since the performance of the History & Physical I have noted the following changes of clinical significance: no changes noted ERCP Patient was explained in detail regarding risks, benefits, limitations and alternatives of the above endoscopic procedure. Risks of intravenous sedation used for procedure were also explained. Risks include, but not limited to perforation, bleeding, infection, respiratory distress, cardiac arrest and . Patient is also aware about the possibility of missed lesion. Patient's questions were answered. The patient verbalized understanding the information and agreed to undergo the procedure.
[2023-07-27] MEDS ORDERED: LACTATED RINGER'S 1,000 ML IV SCH (11:15)
[2023-07-27] MEDS ORDERED: LABETALOL HCL IV 5 MG/ML 20ML IV ONE ×2 (11:21→11:30)
--- NOTE | 2023-07-27 11:30 | Operative Report ---
Post Operative Report Pre & Post Diagnosis Operation Date: 07/27/23 10:50 Pre-Op Diagnosis: SHORTNESS OF BREATH I identified the patient and participated in the time-out.: Yes Procedure Operation Date: 07/27/23 10:50 <No data on this case meets the specified criteria> Surgeon Maame Serrano MD Hospice Nurse Practitioner None Estimated Blood Loss 0 Findings See Below (CBD stone removed) Specimens None Description of Procedure ERCP I attest to the content of the Intraoperative Record and any orders documented therein. Any exceptions are noted below.
[2023-07-27] MEDS ORDERED: ceFAZolin 330 MG/ML 1 GM VIAL ONE (11:33)
--- NOTE | 2023-07-27 11:43 | GI REPORT ---
Patient Name: Radha Tello Procedure Date: 07/27/2023 10:54 AM Date of : 1955 Admit Type: Inpatient Age: 68 Gender: Female Attending MD: Maame Serrano MD, Procedure: ERCP Providers: Maame Serrano MD Referring MD: Brandon Collins Indications: Abnormal MRCP, For therapy of bile duct stone(s) Medicines: Propofol per Anesthesia Complications: No immediate complications. Estimated Blood Loss: Estimated blood loss: none. Procedure: Pre-Anesthesia Assessment: - Prior to the procedure, a History and Physical was performed, and patient medications, allergies and sensitivities were reviewed. The patient's tolerance of previous anesthesia was reviewed. - The risks and benefits of the procedure and the sedation options and risks were discussed with the patient. All questions were answered and informed consent was obtained. - Patient identification and proposed procedure were verified prior to the procedure by the physician and the nurse. The procedure was verified in the procedure room. - Pre-procedure physical examination revealed no contraindications to sedation. After obtaining informed consent, the scope was passed under direct vision. Throughout the procedure, the patient's blood pressure, pulse, and oxygen saturations were monitored continuously. The Endoscope was introduced through the mouth, and advanced to the duodenum and used to inject contrast into the bile duct. After obtaining informed consent, the scope was passed under direct vision. Throughout the procedure, the patient's blood pressure, pulse, and oxygen saturations were monitored continuously. The ERCP was accomplished without difficulty. The patient tolerated the procedure well. Findings: A blocker and sewer film of the abdomen was obtained. Surgical clips, consistent with a previous cholecystectomy, were seen in the area of the right upper quadrant of the abdomen. The esophagus was successfully intubated under direct vision. The scope was advanced to a normal major papilla in the descending duodenum without detailed examination of the pharynx, larynx and associated structures, and upper GI tract. The upper GI tract was grossly normal. A biliary sphincterotomy had been performed. The sphincterotomy appeared open. A 0.035 inch straight standard wire was passed into the biliary tree. The short-nosed traction sphincterotome was passed over the guidewire and the bile duct was then deeply cannulated. Contrast was injected. I personally interpreted the bile duct images. Ductal flow of contrast was adequate. Image quality was adequate. Contrast extended to the main bile duct. Opacification of the entire biliary tree except for the gallbladder was successful. The maximum diameter of the ducts was 12 mm. Dilation of the common bile duct with a 10 mm balloon dilator was successful. The biliary tree was swept with a 15 mm balloon starting at the bifurcation. One stone was removed. No stones remained. Impression: - Choledocholithiasis was found. Complete removal was accomplished by balloon extraction. Recommendation: - Return patient to hospital [facility] for ongoing care. - Resume Eliquis (apixaban) at prior dose in 3 days. Maame Serrano MD 07/27/2023 11:43:08 AM This report has been signed electronically. Note Initiated On: 07/27/2023 10:54 AM Number of Addenda: 0 I attest to the content of the Intraoperative Record and orders documented therein, exceptions below {[id number]}
--- NOTE | 2023-07-27 12:27 | Fluoroscopy Report ---
[place] ERCP biliary ductal CLINICAL HISTORY: ERCP ADD ON. Choledocholithiasis. COMPARISON STUDY: MRCP 07/24/2023. FLUOROSCOPY TIME: 28 seconds FLUOROSCOPY IMAGES: 7 Ka,r: 10.4 mGy FINDINGS: The ampulla was cannulated and contrast was injected into the distended common bile duct. A balloon sweep was performed. Prior cholecystectomy. IMPRESSION: Fluoroscopic assistance as above. ACT 112: Negative or not required by law. Electronically signed by: Brandon Duggan M.D. 07/27/2023 12:25 PM
[2023-07-27] MEDS: ACETAMINOPHEN 325 MG TAB PO PRN (13:10)
--- NOTE | 2023-07-27 13:53 | Anesthesiology Progress Note ---
Date of Service July 27, 2023 Anesthesia Post Procedure Vital Signs Vital Signs: Temp Pulse Pulse Pulse Resp BP BP 07/27/23 12:44 72 20 175/84 H 07/27/23 12:30 97.3 F L 74 20 168/86 H 07/27/23 12:20 97.3 F L 69 19 173/84 H 07/27/23 12:10 70 15 176/83 H 07/27/23 12:00 75 21 173/87 H 07/27/23 09:30 07/27/23 11:50 79 19 161/84 H 07/27/23 11:44 97.2 F L 80 18 138/78 07/27/23 10:36 58 L 18 07/27/23 10:07 98.1 F 56 L 20 185/105 H 07/27/23 08:11 97.7 F 50 L 16 155/84 H 07/27/23 08:00 67 07/27/23 04:20 97.5 F L 57 L 18 138/75 07/27/23 03:38 07/26/23 23:22 98.4 F 75 16 156/85 H 07/26/23 19:50 98.6 F 63 18 134/81 07/26/23 16:45 51 L 07/26/23 15:13 98.1 F 59 L 20 148/82 H Pulse Ox O2 Del Method O2 Flow Rate 07/27/23 12:44 97 Room Air 07/27/23 12:30 94 Room Air 07/27/23 12:20 94 Room Air 07/27/23 12:10 96 Room Air 07/27/23 12:00 94 Room Air 07/27/23 09:30 Room Air 07/27/23 11:50 97 Room Air 07/27/23 11:44 100 Oxymask 2 07/27/23 10:36 96 Room Air 07/27/23 10:07 99 Room Air 07/27/23 08:11 98 Room Air 07/27/23 08:00 07/27/23 04:20 97 Room Air 07/27/23 03:38 Room Air 07/26/23 23:22 96 Room Air 07/26/23 19:50 96 Room Air 07/26/23 16:45 07/26/23 15:13 96 Room Air Pain Intensity Right Hip: Pain Intensity: 9 Transfer of Care Handoff Completed per policy Notes Mental Status: alert / awake / arousable and participated in evaluation Patient Amnestic to Procedure: Yes Nausea / Vomiting: adequately controlled Pain: adequately controlled Airway Patency, RR, SpO2: stable & adequate BP & HR: stable & adequate Hydration State: stable & adequate Anesthetic Complications: no major complications apparent and Pt Satisfied with anesthetic care
--- NOTE | 2023-07-27 14:55 | Electrocardiogram Report ---
Test Reason : Blood Pressure : / mmHG Vent. Rate : 049 BPM Atrial Rate : 049 BPM P-R Int : 142 ms QRS Dur : 108 ms QT Int : 474 ms P-R-T Axes : 036 076 047 degrees QTc Int : 428 ms Sinus bradycardia Low voltage QRS Right bundle branch block Abnormal ECG When compared with ECG of 19-JUL-2023 03:09, Premature atrial complexes are no longer Present Vent. rate has decreased BY 41 BPM T wave inversion no longer evident in Anterior leads Confirmed by Bassem Jenkins ([id number] on 07/27/2023 2:54:47 PM Referred By: REFERRED SELF Confirmed By:Bassem Jenkins
[2023-07-27] MEDS: ONDANSETRON INJ 2 MG/ML 2 ML VIAL IV PRN (17:39)
--- NOTE | 2023-07-27 20:02 | Hospitalist Progress Note ---
Date of Service July 27, 2023 Assessment & Plan (1) Choledocholithiasis: Plan: s/p ERCP today by [facility] single stone removed from CBD no evidence of cholangitis no stent placed having pain post-ERCP crampy, intermittent check abd series x-rays - r/o any free air check lfts and lipase in am clear liquids ordered by GI for today per GI - can resume Eliquis in 3 days (2) Iron deficiency anemia: Plan: ferritin 23 transferrin sat 8% s/p EGD 07/24/23 - mild-mod gastritis only but no PUD and no signs of recent bleeding cont PPI bid in ideal world would have colonoscopy in future to be complete and, if negative, capsule endoscopy s/p 1 unit PRBCs 07/25/23 for Hb 7.5 Hb remains stable since s/p 2 doses of IV venofer while here will give 3rd dose tomorrow cbc am for stability (3) Gastritis: Plan: as seen on EGD appreciate Dr Bain's assistance cont PPI bx with fungal organisms seen - started fluconazole 200mg daily x 10-14 days day #1 today (4) Gastric ulcer: Plan: 03/2023 resolved - no PUD on EGD this admission (5) Elevated troponin: Plan: peak HS trop 19 very minimal elevation no obvious ischemic symptoms likely myocardial demand ischemia (6) COPD exacerbation: Plan: present on admission resolved did receive IV steroids earlier in the admission and again the last few days stable in room air (7) GERD (gastroesophageal reflux disease): Plan: cont PPI (8) Prediabetes: Plan: a1c 7.3% in 2021 a1c this admission 5.9% - may not be reliable due to anemia either way glucoses are stable (9) History of septic arthritis: Plan: right hip s/p removal of all hardware at [facility] in spring 2022 cont pain meds prn she has been on 10mg doses of oxycodone for years likely tolerance incomplete pain relief would really benefit from long-acting pain meds - defer to PCP who manages pain per pharmacy the diflucan interacts with all narcotics causing potentiation of narcotics thus, to be safe, change oxy to norco 10's for now then revert back to oxy after diflucan course is complete (10) Adrenal insufficiency: Plan: follows with [facility] typically on hydrocortisone BID + florinef stress-dose steroids due to EGD and ERCP this week cont hydrocortisone IV TID; can utilize 25mg TID for now can likely change back to PO hydrocortisone tomorrow cont kelin (11) History of pulmonary embolism: Plan: noted typically on Eliquis BID hold 3 days post-ERCP per GI recs SCDs of legs in meantime (12) History of brain surgery: (13) Chronic heart failure with preserved ejection fraction: Plan: compensated cont metoprolol succinate 50mg daily LE edema likely from recent volume expansion w/ fluids, increased steroids, PRBCs, etc edema is improved today lasix 40mg qam starting in am then ultimately BID per home dosing (14) Paroxysmal atrial fibrillation: Plan: remains in NSR cont metoprolol resume Eliquis in 3 days post-ERCP (resume 07/30/23) (15) Hypokalemia: Plan: replace repeat level am mag noted to be normal Plan tobacco dependence - nicoderm patch updated at bedside once again care d/w [facility] PT/OT lori this admission show she can likely return home with at d/c Admission and Anticipated Discharge Date Admission Date: July 20, 2023 Subjective saw patient post-ERCP she was having intermittent crampy abd pain in the upper abdomen - different than the pains she had had at home pre-hospital did not eat dinner - no appetite no vomiting having pain in right hip still no dyspnea Review of Systems Review of Systems: gen - no fevers or chills; fatigue/weak cv - no cp, no orthopnea; edema improved per patient & pulm - cough but no dyspnea at rest GI - see HPI Physical Exam Physical Exam: gen - in pain (abdominal pain) - comes/ goes during the visit & exam mouth - MMM, no thrush neck - no JVD heart - RRR, s1 s2, no murmur lungs - CTA b/l, restricted air movement (no change), no wheezes or rales abd - soft, ND, BS+, no HSM; mildly tender high epigastric region to palpation ext - edema - improved; 1+ on left, <1+ on right; pulses 2+ b/l musculo - right leg is several inches shorter than left leg Results & Data Results & Data Vital Signs (Past 12 Hours) Vital Signs Temp Pulse Pulse Pulse Resp BP Pulse Ox 07/27/23 16:05 69 07/27/23 14:50 36.5 C 75 18 158/81 H 97 07/27/23 12:44 72 20 175/84 H 97 07/27/23 12:30 36.3 C L 74 20 168/86 H 94 07/27/23 12:20 36.3 C L 69 19 173/84 H 94 07/27/23 12:10 70 15 176/83 H 96 07/27/23 12:00 75 21 173/87 H 94 07/27/23 09:30 07/27/23 11:50 79 19 161/84 H 97 07/27/23 11:44 36.2 C L 80 18 138/78 100 07/27/23 10:36 58 L 18 96 07/27/23 10:07 36.7 C 56 L 20 185/105 H 99 07/27/23 08:11 36.5 C 50 L 16 155/84 H 98 O2 Del Method O2 Flow Rate 07/27/23 16:05 07/27/23 14:50 Room Air 07/27/23 12:44 Room Air 07/27/23 12:30 Room Air 07/27/23 12:20 Room Air 07/27/23 12:10 Room Air 07/27/23 12:00 Room Air 07/27/23 09:30 Room Air 07/27/23 11:50 Room Air 07/27/23 11:44 Oxymask 2 07/27/23 10:36 Room Air 07/27/23 10:07 Room Air 07/27/23 08:11 Room Air Laboratory Results Laboratory Results - last 48 hr 07/27/23 07/27/23 05:57 05:57 WBC 9.85 RBC 3.43 L Hgb 9.2 L Hct 30.0 L MCV 87.5 MCH 26.8 MCHC 30.7 L RDW Std Deviation 52.5 H RDW Coeff of Crow 17.0 H Plt Count 203 MPV 10.9 Absolute Nucleated RBC Nucleated RBC % (auto) Sodium 143 Potassium 3.1 L Chloride 112 H Carbon Dioxide 28 Anion Gap 3 BUN 17 Creatinine 0.95 Est Cr Clr Drug Dosing 55.8 Est GFR ( Amer) 70.8 Est GFR (Non-Af Amer) 61.1 BUN/Creatinine Ratio 17.9 Glucose 97 Calcium 7.4 L Magnesium 1.9 Total Bilirubin AST ALT Alkaline Phosphatase Total Protein Albumin Globulin Albumin/Globulin Ratio Lipase PG Care Time/CCT Total # of Minutes Spent Total Time Spent with Patient: Total time spent is greater than 50% in coordination of care (as documented) at patient's floor/unit and/or counseling patient: Coding Level of Care Code 89878 SUB INP/OBS CARE 3/50MIN Diagnoses Choledocholithiasis K80.50 Iron deficiency anemia D50.9 Gastritis K29.70 Gastric ulcer K25.9 Elevated troponin R79.89 COPD exacerbation J44.1 GERD (gastroesophageal reflux disease) K21.9 Prediabetes R73.03 History of septic arthritis Z87.39 Adrenal insufficiency E27.40 History of pulmonary embolism Z86.711 History of brain surgery Z98.890 Chronic heart failure with preserved ejection fraction I50.32 Paroxysmal atrial fibrillation I48.0 Hypokalemia E87.6
[2023-07-28] MEDS: HYDROcodone/ACETAMINOPHEN 10/325 TAB PO PRN ×2 (00:12→20:08)
[2023-07-28] MEDS: ONDANSETRON INJ 2 MG/ML 2 ML VIAL IV PRN (00:15)
[2023-07-28] MEDS: HYDROCORTISONE SOD 25 MG in SYRINGE 0 ML IV SCH (05:01)
[2023-07-28 06:00] LABS: Hematocrit (blood only) 32.9 % (37.0-47.0); Hemoglobin 10.2 g/dl (12.0-16.0); Mean Corpuscular Hemoglobin 27.3 pg (25.0-34.0); Mean Platelet Volume 11.1 fL (9.4-12.4); Nucleated RBC # (auto) 0.02 K/uL (0.00-0.12); Nucleated RBC % (auto) 0.2 %; Platelet Count 223 K/uL (130-400); RDW Standard Deviation 52.4 fL (36.4-46.3); Red Blood Count 3.74 M/uL (4.20-5.40); White Blood Count 12.28 K/ul (4.8-10.8)
[2023-07-28 06:15] LABS: Albumin Globulin Ratio 1.4 (0.9-2); Albumin Level 2.5 gm/dl (3.4-5.0); Bilirubin,Total 0.4 mg/dl (0.2-1.0); Calcium 7.6 mg/dl (8.6-10.3); Est GFR (African American) 66.6 ml/min; Est GFR (Non-African American) 57.4 ml/min; Globulin 1.8 gm/dl (2.5-4.0); Total Protein 4.3 gm/dl (6.0-8.3)
[2023-07-28] MEDS ORDERED: IRON SUCROSE 300 MG in SODIUM CHLORIDE 0.9% 250 ML IV ONE (08:26)
[2023-07-28] MEDS: FLUTICASONE FUROATE 200MCG 14 PUFFS/INHALER INH SCH (08:54)
[2023-07-28] MEDS: UMECLIDINIUM/VILANTEROL 62.5/25MCG 7 PUFFS/INHALER INH SCH (08:54)
[2023-07-28] MEDS: FLUCONAZOLE 100 MG TAB PO SCH (08:55)
[2023-07-28] MEDS: POLYETHYLENE (MIRALAX) 17 GM PACK PO SCH (08:55)
[2023-07-28] MEDS: FAMOTIDINE 20 MG TAB PO SCH ×2 (08:55→20:06)
[2023-07-28] MEDS: METOPROLOL SUCC 50MG EXT REL TAB PO SCH (08:56)
[2023-07-28] MEDS: ATORVASTATIN 40 MG TAB PO SCH (08:57)
[2023-07-28] MEDS: FLUDROCORTISONE ACETATE 0.1 MG TAB PO SCH (08:57)
[2023-07-28] MEDS: NICOTINE 21 MG/24 HR TDSY TD SCH (08:58)
[2023-07-28] MEDS: PANTOprazole 40 MG TAB PO SCH ×2 (08:59→20:06)
[2023-07-28] MEDS ORDERED: FUROSEMIDE 40 MG TAB PO SCH (09:00)
[2023-07-28] MEDS: HYDROCORTISONE 10 MG TAB PO SCH (10:50)
--- NOTE | 2023-07-28 10:50 | XRay Report ---
XR abdomen 2V w PA chest CLINICAL HISTORY: s/p ERCP, upper abd pain; free air? other? TECHNIQUE: 2 views of the abdomen were obtained. A single view of the chest was obtained. Comparison: None available at the time of this dictation. FINDINGS: No lines and tubes are seen. The cardiomediastinal silhouette is normal. The lungs are clear. No evid ence of pleural effusion or pneumothorax. The bowel gas pattern is nonobstructive. A moderate amount of stool is noted within the large bowel. A gastric bubble is seen but there is no definite evidence of pneumoperitoneum. Redemonstration of di slocation and chronic deformity of the right hip. IMPRESSION: No pneumoperitoneum is seen. ACT 112: Negative or not required by law. Electronically signed by: Simba Mcclain M.D. 07/28/2023 10:48 AM
[2023-07-28] MEDS: ALBUT/IPRATROP 3MG/0.5MG NEB 3 ML VIAL NEB PRN (11:12)
[2023-07-28] MEDS ORDERED: FUROSEMIDE 40 MG TAB PO ONE (18:18)
--- NOTE | 2023-07-28 21:21 | Hospitalist Progress Note ---
Date of Service July 28, 2023 Assessment & Plan (1) Choledocholithiasis: Plan: POD #1 - s/p ERCP by [facility] single stone removed from CBD no evidence of cholangitis no stent placed had pain post-ERCP - crampy, intermittent abd series x-rays - no free air; mild constipation only Lfts and lipase today wnl tolerating clear liquids advance to full liquids in am per GI - can resume Eliquis in 3 days (07/30/23) (2) Iron deficiency anemia: Plan: ferritin 23 transferrin sat 8% s/p EGD 07/24/23 - mild-mod gastritis only but no PUD and no signs of recent bleeding cont PPI bid in ideal world would have colonoscopy in future to be complete and, if negative, capsule endoscopy s/p 1 unit PRBCs 07/25/23 for Hb 7.5 Hb remains stable since s/p 2 doses of IV venofer while here give 3rd dose today then stop cbc am for stability (3) Gastritis: Plan: as seen on EGD appreciate Dr Bain's assistance cont PPI bx with fungal organisms seen - started fluconazole 200mg daily x 10-14 days day #2 today (4) Gastric ulcer: Plan: 03/2023 resolved - no PUD on EGD this admission (5) Elevated troponin: Plan: peak HS trop 19 very minimal elevation no obvious ischemic symptoms likely myocardial demand ischemia (6) COPD exacerbation: Plan: present on admission resolved stable in RA (7) GERD (gastroesophageal reflux disease): Plan: cont PPI twice daily (8) Prediabetes: Plan: a1c 7.3% in 2021 a1c this admission 5.9% - may not be reliable due to anemia either way glucoses are stable (9) History of septic arthritis: Plan: right [place] s/[place] all [place] [facility] [place] cont pain meds prn she has been on 10mg doses of oxycodone for years likely tolerance incomplete pain relief would really benefit from long-acting pain meds - defer to PCP who manages pain per pharmacy the diflucan interacts with all narcotics causing potentiation of narcotics thus, to be safe, changed oxy to norco 10's then revert back to oxy after diflucan course is complete (10) Adrenal insufficiency: Plan: follows with [facility] typically on hydrocortisone BID + florinef stress-dose steroids due to EGD and ERCP this week stopped IV hydrocortisone change back to PO hydrocortisone today then wean to her usual dose of 10mg am, 5mg pm cont angelikaf (11) History of pulmonary embolism: Plan: noted typically on Eliquis BID hold 3 days post-ERCP per GI recs (resume 07/30/23) SCDs of legs in meantime (12) History of brain surgery: (13) Chronic heart failure with preserved ejection fraction: Plan: compensated cont metoprolol succinate 50mg daily LE edema likely from recent volume expansion w/ fluids, increased steroids, PRBCs, etc edema slowly improving lasix 40mg BID (14) Paroxysmal atrial fibrillation: Plan: remains in NSR cont metoprolol resume Eliquis in 3 days post-ERCP (resume 07/30/23) (15) Hypokalemia: Plan: replaced resolved cont K supplementation daily due to lasix use Plan tobacco dependence - nicoderm patch updated at bedside yesterday PT/OT evals this admission show she can likely return home with at d/c home on Sunday? Admission and Anticipated Discharge Date Admission Date: July 20, 2023 Subjective patient had "good day" NO abdominal pain/nausea/emesis tolerating clears without difficulty breathing is good mild cough only right hip pain better today still with edema tele wnl Review of Systems Review of Systems: gen - feels good, no fevers cv - no chest pain pulm - no dyspnea at rest GI - no pain, vomiting, no melena stool Physical Exam Physical Exam: gen - looks very good today; NAD mouth - MMM, no thrush neck - no JVD heart - RRR, s1 s2, no murmur lungs - CTA b/l, restricted air movement (no change), no wheezes or rales abd - soft, ND, BS+, NT, no HSM ext - edema 1+ on left, <1+ on right; pulses 2+ b/l musculo - right leg is several inches shorter than left leg (baseline) skin - scattered ecchymoses on all limbs Results & Data Results & Data Vital Signs (Past 12 Hours) Vital Signs Temp Pulse Pulse Resp BP Pulse Ox O2 Del Method 07/28/23 20:02 36.7 C 59 L 18 147/83 H 97 Room Air 07/28/23 14:30 36.6 C 81 16 141/74 H 96 Room Air 07/28/23 14:23 82 07/28/23 12:01 37.0 C 62 16 139/83 97 Room Air 07/28/23 11:13 76 18 95 Room Air 07/28/23 10:39 Room Air Laboratory Results Laboratory Results - last 24 hr 07/28/23 07/28/23 05:23 05:23 WBC 12.28 H RBC 3.74 L Hgb 10.2 L Hct 32.9 L MCV 88.0 MCH 27.3 MCHC 31.0 L RDW Std Deviation 52.4 H RDW Coeff of Crow 17.0 H Plt Count 223 MPV 11.1 Absolute Nucleated RBC 0.02 Nucleated RBC % (auto) 0.2 Sodium 143 Potassium 4.0 D Chloride 113 H Carbon Dioxide 27 Anion Gap 3 BUN 20 Creatinine 1.00 Est Cr Clr Drug Dosing 53.0 Est GFR ( Amer) 66.6 Est GFR (Non-Af Amer) 57.4 BUN/Creatinine Ratio 20.0 Glucose 126 H Calcium 7.6 L Total Bilirubin 0.4 AST 16 ALT 13 Alkaline Phosphatase 52 Total Protein 4.3 L Albumin 2.5 L Globulin 1.8 L Albumin/Globulin Ratio 1.4 Lipase 13 PG Care Time/CCT Total # of Minutes Spent Total Time Spent with Patient: Total time spent is greater than 50% in coordination of care (as documented) at patient's floor/unit and/or counseling patient: Coding Level of Care Code 59097 SUB INP/OBS CARE 2MIN Diagnoses Choledocholithiasis K80.50 Iron deficiency anemia D50.9 Gastritis K29.70 Gastric ulcer K25.9 Elevated troponin R79.89 COPD exacerbation J44.1 GERD (gastroesophageal reflux disease) K21.9 Prediabetes R73.03 History of septic arthritis Z87.39 Adrenal insufficiency E27.40 History of pulmonary embolism Z86.711 History of brain surgery Z98.890 Chronic heart failure with preserved ejection fraction I50.32 Paroxysmal atrial fibrillation I48.0 Hypokalemia E87.6
[2023-07-29 06:38] LABS: Hematocrit (blood only) 32.4 % (37.0-47.0); Hemoglobin 10.1 g/dl (12.0-16.0); Mean Corpuscular Hemoglobin 27.2 pg (25.0-34.0); Mean Corpuscular Hgb Conc 31.2 g/dL (32.0-36.0); Mean Corpuscular Volume 87.1 fL (80.0-100.0); Mean Platelet Volume 10.9 fL (9.4-12.4); Nucleated RBC # (auto) 0.03 K/uL (0.00-0.12); Nucleated RBC % (auto) 0.3 %; Platelet Count 193 K/uL (130-400); RDW Coefficient of Variation 17.2 % (11.5-14.5); RDW Standard Deviation 52.7 fL (36.4-46.3); Red Blood Count 3.72 M/uL (4.20-5.40); White Blood Count 10.19 K/ul (4.8-10.8)
[2023-07-29] MEDS: ACETAMINOPHEN 325 MG TAB PO PRN (07:54)
[2023-07-29] MEDS: FAMOTIDINE 20 MG TAB PO SCH ×2 (08:07→21:30)
[2023-07-29] MEDS: UMECLIDINIUM/VILANTEROL 62.5/25MCG 7 PUFFS/INHALER INH SCH (08:07)
[2023-07-29] MEDS: POLYETHYLENE (MIRALAX) 17 GM PACK PO SCH (08:07)
[2023-07-29] MEDS: FLUTICASONE FUROATE 200MCG 14 PUFFS/INHALER INH SCH (08:07)
[2023-07-29] MEDS: PANTOprazole 40 MG TAB PO SCH ×2 (08:07→21:30)
[2023-07-29] MEDS: NICOTINE 21 MG/24 HR TDSY TD SCH (08:09)
[2023-07-29] MEDS: ATORVASTATIN 40 MG TAB PO SCH (08:10)
[2023-07-29] MEDS: FLUCONAZOLE 100 MG TAB PO SCH (08:11)
[2023-07-29] MEDS: FLUDROCORTISONE ACETATE 0.1 MG TAB PO SCH (08:11)
[2023-07-29] MEDS: METOPROLOL SUCC 50MG EXT REL TAB PO SCH (08:14)
[2023-07-29] MEDS: HYDROCORTISONE 10 MG TAB PO SCH ×2 (08:25→15:49)
[2023-07-29] MEDS: POTASSIUM CHLORIDE CRTAB 20 MEQ TABCR PO SCH (08:29)
[2023-07-29] MEDS ORDERED: FUROSEMIDE 40 MG TAB PO SCH (09:00)
--- NOTE | 2023-07-29 13:41 | Hospitalist Progress Note ---
Date of Service July 29, 2023 Assessment & Plan (1) Choledocholithiasis: Plan: POD #2 - s/p ERCP by [facility] single stone removed from CBD no evidence of cholangitis no stent placed had pain post-ERCP - crampy, intermittent abd series x-rays - no free air; mild constipation only Lfts and lipase 10/ wnl tolerating full liquids advance to regular food per GI - can resume Eliquis in 3 days (07/30/23) (2) Iron deficiency anemia: Plan: ferritin 23 transferrin sat 8% s/p EGD 07/24/23 - mild-mod gastritis only but no PUD and no signs of recent bleeding cont PPI bid in ideal world would have colonoscopy in future to be complete and, if negative, capsule endoscopy s/p 1 unit PRBCs 07/25/23 for Hb 7.5 Hb remains stable since including today's H/H s/p 3 doses of IV venofer while here tolerated each w/o incident H/H in am again for stability (3) Gastritis: Plan: as seen on EGD appreciate Dr Bain's assistance cont PPI bx with fungal organisms seen - started fluconazole 200mg daily x 10-14 days day #3 today EKG 07/27 with normal QTc (4) Gastric ulcer: Plan: 03/2023 resolved - no PUD on EGD this admission (5) Elevated troponin: Plan: peak HS trop 19 very minimal elevation no obvious ischemic symptoms likely myocardial demand ischemia (6) COPD exacerbation: Plan: present on admission resolved stable in RA wheezing/cough is at her baseline cont usual home inhalers (7) GERD (gastroesophageal reflux disease): Plan: cont PPI twice daily (8) Prediabetes: Plan: a1c 7.3% in 2021 a1c this admission 5.9% - may not be reliable due to anemia but either way glucoses are stable (9) History of septic arthritis: Plan: right hip s/p removal of all hardware at [facility] in spring 2022 cont pain meds prn she has been on 10mg doses of oxycodone for years likely tolerance incomplete pain relief would really benefit from long-acting pain meds - defer to PCP who manages pain per pharmacy the diflucan interacts with all narcotics causing potentiation of narcotics thus, to be safe, changed oxy to norco 10's then revert back to oxy after diflucan course is complete pain much better today; no c/o pain today (10) Adrenal insufficiency: Plan: follows with [facility] typically on hydrocortisone BID + florinef IV hydrocortisone was used for stress-dose purposes this week for EGD and ERCP wean hydrocortisone to 20mg BID today then 10mg BID tomorrow then resume usual dosing on Sunday (10mg am, 5mg pm) cont florinef (11) History of pulmonary embolism: Plan: noted typically on Eliquis BID hold 3 days post-ERCP per GI recs (resume 07/30/23) SCDs of legs in meantime (12) History of brain surgery: (13) Chronic heart failure with preserved ejection fraction: Plan: compensated cont metoprolol succinate 50mg daily LE edema likely from recent volume expansion w/ fluids, increased steroids, PRBCs, etc edema has improved quickly - copious UOP last 24 hours usual dose of lasix 40mg BID but will hold her evening dose today (14) Paroxysmal atrial fibrillation: Plan: remains in NSR cont metoprolol resume Eliquis in 3 days post-ERCP (resume 07/30/23) (15) Hypokalemia: Plan: replaced resolved cont K supplementation daily due to lasix use Plan tobacco dependence - nicoderm patch PT/OT evals this admission show she can likely return home with at d/c should be ready for d/c home on Sunday am will update tonight by phone Admission and Anticipated Discharge Date Admission Date: July 20, 2023 Subjective no events overnight tolerating full liquids she is excited to try solids NO abd pain NO nausea/emesis cough/wheezing are at baseline no new complaints she mentions her has asthma and developed illness this am Review of Systems Review of Systems: cv - no chest pain; edema of legs better; no orthopnea pulm - congestion/cough/wheeze - baseline Gi - no melena stools; no pain - using purewick musculo - no R hip pain today Physical Exam Physical Exam: gen - looks very good today; NAD; smiling; some cough at times mouth - MMM, no thrush neck - no JVD heart - RRR, s1 s2, no murmur lungs - mild b/l wheezes; airation fair; no rales; no increased work of breathing abd - soft, ND, BS+, NT, no HSM ext - no edema right leg; edema of Left foot only; Left leg without edema; SCDs in place musculo - right leg is several inches shorter than left leg (baseline) skin - scattered ecchymoses on all limbs - unchanged psych - a/o x 3 Results & Data Results & Data Vital Signs (Past 12 Hours) Vital Signs Temp Pulse Pulse Resp BP Pulse Ox O2 Del Method 07/29/23 11:55 37.4 C 62 16 95/53 L 96 Room Air 07/29/23 08:15 37.0 C 62 16 120/80 96 Room Air 07/29/23 07:26 Room Air 07/29/23 06:24 57 L 07/29/23 03:41 37 C 78 18 133/84 95 Room Air Laboratory Results Laboratory Results - last 24 hr 07/29/23 05:55 WBC 10.19 RBC 3.72 L Hgb 10.1 L Hct 32.4 L MCV 87.1 MCH 27.2 MCHC 31.2 L RDW Std Deviation 52.7 H RDW Coeff of Crow 17.2 H Plt Count 193 MPV 10.9 Absolute Nucleated RBC 0.03 Nucleated RBC % (auto) 0.3 PG Care Time/CCT Total # of Minutes Spent Total Time Spent with Patient: Total time spent is greater than 50% in coordination of care (as documented) at patient's floor/unit and/or counseling patient: Coding Level of Care Code 23580 SUB INP/OBS CARE 235MIN Diagnoses Choledocholithiasis K80.50 Iron deficiency anemia D50.9 Gastritis K29.70 Gastric ulcer K25.9 Elevated troponin R79.89 COPD exacerbation J44.1 GERD (gastroesophageal reflux disease) K21.9 Prediabetes R73.03 History of septic arthritis Z87.39 Adrenal insufficiency E27.40 History of pulmonary embolism Z86.711 History of brain surgery Z98.890 Chronic heart failure with preserved ejection fraction I50.32 Paroxysmal atrial fibrillation I48.0 Hypokalemia E87.6
[2023-07-29] MEDS: HYDROcodone/ACETAMINOPHEN 10/325 TAB PO PRN (18:03)
[2023-07-30] MEDS: HYDROcodone/ACETAMINOPHEN 10/325 TAB PO PRN ×4 (02:41→22:03)
[2023-07-30 06:36] LABS: Hematocrit (blood only) 33.6 % (37.0-47.0); Hemoglobin 10.2 g/dl (12.0-16.0)
[2023-07-30 06:59] LABS: BUN Creatinine Ratio 20.4 (10-20); Creatinine Clr Calc Pharmacy 56.9 ml/min; Est GFR (African American) 72.7 ml/min; Est GFR (Non-African American) 62.7 ml/min; Potassium 2.5 mmol/L (3.5-5.1)
[2023-07-30 07:29] LABS: Magnesium 1.7 mg/dl (1.7-2.4)
[2023-07-30] MEDS ORDERED: POTASSIUM CHLORIDE CRTAB 20 MEQ TABCR PO STA (07:40)
[2023-07-30] MEDS: POTASSIUM CHLORIDE CRTAB 20 MEQ TABCR PO SCH (09:05)
[2023-07-30] MEDS: PANTOprazole 40 MG TAB PO SCH ×2 (09:08→22:03)
[2023-07-30] MEDS: METOPROLOL SUCC 50MG EXT REL TAB PO SCH (09:08)
[2023-07-30] MEDS: FLUCONAZOLE 100 MG TAB PO SCH (09:09)
[2023-07-30] MEDS: FLUDROCORTISONE ACETATE 0.1 MG TAB PO SCH (09:09)
[2023-07-30] MEDS: NICOTINE 21 MG/24 HR TDSY TD SCH (09:09)
[2023-07-30] MEDS: HYDROCORTISONE 10 MG TAB PO SCH ×2 (09:09→17:28)
[2023-07-30] MEDS: POLYETHYLENE (MIRALAX) 17 GM PACK PO SCH (09:10)
[2023-07-30] MEDS: UMECLIDINIUM/VILANTEROL 62.5/25MCG 7 PUFFS/INHALER INH SCH (09:10)
[2023-07-30] MEDS: FLUTICASONE FUROATE 200MCG 14 PUFFS/INHALER INH SCH (09:10)
[2023-07-30] MEDS: ATORVASTATIN 40 MG TAB PO SCH (09:10)
[2023-07-30] MEDS: FAMOTIDINE 20 MG TAB PO SCH ×2 (09:10→22:03)
[2023-07-30] MEDS: POTASSIUM CHLORIDE / WTR 10 MEQ/100 ML PLCT IV SCH ×2 (09:59→11:25)
[2023-07-30] MEDS ORDERED: guaiFENesin 600 MG TABCR PO ONE (17:43)
--- NOTE | 2023-07-30 17:43 | Hospitalist Progress Note ---
Date of Service July 30, 2023 Assessment & Plan (1) Choledocholithiasis: Plan: POD #3 - s/p ERCP by [facility] single stone removed from CBD no evidence of cholangitis no stent placed had pain post-ERCP - crampy, intermittent abd series x-rays - no free air; mild constipation only Lfts and lipase 10/14 wnl tolerating regular food resume Eliquis today (2) COPD exacerbation: Plan: present on admission had resolved and has been stable in RA today she c/o worsening COPD symptoms despite usual inhalers place on mucinex schedule duonebs qid checked cxr - no edema or infiltrates BNP is elevated, but is near her typical baseline BNP thus decompensated CHF not suspected (3) Iron deficiency anemia: Plan: ferritin 23 transferrin sat 8% s/p EGD 07/24/23 - mild-mod gastritis only but no PUD and no signs of recent bleeding cont PPI bid in ideal world would have colonoscopy in future to be complete and, if negative, capsule endoscopy s/p 1 unit PRBCs 07/25/23 for Hb 7.5 Hb stable since then s/p 3 doses of IV venofer while here tolerated each w/o incident (4) Gastritis: Plan: as seen on EGD appreciate Dr Bain's assistance cont PPI bx with fungal organisms seen - started fluconazole 200mg daily x 10-14 days day #4 today EKG 07/27 with normal QTc (5) Gastric ulcer: Plan: 03/2023 resolved - no PUD on EGD this admission (6) Elevated troponin: Plan: peak HS trop 19 very minimal elevation no obvious ischemic symptoms likely myocardial demand ischemia (7) GERD (gastroesophageal reflux disease): Plan: cont PPI twice daily (8) Prediabetes: Plan: a1c 7.3% in 2021 a1c this admission 5.9% - may not be reliable due to anemia but either way glucoses are stable (9) History of septic arthritis: Plan: right hip s/p removal of all hardware at [facility] in spring 2022 cont pain meds prn she has been on 10mg doses of oxycodone for years likely tolerance incomplete pain relief would really benefit from long-acting pain meds - defer to PCP who manages pain per pharmacy the diflucan interacts with all narcotics causing potentiation of narcotics thus, to be safe, changed oxy to norco 10's then revert back to oxy after diflucan course is complete pain much better today; no c/o pain today (10) Adrenal insufficiency: Plan: follows with [facility] typically on hydrocortisone BID + florinef IV hydrocortisone was used for stress-dose purposes this week for EGD and ERCP cont hydrocortisone 20mg BID then 10mg BID tomorrow then resume usual dosing on Sunday (10mg am, 5mg pm) cont florinef (11) History of pulmonary embolism: Plan: noted held 3 days post-ERCP per GI recs thus, resume Eliquis this evening (12) History of brain surgery: (13) Chronic heart failure with preserved ejection fraction: Plan: compensated cont metoprolol succinate 50mg daily hold lasix today due to severe hypokalemia (14) Paroxysmal atrial fibrillation: Plan: remains in NSR cont metoprolol resume Eliquis today (15) Hypokalemia: Plan: had been replaced and normalized however, very low today - likely from lasix and recent decreased PO intake give K-riders x 2 (total 20meq) give K by mouth repeat level later today was wnl at discharge would increase her K supplementation from once daily dosing to BID dosing Plan tobacco dependence - nicoderm patch PT/OT evals this admission show she can return home with at d/c PT worked with patient today while was present plan is for d/c home tomorrow social work is aware Admission and Anticipated Discharge Date Admission Date: July 20, 2023 Subjective stable overnight she is tolerating regular food without abd pain/nausea/emesis right hip pain controlled she c/o cough/congestion she reports that she takes mucinex fairly regularly at home she also uses albuterol neb treatment about 2-3x's each day no dyspnea however anxious to go home plan is for home tomorrow Review of Systems Review of Systems: gen - no fevers or chills cv - no chest pain, no orthopnea pulm - coughing GI - no diarrhea Physical Exam Physical Exam: gen - looks good, but coughing more than previous mouth - MMM neck - no JVD heart - RRR, s1 s2, no murmur lungs - coughing; airation similar to prior exams; occasional wheeze; course BS with rales (which cleared with coughing) abd - soft, ND, BS+, NT, no HSM ext - no edema right leg; edema of Left foot and marquez <1+ musculo - right leg is several inches shorter than left leg (baseline) skin - scattered ecchymoses on all limbs - unchanged psych - a/o x 3 Results & Data Results & Data Vital Signs (Past 12 Hours) Vital Signs Temp Pulse Pulse Resp BP Pulse Ox O2 Del Method 07/30/23 15:45 37.1 C 67 16 97/68 L 93 Room Air 07/30/23 16:01 65 07/30/23 12:35 37.3 C 66 16 130/77 94 Room Air 07/30/23 05:53 64 07/30/23 09:00 36.9 C 68 16 134/70 94 Room Air Laboratory Results Laboratory Results 07/30/23 07/30/23 07/30/23 05:58 05:58 07:52 Hgb 10.2 L Hct 33.6 L Sodium 142 Potassium 2.5 L* 2.6 L Chloride 105 Carbon Dioxide 35 H Anion Gap 2 L BUN 19 Creatinine 0.93 Est Cr Clr Drug Dosing 56.9 Est GFR ( Amer) 72.7 Est GFR (Non-Af Amer) 62.7 BUN/Creatinine Ratio 20.4 H Glucose 93 Calcium 7.0 L Magnesium 1.7 B-Natriuretic Peptide 07/30/23 07/30/23 19:18 19:18 Hgb Hct Sodium Potassium 4.3 D Chloride Carbon Dioxide Anion Gap BUN Creatinine Est Cr Clr Drug Dosing Est GFR ( Amer) Est GFR (Non-Af Amer) BUN/Creatinine Ratio Glucose Calcium Magnesium B-Natriuretic Peptide 847 H Diagnostic Findings Chest X-Ray 07/30/23 17:41 XR chest 1V portable HISTORY: 68 years-old Female left sided rales, ?pneumonia, ?CHF acute shortness of breath COMPARISON: 07/27/2023 TECHNIQUE: AP view of the chest FINDINGS: Cardiomediastinal and hilar silhouettes are within normal limits. No pneumothorax, pleural effusion or airspace consolidation. Bones appear grossly intact. Cholecystectomy. IMPRESSION: No acute process. ACT 112: Negative or not required by law. The above report was generated using voice recognition software. It may contain grammatical, syntax or spelling errors. Electronically signed by: Mani Zapata M.D. 07/30/2023 7:07 PM PG Care Time/CCT Total # of Minutes Spent Total Time Spent with Patient: Total time spent is greater than 50% in coordination of care (as documented) at patient's floor/unit and/or counseling patient: Coding Level of Care Code 09529 SUB INP/OBS CARE 350MIN Diagnoses Choledocholithiasis K80.50 COPD exacerbation J44.1 Iron deficiency anemia D50.9 Gastritis K29.70 Gastric ulcer K25.9 Elevated troponin R79.89 GERD (gastroesophageal reflux disease) K21.9 Prediabetes R73.03 History of septic arthritis Z87.39 Adrenal insufficiency E27.40 History of pulmonary embolism Z86.711 History of brain surgery Z98.890 Chronic heart failure with preserved ejection fraction I50.32 Paroxysmal atrial fibrillation I48.0 Hypokalemia E87.6
--- NOTE | 2023-07-30 19:09 | XRay Report ---
XR chest 1V portable HISTORY: 68 years-old Female left sided rales, ?pneumonia, ?CHF acute shortness of breath COMPARISON: 07/27/2023 TECHNIQUE: AP view of the chest FINDINGS: Cardiomediastinal and hilar silhouettes are within normal limits. No pneumothorax, pleural effusion o r airspace consolidation. Bones appear grossly intact. Cholecystectomy. IMPRESSION: No acute process. ACT 112: Negative or not required by law. The above report was generated using voice recognition software. It may contain grammatical, syntax o r spelling errors. Electronically signed by: Mani Zapata M.D. 07/30/2023 7:07 PM
[2023-07-30] MEDS: ALBUT/IPRATROP 3MG/0.5MG NEB 3 ML VIAL NEB SCH ×2 (20:14)
[2023-07-30] MEDS: APIXABAN 5 MG TABLET PO SCH (22:03)
[2023-07-31] MEDS: ALBUT/IPRATROP 3MG/0.5MG NEB 3 ML VIAL NEB SCH ×2 (07:26→11:16)
[2023-07-31] MEDS: NICOTINE 21 MG/24 HR TDSY TD SCH (08:55)
[2023-07-31] MEDS: FAMOTIDINE 20 MG TAB PO SCH (08:56)
[2023-07-31] MEDS: FLUDROCORTISONE ACETATE 0.1 MG TAB PO SCH (08:56)
[2023-07-31] MEDS: PANTOprazole 40 MG TAB PO SCH (08:56)
[2023-07-31] MEDS: METOPROLOL SUCC 50MG EXT REL TAB PO SCH (08:57)
[2023-07-31] MEDS: FLUCONAZOLE 100 MG TAB PO SCH (08:57)
[2023-07-31] MEDS: ATORVASTATIN 40 MG TAB PO SCH (08:57)
[2023-07-31] MEDS: APIXABAN 5 MG TABLET PO SCH (08:57)
[2023-07-31] MEDS: HYDROCORTISONE 10 MG TAB PO SCH (08:58)
[2023-07-31] MEDS: FLUTICASONE FUROATE 200MCG 14 PUFFS/INHALER INH SCH (08:59)
[2023-07-31] MEDS: UMECLIDINIUM/VILANTEROL 62.5/25MCG 7 PUFFS/INHALER INH SCH (08:59)
[2023-07-31] MEDS: POLYETHYLENE (MIRALAX) 17 GM PACK PO SCH (09:03)
[2023-07-31] MEDS: POTASSIUM CHLORIDE CRTAB 20 MEQ TABCR PO SCH (09:03)
[2023-07-31] MEDS: HYDROcodone/ACETAMINOPHEN 10/325 TAB PO PRN (10:29)
--- NOTE | 2023-07-31 13:29 | Discharge Summary ---
Date of Service July 31, 2023 Admission HPI Per Admitting Provider Chief Complaint: shortness of breath Primary Care Provider: Edwin Valdez MD Radha Tello is a 68yo female presenting with progressive shortness of breath for the last week as well as cough and wheeze. Patient had severe shortness of breath tonight which prompted her to come to the ER. She denies fever, chills, sweats, purulent sputum, edema, orthopnea. Denies abdominal pain, nausea, vomiting, diarrhea. She reports some improvement with her home breathing treatments and nebulizers. In the ER she is afebrile, HD stable, NAD Admission Exam Per Admitting Provider General: patient resting comfortably, NAD, non-toxic in appearance, AA&O x 4 Skin: warm, dry, intact, no rashes or lesions HEENT: NC/AT, PERRL, EOMI, anicteric sclera, conjunctiva without injection, external ear normal to inspection and nontender, nares patent, moist mucus membranes, dentition intact, no oropharyngeal lesions, neck supple, trachea midline, no LAD, no thyromegaly, no JVD Heart: +S1/S2, regular, no m/r/g Lungs: equal air entry bilaterally, no rales/rhonchi, +end expiratory wheezing greater in right lung Abd: +BS, soft, NT/ND, no masses/organomegaly/ascites Ext: warm, 2+ pulses in UE/LE bilaterally, no clubbing/cyanosis or edema Neuro: nonfocal, patient AA&O x 4, speech intact, no facial droop, moving all extremities on command with equal strength 5/5 Principal Diagnosis 1. Choledocholithiasis status post removal of CBD stone by ERCP 2. Acute COPD exacerbation 3. Hypokalemia Discharge Exam patient left before she was seen by [facility] Discharge Data Allergies Allergy/AdvReac Type Severity Reaction Status Date / Time No Known Allergies Allergy Verified 07/24/23 13:30 Consultations 07/19/23 05:12 ED Decision to Admit Stat 07/23/23 07:50 Consult Gastroenterology Routine Procedures Performed Operation Date: 07/27/23 10:50 Actual Procedures p Endoscopic Retrograde Cholangiopancreato - Maame Serrano MD Ordered Studies 07/22/23 16:59 CT abd pelvis wo con Routine CT chest without contrast [CT chest diagnostic wo con] Urgent 07/24/23 15:45 MR MRCP Urgent 07/27/23 [place] ERCP biliary ductal Routine Hospital Course (1) Choledocholithiasis: POD #3 - s/p ERCP by [facility] single stone removed from CBD no evidence of cholangitis no stent placed had pain post-ERCP - crampy, intermittent abd series x-rays - no free air; mild constipation only Lfts and lipase 07/28 wnl tolerating regular food resumed Eliquis Patient will need outpatient GI and general surgery follow-up. (2) COPD exacerbation: present on admission had resolved and has been stable in RA (3) Iron deficiency anemia: ferritin 23 transferrin sat 8% s/p EGD 07/24/23 - mild-mod gastritis only but no PUD and no signs of recent bleeding cont PPI bid in ideal world would have colonoscopy in future to be complete and, if negative, capsule endoscopy s/p 1 unit PRBCs 07/25/23 for Hb 7.5 Hb stable since then s/p 3 doses of IV venofer while here tolerated each w/o incident (4) Gastritis: as seen on EGD appreciate Dr Bain's assistance cont PPI bx with fungal organisms seen - started fluconazole 200mg daily x 10-14 days EKG 07/27 with normal QTc (5) Gastric ulcer: 03/2023 resolved - no PUD on EGD this admission (6) Elevated troponin: peak HS trop 19 very minimal elevation no obvious ischemic symptoms likely myocardial demand ischemia (7) GERD (gastroesophageal reflux disease): cont PPI twice daily (8) Prediabetes: a1c 7.3% in 2021 a1c this admission 5.9% - may not be reliable due to anemia but either way glucoses are stable (9) History of septic arthritis: right hip s/p removal of all hardware at [facility] in spring 2022 cont pain meds prn she has been on 10mg doses of oxycodone for years likely tolerance incomplete pain relief would really benefit from long-acting pain meds - defer to PCP who manages pain per pharmacy the diflucan interacts with all narcotics causing potentiation of narcotics thus, to be safe, changed oxy to norco 10's then revert back to oxy after diflucan course is complete pain much better today; no c/o pain today (10) Adrenal insufficiency: follows with [facility] typically on hydrocortisone BID + florinef IV hydrocortisone was used for stress-dose purposes this week for EGD and ERCP Continue hydrocortisone usual dosing (10mg am, 5mg pm) cont florinef (11) History of pulmonary embolism: noted held 3 days post-ERCP per GI recs thus, resume Eliquis this evening (12) History of brain surgery: (13) Chronic heart failure with preserved ejection fraction: compensated cont metoprolol succinate 50mg daily resume Lasix. Increase potassium supplements (14) Paroxysmal atrial fibrillation: remains in NSR cont metoprolol resume Eliquis (15) Hypokalemia: had been replaced and normalized at discharge would increase her K supplementation from once daily dosing to BID dosing Plan tobacco dependence - nicoderm patch PT/OT evals this admission show she can return home with at d/c plan is for d/c home I was informed that the patient was leaving at 1 PM today. However transportation was arranged for earlier and I was not informed. When I went to the room at 1 PM, it was empty and the patient had gone. I never got to see the patient Total Time Total Time Spent Total Time Spent (In Minutes): 35 Discharge Plan Discharge Items Patient Disposition: Home - Home Health Services Reason For Visit: SHORTNESS OF BREATH Discharge Diagnosis: SOB Condition on Discharge: Fair Activity: As commented below Activity Comment: as per PT/OT recommendations Non-emergency contact: Primary Care Provider Call non-emergency contact if: you have any medication questions Follow-up/Referrals: Edwin Valdez MD [Primary Care Provider] - 07/23/23 3:00 pm (Your appointment is with Shruti Wu) Diet: Heart Healthy Addtl Attending Provider Instructions: Recommend followup with PCP in 1week Recommend follow-up with GI in 2 weeks Pending Studies at Discharge: No Stand-Alone Forms: My [facility] Medications and DC Order Prescriptions: New azithromycin 500 mg tablet 500 mg PO DAILY Qty: 1 0RF Rx Instructions: one last dose tomorrow at 1pm. fluconazole [Diflucan] 100 mg Tablet 200 mg PO QAM 10 Days Qty: 20 0RF furosemide 40 mg Tablet 40 mg PO BID17 30 Days Qty: 30 0RF Continued acetaminophen 325 mg tablet 650 mg PO Q6H PRN (Reason: pain) Qty: 30 0RF (DME) incontinence pad, liner, disp Pad See Rx Instructions .Route Qty: 156 6RF Rx Instructions: Blue cora pads for stress incontinence, use up to 5 daily hydrocortisone 10 mg tablet See Rx Instructions .ROUTE .COMPLEX Qty: 45 0RF Rx Instructions: 10 mg in the morning, 5mg 8 hours later famotidine 20 mg tablet 20 mg PO BID Qty: 90 3RF pantoprazole 40 mg tablet,delayed release (DR/EC) 40 mg PO BID Qty: 90 3RF albuterol sulfate [ProAir HFA] 90 mcg/actuation HFA aerosol inhaler 2 inh INHALATION Q4H PRN (Reason: shortness of breath or wheezing) Qty: 18 5RF hydrocortisone 20 mg tablet 40 mg PO BID PRN (Reason: see specific directions) Qty: 90 2RF Rx Instructions: During times of stress only, take 40mg in the morning and then 20mg 8 hours later. ondansetron 4 mg tablet,disintegrating 4 mg PO Q6H PRN (Reason: NAUSEA/VOMITING) Qty: 20 1RF oxycodone 10 mg tablet 10 mg PO Q6H PRN (Reason: pain) Qty: 139 0RF Rx Instructions: Dr. Valdez DEVON# [id number], Lic# [id number] atorvastatin 40 mg tablet 40 mg PO QAM Qty: 90 3RF apixaban 5 mg tablet 5 mg PO BID Qty: 60 5RF Jardiance 10 mg tablet 10 mg PO QAM Qty: 90 3RF Entresto 24-26 mg tablet 1 tab PO BID Qty: 180 3RF albuterol sulfate 2.5 mg /3 mL (0.083 %) solution for nebulization 2.5 mg inhalation QID PRN (Reason: shortness of breath or wheezing) Qty: 180 3RF Trelegy Ellipta 200-62.5-25 mcg blister with device 1 inh inhalation DAILY Qty: 60 3RF prednisone 20 mg tablet 20 mg PO BID 5 Days Qty: 10 0RF Rx Instructions: Patient stated she thinks she was told by her doctor that she can take this as needed but she wasn't for sure. Narcan 4 mg/actuation spray,non-aerosol 4 mg intranasal DIRECTED PRN (Reason: OVERSEDATION) Rx Instructions: spray 1 dose into ONE nostril; alternate nostrils w each dose until help arrives furosemide 40 mg tablet 40 mg PO BID Qty: 60 5RF metoprolol succinate 100 mg tablet extended release 24 hr 100 mg PO QAM fludrocortisone 0.1 mg tablet 0.1 mg PO QAM Medical Thc 1 dose inhalation DAILY Changed potassium chloride 20 mEq tablet extended release 20 meq PO BID 30 Days Qty: 60 0RF Discharge Orders: Discharge Order (Routine); Ordered 07/31/23 Ordered By: Arpan Rivera Admission Data Admit Date/Time: 07/20/23 17:28 Attending Provider: Arpan Rivera Admit Provider: Aleta Duran Primary Care Provider: Edwin Valdez Other Providers: Aleta Duran ; Kayode Galvan ; Loy Bain ; Kindra Bowie ; Blessing Escoto ; Jacinta Izaguirre ; Erica Stone ; Kamron Quach ; Leland Damon ; Jose L Harris ; Jennifer Kinsey ; Ty Beard ; Gemini Celeste ; Shannan Koch ; Alexia Kelly ; Lindsey Kim ; Maame Serrano ; Alexey Gonsales ; Yordy Noel ; Shabana Dahl ; Meg Hernandez Jr ; [facility] Other Interventions: Discharge Summary Assessment (RN) Last Done: 07/31/23 11:24 Coding Level of Care Code 20953 INP/OBS DISCH >30 MIN Diagnoses Choledocholithiasis K80.50 COPD exacerbation J44.1 Iron deficiency anemia D50.9 Gastritis K29.70 Gastric ulcer K25.9 Elevated troponin R79.89 GERD (gastroesophageal reflux disease) K21.9 Prediabetes R73.03 History of septic arthritis Z87.39 Adrenal insufficiency E27.40 History of pulmonary embolism Z86.711 History of brain surgery Z98.890 Chronic heart failure with preserved ejection fraction I50.32 Paroxysmal atrial fibrillation I48.0 Hypokalemia E87.6
== END 2023-07-31 12:21 | disposition home health service (06) | DRG 445 ==
LOC: EDINP 03:01 → ED 03:01 → SUATTDRO 06:04 → 3W 16:20 → SUATTDRO 07-20 17:28 → 2W 07-20 19:42

== ENCOUNTER 2023-09-02 13:17 | Inpatient (IN) ==
--- OUTSIDE RECORDS SUMMARY | 2023-09-02 13:23 | External Medical Summary | Summary of Care ---
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 0 Active Apixaban 5 MG Oral Tablet Take 1 Tablet (5 mg) by mouth in the morning and 1 Tablet (5 mg) before bedtime. 0 Active Pantoprazole Sodium 40 MG Oral Tablet Delayed Release (Protonix) Take 1 Tablet by mouth in the morning and 1 Tablet before bedtime. 0 Active Naloxone HCl 4 MG/0.1ML Nasal Liquid (Narcan Nasal) Administer 0.1 mL into nostril as needed. Administer 1 spray into 1 nostril for suspected opioid overdose. Seek immediate medical attention. [email or web address] Active Combivent Respimat 20-100 MCG/ACT Inhalation Aerosol Solution Inhale 1 Puff by mouth in the morning and 1 Puff at noon and 1 Puff in the evening and 1 Puff before bedtime. 0 02/08/2022 Active Advair Diskus 250-50 MCG/DOSE Inhalation Aerosol Powder Breath Activated Inhale 1 Puff by mouth in the morning and 1 Puff before bedtime. 0 02/08/2022 Active Entresto 24-26 MG Oral Tablet (sacubitril-valsar fernández 24-26 mg per tab) Take 1 Tablet by mouth in the morning and 1 Tablet before bedtime. 0 Active Hydrocortisone 10 MG Oral Tablet (Cortef) Take 1 Tablet by mouth in the morning. And take a half tablet (5 mg) 8 hours later.. 0 Active Jardiance 10 MG Oral Tablet Take 1 Tablet by mouth in the morning. 0 09/05/2022 Active Metoprolol Succinate ER 25 MG Oral Tablet Extended Release 24 Hour (toPROL XL) Take 2 Tablets by mouth in the morning. 0 09/11/2022 Active Ipratropium-Albute rol 0.5-2.5 (3) MG/3ML Inhalation Solution Inhale 3 mL by mouth every 6 hours as needed for Shortness of Breath or Wheezing. 0 Active Famotidine 20 MG Oral Tablet (Pepcid) Take 1 Tablet by mouth in the morning and 1 Tablet before bedtime. 0 Active Fludrocortisone Acetate 0.1 MG Oral Tablet (Florinef) Take 1 Tablet by mouth in the morning. 0 Active Acetaminophen 325 MG Oral Tablet (Tylenol) Take 2 Tablets by mouth every 6 hours as needed for Fever >38C(100.5F) or Pain, Moderate. 0 Active Atorvastatin Calcium 40 MG Oral Tablet (Lipitor) Take 1 Tablet by mouth at bedtime. 0 Active Aspirin 81 MG Oral Tablet Delayed Release Take 1 Tablet (81 mg) by mouth in the morning. 0 Active oxyCODONE HCl 10 MG Oral Tablet (Roxicodone) Take 1 Tablet by mouth every 6 hours as needed for Pain, Severe. 20 Tablet 0 10/02/2022 Active Docusate Sodium 100 MG Oral Capsule (Colace) Take 1 Capsule by mouth in the morning and 1 Capsule before bedtime. 10 Capsule 0 10/02/2022 Active Additional Information Patient not taking.Reported on 11/21/2022 Apixaban 5 MG Oral Tablet (Eliquis) Take 1 Tablet by mouth in the morning and 1 Tablet before bedtime. 60 Tablet 0 10/02/2022 Active Furosemide 40 MG Oral Tablet (Lasix) 0 11/16/2022 Active Potassium Chloride 20 MEQ Oral Packet daily. 0 11/20/2022 Active buPROPion HCl ER (SR) 150 MG Oral Tablet Extended Release 12 Hour (Wellbutrin SR) 0 11/20/2022 Active documented as of this encounter (statuses as of 07/27/2023) Active Problems Problem Noted Date Adrenal insufficiency 09/27/2022 History of pulmonary embolism 09/27/2022 Paroxysmal atrial fibrillation Enterococcus faecalis infection 09/23/20 22 Intractable pain 09/19/2022 Gait instability 09/19/2022 Severe protein-calorie malnutrition 04/15 Diverticulitis of sigmoid colon 05/06/20 21 Toxic metabolic encephalopathy BEV (acute kidney injury) 05/02/2021 FTT (failure to thrive) in adult 021 Lactic acidosis 05/02/2021 Hypercalcemia 05/02/2021 Iron deficiency anemia due to chronic bl ood loss 04/16/2021 COPD (chronic obstructive pulmonary dise ase) 04/15/2021 Gastroesophageal reflux disease without esophagitis 04/15/2021 Acute blood loss anemia 03/27/2021 Tobacco user 03/25/2021 Stenosis of carotid artery 03/25/2021 S/P carotid endarterectomy 03/25/2021 Septic shock 03/24/2021 Infection of right prosthetic hip joint 03/23/2021 History of total hip replacement, right 03/23/2021 Cerebral aneurysm, nonruptured 5 Acute cystitis without hematuria documented as of this encounter (statuses as of 07/27/2023) Immunizations Name Administration Dates Next Due Seasonal Influenza, Quadrivalent Hd (Fluzone Hd) 09/20/2022,06/30/2021 Seasonal Influenza, Quadrivalent, No Preserve, I M 07/23/2020 documented as of this encounter Social History Tobacco Use Types Packs/Day Years Used Date Smoking Tobacco: Every Day Cigarettes 0.3 55 Last attempted to quit: 03/15/2021 Smokeless Tobacco: Never Comments:started smoking aga in June 2021- 4 or 5 a day roughly as of 09/20/2022 Alcohol Use Standard Drinks/Week Comments No 0 (1 standard drink = 0.6 oz pur e alcohol) Sex Assigned at Date Recorded Not on file Job Start Date Occupation Industry Not on file Not on file Not on file documented as of this encounter Functional Status Functional Status Response Date of Assess ment Are you deaf or do you have serious difficulty h earing? No 09/20/2022 Are you blind or do you have serious difficulty seeing, even when wearing glasses? No 09/20/2022 Do you have serious difficul ty walking or climbing stairs? (5 years old or older) Yes 09/20/2022 Do you have difficulty dress ing or bathing? (5 years old or older) No 09/20/2022 Because of a physical, menta l, or emotional condition, do you have difficulty doing errands alone such as visiting a doctor s office or shopping? (15 years old or older) Yes 09/20/20 Cognitive Status Response Date of Assessm ent Because of a physical, menta l, or emotional condition, do you have serious difficulty concentrating, remembering, or making decisions? (5 years old or older No 09/20/2022 documented as of this encounter Plan of Treatment Health Maintenance Due Date Last Done Comments DISCUSS TOBACCO CESSATION (REFER TO SMARTSET #3293) 1954 DXA Scan 1954 COVID-19 Vaccine (#1) 1954 Pneumococcal Vaccine: 65+ Years (1 - PCV) 1960 Depression Screening 1966 Alpha-1 Antitrypsin 1972 DTaP,Tdap,and Td Vaccines (1 - Tdap) 1973 Mammogram 1994 Cologuard 1999 Colonoscopy 1999 Sigmoidoscopy 1999 Zoster Vaccines (1 of 2) 2004 *COPD SEVERITY VERIFIED BY PFT 04/21/2021 Colorectal Cancer Screening 11/30/2022 Fecal Occult Blood Test 11/30/2022 11/30/2021 Influenza Vaccine (FLU shot) (#1) 2023 09/20/2022, 06/30/2021, 07/23/2020, Additional history exists O2 ASSESSMENT COMPLETED IN PAST YEAR FOR COPD 09/26/2023 09/26/2022 Diabetes Screening 10/26/2025 10/26/2022, 1 12/03/2021, 10/01/2022, Additional history exists GARDASIL-HPV IMMUNIZATION SERIES Aged Out No longer eligible based on patient's age to complete this topic Hepatitis B Aged Out No longer eligi ble based on patient's age to complete this topic MENINGOCOCCAL (MENACTRA/MENVEO) Aged Out No longer eligible based on patient's age to complete this topic documented as of this encounter Medical Devices Not on filedocumented as of this encounter Procedures Procedure Name Priority Date/Time Associated Diagnosis Comments ERCP 07/27/2023 documented in this encounter Results * ERCP (07/27/2023) 07/27/2023 Maame Serrano MD GASTRO UPPER documented in this encounter Advance Directives Latest Code Status on File Code Status Date Activated Date Inactivated Comments Full Code 09/26/2022 10:24 PM 10/02/2022 2:50 PM Th is order reflects the patients wishes and were consensually agreed upon. Question Answer Comments Discussion of Advance Directives occurred with: Not Discussed due to patient's condition Code Status History Code Status Date Activated Date Inactivated Comments Full Code 09/21/2022 5:36 PM 09/26/2022 10:24 PM Thi s order reflects the patients wishes and were consensually agreed upon. Question Answer Comments Discussion of Advance Directives occurred with: Not Discussed due to patient's condition Full Code 09/19/2022 11:20 PM 09/21/2022 5:36 PM This order reflects the patients wishes and were consensually agreed upon. Question Answer Comments Discussion of Advance Directives occurred with: Patient Full Code 03/30/2022 3:17 PM 03/30/2022 8:30 PM This order reflects the patients wishes and were consensually agreed upon. Full Code 05/02/2021 4:36 PM 05/18/2021 9:00 PM This o rder reflects the patients wishes and were consensually agreed upon. Question Answer Comments Discussion of Advance Directives occurred with: Patient Care Teams Rolling Machine Operator Automatic Relationship Specialty Start Date End Date Edwin Valdez MD [address] [place] [address] [place] [id number] PCP - General Internal Medicine 12/29/14 documented as of this encounter
--- NOTE | 2023-09-02 14:32 | XRay Report ---
XR chest 1V portable CLINICAL HISTORY: Sepsis. COMPARISON STUDY: Chest CT July 22, 2023. Chest radiograph July 30, 2023. FINDINGS: Lung volumes are normal. Hazy right basilar opacity is new since prior chest radiograph. Th ere is no pneumothorax. There is a trace right pleural effusion. Cardiac size is normal. Mediastinal contours are normal. There is no evidence for pulmonary edema. IMPRESSION: 1. Hazy right basilar opacity. This may reflect pneumonia. Radiographic follow-up is recommended to e nsure resolution. 2. Trace right pleural effusion. ACT 112: Negative or not required by law. Electronically signed by: Marquez Coronel M.D. 09/02/2023 2:31 PM
[2023-09-02] MEDS ORDERED: SODIUM CHLORIDE 0.9% 500 ML IV ONE (14:34)
[2023-09-02] MEDS ORDERED: cefTRIAXone SODIUM 2,000 MG/50 ML BAG IV STA (14:34)
[2023-09-02 14:43] LABS: Albumin Level 2.2 gm/dl (3.4-5.0); BUN Creatinine Ratio 28.6 (10-20); Bilirubin Direct 0.2 mg/dl (0-0.2); Bilirubin,Total 0.6 mg/dl (0.2-1.0); Calcium 7.7 mg/dl (8.6-10.3); Creatinine Clr Calc Pharmacy 55.2 ml/min; Est GFR (African American) 82.2 ml/min; Est GFR (Non-African American) 70.9 ml/min; Magnesium 1.9 mg/dl (1.7-2.4); Potassium 4.5 mmol/L (3.5-5.1); Total Protein 4.2 gm/dl (6.0-8.3)
[2023-09-02] MEDS ORDERED: SODIUM CHLORIDE 0.9% 1,000 ML IV SCH (14:45)
[2023-09-02 14:48] LABS: Hemoglobin 10.1 g/dl (12.0-16.0); Mean Corpuscular Hgb Conc 28.9 g/dL (32.0-36.0); Mean Corpuscular Volume 100.6 fL (80.0-100.0); Mean Platelet Volume 11.2 fL (9.4-12.4); Nucleated RBC # (auto) 0.22 K/uL (0.00-0.12); Nucleated RBC % (auto) 1.7 %; Platelet Count 181 K/uL (130-400); RDW Coefficient of Variation 23.1 % (11.5-14.5); RDW Standard Deviation 83.8 fL (36.4-46.3); Red Blood Count 3.48 M/uL (4.20-5.40); White Blood Count 12.87 K/ul (4.8-10.8)
[2023-09-02] MEDS ORDERED: VANCOMYCIN CONSULT ACTIVE PRN (14:54)
[2023-09-02] MEDS ORDERED: VANCOMYCIN HCL 1,250 MG in SODIUM CHLORIDE 0.9% 500 ML IV ONE (14:54)
[2023-09-02 14:55] LABS: Troponin I High Sensitivity 59.6 pg/ml (0-14)
[2023-09-02 15:06] LABS: Acanthocytes 1+; Basophils # (auto) 0.04 K/uL (0.00-0.20); Basophils % (auto) 0.3 %; Eosinophils # (auto) 0.01 K/uL (0.00-0.50); Eosinophils % (auto) 0.1 %; Immature Granulocytes # (auto) 0.51 K/uL (0.01-0.20); Lymphocytes # (auto) 3.28 K/uL (1.20-3.40); Lymphocytes % (auto) 25.5 %; Monocytes # (auto) 0.53 K/uL (0.11-0.59); Monocytes % (auto) 4.1 %; Polychromasia 1+
--- NOTE | 2023-09-02 15:35 | Emergency Department Note ---
Impression & Plan Pneumonia, Volume overload, Acute UTI (urinary tract infection) ED Provider Note NAME: DEEPAK CORTEZ AGE: 68 SEX: Female INFORMANT: Patient ED PROVIDER(S): Houston Villatoro MD CHIEF COMPLAINT: Generalized pain PLAN: Disposition: Admitted Outpatient prescription management: none Referral: None MEDICAL DECISION MAKING: Patient presented complaining of generalized pain throughout her body. She had signs of volume overload and her initial blood pressure was low at 84 systolic. I did repeat her blood pressures personally and she was up to 115 systolic and then 134/58. She was not dizzy or lightheaded. Patient had initial mild tachycardia on ECG however her heart rate then dropped into the 90s. Blood work was performed. She was found to have a mild leukocytosis and mild anemia on CBC. Her lactate was minimally elevated. Troponin and BNP were also mildly elevated. Patient was given some gentle fluid hydration however aggressive hydration with deferred due to the elevated BNP, resolution of her hypotension, and her volume overload. Repeat lactate was performed and was normal. Patient was treated with broad-spectrum antibiotics to cover for possible infection as her chest x-ray does raise concerns about pneumonia. Urinalysis was also somewhat concerning. Patient's ECG did show RVH with repolarization. There was some mild anterior T wave inversions which appear to be new from July of this year. Patient was treated with Rocephin and vancomycin. Consultation was made with the [facility] hospitalist service, Dr. Donald. Case discussed and diagnostics were reviewed. Patient was evaluated in the ER and admitted for further management. Care/management discussed with: Discussed with blogs manager Level of care consideration(s): After review of the information above and other included data, I feel the patient requires escalation of care to admission Triage Nursing notes: reviewed and agree them. Vital Signs: reviewed and remarkable for hypotension initially. I did personally recheck her blood pressure and she had her systolic that improved to 115 and then 134/58. Repeat blood pressure measurements were missing from the EMR prior to admission and this was addressed with nursing. Additional History obtained from: Family Chronic Medical/Social Conditions affecting care: Anticoagulation, atrial fibrillation paroxysmal Prior/ Outside/ External records reviewed: none Differential Diagnosis: Infection, dehydration, metabolic abnormality, hypo/hyperglycemia, electrolyte disturbance, anemia, hypoxia, cardiac sources, intracerebral event, toxicologic, neurologic, as well as other pathologies. Diagnostics, independently interpreted by me: ECG: Twelve-lead ECG was sinus tachycardia 108 bpm. RVH with repolarization. Anterior T wave inversions. When compared to 07/27/2023 these are new Cardiac Monitoring: Cardiac monitoring ordered by me: The patient was placed on continuous cardiac monitoring and observed. It revealed sinus rhythm at 92 bpm. No evidence of dysrhythmia. Medical decision rules: none Imaging studies: Chest imaging concerning for right basilar infiltrate. HPI: The patient is a 68-year-old female who arrives for evaluation of generalized pain. Patient had EMS called because she had some difficulty breathing and generalized pain in her extremities. Patient is debilitated because of a right hip removal secondary to infection. She has been dealing with fluid in her arms and her legs have been bruising for several months. Patient had poor living situation per EMS. She had stool in her brief and has been dealing with sores on her buttocks. EMS noted no respiratory issues. Patient's blood pressure was mildly low. Patient feels very weak. She has a mild cough. Former smoker. Pt denies LOC, headache, fevers, chills, visual changes, neck pain, chest pain, nausea, vomiting, abdominal pain, back pain, melena, hematochezia, urinary symptoms, numbness, rash, or other complaints. PAST MEDICAL HISTORY: See Below, paroxysmal atrial fibrillation, COPD PAST SURGICAL HISTORY: See Below, SOCIAL HISTORY: See Below, quit smoking HOME MEDICATIONS: See Below ALLERGIES: See Below VITALS: See Below PHYSICAL EXAMINATION: GENERAL: Awake, alert, uncomfortable-appearing, in no distress HENT: Normocephalic, atraumatic. Oropharynx unremarkable. EYES: Normal conjunctiva. Sclera non-icteric. NECK: Inspection normal. Non-tender. Supple. No nuchal rigidity. FROM. No masses. RESPIRATORY: Clear to auscultation. No wheezes. No rales. Normal respiratory effort. CARDIAC: Borderline tachycardic rate. Normal rhythm. No murmurs. No rubs. Extremities warm and well perfused. Pulses equal. No JVD. GI: Soft, non-distended. No tenderness to palpation. No rebound or guarding. No masses. RECTAL: Deferred. MUSCULOSKELETAL: Upper extremities reveal moderate edema with large vesicles of the skin. Chest examination reveals no tenderness. There is no CVA tenderness to palpation. No joint edema. Gluteal decubitus present LOWER EXTREMITIES: Calves are equal size bilaterally and non-tender. 2+ edema. Scattered petechiae and cyanotic discoloration. NEURO: Normal sensorium. Generally weak. SKIN: No rash or jaundice noted. PROCEDURES: none CRITICAL CARE: none OBSERVATION NOTE: none Past Med/Surg History Medical History (Updated 09/02/23 @ 18:52 by Houston Villatoro MD) (HFpEF) heart failure with preserved ejection fraction Adrenal insufficiency follows with [facility] Endocrinology History of MTHFR mutation per medical records -- pt unaware History of COVID-19 tested positive 10/2022 at [facility] -- fatigue, weakness, lethargy, chills/fever Weight loss, unintentional for the last 2 years -> has lost about 70lbs. 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 uses wheelchair, able to stand and pivot Hypersomnolence Continuous tobacco abuse Chronic heart failure with preserved ejection fraction Paroxysmal atrial fibrillation hx -> follows with Dr. Sinclair Type 2 diabetes mellitus pt denies Cardiomyopathy Pulmonary hypertension hx -- pt unaware SOB (shortness of breath) RBBB Pulmonary emboli ~2020. pt unsure why she had the blood clot. treated with medication UTI (urinary tract infection) hx Hypomagnesemia Eosinophilic esophagitis C. difficile enteritis hx - no recent episodes VRE infection (vancomycin resistant Enterococcus) pt unaware -- per medical record dx 2021 at [facility] (urine) History of revision of total replacement of right hip joint 03/25/21 - [facility]; explantation old hardware, wound vac placement. History of septic shock 03/2021 - due to septic R hip; 04/2021 - again due to septic R hip - hospitalized [facility] each admission. Pseudomonas, proteus, oj albicans. Edema hx - doing well currently Acute renal failure Cerebral aneurysm Per records, pt unaware No significant aneurysm noted with head CTA and brain MRI from 01/2020 Osteoarthritis GERD (gastroesophageal reflux disease) Carotid stenosis, left S/P L CEA (02/18/20) (Prior to CEA patient had 80% LICA stenosis ) History of Meniere's disease CKD (chronic kidney disease) stage III CVA (cerebral vascular accident) CVA 02/11/20- no residual effects, follows with [place] [facility], patient was on plavix until ~1 month after left CEA surgery, now on ASA 81mg Depression with anxiety Hyperlipidemia Hypertension History of prediabetes HGBA1C 6.1% on 01/28/21 Asthma PT STATES TAKES RESCUE INHALER DAILY Surgical History (Updated 08/31/23 @ 00:10 by Shari Damare) History of hip surgery removal of the right hip joint replacement 01/2023 d/t chronic infection. History of incision and drainage right hip - multiple I/D's, 03/2021-04/2021; [facility]. Status post revision of total hip replacement (~01/2021) History of total hip arthroplasty RT> with repair H/O carotid endarterectomy Left CEA: 02/18/20: Grade view 1 with head lift, MAC#3, ETT 7.0 at [facility] S/P carotid endarterectomy History of bilateral tubal ligation History of esophagogastroduodenoscopy (EGD) History of colonoscopy History of appendectomy History of tooth extraction History of tonsillectomy History of cataract surgery R/L History of section x1 History of brain surgery ~2014 ([facility]) History of cholecystectomy History of Family History Mother Diabetes Family history of diabetes mellitus Sister Diabetes Family history of diabetes mellitus Arterial thrombosis Amputation of leg Father Heart disease Lung disease Other No family history of adverse response to anesthesia Denies family history of Ovarian cancer Prostate cancer Myocardial infarction Breast cancer Colorectal cancer Social History Smoking Status: Unknown if ever smoked Tobacco Type: Cigarettes Age Started Using Tobacco: 17; Age Quit Using Tobacco: 65; packs per day: 1; Cigarettes Per Day: 10 to 15 a day. Sometimes a pack a day. 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 How many Children do You have: 2 How many Children do You have Comment: 1 child from suicide Feels Safe at Home: Yes Childhood Exposure to Second-Hand Smoke: Yes Diet: regular Dental Care, Regularly: No Physical Activity Frequency: Does not Exercise Seatbelt Use: always Sunscreen Use: No Assistive Devices: Wheelchair Allergies Allergies Allergy/AdvReac Type Severity Reaction Status Date / Time No Known Allergies Allergy Verified 07/24/23 13:30 Home Meds Home Medications Medication Instructions Recorded Confirmed naloxone 4 mg/actuation nasal 4 mg intranasal DIRECTED PRN 06/13/21 07/19/23 spray (Narcan) OVERSEDATION Medical Thc 1 dose inhalation DAILY 03/28/23 07/19/23 metoprolol succinate 100 mg 100 mg PO QAM 03/28/23 09/02/23 tablet,extended release 24 hr Previous Rx's Medication Instructions Recorded acetaminophen 325 mg tablet 650 mg (2 x 325 mg) PO Q6H PRN 10/04/22 pain #30 tabs furosemide 40 mg tablet 40 mg PO BID #60 tabs 10/23/22 famotidine 20 mg tablet 20 mg PO BID #90 tabs 04/10/23 pantoprazole 40 mg tablet,delayed 40 mg PO BID #90 tabs 05/14/23 release albuterol sulfate 90 mcg/actuation 2 inh inhalation Q4H PRN shortness 05/22/23 aerosol inhaler (ProAir HFA) of breath or wheezing #18 grams albuterol sulfate 2.5 mg/3 mL 2.5 mg (3 mL) inhalation QID PRN 05/24/23 (0.083 %) solution for nebulization shortness of breath or wheezing #180 mL fluticasone fur. 200 mcg-umeclid 1 inh inhalation DAILY #60 ea 05/24/23 62.5 mcg-vilant 25 mcg inhalat.powder (Trelegy Ellipta) hydrocortisone 20 mg tablet 40 mg (2 x 20 mg) PO BID PRN see 06/07/23 specific directions #90 tabs ondansetron 4 mg disintegrating 4 mg PO Q6H PRN NAUSEA/VOMITING 07/06/23 tablet #20 tabs atorvastatin 40 mg tablet 40 mg PO QAM #90 tabs 07/12/23 apixaban 5 mg tablet 5 mg PO BID #60 tabs 07/16/23 empagliflozin 10 mg tablet 10 mg PO QAM #90 tabs 07/16/23 (Jardiance) sacubitril 24 mg-valsartan 26 mg 1 tab PO BID #180 tabs 07/27/23 tablet (Entresto) potassium chloride 20 mEq 20 meq PO BID 1 month #60 tabs 07/31/23 tablet,extended release incontinence pad, liner, disp #156 ea 08/13/23 oxycodone 10 mg tablet 10 mg PO Q6H PRN pain #139 tabs 08/13/23 Results & Data (ED) Vital Signs Vital Signs - 24 hr 09/02/23 13:06 Temperature 37.3 C Temperature Source Oral Pulse Rate 110 H Pulse Rhythm Irregular Respiratory Rate 23 Respiratory Effort / Characteristics Non-Labored Respiratory Depth Normal Blood Pressure 84/60 L Blood Pressure Mean 68 Pulse Oximetry 95 Oxygen Delivery Method Room Air Sepsis Recent Fever Within 48 Hours No Sepsis New/Unexplained Change in Mental Status No Sepsis Action Taken by Nursing MD Previously Notified Laboratory Data 09/02/23 13:51 09/02/23 13:51 Lab Results 09/02/23 Range/Units 13:51 WBC 12.87 H (4.8-10.8) K/ul RBC 3.48 L (4.20-5.40) M/uL Hgb 10.1 L (12.0-16.0) g/dl Hct 35.0 L (37.0-47.0) % MCV 100.6 H (80.0-100.0) fL MCH 29.0 (25.0-34.0) pg MCHC 28.9 L (32.0-36.0) g/dL RDW Std Deviation 83.8 H (36.4-46.3) fL RDW Coeff of Crow 23.1 H (11.5-14.5) % Plt Count 181 (130-400) K/uL MPV 11.2 (9.4-12.4) fL Immature Gran % (Auto) 4.0 % Neut % (Auto) 66.0 % Lymph % (Auto) 25.5 % Giles % (Auto) 4.1 % Eos % (Auto) 0.1 % Baso % (Auto) 0.3 % Neut # (Auto) 8.50 H (1.40-6.50) K/uL Lymph # (Auto) 3.28 (1.20-3.40) K/uL Giles # (Auto) 0.53 (0.11-0.59) K/uL Eos # (Auto) 0.01 (0.00-0.50) K/uL Baso # (Auto) 0.04 (0.00-0.20) K/uL Immature Gran # (Auto) 0.51 H (0.01-0.20) K/uL Absolute Nucleated RBC 0.22 H (0.00-0.12) K/uL Nucleated RBC % (auto) 1.7 % Polychromasia 1+ Acanthocytes (Spur) 1+ Sodium 144 (136-145) mmol/L Potassium 4.5 (3.5-5.1) mmol/L Chloride 111 H (98-107) mmol/L Carbon Dioxide 28 (21-32) mmol/L Anion Gap 5 (3-11) BUN 24 H (6-23) mg/dl Creatinine 0.84 (0.6-1.2) mg/dl Est Cr Clr Drug Dosing 55.2 ml/min Est GFR ( Amer) 82.2 ml/min Est GFR (Non-Af Amer) 70.9 ml/min BUN/Creatinine Ratio 28.6 H (10-20) Glucose 83 (70-99(Fasting)) mg/dl Lactate 3.0 H* (0.4-2.0) mmol/L Calcium 7.7 L (8.6-10.3) mg/dl Magnesium 1.9 (1.7-2.4) mg/dl Total Bilirubin 0.6 (0.2-1.0) mg/dl Direct Bilirubin 0.2 (0-0.2) mg/dl AST 18 (13-39) U/L ALT 15 (7-52) U/L Alkaline Phosphatase 63 (34-104) U/L Troponin I High Sens 59.6 H* (0-14) pg/ml B-Natriuretic Peptide 704 H (0-100) pg/ml Total Protein 4.2 L (6.0-8.3) gm/dl Albumin 2.2 L (3.4-5.0) gm/dl Procalcitonin 0.05 (0-0.5) ng/ml Administered Medications Albuterol (Albuterol 0.5% Neb Soln 2.5 Mg/0.5 Ml Vial) 2.5 mg NEB Q6R JOHANNA; Protocol Stop: 10/02/23 18:59 Last Admin: 09/02/23 18:45 Dose: 2.5 mg Documented By: HMR Discontinued Medications Hydrocortisone Sodium Succinate (Hydrocortisone Sod Succinate 100 Mg/2 Ml Vial) 100 mg IV NOW STA Stop: 09/02/23 16:46 Last Admin: 09/02/23 17:56 Dose: 100 mg Documented By: KEENAN Sodium Chloride (Nss) 500 mls @ 999 mls/hr IV .Q31M ONE Stop: 09/02/23 15:04 Last Admin: 09/02/23 14:46 Dose: 999 mls/hr Documented By: LORENZO Sodium Chloride (Nss) 1,000 mls @ 125 mls/hr IV .Q8H JOHANNA Stop: 10/02/23 14:44 Last Admin: 09/02/23 14:46 Dose: 125 mls/hr Documented By: LORENZO Ceftriaxone Sodium (Rocephin) 2,000 mg in 50 mls @ 100 mls/hr IV NOW STA Stop: 09/02/23 15:03 Last Admin: 09/02/23 14:51 Dose: 100 mls/hr Documented By: ARS Vancomycin HCl 1,250 mg/ (Sodium Chloride) 525 mls @ 200 mls/hr IV NOW ONE Stop: 09/02/23 17:31 Last Admin: 09/02/23 17:10 Dose: 200 mls/hr Documented By: YOLIS Ioversol (Optiray 320 500ml) 89 ml IV ONCE ONE Stop: 09/02/23 18:12 Last Admin: 09/02/23 18:12 Dose: 89 ml Documented By: EDWARD Oxycodone HCl (Oxycodone Hcl Ir 5 Mg Tab (Immediate Release)) 10 mg PO NOW STA Stop: 09/02/23 16:42 Last Admin: 09/02/23 17:56 Dose: 10 mg Documented By: KEENAN Imaging Data Radiologist's Impression: Chest X-Ray 09/02/23 14:12 XR chest 1V portable CLINICAL HISTORY: Sepsis. COMPARISON STUDY: Chest CT July 22, 2023. Chest radiograph July 30, 2023. FINDINGS: Lung volumes are normal. Hazy right basilar opacity is new since prior chest radiograph. There is no pneumothorax. There is a trace right pleural effusion. Cardiac size is normal. Mediastinal contours are normal. There is no evidence for pulmonary edema. IMPRESSION: 1. Hazy right basilar opacity. This may reflect pneumonia. Radiographic follow- up is recommended to ensure resolution. 2. Trace right pleural effusion. ACT 112: Negative or not required by law. Electronically signed by: Marquez Coronel M.D. 09/02/2023 2:31 PM Discharge Plan Visit Data Chief Complaint: Pain (Generalized) ED Provider: Houston Villatoro Discharge Problem: Pneumonia, Volume overload, Acute UTI (urinary tract infection) Discharge Instructions Interventions: ED Discharge Assessment Last Done: 09/02/23 17:31
[2023-09-02] MEDS ORDERED: oxyCODONE HCL IR 5 MG TAB (IMMEDIATE RELEASE) PO STA (16:41)
[2023-09-02] MEDS ORDERED: HYDROCORTISONE SOD SUCCINATE 100 MG/2 ML VIAL IV STA (16:45)
--- NOTE | 2023-09-02 16:54 | History & Physical Report ---
Date of Service September 02, 2023 Assessment & Plan (1) Comfort measures only status: Plan: -Admit to med/surge on comfort measures -Due to the patient's continued clinical decline and significant distress attempting to treat her acute illness she and her chose to transition her to comfort measures -Will discontinue all home medications except metoprolol, breathing treatments, pantoprazole/famotidine, -Will DC IV stress dosed steroids. -Will double the dose of her normal home steroids tonight and tomorrow then continue her normal dosing on 09/04 -Will DC all antibiotics -PRN PO morphine for pain/air hunger -PRN PO ativan and haldol for anxiety/agitation -PRN zofran for nausea/vomiting -PRN hyoscyamine for secretions -Regular diet -Palliative medicine consult placed Plan The patient was discussed with Dr. Donald at the time of the admission History of Present Illness Chief Complaint: Generalized pain, sacral wounds, systemic edema, failure thrive Primary Care Provider: Edwin Valdez MD Radha is a 68 year old female with a history significant for Choledocholithiasis S/P ERCP on 07/27 by [facility], cardiomyopathy, HFpEF (LVEF of 55-60% as of 10/08/22), multi focal atrial tachycardia vs atrial fibrillation (currently on Eliquis), COPD, adrenal insufficiency (on chronic steroid therapy), carotid artery stenosis s/p left CEA (03/09/20), CVA (02/11/20), hypertension, dyslipidemia, pulmonary embolus (provoked postop hip surgery 05/2021), and CKD who presented to the [facility] ED via EMS on 09/02 for respiratory distress. Per the ED, EMS did not find the patient to be in respiratory distress but was noted to be generally weak with poor hygiene, multiple gluteal wounds, significant third spacing, and hypotensive. In the ED she was noted to be hypotensive at 84/60 and tachycardic at 110 but otherwise stable. Labs were significant for a leukocytosis of 12 with neutrophil predominance of 8.5, stable Cr but BUN of 24, chloride of 111, initial lactate of 3.0, initial high sen trop of 59, BNP of 704 (down from 847 as of 07/30). Chest xray was read (1. Hazy right basilar opacity. This may reflect pneumonia. Radiographic follow-up is recommended to ensure resolution. 2. Trace right pleural effusion.. The patient was initially given 1500mL NSS, a dose of ceftriaxone, and a dose of Vancomycin. At the time of the exam the patient was lying in bed in no acute distress with her sitting bedside, history was obtained from both. Since her last admission in July the patient has had a progressive clinical decline. She has been bedbound and has been too weak to assist with transfer in and out of her wheelchair like her baseline. Since being bedbound the patient has developed sacral ulcers/wounds and significant swelling in the BL arms and legs. Her appetite has been poor. They confirm that she is still taking BID oral steroids for her adrenal insufficiency and have not missed a recent dose, she is also taking her BID Eliquis. She denies recent fever, chills, chest pain, abd pain, nausea, vomiting, diarrhea, dysuria, hematuria, melena, and recent trauma. When asked, she states that she started to develop a worsening cough than her baseline with green mucus production. We discussed code status, she states that she wishes to be a DNR/DNI and would want her to make medical decisions for her if she cannot make them herself. While her niece provides care at home it appears that she needs signifciantly more help with all of her chronic medical conditions. The patient was recently admitted to [facility] from 07/19-07/31 for choledocholithiasis, COPD exacerbation, and gastritis. The patient was treated with steroids and antibiotics for COPD exacerbation and was weaned to RA prior to discharge. She underwent ERCP with [facility] on 07/17 with successful gallstone removal. The patient was treated with PPI for gastritis and was started on a 14 day course of Fluconazole due to biopsies from the EGD with fungal organisms present. She was supposed to follow up with General Surgery and GI for possible cholecystectomy. Update: 1948: Patient lost all IV sites, telemetry stickers have caused skin irritation and damage, we are unable to get a reliable blood pressure due to the swelling in her extremities and significant pain. Had a long discussion with the patient and her regarding goals of care. We explained that at this time she does have a bacterial pneumonia. However, at this time her chronic medical conditions have processed to the point of severe anasarca which cannot be reversed. We explained that her chronic medical conditions are not reversible at this time. Continuing to try and treat her acute medical conditions is causing her incredible pain and distress. We discussed her options which include full efforts to treat chronic and acute medical conditions or focusing on keeping her comfortable with as little distress as possible. The patient clearly stated that she understands the severity of her clinical condition and the inability to rev erse her chronic medical conditions. At this time she wishes to be transitioned to comfort measures while in the hospital with plans for hospice on discharge. Her , Ramon, is also in agreement with this plan as trying to treat her numerous acute and chronic medical conditions is causing her significant pain and distress. We gave the patient the option to move forward with oral antibiotics for her pneumonia as she has lost all IV sites and does not want any additional placed. We explained the risks of continuing oral antibiotics such as GI upset and diarrhea. We also explained the risks of holding antibiotics including progression of her infection with the risk of expediting the timing of . At this time the patient would like to stop antibiotics. She will be transitioned to comfort measures. Please refer to Dr. Donald's attestation for any changes to the treatment plan Allergies Allergy/AdvReac Type Severity Reaction Status Date / Time No Known Allergies Allergy Verified 07/24/23 13:30 Home Medications Medication Instructions Recorded Confirmed Type naloxone 4 mg/actuation nasal 4 mg intranasal DIRECTED PRN 06/13/21 07/19/23 History spray (Narcan) OVERSEDATION acetaminophen 325 mg tablet 650 mg (2 x 325 mg) PO Q6H PRN 10/04/22 07/19/23 Rx pain #30 tabs furosemide 40 mg tablet 40 mg PO BID #60 tabs 10/23/22 07/19/23 Rx Medical Thc 1 dose inhalation DAILY 03/28/23 07/19/23 History metoprolol succinate 100 mg 100 mg PO QAM 03/28/23 09/02/23 History tablet,extended release 24 hr famotidine 20 mg tablet 20 mg PO BID #90 tabs 04/10/23 09/02/23 Rx pantoprazole 40 mg tablet,delayed 40 mg PO BID #90 tabs 05/14/23 09/02/23 Rx release albuterol sulfate 90 mcg/actuation 2 inh inhalation Q4H PRN shortness 05/22/23 09/02/23 Rx aerosol inhaler (ProAir HFA) of breath or wheezing #18 grams albuterol sulfate 2.5 mg/3 mL 2.5 mg (3 mL) inhalation QID PRN 05/24/23 07/19/23 Rx (0.083 %) solution for nebulization shortness of breath or wheezing #180 mL fluticasone fur. 200 mcg-umeclid 1 inh inhalation DAILY #60 ea 05/24/23 09/02/23 Rx 62.5 mcg-vilant 25 mcg inhalat.powder (Trelegy Ellipta) hydrocortisone 20 mg tablet 40 mg (2 x 20 mg) PO BID PRN see 06/07/23 09/02/23 Rx specific directions #90 tabs ondansetron 4 mg disintegrating 4 mg PO Q6H PRN NAUSEA/VOMITING 07/06/23 09/02/23 Rx tablet #20 tabs atorvastatin 40 mg tablet 40 mg PO QAM #90 tabs 07/12/23 09/02/23 Rx apixaban 5 mg tablet 5 mg PO BID #60 tabs 07/16/23 09/02/23 Rx empagliflozin 10 mg tablet 10 mg PO QAM #90 tabs 07/16/23 09/02/23 Rx (Jardiance) sacubitril 24 mg-valsartan 26 mg 1 tab PO BID #180 tabs 07/27/23 09/02/23 Rx tablet (Entresto) potassium chloride 20 mEq 20 meq PO BID 1 month #60 tabs 07/31/23 07/19/23 Rx tablet,extended release incontinence pad, liner, disp #156 ea 08/13/23 Rx oxycodone 10 mg tablet 10 mg PO Q6H PRN pain #139 tabs 08/13/23 09/02/23 Rx Past Med/Surg History Medical History (Updated 09/03/23 @ 06:47 by Mora Hernandez DNP) (HFpEF) heart failure with preserved ejection fraction Adrenal insufficiency [place] with [facility] History of MTHFR mutation per medical records -- pt unaware History of COVID-19 tested positive 10/2022 at [facility] -- fatigue, weakness, lethargy, chills/fever Weight loss, unintentional for the last 2 years -> has lost about 70lbs. 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 uses wheelchair, able to stand and pivot Hypersomnolence Continuous tobacco abuse Chronic heart failure with preserved ejection fraction Paroxysmal atrial fibrillation hx -> follows with Dr. Sinclair Type 2 diabetes mellitus pt denies Cardiomyopathy Pulmonary hypertension hx -- pt unaware SOB (shortness of breath) RBBB Pulmonary emboli ~2020. pt unsure why she had the blood clot. treated with medication UTI (urinary tract infection) hx Hypomagnesemia Eosinophilic esophagitis C. difficile enteritis hx - no recent episodes VRE infection (vancomycin resistant Enterococcus) pt unaware -- per medical record dx 2021 at [facility] (urine) History of revision of total replacement of right hip joint 03/25/21 - [facility]; explantation old hardware, wound vac placement. History of septic shock 03/2021 - due to septic R hip; 04/2021 - again due to septic R hip - hospitalized [facility] each admission. Pseudomonas, proteus, oj albicans. Edema hx - doing well currently Acute renal failure Cerebral aneurysm Per records, pt unaware No significant aneurysm noted with head CTA and brain MRI from 01/2020 Osteoarthritis GERD (gastroesophageal reflux disease) Carotid stenosis, left S/P L CEA (02/18/20) (Prior to CEA patient had 80% LICA stenosis ) History of Meniere's disease CKD (chronic kidney disease) stage III CVA (cerebral vascular accident) CVA 02/11/20- no residual effects, follows with [facility], patient was on plavix until ~1 month after left CEA surgery, now on ASA 81mg Depression with anxiety Hyperlipidemia Hypertension History of prediabetes HGBA1C 6.1% on 01/28/21 Asthma PT STATES TAKES RESCUE INHALER DAILY Surgical History (Updated 08/31/23 @ 00:10 by Background Daemon) History of hip surgery removal of the right hip joint replacement 01/2023 d/t chronic infection. History of incision and drainage right hip - multiple I/D's, 03/2021-04/2021; [facility]. Status post revision of total hip replacement (~01/2021) History of total hip arthroplasty RT> with repair H/O carotid endarterectomy Left CEA: 02/18/20: Grade view 1 with head lift, MAC#3, ETT 7.0 at [facility] S/P carotid endarterectomy History of bilateral tubal ligation History of esophagogastroduodenoscopy (EGD) History of colonoscopy History of appendectomy History of tooth extraction History of tonsillectomy History of cataract surgery R/L History of section x1 History of brain surgery ~2015 (Meniere's treatment/[facility]) History of cholecystectomy History of Family History Mother Diabetes Family history of diabetes mellitus Sister Diabetes Family history of diabetes mellitus Arterial thrombosis Amputation of leg Father Heart disease Lung disease Other No family history of adverse response to anesthesia Denies family history of Ovarian cancer Prostate cancer Myocardial infarction Breast cancer Colorectal cancer Social History Smoking Status: Former smoker Tobacco Type: Cigarettes Age Started Using Tobacco: 17; Age Quit Using Tobacco: 65; packs per day: 1; Cigarettes Per Day: 10 to 15 a day. Sometimes a pack a day. Educated Pt on -Quit Now.; Second Hand Exposure: Yes; Do You Dip or Chew Tobacco: No; Hx Alcohol Use: No Hx Substance Use: Yes Last Used Substance: Days (ago) Last Used Substance Other:: 03/27/23 Substance Use Type Other:: daily use Preferred Language: Tajik Communication Ability: Effective Visual Impairment: No Limitations Hearing Ability: Normal Hide Inspector And Sorter Required: No Beliefs That Will Affect Care: None marital status: Unknown Current Living Situation: Other Current Living Situation Comment: lived in an apartment in [place] with niece as "caregiver" current occupational status: retired 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 How many Children do You have: 2 How many Children do You have Comment: 1 child from suicide Other Information That Helps Us Care for You: No Feels Safe at Home: Yes Safety Concerns: Feels Safe At This Time Childhood Exposure to Second-Hand Smoke: Yes Diet: regular Dental Care, Regularly: No Physical Activity Frequency: Does not Exercise Seatbelt Use: always Sunscreen Use: No Assistive Devices: Denture - Upper, Hospital Bed, Walker and Wheelchair Physical Exam Physical Exam: Physical Exam: General: In no acute distress, stated age, chronically ill appearing, poor hygiene HEENT: Normocephalic, atraumatic, no scleral icterus, pupils around round, symmetrical, and reactive to light, dry mucus membranes, trachea midline, no thyromegaly Chest/Pulm: No respiratory distress, symmetrical chest expansion, rhonchi noted in the right lower lung with scattered expiratory wheezing in all other nina Cardiac: RRR, 3/6 systolic murmur noted Abdomen: Negative for ascites and bruising, normoactive bowel sounds, soft, non-tender to palpation throughout Musculoskeletal: Patient with chronic shortening and external rotation of the RLE due to previous right hip hardware removal, limited mobility of the BL upper extremities and LLE due to chronic swelling and pain, no acute trauma on exam Extremities: Radial, dorsalis pedis, and posterior tibial pulses are intact and symmetrical, significant edema noted in BL upper and lower extremities Skin: Chronic bruising in the BL upper extremities, scattered scratches without signs of infection or drainage in the BL LE's, patient with non-bleeding sacral ulcers difficult to visualize as the patient was unable to significantly roll for adequate visualization Neuro: Alert and oriented to person, place, month, year, and president, no focal defects, no tremors noted Psych: No acute distress, calm and cooperative during the exam Results & Data Results & Data Vital Signs (Past 12 Hours) Vital Signs Temp Pulse Resp BP Pulse Ox O2 Del Method 09/02/23 13:06 37.3 C 110 H 23 84/60 L 95 Room Air Laboratory Results Abnormal lab results 09/02/23 09/02/23 Range/Units 13:51 16:19 WBC 12.87 H (4.8-10.8) K/ul RBC 3.48 L (4.20-5.40) M/uL Hgb 10.1 L (12.0-16.0) g/dl Hct 35.0 L (37.0-47.0) % MCV 100.6 H (80.0-100.0) fL MCHC 28.9 L (32.0-36.0) g/dL RDW Std Deviation 83.8 H (36.4-46.3) fL RDW Coeff of Crow 23.1 H (11.5-14.5) % Neut # (Auto) 8.50 H (1.40-6.50) K/uL Immature Gran # (Auto) 0.51 H (0.01-0.20) K/uL Absolute Nucleated RBC 0.22 H (0.00-0.12) K/uL Chloride 111 H (98-107) mmol/L BUN 24 H (6-23) mg/dl BUN/Creatinine Ratio 28.6 H (10-20) Lactate 3.0 H* (0.4-2.0) mmol/L Calcium 7.7 L (8.6-10.3) mg/dl Troponin I High Sens 59.6 H* 61.9 H* (0-14) pg/ml B-Natriuretic Peptide 704 H (0-100) pg/ml Total Protein 4.2 L (6.0-8.3) gm/dl Albumin 2.2 L (3.4-5.0) gm/dl Diagnostic Findings Chest X-Ray 09/02/23 14:12 XR chest 1V portable CLINICAL HISTORY: Sepsis. COMPARISON STUDY: Chest CT July 22, 2023. Chest radiograph July 30, 2023. FINDINGS: Lung volumes are normal. Hazy right basilar opacity is new since prior chest radiograph. There is no pneumothorax. There is a trace right pleural effusion. Cardiac size is normal. Mediastinal contours are normal. There is no evidence for pulmonary edema. IMPRESSION: 1. Hazy right basilar opacity. This may reflect pneumonia. Radiographic follow- up is recommended to ensure resolution. 2. Trace right pleural effusion. ACT 112: Negative or not required by law. Electronically signed by: Marquez Coronel M.D. 09/02/2023 2:31 PM ECG Additional Comments: Sinus tachycardia Right ventricular hypertrophy with repolarization abnormality Abnormal ECG When compared with ECG of 27-JUL-2023 10:13, Vent. rate has increased BY 59 BPM Right bundle branch block is no longer Present Code Status & VTE Plan Code Status DNR/DNI VTE Prophylaxis Plan VTE Prophylaxis will be ordered: Yes Supervising Physician Co-Signing Physician Notes I personally saw and examined the patient. I verified all garcia points and agree with Scout Mina PA-C with the following exceptions and/or additions: 68 year old female presents to the ER with decreased appetite, general decline, swelling in all 4 extremities, generalized pain over entire body. O/E A&Ox3, HS RRR, systolic murmur, no respiratory distress, no crackles or wheezing, Abdo tender throughout, pitting edema to all 4 extremities which appears very painful to touch with ecchymosis on all 4 limbs A/P Comfort care - patient with significant pain and 3rd spacing but with intravascular depletion as evidenced by low BP and improvement of lactate with IV fluids bolus. Difficulty obtaining IV access and getting repeat labs for ongoing active medical care and IV infiltrated in the CT for contrast. She is in significant distress with all of this medical care and wishes to switch to a more comfort/symptomatic approach. We discussed oral antibiotics for pneumonia but she declined this. Will switch to a more comfort approach but continue double dose of hydrocortisone for the next day. Jardiance initially continued but suspect this can be discontinued on discharge. Extensive conversation in presence of PA and and all in agreement to this approach moving forward. Her will be available tomorrow afternoon for ongoing discussions. PG Care Time/CCT Total # of Minutes Spent Total Time Spent with Patient: Total time spent is greater than 50% in coordination of care (as documented) at patient's floor/unit and/or counseling patient: C[place] [address] INT INP/OBS CARE 3/75MIN Patient Type Established Medical Decision Making Moderate Complexity Diagnoses Comfort measures only status Z51.5
[2023-09-02 17:44] LABS: Appearance Urine Cloudy (Clear); Bacteria Urine Automated Negative (Negative); Bilirubin Urine Negative (Negative); Blood Urine Negative (Negative); Color Urine Yellow; Glucose Urine UA Trace (Negative); Ketones Urine Negative (Negative); Leukocyte Esterase Urine 2+ (Negative); Nitrite Urine Negative (Negative); Specific Gravity Urine 1.017 (1.000-1.030); Urobilinogen Urine Positive (Negative); pH Urine 8.5 (4.5-7.5)
[2023-09-02] MEDS ORDERED: oxyCODONE HCL IR 5 MG TAB (IMMEDIATE RELEASE) PO PRN (17:44)
[2023-09-02 17:47] LABS: Protein Urine Trace (Negative)
[2023-09-02 18:01] LABS: RBC Urine Automated 0-4 /hpf (0-4)
[2023-09-02] MEDS ORDERED: OPTIRAY 320 500ml IV ONE (18:11)
[2023-09-02 18:30] LABS: Adenovirus PCR Not Detected (NotDetected); Bordetella parapertussis PCR Not Detected (NotDetected); Bordetella pertussis PCR Not Detected (NotDetected); Chlamydia pneumoniae PCR Not Detected (NotDetected); Coronavirus 229E PCR Not Detected (NotDetected); Coronavirus CoV-2 (COVID19)PCR Not Detected (NotDetected); Coronavirus HKU1 PCR Not Detected (NotDetected); Coronavirus NL63 PCR Not Detected (NotDetected); Coronavirus OC43PCR Not Detected (NotDetected); Human Metapneumovirus PCR Not Detected (NotDetected); Influenza A PCR Not Detected (NotDetected); Influenza B PCR Not Detected (NotDetected); Mycoplasma pneumoniae PCR Not Detected (NotDetected); Parainfluenza Virus 1 PCR Not Detected (NotDetected); Parainfluenza Virus 2 PCR Not Detected (NotDetected); Parainfluenza Virus 3 PCR Not Detected (NotDetected); Parainfluenza Virus 4 PCR Not Detected (NotDetected); Respiratory Syncytial VirusPCR Not Detected (NotDetected); Rhinovirus/Enterovirus PCR Not Detected (NotDetected)
--- NOTE | 2023-09-02 18:37 | CT Scan Report ---
CT OF THE CHEST WITHOUT IV CONTRAST CLINICAL HISTORY: hypotension, possible pna on CXR COMPARISON STUDY: Chest CT July 22, 2023. Chest radiograph performed earlier today. TECHNIQUE: Axial images of the chest were obtained without IV contrast. Images were reviewed in the axial, sagittal, and coronal planes. IV contrast was not administered for this examination. Automat ed exposure control was utilized for the study. A dose lowering technique was utilized adhering to t he principles of ALARA. FINDINGS: Subcutaneous hyperdensity within the anterior right shoulder represents infiltration of co ntrast. Adjacent stranding and edema is present. Body wall edema is also present within the lower patrizia st and visualized portions of the abdomen. The abdomen and pelvis CT will be reported separately. The re is no thoracic lymphadenopathy. Size of the heart is normal. No pericardial effusion. No pneumotho rax is present. A small right pleural effusion is noted. Subpleural right lower lobe opacity favors a telectasis. A 1.5 cm nodular left upper lobe opacity on image 98 of [address] of Jul. This may be cavitary. Alternatively, the lucencies within this opacity could represent emphysematous lung. Mild emphysema is noted. There are moderate secretions within the trachea and toma nstem bronchi. No central obstructing mass is noted. The abdomen and pelvis CT will be reported separ ately. IMPRESSION: 1. Small right pleural effusion with subpleural right lower lobe opacity suggestive of atelectasis. 2. 1.5 cm nodular left upper lobe opacity which is developed since CT of July 22, 2023. This favors a small focus of pneumonia. Lucencies within this opacity are likely related to emphysema although c avitation could appear similar. A follow up chest CT in 2 months to ensure resolution is recommended. 3. Anterior right shoulder IV contrast infiltration. Adjacent edema and stranding. 4. Anasarca. 5. Moderate secretions within the airways. ACT 112: Negative or not required by law. Electronically signed by: Marquez Coronel M.D. 09/02/2023 6:35 PM
[2023-09-02] MEDS: ALBUTEROL 0.5% NEB SOLN 2.5 MG/0.5 ML VIAL NEB SCH (18:45)
--- NOTE | 2023-09-02 18:49 | CT Scan Report ---
CT OF THE ABDOMEN AND PELVIS WITHOUT CONTRAST CLINICAL HISTORY: hypotension, sacral wounds COMPARISON STUDY: CT of the abdomen and pelvis July 22, 2023. MRCP July 24, 2023. Abdominal ser ies July 27, 2023 TECHNIQUE: Axial images of the abdomen and pelvis were obtained without IV contrast. Images were revi ewed in the axial, sagittal, and coronal planes. Automated exposure control was utilized for the sofie dy. A dose lowering technique was utilized adhering to the principles of ALARA. FINDINGS: A small right pleural effusion is present. Subpleural opacity favors atelectasis. There is diffuse anasarca. Evaluation of the abdomen and pelvis is suboptimal on this unenhanced exam. The gal lbladder is surgically absent. There is pneumobilia. Excreted contrast within the collecting systems, ureters and bladder is noted. There is gas and a [place]a balloon within the bladder. There is no evide nce for a bowel obstruction. Moderate amount of stool within the rectum is present. There is no lymph adenopathy. Chronic deformity and dislocation of the right hip is unchanged. There is possible avascu lar necrosis of the left femoral head. Suspected wound overlying the inferior sacrum and coccyx is no jeri. There is no CT evidence for acute osteomyelitis. There is mild presacral edema. No fluid collect ions are identified. There is no soft tissue gas. There is colonic diverticulosis without evidence fo r acute diverticulitis. IMPRESSION: 1. No bowel obstruction. No bowel wall thickening on unenhanced exam. Moderate amount of stool within the rectum. 2. Suspected wound overlying the inferior sacrum and coccyx. No CT evidence for acute osteomyelitis. No fluid collection. 3. Anasarca. 4. Chronic deformity and dislocation of the right hip, unchanged in appearance. 5. Small right pleural effusion with right lower lobe opacity suggestive of atelectasis. ACT 112: Negative or not required by law. Electronically signed by: Marquez Coronel M.D. 09/02/2023 6:47 PM
--- NOTE | 2023-09-02 19:32 | Pharmacy Report ---
Pharmacy PK ABX Note - Date of Service September 02, 2023 - Assessment and Plan Assessment 68 year old F receiving vancomycin/ceftriaxone for treatment of pneumonia/sacral wounds. Pertinent microbiologic data includes: blood cultures/urine culture pending Day # 1 of antimicrobial therapy. Plan Vancomycin * Loading dose: 1250 mg IV x 1 * Maintenance dose: 750 mg IV every 12 hours * Regimen is predicted to achieve target AUC/SHARRI of 400-600 mg/L.hr * Trough level ordered for: 09/04/23 @0430 Pharmacy will continue to follow and will adjust dose/frequency as necessary. Thank you. Pharmacy has transitioned to AUC monitoring for vancomycin. AUC/SHARRI is the preferred PK/PD target and is associated with decreased risk of nephrotoxicity compared to traditional trough targets.
[2023-09-02] MEDS ORDERED: ATROPINE SULFATE 1% OP SOLN 5 ML BTL SL PRN (19:40)
[2023-09-02] MEDS ORDERED: HYOSCYAMINE SULFATE 0.125 MG TAB SL PRN (19:40)
[2023-09-02] MEDS ORDERED: haloperidoL 1 MG TAB PO PRN (19:40)
[2023-09-02] MEDS ORDERED: LORazepam 0.5 MG TAB PO PRN (19:40)
[2023-09-02] MEDS ORDERED: HYDROCORTISONE 10 MG TAB PO SCH (21:00)
[2023-09-02] MEDS ORDERED: HYDROCORTISONE 10 MG TAB PO ONE (21:00)
[2023-09-02] MEDS ORDERED: APIXABAN 5 MG TABLET PO SCH (21:00)
[2023-09-02] MEDS: PANTOprazole 40 MG TAB PO SCH (22:31)
[2023-09-02] MEDS: FAMOTIDINE 20 MG TAB PO SCH (22:31)
[2023-09-02] MEDS ORDERED: HYDROCORTISONE SOD SUCCINATE 100 MG/2 ML VIAL IV SCH (23:00)
[2023-09-02] MEDS ORDERED: HYDROCORTISONE SOD 50 MG in SYRINGE 0 ML IV SCH (23:00)
[2023-09-03] MEDS: ALBUTEROL 0.5% NEB SOLN 2.5 MG/0.5 ML VIAL NEB SCH ×2 (01:47→07:05)
[2023-09-03] MEDS ORDERED: VANCOMYCIN HCL 750 MG in SODIUM CHLORIDE 0.9% 250 ML IV SCH (05:00)
--- NOTE | 2023-09-03 06:48 | Palliative Care Consultation ---
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 Orders reviewed. Chart reviewed; detailed d/w family and patient by primary team. no acute inpatient Palliative Medicine needs noted. Disposition desires/pt goals etc. are all clarified and well documented by excellent primary team discussions. There is no documentation of poorly controlled symptoms. Discharge planning w/home hospice is handled by care mgt; please note, care mgt can arrange for hospice team to come meet with pt/family prior to dc if family desires. Pt not seen/no charge submitted. TS: 20min Thank you for allowing us to participate in the ongoing care of this patient. Please don't hesitate to call or page with any additional concerns. Dr. Mora Hernandez DNP Director, Palliative Care History of Present Illness Reason for Consultation: on comfort measures, hospice at dc Attending Physician: Brandon Donald MD History of Present Illness admitted for comfort care desires hospice at home, primary team has met/discussed with pt & family chart reviewed Allergies Allergy/AdvReac Type Severity Reaction Status Date / Time No Known Allergies Allergy Verified 07/24/23 13:30 Home Medications Medication Instructions Recorded Confirmed Type naloxone 4 mg/actuation nasal 4 mg intranasal DIRECTED PRN 06/13/21 07/19/23 History spray (Narcan) OVERSEDATION acetaminophen 325 mg tablet 650 mg (2 x 325 mg) PO Q6H PRN 10/04/22 07/19/23 Rx pain #30 tabs furosemide 40 mg tablet 40 mg PO BID #60 tabs 10/23/22 07/19/23 Rx Medical Thc 1 dose inhalation DAILY 03/28/23 07/19/23 History metoprolol succinate 100 mg 100 mg PO QAM 03/28/23 09/02/23 History tablet,extended release 24 hr famotidine 20 mg tablet 20 mg PO BID #90 tabs 04/10/23 09/02/23 Rx pantoprazole 40 mg tablet,delayed 40 mg PO BID #90 tabs 05/14/23 09/02/23 Rx release albuterol sulfate 90 mcg/actuation 2 inh inhalation Q4H PRN shortness 05/22/23 09/02/23 Rx aerosol inhaler (ProAir HFA) of breath or wheezing #18 grams albuterol sulfate 2.5 mg/3 mL 2.5 mg (3 mL) inhalation QID PRN 05/24/23 07/19/23 Rx (0.083 %) solution for nebulization shortness of breath or wheezing #180 mL fluticasone fur. 200 mcg-umeclid 1 inh inhalation DAILY #60 ea 05/24/23 09/02/23 Rx 62.5 mcg-vilant 25 mcg inhalat.powder (Trelegy Ellipta) hydrocortisone 20 mg tablet 40 mg (2 x 20 mg) PO BID PRN see 06/07/23 09/02/23 Rx specific directions #90 tabs ondansetron 4 mg disintegrating 4 mg PO Q6H PRN NAUSEA/VOMITING 07/06/23 09/02/23 Rx tablet #20 tabs atorvastatin 40 mg tablet 40 mg PO QAM #90 tabs 07/12/23 09/02/23 Rx apixaban 5 mg tablet 5 mg PO BID #60 tabs 07/16/23 09/02/23 Rx empagliflozin 10 mg tablet 10 mg PO QAM #90 tabs 07/16/23 09/02/23 Rx (Jardiance) sacubitril 24 mg-valsartan 26 mg 1 tab PO BID #180 tabs 07/27/23 09/02/23 Rx tablet (Entresto) potassium chloride 20 mEq 20 meq PO BID 1 month #60 tabs 07/31/23 07/19/23 Rx tablet,extended release incontinence pad, liner, disp #156 ea 08/13/23 Rx oxycodone 10 mg tablet 10 mg PO Q6H PRN pain #139 tabs 08/13/23 09/02/23 Rx Patient History Medical History (Updated 09/03/23 @ 06:47 by Mora Hernandez DNP) (HFpEF) heart failure with preserved ejection fraction Adrenal insufficiency follows with [facility] [place] Endocrinology History of MTHFR mutation per medical records -- pt unaware History of COVID-19 tested positive 10/2022 at [facility] -- fatigue, weakness, lethargy, chills/fever Weight loss, unintentional for the last 2 years -> has lost about 70lbs. 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 uses wheelchair, able to stand and pivot Hypersomnolence Continuous tobacco abuse Chronic heart failure with preserved ejection fraction Paroxysmal atrial fibrillation hx -> follows with Dr. Sinclair Type 2 diabetes mellitus pt denies Cardiomyopathy Pulmonary hypertension hx -- pt unaware SOB (shortness of breath) RBBB Pulmonary emboli ~2020. pt unsure why she had the blood clot. treated with medication UTI (urinary tract infection) hx Hypomagnesemia Eosinophilic esophagitis C. difficile enteritis hx - no recent episodes VRE infection (vancomycin resistant Enterococcus) pt unaware -- per medical record dx 2021 at [facility] (urine) History of revision of total replacement of right hip joint 03/25/21 - [facility]; explantation old hardware, wound vac placement. History of septic shock 03/2021 - due to septic R hip; 04/2021 - again due to septic R hip - hospitalized [facility] each admission. Pseudomonas, proteus, oj albicans. Edema hx - doing well currently Acute renal failure Cerebral aneurysm Per records, pt unaware No significant aneurysm noted with head CTA and brain MRI from 01/2020 Osteoarthritis GERD (gastroesophageal reflux disease) Carotid stenosis, left S/P L CEA (02/18/20) (Prior to CEA patient had 80% LICA stenosis ) History of Meniere's disease CKD (chronic kidney disease) stage III CVA (cerebral vascular accident) CVA 02/11/20- no residual effects, follows with [facility], patient was on plavix until ~1 month after left CEA surgery, now on ASA 81mg Depression with anxiety Hyperlipidemia Hypertension History of prediabetes HGBA1C 6.1% on 01/28/21 Asthma PT STATES TAKES RESCUE INHALER DAILY Surgical History (Updated 08/31/23 @ 00:10 by Background Daemon) History of hip surgery removal of the right hip joint replacement 01/2023 d/t chronic infection. History of incision and drainage right hip - multiple I/D's, 03/2021-04/2021; [facility]. Status post revision of total hip replacement (~01/2021) History of total hip arthroplasty RT> with repair H/O carotid endarterectomy Left CEA: 02/18/20: Grade view 1 with head lift, MAC#3, ETT 7.0 at [facility] S/P carotid endarterectomy History of bilateral tubal ligation History of esophagogastroduodenoscopy (EGD) History of colonoscopy History of appendectomy History of tooth extraction History of tonsillectomy History of cataract surgery R/L History of section x1 History of brain surgery ~2015 ([facility]) History of cholecystectomy History of Family History Mother Diabetes Family history of diabetes mellitus Sister Diabetes Family history of diabetes mellitus Arterial thrombosis Amputation of leg Father Heart disease Lung disease Other No family history of adverse response to anesthesia Denies family history of Ovarian cancer Prostate cancer Myocardial infarction Breast cancer Colorectal cancer Social History Smoking Status: Former smoker Tobacco Type: Cigarettes Age Started Using Tobacco: 17; Age Quit Using Tobacco: 65; packs per day: 1; Cigarettes Per Day: 10 to 15 a day. Sometimes a pack a day. Educated Pt on -Quit Now.; Second Hand Exposure: Yes; Do You Dip or Chew Tobacco: No; Hx Alcohol Use: No Hx Substance Use: Yes Last Used Substance: Days (ago) Last Used Substance Other:: 03/27/23 Substance Use Type Other:: daily use Preferred Language: Kenyan Communication Ability: Effective Visual Impairment: No Limitations Hearing Ability: Normal Fluid Jet Cutter Operator Required: No Beliefs That Will Affect Care: None marital status: Unknown Current Living Situation: Other Current Living Situation Comment: lived in an apartment in [facility] with niece as "caregiver" current occupational status: retired 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 How many Children do You have: 2 How many Children do You have Comment: 1 child from suicide Other Information That Helps Us Care for You: No Feels Safe at Home: Yes Safety Concerns: Feels Safe At This Time Childhood Exposure to Second-Hand Smoke: Yes Diet: regular Dental Care, Regularly: No Physical Activity Frequency: Does not Exercise Seatbelt Use: always Sunscreen Use: No Assistive Devices: Denture - Upper, Hospital Bed, Walker and Wheelchair Results & Data Vital Signs (Past 12 Hours) Vital Signs Temp Pulse Resp Pulse Ox O2 Del Method 09/02/23 21:30 Room Air 09/02/23 21:30 36.6 C 87 20 95 Room Air 09/02/23 18:45 92 H 17 96 Room Air 09/02/23 18:42 97 H 22 98 Room Air PG Care Time/CCT Total # of Minutes Spent Total Time Spent with Patient: Total time spent is greater than 50% in coordination of care (as documented) at patient's floor/unit and/or counseling patient: Coding Level of Care Code None Diagnoses Palliative care by specialist Z51.5
[2023-09-03] MEDS: MoRPHine SULFATE 10 MG/0.5 ML UDP PO PRN ×3 (09:00→21:52)
[2023-09-03] MEDS ORDERED: HYDROCORTISONE 10 MG TAB PO ONE ×2 (09:00→21:00)
[2023-09-03] MEDS ORDERED: HYDROCORTISONE 10 MG TAB PO SCH ×3 (09:00→21:00)
[2023-09-03] MEDS ORDERED: ATORVASTATIN 40 MG TAB PO SCH (09:00)
[2023-09-03] MEDS ORDERED: NON-FORMULARY MEDICATION (Fluticasone-Umeclidin-Vilanter [Trelegy Ellipta] 200-62.5-25 mcg INH SCH (09:00)
[2023-09-03] MEDS: EMPAGLIFLOZIN 10 MG TAB PO SCH (09:03)
[2023-09-03] MEDS: FLUTICASONE FUROATE 200MCG 14 PUFFS/INHALER INH SCH (09:03)
[2023-09-03] MEDS: FAMOTIDINE 20 MG TAB PO SCH ×2 (09:03→21:58)
[2023-09-03] MEDS: PANTOprazole 40 MG TAB PO SCH ×2 (09:04→21:53)
[2023-09-03] MEDS: METOPROLOL SUCC 50MG EXT REL TAB PO SCH (09:04)
[2023-09-03] MEDS: UMECLIDINIUM/VILANTEROL 62.5/25MCG 7 PUFFS/INHALER INH SCH (09:05)
[2023-09-03] MEDS ORDERED: ALBUTEROL 0.5% NEB SOLN 2.5 MG/0.5 ML VIAL NEB PRN (09:11)
--- NOTE | 2023-09-03 12:45 | Hospitalist Progress Note ---
Date of Service September 03, 2023 Assessment & Plan (1) Comfort measures only status: Plan: Appreciate palliative care consultation and recommendations. Eventual discharge back to home with hospice care. 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 Supportive care (3) (HFpEF) heart failure with preserved ejection fraction: Plan: No overt CHF at this time. Monitor intake and output (4) Adrenal insufficiency: Plan: Steroid-dependent (5) Anasarca: Plan: Supportive care. Comfort measures only Plan Palliative care consultation and recommendations appreciated. Eventual discharge to home with hospice Admission and Anticipated Discharge Date Admission Date: September 02, 2023 Subjective Alert and oriented. Cushingoid appearance from chronic steroid therapy. She is transitioning to comfort care measures at this time. She appears to have right lower lobe pneumonia but has opted for comfort care measures only at this point. Review of Systems 2 Review of Systems: Constitutional-no fever or chills. Cushingoid appearance ENT-no blurred vision, no double vision, no epistaxis, no sore throat Respiratory-nonproductive cough. Shortness of breath with exertion Cardiac-no palpitations, no chest pain, no syncope GI-no nausea, vomiting, diarrhea, melena, hematochezia -no urinary retention, no urinary incontinence, no dysuria, no hematuria Musculoskeletal-diffuse swelling and easy bruisability Skin-multiple ecchymotic areas and skin tears on the upper and lower extremities Neuro-generalized weakness. No focal deficits Psych-no depression, no anxiety Physical Exam 2 Physical Exam: General-alert and oriented x3, no fevers, no chills. Cushingoid appearance HEENT-head atraumatic and normocephalic, pupils equal and reactive to light, extraocular muscles intact Neck-no lymphadenopathy or thyromegaly, trachea midline Chest-scattered rhonchi and diminished breath sounds at the bases. No audible wheezing Cardiac-regular rate and rhythm, normal S1 and S2 Abdomen-normal bowel sounds, nontender, no hepatosplenomegaly Skinecchymotic areas all 4 extremities. Several skin tears noted, most notably dorsal aspect right hand Extremities-diffuse nonpitting edema all 4 extremities Neuro-cranial nerves II through XII intact, motor and sensory function within normal limits, strength symmetrical with generalized weakness, no focal deficits Psych-normal affect, normal mood Results & Data Results & Data Vital Signs (Past 12 Hours) Vital Signs Pulse Resp Pulse Ox O2 Del Method 09/03/23 07:06 84 18 90 Room Air Laboratory Results 09/02/23 13:51 09/02/23 13:51 PG Care Time/CCT Total # of Minutes Spent Total Time Spent with Patient: Total time spent is greater than 50% in coordination of care (as documented) at patient's floor/unit and/or counseling patient: Coding Level of Care Code 87971 SUB INP/OBS CARE 3/50MIN Diagnoses Comfort measures only status Z51.5 Cushingoid side effect of steroids E24.2 (HFpEF) heart failure with preserved ejection fraction I50.30 Adrenal insufficiency E27.40 Anasarca R60.1
[2023-09-03] MEDS ORDERED: cefTRIAXone SODIUM 2,000 MG in DEXTROSE 5 % MINI-B 50 ML IV SCH (15:00)
[2023-09-04] MEDS: MoRPHine SULFATE 10 MG/0.5 ML UDP PO PRN ×3 (00:54→13:43)
[2023-09-04] MEDS ORDERED: VANCOMYCIN LEVEL ONE (04:00)
[2023-09-04] MEDS: HYDROCORTISONE 10 MG TAB PO SCH ×2 (09:11→21:10)
[2023-09-04] MEDS: EMPAGLIFLOZIN 10 MG TAB PO SCH (09:11)
[2023-09-04] MEDS: PANTOprazole 40 MG TAB PO SCH ×2 (09:11→21:09)
[2023-09-04] MEDS: METOPROLOL SUCC 50MG EXT REL TAB PO SCH (09:13)
[2023-09-04] MEDS: FAMOTIDINE 20 MG TAB PO SCH ×2 (09:16→21:09)
--- NOTE | 2023-09-04 12:54 | Hospitalist Progress Note ---
Date of Service September 04, 2023 Assessment & Plan (1) Comfort measures only status: Plan: Appreciate palliative care consultation and recommendations. Eventual discharge back to home with hospice care. 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 Supportive care (3) (HFpEF) heart failure with preserved ejection fraction: Plan: No overt CHF at this time. Monitor intake and output (4) Adrenal insufficiency: Plan: Steroid-dependent (5) Anasarca: Plan: Supportive care. Comfort measures only Plan Palliative care consultation and recommendations appreciated. Eventual discharge to home with hospice . Admission and Anticipated Discharge Date Admission Date: September 02, 2023 Subjective Patient seen and examined today, no new complaints Review of Systems Review of Systems: All systems reviewed are negative, apart from the ones contained in the history. Physical Exam Physical Exam: The patient is awake, alert and oriented 3, well developed and well nourished, normocephalic and atraumatic, lying in bed and in no acute distress. HEENT--PERRL, EOMI, mucous membranes and oropharynx mildly dry Neck--supple. No JVD. No bruits. Thyroid normal, trachea midline, no adenopathy . Heart--normal S1 and S2. No murmurs, rubs or gallops. Lungs--clear bilaterally, no respiratory distress, no accessory muscle use. Abdomen--normal bowel sounds and soft. Extremities--no cyanosis or clubbing. No edema. Dermatologic--normal skin turgor, normal color, no abnormal lymph nodes, no rash. Neurologic--cranial nerves II through XII grossly intact. Rheumatologic--normal range of motion. Psychiatric--normal affect. Results & Data Results & Data Vital Signs (Past 12 Hours) Vital Signs O2 Del Method 09/04/23 12:06 Room Air PG Care Time/CCT Total # of Minutes Spent Total Time Spent with Patient: Total time spent is greater than 50% in coordination of care (as documented) at patient's floor/unit and/or counseling patient: Coding Level of Care Code 24356 SUB INP/OBS CARE /25MIN Diagnoses Comfort measures only status Z51.5 Cushingoid side effect of steroids E24.2 (HFpEF) heart failure with preserved ejection fraction I50.30 Adrenal insufficiency E27.40 Anasarca R60.1 Time Spent (min) 25
[2023-09-04] MEDS: FLUTICASONE FUROATE 200MCG 14 PUFFS/INHALER INH SCH (14:17)
[2023-09-04] MEDS: UMECLIDINIUM/VILANTEROL 62.5/25MCG 7 PUFFS/INHALER INH SCH (14:17)
[2023-09-05] MEDS: MoRPHine SULFATE 10 MG/0.5 ML UDP PO PRN ×5 (00:47→21:03)
[2023-09-05] MEDS: HYDROCORTISONE 10 MG TAB PO SCH ×2 (09:14→21:03)
[2023-09-05] MEDS: METOPROLOL SUCC 50MG EXT REL TAB PO SCH (09:14)
[2023-09-05] MEDS: PANTOprazole 40 MG TAB PO SCH ×2 (09:14→21:02)
[2023-09-05] MEDS: EMPAGLIFLOZIN 10 MG TAB PO SCH (09:14)
[2023-09-05] MEDS: FAMOTIDINE 20 MG TAB PO SCH ×2 (09:18→21:02)
[2023-09-05] MEDS: FLUTICASONE FUROATE 200MCG 14 PUFFS/INHALER INH SCH (10:26)
[2023-09-05] MEDS: UMECLIDINIUM/VILANTEROL 62.5/25MCG 7 PUFFS/INHALER INH SCH (10:26)
[2023-09-05] MEDS: ONDANSETRON 4 MG OD TAB SL PRN (10:29)
--- NOTE | 2023-09-05 14:02 | Hospitalist Progress Note ---
Date of Service September 05, 2023 Assessment & Plan (1) Comfort measures only status: Plan: Appreciate palliative care consultation and recommendations. Eventual discharge back to home with hospice care. 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 Supportive care (3) (HFpEF) heart failure with preserved ejection fraction: Plan: No overt CHF at this time. Monitor intake and output (4) Adrenal insufficiency: Plan: Steroid-dependent (5) Anasarca: Plan: Supportive care. Comfort measures only (6) Right hip pain: Plan: secondary to chronic right hip dislocation Patient is essentially bed bound (7) Wound of sacral region: Plan: present on admission Plan Palliative care consultation and recommendations appreciated. Eventual discharge to home with hospice . Admission and Anticipated Discharge Date Admission Date: September 02, 2023 Subjective Patient seen and examined today, no new complaints Review of Systems Review of Systems: All systems reviewed are negative, apart from the ones contained in the history. Physical Exam Physical Exam: The patient is awake, alert and oriented 3, well developed and well nourished, normocephalic and atraumatic, lying in bed and in no acute distress. HEENT--PERRL, EOMI, mucous membranes and oropharynx mildly dry Neck--supple. No JVD. No bruits. Thyroid normal, trachea midline, no adenopathy. Heart--normal S1 and S2. No murmurs, rubs or gallops. Lungs--clear bilaterally, no respiratory distress, no accessory muscle use. Abdomen--normal bowel sounds and soft. Extremities--no cyanosis or clubbing. No edema. Dermatologic--normal skin turgor, normal color, no abnormal lymph nodes, no rash. Neurologic--cranial nerves II through XII grossly intact. Rheumatologic--normal range of motion. Psychiatric--normal affect. Results & Data Results & Data Vital Signs (Past 12 Hours) Vital Signs O2 Del Method 09/05/23 09:23 Room Air PG Care Time/CCT Total # of Minutes Spent Total Time Spent with Patient: Total time spent is greater than 50% in coordination of care (as documented) at patient's floor/unit and/or counseling patient: Coding Level of Care Code 24934 SUB INP/OBS CARE 2/35MIN Diagnoses Comfort measures only status Z51.5 Cushingoid side effect of steroids E24.2 (HFpEF) heart failure with preserved ejection fraction I50.30 Adrenal insufficiency E27.40 Anasarca R60.1 Right hip pain M25.551 Wound of sacral region S31.000A Time Spent (min) 35
[2023-09-05] MEDS: MELATONIN 3 MG TAB PO PRN (21:02)
--- NOTE | 2023-09-05 22:46 | Electrocardiogram Report ---
Test Reason : Blood Pressure : / mmHG Vent. Rate : 108 BPM Atrial Rate : 108 BPM P-R Int : 134 ms QRS Dur : 120 ms QT Int : 338 ms P-R-T Axes : 119 086 069 degrees QTc Int : 452 ms Poor data quality, interpretation may be adversely affected Sinus tachycardia Right ventricular hypertrophy with repolarization abnormality Right bundle branch block Abnormal ECG When compared with ECG of 27-JUL-2023 10:13, Vent. rate has increased BY 59 BPM Confirmed by Homer Sinclair ([id number]) on 09/05/2023 10:46:19 PM Referred By: REFERRED SELF Confirmed By:Homer Sinclair
[2023-09-06] MEDS: MoRPHine SULFATE 10 MG/0.5 ML UDP PO PRN ×2 (09:02→13:56)
[2023-09-06] MEDS: METOPROLOL SUCC 50MG EXT REL TAB PO SCH (09:03)
[2023-09-06] MEDS: FLUTICASONE FUROATE 200MCG 14 PUFFS/INHALER INH SCH (09:03)
[2023-09-06] MEDS: UMECLIDINIUM/VILANTEROL 62.5/25MCG 7 PUFFS/INHALER INH SCH (09:03)
[2023-09-06] MEDS: PANTOprazole 40 MG TAB PO SCH ×2 (09:04→20:29)
[2023-09-06] MEDS: HYDROCORTISONE 10 MG TAB PO SCH ×2 (09:04→20:30)
[2023-09-06] MEDS: EMPAGLIFLOZIN 10 MG TAB PO SCH (09:04)
[2023-09-06] MEDS: FAMOTIDINE 20 MG TAB PO SCH ×2 (09:34→20:33)
--- NOTE | 2023-09-06 11:11 | Hospitalist Progress Note ---
Date of Service September 06, 2023 Assessment & Plan (1) Comfort measures only status: Plan: Appreciate palliative care consultation and recommendations. Eventual discharge back to home with hospice care. 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 Supportive care (3) (HFpEF) heart failure with preserved ejection fraction: Plan: No overt CHF at this time. Monitor intake and output (4) Adrenal insufficiency: Plan: Steroid-dependent (5) Anasarca: Plan: Supportive care. Comfort measures only (6) Right hip pain: Plan: secondary to chronic right hip dislocation Patient is essentially bed bound (7) Wound of sacral region: Plan: present on admission Plan Palliative care consultation and recommendations appreciated. Eventual discharge to home with hospice . Admission and Anticipated Discharge Date Admission Date: September 02, 2023 Subjective Patient seen and examined today, no new complaints she requested melatonin last night and she said it helped her sleep Review of Systems 2 Review of Systems: All systems reviewed are negative, apart from the ones contained in the history. Physical Exam Physical Exam: The patient is awake, alert and oriented 3, well developed and well nourished, normocephalic and atraumatic, lying in bed and in no acute distress. HEENT--PERRL, EOMI, mucous membranes and oropharynx mildly dry Neck--supple. No JVD. No bruits. Thyroid normal, trachea midline, no adenopathy. Heart--normal S1 and S2. No murmurs, rubs or gallops. Lungs--clear bilaterally, no respiratory distress, no accessory muscle use. Abdomen--normal bowel sounds and soft. Extremities--bilateral pitting leg edema, poor muscle tone Dermatologic--excoriation corbett on the arms Neurologic--cranial nerves II through XII grossly intact. Rheumatologic--normal range of motion. Psychiatric--normal affect. Results & Data Results & Data Vital Signs (Past 12 Hours) Vital Signs Temp Pulse Resp BP Pulse Ox O2 Del Method 09/06/23 09:00 Room Air 09/06/23 08:15 98.1 F 82 16 128/83 100 Room Air PG Care Time/CCT Total # of Minutes Spent Total Time Spent with Patient: Total time spent is greater than 50% in coordination of care (as documented) at patient's floor/unit and/or counseling patient: Coding Level of Care Code 51708 SUB INP/OBS CARE 1/25MIN Diagnoses Comfort measures only status Z51.5 Cushingoid side effect of steroids E24.2 (HFpEF) heart failure with preserved ejection fraction I50.30 Adrenal insufficiency E27.40 Anasarca R60.1 Right hip pain M25.551 Wound of sacral region S31.000A Time Spent (min) 25
[2023-09-06] MEDS ORDERED: MoRPHine SULFATE 10 MG/0.5 ML UDP PO ONE (15:15)
--- NOTE | 2023-09-06 15:21 | XRay Report ---
XR chest 1V portable CLINICAL HISTORY: cough TECHNIQUE: Single frontal radiograph of the chest was obtained. Comparison: Comparison is made to chest radiograph 09/02/2023 FINDINGS: No lines and tubes are seen. The cardiomediastinal silhouette is normal. The lungs are clear. No evid ence of pleural effusion or pneumothorax. IMPRESSION: No acute abnormalities and in particular no radiographic evidence of pneumonia. ACT 112: Negative or not required by law. Electronically signed by: Simba Mcclain M.D. 09/06/2023 3:19 PM
[2023-09-06 15:54] LABS: Hematocrit (blood only) 30.5 % (37.0-47.0); Hemoglobin 9.3 g/dl (12.0-16.0); Mean Corpuscular Hemoglobin 29.6 pg (25.0-34.0); Mean Corpuscular Hgb Conc 30.5 g/dL (32.0-36.0); Mean Corpuscular Volume 97.1 fL (80.0-100.0); Mean Platelet Volume 10.7 fL (9.4-12.4); Nucleated RBC # (auto) 0.03 K/uL (0.00-0.12); Nucleated RBC % (auto) 0.2 %; Platelet Count 225 K/uL (130-400); RDW Coefficient of Variation 21.5 % (11.5-14.5); RDW Standard Deviation 76.5 fL (36.4-46.3); Red Blood Count 3.14 M/uL (4.20-5.40); White Blood Count 12.29 K/ul (4.8-10.8)
[2023-09-06 15:57] LABS: Calcium 7.4 mg/dl (8.6-10.3); Potassium 4.6 mmol/L (3.5-5.1)
[2023-09-06 16:03] LABS: BUN Creatinine Ratio 19.7 (10-20); Creatinine Clr Calc Pharmacy 64.6 ml/min; Est GFR (African American) 100.7 ml/min; Est GFR (Non-African American) 86.9 ml/min
[2023-09-06] MEDS ORDERED: PIPERACILLIN/TAZOBACTAM 4.5 GM in DEXTROSE 5% MINI-B 100 ML IV ONE (16:30)
[2023-09-06] MEDS ORDERED: FUROSEMIDE 40 MG/4 ML VIAL IV SCH (17:00)
[2023-09-06] MEDS ORDERED: AMOXICILLIN/CLAVULANATE 875 MG TAB PO SCH (17:00)
[2023-09-06] MEDS: MIDODRINE HCL 10 MG TAB PO SCH (17:42)
[2023-09-06] MEDS: FUROSEMIDE 40 MG TAB PO SCH (17:42)
[2023-09-06] MEDS: CALCIUM 600MG + VIT D 400 IU TAB PO SCH (20:29)
[2023-09-06] MEDS ORDERED: PIPERACILLIN/TAZOBACTAM 4.5 GM in DEXTROSE 5% MINI-B 100 ML IV SCH (22:00)
[2023-09-06] MEDS ORDERED: methylPREDNISolone acetate 40 MG/ML VIAL IM ONE (23:22)
[2023-09-06] MEDS ORDERED: cefTRIAXone SODIUM 350 MG/ML IM IM ONE (23:22)
[2023-09-07] MEDS ORDERED: methylPREDNISolone 40 MG in SYRINGE 0 ML IV STA (00:56)
[2023-09-07] MEDS ORDERED: PIPERACILLIN/TAZOBACTAM 4.5 GM in DEXTROSE 5% MINI-B 100 ML IV ONE ×2 (01:00→08:00)
[2023-09-07] MEDS: ALBUMIN 25% 25 GM/100 ML VIAL IV SCH ×2 (02:03→07:48)
[2023-09-07] MEDS: PIPERACILLIN/TAZOBACTAM 4.5 GM in DEXTROSE 5% MINI-B 100 ML IV SCH ×3 (05:45→21:59)
[2023-09-07 06:35] LABS: Hematocrit (blood only) 23.1 % (37.0-47.0); Hemoglobin 6.9 g/dl (12.0-16.0); Mean Corpuscular Hemoglobin 29.4 pg (25.0-34.0); Mean Corpuscular Hgb Conc 29.9 g/dL (32.0-36.0); Mean Corpuscular Volume 98.3 fL (80.0-100.0); Mean Platelet Volume 10.5 fL (9.4-12.4); Platelet Count 185 K/uL (130-400); RDW Coefficient of Variation 21.3 % (11.5-14.5); RDW Standard Deviation 76.9 fL (36.4-46.3); Red Blood Count 2.35 M/uL (4.20-5.40); White Blood Count 9.36 K/ul (4.8-10.8)
[2023-09-07] MEDS ORDERED: SODIUM CHLORIDE 0.9% 250 ML IV PRN (06:50)
[2023-09-07 06:56] LABS: Calcium 7.5 mg/dl (8.6-10.3); Creatinine Clr Calc Pharmacy 56.6 ml/min; Est GFR (African American) 85.9 ml/min; Est GFR (Non-African American) 74.1 ml/min; Potassium 5.1 mmol/L (3.5-5.1)
[2023-09-07] MEDS: METOPROLOL SUCC 50MG EXT REL TAB PO SCH (08:34)
[2023-09-07] MEDS: MIDODRINE HCL 10 MG TAB PO SCH ×3 (08:35→17:28)
[2023-09-07] MEDS: CALCIUM 600MG + VIT D 400 IU TAB PO SCH ×2 (08:35→20:37)
[2023-09-07] MEDS: PANTOprazole 40 MG TAB PO SCH ×2 (08:35→20:37)
[2023-09-07] MEDS: FUROSEMIDE 40 MG TAB PO SCH ×2 (08:35→17:28)
[2023-09-07] MEDS: EMPAGLIFLOZIN 10 MG TAB PO SCH (08:36)
[2023-09-07] MEDS: UMECLIDINIUM/VILANTEROL 62.5/25MCG 7 PUFFS/INHALER INH SCH (08:36)
[2023-09-07] MEDS: HYDROCORTISONE 10 MG TAB PO SCH ×2 (08:36→20:36)
[2023-09-07] MEDS: FLUTICASONE FUROATE 200MCG 14 PUFFS/INHALER INH SCH (08:36)
[2023-09-07] MEDS: MoRPHine SULFATE 10 MG/0.5 ML UDP PO PRN (08:47)
[2023-09-07] MEDS: FAMOTIDINE 20 MG TAB PO SCH ×2 (09:43→20:37)
--- NOTE | 2023-09-07 11:44 | Hospitalist Progress Note ---
Date of Service September 07, 2023 Assessment & Plan (1) (HFpEF) heart failure with preserved ejection fraction: Plan: Patient has a history of congestive heart failure with preserved ejection fraction. Last 2D echo done April 2023 showed ejection fraction of 60 to 65% with grade 1 diastolic dysfunction Patient has been comfort measures only unstable yesterday 09/06/2023 when family members, the and the son decided to reverse that status. On examination, patient has anasarca Will repeat 2D echo [place] IV Lasix 40 mg twice daily Monitor input and output, daily weight (2) Adrenal insufficiency: Plan: Has been on steroids outpatient Follows up with endocrinology Will reinstitute her steroids following reversal of her comfort measures only (3) Wound of sacral region: Plan: Sacral decubitus ulcer, present on admission We will reconsult wound care Cover with empiric IV antibiotics, Zosyn Obtain wound cultures. (4) Anasarca: Plan: Anasarca most from congestive heart failure and also possibly from third spacing Continue IV Lasix 40 mg twice daily Received a dose of albumin yesterday, may repeat a dose (5) Paroxysmal atrial fibrillation: Plan: Rate is under good control Will restart her p.o. apixaban 5 mg twice daily (6) Acute UTI (urinary tract infection): Plan: Urine cultures growing Carrie Start her on fluconazole 100 mg p.o. (7) History of revision of total replacement of right hip joint: Plan: Patient is essentially bedbound Plan Patient initially was on comfort measures only however the and the son wanted the status reversed. This was done yesterday, 09/06/2023. Will continue to monitor, PT OT on board and social service she will need placement Admission and Anticipated Discharge Date Admission Date: September 02, 2023 Subjective patient seen and examined, slept better last night, denies any new complaints Review of Systems Review of Systems: All systems reviewed are negative, apart from the ones contained in the history. Physical Exam Physical Exam: The patient is awake, alert and oriented 3, lying in bed and in no acute distress. HEENT--PERRL, EOMI, mucous membranes and oropharynx mildly dry Neck--supple. No JVD. No bruits. Thyroid normal, trachea midline, no adenopathy. Heart--normal S1 and S2. No murmurs, rubs or gallops. Lungs--clear bilaterally, no respiratory distress, no accessory muscle use. Abdomen--normal bowel sounds and soft. Mild epigastric and left sided abdominal pain Extremities--anasarca, poor muscle tone Dermatologic--excoriation of skin Neurologic--cranial nerves II through XII grossly intact. Rheumatologic--normal range of motion. Psychiatric--normal affect. Results & Data Results & Data Vital Signs (Past 12 Hours) Vital Signs Temp Pulse Pulse Resp BP BP Pulse Ox 09/07/23 11:25 97.7 F 62 18 111/69 98 09/07/23 10:55 97.7 F 57 L 18 94/50 L 97 09/07/23 10:40 97.7 F 63 20 98/50 L 99 09/07/23 10:24 97.9 F 60 18 92/48 L 97 09/07/23 07:12 98.1 F 63 18 98/72 L 98 09/07/23 03:00 97.9 F 90 18 118/48 L 95 09/07/23 02:07 80/56 L 09/07/23 01:08 98 H 09/07/23 00:55 99.0 F 91 H 20 82/59 L 96 O2 Del Method 09/07/23 11:25 09/07/23 10:55 09/07/23 10:40 09/07/23 10:24 09/07/23 07:12 Room Air 09/07/23 03:00 Room Air 09/07/23 02:07 09/07/23 01:08 09/07/23 00:55 Room Air PG Care Time/CCT Total # of Minutes Spent Total Time Spent with Patient: Total time spent is greater than 50% in coordination of care (as documented) at patient's floor/unit and/or counseling patient: Coding Level of Care Code 80198 SUB INP/OBS CARE 2/35MIN Diagnoses (HFpEF) heart failure with preserved ejection fraction I50.30 Adrenal insufficiency E27.40 Wound of sacral region S31.000A Anasarca R60.1 Paroxysmal atrial fibrillation I48.0 Acute UTI (urinary tract infection) N39.0 History of revision of total replacement of right hip joint Z96.641 Time Spent (min) 35
[2023-09-07] MEDS: FLUCONAZOLE 100 MG TAB PO SCH (12:31)
[2023-09-07] MEDS ORDERED: PIPERACILLIN/TAZOBACTAM 4.5 GM in DEXTROSE 5% MINI-B 100 ML IV SCH (14:00)
[2023-09-07] MEDS: APIXABAN 5 MG TABLET PO SCH (20:37)
[2023-09-07] MEDS: ONDANSETRON 4 MG OD TAB SL PRN (20:40)
[2023-09-08] MEDS: PIPERACILLIN/TAZOBACTAM 4.5 GM in DEXTROSE 5% MINI-B 100 ML IV SCH ×3 (05:40→22:08)
[2023-09-08 07:47] LABS: BUN Creatinine Ratio 15.9 (10-20); Calcium 7.5 mg/dl (8.6-10.3); Creatinine Clr Calc Pharmacy 52.1 ml/min; Est GFR (African American) 77.7 ml/min
[2023-09-08 07:52] LABS: Hemoglobin 9.1 g/dl (12.0-16.0); Mean Corpuscular Hemoglobin 28.9 pg (25.0-34.0); Mean Corpuscular Hgb Conc 31.4 g/dL (32.0-36.0); Mean Corpuscular Volume 92.1 fL (80.0-100.0); Mean Platelet Volume 10.8 fL (9.4-12.4); Platelet Count 194 K/uL (130-400); RDW Coefficient of Variation 21.4 % (11.5-14.5); RDW Standard Deviation 70.2 fL (36.4-46.3); Red Blood Count 3.15 M/uL (4.20-5.40); White Blood Count 12.29 K/ul (4.8-10.8)
[2023-09-08] MEDS: ALBUMIN 25% 25 GM/100 ML VIAL IV SCH ×2 (08:13→10:01)
[2023-09-08] MEDS: MIDODRINE HCL 10 MG TAB PO SCH ×3 (08:15→16:45)
[2023-09-08] MEDS: APIXABAN 5 MG TABLET PO SCH ×2 (08:16→22:40)
[2023-09-08] MEDS: CALCIUM 600MG + VIT D 400 IU TAB PO SCH ×2 (08:17→22:41)
[2023-09-08] MEDS: EMPAGLIFLOZIN 10 MG TAB PO SCH (08:17)
[2023-09-08] MEDS: FAMOTIDINE 20 MG TAB PO SCH ×2 (08:18→22:40)
[2023-09-08] MEDS: FLUCONAZOLE 100 MG TAB PO SCH (08:18)
[2023-09-08] MEDS: FUROSEMIDE 40 MG/4 ML VIAL IV SCH ×2 (08:21→16:44)
[2023-09-08] MEDS: FLUTICASONE FUROATE 200MCG 14 PUFFS/INHALER INH SCH (08:21)
[2023-09-08] MEDS: PANTOprazole 40 MG TAB PO SCH ×2 (08:22→22:40)
[2023-09-08] MEDS: METOPROLOL SUCC 50MG EXT REL TAB PO SCH (08:22)
[2023-09-08] MEDS: HYDROCORTISONE 10 MG TAB PO SCH ×2 (08:22→22:40)
[2023-09-08] MEDS: UMECLIDINIUM/VILANTEROL 62.5/25MCG 7 PUFFS/INHALER INH SCH (08:23)
[2023-09-08] MEDS: MoRPHine SULFATE 10 MG/0.5 ML UDP PO PRN ×2 (08:46→16:47)
--- NOTE | 2023-09-08 11:59 | Hospitalist Progress Note ---
Date of Service September 08, 2023 Assessment & Plan (1) (HFpEF) heart failure with preserved ejection fraction: Plan: Patient has a history of congestive heart failure with preserved ejection fraction. Last 2D echo done April 2023 showed ejection fraction of 60 to 65% with grade 1 diastolic dysfunction Patient has been comfort measures only unstable yesterday 09/06/2023 when family members, the and the son decided to reverse that status. On examination, patient has anasarca Repeat 2D echo done, result pending Continue IV Lasix 40 mg twice daily Monitor input and output, daily weight Patient feels better (2) Adrenal insufficiency: Plan: Has been on steroids outpatient Follows up with endocrinology Will reinstitute her steroids following reversal of her comfort measures only (3) Wound of sacral region: Plan: Sacral decubitus ulcer, present on admission We will reconsult wound care Cover with empiric IV antibiotics, Zosyn Obtain wound cultures. (4) Anasarca: Plan: Anasarca most from congestive heart failure and also possibly from third spacing Continue IV Lasix 40 mg twice daily Received a dose of albumin yesterday, may repeat a dose Swelling is much better, especially in the arms, but the lower extremity swelling persists (5) Paroxysmal atrial fibrillation: Plan: Rate is under good control Will restart her p.o. apixaban 5 mg twice daily (6) Acute UTI (urinary tract infection): Plan: Urine cultures growing Carrie Start her on fluconazole 100 mg p.o. (7) History of revision of total replacement of right hip joint: Plan: Patient is essentially bedbound Plan Patient initially was on comfort measures only however the and the son wanted the status reversed. This was done yesterday, 09/06/2023. Will continue to monitor, PT OT on board and social service she will need valeria cement Admission and Anticipated Discharge Date Admission Date: September 02, 2023 Subjective patient seen and examined, slept better last night, denies any new complaints, the swellings on her hands are better, she is in good spirits Review of Systems Review of Systems: All systems reviewed are negative, apart from the ones contained in the history. Physical Exam Physical Exam: The patient is awake, alert and oriented 3, lying in bed and in no acute distress. HEENT--PERRL, EOMI, mucous membranes and oropharynx mildly dry Neck--supple. No JVD. No bruits. Thyroid normal, trachea midline, no adenopathy. Heart--normal S1 and S2. No murmurs, rubs or gallops. Lungs--clear bilaterally, no respiratory distress, no accessory muscle use. Abdomen--normal bowel sounds and soft. Mild epigastric and left sided abdominal pain Extremities--anasarca, poor muscle tone Dermatologic--excoriation of skin Neurologic--cranial nerves II through XII grossly intact. Rheumatologic--normal range of motion. Psychiatric--normal affect. Results & Data Results & Data Vital Signs (Past 12 Hours) Vital Signs Temp Pulse Resp BP Pulse Ox O2 Del Method 09/08/23 11:43 96.8 F L 84 18 110/60 98 Room Air 09/08/23 08:35 102/58 L 09/08/23 07:30 97.5 F L 63 18 99 Room Air 09/08/23 02:44 97.7 F 70 20 107/65 99 Room Air PG Care Time/CCT Total # of Minutes Spent Total Time Spent with Patient: Total time spent is greater than 50% in coordination of care (as documented) at patient's floor/unit and/or counseling patient: Coding Level of Care Code 13144 SUB INP/OBS CARE 2/35MIN Diagnoses (HFpEF) heart failure with preserved ejection fraction I50.30 Adrenal insufficiency E27.40 Wound of sacral region S31.000A Anasarca R60.1 Paroxysmal atrial fibrillation I48.0 Acute UTI (urinary tract infection) N39.0 History of revision of total replacement of right hip joint Z96.641 Time Spent (min) 35
--- NOTE | 2023-09-08 12:03 | XCELERA ---
[id number]
[2023-09-08] MEDS: ONDANSETRON 4 MG OD TAB SL PRN (20:45)
[2023-09-08] MEDS ORDERED: METOCLOPRAMIDE HCL INJ 5 MG/ML 2 ML VIAL IV ONE (21:32)
[2023-09-08] MEDS: oxyCODONE HCL IR 5 MG TAB (IMMEDIATE RELEASE) PO PRN (22:39)
[2023-09-09] MEDS: PIPERACILLIN/TAZOBACTAM 4.5 GM in DEXTROSE 5% MINI-B 100 ML IV SCH ×3 (05:08→20:42)
[2023-09-09] MEDS: oxyCODONE HCL IR 5 MG TAB (IMMEDIATE RELEASE) PO PRN ×3 (05:13→20:40)
[2023-09-09] MEDS: MIDODRINE HCL 10 MG TAB PO SCH ×3 (08:32→16:30)
[2023-09-09] MEDS: APIXABAN 5 MG TABLET PO SCH ×2 (08:33→20:29)
[2023-09-09] MEDS: FLUTICASONE FUROATE 200MCG 14 PUFFS/INHALER INH SCH (08:34)
[2023-09-09] MEDS: UMECLIDINIUM/VILANTEROL 62.5/25MCG 7 PUFFS/INHALER INH SCH (08:34)
[2023-09-09] MEDS: FAMOTIDINE 20 MG TAB PO SCH ×2 (08:35→20:31)
[2023-09-09] MEDS: PANTOprazole 40 MG TAB PO SCH ×2 (08:35→20:28)
[2023-09-09] MEDS: CALCIUM 600MG + VIT D 400 IU TAB PO SCH ×2 (08:35→20:31)
[2023-09-09] MEDS: FUROSEMIDE 40 MG/4 ML VIAL IV SCH ×2 (08:36→16:30)
[2023-09-09] MEDS: HYDROCORTISONE 10 MG TAB PO SCH ×2 (08:36→20:29)
[2023-09-09] MEDS: FLUCONAZOLE 100 MG TAB PO SCH (08:38)
[2023-09-09] MEDS: METOPROLOL SUCC 50MG EXT REL TAB PO SCH (08:38)
[2023-09-09] MEDS: EMPAGLIFLOZIN 10 MG TAB PO SCH (08:39)
[2023-09-09 08:47] LABS: Hematocrit (blood only) 30.3 % (37.0-47.0); Hemoglobin 9.8 g/dl (12.0-16.0); Mean Corpuscular Hemoglobin 29.3 pg (25.0-34.0); Mean Corpuscular Hgb Conc 32.3 g/dL (32.0-36.0); Mean Corpuscular Volume 90.7 fL (80.0-100.0); Mean Platelet Volume 10.4 fL (9.4-12.4); Platelet Count 214 K/uL (130-400); RDW Coefficient of Variation 21.4 % (11.5-14.5); RDW Standard Deviation 70.5 fL (36.4-46.3); Red Blood Count 3.34 M/uL (4.20-5.40); White Blood Count 12.13 K/ul (4.8-10.8)
[2023-09-09 09:12] LABS: Calcium 8.1 mg/dl (8.6-10.3); Creatinine Clr Calc Pharmacy 45.8 ml/min; Est GFR (African American) 66.6 ml/min; Est GFR (Non-African American) 57.4 ml/min; Phosphorus 2.5 mg/dl (2.5-4.9); Potassium 2.9 mmol/L (3.5-5.1)
--- NOTE | 2023-09-09 10:30 | Hospitalist Progress Note ---
Date of Service September 09, 2023 Assessment & Plan (1) (HFpEF) heart failure with preserved ejection fraction: Plan: Patient has a history of congestive heart failure with preserved ejection fraction. Last 2D echo done April 2023 showed ejection fraction of 60 to 65% with grade 1 diastolic dysfunction Patient has been comfort measures only unstable yesterday 09/06/2023 when family members, the and the son decided to reverse that status. On examination, patient has anasarca Repeat 2D echo done, hyperdynamic LV EF>70% Continue IV Lasix 40 mg twice daily Monitor input and output, daily weight Patient feels better (2) Adrenal insufficiency: Plan: Has been on steroids outpatient Follows up with endocrinology Will reinstitute her steroids following reversal of her comfort measures only (3) Wound of sacral region: Plan: Sacral decubitus ulcer, present on admission We will reconsult wound care Cover with empiric IV antibiotics, Zosyn Obtain wound cultures. (4) Anasarca: Plan: Anasarca most from congestive heart failure and also possibly from third spacing Continue IV Lasix 40 mg twice daily Received a dose of albumin yesterday, will repeat a dose Swelling is much better, especially in the arms, but the lower extremity swelling persists (5) Paroxysmal atrial fibrillation: Plan: Rate is under good control Will restart her p.o. apixaban 5 mg twice daily (6) Acute UTI (urinary tract infection): Plan: Urine cultures growing Carrie Start her on fluconazole 100 mg p.o., end date 09/11 (7) History of revision of total replacement of right hip joint: Plan: Patient is essentially bedbound (8) Hypokalemia: Plan: most likely due to diuretics will continue potassium replacement Plan Patient initially was on comfort measures only however the and the son wanted the status reversed. This was done on, 09/06/2023. Will continue to monitor, PT OT on board and social service she will need placement Admission and Anticipated Discharge Date Admission Date: September 02, 2023 Subjective patient seen and examined, in very good spirits as always, happy that her hands are no longer as swollen Review of Systems Review of Systems: All systems reviewed are negative, apart from the ones contained in the history. Physical Exam Physical Exam: The patient is awake, alert and oriented 3, lying in bed and in no acute distress. HEENT--PERRL, EOMI, mucous membranes and oropharynx mildly dry Neck--supple. No JVD. No bruits. Thyroid normal, trachea midline, no adenopathy. Heart--normal S1 and S2. No murmurs, rubs or gallops. Lungs--clear bilaterally, no respiratory distress, no accessory muscle use. Abdomen--normal bowel sounds and soft. Mild epigastric and left sided abdominal pain Extremities--anasarca, poor muscle tone Dermatologic--excoriation of skin Neurologic--cranial nerves II through XII grossly intact. Rheumatologic--normal range of motion. Psychiatric--normal affect. Results & Data Results & Data Vital Signs (Past 12 Hours) Vital Signs Temp Pulse Pulse Resp BP Pulse Ox O2 Del Method 09/09/23 08:09 97.5 F L 57 L 18 112/72 98 Room Air 09/09/23 02:14 97.7 F 58 L 18 114/68 98 Room Air 09/09/23 00:28 97.9 F 16 112/66 96 Room Air 09/09/23 00:17 55 L PG Care Time/CCT Total # of Minutes Spent Total Time Spent with Patient: Total time spent is greater than 50% in coordination of care (as documented) at patient's floor/unit and/or counseling patient: Coding Level of Care Code 54884 SUB INP/OBS CARE 2/35MIN Diagnoses (HFpEF) heart failure with preserved ejection fraction I50.30 Adrenal insufficiency E27.40 Wound of sacral region S31.000A Anasarca R60.1 Paroxysmal atrial fibrillation I48.0 Acute UTI (urinary tract infection) N39.0 History of revision of total replacement of right hip joint Z96.641 Hypokalemia E87.6 Time Spent (min) 35
[2023-09-09] MEDS: POTASSIUM CHLORIDE CRTAB 20 MEQ TABCR PO SCH (20:29)
[2023-09-09] MEDS: MELATONIN 3 MG TAB PO PRN (20:40)
[2023-09-10] MEDS: PIPERACILLIN/TAZOBACTAM 4.5 GM in DEXTROSE 5% MINI-B 100 ML IV SCH ×3 (05:46→21:00)
[2023-09-10 07:53] LABS: Hematocrit (blood only) 31.4 % (37.0-47.0); Hemoglobin 9.9 g/dl (12.0-16.0); Mean Corpuscular Hgb Conc 31.5 g/dL (32.0-36.0); Mean Corpuscular Volume 92.1 fL (80.0-100.0); Mean Platelet Volume 10.3 fL (9.4-12.4); Platelet Count 213 K/uL (130-400); RDW Coefficient of Variation 20.9 % (11.5-14.5); RDW Standard Deviation 69.5 fL (36.4-46.3); Red Blood Count 3.41 M/uL (4.20-5.40); White Blood Count 10.02 K/ul (4.8-10.8)
[2023-09-10 08:09] LABS: BUN Creatinine Ratio 13.5 (10-20); Calcium 7.8 mg/dl (8.6-10.3); Creatinine Clr Calc Pharmacy 57.2 ml/min; Est GFR (African American) 76.6 ml/min; Est GFR (Non-African American) 66.1 ml/min; Potassium 3.7 mmol/L (3.5-5.1)
[2023-09-10] MEDS: METOPROLOL SUCC 50MG EXT REL TAB PO SCH (08:49)
[2023-09-10] MEDS: CALCIUM 600MG + VIT D 400 IU TAB PO SCH ×2 (08:50→21:02)
[2023-09-10] MEDS: FLUCONAZOLE 100 MG TAB PO SCH (08:50)
[2023-09-10] MEDS: MIDODRINE HCL 10 MG TAB PO SCH ×3 (08:50→17:43)
[2023-09-10] MEDS: EMPAGLIFLOZIN 10 MG TAB PO SCH (08:50)
[2023-09-10] MEDS: FAMOTIDINE 20 MG TAB PO SCH ×2 (08:50→21:03)
[2023-09-10] MEDS: PANTOprazole 40 MG TAB PO SCH ×2 (08:51→21:03)
[2023-09-10] MEDS: APIXABAN 5 MG TABLET PO SCH ×2 (08:51→21:03)
[2023-09-10] MEDS: POTASSIUM CHLORIDE CRTAB 20 MEQ TABCR PO SCH ×2 (08:51→21:03)
[2023-09-10] MEDS: FLUTICASONE FUROATE 200MCG 14 PUFFS/INHALER INH SCH (08:52)
[2023-09-10] MEDS: FUROSEMIDE 40 MG/4 ML VIAL IV SCH ×2 (08:52→17:43)
[2023-09-10] MEDS: HYDROCORTISONE 10 MG TAB PO SCH ×2 (08:52→21:03)
[2023-09-10] MEDS: UMECLIDINIUM/VILANTEROL 62.5/25MCG 7 PUFFS/INHALER INH SCH (08:52)
[2023-09-10] MEDS: oxyCODONE HCL IR 5 MG TAB (IMMEDIATE RELEASE) PO PRN ×3 (08:59→21:01)
--- NOTE | 2023-09-10 17:14 | Hospitalist Progress Note ---
Date of Service September 10, 2023 Assessment & Plan (1) (HFpEF) heart failure with preserved ejection fraction: Plan: Chronic. No overt CHF on admission. Anasarca is probably steroid related for the most part. Repeat 2D echo done, hyperdynamic LV EF>70%. Edema has improved with Lasix diuresis. (2) Adrenal insufficiency: Plan: Prednisone dependent. Cushingoid appearance due to chronic steroid use (3) Wound of sacral region: Plan: Sacral decubitus ulcer, present on admission. Appreciate wound care assistance. Currently on intravenous Zosyn, day 4 (4) Anasarca: Plan: Anasarca due to fluid retention mostly from chronic steroid use. Diastolic CHF may be playing a role. Nevertheless, she has improved with intravenous Lasix diuresis. She has also received albumin intravenously this admission. (5) Paroxysmal atrial fibrillation: Plan: Stable. Continue current medical management and apixaban (6) Acute UTI (urinary tract infection): Plan: Fungal UTI with Carrie. Continue oral Diflucan therapy (7) History of revision of total replacement of right hip joint: Plan: Patient is essentially bedbound (8) Hypokalemia: Plan: Due to diuretic therapy. Oral potassium replacement. Serial labs Plan [facility]tic[facility]ate [facility] to [facility] when arrangements are finalized Admission and Anticipated Discharge Date Admission Date: September 02, 2023 Subjective Alert and oriented. She looks and feels better with diuresis. She remains on intravenous Zosyn for the sacral decubitus. She is on oral Diflucan for the fungal UTI. She will be transferred out of the PCU today. Placement is pending at [facility]. Venous Doppler evaluation of both legs is pending. Potassium corrected to 3.7. She remains on intravenous Lasix twice daily. Intake and output is negative as desired. Review of Systems 2 Review of Systems: Constitutional-no fever or chills ENT-no blurred vision, no double vision, no epistaxis, no sore throat Respiratory-no cough, no wheezing, no shortness of breath Cardiac-no palpitations, no chest pain, no syncope GI-no nausea, vomiting, diarrhea, melena, hematochezia -no urinary retention, no urinary incontinence, no dysuria, no hematuria Musculoskeletal-no joint pain, no muscle tenderness Skin-scattered bruising on the extremities. No rashes, no pruritus Neuro-generalized weakness. No focal deficits Psych-no depression, no anxiety Physical Exam 2 Physical Exam: General-alert and oriented x3, no fevers, no chills. Cushingoid appearance HEENT-head atraumatic and normocephalic, pupils equal and reactive to light, extraocular muscles intact Neck-no lymphadenopathy or thyromegaly, trachea midline Chest-scattered rhonchi and diminished breath sounds at the bases. No audible wheezing Cardiac-regular rate and rhythm, normal S1 and S2 Abdomen-normal bowel sounds, nontender, no hepatosplenomegaly Skinecchymotic areas all 4 extremities. Several skin tears noted, most notably dorsal aspect right hand Extremities-diffuse nonpitting edema all 4 extremities has improved with Lasix diuresis Neuro-cranial nerves II through XII intact, motor and sensory function within normal limits, strength symmetrical with generalized weakness, no focal deficits Psych-normal affect, normal mood Results & Data Results & Data Vital Signs (Past 12 Hours) Vital Signs Temp Pulse Pulse Resp BP Pulse Ox O2 Del Method 09/10/23 15:17 36.6 C 49 L 19 130/82 100 Room Air 09/10/23 11:25 36.6 C 71 18 93/63 L 97 Room Air 09/10/23 08:00 66 09/10/23 07:39 36.6 C 57 L 19 105/76 94 Room Air Laboratory Results 09/10/23 07:19 09/10/23 07:19 PG Care Time/CCT Total # of Minutes Spent Total Time Spent with Patient: Total time spent is greater than 50% in coordination of care (as documented) at patient's floor/unit and/or counseling patient: Coding Level of Care Code 24144 SUB INP/OBS CARE 3/50MIN Diagnoses (HFpEF) heart failure with preserved ejection fraction I50.30 Adrenal insufficiency E27.40 Wound of sacral region S31.000A Anasarca R60.1 Paroxysmal atrial fibrillation I48.0 Acute UTI (urinary tract infection) N39.0 History of revision of total replacement of right hip joint Z96.641 Hypokalemia E87.6
[2023-09-10] MEDS: ONDANSETRON 4 MG OD TAB SL PRN (20:58)
[2023-09-10] MEDS: MELATONIN 3 MG TAB PO PRN (21:00)
[2023-09-11] MEDS: PIPERACILLIN/TAZOBACTAM 4.5 GM in DEXTROSE 5% MINI-B 100 ML IV SCH (06:20)
[2023-09-11] MEDS: oxyCODONE HCL IR 5 MG TAB (IMMEDIATE RELEASE) PO PRN (06:23)
[2023-09-11 07:32] LABS: BUN Creatinine Ratio 13.3 (10-20); Calcium 7.8 mg/dl (8.6-10.3); Creatinine Clr Calc Pharmacy 56.2 ml/min; Est GFR (African American) 75.6 ml/min; Est GFR (Non-African American) 65.2 ml/min; Potassium 4.1 mmol/L (3.5-5.1)
[2023-09-11] MEDS: UMECLIDINIUM/VILANTEROL 62.5/25MCG 7 PUFFS/INHALER INH SCH (08:55)
[2023-09-11] MEDS: FLUTICASONE FUROATE 200MCG 14 PUFFS/INHALER INH SCH (08:55)
[2023-09-11] MEDS: FUROSEMIDE 40 MG/4 ML VIAL IV SCH (08:56)
[2023-09-11] MEDS: PANTOprazole 40 MG TAB PO SCH ×2 (08:57→20:45)
[2023-09-11] MEDS: CALCIUM 600MG + VIT D 400 IU TAB PO SCH ×2 (08:58→20:45)
[2023-09-11] MEDS: POTASSIUM CHLORIDE CRTAB 20 MEQ TABCR PO SCH (08:58)
[2023-09-11] MEDS: APIXABAN 5 MG TABLET PO SCH ×2 (08:58→20:45)
[2023-09-11] MEDS: FAMOTIDINE 20 MG TAB PO SCH ×2 (08:58→20:45)
[2023-09-11] MEDS: MIDODRINE HCL 10 MG TAB PO SCH ×3 (08:59→16:52)
[2023-09-11] MEDS: FLUCONAZOLE 100 MG TAB PO SCH (08:59)
[2023-09-11] MEDS: METOPROLOL SUCC 50MG EXT REL TAB PO SCH (08:59)
[2023-09-11] MEDS: HYDROCORTISONE 10 MG TAB PO SCH ×2 (09:00→20:45)
[2023-09-11] MEDS: EMPAGLIFLOZIN 10 MG TAB PO SCH (09:00)
--- NOTE | 2023-09-11 15:58 | Hospitalist Progress Note ---
Date of Service September 11, 2023 Assessment & Plan (1) (HFpEF) heart failure with preserved ejection fraction: Plan: Chronic. No overt CHF on admission. Anasarca is probably steroid related for the most part. Repeat 2D echo done, hyperdynamic LV EF>70%. Edema has improved with Lasix diuresis. Parenteral Lasix switched to oral dosing today, September 11 (2) Adrenal insufficiency: Plan: Prednisone dependent. Cushingoid appearance due to chronic steroid use (3) Wound of sacral region: Plan: Sacral decubitus ulcer, present on admission. Appreciate wound care assistance. Treated with intravenous Zosyn for 4 days. Zosyn has been discontinued (4) Anasarca: Plan: Anasarca due to fluid retention mostly from chronic steroid use. Diastolic CHF may be playing a role. Nevertheless, she has improved with intravenous Lasix diuresis. She has also received albumin intravenously this admission. Parenteral Lasix switched to oral dosing today, September 11 (5) Paroxysmal atrial fibrillation: Plan: Stable. Continue current medical management and apixaban (6) Acute UTI (urinary tract infection): Plan: Fungal UTI with Carrie. Continue oral Diflucan therapy . Will discontinue this tomorrow, September 12 (7) History of revision of total replacement of right hip joint: Plan: Patient is essentially bedbound (8) Hypokalemia: Plan: Due to diuretic therapy. Corrected with oral potassium replacement. Dosage down titrated today, September 11. Serial labs Plan Antic[facility]ate [facility] to [facility] when arrangements are finalized Admission and Anticipated Discharge Date Admission Date: September 02, 2023 Subjective Alert and oriented. Good spirits. She is awaiting center care placement. Parenteral Lasix has been switched to oral dosing. Zosyn has been discontinued. Will discontinue oral Diflucan tomorrow. Oral potassium replacement has been decreased. Potassium level is now up to 4.1. Venous Doppler evaluation of both legs remains pending. Review of Systems 2 Review of Systems: Constitutional-no fever or chills ENT-no blurred vision, no double vision, no epistaxis, no sore throat Respiratory-no cough, no wheezing, no shortness of breath Cardiac-no palpitations, no chest pain, no syncope GI-no nausea, vomiting, diarrhea, melena, hematochezia -no urinary retention, no urinary incontinence, no dysuria, no hematuria Musculoskeletal-no joint pain, no muscle tenderness Skin-scattered bruising on the extremities. No rashes, no pruritus Neuro-generalized weakness. No focal deficits Psych-no depression, no anxiety Physical Exam 2 Physical Exam: General-alert and oriented x3, no fevers, no chills. Cushingoid appearance HEENT-head atraumatic and normocephalic, pupils equal and reactive to light, extraocular muscles intact Neck-no lymphadenopathy or thyromegaly, trachea midline Chest-scattered rhonchi and diminished breath sounds at the bases. No audible wheezing Cardiac-regular rate and rhythm, normal S1 and S2 Abdomen-normal bowel sounds, nontender, no hepatosplenomegaly Skinecchymotic areas all 4 extremities. Several skin tears noted, most notably dorsal aspect right hand Extremities-diffuse nonpitting edema all 4 extremities has improved with Lasix diuresis Neuro-cranial nerves II through XII intact, motor and sensory function within normal limits, strength symmetrical with generalized weakness, no focal deficits Psych-normal affect, normal mood Results & Data Results & Data Vital Signs (Past 12 Hours) Vital Signs Temp Pulse Resp BP Pulse Ox O2 Del Method 09/11/23 15:18 36.6 C 56 L 19 126/70 97 Room Air 09/11/23 08:00 Room Air 09/11/23 07:20 36.6 C 57 L 18 129/82 99 Room Air Laboratory Results 09/10/23 07:19 09/11/23 06:42 PG Care Time/CCT Total # of Minutes Spent Total Time Spent with Patient: Total time spent is greater than 50% in coordination of care (as documented) at patient's floor/unit and/or counseling patient: Coding Level of Care Code 74124 SUB INP/OBS CARE 3/50MIN Diagnoses (HFpEF) heart failure with preserved ejection fraction I50.30 Adrenal insufficiency E27.40 Wound of sacral region S31.000A Anasarca R60.1 Paroxysmal atrial fibrillation I48.0 Acute UTI (urinary tract infection) N39.0 History of revision of total replacement of right hip joint Z96.641 Hypokalemia E87.6
[2023-09-11] MEDS: ONDANSETRON 4 MG OD TAB SL PRN (16:41)
[2023-09-11] MEDS: FUROSEMIDE 40 MG TAB PO SCH (16:51)
[2023-09-11] MEDS: ACETAMINOPHEN 325 MG TAB PO PRN (16:51)
[2023-09-11] MEDS: POTASSIUM CHLORIDE 10 MEQ TABCR PO SCH (20:45)
[2023-09-12 07:13] LABS: BUN Creatinine Ratio 14.7 (10-20); Calcium 8.1 mg/dl (8.6-10.3); Creatinine Clr Calc Pharmacy 53.2 ml/min; Est GFR (African American) 70.8 ml/min; Est GFR (Non-African American) 61.1 ml/min; Potassium 3.5 mmol/L (3.5-5.1)
[2023-09-12] MEDS: FAMOTIDINE 20 MG TAB PO SCH ×2 (09:13→19:54)
[2023-09-12] MEDS: METOPROLOL SUCC 50MG EXT REL TAB PO SCH (09:14)
[2023-09-12] MEDS: CALCIUM 600MG + VIT D 400 IU TAB PO SCH ×2 (09:15→19:55)
[2023-09-12] MEDS: APIXABAN 5 MG TABLET PO SCH ×2 (09:16→19:55)
[2023-09-12] MEDS: PANTOprazole 40 MG TAB PO SCH ×2 (09:16→19:54)
[2023-09-12] MEDS: POTASSIUM CHLORIDE 10 MEQ TABCR PO SCH (09:16)
[2023-09-12] MEDS: MIDODRINE HCL 10 MG TAB PO SCH ×4 (09:17→19:53)
[2023-09-12] MEDS: EMPAGLIFLOZIN 10 MG TAB PO SCH (09:17)
[2023-09-12] MEDS: FLUCONAZOLE 100 MG TAB PO SCH (09:18)
[2023-09-12] MEDS: FUROSEMIDE 40 MG TAB PO SCH ×3 (09:19→19:53)
[2023-09-12] MEDS: UMECLIDINIUM/VILANTEROL 62.5/25MCG 7 PUFFS/INHALER INH SCH (09:20)
[2023-09-12] MEDS: FLUTICASONE FUROATE 200MCG 14 PUFFS/INHALER INH SCH (09:21)
[2023-09-12] MEDS: HYDROCORTISONE 10 MG TAB PO SCH ×2 (09:22→19:53)
[2023-09-12] MEDS: ACETAMINOPHEN 325 MG TAB PO PRN ×2 (09:29→19:56)
[2023-09-12] MEDS: oxyCODONE HCL IR 5 MG TAB (IMMEDIATE RELEASE) PO PRN ×3 (09:29→19:56)
--- NOTE | 2023-09-12 16:38 | Hospitalist Progress Note ---
Date of Service September 12, 2023 Assessment & Plan (1) (HFpEF) heart failure with preserved ejection fraction: Plan: Chronic. No overt CHF on admission. Anasarca is probably steroid related for the most part. Repeat 2D echo done, hyperdynamic LV EF>70%. Edema has improved with Lasix diuresis. Parenteral Lasix switched to oral dosing on September 11 (2) Adrenal insufficiency: Plan: Prednisone dependent. Cushingoid appearance due to chronic steroid use (3) Wound of sacral region: Plan: Sacral decubitus ulcer, present on admission. Appreciate wound care assistance. Treated with intravenous Zosyn for 4 days. Zosyn has been discontinued (4) Anasarca: Plan: Anasarca due to fluid retention mostly from chronic steroid use. Diastolic CHF may be playing a role. Nevertheless, she has improved with intravenous Lasix diuresis. She has also received albumin intravenously this admission. Parenteral Lasix switched to oral dosing on September 11 (5) Paroxysmal atrial fibrillation: Plan: Stable. Continue current medical management and apixaban (6) Acute UTI (urinary tract infection): Plan: Fungal UTI with Carrie. Treated while hospitalized with oral Diflucan therapy . Discontinued today, September 12 (7) History of revision of total replacement of right hip joint: Plan: Patient is essentially bedbound (8) Hypokalemia: Plan: Due to diuretic therapy. Corrected with oral potassium replacement. Dosage up titrated today, September 13. Serial labs Plan Anticipate discharge to [facility] when arrangements are finalized. Hopefully tomorrow, September 13 Admission and Anticipated Discharge Date Admission Date: September 02, 2023 Subjective Alert and oriented. Stable overall. is at the bedside. Oral potassium dosage uptitrated. Oral Diflucan discontinued today. Review of Systems 2 Review of Systems: Constitutional-no fever or chills ENT-no blurred vision, no double vision, no epistaxis, no sore throat Respiratory-no cough, no wheezing, no shortness of breath Cardiac-no palpitations, no chest pain, no syncope GI-no nausea, vomiting, diarrhea, melena, hematochezia -no urinary retention, no urinary incontinence, no dysuria, no hematuria Musculoskeletal-no joint pain, no muscle tenderness Skin-scattered bruising on the extremities. No rashes, no pruritus Neuro-generalized weakness. No focal deficits Psych-no depression, no anxiety Physical Exam 2 Physical Exam: General-alert and oriented x3, no fevers, no chills. Cushingoid appearance HEENT-head atraumatic and normocephalic, pupils equal and reactive to light, extraocular muscles intact Neck-no lymphadenopathy or thyromegaly, trachea midline Chest-scattered rhonchi and diminished breath sounds at the bases. No audible wheezing Cardiac-regular rate and rhythm, normal S1 and S2 Abdomen-normal bowel sounds, nontender, no hepatosplenomegaly Skinecchymotic areas all 4 extremities. Several skin tears noted, most notably dorsal aspect right hand Extremities-diffuse nonpitting edema all 4 extremities has improved with Lasix diuresis Neuro-cranial nerves II through XII intact, motor and sensory function within normal limits, strength symmetrical with generalized weakness, no focal deficits Psych-normal affect, normal mood Results & Data Results & Data Vital Signs (Past 12 Hours) Vital Signs Temp Pulse Resp BP BP Pulse Ox O2 Del Method 09/12/23 15:16 36.8 C 86 18 103/70 96 Room Air 09/12/23 08:14 36.8 C 83 18 134/78 97 Room Air Laboratory Results 09/10/23 07:19 09/12/23 06:25 PG Care Time/CCT Total # of Minutes Spent Total Time Spent with Patient: Total time spent is greater than 50% in coordination of care (as documented) at patient's floor/unit and/or counseling patient: Coding Level of Care Code 02854 SUB INP/OBS CARE 3/50MIN Diagnoses (HFpEF) heart failure with preserved ejection fraction I50.30 Adrenal insufficiency E27.40 Wound of sacral region S31.000A Anasarca R60.1 Paroxysmal atrial fibrillation I48.0 Acute UTI (urinary tract infection) N39.0 History of revision of total replacement of right hip joint Z96.641 Hypokalemia E87.6
[2023-09-12] MEDS: POTASSIUM CHLORIDE CRTAB 20 MEQ TABCR PO SCH (19:54)
[2023-09-13] MEDS: ACETAMINOPHEN 325 MG TAB PO PRN ×2 (06:42→14:14)
[2023-09-13] MEDS: oxyCODONE HCL IR 5 MG TAB (IMMEDIATE RELEASE) PO PRN ×2 (06:43→14:14)
[2023-09-13 07:29] LABS: BUN Creatinine Ratio 14.2 (10-20); Calcium 8.2 mg/dl (8.6-10.3); Creatinine Clr Calc Pharmacy 37.8 ml/min; Est GFR (African American) 46.7 ml/min; Est GFR (Non-African American) 40.3 ml/min; Potassium 4.4 mmol/L (3.5-5.1)
[2023-09-13] MEDS: POTASSIUM CHLORIDE CRTAB 20 MEQ TABCR PO SCH (08:28)
[2023-09-13] MEDS: FAMOTIDINE 20 MG TAB PO SCH (08:28)
[2023-09-13] MEDS: PANTOprazole 40 MG TAB PO SCH (08:28)
[2023-09-13] MEDS: EMPAGLIFLOZIN 10 MG TAB PO SCH (08:29)
[2023-09-13] MEDS: METOPROLOL SUCC 50MG EXT REL TAB PO SCH (08:29)
[2023-09-13] MEDS: MIDODRINE HCL 10 MG TAB PO SCH (08:29)
[2023-09-13] MEDS: FUROSEMIDE 40 MG TAB PO SCH (08:29)
[2023-09-13] MEDS: APIXABAN 5 MG TABLET PO SCH (08:29)
[2023-09-13] MEDS: HYDROCORTISONE 10 MG TAB PO SCH (08:30)
[2023-09-13] MEDS: CALCIUM 600MG + VIT D 400 IU TAB PO SCH (08:30)
[2023-09-13] MEDS: UMECLIDINIUM/VILANTEROL 62.5/25MCG 7 PUFFS/INHALER INH SCH (08:48)
[2023-09-13] MEDS: FLUTICASONE FUROATE 200MCG 14 PUFFS/INHALER INH SCH (08:48)
--- NOTE | 2023-09-13 13:59 | Discharge Summary ---
Date of Service September 13, 2023 Admission HPI Per Admitting Provider Radha is a 68 year old female with a history significant for Choledocholithiasis S/P ERCP on 07/27 by Lucila, cardiomyopathy, HFpEF (LVEF of 55-60% as of 10/08/22), multi focal atrial tachycardia vs atrial fibrillation (currently on Eliquis), COPD, adrenal insufficiency (on chronic steroid therapy), carotid artery stenosis s/p left CEA (03/09/20), CVA (02/11/20), hypertension, dyslipidemia, pulmonary embolus (provoked postop hip surgery 05/2021), and CKD who presented to the [facility] ED via EMS on 09/02 for respiratory distress. Per the ED, EMS did not find the patient to be in respiratory distress but was noted to be generally weak with poor hygiene, multiple gluteal wounds, significant third spacing, and hypotensive. In the ED she was noted to be hypotensive at 84/60 and tachycardic at 110 but otherwise stable. Labs were significant for a leukocytosis of 12 with neutrophil predominance of 8.5, stable Cr but BUN of 24, chloride of 111, initial lactate of 3.0, initial high sen trop of 59, BNP of 704 (down from 847 as of 07/30). Chest xray was read (1. Hazy right basilar opacity. This may reflect pneumonia. Radiographic follow-up is recommended to ensure resolution. 2. Trace right pleural effusion.. The patient was initially given 1500mL NSS, a dose of ceftriaxone, and a dose of Vancomycin. At the time of the exam the patient was lying in bed in no acute distress with her sitting bedside, history was obtained from both. Since her last admission in July the patient has had a progressive clinical decline. She has been bedbound and has been too weak to assist with transfer in and out of her wheelchair like her baseline. Since being bedbound the patient has developed sacral ulcers/wounds and significant swelling in the BL arms and legs. Her appetite has been poor. They confirm that she is still taking BID oral steroids for her adrenal insufficiency and have not missed a recent dose, she is also taking her BID Eliquis. She denies recent fever, chills, chest pain, abd pain, nausea, vomiting, diarrhea, dysuria, hematuria, melena, and recent trauma. When asked, she states that she started to develop a worsening cough than her baseline with green mucus production. We discussed code status, she states that she wishes to be a DNR/DNI and would want her to make medical decisions for her if she cannot make them herself. While her niece provides care at home it appears that she needs signifciantly more help with all of her chronic medical conditions. The patient was recently admitted to [facility] from 07/19-07/31 for choledocholithiasis, COPD exacerbation, and gastritis. The patient was treated with steroids and antibiotics for COPD exacerbation and was weaned to RA prior to discharge. She underwent ERCP with [facility] on 07/17 with successful gallstone removal. The patient was treated with PPI for gastritis and was started on a 14 day course of Fluconazole due to biopsies from the EGD with fungal organisms present. She was supposed to follow up with General Surgery and GI for possible cholecystectomy. Update: 1948: Patient lost all IV sites, telemetry stickers have caused skin irritation and damage, we are unable to get a reliable blood pressure due to the swelling in her extremities and significant pain. Had a long discussion with the patient and her regarding goals of care. We explained that at this time she does have a bacterial pneumonia. However, at this time her chronic medical conditions have processed to the point of severe anasarca which cannot be reversed. We explained that her chronic medical conditions are not reversible at this time. Continuing to try and treat her acute medical conditions is causing her incredible pain and distress. We discussed her options which include full efforts to treat chronic and acute medical conditions or focusing on keeping her comfortable with as little distress as possible. The patient clearly stated that she understands the severity of her clinical condition and the inability to reverse her chronic medical conditions. At this time she wishes to be transitioned to comfort measures while in the hospital with plans for hospice on discharge. Her , Ramon, is also in agreement with this plan as trying to treat her numerous acute and chronic medical conditions is causing her significant pain and distress. We gave the patient the option to move forward with oral antibiotics for her pneumonia as she has lost all IV sites and does not want any additional placed. We explained the risks of continuing oral antibiotics such as GI upset and diarrhea. We also explained the risks of holding antibiotics including progression of her infection with the risk of expediting the timing of . At this time the patient would like to stop antibiotics. She will be transitioned to comfort measures. Please refer to Dr. Donald's attestation for any changes to the treatment plan Principal Diagnosis Anasarca, fungal UTI, generalized weakness Discharge Exam General-alert and oriented x3, no fevers, no chills. Cushingoid appearance HEENT-head atraumatic and normocephalic, pupils equal and reactive to light, extraocular muscles intact Neck-no lymphadenopathy or thyromegaly, trachea midline Chest-scattered rhonchi and diminished breath sounds at the bases. No audible wheezing Cardiac-regular rate and rhythm, normal S1 and S2 Abdomen-normal bowel sounds, nontender, no hepatosplenomegaly Skinecchymotic areas all 4 extremities. Several skin tears noted, most notably dorsal aspect right hand Extremities-diffuse nonpitting edema all 4 extremities has significantly improved with Lasix diuresis Neuro-cranial nerves II through XII intact, motor and sensory function within normal limits, strength symmetrical with generalized weakness, no focal deficits Psych-normal affect, normal mood Discharge Data Allergies Allergy/AdvReac Type Severity Reaction Status Date / Time No Known Allergies Allergy Verified 07/24/23 13:30 Consultations 09/02/23 16:13 ED Decision to Admit Stat 09/02/23 18:39 Consult Palliative Care Routine Ordered Studies 09/02/23 16:41 CT abd pelvis wo con Urgent 09/02/23 16:47 CT chest diagnostic wo con Urgent 09/08/23 US venous doppler LE Routine Hospital Course (1) (HFpEF) heart failure with preserved ejection fraction: Chronic. No overt CHF on admission. Anasarca is probably steroid related for the most part. Repeat 2D echo done, hyperdynamic LV EF>70%. Edema has improved with Lasix diuresis. Parenteral Lasix switched to oral dosing on September 11 (2) Adrenal insufficiency: Prednisone dependent. Cushingoid appearance due to chronic steroid use (3) Wound of sacral region: Sacral decubitus ulcer, present on admission. Appreciate wound care assistance. Treated with intravenous Zosyn for 4 days. Zosyn has been discontinued (4) Anasarca: Anasarca due to fluid retention mostly from chronic steroid use. Diastolic CHF may be playing a role. Nevertheless, she has improved with intravenous Lasix diuresis. She has also received albumin intravenously this admission. Parenteral Lasix switched to oral dosing on September 11 (5) Paroxysmal atrial fibrillation: Stable. Continue current medical management and apixaban (6) Acute UTI (urinary tract infection): Fungal UTI with Carrie. Treated while hospitalized with oral Diflucan therapy . Discontinued on September 12 (7) History of revision of total replacement of right hip joint: Patient is essentially bedbound (8) Hypokalemia: Due to diuretic therapy. Corrected with oral potassium replacement. Serial labs Plan Home today with home health services, September 13. [place]a catheter has been removed Total Time Total Time Spent Total Time Spent (In Minutes): 45 minutes Discharge Plan Discharge Items Patient Disposition: Home - Home Health Services Reason For Visit: COMFORT MEASURES Discharge Diagnosis: Anasarca due to steroid dependence, cushingoid appearance, fungal UTI, Activity: Resume your previous activity Non-emergency contact: Primary Care Provider Call non-emergency contact if: your symptoms worsen Follow-up/Referrals: Edwin Valdez MD [Primary Care Provider] - Diet: Regular and Heart Healthy Addtl Attending Provider Instructions: Take Lasix 40 mg twice daily. Take potassium twice daily along with Lasix. Hydrocortisone has been decreased to 10 mg in the morning and 5 mg in the evening Pending Studies at Discharge: No Stand-Alone Forms: My [employer], Smoking Cessation Medications and DC Order Prescriptions: New hydrocortisone [Cortef] 10 mg Tablet 5 mg PO HS Qty: 30 0RF hydrocortisone [Cortef] 10 mg Tablet 10 mg PO QAM Qty: 30 0RF potassium chloride 10 mEq Tablet,Er Particles/Crystals 10 meq PO BID Qty: 60 0RF Caltrate 600-D Plus Minerals 600 mg calcium- 800 unit-50 mg Tablet 1 tab PO BID Qty: 0 0RF Continued acetaminophen 325 mg tablet 650 mg PO Q6H PRN (Reason: pain) Qty: 30 0RF famotidine 20 mg tablet 20 mg PO BID Qty: 90 3RF pantoprazole 40 mg tablet,delayed release (DR/EC) 40 mg PO BID Qty: 90 3RF albuterol sulfate [ProAir HFA] 90 mcg/actuation HFA aerosol inhaler 2 inh INHALATION Q4H PRN (Reason: shortness of breath or wheezing) Qty: 18 5RF ondansetron 4 mg tablet,disintegrating 4 mg PO Q6H PRN (Reason: NAUSEA/VOMITING) Qty: 20 1RF atorvastatin 40 mg tablet 40 mg PO QAM Qty: 90 3RF apixaban 5 mg tablet 5 mg PO BID Qty: 60 5RF Jardiance 10 mg tablet 10 mg PO QAM Qty: 90 3RF Entresto 24-26 mg tablet 1 tab PO BID Qty: 180 3RF (DME) incontinence pad, liner, disp Pad See Rx Instructions .Route Qty: 156 6RF Rx Instructions: Blue cora pads for stress incontinence, use up to 5 daily oxycodone 10 mg tablet 10 mg PO Q6H PRN (Reason: pain) Qty: 139 0RF albuterol sulfate 2.5 mg /3 mL (0.083 %) solution for nebulization 2.5 mg inhalation QID PRN (Reason: shortness of breath or wheezing) Qty: 180 3RF Trelegy Ellipta 200-62.5-25 mcg blister with device 1 inh inhalation DAILY Qty: 60 3RF Narcan 4 mg/actuation spray,non-aerosol 4 mg intranasal DIRECTED PRN (Reason: OVERSEDATION) Rx Instructions: spray 1 dose into ONE nostril; alternate nostrils w each dose until help arrives furosemide 40 mg tablet 40 mg PO BID Qty: 60 5RF metoprolol succinate 100 mg tablet extended release 24 hr 100 mg PO QAM Medical Thc 1 dose inhalation DAILY potassium chloride 20 mEq tablet extended release 20 meq PO BID 30 Days Qty: 60 0RF Discontinued hydrocortisone 20 mg tablet 40 mg PO BID PRN (Reason: see specific directions) Qty: 90 2RF Rx Instructions: Take 40mg by mouth in the morning and 20mg by mouth 8 hours later as needed during time of stress. Discharge Orders: Discharge Order (Routine); Ordered 09/13/23 Ordered By: Lyle Palacios Admission Data Admit Date/Time: 09/02/23 16:18 Attending Provider: Lyle Palacios Admit Provider: Brandon Donald Primary Care Provider: Edwin Valdez Other Providers: [place]Care; Brandon Donald; Savannah Alford; Mora Hernandez; [facility] Coding Level of Care Code 89389 INP/OBS DISCH >30 MIN Diagnoses (HFpEF) heart failure with preserved ejection fraction I50.30 Adrenal insufficiency E27.40 Wound of sacral region S31.000A Anasarca R60.1 Paroxysmal atrial fibrillation I48.0 Acute UTI (urinary tract infection) N39.0 History of revision of total replacement of right hip joint Z96.641 Hypokalemia E87.6
[2023-09-13] MEDS ORDERED: POTASSIUM CHLORIDE 10 MEQ TABCR PO SCH (21:00)
--- NOTE | 2023-09-17 10:31 | Coding Query ---
PRESSURE ULCER DOCUMENTATION To promote full compliance with coding requirements relating to patient care, physician participation is requested in all cases of certified medical coder uncertainty. Please assist us with the question(s) below: Please specify the known or suspected type by placing an "X" within the parenthesis (x). A pressure ulcer of the Sacrum, as documented on the 09/07 Progress Note, " Sacral decubitus ulcer, present on admission". If possible, please check the box that provides the specific stage of the pressure ulcer ( ) Stage I ( ) Stage II ( ) Stage III ( ) Stage IV (X) Unstageable Thank you Luz ELIZALDE
== END 2023-09-13 16:31 | disposition home health service (06) | DRG 194 ==
LOC: ED 13:17 → EDINP 16:18 → SUATTDRO 16:18 → 3E 17:31 → 2S 09-07 00:44